=== PATIENT | female | born 1970 | race Caucasian/White ===

== ENCOUNTER 2016-11-17 17:29 | Emergency (ER) | payer MEDICARE ==
[~2016-11-17] VITALS: Ht 167.6 cm; Wt 88.5 kg
[~2016-11-17 17:29] MED LIST: AMOXICILLIN500 MG PO; ASPIRIN EC81 MG PO; AZITHROMYCIN250 MG PO; COZAAR50 MG PO; DIFLUCAN150 MG PO; IBUPROFEN600 MG PO; KEFLEX500 MG PO; LANTUS SOL100 UNIT/1 SUB-Q; LIPITOR80 MG PO; NORCO 5-325 TA1 EACH PO; NOVOLOG FL100 UNIT/1 SUB-Q; PERCOCET 5-3251 EACH PO; PLAVIX75 MG PO; PROAIR HFA8.5 GM INH; ROBAXIN-750750 MG PO; TOPROL XL25 MG PO; TRAMADOL HCL50 MG PO
[2016-11-17] MEDS ORDERED: NOVOLIN R100 UNIT/1 INJ (17:51)
[2016-11-17] MEDS ORDERED: LEVEMIR100 UNIT/1 SUB-Q ×2 (17:52→18:52)
[2016-11-17] MEDS ORDERED: NOVOLOG100 UNIT/2 SUB-Q (18:52)
[2016-11-17] MEDS ORDERED: ROBAXIN-750750 MG PO (18:56)
[2016-11-17] MEDS ORDERED: CALCIUM + VITA1 EACH PO (18:59)
[2016-11-17] MEDS ORDERED: DALIRESP500 MCG PO (19:00)
[2016-11-17] MEDS ORDERED: CEROVITE SENIO1 EACH PO (19:00)
[2016-11-17] MEDS ORDERED: METAMUCIL660 GM (19:01)
[2016-11-22] MEDS ORDERED: LIPITOR80 MG PO (02:02)
[2016-11-22] MEDS ORDERED: PLAVIX75 MG PO (02:03)
[2016-11-22] MEDS ORDERED: COZAAR25 MG PO (02:03)
[2016-11-22] MEDS ORDERED: TOPROL XL25 MG PO (02:03)
[2016-11-22] MEDS ORDERED: NITROSTAT0.4 MG SL (02:04)
[2016-11-22] MEDS ORDERED: PENICILLIN V P500 MG PO (02:20)
[2016-11-22] MEDS ORDERED: TRAMADOL HCL50 MG PO (02:20)
== END 2016-11-17 19:07 | disposition home or self-care (01) ==
LOC: ED 17:29
DX: E10.9 Type 1 diabetes mellitus without complications (principal); S16.1XXA Strain of muscle, fascia and tendon at neck level, initial encounter; I10 Essential (primary) hypertension; J45.909 Unspecified asthma, uncomplicated; F17.200 Nicotine dependence, unspecified, uncomplicated; Z95.5 Presence of coronary angioplasty implant and graft; Z90.49 Acquired absence of other specified parts of digestive tract; Z88.5 Allergy status to narcotic agent; Z88.2 Allergy status to sulfonamides; Z91.040 Latex allergy status; Z79.82 Long term (current) use of aspirin; Z79.4 Long term (current) use of insulin; Z79.899 Other long term (current) drug therapy; X50.0XXA Overexertion from strenuous movement or load, initial encounter
CPT/HCPCS: 99283

== ENCOUNTER → 2016-11-22 | Emergency (ER) | payer MEDICARE ==
[~2016-11-22] VITALS: Ht 167.6 cm; Wt 88.5 kg
[~2016-11-22] MED LIST changes: +CALCIUM + VITA1 EACH PO; +CARVEDILOL3.125 MG PO; +CEROVITE SENIO1 EACH PO; +COZAAR25 MG PO; +DALIRESP500 MCG PO; +LEVEMIR100 UNIT/1 SUB-Q; +LISINOPRIL2.5 MG PO; +METAMUCIL660 GM; +NITROSTAT0.4 MG SL; +NOVOLIN R100 UNIT/1 INJ; +NOVOLOG100 UNIT/2 SUB-Q; +PENICILLIN V P500 MG PO
== END ==
LOC: ED 01:36
DX: K02.9 Dental caries, unspecified (principal); I10 Essential (primary) hypertension; J45.909 Unspecified asthma, uncomplicated; F17.200 Nicotine dependence, unspecified, uncomplicated; Z95.5 Presence of coronary angioplasty implant and graft; Z98.51 Tubal ligation status; Z90.49 Acquired absence of other specified parts of digestive tract; Z88.5 Allergy status to narcotic agent; Z88.2 Allergy status to sulfonamides; Z91.040 Latex allergy status; Z79.4 Long term (current) use of insulin; Z79.899 Other long term (current) drug therapy; Z79.82 Long term (current) use of aspirin
CPT/HCPCS: 99283

== ENCOUNTER 2017-03-01 10:17 | Emergency (ER) | payer MEDICARE, MEDICAID ==
[~2017-03-01] VITALS: Ht 167.6 cm; Wt 88.5 kg
[~2017-03-01 10:17] MED LIST changes: -CARVEDILOL3.125 MG PO; -LISINOPRIL2.5 MG PO
[2017-03-01] MEDS ORDERED: LISINOPRIL2.5 MG PO (10:27)
[2017-03-01] MEDS ORDERED: CARVEDILOL3.125 MG PO (10:28)
[2017-03-01] MEDS ORDERED: NORCO 5-325 TA1 EACH PO (16:18)
--- NOTE | 2017-03-01 23:00 | EKG ---
[facility] [address] [facility] [place] [address] Signed Normal sinus rhythm Rightward axis Possible Inferior infarct , age undetermined Anterior infarct , age undetermined Abnormal ECG No previous ECGs available Confirmed by RADHA FOFANA MD ([id number]) on 03/01/2017 11:00:01 PM Electronically Signed By: RADHA FOFANA MD 03/01/170 PATIENT NAME: MARY MERINO Electrocardiogram DATE OF : 70 PHYSICIAN: RADHA FOFANA MD REPORT #: [id number] REPORT IS CONFIDENTIAL AND NOT TO BE RELEASED WITHOUT AUTHORIZATION
== END 2017-03-01 16:26 | disposition home or self-care (01) ==
LOC: ED 10:17
DX: R07.2 Precordial pain (principal); R91.8 Other nonspecific abnormal finding of lung field; E11.9 Type 2 diabetes mellitus without complications; I10 Essential (primary) hypertension; J45.909 Unspecified asthma, uncomplicated; I25.2 Old myocardial infarction; F17.200 Nicotine dependence, unspecified, uncomplicated; Z91.040 Latex allergy status; Z88.5 Allergy status to narcotic agent; Z88.2 Allergy status to sulfonamides; Z79.4 Long term (current) use of insulin; Z79.82 Long term (current) use of aspirin; Z79.899 Other long term (current) drug therapy
CPT/HCPCS: 36415; 71010; 71275; 80053; 83874; 84484; 85025; 85379; 93005; 93010; 96374; 96375; 96376; 99284; J2405; J3010; Q9967

== ENCOUNTER 2017-04-30 15:40 | Emergency (ER) | payer MEDICARE, MEDICAID ==
[~2017-04-30] VITALS: Ht 167.6 cm; Wt 88.5 kg
[~2017-04-30 15:40] MED LIST changes: +CARVEDILOL3.125 MG PO; +LISINOPRIL2.5 MG PO
--- OUTSIDE RECORDS SUMMARY | 2017-04-30 15:47 | XMS | Clinical Summary ---
Demographics + + + | Address | [address] | | | [place] [address] | + + + | Home Phone | | + + + | Preferred Language | Unknown | + + + | Marital Status | | + + + | Gnosticism Affiliation | PRE | + + + | Race | White | + + + | Ethnic Group | Not or | + + + Author + + + | Author | NON REVENUE LOCATIONS | + + + | Organization | NON REVENUE LOCATIONS | + + + | Address | Unknown | + + + | Phone | Unavailable | + + + Support + + + + + | Name | Relationship | Address | Phone | + + + + + | URI MERINO | ECON | [address] | | | | | [place] | | | | | [address] | | + + + + + | KELLY MERINO | ECON | Unknown | | + + + + + Care Team Providers + +------+ + | Care Grab Jack Man Name | Role | Phone | + +------+ + | Crissy Santoyo PA-C | PP | Unavailable | + +------+ + Source Comments OMAR is fully live on both [facility] and [facility] InPatient.[facility] Allergies + + + + + + | Active Allergy | Reactions | Severity | Noted | Comments | | | | | Date | | + + + + + + | Codeine | Nausea and Vomiting | | 09/18/19 | | | | | | 13 | | + + + + + + | Morphine | Nausea and Vomiting | | 09/18/19 | | | | | | 13 | | + + + + + + | Sulfa (Sulfonamide | Nausea | | 04/16/19 | | | Antibiotics) | | | 14 | | + + + + + + Current Medications + + + +---------+------+------+-------+ | Prescription | Sig. | Disp. | Refills | Star | End | Statu | | | | | | t | Date | s | | | | | | Date | | | + + + +---------+------+------+-------+ | ALBUTEROL INHL | Inhale as needed. | | | | | Activ | | | | | | | | e | + + + +---------+------+------+-------+ | gabapentin 300 mg | Take 1 capsule by | 90 | 3 | 10/2 | | Activ | | Oral | mouth three times | capsule | | 5/20 | | e | | capsuleIndications: | daily. Indications: | | | 13 | | | | Neuropathic Pain | Neuropathic Pain | | | | | | + + + +---------+------+------+-------+ | tiZANidine 2 mg | Take 1 tablet by | 40 | 0 | 11/1 | | Activ | | oral | mouth every twelve | tablet | | 3/20 | | e | | tabletIndications: | hours as needed | | | 13 | | | | Muscle Spasm | (muscle spasms). | | | | | | | | Max: 36 mg / day. | | | | | | + + + +---------+------+------+-------+ | gabapentin 100 mg | Take 1 capsule by | 60 | 0 | 02/1 | | Activ | | oral capsule | mouth three times | capsule | | 3/20 | | e | | | daily as needed. | | | 14 | | | + + + +---------+------+------+-------+ | lidocaine | Can be applied for | 2 patch | 2 | 02/1 | | Activ | | (LIDODERM) 5 %(700 | up to 18 hours a day | | | 3/20 | | e | | mg/patch) topical | on your back. | | | 14 | | | | adhesive | | | | | | | | patch,medicated | | | | | | | + + + +---------+------+------+-------+ | oxyCODONE, | Take 4 tablets by | 360 | 0 | 02/1 | | Activ | | immediate release, 5 | mouth every 8 hours | tablet | | 4/20 | | e | | mg oral | as needed for severe | | | 14 | | | | tabletIndications: | pain. | | | | | | | Neuropathic Pain | | | | | | | + + + +---------+------+------+-------+ | insulin aspart 100 | Inject under the | | | | | Activ | | unit/mL | skin (SUBC) three | | | | | e | | subcutaneous insulin | times daily before | | | | | | | pen | meals. Up to 40 | | | | | | | | units daily | | | | | | + + + +---------+------+------+-------+ | LEVEMIR 100 | | | | 08/2 | | Activ | | unit/mL subcutaneous | | | | 8/20 | | e | | solution | | | | 16 | | | + + + +---------+------+------+-------+ | atorvastatin 10 mg | | | | 09/0 | | Activ | | oral tablet | | | | 7/20 | | e | | | | | | 16 | | | + + + +---------+------+------+-------+ | ONETOUCH ULTRA | USE TO TEST BLOOD | | 10 | 08/0 | | Activ | | TEST strip | GLUCOSE 4 XD | | | 3/20 | | e | | | | | | 16 | | | + + + +---------+------+------+-------+ | DULoxetine 30 mg | | | | 09/0 | | Activ | | oral capsule,delayed | | | | 20 | | e | | release(DR/EC) | | | | 16 | | | + + + +---------+------+------+-------+ | gemfibrozil 600 mg | | | | 09/0 | | Activ | | oral tablet | | | | 720 | | e | | | | | | 16 | | | + + + +---------+------+------+-------+ | losartan 50 mg | | | | 08/3 | | Activ | | oral tablet | | | | 20 | | e | | | | | | 16 | | | + + + +---------+------+------+-------+ | metoprolol | | | | 09/0 | | Activ | | succinate 25 mg oral | | | | 7/20 | | e | | tablet extended | | | | 16 | | | | release 24 hr | | | | | | | + + + +---------+------+------+-------+ | EFFIENT 10 mg oral | | | | 09/0 | | Activ | | tablet | | | | 7/20 | | e | | | | | | 16 | | | + + + +---------+------+------+-------+ | LYRICA 75 mg oral | TK ONE C PO BID | | 5 | 08/0 | | Activ | | capsule | | | | 3/20 | | e | | | | | | 16 | | | + + + +---------+------+------+-------+ | Insulin | | | 5 | 08/0 | | Activ | | Syringe-Needle U-100 | | | | 3/20 | | e | | 1 mL 29 gauge x | | | | 16 | | | | 7/16" syringe | | | | | | | + + + +---------+------+------+-------+ Active Problems + + + | Problem | Noted Date | + + + | Disorder of SI (sacroiliac) joint | 04/16/2013 | + + + | Lumbar post-laminectomy syndrome | 02/27/2013 | + + + | Lumbar radiculopathy | 12/22/2012 | + + + Family History + + +------+ + | Medical History | Relation | Name | Comments | + + +------+ + | Allergies | Father | | | + + +------+ + | Arthritis | Father | | | + + +------+ + | Arthritis | Grandmoth | | | | | er | | | + + +------+ + | Asthma | Grandmoth | | | | | er | | | + + +------+ + | Depression | Grandmoth | | | | | er | | | + + +------+ + | Heart Disease | Grandmoth | | | | | er | | | + + +------+ + | Arthritis | Maternal | | | | | Grandmoth | | | | | er | | | + + +------+ + | Heart Disease | Maternal | | | | | Grandmoth | | | | | er | | | + + +------+ + | Hypertension | Maternal | | | | | Grandmoth | | | | | er | | | + + +------+ + | Arthritis | Mother | | | + + +------+ + | Asthma | Mother | | | + + +------+ + | Depression | Mother | | | + + +------+ + | Diabetes | Mother | | | + + +------+ + | Heart Disease | Mother | | | + + +------+ + | Hypertension | Mother | | | + + +------+ + | Thyroid | Mother | | | + + +------+ + | Allergies | Sister | | | + + +------+ + | Asthma | Sister | | | + + +------+ + | Blood Disease | Sister | | | + + +------+ + | Depression | Sister | | | + + +------+ + + +------+--------+ + | Relation | Name | Status | Comments | + +------+--------+ + | Father | | | | + +------+--------+ + | Grandmother | | | | + +------+--------+ + | Maternal Grandmother | | | | + +------+--------+ + | Mother | | | | + +------+--------+ + | Sister | | | | + +------+--------+ + Social History + + + +--------+------+ | Tobacco Use | Types | Packs/Day | Years | Date | | | | | Used | | + + + +--------+------+ | Current Every Day | Cigarettes | 0.5 | 20 | | | Smoker | | | | | + + + +--------+------+ + +---+---+---+ | Smokeless Tobacco: | | | | | Never Used | | | | + +---+---+---+ + + +---------+ + | Alcohol Use | Drinks/We | oz/Week | Comments | | | ek | | | + + +---------+ + | No | 0 | 0.0 | | | | Standard | | | | | drinks or | | | | | | | | | | equivalen | | | | | t | | | + + +---------+ + + + + | Sex Assigned at | Date Recorded | | | | + + + | Not on file | | + + + Last Filed Vital Signs + + + + | Vital Sign | Reading | Time Taken | + + + + | Blood Pressure | 118/78 | 11/10/2015 3:55 PM PDT | + + + + | Pulse | 78 | 11/10/2015 3:55 PM PDT | + + + + | Temperature | 36.7 C (98.1 F) | 11/10/2015 3:55 PM PDT | + + + + | Respiratory Rate | 20 | 04/30/2013 2:25 PM PST | + + + + | Oxygen Saturation | 98% | 04/30/2013 2:25 PM PST | + + + + | Inhaled Oxygen | - | - | | Concentration | | | + + + + | Weight | 91.6 kg (202 lb) | 11/10/2015 3:55 PM PDT | + + + + | Height | 167.6 cm (5' 6") | 11/10/2015 3:55 PM PDT | + + + + | Body Mass Index | 32.6 | 11/10/2015 3:55 PM PDT | + + + + Plan of Treatment + + + + + | Health Maintenance | Due Date | Last Done | Comments | + + + + + | INFLUENZA VACCINE | | | | | (FLU SHOT) | 7 | | | + + + + + Implants + +------+--------+ +--------+--------+--------+ | Implanted | Type | Area | Manufacture | Device | Expira | Model | | | | | r | | tion | / | | | | | | Identi | Date | Serial | | | | | | fier | | / Lot | + +------+--------+ +--------+--------+--------+ | BimodalImplanted: Qty: 1 on | | N/A: | BALWINDER | | 01/01/ | 2101-1 | | 12/23/2012 by Sivakumar Tanner | | Spine | | | 2013 | 905 / | | MD David | | | | | | /[id number] | | | | | | | | 014 | + +------+--------+ +--------+--------+--------+ | Vitoss BimodalImplanted: Qty: | | N/A: | BALWINDER | | 03/03/ | 2101-1 | | 1 on 12/23/2012 by Antonio, | | Spine | | | 2013 | 910 / | | Adama Rojo MD | | | | | | /[id number] | | | | | | | | 008 | + +------+--------+ +--------+--------+--------+ | Aria [id number] | | Bilate | BALWINDER | | | [id number] | | DegreeImplanted: Qty: 1 on | | ral: | | | | / | | 12/23/2012 by Adama Alvarez, | | Neck | | | | | | MD | | | | | | | + +------+--------+ +--------+--------+--------+ | Screw Renetta 3 Ti Polyaxial 7.5 | | N/A: | BALWINDER | | | [id number] | | X 35 Mm - [id number]: | | Spine | | | | 535 / | | Qty: 1 on 12/23/2012 by | | | | | | / | | Adama Alvarez MD | | | | | | | + +------+--------+ +--------+--------+--------+ | Screw Renetta 3 Ti Polyaxial 6.5 | | N/A: | BALWINDER | | | [id number] | | X 45 Mm - [id number]: | | Spine | | | | 545 / | | Qty: 1 on 12/23/2012 by | | | | | | / | | Adama Alvarez MD | | | | | | | + +------+--------+ +--------+--------+--------+ | Screw Renetta 3 Ti Polyaxial 6.5 | | N/A: | BALWINDER | | | [id number] | | X 40 Mm - [id number]: | | Spine | | | | 540 / | | Qty: 3 on 12/23/2012 by | | | | | | / | | Adama Alvarez MD | | | | | | | + +------+--------+ +--------+--------+--------+ | Screw Renetta 3 Ti Polyaxial 6.5 | | N/A: | BALWINDER | | | [id number] | | X 35 Mm - [id number]: | | Spine | | | | 535 / | | Qty: 1 on 12/23/2012 by | | | | | | / | | Adama Alvarez MD | | | | | | | + +------+--------+ +--------+--------+--------+ | Screw Renetta 3 Ti Polyaxial 4.5 | | N/A: | BALWINDER | | | [id number] | | X 40 Mm - [id number]: | | Spine | | | | 540 / | | Qty: 2 on 12/23/2012 by | | | | | | / | | Adama Alvarez MD | | | | | | | + +------+--------+ +--------+--------+--------+ | Julio Cesar Renetta 3 Rad 6 X 90mm - | | N/A: | BALWINDER | | | [id number] | | [id number]: Qty: 2 on | | Spine | | | | 90 / / | | 12/23/2012 by Adama Alvarez, | | | | | | | | | | | | | | | + +------+--------+ +--------+--------+--------+ | Cap Renetta 3 Ti Calixto - | | | BALWINDER | | | [id number] | | [id number]: Amauriy: 8 on | | | | | | 00 / / | | 12/23/2012 by Adama Alvarez, | | | | | | | | MD | | | | | | | + +------+--------+ +--------+--------+--------+ Results Not on filefrom Last 3 Months
--- OUTSIDE RECORDS SUMMARY | 2017-04-30 15:47 | XMS | Clinical Summary ---
Demographics + + + | Address | [address] | | | [place] [address] | + + + | Home Phone | | + + + | Preferred Language | Unknown | + + + | Marital Status | | + + + | Mandaeism Affiliation | PRE | + + + [...] | URI MERINO | ECON | [address] | | | | | [place] | | | | | [address] | | + + + + + | KELLY MERINO | ECON | Unknown | | + + + + + Care Team Providers + +------+ + | Care Rail Splitter Name | Role | Phone | + +------+ + | Crissy Santoyo PA-C | PP | Unavailable | + +------+ + Source Comments [facility] and [facility] In[facility] Allergies + + + + + + [...] 008 | + +------+--------+ +--------+--------+--------+ | Aria [id number] | | Bilate | BALWINDER | | | [id number] | | DegreeImplanted: Qty: 1 on | | ral: | | | | / | | 12/23/2012 by Adama Alvarez, | | Neck | | | | | | MD | | | | | | | + +------+--------+ +--------+--------+--------+ | Screw Renetta 3 Ti Polyaxial 7.5 | | N/A: | BALWINDER | | | [id number] | | X 35 Mm - [id number]: | | Spine | | | | 535 / | | Qty: 1 on 12/23/2012 by | | | | | | / | | Adama Alvarez MD | | | | | | | + +------+--------+ +--------+--------+--------+ | Screw Renetta 3 Ti Polyaxial 6.5 | | N/A: | BALWINDER | | | [id number] | | X 45 Mm - [id number]: | | Spine | | | | 545 / | | Qty: 1 on 12/23/2012 by | | | | | | / | | Adama Alvarez MD | | | | | | | + +------+--------+ +--------+--------+--------+ | Screw Renetta 3 Ti Polyaxial 6.5 | | N/A: | BALWINDER | | | [id number] | | X 40 Mm - [id number]: | | Spine | | | | 540 / | | Qty: 3 on 12/23/2012 by | | | | | | / | | Adama Alvarez MD | | | | | | | + +------+--------+ +--------+--------+--------+ | Screw Renetta 3 Ti Polyaxial 6.5 | | N/A: | BALWINDER | | | [id number] | | X 35 Mm - [id number]: | | Spine | | | | 535 / | | Qty: 1 on 12/23/2012 by | | | | | | / | | Adama Alvarez MD | | | | | | | + +------+--------+ +--------+--------+--------+ | Screw Renetta 3 Ti Polyaxial 4.5 | | N/A: | BALWINDER | | | [id number] | | X 40 Mm - [id number]: | | Spine | | | | 540 / | | Qty: 2 on 12/23/2012 by | | | | | | / | | Adama Alvarez MD | | | | | | | + +------+--------+ +--------+--------+--------+ | Julio Cesar Renetta 3 Rad 6 X 90mm - | | N/A: | BALWINDER | | | [id number] | | [id number]: Qty: 2 on | | Spine | | | | 90 / / | | 12/23/2012 by Adama Alvarez, | | | | | | | | | | | | | | | + +------+--------+ +--------+--------+--------+ | Cap Renetta 3 Ti Calixto - | | | BALWINDER | | | [id number] | | [id number]: Amauriy: 8 on | | | | | | 00 / / | | 12/23/2012 by Adama Alvarez, | | | | | | | | MD | | | | | | | + +------+--------+ +--------+--------+--------+ Results Not on filefrom Last 3 Months
[2017-04-30] MEDS ORDERED: COZAAR25 MG PO (16:10)
[2017-04-30] MEDS ORDERED: XANAX0.5 MG PO (16:23)
[2017-04-30] MEDS ORDERED: NORCO 10-325 T1 EACH PO (16:23)
== END 2017-04-30 16:28 | disposition home or self-care (01) ==
LOC: ED 15:40
DX: F41.9 Anxiety disorder, unspecified (principal); G47.00 Insomnia, unspecified; E11.9 Type 2 diabetes mellitus without complications; I10 Essential (primary) hypertension; F17.200 Nicotine dependence, unspecified, uncomplicated; Z88.8 Allergy status to other drugs, medicaments and biological substances; Z91.040 Latex allergy status; Z88.5 Allergy status to narcotic agent; Z88.2 Allergy status to sulfonamides; Z79.4 Long term (current) use of insulin; Z79.82 Long term (current) use of aspirin; Z79.899 Other long term (current) drug therapy
CPT/HCPCS: 99283

== ENCOUNTER 2017-09-04 11:23 | Emergency (ER) | payer MEDICARE, MEDICAID ==
[~2017-09-04] VITALS: Ht 167.6 cm; Wt 88.5 kg
[~2017-09-04 11:23] MED LIST changes: +NORCO 10-325 T1 EACH PO; +XANAX0.5 MG PO
[2017-09-04] MEDS ORDERED: CILOXAN5 ML OD (12:35)
== END 2017-09-04 12:44 | disposition home or self-care (01) ==
LOC: ED 11:23
DX: H10.9 Unspecified conjunctivitis (principal); E11.9 Type 2 diabetes mellitus without complications; I10 Essential (primary) hypertension; J45.909 Unspecified asthma, uncomplicated; I25.2 Old myocardial infarction; Z87.891 Personal history of nicotine dependence; Z91.040 Latex allergy status; Z88.8 Allergy status to other drugs, medicaments and biological substances; Z88.5 Allergy status to narcotic agent; Z88.2 Allergy status to sulfonamides; Z79.4 Long term (current) use of insulin
CPT/HCPCS: 99283

== ENCOUNTER 2017-10-14 04:59 | Emergency (ER) | payer MEDICARE, MEDICAID ==
[~2017-10-14] VITALS: Ht 167.6 cm; Wt 88.5 kg
--- OUTSIDE RECORDS SUMMARY | ~2017-10-14 | XMS | Clinical Summary ---
Demographics + + + | Address | [address] | | | [place] [address] | + + + | Home Phone | | + + + | Preferred Language | Unknown | + + + | Marital Status | | + + + | Jew Affiliation | Unknown | + + + | Race | Unknown | + + + | Ethnic Group | Unknown | + + + Author + + + | Author | [facility] | | | and [place] | + + + | Organization | [facility] | | | and [place] | + + + | Address | Unknown | + + + | Phone | Unavailable | + + + Support + + + + + | Name | Relationship | Address | Phone | + + + + + | Dustin Merino | ECON | [address] | | | | | Apt [place] | | | | | [address] | | + + + + + | Bebe Merino | ECON | Unknown | + | + + + + + Care Team Providers + +------+ + | Care Slime Plant Operator Name | Role | Phone | + +------+ + | Ki Senior NP | PP | | + +------+ + Allergies + + + + + + | Active Allergy | Reactions | Severity | Noted | Comments | | | | | Date | | + + + + + + | Codeine | | | 02/14/20 | | | | | | 17 | | + + + + + + | Latex | Sensitivity | Low | 02/14/20 | | | | | | 17 | | + + + + + + | Sulfa Antibiotics | | | 02/14/20 | | | | | | 17 | | + + + + + + Current Medications + + +--------+---------+------+------+-------+ | Prescription | Sig. | Disp. | Refills | Star | End | Statu | | | | | | t | Date | s | | | | | | Date | | | + + +--------+---------+------+------+-------+ | insulin aspart | Inject 28 Units | | | | | Activ | | (NOVOLOG) 100 | under the skin 3 | | | | | e | | units/mL injection | times daily (before | | | | | | | | meals). | | | | | | + + +--------+---------+------+------+-------+ | insulin detemir | Inject 32 Units | | | | | Activ | | (LEVEMIR) 100 | under the skin 2 | | | | | e | | units/mL injection | times daily. | | | | | | | (vial) | | | | | | | + + +--------+---------+------+------+-------+ | tiZANidine | Take 4 mg by mouth 3 | | | | | Activ | | (ZANAFLEX) 4 mg | times daily as | | | | | e | | tablet | needed for Muscle | | | | | | | | spasms. | | | | | | + + +--------+---------+------+------+-------+ | aspirin 81 mg EC | Take 81 mg by mouth | | | | | Activ | | tablet | Daily. | | | | | e | + + +--------+---------+------+------+-------+ | oxyCODONE 10 MG | Take 10 mg by mouth | | | | | Activ | | TABS | every 6 hours as | | | | | e | | | needed for Pain. | | | | | | + + +--------+---------+------+------+-------+ | carvedilol (COREG) | Take 1 tablet by | 60 | 1 | 12/1 | | Activ | | 3.125 mg tablet | mouth 2 times daily | tablet | | 5/20 | | e | | | (with breakfast & | | | 17 | | | | | dinner). | | | | | | + + +--------+---------+------+------+-------+ | clopidogrel | Take 1 tablet by | 30 | 0 | 12/1 | | Activ | | (PLAVIX) 75 mg | mouth Daily. | tablet | | 6/20 | | e | | tablet | | | | 17 | | | + + +--------+---------+------+------+-------+ | lisinopril | Take 1 tablet by | 30 | 1 | 12/1 | | Activ | | (PRINIVIL,ZESTRIL) | mouth Daily. | tablet | | 6/20 | | e | | 2.5 MG tablet | | | | 17 | | | + + +--------+---------+------+------+-------+ | nitroglycerin | Place 1 tablet under | 20 | 0 | 12/1 | | Activ | | (NITROSTAT) 0.4 mg | the tongue every 5 | tablet | | 5/20 | | e | | SL tablet | minutes as needed | | | 17 | | | | | for Chest pain. | | | | | | + + +--------+---------+------+------+-------+ | atorvaSTATin | Take 1 tablet by | | | 12/1 | | Activ | | (LIPITOR) 40 mg | mouth nightly. | | | 5/20 | | e | | tablet | | | | 17 | | | + + +--------+---------+------+------+-------+ Active Problems + + + | Problem | Noted Date | + + + | ST elevation myocardial infarction involving left anterior | 02/13/2017 | | descending (LAD) coronary artery (HCC) | | + + + | Chest pain at rest | 02/13/2017 | + + + | Elevated troponin | 02/13/2017 | + + + | Type 2 diabetes mellitus with other specified complication (HCC) | 02/13/2017 | + + + | Essential hypertension | 02/13/2017 | + + + Social History + +-------+ [...] + + + | Blood Pressure | 103/65 | 02/15/2017720 PST | + + + + | Pulse | 84 | 02/15/2017720 PST | + + + + | Temperature | 36.3 C (97.3 F) | 02/15/20171130 PST | + + + + | Respiratory Rate | 18 | 02/15/20171130 PST | + + + + | Oxygen Saturation | 94% | 02/15/2017720 PST | + + + + | Inhaled Oxygen | - | - | | Concentration | | | + + + + | Weight | 91.8 kg (202 lb 6.1 | 02/15/2017599 PST | | | oz) | | + + + + | Height | 167.6 cm (5' 6") | 02/14/2017 1403 PST | + + + + | Body Mass Index | 32.67 | 02/15/2017599 PST | + + + + Plan of Treatment + + + + + | Health Maintenance | Due Date | Last Done | Comments | + + + + + | Diabetic Eye Exam | | | | | (Bi-Annually) | 9 | | | + + + + + | Diabetic Foot Exam | | | | | | 9 | | | + + + + + | Vaccine: | | | | | Dtap/Tdap/Td (1 - | 0 | | | | Tdap) | | | | + + + + + | Cervical Cancer | | | | | Screening (Pap) | 1 | | | + + + + + | Hemoglobin A1c Q3 | | 02/14/2017 | | | Months | 8 | | | + + + + + | Vaccine: Influenza | | | | | (#1) | 8 | | | + + + + + | Vaccine: | Completed | 06/24/2013 | | | Pneumococcal 19-64 | | | | | (PPSV23 only) Medium | | | | | Risk | | | | + + + + + Results Not on filefrom Last 3 Months Insurance + +--------+ +--------+ +---------+ | Payer | Benefi | Subscriber | Type | Phone | Address | | | t Plan | ID | | | | | | / | | | | | | | Group | | | | | + +--------+ +--------+ +---------+ | MEDICARE | MEDICA | [id number] | Medica | [phone] | | | RE | | re | [phone] | | | | PART A | | | | | | | AND B | | | | | + +--------+ +--------+ +---------+ | [place] | MEDICA | [id number] | Medica | [phone] | | | ID | | id | [phone] | | | | [place] | | | | | + +--------+ +--------+ +---------+ + +--------+ +--------+ + + | Guarantor Name | Accoun | Relation to | Date | Phone | Billing Address | | | t Type | Patient | of | | | | | | | | | | + +--------+ +--------+ + + | MARY MERINO | Person | Self [birth year] Home: | [address] | | | al/Fam | | 1971 | [phone] [address] [place], | | | [place] | | | [address] | [place] [address] | + +--------+ +--------+ + +
--- OUTSIDE RECORDS SUMMARY | ~2017-10-14 | XMS | Encounter Summary ---
Demographics + + + | Address | [address] | | | [place] [address] | + + + | Home Phone | | + + + | Preferred Language | Unknown | + + + | Marital Status | | + + + | Jehovah'S Witness Affiliation | PRE | + + + | Race | White | + + + | Ethnic Group | Not or | + + + Author + + + | Author | [facility] | + + + | Organization | [facility] | + + + | Address | Unknown | + + + | Phone | Unavailable | + + + Support + + + + + | Name | Relationship | Address | Phone | + + + + + | URI MERINO | ECON | [address] | | | | | #[address] | | | | | [address] | | + + + + + | KELLY MERINO | ECON | Unknown | | + + + + + Care Team Providers + +------+ + | Care Occupational Therapy Professor Name | Role | Phone | + +------+ + | Yuriy Cardenas PA-C | PCP | | + +------+ + Reason for Visit + + + | Reason | Comments | + + + | DM - Diabetes | | | mellitus | | + + + Encounter Details +--------+ + + + + | Date | Type | Department | Care Team | Description | +--------+ + + + + | 10/08/ | Telephone | [facility] - [facility] | Yuriy Cardenas, | DM - Diabetes | | 2018 | | Medicine at | PA-C [address] | mellitus | | | | [place] [address] | | | | | [address] [place] | [place], [place] | | | | | [place], [place] | [address] | | | | | [address] | [phone] | | | | | [phone] | | | +--------+ + + + [...] on file | | + + + as of this encounter Plan of Treatment +--------+---------+ + + + | Date | Type | Specialty | Care Team | Description | +--------+---------+ + + + | 10/25/ | Office | Hematology & | Kirk Sawyer, | | | 2017 | Visit | Oncology | [address] | | | | | | [place] | | | | | | [address] | | | | | | [phone] | | | | | | | | +--------+---------+ + + + | 11/01/ | Office | Cardiology | Jefferson Guerra MD | | | 2017 | Visit | | [address] | | | | | | [address] | | | | | | [place] | | | | | | [address] | | | | | | [phone] | | | | | | | | +--------+---------+ + + + as of this encounter Visit Diagnoses Not on filein this encounter"
--- OUTSIDE RECORDS SUMMARY | ~2017-10-14 | XMS | Encounter Summary ---
Demographics + + + | Address | [address] | | | [place] [address] | + + + | Home Phone | | + + + | Preferred Language | Unknown | + + + | Marital Status | | + + + | Hoahaoism Affiliation | PRE | + + + | Race | White | + + + | Ethnic Group | Not or | + + + Author + + + | Author | [facility] | + + + | Organization | [facility] | + + + | Address | Unknown | + + + | Phone | Unavailable | + + + Support + + + + + | Name | Relationship | Address | Phone | + + + + + | URI MERINO | ECON | [address] | | | | | #[address] | | | | | [address] | | + + + + + | KELLY MERINO | ECON | Unknown | | + + + + + Care Team Providers + +------+ + | Care Playground Worker Name | Role | Phone | + +------+ + | Yuriy Cardenas PA-C | PCP | | + +------+ + Reason for Visit + + + | Reason | Comments | + + + | Car Gen Record | | | Review | | + + + Encounter Details +--------+ + + + + | Date | Type | Department | Care Team | Description | +--------+ + + + + | 09/26/ | Abstract | Cardiology General | Unknown . | Car Gen Record | | 2018 | | at [facility] [address] | | Review | | | | Robert Faiza Mailcode: | | | | | | [facility] | | | | | | [facility], | | | | | | 9th Floor [place], | | | | | | [place] [address] | | | | | | [phone] | | | +--------+ + + + [...] + + + as of this encounter Progress Notes Linda Bethea - 09/26/2017 3:45 PM PDTFormatting of this note may be different from the orig inal. General Cardiology New Patient Record Check List Procedure Where/Date Date requested Report received? Y/N, Where? Imaging received? CD/ IMPAX/Not Available Comments Referring Provider notes PCP N/A Referral Last EKG (REPORT ONLY) Note: Tracings needed if being seen for abnormal ECG [place] 07/2017 Epic N/A Last Echo images and report [facility] 06/2017 Attached Last Stress Test images and report n/a n/a Last Cardiac Catheterization images and report Kris Campos 06/2013 Cew Last Holter or Event monitor report only n/a n/a N/A Labs (BMP, Lipids, TSH, Hemoglobin A1C in last 6 months) [facility] 07/2017 attached N/A Last Device Check (schedule device check if due) n/a n/a N/A Last Cardiac MRI report and images if available n/a n/a Cardiac CTA report and images if available n/a n/a Patient Preferred Lab N/A N/A N/A Additional Comments: in this encounter Plan of Treatment +--------+---------+ + + + | Date | Type | Specialty | Care Team | Description | +--------+---------+ + + + | 10/25/ | Office | Hematology & | Kirk Sawyer, | | | 2017 | Visit | Oncology | MD [address] | | | | | | [place], [place] | | | | | | [address] | | | | | | [phone] | | | | | | | | +--------+---------+ + + + | 11/01/ | Office | Cardiology | Jefferson Guerra MD | | | 2017 | Visit | | [address] | | | | | | [address] | | | | | | [place], [place] | | | | | | [address] | | | | | | [phone] | | | | | | | | +--------+---------+ + + + as of this encounter Visit Diagnoses Not on filein this encounter"
--- OUTSIDE RECORDS SUMMARY | ~2017-10-14 | XMS | Clinical Summary ---
Demographics + + + | Address | [address] | | | [place] [address] | + + + | Home Phone | | + + + | Preferred Language | Unknown | + + + | Marital Status | | + + + | Yarsanism Affiliation | 1013 | + + + | Race | Unknown | + + + | Ethnic Group | Unknown | + + + Author + + + | Author | [facility] | + + + | Organization | [facility] | + + + | Address | Unknown | + + + | Phone | Unavailable | + + + Support + + + + + | Name | Relationship | Address | Phone | + + + + + | Dustin Merino | ECON | Unknown | | + + + + + | Mary Merino | ECON | [address] | | | | | [place] | | | | | [address] | | + + + + + | Arden Merino | ECON | Unknown | | + + + + + Care Team Providers + +------+ + | Care Boat Mechanic Name | Role | Phone | + +------+ + | Yuriy Cardenas PA-C | PP | | + +------+ + Allergies + + + + + + | Active Allergy | Reactions | Severity | Noted | Comments | | | | | Date | | + + + + + + | Codeine | Nausea and Vomiting | Low | 12/21/19 | | | | | | 15 | | + + + + + + | Latex | Hives, Shortness of | High | 04/25/19 | Blisters | | | Breath | | 15 | | + + + + + + | Lisinopril | Cough | Low | 03/13/19 | | | | | | 18 | | + + + + + + | Morphine | Nausea and Vomiting | Low | 10/31/19 | | | | | | 13 | | + + + + + + | Sulfa Antibiotics | Rash | Medium | 12/21/19 | | | | | | 15 | | + + + + + + Current Medications + + +---------+---------+------+------+-------+ | Prescription | Sig. | Disp. | Refills | Star | End | Statu | | | | | | t | Date | s | | | | | | Date | | | + + +---------+---------+------+------+-------+ | aspirin 81 MG | Take 81 mg by mouth | | | | | Activ | | tablet | daily. Last dose | | | | | e | | | Saturday due to | | | | | | | | lung biopsy today | | | | | | + + +---------+---------+------+------+-------+ | albuterol | Inhale 2 puffs into | | | | | Activ | | (PROVENTIL | the lungs every 4 | | | | | e | | HFA;VENTOLIN HFA) | (four) hours as | | | | | | | 108 (90 BASE) | needed for Wheezing. | | | | | | | MCG/ACT inhaler | | | | | | | + + +---------+---------+------+------+-------+ | pregabalin | Take 75 mg by mouth | | | | | Activ | | (LYRICA) 75 MG | 3 (three) times | | | | | e | | capsule | daily. | | | | | | + + +---------+---------+------+------+-------+ | nitroGLYCERIN | Place 1 tablet under | 90 | 0 | 05/2 | | Activ | | (NITROSTAT) 0.4 MG | the tongue every 5 | tablet | | 4/20 | | e | | SL tablet | (five) minutes as | | | 17 | | | | | needed for Chest | | | | | | | | pain. | | | | | | + + +---------+---------+------+------+-------+ | metoprolol | Take 1 tablet by | 30 | 11 | 01/1 | 01/ | Activ | | (TOPROL-XL) 25 MG 24 | mouth nightly. | tablet | | 0/20 | 0/20 | e | | hr tablet | | | | 18 | 19 | | + + +---------+---------+------+------+-------+ | clopidogrel | Take 1 tablet by | 30 | 11 | 01/1 | | Activ | | (PLAVIX) 75 MG | mouth daily. | tablet | | 0/20 | | e | | tablet | | | | 18 | | | + + +---------+---------+------+------+-------+ | gemfibrozil | Take 1 tablet by | 60 | 11 | 01/1 | 01/1 | Activ | | (LOPID) 600 MG | mouth 2 (two) times | tablet | | 0/20 | 0/20 | e | | tablet | daily before meals. | | | 18 | 19 | | + + +---------+---------+------+------+-------+ | potassium chloride | Take 1 capsule by | 30 | 11 | 01/1 | 01/1 | Activ | | (MICRO-K) 10 MEQ CR | mouth daily. | capsule | | 0/20 | 0/20 | e | | capsule | | | | 18 | 19 | | + + +---------+---------+------+------+-------+ | isosorbide | Take 1 tablet by | 30 | 11 | 04/0 | 04/0 | Activ | | mononitrate (IMDUR) | mouth daily. TO | tablet | | 2/20 | 2/20 | e | | 60 MG 24 hr | REPLACE IMDUR 30 MG | | | 18 | 19 | | | tabletIndications: | | | | | | | | Coronary artery | | | | | | | | disease involving | | | | | | | | sitka coronary | | | | | | | | artery of [place] | | | | | | | | heart with angina | | | | | | | | pectoris (HCC) | | | | | | | + + +---------+---------+------+------+-------+ | furosemide (LASIX) | Take 1 tablet by | 6 | 0 | 05/0 | | Activ | | 20 MG tablet | mouth 2 (two) times | tablet | | 4/20 | | e | | | daily for 3 days. | | | 18 | | | + + +---------+---------+------+------+-------+ | potassium chloride | Take 2 tablets by | 18 | 0 | 05/0 | | Activ | | (K-DUR) 10 MEQ | mouth 2 times per | tablet | | 1/20 | | e | | tablet | day for first 3 | | | 18 | | | | | days, then 1 tablet | | | | | | | | by mouth 2 times per | | | | | | | | day for the next 3 | | | | | | | | days then stop | | | | | | + + +---------+---------+------+------+-------+ | traMADol (ULTRAM) | Take 1 tablet by | 30 | 0 | 05/0 | | Activ | | 50 MG tablet | mouth every 4 (four) | tablet | | 1/20 | | e | | | hours as needed. | | | 18 | | | + + +---------+---------+------+------+-------+ | insulin detemir | Inject 40 Units into | 10 mL | 0 | 05/0 | | Activ | | (LEVEMIR) 100 | the skin nightly. | | | 1/20 | | e | | UNIT/ML injection | | | | 18 | | | + + +---------+---------+------+------+-------+ | insulin lispro, | Inject 0-14 Units | 10 mL | 0 | 05/0 | 05/0 | Activ | | human, (HUMALOG) 100 | into the skin 3 | | | 1/20 | 1/20 | e | | UNIT/ML injection | (three) times daily | | | 18 | 19 | | | | before meals. High | | | | | | | | Dose AC Insulin | | | | | | | | Sliding ScaleBlood | | | | | | | | Glucose High | | | | | | | | DoseLess than | | | | | | | | 70Initiate | | | | | | | | Hypoglycemia | | | | | | | | [id number] 0 | | | | | | | | Fwsew290-8042 | | | | | | | | Iyplx269-4753 | | | | | | | | Rjviu028-5453 | | | | | | | | Biodc489-2349 | | | | | | | | [id number] | | | | | | | | Jpztw747-92428 | | | | | | | | Units>400* 14 | | | | | | | | Units | | | | | | + + +---------+---------+------+------+-------+ | insulin lispro, | Inject 0-7 Units | 10 mL | 0 | 05/0 | 05/0 | Activ | | human, (HUMALOG) 100 | into the skin | | | 03/23 | 03/23 | e | | UNIT/ML injection | Nightly. High Dose | | | 18 | 19 | | | | HS Insulin Sliding | | | | | | | | ScaleBlood Glucose | | | | | | | | High DoseLess than | | | | | | | | 70Initiate | | | | | | | | Hypoglycemia | | | | | | | | Isiguanv67-738 | | | | | | | | 0 Qesza783-1093 | | | | | | | | Lxdvs406-3300 | | | | | | | | Nyjqr708-2602 | | | | | | | | Mhsny938-2906 | | | | | | | | Bqedi441-5114 | | | | | | | | Cpshu229-4077 | | | | | | | | Units>400* 7 | | | | | | | | Units | | | | | | + + +---------+---------+------+------+-------+ | insulin aspart | Inject 10 Units into | 15 mL | 0 | 05/0 | | Activ | | (NOVOLOG) 100 | the skin 3 (three) | | | 1/20 | | e | | UNIT/ML | times daily before | | | 18 | | | | injectionIndications | meals. With meals | | | | | | | : Type 1 Diabetes | | | | | | | | Mellitus | | | | | | | + + +---------+---------+------+------+-------+ | oxyCODONE | Take 1 tablet by | 30 | 0 | 05/0 | | Activ | | (ROXICODONE) 15 MG | mouth every 6 (six) | tablet | | 8/20 | | e | | immediate release | hours as needed for | | | 18 | | | | tablet | Pain (6 to 7). | | | | | | + + +---------+---------+------+------+-------+ | losartan (COZAAR) | Take 1 tablet by | 90 | 3 | 07/1 | | Activ | | 25 MG tablet | mouth daily. | tablet | | 0/20 | | e | | | | | | 18 | | | + + +---------+---------+------+------+-------+ | atorvastatin | Take 1 tablet by | 90 | 3 | 09/01 | 09/01 | Activ | | (LIPITOR) 40 MG | mouth nightly. | tablet | | 04/23 | 04/23 | e | | tabletIndications: | | | | 18 | 19 | | | Coronary artery | | | | | | | | disease involving | | | | | | | | sitka coronary | | | | | | | | artery of sitka | | | | | | | | heart with angina | | | | | | | | pectoris (HCC), | | | | | | | | Angina effort (HCC) | | | | | | | + + +---------+---------+------+------+-------+ Active Problems + + + | Problem | Noted Date | + + + | Volume overload | 06/30/2017 | + + + | QT prolongation | 06/25/2017 | + + + | Acute respiratory failure with hypoxia (HCC) | 06/25/2017 | + + + | Malignant neoplasm of lower lobe of left lung (HCC) | 05/02/2017 | + + + | Bone lesion | 05/02/2017 | + + + | Cavitary lesion of lung | 03/28/2017 | + + + | Personal history of tobacco use, presenting hazards to health | 03/28/2017 | + + + | Angina effort | 07/16/2016 | + + + + + | Last Assessment & Plan: 45 yr old female with h/o CAD s/p PCI | | to pLAD- HTN, DM, HLD with angina and multiple ER visits for | | chest painLost in follow up since PCI now presents with angina on | | effort- she reports medication compliance06/23/2013- [facility] | [facility]- s/p PCI to pLAD, non obstructive disease in | | LM, Circ and RCAStress MPI 04/2015- Moderate to severe fixed | | perfusion defects in LAD territory with associated regional wall | | motion abnormality concerning for infarct or hibernating | | myocardium.05/11/2015- [facility] to severe ISR to pLAD stent, Moderate | | disease of the proximal left anterior descending arteryproximal | | to the previous stent, with insignificant FFR value of | | 0.87.Continue Losartan, Pasugrel, ASAWill add Norvasc 2.5mg daily | | and Imdur 30mg dailyNGT sl prn as neededDM not well controlled- | | lipids not well controlled- currently not taking any statins- | | Will add Atorvastatin 40mg dailyStrongly advised to stop | | smoking.Will do echo to evaluate LV function, WMA, valvesWill do | | Lipids, BMP, CBCDiscussed importance of risk factor control like | | tight DM, HTN, HLD control in management of CAD-Give risk factors | | and hx of ISR to pLAD stent and now with exertional angina | | symptoms will proceed with coronary angiogram- after discussing | | risks, benefits and alternatives to procedure- she want to | | proceed with coronary angiogram verbally expressing understanding | | of the procedure.F/u after test | + + + + + | S/P drug eluting coronary stent placement | 05/12/2015 | + + + | Precordial pain | 05/03/2015 | + + + | Coronary artery disease involving sitka coronary artery of | 05/03/2015 | | sitka heart without angina pectoris | | + + + + + | Last Assessment & Plan: 44 yr old female with h/o CAD s/p PCI | | to pLAD- HTN, DM, HLD with angina and multiple ER visits for | | chest pain06/23/2013- [facility]- s/p PCI to | | pLAD, non obstructive disease in LM, Circ and RCAStress MPI | | 04/2015- Moderate to severe fixed perfusion defects in LAD | | territory with associated regional wall motion abnormality | | concerning for infarct or hibernating myocardium.Discussed with | | patient about stress test results- management options including | | coronary angiogram- she would like to proceed with coronary | | angiogram- risks,benefits, alternatives discussed- consents to | | procedure after verbally expressing understanding risks of the | | procedure.Continue Metoprolol, Losartan will add ImdurNGT sl prn | | as neededContinue ASA, Statin, GemfibrozilDM not well controlled- | | lipids not well controlledStrongly advised to stop | | smoking.Discussed importance of risk factor control like tight | | DM, HTN, HLD control in management of CAD-F/u after test. | + + + + + | Essential hypertension | 05/03/2015 | + + + | Type 2 diabetes mellitus without complication (HCC) | 05/03/2015 | + + + | Mild intermittent asthma without complication | 05/03/2015 | + + + | Angina pectoris (HCC) | 05/03/2015 | + + + Encounters +--------+ + + + + | Date | Type | Specialty | Care Team | Description | +--------+ + + + + | 09/10/ | Refill | | Estefania Abdalla, | Medication Refill | | 2017 | | | MA | | +--------+ + + + + | 09/09/ | Refill | | Estefania Abdalla, | Medication Refill | | 2017 | | | MA | | +--------+ + + + + | 07/26/ | Orders Only | | Na Reno MD | Malignant neoplasm | | 2017 | | | | of lower lobe of | | | | | | left lung (HCC) | | | | | | (Primary Dx) | +--------+ + + + + | 07/25/ | Office | | Na Reno MD | Malignant neoplasm | | 2017 | Visit | | | of lower lobe of | | | | | | left lung (HCC) | | | | | | (Primary Dx) | +--------+ + + + + | 07/25/ | Orders Only | | Myrna Poe CMA | | | 2017 | | | | | +--------+ + + + + from Last 3 Months Immunizations + + + + | Name | Dates Previously Given | Next Due | + + + + | Pneumococcal | 06/24/2013 | | | Polysaccharide | | | | 23-valent | | | + + + + Family History + + +------+ + | Medical History | Relation | Name | Comments | + + +------+ + | Uterine cancer | Maternal | | | | | Aunt | | | + + +------+ + | Congestive Heart | Maternal | | | | Failure | Grandmoth | | | | | er | | | + + +------+ + | Heart disease | Maternal | | | | | Grandmoth | | | | | er | | | + + +------+ + | Asthma | Mother | | | + + +------+ + | COPD | Mother | | | + + +------+ + | Congestive Heart | Mother | | | | Failure | | | | + + +------+ + | Diabetes type II | Mother | | | + + +------+ + | Heart disease | Mother | | | + + +------+ + | Hypertension | Mother | | | + + +------+ + + +------+ + + | Relation | Name | Status | Comments | + +------+ + + | Father | | Alive | healthy | + +------+ + + | Maternal Aunt | | | | + +------+ + + | Maternal Grandfather | | | | + +------+ + + | Maternal Grandmother | | | heart disease | + +------+ + + | Mother | | | COPD (smoker), CHF, DM2, A-Fib, sleep | | | | (Age | apnea., Asthma | | | | 65) | | + +------+ + + | Paternal Grandfather | | | | + +------+ + + | Paternal Grandmother | | | Alzheimers Disease | + +------+ + + Social History + +-------+ +--------+ + | Tobacco Use | Types | Packs/Day | Years | Date | | | | | Used | | + +-------+ +--------+ + | Former Smoker | | 1 | 20 | Quit: 03/25/2017 | + +-------+ +--------+ + + +---+---+---+ | Smokeless Tobacco: | | | | | Former User | | | | + +---+---+---+ + + | Tobacco Cessation: Counseling Given: Yes | | Comments: quit 1 month ago | + + + + +---------+ + | Alcohol Use [...] + + + | Blood Pressure | 130/90 | 07/25/2017 10:13 AM PDT | + + + + | Pulse | 117 | 07/25/2017 10:13 AM PDT | + + + + | Temperature | 35.8 C (96.5 F) | 07/25/2017 10:13 AM PDT | + + + + | Respiratory Rate | 16 | 07/25/2017 10:13 AM PDT | + + + + | Oxygen Saturation | 96% | 07/25/2017 10:13 AM PDT | + + + + | Inhaled Oxygen | - | - | | Concentration | | | + + + + | Weight | 89.4 kg (197 lb) | 07/25/2017 10:13 AM PDT | + + + + | Height | 165.1 cm (5' 5") | 07/25/2017 10:13 AM PDT | + + + + | Body Mass Index | 32.78 | 07/25/2017 10:13 AM PDT | + + + + Plan of Treatment +--------+---------+ + + + | Date | Type | Specialty | Care Team | Description | +--------+---------+ + + + | 10/29/ | Office | | Na Reno MD | | | 2017 | Visit | | [address] | | | | | | [place] | | | | | | [address] | | | | | | | | +--------+---------+ + + + + + + + + | Health Maintenance | Due Date | Last Done | Comments | + + + + + | Diabetic Eye Exam | | | | | | 1 | | | + + + + + | Diabetic Foot Exam | | | | | | 1 | | | + + + + + | Microalbumin | | | | | Screening | 1 | | | + + + + + | Vaccine: | | | | | Dtap/Tdap/Td (1 - | 0 | | | | Tdap) | | | | + + + + + | Cervical Cancer | | | | | Screening (Pap) | 1 | | | + + + + + | Vaccine: | | 06/24/2013 | | | Pneumococcal 19-64 | 5 | | | | Highest Risk (2 of 3 | | | | | - PCV13) | | | | + + + + + | Hemoglobin A1c | | 06/27/2017, 06/23/2017, | | | | 8 | 06/18/2017, Additional history | | | | | exists | | + + + + + | Vaccine: Influenza | | | | | (#1) | 8 | | | + + + + + Results Not on filefrom Last 3 Months Insurance + +--------+ +------+-------+ + | Payer | Benefi | Subscriber | Type | Phone | Address | | | t Plan | ID | | | | | | / | | | | | | | Group | | | | | + +--------+ +------+-------+ + | MEDICARE | MEDICA | [id number] | | | [address] | | | RE | | | | [place] [address] | | | IP-OP | | | | | + +--------+ +------+-------+ + + +--------+ +--------+ + + | Guarantor Name | Accoun | Relation to | Date | Phone | Billing Address | | | t Type | Patient | of | | | | | | | | | | + +--------+ +--------+ + + | MARY MERINO | Person | Self [birth year] Home: | [address] | | | al/Fam | | 1971 | [phone] | [address] [place] | | | [place] | | | [phone] | + +--------+ +--------+ + +
--- OUTSIDE RECORDS SUMMARY | ~2017-10-14 | XMS | Encounter Summary ---
Demographics + + + | Address | [address] | | | [place] [address] | + + + | Home Phone | | + + + | Preferred Language | Unknown | + + + | Marital Status | | + + + | Methodist Affiliation | 1013 | + + + | Race | Unknown | + + + | Ethnic Group | Unknown | + + + Author + + + | Author | [facility] | + + + | Organization | [facility] | + + + | Address | Unknown | + + + | Phone | Unavailable | + + + Support + + + + + | Name | Relationship | Address | Phone | + + + + + | Dustin Terrazas | ECON | Unknown | | + + + + + | Nancy Terrazas | ECON | [address] | | | | | [place] | | | | | [address] | | + + + + + | Arden Terrazas | ECON | Unknown | | + + + + + Care Team Providers + +------+ + | Care Engraving Press Operator Name | Role | Phone | + +------+ + | Yuriy Cardenas PA-C | PCP | | + +------+ + Encounter Details +--------+ + + + + | Date | Type | Department | Care Team | Description | +--------+ + + + + | 07/25/ | Orders Only | [facility] | Myrna Poe CMA | | | 2017 | | Pulmonology [address] | | | | | | [address] | | | | | | [place] | | | | | | [address] | | | | | | [phone] | | | +--------+ + + + + Social History + +-------+ +--------+ [...] | | + +---+---+---+ + + | Comments: quit 1 month ago | [...] + + | 10/29/ | Office | Hematology and | Na Reno MD | | | 2017 | Visit | Oncology | [address] | | | | | | [place] | | | | | | [address] | | | | | | | | +--------+---------+ + + + as of this encounter Visit Diagnoses Not on filein this encounter"
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
--- OUTSIDE RECORDS SUMMARY | ~2017-10-14 | XMS | Encounter Summary ---
Demographics + + + | Address | [address] | | | [place] [address] | + + + | Home Phone | | + + + | Preferred Language | Unknown | + + + | Marital Status | | + + + | Islam Affiliation | PRE | + + + | Race | White | + + + | Ethnic Group | Not or | + + + Author + + + | Author | [facility] | + + + | Organization | [facility] | + + + | Address | Unknown | + + + | Phone | Unavailable | + + + Support + + + + + | Name | Relationship | Address | Phone | + + + + + | URI MERINO | ECON | [address] | | | | | #[place] | | | | | [address] | | + + + + + | KELLY MERINO | ECON | Unknown | | + + + + + Care Team Providers + +------+ + | Care Carving Machine Operator Name | Role | Phone [...] Record | | 2018 | | at [facility] [address] | | Review | | | | Robert Faiza Mailcode: | | | | | | [facility] | | | | | | [facility] and Healing, | | | | | | 9th Floor [place], | | | | | | [place] [address] | | | | | | [phone] | | | +--------+ + + + [...] Epic N/A Last Echo images and report [facility] 06/2017 Attached Last Stress Test images and report n/a n/a Last Cardiac Catheterization images and report Kris Campos 06/2013 Cew Last Holter or Event monitor report only n/a n/a N/A Labs (BMP, Lipids, TSH, Hemoglobin A1C in last [address]) [facility] 07/2017 attached N/A Last Device Check (schedule [...] [address] | | | | | | [place], [place] | | | | | | [address] | | | | | | [phone] | | | | | | | | +--------+---------+ + + + | 11/01/ | Office | Cardiology | Jefferson Guerra MD | | | 2017 | Visit | | [address] | | | | | | [address] | | | | | | [place], [place] | | | | | | [address] | | | | | | [phone] | | | | | | | | +--------+---------+ + + + as of this encounter Visit Diagnoses Not on filein this encounter"
--- OUTSIDE RECORDS SUMMARY | ~2017-10-14 | XMS | Encounter Summary ---
Demographics + + + | Address | [address] | | | [place] [address] | + + + | Home Phone [...] | URI MERINO | ECON | [address] | | | | | #[place] | | | | | [address] | | + + + + + | KELLY MERINO | ECON | Unknown | | + + + + + Care Team Providers + +------+ + | Care Pleater Hand Name | Role | Phone | + +------+ + | Yuriy Cardenas PA-C | PCP | | + +------+ + Encounter Details +--------+ + + + + | Date | Type | Department | Care Team | Description | +--------+ + + + + | 09/06/ | MyChart | Cardiology General | | Referral to | | 2018 | Encounter | at [facility] [address] | | Cardiology: Please | | | | [address] Mailcode: | | call to schedule. | | | | [address] [place] [address] | | | | | | Health [facility], | | | | | | 9th Floor [place], | | | | | | [place] [address] | | | | | | [phone] | | | +--------+ + + + [...] | 2017 | Visit | Oncology | [address] | | | | | | [place], [place] | | | | | | [address] | | | | | | [phone] | | | | | | | | +--------+---------+ + + + | 11/01/ | Office | Cardiology | Jefferson Guerra MD | | | 2017 | Visit | | [address] | | | | | | [address] | | | | | | [place], [place] | | | | | | [address] | | | | | | [phone] | | | | | | | | +--------+---------+ + + + as of this encounter Visit Diagnoses Not on filein this encounter"
--- OUTSIDE RECORDS SUMMARY | ~2017-10-14 | XMS | Clinical Summary ---
Demographics + + + | Address | [address] | | | [place] [address] | + + + | Home Phone | | + + + | Preferred Language | Unknown | + + + | Marital Status | | + + + | Yazidism Affiliation | 1013 | + + + | Race | Unknown | + + + | Ethnic Group | Unknown | + + + Author + + + | Author | [facility] | + + + | Organization | [facility] | + + + [...] [address] | | | | | [address] | | | | | [address] | | + + + + + | Arden Merino | ECON | Unknown | | + + + + + Care Team Providers + +------+ + | Care Box Press Operator Name | Role | Phone [...] | | | | | | | pechanga coronary | | | | | | | | artery of pechanga | | | | | | | [...] | | | | | | | [id number] 0 | | | | | | | | Iqkms570-8208 | | | | | | | | Uuzht368-4119 | | | | | | | | [id number] | | | | | | | | [id number] | | | | | | | | [id number] | | | | | | | | [id number] | | | | | | | [...] | | | | | | | [id number] | | | | | | | | 0 [id number] | | | | | | | | [id number] | | | | | | | | Dgphg341-9245 | | | | | | | | Yvboj296-3903 | | | | | | | | Zpejn900-9946 | | | | | | | | [id number] | | | | | | | [...] | | | | | | | pechanga coronary | | | | | | | | artery of pechanga | | | | | | | [...] medication compliance06/23/2013- [facility] | | [facility]- s/p PCI to pLAD, non obstructive [...] + + | Coronary artery disease involving pechanga coronary artery of | 05/03/2015 | | pechanga heart without angina pectoris | | + + + + + | Last Assessment & Plan: 44 yr old female with h/o CAD s/p PCI | | to pLAD- HTN, DM, HLD with angina and multiple ER visits for | | chest pain06/23/2013- [facility]- s/p PCI to | | pLAD, non [...] [place] | | | | | | [address] | | | | | | | [...] +------+-------+ + | MEDICARE | MEDICA | [id number] | | | [address] | | | RE | | | | [place] [address] | | | IP-OP | | | [...] Self | [birth year] | Home: | [address] | | | al/Fam | | 1971 | [phone] | [address] [place] | | | [place] | | | [phone] | [phone] | + +--------+ +--------+ + +
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
--- OUTSIDE RECORDS SUMMARY | ~2017-10-14 | XMS | Encounter Summary ---
Demographics + + + | Address | [address] | | | [place] [address] | + + + | Home Phone [...] MER[place] | ECON | [address] | | | | | #[address] | | | | | [address] | | + + + + + | KELLY MERINO | ECON | Unknown | | + + + + + Care Team Providers + +------+ + | Care Technical Services Manager Name | Role | Phone | + +------+ + | Yuriy Cardenas PA-C | PCP | | + +------+ + Encounter Details +--------+ + + + + | Date | Type | Department | Care Team | Description | +--------+ + + + + | 09/06/ | MyChart | Cardiology General | | Referral to | | 2018 | Encounter | at [facility] [address] | | Cardiology: Please | | | | Jakob Kendall Mailcode: | | call to schedule. | | | | [address] [place] [address] | | | | | | [facility], | | | | | | [address]th Floor [place], | | | | | | [place] [address] | | | | | | [phone] | | | +--------+ + + + [...] | 2017 | Visit | Oncology | [address] | | | | | | [place], [place] | | | | | | [address] | | | | | | [phone] | | | | | | | | +--------+---------+ + + + | 11/01/ | Office | Cardiology | Jefferson Guerra MD | | | 2017 | Visit | | [address] | | | | | | [address] | | | | | | [place], [place] | | | | | | [address] | | | | | | [phone] | | | | | | | | +--------+---------+ + + + as of this encounter Visit Diagnoses Not on filein this encounter"
--- OUTSIDE RECORDS SUMMARY | ~2017-10-14 | XMS | Encounter Summary ---
Demographics + + + | Address | [address] | | | [place] [address] | + + + | Home Phone | | + + + | Preferred Language | Unknown | + + + | Marital Status | | + + + | Holiness Affiliation | 1013 | + + + | Race | Unknown | + + + | Ethnic Group | Unknown | + + + Author + + + | Author | [facility] [employer] [facility] | + + + | Organization | [facility] | + + [...] [address] | | | | | [place], [place] | | | | | [address] | | + + + + + | Arden Terrazas | ECON | Unknown | | + + + + + Care Team Providers + +------+ + | Care Wire Stitcher Name | Role | Phone | + +------+ + | Yuriy Cardenas PA-C | PCP | | + +------+ + Reason for Referral MRI/CAT Scan (Routine) + +--------+ + + + + | Status | Reason | Specialty | Diagnoses / | Referred By | Referred To | | | | | Procedures | Contact | Contact | + +--------+ + + + + | Authorized | | Radiology | Diagnoses | Siao, | [facility] [address] | | | | | Malignant | MD Na | [address] | | | | | neoplasm of | [address] | | | | | lower lobe | [address] | [place], [place] | | | | | of left lung | Ave | [address] Phone: | | | | | (HCC) | [place], | [phone] | | | | | Procedures | [place] [address] | | | | | | CT chest | Phone: | | | | | | abdomen | [phone] | | | | | | pelvis with | Fax: | | | | | | IV contrast | [phone] | | + +--------+ + + + + Encounter Details +--------+ + + + + | Date | Type | Department | Care Team | Description | +--------+ + + + + | 07/26/ | Orders Only | [facility] | Na Reno MD | Malignant neoplasm | | 2018 | | Hematology and | [address] | of lower lobe of | | | | Oncology [address] | [place] | left lung (HCC) | | | | [address] | [address] | (Primary Dx) | | | | [facility] [place] | | | | | | [address] | | | | | | [phone] | | | +--------+ + + + [...] | Na Reno MD | | | 2018 | Visit | Oncology | [address] | | | | | | [place] | | | | | | [address] | | | | | | | | +--------+---------+ + + + + +--------+ + + | Name | Priori | Associated Diagnoses | Order Schedule | | | ty | | | + +--------+ + + | CT chest abdomen pelvis with IV | Routin | Malignant neoplasm | Expected: | | contrast | e | of lower lobe of | 09/25/2017, Expires: | | | | left lung (HCC) | 07/26/2018 | + +--------+ + + | Creatinine, serum | Routin | Malignant neoplasm | Expected: | | | e | of lower lobe of | 07/26/2017, Expires: | | | | left lung (HCC) | 07/26/2018 | + +--------+ + + as of this encounter Visit Diagnoses + + | Diagnosis | + + | Malignant neoplasm of lower lobe of left lung (HCC) - Primary | + +"
--- OUTSIDE RECORDS SUMMARY | ~2017-10-14 | XMS | Encounter Summary ---
Demographics + + + | Address | [address] | | | [place] [address] | + + + | Home Phone | | + + + | Preferred Language | Unknown | + + + | Marital Status | | + + + | Pentecostalism Affiliation | 1013 | + + + | Race | Unknown | + + + | Ethnic Group | Unknown | + + + Author + + + | Author | [employer] | + + + | Organization | 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 Name | Role | Phone | + +------+ + | Yuriy Cardenas PA-C | PCP | | + +------+ + Reason for Visit + + + | Reason | Comments | + + + | Cancer Follow Up | | + + + Encounter Details +--------+---------+ + + + | Date | Type | Department | Care Team | Description | +--------+---------+ + + + | 07/25/ | Office | [facility] | Na Reno MD | Malignant neoplasm | | 2018 | Visit | Hematology and | [address] | of lower lobe of | | | | Oncology [address] | [address]Z | left lung (HCC) | | | | [address] | [phone] | (Primary Dx) | | | | [place] | | | | | | [address] | | | | | | [phone] | | | +--------+---------+ + + + [...] AM PDT | + + + + in this encounter Progress Notes Na Reno MD - 07/25/2017 9:15 AM PDTFormatting of this note may be different from the o riginal. ONCOLOGY FOLLOW-UP VISIT Patient ID: Nancy Terrazas is a 46 y.o. female. Referring Provider: Dr. Rojas PCP: Yuriy Cardenas Surgeon: Dr. 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 CT showed mass in left lower lobe. 04/2017 - Pathology CT guided biopsy of lung mass showed well differentiated adenocarcinoma, PDL-1 0%. EGFR/ ROS1/ALK/BRAF mutation negative. 04/2017 - Cancer Staged PET-CT showed cavitary lesion in left lower lobe, 2.7cm, SUV of 2.4. A sclerotic focus in L lateral T12 vertebral body, 1.1 cm, not FDG avid. Brain MRI with contrast was negative for metastasis. MRI T spine with contrast showed lesion in T12 was more consistent with benign process. 06/2017 - Surgery S/p lobectomy & mediastinum LN dissection. The final pathology showed invasive adenocarcinoma, 2.6cm, mucinous, low grade, +visceral p leural invasion, no LVI, clean margins, 0 out of 20 LNs involved. Stage Cancer Staging Stage IA3. HPI: She had lobectomy & mediastinum LN dissection about a month ago. She had brief ICU stay pos t surgery due to acute respiratory failure from pulmonary edema. She has recovered from it. She was discharged home in 07/02. She is doing well since discharge. Still has some GUERIN which requires oxygen when moving around. Denies any chest pain, cough, fever. Bowels and urinatio n is regular. Review of Systems Constitutional: Positive for fatigue. Negative for activity change, appetite change, diapho resis and unexpected weight change. Respiratory: Positive for shortness of breath. Negative for cough. Cardiovascular: Negative for chest pain and leg swelling. Gastrointestinal: Negative for abdominal pain, constipation, diarrhea, nausea and vomiting. Musculoskeletal: Positive for arthralgias, back pain and myalgias. Neurological: Positive for numbness. Psychiatric/Behavioral: Negative for dysphoric mood and sleep disturbance. The patient is n ot nervous/anxious. 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 ([facility]) 05/03/2015 Hyperlipidemia Hypertension Lung mass medial pleural base mass-LLL Old myocardial infarction Type 2 diabetes mellitus without complication ([facility]) 05/03/2015 Past Surgical History Procedure Laterality Date BREAST SURGERY SECTION CHOLECYSTECTOMY CORONARY STENT PLACEMENT LITHOTRIPSY LUNG BIOPSY 04/25/2017 CT NEEDLE BIOPSY LUNG 04/25/2017 Aurelio Espinal MD [facility] CT SINUS SURGERY SPINE SURGERY THORACOSCOPY - LOBECTOMY Left 06/21/2017 Procedure: THORACOSCOPY VIDEO ASSISTED LOBECTOMY; Surgeon: Rafael Wade MD; Locatio n: [facility] MAIN OR; Service: Cardiac; Laterality: Left; Thoracotomy, mediastinal lymphadenec chris. TUBAL LIGATION Social History Social History Marital status: Spouse name: N/A Number of children: N/A Years of education: N/A Social History Main Topics Smoking status: Former Smoker Packs/day: 1.00 Years: 20.00 Quit date: 03/25/2017 Smokeless tobacco: Former User Comment: quit 1 month ago Alcohol use No Drug use: No Sexual activity: Yes Partners: Male control/ protection: Surgical-Self Other Topics Concern None Social History Narrative None Family History Problem Relation Age of Onset Asthma Mother Diabetes type II Mother Heart disease Mother Hypertension Mother COPD Mother Congestive Heart Failure Mother Heart disease Maternal Grandmother Congestive Heart Failure Maternal Grandmother Uterine cancer Maternal Aunt Current Outpatient Prescriptions Medication Sig Dispense Refill albuterol (PROVENTIL HFA;VENTOLIN HFA) 108 (90 BASE) MCG/ACT inhaler Inhale 2 puffs int o the lungs every 4 (four) hours as needed for Wheezing. aspirin 81 MG tablet Take 81 mg by mouth daily. Last dose Saturday due to lung biopsy today atorvastatin (LIPITOR) 40 MG tablet Take 1 tablet by mouth nightly. 30 tablet 11 clopidogrel (PLAVIX) 75 MG tablet Take 1 tablet by mouth daily. 30 tablet 11 gemfibrozil (LOPID) 600 MG tablet Take 1 tablet by mouth 2 (two) times daily before jose ls. 60 tablet 11 insulin aspart (NOVOLOG) 100 UNIT/ML injection Inject 10 Units into the skin 3 (three) times daily before meals. With meals 15 mL 0 insulin detemir (LEVEMIR) 100 UNIT/ML injection Inject 40 Units into the skin nightly. 10 mL 0 insulin lispro, human, (HUMALOG) 100 UNIT/ML injection Inject 0-14 Units into the skin 3 (three) times daily before meals. High Dose AC Insulin Sliding Scale Blood Glucose High Dose Less than 70 Initiate Hypoglycemia Protocol 70-119 0 Units 120-149 2 Units 150-199 3 Units 200-249 4 Units 250-299 7 Units 300-349 10 Units 350-399 11 Units >400* 14 Units 10 mL 0 insulin lispro, human, (HUMALOG) 100 UNIT/ML injection Inject 0-7 Units into the skin N ightly. High Dose HS Insulin Sliding Scale Blood Glucose High Dose Less than 70 Initiate Hypoglycemia Protocol 70-119 0 Units 120-149 0 Units 150-199 0 Units 200-249 2 Units 250-299 3 Units 300-349 5 Units 350-399 5 Units >400* 7 Units 10 mL 0 isosorbide mononitrate (IMDUR) 60 MG 24 hr tablet Take 1 tablet by mouth daily. TO REPL SUKUMAR IMDUR 30 MG 30 tablet 11 losartan (COZAAR) 25 MG tablet Take 1 tablet by mouth daily. 30 tablet 11 metoprolol (TOPROL-XL) 25 MG 24 hr tablet Take 1 tablet by mouth nightly. 30 tablet 11 nitroGLYCERIN (NITROSTAT) 0.[address] 1 tablet under the tongue every 5 (fiv e) minutes as needed for Chest pain. 90 tablet 0 oxyCODONE (ROXICODONE) 15 MG immediate release tablet Take 1 tablet by mouth every 6 (s ix) hours as needed for Pain (6 to 7). 30 tablet 0 potassium chloride (K-DUR) 10 MEQ tablet Take 2 tablets by mouth 2 times per day for fi rst 3 days, then 1 tablet by mouth 2 times per day for the next 3 days then stop 18 tablet 0 potassium chloride (MICRO-K) 10 MEQ CR capsule Take 1 capsule by mouth daily. 30 capsul e 11 pregabalin (LYRICA) 75 MG capsule Take 75 mg by mouth 3 (three) times daily. traMADol (ULTRAM) 50 MG tablet Take 1 tablet by mouth every 4 (four) hours as needed. 3 0 tablet 0 furosemide (LASIX) 20 MG tablet Take 1 tablet by mouth 2 (two) times daily for 3 days. 6 tablet 0 No current facility-administered medications for this visit. Facility-Administered Medications Ordered in Other Visits Medication Dose Route Frequency Provider Last Rate Last Dose sodium chloride 0.9 % flush 10 mL 10 mL Intravenous PRN Pilo Ocampo MD Objective: BP 130/90 | Pulse 117 | Temp 96.5 F (35.8 C) (Tympanic) | Resp 16 | Ht 1.651 m (5' 5") | Wt 89.4 kg (197 lb) | SpO2 96% Comment: with o2 | BMI 32.78 kg/m Physical Exam Constitutional: She is oriented to person, place, and time. No distress. On oxygen. HENT: Mouth/Throat: Oropharynx is clear and moist. Eyes: EOM are normal. Pupils are equal, round, and reactive to light. Cardiovascular: Normal rate and regular rhythm. Pulmonary/Chest: Breath sounds normal. Incision at left chest healed completely. Abdomina/Gl: Soft. Bowel sounds are normal. She exhibits no distension. There is no tendern ess. Musculoskeletal: Normal range of motion. Lymphadenopathy: She has no cervical adenopathy. She has no axillary adenopathy. Neurological: She is alert and oriented to person, place, and time. Vitals reviewed. No visits with results within 1 Week(s) from this visit. Latest known visit with results is: Lab Requisition on 07/09/2017 Component Date Value Ref Range Status CHOLESTEROL 07/09/2017 187 <200 mg/dL Final Triglycerides 07/09/2017 393* <150 mg/dL Final HDL CHOL 07/09/2017 41 >40 mg/dL Final LDL CALC 07/09/2017 67 <100 mg/dL Final WBC 07/09/2017 10.47 3.80 - 11.00 10*3/uL Final RBC 07/09/2017 3.46* 3.70 - 5.10 10*6/uL Final HGB 07/09/2017 10.3* 11.3 - 15.5 g/dL Final HCT 07/09/2017 29.9* 34.0 - 46.0 % Final MCV 07/09/2017 86.4 80.0 - 100.0 fL Final MCH 07/09/2017 29.6 27.0 - 34.0 pg Final MCHC 07/09/2017 34.3 32.0 - 35.5 g/dL Final RDW SD 07/09/2017 42.0 37 - 53 fL Final PLT 07/09/2017 535* 150 - 400 10*3/uL Final MPV 07/09/2017 8.3 fL Final DIFF TYPE 07/09/2017 AUTOMATED Final NEUTROPHILS 07/09/2017 50.85 % Final LYMPHOCYTES 07/09/2017 26.69 % Final MONOCYTES 07/09/2017 11.31 % Final EOSINOPHILS 07/09/2017 10.08 % Final BASOPHILS 07/09/2017 1.07 % Final NEUTROPHILS ABS 07/09/2017 5.33 1.90 - 7.40 10*3/uL Final LYMPHOCYTES ABS 07/09/2017 2.80 1.00 - 3.90 10*3/uL Final MONOCYTES ABS 07/09/2017 1.18* 0.00 - 0.80 10*3/uL Final EOSINOPHILS ABS 07/09/2017 1.06* 0.00 - 0.50 10*3/uL Final BASOPHILS ABS 07/09/2017 0.11* 0.00 - 0.10 10*3/uL Final SODIUM 07/09/2017 138 135 - 145 mmol/L Final POTASSIUM 07/09/2017 4.5 3.5 - 4.9 mmol/L Final CHLORIDE 07/09/2017 102 99 - 109 mmol/L Final CO2 07/09/2017 24 23 - 32 mmol/L Final ANION GAP AGAP 07/09/2017 17 5 - 20 mmol/L Final GLUCOSE 07/09/2017 323* 65 - 99 mg/dL Final BUN 07/09/2017 25 8 - 25 mg/dL Final CREATININE 07/09/2017 1.1* 0.50 - 1.00 mg/dL Final BUN/CREAT 07/09/2017 23 Final CALCIUM 07/09/2017 9.5 8.5 - 10.5 mg/dL Final EGFR 07/09/2017 57* >60 mL/min/1.73_m2 Final GFR <60: CHRONIC KIDNEY DISEASE, IF FOUND OVER A 3 MONTH PERIOD. GFR <15: KIDNEY FAILURE. FOR AMERICANS, MULTIPLY THE CALCULATED GFR BY 1.210. Results Pathology histology - tissue (Order [id number]) Result Information Abnormality Status Priority Source Final result (06/21/2017 0907) Routine Lymph Node 06/25/2017 1:40 PM - Interface, Pathology Narrative SPECIMEN(S): A LYMPH NODE, STATION 9 Lt. SPECIMEN(S): B LYMPH NODE, STATION 10 Lt. SPECIMEN(S): C LYMPH NODE, STATION 5 Lt. SPECIMEN(S): D LYMPH NODE, STATION 7 Lt. SPECIMEN(S): E LYMPH NODE, STATION 6 Lt. SPECIMEN(S): F Lt. LUNG LOWER LOBE SPECIMEN SOURCE: A. LYMPH NODE, STATION 9 Lt. B. LYMPH NODE, STATION 10 Lt. C. LYMPH NODE, STATION 5 Lt. D. LYMPH NODE, STATION 7 Lt. E. LYMPH NODE, STATION 6 Lt. F. Lt. LUNG LOWER LOBE CLINICAL HISTORY: 06/21/2017 at 1326 H. Lung cancer. FINAL PATHOLOGIC DIAGNOSIS: A. Station 9 lymph nodes, excision: - Two lymph nodes negative for metastatic tumor (0/2). B. Station 10 lymph nodes, excision: - Seven lymph node fragments negative for metastatic tumor (0/7). C. Station 5 lymph nodes, excision: - Six lymph node fragments negative for metastatic tumor (0/6). D. Station 7 lymph node, excision: - One lymph node negative for metastatic tumor (0/1). E. Station 6 lymph nodes, excision: - Three lymph node fragments negative for metastatic tumor (0/3). F. Left lower lobe lung, lobectomy: - Invasive adenocarcinoma with the following features: - Tumor site: Left lower lobe. - Tumor size: 2.6 cm greatest dimension. - Tumor focality: Single tumor. - Histologic type: Mucinous adenocarcinoma. - Histologic grade: Low grade (well differentiated). - Visceral pleural invasion: Present, confirmed by VVG stain. - Lymphovascular invasion: Not identified. - Surgical margins: Uninvolved by invasive carcinoma (tumor measures 2.2 cm fr om closest stapled margin). - Treatment effect: No known presurgical therapy. - Regional lymph nodes (including specimens A, B, C, D, E and F): - Number of lymph nodes examined: 20. - Number of lymph nodes involved by tumor: 0. - Surgical pathology stage: pT2 pN0. As part of the [employer], this case was reviewed by another member of [facility]. ([facility]) AMB:rrc: C1NR GROSS DESCRIPTION: Six specimens are received in six containers, labeled with the patient's name: A. Received in formalin designated "left lymph node station 9", consists of 2 red-black sof t tissue fragments that measure 0.7 cm and 0.8 cm in greatest dimension. Specimen is entirel y submitted in cassette A1. B. Received in formalin designated "left lymph node station 10 ", consists of 7 red-black s oft tissue fragments that range in size from 0.5 cm up to 1.1 cm in greatest dimension. Spec imen is entirely submitted in cassette B1. C. Received in formalin designated "left lymph node station 5 ", consists of 6 red-black so ft tissue fragment syringes are from 0.7 cm up to 1.7 cm in greatest dimension. Specimen is entirely submitted in cassette C1. D. Received in formalin designated "left lymph node station 7 ", consists of one red-black soft tissue fragment that is 1.3 cm in greatest dimension. The specimen is bisected and enti rely submitted in cassette D1. E. Received in formalin designated "left lymph node station 6 ", consists of 3 red-hester sof t tissue fragments that range in size from 0.4 cm up to 1.6 cm in greatest dimension. Larges t tissue is inked and bisected. The specimen is entirely submitted in cassette E1. F. Received in formalin designated "left lung lower lobe ", consists of 13.5 x 10.6 x 7.5 c m lobe of lung. The pleural surface is violaceous and smooth with an area of puckering at th e superior aspect measuring 1.0 x 1.0 x 1.0 cm. The pleural surface in this area is inked black. The specimen is serially sectioned to reveal a 2.6 x 2.2 x 1.7 cm pink red partially cystic and ill-defi adelina masses that is associated with the previously described area of pleural puckering. The masses are 3.6 c m from the bronchial resection margin, 3.5 cm from the bronchial vessel resection margins, a nd 2.2 cm from the closest stapled resection margin. This mass abuts the black inked pleural surface. The uninvolved lung is a pink-red and spongy. One black possible lymph node is a present measuri ng 0.5 cm in greatest dimension. Engine Mechanic sections are submitted in 5 cassettes. Cassette summary: (F1) bronchial resection margin, shave; (F2) bronchial vessel resection m argin, shave; (F3) mass to pleural surface; (F4) mass to uninvolved lung; (F5) uninvolved radha ng and one possible lymph node, submitted whole. FM The gross description section of this report has been prepared using a voice recognition sy stem. The report was reviewed for accuracy, however, sound-alike word errors, addition and/o r deletions may occur. If there is any question about this report please contact the originating pathologis t. MICROSCOPIC EXAMINATION: A-F. Histologic sections of all submitted blocks are examined by light microscopy. These findings, together with the gross examination, support the pathologic diagnosis. PERFORMING LABORATORY: Professional interpretation and technical preparation was performed by [facility] [address] (Solid Waste Disposal Manager: Sharan Oconnor M.D.; IA#: [id number]). Diagnostician: Melissa Herrera MD Pathologist Electronically Signed 06/25/2017 Imaging: PET Initial [place] [facility] [[id number]] Status: Final result Study Result HISTORY: Left lung mass. COMPARISON: CTA chest 03/01/17. Chest x-ray 03/01/17. Chest x-rays 05/03/15, 03/30/15. TECHNIQUE: Serum blood sugar 86 mg/dL. The patient was sedated with 1 milligrams of oral Xanax. Fuse d PET/CT scans were obtained from the skull Base through the upper thighs at 64 minutes post injection of 11.[address] images are for localization only, and not for diagnostic purposes. FINDINGS: The cavitary nodule in the medial aspect of the superior segment of the left lower lobe seq uence 4 image 77 measures 2.7 cm transverse by 2.5 cm AP dimension demonstrates only faint u ptake, SUV 2.4. This is bounded by the major fissure anteriorly, and the medial pleura media lly. Cavitation measures up to 11 x 11 mm. Minimal strandy change in the medial right lung base sequence 4 image 114 without uptake, o f doubtful significance. Subtle atelectasis is also noted in the posterior right lung base. Lung volumes are low. Clips in the gallbladder fossa. Asymmetric density with lobulated calcifications beneath th e right nipple. Correlate with mammography. No abnormal uptake. There is a posterior left abdominal wall hernia sequence 4 image 171 measuring 5.5 cm in tr ansverse orientation containing herniated retroperitoneal fat. L3-S1 transpedicular screws with L3-L5 bilateral laminectomies. Bone windows also show no lytic changes. Sclerotic focus in the left lateral T12 vertebral body sequence 4 image 142 measures 11 x 8 mm, similar to prior CTA chest. This appears well- circumscribed, and is probably benign given the lack of uptake. IMPRESSION: 1. The cavitary lesion in the medial aspect of the superior segment of the left lower lobe measuring 2.7 cm demonstrates very faint uptake. Unfortunately, this is not specific. Adeno carcinoma or atypical infection could account for this. Alveolar cell malignancy seems unlik papito. If there is persistent clinical concern, CT guided biopsy could be performed. 2. 12 mm sclerotic focus in the left posterior T12 vertebral body again noted, without upt paul, nonspecific, probably benign. Either progress CT evaluation, or enhanced MRI at this ti me may help in further evaluation. brain with and without contrast [[id number]] Status: Final result Study Result HISTORY: 46 years old female with lung malignancy, requires staging examination TECHNIQUE: MR of the brain/intracranial contents pre-and post the uneventful administration of 17cc MultiHance. None prior study for evaluation FINDINGS: Diffusion weighted pulse sequences reveal no evidence of abnormal signal compatible with ac [place] or active ischemia. ADC map agrees. A few small foci of T2 shine through such as on imag e 32 series 2 in the left frontal white matter, not thought consequential. Gradient pulse s equences demonstrate a large focus of abnormal gradient dark signal in the anterior superior right frontal apex on image 3 series 4. This is extra-axial, seen on sagittal image 13 seri es 7 and is dark postcontrast. T1 bright. With peripheral FLAIR bright signal. Seems associa hiren with the dura or the periosteum of the inner table No intra-axial evidence of dark signal compatible with abnormal intracranial hemosiderin de position. Multiplanar flair and T2 weighted pulse sequences demonstrate a normal midline falx. The ve ntricles demonstrate appropriate volume and symmetry . No evidence of abnormal extra axial f luid collection. The cervical occipital relationships are normal. There is no evidence of c erebellar tonsillar ectopia. The sella, tectum, pineal and seventh/eighth nerve complexes ar e normal. CSF and perivascular spaces are normal. The orbits are unremarkable. Paranasal sinuses reveal diffuse and fairly exuberant mucosal thickening of both maxillary sinuses. Ethmoid air cell with mucosal thickening. Layering flu id in both maxillary sinuses. The mastoids are clear. No evidence of significant white matter disease The MULTIPLANAR POST CONTRAST PULSE SEQUENCES demonstrate normal enhancement of the major d ural sinuses without convincing evidence of abnormal parenchymal or dural enhancement. IMPRESSION: 1. No evidence of intra-axial metastasis 2. Acute on chronic maxillary sinus disease with acute air-fluid levels. Active sinusitis 3. Associated with the dura or the inner table of the superior right frontal calvarium near the vertex is a 14 x 8 x 13 mm focus of T2 dark signal, with some central T1 bright signal- but no evidence of enhancement. Do not favor progressive or metastatic lesion. Most likely either a calcified lipomatous le mayank, hemangioma or dural vascular malformation. Possibly with superimposed hemosiderin/prio r bleed Recommend CT scan with high-resolution fine cut imaging of the vertex only to supplement th is imaging thoracic spine with and without contrast [[id number]] Status: Final result Study Result HISTORY: 46 year-old female, lung malignancy with indeterminate non-FDG avid sclerotic lesi on at T12 TECHNIQUE: 1. MR evaluation of the thoracic spine Prior study for review : PET/CT from 09 April 2017 FINDINGS: The 10 mm oval sclerotic lesion in T12 to left of midline on image 142 series 4 the PET/CT is T2 dark on image 20 series 10, without evidence of abnormal enhancement and seen well onl y on axial images. As numbered from C2 this faint finding is in the T12 vertebral body. There are 7 cervical, 12 thoracic and 5 lumbar vertebral bodies. On the lumbar addiction treatment counselor notation made of significant postoperative changes of the lumbar spine and dorsal decompression with what may be a seroma or fluid collection behind the spinal can al on image 8 series 4 Paraspinal soft tissues, no lymphadenopathy, abnormal enhancement or mass. There is a known enhancing mass postbiopsy in the medial posterior left lung on image [address] s can results for details there but the lesion on this examination measures about 2.5 cm. This modality will not be appropriate for pulmonary mapping of disease CORD: Normal in signal texture and structure. Without evidence of abnormal enhancement of t he cord or dura. No mass BONE: No other potential or aggressive skeletal lesions. Disc: No evidence of infectious or inflammatory discitis with posterior bulge of the desicc ated disc at T12-L1 of a few millimeters and subtle bulges above this, but without evidence of high-grade disease or discitis. Some anterior osteophytosis of the lower thoracic spine i s multilevel and uniform IMPRESSION: 1. The oval 10 mm sclerotic lesion to the left of midline in T12 is T2 dark, unaccompanied by abnormal enhancement-highly doubtful for metastasis 2. Known pulmonary lesion in the medial posterior left lung-see dedicated pulmonary imaging for details 3. Postoperative changes of lumbar spine with significant degenerative changes and posterio r seroma or fluid collection from L3 through L5, not fully evaluated here Assessment: ECOG Performance Status: Ambulatory and capable of all selfcare but unable to carry out any work activities. Up and about more than 50% of waking hours (07/26/17 1631) 46 yo lady, prior heavy smoker, with 1. Adenocarcinoma of lung, left lower lobe, s/p lobectomy & mediastinum LN dissection in 2017, stage IA3, PDL-1=0%, negative for EGFR/ROS1/ALK/BRAF mutation. I have reviewed the [facility] pathology result with her and her daughter. She has very early stage lung cancer without any unfavorable features. There is no role of adjuvant treatment. She is recovering from the surgery well. Will start q3-4 months surveillance visit. Will ge t a post surgery CT prior to next visit. 2. Continue to follow up with lacing string cutter for her COPD. Plan: 1. Return in [address] CAP with contrast prior to next visit. Greater than 25minutes were spent examining the patient, review of medical records, addiction treatment counselor ing, coordination of care, and CPOE. More than 50% of that time was spent in direct contact with the patient. in this encounter Plan of Treatment +--------+---------+ [...] [place] | | | | | | [address] | | | | | | | | +--------+---------+ + + + + +--------+ + + | Name | Priori | Associated Diagnoses | Order Schedule | | | ty | | | + +--------+ + + | CBC W/Auto Diff (Reflex to | Routin | Malignant neoplasm | Expected: 10/26/2017 | | Manual) | e | of lower lobe of | (Approximate), | | | | left lung (HCC) | Expires: 01/26/2018 | + +--------+ + + | Comprehensive metabolic panel | Routin | Malignant neoplasm | Expected: 10/26/2017 | | | e | of lower lobe of | (Approximate), | | | | left lung (HCC) | Expires: 01/26/2018 | + +--------+ + + as of this encounter Visit Diagnoses + + | Diagnosis | + + | Malignant neoplasm of lower lobe of left lung (HCC) - Primary | + +
--- OUTSIDE RECORDS SUMMARY | ~2017-10-14 | XMS | Encounter Summary ---
Demographics + + + | Address | [address] | | | [place] [address] | + + + | Home Phone [...] | URI MERINO | ECON | [address] | | | | | #[place] | | | | | [address] | | + + + + + | KELLY MERINO | ECON | Unknown | | + + + + + Care Team Providers + +------+ + | Care Lens Shaper Grinder Name | Role | Phone | + +------+ + | Yuriy Cardenas PA-C | PCP | | + +------+ + Encounter Details +--------+--------+ + + + | Date | Type | Department | Care Team | Description | +--------+--------+ + + + | 10/07/ | Josiane | [facility] - Family | Yuriy Cardenas, | | | 2018 | | Medicine at | PA-C [address] | | | | | [place] [address] [address] | | | | | [address] [place] | [place], [place] | | | | | [place], [place] | [address] | | | | | [address] | [phone] | | | | | [phone] | | | +--------+--------+ + + + [...] Kendall | | | | | | [place], [place] | | | | | | [address] | | | | | | [phone] | | | | | | | | +--------+---------+ + + + | 11/01/ | Office | Cardiology | Jefferson Guerra MD | | | 2017 | Visit | | [address] | | | | | | [address] | | | | | | [place], [place] | | | | | | [address] | | | | | | [phone] | | | | | | | | +--------+---------+ + + + as of this encounter Visit Diagnoses Not on filein this encounter"
--- OUTSIDE RECORDS SUMMARY | ~2017-10-14 | XMS | Encounter Summary ---
Demographics + + + | Address | [address] | | | [place] [address] | + + + | Home Phone | | + + + | Preferred Language | Unknown | + + + | Marital Status | | + + + | Presybeterian Affiliation | PRE | + + + [...] | URI MERINO | ECON | [address] | | | | | #[place] | | | | | [address] | | + + + + + | KELLY MERINO | ECON | Unknown | | + + + + + Care Team Providers + +------+ + | Care Digital Data Analyst Name | Role | Phone | [...] 2018 | | Medicine at | PA-C [address] | mellitus | | | | [place] [address] [address] | | | | | [address] | [place], [place] | | | | | [place], [place] | [address] | | | | | [address] | [phone] | | | | | [phone] | | | +--------+ + + + [...] Kendall | | | | | | [place] | | | | | | [address] | | | | | | [phone] | | | | | | | | +--------+---------+ + + + | 11/01/ | Office | Cardiology | Jefferson Guerra MD | | | 2017 | Visit | | [address] | | | | | | [address] | | | | | | [place] | | | | | | [address] | | | | | | [phone] | | | | | | | | +--------+---------+ + + + as of this encounter Visit Diagnoses Not on filein this encounter"
--- OUTSIDE RECORDS SUMMARY | ~2017-10-14 | XMS | Encounter Summary ---
Demographics + + + | Address | [address] [facility] [address] | | | [place] [address] | + + + | Home Phone | | + + + | Preferred Language | Unknown | + + + | Marital Status | | + + + | Congregation Affiliation | 1013 | + + + | Race | Unknown | + + + | Ethnic Group | Unknown | + + + Author + + + | Author | [facility] [employer] | + + + | Organization | [facility] | + + [...] | [place] | | | | | [address] | | + + + + + | Arden Terrazas | ECON | Unknown | | + + + + + Care Team Providers + +------+ + | Care Side Seam Envelope Machine Operator Name | Role | Phone [...] Description | +--------+--------+ + + + | 09/10/ | Refill | VIANNEY Mcneal | Estefania Abdalla, | Medication Refill | | 2017 | | Cardiology Harvinder | ROBERTO | | | | | [address] [facility] | | | | | | [facility] [address] | | | | | | [place] [address] | | | | | | [phone] | | | +--------+--------+ + + + [...] | 2018 | Visit | Oncology | [address] | | | | | | [place] | | | | | | [address] | | | | | | | | +--------+---------+ + + + as of this encounter Visit Diagnoses + + | Diagnosis | + + | 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
--- OUTSIDE RECORDS SUMMARY | ~2017-10-14 | XMS | Encounter Summary ---
Demographics + + + | Address | [address] [facility] [address] | | | [place] [address] | + + + | Home Phone | | + + + | Preferred Language | Unknown | + + + | Marital Status | | + + + | Buddhism Affiliation | 1013 | + + + | Race | Unknown | + + + | Ethnic Group | Unknown | + + + Author + + + | Author | [facility] [employer] | + + + | Organization [...] | [place] | | | | | [address] | | + + + + + | Arden Terrazas | ECON | Unknown | | + + + + + Care Team Providers + +------+ + | Care Engraver Hand Hard Metals Name | Role | Phone | + [...] Description | +--------+--------+ + + + | 09/09/ | Refill | VIANNEY [place] | Estefania Abdalla, | Medication Refill | | 2017 | | Cardiology Ann | [place] | | | | | [address] | | | | | | [address] | | | | | | [place] [address] | | | | | | [phone] | | | +--------+--------+ + + + [...] | 2017 | Visit | Oncology | [address] | | | | | | [place] | | | | | | [address] | | | | | | | | +--------+---------+ + + + as of this encounter Visit Diagnoses Not on filein this encounter"
--- OUTSIDE RECORDS SUMMARY | ~2017-10-14 | XMS | Encounter Summary ---
Demographics + + + | Address | [address] | | | [place] [address] | + + + | Home Phone [...] MERINO | ECON | [address] | | | | | #[address] | | | | | [address] | | + + + + + | KELLY MERINO | ECON | Unknown | | + + + + + Care Team Providers + +------+ + | Care Wheel Braider Name | Role | Phone | + +------+ + | Yuriy Cardenas PA-C | PCP | | + +------+ + Encounter Details +--------+--------+ + + + | Date | Type | Department | Care Team | Description | +--------+--------+ + + + | 10/07/ | Josiane | [facility] - Family | Yuriy Cardenas, | | | 2018 | | Medicine at | PA-C [address] | | | | | [place] [address] [address] | | | | | [address] | [place], [place] | | | | | [place], [place] | [address] | | | | | [address] | [phone] | | | | | [phone] | | | +--------+--------+ + + + [...] Kendall | | | | | | [place], [place] | | | | | | [address] | | | | | | [phone] | | | | | | | | +--------+---------+ + + + | 11/01/ | Office | Cardiology | Jefferson Guerra MD | | | 2017 | Visit | | [address] | | | | | | [address] | | | | | | [place], [place] | | | | | | [address] | | | | | | [phone] | | | | | | | | +--------+---------+ + + + as of this encounter Visit Diagnoses Not on filein this encounter"
--- OUTSIDE RECORDS SUMMARY | ~2017-10-14 | XMS | Clinical Summary ---
Demographics + + + | Address | [address] | | | [place] [address] | + + + | Home Phone | | + + + | Preferred Language | Unknown | + + + | Marital Status | | + + + | Mandaen Affiliation | Unknown | + + + | Race | Unknown | + + + | Ethnic Group | Unknown | + + + Author + + + | Author | [facility] | | | and [place] | + + + | Organization | [facility] | | | and [place] | + + + | Address | Unknown | + + + | Phone | Unavailable | + + + Support + + + + + | Name | Relationship | Address | Phone | + + + + + | Dustin Merino | ECON | [address] | | | | | Apt [place] | | | | | [address] | | + + + + + | Bebe Merino | ECON | Unknown | + | + + + + + Care Team Providers + +------+ + | Care Applied Psychology Chair Name | Role | Phone | [...] +--------+ +---------+ | MEDICARE | MEDICA | [id number] | Medica | [phone] | | | RE | | re | [phone] | | | | PART A | | | | | | | AND B | | | | | + +--------+ +--------+ +---------+ | MEDICAID [place] | MEDICA | [id number] | Medica | [phone] | | [...] | [birth year] | Home: | [address] | | | al/Fam | | 1971 | [phone] [address] [place], | | | [place] | | | [address] | [place] [address] | + +--------+ +--------+ + +
--- OUTSIDE RECORDS SUMMARY | ~2017-10-14 | XMS | Encounter Summary ---
Demographics + + + | Address | [address] [facility] [address] | | | [place] [address] | + + + | Home Phone | | + + + | Preferred Language | Unknown | + + + | Marital Status | | + + + | Hinduism Affiliation | 1013 | + + + | Race | Unknown | + + + | Ethnic Group | Unknown | + + + Author + + + | Author | [facility] [employer] | + + + | Organization | [facility] | + + + [...] | [place] | | | | | [address] | | + + + + + | Arden Terrazas | ECON | Unknown | | + + + + + Care Team Providers + +------+ + | Care Tool And Die Supervisor Name | Role | Phone | [...] + | 09/10/ | Refill | VIANNEY [place] | Estefania Abdalla, | Medication Refill | | 2017 | | Cardiology Harvinder | ROBERT[place] | | | | | [address] [facility] [address] [address] | | | | | | [facility] [address] | | | | | | [place] [address] | | | | | | [phone] | | | +--------+--------+ + + + [...] | 2018 | Visit | Oncology | [address] | | | | | | [place] | | | | | | [address] | | | | | | | | +--------+---------+ + + + as of this encounter Visit Diagnoses + + | Diagnosis | + + | Coronary artery disease involving united [place] coronary artery of united [place] heart with angina | | pectoris (HCC) | + + | Angina effort (HCC) | + + | Other and unspecified angina pectoris | + +"
--- OUTSIDE RECORDS SUMMARY | ~2017-10-14 | XMS | Encounter Summary ---
Demographics + + + | Address | [address] [address] | | | [place] [address] | + + + | Home Phone | | + + + | Preferred Language | Unknown | + + + | Marital Status | | + + + | Episcopalian Affiliation | 1013 | + + + | Race | Unknown | + + + | Ethnic Group | Unknown | + + + Author + + + | Author | [facility] [employer] [facility] | + + + | Organization | [facility] | + + + | [...] | [place] | | | | | [address] | | + + + + + | Arden Terrazas | ECON | Unknown | | + + + + + Care Team Providers + +------+ + | Care Software Configuration Engineer Name | Role | Phone | [...] + + | 07/25/ | Office | [facility] | Na Reno MD | Malignant neoplasm | | 2018 | Visit | Hematology and | [address] | of lower lobe of | | | | Oncology [address] | [place] | left lung (HCC) | | | | [address] | [phone] | (Primary Dx) | | | | [place] | | | | | | [address] | | | | | | [phone] | | | +--------+---------+ + + + [...] Initial Diagnosis 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 [...] Chronic back pain Coronary artery disease involving [place] coronary artery of [place] heart with angina pe ctoris ([facility]) 05/03/2015 Hyperlipidemia Hypertension Lung mass medial pleural base mass-LLL Old myocardial infarction Type 2 diabetes mellitus without complication ([facility]) 05/03/2015 Past Surgical History Procedure Laterality Date BREAST SURGERY SECTION CHOLECYSTECTOMY CORONARY STENT PLACEMENT LITHOTRIPSY LUNG BIOPSY 04/25/2017 CT NEEDLE BIOPSY LUNG 04/25/2017 Aurelio Espinal MD [facility] CT SINUS SURGERY SPINE SURGERY THORACOSCOPY - LOBECTOMY Left 06/21/2017 Procedure: THORACOSCOPY VIDEO ASSISTED LOBECTOMY; Surgeon: Rafael Wade MD; Locatio n: [facility] MAIN OR; Service: Cardiac; Laterality: Left; Thoracotomy, [...] 1.210. Results Pathology histology - tissue (Order [id number]) Result Information Abnormality Status Priority Source Final [...] stage: pT2 pN0. As part of the Stocking Inspector Program, this case was reviewed by another member of [facility]. ([facility]) AMB:rrc: C1NR GROSS DESCRIPTION: Six [...] measuri ng 0.5 cm in greatest dimension. Biometrics Instructor sections are submitted in 5 cassettes. Cassette [...] interpretation and technical preparation was performed by [employer] [address] (Ammunition Assembly Laborer: Sharan Oconnor M.D.; IA#: [id number]). Diagnostician: Melissa Herrera MD Pathologist Electronically Signed 06/25/2017 Imaging: PET Initial Torso FDG [[id number]] Status: Final result Study Result HISTORY: Left [...] further evaluation. brain with and without contrast [[id number]] Status: Final result Study Result HISTORY: 46 years old female with lung malignancy, requires staging examination TECHNIQUE: MR of the brain/intracranial contents pre-and post the uneventful administration of 17cc MultiHance. None prior study for evaluation FINDINGS: Diffusion weighted pulse sequences reveal no evidence of abnormal signal compatible with ac [place] or active ischemia. ADC map agrees. A [...] imaging thoracic spine with and without contrast [[id number]] Status: Final result Study Result HISTORY: 46 [...] 5 lumbar vertebral bodies. On the lumbar hog ringer notation made of significant postoperative changes of [...] for EGFR/ROS1/ALK/BRAF mutation. I have reviewed the [facility] pathology result with her and her daughter. She has very early stage lung cancer without any unfavorable features. There is no role of adjuvant treatment. She is recovering from the surgery well. Will start q3-4 months surveillance visit. Will ge t a post surgery CT prior to next visit. 2. Continue to follow up with business solutions analyst for her COPD. Plan: 1. Return in 3 [address] with lab[address] 2. CT CAP with contrast prior to next visit. Greater than 25minutes were spent examining the patient, review of medical records, activities counselor ing, coordination of care, and CPOE. [...] [place] | | | | | | [address] | | | | | | | [...]
--- OUTSIDE RECORDS SUMMARY | ~2017-10-14 | XMS | Encounter Summary ---
Demographics + + + | Address | [address] [facility] [address] | | | [place] [address] | + + + | Home Phone | | + + + | Preferred Language | Unknown | + + + | Marital Status | | + + + | Caodaism Affiliation | 1013 | + + + | Race | Unknown | + + + | Ethnic Group | Unknown | + + + Author + + + | Author | [facility] [employer] | + + + | Organization | [facility] | + + + | [...] | [place] | | | | | [address] | | + + + + + | Arden Terrazas | ECON | Unknown | | + + + + + Care Team Providers + +------+ + | Care Asphalt Coater Name | Role | Phone | + [...] + | 09/09/ | Refill | VIANNEY [place] | Estefania Abdalla, | Medication Refill | | 2017 | | Cardiology Ann | [place] | | | | | [address] | | | | | | [address] | | | | | | [place] [address] | | | | | | [phone] | | | +--------+--------+ + + + [...] | 2017 | Visit | Oncology | [address] | | | | | | [place] | | | | | | [address] | | | | | | | | +--------+---------+ + + + as of this encounter Visit Diagnoses Not on filein this encounter"
--- OUTSIDE RECORDS SUMMARY | ~2017-10-14 | XMS | Clinical Summary ---
Demographics + + + | Address | [address] | | | [place] [address] | + + + | Home Phone [...] URI MERINO | ECON | [address] | | | | | #[place] | | | | | [address] | | + + + + + | KELLY MERINO | ECON | Unknown | | + + + + + Care Team Providers + +------+ + | Care Space Operations Name | Role | Phone | + +------+ + | Yuriy Cardenas PA-C | PP | | + +------+ + Source Comments [facility] and [facility] InPatient.[facility] Allergies [...] | + + + | Atherosclerosis of crow coronary artery of crow heart | 05/20/2017 | + + + [...] | 10/07/ | Refill | | Yuriy Cardeans, | | | 2017 | | | [...] | | 2017 | Visit | | [address] | | | | | | [place], [place] | | | | | | [address] | | | | | | [phone] | | | | | | | | +--------+---------+ + + + | 11/01/ | Office | | Jefferson Guerra MD | | | 2018 | Visit | | [address] | | | | | | [address] | | | | | | [facility] [place] | | | | | | [address] | | | | | | [phone] | | | | | | | [...] 008 | + +------+--------+ +--------+--------+--------+ | Aria [id number] | | Bilate | BALWINDER | | | [id number] | | DegreeImplanted: Qty: 1 on | | ral: | | | | 12 / / | | 12/23/2012 by Adama Alvarez, | | Neck | | | | | | | | | | | | | + +------+--------+ +--------+--------+--------+ | Screw Renetta 3 Ti Polyaxial 7.5 | | N/A: | [place] | | | [id number] | | X 35 Mm - [id number]: | | Spine | | | | 535 / | | Qty: 1 on 12/23/2012 by | | | | | | / | | Adama Alvarez MD | | | | | | | + +------+--------+ +--------+--------+--------+ | Screw Renetta 3 Ti Polyaxial 6.5 | | N/A: | [place] | | | [id number] | | X 45 Mm - [id number]: | | Spine | | | | 545 / | | Qty: 1 on 12/23/2012 by | | | | | | / | | Adama Alvarez MD | | | | | | | + +------+--------+ +--------+--------+--------+ | Screw Renetta 3 Ti Polyaxial 6.5 | | N/A: | [place]ER | | | [id number] | | X 40 Mm - [id number]: | | Spine | | | | 540 / | | Qty: 3 on 12/23/2012 by | | | | | | / | | Adama Alvarez MD | | | | | | | + +------+--------+ +--------+--------+--------+ | Screw Renetta 3 Ti Polyaxial 6.5 | | N/A: | [place] | | | [id number] | | X 35 Mm - [id number]: | | Spine | | | | 535 / | | Qty: 1 on 12/23/2012 by | | | | | | / | | Adama Alvarez MD | | | | | | | + +------+--------+ +--------+--------+--------+ | Screw Renetta 3 Ti Polyaxial 4.5 | | N/A: | [place]ER | | | [id number] | | X 40 Mm - [id number]: | | Spine | | | | 540 / | | Qty: 2 on 12/23/2012 by | | | | | | / | | Adama Alvarez, MD | | | | | | | + +------+--------+ +--------+--------+--------+ | Julio Cesar Renetta 3 Rad 6 X 90mm - | | N/A: | [place] | | | [id number] | | [id number]: Qty: 2 on | | Spine | | | | 90 / / | | 12/23/2012 by Adama Alvarez, | | | | | | | | MD | | | | | | | + +------+--------+ +--------+--------+--------+ | Cap Renetta 3 Ti Calixto - | | | [place] | | | [id number] | | [id number]: Qty: 8 on | | | | [...] | + + + | Blood | [facility], CORE [address] | | | [place] [address] | + + + + + | [...] | >60 | >60 mL/min | | [place] | | | + + + + | EGFR NON | >60 | >60 mL/min | | -[place] | | | + + + + [...] | + + + | Blood | [facility], CORE [address] | | | [place] [address] | + + + + + | [...] | | ------ CBC (HEMOGRAM) | | ONLY[[id number]] Abnormal Final | | result Please view [...] | + + + | Blood | [facility], CORE [address] | | | [place] [address] | + + + VITAMIN B-12 (10/04/2017 [...] | + + + | Blood | [facility], CORE [address] | | | [place] [address] | + + + HEMOGLOBIN A1C, BLOOD [...] | + + + | Blood | [facility] SPECIAL IMM + COAG [address] | | | [place] [address] | + + + + + | Narrative | + + | Alternate forms of testing such as fructosamine should be considered for | | monitoring termination clerk glycemic control in patients with: Increased red [...] | re | [address] | [place] [address] | | | B | | | [...] Self | [birth year] | Home: | [address] | | | al/Fam | | 1971 | [phone] [place] [address] | | | [place] | | | [address] | | + +--------+ +--------+ + +
--- OUTSIDE RECORDS SUMMARY | ~2017-10-14 | XMS | Encounter Summary ---
Demographics + + + | Address | [address] [facility] [address] | | | [place] [address] | + + + | Home Phone | | + + + | Preferred Language | Unknown | + + + | Marital Status | | + + + | Yarsani Affiliation | 1013 | + + + | Race | Unknown | + + + | Ethnic Group | Unknown | + + + Author + + + | Author | [facility] [employer] | + + + | Organization [...] | [place] | | | | | [address] | | + + + + + | Arden Terrazas | ECON | Unknown | | + + + + + Care Team Providers + +------+ + | Care Welding Machine Operator Arc Name | Role | Phone | + +------+ + | Yuriy Cardenas PA-C | PCP | | + +------+ + Encounter Details +--------+ + + + + | Date | Type | Department | Care Team | Description | +--------+ + + + + | 07/25/ | Orders Only | [facility] | Myrna Poe CMA | | | 2017 | | Pulmonology [address] | | | | | | [address] | | | | | | [place] | | | | | | [address] | | | | | | [phone] | | | +--------+ + + + [...] [place] | | | | | | [address] | | | | | | | | +--------+---------+ + + + as of this encounter Visit Diagnoses Not on filein this encounter"
--- OUTSIDE RECORDS SUMMARY | ~2017-10-14 | XMS | Encounter Summary ---
Demographics + + + | Address | [address] [facility] [address] | | | [place] [address] | + + + | Home Phone | | + + + | Preferred Language | Unknown | + + + | Marital Status | | + + + | Advent Affiliation | 1013 | + + + | Race | Unknown | + + + | Ethnic Group | Unknown | + + + Author + + + | Author | [facility] [employer] | + + + | Organization | [facility] | + + + [...] [place] | | | | | [address] | | + + + + + | Arden Terrazas | ECON | Unknown | | + + + + + Care Team Providers + +------+ + | Care Night Shift Supervisor Name | Role | Phone | [...] | Radiology | Diagnoses | [place], | [address] | | | | | Malignant | MD Na | [address] | | | | | neoplasm of | [address] | | | | | lower lobe | [place] | [place], [place] | | | | | of left lung | Ave | [address] Phone: | | | | | (HCC) | [place], | [phone] | | | | | Procedures | [place] [address] | | | | | | CT chest | Phone: | | | | | | abdomen | [phone] | | | | | | pelvis with | Fax: | | | | | | IV contrast | [phone] | | + +--------+ + + + + Encounter Details +--------+ + + + + | Date | Type | Department | Care Team | Description | +--------+ + + + + | 07/26/ | Orders Only | [facility] | Na Reno MD | Malignant neoplasm | | 2018 | | Hematology and | [address] | of lower lobe of | | | | Oncology [address] | [place] | left lung (HCC) | | | | [address] | [address] | (Primary Dx) | | | | [facility] [place] | | | | | | [address] | | | | | | [phone] | | | +--------+ + + + [...] [place] | | | | | | [address] | | | | | | | [...]
[~2017-10-14 04:59] MED LIST changes: +CILOXAN5 ML OD
[2017-10-14] MEDS ORDERED: LASIX40 MG PO (05:16)
[2017-10-14] MEDS ORDERED: KEFLEX500 MG PO (05:31)
== END 2017-10-14 05:56 | disposition home or self-care (01) ==
LOC: ED 04:59
PROC: 2W2QX4Z Dressing of Right Lower Leg using Bandage (ICD-10-PCS; principal; 2017-10-14)
DX: T24.231A Burn of second degree of right lower leg, initial encounter (principal); T31.0 Burns involving less than 10% of body surface; E11.9 Type 2 diabetes mellitus without complications; I10 Essential (primary) hypertension; Z87.891 Personal history of nicotine dependence; Z88.8 Allergy status to other drugs, medicaments and biological substances; Z91.040 Latex allergy status; Z88.2 Allergy status to sulfonamides; Z88.5 Allergy status to narcotic agent; Z79.4 Long term (current) use of insulin; Z79.82 Long term (current) use of aspirin; Z79.899 Other long term (current) drug therapy; X08.8XXA Exposure to other specified smoke, fire and flames, initial encounter
CPT/HCPCS: 16020; 99282

== ENCOUNTER 2018-03-20 18:17 | Emergency (ER) | payer MEDICARE, MEDICAID ==
[~2018-03-20] VITALS: Ht 167.6 cm; Wt 88.5 kg
[~2018-03-20 18:17] MED LIST changes: +LASIX40 MG PO; +OXYCODONE HCL5 MG PO
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
[2018-03-20] MEDS ORDERED: AUGMENTIN 875-1 EACH PO (19:21)
[2018-03-20] MEDS ORDERED: TESSALON PERLE100 MG PO ×2 (19:21→19:31)
[2018-03-20] MEDS ORDERED: CEFPODOXIME PR200 MG PO (19:31)
== END 2018-03-20 19:36 | disposition home or self-care (01) ==
LOC: ED 18:17
DX: J01.90 Acute sinusitis, unspecified (principal); E11.9 Type 2 diabetes mellitus without complications; I10 Essential (primary) hypertension; J45.909 Unspecified asthma, uncomplicated; Z95.5 Presence of coronary angioplasty implant and graft; Z87.891 Personal history of nicotine dependence; Z88.2 Allergy status to sulfonamides; Z88.5 Allergy status to narcotic agent; Z88.8 Allergy status to other drugs, medicaments and biological substances; Z91.040 Latex allergy status; Z79.4 Long term (current) use of insulin; Z79.82 Long term (current) use of aspirin; Z79.899 Other long term (current) drug therapy
CPT/HCPCS: 99283

== ENCOUNTER 2019-10-16 23:55 | Emergency (ER) | payer MEDICARE, MEDICAID ==
[~2019-10-16] VITALS: Ht 167.6 cm; Wt 88.5 kg
--- OUTSIDE RECORDS SUMMARY | ~2019-10-16 | XMS | Encounter Summary ---
Demographics + + + | Address | [address] | | | [place] [address] | + + + | Home Phone | | + + + | Preferred Language | Unknown | + + + | Marital Status | | + + + | Baptist Affiliation | PRE | + + + | Race | White | + + + | Ethnic Group | Not or | + + + Author + + + | Author | [facility] | + + + | Organization | [facility] | + + + | Address | Unknown | + + + | Phone | Unavailable | + + + Support + + + + + | Name | Relationship | Address | Phone | + + + + + | Dustin Terrazas | ECON | [address] | Unavailable | | | | #[place] | | | | | [address] | | + + + + + | Bebe Terrazas | ECON | Unknown | Unavailable | + + + + + | Arden Terrazas | ECON | Unknown | | + + + + + Care Team Providers + +------+ + | Care Psychologist Developmental Name | Role | Phone | + +------+ + | Yuriy Cardenas PA-C | PCP | | + +------+ + Encounter Details +--------+ + + + + | Date | Type | Department | Care Team | Description | +--------+ + + + + | 09/13/ | Telephone | [facility] | Eric Rashid MD | | | 2020 | | Clinics at S | [address] | | | | | [address] | [address] | | | | | [facility] for | [place] [address] | | | | | Health and Healing, | [phone] | | | | | [address] | | | | | | [place], [place] | | | | | | [address] | | | | | | [phone] | | | +--------+ + + + + Social History + + + +--------+ + | Tobacco Use | Types | Packs/Day | Years | Date | | | | | Used | | + + + +--------+ + | Former Smoker | Cigarettes | 0.5 | 20 | Quit: 05/01/2017 | + + + +--------+ + + +---+---+---+ | Smokeless Tobacco: | | | | | Never Used | | | | + +---+---+---+ + + +---------+ + | Alcohol Use | Drinks/Week | oz/Week | Comments | + + +---------+ + | No | 0 Standard drinks | 0.0 | | | | or equivalent | | | + + +---------+ + + + + | Sex Assigned at | Date Recorded | | | | + + + | Not on file | | + + + + + + + | Job Start Date | Occupation | Industry | + + + + | Not on file | Not on file | Not on file | + + + + + + + + | Travel History | Travel Start | Travel End | + + + + + + | No recent travel history available. | + + + + + + | COVID-19 Exposure | Response | Date Recorded | + + + + | In the last month, have you been in contact | Unable to assess | 09/08/2019 5:29 PM | | with someone who was confirmed or | | PDT | | suspected to have Coronavirus / COVID-19? | | | + + + + documented as of this encounter Plan of Treatment Not on filedocumented as of this encounter Visit Diagnoses Not on filedocumented in this encounter"
--- OUTSIDE RECORDS SUMMARY | ~2019-10-16 | XMS | Encounter Summary ---
Demographics + + + | Address | [address] | | | [place] [address] | + + + | Home Phone | | + + + | Preferred Language | Unknown | + + + | Marital Status | | + + + | Mormonism Affiliation | PRE | + + + | Race | White | + + + | Ethnic Group | Not or | + + + Author + + + | Author | [facility] | + + + | Organization | [facility] | + + + | Address [...] #[place] | | | | | [address] | | + + + + + | Bebe Terrazas | ECON | Unknown | Unavailable | + + + + + | Ardenjostin Hammondi | ECON | Unknown | | + + + + + Care Team Providers + +------+ + | Care Day Worker Name | Role | Phone | + +------+ + | Zora Haddad DO | PCP | | + +------+ + Encounter Details +--------+ + + + + | Date | Type | Department | Care Team | Description | +--------+ + + + + | 10/02/ | Hospital | Diagnostic Imaging | | | | 2012 | Encounter | Services at [facility] | | | | | | [address] | | | | | | [facility]ie Darwin [facility] | | | | | | [address] | | | | | | [place], [place] | | | | | | [address] | | | | | | [phone] | | | +--------+ + + + + Social History + +-------+ +--------+------+ | Tobacco Use | Types | Packs/Day | Years | Date | | | | | Used | | + +-------+ +--------+------+ | Former Smoker | | | | | + +-------+ +--------+------+ + + +---------+ + | Alcohol Use | Drinks/Week | oz/Week | Comments | + + +---------+ + | Not Asked | | | | + + +---------+ + [...] recent travel history available. | + + documented as of this encounter Plan of Treatment Not on filedocumented as of this encounter Procedures + +--------+ + + + | Procedure Name | Priori | Date/Time | Associated Diagnosis | Comments | | | ty | | | | + +--------+ + + + | X-RAY SCOLI SPINE | Routin | 10/02/2012 | Failed back | Results for this | | ENTR RADHA AP &LAT | e | 4:59 PM | surgical syndrome | procedure are in the | | | | PDT | | results section. | + +--------+ + + + documented in this encounter Results X-RAY SCOLI SPINE ENTR RADHA AP &LAT (10/02/2012 4:59 PM PDT) + + + + + + | Component | Value | Ref Range | Performed | Pathologist | | | | | At | Signature | + + + + + + | SPINE ENTR | STUDY: SPINE ENTR SRVY | | | | | SRVY STDY | STDY AP & LAT 10/02/12 | | | | | AP & LAT | 16:59:00 COMPARISON: CT | | | | | | lumbar spine 10/02/12. | | | | | | HISTORY: Presurgical | | | | | | planning. FINDINGS: | | | | | | There is approximately | | | | | | 20 degrees levoscoliosis | | | | | | of the lumbar spine. | | | | | | There isneutral | | | | | | coronal balance and 12.0 | | | | | | cm positive sagittal | | | | | | imbalance. | | | | | | Vertebralbody heights | | | | | | maintained. No | | | | | | spondylolisthesis is | | | | | | seen. Anterior and | | | | | | posteriorspinal fusion | | | | | | with posterior | | | | | | decompression seen at | | | | | | the lower lumbar | | | | | | spineextends from L4 to | | | | | | S1 with pedicle screws | | | | | | and radiolucent rods. | | | | | | Diskectomy | | | | | | andintervertebral grafts | | | | | | project in expected | | | | | | position at L4-L5 and | | | | | | L5-S1. Mildmultilevel | | | | | | degenerative disk | | | | | | disease is seen of the | | | | | | thoracic and upper | | | | | | lumbarspine. No | | | | | | hardware failure or | | | | | | loosening is observed. | | | | | | No soft | | | | | | tissueabnormality is | | | | | | detected. IMPRESSION: 20 | | | | | | degrees lumbar | | | | | | levoscoliosis. 12 cm | | | | | | positive sagittal | | | | | | imbalance. L4-S1 | | | | | | anterior and posterior | | | | | | spinal fusion in normal | | | | | | alignment. No hardware | | | | | | orgraft complications. | | | | | | Mild multilevel thoracic | | | | | | and lumbar degenerative | | | | | | disk disease. Attending | | | | | | Radiologists: JENNIFER | | | | | | REENA TERRYuthor: | | | | | | JENNIFER TERRY MD I | | | | | | have personally viewed | | | | | | this procedure/exam, | | | | | | reviewed this report, | | | | | | and madechanges to it | | | | | | where appropriate. 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
--- OUTSIDE RECORDS SUMMARY | ~2019-10-16 | XMS | Encounter Summary ---
Demographics + + + | Address | [address] | | | [place] [address] | + + + | Home Phone | | + + + | Preferred Language | Unknown | + + + | Marital Status | | + + + | Christianity Affiliation | PRE | + + + | Race | White | + + + | Ethnic Group | Not or | + + + Author + + + | Author | [facility] | + + + | Organization | [facility] | + + + | [...] #[place] | | | | | [address] | | + + + + + | Bebe Terrazas | ECON | Unknown | Unavailable | + + + + + | Arden Terrazas | ECON | Unknown | | + + + + + Care Team Providers + +------+ + | Care Template Reproduction Technician Name | Role | Phone | + +------+ + | Yuriy Cardneas PA-C | PCP | | + +------+ + Encounter Details +--------+ + + + + | Date | Type | Department | Care Team | Description | +--------+ + + + + | 06/09/ | Telephone | [facility] | Kirk Sawyer, | | | 2018 | | Clinics at S | MD [address] | | | | | [address] | [place], [place] | | | | | [facility] | [address] | | | | | Health and Healing, | [phone] | | | | | [address] | | | | | | [place], [place] | | | | | | [address] | | | | | | [phone] | | | +--------+ + + + [...]
--- OUTSIDE RECORDS SUMMARY | ~2019-10-16 | XMS | Encounter Summary ---
Demographics + + + | Address | [address] | | | [place] [address] | + + + | Home Phone | | + + + | Preferred Language | Unknown | + + + | Marital Status | | + + + | Buddhism Affiliation | PRE | + + + | Race | White | + + + | Ethnic Group | Not or | + + + Author + + + | Author | [facility] | + + + | Organization | [facility] | + + + | Address [...] #[address] | | | | | [address] | | + + + + + | Bebe Terrazas | ECON | Unknown | Unavailable | + + + + + | Arden Terrazas | ECON | Unknown | | + + + + + Care Team Providers + +------+ + | Care Social Science Manager Name | Role | Phone | + +------+ + | Yuriy Cardenas PA-C | PCP | | + +------+ + Encounter Details +--------+ + + + + | Date | Type | Department | Care Team | Description | +--------+ + + + + | 06/24/ | MyChart | [facility] Primary Care | Yuriy Cardenas, | Medication refill | | 2020 | Encounter | at [place] [address] | PA-C [address] | | | | | [address] | [address] | | | | | [place], [place] | [place], [place] | | | | | [address] | [address] | | | | | [phone] | [phone] | | | | | | | | +--------+ + + + [...]
--- OUTSIDE RECORDS SUMMARY | ~2019-10-16 | XMS | Encounter Summary ---
Demographics + + + | Address | [address] | | | [place] [address] | + + + | Home Phone | | + + + | Preferred Language | Unknown | + + + | Marital Status | | + + + | Nondenominational Affiliation | PRE | + + + | Race | White | + + + | Ethnic Group | Not or | + + + Author + + + | Author | [facility] | + + + | Organization | [facility] | + + + | Address [...] #[address] | | | | | [address] | | + + + + + | Bebe Terrazas | ECON | Unknown | Unavailable | + + + + + | Arden Terrazas | ECON | Unknown | | + + + + + Care Team Providers + +------+ + | Care Machine Operator Assistant Name | Role | Phone | + +------+ + | Yuriy Cardenas PA-C | PCP | | + +------+ + Encounter Details +--------+ + + + + | Date | Type | Department | Care Team | Description | +--------+ + + + + | 09/25/ | MyChart | [facility] Primary Care | Yuriy Cardenas, | RE: Still pretty | | 2020 | Encounter | at [place] [address] | PA-C [address] | sick.... | | | | [address] | [address] | | | | | [place], [place] | [place], [place] | | | | | [address] | [address] | | | | | [phone] | [phone] | | | | | | | [...]
--- OUTSIDE RECORDS SUMMARY | ~2019-10-16 | XMS | Encounter Summary ---
Demographics + + + | Address | [address] | | | [place] [address] | + + + | Home Phone | | + + + | Preferred Language | Unknown | + + + | Marital Status | | + + + | Baptist Affiliation | PRE | + + + | Race | White | + + + | Ethnic Group | Not or | + + + Author + + + | Author | [facility] | + + + | Organization | [facility] | + + + | Address [...] #[address] | | | | | [address] | | + + + + + | Bebe Terrazas | ECON | Unknown | Unavailable | + + + + + | Arden Terrazas | ECON | Unknown | | + + + + + Care Team Providers + +------+ + | Care Table Operator Name | Role | Phone | + +------+ + | Yuriy Cardenas PA-C | PCP | | + +------+ + Encounter Details +--------+ + + + + | Date | Type | Department | Care Team | Description | +--------+ + + + + | 09/13/ | Telephone | [facility] | Eric Rashid MD | | | 2020 | | Clinics at S | [address] | | | | | [address] | [address] | | | | | [facility] for | [place] [address] | | | | | Health and Healing, | [phone] | | | | | [address] | | | | | | [place], [place] | | | | | | [address] | | | | | | [phone] | | | +--------+ + + + [...]
--- OUTSIDE RECORDS SUMMARY | ~2019-10-16 | XMS | Encounter Summary ---
Demographics + + + | Address | [address] | | | [place] [address] | + + + | Home Phone | | + + + | Preferred Language | Unknown | + + + | Marital Status | | + + + | Latter-Day Affiliation | PRE | + + + | Race | White | + + + | Ethnic Group | Not or | + + + Author + + + | Author | [facility] | + + + | Organization | [facility] | + + + | Address [...] #[address] | | | | | [address] | | + + + + + | Bebe Terrazas | ECON | Unknown | Unavailable | + + + + + | Arden Terrazas | ECON | Unknown | | + + + + + Care Team Providers + +------+ + | Care Director Of Retail Analytics Name | Role | Phone | + +------+ + | Yuriy Cardenas PA-C | PCP | | + +------+ + Reason for Visit + + + | Reason | Comments | + + + | Medication | | | management | | + + + Encounter Details +--------+ + + + + | Date | Type | Department | Care Team | Description | +--------+ + + + + | 11/25/ | Telephone | [facility] Primary Care | Yuriy Cardenas, | Medication | | 2019 | | at [place] [address] | PA-C [address] | management | | | | [facility] | [facility] | | | | | [facility] [place], [place] | [place], [place] | | | | | [address] | [address] | | | | | [phone] | [phone] | | | | | | | [...] filedocumented as of this encounter Visit Diagnoses + + | Diagnosis | + + | Non-small cell cancer of left lung (HCC) | + + | Other chronic postprocedural pain | + + documented in this encounter"
--- OUTSIDE RECORDS SUMMARY | ~2019-10-16 | XMS | Encounter Summary ---
Demographics + + + | Address | [address] [facility] [address] | | | [place] [address] | + + + | Home Phone | | + + + | Preferred Language | Unknown | + + + | Marital Status | | + + + | Jehovah'S Witness Affiliation | 1013 | + + + | Race | Unknown | + + + | Ethnic Group | Unknown | + + + Author + + + | Author | [facility] | | | and [place] | + + + | Organization | [facility] | | | and [place] | + + + | Address | Unknown | + + + | Phone | Unavailable | + + + Support + + + + + | Name | Relationship | Address | Phone | + + + + + | Dustin Terrazas | ECON | [place] | | | | | [address] | | + + + + + | Bebe Terrazas | ECON | [address] | | | | [place], [place] | | | | | [address] | | + + + + + Care Team Providers + +------+ + | Care Plumber Apprentice Name | Role | Phone | + +------+ + | Ki Senior NP | PCP | | + +------+ + Encounter Details +--------+ + + + + | Date | Type | Department | Care Team | Description | +--------+ + + + + | 03/28/ | Orders Only | [facility] | Bob, | | | 2017 | | [address] | [place], | | | | | [place]TE | [address] | | | | | [address] | [place], | | | | | [phone] | [place] [address] | | | | | | [phone] | | | | | | | | +--------+ + + + + Social History + +-------+ +--------+------+ | Tobacco Use | Types | Packs/Day | Years | Date | | | | | Used | | + +-------+ +--------+------+ | Current Every Day | | | | | | Smoker | | | | | + +-------+ +--------+------+ + +---+---+---+ | Smokeless Tobacco: | | | | | Never Used | | | | + +---+---+---+ + + + | Sex Assigned at | Date Recorded | | | | + + + | Not on file | | + + + documented as of this encounter Functional Status + + + + | Functional Status | Response | Date of Assessment | + + + + | Are you deaf or do you have serious | No | 02/13/2017 | | difficulty hearing? | | | + + + + | Are you blind or do you have serious | No | 02/13/2017 | | difficulty seeing, even when wearing | | | | glasses? | | | + + + + | Do you have serious difficulty walking or | No | 02/13/2017 | | climbing stairs? (5 years old or older) | | | + + + + | Do you have difficulty dressing or bathing? | No | 02/13/2017 | | (5 years old or older) | | | + + + + | Because of a physical, mental, or emotional | No | 02/13/2017 | | condition, do you have difficulty doing | | | | errands alone such as visiting a doctor's | | | | office or shopping? [15 years old or | | | | older)] | | | + + + + + + + + | Cognitive Status | Response | Date of Assessment | + + + + | Because of a physical, mental, or emotional | No | 02/13/2017 | | condition, do you have serious difficulty | | | | concentrating, remembering, or making | | | | decisions? (5 years old or older) | | | + + + + documented as of this encounter Plan of Treatment Not on filedocumented as of this encounter Procedures + +--------+ + + + | Procedure Name | Priori | Date/Time | Associated Diagnosis | Comments | | | ty | | | | + +--------+ + + + | REFERENCE LAB TEST | Routin | 03/28/2017 | | Results for this | | | e | 8:54 AM | | procedure are in the | | | | PST | | results section. | + +--------+ + + + | CCP ANTIBODIES, IGG | Routin | 03/28/2017 | | Results for this | | IGA | e | 8:54 AM | | procedure are in the | | | | PST | | results section. | + +--------+ + + + | SIOBHAN PROFILE, REFLEX | Routin | 03/28/2017 | | Results for this | | | e | 8:54 AM | | procedure are in the | | | | PST | | results section. | + +--------+ + + + | RHEUMATOID FACTOR, | Routin | 03/28/2017 | | Results for this | | QUANT | e | 8:54 AM | | procedure are in the | | | | PST | | results section. | + +--------+ + + + documented in this encounter Results Reference Lab Test Panel (03/28/2017 8:54 AM PST) + + + + + + | Component | Value | Ref Range | Performed | Pathologist | | | | | At | Signature | + + + + + + | TEST | FUNGAL PANEL 2, ID AND | | EXTERNAL | | | INFORMATION | CF | | LAB | | + + + + + + | Test Code | [id number] | | EXTERNAL | | | | | | LAB | | + + + + + + | Result | SEE BELOWComment: | | EXTERNAL | | | | -ASPERGILLUS FLAVUS | | LAB | | | | ABNEGATIVE-ASPERGILLUS | | | | | | NIGER | | | | | | ABNEGATIVE-ASPERGILLUS | | | | | | FUMIGATUS | | | | | | ABNEGATIVEREFERENCE | | | | | | RANGE: | | | | | | NEGATIVE-INTERPRETIVE | | | | | | CRITERIA: | | | | | | Negative: Antibody | | | | | | not detected | | | | | | Positive: Antibody | | | | | | detectedA positive | | | | | | result is represented by | | | | | | 1 or moreprecipitin | | | | | | bands, and may indicate | | | | | | fungus ball,allergic | | | | | | bronchopulmonary | | | | | | aspergillosis (DANIEL) | | | | | | orinvasive | | | | | | aspergillosis. | | | | | | Generally, the | | | | | | appearanceof 3-4 bands | | | | | | indicates either fungus | | | | | | ball or DANIEL.-BLASTO AB | | | | | | IDNEGATIVEREFERENCE | | | | | | RANGE: | | | | | | NEGATIVE-INTERPRETIVE | | | | | | CRITERIA: | | | | | | NEGATIVE: | | | | | | Antibody Not Detected | | | | | | | | | | | | POSITIVE: Antibody | | | | | | DetectedA positive | | | | | | result is diagnostic of | | | | | | active orrecent | | | | | | blastomycosis and is | | | | | | found in | | | | | | [id number]% of | | | | | | proven cases of | | | | | | blastomycosis.-COCCIDIOI | | | | | | FABIANA | | | | | | ANTIBODYNEGATIVEREFERENC | | | | | | E RANGE: | | | | | | NEGATIVE-INTERPRETIVE | | | | | | CRITERIA: | | | | | | NEGATIVE: | | | | | | Antibody Not Detected | | | | | | | | | | | | POSITIVE: Antibody | | | | | | Detected The | | | | | | immunodiffusion (ID) | | | | | | procedure correlates | | | | | | bothin sensitivity and | | | | | | clinical utility with | | | | | | the CFtest. The ID test, | | | | | | which detects IgG | | | | | | directed tothe "F" | | | | | | antigen, becomes | | | | | | positive within 4 | | | | | | weeksafter infection and | | | | | | remains positive | | | | | | throughoutclinically | | | | | | active disease. It is | | | | | | most useful inconfirming | | | | | | the specificity of low | | | | | | CF titers, whereline(s) | | | | | | of identity are formed | | | | | | with referenceantisera. | | | | | | Positive ID reactions | | | | | | are diagnostic | | | | | | forcoccidioidomycosis | | | | | | and usually indicate | | | | | | active orrecent disease | | | | | | and remain detectable | | | | | | for up to 1year | | | | | | thereafter.-YEAST PHASE | | | | | | ANTIBODY<1:8-MYCELIAL | | | | | | PHASE | | | | | | ANTIBODY<1:8REFERENCE | | | | | | RANGE: <1:8 | | | | | | INTERPRETIVE | | | | | | CRITERIA: | | | | | | <1:8 | | | | | | Antibody Not Detected | | | | | | | | | | | | > or = 1:8 | | | | | | Antibody | | | | | | DetectedComplement-fixat | | | | | | ion (CF) titers greater | | | | | | than orequal to 1:8 are | | | | | | generally considered | | | | | | evidenceindicative of | | | | | | histoplasmosis. Higher | | | | | | titersincrease the | | | | | | probability of | | | | | | infection. | | | | | | However,positive titers | | | | | | are also seen with | | | | | | fungalinfections other | | | | | | than histoplasmosis, | | | | | | andconfirmation of | | | | | | antibody specificity | | | | | | withimmunodiffusion | | | | | | procedures is | | | | | | recommended.Changing | | | | | | titers are useful both | | | | | | in diagnosis andin | | | | | | assessment of treatment | | | | | | efficacy.This test was | | | | | | developed and its | | | | | | analytical | | | | | | performancecharacteristi | | | | | | cs have been determined | | | | | | by [facility] | | | | | | [facility]fect[facility] | | | | | | Disease. It has not been | | | | | | cleared or approved | | | | | | byFDA. This assay has | | | | | | been validated pursuant | | | | | | to the CLIAregulations | | | | | | and is used for clinical | | | | | | purposes. | | | | + + + + + + + + | Specimen | + + | | + + + +---------+ + + | Performing | Address | City/State/Zipcode | Phone Number | | Organization | | | | + +---------+ + + | EXTERNAL LAB | | | | + +---------+ + + CCP Antibodies, IgG IgA (03/28/2017 8:54 AM PST) + + + + + + | Component | Value | Ref Range | Performed | Pathologist | | | | | At | Signature | + + + + + + | Cyclic | <5 | CU | EXTERNAL | | | Citrullin | Comment: | | LAB | | | Peptide Ab | Reference range: <19.9 | | | | | | NEGATIVE 0 TO 19.9 | | | | | | POSITIVE >19.9 | | | | | | | | | | + + + + + + + + | Specimen | + + | Blood specimen | | (specimen) | + + + +---------+ + + | Performing | Address | City/State/Zipcode | Phone Number | | Organization | | | | + +---------+ + + | EXTERNAL LAB | | | | + +---------+ + + SIOBHAN Profile, Reflex (03/28/2017 8:54 AM PST) + + + + + + | Component | Value | Ref Range | Performed | Pathologist | | | | | At | Signature | + + + + + + | SIOBHAN | NEGATIVEComment: | | EXTERNAL | | | | Reference range: | | LAB | | | | NEGATIVEA MULTIPLEX | | | | | | SCREEN FOR 11 | | | | | | AUTOANTIBODIES (DSDNA, | | | | | | SM, RIBOSOMAL | | | | | | P,CHROMATIN, REACH TRUCK OPERATOR, SM | | | | | | REACH TRUCK OPERATOR, SCL-70, CENTROMERE | | | | | | B, SSA, SSB AND BELL-1) | | | | | | WASPERFORMED AND NO | | | | | | AUTOANTIBODIES WERE | | | | | | DETECTED. | | | | + + + + + + | ANCA Screen | <1:20Comment: REFERENCE | | EXTERNAL | | | | RANGE: <1:20 | | LAB | | + + + + + + | ANCA | <0.2Comment: Reference | U/mL | EXTERNAL | | | Proteinase | range: <1.0 Unit: | | LAB | | | 3 | AINEGATIVE | | | | | | < 1.0POSITIVE | | | | | | EQUAL TO | | | | | | OR >1.0PR3 ANTIBODY IS A | | | | | | MARKER FOR RISHI'S | | | | | | GRANULOMATOSIS AND IS | | | | | | RARELYDETECTED IN | | | | | | MICROSCOPIC | | | | | | POLYARTERITIS.THE | | | | | | QUANTITY OF PR3 ANTIBODY | | | | | | GENERALLY PARALLELS | | | | | | DISEASE ACTIVITY,WHERE | | | | | | AN INCREASE IN DISEASE | | | | | | IS ACCOMPANIED BY | | | | | | INCREASING VALUES OFPR3 | | | | | | ANTIBODY.ANTIBODY TO PR3 | | | | | | AN ELASTINOLYTIC NEURAL | | | | | | SERINE PROTEASE, | | | | | | ISRESPONSIBLE FOR THE | | | | | | CYTOPLASMIC PATTERN OF | | | | | | ANTI NEUTROPHIL | | | | | | CYTOPLASMICANTIBODIES. | | | | + + + + + + | Myeloperoxi | <0.2Comment: Reference | U/mL | EXTERNAL | | | dase | range: <1.0 Unit: | | LAB | | | Antibody | AINEGATIVE | | | | | | < 1.0POSITIVE | | | | | | EQUAL TO | | | | | | OR >1.0ANTIBODY TO MPO | | | | | | IS ASSOCIATED WITH ORGAN | | | | | | LIMITED VASCULITIS | | | | | | INCLUDINGNECROTIZING AND | | | | | | CRESCENTIC | | | | | | GLOMERULONEPHRITIS.THIS | | | | | | ASSAY IS USEFUL IN | | | | | | CONFIRMING MPO SPECIFIC | | | | | | ANTIBODIES IN SERATHAT | | | | | | ARE POSITIVE FOR ANTI | | | | | | NEUTROPHIL CYTOPLASMIC | | | | | | ANTIBODIES OF | | | | | | THEPERINUCLEAR | | | | | | TYPE.TYPICALLY THE LEVEL | | | | | | OF MPO ANTIBODY | | | | | | PARALLELS DISEASE | | | | | | ACTIVITIES,WHERE | | | | | | INCREASING DISEASE | | | | | | ACTIVITY IS ASSOCIATED | | | | | | WITH INCREASING | | | | | | MPOANTIBODY LEVELS. | | | | + + + + + + + + | Specimen | + + | Blood specimen | | (specimen) | + + + +---------+ + + | Performing | Address | City/State/Zipcode | Phone Number | | Organization | | | | + +---------+ + + | EXTERNAL LAB | | | | + +---------+ + + Rheumatoid Factor, Quant (03/28/2017 8:54 AM PST) + +-------+ + + + | Component | Value | Ref Range | Performed | Pathologist | | | | | At | Signature | + +-------+ + + + | RHEUMATOID | <10 | [iU]/mL | EXTERNAL | | | FACTOR | | | LAB | | + +-------+ + + + + + | Specimen | + + | Blood specimen | | (specimen) | + + + +---------+ + + | Performing | Address | City/State/Zipcode | Phone Number | | Organization | | | | + +---------+ + + | EXTERNAL LAB | | | | + +---------+ + + documented in this encounter Visit Diagnoses Not on filedocumented in this encounter
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
--- OUTSIDE RECORDS SUMMARY | ~2019-10-16 | XMS | Encounter Summary ---
Demographics + + + | Address | [address] | | | [place] [address] | + + + | Home Phone | | + + + | Preferred Language | Unknown | + + + | Marital Status | | + + + | Catholic Affiliation | PRE | + + + | Race | White | + + + | Ethnic Group | Not or | + + + Author + + + | Author | [facility] | + + + | Organization | [facility] | + + + | Address | Unknown | + + + | Phone | Unavailable | + + + Support + + + + + | Name | Relationship | Address | Phone | + + + + + | Dustin Terrazas | ECON | [address] | Unavailable | | | | [address] | | | | | [address] | | + + + + + | Bebe Terrazas | ECON | Unknown | Unavailable | + + + + + | Arden Terrazas | ECON | Unknown | | + + + + + Care Team Providers + +------+ + | Care Bundle Shaker Name | Role | Phone | + +------+ + | Yuriy Cardenas PA-C | PCP | | + +------+ + Encounter Details +--------+--------+ + + + | Date | Type | Department | Care Team | Description | +--------+--------+ + + + | 06/09/ | Refill | [facility] Primary [facility] | Yuriy Cardenas, | | | 2018 | | at [place] [address] | PA-C [id number] | | | | [address] | [address] | | | | | [facility] [place], [place] | [place], [place] | | | | | [address] | [address] | | | | | [phone] | [phone] | | | | | | | | +--------+--------+ + + + Social History + + [...] + | Diagnosis | + + | 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
--- OUTSIDE RECORDS SUMMARY | ~2019-10-16 | XMS | Encounter Summary ---
Demographics + + + | Address | [address] | | | [place] [address] | + + + | Home Phone | | + + + | Preferred Language | Unknown | + + + | Marital Status | | + + + | Episcopal Affiliation | PRE | + + + | Race | White | + + + | Ethnic Group | Not or | + + + Author + + + | Author | [facility] | + + + | Organization | [facility] | + + + | Address [...] [id number] [place] | | | | | [address] | | + + + + + | Bebe Terrazas | ECON | Unknown | Unavailable | + + + + + | Arden Terrazas | ECON | Unknown | | + + + + + Care Team Providers + +------+ + | Care Administrative Dietitian Name | Role | Phone | + +------+ + | Yuriy Cardenas PA-C | PCP | | + +------+ + Reason for Visit + + + | Reason | Comments | + + + | Medication Refill | | + + + | Medication | | | management | | + + + Encounter Details +--------+---------+ + + + | Date | Type | Department | Care Team | Description | +--------+---------+ + + + | 07/07/ | Office | [facility] | Yuriy Cardenas, | Type 2 diabetes | | 2019 | Visit | at [place] [address] | PA-C [address] | mellitus with | | | | [address] | [address] | diabetic | | | | [facility] [place], [place] | [place], [place] | polyneuropathy, with | | | | [phone] | [phone] | long-term current | | | | [phone] | [phone] | use of insulin (HCC) | | | | | | (Primary Dx); | | | | | | Non-small cell | | | | | | cancer of left lung | | | | | | (HCC); Other chronic | | | | | | postprocedural | | | | | | pain; Mass of | | | | | | subcutaneous tissue; | | | | | | Abnormal prominence | | | | | | of rib; Mild | | | | | | intermittent asthma | | | | | | with acute | | | | | | exacerbation; | | | | | | Leukocytosis, | | | | | | unspecified type | +--------+---------+ + + + Social History [...] + + + | Blood Pressure | 124/82 | 07/07/2018 11:43 AM | | | | | PDT | | + + + + + | Pulse | 88 | 07/07/2018 11:43 AM | | | | | PDT | | + + + + + | Temperature | 36.5 C (97.7 F) | 07/07/2018 11:43 AM | | | | | PDT | | + + + + + | Respiratory Rate | - | - | | + + + + + | Oxygen Saturation | - | - | | + + + + + | Inhaled Oxygen | - | - | | | Concentration | | | | + + + + + | Weight | 81.2 kg (179 lb) | 07/07/2018 11:43 AM | | | | | PDT | | + + + + + | Height | - | - | | + + + + + | Body Mass Index | 28.89 | 10/04/2017 3:31 PM | | | | | PDT | | + + + + + documented in this encounter Patient Instructions Patient Instructions Yuriy Cardenas PA-C - 07/07/2018 9:00 AM PDTIt is quite possible that the weight loss is due to the Jardiance, and that the spots under your skin are appearing a nd noticeable because of the weight loss. We of course need to worry about recurrence and s pread of your cancer. Since you have the chest CT today and will already be having the IV c ontrast, hopefully they can extend this to your abdomen and pelvis. It would make sense to get your labs drawn but if you need to have it done at the [facility] use of timing that is OK. I hope your A1c has dropped a lot, I expect it will have. If down dramatically we could pr obably stop your sliding scale and reduce your number of checks per day to 2, though we may want to slightly up your Levemir if we do that. I am fine with the pain control at this level right now. We will see what they think at [facility] oncologist's today. I hope the sorting machine operator is on board with all the changes we have made. Electronically sign ed by Yuriy Cardenas PA-C at 07/07/2018 1:03 PM PDT documented in this encounter Progress Notes Adam Mccrary MD,MPH - 07/07/2018 9:00 AM PDTIn accordance with [facility] s tatus, this chart was reviewed by me on 07.14.18. Ez Mccrary Yuriy Rangel PA-C - 07/07/2018 9:00 AM PDT SUBJECTIVE: Nancy is a 47 y.o. female who presents for follow up of diabetes and below issues. She has CT scheduled today for follow up of her lung CA. Has been going into "coughing jag s" where she feels like she cannot even catch her breath. She even considered going to [facility] but was reticent to do this in [place]. Also notes she is coughing up sputum that looks different, similar to when she was diagnose d. It is brownish, only a couple of episodes of blood. The sputum has a lot of bubbles in it. Worries that she could have recurrence of her cancer. Having a lot of sweats/chills. Noticing her L side Due to see oncologist today after the CT. Meets with sorting machine operator on August 05 as well. She reports the following: no polyuria or polydipsia, no hypoglycemia, no medication side effects noted Home BG range has been 115-140 fasted. Non-fasted readings range from low 100's to probabl y max 175. No episodes of symptomatic hypoglycemia. Has gone down a fair amount on her insulin, 15u of Levemir BID. Novolog dosing is SS, and not needing every meal. Range is from 3u-15u. Most of the time if she needs will be 3-5u. Normally eats 2 meals on most days, more snacking through the day until dinner. Feels that the Jardiance is really helpful for her with her heart issues. Can tell with th is when her CHF is flared more. Taking meds regularly. Denies any SE's with these. Finds that she is sometimes needing to adjust her diuretic a bit due to being on the Jardia nce. Does not check home BP's regularly. Pain control is most of the time OK, but her L sided pain post surgery has flared pretty ea sily with daily activities. Continues to have a fair amount of nerve pain that radiates to her breast. ROS: Denies CP/tightness, no GUERIN, no palpitations, no lightheadedness/dizziness, not having visual or motor changes. OBJECTIVE: BP 124/82 (BP Location: Left upper arm, Patient Position: Sitting) | Pulse 88 | Temp 36.5 C (97.7 F) (Oral) | Wt 81.2 kg (179 lb) | BMI 28.89 kg/m | BSA 1.94 m Gen: alert, in NAD, on O2 per NC Lungs: bilateral diffuse expiratory wheezes, greatest in bases. Post-neb, significant redu ction in wheezes and decreased WOB Heart: RRR with no murmur/rub/gallop Thorax: L anterior lower ribcage notably prominent as prior with mild TTP, L flank with kami deedee 5cm soft bulge, mildly TTP and unchanged from prior. L lateral hip with soft subcutaneo us mass, approx 3-4cm, mildly TTP, without irregularity Psych: slightly anxious but generally concordant mood and affect, no pressured speech, disp lays normal thought content, reasoning intact, shows good insight Recent Labs 10/04/17 1655 03/28/18 1607 A1C 12.6* 11.7* NA Date Value Ref Range Status 03/28/2018 136 136 - 145 mmol/L Final K Date Value Ref Range Status 03/28/2018 4.4 3.4 - 5.0 mmol/L Final ANIONGAP Date Value Ref Range Status 03/28/2018 8 4 - 11 mmol/L Final BUN Date Value Ref Range Status 03/28/2018 17 6 - 20 mg/dL Final No results found for: CHOL, HDL, LDL, LDLDIRECT, VLDL, NONHDL ASSESSMENT & PLAN: ICD-10-CM 1. Type 2 diabetes mellitus with diabetic polyneuropathy, with long-term current use of ins ulin (HCC) E11.42 HEMOGLOBIN A1C, BLOOD Z79.4 COMPLETE METABOLIC SET (NA,K,CL,CO2,BUN,CREAT,GLUC,CA,AST,ALT,BILI TOTAL,ALK PHOS,AL B,PROT TOTAL) 2. Non-small cell cancer of left lung (HCC) C34.92 morphine SR 10 mg oral capsule,extend.re lease pellets oxyCODONE (immediate release) 5 mg oral tablet CBC ONLY DISCONTINUED: morphine SR 10 mg oral capsule,extend.release pellets DISCONTINUED: oxyCODONE (immediate release) 5 mg oral tablet DISCONTINUED: morphine SR 10 mg oral capsule,extend.release pellets DISCONTINUED: oxyCODONE (immediate release) 5 mg oral tablet 3. Other chronic postprocedural pain G89.28 morphine SR 10 mg oral capsule,extend.release p wilma oxyCODONE (immediate release) 5 mg oral tablet DISCONTINUED: morphine SR 10 mg oral capsule,extend.release pellets DISCONTINUED: oxyCODONE (immediate release) 5 mg oral tablet DISCONTINUED: morphine SR 10 mg oral capsule,extend.release pellets DISCONTINUED: oxyCODONE (immediate release) 5 mg oral tablet 4. Mass of subcutaneous tissue R22.9 CANCELED: CT ABDOMEN AND PELVIS W IV CONTRAST 5. Abnormal prominence of rib M89.8X8 CANCELED: CT ABDOMEN AND PELVIS W IV CONTRAST 6. Mild intermittent asthma with acute exacerbation J45.21 ipratropium-albuterol (DUO-NEB) nebulizer solution 3 mL NEBULIZER TREATMENT-BACK OFFICE 7. Leukocytosis, unspecified type D72.829 CBC ONLY Pt understandably concerned given lung CA history. Advised it is quite possible that the w eight loss is due to the SGLT2-inhibitor, and that the spots under her skin are appearing an d noticeable because of the weight loss. We of course need to worry about recurrence and sp read of her cancer. Since she has lung CT today and will already be having the IV contrast, hopefully they can extend this to abdomen and pelvis. Order placed. Due to get her labs drawn but if needing to have done at [facility] because of timing that is OK. Am hopeful A1c has dropped significantly, based upon home readings I expect it will have. If down dramatically we could look at stopping her sliding scale and reduce number of BG kyleigh cks per day to 2, though we may want to slightly up her Levemir if we do that. Appears to be managing appropriately with the pain control at this level right now, has tap ered significantly from last year. We will see what evaluation at the oncologist's today suggests. Believe her sorting machine operator will be on board with the changes we have made given her history a nd risk. Advised regular scheduled use of her inhaler, appears likely asthma flared due to pollen al lergies but would not want to consider steroid prior to eval with her oncologist. Pt agrees with plan. documented in this en counter Plan of Treatment + + +--------+ + + | Name | Type | Priori | Associated Diagnoses | Order Schedule | | | | ty | | | + + +--------+ + + | NEBULIZER | Procedures | Routin | Mild intermittent | Ordered: 07/07/2018 | | TREATMENT-BACK | | e | asthma with acute | | | OFFICE | | | exacerbation | | + + +--------+ + + documented as of this encounter Results COMPLETE METABOLIC SET (NA,K,CL,CO2,BUN,CREAT,GLUC,CA,AST,ALT,BILI TOTAL,ALK PHOS,ALB,PROT TOTAL) (09/26/2018 4:21 PM PDT) + + + + + + | Component | Value | Ref Range | Performed | Pathologist | | | | | At | Signature | + + + + + + | GLUCOSE, | 327 (H) | 70 - 99 mg/dL | [facility] | | | PLASMA | | | LABORATORY | | | (LAB) | | | SERVICES, | | | | | | CORE | | + + + + + + | BUN, PLASMA | 17 | 6 - 20 mg/dL | [facility] | | | (LAB) | | | LABORATORY | | | | | | SERVICES, | | | | | | CORE | | + + + + + + | CREATININE | 0.47 (L) | 0.60 - 1.10 | [facility] | | | PLASMA | | mg/dL | LABORATORY | | | (LAB) | | | SERVICES, | | | | | | CORE | | + + + + + + | EGFR | >60 | >60 mL/min | [facility] | | | - | | | LABORATORY | | | [place] | | | SERVICES, | | | | | | CORE | | + + + + + + | EGFR NON | >60 | >60 mL/min | [facility] | | | -RADHA | | | LABORATORY | | | [facility] | | | SERVICES, | | | | | | CORE | | + + + + + + | SODIUM, | 136 | 136 - 145 | [facility] | | | PLASMA | | mmol/L | LABORATORY | | | (LAB) | | | SERVICES, | | | | | | CORE | | + + + + + + | POTASSIUM, | 4.4 | 3.4 - 5.0 | [facility] | [...] + + + + | CALCIUM, | 10.4 (H) | 8.6 - 10.2 | [facility] | | | PLASMA | | mg/dL | LABORATORY | | | (LAB) | | | SERVICES, | | | | | | CORE | | + + + + + + | CALCIUM(ALB | 10.8 (H) | 8.6 - 10.2 | [facility] | | | CORRECTED) | | mg/dL | LABORATORY | | | | | | SERVICES, | | | | | | CORE | | + + + + + + | BILIRUBIN | 0.3 | 0.3 - 1.2 mg/dL | [facility] | | | TOTAL | | | LABORATORY | | | | | | SERVICES, | | | | | | CORE | | + + + + + + | TOTAL | 7.8 | 6.4 - 8.2 g/dL | [facility] | | | PROTEIN, | | | LABORATORY | | | PLASMA | | | SERVICES, | | | (LAB) | | | CORE | | + + + + + + | ALBUMIN, | 3.5 | 3.5 - 4.7 g/dL | [facility] | | | PLASMA | | | LABORATORY | | | (LAB) | | | SERVICES, | | | | | | CORE | | + + + + + + | ALK PHOS | 156 (H) | 42 - 98 U/L | [facility] | | | | | | LABORATORY | | | | | | SERVICES, | | | | | | CORE | | + + + + + + | AST(SGOT) | 8 | <=41 U/L | [facility] | | | | | | LABORATORY | | | | | | SERVICES, | | | | | | CORE | | + + + + + + | ALT (SGPT) | 27 | <=60 U/L | [facility] | | | | | | LABORATORY | | | | | | SERVICES, | | | | | | CORE | | + + + + + + | ANION GAP | 8 | 4 - 11 mmol/L | [facility] | | | | | | LABORATORY | | | | | | SERVICES, | | | | | | CORE | | + + + + + + | ANION | 9 | 4 - 11 mmol/L | [facility] | | | GAP(ALB | | | LABORATORY | | | CORRECTED) | | | SERVICES, | | | | | | CORE | | + + + + + + | POTASSIUM | No Hemo | | [facility] | | | CMNT | | | LABORATORY | | | | | | SERVICES, | | | | | | CORE | | + + + + + + | BILI T CMNT | No Hemo | | [facility] | | | | | | LABORATORY | | | | | | SERVICES, | | | | | | CORE | | + + + + + + | AST CMNT | No Hemo | | [facility] | | | | | [...] using the MDRD equation recommended by the National | [facility] | | Kidney Disease Education Program. Estimated GFR Interpretive | LABORATORY | | Information: <60 mL/min/1.73 sq m Chronic Kidney | SERVICES, CORE | | Disease <15 mL/min/1.73 sq m Kidney Failure | | | Estimated GFR greater than 60 mL/min/1.73 sq m is of limited clinical | | | value. The MDRD equation is not valid in the following situations: - | | | Patients under 18 years of age - Severe malnutrition or obesity - | | | Vegetarian diet - Rapidly changing kidney function - Amputees, | | | paraplegics, or other muscle-wasting diseases | | + + + + + + + + | Performing | Address | City/State/Zipcode | Phone Number | | Organization | | | | + + + + + | [facility] | [address] | [place] [address] | | | SERVICES, CORE | [address] | | | + + + + + HEMOGLOBIN A1C, BLOOD (09/26/2018 4:21 PM PDT) + + + + + + | Component | Value | Ref Range | Performed | Pathologist | | | | | At | Signature | + + + + + + | HEMOGLOBIN | 12.1 (H)Comment: Hgb A1C | <5.7 % | [...] + + + + + + | ESTIMATED | 301Comment: The | mg/dL | [facility] | | | AVERAGE | estimated Average | | LABORATORY | | | GLUCOSE | Glucose (eAG) number is | | SERVICES, | | | | calculated from the | | SPECIAL IMM | | | | result of the A1c test. | | + COAG | | | | The eAG shows what the | | | | | | average blood glucose | | | | | | was over the previous 2 | | | | | | to 3 months. | | | | + + + + + + + + | Specimen | + + | Blood - Blood | | (substance) | + + + + + | Narrative | Performed At | + + + | Alternate forms of testing such as fructosamine should be | [facility] | | considered for monitoring terminal press operator glycemic control in patients with: | LABORATORY [...] | + + + + + | [facility] | [address] | [place] [address] | | | SERVICES, SPECIAL | [address] | | | | IMM + COAG | | | | + + + + + documented in this encounter Visit Diagnoses + + | Diagnosis | + + | Type 2 diabetes mellitus with diabetic polyneuropathy, with long-term current use of | | insulin (HCC) - Primary | + + | Non-small cell cancer of left lung (HCC) | + + | Other chronic postprocedural pain | + + | Mass of subcutaneous tissue | + + | Abnormal prominence of rib | + + | Mild intermittent asthma with acute exacerbation Unspecified asthma, with | | exacerbation | + + | Leukocytosis, unspecified type | + + documented in this encounter Administered Medications + +--------+ +------+------+------+ | Medication Order | MAR | Action | Dose | Rate | Site | | | Action | Date | | | | + +--------+ +------+------+------+ | ipratropium-albuterol (DUO-NEB) | Given | 07/08/19 | 3 mL | | | | nebulizer solution 3 mL 3 mL, | | 19 1:48 | | | | | inhalation, ONCE, 1 dose, Mon | | PM PDT | | | | | 07/07/18 at 1330 | | | | | | + +--------+ +------+------+------+ +---+---+ | | | +---+---+ documented in this encounter
--- OUTSIDE RECORDS SUMMARY | ~2019-10-16 | XMS | Encounter Summary ---
Demographics + + + | Address | [address] | | | [place] [address] | + + + | Home Phone | | + + + | Preferred Language | Unknown | + + + | Marital Status | | + + + | Mormon Affiliation | PRE | + + + | Race | White | + + + | Ethnic Group | Not or | + + + Author + + + | Author | [facility] | + + + | Organization | [facility] | + + + | [...] #[id number] [place] | | | | | [id number] | | + + + + + | Bebe Terrazas | ECON | Unknown | Unavailable | + + + + + | Arden Terrazas | ECON | Unknown | | + + + + + Care Team Providers + +------+ + | Care Lieutenant Governor Name | Role | Phone | + +------+ + | Zora Haddad DO | PCP | | + +------+ + Reason for Visit + + + | Reason | Comments | + + + | New patient | | | consultation | | + + + | LBP - Low back pain | | + + + | Overweight | | + + + | Post Surgical Pain | | + + + Consultation (Routine) +--------+--------+ + + + + | Status | Reason | Specialty | Diagnoses / | Referred By | Referred To | | | | | Procedures | Contact | Contact | +--------+--------+ + + + + | Closed | | Pain | Diagnoses | Kobe, | Tesfaye, | | | | Management | Lumbar | Annita Rojo, | LEANNE Kuo | | | | | radiculopath | [place] [address] | [address] | | | | | y | Jakob Vicente | JAKOB VICENTE | | | | | Procedures | [place], [place] | [place] | | | | | CONSULT TO | [id number] | [id number] | | | | | PAIN CENTER | Phone: | | | | | | | [phone] | | | | | | | Fax: | | | | | | | [phone] | | +--------+--------+ + + + + Encounter Details +--------+---------+ + + + | Date | Type | Department | Care Team | Description | +--------+---------+ + + + | 02/19/ | Office | [facility] Comprehensive | Barbara Carlin, | Lumbar | | 2012 | Visit | Pain Center at | ANP | post-laminectomy | | | | [facility] | | syndrome (Primary | | | | [address] | | Dx); Overweight | | | [facility] | | | | and Healing, | | | | | | Building | | | | | | Floor [place], [place] | | | | | | [address] | | | | | | [phone] | | | +--------+---------+ + + + Social History + + + +--------+ + | Tobacco Use | Types | Packs/Day | Years | Date | | | | | Used | | + + + +--------+ + | Former Smoker | Cigarettes | 0.5 | 20 | Quit: 08/19/2012 | + + + +--------+ + + +---+---+---+ | Smokeless Tobacco: | | | | | Never Used | | | | + +---+---+---+ + + +---------+ + | Alcohol Use | Drinks/Week | oz/Week | Comments | + + +---------+ + | No | | | | + + +---------+ [...] + + + | Blood Pressure | 150/88 | 02/19/2013 1:18 PM | | | | | PST | | + + + + + | Pulse | 118 | 02/19/2013 1:18 PM | | | | | PST | | + + + + + | Temperature | - | - | | + + + + + | Respiratory Rate | 15 | 02/19/2013 1:18 PM | | | | | PST | | + + + + + | Oxygen Saturation | 98% | 02/19/2013 1:18 PM | | | | | PST | | + + + + + | Inhaled Oxygen | - | - | | | Concentration | | | | + + + + + | Weight | 103 kg (227 lb) | 02/19/2013 1:18 PM | | | | | PST | | + + + + + | Height | 167.6 cm (5' 6") | 02/19/2013 1:18 PM | | | | | PST | | + + + + + | Body Mass Index | 36.64 | 02/19/2013 1:18 PM | | | | | PST | | + + + + + documented in this encounter Patient Instructions Patient Instructions Barbara Carlin ANP - 02/19/2013 2:15 PM PSTAssessment and sydni caballero: Madalyn is here today with her for pain consult evaluation. She is post-op L3-4 L EFT extreme lateral interbody fusion, bilateral L3-4 foraminotomies, L3-S1 revision posterio r instrumented fusion 12/23/2012. Dr. Tanner is continuing to provide her opioid therapy pr escriptions during Madalyn's post-surgical period. Her current pain medication therapy is: Oxycodone 20 mg every four hours Gabapentin 300 mg three times a day Tizanidine 2 mg at bedtime At this time in her surgery recovery course, she should be able to start an opioid therapy taper. I suggest she decrease her oxycodone by 10 mg a day for one week, and 10 mg a day for second week. I recommend increasing the gabapentin by 300 mg at bedtime. This medication caused her kd re fatigue during the daytime and it has been difficult for her to increase this dose very q uickly. I would like her to try this therapy for one month. If this is not helping her pain level come down, then it would be appropriate to do a trial of pregabalin. We suggest starting pregabalin (Lyrica) at 75 mg at night, then increase to twice a day. T he target dose is 150 - 600 mg/day. The dose can be adjusted upwards every 3 - 7 days. Brittnee De La Cruz Nini was provided written instructions, we had a detailed PARQ discussion regardi ng this medication and its side effects, and she was instructed to call with any problems. 1. Diagnostic evaluation: She has a lumbar CT spine on order to have before her next spine surgery follow up. 2. Consult: I will check with Lety BEASLEY in Dr. Tanner's office to see if Madalyn can st art physical therapy. I would like Madalyn to start a walking program of 15 minutes a day at a s low pace. If she is cleared to start PT now, they can begin a stretching and strengthening p rogram for her low back and legs. 3. Nutrition: I recommend you meet with a electrolysis engineer for dietary advice for weight loss. Getting your weight down even 20 lbs would help you back pain considerably. It would also h elp keep your diabetes under control and help your heart health. Acetyl-L carnitine 1,000 mg twice a day. This is an amino acid supplement that can help ner ve health and can improve peripheral nerve pain. 5. Return to the pain center in six weeks. Call or check in by [facility] if you have any ques tions. I suggested the book, Managing Pain Before It Manages You, by Pat Dent M.D., Ph.D. This is an excellent self-help book with numerous appropriate suggestions for chronic mary n patients. We suggested that Ms. Terrazas discuss our consultation findings with her PCP, Zora grande DO and other involved health care providers. Thank you for this referral, it is my privilege to be part of Madalyn's health care team. Pleebenezer e free to contact me at any time if you have questions or concerns. LEANNE DIAS [facility] [address] [place] [address] Mail Code: [address] [address] documented in this encounter Progress Notes Summer Vogel MA - 02/19/2013 1:21 PM PST Review of Systems HENT: Positive for headaches. Respiratory: Asthma Cardiovascular: Positive for claudication and leg swelling. Gastrointestinal: Positive for heartburn. Musculoskeletal: Positive for back pain and joint pain. Neurological: Positive for sensory change. Endo/Heme/Allergies: DM Psychiatric/Behavioral: Positive for depression. The patient is nervous/anxious and has ins omnia. All other systems reviewed and are negative. Physical Exam Ortho Exam Neurologic Exam Barbara Go ANP - 02/19/2013 12:00 PM PST [facility] Office Visit 02/19/2013 Nancy Terrazas; ; : 1970 Ms. Terrazas was referred for pain management consultation by [facility] [address] [place] [phone] Chief Complaint Patient presents with New patient consultation LBP - Low back pain Overweight Post Surgical Pain History of Present Illness: Nancy Terrazas is a 42 year old female with pain located in lower back, hips, legs and toe numbness. She has been diagnosed with lumbar radiculopath y. She is referred to [facility] for consultation regarding this ongoing mary n problem. Today she is here with her spouse. Madalyn first injured her back at the age of 14 when she fell off a horse and broke her tailbon e. Over time her low back pain gradually increased and she had a L4-5 and L5-S1 TLIF March 2010, another spine procedure July [address] Leach and December 23, 2012 the procedure lis hiren below by Dr. Sivakumar Tanner [facility]: Postoperative Diagnoses: 1. Adjacent level degenerative disk disease at L3-4. 2. L4 radiculopathy. 3. Spondylosis. 4. Herniated nucleus pulposus at L3-4. Procedures Performed: 1. Direct lateral interbody fusion using [place] of L3-4 on the left lateral approach. 2. A posterior L3-S1 posterior instrumented fusion and removal of old hardware at L4, L5, a nd S1 bilaterally. 3. Revision of left-sided S1 screw. 4. Decompression, including laminectomies and bilateral neural foraminotomies of L3-4 with bilateral foraminotomies L2-3 and L3-4 through revision scar tissue close. 5. Posterolateral arthrodesis. 6. Navigated pedicle screw placement of new screws at L3 bilaterally. Madalyn has been referred to the pain center by Dr. Tanner's PA for a pain treatment plan. She was evaluated at the [facility] pain clinic and was to return to see them during her post-surgic al period but decided to establish care with this pain center. She has constant pain that is sharp, achy, burning and shooting. It is from her mid-low back, across both hips, and arou nd her left groin region and thigh. She has new numbness and pain in her right medial knee a nd lower leg and numbness in her right foot digits. Her pain is made worse by bending backwa rd, bending forward, climbing stairs, exercise, lifting, sexual activity, sitting, standing, stressful situations, walking and work. Her pain is improved by heat, lying down, medicati ons and relaxation. Ms. Terrazas's treatment has included medications such as: In the past she has taken hydromorphone, hydrocodone, morphine, demerol, oxycodone, Darvon and tramadol. Her current therapy is oxycodone 20 mg every 4 hours Gabapentin 300 mg three times a day is current therapy She has tried several muscle relaxants and has stopped them due to sleepiness She takes tylenol PM and melatonin as needed for sleep aide She takes ibuprofen as needed her nonmedication treatment has included: Back surgery improved her leg pain, but has left her with new areas of pain in her groin an d right calf Epidural steroid injections in the past did not change her back pain PT always made her back pain worse Ice and heat applications help control the pain social worker palliative care made her back pain worse Orthotics did not change her back pain TENS unit: no change Relaxation does not change her pain level TRACK WORKER Brief Pain Inventory: (ten= worst possible pain or complete interference) Right Now: 6 (02/19/13 1320) Least in 24 hours: 2 (02/19/13 1320) Worst in 24 hours: 8 (02/19/13 1320) Average: 6 (02/19/13 1320) % Relief (med/treat): 90 (02/19/13 1320) General Activity: 8 (02/19/13 1320) Mood: 6 (02/19/13 1320) Walking Ability: 7 (02/19/13 1320) Normal Work: 10 (02/19/13 1320) Relations with Others: 3 (02/19/13 1320) Enjoyment of Life: 9 (02/19/13 1320) Sexual Activity: 10 (02/19/13 1320) Sleep: 10 (02/19/13 1320) Past Medical History Diagnosis Date Obesity Lumbar radiculopathy Low back pain HTN (hypertension) Hyperlipidemia, mixed Type 2 diabetes mellitus Depressive disorder Migraine Asthma Thoracic or lumbosacral neuritis or radiculitis, unspecified Spinal stenosis, lumbar region, without neurogenic claudication Tachycardia PONV (postoperative nausea and vomiting) per patient she has had bad problems with vomiting after surgery. Thoracic or lumbosacral neuritis or radiculitis, unspecified Spinal stenosis, lumbar region, without neurogenic claudication Unspecified asthma GERD (gastroesophageal reflux disease) Past Surgical History Procedure Laterality Date Lumbar fusion 03/2010&12/24/12 L3-S1 Endometrial ablation 2001 Breast reduction surgery Sinus surgery Cholecystectomy Lithotripsy Cervical conization Tubal ligation Family History Problem Relation Hypertension Mother Asthma Mother Arthritis Mother Depression Mother Asthma Sister Depression Sister Asthma Grandmother Arthritis Grandmother Depression Grandmother Heart Disease Grandmother Allergies Father Allergies Sister Arthritis Father Arthritis Maternal Grandmother Blood Disease Sister Diabetes Mother Heart Disease Mother Heart Disease Maternal Grandmother Hypertension Maternal Grandmother Thyroid Mother History Alcohol Use No History Drug Use No Comment: hx marijuana History Social History Narrative Madalyn is and they have a 16 year old son Arden and 20 year old daughter Rakel. 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 Long time smoker, quit in August 3. Does not drink alcohol. Allergies Allergen Reactions Codeine Vomiting Morphine Vomiting Sulfur Nausea Current Outpatient Prescriptions Medication Sig ALBUTEROL INHL Inhale as needed. FLUoxetine 20 mg Oral capsule Take 20 mg by mouth once daily at bedtime. gabapentin 300 mg Oral capsule Take 1 capsule by mouth three times daily. Indications: Neuropathic Pain losartan 25 mg Oral tablet Take 25 mg by mouth once daily at bedtime. Indications: HYPE RTENSION metFORMIN 500 mg Oral tablet Take 500 mg by mouth two times daily. oxyCODONE, immediate release, 20 mg oral tablet Take 1 tablet by mouth every four hours as needed for severe pain. Indications: Neuropathic Pain polyethylene glycol 17 gram/dose Oral Powder Take 17 g by mouth once daily as needed. senna-docusate 8.6-50 mg Oral tablet Take 2 tablets by mouth two times daily. Discontin ue for loose stools or diarrhea tiZANidine 2 mg oral tablet Take 1 tablet by mouth every twelve hours as needed (muscle spasms). Max: 36 mg / day. No current facility-administered medications for this visit. Radiology/Diagnostic Tests: 05-26-2012 MRI SPINE LUMBAR WWO CONTRAST dated 05/26/2012 6:32 PM. CLINICAL DATA: Low back and right greater than left leg pain. COMPARISON: 11/21/09 TECHNIQUE: Axial and sagittal T1 and T2 weighted sequences were performed as per the [facility] ine protocol. Series were obtained both pre-and post gadolinium intravenous contrast. FINDINGS: Alignment is normal. Vertebral body heights are maintained. Postsurgical changes with associated artifact from instrumentation are noted posteriorly spanning the L4, L5 and S1 levels. Also noted are postsurgical changes from anterior fusion at L4-5 and L5-S1. Ther e is no subluxation. There is disk desiccation with mild disk space narrowing at L3-4. The signal along the visualized distal cord is normal. The conus terminates about the L1 level. At T12-L1, ther e is a small focal left of midline disk herniation. The central canal and neural foramen are patent. The L1-2 and L2-3 levels are unremarkable. At L3-4, there is disk bulge with new large supe rimposed central through right foraminal lobulated disk herniation. This results in severe c anal stenosis. There is severe narrowing of the lateral recesses bilaterally. There is pronounced bilatera l facet arthropathy. There is mild left and [id number] right foraminal narrowing. At L4-5, there is been interval posterior decompression along with the anterior fusion. Th ere is no significant foraminal narrowing. At L5-S1, there has been interval posterior decompression along with the anterior fusion. The neural foramen are patent. IMPRESSION: Interval postsurgical changes from anterior fusion at L4-5 and L5-S1 and also posteriorly spanning the L4 through S1 levels. New large central through right foraminal disk herniation at L3-4 severely narrowing the c anal. Verified by Antonio Joaquin MD on 05/27/2012 8:19 AM As part of today's visit the [facility] new patient questionnaire was review ed. Please refer to this document for additional details of her current pain problem, PMH, PSH, FH, SH, and ROS. In the questionnaire, Ms. Terrazas indicated that her goals and expectations from today's visi t included the followin. What do you expect from our pain program? Help in coping with the pain and A reduction in pain 47. What types of treatment do you expect from your visits to the [facility] ? Don't know and Other (describe): Help with managing my pain medications BP 150/88 | Pulse 118 | RR 15 | Ht 1.676 m (5' 6") | Wt 102.967 kg (227 lb) | SpO2 98% | BM I 36.66 kg/(m^2) ROS This data was entered by the MA, I have reviewed it and have no additions. Physical Exam Vitals reviewed. Constitutional: She is oriented to person, place, and time and well-developed, well-nourish ed, and in no distress. No distress. Here with spouse. Well-groomed, answering questions appropriately. HENT: Head: Normocephalic and atraumatic. Right Ear: External ear normal. Left Ear: External ear normal. Nose: Nose normal. Mouth/Throat: No oropharyngeal exudate. Eyes: Conjunctivae and EOM are normal. Pupils are equal, round, and reactive to light. Righ t eye exhibits no discharge. Left eye exhibits no discharge. No scleral icterus. Neck: Normal range of motion. Neck supple. No tracheal deviation present. No thyromegaly pr esent. Supple, without masses or lymphadenopathy. Normal ROM. Cardiovascular: Normal rate, regular rhythm, normal heart sounds and intact distal pulses. No murmur heard. Pulmonary/Chest: Effort normal. She has wheezes. She has no rales. She exhibits no tenderne ss. Moist hacking cough. No shortness of breath. Abdominal: Soft. Bowel sounds are normal. She exhibits no distension. There is no tendernes s. Musculoskeletal: Normal range of motion. She exhibits tenderness. She exhibits no edema. GAIT & STATION: symmetrical, unrestricted, steady and squat and rise SPINE: physiologic curvature Cervical spine: Curvature: physiologic Cervical active range of motion in degrees: Flexion: 20; not painful Extension: 5; not painful Right rotation + extension: not painful Left rotation + extension: not painful Spurling's: Left: Negative Right: Negative Thoracic Spine Curvature: decreased kyphosis Lumbar curvature: physiologic Lumbar active range of motion in degrees: Flexion: 20; painful and stiff Extension: 5; painful Right rotation + extension: painful Left rotation + extension: painful Shoulders: Full range of motion without crepitance or swelling. Even strength of upper extr emities and neck muscles. Firm muscles of buttocks and calves bilaterally. Straight Leg Raise (estimated degrees): Left: tightness, pain radiating to buttocks and thigh and back pain at 45 degrees Right: tightness, pain radiating to buttocks and calf and back pain at 45 degrees Myofascial tenderness: Across lumbar region, over right hip, left groin and thigh muscles, and right calf. No muscle masses or spasms. Manual tender point survey: 04/21 manual tender points positive Lumbopelvic examination: Abiel's: Negative Lymphadenopathy: She has no cervical adenopathy. Neurological: She is alert and oriented to person, place, and time. She has normal strength , normal reflexes and intact cranial nerves. She displays normal reflexes. No cranial nerve deficit. She exhibits normal muscle tone. Coordination normal. Sensory examination: intact light touch bilaterally in upper extremities, intact light touc h bilaterally in lower extremities and intact pin bilaterally in upper extremities intact pi n bilaterally in lower extremities Left groin, distal thigh muscle, right inner thigh and calf muscle have some numbness. Skin is warm, even temperature. Allodynia: absent Hyperalgesia: absent Hyperpathia: absent Dysesthesia: absent Skin: Skin is warm and dry. No rash noted. She is not diaphoretic. No erythema. No pallor. Psychiatric: Mood, memory, affect and judgment normal. Provides cogent, detailed medical history. Denies depression or anxiety. Even mood. Ortho Exam Neurologic Exam Mental Status Oriented to person, place, and time. Cranial Nerves CN III, IV, Pupils are equal, round, and reactive to light. Extraocular motions are normal. Motor Exam Strength Strength 5/5 throughout. BP 150/88 | Pulse 118 | RR 15 | Ht 1.676 m (5' 6") | Wt 102.967 kg (227 lb) | SpO2 98% | BM I 36.66 kg/(m^2) Impressions/Discussion: For today's evaluation, I have included my personal review of Ms. Terrazas's history and physi alex examination. I also used the following components in my medical decision making: Labor atory studies reviewed. Radiology Reports reviewed. Patient Active Problem List Diagnosis Date Noted Lumbar post-laminectomy syndrome 02/27/2013 Lumbar radiculopathy 12/22/2012 Overweight Long-term opioid use Assessment and recommendations: Madalyn is here today with her for pain consult evaluat ion. She is post-op L3-4 left extreme lateral interbody fusion, bilateral L3-4 foraminotomie s, L3-S1 revision posterior instrumented fusion 12/23/2012. Dr. Tanner is continuing to pro vide her opioid therapy prescriptions during Madalyn's post-surgical period. We discussed the [facility] post-spine surgery recovery period of 8-12 weeks of bone and tissue healing, in additi on to one to two year healing time before we know what her baseline physical functioning may be. I have encouraged her to be active with a daily walking program, eating a balanced diet to keep her diabetes under good control and getting good rest. Medications: Her current pain medication therapy is: Oxycodone 20 mg every four hours Gabapentin 300 mg three times a day Tizanidine 2 mg at bedtime At this time in her surgery recovery course, she should be able to start an opioid therapy taper. I suggest she decrease her oxycodone by 10 mg a day for one week, and 10 mg a day for second week. After the second week if she continues to improve with her level of physical f unctioning and having decrease in her pain level, she should continue to taper down her opio id dose. I recommend increasing the gabapentin by 300 mg at bedtime. This medication caused her kd re fatigue during the daytime and it has been difficult for her to increase this dose very q uickly. I would like her to try this therapy for one month. If this is not helping her pain level come down, then it would be appropriate to do a switch to a trial of pregabalin. If she starts the pregabalin in place of gabapentin: I suggest starting pregabalin (Lyrica) at 75 mg at night, then increase to twice a day. The target dose is 150 - 600 mg/day. The dose can be adjusted upwards every 3 - 7 days. 1. Diagnostic evaluation: She has a lumbar CT spine on order to have before her next spine surgery follow up. 2. Consult: I will check with Lety BEASLEY in Dr. Tanner's office to see if Madalyn can st art physical therapy. I would like Madalyn to start a walking program of 15 minutes a day at a s low pace. If she is cleared to start PT now, they can begin a stretching and strengthening p rogram for her low back and legs. 3. Nutrition: I recommend you meet with a electrolysis engineer for dietary advice for weight loss and diabetes control. Getting your weight down even 20 lbs would help you back pain consider ably. It would also help keep your diabetes under control and help your heart health. I recommend starting acetyl-L carnitine 1,000 mg twice a day. This is an amino acid supplem ent that can help nerve health and can improve peripheral nerve pain. It is an eeab-uxr-vjph ter supplement. 4. Mental health counseling: Madalyn appears to have good coping skills at this time and is adj usting to the physical restrictions she has currently due to her back problems. If she needs additional help with adjusting to her back problems, she could be referred to the pain psyc hology providers at any time for mental health counseling. 5. Return to the pain center in six weeks. Call or check in by [facility] if you have any ques tions. I suggested the book, Managing Pain Before It Manages You, by Pat Dent M.D., Ph.D. This is an excellent self-help book with numerous appropriate suggestions for chronic mary n patients. We suggested that Ms. Terrazas discuss our consultation findings with her PCP, Zora grande DO and other involved health care providers. Thank you for this referral, it is my privilege to be part of Madalyn's health care team. Pleas e free to contact me at any time if you have questions or concerns. LEANNE DIAS [facility] Mail Code[place] [place] [address] documented in this en counter Plan of Treatment Not on filedocumented as of this encounter Visit Diagnoses + + | Diagnosis | + + | Lumbar post-laminectomy syndrome - Primary Postlaminectomy syndrome, lumbar region | + + | Overweight(278.02) Overweight | + + documented in this encounter
--- OUTSIDE RECORDS SUMMARY | ~2019-10-16 | XMS | Encounter Summary ---
Demographics + + + | Address | [address] | | | [place] [address] | + + + | Home Phone | | + + + | Preferred Language | Unknown | + + + | Marital Status | | + + + | Hinduism Affiliation | PRE | + + + [...] [id number] [place] | | | | | [address] | | + + + + + | Bebe Terrazas | ECON | Unknown | Unavailable | + + + + + | Arden Terrazas | ECON | Unknown | | + + + + + Care Team Providers + +------+ + | Care Non Food Receiving Clerk Name | Role | Phone | + +------+ + | Zora Haddad DO | PCP | | + +------+ + Reason for Referral Diagnostic Testing (Routine) +--------+--------+ + + + + | Status | Reason | Specialty | Diagnoses / | Referred By | Referred To | | | | | Procedures | Contact | Contact | +--------+--------+ + + + + | Closed | | Radiology | Diagnoses | Antonio, | Rad Ct Scan | | | | | Failed back | Adama Rojo MD | [facility] [address] | | | | | surgical | | [address] | | | | | syndrome | | [facility] | | | | | Procedures | | [facility], | | | | | CT SPINE | | [address] Floor | | | | | LUMBAR WO | | [place], [place] | | | | | CONTRAST | | [address] | | | | | | | Phone: | | | | | | | [phone] | | | | | | | Fax: | | | | | | | [phone] | +--------+--------+ + + + + Reason for Visit Diagnostic Testing (Routine) +--------+--------+ + + + + | Status | Reason | Specialty | Diagnoses / | Referred By | Referred To | | | | | Procedures | Contact | Contact | +--------+--------+ + + + + | Closed | | Radiology | Diagnoses | Antonio, | Rad Ct Scan | | | | | Failed back | Adama Rojo MD | [address] | | | | | surgical | | [address] | | | | | syndrome | | [facility] | | | | | Procedures | | [facility], | | | | | CT SPINE | | [address] | | | | | LUMBAR WO | | [place], [place] | | | | | CONTRAST | | [address] | | | | | | | Phone: | | | | | | | [phone] | | | | | | | Fax: | | | | | | | [phone] | +--------+--------+ + + + + Encounter Details +--------+ + + + + | Date | Type | Department | Care Team | Description | +--------+ + + + + | 10/02/ | Hospital | Diagnostic Imaging | | | | 2012 | Encounter | Services at [facility] | | | | | | [address] | | | | | | [facility] | | | | | | [facility], [address] Floor | | | | | | [place], [place] | | | | | | [address] | | | | | | [phone] | | | +--------+ + + + [...] | + +--------+ + + + | CT SPINE LUMBAR WO | Routin | 10/02/2012 | Failed back | Results for this | | CONTRAST | e | 4:33 PM | surgical syndrome | procedure are in the | | | | PDT | | results section. | + +--------+ + + + documented in this encounter Results CT SPINE LUMBAR WO CONTRAST (10/02/2012 4:33 PM PDT) + + + + + + | Component | Value | Ref Range | Performed | Pathologist | | | | | At | Signature | + + + + + + | CT LUMBAR | EXAM: CT Lumbar spine | | | | | SPINE WO | without contrast | | | | | CONTRAST | HISTORY: Presurgical | | | | | | planning COMPARISON: | | | | | | Outside lumbar spine MRI | | | | | | 05/26/12 TECHNIQUE: CT | | | | | | lumbar spine without | | | | | | contrast, with 2D | | | | | | multiplanar | | | | | | reformations. | | | | | | FINDINGS:L4-5 | | | | | | laminectomies and L4-S1 | | | | | | posterior fusion with | | | | | | bilateral paraspinal | | | | | | rodsand pedicle screws | | | | | | are noted. Diskectomy | | | | | | with intervertebral | | | | | | graft placementis noted | | | | | | at L4-5 and L5-S1, with | | | | | | mild graft subsidence at | | | | | | both levels. Theleft | | | | | | L5 pedicle screw extends | | | | | | beyond the cortex of L5 | | | | | | vertebral body. | | | | | | Alignment: There is a | | | | | | mild levocurvature | | | | | | center upon L3-4. No | | | | | | subluxation. | | | | | | Vertebrae: No | | | | | | fractures or destructive | | | | | | changes L1-2: Mild | | | | | | diffuse disk bulge with | | | | | | no significant neural | | | | | | foraminal or spinalcanal | | | | | | stenosis. L2-3: | | | | | | Unremarkable L3-4: | | | | | | Diffuse disk bulge with | | | | | | disk osteophyte complex | | | | | | and bilateral | | | | | | facethypertrophy results | | | | | | in bilateral neural | | | | | | foraminal narrowing | | | | | | which is | | | | | | moderatelysevere in the | | | | | | right and mild on the | | | | | | left. Moderate-high | | | | | | grade spinalcalcinosis | | | | | | is better per she is on | | | | | | outside MRI. L4-5: | | | | | | Posterior disk | | | | | | osteophytes and | | | | | | hypertrophied facet | | | | | | joints results inmild | | | | | | bilateral neural | | | | | | foraminal narrowing. | | | | | | Posterior osteophytes | | | | | | encroach uponthe lateral | | | | | | recesses bilaterally. | | | | | | L5-S1: Posterior disk | | | | | | osteophyte complex | | | | | | results in mild neural | | | | | | foraminalnarrowing on | | | | | | the right. Paraspinal | | | | | | soft tissues: Within | | | | | | the soft tissue | | | | | | overlying L2-L3, there | | | | | | is aloculated fluid | | | | | | collection measuring 4.1 | | | | | | x 1.9 x 1.5 | | | | | | cm.ADDITIONAL COMMENTS: | | | | | | There is hepatic | | | | | | steatosis. | | | | | | IMPRESSION:Findings of | | | | | | L4-S1 posterior fusion, | | | | | | diskectomies with graft | | | | | | placement at L4-5and | | | | | | L5-S1, and L4 and L5 | | | | | | laminectomies. | | | | | | Multilevel | | | | | | degenerative | | | | | | changesresulting in | | | | | | variable degrees of | | | | | | neural foraminal and | | | | | | spinal canal | | | | | | narrowing,as detailed | | | | | | above. Small fluid | | | | | | collection in the soft | | | | | | tissues overlying L2-L3. | | | | | | Attending Radiologists: | | | | | | PHYLLIS BARKER, | | | | | | MDAuthor: KAMINI | | | | | | MD XAVIER I have | | | | | | personally viewed this | | | | | | procedure/exam, reviewed | | | | | | this report, and | | | | | | madechanges to it where | | | | | | appropriate. | | | | | | Final/Electronically | | | | | | signed / PHYLLIS | | | | | | LUCERO 10/02/2012 17:41 | | | | | | PM Pending final | | | | | | approval / KAMINI | | | | | | XAVIER 10/02/2012 | | | | | | 17:33 PM Preliminary / | | | | | | KAMINI PARK | | | | | | 10/02/2012 16:36 PM | | | | + + + + + + + + | Specimen | + + | | + + + +---------+ + + | Performing | Address | City/State/Zipcode | Phone Number | | Organization | | | | + +---------+ + + | [facility] DEPARTMENT OF | | | | | RADIOLOGY | | | | + +---------+ + + documented in this encounter Visit Diagnoses + + | Diagnosis | + + | 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
--- OUTSIDE RECORDS SUMMARY | ~2019-10-16 | XMS | Encounter Summary ---
Demographics + + + | Address | [address] | | | [place] [address] | + + + | Home Phone | | + + + | Preferred Language | Unknown | + + + | Marital Status | | + + + | Islam Affiliation | PRE | + + + | Race | White | + + + | Ethnic Group | Not or | + + + Author + + + | Author | [facility] | + + + | Organization | [facility] | + + + | Address | Unknown | + + + | Phone | Unavailable | + + + Support + + + + + | Name | Relationship | Address | Phone | + + + + + | Dustin Terrazas | ECON | [address] | Unavailable | | | | #[place], [place] | | | | | [address] | | + + + + + | Bebe Terrazas | ECON | Unknown | Unavailable | + + + + + | Arden Hammondi | ECON | Unknown | | + + + + + Care Team Providers + +------+ + | Care Parking Line Painter Name | Role | Phone | + +------+ + | Crissy Santoyo PA-C | PCP | | + +------+ + Encounter Details +--------+ + + + + | Date | Type | Department | Care Team | Description | +--------+ + + + + | 07/31/ | Results | [facility] | Abdias Barger MD | | | 2012 | Only | [address] | [address] [facility] | | | | | [place], [place] | [address] [place], | | | | | [address] | [place] [address] | | | | | | [phone] | | | | | | | | +--------+ + + + + Social History + +-------+ +--------+------+ | Tobacco Use | Types | Packs/Day | Years | Date | | | | | Used | | + +-------+ +--------+------+ | Never Assessed | | | | | + +-------+ +--------+------+ + + + | Sex Assigned at [...] | + +--------+ + + + | INR | Routin | 08/11/2012 | | Results for this | | | e | 5:55 PM | | procedure are in the | | | | PDT | | results section. | + +--------+ + + + | CBC W/DIFF, NO | Routin | 08/07/2012 | | Results for this | | REFLEX | e | 11:52 AM | | procedure are in the | | | | PDT | | results section. | + +--------+ + + + | SEDIMENTATION RATE | Routin | 08/07/2012 | | Results for this | | | e | 11:52 AM | | procedure are in the | | | | PDT | | results section. | + +--------+ + + + | URINALYSIS CULTURE & | Routin | 07/31/2012 | | Results for this | | SENSITIVITY IF | e | 2:13 PM | | procedure are in the | | INDICATED | | PDT | | results section. | + +--------+ + + + | CBC W/DIFF, NO | Routin | 07/31/2012 | | Results for this | | REFLEX | e | 2:13 PM | | procedure are in the | | | | PDT | | results section. | + +--------+ + + + | SEDIMENTATION RATE | Routin | 07/31/2012 | | Results for this | | | e | 2:13 PM | | procedure are in the | | | | PDT | | results section. | + +--------+ + + + | X-RAY SPINE | Routin | 07/31/2012 | | Results for this | | LUMBOSACRAL 3 VIEWS | e | 2:11 PM | | procedure are in the | | | | PDT | | results section. | + +--------+ + + + | MRI SPINE LUMBAR WWO | Routin | 07/31/2012 | | Results for this | | CONTR | e | 1:48 PM | | procedure are in the | | | | PDT | | results section. | + +--------+ + + + documented in this encounter Results INR (08/11/2012 5:55 PM PDT) + + + + + + | Component | Value | Ref Range | Performed | Pathologist | | | | | At | Signature | + + + + + + | THERAPY | None | | [facility] | | | | | | [facility] | | + + + + + + | PROTHROMBIN | 12.5 | 11.7 - 14.1 | [facility] | | | TIME | | second(s) | [facility] | | + + + + + + | INR | 1.0Comment: Recommended | | [facility] | | | | ranges for Protime INR: | | [facility] | | | | 2.0-3.0 for most | | | | | | medical and surgical | | | | | | thromboembolic states | | | | + + + + + + + + | Specimen | + + | | + + + + + + + | Performing | Address | City/State/Zipcode | Phone Number | | Organization | | | | + + + + + | [facility] | [address] | [place], [place] | | | LAB | | [id number] | | + + + + + | [facility] | [address] | [place], [place] | | | LAB | | [id number] | | + + + + + SEDIMENTATION RATE (08/07/2012 11:52 AM PDT) + +--------+ + + + | Component | Value | Ref Range | Performed | Pathologist | | | | | At | Signature | + +--------+ + + + | SEDIMENTATI | 48 (H) | 0 - 20 mm/hr | [facility] | | | ON RATE | | | [facility] | | + +--------+ + + + + + | Specimen | + + | | + + + + + + + | Performing | Address | City/State/Zipcode | Phone Number | | Organization | | | | + + + + + | [facility] | [address] | [place] | | | LAB | | [address] | | + + + + + | [facility] | [address] | [place] | | | LAB | | [address] | | + + + + + SUSAN Hoffman/LEONARDA HARPER (08/07/2012 11:52 AM PDT) + + + + + + | Component | Value | Ref Range | Performed | Pathologist | | | | | At | Signature | + + + + + + | WHITE CELL | 12.2 (H) | 4.5 - 10.5 | [facility] | | | COUNT | | x10(3)/mcL | [facility] | | + + + + + + | RED CELL | 4.59 | 4.20 - 5.40 | [facility] | | | COUNT | | x10(6)/mcL | [facility] | | + + + + + + | HEMOGLOBIN | 14.0 | 12.0 - 16.0 | [facility] | | | | | gm/dL | [facility] | | + + + + + + | HEMATOCRIT | 40.7 | 37.0 - 47.0 % | [facility] | | | | | | [facility] | | + + + + + + | MCV | 88.6 | 80.0 - 100.0 fL | [facility] | | | | | | [facility] | | + + + + + + | MCH | 30.6 | 27.0 - 34.0 pg | [facility] | | | | | | [facility] | | + + + + + + | MCHC | 34.5 | 32.0 - 36.0 | [facility] | | | | | gm/dL | [facility] | | + + + + + + | RDW | 13.5 | 11.5 - 14.5 % | [facility] | | | | | | [facility] | | + + + + + + | PLATELET | 297 | 150 - 400 | [facility] | | | COUNT | | x10(3)/mcL | [facility] | | + + + + + + | MPV | 8.7 | 7.4 - 10.4 fL | [facility] | | | | | | [facility] | | + + + + + + | NEUTROPHIL | 57.9 | 40.2 - 78.0 % | [facility] | | | % | | | [facility] | | + + + + + + | LYMPHOCYTE | 25.6 | 15.5 - 49.1 % | [facility] | | | % | | | [facility] | | + + + + + + | MONOCYTE % | 8.0 | 1.7 - 8.9 % | [facility] | | | | | | [facility] | | + + + + + + | EOS % | 7.7 (H) | 0.0 - 5.2 % | [facility] | | | | | | [facility] | | + + + + + + | BASO % | 0.8 | 0.0 - 2.0 % | [facility] | | | | | | [facility] | | + + + + + + | NEUTROPHIL | 7.1 | 0.9 - 7.7 | [facility] | | | # | | x10(3)/mcL | [facility] | | + + + + + + | LYMPHOCYTE | 3.1 | 1.0 - 3.4 | [facility] | | | # | | x10(3)/mcL | [facility] | | + + + + + + | MONOCYTE # | 1.0 (H) | 0.1 - 0.6 | [facility] | | | | | x10(3)/mcL | [facility] | | + + + + + + | EOS # | 0.9 (H) | 0.0 - 0.4 | [facility] | | | | | x10(3)/mcL | [facility] | | + + + + + + | BASO # | 0.1 | 0.0 - 0.2 | [facility] | | | | | x10(3)/mcL | [facility] | | + + + + + + + + | Specimen | + + | | + + + + + + + | Performing | Address | City/State/Zipcode | Phone Number | | Organization | | | | + + + + + | [facility] | [address] | [place], [place] | | | LAB | | [id number] | | + + + + + | [facility] | [address] | [place], [place] | | | LAB | | [id number] | | + + + + + SEDIMENTATION RATE (07/31/2012 2:13 PM PDT) + +--------+ + + + | Component | Value | Ref Range | Performed | Pathologist | | | | | At | Signature | + +--------+ + + + | SEDIMENTATI | 28 (H) | 0 - 20 mm/hr | [facility] | | | ON RATE | | | [facility] | | + +--------+ + + + + + | Specimen | + + | | + + + + + + + | Performing | Address | City/State/Zipcode | Phone Number | | Organization | | | | + + + + + | [facility] | [address] | [place], [place] | | | LAB | | [address] | | + + + + + | [facility] | [address] | [place], [place] | | | LAB | | [address] | | + + + + + URINALYSIS CULTURE & SENSITIVITY IF INDICATED (07/31/2012 2:13 PM PDT) + + + + + + | Component | Value | Ref Range | Performed | Pathologist | | | | | At | Signature | + + + + + + | CC/CATH? | Non-Cath | | [facility] | | | | | | [facility] | | + + + + + + | COLOR(UR) | Yellow | | [facility] | | | | | | [facility] | | + + + + + + | APPEARANCE | Hazy | | [facility] | | | | | | [facility] | | + + + + + + | GLUCOSE(UR) | Neg | Neg | [facility] | | | | | | [facility] | | + + + + + + | BILIRUBIN | Neg | Neg | [facility] | | | | | | [facility] | | + + + + + + | KETONES | Neg | Neg | [facility] | | | | | | [facility] | | + + + + + + | SPECIFIC | 1.024 | 1.003 - 1.029 | [facility] | | | GRAVITY | | | [facility] | | + + + + + + | BLOOD | Neg | Neg | [facility] | | | | | | [facility] | | + + + + + + | PH(UR) | 5.5 | 5.0 - 9.0 | [facility] | | | | | | [facility] | | + + + + + + | PROTEIN(LAB | 30 (A) | Neg mg/dL | [facility] | | | ) | | | [facility] | | + + + + + + | UROBILINOGE | Normal | Normal | [facility] | | | N | | | [facility] | | + + + + + + | NITRITES | Neg | Neg | [facility] | | | | | | [facility] | | + + + + + + | LEUKOCYTE | Neg | Neg | [facility] | | | ESTERASE | | | [facility] | | + + + + + + | WHITE CELLS | 2 | 0 - 5 /HPF | [facility] | | | | | | [facility] | | + + + + + + | SQUAMOUS | 2 | /LPF | [facility] | | | EPITHELIAL | | | [facility] | | + + + + + + | MUCOUS | Few | /LPF | [facility] | | | | | | [facility] | | + + + + + + | CALCIUM | 1+ | /HPF | [facility] | | | OXALATE | | | [facility] | | | INDRA | | | | | + + + + + + | CULTURE | No | | [facility] | | | ADDED? | | | [facility] | | + + + + + + + + | Specimen | + + | | + + + + + + + | Performing | Address | City/State/Zipcode | Phone Number | | Organization | | | | + + + + + | [facility] | [address] | [place], [place] | | | LAB | | [address] | | + + + + + | [facility] | [address] | [place], [place] | | | LAB | | [address] | | + + + + + CBC W/LEONARDA HARPER (07/31/2012 2:13 PM PDT) + + + + + + | Component | Value | Ref Range | Performed | Pathologist | | | | | At | Signature | + + + + + + | WHITE CELL | 14.4 (H) | 4.5 - 10.5 | [facility] | | | COUNT | | x10(3)/mcL | [facility] | | + + + + + + | RED CELL | 5.04 | 4.20 - 5.40 | [facility] | | | COUNT | | x10(6)/mcL | [facility] | | + + + + + + | HEMOGLOBIN | 15.0 | 12.0 - 16.0 | [facility] | | | | | gm/dL | [facility] | | + + + + + + | HEMATOCRIT | 45.4 | 37.0 - 47.0 % | [facility] | | | | | | [facility] | | + + + + + + | MCV | 90.0 | 80.0 - 100.0 fL | [facility] | | | | | | [facility] | | + + + + + + | MCH | 29.8 | 27.0 - 34.0 pg | [facility] | | | | | | [facility] | | + + + + + + | MCHC | 33.1 | 32.0 - 36.0 | [facility] | | | | | gm/dL | [facility] | | + + + + + + | RDW | 13.5 | 11.5 - 14.5 % | [facility] | | | | | | [facility] | | + + + + + + | PLATELET | 294 | 150 - 400 | [facility] | | | COUNT | | x10(3)/mcL | [facility] | | + + + + + + | MPV | 9.5 | 7.4 - 10.4 fL | [facility] | | | | | | [facility] | | + + + + + + | NEUTROPHIL | 62.0 | 40.2 - 78.0 % | [facility] | | | % | | | [facility] | | + + + + + + | LYMPHOCYTE | 27.2 | 15.5 - 49.1 % | [facility] | | | % | | | [facility] | | + + + + + + | MONOCYTE % | 7.0 | 1.7 - 8.9 % | [facility] | | | | | | [facility] | | + + + + + + | EOS % | 3.3 | 0.0 - 5.2 % | [facility] | | | | | | [facility] | | + + + + + + | BASO % | 0.5 | 0.0 - 2.0 % | [facility] | | | | | | [facility] | | + + + + + + | NEUTROPHIL | 8.9 (H) | 0.9 - 7.7 | [facility] | | | # | | x10(3)/mcL | [facility] | | + + + + + + | LYMPHOCYTE | 3.9 (H) | 1.0 - 3.4 | [facility] | | | # | | x10(3)/mcL | [facility] | | + + + + + + | MONOCYTE # | 1.0 (H) | 0.1 - 0.6 | [facility] | | | | | x10(3)/mcL | [facility] | | + + + + + + | EOS # | 0.5 (H) | 0.0 - 0.4 | [facility] | | | | | x10(3)/mcL | [facility] | | + + + + + + | BASO # | 0.1 | 0.0 - 0.2 | [facility] | | | | | x10(3)/mcL | [facility] | | + + + + + + + + | Specimen | + + | | + + + + + + + | Performing | Address | City/State/Zipcode | Phone Number | | Organization | | | | + + + + + | [facility] | [address] | [place] | | | LAB | | [address] | | + + + + + | [facility] | [address] | [place], [place] | | | LAB | | [address] | | + + + + + X-RAY SPINE LUMBOSACRAL 3 VIEWS (07/31/2012 2:11 PM PDT) + + | Specimen | + + | | + + + + + | Narrative | Performed At | + + + | LUMBAR SPINE, 2 VIEWS CLINICAL INFORMATION: Postop | [facility] | | evaluation. FINDINGS: Status post posterior fusion change | [facility]IOLOG[facility] | | from L4-S1. Disk spacer is well maintained. Mild disk space narrowing | | | throughout the lumbar spine from L3-S1. No fracture or malalignment. | | | Laminectomy change noted. IMPRESSION: 1. Postop | | | spine. 2. Nonspecific degenerative change. | | + + + + + | Procedure Note | + + | Interface, Lab Results [facility] - 10/25/2016 5:01 PM PDT LUMBAR SPINE, 2 | | VIEWSCLINICAL INFORMATION: Postop evaluation. FINDINGS: Status post posterior fusion | | change from L4-S1. Disk spacer is well maintained. Mild disk space narrowing throughout | | the lumbar spine from L3-S1. No fracture or malalignment. Laminectomy change noted. | | IMPRESSION: 1. Postop spine.2. Nonspecific degenerative change. | | | | | | | |FINDINGS: Status post posterior fusion change from L4-S1. Disk spacer is well maintained. M ild disk space narrowing throughout the lumbar spine from L3-S1. No fracture or malalignment . Laminectomy change noted. | | | | | | | |IMPRESSION: | | | | | | | |1. Postop spine. | | | | | | | |2. Nonspecific degenerative change. | + + + + + + + | Performing | Address | City/State/Zipcode | Phone Number | | Organization | | | | + + + + + | [facility] | [address] | [place], [place] | [phone] | | | | [address] | | + + + + + MRI SPINE LUMBAR WWO CONTR (07/31/2012 1:48 PM PDT) + + | Specimen | + + | | + + + + + | Narrative | Performed At | + + + | MRI OF THE LUMBAR SPINE WITH & WITHOUT CONTRAST CLINICAL | [facility] | | INFORMATION: Back pain, radiculopathy on the right. Fusion 07/16/12. | RADIOLOGY | | COMPARISON: 05/26/12 at [facility]. TECHNIQUE: | | | 1.5 lili imaging with and without 20 mL MultiHance IV. | | | FINDINGS: L4 through S1 pedicles screw fusion hardware creates | | | artifact, similar to comparison. Evidence of new surgery includes a | | | small dorsal epidural fluid collection centered at the L3-4 level. | | | This does not contribute to any mass effect upon the canal. Some of | | | the lower facet joints may have been resected, but the degree of | | | spinal canal stenosis appears similar to the comparison. There is | | | pronounced disk bulge at this level, with a new linear high signal | | | intensity zone in the midline. I do not see any obvious evidence of | | | diskectomy. Severe spinal canal stenosis remains, with the CSF | | | completely effaced from around the nerve roots. There is elevation of | | | the posterior longitudinal ligament above and below the disk, with | | | enhancement deep to this; likely this is expanded epidural veins. Mild | | | to moderate unchanged foraminal narrowing at L3-4. The | | | other levels are unchanged from comparison. At T12-L1, a small left | | | paracentral protrusion of disk and bone creates mild spinal canal | | | narrowing. I see no other distinct potential cause for right leg | | | radiculopathy. IMPRESSION: 1. Prior surgery at | | | the L3-4 level. A small dorsal epidural fluid collection does not | | | appear to contribute to mass effect upon the sac. 2. | | | Persistent prominent disk bulge at L3-4 with severe spinal canal | | | stenosis. The L4 and below nerve roots may be impinged. | | + + + + + | Procedure Note | + + | Interface, Lab Results [facility] - 10/25/2016 5:01 PM PDT MRI OF THE LUMBAR SPINE WITH | | & WITHOUT CONTRASTCLINICAL INFORMATION: Back pain, radiculopathy on the right. Fusion | | 07/16/12. COMPARISON: 05/26/12 at [facility].TECHNIQUE: 1.5 lili imaging with and | | without 20 mL MultiHance IV.FINDINGS: L4 through S1 pedicles screw fusion hardware | | creates artifact, similar to comparison. Evidence of new surgery includes a small dorsal | | epidural fluid collection centered at the L3-4 level. This does not contribute to any | | mass effect upon the canal. Some of the lower facet joints may have been resected, but | | the degree of spinal canal stenosis appears similar to the comparison. There is | | pronounced disk bulge at this level, with a new linear high signal intensity zone in the | | midline. I do not see any obvious evidence of diskectomy. Severe spinal canal stenosis | | remains, with the CSF completely effaced from around the nerve roots. There is elevation | | of the posterior longitudinal ligament above and below the disk, with enhancement deep | | to this; likely this is expanded epidural veins. Mild to moderate unchanged foraminal | | narrowing at L3-4.The other levels are unchanged from comparison. At T12-L1, a small | | left paracentral protrusion of disk and bone creates mild spinal canal narrowing. I see | | no other distinct potential cause for right leg radiculopathy. IMPRESSION: 1. Prior | | surgery at the L3-4 level. A small dorsal epidural fluid collection does not appear to | | contribute to mass effect upon the sac.2. Persistent prominent disk bulge at L3-4 with | | severe spinal canal stenosis. The L4 and below nerve roots may be impinged. | |There is elevation of the posterior longitudinal ligament above and below the disk, with en hancement deep to this; likely this is expanded epidural veins. Mild to moderate unchanged f oraminal narrowing at L3-4. | | | | | | | |The other levels are unchanged from comparison. At T12-L1, a small left paracentral protrus ion of disk and bone creates mild spinal canal narrowing. I see no other distinct potential cause for right leg radiculopathy. | | | | | | | |IMPRESSION: | | | | | | | |1. Prior surgery at the L3-4 level. A small dorsal epidural fluid collection does not appea r to contribute to mass effect upon the sac. | | | | | | | |2. Persistent prominent disk bulge at L3-4 with severe spinal canal stenosis. The L4 and be low nerve roots may be impinged. | + + + + + + + | Performing | Address | City/State/Zipcode | Phone Number | | Organization | | | | + + + + + | [facility] | [address] | [place], [place] | [phone] | | | | [address] | | + + + + + documented in this encounter Visit Diagnoses Not on filedocumented in this encounter"
--- OUTSIDE RECORDS SUMMARY | ~2019-10-16 | XMS | Encounter Summary ---
Demographics + + + | Address | [address] | | | [place] [address] | + + + | Home Phone | | + + + | Preferred Language | Unknown | + + + | Marital Status | | + + + | Hoahaoism Affiliation | PRE | + + + | Race | White | + + + | Ethnic Group | Not or | + + + Author + + + | Author | [facility] | + + + | Organization | [facility] | + + + | Address | Unknown | + + + | Phone | Unavailable | + + + Support + + + + + | Name | Relationship | Address | Phone | + + + + + | Dustin Terrazas | ECON | [address] | Unavailable | | | | #[place] | | | | | [address] | | + + + + + | Bebe Terrazas | ECON | Unknown | Unavailable | + + + + + | Arden Terrazas | ECON | Unknown | | + + + + + Care Team Providers + +------+ + | Care Director Of Product Development Name | Role | Phone | + +------+ + | Yuriy Cardenas PA-C | PCP | | + +------+ + Encounter Details +--------+ + + + + | Date | Type | Department | Care Team | Description | +--------+ + + + + | 07/07/ | Procedure | Diagnostic Imaging | | | | 2019 | Pass | Services at [facility] | | | | | | [address] | | | | | | Sadie Granados [facility] | | | | | | [address] | | | | | | [place], [place] | | | | | | [address] | | | | | | [phone] | | | +--------+ + + + [...]
--- OUTSIDE RECORDS SUMMARY | ~2019-10-16 | XMS | Encounter Summary ---
Demographics + + + | Address | [address] | | | [place] [address] | + + + | Home Phone | | + + + | Preferred Language | Unknown | + + + | Marital Status | | + + + | Scientology Affiliation | PRE | + + + | Race | White | + + + | Ethnic Group | Not or | + + + Author + + + | Organization | Unknown | + + + | Address | Unknown | + + + | Phone | Unavailable | + + + Support + + + + + | Name | Relationship | Address | Phone | + + + + + | Dustin Terrazas | ECON | [address] | Unavailable | | | | #[place], [place] | | | | | [address] | | + + + + + | Bebe Terrazas | ECON | Unknown | Unavailable | + + + + + | Arden Hammondi | ECON | Unknown | | + + + + + Care Team Providers + +------+ + | Care Patient Insurance Clerk Name | Role | Phone | + +------+ + | Yuriy Cardenas PA-C | PCP | | + +------+ + Encounter Details +--------+--------+ + + + | Date | Type | Department | Care Team | Description | +--------+--------+ + + + | 03/30/ | Travel | | | | | 2020 | | | | | +--------+--------+ + [...]
--- OUTSIDE RECORDS SUMMARY | ~2019-10-16 | XMS | Encounter Summary ---
Demographics + + + | Address | [address] | | | [place] [address] | + + + | Home Phone | | + + + | Preferred Language | Unknown | + + + | Marital Status | | + + + | Catholic Affiliation | PRE | + + + | Race | White | + + + | Ethnic Group | Not or | + + + Author + + + | Author | [facility] | + + + | Organization | [facility] | + + + | [...] #[place] | | | | | [address] | | + + + + + | Bebe Terrazas | ECON | Unknown | Unavailable | + + + + + | Ardenjostin Hammondi | ECON | Unknown | | + + + + + Care Team Providers + +------+ + | Care Swimming Pool Cleaner Name | Role | Phone | + +------+ + | Zora Haddad DO | PCP | | + +------+ + Encounter Details +--------+ + + + + | Date | Type | Department | Care Team | Description | +--------+ + + + + | 10/02/ | Hospital | Diagnostic Imaging | | | | 2012 | Encounter | Services at [facility] | | | | | | [address] | | | | | | Sadie Darwin [facility] | | | | | | [address] | | | | | | [place], [place] | | | | | | [address] | | | | | | [phone] | | | +--------+ + + + [...]
--- OUTSIDE RECORDS SUMMARY | ~2019-10-16 | XMS | Encounter Summary ---
Demographics + + + | Address | [address] | | | [place] [address] | + + + | Home Phone | | + + + | Preferred Language | Unknown | + + + | Marital Status | | + + + | Evangelical Affiliation | PRE | + + + [...] #[place] | | | | | [address] | | + + + + + | Bebe Terrazas | ECON | Unknown | Unavailable | + + + + + | Arden Terrazas | ECON | Unknown | | + + + + + Care Team Providers + +------+ + | Care Look Out Tower Fire Watcher Name | Role | Phone | + +------+ + | Crissy Santoyo PA-C | PCP | | + +------+ + Encounter Details +--------+ + + + + | Date | Type | Department | Care Team | Description | +--------+ + + + + | 04/29/ | Document-Sc | Health Information | Unknown . | | | 2013 | anned | Services [phone] | | | | | | [address] | | | | | | Mailcode: [id number] | | | | | | [facility] | | | | | | [place], [place] | | | | | | [address] | | | | | | [phone] | | | +--------+ + + + [...]
--- OUTSIDE RECORDS SUMMARY | ~2019-10-16 | XMS | Encounter Summary ---
Demographics + + + | Address | [address] | | | [place] [address] | + + + | Home Phone | | + + + | Preferred Language | Unknown | + + + | Marital Status | | + + + | Advent Affiliation | PRE | + + + [...] [id number] [place] | | | | | [id number] | | + + + + + | Bebe Terrazas | ECON | Unknown | Unavailable | + + + + + | Arden Terrazas | ECON | Unknown | | + + + + + Care Team Providers + +------+ + | Care Nurse Liaison Name | Role | Phone | + +------+ + | Yuriy Cardenas PA-C | PCP | | + +------+ + Reason for Visit + + + | Reason | Comments | + + + | Refill Request | | + + + Encounter Details +--------+ + + + + | Date | Type | Department | Care Team | Description | +--------+ + + + + | 02/16/ | Telephone | [facility] | Yuriy Cardenas, | Refill Request | | 2017 | | at [place] [id number] | [facility] [id number] | | | | | [facility] | [facility] | | | | | [facility] [place], [place] | [place], [place] | | | | | [address] | [address] | | | | | [phone] | [phone] | | | | | | | [...] | Diagnosis | + + | Lumbar radiculopathy - Primary Thoracic or lumbosacral neuritis or radiculitis, | | unspecified | + + documented in this encounter"
--- OUTSIDE RECORDS SUMMARY | ~2019-10-16 | XMS | Encounter Summary ---
Demographics + + + | Address | [address] | | | [place] [address] | + + + | Home Phone | | + + + | Preferred Language | Unknown | + + + | Marital Status | | + + + | Yazidism Affiliation | PRE | + + + | Race | White | + + + | Ethnic Group | Not or | + + + Author + + + | Author | [facility] | + + + | Organization | [facility] | + + + | [...] #[place] | | | | | [address] | | + + + + + | Bebe Terrazas | ECON | Unknown | Unavailable | + + + + + | Arden Terrazas | ECON | Unknown | | + + + + + Care Team Providers + +------+ + | Care Combustion Analyst Name | Role | Phone | + +------+ + | Yuriy Cardenas PA-C | PCP | | + +------+ + Encounter Details +--------+ + + + + | Date | Type | Department | Care Team | Description | +--------+ + + + + | 09/29/ | Telephone | [facility] | Yuriy Cardenas, | | | 2018 | | at [place] [address] | PA-C [address] | | | | | [address] | [address] | | | | | [facility] [place], [place] | [place], [place] | | | | | [address] | [address] | | | | | [phone] | [phone] | | | | | | | [...]
--- OUTSIDE RECORDS SUMMARY | ~2019-10-16 | XMS | Encounter Summary ---
Demographics + + + | Address | [address] | | | [place] [address] | + + + | Home Phone | | + + + | Preferred Language | Unknown | + + + | Marital Status | | + + + | Oriental Orthodox Affiliation | PRE | + + + | Race | White | + + + | Ethnic Group | Not or | + + + Author + + + | Author | [facility] | + + + | Organization | [facility] | + + + | [...] #[place] | | | | | [address] | | + + + + + | Bebe Terrazas | ECON | Unknown | Unavailable | + + + + + | Arden Terrazas | ECON | Unknown | | + + + + + Care Team Providers + +------+ + | Care Weatherization Coordinator Name | Role | Phone | + +------+ + | Yuriy Cardenas PA-C | PCP | | + +------+ + Encounter Details +--------+ + + + + | Date | Type | Department | Care Team | Description | +--------+ + + + + | 07/08/ | Telephone | [facility] | Kirk Sawyer, | | | 2018 | | Clinics at S | MD [address] | | | | | [address] | [place], [place] | | | | | [facility] | [address] | | | | | [facility], | [phone] | | | | | [address] | | | | | | [place], [place] | | | | | | [address] | | | | | | [phone] | | | +--------+ + + + [...]
--- OUTSIDE RECORDS SUMMARY | ~2019-10-16 | XMS | Encounter Summary ---
Demographics + + + | Address | [address] | | | [place] [address] | + + + | Home Phone | | + + + | Preferred Language | Unknown | + + + | Marital Status | | + + + | Jewish Affiliation | PRE | + + + | Race | White | + + + | Ethnic Group | Not or | + + + Author + + + | Author | [facility] | + + + | Organization | [facility] | + + + | Address [...] #[place] | | | | | [address] | | + + + + + | Bebe Terrazas | ECON | Unknown | Unavailable | + + + + + | Arden Terrazas | ECON | Unknown | | + + + + + Care Team Providers + +------+ + | Care Supervisor Money Room Name | Role | Phone | + +------+ + | Zora Haddad MD | PCP | | + +------+ + Encounter Details +--------+ + + + + | Date | Type | Department | Care Team | Description | +--------+ + + + + | 09/01/ | Document-Sc | Neurosurgery [address] | Sivakumar Tanner, | | | 2012 | christine | [address] | MD [address] | | | | | Physician's | [place], [place] | | | | | Pavilion, 2nd floor | [address] | | | | | [place], [place] | [phone] | | | | | [address] | | | | | | [phone] | | | +--------+ + + + [...] | + +--------+ + + + | RADIOLOGY | | 09/01/2012 | | Results for this | | | | 12:00 AM | | procedure are in the | | | | PDT | | results section. | + +--------+ + + + documented in this encounter Results RADIOLOGY (09/01/2012 12:00 AM PDT) + + + | Narrative | Performed At | + + + | | | | | | + + + + + | Procedure Note | + + | Vanna Cardoso - 09/01/2012 11:27 AM PDT | + + documented in this encounter Visit Diagnoses Not on filedocumented in this encounter"
--- OUTSIDE RECORDS SUMMARY | ~2019-10-16 | XMS | Encounter Summary ---
Demographics + + + | Address | [address] | | | [place] [address] | + + + | Home Phone | | + + + | Preferred Language | Unknown | + + + | Marital Status | | + + + | Judaism Affiliation | PRE | + + + [...] #[place] | | | | | [address] | | + + + + + | Bebe Terrazas | ECON | Unknown | Unavailable | + + + + + | Arden Terrazas | ECON | Unknown | | + + + + + Care Team Providers + +------+ + | Care Programmer Engineering And Scientific Name | Role | Phone | + [...] | +--------+ + + + + | 03/17/ | Telephone | [facility] Primary Care | Yuriy Cardenas, | Refill Request | | 2020 | | at [place] [address] | PA-C [address] | | | | [address] | [facility] | | | | | [facility] [place], [place] | [place], [place] | | | | | [address] | [address] | | | | | [phone] | [phone] | | | | | | | [...]
--- OUTSIDE RECORDS SUMMARY | ~2019-10-16 | XMS | Encounter Summary ---
Demographics + + + | Address | [address] | | | [place] [address] | + + + | Home Phone | | + + + | Preferred Language | Unknown | + + + | Marital Status | | + + + | Mu-Ism Affiliation | PRE | + + + | Race | White | + + + | Ethnic Group | Not or | + + + Author + + + | Author | [facility] | + + + | Organization | [facility] | + + + | [...] #[place] | | | | | [address] | | + + + + + | Bebe Terrazas | ECON | Unknown | Unavailable | + + + + + | Arden Nini | ECON | Unknown | | + + + + + Care Team Providers + +------+ + | Care Hydrogen Treater Name | Role | Phone | + +------+ + | Zora Haddad DO | PCP | | + +------+ + Encounter Details +--------+ + + + + | Date | Type | Department | Care Team | Description | +--------+ + + + + | 09/24/ | Telephone | Neurosurgery at | Sivakumar Tanner, | | | 2012 | | [facility] [address] | MD [address] | | | | | Ave [facility] | [place], [place] | | | | | Health and Healing, | [address] | | | | | [facility] | [phone] | | | | | floor [place], [place] | | | | | | [address] | | | | | | [phone] | | | +--------+ + + + [...]
--- OUTSIDE RECORDS SUMMARY | ~2019-10-16 | XMS | Encounter Summary ---
Demographics + + + | Address | [address] | | | [place] [address] | + + + | Home Phone | | + + + | Preferred Language | Unknown | + + + | Marital Status | | + + + | Lutheran Affiliation | PRE | + + + | Race | White | + + + | Ethnic Group | Not or | + + + Author + + + | Author | [facility] | + + + | Organization | [facility] | + + + | Address [...] #[place] | | | | | [address] | | + + + + + | Bebe Terrazsa | ECON | Unknown | Unavailable | + + + + + | Arden Terrazas | ECON | Unknown | | + + + + + Care Team Providers + +------+ + | Care Processes Chemical Design Engineer Name | Role | Phone | + +------+ + | Zora Haddad DO | PCP | | + +------+ + Reason for Visit + + + | Reason | Comments | + + + | Refill Request | | + + + Encounter Details +--------+--------+ + + + | Date | Type | Department | Care Team | Description | +--------+--------+ + + + | 02/04/ | Refill | Neurosurgery at | Sivakumar Tanner, | Refill Request | | 2012 | | [facility] [address] | MD [address] | | | | | [facility] for | [place], [place] | | | | | Health and Healing, | [address] | | | | | [facility] | [phone] | | | | | [place], [place] | | | | | | [address] | | | | | | [phone] | | | +--------+--------+ + + + [...]
--- OUTSIDE RECORDS SUMMARY | ~2019-10-16 | XMS | Encounter Summary ---
Demographics + + + | Address | [address] | | | [place] [address] | + + + | Home Phone | | + + + | Preferred Language | Unknown | + + + | Marital Status | | + + + | Nondenominational Affiliation | PRE | + + + | Race | White | + + + | Ethnic Group | Not or | + + + Author + + + | Author | [facility] | + + + | Organization | [facility] | + + + | Address [...] #[place] | | | | | [address] | | + + + + + | Bebe Terrazas | ECON | Unknown | Unavailable | + + + + + | Arden Terrazas | ECON | Unknown | | + + + + + Care Team Providers + +------+ + | Care Comic Book Artist Name | Role | Phone | + +------+ + | Yuriy Cardenas PA-C | PCP | | + +------+ + Encounter Details +--------+ + + + + | Date | Type | Department | Care Team | Description | +--------+ + + + + | 12/24/ | MyChart | [facility] Primary Care | Yuriy Cardenas, | Medication | | 2019 | Encounter | at [place] [address] | PA-C [address] | | | | [address] | [address] | | | | | [place], [place] | [place], [place] | | | | | [address] | [address] | | | | | [phone] | [phone] | | | | | | | [...]
--- OUTSIDE RECORDS SUMMARY | ~2019-10-16 | XMS | Encounter Summary ---
Demographics + + + | Address | [address] | | | [place] [address] | + + + | Home Phone | | + + + | Preferred Language | Unknown | + + + | Marital Status | | + + + | Tenriism Affiliation | PRE | + + + | Race | White | + + + | Ethnic Group | Not or | + + + Author + + + | Author | [facility] | + + + | Organization | [facility] | + + + | Address | Unknown | + + + | Phone | Unavailable | + + + Support + + + + + | Name | Relationship | Address | Phone | + + + + + | Dustin Terrazas | ECON | [address] | Unavailable | | | | #[place] | | | | | [address] | | + + + + + | Bebe Terrazas | ECON | Unknown | Unavailable | + + + + + | Arden Terrazas | ECON | Unknown | | + + + + + Care Team Providers + +------+ + | Care Livestock Breeder Name | Role | Phone | + +------+ + | Yuriy Cardenas PA-C | PCP | | + +------+ + Encounter Details +--------+ + + + + | Date | Type | Department | Care Team | Description | +--------+ + + + + | 06/24/ | MyChart | [facility] Primary Care | Yuriy Cardenas, | Medication refill | | 2020 | Encounter | at [place] [address] | PA-C [address] | | | | [address] | [address] | | | | | [place], [place] | [place], [place] | | | | | [address] | [address] | | | | | [phone] | [phone] | | | | | | | [...]
--- OUTSIDE RECORDS SUMMARY | ~2019-10-16 | XMS | Encounter Summary ---
Demographics + + + | Address | [address] | | | [place] [address] | + + + | Home Phone | | + + + | Preferred Language | Unknown | + + + | Marital Status | | + + + | Zoroastrianism Affiliation | PRE | + + + [...] #[place] | | | | | [address] | | + + + + + | Bebe Terrazas | ECON | Unknown | Unavailable | + + + + + | Arden Terrazas | ECON | Unknown | | + + + + + Care Team Providers + +------+ + | Care Plant Operations Vice President Name | Role | Phone | + [...] Closed | | Radiology | Diagnoses | Kobe, | | | | | | Midline | Annita oRjo, | | | | | | thoracic | PA [address] | | | | | | back pain | [address] | | | | | | Neck pain | [place], [place] | | | | | | Thoracic | [address] | | | | | | radiculopath | Phone: | | | | | | y | [phone] | | | | | | Paresthesias | Fax: | | | | | | Procedures | [phone] | | | | | | MRI SPINE | | | | | | | CERVICAL/THO | | | | | | | RACIC WO | | | | | | | CONTRAST | | | +--------+--------+ + + + + Encounter Details +--------+---------+ + + + | Date | Type | Department | Care Team | Description | +--------+---------+ + + + | 04/07/ | Office | Neurosurgery at | [place], | Midline thoracic | | 2016 | Visit | [facility] [address] | RAMOS [place] | back pain (Primary | | | | [facility] for | [address] | Dx); Neck pain; | | | | Health and Healing, | [place], [place] | Thoracic | | | | [facility] | [address] | radiculopathy; | | | | floor [facility] [place] | [phone] | Paresthesias; S/P | | | | [address] | | lumbar fusion | | | | [phone] | | | +--------+---------+ + + + [...] + + + | Blood Pressure | 125/76 | 04/07/2015 3:43 PM | | | | | PST | | + + + + + | Pulse | 96 | 04/07/2015 3:43 PM | | | | | PST | | + + + + + | Temperature | 36.5 C (97.7 F) | 04/07/2015 3:43 PM | | | | | PST [...] + + + + | Weight | 89.1 kg (196 lb 8 | 04/07/2015 3:43 PM | | | | oz) | PST | | + + + + + | Height | - | - | | + + + + + | Body Mass Index | 31.72 | 04/30/2013 2:25 PM | | | | | PST | | + + + + + documented in this encounter Progress Notes Annita Bullock PA - 04/07/2015 4:28 PM PSTFormatting of this note might be differe nt from the original. S: Ms. Terrazas is here for a follow up visit. The patient was last seen in the [facility] Neuro[facility]urg masood clinic on 05/20/13. The patient is s/p L3-4 LEFT extreme lateral interbody fusion Bilater al L3-4 foraminotomies, L3-S1 revision posterior instrumented fusion 12/23/2012. She states her back and leg pain has greatly improved post-operatively. She has returned to clinic for evaluation of her Neck pain and Upper/Mid Back pain. The patient notes radiation of pain and numbness in her Right upper extremity. She also reports pain radiation from her mid thoraci c spine, mid-scapula to her Left ribcage. These symptoms have been going on for several jay hs. She has had x-rays but no further imaging. The patient denies weakness and gait problems . She is currently smoking about 1/2 ppd cigarettes BP 125/76 | Pulse 96 | Temp (Src) 36.5 C (97.7 F) (Oral) | Wt 89.132 kg (196 lb 8 oz) | BMI 31.73 kg/(m^2) O: Gen: 44 y/o Female NAD Neuro: A +O x 3, Motor 5/5 throughout with exception of RLE DF 4/5. DTR's 2+ throughout except Right Knee 1+ SILT Gait normal Value SPINE ENTR SRVY STDY AP & LAT EXAM: SPINE ENTR SRVY STDY AP & LAT 04/07/15 16:33:00 HISTORY: Status post fusion COMPARISON: Lumbosacral spine radiograph 05/20/13, spine survey 10/02/12 FINDINGS: L3-S1 posterior fusion hardware with associated intervertebral grafts are in unchanged alignment without hardware failure or loosening evident. There is no fracture or destructive osseous lesion. The vertebral body heights are maintained. There is trace negative coronal balance and 6 cm positive sagittal balance. There is minimal levocurvature of the lumbar spine. Alignment is otherwise normal. Multilevel cervical degenerative disc disease is partially outlined. No soft tissue abnormality is evident. IMPRESSION: L3-S1 posterior and anterior fusion in normal alignment without hardware complication. Partially outlined multilevel cervical degenerative disc disease. Attending Radiologists: KYLE KYLE MD Author: PHYLLIS JUAREZ MD A: 44 y/o Female with complaints of Cervical and Thoracic back pain with radicular type sym ptoms. P: Will have patient undergo MRI C and T spine. RTC to review findings and discuss treatmen t recommendations. RAMOS [facility] NEUROSURGERY AT [facility] [address] Mailcode: [address] [place] [address] documented in t his encounter Plan of Treatment + +---------+--------+ + + | Name | Type | Priori | Associated Diagnoses | Order Schedule | | | | ty | | | + +---------+--------+ + + | MRI SPINE | Imaging | Routin | Midline thoracic | Expected: | | CERVICAL/THORACIC WO | | e | back pain Neck pain | 04/07/2015, Expires: | | CONTRAST | | | Thoracic | 05/05/2016 | | | | | radiculopathy | | | | | | Paresthesias | | + +---------+--------+ + + documented as of this encounter Results X-RAY SCOLI SPINE ENTR RADHA AP &LAT (04/07/2015 4:33 PM PST) + + + + + + | Component | Value | Ref Range | Performed | Pathologist | | | | | At | Signature | + + + + + + | SPINE ENTR | EXAM: SPINE ENTR SRVY | | | | | SRVY STDY | STDY AP & LAT 04/07/15 | | | | | AP & LAT | 16:33:00 HISTORY: Status | | | | | | post fusion COMPARISON: | | | | | | Lumbosacral spine | | | | | | radiograph 05/20/13, | | | | | | spine survey 10/02/12 | | | | | | FINDINGS: L3-S1 | | | | | | posterior fusion | | | | | | hardware with associated | | | | | | intervertebral grafts | | | | | | are inunchanged | | | | | | alignment without | | | | | | hardware failure or | | | | | | loosening evident. There | | | | | | is nofracture or | | | | | | destructive osseous | | | | | | lesion. The vertebral | | | | | | body heights | | | | | | aremaintained. There is | | | | | | trace negative coronal | | | | | | balance and 6 cm | | | | | | positive | | | | | | sagittalbalance. There | | | | | | is minimal levocurvature | | | | | | of the lumbar spine. | | | | | | Alignment isotherwise | | | | | | normal. Multilevel | | | | | | cervical degenerative | | | | | | disc disease is | | | | | | partiallyoutlined. No | | | | | | soft tissue abnormality | | | | | | is evident. IMPRESSION: | | | | | | L3-S1 posterior and | | | | | | anterior fusion in | | | | | | normal alignment without | | | | | | hardwarecomplication. | | | | | | Partially outlined | | | | | | multilevel cervical | | | | | | degenerative disc | | | | | | disease. Attending | | | | | | Radiologists: KYLE | | | | | | REENA KYLEuthor: | | | | | | PHYLLIS JUAREZ MD I | | | | | | personally reviewed the | | | | | | images and, if | | | | | | necessary, edited the | | | | | | report. I agreewith the | | | | | | report as now presented. | | | | | | | | | | | | Final/Electronically | | | | | | roxanne / KYLE | | | | | | SAROJ 04/08/2015 9:34 | | | | | | AM | | | | + + + + + + + + | Specimen | + + | | + + + +---------+ + + | Performing | Address | City/State/Zipcode | Phone Number | | Organization | | | | + +---------+ + + | [facility] DEPARTMENT OF | | | | | RADIOLOGY | | | | + +---------+ + + documented in this encounter Visit Diagnoses + + | Diagnosis | + + | Midline thoracic back pain - Primary | + + | Neck pain Cervicalgia | + + | Thoracic radiculopathy Thoracic or lumbosacral neuritis or radiculitis, unspecified | + + | Paresthesias Disturbance of skin sensation | + + | S/P lumbar fusion Arthrodesis status | + + documented in this encounter"
--- OUTSIDE RECORDS SUMMARY | ~2019-10-16 | XMS | Encounter Summary ---
Demographics + + + | Address | [address] | | | [place] [address] | + + + | Home Phone | | + + + | Preferred Language | Unknown | + + + | Marital Status | | + + + | Jainism Affiliation | PRE | + + + [...] #[place] | | | | | [address] | | + + + + + | Bebe Terrazas | ECON | Unknown | Unavailable | + + + + + | Arden Terrazas | ECON | Unknown | | + + + + + Care Team Providers + +------+ + | Care Case Management Director Name | Role | Phone | + [...] | | | [facility] [address] | [place], [place] | | | | | [facility] | [address] | | | | | Health and Healing, | [phone] | | | | | [address] | | | | | | [place], [place] | | | | | | [address] | | | | | | [phone] | | | +--------+ + + + [...]
--- OUTSIDE RECORDS SUMMARY | ~2019-10-16 | XMS | Encounter Summary ---
Demographics + + + | Address | [address] | | | [place] [address] | + + + | Home Phone | | + + + | Preferred Language | Unknown | + + + | Marital Status | | + + + | Congregational Affiliation | PRE | + + + | Race | White | + + + | Ethnic Group | Not or | + + + Author + + + | Author | [facility] | + + + | Organization | [facility] | + + + | Address | Unknown | + + + | Phone | Unavailable | + + + Support + + + + + | Name | Relationship | Address | Phone | + + + + + | Dustin Terrazas | ECON | [address] | Unavailable | | | | #[place] | | | | | [address] | | + + + + + | Bebe Terrazas | ECON | Unknown | Unavailable | + + + + + | Arden Terrazas | ECON | Unknown | | + + + + + Care Team Providers + +------+ + | Care Highway Painter Name | Role | Phone | + +------+ + | Yuriy Cardenas PA-C | PCP | | + +------+ + Encounter Details +--------+ + + + + | Date | Type | Department | Care Team | Description | +--------+ + + + + | 09/06/ | MyChart | Cardiology General | | Referral to | | 2018 | Encounter | at [facility] [address] | | Cardiology: Please | | | | [facility] for | | call to schedule. | | | | Health and Healing, | | | | | | Building | | | | | | Floor [place], [place] | | | | | | [address] | | | | | | [phone] | | | +--------+ + + + [...]
--- OUTSIDE RECORDS SUMMARY | ~2019-10-16 | XMS | Encounter Summary ---
Demographics + + + | Address | [address] | | | [place] [address] | + + + | Home Phone | | + + + | Preferred Language | Unknown | + + + | Marital Status | | + + + | Latter-Day Affiliation | PRE | + + + | Race | White | + + + | Ethnic Group | Not or | + + + Author + + + | Author | [facility] | + + + | Organization | [facility] | + + + | Address [...] [address] [place] | | | | | [address] | | + + + + + | Bebe Terrazas | ECON | Unknown | Unavailable | + + + + + | Arden Terrazas | ECON | Unknown | | + + + + + Care Team Providers + +------+ + | Care It Corporate Recruiter Name | Role | Phone | + [...] Closed | | Radiology | Diagnoses | Bull[place], | Rad Ct Scan | | | | | Lumbar | Annita Rojo, | [facility] [address] | | | | | radiculopath | [place] [address] | [address] | | | | | y | [address] | [address] [facility] | | | | | Procedures | [place], [place] | [facility], | | | | | CT SPINE | [address] | 10th Floor | | | | | LUMBAR WO | Phone: | [place], [place] | | | | | CONTRAST | [phone] | [address] | | | | | | Fax: | Phone: | | | | | | [phone] | [phone] | | | | | | | Fax: | | | | | | | [phone] | +--------+--------+ + + + + Consultation (Routine) +--------+--------+ + [...] | | | | | y | [address] | [address] | | | | | Procedures | [place] | | | | | CONSULT TO | [address] | [address] | | | | | PAIN CENTER | Phone: | | | | | | | [phone] | | | | | | | Fax: | | | | | | | [phone] | | +--------+--------+ + + + + Reason for Visit + + + | Reason | Comments | + + + | Postoperative visit | | + + + Encounter Details +--------+---------+ + + + | Date | Type | Department | Care Team | Description | +--------+---------+ + + + | 02/11/ | Office | Neurosurgery [address] | [place], | Lumbar radiculopathy | | 2012 | Visit | [address] | [facility]OS Schwartz | (Primary Dx) | | | | Physician's | [address] | | | | | Pavilion, 2nd floor | [place], [place] | | | | | [place], [place] | [address] | | | | | [address] | [phone] | | | | | [phone] | | | +--------+---------+ + + + [...] + + + | Blood Pressure | 143/84 | 02/11/2013 12:22 PM | | | | | PST | | + + + + + | Pulse | 98 | 02/11/2013 12:22 PM | | | | | PST | | + + + + + | Temperature | 36.7 C (98 F) | 02/11/2013 12:22 PM | | | | | PST [...] + + + + | Weight | 99.8 kg (220 lb) | 02/11/2013 12:22 PM | | | | | PST | | + + + + + | Height | - | - | | + + + + + | Body Mass Index | 35.51 | 12/23/2012 8:35 AM | | | | | PDT | | + + + + + documented in this encounter Progress Notes Annita Bullock PA - 02/11/2013 12:49 PM PSTS: Ms. Terrazas has returned s/p L3-4 LEFT extreme lateral interbody fusion Bilateral L3-4 foraminotomies, L3-S1 revision posterior ins trumented fusion 12/23/2012. She has noted improvement in her Left leg pain but still is req uiring to take pain medications to adequately manage her symptoms. Her BLE swelling has reso lved. BP 143/84 | Pulse 98 | Temp 36.7 C (98 F) | Wt 99.791 kg (220 lb) | BMI 35.53 kg/(m^2) O: Gen: 42 y/o Female NAD Incisions: Flank, Lumbar- well healed, no erythema, edema, discharge Neuro: A + O x 3, Motor 5/5 throughout Gait normal A: 42 y/o Female s/p L3-4 LEFT extreme lateral interbody fusion Bilateral L3-4 foraminotomi es, L3-S1 revision posterior instrumented fusion 12/23/2012. P: Refilled Oxycodone Rx. Changed dosage sig Oxycodone 20 mg one tab q 4 hrs prn pain # 180 . Discussed clinic pain policy. Will manage post op pain until 12 weeks time then will ask p atient to discuss with PCP. Pt. With h/o chronic opioid use prior to surgery. Will refer to Pain Clinic to make recommendations to PCP. FU at [address] Lumbar Spine lisa ortiz Patient has a Bone Stimulator unit from prior back surgery. Told her she could use. Will refer to Physical Therapy. [facility] [address] [place] [address] Mailcode: [address] [place] [address] documented in t his encounter Plan of Treatment Not on filedocumented as of this encounter Results CT SPINE LUMBAR WO CONTRAST (04/15/2013 11:15 AM PST) + + + + + + | Component | Value | Ref Range | Performed | Pathologist | | | | | At | Signature | + + + + + + | CT LUMBAR | LUMBAR SPINE CT - | | | | | SPINE WO | WITHOUT IV CONTRAST | | | | | CONTRAST | INDICATION:Neuritis and | | | | | | radiculitis. Status post | | | | | | posterior fusion from | | | | | | L3-S1 with removalof old | | | | | | hardware at | | | | | | L4-S1.COMPARISON: | | | | | | 013TECHNIQUE:LUMBAR | | | | | | SPINE CT - WITHOUT IV | | | | | | CONTRAST LEVELS | | | | | | IMAGED:T12 through S1 | | | | | | are visualized. | | | | | | FINDINGSALIGNMENT:Lumbar | | | | | | lordosis is maintained. | | | | | | A mild levocurvature | | | | | | may be | | | | | | positional.VERTEBRAE:The | | | | | | vertebral body heights | | | | | | are normally maintained. | | | | | | No fracture.Pedicle | | | | | | screws are at L3-S1. A | | | | | | ghost track is seen | | | | | | medial to the left | | | | | | pediclescrew at the S1 | | | | | | level. Interbody fusion | | | | | | grafts are at | | | | | | L3-L4-L5-S1. | | | | | | Laminectomydefects are | | | | | | at L3-L5. SPINAL | | | | | | CANAL:Streak artifact | | | | | | obscures detail within | | | | | | the inferior aspect of | | | | | | the spinal canal.No | | | | | | stenosis suspected.SOFT | | | | | | TISSUES:No abnormal | | | | | | fluid collection is | | | | | | seen.SACROILIAC | | | | | | JOINTS:There are vacuum | | | | | | phenomena is noted along | | | | | | with left greater than | | | | | | right, milddegenerative | | | | | | change. | | | | | | IMPRESSION:Expected | | | | | | postoperative changes. | | | | | | Attending Radiologists: | | | | | | SALLY MEJIA MDAuthor: | | | | | | SALLY MEJIA MD I have | | | | | | personally viewed this | | | | | | procedure/exam, reviewed | | | | | | this report, and | | | | | | madechanges to it where | | | | | | appropriate. | | | | | | Final/Electronically | | | | | | signed / SALLY MEJIA | | | | | | 04/15/2013 13:31 PM | | | | + + + + + + + + | Specimen | + + | | + + + +---------+ + + | Performing | Address | City/State/Zipcode | Phone Number | | Organization | | | | + +---------+ + + | [facility] | | | | | RADIOLOGY | | | | + +---------+ + + documented in this encounter Visit Diagnoses + + | Diagnosis | + + | Lumbar radiculopathy - Primary Thoracic or lumbosacral neuritis or radiculitis, | | unspecified | + + documented in this encounter"
--- OUTSIDE RECORDS SUMMARY | ~2019-10-16 | XMS | Encounter Summary ---
Demographics + + + | Address | [address] | | | [place] [address] | + + + | Home Phone | | + + + | Preferred Language | Unknown | + + + | Marital Status | | + + + | Christian Affiliation | PRE | + + + [...] ST | Unavailable | | | | #[address], [place] | | | | | [address] | | + + + + + | Bebe Terrazas | ECON | Unknown | Unavailable | + + + + + | Arden Hammondi | ECON | Unknown | | + + + + + Care Team Providers + +------+ + | Care Instrument Sterilizer Name | Role | Phone | + +------+ + | Yuriy Cardenas PA-C | PCP | | + +------+ + Encounter Details +--------+--------+ + + + | Date | Type | Department | Care Team | Description | +--------+--------+ + + + | 08/05/ | Travel | | | | | 2019 | | | | | +--------+--------+ + [...]
--- OUTSIDE RECORDS SUMMARY | ~2019-10-16 | XMS | Encounter Summary ---
Demographics + + + | Address | [address] | | | [place] [address] | + + + | Home Phone | | + + + | Preferred Language | Unknown | + + + | Marital Status | | + + + | Holiness Affiliation | PRE | + + + [...] [address] [place] | | | | | [address] | | + + + + + | Bebe Terrazas | ECON | Unknown | Unavailable | + + + + + | Arden Terrazas | ECON | Unknown | | + + + + + Care Team Providers + +------+ + | Care Roller Billet Mill Name | Role | Phone | + +------+ + | Yuriy Cardenas PA-C | PCP | | + +------+ + Encounter Details +--------+ + + + + | Date | Type | Department | Care Team | Description | +--------+ + + + + | 03/20/ | Pharmacy | [facility] | | | | 2013 | Visit | [facility] | | | | | | [address] | | | | | | Mailcode: [place] | | | | | | [facility] and | | | | | | [facility] | | | | | | [place], [place] | | | | | | [address] | | | | | | [phone] | | | +--------+ + + + [...]
--- OUTSIDE RECORDS SUMMARY | ~2019-10-16 | XMS | Encounter Summary ---
Demographics + + + | Address | [address] | | | [place] [address] | + + + | Home Phone | | + + + | Preferred Language | Unknown | + + + | Marital Status | | + + + | Latter Day Affiliation | PRE | + + + [...] [address] [place] | | | | | [address] | | + + + + + | Bebe Terrazas | ECON | Unknown | Unavailable | + + + + + | Arden Terrazas | ECON | Unknown | | + + + + + Care Team Providers + +------+ + | Care Psychic Reader Name | Role | Phone | + +------+ + | Crissy Santoyo PA-C | PCP | | + +------+ + Encounter Details +--------+ + + + + | Date | Type | Department | Care Team | Description | +--------+ + + + + | 04/17/ | Telephone | [facility] | Saurabh Rosales I, | | | 2013 | | Pain Center at | MD [address] | | | | | [facility] | [facility] | | | | | [address] | [place], [place] | | | | | [facility] | [address] | | | | | and Vi, | [phone] | | | | | [facility] | | | | | | Floor [place], [place] | | | | | | [address] | | | | | | [phone] | | | +--------+ + + + [...]
--- OUTSIDE RECORDS SUMMARY | ~2019-10-16 | XMS | Encounter Summary ---
Demographics + + + | Address | [address] | | | [place] [address] | + + + | Home Phone | | + + + | Preferred Language | Unknown | + + + | Marital Status | | + + + | Rastafarian Affiliation | PRE | + + + [...] [address] [place] | | | | | [address] | | + + + + + | Bebe Terrazas | ECON | Unknown | Unavailable | + + + + + | Arden Terrazas | ECON | Unknown | | + + + + + Care Team Providers + +------+ + | Care Residential Sales Associate Name | Role | Phone | + +------+ + | Yuriy Cardenas PA-C | PCP | | + +------+ + Encounter Details +--------+ + + + + | Date | Type | Department | Care Team | Description | +--------+ + + + + | 05/25/ | Abstract | [facility] | Yuriy Cardenas, | | | 2019 | | at [place] [address] | PA-C [address] | | | | [address] | [address] | | | | | [facility] [place], [place] | [place], [place] | | | | | [address] | [address] | | | | | [phone] | [phone] | | | | | | | [...] + + documented as of this encounter Progress Notes Jorden Hameed MA - 05/26/2019 12:34 PM PDTHM Updated. JP documented in this encounter Plan of Treatment Not on filedocumented as of this encounter Procedures + +--------+ + + + | Procedure Name | Priori | Date/Time | Associated Diagnosis | Comments | | | ty | | | | + +--------+ + + + | MAMMOGRAM (ABSTRACT) | Routin | 12/04/2012 | | Results for this | | | e | | | procedure are in the | | | | | | results section. | + +--------+ + + + documented in this encounter Results MAMMOGRAM (ABSTRACT) (12/04/2012) + + | Specimen | + + | | + + + + + | Impressions | Performed At | + + + | Mammo Digital Screening Bilateral w R2 12/04/2012 [facility] | NON [facility] | | Result Narrative MAMMO DIGITAL SCREENING BILATERAL W R2 | | | dated 12/04/2012 1:33 PM. CLINICAL DATA: Screening. | | | TECHNIQUE: Routine screening projections. Mammograms were | | | performed using a full-field digital mammography system and the | | | images were processed by the R2 Computer Assisted Diagnosis (CAD) | | | system which highlights areas of possible abnormality. These | | | highlighted digital images were reviewed by the interpreting | | | physician as an integral part of mammogram interpretation. | | | COMPARISON STUDIES: None available. MAMMOGRAM FINDINGS: | | | There is scattered fibroglandular tissue. RIGHT BREAST: There is | | | an asymmetric density in the subareolar breast which warrants further | | | evaluation. Scattered benign-appearing calcifications, including | | | skin calcifications and calcified oil cysts are noted. LEFT | | | BREAST: No suspicious calcifications, masses or architectural | | | distortion are present. Scattered benign-appearing calcifications are | | | present. IMPRESSION: Recommend further evaluation of the | | | asymmetric density in the right subareolar breast. ACR BI-RADS | | | Category AEN: Incomplete - additional imaging evaluation needed. | | | KT:awl e. 12/04/12 Verified by [place] Leonard MD on 12/04/2012 4:20 PM | | | Other Result Information Meir, Rad Results In - 12/04/2012 4:21 PM | | | PDT MAMMO DIGITAL SCREENING BILATERAL W R2 dated 12/04/2012 1:33 | | | PM. CLINICAL DATA: Screening. TECHNIQUE: Routine screening | | | projections. Mammograms were performed using a full-field digital | | | mammography system and the images were processed by the R2 Computer | | | Assisted Diagnosis (CAD) system which highlights areas of possible | | | abnormality. These highlighted digital images were reviewed by the | | | interpreting physician as an integral part of mammogram | | | interpretation. COMPARISON STUDIES: None available. | | | MAMMOGRAM FINDINGS: There is scattered fibroglandular tissue. | | | RIGHT BREAST: There is an asymmetric density in the subareolar breast | | | which warrants further evaluation. Scattered benign-appearing | | | calcifications, including skin calcifications and calcified oil cysts | | | are noted. LEFT BREAST: No suspicious calcifications, masses or | | | architectural distortion are present. Scattered benign-appearing | | | calcifications are present. IMPRESSION: Recommend further | | | evaluation of the asymmetric density in the right subareolar breast. | | | ACR BI-RADS Category AEN: Incomplete - additional imaging | | | evaluation needed. CORY:cassi duggan 12/04/12 Verified by [place] Leonard | | | on 12/04/2012 4:20 PM | | + + + + +---------+ + + | Performing | Address | City/State/Zipcode | Phone Number | | Organization | | | | + +---------+ + + | NON [facility] | | | | + +---------+ + + documented in this encounter Visit Diagnoses Not on filedocumented in this encounter"
--- OUTSIDE RECORDS SUMMARY | ~2019-10-16 | XMS | Encounter Summary ---
Demographics + + + | Address | [address] | | | [place] [address] | + + + | Home Phone | | + + + | Preferred Language | Unknown | + + + | Marital Status | | + + + | Advent Affiliation | PRE | + + + | Race | White | + + + | Ethnic Group | Not or | + + + Author + + + | Author | [facility] | + + + | Organization | [facility] | + + + | Address | Unknown | + + + | Phone | Unavailable | + + + Support + + + + + | Name | Relationship | Address | Phone | + + + + + | Dustin Terrazas | ECON | [address] | Unavailable | | | | #[address] | | | | | [address] | | + + + + + | Bebe Terrazas | ECON | Unknown | Unavailable | + + + + + | Arden Terrazas | ECON | Unknown | | + + + + + Care Team Providers + +------+ + | Care Email Campaign Manager Name | Role | Phone | + +------+ + | Crissy Santoyo PA-C | PCP | | + +------+ + Encounter Details +--------+ + + + + | Date | Type | Department | Care Team | Description | +--------+ + + + + | 06/03/ | Polystyrene Bead Molder | [facility] | Kirk Sawyer, | Malignant neoplasm | | 2018 | | Clinics at S | MD [address] | of lung, unspecified | | | | [facility] [address] | [place], [place] | laterality, | | | | [facility] | [address] | unspecified part of | | | | [facility], | [phone] | lung (HCC) (Primary | | | | [address] | | Dx) | | | | [place], [place] | | | | | | [address] | | | | | | [phone] | | | +--------+ + + + [...] | + +--------+ + + + | PATHOLOGY CONSULT - | Routin | 06/06/2017 | Malignant neoplasm | Results for this | | REVIEW OUTSIDE | e | 8:46 AM | of lung, | procedure are in the | | SLIDES | | PDT | unspecified | results section. | | | | | laterality, | | | | | | unspecified part of | | | | | | lung (HCC) | | + +--------+ + + + documented in this encounter Results PATHOLOGY CONSULT - REVIEW OUTSIDE SLIDES (06/06/2017 8:46 AM PDT) + + + + + + | Component | Value | Ref Range | Performed | Pathologist | | | | | At | Signature | + + + + + + | Clinical | A 46 year old female | | [facility] | | | History | with a left upper lobe | | DEPARTMENT | | | | pleural based mass. | | OF | | | | | | PATHOLOGY | | + + + + + + | Final | A. Left lower lobe lung | | [facility] | Electronically | | Pathologic | mass, CT-guided needle | | DEPARTMENT | signed by Eliazar | | Diagnosis | core biopsies | | OF | R Deric, | | | ([id number], | | PATHOLOGY | ,PhD on | | | 04/25/2017): - Atypical | | | 06/10/2017 at | | | epithelium mucinous | | | 10:31 AM | | | features suspicious for | | | | | | adenocarcinomaComment: | | | | | | Sections demonstrate | | | | | | atypical mucinous | | | | | | epithelium with focal | | | | | | lepidic architecture | | | | | | suspicious for | | | | | | adenocarcinoma. The | | | | | | differential diagnosis | | | | | | includes mucinous | | | | | | adenocarcinoma in situ, | | | | | | invasive pulmonary | | | | | | adenocarcinoma or | | | | | | metastatic | | | | | | adenocarcinoma with | | | | | | mucinous features | | | | | | originating from a | | | | | | primary tumor outside of | | | | | | the lung. Provided PDL1 | | | | | | immunohistochemistry is | | | | | | interpreted as negative | | | | | | (0%). Per the outside | | | | | | report molecular testing | | | | | | performed at | | | | | | [facility] | | | | | | diagnostics demonstrated | | | | | | the following:EGFR | | | | | | mutation analysis: Not | | | | | | detectedBRAF mutation: | | | | | | Not detectedALK FISH | | | | | | analysis: NegativeROS1 | | | | | | FISH analysis: | | | | | | NegativeCase seen | | | | | | by:Damien Stone MD | | | | | | | | | | | | Surgical Pathology | | | | | | Katy Leos MD | | | | | | PhD / Pathologist My | | | | | | electronic signature | | | | | | indicates that I have | | | | | | personally reviewed all | | | | | | diagnostic slides, the | | | | | | gross and/or microscopic | | | | | | portion of this report | | | | | | and formulated the final | | | | | | diagnosis. | | | | + + + + + + | Materials | Specimen AReferring | | [facility] | | | Received | Institution: [facility] | | DEPARTMENT | | | | [facility], | | OF | | | | [place], [place] | | PATHOLOGY | | | | [id number] Accession | | | | | | Number: [id number] | | | | | | Collection Date: | | | | | | 04/25/2017Sublabeled H&E | | | | | | IHC's A 6 2 | | | | + + + + + + + + | Specimen | + + | Slide-Block | + + + + + + + | Performing | Address | City/State/Zipcode | Phone Number | | Organization | | | | + + + + + | [facility] | [address] | [place] [address] | | | PATHOLOGY | [address] | | | + + + + + documented in this encounter Visit Diagnoses + + | Diagnosis | + + | Malignant neoplasm of lung, unspecified laterality, unspecified part of lung (HCC) - | | Primary | + + documented in this encounter"
--- OUTSIDE RECORDS SUMMARY | ~2019-10-16 | XMS | Clinical Summary ---
Demographics + + + | Address | [address] | | | [place] [address] | + + + | Home Phone [...] [address], [place] | | | | | [address] | | + + + + + | Bebe Terrazas | ECON | Unknown | Unavailable | + + + + + | Arden Hammondi | ECON | Unknown | | + + + + + Care Team Providers + +------+ + | Care Petroleum Engineering Professor Name | Role | Phone | + +------+ + | Yuriy Cardenas PA-C | PCP | | + +------+ + Source Comments [facility] is fully live on both [facility] and [facility] Allergies + + + + + + | Active Allergy | Reactions | Severity | Noted | Comments | | | | | Date | | + + + + + + | Codeine | Nausea and Vomiting | High | 02/24/20 | | | | | | 10 | | + + + + + + | Latex | Rash, Hives, Dyspnea | High | 04/25/19 | Blisters | | | | | 15 | | + + + + + + | Lisinopril | Cough | Low | 03/13/19 | Hair loss | | | | | 18 | | + + + + + + | Sulfa (Sulfonamide | Nausea, Stomach | | 04/16/19 | Other reaction(s): | | Antibiotics) | Upset | | 14 | VOMITING | + + + + + + | Sulfasalazine | Rash | Medium | 10//20 | | | | | | 15 | | + + + + + + Medications + + + +---------+------+------+-------+ | Medication | Sig | Dispensed | Refills | Star | End | [...] | | + + + +---------+------+------+-------+ | Blood-Glucose | Use for checking BG | 1 each | 0 | 01/2 | | Activ | | Meter misc | 3x daily | | | 20 | | e | | | | | | 19 | | | + + + +---------+------+------+-------+ | Miscellaneous | DME: oxygen | 1 each | 0 | 01/2 | | Activ | | Medical Supply | saturation monitor, | | | 07/21 | | e | | miscIndications: | for monitoring | | | 19 | | | | Type 2 diabetes | regularly, on | | | | | | | mellitus without | oxygenSize (if | | | | | | | complication, with | applicable): n/a | | | | | | | long-term current | | | | | | | | use of insulin (HCC) | | | | | | | + + + +---------+------+------+-------+ | insulin aspart | Inject 0-15 Units | 42 mL | 3 | 03/0 | | Activ | | U-100 100 unit/mL | under the skin | | | 8/20 | | e | | subcutaneous insulin | (SUBC) three times | | | 19 | | | | penIndications: | daily before meals. | | | | | | | Type 2 diabetes | Up to 45 units total | | | | | | | mellitus with | daily per sliding | | | | | | | diabetic | scale. 90d Rx | | | | | | | polyneuropathy, with | | | | | | | | long-term current | | | | | | | | use of insulin (HCC) | | | | | | | + + + +---------+------+------+-------+ | nitroglycerin 0.4 | Place 1 tablet under | 25 | 3 | 04/0 | | Activ | | mg sublingual | tongue as needed | tablet | | 10/21 | | e | | tablet, | for chest pain. | | | 19 | | | | sublingualIndication | | | | | | | | s: Atherosclerosis | | | | | | | | of [place] coronary | | | | | | | | artery of [place] | | | | | | | | heart with stable | | | | | | | | angina pectoris | | | | | | | | (HCC) | | | | | | | + + + +---------+------+------+-------+ | Insulin | Use for injecting | 500 | 3 | 04/0 | | Activ | | Syringe-Needle U-100 | insulin 5 times | each | | 11/21 | | e | | 1 mL 31 gauge x | daily | | | 19 | | | | 5/16 | | | | | | | | syringeIndications: | | | | | | | | Type 2 diabetes | | | | | | | | mellitus with | | | | | | | | diabetic | | | | | | | | polyneuropathy, with | | | | | | | | long-term current | | | | | | | | use of insulin (HCC) | | | | | | | + + + +---------+------+------+-------+ | Blood Sugar | 1 each four times | 120 | 5 | 07/2 | | Activ | | Diagnostic (ONETOUCH | daily. Use as | each | | 08/21 | | e | | ULTRA TEST) | directed. | | | 19 | | | | stripIndications: | | | | | | | | Essential | | | | | | | | hypertension, benign | | | | | | | + + + +---------+------+------+-------+ | semaglutide | Inject 1 mg under | 2 each | 11 | 01/2 | | Activ | | (OZEMPIC) 1 mg/dose | the skin (SUBC) | | | 09/20 | | e | | (2 mg/1.5 mL) | every seven days. | | | 20 | | | | subcutaneous pen | | | | | | | | injectorIndications: | | | | | | | | Type 2 diabetes | | | | | | | | mellitus with | | | | | | | | diabetic | | | | | | | | polyneuropathy, with | | | | | | | | long-term current | | | | | | | | use of insulin (HCC) | | | | | | | + + + +---------+------+------+-------+ | triamcinolone | Apply to affected | 45 g | 2 | 01/2 | | Activ | | acetonide 0.1 % | area two times | | | 09/20 | | e | | topical | daily. Apply thin | | | 20 | | | | ointmentIndications: | film to affected | | | | | | | Dermatitis | areas. | | | | | | + + + +---------+------+------+-------+ | albuterol 90 | INHALE 2 PUFFS BY | 54 g | 3 | 04/2 | | Activ | | mcg/actuation | MOUTH EVERY 4 HOURS | | | 20 | | e | | inhalation HFA | NEEDED FOR | | | 20 | | | | aerosol inhaler | SHORTNESS OF BREATH | | | | | | | | OR WHEEZING | | | | | | + + + +---------+------+------+-------+ | aspirin chewable | Chew and swallow 1 | 100 | 3 | 04/2 | | Activ | | 81 mg oral | tablet once daily. | tablet | | 20 | | e | | tablet,chewable | | | | 20 | | | + + + +---------+------+------+-------+ | atorvastatin 40 mg | Take 1 tablet by | 90 | 3 | 04/2 | | Activ | | oral tablet | mouth once daily. | tablet | | 11/21 | | e | | | | | | 20 | | | + + + +---------+------+------+-------+ | empagliflozin | Take 1 tablet by | 90 | 3 | 04/2 | | Activ | | (JARDIANCE) 10 mg | mouth once daily. | tablet | | 11/21 | | e | | oral | | | | 20 | | | | tabletIndications: | | | | | | | | Type 2 diabetes | | | | | | | | mellitus with | | | | | | | | diabetic | | | | | | | | polyneuropathy, with | | | | | | | | long-term current | | | | | | | | use of insulin ([facility]) | | | | | | | + + + +---------+------+------+-------+ | citalopram 20 mg | Take 1 tablet by | 90 | 3 | 05/0 | | Activ | | oral | mouth once daily. | tablet | | 10/21 | | e | | tabletIndications: | | | | 20 | | | | Major depressive | | | | | | | | disorder, recurrent | | | | | | | | episode, moderate | | | | | | | | (HCC) | | | | | | | + + + +---------+------+------+-------+ | clopidogreL 75 mg | Take 1 tablet by | 90 | 3 | 05/0 | | Activ | | oral | mouth once daily. | tablet | | 8/20 | | e | | tabletIndications: | | | | 20 | | | | Atherosclerosis of | | | | | | | | [place] coronary | | | | | | | | artery of [place] | | | | | | | | heart with stable | | | | | | | | angina pectoris | | | | | | | | ([facility]) | | | | | | | + + + +---------+------+------+-------+ | furosemide 20 mg | Take 1 tablet by | 90 | 3 | 05/0 | | Activ | | oral tablet | mouth once daily. | tablet | | 8/20 | | e | | | | | | 20 | | | + + + +---------+------+------+-------+ | gemfibroziL 600 mg | Take 1 tablet by | 180 | 3 | 05/0 | | Activ | | oral | mouth two times | tablet | | 8/20 | | e | | tabletIndications: | daily. | | | 20 | | | | Mixed hyperlipidemia | | | | | | | + + + +---------+------+------+-------+ | LEVEMIR U-100 | Inject 30-34 Units | 70 mL | 3 | 05/0 | | Activ | | INSULIN 100 unit/mL | under the skin | | | 8/20 | | e | | subcutaneous | (SUBC) two times | | | 20 | | | | solutionIndications: | daily. 90d Rx | | | | | | | Type 2 diabetes | | | | | | | | mellitus with | | | | | | | | diabetic | | | | | | | | polyneuropathy, with | | | | | | | | long-term current | | | | | | | | use of insulin (HCC) | | | | | | | + + + +---------+------+------+-------+ | insulin aspart | Inject 8-15 Units | 60 mL | 3 | 05/0 | | Activ | | U-100 100 unit/mL | under the skin | | | 8/20 | | e | | subcutaneous | (SUBC) three times | | | 20 | | | | solutionIndications: | daily before meals. | | | | | | | Type 2 diabetes | | | | | | | | mellitus with | | | | | | | | diabetic | | | | | | | | polyneuropathy, with | | | | | | | | long-term current | | | | | | | | use of insulin (HCC) | | | | | | | + + + +---------+------+------+-------+ | losartan 50 mg | Take 1 tablet by | 90 | 3 | 05/0 | | Activ | | oral | mouth once daily. | tablet | | 8/20 | | e | | tabletIndications: | | | | 20 | | | | Type 2 diabetes | | | | | | | | mellitus with | | | | | | | | diabetic | | | | | | | | polyneuropathy, with | | | | | | | | long-term current | | | | | | | | use of insulin ([facility]) | | | | | | | + + + +---------+------+------+-------+ | metoprolol | Take 1 tablet by | 90 | 3 | 05/0 | | Activ | | succinate 25 mg oral | mouth once daily. | tablet | | 8/20 | | e | | tablet extended | | | | 20 | | | | release 24 | | | | | | | | hrIndications: | | | | | | | | Atherosclerosis of | | | | | | | | [place] coronary | | | | | | | | artery of [place] | | | | | | | | heart with stable | | | | | | | | angina pectoris | | | | | | | | ([facility]) | | | | | | | + + + +---------+------+------+-------+ | isosorbide | Take 2 tablets by | 180 | 3 | 05/0 | | Activ | | mononitrate CR 30 mg | mouth once daily. | tablet | | 8/20 | | e | | oral tablet | | | | 20 | | | | extended release 24 | | | | | | | | hrIndications: | | | | | | | | Atherosclerosis of | | | | | | | | [place] coronary | | | | | | | | artery of [place] | | | | | | | | heart with stable | | | | | | | | angina pectoris | | | | | | | | ([facility]) | | | | | | | + + + +---------+------+------+-------+ | oxyCODONE | Take 1 tablet by | 98 | 0 | 07/3 | | Activ | | (immediate release) | mouth every six | tablet | | 1/20 | | e | | 5 mg oral | hours as needed for | | | 20 | | | | tabletIndications: | severe pain. 28d Rx, | | | | | | | Non-small cell | [place] indicated date | | | | | | | cancer of left lung | | | | | | | | ([facility]), Other chronic | | | | | | | | postprocedural pain | | | | | | | + + + +---------+------+------+-------+ | morphine SR 10 mg | Take 1 capsule by | 28 | 0 | 07/3 | | Activ | | oral | mouth once daily. | capsule | | 1/20 | | e | | capsule,[email or web address] | 28d Rx, [place] indicated | | | 20 | | | | se | date | | | | | | | pelletsIndications: | | | | | | | | Non-small cell | | | | | | | | cancer of left lung | | | | | | | | (HCC), Other chronic | | | | | | | | postprocedural pain | | | | | | | + + + +---------+------+------+-------+ | oxyCODONE | Take 1 tablet by | 98 | 0 | 08/2 | | Activ | | (immediate release) | mouth every six | tablet | | 8/20 | | e | | 5 mg oral | hours as needed for | | | 20 | | | | tabletIndications: | severe pain. 28d Rx, | | | | | | | Non-small cell | [place] indicated date | | | | | | | cancer of left lung | | | | | | | | (HCC), Other chronic | | | | | | | | postprocedural pain | | | | | | | + + + +---------+------+------+-------+ | morphine SR 10 mg | Take 1 capsule by | 28 | 0 | 09/2 | | Activ | | oral | mouth once daily. | capsule | | 5/20 | | e | | capsule,[email or web address] | 28d Rx, [place] indicated | | | 20 | | | | se | date | | | | | | | pelletsIndications: | | | | | | | | Non-small cell | | | | | | | | cancer of left lung | | | | | | | | (HCC), Other chronic | | | | | | | | postprocedural pain | | | | | | | + + + +---------+------+------+-------+ | oxyCODONE | Take 1 tablet by | 98 | 0 | 09/2 | | Activ | | (immediate release) | mouth every six | tablet | | 5/20 | | e | | 5 mg oral | hours as needed for | | | 20 | | | | tabletIndications: | severe pain. 28d Rx, | | | | | | | Non-small cell | [place] indicated date | | | | | | | cancer of left lung | | | | | | | | (HCC), Other chronic | | | | | | | | postprocedural pain | | | | | | | + + + +---------+------+------+-------+ | pregabalin 200 mg | Take 1 capsule by | 90 | 2 | / | | Activ | | oral | mouth three times | capsule | | 5/20 | | e | | capsuleIndications: | daily. Max: 600 | | | 20 | | | | Non-small cell | mg/day | | | | | | | cancer of left lung | | | | | | | | (HCC), Other chronic | | | | | | | | postprocedural pain | | | | | | | + + + +---------+------+------+-------+ | morphine SR 10 mg | Take 1 capsule by | 28 | 0 | 10/03 | | Activ | | oral | mouth once daily. | capsule | | 10/21 | | e | | capsule,[email or web address] | 28d Rx, [place] indicated | | | 20 | | | | se | date | | | | | | | pelletsIndications: | | | | | | | | Non-small cell | | | | | | | | cancer of left lung | | | | | | | | (HCC), Other chronic | | | | | | | | postprocedural pain | | | | | | | + + + +---------+------+------+-------+ Active Problems + + + | Problem | Noted Date | + + + | Chronic combined systolic and diastolic heart failure | 12/23/2018 | + + + | Asthma | 08/05/2018 | + + + | Back pain | 08/05/2018 | + + + | Gastroesophageal reflux disease | 08/05/2018 | + + + | Hypertension | 08/05/2018 | + + + | Spinal stenosis | 08/05/2018 | + + + | Chronic low back pain | 10/04/2017 | + + + | Left sided chest pain | 07/12/2017 | + + + | Volume overload | 06/30/2017 | + + + | QT prolongation | 06/25/2017 | + + + | Non-small cell cancer of left lung | 06/18/2017 | + + + | Atherosclerosis of [place] coronary artery of [place] heart | 05/20/2017 | + + + | History of myocardial infarct at age less than 60 years | 05/20/2017 | + + + | Adenocarcinoma of left lung | 05/17/2017 | + + + | Bone lesion | 05/02/2017 | + + + | Malignant neoplasm of lower lobe of left lung | 05/02/2017 | + + + | Cavitary lesion of lung | 03/28/2017 | + + + | Personal history of tobacco use, presenting hazards to health | 03/28/2017 | + + + | Elevated troponin | 02/13/2017 | + + + | Chest pain at rest | 02/13/2017 | + + + | S/P drug eluting coronary stent placement | 05/12/2015 | + + + | Type 2 diabetes mellitus with diabetic polyneuropathy, with | 05/03/2015 | | long-term current use of insulin | | + + + | Coronary artery disease involving [place] coronary artery of | 05/03/2015 | | [place] heart without angina pectoris | | + + + + + | Overview: Last Assessment & Plan: 44 yr old female with h/o | | CAD s/p PCI to pLAD- HTN, DM, HLD with angina and multiple ER | | visits for chest pain06/23/2013- [facility]- | | s/p PCI to pLAD, non obstructive disease in LM, Circ and | | RCAStress MPI 04/2015- Moderate to severe fixed perfusion defects | | in LAD territory with associated regional wall motion abnormality [...] | + + + + + | Angina pectoris | 05/03/2015 | + + + | Precordial pain | 05/03/2015 | + + + | Disorder of SI (sacroiliac) joint | 04/16/2013 | + + + | Lumbar post-laminectomy syndrome | 02/27/2013 | + + + | Lumbar radiculopathy | 12/22/2012 | + + + | Myofascial pain | 12/12/2012 | + + + | Heart murmur | 10/24/2012 | + + + | Pain management | 09/01/2012 | + + + + + | Overview: Overview: +UDS 04/23/2012 ([facility]) for meth and | | unprescribed benzos, and 01/2010 (Dr. Johnson) for meth. UDS | | 08/2012 negative for opiates, prescribed high doses of oxycodone | | by Dr. Barger of Neurosurgery (see scanned records), but no | | confirmation done for oxycodone, felt by [facility] to be unlikely to | | be negative at those doses, but we can't be sure without | | confirmation. | + + + + + | Lumbar disc herniation with radiculopathy | 06/04/2012 | + + + | Abnormal glandular Papanicolaou smear of cervix | 05/23/2012 | + + + + + | Overview: Overview: History of abnormal PAP in 2009 with | | history of cervical cancer at age 17. Needs PAP smear [facility]. | + + +---------+ + | Obesity | 05/23/2012 | +---------+ + + + | Overview: BMI was documented as equal to or greater than 30, | | but less than 40. | + + + + + | Lumbar radiculopathy | 05/23/2012 | + + + | Chronic low back pain | 05/22/2012 | + + + + + | Overview: Overview: | | With intermittent times of acute worsening of back pain. | | +UDS 01/2010 for Meth, transferred to [facility] after that. | + + + + + | Essential hypertension | 05/22/2012 | + + + | Mixed hyperlipidemia | 08/25/2010 | + + + | Hyperlipidemia | 08/25/2010 | + + + | Type 2 diabetes mellitus | 08/25/2010 | + + + | Essential hypertension, benign | 03/02/2010 | + + + | Major depressive disorder, recurrent episode, moderate | 03/02/2010 | + + + + + | Overview: Overview: | | Well controlled on Prozac 20mg daily | + + + + + | Migraine headache | 03/02/2010 | + + + + + | Overview: Overview: | | Controlled well with Midrin | + + + + + | Mild intermittent asthma | 03/02/2010 | + + + + + | Overview: Overview: | | Well controlled with albuterol inhaler prn. | + + + + + | Spinal stenosis, unspecified region other than cervical | 03/02/2010 | + + + + + | Overview: Overview: | | L4-L5 per MRI done 11/21/2009 | + + + + + | Thoracic or lumbosacral neuritis or radiculitis, unspecified | 03/02/2010 | + + + + + | Overview: Overview: L5-S1 disc broad based protrusion with | | left sided herniation. Per MRI done 11/2009 | + + + + + | Major depressive disorder, recurrent episode, moderate | 03/02/2010 | + + + + + | Overview: Overview: | | Well controlled on Prozac 20mg daily | | Overview: | | Well controlled on Prozac 20mg daily | + + + + + | Migraine headache | 03/02/2010 | + + + + + | Overview: Overview: | | Controlled well with Midrin | + + + + + | Mild intermittent asthma | 03/02/2010 | + + + + + | Overview: Overview: | | Well controlled with albuterol inhaler prn. | + + Resolved Problems + + + + | Problem | Noted | Resolved | | | Date | Date | + + + + | Methamphetamine addiction | 08/06/19 | | | | 19 | 9 | + + + + | Moderate episode of recurrent major depressive disorder | 08/06/19 | | | | 19 | 9 | + + + + | Acute respiratory failure with hypoxia | 06/26/19 | | | | 18 | 9 | + + + + | ST elevation myocardial infarction involving left anterior | 02/14/20 | | | descending (LAD) coronary artery | 17 | 9 | + + + + | Angina effort | 07/17/19 | | | | 17 | 9 | + + + + + + | Overview: Last Assessment & Plan: 45 yr old female with h/o | | CAD s/p PCI to pLAD- HTN, DM, HLD with angina and multiple ER | | visits for chest painLost in follow up since PCI now presents | | with angina on effort- she reports medication | | compliance06/23/2013- [facility]- s/p PCI to | | pLAD, non obstructive disease in LM, Circ and RCAStress MPI | | 04/2015- Moderate to severe fixed perfusion defects in LAD | | territory with associated regional wall motion abnormality | | concerning for infarct or hibernating myocardium.05/11/2015- [facility] to | | severe ISR to pLAD stent, Moderate disease of the proximal left | | anterior descending arteryproximal to the previous stent, with | | insignificant FFR value of 0.87.Continue Losartan, Pasugrel, | | ASAWill add Norvasc 2.5mg daily and Imdur 30mg dailyNGT sl prn as | | neededDM not well controlled- lipids not well controlled- | | currently not taking any statins- Will add Atorvastatin 40mg | | dailyStrongly advised to stop smoking.Will do echo to evaluate LV | | function, WMA, valvesWill do Lipids, BMP, CBCDiscussed | | importance of risk factor control like tight DM, HTN, HLD control | | in management of CAD-Give risk factors and hx of ISR to pLAD | | stent and now with exertional angina symptoms will proceed with | | coronary angiogram- after discussing risks, benefits and | | alternatives to procedure- she want to proceed with coronary | | angiogram verbally expressing understanding of the procedure.F/u | | after test | + + Encounters +--------+ + + + + | Date | Type | Specialty | Care Team | Description | +--------+ + + + + | 10/15/ | [facility] | Family Practice | Yuriy Cardenas, | | | 2020 | Encounter | | PA-C | | +--------+ + + + + | 09/25/ | [facility] | Family Practice | Yuriy Cardenas, | RE: Still pretty | | 2020 | Encounter | | PA-C | sick.... | +--------+ + + + + | 09/17/ | Telephone | Family Practice | Yuriy Cardenas, | Lab Order | | 2019 | | | PA-C | | +--------+ + + + + | 09/15/ | Telephone-S | Family Practice | Yuriy Cardenas, | Diabetes mellitus; | | 2019 | cheduled | | PA-C | Cough; Chronic pain | +--------+ + + + + | 09/13/ | Telephone | Hematology & | Eric Rashid MD | | | 2020 | | Oncology | | | +--------+ + + + + | 09/07/ | Travel | | | | | 2020 | | | | | +--------+ + + + + | 09/07/ | MyChart | Radiology | | Appointment Reminder | | 2020 | Encounter | | | | +--------+ + + + + | 09/02/ | MyChart | Family Practice | Yuriy Cardenas, | RE: Medication | | 2019 | Encounter | | PA-C | Refill | +--------+ + + + + | 08/30/ | MyChart | Radiology | | CT Screening Form | | 2020 | Encounter | | | | +--------+ + + + + | 08/27/ | Telephone | Hematology & | Abelino Pan MD | Appointment Question | | 2020 | | Oncology | | | +--------+ + + + + | 08/04/ | Documentati | Neurological Surgery | Sivakumar Tanner, | | | 2019 | on | | MD | | +--------+ + + + + from Last 3 Months Immunizations + + + + | Name | Administration Dates | Next Due | + + + + | HepB-Adult | 11/29/2017 | | + + + + | Pneumococcal 23 | 06/24/2013 | | + + + + | Tdap | 11/29/2017 | | + + + + Family [...] +------+--------+ + Social History + + + +--------+ [...] recent travel history available. | + + Last Filed Vital Signs + + + + + | Vital Sign | Reading | Time Taken | Comments | + + + + + | Blood Pressure | 116/70 | 03/30/2019 4:19 PM | | | | | PST | | + + + + + | Pulse | 70 | 03/30/2019 4:19 PM | | | | | PST | | + + + + + | Temperature | 36.9 C (98.4 F) | 07/10/2018 3:15 PM | | | | | PDT | | + + + + + | Respiratory Rate | 16 | 03/30/2019 4:19 PM | | | | | PST | | + + + + + | Oxygen Saturation | 98% | 08/05/2018 2:44 PM | | | | | PDT | | + + + + + | Inhaled Oxygen | - | - | | | Concentration | | | | + + + + + | Weight | 80.7 kg (178 lb) | 03/30/2019 4:19 PM | | | | | PST | | + + + + + | Height | 167.6 cm (5' 6") | 08/05/2018 2:44 PM | | | | | PDT | | + + + + + | Body Mass Index | 28.73 | 08/05/2018 2:44 PM | | | | | PDT | | + + + + + Plan of Treatment + + + + + | Health Maintenance | Due Date | Last Done | Comments | + + + + + | HIV screening | | | | | | 1 | | | + + + + + | Hepatitis C | | | | | screening | 1 | | | + + + + + | Preconception/contra | | | | | ception counseling | 1 | | | | (one goss question) | | | | + + + + + | Relationship safety | | | | | screening | 1 | | | + + + + + | Diabetic eye exam | | | | | | 1 | | | + + + + + | Urine Drug Screening | | | | | | 6 | | | + + + + + | Cervical cancer | | 10/08/2008 | | | screening (pap | 4 | | | | smear) | | | | + + + + + | Monofilament foot | | 10/24/2012 | | | exam | 4 | | | + + + + + | Mammogram | | 12/04/2012 | | | | 4 | | | + + + + + | Hepatitis B | | 11/29/2017 | | | vaccination (2 of 3 | 8 | | | | - Risk 3-dose | | | | | series) | | | | + + + + + | Hemoglobin A1c | | 03/30/2019, 12/23/2018, | | | | 0 | 09/26/2018, Additional history | | | | | exists | | + + + + + | Influenza (Flu) | | | | | vaccination (#1) | 0 | | | + + + + + | Substance abuse | | 12/23/2018, 11/29/2017 | | | screening | 0 | | | + + + + + | DEPRESSION SCREEN | | 12/24/2018, 12/23/2018 | | | | 0 | | | + + + + + | Cholesterol | | 03/30/2019, 03/30/2019, | | | screening | 1 | 07/09/2017, Additional history | | | | | exists | | + + + + + | Creatinine | | 03/30/2019, 09/26/2018, | | | | 1 | 07/07/2018, Additional history | | | | | exists | | + + + + + | Medical attention | | 07/10/2019, 03/28/2018, | | | for nephropathy | 1 | 05/17/2017, Additional history | | | | | exists | | + + + + + | Prescription Drug | | 09/16/2019 | | | Monitoring Program | 1 | | | | (PDMP) | | | | + + + + + | Diphtheria,Tetanus,P | | 11/29/2017 | | | ertussis vaccination | 8 | | | | (2 - Td) | | | | + + + + + | Pneumococcal | Completed | 06/24/2013 | | | vaccination | | | | + + + + + Implants + +------+--------+ +--------+--------+--------+ | Implanted | Type | Area | Manufacture | Device | Shelf | Model | | | | | r | | Expira | / | | | | | | Identi | tion | Serial | | | | | | fier | Date | / Lot | + +------+--------+ +--------+--------+--------+ | BimodalImplanted: Qty: 1 on | | N/A: | BALWINDER | | 01/01/ | 2101-1 | | 12/23/2012 by Sivakumar Tanner | | Spine | | | 2013 | 905 / | | MD David at [facility] | | | | | | /[id number] | | LOC | | | | | | 014 | + +------+--------+ +--------+--------+--------+ | Eder BimodalImplanted: Qty: | | N/A: | BALWINDER | | 03/03/ | 2101-1 | | 1 on 12/23/2012 by Antonio, | | Spine | | | 2013 | 910 / | | Adama Rojo MD at [facility] | | | | | | /[id number] | | REV LOC | | | | | | 008 | + +------+--------+ +--------+--------+--------+ | Aria [id number] | | Bilate | BALWINDER | | | [id number] | | DegreeImplanted: Qty: 1 on | | ral: | | | | / | | 12/23/2012 by Adama Alvarez, | | Neck | | | | | | at [facility] LOC | | | | | | | + +------+--------+ +--------+--------+--------+ | Screw Renetta 3 Ti Polyaxial 7.5 | | N/A: | [place] | | | [id number] | | X 35 Mm - [id number]: | | Spine | | | | 535 / | | Qty: 1 on 12/23/2012 by | | | | | | / | | Adama Alvarez MD at [facility] | | | | | | | | INPATIENT REV LOC | | | | | | | + +------+--------+ +--------+--------+--------+ | Screw Renetta 3 Ti Polyaxial 6.5 | | N/A: | [place] | | | [id number] | | X 45 Mm - [id number]: | | Spine | | | | 545 / | | Qty: 1 on 12/23/2012 by | | | | | | / | | Adama Alvarez MD at [facility] | | | | | | | | INPATIENT REV LOC | | | | | | | + +------+--------+ +--------+--------+--------+ | Screw Renetta 3 Ti Polyaxial 6.5 | | N/A: | [place] | | | [id number] | | X 40 Mm - [id number]: | | Spine | | | | 540 / | | Qty: 3 on 12/23/2012 by | | | | | | / | | Adama Alvarez MD at [facility] | | | | | | | | INPATIENT REV LOC | | | | | | | + +------+--------+ +--------+--------+--------+ | Screw Renetta 3 Ti Polyaxial 6.5 | | N/A: | [place] | | | [id number] | | X 35 Mm - [id number]: | | Spine | | | | 535 / | | Qty: 1 on 12/23/2012 by | | | | | | / | | Adama Alvarez MD at [facility] | | | | | | | | INPATIENT REV LOC | | | | | | | + +------+--------+ +--------+--------+--------+ | Screw Renetta 3 Ti Polyaxial 4.5 | | N/A: | [place] | | | [id number] | | X 40 Mm - [id number]: | | Spine | | | | 540 / | | Qty: 2 on 12/23/2012 by | | | | | | / | | Adama Alvarez MD at [facility] | | | | | | | | INPATIENT REV LOC | | | | | | | + +------+--------+ +--------+--------+--------+ | Julio Cesar Renetta 3 Rad 6 X 90mm - | | N/A: | [place] | | | [id number] | | [id number]: Qty: 2 on | | Spine | | | | 90 / / | | 12/23/2012 by Adama Alvarez, | | | | | | | | MD at [facility] REV LOC | | | | | | | + +------+--------+ +--------+--------+--------+ | Cap Renetta 3 Ti [place] - | | | [place] | | | [id number] | | [id number]: Qty: 8 on | | | | | | 00 / / | | 12/23/2012 by Adama Alvarez, | | | | | | | | MD at [facility] REV LOC | | | | | | | + +------+--------+ +--------+--------+--------+ Results Not on filefrom Last 3 Months Insurance + +--------+ +--------+ + +--------+ | Payer | Benefi | Subscriber | Effect | Phone | Address | Type | | | t Plan | ID | marla | | | | | | / | | Dates | | | | | | Group | | | | | | + +--------+ +--------+ + +--------+ | MEDICARE | MEDICA | xxxxxxxxxxx | 10/03/19 | [phone] | [address] | Medica | | | RE A & | | 13-Pre | 1 | [phone] | re | | | B | | sent | | [place] | | | | | | | | [address] | | + +--------+ +--------+ + +--------+ + +--------+ +--------+ + + | Guarantor Name | Accoun | Relation to | Date | Phone | Billing Address | | | t Type | Patient | of | | | | | | | | | | + +--------+ +--------+ + + | Nancy Terrazas | Person | Self | [birth year] | [address] | | | al/Fam | | 1971 | [phone] | [place] [address] | | | latanya | | | 0 (Home) | | + +--------+ +--------+ + + Advance Directives + + + + + | Code Status | Date | Date | Comments | | | Activated | Inactivated | | + + + + + | Full Code | 07/12/2017 | 07/12/2017 | | | | 4:41 AM | 10:30 PM | | + + + + + + + + +---+ | | | | | + + + +---+ | Full Code | 12/23/2012 | 12/26/2012 | | | | 8:28 AM | 11:17 PM | | + + + +---+
--- OUTSIDE RECORDS SUMMARY | ~2019-10-16 | XMS | Encounter Summary ---
Demographics + + + | Address | [address] | | | [place] [address] | + + + | Home Phone | | + + + | Preferred Language | Unknown | + + + | Marital Status | | + + + | Protestant Affiliation | PRE | + + + | Race | White | + + + | Ethnic Group | Not or | + + + Author + + + | Author | [facility] | + + + | Organization | [facility] | + + + | Address [...] #[place] | | | | | [address] | | + + + + + | Bebe Terrazas | ECON | Unknown | Unavailable | + + + + + | Arden Terrazas | ECON | Unknown | | + + + + + Care Team Providers + +------+ + | Care Cashiers Supervisor Name | Role | Phone | + +------+ + | Zora Haddad DO | PCP | | + +------+ + Reason for Visit + + + | Reason | Comments | + + + | Did Not Attend | | | Outpatient | | | Appointment | | + + + Encounter Details +--------+ + + + + | Date | Type | Department | Care Team | Description | +--------+ + + + + | 03/27/ | Telephone | [facility] | Jordan Gray, | Did Not Attend | | 2013 | | Therapy Services at | DPT [address] | Outpatient | | | | [facility] | [place], [place] | Appointment | | | | [address] | [address] | | | | | [facility] | [phone] | | | | | and Healing, | | | | | | [facility] | | | | | | [place], [place] | | | | | | [address] | | | | | | [phone] | | | +--------+ + + + [...]
--- OUTSIDE RECORDS SUMMARY | ~2019-10-16 | XMS | Encounter Summary ---
Demographics + + + | Address | [address] | | | [place] [address] | + + + | Home Phone | | + + + | Preferred Language | Unknown | + + + | Marital Status | | + + + | Methodist Affiliation | PRE | + + + | Race | White | + + + | Ethnic Group | Not or | + + + Author + + + | Author | [facility] | + + + | Organization | [facility] | + + + | Address [...] #[address] | | | | | [address] | | + + + + + | Bebe Terrazas | ECON | Unknown | Unavailable | + + + + + | Arden Terrazas | ECON | Unknown | | + + + + + Care Team Providers + +------+ + | Care Manager Aviation Name | Role | Phone | + +------+ + | Yuriy Cardenas PA-C | PCP | | + +------+ + Reason for Visit + + + | Reason | Comments | + + + | Medication requested | Oxy, Morphine, Semaglutide (ozempic) | + + + Encounter Details +--------+ + + + + | Date | Type | Department | Care Team | Description | +--------+ + + + + | 03/10/ | Telephone | [facility] Primary Care | Yuriy Cardenas, | Medication requested | | 2019 | | at [place] [address] | [place] [address] | (Oxy, Morphine, | | | | [address] | [facility] | Semaglutide | | | | [facility] [place], [place] | [place], [place] | (ozempic)) | | | | [address] | [address] | | | | | [phone] | [phone] | | | | | | | [...] current use of | | insulin (HCC) | + + documented in this encounter"
--- OUTSIDE RECORDS SUMMARY | ~2019-10-16 | XMS | Encounter Summary ---
Demographics + + + | Address | [address] | | | [place] [address] | + + + | Home Phone | | + + + | Preferred Language | Unknown | + + + | Marital Status | | + + + | Synagogue Affiliation | PRE | + + + [...] #[place] | | | | | [address] | | + + + + + | Bebe Terrazas | ECON | Unknown | Unavailable | + + + + + | Arden Terrazas | ECON | Unknown | | + + + + + Care Team Providers + +------+ + | Care Field Sales Associate Name | Role | Phone | + +------+ + | Zora Haddad DO | PCP | | + +------+ + Reason for Visit AUTH/CERT +--------+--------+ + + + + | Status | Reason | Specialty | Diagnoses / | Referred By | Referred To | | | | | Procedures | Contact | Contact | +--------+--------+ + + + + | Closed | | | | | | +--------+--------+ + + + + Encounter Details +--------+ + + + + | Date | Type | Department | Care Team | Description | +--------+ + + + + | 12/22/ | Hospital | Cardiac | Sjh, Car Ecg Tech | | | 2012 | Encounter | Non-Invasive Testing | [address] | | | | | at [place] | [facility] | | | | | [address] | [place] [address] | | | | | [address] | | | | | | [place], [address] [place] [address] | | | | | | [place], [place] | | | | | | [address] | | | | | | [phone] | | | +--------+ + + + [...] + + documented as of this encounter Medications at Time of Discharge + + + +---------+ + + | Medication | Sig | Dispensed | Refills | Start | End Date | | | | | | Date | | + + + +---------+ + + | insulin glargine | Inject 20 Units | 10 mL | 0 | 12/27/19 | | | (LANTUS) 100 unit/mL | under the skin | | | 13 | 3 | | Subcutaneous | (SUBC) once daily | | | | | | SolutionIndications: | for 4 days. | | | | | | diabetes mellitus | | | | | | + + + +---------+ + + documented as of this encounter Plan of Treatment Not on filedocumented as of this encounter Procedures + +--------+ + + + | Procedure Name | Priori | Date/Time | Associated Diagnosis | Comments | | | ty | | | | + +--------+ + + + | 12 LEAD ECG | Routin | 12/22/2012 | Preop examination | Results for this | | | e | 4:41 PM | | procedure are in the | | | | PDT | | results section. | + +--------+ + + + documented in this encounter Results 12 LEAD ECG (12/22/2012 4:41 PM PDT) + + + + + + | Component | Value | Ref Range | Performed | Pathologist | | | | | At | Signature | + + + + + + | VENTRICULAR | 104 | BPM | [facility] | | | RATE | | | OF | | | | | | CARDIOLOGY | | + + + + + + | ATRIAL RATE | 104 | BPM | [facility] | | | | | | OF | | | | | | CARDIOLOGY | | + + + + + + | P-R | 142 | ms | [facility] | | | INTERVAL | | | OF | | | | | | CARDIOLOGY | | + + + + + + | QRS | 84 | ms | [facility] | | | DURATION | | | OF | | | | | | CARDIOLOGY | | + + + + + + | QT | 330 | ms | [facility] | | | | | | OF | | | | | | CARDIOLOGY | | + + + + + + | QTC | 433 | ms | [facility] | | | | | | OF | | | | | | CARDIOLOGY | | + + + + + + | P AXIS | 49 | degrees | [facility] | | | | | | OF | | | | | | CARDIOLOGY | | + + + + + + | R AXIS | 22 | degrees | [facility] | | | | | | OF | | | | | | CARDIOLOGY | | + + + + + + | T AXIS | 12 | degrees | [facility] | | | | | | OF | | | | | | CARDIOLOGY | | + + + + + + | EKG | Sinus | | [facility] | | | DIAGNOSIS | tachycardiaPossible Left | | OF | | | | atrial | | CARDIOLOGY | | | | enlargementBorderline | | | | | | ECGConfirmed by | | | | | | BAILEY ALFONSO | | | | | | ([id number]) on 12/24/2012 | | | | | | 9:46:22 PM | | | | + + + + + + + + | Specimen | + + | | + + + + + | Narrative | Performed At | + + + | Please click | [facility] OF | | on view image for the detailed interpretation from [employer] results. | CARDIOLOGY | + + + + + | Procedure Note | + + | Interface, Cardiology Results - 12/24/2012 9:50 PM PDT Please click on view image | | for the detailed interpretation from [employer] results. | + + + + + + + | Performing | Address | City/State/Zipcode | Phone Number | | Organization | | | | + + + + + | [facility] | [address] | [place], [place] | | | CARDIOLOGY | [address] | [address] | | + + + + + documented in this encounter Visit Diagnoses + + | Diagnosis | + + | Preop examination - Primary Preoperative examination, unspecified | + + documented in this encounter"
--- OUTSIDE RECORDS SUMMARY | ~2019-10-16 | XMS | Encounter Summary ---
Demographics + + + | Address | [address] | | | [place] [address] | + + + | Home Phone | | + + + | Preferred Language | Unknown | + + + | Marital Status | | + + + | Sabianist Affiliation | PRE | + + + | Race | White | + + + | Ethnic Group | Not or | + + + Author + + + | Author | [facility] | + + + | Organization | [facility] | + + + | Address | Unknown | + + + | Phone | Unavailable | + + + Support + + + + + | Name | Relationship | Address | Phone | + + + + + | Dustin Terrazas | ECON | [address] | Unavailable | | | | #[place] | | | | | [address] | | + + + + + | Bebe Terrazas | ECON | Unknown | Unavailable | + + + + + | Arden Terrazas | ECON | Unknown | | + + + + + Care Team Providers + +------+ + | Care Bolt Cutter Name | Role | Phone | + +------+ + | Yuriy Cardenas PA-C | PCP | | + +------+ + Reason for Visit + + + | Reason | Comments | + + + | Medication requested | | + + + Encounter Details +--------+ + + + + | Date | Type | Department | Care Team | Description | +--------+ + + + + | 05/23/ | Telephone | [facility] Primary Care | Yuriy Cardenas, | Medication requested | | 2018 | | at [place] [address] | PA-C [address] | | | | [address] | [facility] | | | | | [facility] [place], [place] | [place], [place] | | | | | [address] | [address] | | | | | [phone] | [phone] | | | | | | | [...]
--- OUTSIDE RECORDS SUMMARY | ~2019-10-16 | XMS | Encounter Summary ---
Demographics + + + | Address | [address] | | | [place] [address] | + + + | Home Phone | | + + + | Preferred Language | Unknown | + + + | Marital Status | | + + + | Faith Affiliation | 1013 | + + + | Race | Unknown | + + + | Ethnic Group | Unknown | + + + Author + + + | Author | [facility] | | | and [place] | + + + | Organization | [facility] | | | and [place] | + + + | Address | Unknown | + + + | Phone | Unavailable | + + + Support + + + + + | Name | Relationship | Address | Phone | + + + + + | Dustin Terrazas | ECON | [place] | | | | | [address] | | + + + + + | Bebe Terrazas | ECON | [address] | | | | [place] | | | | | [address] | | + + + + + Care Team Providers + +------+ + | Care Supervisor Doping Name | Role | Phone | + +------+ + | Ki Senior NP | PCP | | + +------+ + Encounter Details +--------+ + + + + | Date | Type | Department | Care Team | Description | +--------+ + + + + | 04/23/ | Hospital | [facility] | Conversion | | | 2018 | Encounter | [facility] [address] | Transaction, | | | | | [address] | Provider Unknown | | | | | [place], [place] | | | | | | [address] | (Fax) | | | | | [phone] | | | +--------+ + + + [...] + + + +---------+ + + | albuterol 90 | Inhale 1-2 puffs | | 0 | 01/22/20 | | | mcg/puff inhaler | into the lung Every | | | 13 | | | | 6 Hours As Needed | | | | | | | for Wheezing or | | | | | | | Shortness of Breath. | | | | | + + + +---------+ + + | aspirin 81 mg EC | Take 81 mg by mouth | | 0 | | | | tablet | Daily. | | | | | + + + +---------+ + + | atorvaSTATin | Take 1 tablet by | | 0 | 02/16/20 | | | (LIPITOR) 40 mg | mouth nightly. | | | 17 | | | tablet | | | | | | + + + +---------+ + + | atorvaSTATin | Take 1 tablet (80 mg | | 0 | 06/25/19 | | | (LIPITOR) 80 MG | total) by mouth | | | 14 | | | tablet | Daily | | | | | + + + +---------+ + + | carvedilol (COREG) | Take 1 tablet by | 60 | 1 | 02/16/20 | | | 3.125 mg tablet | mouth 2 times daily | tablet | | 17 | | | | (with breakfast & | | | | | | | dinner). | | | | | + + + +---------+ + + | clopidogrel | Take 1 tablet by | 30 | 0 | 02/17/20 | | | (PLAVIX) 75 mg | mouth Daily. | tablet | | 17 | | | tablet | | | | | | + + + +---------+ + + | DULoxetine | Take 30 mg QAM with | | 0 | 12/13/19 | | | (CYMBALTA) [address] | food for 2 weeks. | | | 13 | | | capsule | Then increase to 60 | | | | | | | mg QAM with food. | | | | | + + + +---------+ + + | E-Z Ject Lancets | 1 each by | | 0 | 10/25/19 | | | Thin MISC | Miscellaneous route | | | 13 | | | | As Needed for Serum | | | | | | | glucose. Dx: 250.0 | | | | | + + + +---------+ + + | glimepiride | Take 1 tablet (1 mg | | 0 | 05/28/19 | | | (AMARYL) 1 mg tablet | total) by mouth | | | 15 | | | | Every Morning | | | | | | | (Before Breakfast) | | | | | + + + +---------+ + + | Glucose Blood | 1 strip by | | 0 | 10/25/19 | | | (BLOOD GLUCOSE TEST | Misc.(Non-Drug; | | | 13 | | | STRIPS) STRP | Combo Route) route 2 | | | | | | | Times Daily. | | | | | + + + +---------+ + + | | Take 1-2 tablets by | | 0 | 03/23/19 | | | HYDROcodone-acetamin | mouth Every 6 Hours | | | 15 | | | ophen (NORCO) 5-325 | As Needed for Pain | | | | | | mg per tablet | | | | | | + + + +---------+ + + | ibuprofen | Take 1 tablet by | | 0 | 10/24/19 | | | (ADVIL,MOTRIN) 800 | mouth Every 8 Hours | | | 13 | | | MG tablet | As Needed for Pain. | | | | | + + + +---------+ + + | insulin aspart | Inject 28 Units | | 0 | | | | (NOVOLOG) 100 | under the skin 3 | | | | | | units/mL injection | times daily (before | | | | | | | meals). | | | | | + + + +---------+ + + | insulin detemir | Inject 32 Units | | 0 | | | | (LEVEMIR) 100 | under the skin 2 | | | | | | units/mL injection | times daily. | | | | | | (vial) | | | | | | + + + +---------+ + + | lisinopril | Take 1 tablet by | 30 | 1 | 02/17/20 | | | (PRINIVIL,ZESTRIL) | mouth Daily. | tablet | | 17 | | | 2.5 MG tablet | | | | | | + + + +---------+ + + | losartan (COZAAR) | Take 1 tablet by | | 0 | 06/21/19 | | | 25 mg tablet | mouth daily. | | | 13 | | + + + +---------+ + + | metFORMIN | Take 1/2 tab by | | 0 | 10/25/19 | | | (GLUCOPHAGE) 500 mg | mouth twice daily | | | 13 | | | tablet | with meals for 1 | | | | | | | week, then full tab | | | | | | | twice daily with | | | | | | | meals. | | | | | + + + +---------+ + + | metoprolol | Take 1 tablet by | | 0 | 06/25/19 | | | succinate | mouth nightly. | | | 14 | | | (TOPROL-XL) 25 mg 24 | | | | | | | hr tablet | | | | | | + + + +---------+ + + | nicotine | Take 1 lozenge (2 mg | | 0 | 06/25/19 | | | polacrilex (COMMIT) | total) by mouth | | | 14 | | | 2 MG lozenge | Every Hour As Needed | | | | | | | for Smoking | | | | | | | cessation (prn MILD | | | | | | | withdrawl symptoms: | | | | | | | irritability, | | | | | | | restlessness, | | | | | | | anxiety, sleep | | | | | | | disturbances, or | | | | | | | severe craving.) | | | | | + + + +---------+ + + | nitroglycerin | Place 1 tablet under | 20 | 0 | 02/16/20 | | | (NITROSTAT) 0.4 mg | the tongue every 5 | tablet | | 17 | | | SL tablet | minutes as needed | | | | | | | for Chest pain. | | | | | + + + +---------+ + + | oxyCODONE 10 MG | Take 10 mg by mouth | | 0 | | | | TABS | every 6 hours as | | | | | | | needed for Pain. | | | | | + + + +---------+ + + | potassium chloride | Take 1 capsule by | | 0 | 03/13/19 | | | (MICRO-K) 10 mEq CR | mouth daily. | | | 18 | | | capsule | | | | | | + + + +---------+ + + | tiZANidine | Take 1 tablet (4 mg | | 0 | 05/11/19 | | | (ZANAFLEX) 4 mg | total) by mouth | | | 13 | | | tablet | Every 6 Hours As | | | | | | | Needed | | | | | + + + +---------+ + + | tiZANidine | Take 4 mg by mouth 3 | | 0 | | | | (ZANAFLEX) 4 mg | times daily as | | | | | | tablet | needed for Muscle | | | | | | | spasms. | | | | | + + + +---------+ + + documented as of this encounter Plan of Treatment Not on filedocumented as of this encounter Visit Diagnoses Not on filedocumented in this encounter"
--- OUTSIDE RECORDS SUMMARY | ~2019-10-16 | XMS | Encounter Summary ---
Demographics + + + | Address | [address] | | | [place] [address] | + + + | Home Phone | | + + + | Preferred Language | Unknown | + + + | Marital Status | | + + + | Nondenominational Affiliation | PRE | + + + | Race | White | + + + | Ethnic Group | Not or | + + + Author + + + | Author | [facility] | + + + | Organization | [facility] | + + + | [...] #[place] | | | | | [address] | | + + + + + | Bebe Terrazas | ECON | Unknown | Unavailable | + + + + + | Arden Terrazas | ECON | Unknown | | + + + + + Care Team Providers + +------+ + | Care Log Clerk Name | Role | Phone | + +------+ + | Yuriy Cardenas PA-C | PCP | | + +------+ + Encounter Details +--------+ + + + + | Date | Type | Department | Care Team | Description | +--------+ + + + + | 09/29/ | Telephone | [facility] Primary Care | Yuriy Cardenas, | | | 2018 | | at [place] [address] | PA-C [address] | | | | [address] | [address] | | | | | [facility] [place], [place] | [place], [place] | | | | | [address] | [address] | | | | | [phone] | [phone] | | | | | | | [...]
--- OUTSIDE RECORDS SUMMARY | ~2019-10-16 | XMS | Encounter Summary ---
Demographics + + + | Address | [address] | | | [place] [address] | + + + | Home Phone [...] Author + + + | Author | [facility] | + + + | Organization | [facility] | + + + | [...] #[place] | | | | | [address] | | + + + + + | Bebe Terrazas | ECON | Unknown | Unavailable | + + + + + | Arden Terrazas | ECON | Unknown | | + + + + + Care Team Providers + +------+ + | Care Dimension Stone Quarry Supervisor Name | Role | Phone | + +------+ + | Crissy Santoyo PA-C | PCP | | + +------+ + Encounter Details +--------+ + + + + | Date | Type | Department | Care Team | Description | +--------+ + + + + | 05/20/ | Hospital | Diagnostic | | | | 2014 | Encounter | Radiology at [facility] | | | | | | [address] | | | | | | [address] | | | | | | [place], [address] | | | | | | [place], [place] | | | | | | [address] | | | | | | [phone] | | | +--------+ + + + [...] + | X-RAY SPINE | Routin | 05/20/2013 | Back pain Lumbar | Results for this | | THORACOLUMBAR | e | 11:45 AM | radiculopathy | procedure are in the | | STANDING | | PDT | Lumbar | results section. | | | | | post-laminectomy | | | | | | syndrome | | + +--------+ + + + documented in this encounter Results X-RAY SPINE THORACOLUMBAR STANDING (05/20/2013 11:45 AM PDT) + + + + + + | Component | Value | Ref Range | Performed | Pathologist | | | | | At | Signature | + + + + + + | SPINE | STUDY: SPINE | | | | | THORACOLUMB | THORACOLUMBAR STANDING | | | | | AR STANDING | 05/20/13 11:45:00 | | | | | | COMPARISON: 10/02/1309 and | | | | | | CT lumbar spine | | | | | | 04/15/13. HISTORY: | | | | | | Thoracic back pain | | | | | | status post L3-S1 | | | | | | fusion. FINDINGS: There | | | | | | is L3-S1 posterior | | | | | | spinal fusion with | | | | | | paraspinal rods and | | | | | | pedicle screwswith | | | | | | normal alignment. No | | | | | | hardware failure or | | | | | | loosening is observed. | | | | | | Discectomyand | | | | | | intervertebral grafts | | | | | | are present from L3-S1 | | | | | | and the grafts project | | | | | | inexpected position. | | | | | | L3-S1 laminectomy | | | | | | defects are observed. | | | | | | The visualized vertebral | | | | | | bodies are of normal | | | | | | height. Minimal | | | | | | dextrocurvatureseen of | | | | | | the lower thoracic and | | | | | | upper lumbar spine, | | | | | | otherwise the alignment | | | | | | isnormal. Mild disc | | | | | | space narrowing is noted | | | | | | of the lower thoracic | | | | | | spine withendplate | | | | | | spurring and there is | | | | | | also mild disc space | | | | | | narrowing and | | | | | | endplatespurring at | | | | | | L1-L2. The L2-L3 disc | | | | | | space is maintained. No | | | | | | fracture or | | | | | | focaldestruction is | | | | | | observed. No | | | | | | paravertebral soft | | | | | | tissue abnormality is | | | | | | detected.Surgical clips | | | | | | are seen within the | | | | | | right upper quadrant. | | | | | | IMPRESSION: L3-S1 | | | | | | anterior and posterior | | | | | | spinal fusion in normal | | | | | | alignment with | | | | | | intacthardware and | | | | | | grafts. Mild | | | | | | degenerative disc | | | | | | disease of the lower | | | | | | thoracic spine and at | | | | | | L1-L2. Attending | | | | | | [...] | | | | | | MARA 05/20/2013 | | | | | | 12:17 PM | | | | + + [...] + | Diagnosis | + + | Back pain Backache, unspecified | + + | Lumbar radiculopathy Thoracic or lumbosacral neuritis or radiculitis, unspecified | + + | Lumbar post-laminectomy syndrome Postlaminectomy syndrome, lumbar region | + + documented in this encounter"
--- OUTSIDE RECORDS SUMMARY | ~2019-10-16 | XMS | Encounter Summary ---
Demographics + + + | Address | [address] | | | [place] [address] | + + + | Home Phone | | + + + | Preferred Language | Unknown | + + + | Marital Status | | + + + | Quaker Affiliation | PRE | + + + | Race | White | + + + | Ethnic Group | Not or | + + + Author + + + | Author | [facility] | + + + | Organization | [facility] | + + + | Address | Unknown | + + + | Phone | Unavailable | + + + Support + + + + + | Name | Relationship | Address | Phone | + + + + + | Dustin Terrazas | ECON | [address] | Unavailable | | | | #[place] | | | | | [address] | | + + + + + | Bebe Terrazas | ECON | Unknown | Unavailable | + + + + + | Arden Terrazas | ECON | Unknown | | + + + + + Care Team Providers + +------+ + | Care Linen Supervisor Name | Role | Phone | [...] | +--------+ + + + + | 07/13/ | Telephone | [facility] Primary Care | Yuriy Cardenas, | Medication | | 2019 | | at [place] [address] | PA-C [id number] | management | | | | [address] | [facility] | | | | | [facility] [place], [place] | [place], [place] | | | | | [address] | [address] | | | | | [phone] | [phone] | | | | | | | [...]
--- OUTSIDE RECORDS SUMMARY | ~2019-10-16 | XMS | Encounter Summary ---
Demographics + + + | Address | [address] | | | [place] [address] | + + + | Home Phone | | + + + | Preferred Language | Unknown | + + + | Marital Status | | + + + | Sabianism Affiliation | PRE | + + + [...] #[place] | | | | | [address] | | + + + + + | Bebe Terrazas | ECON | Unknown | Unavailable | + + + + + | Arden Terrazas | ECON | Unknown | | + + + + + Care Team Providers + +------+ + | Care Menagerie Superintendent Name | Role | Phone | + [...] | +--------+ + + + + | 03/18/ | Telephone | [facility] Primary Care | Yuriy Cardenas, | Medication | | 2019 | | at [place] [address] | PA-C [id number] | management | | | | [facility] | [facility] | | | | | [facility] [place], [place] | [place], [place] | | | | | [address] | [address] | | | | | [phone] | [phone] | | | | | | | [...]
--- OUTSIDE RECORDS SUMMARY | ~2019-10-16 | XMS | Encounter Summary ---
Demographics + + + | Address | [address] | | | [place] [address] | + + + | Home Phone [...] + + + | Author | [facility] | + + + | Organization | [facility] | + + + | Address [...] #[place] | | | | | [address] | | + + + + + | Bebe Terrazas | ECON | Unknown | Unavailable | + + + + + | Arden Terrazas | ECON | Unknown | | + + + + + Care Team Providers + +------+ + | Care Chief Arson Division Name | Role | Phone | + +------+ + | Crissy Santoyo PA-C | PCP | | + +------+ + Reason for Referral Consultation (Urgent) +--------+--------+ + + + + | Status | Reason | Specialty | Diagnoses / | Referred By | Referred To | | | | | Procedures | Contact | Contact | +--------+--------+ + + + + | Closed | | Thoracic | Diagnoses | Tolba, | Vic, | | | | Surgery | Primary | Kirk Kay MD | Herberth Christina MD | | | | | lung | [address] | | | | | adenocarcino | [address] | [facility] | | | | | ma, | [place], [place] | Rd | | | | | unspecified | [address] | [place], [place] | | | | | laterality | Phone: | [phone] | | | | | ([facility]) | [phone] | Phone: | | | | | Procedures | Fax: | [phone] | | | | | CONSULT TO | [phone] | Fax: | | | | | SURGERY - | | [phone] | | | | | CARDIOTHORAC | | | | | | | IC | | | +--------+--------+ + + + + Encounter Details +--------+ + + + + | Date | Type | Department | Care Team | Description | +--------+ + + + + | 06/14/ | Surfboard Maker | [facility] | Kirk Sawyer, | Primary lung | | 2018 | | Clinics at S | MD [address] | adenocarcinoma, | | | | [place] [address] | [place], [place] | unspecified | | | | [facility] | [address] | laterality (HCC) | | | | [facility], | [phone] | (Primary Dx) | | | | [address] | | | | | | [place], [place] | | | | | | [address] | | | | | | [phone] | | | +--------+ + + + [...] + | Diagnosis | + + | Primary lung adenocarcinoma, unspecified laterality (HCC) - Primary | + + documented in this encounter"
--- OUTSIDE RECORDS SUMMARY | ~2019-10-16 | XMS | Encounter Summary ---
Demographics + + + | Address | [address] | | | [place] [address] | + + + | Home Phone | | + + + | Preferred Language | Unknown | + + + | Marital Status | | + + + | Religion Affiliation | 1013 | + + + | Race | Unknown | + + + | Ethnic Group | Unknown | + + + Author + + + | Author | [facility] | | | and [place] | + + + | Organization | [facility] | | | and [place] | + + + | Address | Unknown | + + + | Phone | Unavailable | + + + Support + + + + + | Name | Relationship | Address | Phone | + + + + + | Dustin Terrazas | ECON | [place] | | | | | [address] | | + + + + + | Bebe Terrazas | ECON | [address] | | | | [place], [place] | | | | | [address] | | + + + + + Care Team Providers + +------+ + | Care Retail Planner Name | Role | Phone | + +------+ + | Ki Senior NP | PCP | | + +------+ + Reason for Visit + +--------+ + | Reason | Onset | Comments | | | Date | | + +--------+ + | Hospital Follow-up | 02/20/ | | | | 2016 | | + +--------+ + Encounter Details +--------+ + + + + | Date | Type | Department | Care Team | Description | +--------+ + + + + | 02/20/ | Telephone | [facility] | Monica Reno, | Hospital Follow-up | | 2016 | | [facility] | PharmD [address] | | | | [address] | [facility] | | | | [place] [address] | [place] [address] | | | | | [phone] | [phone] | | +--------+ + + + + [...] + + documented as of this encounter Miscellaneous Notes Telephone Encounter - Monica Reno PharmD - 02/20/2017 2:20 PM [facility]Hospital Follow-Up P raisa Call Date discharged: 02/15/17 Primary Diagnosis: STEMI, CHF Spoke with patient's son. Education done/topics reviewed: 1. Health Status- Patient is doing very well. Cutting back on smoking, and family is belgica lambert sure that she is taking medications as directed. 2. Diagnosis education- reviewed pts knowledge of primary diagnosis and provided additional education. 3. Medication Reconciliation - Son states no problems with medications; patient obtained new meds and is taking as dire cted on AVS. - Patient is picking up refill of both insulins tomorrow. 4. Reminded pt of scheduled follow-up appointment. - Son states that patient received message to make appointment with Dr. Grimaldo, and should be calling cardiology office today. 5. Reviewed what do in emergency as well as a non-emergent situation. Verified pt has doct or's contact information. - Left pharmacist phone number with son, in case patient has any questions. Date of follow-up appointment with superintendent local: to be made Electronically signed by: Monica Reno PharmJulienne 02/20/2017 14:29 documented in thi s encounter Plan of Treatment Not on filedocumented as of this encounter Visit Diagnoses Not on filedocumented in this encounter"
--- OUTSIDE RECORDS SUMMARY | ~2019-10-16 | XMS | Encounter Summary ---
Demographics + + + | Address | [address] | | | [place] [address] | + + + | Home Phone | | + + + | Preferred Language | Unknown | + + + | Marital Status | | + + + | Anabaptism Affiliation | 1013 | + + + | Race | Unknown | + + + | Ethnic Group | Unknown | + + + Author + + + | Author | [facility] | | | and [place] | + + + | Organization | [facility] | | | and [place] | + + + | Address | Unknown | + + + | Phone | Unavailable | + + + Support + + + + + | Name | Relationship | Address | Phone | + + + + + | Dustin Terrazas | ECON | [place] | | | | | [address] | | + + + + + | Bebe Terrazas | ECON | [address] | | | | [place], [place] | | | | | [address] | | + + + + + Care Team Providers + +------+ + | Care Fixed Wing Aircraft Flight Engineer Name | Role | Phone | + +------+ + | Ki Senior NP | PCP | | + +------+ + Encounter Details +--------+ + + + + | Date | Type | Department | Care Team | Description | +--------+ + + + + | 03/14/ | Hospital | [facility] | Conversion | Pain | | 2018 | Encounter | CONVERSION [address] | Transaction, | | | | | [address] | Provider Unknown | | | | | [place], [place] | [phone] | | | | | [address] | | | | | | [phone] | | | +--------+ + + + [...] Inhale 1-2 puffs | | 0 | 01/21/ | | | mcg/puff inhaler | into [...] + +--------+ + + + | CT ANGIOGRAM CHEST W | Routin | 03/01/2017 | | Results for this | | CONTRAST | e | 1:16 PM | | procedure are in the | | | | PST | | results section. | + +--------+ + + + documented in this encounter Results CT Angiogram Chest W Contrast (03/01/2017 1:16 PM PST) + + | Specimen | + + | | + + + + + | Narrative | Performed At | + + + | This is a non-reportable procedure without a radiologist report and | | | is used for image storage only | | + + + + + | Procedure Note | + + | Ross Worley - 10/15/2018 11:00 AM PDT This is a non-reportable procedure | | without a radiologist report and isused for image storage only | + + documented in this encounter Visit Diagnoses + + | Diagnosis | + + | Pain Generalized pain | + + documented in this encounter"
--- OUTSIDE RECORDS SUMMARY | ~2019-10-16 | XMS | Encounter Summary ---
Demographics + + + | Address | [address] | | | [place] [address] | + + + | Home Phone | | + + + | Preferred Language | Unknown | + + + | Marital Status | | + + + | Restoration Affiliation | 1013 | + + + | Race | Unknown | + + + | Ethnic Group | Unknown | + + + Author + + + | Author | [facility] | | | and [place] | + + + | Organization | [facility] | | | and [place] | + + + | Address | Unknown | + + + | Phone | Unavailable | + + + Support + + + + + | Name | Relationship | Address | Phone | + + + + + | Dustin Terrazas | ECON | [place] | | | | | [address] | | + + + + + | Bebe Terrazas | ECON | [address] | | | | [place], [place] | | | | | [address] | | + + + + + Care Team Providers + +------+ + | Care Recreational Therapy Technician Name | Role | Phone | + +------+ + | Ki Senior NP | PCP | | + +------+ + Encounter Details +--------+ + + + + | Date | Type | Department | Care Team | Description | +--------+ + + + + | 04/04/ | Hospital | [facility] | Conversion | Malignant neoplasm | | 2018 | Encounter | [facility] | Transaction, | of lower lobe, left | | | | MEDICINE [address] | Provider Unknown | bronchus or lung | | | | [address] | [phone] | (CODE) (HCC); | | | | [place], [place] | | Cavitary lesion of | | | | [address] | | lung | | | | [phone] | | | +--------+ + + + [...] 1-2 tablets by | | 0 | 01/20/20 | | | HYDROcodone-acetamin | mouth Every [...] | + +--------+ + + + | PET CT SKULL BASE TO | Routin | 04/09/2017 | | Results for this | | MID THIGH | e | 4:05 PM | | procedure are in the | | | | PST | | results section. | + +--------+ + + + documented in this encounter Results PET CT Skull Base To Mid Thigh (04/09/2017 4:05 PM PST) + + | Specimen | + + | | + + + + + | Impressions | Performed At | + + + | 1. The cavitary lesion in the medial aspect of the superior | | | segment of the left lower lobe measuring 2.7 cm demonstrates very | | | faint uptake. Unfortunately, this is not specific. Adenocarcinoma or | | | atypical infection could account for this. Alveolar cell malignancy | | | seems unlikely. If there is persistent clinical concern, CT guided | | | biopsy could be performed. 2. 12 mm sclerotic focus in the left | | | posterior T12 vertebral body again noted, without uptake, nonspecific, | | | probably benign. Either progress CT evaluation, or enhanced MRI at | | | this time may help in further evaluation. | | + + + + + + | Narrative | Performed At | + + + | HISTORY: Left lung mass. COMPARISON: CTA chest 03/01/17. Chest | | | x-ray 03/01/17. Chest x-rays 05/03/15, 03/30/15. TECHNIQUE: | | | Serum blood sugar 86 mg/dL. The patient was sedated with 1 | | | milligrams of oral Xanax. Fused PET/CT scans were obtained from the | | | skull Base through the upper thighs at 64 minutes post injection of | | | 11.[address] images are for | | | localization only, and not for diagnostic purposes. FINDINGS: The | | | cavitary nodule in the medial aspect of the superior segment of the | | | left lower lobe sequence 4 image 77 measures 2.7 cm transverse by 2.5 | | | cm AP dimension demonstrates only faint uptake, SUV 2.4. This is | | | bounded by the major fissure anteriorly, and the medial pleura | | | medially. Cavitation measures up to 11 x 11 mm. Minimal strandy | | | change in the medial right lung base sequence 4 image 114 without | | | uptake, of doubtful significance. Subtle atelectasis is also noted in | | | the posterior right lung base. Lung volumes are low. Clips in the | | | gallbladder fossa. Asymmetric density with lobulated calcifications | | | beneath the right nipple. Correlate with mammography. No abnormal | | | uptake. There is a posterior left abdominal wall hernia sequence 4 | | | image 171 measuring 5.5 cm in transverse orientation containing | | | herniated retroperitoneal fat. L3-S1 transpedicular screws with | | | L3-L5 bilateral laminectomies. Bone windows also show no lytic | | | changes. Sclerotic focus in the left lateral T12 vertebral body | | | sequence 4 image 142 measures 11 x 8 mm, similar to prior CTA chest. | | | This appears well-circumscribed, and is probably benign given the lack | | | of uptake. | | + + + + + | Procedure Note | + + | Meir, Rad Conversion - 10/15/2018 11:00 AM PDT HISTORY:Left lung mass. COMPARISON:CTA | | chest 03/01/17. Chest x-ray 03/01/17. Chest x-rays 05/03/15, 03/30/15. TECHNIQUE:Serum | | blood sugar 86 mg/dL. The patient was sedated with 1 milligrams of oral Xanax. Fused | | PET/CT scans were obtained from the skull Base through the upper thighs at 64 minutes | | post injection of 11.[address] images are for | | localization only, and not for diagnostic purposes. FINDINGS:The cavitary nodule in the | | medial aspect of the superior segment of the left lower lobe sequence 4 image 77 | | measures 2.7 cm transverse by 2.5 cm AP dimension demonstrates only faint uptake, SUV | | 2.4. This is bounded by the major fissure anteriorly, and the medial pleura medially. | | Cavitation measures up to 11 x 11 mm. Minimal strandy change in the medial right lung | | base sequence 4 image 114 without uptake, of doubtful significance. Subtle atelectasis | | is also noted in the posterior right lung base. Lung volumes are low. Clips in the | | gallbladder fossa. Asymmetric density with lobulated calcifications beneath the right | | nipple. Correlate with mammography. No abnormal uptake. There is a posterior left | | abdominal wall hernia sequence 4 image 171 measuring 5.5 cm in transverse orientation | | containing herniated retroperitoneal fat. L3-S1 transpedicular screws with L3-L5 | | bilateral laminectomies. Bone windows also show no lytic changes. Sclerotic focus in the | | left lateral T12 vertebral body sequence 4 image 142 measures 11 x 8 mm, similar to | | prior CTA chest. This appears well-circumscribed, and is probably benign given the lack | | of uptake. IMPRESSION: 1. The cavitary lesion in the medial aspect of the superior | | segment of the left lower lobe measuring 2.7 cm demonstrates very faint uptake. | | Unfortunately, this is not specific. Adenocarcinoma or atypical infection could account | | for this. Alveolar cell malignancy seems unlikely. If there is persistent clinical | | concern, CT guided biopsy could be performed.2. 12 mm sclerotic focus in the left | | posterior T12 vertebral body again noted, without uptake, nonspecific, probably benign. | | Either progress CT evaluation, or enhanced MRI at this time may help in further | | evaluation. | |could account for this. Alveolar cell | |malignancy seems unlikely. If there is persistent clinical concern, CT guided biopsy could be performed. | |2. 12 mm sclerotic focus in the left posterior T12 vertebral body again noted, without upt paul, nonspecific, probably benign. Either progress CT evaluation, or enhanced MRI at this ti me may help in further evaluation. | | | | | + + documented in this encounter Visit Diagnoses + + | Diagnosis | + + | Malignant neoplasm of lower lobe, left bronchus or lung (CODE) | + + | Cavitary lesion of lung Other diseases of lung, not elsewhere classified | + + documented in this encounter"
--- OUTSIDE RECORDS SUMMARY | ~2019-10-16 | XMS | Encounter Summary ---
Demographics + + + | Address | [address] [facility] [address] | | | [place] [address] | + + + | Home Phone | | + + + | Preferred Language | Unknown | + + + | Marital Status | | + + + | Episcopalian Affiliation | 1013 | + + + | Race | Unknown | + + + | Ethnic Group | Unknown | + + + Author + + + | Author | [facility] | | | and Juan Joséana | + + + | Organization | [facility] | | | and [place] | + + + | Address | Unknown | + + + | Phone | Unavailable | + + + Support + + + + + | Name | Relationship | Address | Phone | + + + + + | Dustin Terrazas | ECON | [place] | | | | | [address] | | + + + + + | Bebe Terrazas | ECON | [address] | | | | | [facility] [place] | | | | | [address] | | + + + + + Care Team Providers + +------+ + | Care Supervisor Channel Process Name | Role | Phone | + +------+ + PCP | Unavailable | + +------+ + Encounter Details +--------+ + + + + | Date | Type | Department | Care Team | Description | +--------+ + + + + | 03/24/ | Emergency | [facility] | Mario Centeno, | Right low back pain, | | 2016 | | [facility] | MD Luis Xiong | with sciatica | | | | [facility] [place] | [place] [address] | presence unspecified | | | | [address] | [phone] | | | | | [place], [place] | | | | | | [address] | | | | | | [phone] | | | +--------+ + + + [...] + + + | Blood Pressure | 135/83 | 03/24/2015 2:01 AM | | | | | PST | | + + + + + | Pulse | 102 | 03/24/2015 2:01 AM | | | | | PST | | + + + + + | Temperature | 36.5 C (97.7 F) | 03/24/2015 2:01 AM | | | | | PST | | + + + + + | Respiratory Rate | 16 | 03/24/2015 2:01 AM | | | | | PST | | + + + + + | Oxygen Saturation | - | - | | + + + + + | Inhaled Oxygen | - | - | | | Concentration | | | | + + + + + | Weight | 88.6 kg (195 lb 5.3 | 03/24/2015 2:01 AM | | | | oz) | PST | | + + + + + | Height | 167.6 cm (5' 6") | 03/24/2015 2:01 AM | | | | | PST | | + + + + + | Body Mass Index | 31.53 | 03/24/2015 2:01 AM | | | | | PST | | + + + + + documented in this encounter Medications at Time of Discharge + + + +---------+ + + | Medication | Sig | Dispensed | Refills | Start | End Date | | | | | | Date | | + + + +---------+ + + | albuterol 90 | Inhale 1-2 puffs | | 0 | 11/20/20 | | | mcg/puff inhaler | into [...] + + +---------+ + + | E-Z Natasha Lancets | 1 each by | | [...] + + documented as of this encounter ED Notes Conversion Transaction, Provider Unknown - 03/24/2015 12:33 AM PSTFormatting of this note m ight be different from the original. ED Notes by Macrina Cross RN at 03/24/1532 Author: Macrina Cross RN Service: (none) Author Type: Registered Nurse Filed: 03/24/1532 Date of Service: 03/24/1532 Status: Signed [employer]apower Consultant: Macrina Cross RN (Registered Nurse) Report given to ADRIENNE Villalobos; care assumed. Macrina Cross RN 03/24/1532 onver mayank Transaction, Provider Unknown - 03/24/2015 12:10 AM PST ED Notes by Macrina Cross RN at 03/24/159 Author: Macrina Cross RN Service: (none) Author Type: Registered Nurse Filed: 03/24/159 Date of Service: 03/24/159 Status: Signed Datapower Consultant: Macrina Cross RN (Registered Nurse) Patient reports right lower back pain. Patient states that she has full ROM of RLE but jamel t her middle toes are numb. Pt states Apr.11 at [facility] with her neurosurgeon. Macrina Cross RN 03/24/159 iMario middleton MD - 03/24/2015 12:06 AM PST ED Provider Notes by Mario Centeno MD at 03/24/155 Author: Mario Centeno MD Service: Emergency Department Author Type: Physician Filed: 03/24/15 0226 Date of Service: 03/24/155 Status: Signed Datapower Consultant: Mario Centeno MD (Physician) [facility] Department of Emergency Medicine 12:09 AM 03/24/2015 HPI History of Present Illness Patient Identification Nancy Terrazas is a 44 y.o. female. Patient information was obtained from patient. History/Exam limitations: none. Patient presented to the Emergency Department by: Car Chief Complaint Chief Complaint Patient presents with Back Pain Patient reports right lower back pain. Patient states that she has full ROM of RLE but t hat her middle toes are numb. Pt states Apr.11 at [facility] with her neurosurgeon. The patient complains of back pain. Onset of symptoms was 2 days ago, with a constant cours e since that time. The symptoms are described to be of mild severity. The patient describes the quality and location of the symptoms as the following: lower back going into the right h ip. The patient also complains of numbness in middle toe on the right, and popping in mid ba ck. The patient denies urinary problems or any other sx at this time. Care prior to arrival consisted of 600 mg Motrin, with minimal relief. Pt has had three surgeries on her lumbar sp ine she has 6 rods and 8 screws in it. Her last surgery was a few years ago. She has been li fting and bending to move and thinks she over exacerbated her back pain. She has an appointm ent with her neurosurgeon at [facility] on April 11. PCP: PER PT NONE Past Medical History Diagnosis Date Hyperlipidemia Hypertension Old myocardial infarction Asthma Chronic back pain Past Surgical History Procedure Laterality Date Cholecystectomy Tubal ligation Breast surgery Spine surgery Lithotripsy Coronary stent placement Sinus surgery Prior to Admission medications Medication Sig Start Date End Date Taking? Authorizing Provider albuterol (PROVENTIL HFA;VENTOLIN HFA) 108 (90 BASE) MCG/ACT inhaler Inhale 2 puffs into th e lungs every 4 (four) hours as needed for Wheezing. Historical Provider aspirin 81 MG tablet Take 81 mg by mouth daily. Historical Provider atorvastatin (LIPITOR) 80 MG tablet Take 80 mg by mouth nightly. Historical Provider clopidogrel (PLAVIX) 75 MG tablet Take 75 mg by mouth daily. Indications: Treatment to Prev ent a Blood Clot in a Vascular Stent Historical Provider losartan (COZAAR) 25 MG tablet Take 25 mg by mouth daily. Indications: High Blood Pressure Historical Provider metoprolol (TOPROL-XL) 25 MG 24 hr tablet Take 25 mg by mouth daily. Historical Provider Allergies Allergen Reactions Sulfa Antibiotics Rash Codeine Nausea and Vomiting History Social History Marital Status: Spouse Name: N/A Number of Children: N/A Years of Education: N/A Occupational History Not on file. Social History Main Topics Smoking status: Current Every Day Smoker -- 1.00 packs/day Smokeless tobacco: Never Used Alcohol Use: Not on file Drug Use: Yes Special: Marijuana Comment: occasional Sexual Activity: Partners: Male Control/ Protection: Surgical-Self Other Topics Concern Not on file Social History Narrative No family history on file. ROS Review of Systems Constitutional: Negative for: fever, chills, or weight loss HEENT: Negative for: head trauma, ear pain, sore throat, acute visual disturbance Cardiovascular/Respiratory: Negative for: chest pain, syncope, shortness of breath, cough Gastrointestinal: Negative for: abdominal pain, nausea, vomiting, diarrhea, black or blo mackenzie stools Genitourinary: Negative for: dysuria or urinary problems Musculoskeletal: Positive for: lower back pain, popping in mid back, numbness in right mid dle toe Skin: Negative for: rash or lesions Neuro : Negative for: Headache, Focal muscle weakness, seizure or acute neurol ogical problems Physical Exam Physical Exam BP 163/93 mmHg | Pulse 107 | Temp(Src) 97.7 F (36.5 C) (Oral) | Resp 16 | Ht 1.676 m (5 ' 6") | Wt 88.6 kg (195 lb 5.2 oz) | BMI 31.54 kg/m2 | SpO2 98% Vitals interpreted: hypertensive, tachycardic otherwise normal Pulse Oximetry interpretation: Normal General: Alert, in no apparent distress Eyes: Normal inspection, pupils equal and round, non-icteric CVS: Rate and rhythm normal No murmurs, rubs or gallops Respiratory: Breath sounds normal bilaterally, no wheezing or crakles Abdomen: Soft, non-tender, non-distended No guarding or rebound Back: Vertical well healed surgical scar on lower lumbar area Lower lumbar to upper sacral area tenderness on right side, right paraspinal tenderness, no CVA tenderness, straight leg raise is negative Skin: Warm and dry No rash Neuro: No gross motosensory Deficit ED Course Medical Decision Making and Emergency Department Course ED Department Course 12:09 AM. Patient presents with low back pain, numbness in right middle toe and mid back po pping. On exam patient has vertical well healed surgical scar on lower lumbar area, lower radha mbar to upper sacral area tenderness on right side, right paraspinal tenderness, no CVA tend erness and straight leg raise is negative . My DDx include sprain, strain, contusion, fractu re vs other. Will order Xray and reevaluate. Patient denies any kidney disease, I will give Toradol. 1:08 AM Xray reviewed: no acute fracture or dislocation. The hardware of her lumbar spine a ppears intact post operatively. 1:16 AM Nurse reports patient is feeling better at this time. The patient was clinically stable a time of discharge. No acute life or limb threatening c ondition was found during this visit. Management plan such as labs/imaging/medications/ and outpatient follow up were discussed with patient/family. Pt was given strict ED precaut ions to return if symptoms worsen or fail to improve. Filed Vitals: 03/24/15 0012 03/24/15 0110 BP: 163/93 135/83 Pulse: 107 102 Temp: 97.7 F (36.5 C) TempSrc: Oral Resp: 16 16 Height: 1.676 m (5' 6") Weight: 88.6 kg (195 lb 5.2 oz) SpO2: 98% 96% Medications ketorolac (TORADOL) injection 30 mg (30 mg Intramuscular Given 03/24/15 0025) LORazepam (ATIVAN) injection 1 mg (1 mg Intramuscular Given 03/24/15 0024) oxyCODONE-acetaminophen (PERCOCET) 5-325 MG per tablet 1 tablet (1 tablet Oral Given 6 0158) Records Reviewed Nursing notes. Labs & Radiology Results Laboratory Evaluation Results None Radiology and EKG Evaluation Imaging Results XR Lumbar Spine 3 View (Final result) Result time: 03/24/15 02:20:37 Preliminary result by Rad Results In Meir (03/24/15 02:20:37) Impression: 1. No acute fracture or dislocation seen. 2. Postoperative changes from L3 to S1. [facility] Read by Eric Cochran MD on Mar 24 2015 2:20AM Final result by Rad Results In Meir (03/24/15 02:20:32) Impression: 1. No acute fracture or dislocation seen. 2. Postoperative changes from L3 to S1. [facility] Electronically signed by Eric Cochran MD on Mar 24 2015 2:20AM Referring Provider Line: [phone] ID: [id number] Narrative: EXAM: LUMBOSACRAL SPINE RADIOGRAPHY EXAM DATE: 03/24/2015 12:25 AM. CLINICAL HISTORY: Back pain. COMPARISONS: None. TECHNIQUE: 2 views. FINDINGS: Alignment: Minimal levoconvex lumbar curvature. Bones: Five kyu-jet-hjakgig lumbar vertebral bodies are present. No fractures or bone lesio ns. Laminectomy and posterior metallic fusion from L3 to S1. Disks: Degenerative disk disease in the lower thoracic spine. Minimal degenerative disk dis ease at L1-L2 and L2-L3. Postoperative changes with disk spacers from L3-S1. Facets: Posterior fusion. Sacroiliac Joints: Unremarkable. Soft Tissues: Moderate to large amount of stool in the colon. Prior cholecystectomy. Diagnosis & Disposition ED Diagnosis Final diagnosis Right low back pain, with sciatica presence unspecified Disposition: ED Disposition Orders Discharge Condition at discharge: Stable Follow-up Information Follow up With Details Comments Contact Info [facility] Emergency Department in [place] If symptoms worsen [address] [facility] [phone] your neurosurgeon appointment next month Discharge Medications: Discharge Medication List as of 03/24/2015 1:57 AM START taking these medications Details cyclobenzaprine (FLEXERIL) 10 MG tablet Take 1 tablet by mouth 2 (two) times daily as neede d for Muscle spasms., Starting 03/24/2015, Until 04/03/15, Print naproxen (NAPROSYN) 500 MG tablet Take 1 tablet by mouth 2 (two) times daily with meals. Fo r pain, Starting 03/24/2015, Until Sat03/23/16, Print Procedures Additional Documentation Procedures Attending Note: Documentation assistance provided by Yohana Monzon (Scribe). Information recorded by the scribe has been reviewed and validated by me. Kelli katz with its contents. MD Mario Tabares MD 03/24/15 0226 documented in this encounter Plan of Treatment Not on filedocumented as of this encounter Procedures + +--------+ + + + | Procedure Name | Priori | Date/Time | Associated Diagnosis | Comments | | | ty | | | | + +--------+ + + + | XR LUMBAR SPINE 2 OR | Routin | 03/24/2015 | | Results for this | | 3 VW | e | 12:37 AM | | procedure are in the | | | | PST | | results section. | + +--------+ + + + documented in this encounter Results XR Lumbar Spine 2 or 3 Vw (03/24/2015 12:37 AM PST) + + | Specimen | + + | | + + + + + | Impressions | Performed At | + + + | 1. No acute fracture or dislocation seen. 2. Postoperative | | | changes from L3 to S1. [facility] Electronically signed by Eric | | | MD Sammie on Mar 24 2015 2:20AM Referring Provider Line: | | | [phone] ID: [id number] | | + + + + + + | Narrative | Performed At | + + + | EXAM: LUMBOSACRAL SPINE RADIOGRAPHY EXAM DATE: 03/24/2015 12:25 | | | AM. CLINICAL HISTORY: Back pain. COMPARISONS: None. | | | TECHNIQUE: 2 views. FINDINGS: Alignment: Minimal levoconvex | | | lumbar curvature. Bones: Five wiy-ufb-eepfela lumbar vertebral | | | bodies are present. No fractures or bone lesions. Laminectomy and | | | posterior metallic fusion from L3 to S1. Disks: Degenerative disk | | | disease in the lower thoracic spine. Minimal degenerative disk disease | | | at L1-L2 and L2-L3. Postoperative changes with disk spacers from | | | L3-S1. Facets: Posterior fusion. Sacroiliac Joints: | | | Unremarkable. Soft Tissues: Moderate to large amount of stool in | | | the colon. Prior cholecystectomy. | | + + + + + | Procedure Note | + + | Ross Worley - 10/16/2018 3:35 PM PDT EXAM:LUMBOSACRAL SPINE RADIOGRAPHY EXAM | | DATE: 03/24/2015 12:25 AM. CLINICAL HISTORY: Back pain. COMPARISONS: None. TECHNIQUE: 2 | | views. FINDINGS:Alignment: Minimal levoconvex lumbar curvature. Bones: Five | | qmt-llq-fyqschh lumbar vertebral bodies are present. No fractures or bone lesions. | | Laminectomy and posterior metallic fusion from L3 to S1. Disks: Degenerative disk | | disease in the lower thoracic spine. Minimal degenerative disk disease at L1-L2 and | | L2-L3. Postoperative changes with disk spacers from L3-S1. Facets: Posterior fusion. | | Sacroiliac Joints: Unremarkable. Soft Tissues: Moderate to large amount of stool in the | | colon. Prior cholecystectomy. IMPRESSION: 1. No acute fracture or dislocation seen.2. | | Postoperative changes from L3 to S1. RADIA Electronically signed by Eric Cochran MD on | | Mar 24 2015 2:20AM Referring Provider Line: [phone] ID: [id number] | |FINDINGS: | |Alignment: Minimal levoconvex lumbar curvature. | | | |Bones: Five efu-znb-eienctr lumbar vertebral bodies are present. No fractures or bone lesio ns. Laminectomy and posterior metallic fusion from L3 to S1. | | | |Disks: Degenerative disk disease in the lower thoracic spine. Minimal degenerative disk dis ease at L1-L2 and L2-L3. Postoperative changes with disk spacers from L3-S1. | | | |Facets: Posterior fusion. | | | |Sacroiliac Joints: Unremarkable. | | | |Soft Tissues: Moderate to large amount of stool in the colon. Prior cholecystectomy. | | | |IMPRESSION: | | | |1. No acute fracture or dislocation seen. | |2. Postoperative changes from L3 to S1. | | | |[facility] | | | | Electronically signed by Eric Cochran MD on Mar 24 2015 2:20AM Referring Provider Line: [phone] ID: [id number] | + + documented in this encounter Visit Diagnoses + + | Diagnosis | + + | Right low back pain, with sciatica presence unspecified | + + documented in this encounter
--- OUTSIDE RECORDS SUMMARY | ~2019-10-16 | XMS | Encounter Summary ---
Demographics + + + | Address | [address] | | | [place] [address] | + + + | Home Phone | | + + + | Preferred Language | Unknown | + + + | Marital Status | | + + + | [employer] Affiliation | PRE | + + + [...] [id number] [place] | | | | | [id number] | | + + + + + | Bebe Terrazas | ECON | Unknown | Unavailable | + + + + + | Arden Terrazas | ECON | Unknown | | + + + + + Care Team Providers + +------+ + | Care Microscopist Name | Role | Phone | + +------+ + | Zora Haddad DO | PCP | | + +------+ + Reason for Visit + + + | Reason | Comments | + + + | Pre-operative | | | evaluation | | + + + AUTH/CERT +--------+--------+ + + + + | [...] Description | +--------+---------+ + + + | 12/22/ | Office | Preoperative | Xavi Cadena | Thoracic or | | 2012 | Visit | Medicine Clinic at | T, FRONT DESK RECEPTIONIST-C,MPH | lumbosacral neuritis | | | | [facility] Day | | or radiculitis, | | | | Stay [address] | | unspecified (Primary | | | | [address] | | Dx); Preop | | | | Mailcode: [id number] | | examination; Spinal | | | | [address] | | stenosis, lumbar | | | | [address], [place] | | region, without | | | | [address] | | neurogenic | | | | [phone] | | claudication; | | | | | | Diabetes mellitus | | | | | | screening; Other | | | | | | specified | | | | | | pre-operative | | | | | | examination | +--------+---------+ + + + Anesthesia Record + + + + + | Procedure Name | Responsible | Anesthesia Start | Anesthesia Stop Time | | | Anesthesiologist | Time | | + + + + + | EXTREME LATERAL | Trev Aguillon, | 12/23/12 1032 | 12/23/12 1815 | | INTERBODY FUSION | PhD NAYELY | | | | L3-4 L3-4 | | | | | LAMINECTOMY (N/A | | | | | Back) | | | | + + + + + +----+---+ + + | Da | T | Event | Comment | | te | i | | | | | m | | | | | e | | | +----+---+ + + | 10 | 0 | Eq Check | Anesthesia machine checked Equipment verified | | /2 | 6 | | | | 2/ | 3 | | | | 20 | 8 | | | | 13 | | | | +----+---+ + + | | 1 | Pt. Check | Prior to anesthesia start, pt. Identified, examined, chart | | | 0 | | reviewed, PARQ held, anesthetic plan made or approved by | | | 3 | | attending anesthesiologist. NPO status confirmed as appropriate | | | 2 | | for procedure Preoperative evaluation: unchanged | +----+---+ + + | | 1 | An Start | | | | 0 | | | | | 3 | | | | | 2 | | | +----+---+ + + | | 1 | An Start | | | | 0 | Data | | | | 3 | | | | | 2 | | | +----+---+ + + | | 1 | Vitals | Monitors applied Vital signs checked Patient ready for anesthesia | | | 0 | Checked | | | | 3 | | | | | 4 | | | +----+---+ + + | | 1 | Std. Airway | | | | 0 | Mgt. | | | | 4 | | | | | 0 | | | +----+---+ + + | | 1 | Ready | | | | 1 | | | | | 0 | | | | | 0 | | | +----+---+ + + | | 1 | Abx | | | | 1 | Administere | | | | 2 | d | | | | 6 | | | +----+---+ + + | | 1 | Quick Note | Switched position to R latAsif Decubitus | | | 1 | | | | | 4 | | | | | 4 | | | +----+---+ + + | | 1 | Local | | | | 2 | Anesthetic | | | | 0 | by Surgeon | | | | 3 | | | +----+---+ + + | | 1 | Incision | | | | 2 | | | | | 0 | | | | | 9 | | | +----+---+ + + | | 1 | Quick Note | Flipped prone. ECG and BP cuff temporarily off for positioning. | | | 4 | | | | | 4 | | | | | 4 | | | +----+---+ + + | | 1 | Quick Note | Second incision | | | 5 | | | | | 1 | | | | | 3 | | | +----+---+ + + | | 1 | Medication | Fentanyl 50 Hydromorphone 0.5 | | | 5 | Handoff | | | | 4 | | | | | 5 | | | +----+---+ + + | | 1 | Medication | Fentanyl 300 mcg Hydromorphone 2mg To kopacek ice seller | | | 7 | Handoff | | | | 1 | | | | | 1 | | | +----+---+ + + | | 1 | Surgery end | | | | 7 | | | | | 5 | | | | | 7 | | | +----+---+ + + | | 1 | An Extubate | Neuromuscular function Intact. Pharynx suctioned. Patient obeys | | | 8 | | commands. Adequate pulmonary mechanics. | | | 0 | | | | | 5 | | | +----+---+ + + | | 1 | an stop | | | | 8 | data | | | | 0 | | | | | 7 | | | +----+---+ + + | | 1 | Anesthesia | | | | 8 | End | | | | 1 | | | | | 5 | | | +----+---+ + + +------+ | Meds | +------+ + + + No medications | on file. | + + + + + | No agents on file. | + + + + | No blood administrations on file. | + + +--------+ + + + | Type | Details | Placement | Removal | +--------+ + + + | RETIRE | 12/23/12; 12/24/12; (before | 12/23/12 0000 by | 12/24/12 0000 by Sea | | D - | 1900); Medium; Hemovac; Lower; | Madeleine Alvarenga RN | O ADRIENNE Jones | | Drains | Back | | | | | | | | | (wound | | | | | s/surg | | | | | ical) | | | | +--------+ + + + | RETIRE | 12/23/12; back; 12/26/12; 151 | 12/23/12 0000 by | 12/26/12 1515 by Saul | | D - | | More Calzada, | Crystal Fernandez RN | | Incisi | | RN | | | on | | | | +--------+ + + + | RETIRE | 12/23/12; 0844; 12/26/12; 1515; | 12/23/12 0844 by | 12/26/12 151 by Saul | | D - | 18; Right; Wrist; Positive | Rosy Santana RN | Crystal Fernandez RN | | Periph | | | | | eral | | | | | Line | | | | +--------+ + + + | RETIRE | 12/25/12; (removed on NOC, per | 12/23/12 1114 by | 12/25/12 0000 by Saul | | D - | pt); No; 18; Left; Hand; Therapy | | Crystal Fernandez RN | | Periph | completed | | | | eral | | | | | Line | | | | +--------+ + + + | RETIRE | 12/23/12; 1145; 12/24/12; 0615; | 12/23/12 1145 by | 12/24/12 0615 by | | D - | No; Bonnie; 16FR | Sangeetha Bryson RN | Chasity Clemons RN | | Devon | | | | | y Cath | | | | | | | | | | Placem | | | | | ent | | | | | (Rosa M | | | | | & Cath | | | | | Care | | | | | Daily | | | | | and Q | | | | | BM) | | | | +--------+ + + + documented in this encounter Social History + + + +--------+ + [...] + + + | Blood Pressure | 142/90 | 12/22/2012 4:32 PM | | | | | PDT | | + + + + + | Pulse | 107 | 12/22/2012 4:32 PM | | | | | PDT | | + + + + + | Temperature | 36.8 C (98.2 F) | 12/22/2012 4:32 PM | | | | | PDT | | + + + + + | Respiratory Rate | 18 | 12/22/2012 4:32 PM | | | | | PDT | | + + + + + | Oxygen Saturation | 96% | 12/22/2012 4:32 PM | | | | | PDT | | + + + + + | Inhaled Oxygen | - | - | | | Concentration | | | | + + + + + | Weight | 103 kg (227 lb) | 12/22/2012 4:32 PM | | | | | PDT | | + + + + + | Height | 167.6 cm (5' 6") | 12/22/2012 4:32 PM | neck 40cm | | | | PDT | | + + + + + | Body Mass Index | 36.64 | 12/22/2012 4:32 PM | | | | | PDT | | + + + + + documented in this encounter Patient Instructions Patient Instructions Xavi Cadena, JUANCHO,MPH - 12/22/2012 5:19 PM PDT PREOPERATIVE INSTRUCTIONS Empty stomach before surgery On the day BEFORE your surgery, drink plenty of fluids and stay well hydrated NOTHING to eat or drink after midnight the night before surgery, or 8 hours prior to hill rgery. This includes water, coffee, candy, mints, gum. Medications Instructions ALBUTEROL INHL, Inhale as needed.Use as needed- as prescribed the morning of surgery. Do NOT take the following medications on the morning of surgery: Other medications not specifically mentioned are at your discretion as to taking or not taking on the morning of surgery. FLUoxetine - May take as prescribed tonight. gabapentin - May take as prescribed tonight. ibuprofen HOLD 7 days before and day of surgery Losartan- May take as prescribed tonight. metFORMIN Unless otherwise directed by your surgeon, do not take any Aspirin, vitamin E or non-zack roidal anti-inflammatory (NSAIDs i.e. Advil, Aleve, Ibuprofen) or herbal supplements 7-14 da ys prior to your surgery. These drugs may interfere with normal blood clotting and may cause excessive bleeding and bruising during or after the surgery. If you are taking Coumadin (warfarin), Plavix or any other blood thinners please let you r surgical team know as medication changes may be necessary. If you need a pain medication for general purposes, use Tylenol as directed. OK to take it even on the morning of surgery, if needed. If you are in doubt about any medications that you are taking, please contact our office . Skin preparation to help avoid surgical site infections SHY GUIDE TO GENERAL SKIN CLEANSING AT HOME BEFORE SURGERY Before you bathe or shower: Read the instructions given to you by your healthcare practitioner, and begin your genera l skin cleansing protocol as directed. Carefully read all directions on the product label. Hibiclens is not to be used on the head or face, keep out of the eyes, ears and mouth. Hibiclens is not to be used in the genital area. Hibiclens should not be used if you are allergic to chlorhexidine gluconate or any other ingredients in this preparation. *See Hibiclens label for full product information and precautions. When you bathe or shower the night before your surgery: If you plan to wash your hair, do so with your regular shampoo. Then rinse hair and body thoroughly to remove any shampoo residue. Wash your face with your regular soap or water only. Thoroughly rinse your body with warm water from neck down. Use Hibiclens as you would any other liquid soap. Please do not put the Hibiclens on a wa sh cloth, apply directly to the skin and wash gently. Apply the minimum amount of Hibiclens necessary to cover the skin. Leave the Hibiclens on your skin for 1 minute, then rinse off. Rinse thoroughly with warm water. Do not use your regular soap after applying and rinsing Hibiclens. When using Hibiclens for a second day in a row (morning of surgery, as soon as you wake up) : Shower/bathe again using Hibiclens in the same method as described above. Do not apply any lotions, deodorants, powders or perfumes to the body areas that have been cleaned with Hibiclens. Other Important Guidelines Do not shave the surgical area Do not smoke, drink alcohol or use recreational drugs for 24 hours before your surgery Watch for any change in your health condition. Let your surgeon know right away if you do not feel well. Do not wear makeup, perfume, lotions, deodorant, powder or hairspray. Do not wear any jewelry to the hospital. Wear loose, comfortable clothing. Leave all your valuables at home. Allow enough travel time so you re not late for your check in for surgery. Take a bath or shower and remember to shampoo your hair using your usual hair product bef ore your arrival at the hospital. Please remember to brush your teeth the night before and the morning of your procedure. Preventing post op complications while you are in the hospital Use an incentive spirometer or peep breathe to keep your lungs working properly an d to help prevent respiratory complications. It helps you take long, deep breaths. Use it at least once every hour while you are awake. Leg and feet exercises will maintain good circulation and help prevent blood clots in yo ur legs. Sometimes your doctor will order air compression stockings. Compressed air helps the circulation in your legs. Walking and moving will help stimulate normal circulation and deep breathing. After you r surgery, your nurse may ask you to sit, stand or walk. Surgery Check in Locations Admitting [facility], ninth floor the [facility] Surgery Check in Time: The Preoperative Medicine Clinic is not in the position to give you accurate information regarding surgical check in time. We refer you back to your surgical office regarding this important information. Going Home Your surgical team will decide when you are medically ready to go home. If you are released to go home on the same day as your procedure/surgery please note the following: You will not be able to drive. You will be required to have a competent person drive you or accompany you by taxi or pu blic transportation on the day of discharge. It is also required that you have a competent person assist you and look after you on th e first night after you have undergone regional blocks (72 hours for patients going home wit h regional block pump), deep sedation, and/or general anesthesia. If you stayed in the hospital after surgery, please arrange for your ride to come for yo u around 9AM on the day your doctor says you can go home. Check out time is 11AM. If you have questions or concerns after you go home, call your doctor s office. If it is after office hours, call the [facility] inserting press operator at [phone] and ask them to page him or h er. Preparing For Your Surgery Video -- 7 minutes of instructions! Access the [facility] website [email or web address] --> POPULAR RESOURCES --> Patient Guide --> Preparing for your Visit or Surgery --> "Preparing for Your Surgery" video link documented in this encounter Progress Notes Xavi Cadena FNP-C,MPH - 12/22/2012 6:27 PM PDTFormatting of this note might be d ifferent from the original. PREOPERATIVE CONSULT NOTE Consulting Provider: JUANCHO BAER,MPH Referring Physician: Sivakumar Tanner MD Primary Care Provider: Zora Haddad DO Reason for Consult: Preoperative evaluation and risk assessment Proposed Procedure/Date: EXTREME LATERAL INTERBODY FUSION L3-4 L3-4 LAMINECTOMY AND L3-S1 R BENITO POSTERIOR INSTRUMENTED FUSION, 12/23/2012 HISTORY OF PRESENT ILLNESS: Nancy Terrazas is a 42 y.o. female here for preoperative e valuation for above procedure. She had an accident at age 14 and fell off of her horse. Since that time she has had back p ain. She says that she broke her tailbone and herniated a couple of discs. She has had two b ack surgeries (07/2012, 03/2010). She has continued to have worsening back pain. The patie nt worsens with activity and movement and it is better with rest. She has no hx nor symptoms of CAD, CHF, CVA, CKD or DM (treated with insulin). Functional capacity is Intermediate. PMHx: asthma, tachycardia, increased HR with previous surgery, hypertension, diabetes melli tus type 2, PONV, former smoker. ROS: Current Medication List Name Sig ALBUTEROL INHL Inhale as needed. FLUOXETINE 20 MG CAPSULE Take 20 mg by mouth once daily at bedtime. GABAPENTIN 300 MG CAPSULE Take 300 mg by mouth once daily at bedtime. IBUPROFEN 800 MG TABLET Take 800 mg by mouth three times daily. Indications: Pain LOSARTAN 25 MG TABLET Take 25 mg by mouth once daily at bedtime. Indications: HYPERTENSION METFORMIN 500 MG TABLET Take 500 mg by mouth two times daily. Allergies Allergen Reactions Codeine Vomiting Morphine Vomiting Sulfur Nausea Past Medical History Diagnosis Date Obesity Lumbar radiculopathy Low back pain HTN (hypertension) Hyperlipidemia, mixed Type 2 diabetes mellitus Depressive disorder Migraine Asthma Thoracic or lumbosacral neuritis or radiculitis, unspecified Spinal stenosis, lumbar region, without neurogenic claudication Tachycardia PONV (postoperative nausea and vomiting) per patient she has had bad problems with vomiting after surgery. Past Surgical History Procedure Date Lumbar fusion 03/2010 Endometrial ablation 2001 Breast reduction surgery Sinus surgery Cholecystectomy Lithotripsy Tubaligation Family History Problem Relation Hypertension Mother Asthma Mother Arthritis Mother Depression Mother Asthma Sister Depression Sister Asthma Grandmother Arthritis Grandmother Depression Grandmother Heart Disease Grandmother History Substance Use Topics Smoking status: Former Smoker -- 0.50 packs/day for 20 years Types: Cigarettes Quit date: 08/19/2012 Smokeless tobacco: Never Used Alcohol Use: Not on file PHYSICAL EXAM: Last Vitals: BP 142/90 | Pulse 107 | Temp (Src) 36.8 C (98.2 F) (Oral) | RR 18 | Ht 1.6 76 m (5' 6") | Wt 102.967 kg (227 lb) | SpO2 96% | BMI 36.66 kg/(m^2) Body mass index is 36. 66 kg/(m^2). [facility] ROS Last edited 12/22/122040 by JUANCHO Palencia,MPH ROS Pertinent HPI: Pulmonary: Quit smoking end of August 2012 (~ 1/2 ppd x ~ 20 years). Asthma- very infrequent, triggers are allergens and infections. Last exacerbation is unknown. Within Defined Limits except as noted below Pt. Has asthma Classification:allergic asthma Frequency: very infrequent ER Visits: > 6 months Hospital Visits: none Cardiovascular: She is active walking an average of a total of about 1 mile per day most days per week. She can walk up and down two flights of stairs. Activity is limited by back pain. She denies palpitations, chest pain, chest pressure, chest discomfort, dizziness, shortness of breath, lower extremity swelling, presyncope or syncope at rest or with activity. Tachycardia- patient reports increased anxiety related to surgery tomorrow and she had a long walk on the way here. Hypertension- moderately controlled on medicine. Per patient she had an increased heart rate with her previous surgery in March 2010. She says that the EKG was repeated and fine. She saw a distribution agent reportedly and was found to be fine ([facility], [place], [place]). She says that she checked out fine. No other heart testing was done. Within Defined Limits except as noted below Functional Capacity: Moderate GI/Hepatic: Within Defined Limits except as noted below : Within Defined Limits except as noted below Endo: Diabetes mellitus type 2- per patient blood sugars are averaging 115. She recently started taking Metformin. She notes that after last back surgery (July 2012) she was on insulin for a couple of days. Within Defined Limits except as noted below Diabetes: type 2, 151-200 Neurological: Within Defined limits except as noted below Sign/Sx migraine headaches pain (Pain is a 7 or an 8 to the back (lower right side). ) In chronic pain: Yes Current Pain Level: Current pain level: 7 MS: She had an accident at age 14 and fell off of her horse. Since that time she has had back pain. She says that she broke her tailbone and herniated a couple of discs. She has had two back surgeries (07/2012, 03/2010). She has continued to have worsening back pain. The patient worsens with activity and movement and it is better with rest. 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 ) Heme/Onc: Patient reports chronically elevated (white) blood cell count. Within Defined Limits except as noted below Skin: Within Defined Limits except as noted below Physical Exam General: Patients general appearance: Healthy, Alert, No distress and Cooperative Head & Neck/Airway: Neck Circumference: 40 cm. Date of last Dental Exam: A year ago. Dentition Comments: +fillings Mallampati: II Mouth Opening: > = 3 cm C-Spine: limited extension Neck Anatomy: Thick, obese Jaw Protrusion: Normal, lower incisors can protrude past upper incisors Lung Exam: breath sounds normal Cardiac: Increased HR. Rhythm: regular Rate: abnormal Abdominal: General Findings: Deferred Musculoskeletal: Neuro/Psych: alert Findings: Alert, oriented to person, place, time and Normal affect Integument: Implants: Comments: Implants: 6 screws and 3 rods. PONV- per patient she has had bad problems with vomiting after surgery. LAB DATA REVIEWED/ORDERED Lab Results Component Value Date WBC 11.44 12/22/2012 HB 14.3 12/22/2012 HCT 41.6 12/22/2012 PLT 277 12/22/2012 MCV 86.7 12/22/2012 Lab Results Component Value Date NA 139 12/22/2012 K 4.1 12/22/2012 CL 107 12/22/2012 BICARB 22 12/22/2012 BUN 10 12/22/2012 CR 0.53 12/22/2012 GLU 209 12/22/2012 CA 9.0 12/22/2012 AST 21 12/22/2012 ALT 30 12/22/2012 AP 125 12/22/2012 TBILI 0.2 12/22/2012 TP 7.9 12/22/2012 ALB 3.3 12/22/2012 Lab Results Component Value Date INRPT 0.87* 12/22/2012 Lab Results Component Value Date APTT 23.0* 12/22/2012 EKG: Personally reviewed, machine reads sinus tachycardia (HR 104), possible left atrial en largement. MEDICAL DECISION MAKIN ACC/ AHA Perioperative Guidelines 1. Need for emergency noncardiac surgery? b. No -> Proceed to next step. 2. Active Cardiac Conditions? These conditions mandate further investigation and manageme nt. A. Acute MD within 7 days: no B. Unstable angina/Recent MD (7- 30 days): no C. Decompensated CHF: no D. Significant arrhythmia: Unknown, machine reads sinus tachycardia E. Severe valvular disease: NONE 3. Low risk surgery? b. No -> proceed with next step. 4. Good functional capacity? MET ASSESSMENT: 5. METS--walking briskly, washing the car. 5. Assess Clinical Risk Factors? A. Ischemic heart disease: no B. Compensated / prior heart failure: no C. Diabetes mellitus (treated with insulin): no D. Renal insufficiency (Cr > 2): no E. Cerebrovascular disease: no Rate of cardiac , non fatal MD, non fatal cardiac arrest (RCRI) 0 risk factors - 0.4% 1 risk factors - 1%, 2 risk factors - 7%, Risk Factor Recommendations: Up to 1-2 risk factors- proceed with planned surgery with HR c ontrol or consider noninvasive testing if it will international exchange coordinator Surgery Risk: Unavailable Patient-related risk: Estimated ASA class 2- 3 ASSESSMENT and RECOMMENDATIONS: Surgical/anesthesia risk assessment: Nancy Terrazas is a 42 y.o. female with diagnosis of thoracic or lumbosacral neuritis or radiculitis, unspecified and spinal stenosis, lumbar region, without neurogenic claudication, scheduled for EXTREME LATERAL INTERBODY FUSION L3- 4 L3-4 LAMINECTOMY AND L3-S1 REDO POSTERIOR INSTRUMENTED FUSION. According to ACC/AHA, this patient has 0 clinical risk factors and the recommendation is to proceed with planned surger y with HR control without additional cardiac testing when the patient has been deemed to be okay to proceed per the anesthesia team. Medication management recommendations: The patient was advised to continue all usual med ications except as noted in Patient Instructions (After Visit Summary given to pt) Perioperative antibiotic prophylaxis: Standard (Consider IV Vanco one hr before procedu re in pts with Cephalosporin/PCN allergy and/or with hx of MRSA) Asthma- very infrequent, triggers are allergens and infections. Last exacerbation is unk nown. Tachycardia- patient reports increased anxiety related to surgery tomorrow and she had a long walk on the way here. Per patient she had an increased heart rate with her previous surgery in March 2010. S he says that the EKG was repeated and fine. She saw a distribution agent reportedly and was found to be fine ([facility], [place], [place]). She says that she checked out fine. No other h eart testing was done. Hypertension- moderately controlled on medicine. Diabetes mellitus type 2- per patient blood sugars are averaging 115. She recently start ed taking Metformin. PONV- per patient she has had bad problems with vomiting after surgery Quit smoking end of August 2012 (~ 1/2 ppd x ~ 20 years). Patient noted she quit smoking in August- smelled somewhat of smoke in clinic. Patient reports chronically elevated (white) blood cell count. Noted it was 11.44K/cu mm on 12/22/12. I paged Per Pal ADLER and Hollie Small MD to notify of tachycardia. I spoke with Julienne Small and advised of tachycardia, patient's lack of symptoms and hx of tachycardia in [facility]2010 with back surgery. Dr. Small noted that they will evaluate the patient in the mo rning and to have her still come to surgery. I spoke with Dr. Tanner- advised of patient taking ibuprofen 3 times a day- last dose today . T&S was ordered, not collected in clinic I sent a text to Dr. Tanner to notify of issue. This patient's fitness for surgery is contingent from a final evaluation per anesthesia the day of surgery. Thank you for the opportunity to contribute to this patient's care. JUANCHO BAER,MPH [facility]IC [id number] [phone] Felecia Burgess MA - 12/22/2012 4:49 PM PDT Venipuncture performed in clinic, blood sample obtained from Right antecubital site Electro nically signed by Felecia Valencia MA at 12/22/2012 8:55 PM PDTdocumented in this encounter Plan of Treatment + +------+--------+ + + | Name | Type | Priori | Associated Diagnoses | Order Schedule | | | | ty | | | + +------+--------+ + + | TYPE AND SCREEN | Lab | Routin | Preop examination | Ordered: 12/22/2012 | | | | e | | | + +------+--------+ + + documented as of this encounter Procedures + +--------+ + + + | Procedure Name | Priori | Date/Time | Associated Diagnosis | Comments | | | ty | | | | + +--------+ + + + | AR COLLECTION VENOUS | Routin | 12/22/2012 | Other specified | | | BLOOD,VENIPUNCTURE | e | 4:49 PM | pre-operative | | | | | PDT | examination | | + +--------+ + + + | 12 LEAD ECG | Routin | 12/22/2012 | Preop examination | Results for this | | | e | 4:41 PM | | procedure are in the | | | | PDT | | results section. | + +--------+ + + + | CBC (HEMOGRAM) ONLY | Routin | 12/22/2012 | Preop examination | Results for this | | | e | 4:29 PM | | procedure are in the | | | | PDT | | results section. | + +--------+ + + + | INR | Routin | 12/22/2012 | Preop examination | Results for this | | | e | 4:29 PM | | procedure are in the | | | | PDT | | results section. | + +--------+ + + + | COMPLETE METABOLIC | Routin | 12/22/2012 | Preop examination | Results for this | | SET | e | 4:29 PM | | procedure are in the | | (NA,K,CL,CO2,BUN,CRE | | PDT | | results section. | | AT,GLUC,CA,AST,ALT,B | | | | | | TEOFILO TOTAL,ALK | | | | | | PHOS,ALB,PROT TOTAL) | | | | | + +--------+ + + + | CBC ONLY | Routin | 12/22/2012 | Preop examination | Results for this | | | e | 4:29 PM | | procedure are in the | | | | PDT | | results section. | + +--------+ + + + | APTT (ACT. PART. | Routin | 12/22/2012 | Preop examination | Results for this | | THROMBO TIME) | e | 4:29 PM | | procedure are in the | | | | PDT | | results section. | + +--------+ + + + | HEMOGLOBIN A1C, | Routin | 12/22/2012 | Diabetes mellitus | Results for this | | BLOOD | e | 4:29 PM | screening | procedure are in the | | [...] ALFONSO | | | | | | ([id number]) on 12/24/2012 | | | | | | 9:46:22 PM | | | | + + + + + + + + | Specimen | + + | | + + + + + | Narrative | Performed At | + + + | Please click | [facility] | | on view image for the detailed interpretation from [facility] results. | CARDIOLOGY | + + + + + | Procedure Note | + + | Interface, Cardiology Results - 12/24/2012 9:50 PM PDT Please click on view image | | for the detailed interpretation from [facility] results. | + + + + + + + | Performing | Address | City/State/Zipcode | Phone Number | | Organization | | | | + + + + + | [facility] | [address] | [place], [place] | | | CARDIOLOGY | [address] | [address] | | + + + + + CBC (HEMOGRAM) ONLY (12/22/2012 4:29 PM PDT) + + + + + + | Component | Value | Ref Range | Performed | Pathologist | | | | | At | Signature | + + + + + + | WHITE CELL | 11.44 (H) | 4.40 - 11.00 | [facility] | | | COUNT | | K/cu mm | LABORATORY | | | | | | SERVICES, | | | | | | CORE | | + + + + + + | RED CELL | 4.80 | 4.00 - 5.20 | [facility] | | | COUNT | | M/cu mm | LABORATORY | | | | | | SERVICES, | | | | | | CORE | | + + + + + + | HEMOGLOBIN | 14.3 | 12.0 - 16.0 | [facility] | | | | | g/dL | LABORATORY | | | | | | SERVICES, | | | | | | CORE | | + + + + + + | HEMATOCRIT | 41.6 | 36.0 - 46.0 % | [facility] | | | | | | LABORATORY | | | | | | SERVICES, | | | | | | CORE | | + + + + + + | MCV | 86.7 | 80.0 - 96.0 fL | [facility] | | | | | | LABORATORY | | | | | | SERVICES, | | | | | | CORE | | + + + + + + | MCHC | 34.4 | 33.0 - 35.5 | [facility] | | | | | g/dL | LABORATORY | | | | | | SERVICES, | | | | | | CORE | | + + + + + + | RDW SD | 41.1 | 35.1 - 46.3 fL | [facility] | | | | | | LABORATORY | | | | | | SERVICES, | | | | | | CORE | | + + + + + + | PLATELET | 277 | 150 - 400 K/cu | [facility] | | | COUNT | | mm | LABORATORY | | | | | | SERVICES, | | | | | | CORE | | + + + + + + | MPV | 10.2 | 9.7 - 12.3 fL | [facility] [...] + + | Blood - Blood | + + + + + | Narrative | Performed At | + + + | New methodology and reference ranges for some CBC/Differential | [facility] | | analytes in effect on 09/19/12. | LABORATORY | | | SERVICES, CORE | + + + + + + + + | Performing | Address | City/State/Zipcode | Phone Number | | Organization | | | | + + + + + | [facility] | [address] | [place] [address] | | | SERVICES, CORE | [address] | | | + + + + + HEMOGLOBIN A1C, BLOOD (12/22/2012 4:29 PM PDT) + + + + + + | Component | Value | Ref Range | Performed | Pathologist | | | | | At | Signature | + + + + + + | HEMOGLOBIN | 9.0 (H)Comment: Hgb A1c | <=5.6 % | [facility] | | | A1C | Interpretive Information | | [facility] - | | | | If you are | | [place] | | | | screening for diabetes: | | | | | | <5.7 | | | | | | Non-diabetic | | | | | | 5.7-6.4 | | | | | | Prediabetes | | | | | | >6.4 | | | | | | Diabetes, if confirmed | | | | | | For monitoring of | | | | | | diabetes control: | | | | | | <7.0 | | | | | | Usual goal of treatment; | | | | | | low risk for | | | | | | complications | | | | | | 7.0-8.0 Some | | | | | | increased risk for | | | | | | long-term complications | | | | | | >8.0 | | | | | | Higher risk of | | | | | | complications; strongly | | | | | | consider | | | | | | | | | | | | intensifying therapy. | | | | + + + + + + + + | Specimen | + + | Blood - Blood | + + + + + + + | Performing | Address | City/State/Zipcode | Phone Number | | Organization | | | | + + + + + | [facility] | [address] | [place] [address] | | | [place] | | | | + + + + + APTT (ACT. PART. THROMBO TIME) (12/22/2012 4:29 PM PDT) + + + + + + | Component | Value | Ref Range | Performed | Pathologist | | | | | At | Signature | + + + + + + | APTT | 23.0 (L) | 26.0 - 36.0 | [facility] | | | | | seconds | LABORATORY | | | | | | SERVICES, | | | | | | CORE | | + + + + + + + + | Specimen | + + | Blood - Blood | + + + + + | Narrative | Performed At | + + + | APTT Therapeutic Range: (75 - | [facility] | | 120) sec Heparin levels of 0.35 - 0.7 U/mL | LABORATORY | | | SERVICES, CORE | + + + + + + + + | Performing | Address | City/State/Zipcode | Phone Number | | Organization | | | | + + + + + | [facility] | [address] | [place] [address] | | | SERVICES, CORE | [address] | | | + + + + + INR (12/22/2012 4:29 PM PDT) + + + + + + | Component | Value | Ref Range | Performed | Pathologist | | | | | At | Signature | + + + + + + | INR | 0.87 (L) | 0.90 - 1.20 INR | [facility] | | | | | | LABORATORY | | | | | | SERVICES, | | | | | | CORE | | + + + + + + + + | Specimen | + + | Blood - Blood | + + + + + | Narrative | Performed At | + + + | INR Therapeutic ranges for full anticoagulation: INR for | [facility] | | Venous Thromboembolism (2.0 - 3.0) INR INR for | LABORATORY | | most patients with mech. valves (2.5 - 3.5) INR | [facility] | + + + + + + + + | Performing | Address | City/State/Zipcode | Phone Number | | Organization | | | | + + + + + | [facility] | [address] | [place] [address] | | | [place] | [address] | | | + + + + + COMPLETE METABOLIC SET (NA,K,CL,CO2,BUN,CREAT,GLUC,CA,AST,ALT,BILI TOTAL,ALK PHOS,ALB,PROT TOTAL) (12/22/2012 4:29 PM PDT) + + + + + + | Component | Value | Ref Range | Performed | Pathologist | | | | | At | Signature | + + + + + + | GLUCOSE, | 209 (H) | 60 - 99 mg/dL | [facility] | | | PLASMA | | | LABORATORY | | | (LAB) | | | SERVICES, | | | | | | CORE | | + + + + + + | BUN, PLASMA | 10 | 6 - 20 mg/dL | [facility] | | | (LAB) | | | LABORATORY | | | | | | SERVICES, | | | | | | CORE | | + + + + + + | CREATININE | 0.53 (L) | 0.60 - 1.10 | [facility] | | | PLASMA | | mg/dL | LABORATORY | | | (LAB) | | | SERVICES, | | | | | | CORE | | + + + + + + | EGFR | >60 | >60 mL/min | [facility] | | | - | | | LABORATORY | | | IRISH | | | SERVICES, | | | | | | CORE | | + + + + + + | EGFR NON | >60 | >60 mL/min | [facility] | | | -RADHA | | | LABORATORY | | | RICAN | | | SERVICES, | | | | | | CORE | | + + + + + + | SODIUM, | 139 | 136 - 145 | [facility] | | | PLASMA | | mmol/L | LABORATORY | | | (LAB) | | | SERVICES, | | | | | | CORE | | + + + + + + | POTASSIUM, | 4.1 | 3.4 - 5.0 | [facility] | | | PLASMA | | mmol/L | LABORATORY | | | (LAB) | | | SERVICES, | | | | | | CORE | | + + + + + + | CHLORIDE, | 107 | 97 - 108 mmol/L | [facility] | | | PLASMA | | | LABORATORY | | | (LAB) | | | SERVICES, | | | | | | CORE | | + + + + + + | TOTAL CO2, | 22 | 21 - 32 mmol/L | [facility] | | | PLASMA | | | LABORATORY | | | (LAB) | | | SERVICES, | | | | | | CORE | | + + + + + + | CALCIUM, | 9.0 | 8.6 - 10.2 | [facility] | | | PLASMA | | mg/dL | LABORATORY | | | (LAB) | | | SERVICES, | | | | | | CORE | | + + + + + + | BILIRUBIN | 0.2 (L) | 0.3 - 1.2 mg/dL | [facility] | | | TOTAL | | | LABORATORY | | | | | | SERVICES, | | | | | | CORE | | + + + + + + | TOTAL | 7.9 | 6.4 - 8.2 g/dL | [facility] | | | PROTEIN, | | | LABORATORY | | | PLASMA | | | SERVICES, | | | (LAB) | | | CORE | | + + + + + + | ALBUMIN, | 3.3 (L) | 3.5 - 4.7 g/dL | [facility] | | | PLASMA | | | LABORATORY | | | (LAB) | | | SERVICES, | | | | | | CORE | | + + + + + + | ALK PHOS | 125 (H) | 42 - 98 U/L | [facility] | | | | | | LABORATORY | | | | | | SERVICES, | | | | | | CORE | | + + + + + + | AST(SGOT) | 21 | 15 - 41 U/L | [facility] | | | | | | LABORATORY | | | | | | SERVICES, | | | | | | CORE | | + + + + + + | ALT (SGPT) | 30 | 12 - 60 U/L | [facility] | | | | | | LABORATORY | | | | | | SERVICES, | | | | | | CORE | | + + + + + + | ANION | 11 | 4 - 11 mmol/L | [facility] [...] + | ANION GAP | 10 | mmol/L | [facility] | | | | | | LABORATORY | | | | | | SERVICES, | | | | | | CORE | | + + + + + + + + | Specimen | + + | Blood - Blood | + + + + + | Narrative | Performed At | + + + | GFR is estimated using the MDRD equation recommended by the | [facility] | | National Kidney Disease Education Program. Estimated GFR | LABORATORY | | Interpretive Information: <60 mL/min/1.73 sq m | SERVICES, [facility] | | Chronic Kidney Disease <15 mL/min/1.73 [...] Rapidly changing kidney | | | function New reference range effective 2012 for Total proteins | | | performed in Core Lab only. | | + + + + + + + + | Performing | Address | City/State/Zipcode | Phone Number | | Organization | | | | + + + + + | [facility] | [address] | [place] [address] | | | SERVICES, [facility] | [address] | | | + + + + + documented in this encounter Visit Diagnoses + + | Diagnosis | + + | Thoracic or lumbosacral neuritis or radiculitis, unspecified - Primary | + + | Preop examination Preoperative examination, unspecified | + + | Spinal stenosis, lumbar region, without neurogenic claudication | + + | Diabetes mellitus screening Screening for diabetes mellitus | + + | Other specified pre-operative examination | + + documented in this encounter
--- OUTSIDE RECORDS SUMMARY | ~2019-10-16 | XMS | Encounter Summary ---
Demographics + + + | Address | [address] | | | [place] [address] | + + + | Home Phone | | + + + | Preferred Language | Unknown | + + + | Marital Status | | + + + | Alevism Affiliation | PRE | + + + | Race | White | + + + | Ethnic Group | Not or | + + + Author + + + | Author | [facility] | + + + | Organization | [facility] | + + + | Address | Unknown | + + + | Phone | Unavailable | + + + Support + + + + + | Name | Relationship | Address | Phone | + + + + + | Dustin Terrazas | ECON | [address] | Unavailable | | | | #[place] | | | | | [address] | | + + + + + | Bebe Terrazas | ECON | Unknown | Unavailable | + + + + + | Arden Terrazas | ECON | Unknown | | + + + + + Care Team Providers + +------+ + | Care Hoisting Engineer Pile Driving Name | Role | Phone | + [...] | | | [facility] [address] | [place], [place] | | | | | [facility] | [address] | | | | | [facility], | [phone] | | | | | [address] | | | | | | [place], [place] | | | | | | [address] | | | | | | [phone] | | | +--------+ + + + [...]
--- OUTSIDE RECORDS SUMMARY | ~2019-10-16 | XMS | Encounter Summary ---
Demographics + + + | Address | [address] | | | [place] [address] | + + + | Home Phone | | + + + | Preferred Language | Unknown | + + + | Marital Status | | + + + | Judaism Affiliation | 1013 | + + + | Race | Unknown | + + + | Ethnic Group | Unknown | + + + Author + + + | Author | [facility] | | | and [place] | + + + | Organization | [facility] | | | and [place] | + + + | Address | Unknown | + + + | Phone | Unavailable | + + + Support + + + + + | Name | Relationship | Address | Phone | + + + + + | Dustin Terrazas | ECON | [place] | | | | | [address] | | + + + + + | Bebe Terrazas | ECON | [address] | | | | [place], [place] | | | | | [address] | | + + + + + Care Team Providers + +------+ + | Care Commutator Operator Name | Role | Phone | + +------+ + | Ki Senior NP | PCP | | + +------+ + Encounter Details +--------+ + + + + | Date | Type | Department | Care Team | Description | +--------+ + + + + | 04/05/ | Hospital | [facility] GENER[facility] IP | Conversion | Pain | | 2018 | Encounter | CONVERSION [address] | Transaction, | | | | | [address] | Provider Unknown | | | | | [place], [place] | [phone] | | | | | [address] | (Fax) | | | | | [phone] | | | +--------+ + + + [...] | + +--------+ + + + | ECHO COMPLETE | Routin | 02/13/2017 | | Results for this | | | e | 4:46 AM | | procedure are in the | | | | PST | | results section. | + +--------+ + + + documented in this encounter Results ECHO Complete (02/13/2017 4:46 AM PST) + + | Specimen | [...]
--- OUTSIDE RECORDS SUMMARY | ~2019-10-16 | XMS | Encounter Summary ---
Demographics + + + | Address | [address] | | | [place] [address] | + + + | Home Phone [...] #[place] | | | | | [address] | | + + + + + | Bbee Terrazas | ECON | Unknown | Unavailable | + + + + + | Arden Terrazas | ECON | Unknown | | + + + + + Care Team Providers + +------+ + | Care Electrogalvanizing Machine Operator Name | Role | Phone | [...] | | | | Midline | Annita Rojo, | | | | | | thoracic | [place] [address] | | | | | | back pain | [address] | | | | | | Neck pain | [place], [place] | | | | | | Thoracic | [address] | | | | | | radiculopath | Phone: | | | | | | y | [phone] | | | | | | Paresthesias | Fax: | | | | | | Procedures | [phone] | | | | | | MRI [...] | | | Health [facility], | [place], [place] | Thoracic | | | | [facility] | [address] | radiculopathy; | | | | floor [facility] [place] | [phone] | Paresthesias; S/P | | | | [address] | | lumbar fusion | | | | [phone] | | | +--------+---------+ + + + [...] The patient was last seen in the [facility] Neuro[facility]urg masood clinic on 05/20/13. The patient [...] treatmen t recommendations. [facility] [address] Mailcode: [address] [place] [address] documented in t his encounter [...] | | + +---------+ + + | [facility] DEPARTMENT OF | | | | | [...]
--- OUTSIDE RECORDS SUMMARY | ~2019-10-16 | XMS | Encounter Summary ---
Demographics + + + | Address | [address] | | | [place] [address] | + + + | Home Phone [...] + + + | Author | [facility] | + + + | Organization | [facility] | + + + | [...] #[place] | | | | | [address] | | + + + + + | Bebe Terrazas | ECON | Unknown | Unavailable | + + + + + | Arden Terrazas | ECON | Unknown | | + + + + + Care Team Providers + +------+ + | Care Validation Manager Name | Role | Phone | + +------+ + | Crissy Santoyo PA-C | PCP | | + +------+ + Encounter Details +--------+ + + + + | Date | Type | Department | Care Team | Description | +--------+ + + + + | 04/29/ | Document-Sc | Health Information | Unknown . | | | 2013 | anned | Services [address] | | | | | | [address] | | | | | | Mailcode: [id number] | | | | | | [facility] | | | | | | [place], [place] | | | | | | [address] | | | | | | [phone] | | | +--------+ + + + [...]
--- OUTSIDE RECORDS SUMMARY | ~2019-10-16 | XMS | Encounter Summary ---
Demographics + + + | Address | [address] | | | [place] [address] | + + + | Home Phone | | + + + | Preferred Language | Unknown | + + + | Marital Status | | + + + | Pentecostal Affiliation | PRE | + + + | Race | White | + + + | Ethnic Group | Not or | + + + Author + + + | Author | [facility] | + + + | Organization | [facility] | + + + | [...] #[id number] [place] | | | | | [address] | | + + + + + | Bebe Terrazas | ECON | Unknown | Unavailable | + + + + + | Arden Terrazas | ECON | Unknown | | + + + + + Care Team Providers + +------+ + | Care Jewelry Department Supervisor Name | Role | Phone | [...] | | syndrome | | Sadie Granados [facility] | | | | | Procedures | | [facility], | | | | | CT SPINE | | 10th Floor | | | | | LUMBAR WO | | [place], [place] | | | | | CONTRAST | | [address] | | | | | | | Phone: | | | | | | | [phone] | | | | | | | Fax: | | | | | | | [phone] | +--------+--------+ + + + + Diagnostic Testing (Routine) +--------+--------+ + + + + | Status | Reason | Specialty | Diagnoses / | Referred By | Referred To | | | | | Procedures | Contact | Contact | +--------+--------+ + + + + | Closed | | Radiology | Diagnoses | Antonio, | [facility] | | | | | Failed back | Adama Rojo MD | [address] | | | | | surgical | | [address] | | | | | syndrome | | [address] | | | | | Procedures | | Research | | | | | MRI SPINE | | Center | | | | | LUMBAR WWO | | [place], [place] | | | | | CONTR | | [address] | | | | | | | Phone: | | | | | | | [phone] | | | | | | | Fax: | | | | | | | [phone] | +--------+--------+ + + + + Reason for Visit + + + | Reason | Comments | + + + | New patient | | | consultation | | + + + Consultation (Urgent) +--------+ + + + + + | Status | Reason | Specialty | Diagnoses / | Referred By | Referred To | | | | | Procedures | Contact | Contact | +--------+ + + + + + | Closed | Specialty | Neurological | Diagnoses | Haddad, | Jose De Jesuslan, | | | Services | Surgery | | Zora Mcgill MD | Patricio Hernandez MD | | | Required | | Displacement | [facility] | [address] | | | | | of lumbar | [address] | [address] | | | | | intervertebr | CLINIC | [place], [place] | | | | | al disc | [address] [address] | [address] | | | | | without | [address] | Phone: | | | | | myelopathy | [address] | [phone] | | | | | INS: | [facility] [place] | Fax: | | | | | [place] | [address] | [phone] | | | | | [facility] | Phone: | | | | | | | [phone] | | | | | | | Fax: | | | | | | | [phone] | | +--------+ + + + + + Encounter Details +--------+---------+ + + + | Date | Type | Department | Care Team | Description | +--------+---------+ + + + | 09/17/ | Office | Neurosurgery [address] | Patricio Tanner, | 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 | Visit | [address] | [address] | syndrome (Primary | | | | Physician's | [place], [place] | Dx) | | | | [place], 2nd floor | [address] | | | | | [place], [place] | [phone] | | | | | [address] | | | | | | [phone] | | | +--------+---------+ + + + Social History + +-------+ [...] + + + | Blood Pressure | 138/91 | 09/17/2012 9:06 AM | | | | | PDT | | + + + + + | Pulse | 92 | 09/17/2012 9:06 AM | | | | | PDT | | + + + + + | Temperature | 36.9 C (98.4 F) | 09/17/2012 9:06 AM | | | | | PDT [...] Weight | 103 kg (227 lb) | 09/17/2012 9:06 AM | | | | | PDT | | + + + + + | Height | - | - | | + + + + + | Body Mass Index | - | - | | + + + + + documented in this encounter Progress Notes Patricio Tanner MD - 09/18/2012 10:30 PM PDTI performed a history and physical examination of the patient and discussed her management with the resident. I reviewed the resident s note and agree with the documented findings and plan of care. MD PATRICIO Rayo MD NEUROSURGERY [address] [place] [address] Mailcode: [address] [place] [address] Adama Billy MD - 09/17/2012 9:47 AM PDT H&P History: 41 yo female [facility] and radicular symptoms. 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 She underwent a laminectomy and discectomy by Dr. Leach from [facility] in july 2012. She states that she did not improve after this surgery. She states that her pain continues to be down both legs more on the right jamel n the left with numbness and tingling down into her foot with a numb middle toe. She uses a walker to get around. She is currently 2 months out from surgery. She states that she has si nce her last surgery developed urinary incontinence. After her lasty surgery jailyn to the pain she underwent imaging which showed post operative changes and some continued posterior comp ression from the level above/. In addition, there was a concern for discitis and she underwe nt a CT guided biopsy which did not show any infection. She then went back to see Her surge on who stated that he did not believe that she would benefit from any further surgery. Current Outpatient Prescriptions Medication Sig ALBUTEROL INHL Inhale as needed. baclofen 10 mg Oral tablet Take 10 mg by mouth three times daily. FLUoxetine 20 mg Oral capsule Take 20 mg by mouth once daily at bedtime. gabapentin 300 mg Oral capsule Take 300 mg by mouth once daily at bedtime. ibuprofen 800 mg Oral tablet Take 800 mg by mouth three times daily. Indications: Pain losartan 25 mg Oral tablet Take 25 mg by mouth once daily. Indications: HYPERTENSION oxyCODONE, immediate release, 5 mg Oral tablet Take by mouth every six hours as needed . predniSONE 20 mg Oral tablet Take by mouth once daily. No current facility-administered medications for this visit. Allergies Allergen Reactions Codeine Vomiting Morphine Vomiting Sulfur Nausea Past Surgical History Procedure Laterality Date Lumbar fusion 03/2010 Endometrial ablation 2001 Breast reduction surgery Sinus surgery Cholecystectomy Lithotripsy Tubaligation Past Medical History Diagnosis Date Obesity Lumbar radiculopathy Low back pain HTN (hypertension) Hyperlipidemia, mixed Type 2 diabetes mellitus Depressive disorder Migraine Asthma Family History Problem Relation Hypertension Mother Asthma Mother Arthritis Mother Depression Mother Asthma Sister Depression Sister Asthma Grandmother Arthritis Grandmother Depression Grandmother Heart Disease Grandmother History Social History Marital Status: Spouse Name: N/A Number of Children: N/A Years of Education: N/A Occupational History Not on file. Social History Main Topics Smoking status: Former Smoker Smokeless tobacco: Not on file Alcohol Use: Not on file Drug Use: Not on file Sexually Active: Not on file Other Topics Concern Not on file Social History Narrative No narrative on file Review of Systems: General: No constitutional symptoms of fevers, fatigue, chills, night sweats, or weight lo ss. Musculoskeletal: No joint pain, swelling, stiffness, neck pain, back pain, arthritis, musc le aches and cramps, loss of strength. Gastrointestinal: No change in appetite, vomiting, nausea, constipation, diarrhea, abdomin al pain, bloody stools or dark tarry stools. Genitourinary: No urinary frequency, urgency, difficulty in urination, blood in urine, or i ncontinence. Neurological: No unusual headaches, inability to speak, poor balance, tremors, memory loss, disturbances in coordination or sensation of room spinning. All other review of systems are negative. Physical Exam: Vitals: BP 138/91 | Pulse 92 | Temp 36.9 C (98.4 F) | Wt 102.967 kg (227 lb) General: Hesitant gait, stooped position, uses a walker Neurological Exam: Alert, oriented X 3, fluent speech, and good historian CN: Pupils are equal and round, EOMI. Extremity Exam: Strength: RUE LUE Deltoid 5/5 5/5 Biceps 5/5 5/5 Triceps 5/5 5/5 Handgrip 5/5 5/5 Interosses 5/5 5/5 RLE LLE HF 5/5 5/5 KE 5/5 5/5 KF 5/5 5/5 DF 5/5 5/5 PF 5/5 5/5 EHL 5/5 5/5 Reflexes: Right Extremities Left Extremities Biceps 2/4 2/4 Triceps 2/4 2/4 Knee 1/4 2/4 Ankle 2/4 2/4 Sensory: Right Extremities Left Extremities No deficits to light touch RUE No deficits to light touch LLE Subjective decrease to light touch RLE No deficits to light touch LUE Plantar Response: Toes going downward bilaterally Straight leg raising test: Ankle Clonus: Negative RLE is positive LLE is negative Cerebellar exam: No dysmetria on finger to nose on right No dysmetria on finger to nose on left Imaging: MRI of the lumbar spine from 05/2012 prior to her latest surgery shows the large di sc herniation and lumbar canal stenosis. Impression: 41 yo female s/p 3 level fusion, adjacent segment disease and s/p decompression and discectomy at L3-4 With continued back pain and leg symptoms as well as new urinary sy mptoms. We do not currently have any recent imaging since her surgery. She may need an exten mayank of her fusion to include the level above as there is modic changes on the MRI. In addit ion, we will look for any scar tissue or evidence of infection. We will obtain a lumbar CT t o look at her bony anatomy and bone quality. She need standing long plate scoliosis radiogra phs to evaluate her sagittal balance. Recommendations: - MRI lumbar spine w/wo contrast - CT lumbar spine - standing long plate lateral radiographs. - RTC when these are complete documented in this enc ounter Plan of Treatment Not on filedocumented as of this encounter Results MRI SPINE LUMBAR WWO CONTR (10/02/2012 5:53 PM PDT) + + + + + + | Component | Value | Ref Range | Performed | Pathologist | | | | | At | Signature | + + + + + + | MR LUMBAR | EXAM: MRI lumbar spine | | | | | SPINE WWO | with and without | | | | | CONTR | contrast HISTORY: | | | | | | 41-year-old female with | | | | | | continued back pain | | | | | | status post | | | | | | posteriorfusion of L4 | | | | | | through S1. | | | | | | COMPARISON:Lumbar spine | | | | | | CT acquired earlier same | | | | | | day.Outside lumbar | | | | | | spine MRI, 05/26/2012. | | | | | | TECHNIQUE: MRI lumbar | | | | | | spine without and with | | | | | | 20 ml Omniscan | | | | | | intravenouscontrast. | | | | | | FINDINGS: Extruded disk | | | | | | noted at C3-4 and most | | | | | | recent prior outside MRI | | | | | | has beenresected. | | | | | | Overlying posterior | | | | | | soft tissue rim | | | | | | enhancing fluid | | | | | | collectionextending to | | | | | | the midline overlying | | | | | | the L3 and L4 spinous | | | | | | processes measures 5.1x | | | | | | 1.5 x 1.5 cm. L4-5 | | | | | | laminectomies and L4 | | | | | | through S1 posterior | | | | | | fusion with bilateral | | | | | | paraspinalrods and | | | | | | pedicle screws is | | | | | | redemonstrated. | | | | | | Diskectomy with | | | | | | intervertebralgraft | | | | | | placement is noted at | | | | | | L4-5 and L5-S1. The | | | | | | left L5 pedicle screw | | | | | | extendsbeyond the cortex | | | | | | of the L5 vertebral | | | | | | body. Lumbar lordosis | | | | | | is maintained. Increased | | | | | | end plate marrow T2 | | | | | | signal consistent with | | | | | | marrow edema is noted | | | | | | atthe fused levels and | | | | | | at L3-4 consistent with | | | | | | combination of | | | | | | chronicdegenerative and | | | | | | postoperative changes. | | | | | | Marrow signal is | | | | | | otherwiseunremarkable. | | | | | | The conus terminates at | | | | | | L1-2, within normal | | | | | | limits. L1-2: Mild | | | | | | diffuse disk bulge with | | | | | | no foraminal or | | | | | | vertebral canal | | | | | | stenosis.L2-3: | | | | | | UnremarkableL3-4: | | | | | | Diffuse disk bulge with | | | | | | osteophyte complex and | | | | | | bilateral | | | | | | facethypertrophy results | | | | | | in bilateral foraminal | | | | | | narrowing that is | | | | | | moderate to severeon the | | | | | | right and mild on the | | | | | | left. Moderate | | | | | | vertebral canal stenosis | | | | | | is noted.L4-5: | | | | | | Posterior disk | | | | | | osteophytes and facet | | | | | | hypertrophy results in | | | | | | mildbilateral foraminal | | | | | | narrowing with no | | | | | | vertebral canal | | | | | | stenosis.L5-S1: | | | | | | Posterior disk | | | | | | osteophyte complex | | | | | | results in mild | | | | | | foraminal narrowing | | | | | | onthe right. Visualized | | | | | | sacrum and pelvis: | | | | | | Unremarkable IMPRESSION: | | | | | | 1. Interval resection | | | | | | of extruded portion of | | | | | | disk at C3-4 with | | | | | | overlying rimenhancing | | | | | | subcutaneous soft tissue | | | | | | fluid collection | | | | | | consistent with | | | | | | resolvingpostoperative | | | | | | hematoma versus abscess. | | | | | | Fluid sample could be | | | | | | acquired fordefinitive | | | | | | diagnosis if clinically | | | | | | indicated. 2. Status | | | | | | post anterior and | | | | | | posterior fusion of L4 | | | | | | through S1. 2. | | | | | | Multi-level | | | | | | degenerative changes | | | | | | resulting in variable | | | | | | degrees of foraminaland | | | | | | spinal canal narrowing | | | | | | is seen on recent prior | | | | | | CT. Attending | | | | | | Radiologists: PHYLLIS | | | | | | REENA BARKERuthor: Felton | | | | | | Ab Doss I have | | | | | [...] | | | | | | LUCERO 10/03/2012 15:07 | | | | | | PM Pending final | | | | | | approval / Zsoka | | | | | | Selam 10/03/2012 10:34 | | | | | | AM Preliminary / | | | | | | Zsoka Selam 10/03/2012 | | | | | | 8:10 AM | | | | + + + + + + + + | Specimen | + + | | + + + +---------+ + + | Performing | Address | City/State/Zipcode | Phone Number | | Organization | | | | + +---------+ + + | [facility] DEPARTMENT OF | | | | | RADIOLOGY | | | | + +---------+ + + X-RAY SCOLI SPINE ENTR RADHA AP &LAT [...] + + | Performing | Address | City/State/Inscription House Health Centercode | Phone Number | | Organization | | | | + +---------+ + + | [facility] DEPARTMENT OF | | | | | RADIOLOGY | | | | + +---------+ + + CT SPINE LUMBAR WO CONTRAST (10/02/2012 4:33 [...] + + | 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
--- OUTSIDE RECORDS SUMMARY | ~2019-10-16 | XMS | Encounter Summary ---
Demographics + + + | Address | [address] | | | [place] [address] | + + + | Home Phone [...] #[id number] | | | | | [address] | | + + + + + | Bebe Terrazas | ECON | Unknown | Unavailable | + + + + + | Arden Terrazas | ECON | Unknown | | + + + + + Care Team Providers + +------+ + | Care Marine Gear Keeper Name | Role | Phone | + [...] Description | +--------+--------+ + + + | 04/17/ | Refill | Neurosurgery at | Lety Travis, | Refill Request | | 2013 | | [place] [facility] | ,PhD [address] | | | | | and Healing [address] | [address] | | | | | [facility] for | [place], [place] | | | | | Health and Healing, | [address] | | | | | [facility] [address] | [phone] | | | | | [place], [place] | | | | | | [address] | | | | | | [phone] | | | +--------+--------+ + + + [...]
--- OUTSIDE RECORDS SUMMARY | ~2019-10-16 | XMS | Encounter Summary ---
Demographics + + + | Address | [address] | | | [place] [address] | + + + | Home Phone | | + + + | Preferred Language | Unknown | + + + | Marital Status | | + + + | Mandaen Affiliation | PRE | + + + [...] [id number] [place] | | | | | [id number] | | + + + + + | Bebe Terrazas | ECON | Unknown | Unavailable | + + + + + | Arden Terrazas | ECON | Unknown | | + + + + + Care Team Providers + +------+ + | Care Joint Cleaning Machine Operator Name | Role | Phone [...] Closed | | Radiology | Diagnoses | [place], | | | | | | [place] | Yuriy Mcgill PA-C | | | | | | subcutaneous | [address] | | | | | | tissue | [address] | | | | | | Abnormal | [address] | | | | | | prominence | [place], | | | | | | of rib | [place] | | | | | | Procedures | [id number] | | | | | | CT CHEST, | Phone: | | | | | | ABDOMEN AND | [phone] | | | | | | PELVIS W IV | Fax: | | | | | | CONTRAST CT | [phone] | | | | | | ABDOMEN AND | | | | | | | PELVIS W IV | | | | | | | CONTRAST | | | +--------+--------+ + + + + Encounter Details +--------+ + + + + | Date | Type | Department | Care Team | Description | +--------+ + + + + | 05/06/ | Ancillary | [facility] | Yuriy Cardenas, | | | 2019 | Orders | at [place] [address] | PA-C [address] | | | | [address] | [address] | | | | | [facility] [place], [place] | [place], [place] | | | | | [address] | [address] | | | | | [phone] | [phone] | | | | | | | [...] filedocumented as of this encounter Results CT CHEST, ABDOMEN AND PELVIS W IV CONTRAST (07/07/2018 5:11 PM PDT) + + | Specimen | + + | | + + + + + | Narrative | Performed At | + + + | EXAM: CT of the chest, abdomen and pelvis WITH intravenous contrast. | [facility] | | HISTORY: Neoplasm: abdomen, metastatic, suspected hx lung CA, | RADIOLOGY VOICE | | enlarging L lateral subcutaneous masses of hip and flank, T12 | RECOGNITION 2 | | abnormality COMPARISON: CTA chest 07/12/17 and outside PET/CT | | | 04/09/17 TECHNIQUE: CT of the chest, abdomen and pelvis WITH | | | intravenous contrast. Coronal and sagittal reformats were generated | | | and reviewed. FINDINGS: CHEST: Lungs show a diffuse mosaic | | | attenuation pattern which is likely secondary to air trapping /small | | | airways disease. There is no suspicious pulmonary lesion. Left lower | | | lobectomy and left upper lobe wedge resection changes are | | | unremarkable. Trace left pleural effusion or scarring. No | | | right-sided effusion. The heart and great vessels are | | | unremarkable. No thoracic lymphadenopathy. Large rim | | | calcifications in the right breast appear stable and likely benign. | | | LIVER: Heterogeneous hepatic steatosis. No focal lesion. BILIARY: | | | Gallbladder surgically absent. PANCREAS: Severely atrophic in the | | | tail. The neck and head are mildly atrophic. No definite duct dilation | | | is seen and these findings are similar to April 2017 and therefore | | | presumably chronic and not malignant. SPLEEN: Unremarkable. | | | ADRENALS: Diffuse thickening of the left adrenal is stable and likely | | | small adenomas or hyperplasia. Right adrenal unremarkable.. | | | KIDNEYS/URETERS: Unremarkable. PELVIC ORGANS/BLADDER: Unremarkable. | | | GI TRACT: Unremarkable. PERITONEUM: No free air or fluid. | | | LYMPH NODES: No lymphadenopathy. VESSELS: Scattered atherosclerotic | | | calcification without aneurysm. BONES AND SOFT TISSUES: A left | | | flank hernia contains retroperitoneal fat and is slightly increased in | | | size compared to one year ago, with the defect measuring | | | approximately 6 x 5.5 cm. The lower pole of the left kidney is in the | | | base of the hernia but not herniated while supine. Subcutaneous | | | lipoma overlies the left hip measuring 4 x 2.5 x 4.2 cm. This is | | | stable compared to the prior study PET/CT. The soft tissues | | | otherwise show diffuse mild anasarca. The bones show prior | | | extensive lumbar decompression surgery with posterior instrumented | | | fusion. No suspicious bone lesion is seen. A small round sclerotic | | | lesion in the T12 vertebral body is stable compared to remote imaging | | | from 2013 and therefore likely benign IMPRESSION: 1. No | | | evidence of recurrent malignancy. 2. Palpable abnormalities are | | | most likely accounted for by an increasing left flank hernia | | | containing fat and a stable subcutaneous lipoma over the left hip. | | | I have personally reviewed the images and, if necessary, edited the | | | report. I agree with the report as now presented. Final | | | signature: Lior Castillo MD 07/08/2018 9:06 AM Preliminary: Lior Castillo MD Dictation initiated: Lior Castillo MD | | | 07/08/2018 8:56 AM | | + + + + + | Procedure Note | + + | Service Account, Radiant Res In Interface - 07/08/2018 9:07 AM PDT EXAM: CT of the | | chest, abdomen and pelvis WITH intravenous contrast. HISTORY: Neoplasm: abdomen, | | metastatic, suspectedhx lung CA, enlarging L lateral subcutaneous masses of hip and | | flank, T12 abnormality COMPARISON: CTA chest 07/12/17 and outside PET/CT 04/09/17 | | TECHNIQUE: CT of the chest, abdomen and pelvis WITH intravenous contrast. Coronal and | | sagittal reformats were generated and reviewed. FINDINGS: CHEST: Lungs show a diffuse | | mosaic attenuation pattern which is likely secondary to air trapping /small airways | | disease. There is no suspicious pulmonary lesion. Left lower lobectomy and left upper | | lobe wedge resection changes are unremarkable. Trace left pleural effusion or scarring. | | No right-sided effusion. The heart and great vessels are unremarkable. No thoracic | | lymphadenopathy. Large rim calcifications in the right breast appear stable and likely | | benign. LIVER: Heterogeneous hepatic steatosis. No focal lesion.BILIARY: Gallbladder | | surgically absent.PANCREAS: Severely atrophic in the tail. The neck and head are mildly | | atrophic. No definite duct dilation is seen and these findings are similar to April | | 2017 and therefore presumably chronic and not malignant. SPLEEN: Unremarkable.ADRENALS: | | Diffuse thickening of the left adrenal is stable and likely small adenomas or | | hyperplasia. Right adrenal unremarkable..KIDNEYS/URETERS: Unremarkable.PELVIC | | ORGANS/BLADDER: Unremarkable. GI TRACT: Unremarkable.PERITONEUM: No free air or fluid. | | LYMPH NODES: No lymphadenopathy.VESSELS: Scattered atherosclerotic calcification without | | aneurysm. BONES AND SOFT TISSUES: A left flank hernia contains retroperitoneal fat and | | is slightly increased in size compared to one year ago, with the defect measuring | | approximately 6 x 5.5 cm. The lower pole of the left kidney is in the base of the hernia | | but not herniated while supine. Subcutaneous lipoma overlies the left hip measuring 4 x | | 2.5 x 4.2 cm. This is stable compared to the prior study PET/CT. The soft tissues | | otherwise show diffuse mild anasarca. The bones show prior extensive lumbar | | decompression surgery with posterior instrumented fusion. No suspicious bone lesion is | | seen. A small round sclerotic lesion in the T12 vertebral body is stable compared to | | remote imaging from 2013 and therefore likely benign IMPRESSION: 1. No evidence of | | recurrent malignancy. 2. Palpable abnormalities are most likely accounted for by an | | increasing left flank hernia containing fat and a stable subcutaneous lipoma over the | | left hip. I have personally reviewed the images and, if necessary, edited the report. I | | agree with the report as now presented. Final signature: iLor Castillo MD 07/08/2018 | | 9:06 AM Preliminary: Lior Castillo MD Dictation initiated: Lior Castillo MD | | 07/08/2018 8:56 AM | |BONES AND SOFT TISSUES: A left flank hernia contains retroperitoneal fat and is slightly in creased in size compared to one year ago, with the defect measuring approximately 6 x 5.5 cm . The lower pole of the left | |kidney is in the base of the hernia but not herniated while supine. | | | |Subcutaneous lipoma overlies the left hip measuring 4 x 2.5 x 4.2 cm. This is stable compar ed to the prior study PET/CT. | | | |The soft tissues otherwise show diffuse mild anasarca. | | | |The bones show prior extensive lumbar decompression surgery with posterior instrumented fus ion. No suspicious bone lesion is seen. A small round sclerotic lesion in the T12 vertebral body is stable compared to remote | |imaging from 2013 and therefore likely benign | | | | | |IMPRESSION: | | | |1. No evidence of recurrent malignancy. | | | |2. Palpable abnormalities are most likely accounted for by an increasing left flank hernia containing fat and a stable subcutaneous lipoma over the left hip. | | | |I have personally reviewed the images and, if necessary, edited the report. I agree with e report as now presented. | | | |Final signature: Lior Castillo MD 07/08/2018 9:06 AM | |Preliminary: Lior Castillo MD | |Dictation initiated: Lior Castillo MD 07/08/2018 8:56 AM | + + + +---------+ + + | Performing | Address | City/State/Zipcode | Phone Number | | Organization | | | | + +---------+ + + | [facility] | | | | | VOICE RECOGNITION 2 | | | | + +---------+ + + documented in this encounter Visit Diagnoses + + | Diagnosis | + + | Mass of subcutaneous tissue | + + | Abnormal prominence of rib | + + documented in this encounter"
--- OUTSIDE RECORDS SUMMARY | ~2019-10-16 | XMS | Encounter Summary ---
Demographics + + + | Address | [address] | | | [place] [address] | + + + | Home Phone | | + + + | Preferred Language | Unknown | + + + | Marital Status | | + + + | Roman Catholic Affiliation | PRE | + + [...] | Dustin Merino | ECON | [address] | Unavailable | | | | #[id number] | | | | | [phone] | | + + + + + | Bebe Merino | ECON | Unknown | Unavailable | + + + + + | Arden Merino | ECON | Unknown | | + + + + + Care Team Providers + +------+ + | Care Pathology Supervisor Name | Role | Phone | [...] Description | +--------+---------+ + + + | 12/23/ | Surgery | 6A Intra Op [id number] | Sivakumar Tanner, | EXTREME LATERAL | | 2012 | | [address] | [address] | INTERBODY FUSION | | | | Rd [facility] | [place], [place] | L3-4 L3-4 | | | | Hospital Admitting | [id number] | LAMINECTOMY | | | | Desk Located on the | [phone] | | | | | 9th floor | | | | | | [facility] [place] | | | | | | [address] | | | +--------+---------+ + + + [...] + + + | Blood Pressure | 122/61 | 12/26/2012 12:02 PM | | | | | PDT | | + + + + + | Pulse | 93 | 12/26/2012 12:02 PM | | | | | PDT | | + + + + + | Temperature | 36.8 C (98.2 F) | 12/26/2012 12:00 PM | | | | | PDT | | + + + + + | Respiratory Rate | 18 | 12/26/2012 12:02 PM | | | | | PDT | | + + + + + | Oxygen Saturation | 94% | 12/26/2012 12:02 PM | | | | | PDT | | + + + + + | Inhaled Oxygen | - | - | | | Concentration | | | | + + + + + | Weight | 102.8 kg (226 lb | 12/23/2012 8:35 AM | | | | 10.1 oz) | PDT | | + + + + + | Height | 167.6 cm (5' 6") | 12/23/2012 8:35 AM | | | | | PDT | | + + + + + | Body Mass Index | 36.58 | 12/23/2012 8:35 AM | | | | | PDT | | + + + + + documented in this encounter Discharge Summaries Olga Bullock PA - 12/26/2012 3:21 PM PDTFormatting of this note might be differe nt from the original. NEUROSURGERY DISCHARGE SUMMARY: Patient: Mary Merino Admission Date: 12/23/2012 Discharge Date: 12/26/2012 Attending Physician: Sivakumar Tanner MD PCP: Zora Haddad DO Service: [facility] Neurosurgery Diagnoses Principal Final Diagnosis: 1. Adjacent level degenerative disk disease at L3-4. 2. L4 radiculopathy. 3. Spondylosis. 4. Herniated nucleus pulposus at L3-4. Additional Diagnoses: Hyperglycemia Past Medical History: Obesity Lumbar radiculopathy Low back pain HTN (hypertension) Hyperlipidemia, mixed Type 2 diabetes mellitus Depressive disorder Migraine Asthma Thoracic or lumbosacral neuritis or radiculiti* Spinal stenosis, lumbar region, without neurog* Tachycardia PONV (postoperative nausea and vomiting) Comment:per patient she has had bad problems with vomiting after surgery. Thoracic or lumbosacral neuritis or radiculiti* Spinal stenosis, lumbar region, without neurog* Unspecified asthma GERD (gastroesophageal reflux disease) Procedures Procedures Performed: 1. Direct lateral interbody fusion using [place] of L3-4 on the left lateral approa ch. 2. A posterior L3-S1 posterior instrumented fusion and removal of old hardware at L 4, L5, and S1 bilaterally. 3. Revision of left-sided S1 screw. 4. Decompression, including laminectomies and bilateral neural foraminotomies of L3 -4 with bilateral foraminotomies L2-3 and L3-4 through revision scar tissue close. 5. Posterolateral arthrodesis. 6. Navigated pedicle screw placement of new screws at L3 bilaterally. 7. Use of intraoperative neuromonitoring. 8. Placement of a Hemovac drain. Brief Hospital Course Mary Merino is a 42 y.o. female with a history of Lumbar Radiculopathy, Lumbar Spon dylosis, Adjacent level Degenerative Disc Disease, admitted to [facility], electively, on 12/24/19 for the procedure(s) described above. The inpatient stay related to this procedure(s) to ok an uncomplicated perioperative course and the patient was followed closely by the attendi ng providers, resident providers, and medical/nursing staff. The patient made appropriate gains toward activity and functional goals while an inpatient. She was placed on a Medrol dosepak due to post operative Left radicular leg pain. The Hospi talist Service was consulted for management of Diabetes, Hyperglycemia during admit. Her pre -operative HbA1C was 9.0. The patient worked with our rehabilitation team with recommendati on discharge home with family assistance. While on the hospital floor, the patient tolerated oral intake sufficient to maintain nutri tion and hydration. The surgical wound remained clean, dry, and intact without signs concern ing for infection. Her post operative pain was adequately managed with oral medications by . The Hospitalist Service recommended adding Glyburide 2.5 mg daily to her routine di abetes treatment and prescribed Lantus 20 units qhs x 4 days. A follow up appointment with t [place] patient's Primary Care clinic was arranged for 01/02/13 at 12:50 pm. She will follow up in the Neurosurgery clinic on 01/07/13. The patient was felt appropriate for discharge to home on 12/26/2012, and the patient and/or family members agree with this course of action. Diet Diabetic (Consistent Carbohydrate) Diabetic diet (Consistent Carbohydrate)- You should be careful to control your daily inta ke of carbohydrates and ensure that you are consuming the same amount of carbohydrates each day. Your health care provider will work with you to determine the appropriate amount of ca rbohydrates your body needs. Activity Lifting restrictions: No lifting more than 10 pounds. Avoid repetitive bending and all strenuous activity until further notice. No driving while taking oral narcotics/pain medications. Follow Up Follow up at [facility] Neurosurgery Clinic, [facility], 8th Floor, [address] [place] [address]; 01/07/13 at 10:30 am. Follow up with your Primary Care Clinic: 2012 at 12:50 pm with Mandie Laws Destination: Destination: Home Condition on Discharge Good PCP:Zora Haddad, DO When: Please follow-up with your primary care physician as soon a s possible to review new medications and recent interventions Call: Please call and ask for the Neurosurgery Resident on-call if you have any of the following: - Difficulty breathing or unusual shortness of breath - Excessive bleeding, drainage at the operative site - Fevers, chills, increased pain that is not relieved by pain medications - Persistent nausea or vomiting - Severe headaches, dizziness, or visual changes Current Discharge Medication List START taking these medications Details acetaminophen 325 mg Oral tablet Take 1-2 tablets by mouth every four hours as needed for f ever or moderate pain. glyBURIDE 2.5 mg Oral tablet Take 1 tablet by mouth once daily with breakfast. Qty: 30 tablet, Refills: 2 insulin glargine (LANTUS) 100 unit/mL Subcutaneous Solution Inject 20 Units under the skin (SUBC) once daily for 4 days. Indications: DIABETES MELLITUS Qty: 10 mL, Refills: 0 methylPREDNISolone 4 mg Oral tablet 12/27/12 take 3 tabs once daily, 12/28/12 take 2 tabs o nce daily, 12/29/12 take 1 tab once daily then stop. Qty: 6 tablet, Refills: 0 ondansetron 4 mg Oral tablet Take 1 tablet by mouth every eight hours as needed for nausea/ vomiting. Qty: 12 tablet, Refills: 1 oxyCODONE, immediate release, 10 mg Oral tablet Take 1-2.5 tablets by mouth every three opal rs as needed for severe pain. Qty: 200 tablet, Refills: 0 polyethylene glycol 17 gram/dose Oral Powder Take 17 g by mouth once daily as needed. senna-docusate 8.6-50 mg Oral tablet Take 2 tablets by mouth two times daily. Discontinue f or loose stools or diarrhea Indications: CONSTIPATION Qty: 120 tablet, Refills: 1 tiZANidine 2 mg Oral tablet Take 1 tablet by mouth every twelve hours as needed (muscle spa sms). Max: 36 mg / day. Indications: MUSCLE SPASM Qty: 40 tablet, Refills: 0 CONTINUE these medications which have CHANGED or have new prescriptions Details gabapentin 300 mg Oral capsule Take 1 capsule by mouth three times daily. Indications: Neur opathic Pain Qty: 90 capsule, Refills: 3 CONTINUE these medications which have NOT CHANGED Details ALBUTEROL INHL Inhale as needed. FLUoxetine 20 mg Oral capsule Take 20 mg by mouth once daily at bedtime. losartan 25 mg Oral tablet Take 25 mg by mouth once daily at bedtime. Indications: HYPERTEN SALVADOR metFORMIN 500 mg Oral tablet Take 500 mg by mouth two times daily. STOP taking these medications ibuprofen 800 mg Oral tablet Comments: Reason for Stopping: Special Instructions/Tests: follow up with your Primary Care provider for Diabetes Managmen t Condition On Discharge: Good Vital Signs at discharge as appropriate: BP: 122/61 mmHg (12/26/12 1202) Pulse: 93 (12/26/12 1202) Resp: 18 (12/26/12 1202) Weight: 102.8 kg (226 lb 10.1 oz) (12/23/12 0835) Discharge Patient To: Home Does patient have a planned readmission: No Discharge Summary Completed?: Yes. 12/26/2012 Discharging Provider: OLGA BULLOCK PA-C Date Completed: 12/26/2012 Time Completed: 3:21 PM Discharging Attending: Sivakumar Tanner MD [facility] [address] [address]/[place] [address] documented in t his encounter Medications at Time of Discharge + [...] documented as of this encounter Progress Notes Maricarmen Colindres, ADRIENNE - 12/26/2012 10:00 AM PDTDiabetes Education Note Diabetes education consult for patient going home with insulin and steroid taper. Assessment of Diabetes Self Management Pt with hx DM2 on oral agents prior to admission. Just started Metformin one month ago. N ow s/p lumbar fusion and foraminotomy. Prior to starting metformin, pt had been working to control BG with lifestyle modification. Pt has glucometer, One Touch, however is older, fro m 2009. Pt denies previous diabetes education. Education Provided Explained rationale for requiring insulin with steroid taper Effect of steroids on physiology of blood sugar management Reviewed insulin types, specific focus with Lantus (including action period) Reviewed how steroid taper would likely result in decreased insulin requirement, and thus a n insulin taper. Reviewed Metformin (how it works, when to take it, possible s/e) Recommended BG checks twice daily (fasting and 2-hours post meal) Target BG levels reviewed Reviewed how to draw and administer insulin using syringe Hypoglycemia (s/sx, tx steps) Encouraged pt to join ADA program at no cost Emphasis placed on optimizing BG control to preserve pancreatic function with insulin Emphasized importance of additional diabetes education (considering pt has not had in past) Materials provided Written materials in [place] Living with Type 2 Diabetes program information (ADA) One Touch glucometer (pt does not need test strips) Education outcome Pt receptive to education and verbalizes understanding of insulin requirement. Pt able to return demonstrate drawing and administering insulin with syringe (using demo supplies) Recommendations Provide pt with Rx for insulin syringes: 30 unit (3/10cc), 6mm, 31G Pt encouraged to keep records of BG and check in with re: Steroid taper and insulin adj ustment needed Plan Follow up with neuro surgery team Follow up with primary care and pt to request diabetes education Maricarmen Gaines, MPH, RD, LD, RN, CDE Inpatient Diabetes Education Pager #[phone] signed by Maricarmen Colindres RN at 12/26/2012 12:39 PM Olga Warner PA - 12/26/2012 9:47 AM PDTFormatting of this note might be different from moraima edwards original. NEUROSURGERY INPATIENT PROGRESS NOTE Hospital Day:3 Author; OLGA BULLOCK PA-C Attending Physician: Sivakumar Tanner MD Interval Hx: Pt. Endorsing incisional, back pain overnight. Tolerating po intake, voiding. +Flatus, no BM yet, denies nausea. Mobilizing. Physical Exam: Last Vitals: BP 106/66 | Pulse 93 | Temp 36.7 C (98.1 F) | RR 12 | Ht 1.676 m (5' 6") | Wt 102.8 kg (226 lb 10.1 oz) | SpO2 98% | BMI 36.6 kg/(m^2) O2 Delivery Device: None (room air) (12/26/12 0440) 24 Hour Vital Min/Max: Systolic (24hrs), Av mmHg, Min:106 mmHg, Max:130 mmHg Diastolic (24hrs), Av mmHg, Min:66 mmHg, Max:89 mmHg Pulse Min: 93 Max: 101 Temp Min: 36.4 C (97.5 F) Max: 36.7 C (98.1 F) Resp Min: 12 Max: 18 SpO2 Min: 95 % Max: 98 % Intake/Output Summary (Last 24 hours) at 12/26/12 0985 Last data filed at 12/25/12 2143 Gross per 24 hour Intake 720 ml Output 0 ml Net 720 ml Labs Results for MARY MERINO ( ) as of 12/26/2012 09:48 Ref. Range 12/26/2012 07:32 SODIUM, PLASMA (LAB) Latest Range: 136-145 mmol/L 137 POTASSIUM, PLASMA (LAB) Latest Range: 3.4-5.0 mmol/L 3.7 POTASSIUM CMNT No range found No Hemo CHLORIDE, PLASMA (LAB) Latest Range: 97-108 mmol/L 104 TOTAL CO2, PLASMA (LAB) Latest Range: 21-32 mmol/L 27 ANION GAP No range found 6 BUN, PLASMA (LAB) Latest Range: 6-20 mg/dL 13 CREATININE PLASMA (LAB) Latest Range: 0.60-1.10 mg/dL 0.49 (L) EGFR - TRINIDADIAN Latest Range: >60 mL/min >60 EGFR NON -TRINIDADIAN Latest Range: >60 mL/min >60 GLUCOSE, PLASMA (LAB) Latest Range: 60-99 mg/dL 205 (H) CALCIUM, PLASMA (LAB) Latest Range: 8.6-10.2 mg/dL 8.5 (L) WHITE CELL COUNT Latest Range: 4.40-11.00 K/cu mm 13.22 (H) RED CELL COUNT Latest Range: 4.00-5.20 M/cu mm 3.55 (L) HEMOGLOBIN Latest Range: 12.0-16.0 g/dL 10.5 (L) HEMATOCRIT Latest Range: 36.0-46.0 % 31.8 (L) MCV Latest Range: 80.0-96.0 fL 89.6 MCHC Latest Range: 33.0-35.5 g/dL 33.0 RDW SD Latest Range: 35.1-46.3 fL 43.9 PLATELET COUNT Latest Range: 150-400 K/cu mm 245 MPV Latest Range: 9.7-12.3 fL 10.4 NRBC% Latest Range: 0.0-0.3 % 0.0 NRBC# Latest Range: 0.00-0.02 K/cu mm 0.00 General: Well-developed, well-nourished female in NAD Incisions: Lumbar and Left flank-C/D/I, no erythema Abd: NTND Neuro: Alert and oriented x 3, PERRL, EOMI, face symmetric, tongue midline Motor: MOTOR SCORE LEFT RIGHT C5 (Shoulder Abduct) 5 5 C6 (Elbow Flex) 5 5 C7 (Elbow Ext) 5 5 C8 (Wrist Ext) 5 5 T1 (Pinky Abd) 5 5 L2 (Hip Flex) 5 5 L3 (Knee Ext) 5 5 L4 (Dorsiflexion) 5 5 L5 (EHL) 5 5 S1 (Plantar Flex) 5 5 Sensation: Light Touch: intact except left anterior thigh impaired Ext: no edema, deformity Psychiatric: Appropriate and cooperative Assessment/Plan: Mary Merino is a 42 y.o. female s/p L3-4 LEFT extreme lateral inte rbody fusion Bilateral L3-4 foraminotomies, L3-S1 revision posterior instrumented fusion -Pt feels ready to d/c home with family today. -Analgesia- increased dosage of Oxycodone, continue Medrol dosepak, Gabapentin, Tizanidine, Tylenol-monitor -DM- Hyperglycemia- appreciate Glycemic team recs, Awaiting recs for discharge. -CV: baseline mild tachycardia chronic, HD stable -Will d/c home after Glycemic team recs received. Patient has follow up scheduled in Neuros urgery Clinic on 01/17/13. Will arrange for FU with PCP within 1-2 weeks time. OLGA BULLOCK PA-C [facility] [address] [facility]/[place] [id number] MEDICATIONS Current Facility-Administered Medications Medication acetaminophen (TYLENOL) tablet 325-650 mg albuterol (PROVENTIL, VENTOLIN) 90 mcg/actuation inhaler 1-2 puff bisacodyl (DULCOLAX) suppository 10 mg dextrose 50 % injection 12.5 g diphenhydrAMINE (BENADRYL) injection 25 mg enoxaparin (LOVENOX) injection 40 mg FLUoxetine (PROZAC) capsule 20 mg gabapentin (NEURONTIN) capsule 300 mg glucagon (GLUCAGEN) injection 1 mg glucose chewable tablet 16 g HYDROmorphone (DILAUDID) injection 0.5-2 mg insulin glargine (LANTUS) injection 25 Units insulin lispro (HUMALOG) injection 12 Units insulin lispro (HUMALOG) injection losartan (COZAAR) tablet 25 mg methylPREDNISolone (MEDROL) tablet 12 mg Followed by methylPREDNISolone (MEDROL) tablet 8 mg Followed by methylPREDNISolone (MEDROL) tablet 4 mg naloxone (NARCAN) injection ondansetron (ZOFRAN) injection 4 mg ondansetron (ZOFRAN) tablet 4 mg oxyCODONE (immediate release) (ROXICODONE) tablet 5-25 mg polyethylene glycol (MIRALAX) powder 17 g senna-docusate (SENOKOT S) 8.6-50 mg 2 tablet sodium phosphates (FLEET) 19-7 gram/118 mL rectal enema 1 Bottle tiZANidine (ZANAFLEX) tablet 2 mg hPeg birch PA - 12/25/2012 6:46 AM PDTFormatting of this note might be different from the orig inal. NEUROSURGERY INPATIENT PROGRESS NOTE Hospital Day:2 Author; OLGA BULLOCK PA-C Attending Physician: Sivakumar Tanner MD Interval Hx: No events overnight. Pt. Endorsing back and left leg pain. Physical Exam: Last Vitals: BP 105/60 | Pulse 100 | Temp 36.5 C (97.7 F) | RR 12 | Ht 1.676 m (5' 6") | Wt 102.8 kg (226 lb 10.1 oz) | SpO2 100% | BMI 36.6 kg/(m^2) O2 Delivery Device: None (room air) (12/25/12 0329) 24 Hour Vital Min/Max: Systolic (24hrs), Av mmHg, Min:100 mmHg, Max:128 mmHg Diastolic (24hrs), Av mmHg, Min:54 mmHg, Max:78 mmHg Pulse Min: 91 Max: 100 Temp Min: 36.4 C (97.5 F) Max: 36.7 C (98 F) Resp Min: 12 Max: 16 SpO2 Min: 96 % Max: 100 % Intake/Output Summary (Last 24 hours) at 12/25/12 0646 Last data filed at 12/25/12 0300 Gross per 24 hour Intake 670 ml Output 1520 ml Net -850 ml Labs Results for MARY MERINO ( ) as of 12/25/2012 06:47 Ref. Range 12/25/2012 01:01 BLOOD GLUCOSE, POC Latest Range: 60-99 mg/dL 249 (H) General: 42 y/o Female NAD Incisions: Lumbar and Left lateral-dressings in place, C/D/I, no erythema CV: Tachycardic, nl S1S2 no MGR's Abd: NTND Neuro: Alert and oriented x 3, PERRL, EOMI, face symmetric, tongue midline Motor: MOTOR SCORE LEFT RIGHT C5 (Shoulder Abduct) 5 5 C6 (Elbow Flex) 5 5 C7 (Elbow Ext) 5 5 C8 (Wrist Ext) 5 5 T1 (Pinky Abd) 5 5 L2 (Hip Flex) 5 5 L3 (Knee Ext) 5 5 L4 (Dorsiflexion) 5 5 L5 (EHL) 5 5 S1 (Plantar Flex) 5 5 Sensation: Light Touch: intact except left anterior thigh impaired Ext: no edema, deformity Psychiatric: Appropriate and cooperative Assessment/Plan: Mary Merino is a 42 y.o. Female s/p L3-4 LEFT extreme lateral inte rbody fusion Bilateral L3-4 foraminotomies, L3-S1 revision posterior instrumented fusion Neurological: Left thigh pain, dysesthesia post op, otherwise intact. Started Medrol dosepa k, Analgesia-pain control appears adequate with current meds, monitor, will start weaning of f MAILING SECTION CLERK-will increase Gabapentin to 300 mg tid increase overtime Cardiovascular: HTN-HD stable, controlled with home med, continue. Baseline tachycardia- mo nitor Pulm: No active issues. HEENT: No active issues. GI: Diabetic oral diet; anti-emetics prn; GI ppx, aggressive bowel regimen / Renal: voiding without problems ID/HO: H/o baseline mild leukocytosis, CBC pending today, monitor Endocrine: DM- elevated BS readings, HgbA1C 9.0 pre op. Appreciate Glycemic team following, patient will need close follow with PCP at d/c Musculoskeletal / Skin: Routine decubitus ulcer prevention. Wound care: Drain removed. Rehab: Continue PT/OT DVT prophylaxis: mobilize out of bed; SCDs, start prophylactic lovenox tonight Disposition: Pending clinical course, pain management, anticipate d/c to home in 1-2 days. OLGA BULLOCK PA-C [facility] [address] [address]/[place] [phone] [id number] MEDICATIONS Current Facility-Administered Medications Medication acetaminophen (TYLENOL) tablet 325-650 mg albuterol (PROVENTIL, VENTOLIN) 90 mcg/actuation inhaler 1-2 puff bisacodyl (DULCOLAX) suppository 10 mg dextrose 50 % injection 12.5 g diphenhydrAMINE (BENADRYL) injection 25 mg enoxaparin (LOVENOX) injection 40 mg FLUoxetine (PROZAC) capsule 20 mg gabapentin (NEURONTIN) capsule 300 mg glucagon (GLUCAGEN) injection 1 mg glucose chewable tablet 16 g HYDROmorphone (DILAUDID) injection 0.5-2 mg HYDROmorphone 25 mg in preservative free NaCl 0.9% 50 mL MAILING SECTION CLERK infusion insulin glargine (LANTUS) injection 20 Units insulin lispro (HUMALOG) injection 7 Units insulin lispro (HUMALOG) injection losartan (COZAAR) tablet 25 mg methylPREDNISolone (MEDROL) tablet 20 mg Followed by methylPREDNISolone (MEDROL) tablet 16 mg Followed by methylPREDNISolone (MEDROL) tablet 12 mg Followed by methylPREDNISolone (MEDROL) tablet 8 mg Followed by methylPREDNISolone (MEDROL) tablet 4 mg naloxone (NARCAN) injection oxyCODONE (immediate release) (ROXICODONE) tablet 5-15 mg polyethylene glycol (MIRALAX) powder 17 g senna-docusate (SENOKOT S) 8.6-50 mg 2 tablet ThPeg birch PA - 12/24/2012 6:54 AM PDTFormatting of this note might be different from the orig inal. NEUROSURGERY INPATIENT PROGRESS NOTE Hospital Day:1 Author; OLGA BULLOCK PA-C Attending Physician: Sivakumar Tanner MD Interval Hx: No events overnight. Endorsing left groin, thigh numbness, pain. Physical Exam: Last Vitals: BP 110/58 | Pulse 96 | Temp 36.5 C (97.7 F) | RR 16 | Ht 1.676 m (5' 6") | Wt 102.8 kg (226 lb 10.1 oz) | SpO2 93% | BMI 36.6 kg/(m^2) O2 Delivery Device: None (room air) (12/24/12 0300) 24 Hour Vital Min/Max: Systolic (24hrs), Av mmHg, Min:96 mmHg, Max:134 mmHg Diastolic (24hrs), Av mmHg, Min:46 mmHg, Max:89 mmHg Pulse Min: 96 Max: 115 Temp Min: 36.3 C (97.4 F) Max: 37.1 C (98.8 F) Resp Min: 12 Max: 23 SpO2 Min: 93 % Max: 100 % Intake/Output Summary (Last 24 hours) at 12/24/12 0654 Last data filed at 12/24/12 0600 Gross per 24 hour Intake 6730 ml Output 2560 ml Net 4170 ml HMV 160 Results for MARY MERINO ( ) as of 12/24/2012 06:55 Ref. Range 12/23/2012 22:22 BLOOD GLUCOSE, POC Latest Range: 60-99 mg/dL 257 (H) Labs [facility] and CDC pending. General: 42 y/o Female NAD Incisions: Lumbar and Left lateral-dressings in place, C/D/I, no erythema, HMV x 1 CV: Tachycardic, nl S1S2 no MGR's Abd: NTND Neuro: Alert and oriented x 3, PERRL, EOMI, face symmetric, tongue midline Motor: MOTOR SCORE LEFT RIGHT C5 (Shoulder Abduct) 5 5 C6 (Elbow Flex) 5 5 C7 (Elbow Ext) 5 5 C8 (Wrist Ext) 5 5 T1 (Pinky Abd) 5 5 L2 (Hip Flex) 4 5 L3 (Knee Ext) 5 5 L4 (Dorsiflexion) 5 5 L5 (EHL) 5 5 S1 (Plantar Flex) 5 5 Sensation: Light Touch: intact except left anterior thigh impaired Ext: no deformity, edema Psychiatric: Appropriate and cooperative Assessment/Plan: Mary Merino is a 42 y.o. female POD # 1 s/p L3-4 LEFT extreme late ral interbody fusion Bilateral L3-4 foraminotomies, L3-S1 revision posterior instrumented fu salvador 12/23/2012 Neurological: Left thigh pain, dysesthesia post op, otherwise intact. Analgesia-pain contr ol appears adequate with current meds, monitor, Start weaning off MAILING SECTION CLERK-will increase Gabapent in to 300 mg tid increase overtime Cardiovascular: HTN-HD stable, controlled with home med, continue. Baseline tachycardia- mo nitor Pulm: No active issues. HEENT: No active issues. GI: Diabetic oral diet; anti-emetics prn; GI ppx, aggressive bowel regimen / Renal: Nicole removed this am ID/HO: H/o baseline mild leukocytosis, CBC pending today, monitor Endocrine: DM- elevated BS readings, HgbA1C 9.0 pre op. Increased SSI to aggressive, awaiti ng am labs, Glycemic team consult if continues elevated. Musculoskeletal / Skin: Routine decubitus ulcer prevention. Wound care: continue HMV for now, will discuss timing of d/c with staff. Rehab: PT/OT DVT prophylaxis: mobilize out of bed; SCDs, start prophylactic lovenox at 48 hrs post op, a nd when HMV out Disposition: Pending clinical course, pain management. OLGA BULLOCK PA-C [facility] [address] [address]/[place] [id number] MEDICATIONS Current Facility-Administered Medications Medication acetaminophen (TYLENOL) tablet 325-650 mg albuterol (PROVENTIL, VENTOLIN) 90 mcg/actuation inhaler 1-2 puff bisacodyl (DULCOLAX) suppository 10 mg ceFAZolin (ANCEF) IV 2 g dextrose 50 % injection 12.5 g diphenhydrAMINE (BENADRYL) injection 25 mg fentaNYL citrate (PF) (SUBLIMAZE) injection 10-40 mcg FLUoxetine (PROZAC) capsule 20 mg gabapentin (NEURONTIN) capsule 300 mg glucagon (GLUCAGEN) injection 1 mg glucose chewable tablet 16 g HYDROmorphone (DILAUDID) injection HYDROmorphone 25 mg in preservative free NaCl 0.9% 50 mL MAILING SECTION CLERK infusion insulin lispro (HUMALOG) injection lactated ringers IV losartan (COZAAR) tablet 25 mg naloxone (NARCAN) injection oxyCODONE (immediate release) (ROXICODONE) tablet 5-15 mg polyethylene glycol (MIRALAX) powder 17 g Or polyethylene glycol (MIRALAX) powder 17 g senna-docusate (SENOKOT S) 8.6-50 mg 1 tablet Park Mcgovern M D,PhD - 12/23/2012 6:49 PM PDTNeurosurgery Post-op Check Note S/p XLIF + revision L3-S1 PIF for lumbar spondylosis Ht 1.676 m (5' 6"), Wt 102.8 kg (226 lb 10.1 oz), BP 96/61, Pulse 105, Temperature 37.1 C (98.8 F), RR 16, SpO2 97%, BMI 36.6 kg/(m^2). AAOX3, follows commands, in considerable pain PERRLA, EOMI, TML, face sym. Move all extremities with good strength. No drift or droop. Sensation grossly intact Incision covered with clean dry dressing A/P: Mary Merino 42 y.o. POD#0 s/p the above procedure. Stable. 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 PARK SABILLON MD,PhD pgr [id number] documented in this e ncounter Plan of Treatment + + +--------+ + + | Name | Type | Priori | Associated Diagnoses | Date/Time | | | | ty | | | + + +--------+ + + | X-RAY PORTABLE SPINE | Imaging | Routin | | 12/23/2012 6:19 PM | | LUMBOSACRAL 2 VIEWS | Standing | e | | PDT | + + +--------+ + + | OR FLUOROSCOPY > 1 | Imaging | Routin | | 12/23/2012 6:30 PM | | HOUR | | e | | PDT | + + +--------+ + + + + +--------+ + + | Name | Type | Priori | Associated Diagnoses | Order Schedule | | | | ty | | | + + +--------+ + + | X-RAY PORTABLE SPINE | Imaging | Routin | | One Time for 1 | | LUMBOSACRAL 2 VIEWS | Standing | e | | Occurrences starting | | | | | | 12/23/2012 until | | | | | | 12/23/2012 | + + +--------+ + + | OR FLUOROSCOPY > 1 | Imaging | Routin | | One Time for 1 | | HOUR | | e | | Occurrences starting | | | | | | 12/23/2012 until | | | | | | 12/23/2012 | + + +--------+ + + documented as of this encounter Procedures + +--------+ + + + | Procedure Name | Priori | Date/Time | Associated Diagnosis | Comments | | | ty | | | | + +--------+ + + + | PROCEDURE NOTE | Routin | 04/07/2015 | | Results for this | | | e | 9:02 PM | | procedure are in the | | | | PST | | results section. | + +--------+ + + + | PROCEDURE NOTE | Routin | 04/07/2015 | | Results for this | | | e | 8:59 PM | | procedure are in the | | | | PST | | results section. | + +--------+ + + + | CAPILLARY BLOOD | Routin | 12/26/2012 | | Results for this | | GLUCOSE (NO CHG), | e | 2:54 PM | | procedure are in the | | POC | | PDT | | results section. | + +--------+ + + + | CAPILLARY BLOOD | Routin | 12/26/2012 | | Results for this | | GLUCOSE (NO CHG), | e | 9:49 AM | | procedure are in the | | POC | | PDT | | results section. | + +--------+ + + + | CBC (HEMOGRAM) ONLY | Urgent | 12/26/2012 | | Results for this | | | | 7:32 AM | | procedure are in the | | | | PDT | | results section. | + +--------+ + + + | BASIC METABOLIC SET | Urgent | 12/26/2012 | | Results for this | | (NA, K, CL, TCO2, | | 7:32 AM | | procedure are in the | | BUN, CR, GLU, CA) | | PDT | | results section. | + +--------+ + + + | CBC ONLY | Urgent | 12/26/2012 | | Results for this | | | | 7:32 AM | | procedure are in the | | | | PDT | | results section. | + +--------+ + + + | CAPILLARY BLOOD | Routin | 12/26/2012 | | Results for this | | GLUCOSE (NO CHG), | e | 1:19 AM | | procedure are in the | | POC | | PDT | | results section. | + +--------+ + + + | CAPILLARY BLOOD | Routin | 12/25/2012 | | Results for this | | GLUCOSE (NO CHG), | e | 9:43 PM | | procedure are in the | | POC | | PDT | | results section. | + +--------+ + + + | CAPILLARY BLOOD | Routin | 12/25/2012 | | Results for this | | GLUCOSE (NO CHG), | e | 3:10 PM | | procedure are in the | | POC | | PDT | | results section. | + +--------+ + + + | CAPILLARY BLOOD | Routin | 12/25/2012 | | Results for this | | GLUCOSE (NO CHG), | e | 10:31 AM | | procedure are in the | | POC | | PDT | | results section. | + +--------+ + + + | CBC (HEMOGRAM) ONLY | Urgent | 12/25/2012 | | Results for this | | | | 5:38 AM | | procedure are in the | | | | PDT | | results section. | + +--------+ + + + | BASIC METABOLIC SET | Urgent | 12/25/2012 | | Results for this | | (NA, K, CL, TCO2, | | 5:38 AM | | procedure are in the | | BUN, CR, GLU, CA) | | PDT | | results section. | + +--------+ + + + | CBC ONLY | Urgent | 12/25/2012 | | Results for this | | | | 5:38 AM | | procedure are in the | | | | PDT | | results section. | + +--------+ + + + | CAPILLARY BLOOD | Routin | 12/25/2012 | | Results for this | | GLUCOSE (NO CHG), | e | 1:01 AM | | procedure are in the | | POC | | PDT | | results section. | + +--------+ + + + | CAPILLARY BLOOD | Routin | 12/24/2012 | | Results for this | | GLUCOSE (NO CHG), | e | 9:21 PM | | procedure are in the | | POC | | PDT | | results section. | + +--------+ + + + | CAPILLARY BLOOD | Routin | 12/24/2012 | | Results for this | | GLUCOSE (NO CHG), | e | 5:51 PM | | procedure are in the | | POC | | PDT | | results section. | + +--------+ + + + | CT SPINE LUMBAR WO | Routin | 12/24/2012 | | Results for this | | CONTRAST | e | 5:22 PM | | procedure are in the | | | | PDT | | results section. | + +--------+ + + + | CAPILLARY BLOOD | Routin | 12/24/2012 | | Results for this | | GLUCOSE (NO CHG), | e | 10:59 AM | | procedure are in the | | POC | | PDT | | results section. | + +--------+ + + + | CAPILLARY BLOOD | Routin | 12/24/2012 | | Results for this | | GLUCOSE (NO CHG), | e | 9:20 AM | | procedure are in the | | POC | | PDT | | results section. | + +--------+ + + + | OPERATION RECORD | | 12/24/2012 | | Results for this | | | | 8:48 AM | | procedure are in the | | | | PDT | | results section. | + +--------+ + + + | CBC (HEMOGRAM) ONLY | Urgent | 12/24/2012 | | Results for this | | | | 6:31 AM | | procedure are in the | | | | PDT | | results section. | + +--------+ + + + | BASIC METABOLIC SET | Urgent | 12/24/2012 | | Results for this | | (NA, K, CL, TCO2, | | 6:31 AM | | procedure are in the | | BUN, CR, GLU, CA) | | PDT | | results section. | + +--------+ + + + | CBC ONLY | Urgent | 12/24/2012 | | Results for this | | | | 6:31 AM | | procedure are in the | | | | PDT | | results section. | + +--------+ + + + | CAPILLARY BLOOD | Routin | 12/23/2012 | | Results for this | | GLUCOSE (NO CHG), | e | 10:22 PM | | procedure are in the | | POC | | PDT | | results section. | + +--------+ + + + | CONFIRMATORY ABO/RH | Urgent | 12/23/2012 | | Results for this | | | | 2:39 PM | | procedure are in the | | | | PDT | | results section. | + +--------+ + + + | ANTERIOR-LATERAL | Electi | 12/23/2012 | Thoracic or | | | INTERBODY FUSION | ve | 10:30 AM | lumbosacral neuritis | | | | Surgic | PDT | or radiculitis, | | | | al | | unspecified Spinal | | | | | | stenosis, lumbar | | | | | | region, without | | | | | | neurogenic | | | | | | claudication | | + +--------+ + + + | POSTERIOR SPINAL | Electi | 12/23/2012 | Thoracic or | | | FUSION LUMBAR | ve | 10:30 AM | lumbosacral neuritis | | | | Surgic | PDT | or radiculitis, | | | | al | | unspecified Spinal | | | | | | stenosis, lumbar | | | | | | region, without | | | | | | neurogenic | | | | | | claudication | | + +--------+ + + + | ANTIBODY SCREEN | Urgent | 12/23/2012 | | Results for this | | | | 10:06 AM | | procedure are in the | | | | PDT | | results section. | + +--------+ + + + | TYPE AND SCREEN | Urgent | 12/23/2012 | | Results for this | | | | 10:06 AM | | procedure are in the | | | | PDT | | results section. | + +--------+ + + + | ABO & RH TYPE | Urgent | 12/23/2012 | | Results for this | | | | 10:06 AM | | procedure are in the | | | | PDT | | results section. | + +--------+ + + + | INTRAOPERATIVE NEURO | Routin | 12/23/2012 | | Results for this | | MONITORING | e | | | procedure are in the | | | | | | results section. | + +--------+ + + + documented in this encounter Results PROCEDURE NOTE (04/07/2015 9:02 PM PST)PROCEDURE NOTE (04/07/2015 8:59 PM PST) + + | Transcriptions | + + | Other, Faculty - 12/30/2012 10:10 AM PDT | + + CAPILLARY BLOOD GLUCOSE (NO CHG), POC (12/26/2012 2:54 PM PDT) + +---------+ + + + | Component | Value | Ref Range | Performed | Pathologist | | | | | At | Signature | + +---------+ + + + | BLOOD | 271 (H) | 60 - 99 mg/dL | [facility] | | | GLUCOSE, | | | [facility] | | | POC | | | [facility] | | | | | | OF CARE | | | | | | TESTS | | + +---------+ + + + + + | Specimen | + + | | + + + + + + + | Performing | Address | City/State/Zipcode | Phone Number | | Organization | | | | + + + + + | [facility] | [address] | [place], [place] | | | [facility] | [address] | [phone] | | | TESTS | | | | + + + + + CAPILLARY BLOOD GLUCOSE (NO CHG), POC (12/26/2012 9:49 AM PDT) + +---------+ + + + | Component | Value | Ref Range | Performed | Pathologist | | | | | At | Signature | + +---------+ + + + | BLOOD | 238 (H) | 60 - 99 mg/dL | [facility] | | | GLUCOSE, | | | [facility] | | | POC | | | [facility] | | | | | | OF CARE | | | | | | TESTS | | + +---------+ + + + + + | Specimen | + + | | + + + + + + + | Performing | Address | City/State/Zipcode | Phone Number | | Organization | | | | + + + + + | [facility] | [address] | [place], [place] | | | [facility] | [address] | [address] | | | TESTS | | | | + + + + + CBC (HEMOGRAM) ONLY (12/26/2012 7:32 AM PDT) + + + + + + | Component | Value | Ref Range | Performed | Pathologist | | | | | At | Signature | + + + + + + | WHITE CELL | 13.22 (H) | 4.40 - 11.00 | [facility] | | | COUNT | | K/cu mm | LABORATORY | | | | | | SERVICES, | | | | | | CORE | | + + + + + + | RED CELL | 3.55 (L) | 4.00 - 5.20 | [facility] | | | COUNT | | M/cu mm | LABORATORY | | | | | | SERVICES, | | | | | | CORE | | + + + + + + | HEMOGLOBIN | 10.5 (L) | 12.0 - 16.0 | [facility] | | | | | g/dL | LABORATORY | | | | | | SERVICES, | | | | | | CORE | | + + + + + + | HEMATOCRIT | 31.8 (L) | 36.0 - 46.0 % | [facility] | | | | | | LABORATORY | | | | | | SERVICES, | | | | | | CORE | | + + + + + + | MCV | 89.6 | 80.0 - 96.0 fL | [facility] | | | | | | LABORATORY | | | | | | SERVICES, | | | | | | CORE | | + + + + + + | MCHC | 33.0 | 33.0 - 35.5 | [facility] | | | | | g/dL | LABORATORY | | | | | | SERVICES, | | | | | | CORE | | + + + + + + | RDW SD | 43.9 | 35.1 - 46.3 fL | [facility] | | | | | | LABORATORY | | | | | | SERVICES, | | | | | | CORE | | + + + + + + | PLATELET | 245 | 150 - 400 K/cu | [facility] | | | COUNT | | mm | LABORATORY | | | | | | SERVICES, | | | | | | CORE | | + + + + + + | MPV | 10.4 | 9.7 - 12.3 fL | [facility] [...] | + + + + + | [facility] | [address] | [place] [address] | | | SERVICES, CORE | [address] | | | + + + + + BASIC METABOLIC SET (NA, K, CL, TCO2, BUN, CR, GLU, CA) (12/26/2012 7:32 AM PDT) + + + + + + | Component | Value | Ref Range | Performed | Pathologist | | | | | At | Signature | + + + + + + | GLUCOSE, | 205 (H) | 60 - 99 mg/dL | [facility] | | | PLASMA | | | LABORATORY | | | (LAB) | | | SERVICES, | | | | | | CORE | | + + + + + + | BUN, PLASMA | 13 | 6 - 20 mg/dL | [facility] | | | (LAB) | | | LABORATORY | | | | | | SERVICES, | | | | | | CORE | | + + + + + + | CREATININE | 0.49 (L) | 0.60 - 1.10 | [facility] | | | PLASMA | | mg/dL | LABORATORY | | | (LAB) | | | SERVICES, | | | | | | CORE | | + + + + + + | EGFR | >60 | >60 mL/min | [facility] | | | - | | | LABORATORY | | | [facility] | | | SERVICES, | | | | | | CORE | | + + + + + + | EGFR NON | >60 | >60 mL/min | [facility] | | | -RADHA | | | LABORATORY | | | R[facility] | | | SERVICES, | | | | | | CORE | | + + + + + + | SODIUM, | 137 | 136 - 145 | [facility] | | | PLASMA | | mmol/L | LABORATORY | | | (LAB) | | | SERVICES, | | | | | | CORE | | + + + + + + | POTASSIUM, | 3.7 | 3.4 - 5.0 | [facility] | [...] + + + | TOTAL CO2, | 27 | 21 - 32 mmol/L | [facility] | | | PLASMA | | | LABORATORY | | | (LAB) | | | SERVICES, | | | | | | CORE | | + + + + + + | CALCIUM, | 8.5 (L) | 8.6 - 10.2 | [facility] | | | PLASMA | | mg/dL | LABORATORY | | | (LAB) | | | SERVICES, | | | | | | CORE | | + + + + + + | ANION GAP | 6 | mmol/L | [facility] | | | [...] the MDRD equation recommended by the | [facility] | | National Kidney Disease Education Program. Estimated GFR | LABORATORY | | Interpretive Information: <60 mL/min/1.73 sq m | [facility] | | Chronic Kidney Disease <15 mL/min/1.73 [...] Rapidly changing kidney | | | function | | + + + + + + + + | Performing | Address | City/State/Zipcode | Phone Number | | Organization | | | | + + + + + | [facility] | [address] | [place] [address] | | | SERVICES, CORE | [address] | | | + + + + + CAPILLARY BLOOD GLUCOSE (NO CHG), POC (12/26/2012 1:19 AM PDT) + +---------+ + + + | Component | Value | Ref Range | Performed | Pathologist | | | | | At | Signature | + +---------+ + + + | BLOOD | 252 (H) | 60 - 99 mg/dL | [facility] | | | GLUCOSE, | | | [facility] | | | POC | | | [facility] | | | | | | OF CARE | | | | | | TESTS | | + +---------+ + + + + + | Specimen | + + | | + + + + + + + | Performing | Address | City/State/Zipcode | Phone Number | | Organization | | | | + + + + + | [facility] | [address] | [place], [place] | | | [facility] | [facility] | [phone] | | | TESTS | | | | + + + + + CAPILLARY BLOOD GLUCOSE (NO CHG), POC (12/25/2012 9:43 PM PDT) + +---------+ + + + | Component | Value | Ref Range | Performed | Pathologist | | | | | At | Signature | + +---------+ + + + | BLOOD | 151 (H) | 60 - 99 mg/dL | [facility] | | | GLUCOSE, | | | [facility] | | | POC | | | [facility] | | | | | | OF CARE | | | | | | TESTS | | + +---------+ + + + + + | Specimen | + + | | + + + + + + + | Performing | Address | City/State/Zipcode | Phone Number | | Organization | | | | + + + + + | [facility] | [address] | [place], [place] | | | [facility] | [address] | [phone] | | | TESTS | | | | + + + + + CAPILLARY BLOOD GLUCOSE (NO CHG), POC (12/25/2012 3:10 PM PDT) + +---------+ + + + | Component | Value | Ref Range | Performed | Pathologist | | | | | At | Signature | + +---------+ + + + | BLOOD | 270 (H) | 60 - 99 mg/dL | [facility] | | | GLUCOSE, | | | [facility] | | | POC | | | [facility] | | | | | | OF CARE | | | | | | TESTS | | + +---------+ + + + + + | Specimen | + + | | + + + + + + + | Performing | Address | City/State/Zipcode | Phone Number | | Organization | | | | + + + + + | [facility] | [address] | [place], [place] | | | [facility] | [address] | [address] | | | TESTS | | | | + + + + + CAPILLARY BLOOD GLUCOSE (NO CHG), POC (12/25/2012 10:31 AM PDT) + +---------+ + + + | Component | Value | Ref Range | Performed | Pathologist | | | | | At | Signature | + +---------+ + + + | BLOOD | 164 (H) | 60 - 99 mg/dL | [facility] | | | GLUCOSE, | | | [facility] | | | POC | | | [facility] | | | | | | OF CARE | | | | | | TESTS | | + +---------+ + + + + + | Specimen | + + | | + + + + + + + | Performing | Address | City/State/Zipcode | Phone Number | | Organization | | | | + + + + + | [facility] | [address] | [place], [place] | | | [facility] | [address] | [address] | | | TESTS | | | | + + + + + CBC (HEMOGRAM) ONLY (12/25/2012 5:38 AM PDT) + + + + + + | Component | Value | Ref Range | Performed | Pathologist | | | | | At | Signature | + + + + + + | WHITE CELL | 14.83 (H) | 4.40 - 11.00 | [facility] | | | COUNT | | K/cu mm | LABORATORY | | | | | | SERVICES, | | | | | | CORE | | + + + + + + | RED CELL | 3.40 (L) | 4.00 - 5.20 | [facility] | | | COUNT | | M/cu mm | LABORATORY | | | | | | SERVICES, | | | | | | CORE | | + + + + + + | HEMOGLOBIN | 10.3 (L) | 12.0 - 16.0 | [facility] | | | | | g/dL | LABORATORY | | | | | | SERVICES, | | | | | | CORE | | + + + + + + | HEMATOCRIT | 31.0 (L) | 36.0 - 46.0 % | [facility] | | | | | | LABORATORY | | | | | | SERVICES, | | | | | | CORE | | + + + + + + | MCV | 91.2 | 80.0 - 96.0 fL | [facility] | | | | | | LABORATORY | | | | | | SERVICES, | | | | | | CORE | | + + + + + + | MCHC | 33.2 | 33.0 - 35.5 | [facility] | | | | | g/dL | LABORATORY | | | | | | SERVICES, | | | | | | CORE | | + + + + + + | RDW SD | 45.1 | 35.1 - 46.3 fL | [facility] | | | | | | LABORATORY | | | | | | SERVICES, | | | | | | CORE | | + + + + + + | PLATELET | 219 | 150 - 400 K/cu | [facility] | | | COUNT | | mm | LABORATORY | | | | | | SERVICES, | | | | | | CORE | | + + + + + + | MPV | 10.6 | 9.7 - 12.3 fL | [facility] [...] on 09/19/12. | LABORATORY | | | [facility] | + + + + + + + + | Performing | Address | City/State/Zipcode | Phone Number | | Organization | | | | + + + + + | [facility] | [address] | [place] [address] | | | SERVICES, [facility] | [address] | | | + + + + + BASIC METABOLIC SET (NA, K, CL, TCO2, BUN, CR, GLU, CA) (12/25/2012 5:38 AM PDT) + + + + + + | Component | Value | Ref Range | Performed | Pathologist | | | | | At | Signature | + + + + + + | GLUCOSE, | 271 (H) | 60 - 99 mg/dL | [facility] | | | PLASMA | | | LABORATORY | | | (LAB) | | | SERVICES, | | | | | | CORE | | + + + + + + | BUN, PLASMA | 11 | 6 - 20 mg/dL | [facility] [...] | | | LABORATORY | | | [facility] | | | SERVICES, | | | [...] + + + + | POTASSIUM, | 3.5 | 3.4 - 5.0 | [facility] | | | PLASMA | | mmol/L | LABORATORY | | | (LAB) | | | SERVICES, | | | | | | CORE | | + + + + + + | CHLORIDE, | 103 | 97 - 108 mmol/L | [facility] | | | PLASMA | | | LABORATORY | | | (LAB) | | | SERVICES, | | | | | | CORE | | + + + + + + | TOTAL CO2, | 27 | 21 - 32 mmol/L | [facility] | | | PLASMA | | | LABORATORY | | | (LAB) | | | SERVICES, | | | | | | CORE | | + + + + + + | CALCIUM, | 8.5 (L) | 8.6 - 10.2 | [facility] | | | PLASMA | | mg/dL | LABORATORY | | | (LAB) | | | SERVICES, | | | | | | CORE | | + + + + + + | ANION GAP | 9 | mmol/L | [facility] | | | [...] Rapidly changing kidney | | | function | | + + + + + + + + | Performing | Address | City/State/Zipcode | Phone Number | | Organization | | | | + + + + + | [facility] | [address] | [place] [address] | | | SERVICES, CORE | [address] | | | + + + + + CAPILLARY BLOOD GLUCOSE (NO CHG), POC (12/25/2012 1:01 AM PDT) + +---------+ + + + | Component | Value | Ref Range | Performed | Pathologist | | | | | At | Signature | + +---------+ + + + | BLOOD | 249 (H) | 60 - 99 mg/dL | [facility] | | | GLUCOSE, | | | [facility] | | | POC | | | [facility] | | | | | | OF CARE | | | | | | TESTS | | + +---------+ + + + + + | Specimen | + + | | + + + + + + + | Performing | Address | City/State/Zipcode | Phone Number | | Organization | | | | + + + + + | [facility] | [address] | [place], [place] | | | [facility] | [facility] | [phone] | | | TESTS | | | | + + + + + CAPILLARY BLOOD GLUCOSE (NO CHG), POC (12/24/2012 9:21 PM PDT) + +---------+ + + + | Component | Value | Ref Range | Performed | Pathologist | | | | | At | Signature | + +---------+ + + + | BLOOD | 189 (H) | 60 - 99 mg/dL | [facility] | | | GLUCOSE, | | | [facility] | | | POC | | | [place] | | | | | | OF CARE | | | | | | TESTS | | + +---------+ + + + + + | Specimen | + + | | + + + + + + + | Performing | Address | City/State/Zipcode | Phone Number | | Organization | | | | + + + + + | [facility] | [address] | [place], [place] | | | [facility] [place] | [facility] | [phone] | | | TESTS | | | | + + + + + CAPILLARY BLOOD GLUCOSE (NO CHG), POC (12/24/2012 5:51 PM PDT) + +---------+ + + + | Component | Value | Ref Range | Performed | Pathologist | | | | | At | Signature | + +---------+ + + + | BLOOD | 242 (H) | 60 - 99 mg/dL | [facility] - | | | GLUCOSE, | | | [facility] | | | POC | | | [facility] | | | | | | OF CARE | | | | | | TESTS | | + +---------+ + + + + + | Specimen | + + | | + + + + + + + | Performing | Address | City/State/Zipcode | Phone Number | | Organization | | | | + + + + + | [facility] | [address] | [place], [place] | | | [facility] | [address] | [phone] | | | TESTS | | | | + + + + + CT SPINE LUMBAR WO CONTRAST (12/24/2012 5:22 PM PDT) + + + + + + | Component | Value | Ref Range | Performed | Pathologist | | | | | At | Signature | + + + + + + | CT LUMBAR | EXAM: CT Lumbar spine | | | | | SPINE WO | without contrast | | | | | CONTRAST | HISTORY: Evaluate fusion | | | | | | COMPARISON: 10/02/12 | | | | | | TECHNIQUE: CT lumbar | | | | | | spine without contrast, | | | | | | with 2D multiplanar | | | | | | reformations. FINDINGS: | | | | | | Alignment: Normal | | | | | | Vertebrae: | | | | | | Postsurgical changes are | | | | | | noted with anterior | | | | | | interbody fusiongrafts | | | | | | L3 through S1. The | | | | | | L3-4 graft is in | | | | | | adequate since the | | | | | | previous studywith | | | | | | widening of the | | | | | | intervertebral disk | | | | | | space. Posterior | | | | | | fusion hardware fromL3 | | | | | | through S1 is again | | | | | | noted. Laminectomy | | | | | | defects from L3 through | | | | | | the L5-A0lalztnusbc | | | | | | levels. Fusion graft | | | | | | material surrounding | | | | | | rods and at the L3 | | | | | | level. Pedicle screws at | | | | | | L3 unremarkable. | | | | | | Posterior soft tissue | | | | | | changes as | | | | | | expectedpostoperatively. | | | | | | Canal is not well | | | | | | violated secondary to | | | | | | beam | | | | | | hardeningartifact.Pedicl | | | | | | e screws at L4 | | | | | | unremarkable. There | | | | | | appears to be partial | | | | | | incorporationof | | | | | | interbody fusion graft | | | | | | at L4-5 area and | | | | | | posterior soft tissue | | | | | | changessuperficial to | | | | | | the laminectomy defect | | | | | | as expected | | | | | | postoperatively.Pedicle | | | | | | screws at L5 left ankle | | | | | | screw minimally | | | | | | laterally positioned.At | | | | | | the S1 level there | | | | | | appears to been removal | | | | | | of previous screws with | | | | | | insertionof new pedicle | | | | | | screws left screw now | | | | | | lies in good position. | | | | | | Partialincorporation | | | | | | of interbody fusion | | | | | | graft. Paraspinal | | | | | | soft tissues: Expected | | | | | | postoperative changes | | | | | | with edema within | | | | | | theposterior soft | | | | | | tissues and paraspinal | | | | | | soft tissues. Locules | | | | | | of air as welllikely | | | | | | some fluid and edema at | | | | | | the site of the | | | | | | laminectomy is noted. | | | | | | IMPRESSION: | | | | | | Postoperative changes | | | | | | with extension of | | | | | | posterior fusion rods | | | | | | and screws to theL3 | | | | | | level. Interbody | | | | | | fusion graft at L3-4 as | | | | | | described. Attending | | | | | | Radiologists: NICKY | | | | | | REENA PITTSuthor: | | | | | | NICKY PITTS MD I | | | | | | have personally viewed | | | | | | this procedure/exam, | | | | | | reviewed this report, | | | | | | and madechanges to it | | | | | | where appropriate. | | | | | | Final/Electronically | | | | | | signed / NICKY | | | | | | GISSELLE 12/24/2012 | | | | | | 19:38 PM | | | | + + [...] | | | + +---------+ + + CAPILLARY BLOOD GLUCOSE (NO CHG), POC (12/24/2012 10:59 AM PDT) + +---------+ + + + | Component | Value | Ref Range | Performed | Pathologist | | | | | At | Signature | + +---------+ + + + | BLOOD | 192 (H) | 60 - 99 mg/dL | [facility] - | | | GLUCOSE, | | | [facility] | | | POC | | | [facility] | | | | | | OF CARE | | | | | | TESTS | | + +---------+ + + + + + | Specimen | + + | | + + + + + + + | Performing | Address | City/State/Zipcode | Phone Number | | Organization | | | | + + + + + | [facility] | [address] | [place], [place] | | | [facility] [place] | [facility] | [phone] | | | TESTS | | | | + + + + + CAPILLARY BLOOD GLUCOSE (NO CHG) POC (12/24/2012 9:20 AM PDT) + +---------+ + + + | Component | Value | Ref Range | Performed | Pathologist | | | | | At | Signature | + +---------+ + + + | BLOOD | 222 (H) | 60 - 99 mg/dL | [facility] - | | | GLUCOSE, | | | [facility] | | | POC | | | [place] [place] | | | | | | OF CARE | | | | | | TESTS | | + +---------+ + + + + + | Specimen | + + | | + + + + + + + | Performing | Address | City/State/Zipcode | Phone Number | | Organization | | | | + + + + + | [facility] | [address] | [place], [place] | | | [facility] | [address] | [phone] | | | TESTS | | | | + + + + + OPERATION RECORD (12/24/2012 8:48 AM PDT) + + | Transcriptions | + + | Sivakumar Tanner MD - 12/23/2012 11:22 PM PDT Date of Service: 12/23/2012ttending | | Surgeon: Sivakumar Tanner MD Special Agent(s): MD Juwan Ruano MD | | Preoperative Diagnoses: 1. Adjacent level degenerative disk disease at L3-4.2. L4 | | radiculopathy.3. Spondylosis.4. Herniated nucleus pulposus at L3-4.Postoperative | | Diagnoses: 1. Adjacent level degenerative disk disease at L3-4.2. L4 radiculopathy.3. | | Spondylosis.4. Herniated nucleus pulposus at L3-4.Procedures Performed: 1. Direct | | lateral interbody fusion using [place] of L3-4 on the left lateral approach.2. A | | posterior L3-S1 posterior instrumented fusion and removal of old hardware at L4, L5, and | | S1 bilaterally. 3. Revision of left-sided S1 screw.4. Decompression, including | | laminectomies and bilateral neural foraminotomies of L3-4 with bilateral foraminotomies | | L2-3 and L3-4 through revision scar tissue close.5. Posterolateral arthrodesis.6. | | Navigated pedicle screw placement of new screws at L3 bilaterally.7. Use of | | intraoperative neuromonitoring. 8. Placement of a Hemovac drain.Indications: This is a | | 42-year-old female who presented to clinic with severe right and left lower extremity | | radicular symptoms of the thigh. 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 She | | had significant compression bilaterally at L4 with a collapsed disk space and | | significant motor changes of L3 and 4. Therefore, she was indicated for a lateral | | fusion using a DLIF and posterior instrumented fusion.Procedure In Detail: The patient | | was identified in the preoperative holding area. Consent was signed. A full PARQ was | | held. All questions were answered to her satisfaction. She was then brought back to | | the operating room, placed on table in a supine position, intubated via general | | endotracheal anesthesia by the Anesthesia Team. For the first portion of the case, she | | was placed in the right lateral decubitus position for the left side facing up. She was | | placed in true lateral position. The bed was broken in the center to allow opening of | | the iliocostal angle. Once we had done this, we used our x-rays to identify the correct | | levels. We marked on the skin. We prepped and draped in the usual sterile fashion, | | infiltrated with local anesthetic. We did a timeout to ensure correct patient, | | procedure, and location. All parties were in agreement. The incision overlying the | | L3-4 disk space was incised on the skin. We took the dissection down to the internal | | obliques. Dissecting along these, we encountered a significant amount of adipose | | tissue, which significantly slowed our approach by approximately an hour. Once we had | | finally found the transverse process of L3, we docked our wire on the vertebral body 3 | | at the interspace of 3 and 4. We took confirmatory x-rays to ensure that this was at | | the correct level, placed our dilating tubes. We dilated over the top of our wire. | | Using the neuromonitoring, we stimulated to find the location of the femoral nerve | | within the psoas muscle. At this point, we then placed our retractors system over the | | top of this. We dilated it. We removed the internal dilators. We cleaned off the | | muscle overlying the disk space. We saw and were able to protect the nerve within the | | psoas muscle. At this point, we then turned to our diskectomy. We performed our | | annulotomy using a 15 blade. We removed as much of the disk space material as we could | | using pituitary rongeur. We then used the flap paddle and passed it across the disk | | space, both superior endplate and through the inferior endplate. We then used the AP | | x-ray to confirm that we were across the contralateral anulus. Using a mallet, we then | | removed the rest of the disk material from the disk space. Using the tera, we were | | able to dilate up to a 12 mm spacer. We tapped a trial into the depth, which had good | | placement. We then placed a permanent spacer using the PEEK at L3-4 of approximately 12 | | mm in height. Taking final confirmatory x-rays, we then thought we had good placement | | and removed our retractors and we closed the tissues using 0-Vicryl for the muscle and | | fascia and 3-0 Vicryl for the subcutaneous tissue and a 4-0 running Rapide stitch for | | the skin. We then flipped the patient into the prone position onto the Perez table | | with all pressure points padded adequately. We again performed a timeout to ensure | | correct patient, procedure, and location. We then marked on the skin with indelible | | marker. Prepped and draped in usual sterile fashion. Infiltrated local anesthetic. We | | dissected down through her previous scar tissue,g down to her construct at L3, 4, and | | 5. We dissected out the facet of 2-3 to identify the transverse process of L3. We then | | exposed the old hardware at 4, 5, and S1. The pedicle screw on the left side of S1 was | | medial and within the foramen. Therefore, we elected to revise this screw. We removed | | all the old hardware, handed it off the field. We then placed a new pedicle screw | | entry point at S1, which was slightly more superiorly and a little more laterally and | | aimed more lateral, as well. We then used a pedicle finder, the Lenke probe, to place | | the trocar down into the sacrum to a depth of approximately 40 mm. We then used a | | ball-tip probe to ensure that we had not broken out at any place. Once we felt we had | | good placement, we then placed the screws. At S1, we placed 40 mm screws by 7.5 mm | | diameter. At L5, we placed 40 mm screws by 6.5, and at L4, we placed 45 mm screws by | | 6.5 mm bilaterally. We then used our 3 navigated pedicle screws using our Brocton | | navigation to perform a 3D spin at L3-4. Once we had our 3D shots, were able to use our | | navigation to place these pedicle screws under navigated guidance. We kept the pedicle | | finder down to a depth of 40 mm. She had extremely small pedicles. We placed 40 mm | | screws by 5.5 mm at this level. We performed a complete laminectomy of L3 and bilateral | | neural foraminotomies and wide facetectomies to remove the compression off the nerve | | root at L4. We found a significant amount of material, including previous ligament scar | | tissue and bone, compressing the L4 nerve root on the right side. This was removed and | | decompressed completely. She had wide, bilateral facetectomies. We then used | | allograft and morselized autograft in the lateral recesses for posterolateral | | arthrodesis. We then copiously irrigated. There were no durotomies. We placed a | | Hemovac drain. We prepared all of our exposed bony edges using a high-speed drill. We | | placed the bone again around all the screw heads. We then placed a Hemovac drain to | | evacuate any blood products. We contoured our rods to the correct curvature, placed | | them in the screw caps. We tightened them down with final ore trimmer. We compressed | | across L3-4 bilaterally. This appeared to have good final construct. We then copiously | | irrigated. We stopped all bleeding, removed our retractors. We closed the fascia | | using 0-Vicryl to close to subcutaneous tissue and 3-0 Vicryl, and closed the skin using | | a 4-0 running Caprosyn stitch. Needle counts and sponge counts correct at the end of | | the procedure x2 iterations.Darin Ruano MDNER/JULIAD: 12/23/2012 | | 17:48:55I was present for the critical portions of the procedure as described in the | | note for this encounter.DARIN Rayo MDOHSU [id number] [facility] | | [id number], [place] [id number]: 12/23/2012 23:22:14Job #: | | [id number] | + + CBC (HEMOGRAM) ONLY (12/24/2012 6:31 AM PDT) + + + + + + | Component | Value | Ref Range | Performed | Pathologist | | | | | At | Signature | + + + + + + | WHITE CELL | 14.67 (H) | 4.40 - 11.00 | [facility] | | | COUNT | | K/cu mm | LABORATORY | | | | | | SERVICES, | | | | | | CORE | | + + + + + + | RED CELL | 3.64 (L) | 4.00 - 5.20 | [facility] | | | COUNT | | M/cu mm | LABORATORY | | | | | | SERVICES, | | | | | | CORE | | + + + + + + | HEMOGLOBIN | 10.8 (L) | 12.0 - 16.0 | [facility] | | | | | g/dL | LABORATORY | | | | | | SERVICES, | | | | | | CORE | | + + + + + + | HEMATOCRIT | 32.6 (L) | 36.0 - 46.0 % | [facility] | | | | | | LABORATORY | | | | | | SERVICES, | | | | | | CORE | | + + + + + + | MCV | 89.6 | 80.0 - 96.0 fL | [facility] | | | | | | LABORATORY | | | | | | SERVICES, | | | | | | CORE | | + + + + + + | MCHC | 33.1 | 33.0 - 35.5 | [facility] | | | | | g/dL | LABORATORY | | | | | | SERVICES, | | | | | | CORE | | + + + + + + | RDW SD | 43.5 | 35.1 - 46.3 fL | [facility] | | | | | | LABORATORY | | | | | | SERVICES, | | | | | | CORE | | + + + + + + | PLATELET | 242 | 150 - 400 K/cu | [facility] [...] on 09/19/12. | LABORATORY | | | SERVICESTIMMY | + + + + + + + + | Performing | Address | City/State/Zipcode | Phone Number | | Organization | | | | + + + + + | [facility] | [address] | [place] [address] | | | QUANG, TIMMY | [address] | | | + + + + + BASIC METABOLIC SET (NA, K, CL, TCO2, BUN, CR, GLU, CA) (12/24/2012 6:31 AM PDT) + + + + + + | Component | Value | Ref Range | Performed | Pathologist | | | | | At | Signature | + + + + + + | GLUCOSE, | 257 (H) | 60 - 99 mg/dL | [facility] | | | PLASMA | | | LABORATORY | | | (LAB) | | | SERVICES, | | | | | | CORE | | + + + + + + | BUN, PLASMA | 13 | 6 - 20 mg/dL | [facility] | | | (LAB) | | | LABORATORY | | | | | | SERVICES, | | | | | | CORE | | + + + + + + | CREATININE | 0.55 (L) | 0.60 - 1.10 | [facility] | | | PLASMA | | mg/dL | LABORATORY | | | (LAB) | | | SERVICES, | | | | | | CORE | | + + + + + + | EGFR | >60 | >60 mL/min | [facility] | | | - | | | LABORATORY | | | TRINIDADIAN | | | SERVICES, | | | | | | CORE | | + + + + + + | EGFR NON | >60 | >60 mL/min | [facility] | | | -RADHA | | | LABORATORY | | | RICAN | | | SERVICES, | | | | | | CORE | | + + + + + + | SODIUM, | 137 | 136 - 145 | [facility] | | | PLASMA | | mmol/L | LABORATORY | | | (LAB) | | | SERVICES, | | | | | | CORE | | + + + + + + | POTASSIUM, | 3.4 | 3.4 - 5.0 | [facility] | | | PLASMA | | mmol/L | LABORATORY | | | (LAB) | | | SERVICES, | | | | | | CORE | | + + + + + + | CHLORIDE, | 102 | 97 - 108 mmol/L | [facility] [...] + + + + | CALCIUM, | 7.9 (L) | 8.6 - 10.2 | [facility] | | | PLASMA | | mg/dL | LABORATORY | | | (LAB) | | | SERVICES, | | | | | | CORE | | + + + + + + | ANION GAP | 11 | mmol/L | [facility] | | | [...] Rapidly changing kidney | | | function | | + + + + + + + + | Performing | Address | City/State/Zipcode | Phone Number | | Organization | | | | + + + + + | [facility] | [address] | [place] [address] | | | SERVICES, CORE | [address] | | | + + + + + CAPILLARY BLOOD GLUCOSE (NO CHG), POC (12/23/2012 10:22 PM PDT) + +---------+ + + + | Component | Value | Ref Range | Performed | Pathologist | | | | | At | Signature | + +---------+ + + + | BLOOD | 257 (H) | 60 - 99 mg/dL | [facility] | | | GLUCOSE, | | | [facility] | | | POC | | | [facility] | | | | | | OF CARE | | | | | | TESTS | | + +---------+ + + + + + | Specimen | + + | | + + + + + + + | Performing | Address | City/State/Zipcode | Phone Number | | Organization | | | | + + + + + | [facility] | [address] | [place], [place] | | | [facility] OF CARE | [address] | [address] | | | TESTS | | | | + + + + + CONFIRMATORY ABO/RH (12/23/2012 2:39 PM PDT) + + + + + + | Component | Value | Ref Range | Performed | Pathologist | | | | | At | Signature | + + + + + + | ABO Group | B | | [facility] | | | | | | LABORATORY | | | | | | SERVICES, | | | | | | TRANSFUSION | | | | | | MEDICINE | | + + + + + + | Rh Type | Positive | | [facility] | | | | | | LABORATORY | | | | | | SERVICES, | | | | | | TRANSFUSION | | | | | | MEDICINE | | + + + + + + + + | Specimen | + + | Blood - Blood | + + + + + + + | Performing | Address | City/State/Zipcode | Phone Number | | Organization | | | | + + + + + | [facility] | [address] | [place] [address] | | | SERVICES, | [address] | | | | TRANSFUSION MEDICINE | | | | + + + + + ANTIBODY SCREEN (12/23/2012 10:06 AM PDT) + + + + + + | Component | Value | Ref Range | Performed | Pathologist | | | | | At | Signature | + + + + + + | Antibody | Negative | | [facility] | | | Screen | | | LABORATORY | | | | | | SERVICES, | | | | | | TRANSFUSION | | | | | | MEDICINE | | + + + + + + + + | Specimen | + + | Blood - Blood | + + + + + + + | Performing | Address | City/State/Zipcode | Phone Number | | Organization | | | | + + + + + | [facility] | [address] | [place] [address] | | | SERVICES, | [address] | | | | TRANSFUSION MEDICINE | | | | + + + + + ABO & RH TYPE (12/23/2012 10:06 AM PDT) + + + + + + | Component | Value | Ref Range | Performed | Pathologist | | | | | At | Signature | + + + + + + | ABO Group | B | | [facility] | | | | | | LABORATORY | | | | | | SERVICES, | | | | | | TRANSFUSION | | | | | | MEDICINE | | + + + + + + | Rh Type | Positive | | [facility] | | | | | | LABORATORY | | | | | | SERVICES, | | | | | | TRANSFUSION | | | | | | MEDICINE | | + + + + + + + + | Specimen | + + | Blood - Blood | + + + + + + + | Performing | Address | City/State/Zipcode | Phone Number | | Organization | | | | + + + + + | [facility] | [address] | [place] [address] | | | SERVICES, | [address] | | | | TRANSFUSION MEDICINE | | | | + + + + + INTRAOPERATIVE NEURO MONITORING (12/23/2012) + + + | Narrative | Performed At | + + + | Patient Name: Mary Merino Date of : 1970 | | | Date of Test: 12/23/2012 Place | | | of Service: IP Intra Op [phone]) [id number] - [id number] INTRAOPERATIVE | | | NEURO MONITORING History: This is a 42 year-old female with a | | | history of lower back pain. Patient was admitted for L3/4 | | | laminectomy, extreme lateral interbody fusion and redo of the | | | posterior insrumentation procedures. Conditions of Recording: | | | Free-running and stimulated EMGs were recorded from bilateral leg. | | | Description of recording: The surgeon was notified if there was | | | any firing of selected muscles observed due to mechanical root | | | irritation in the surgical field. No unusual events were noted | | | during the procedure. Intraoperative interpretation was performed | | | using real-time display of intraoperative neurophysiologic recordings | | | for 1 hour 58 minutes (12:09-14:07). Dr. Brunner was continuously | | | available for communication with the recording technologist and the | | | operative team during this time. There was full attention on this | | | case by Dr. Brunner. Impression: No change in baseline waveforms | | | during surgery. Electronically signed on 01/15/2013 10:32 | | | AM by: Maryann Brunner MD [facility] Neurology | | | Department of Clinical Neurophysiology Suggested CPT: | | | G0453 - IOM Continuous undivided attention to single patient x 8 @ 15 | | | min(s) 40350 - EMG Two Extremity Suggested Diagnosis: 336.9 - | | | Unspecified Disease of Spinal Cord | | + + + documented in this encounter Visit Diagnoses + + | Diagnosis | + + | Thoracic or lumbosacral neuritis or radiculitis, unspecified | + + | Spinal stenosis, lumbar region, without neurogenic claudication | + + documented in this encounter Administered Medications + +--------+ +---------+------+------+ | Medication Order | MAR | Action | Dose | Rate | Site | | | Action | Date | | | | + +--------+ +---------+------+------+ | bacitracin (BACIIM) injection | Given | 12/24/19 | 50,000 | | Back | | INTRAPROCEDURE PRN, Starting Tue | | 13 1:00 | Units | | | | 12/23/12 at 1300, Until Tue | | PM PDT | | | | | 12/23/12 at 1814 | | | | | | + +--------+ +---------+------+------+ +---+---+ | | | +---+---+ + +-------+ +---------+---+------+ | bacitracin irrigation | Given | 12/24/19 | 50,000 | | Back | | INTRAPROCEDURE PRN, Starting Tue | | 13 1:00 | Units | | | | 12/23/12 at 1300, Until Tue | | PM PDT | | | | | 12/23/12 at 1814 | | | | | | + +-------+ +---------+---+------+ +---+---+ | | | +---+---+ + +-------+ +-------+---+------+ | bupivacaine-EPINEPHrine | Given | 12/24/19 | 10 mL | | Back | | (MARCAINE-EPINEPHRINE) 0.25 | | 13 1:01 | | | | | %-1:200,000 injection | | PM PDT | | | | | INTRAPROCEDURE PRN, Starting Tue | | | | | | | 12/23/12 at 1301, Until Tue | | | | | | | 12/23/12 at 1814 | | | | | | + +-------+ +-------+---+------+ +---+---+ | | | +---+---+ + +-------+ +--------+---+------+ | thrombin 5000 unit topical | Given | 12/24/19 | 5,000 | | Back | | solution INTRAPROCEDURE PRN, | | 13 1:01 | Units | | | | Starting 12/23/12 at 1301, | | PM PDT | | | | | Until 12/23/12 at 1814 | | | | | | + +-------+ +--------+---+------+ +---+---+ | | | +---+---+ + +-------+ +--------+---+------+ | thrombin 5000 unit topical | Given | 12/24/19 | 5,000 | | Back | | solution INTRAPROCEDURE PRN, | | 13 1:01 | Units | | | | Starting 12/23/12 at 1301, | | PM PDT | | | | | Until 12/23/12 at 1814 | | | | | | + +-------+ +--------+---+------+ +---+---+ | | | +---+---+ documented in this encounter
--- OUTSIDE RECORDS SUMMARY | ~2019-10-16 | XMS | Encounter Summary ---
Demographics + + + | Address | [address] | | | [place] [address] | + + + | Home Phone | | + + + | Preferred Language | Unknown | + + + | Marital Status | | + + + | Bahai Affiliation | PRE | + + + [...] #[id number] | | | | | [address] | | + + + + + | Bebe Terrazas | ECON | Unknown | Unavailable | + + + + + | Arden Terrazas | ECON | Unknown | | + + + + + Care Team Providers + +------+ + | Care Spring Maker Name | Role | Phone | + +------+ + | Yuriy Cardenas PA-C | PCP | | + +------+ + Encounter Details +--------+--------+ + + + | Date | Type | Department | Care Team | Description | +--------+--------+ + + + | 05/07/ | Refill | [facility] Primary Care | Yuriy Cardenas, | | | 2018 | | at [place] [address] | PA-C [address] | | | | | [address] | [address] | | | | | [facility] [place], [place] | [place], [place] | | | | | [address] | [address] | | | | | [phone] | [phone] | | | | | | | [...] insulin (HCC) - Primary | + + documented in this encounter"
--- OUTSIDE RECORDS SUMMARY | ~2019-10-16 | XMS | Encounter Summary ---
Demographics + + + | Address | [address] | | | [place] [address] | + + + | Home Phone | | + + + | Preferred Language | Unknown | + + + | Marital Status | | + + + | Orthodoxy Affiliation | PRE | + + + [...] #[id number] | | | | | [address] | | + + + + + | Bebe Terrazas | ECON | Unknown | Unavailable | + + + + + | Arden Terrazas | ECON | Unknown | | + + + + + Care Team Providers + +------+ + | Care Teletype Clerk Name | Role | Phone | + +------+ + | Yuriy Cardenas PA-C | PCP | | + +------+ + Encounter Details +--------+ + + + + | Date | Type | Department | Care Team | Description | +--------+ + + + + | 09/02/ | MyChart | [facility] | Yuriy Cardenas, | RE: Medication | | 2020 | Encounter | at [place] [address] | PA-C [id number] | Refill | | | | [address] | [address] | | | | | [place] [facility] [place], [place] | [place], [place] | | | | | [address] | [address] | | | | | [phone] | [phone] | | | | | | | [...]
--- OUTSIDE RECORDS SUMMARY | ~2019-10-16 | XMS | Encounter Summary ---
Demographics + + + | Address | [address] | | | [place] [address] | + + + | Home Phone | | + + + | Preferred Language | Unknown | + + + | Marital Status | | + + + | Orthodox Affiliation | PRE | + + [...] [place], [place] | | | | | [address] | | + + + + + | Bebe Terrazas | ECON | Unknown | Unavailable | + + + + + | Arden Hammondi | ECON | Unknown | | + + + + + Care Team Providers + +------+ + | Care Motor Racer Name | Role | Phone | + +------+ + | Crissy Santoyo PA-C | PCP | | + +------+ + Encounter Details +--------+ + + + + | Date | Type | Department | Care Team | Description | +--------+ + + + + | 07/25/ | Results | [facility] | John Dustin Hoffman, | | | 2012 | Only | [address] | [address] | | | | | [place], [place] | [facility] | | | | | [address] | [place], [place] | | | | | | [address] | | | | | | [phone] | | | | | | | [...] | + +--------+ + + + | VASC LAB VENOUS | Routin | 07/25/2012 | | Results for this | | DUPLEX LOWER | e | 8:06 PM | | procedure are in the | | EXTREMITY LT | | PDT | | results section. | + +--------+ + + + documented in this encounter Results [facility] LAB VENOUS DUPLEX LOWER EXTREMITY LT (07/25/2012 8:06 PM PDT) + + | Specimen | + + | | + + + + + | Narrative | Performed At | + + + | ULTRASOUND OF THE LEFT LEG CLINICAL INFORMATION: Swelling. | [facility] | | TECHNIQUE: Duplex Doppler scan was performed. | RADIOLOGY | | FINDINGS: There is normal compression, augmentation, and flow within | | | the deep venous system of the left lower extremity. There is no | | | evidence of deep venous thrombosis. IMPRESSION: Negative. | | + + + + + | Procedure Note | + + | Interface, Lab Results Edis - 10/25/2016 4:59 PM PDT ULTRASOUND OF THE LEFT | | LEGCLINICAL INFORMATION: Swelling.TECHNIQUE: Duplex Doppler scan was performed.FINDINGS: | | There is normal compression, augmentation, and flow within the deep venous system of | | the left lower extremity. There is no evidence of deep venous thrombosis.IMPRESSION: | | Negative. | | | | | | | |TECHNIQUE: Duplex Doppler scan was performed. | | | | | | | |FINDINGS: There is normal compression, augmentation, and flow within the deep venous system of the left lower extremity. There is no evidence of deep venous thrombosis. | | | | | | | |IMPRESSION: Negative. | + + + + + + + | Performing | Address | City/State/Zipcode | Phone Number | | Organization | | | | + + + + + | [facility] | [address] | [place], [place] | [phone] | | | | [address] | | + + + + + documented in this encounter Visit Diagnoses Not on filedocumented in this encounter"
--- OUTSIDE RECORDS SUMMARY | ~2019-10-16 | XMS | Encounter Summary ---
Demographics + + + | Address | [address] | | | [place] [address] | + + + | Home Phone | | + + + | Preferred Language | Unknown | + + + | Marital Status | | + + + | Adventism Affiliation | PRE | + + + | Race | White | + + + | Ethnic Group | Not or | + + + Author + + + | Author | [facility] | + + + | Organization | [facility] | + + + | Address [...] [address] [place] | | | | | [address] | | + + + + + | Bebe Terrazas | ECON | Unknown | Unavailable | + + + + + | Arden Terrazas | ECON | Unknown | | + + + + + Care Team Providers + +------+ + | Care Networking Technology Instructor Name | Role | Phone | + [...] | | | | | y | [address] [facility] | | | | | Procedures | [place], [place] | [facility], | | | | | CT SPINE | [address] | 10th Floor | | | | | LUMBAR WO | Phone: | [place], [place] | | | | | CONTRAST | [phone] | [address] | | | | | | Fax: | Phone: | | | | | | [phone] | [phone] | | | | | | | Fax: | | | | | | | [phone] | +--------+--------+ + + + + Reason [...] | | | | | y | [address] | [address] [facility] | | | | | Procedures | [place], [place] | Hospital, | | | | | CT SPINE | [address] | 10th Floor | | | | | LUMBAR WO | Phone: | [place], [place] | | | | | CONTRAST | [phone] | [address] | | | | | | Fax: | Phone: | | | | | | [phone] | [phone] | | | | | | | Fax: | | | | | | | [phone] | +--------+--------+ + + + + Encounter Details +--------+ + + + + | Date | Type | Department | Care Team | Description | +--------+ + + + + | 04/15/ | Hospital | Diagnostic Imaging | | | | 2013 | Encounter | Services at [facility] | | | | | | [address] | | | | | | [address] [facility] | | | | | | Hospital, 10th Floor | | | | | | [place], [place] | | | | | | [address] | | | | | | [phone] | | | +--------+ + + + [...] CT SPINE LUMBAR WO | Routin | 04/15/2013 | Lumbar | Results for this | | CONTRAST | e | 11:15 AM | radiculopathy | procedure are in [...] Diagnosis | + + | Lumbar radiculopathy Thoracic or lumbosacral neuritis or radiculitis, unspecified | + + documented in this encounter"
--- OUTSIDE RECORDS SUMMARY | ~2019-10-16 | XMS | Encounter Summary ---
Demographics + + + | Address | [address] | | | [place] [address] | + + + | Home Phone | | + + + | Preferred Language | Unknown | + + + | Marital Status | | + + + | Worship Affiliation | PRE | + + + | Race | White | + + + | Ethnic Group | Not or | + + + Author + + + | Author | [facility] | + + + | Organization | [facility] | + + + | Address [...] [address] [place] | | | | | [address] | | + + + + + | Bbee Terrazas | ECON | Unknown | Unavailable | + + + + + | Arden Terrazas | ECON | Unknown | | + + + + + Care Team Providers + +------+ + | Care Carton Making Machinist Name | Role | Phone | + +------+ + | Yuriy Cardenas PA-C | PCP | | + +------+ + Encounter Details +--------+ + + + + | Date | Type | Department | Care Team | Description | +--------+ + + + + | 06/17/ | MyChart | HOSPITAL ADMITTING | | Appointment Reminder | | 2019 | Encounter | [address] | | | | | | [address] | | | | | | [place], [place] | | | | | | [address] | | | +--------+ + + + [...]
--- OUTSIDE RECORDS SUMMARY | ~2019-10-16 | XMS | Encounter Summary ---
Demographics + + + | Address | [address] | | | [place] [address] | + + + | Home Phone [...] Author | [facility] | + + + | Organization | [facility] | + + + | Address | Unknown | + + + | Phone | Unavailable | + + + Support + + + + + | Name | Relationship | Address | Phone | + + + + + | Dustin Terrazas | ECON | [address] | Unavailable | | | | [address] [place] | | | | | [address] | | + + + + + | Bebe Terrazas | ECON | Unknown | Unavailable | + + + + + | Arden Terrazas | ECON | Unknown | | + + + + + Care Team Providers + +------+ + | Care Child Care Attendant School Name | Role | Phone | + +------+ + | Yuriy Cardenas PA-C | PCP | | + +------+ + Reason for Referral Consultation (Routine) +--------+--------+ + + + + | Status | Reason | Specialty | Diagnoses / | Referred By | Referred To | | | | | Procedures | Contact | Contact | +--------+--------+ + + + + | Closed | | Neurological | Diagnoses | Ronald, | C[place], | | | | Surgery | Lumbar | Yuriy Mcgill PA-C | Sivakumar Hernandez MD | | | | | radiculopath | [address] | [address] | | | | | y Lumbar | [address] | | | | | post-laminec | [address] | [place], [place] | | | | | chris | [place], | [address] | | | | | syndrome | [place] | Phone: | | | | | Procedures | [address] | [phone] | | | | | CONSULT TO | Phone: | Fax: | | | | | NEUROSURGERY | [phone] | [phone] | | | | | RI NEW | Fax: | | | | | | PATIENT | [phone] | | | | | | LEVEL V RI | | | | | | | EST PATIENT | | | | | | | LEVEL V | | | +--------+--------+ + + + + Reason for Visit + + + | Reason | Comments | + + + | Diabetes mellitus | | + + + | HTN - Hypertension | | + + + | Chronic pain | | + + + Encounter Details +--------+ + + + + | Date | Type | Department | Care Team | Description | +--------+ + + + + | 07/09/ | Telephone-S | [facility] | Yuriy Cardenas, | Diabetes mellitus; | | 2020 | cheduled | at [place] [address] | [place]-C [id number] | HTN - Hypertension; | | | | [address] | [address] | Chronic pain | | | | [place], [place] | [place], [place] | | | | | [address] | [address] | | | | | [phone] | [phone] | | | | | | | [...] documented as of this encounter Progress Notes Yuriy Cardenas PA-C - 07/10/2019 4:20 PM PDTFormatting of this note might be different fro m the original. TELEPHONE VISIT Patient agrees to a telephone encounter for today's visit. They understand they may be resp onsible for the balance after insurance processes the claim. SUBJECTIVE/BACKGROUND CC: Chief Complaint Patient presents with Diabetes mellitus HTN - Hypertension Chronic pain HPI: Because of being in [place] dealing with her sister's and cleaning out with her things there, she had run out of her pain medications and had been "toughing it out." Feels pretty exhausted with all the family stuff. Also is quite stressed with coronavirus restrictions. Having a lot of back pain again, would like to see Dr. Tanner because of pain around her fu mayank site. Seems like more of a dull sustained pain. R leg is painful down through her hip , almost down to her knee. Blood sugars she has gotten have been excellent since addition of GLP-1. Highest has been 182, but otherwise staying 111-130. Did get a low of 71, but felt at time and ate to correct it. Does still sense if she gets low. Normally injecting 8-12u at meals of short-acting insulin, but sometimes she will only need 2x per day. Regular at 30-38u max of basal insulin, most of the time 30-32u. Checking BP's only intermittently. Had been in range at last change. Breathing has been good, no increase in GUERIN, was on O2 at baseline, still does have it with her but has not needed to use. ROS: Denies CP/tightness, no palpitations, no lightheadedness/dizziness, not having visual, orion r or sensory changes. OBJECTIVE Voice: normal ousmane and clarity of speech Psych: positive mood and affect, no pressured speech, normal TC as expressed, shows good in sight. ASSESSMENT/PLAN ICD-10-CM 1. Type 2 diabetes mellitus with diabetic polyneuropathy, with long-term current use of ins andrew ([facility]) E11.42 LEVEMIR U-100 INSULIN 100 unit/mL subcutaneous solution Z79.4 insulin aspart U-100 100 unit/mL subcutaneous solution losartan 50 mg oral tablet 2. 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 Mixed hyperlipidemia E78.2 gemfibroziL 600 mg oral tablet 4. Non-small cell cancer of left lung (HCC) C34.92 pregabalin 200 mg oral capsule morphine SR 10 mg oral capsule,extend.release pellets oxyCODONE (immediate release) 5 mg oral tablet oxyCODONE (immediate release) 5 mg oral tablet morphine SR 10 mg oral capsule,extend.release pellets 5. Other chronic postprocedural pain G89.28 pregabalin 200 mg oral capsule morphine SR 10 mg oral capsule,extend.release pellets oxyCODONE (immediate release) 5 mg oral tablet oxyCODONE (immediate release) 5 mg oral tablet morphine SR 10 mg oral capsule,extend.release pellets 6. Lumbar radiculopathy M54.16 CONSULT TO NEUROSURGERY 7. Lumbar post-laminectomy syndrome M96.1 CONSULT TO NEUROSURGERY 8. Major depressive disorder, recurrent episode, moderate (HCC) F33.1 citalopram 20 mg oral tablet Patient with large number of issues today. Has had delay of care due to in family, [place] in [place] due to follow up from this, and ongoing social issues. She reports her diabetic control as being quite good since increase in GLP-1 agonist, thoug h last A1c was quite high. Her numbers indicate that hopefully next reading will be improve d. Because of insurance coverage and limiting trips we continued to refill her meds for 90d fi lls where possible. Discussed her pain treatment. Does still find the morphine helpful and feels she could paul n for less frequent dosing of breakthrough medication, I stressed that recent period of runn ing out due to travel was a form of "opportunity" in that it helped re-set some of her pain sensation. Continuing pregabalin. Pt has history of prior spine surgery, describing symptoms at site and possibly representin g neuropathic origin. Feel is appropriate to refer back to prior surgeon but advised they m ay request specific procedures such as MRI prior to seeing her. F/u 8 weeks. Yuriy Cardenas PA-C Time spent on the call: 33 min. The patients encounter was accomplished via a telephone call today due to COVID-19 precauti onary measures to limit the patient's unnecessary exposure. 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
--- OUTSIDE RECORDS SUMMARY | ~2019-10-16 | XMS | Encounter Summary ---
Demographics + + + | Address | [address] | | | [place] [address] | + + + | Home Phone | | + + + | Preferred Language | Unknown | + + + | Marital Status | | + + + | Anabaptist Affiliation | PRE | + + + [...] [id number] | | | | | [id number] | | + + + + + | Bebe Merino | ECON | Unknown | Unavailable | + + + + + | Arden Merino | ECON | Unknown | | + + + + + Care Team Providers + +------+ + | Care Med Specialist Name | Role | Phone | + [...] + | Closed | | Radiology | Procedures | Sabillon, | Rad Ct Scan | | | | | CT SPINE | [place], | [facility] [address] | | | | | LUMBAR WO | ,PhD [address] | | | | | CONTRAST | [address] | [address] [facility] | | | | | | [facility], | | | | | | Rd | [facility] | | | | | | [place], [place] | [place], [place] | | | | | | [address] | [address] | | | | | | Phone: | Phone: | | | | | | [phone] | [phone] | | | | | | Fax: | Fax: | | | | | | [phone] | [phone] | +--------+--------+ + + + + Reason for Visit AUTH/CERT +--------+--------+ + [...] | +--------+ + + + + | 12/23/ | Hospital | [facility] [address] | Sivakumar Tanner, | | | 2012 - | Encounter | [address] | [address] | | | | | [id number] [facility] | [place], [place] | | | 12/26/ | | [facility], | [address] | | | 2012 | | [place] [address] | [phone] | | | | | [phone] | | | +--------+ + + + [...] Tanner MD PCP: Zora Haddad DO Service: [facility] Neurosurgery Diagnoses Principal Final Diagnosis: 1. [...] Adjacent level Degenerative Disc Disease, admitted to [facility], electively, on 12/24/19 13 for the procedure(s) described above. The inpatient stay related to this procedure(s) to ok an uncomplicated perioperative course and the patient was followed closely by the attendi providers, resident providers, and medical/nursing staff. The [...] 4 days. A follow up appointment with christiane harp patient's Primary Care clinic was arranged for [...] narcotics/pain medications. Follow Up Follow up at [facility] Neurosurgery Clinic, [facility], 8th Floor, [address] [place] [address]; 01/07/13 at 10:30 am. Follow up with [...] 3:21 PM Discharging Attending: Sivakumar Tanner MD [facility] [address] [place] [address] documented in t his encounter Medications at [...] as of this encounter Progress Notes Maricarmen Colindres RN - 12/26/2012 10:00 AM PDTDiabetes Education Note [...] in past) Materials provided Written materials in [facility] with Type 2 Diabetes program information (ADA) One Touch glucometer (pt does not need test strips) Education outcome Pt receptive to education and verbalizes understanding of insulin requirement. Pt able to return demonstrate drawing and administering insulin with syringe (using Parametric supplies) Recommendations Provide pt with Rx for insulin syringes: 30 unit (3/10cc), 6mm, 31G Pt encouraged to keep records of BG and check in with re: Steroid taper and insulin adj ustment needed Plan Follow up with neuro surgery team Follow up with primary care and pt to request diabetes education Maricarmen Gaines, MPH, RD, LD, RN, CDE Inpatient Diabetes Education Pager #[phone] signed by Maricarmen Colindres RN at 12/26/2012 12:39 PM PDTThOlga birch PA - 12/26/2012 9:47 AM PDTFormatting of [...] Intake/Output Summary (Last 24 hours) at 12/26/12 0947 Last data filed at 12/25/12 2143 Gross [...] Range: 0.60-1.10 mg/dL 0.49 (L) EGFR - [place] Latest Range: >60 mL/min >60 EGFR NON -[place] Latest Range: >60 mL/min >60 GLUCOSE, PLASMA [...] within 1-2 weeks time. OLGA BULLOCK PA-C [facility] [address] [address] [id number] MEDICATIONS Current Facility-Administered Medications Medication acetaminophen (TYLENOL) [...] 1 Bottle tiZANidine (ZANAFLEX) tablet 2 mg Peg Warner PA - 12/25/2012 6:46 AM PDTFormatting of [...] meds, monitor, will start weaning of f RN ON SITE-will increase Gabapentin to 300 mg tid increase [...] home in 1-2 days. OLGA BULLOCK PA-C [facility] [address] [address] [address] MEDICATIONS Current Facility-Administered Medications Medication acetaminophen (TYLENOL) [...] in preservative free NaCl 0.9% 50 mL RN ON SITE infusion insulin glargine (LANTUS) injection 20 Units [...] senna-docusate (SENOKOT S) 8.6-50 mg 2 tablet ePg Warner PA - 12/24/2012 6:54 AM PDTFormatting of [...] Latest Range: 60-99 mg/dL 257 (H) Labs [facility] and CDC pending. General: 42 y/o Female [...] with current meds, monitor, Start weaning off RN ON SITE-will increase Gabapent in to 300 mg tid [...] out Disposition: Pending clinical course, pain management. RAMOS HUTCHINSON-C [facility] [address] [address] [place] [address] Pg [phone] MEDICATIONS Current Facility-Administered Medications Medication acetaminophen (TYLENOL) [...] in preservative free NaCl 0.9% 50 mL RN ON SITE infusion insulin lispro (HUMALOG) injection lactated ringers [...] procedure. Stable. 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 | [place], [place] | | | [facility] [place] [facility] [place] | [facility] | [address] | | | TESTS | | | [...] | [facility] | [address] | [place], [place] | | | [facility] [facility] CARE | [address] | [address] | | | TESTS | | | [...] + | [facility] | [address] | [place] [address] | | | SERVICES, CORE | PARK [...] | | | LABORATORY | | | [place] | | | SERVICES, | | | [...] | + + + + + | [facility] | [address] [facility] [facility] [address] [facility] | [place] [address] | | | [address] | [...] + + + + | [facility] | [address] | [place], [place] | | | [facility] [facility] | [address] | [address] | | | TESTS | | | [...] (H) | 60 - 99 mg/dL | [facility] - | | | GLUCOSE, | [...] | [facility] | [address] | [place] | | | [facility] [place] [facility] | [facility] | [address] | | | TESTS | | | [...] [facility] | [address] | [place] | | | [place] | [address] | [address] | | | TESTS | | | [...] + + + + | [facility] | [address] | [place], [place] | | | [facility] [facility] | [address] | [address] | | | TESTS | | | [...] | + + + + + | [facility] | [address] | [place] [address] | | | SERVICES, CORE | PARK [...] | | | LABORATORY | | | [place] | | | SERVICES, | | | [...] | + + + + + | [facility] | [address] | [place] [address] | | | SERVICES, CORE | EDITH [...] (H) | 60 - 99 mg/dL | [facility] - | | | GLUCOSE, | [...] | [facility] | [address] | [place], [place] | | | [facility] [place] [facility] [place] | [address] | [address] | | | TESTS | | | [...] [facility] | [address] | [place] | | | [facility] [place] [facility] CARE | [address] | [address] | | | TESTS | | | [...] | [facility] | [address] | [place], [place] | | | [facility] | [facility] | [address] | | | TESTS | | | [...] | | | | | | the L5-S6deujzgeays | | | | | | levels. [...] | [facility] | [address] | [place] | | | [facility] [place] [facility] | [address] | [address] | | | TESTS | | | | + + + + + CAPILLARY BLOOD GLUCOSE (NO CHG), POC (12/24/2012 9:20 AM PDT) + +---------+ [...] [facility] | [address] | [place] | | | [facility] [place] [facility] | [address] | [address] | | | TESTS | | | | + + + + + OPERATION RECORD (12/24/2012 8:48 AM PDT) + + | Transcriptions | + + | Sivakumar Tanner MD - 12/23/2012 11:22 PM PDT Date of Service: 12/23/2012ttending | | Surgeon: Sivakumar Tanner MD Compliance Engineer Products(s): MD Juwan Ruano MD | | Preoperative Diagnoses: 1. Adjacent level degenerative disk disease at L3-4.2. L4 | | radiculopathy.3. Spondylosis.4. Herniated nucleus pulposus at L3-4.Postoperative | | Diagnoses: 1. Adjacent level degenerative disk disease at L3-4.2. L4 radiculopathy.3. | | Spondylosis.4. Herniated nucleus pulposus at L3-4.Procedures Performed: 1. Direct | | lateral interbody fusion using [place] of L3-4 on the left lateral approach.2. [...] our 3 navigated pedicle screws using our [place] | | navigation to perform a 3D [...] caps. We tightened them down with final television tube inspector. We compressed | | across L3-4 bilaterally. [...] | note for this encounter.DARIN Rayo MDOHSU [id number] [facility] | | [id number], [place] [id number]: 12/23/2012 23:22:14Job #: | | [id number] | + + CBC (HEMOGRAM) ONLY (12/24/2012 [...] | + + + + + | [facility] | [address] | [place] [address] | | | SERVICES, CORE | EDITH [...] | | | LABORATORY | | | [place] | | | SERVICES, | | | [...] | + + + + + | [facility] | [address] | [place] [address] | | | SERVICES, CORE | PARK [...] | [facility] | [address] | [place], [place] | | | [facility] [place] [facility] [place] | [facility] | [address] | | | TESTS | | | [...] + | [facility] | [address] | [place] [address] | | | SERVICES, | [address] [...] | + + + + + | [facility] | [address] | [place] [address] | | | SERVICES, | [address] [...] + + | [facility] | [address] | [place] [address] | | | SERVICES, | EDITH [address]LLO | | | | TRANSFUSION MEDICINE | | | | + + + + + INTRAOPERATIVE NEURO MONITORING (12/23/2012) + + + | Narrative | Performed At | + + + | Patient Name: Mary Merino Date of : 1970 | | | Date of Test: 12/23/2012 Place | | | of Service: Intra Op [id number] INTRAOPERATIVE | | | NEURO MONITORING History: [...] | | AM by: Maryann Brunner MD [facility] | | | Department of Clinical Neurophysiology Suggested CPT: | | | G0453 - IOM Continuous undivided attention to single patient x 8 @ 15 | | | min(s) 79751 - EMG Two Extremity Suggested Diagnosis: 336.9 - | | | Unspecified Disease of Spinal Cord | | + + + documented in this encounter Visit Diagnoses + + | Diagnosis | + + | Lumbar radiculopathy - Primary Thoracic or lumbosacral neuritis or radiculitis, | | unspecified | + + documented in this encounter Administered Medications + +--------+ +--------+------+------+ | Medication Order | MAR | Action | Dose | Rate | Site | | | Action | Date | | | | + +--------+ +--------+------+------+ | acetaminophen (TYLENOL) tablet | Given | 12/27/19 | 650 mg | | | | 325-650 mg 325-650 mg, oral, | | 13 3:22 | | | | | EVERY 4 HOURS NEEDED, Starting | | PM PDT | | | | | 12/23/12 at 2300, Until Fri | | | | | | | 12/26/12 at 2317, mild pain | | | | | | + +--------+ +--------+------+------+ +-------+ +--------+---+---+ | Given | 12/27/19 | 650 mg | | | | | 13 8:33 | | | | | | AM PDT | | | | +-------+ +--------+---+---+ | Given | 12/27/19 | 650 mg | | | | | 13 1:28 | | | | | | AM PDT | | | | +-------+ +--------+---+---+ +---+---+ | | | +---+---+ + +-------+ +-------+---+---+ | bisacodyl (DULCOLAX) | Given | 12/27/19 | 10 mg | | | | suppository 10 mg 10 mg, rectal, | | 13 12:22 | | | | | TWICE DAILY NEEDED, Starting | | PM PDT | | | | | 12/23/12 at 2300, Until Fri | | | | | | | 12/26/12 at 2317, constipation, | | | | | | | No BM in past 3 days | | | | | | + +-------+ +-------+---+---+ +---+---+ | | | +---+---+ + +---------+ +-----+---+---+ | ceFAZolin (ANCEF) IV 2 g 2 g, | New Bag | 12/25/19 | 2 g | | | | intravenous, EVERY 8 HOURS, First | | 13 8:37 | | | | | dose on Sat12/24/12 at 0000, | | AM PDT | | | | | Until Discontinued | | | | | | + +---------+ +-----+---+---+ +---------+ +-----+---+---+ | New Bag | 12/25/19 | 2 g | | | | | 13 1:14 | | | | | | AM PDT | | | | +---------+ +-----+---+---+ +---+---+ | | | +---+---+ + +---------+ +-------+---+---+ | diphenhydrAMINE (BENADRYL) | New Bag | 12/27/19 | 25 mg | | | | injection 25 mg 25 mg, | | 13 1:28 | | | | | intravenous, EVERY 6 HOURS | | AM PDT | | | | | NEEDED, Starting Sat12/23/12 at | | | | | | | 1848, Until Sat12/26/12 at 2317, | | | | | | | itching, allergic reaction, | | | | | | | rash, insomnia, nausea/vomiting | | | | | | + +---------+ +-------+---+---+ +---+---+ | | | +---+---+ + +-------+ +-------+---+---+ | enoxaparin (LOVENOX) injection | Given | 12/26/19 | 40 mg | | | | 40 mg 40 mg, subcutaneous, EVERY | | 13 8:18 | | | | | EVENING, First dose on Marissa | | PM PDT | | | | | 12/25/12 at 2100, Until | | | | | | | Discontinued | | | | | | + +-------+ +-------+---+---+ +---+---+ | | | +---+---+ + +---------+ +--------+---+---+ | fentaNYL citrate (PF) | New Bag | 12/24/19 | 25 mcg | | | | (SUBLIMAZE) injection 50 mcg 50 | | 13 7:50 | | | | | mcg, intravenous, POSTPROCEDURE | | PM PDT | | | | | PRN, Starting Sat12/23/12 at | | | | | | | 1131, Until Sat12/23/12 at 2026, | | | | | | | moderate pain | | | | | | + +---------+ +--------+---+---+ +---------+ +--------+---+---+ | New Bag | 12/24/19 | 25 mcg | | | | | 13 7:15 | | | | | | PM PDT | | | | +---------+ +--------+---+---+ | New Bag | 12/24/19 | 50 mcg | | | | | 13 7:10 | | | | | | PM PDT | | | | +---------+ +--------+---+---+ + +---+ | | | + +---+ | fentaNYL citrate (PF) | | | (SUBLIMAZE) injection 1 dose, | | | Starting Sat12/23/12 at 1849, | | | Until Sat12/23/12 at 1910 | | + +---+ | | | + +---+ + +-------+ +-------+---+---+ | FLUoxetine (PROZAC) capsule 20 | Given | 12/26/19 | 20 mg | | | | mg 20 mg, oral, AT BEDTIME, | | 13 10:01 | | | | | First dose on Sat12/23/12 at | | PM PDT | | | | | 2200, Until Discontinued | | | | | | + +-------+ +-------+---+---+ +-------+ +-------+---+---+ | Given | 12/25/19 | 20 mg | | | | | 13 9:34 | | | | | | PM PDT | | | | +-------+ +-------+---+---+ | Given | 12/24/19 | 20 mg | | | | | 13 10:15 | | | | | | PM PDT | | | | +-------+ +-------+---+---+ +---+---+ | | | +---+---+ + +-------+ +--------+---+---+ | gabapentin (NEURONTIN) capsule | Given | 12/24/19 | 300 mg | | | | 300 mg 300 mg, oral, AT BEDTIME, | | 13 10:15 | | | | | First dose on Sat12/23/12 at | | PM PDT | | | | | 2200, Until Discontinued | | | | | | + +-------+ +--------+---+---+ +---+---+ | | | +---+---+ + +-------+ +--------+---+---+ | gabapentin (NEURONTIN) capsule | Given | 12/27/19 | 300 mg | | | | 300 mg 300 mg, oral, THREE TIMES | | 13 8:33 | | | | | DAILY, First dose (after last | | AM PDT | | | | | modification) on 12/24/12 at | | | | | | | 0900, Until Discontinued | | | | | | + +-------+ +--------+---+---+ +-------+ +--------+---+---+ | Given | 12/26/19 | 300 mg | | | | | 13 10:00 | | | | | | PM PDT | | | | +-------+ +--------+---+---+ | Given | 12/26/19 | 300 mg | | | | | 13 4:50 | | | | | | PM PDT | | | | +-------+ +--------+---+---+ +---+---+ | | | +---+---+ + +---------+ +------+---+---+ | HYDROmorphone (DILAUDID) | New Bag | 12/27/19 | 1 mg | | | | injection 0.5-2 mg 0.5-2 mg, | | 13 5:59 | | | | | intravenous, EVERY 2 HOURS | | AM PDT | | | | | NEEDED, Starting Marissa 12/25/12 at | | | | | | | 0642, Until Sat12/26/12 at 2317, | | | | | | | moderate pain, severe pain | | | | | | + +---------+ +------+---+---+ +---------+ +------+---+---+ | New Bag | 12/26/19 | 1 mg | | | | | 13 8:19 | | | | | | PM PDT | | | | +---------+ +------+---+---+ | New Bag | 12/26/19 | 1 mg | | | | | 13 3:13 | | | | | | PM PDT | | | | +---------+ +------+---+---+ +---+---+ | | | +---+---+ + +---------+ +---+---+---+ | HYDROmorphone 25 mg in | New Bag | 12/26/19 | | | | | preservative free NaCl 0.9% 50 mL | | 13 1:10 | | | | | RN ON SITE infusion intravenous, | | AM PDT | | | | | CONTINUOUS, Starting 12/23/12 | | | | | | | at 1930, Until Marissa 12/25/12 at | | | | | | | 1700 | | | | | | + +---------+ +---+---+---+ + + +--------+---+---+ | Rate/Dose Verify | 12/25/19 | | | | | | 13 9:35 | | | | | | PM PDT | | | | + + +--------+---+---+ | New Bag | 12/24/19 | 0.2 mg | | | | | 13 7:00 | | | | | | PM PDT | | | | + + +--------+---+---+ + +---+ | | | + +---+ | HYDROmorphone RN ON SITE infusion 1 | | | dose, Starting Sat12/23/12 at | | | 1851, Until Sat12/23/12 at 1900 | | + +---+ | | | + +---+ + +-------+ + +---+---+ | insulin glargine (LANTUS) | Given | 12/25/19 | 20 Units | | | | injection 20 Units 20 Units, | | 13 10:42 | | | | | subcutaneous, DAILY, First dose | | AM PDT | | | | | on Sat12/24/12 at 1000, Until | | | | | | | Discontinued | | | | | | + +-------+ + +---+---+ +---+---+ | | | +---+---+ + +-------+ + +---+---+ | insulin glargine (LANTUS) | Given | 12/27/19 | 25 Units | | | | injection 25 Units 25 Units, | | 13 8:32 | | | | | subcutaneous, DAILY, First dose | | AM PDT | | | | | (after last modification) on [facility] | | | | | | | 12/25/12 at 0900, Until | | | | | | | Discontinued | | | | | | + +-------+ + +---+---+ +-------+ + +---+---+ | Given | 12/26/19 | 25 Units | | | | | 13 9:10 | | | | | | AM PDT | | | | +-------+ + +---+---+ +---+---+ | | | +---+---+ + +-------+ + +---+---+ | insulin lispro (HUMALOG) | Given | 12/26/19 | 10 Units | | | | injection 10 Units 10 Units, | | 13 3:10 | | | | | subcutaneous, THREE TIMES DAILY | | PM PDT | | | | | WITH MEALS, First dose (after | | | | | | | last modification) on [facility] | | | | | | | 12/25/12 at 0745, Until | | | | | | | Discontinued | | | | | | + +-------+ + +---+---+ +-------+ + +---+---+ | Given | 12/26/19 | 10 Units | | | | | 13 10:59 | | | | | | AM PDT | | | | +-------+ + +---+---+ +---+---+ | | | +---+---+ + +-------+ + +---+---+ | insulin lispro (HUMALOG) | Given | 12/27/19 | 12 Units | | | | injection 12 Units 12 Units, | | 13 3:21 | | | | | subcutaneous, THREE TIMES DAILY | | PM PDT | | | | | WITH MEALS, First dose (after | | | | | | | last modification) on Sat | | | | | | | 12/26/12 at 0730, Until | | | | | | | Discontinued | | | | | | + +-------+ + +---+---+ +-------+ + +---+---+ | Given | 12/27/19 | 12 Units | | | | | 13 9:54 | | | | | | AM PDT | | | | +-------+ + +---+---+ +---+---+ | | | +---+---+ + +-------+ +---------+---+---+ | insulin lispro (HUMALOG) | Given | 12/25/19 | 7 Units | | | | injection 7 Units 7 Units, | | 13 9:33 | | | | | subcutaneous, THREE TIMES DAILY | | PM PDT | | | | | WITH MEALS, First dose (after | | | | | | | last modification) on Sat | | | | | | | 12/24/12 at 1100, Until | | | | | | | Discontinued | | | | | | + +-------+ +---------+---+---+ +-------+ +---------+---+---+ | Given | 12/25/19 | 7 Units | | | | | 13 6:18 | | | | | | PM PDT | | | | +-------+ +---------+---+---+ | Given | 12/25/19 | 7 Units | | | | | 13 11:51 | | | | | | AM PDT | | | | +-------+ +---------+---+---+ +---+---+ | | | +---+---+ + +-------+ +---------+---+---+ | insulin lispro (HUMALOG) | Given | 12/24/19 | 3 Units | | | | injection subcutaneous, WITH | | 13 10:45 | | | | | MEALS AND BEDTIME, First dose on | | PM PDT | | | | | 12/23/12 at 2200, Until | | | | | | | Discontinued | | | | | | + +-------+ +---------+---+---+ +---+---+ | | | +---+---+ + +-------+ +---------+---+---+ | insulin lispro (HUMALOG) | Given | 12/25/19 | 6 Units | | | | injection subcutaneous, WITH | | 13 9:45 | | | | | MEALS AND BEDTIME, First dose | | AM PDT | | | | | (after last modification) on Wed | | | | | | | 12/24/12 at 0800, Until | | | | | | | Discontinued | | | | | | + +-------+ +---------+---+---+ +---+---+ | | | +---+---+ + +-------+ +---------+---+---+ | insulin lispro (HUMALOG) | Given | 12/27/19 | 6 Units | | | | injection subcutaneous, WITH | | 13 3:22 | | | | | MEALS AND BEDTIME, First dose on | | PM PDT | | | | | 12/24/12 at 1200, Until | | | | | | | Discontinued | | | | | | + +-------+ +---------+---+---+ +-------+ +---------+---+---+ | Given | 12/27/19 | 4 Units | | | | | 13 9:54 | | | | | | AM PDT | | | | +-------+ +---------+---+---+ | Given | 12/27/19 | 3 Units | | | | | 13 1:25 | | | | | | AM PDT | | | | +-------+ +---------+---+---+ +---+---+ | | | +---+---+ + + + + + +---+ | lactated ringers IV 125 mL/hr, | Rate/Dos | 12/25/19 | 25 mL/hr | 25 mL/hr | | | intravenous, CONTINUOUS, | e Change | 13 11:49 | | | | | Starting 12/23/12 at 1900, | | AM PDT | | | | | Until 12/24/12 at 0700 | | | | | | + + + + + +---+ +---------+ +-------+-------+---+ | New Bag | 12/25/19 | 125 | 125 | | | | 13 2:51 | mL/hr | mL/hr | | | | AM PDT | | | | +---------+ +-------+-------+---+ | New Bag | 12/24/19 | 125 | 125 | | | | 13 7:00 | mL/hr | mL/hr | | | | PM PDT | | | | +---------+ +-------+-------+---+ +---+---+ | | | +---+---+ + +-------+ +-------+---+---+ | losartan (COZAAR) tablet 25 mg | Given | 12/26/19 | 25 mg | | | | 25 mg, oral, AT BEDTIME, First | | 13 10:00 | | | | | dose on Sat12/23/12 at 2200, | | PM PDT | | | | | Until Discontinued | | | | | | + +-------+ +-------+---+---+ +-------+ +-------+---+---+ | Given | 12/25/19 | 25 mg | | | | | 13 9:34 | | | | | | PM PDT | | | | +-------+ +-------+---+---+ | Given | 12/24/19 | 25 mg | | | | | 13 10:15 | | | | | | PM PDT | | | | +-------+ +-------+---+---+ +---+---+ | | | +---+---+ + +-------+ +-------+---+---+ | methylPREDNISolone (MEDROL) | Given | 12/27/19 | 16 mg | | | | tablet 16 mg 16 mg, oral, DAILY, | | 13 8:34 | | | | | 1 dose, First dose on Fri | | AM PDT | | | | | 12/26/12 at 0900 | | | | | | + +-------+ +-------+---+---+ +---+---+ | | | +---+---+ + +-------+ +-------+---+---+ | methylPREDNISolone (MEDROL) | Given | 12/26/19 | 20 mg | | | | tablet 20 mg 20 mg, oral, DAILY, | | 13 9:10 | | | | | 1 dose, First dose on Marissa | | AM PDT | | | | | 12/25/12 at 0900 | | | | | | + +-------+ +-------+---+---+ +---+---+ | | | +---+---+ + +-------+ +-------+---+---+ | methylPREDNISolone (MEDROL) | Given | 12/25/19 | 24 mg | | | | tablet 24 mg 24 mg, oral, DAILY, | | 13 9:45 | | | | | 1 dose, First dose on Sat | | AM PDT | | | | | 12/24/12 at 1030 | | | | | | + +-------+ +-------+---+---+ +---+---+ | | | +---+---+ + +---------+ + + +---+ | NaCl 0.9 % IV 10 mL/hr, | New Bag | 12/24/19 | 10 mL/hr | 10 mL/hr | | | intravenous, PROCEDURE | | 13 8:44 | | | | | CONTINUOUS, Starting Sat12/23/12 | | AM PDT | | | | | at 0830, Until Sat12/23/12 at | | | | | | | 2027 | | | | | | + +---------+ + + +---+ +---+---+ | | | +---+---+ + +-------+ +-------+---+---+ | oxyCODONE (immediate release) | Given | 12/26/19 | 15 mg | | | | (ROXICODONE) tablet 5-15 mg 5-15 | | 13 3:13 | | | | | mg, oral, EVERY 3 HOURS | | PM PDT | | | | | NEEDED, Starting e 12/23/12 at | | | | | | | 2300, Until Marissa 10/24/13 at 1701, | | | | | | | severe pain | | | | | | + +-------+ +-------+---+---+ +-------+ +-------+---+---+ | Given | 12/26/19 | 15 mg | | | | | 13 12:13 | | | | | | PM PDT | | | | +-------+ +-------+---+---+ | Given | 12/26/19 | 15 mg | | | | | 13 9:13 | | | | | | AM PDT | | | | +-------+ +-------+---+---+ +---+---+ | | | +---+---+ + +-------+ +-------+---+---+ | oxyCODONE (immediate release) | Given | 12/27/19 | 20 mg | | | | (ROXICODONE) tablet 5-20 mg 5-20 | | 13 5:45 | | | | | mg, oral, EVERY 3 HOURS | | AM PDT | | | | | NEEDED, Starting Marissa 12/25/12 at | | | | | | | 1700, Until Sat12/26/12 at 0649, | | | | | | | severe pain | | | | | | + +-------+ +-------+---+---+ +-------+ +-------+---+---+ | Given | 12/27/19 | 20 mg | | | | | 13 1:28 | | | | | | AM PDT | | | | +-------+ +-------+---+---+ | Given | 12/26/19 | 10 mg | | | | | 13 10:00 | | | | | | PM PDT | | | | +-------+ +-------+---+---+ +---+---+ | | | +---+---+ + +-------+ +-------+---+---+ | oxyCODONE (immediate release) | Given | 12/27/19 | 25 mg | | | | (ROXICODONE) tablet 5-25 mg 5- | | 13 3:22 | | | | | mg, oral, EVERY 3 HOURS | | PM PDT | | | | | NEEDED, Starting Sat12/26/12 at | | | | | | | 0648, Until Sat12/26/12 at 2317, | | | | | | | severe pain | | | | | | + +-------+ +-------+---+---+ +-------+ +-------+---+---+ | Given | 12/27/19 | 25 mg | | | | | 13 12:23 | | | | | | PM PDT | | | | +-------+ +-------+---+---+ | Given | 12/27/19 | 25 mg | | | | | 13 8:33 | | | | | | AM PDT | | | | +-------+ +-------+---+---+ +---+---+ | | | +---+---+ + +-------+ +------+---+---+ | polyethylene glycol (MIRALAX) | Given | 12/27/19 | 17 g | | | | powder 17 g 17 g, oral, DAILY, | | 13 8:33 | | | | | First dose (after last | | AM PDT | | | | | modification) on Sat12/24/12 at | | | | | | | 0900, Until Discontinued | | | | | | + +-------+ +------+---+---+ +-------+ +------+---+---+ | Given | 12/26/19 | 17 g | | | | | 13 9:10 | | | | | | AM PDT | | | | +-------+ +------+---+---+ | Given | 12/25/19 | 17 g | | | | | 13 8:37 | | | | | | AM PDT | | | | +-------+ +------+---+---+ +---+---+ | | | +---+---+ + + + +---------+---+---+ | scopolamine (TRANSDERM-SCOPE) | Applied | 12/24/19 | 1 patch | | | | 1.5 mg 1 patch 1 patch, | Patch | 13 10:24 | | | | | transdermal, EVERY 72 HOURS, | | AM PDT | | | | | First dose on Sat12/23/12 at | | | | | | | 1215, Until Discontinued | | | | | | + + + +---------+---+---+ +-------+ +---------+---+---+ | Given | 12/24/19 | 1 patch | | | | | 13 10:20 | | | | | | AM PDT | | | | +-------+ +---------+---+---+ +---+---+ | | | +---+---+ + +-------+ + +---+---+ | senna-docusate (SENOKOT S) | Given | 12/25/19 | 1 tablet | | | | 8.6-50 mg 1 tablet 1 tablet, | | 13 8:37 | | | | | oral, TWICE DAILY, First dose on | | AM PDT | | | | | 12/23/12 at 2315, Until | | | | | | | Discontinued | | | | | | + +-------+ + +---+---+ +-------+ + +---+---+ | Given | 12/25/19 | 1 tablet | | | | | 13 12:18 | | | | | | AM PDT | | | | +-------+ + +---+---+ +---+---+ | | | +---+---+ + +-------+ +---------+---+---+ | senna-docusate (SENOKOT S) | Given | 12/27/19 | 2 | | | | 8.6-50 mg 2 tablet 2 tablet, | | 13 8:33 | tablets | | | | oral, TWICE DAILY, First dose | | AM PDT | | | | | (after last modification) on Sat | | | | | | | 12/24/12 at 2100, Until | | | | | | | Discontinued | | | | | | + +-------+ +---------+---+---+ +-------+ +---------+---+---+ | Given | 12/26/19 | 2 | | | | | 13 8:18 | tablets | | | | | PM PDT | | | | +-------+ +---------+---+---+ | Given | 12/26/19 | 2 | | | | | 13 9:10 | tablets | | | | | AM PDT | | | | +-------+ +---------+---+---+ +---+---+ | | | +---+---+ documented in this encounter
--- OUTSIDE RECORDS SUMMARY | ~2019-10-16 | XMS | Encounter Summary ---
Demographics + + + | Address | [address] | | | [place] [address] | + + + | Home Phone | | + + + | Preferred Language | Unknown | + + + | Marital Status | | + + + | Episcopalian Affiliation | PRE | + + + [...] [address], [place] | | | | | [address] | | + + + + + | Bebe Terrazas | ECON | Unknown | Unavailable | + + + + + | Arden Hammondi | ECON | Unknown | | + + + + + Care Team Providers + +------+ + | Care Cord Splicer Name | Role | Phone | + +------+ + | Crissy Santoyo PA-C | PCP | | + +------+ + Encounter Details +--------+ + + + + | Date | Type | Department | Care Team | Description | +--------+ + + + + | 07/16/ | Results | [facility] at [facility] | Abdias Barger MD | | | 2012 | Only | [address] | [address] [facility] | | | | | [place], [place] | [address], | | | | | [address] | [place] [address] | | | | | | [phone] | | | | | | | [...] | + +--------+ + + + | CAP GLU,POC | Routin | 07/17/2012 | | Results for this | | | e | 7:20 AM | | procedure are in the | | | | PDT | | results section. | + +--------+ + + + | CAP GLU,POC | Routin | 07/16/2012 | | Results for this | | | e | 8:55 PM | | procedure are in the | | | | PDT | | results section. | + +--------+ + + + | CAP GLU,POC | Routin | 07/16/2012 | | Results for this | | | e | 5:51 PM | | procedure are in the | | | | PDT | | results section. | + +--------+ + + + | CAP GLU,POC | Routin | 07/16/2012 | | Results for this | | | e | 11:38 AM | | procedure are in the | | | | PDT | | results section. | + +--------+ + + + | X-RAY SPINE | Routin | 07/16/2012 | | Results for this | | LUMBOSACRAL 1 VIEW | e | 9:55 AM | | procedure are in the | | | | PDT | | results section. | + +--------+ + + + | SO GLUPOC | Routin | 07/16/2012 | | Results for this | | | e | 8:01 AM | | procedure are in the | | | | PDT | | results section. | + +--------+ + + + documented in this encounter Results SO MORAESPOC (07/17/2012 7:20 AM PDT) + +---------+ + + + | Component | Value | Ref Range | Performed | Pathologist | | | | | At | Signature | + +---------+ + + + | GLUCOSE, | 129 (H) | 70 - 100 mg/dL | [facility] | | | POC | | | [facility] | | + +---------+ + + + + + | Specimen | + + | | + + + + + + + | Performing | Address | City/State/Zipcode | Phone Number | | Organization | | | | + + + + + | [facility] | [address] | [place] | | | LAB | | [address] | | + + + + + | [facility] | [address] | [place], [place] | | | LAB | | [address] | | + + + + + CAP GLU,POC (07/16/2012 8:55 PM PDT) + +---------+ + + + | Component | Value | Ref Range | Performed | Pathologist | | | | | At | Signature | + +---------+ + + + | GLUCOSE, | 186 (H) | 70 - 100 mg/dL | [facility] | | | POC | | | [facility] | | + +---------+ + + + + + | Specimen | + + | | + + + + + + + | Performing | Address | City/State/Zipcode | Phone Number | | Organization | | | | + + + + + | [facility] | [address] | [place], [place] | | | LAB | | [address] | | + + + + + | [facility] | [address] | [place], [place] | | | LAB | | [address] | | + + + + + CAP CHIQUI MORAES (07/16/2012 5:51 PM PDT) + +---------+ + + + | Component | Value | Ref Range | Performed | Pathologist | | | | | At | Signature | + +---------+ + + + | GLUCOSE, | 177 (H) | 70 - 100 mg/dL | [facility] | | | POC | | | [facility] | | + +---------+ + + + + + | Specimen | + + | | + + + + + + + | Performing | Address | City/State/Zipcode | Phone Number | | Organization | | | | + + + + + | [facility] | [address] | [place], [place] | | | LAB | | [address] | | + + + + + | [facility] | [address] | [place], [place] | | | LAB | | [address] | | + + + + + CAP GLU,POC (07/16/2012 11:38 AM PDT) + +---------+ + + + | Component | Value | Ref Range | Performed | Pathologist | | | | | At | Signature | + +---------+ + + + | GLUCOSE, | 189 (H) | 70 - 100 mg/dL | [facility] | | | POC | | | [facility] | | + +---------+ + + + + + | Specimen | + + | | + + + + + + + | Performing | Address | City/State/Zipcode | Phone Number | | Organization | | | | + + + + + | [facility] | [address] | [place], [place] | | | LAB | | [address] | | + + + + + | [facility] | [address] | [place], [place] | | | LAB | | [address] | | + + + + + X-RAY SPINE LUMBOSACRAL 1 VIEW (07/16/2012 9:55 AM PDT) + + | Specimen | + + | | + + + + + | Narrative | Performed At | + + + | LUMBAR SPINE; 1 VIEW, LATERAL CLINICAL INFORMATION: | [facility] | | Lateral intraoperative view for localization of disc levels. | [facility] | | FINDINGS: An angled probe is present at the posterior L3-4 facet | | | joint level. Findings are otherwise similar to recent studies. | | + + + + + | Procedure Note | + + | Interface, Lab Results [facility] - 10/25/2016 4:51 PM PDT LUMBAR SPINE; 1 VIEW, | | LATERALCLINICAL INFORMATION: Lateral intraoperative view for localization of disc | | levels.FINDINGS: An angled probe is present at the posterior L3-4 facet joint level. | | Findings are otherwise similar to recent studies. | |CLINICAL INFORMATION: Lateral intraoperative view for localization of disc levels. | | | | | | | |FINDINGS: An angled probe is present at the posterior L3-4 facet joint level. Findings are otherwise similar to recent studies. | + + + + + + + | Performing | Address | City/State/Zipcode | Phone Number | | Organization | | | | + + + + + | [facility] | [address] | [place], [place] | [phone] | | | | [address] | | + + + + + CAP CHIQUI MORAES (07/16/2012 8:01 AM PDT) + +---------+ + + + | Component | Value | Ref Range | Performed | Pathologist | | | | | At | Signature | + +---------+ + + + | GLUCOSE, | 206 (H) | 70 - 100 mg/dL | [facility] | | | POC | | | [facility] | | + +---------+ + + + + + | Specimen | + + | | + + + + + + + | Performing | Address | City/State/Zipcode | Phone Number | | Organization | | | | + + + + + | [facility] | [address] | [place], [place] | | | LAB | | [address] | | + + + + + | [facility] | [address] | [place] | | | LAB | | [address] | | + + + + + documented in this encounter Visit Diagnoses Not on filedocumented in this encounter"
--- OUTSIDE RECORDS SUMMARY | ~2019-10-16 | XMS | Encounter Summary ---
Demographics + + + | Address | [address] | | | [place] [address] | + + + | Home Phone | | + + + | Preferred Language | Unknown | + + + | Marital Status | | + + + | Taoist Affiliation | PRE | + + + [...] [address], [place] | | | | | [address] | | + + + + + | Bebe Merino | ECON | Unknown | Unavailable | + + + + + | Arden Hammondi | ECON | Unknown | | + + + + + Care Team Providers + +------+ + | Care Multimedia Developer Name | Role | Phone | + +------+ + | Crissy Santoyo PA-C | PCP | | + +------+ + Encounter Details +--------+ + + + + | Date | Type | Department | Care Team | Description | +--------+ + + + + | 06/18/ | Office | [facility] at [facility] | Other, Faculty | Progress Note | | 2013 | Visit-Trans | [address] | [phone] | | | | cribed | [place], [place] | | | | | | [address] | | | +--------+ + + + [...] documented as of this encounter Progress Notes Other, Faculty - 11/12/2016 11:47 AM PDTPatient: MARY MERINO Age: 42 years Sex: Female : 1970 Associated Diagnoses: BACK PAIN NOS; Hypertension Author: Summer Rodriguez NP History of Present Illness Mary Merino is a 42 yo female who comes in today for what she expected to be a narcotic refill. However, on her routine UDS at last visit, it was discovered that there was no evide nce of oxycodone in her urine but there was methamphetamines. In addition, it appeared that her urine had been altered, most likely diluted with water. When I confronted herwith this finding she states that the reason there was no oxycodone in her urine was because she hadn't been taking any for over a month. However, according to [facility] PDMP, she was given 360 tablets of 5 mg from [facility] on 04/17/13, which was suppose to last a month, not to mention she told me at our firstvisit that she still had a couple days of pill s left. She states the reason Methamphetamines were in her urine is because she has been taking col d medicine and the reason her urine seemed diluted is because she drank a bunch of water marko or to the test. I have told her that I am more than happy to provide her with medical care for her DM, HTN, etc, but I and no provider within [facility] will be prescribing her Narcotics. Review of Systems ROS reviewed as documented in chart From last visit. Health Status Allergies: Allergic Reactions (Selected) Severity Not Documented Codeine- Vomiting and stomach cramps. Latex- Skin removal. Morphine- No reactions were documented. Sulfa drugs- Vomiting and stomach cramps. Current medications: (Selected) Prescriptions Prescribed ibuprofen 800 mg oral tablet: = 1 tab, Oral, BID, # 60 tab, Refills 5, Maintenance, Pharmac y: [facility] oxyCODONE 20 mg oral tablet: = 1 tab, Oral, TID, # 90 tab, Refills 0, Maintenance Documented Medications Documented Cozaar 25 mg oral tablet: = 1 tab, Oral, Bedtime, Maintenance PROzac 20 mg oral capsule: = 1 cap, Oral, Bedtime, Maintenance Zanaflex 2 mg oral tablet: Maintenance Zantac 150 oral tablet: = 1 tab, Oral, Daily, Maintenance, NEEDED albuterol 90 mcg/inh MDI: 2 puff(s), INH, QID, PRN Wheezing, 0 Refill(s) metFORMIN 500 mg oral tablet: = 1 tab, Oral, BID, Maintenance Problem List: Medical Moderate recurrent major depression / 85381302 / Confirmed Gastroesophageal reflux disease / 259548356 / Confirmed Back pain / 1052390098 / Confirmed Essential hypertension / 76964449 / Confirmed Asthma / 523979292 / Confirmed Type 2 diabetes mellitus / 848120454 / Confirmed Obesity / 4853161790 / Confirmed Histories Past Medical History: Include past medical history Resolved Lumbar and Lumbosacral Fusion of the Posterior Column, Posterior Technique (81.07): Resolv ed. Family History: Include family history Emphysema Mother Asthma Mother Family Sister Arrhythmia Family Anemia Sister High blood pressure Family Arthritis Mother Depression Mother DM - Diabetes mellitus Mother Glaucoma Sister Procedure/Surgery History: Include procedure/surgery history Breast reduction (249302265) in 2001 at 31 Years. Laparoscopic cholecystectomy (76582103). section (99178454). Nasal septoplasty (47436664). Social History Social history (ST). Social & Psychosocial Habits No Data Available Physical Examination VS/Measurements Vital Signs/Measurements Progress Note 06/18/2013 16:51 PDTTemperature Oral36.5 DegCPrimary PainLocationBack Primary Pain Intensit y5 Peripheral Pulse Mzvu164 bpmRespiratory Rate16 breaths/minuteSystolic Blood Qyoinczb378 m mHg HIDiastolic Blood Gzhddfpa791 mmHg HIMean Arterial Pressure, Yawo530 mmHgWeight Measur ed101 kgHeight/Length Ptretcvs099 cm , No Vitals Data Available Vital Signs are the last 20 in the past 24 hours. General: Alert and oriented, No acute distress. Integumentary: Warm, Dry, [place]. Neurologic: Alert, Oriented, Normal sensory. Psychiatric: Cooperative, Appropriate mood &affect, Normal judgment. Impression and Plan Diagnosis BACK PAIN NOS (ICD9 724.5). Hypertension (ICD9 401.9). Plan: - Follow up for routine medical care - Resources for Meth treatment and recover programs given -Understands that no narcotics will be prescribed to her - Blood pressure elevated today in clinic - I have given her a refill on Cozaar and albuterol. Patient Instructions: Methamphetamine Abuse, Complications, Summer Rodriguez Within 3 months. Counseled: Patient, Spouse, Regarding medications. Orders Include Orders (Selected). Prescriptions Prescribed Cozaar 25 mg oral tablet: = 1 tab, Oral, Bedtime, # 30 tab, Refills 5, Maintenance, [facility] albuterolCFC free 90 mcg/inh inhalation aerosol: 2 puff(s), INH, QID, PRN Wheezing, # 1 EA, Refills 2, Maintenance, [facility] documented in this encounter Plan of Treatment Not on filedocumented as of this encounter Visit Diagnoses Not on filedocumented in this encounter"
--- OUTSIDE RECORDS SUMMARY | ~2019-10-16 | XMS | Encounter Summary ---
Demographics + + + | Address | [address] | | | [place] [address] | + + + | Home Phone [...] [address], [place] | | | | | [address] | | + + + + + | Bebe Merino | ECON | Unknown | Unavailable | + + + + + | Arden Hammondi | ECON | Unknown | | + + + + + Care Team Providers + +------+ + | Care Crop Grain Or Livestock Farm Manager Name | Role | Phone | + +------+ + | Crissy Santoyo PA-C | PCP | | + +------+ + Encounter Details +--------+ + + + + | Date | Type | Department | Care Team | Description | +--------+ + + + + | 08/14/ | Results | [facility] | Abdias Barger MD | | | 2012 | Only | [address] | [address] [facility] [address] | | | | | [place], [place] | [address], | | | | | [address] | [place] [address] | | | | | | [phone] | | | | | | | [...] | CBC W/DIFF, NO | Routin | 08/22/2012 | | Results for this | | REFLEX | e | 1:15 PM | | procedure are in the | | | | PDT | | results section. | + +--------+ + + + | LAB OTHER | Routin | 08/22/2012 | | Results for this | | | e | 1:15 PM | | procedure are in the | | | | PDT | | results section. | + +--------+ + + + | SEDIMENTATION RATE | Routin | 08/22/2012 | | Results for this | | | e | 1:15 PM | | procedure are in the | | | | PDT | | results section. | + +--------+ + + + | CT BIOPSY | Routin | 08/14/2012 | | Results for this | | INTERVERTEBRAL DISC | e | 12:53 PM | | procedure are in the | | - [facility] | | PDT | | results section. | | PERFORMED | | | | | + +--------+ + + + | CBC W/DIFF, NO | Routin | 08/14/2012 | | Results for this | | REFLEX | e | 12:15 PM | | procedure are in the | | | | PDT | | results section. | + +--------+ + + + | SEDIMENTATION RATE | Routin | 08/14/2012 | | Results for this | | | e | 12:15 PM | | procedure are in the | | | | PDT | | results section. | + +--------+ + + + | CAP GLU,POC | Routin | 08/14/2012 | | Results for this | | | e | 9:48 AM | | procedure are in the | | | | PDT | | results section. | + +--------+ + + + | CULTURE, FUNGUS | Routin | 08/14/2012 | | Results for this | | | e | 8:58 AM | | procedure are in the | | | | PDT | | results section. | + +--------+ + + + | CULTURE, WOUND | Routin | 08/14/2012 | | Results for this | | ABSCESS OR ASPIRATE | e | 8:58 AM | | procedure are in the | | W/ ANAEROBE | | PDT | | results section. | + +--------+ + + + | CULTURE, AFB (ALL | Routin | 08/14/2012 | | Results for this | | SPEC TYPES EXCEPT | e | 8:58 AM | | procedure are in the | | BLOOD) | | PDT | | results section. | + +--------+ + + + documented in this encounter Results SEDIMENTATION RATE (08/22/2012 1:15 PM PDT) + +--------+ + + + | Component | Value | Ref Range | Performed | Pathologist | | | | | At | Signature | + +--------+ + + + | SEDIMENTATI | 38 (H) | 0 - 20 mm/hr | [...] [facility] | [address] | [place], [place] | | | LAB | | [id number] | | + + + + + | [facility] | [address] | [place] | | | LAB | | [id number] | | + + + + + CBC W/DIFF, NO REFLEX (08/22/2012 1:15 PM PDT) + + + + + + | Component | Value | Ref Range | Performed | Pathologist | | | | | At | Signature | + + + + + + | WHITE CELL | 12.7 (H) | 4.5 - 10.5 | [facility] | | | COUNT | | x10(3)/mcL | [facility] | | + + + + + + | RED CELL | 4.75 | 4.20 - 5.40 | [facility] | | | COUNT | | x10(6)/mcL | [facility] | | + + + + + + | HEMOGLOBIN | 14.1 | 12.0 - 16.0 | [facility] | | | | | gm/dL | [facility] | | + + + + + + | HEMATOCRIT | 42.5 | 37.0 - 47.0 % | [facility] | | | | | | [facility] | | + + + + + + | MCV | 89.6 | 80.0 - 100.0 fL | [facility] | | | | | | [facility] | | + + + + + + | MCH | 29.8 | 27.0 - 34.0 pg | [facility] | | | | | | [facility] | | + + + + + + | MCHC | 33.2 | 32.0 - 36.0 | [facility] | | | | | gm/dL | [facility] | | + + + + + + | RDW | 13.2 | 11.5 - 14.5 % | [facility] | | | | | | [facility] | | + + + + + + | PLATELET | 288 | 150 - 400 | [facility] | | | COUNT | | x10(3)/mcL | [facility] | | + + + + + + | MPV | 9.0 | 7.4 - 10.4 fL | [facility] | | | | | | [facility] | | + + + + + + | NEUTROPHIL | 62.4 | 40.2 - 78.0 % | [facility] | | | % | | | [facility] | | + + + + + + | LYMPHOCYTE | 25.8 | 15.5 - 49.1 % | [facility] | | | % | | | [facility] | | + + + + + + | MONOCYTE % | 7.1 | 1.7 - 8.9 % | [facility] | | | | | | [facility] | | + + + + + + | EOS % | 4.1 | 0.0 - 5.2 % | [facility] | | | | | | [facility] | | + + + + + + | BASO % | 0.6 | 0.0 - 2.0 % | [facility] | | | | | | [facility] | | + + + + + + | NEUTROPHIL | 7.9 (H) | 0.9 - 7.7 | [facility] | | | # | | x10(3)/mcL | [facility] | | + + + + + + | LYMPHOCYTE | 3.3 | 1.0 - 3.4 | [facility] | | | # | | x10(3)/mcL | [facility] | | + + + + + + | MONOCYTE # | 0.9 (H) | 0.1 - 0.6 | [facility] [...] [place] | | | LAB | | [id number] | | + + + + + | [facility] | [address] | [place], [place] | | | LAB | | [id number] | | + + + + + LAB OTHER (08/22/2012 1:15 PM PDT) + + + + + + | Component | Value | Ref Range | Performed | Pathologist | | | | | At | Signature | + + + + + + | MISC REF | [id number] dap 10-50 | | [facility] | | | TEST NAME | | | [facility] | | + + + + + + | MISC REF | See NoteComment: Test | | [facility] | | | TEST RESULT | name: DRUG ABUSE PANEL | | [facility] | | | | 10-50 To view report see | | | | | | Scanned Send-Out Lab | | | | | | Tests tab in PowerChart. | | | | | | Reference Lab Report | | | | | | will be distributed to | | | | | | providers via the normal | | | | | | lab chart production. | | | | + + + + + + + + | Specimen | + + | | + + + + + + + | Performing | Address | City/State/Zipcode | Phone Number | | Organization | | | | + + + + + | [facility] | [address] | [place], [place] | | | LAB | | [id number] | | + + + + + | [facility] | [address] | [place], [place] | | | LAB | | [id number] | | + + + + + CT BIOPSY INTERVERTEBRAL DISC - [facility] PERFORMED (08/14/2012 12:53 PM PDT) + + | Specimen | + + | | + + + + + | Narrative | Performed At | + + + | CT BIOPSY INTERVERTEBRAL DISC L3-4 CLINICAL INFORMATION: | [facility] | | Prior discectomy. Persistent elevated sedimentation rate. Evaluate for | RADIOLOGY | | infection. PROCEDURE: After prior informed consent, time | | | out, patient was positioned in left lateral decubitus view. Good | | | placement and localization with skin marking at the L3-4 level. The | | | skin was marked and after Betadine skin prep, draping and 1% buffered | | | Xylocaine local anesthetic carried deep to the vertebral body and disk | | | space, coaxially through a 16-gauge Bonopty cannula, cores using a | | | 16-gauge Osty-Core needle were acquired in addition to advancement of | | | the Bonopty needle into the disk space. A small amount of serous fluid | | | was aspirated. All the specimens were placed in a specimen cup that | | | was sterile for culture. Conscious sedation protocol one hour provided | | | by Ronald Roman RN. Medications: 5 mg Versed, 300 mcg | | | fentanyl IV. At procedures end, 5 mL of 0.5% bupivacaine was injected, | | | a Band-Aid applied. The procedure was tolerated without significant | | | difficulty or complication. Some pain secondary to interaction with | | | the right third nerve ganglion resulted in necessitating redirection | | | of the needle to an asymptomatic plane. FINDINGS: A small | | | amount of gas within the disk space, adjacent to paravertebral soft | | | tissues is noted postprocedure. No large hematomas identified. The | | | projection of the ultimate needle placement is away from the third | | | ganglion. No large hematomas identified. Postprocedure: | | | Approximately 2 hours, the patient had some discomfort at the biopsy | | | site within the paravertebral soft tissues, reported some minimal | | | paresthesias in the knee region. This may be secondary to the | | | infiltration of the local anesthetic, adjacent to that ganglion. She | | | has a follow-up appointment with Dr. Barger on the 22 of August. | | | IMPRESSION: Successful aspiration L34 disc and adjacent biopsy | | | of lower endplate L3 vertebral body. Microbiology pending. | | + + + + + | Procedure Note | + + | Interface, [facility] 5:[address] BIOPSY INTERVERTEBRAL | | DISC L3-4CLINICAL INFORMATION: Prior discectomy. Persistent elevated sedimentation rate. | | Evaluate for infection. PROCEDURE: After prior informed consent, time out, patient was | | positioned in left lateral decubitus view. Good placement and localization with skin | | marking at the L3-4 level. The skin was marked and after Betadine skin prep, draping and | | 1% buffered Xylocaine local anesthetic carried deep to the vertebral body and disk | | space, coaxially through a 16-gauge Bonopty cannula, cores using a 16-gauge Osty-Core | | needle were acquired in addition to advancement of the Bonopty needle into the disk | | space. A small amount of serous fluid was aspirated. All the specimens were placed in a | | specimen cup that was sterile for culture. Conscious sedation protocol one hour provided | | by Ronald Roman RN. Medications: 5 mg Versed, 300 mcg fentanyl IV. At procedures end, | | 5 mL of 0.5% bupivacaine was injected, a Band-Aid applied. The procedure was tolerated | | without significant difficulty or complication. Some pain secondary to interaction with | | the right third nerve ganglion resulted in necessitating redirection of the needle to an | | asymptomatic plane. FINDINGS: A small amount of gas within the disk space, adjacent to | | paravertebral soft tissues is noted postprocedure. No large hematomas identified. The | | projection of the ultimate needle placement is away from the third ganglion. No large | | hematomas identified. Postprocedure: Approximately 2 hours, the patient had some | | discomfort at the biopsy site within the paravertebral soft tissues, reported some | | minimal paresthesias in the knee region. This may be secondary to the infiltration of | | the local anesthetic, adjacent to that ganglion. She has a follow-up appointment with | | Dr. Barger on the 22 of August. IMPRESSION: Successful aspiration L34 disc and adjacent | | biopsy of lower endplate L3 vertebral body. Microbiology pending. | | | |Postprocedure: Approximately 2 hours, the patient had some discomfort at the biopsy site wi thin the paravertebral soft tissues, reported some minimal paresthesias in the knee region. This may be secondary to the | |infiltration of the local anesthetic, adjacent to that ganglion. She has a follow-up appoin tment with Dr. Barger on the 22 of August. | | | | | | | |IMPRESSION: Successful aspiration L34 disc and adjacent biopsy of lower endplate L3 verteb ral body. Microbiology pending. | + + + + + + + | Performing | Address | City/State/Zipcode | Phone Number | | Organization | | | | + + + + + | [facility] | [address] | [place] | [phone] | | | | [address] | | + + + + + SEDIMENTATION RATE (08/14/2012 12:15 PM PDT) + +--------+ + + + | Component | Value | Ref Range | Performed | Pathologist | | | | | At | Signature | + +--------+ + + + | SEDIMENTATI | 47 (H) | 0 - 20 mm/hr | [facility] | | | ON RATE | | | [facility] | | + +--------+ + + + + + | Specimen | + + | | + + + + + + + | Performing | Address | City/State/Zipcode | Phone Number | | Organization | | | | + + + + + | [facility] | [address] | [place], [place] | | | LAB | | [address] | | + + + + + | [facility] | [address] | [place], [place] | | | LAB | | [address] | | + + + + + CBC W/LEROY NO REFLEX (08/14/2012 12:15 PM PDT) + + + + + + | Component | Value | Ref Range | Performed | Pathologist | | | | | At | Signature | + + + + + + | WHITE CELL | 11.1 (H) | 4.5 - 10.5 | [facility] | | | COUNT | | x10(3)/mcL | [facility] | | + + + + + + | RED CELL | 4.32 | 4.20 - 5.40 | [facility] | | | COUNT | | x10(6)/mcL | [facility] | | + + + + + + | HEMOGLOBIN | 13.0 | 12.0 - 16.0 | [facility] | | | | | gm/dL | [facility] | | + + + + + + | HEMATOCRIT | 38.9 | 37.0 - 47.0 % | [facility] | | | | | | [facility] | | + + + + + + | MCV | 89.9 | 80.0 - 100.0 fL | [facility] | | | | | | [facility] | | + + + + + + | MCH | 30.0 | 27.0 - 34.0 pg | [facility] | | | | | | [facility] | | + + + + + + | MCHC | 33.4 | 32.0 - 36.0 | [facility] | | | | | gm/dL | [facility] | | + + + + + + | RDW | 13.3 | 11.5 - 14.5 % | [facility] | | | | | | [facility] | | + + + + + + | PLATELET | 240 | 150 - 400 | [facility] | | | COUNT | | x10(3)/mcL | [facility] | | + + + + + + | MPV | 9.4 | 7.4 - 10.4 fL | [facility] | | | | | | [facility] | | + + + + + + | NEUTROPHIL | 56.1 | 40.2 - 78.0 % | [facility] | | | % | | | [facility] | | + + + + + + | LYMPHOCYTE | 30.0 | 15.5 - 49.1 % | [facility] | | | % | | | [facility] | | + + + + + + | MONOCYTE % | 6.8 | 1.7 - 8.9 % | [facility] | | | | | | [facility] | | + + + + + + | EOS % | 6.6 (H) | 0.0 - 5.2 % | [facility] | | | | | | [facility] | | + + + + + + | BASO % | 0.5 | 0.0 - 2.0 % | [facility] | | | | | | [facility] | | + + + + + + | NEUTROPHIL | 6.2 | 0.9 - 7.7 | [facility] | | | # | | x10(3)/mcL | [facility] | | + + + + + + | LYMPHOCYTE | 3.3 | 1.0 - 3.4 | [facility] | | | # | | x10(3)/mcL | [facility] | | + + + + + + | MONOCYTE # | 0.8 (H) | 0.1 - 0.6 | [facility] | | | | | x10(3)/mcL | [facility] | | + + + + + + | EOS # | 0.7 (H) | 0.0 - 0.4 | [facility] [...] [facility] | [address] | [place], [place] | | | LAB | | [address] | | + + + + + | [facility] | [address] | [place], [place] | | | LAB | | [address] | | + + + + + CAP GLU,POC (08/14/2012 9:48 AM PDT) + +---------+ + + + [...] [facility] | [address] | [place], [place] | | | LAB | | [address] | | + + + + + | [facility] | [address] | [place], [place] | | | LAB | | [address] | | + + + + + CULTURE, WOUND ABSCESS OR ASPIRATE W/ ANAEROBE (08/14/2012 8:58 AM PDT) + + + + + + | Component | Value | Ref Range | Performed | Pathologist | | | | | At | Signature | + + + + + + | CULTURE | Patient:THELMA MERINOLY | | [facility] | | | RESULT | EUFEMIA | | [facility] | | | | | | | | | | | | | | | | | | | | | | | | | | | | Routine Cultures | | | | | | PROCEDURE: | | | | | | Wound Culture | | | | | | [P1] | | | | | | COLLECTED: | | | | | | 08/14/2012 | | | | | | 08:58 PDTSOURCE: | | | | | | | | | | | | Fine Needle Asp | | | | | | STARTED: | | | | | | | | | | | | 08/14/2012 14:08 | | | | | | PDTFREE TEXT SOURCE: | | | | | | Intervertebral | | | | | | disk ACCESSION: | | | | | | | | | | | | [id number] SITE: | | | | | | | | | | | | Back FINAL | | | | | | REPORTSFinal Report | | | | | | []Verified Date/Time: | | | | | | 08/19/2012 08:22 PDTNo | | | | | | growth STAINS / | | | | | | PREPARATIONSGram [address] | | | | | | []Verified Date/Time: | | | | | | 08/14/2012 14:40 PDT No | | | | | | organisms seen. No | | | | | | white blood cells | | | | | | Performing LocationsP1: | | | | | | This test was | | | | | | performed at: | | | | | | [facility] | | | | + + + + + + + + | Specimen | + + | | + + + + + + + | Performing | Address | City/State/Zipcode | Phone Number | | Organization | | | | + + + + + | [facility] | [address] | [place], [place] | | | LAB | | [address] | | + + + + + | [facility] | [address] | [place], [place] | | | LAB | | [address] | | + + + + + CULTURE, FUNGUS (08/14/2012 8:58 AM PDT) + + + + + + | Component | Value | Ref Range | Performed | Pathologist | | | | | At | Signature | + + + + + + | CULTURE | Patient:THELMA MERINOLY | | [facility] | | | RESULT | EUFEMIA | | [facility] | | | | | | | | | | | | | | | | | | | | | | | | | | | | Fungal Cultures | | | | | | PROCEDURE: | | | | | | Fungus | | | | | | Culture [P1] | | | | | | COLLECTED: | | | | | | 08/14/2012 | | | | | | 08:58 PDTSOURCE: | | | | | | | | | | | | Fine Needle Asp | | | | | | STARTED: | | | | | | | | | | | | 08/14/2012 14:09 | | | | | | PDTFREE TEXT SOURCE: | | | | | | | | | | | | | | | | | | ACCESSION: | | | | | | | | | | | | [id number] SITE: | | | | | | FINAL REPORTSFinal | | | | | | Report []Verified | | | | | | Date/Time: 09/10/2012 | | | | | | 11:06 PDTNo fungus | | | | | | isolated at 4 weeks. | | | | | | Performing LocationsP1: | | | | | | This test was | | | | | | performed at: | | | | | | [facility] | | | | + + + + + + + + | Specimen | + + | | + + + + + + + | Performing | Address | City/State/Zipcode | Phone Number | | Organization | | | | + + + + + | [facility] | [address] | [place] | | | LAB | | [address] | | + + + + + | [facility] | [address] | [place], [place] | | | LAB | | [address] | | + + + + + CULTURE, AFB (ALL SPEC TYPES EXCEPT BLOOD) (08/14/2012 8:58 AM PDT) + + + + + + | Component | Value | Ref Range | Performed | Pathologist | | | | | At | Signature | + + + + + + | CULTURE | Patient:THELMA MERINOLY | | [facility] | | | RESULT | EUFEMIA | | [facility] | | | | | | | | | | | | | | | | | | | | | | | | | | | | AFB Cultures | | | | | | PROCEDURE: | | | | | | zzAcid Fast | | | | | | Bacilli | | | | | | COLLECTED: | | | | | | 08/14/2012 | | | | | | 08:58 PDT | | | | | | | | | | | | Culture [P1]SOURCE: | | | | | | | | | | | | Fine Needle Asp | | | | | | STARTED: | | | | | | | | | | | | 08/14/2012 14:09 | | | | | | PDTFREE TEXT SOURCE: | | | | | | | | | | | | | | | | | | ACCESSION: | | | | | | | | | | | | [id number] SITE: | | | | | | FINAL REPORTSFinal | | | | | | Report []Verified | | | | | | Date/Time: 10/08/2012 | | | | | | 09:43 PDTNo acid fast | | | | | | bacilli isolated at 8 | | | | | | weeks STAINS / | | | | | | PREPARATIONSAFB [] | | | | | | Verified Date/Time: | | | | | | 08/15/2012 12:40 PDTNo | | | | | | acid fast bacilli seen | | | | | | by Fluorescent stain, | | | | | | culture to follow | | | | | | Performing LocationsP1: | | | | | | This test was | | | | | | performed at: | | | | | | [facility] | | | | + + + + + + + + | Specimen | + + | | + + + + + + + | Performing | Address | City/State/Zipcode | Phone Number | | Organization | | | | + + + + + | [facility] | [address] | [place], [place] | | | LAB | | [address] | | + + + + + | [facility] | [address] | [place], [place] | | | LAB | | [address] | | + + + + + documented in this encounter Visit Diagnoses Not on filedocumented in this encounter"
--- OUTSIDE RECORDS SUMMARY | ~2019-10-16 | XMS | Encounter Summary ---
Demographics + + + | Address | [address] [facility] [address] | | | [place] [address] | + + + | Home Phone | | + + + | Preferred Language | Unknown | + + + | Marital Status | | + + + | Rastafarian Affiliation | 1013 | + + + | Race | Unknown | + + + | Ethnic Group | Unknown | + + + Author + + + | Author | [facility] | | | and [place] Joséana | + + + | Organization | [facility] | | | and [place] | + + + | Address | Unknown | + + + | Phone | Unavailable | + + + Support + + + + + | Name | Relationship | Address | Phone | + + + + + | Dustin Terrazas | ECON | [place] | | | | | [address] | | + + + + + | Bebe Terrazas | ECON | [address] | | | | | [facility] [place] | | | | | [address] | | + + + + + Care Team Providers + +------+ + | Care Software Designer Name | Role | Phone | + +------+ + PCP | Unavailable | + +------+ + Encounter Details +--------+ + + + + | Date | Type | Department | Care Team | Description | +--------+ + + + + | 12/21/ | Emergency | [facility] | Michael Espinosa MD | Pain, dental | | 2014 | | [facility] | [address] | | | | | [facility] | [place] [address] | | | | | [address] | [phone] | | | | | [place], [place] | | | | | | [address] | | | | | | [phone] | | | +--------+ + + + [...] documented as of this encounter ED Notes Michael Espinosa MD - 12/21/2014 1:30 AM PDT ED Provider Notes by Michael Espinosa MD at 12/21/14129 Author: Michael Espinosa MD Service: (none) Author Type: Physician Filed: 12/21/14 0358 Date of Service: 12/21/14129 Status: Signed Loop Machine Operator: Michael Espinosa MD (Physician) [facility] Department of Emergency Medicine 1:31 AM History of Present Illness Patient Identification Nancy Terrazas is a 44 y.o. female. Patient information was obtained from patient. History/Exam limitations: none. Patient presented to the Emergency Department by: Car Chief Complaint Chief Complaint Patient presents with Dental Pain The patient complains of dental pain. Onset of symptoms was 3 days ago, with a constant cou rse since that time. Pain is located in the upper R jaw. She states it has a partial root c anal right now, and has plans to finish it. She is new to the area and has not established a dentist here yet. Pt has been seen at [facility] for the same. She received abx and pain medicat ion which she has since run out of. Pt states the pain is radiating into her lower jaw and s he is having difficulty swallowing food secondary to her pain. Pt states she has not been ta eddie ibuprofen as it upset her stomach. Pt was seen in the [facility] earlier today for the same. Since her d/c she has been able to schedule an appt with a Dentist in the morning. Pt is on plavix after an [place] in 2013. Past Medical History Diagnosis Date Hyperlipidemia Hypertension Old myocardial infarction Asthma Past Surgical History Procedure Laterality Date Cholecystectomy [...] Clot in a Vascular Stent Historical Provider HYDROcodone-acetaminophen (NORCO) 5-325 MG per tablet Take 1-2 tablets by mouth every 6 (si x) hours as needed for Pain. Do not exceed 8 in a 24 hour period. Do not take Tylenol, as t his medication has Tylenol in it. 12/20/14 12/30/14 PRICE Savage ibuprofen (MOTRIN) 400 MG tablet Take 1 tablet by mouth every 6 (six) hours as needed for P ain. 12/20/14 12/30/14 PRICE Savage losartan (COZAAR) 25 MG tablet Take 25 mg by mouth daily. Indications: High Blood Pressure Historical Provider metoprolol (TOPROL-XL) 25 MG 24 hr tablet Take 25 mg by mouth daily. Historical Provider penicillin v potassium (VEETID) 500 MG tablet Take 1 tablet by mouth 4 (four) times daily. 12/20/14 12/30/14 PRICE Savage Allergies Allergen Reactions Sulfa Antibiotics Rash Codeine [...] Concern Not on file Social History Narrative History reviewed. No pertinent family history. Review of Systems Constitutional: No fever ENT: Yes dental pain No blindness, no rhinitis, no sore throat Cardiovascular: No chest pain Respiratory: No shortness of breath, cough Gastrointestinal: No abdominal pain, N/V/D, black or bloody stools Genitourinary: No dysuria, hematuria Musculoskeletal: No acute physical injury. Skin: No laceration or rash Neuro and psych: No head injury, seizure, headache Endocrine/Heme/Lymph: No easy bruising or bleeding. Physical Exam BP 135/70 mmHg | Pulse 124 | Temp(Src) 98.5 F (36.9 C) (Oral) | Resp 18 | Ht 1.702 m (5 ' 7") | Wt 87 kg (191 lb 12.8 oz) | BMI 30.03 kg/m2 | SpO2 96% Vital Sign interpretation: Tachycardic, otherwise normal Pulse Oximetry interpretation: normal General: Alert, in no apparent distress Eyes: Non-icteric ENT: Carious R upper pre-malar, no identifiable abscess. No facial swelling. Floor of clifton th soft Neck: Supple Cardiovascular: Warm and well perfused Respiratory: No respiratory distress Abdomen: Soft, non-distended Extremities: CHILEL Back: Normal ROM Skin: Color normal Warm and dry No rash Neuro: Alert, no AMS No gross motor/sensory deficits Medical Decision Making and Emergency Department Course ED Department Course Pt presents to the ED with dental pain. She reportedly has an appt with a Dentist in the [facility], but her rx she was d/c with earlier has been canceled and her pain is not controlled. She has returned to the ED secondary to her ongoing pain. Will d/c with a short course of p ain medication and recommend f/u with her Dentist as scheduled. I have discussed my clinical impression and treatment plan with the pt. We have specificall y discussed the signs and symptoms that would constitute the need for an immediate return to the ED, the importance of continued outpatient f/u and the importance of compliance with th e d/c instructions. I have answered any questions that the pt has to the best of my ability. Based upon the pt s history, physical exam, ED course, and diagnostic studies, I feel jamel t there is no current emergent medical condition that warrants admission, transfer, or furth er ED treatment at this time. Patient Vitals for the past 24 hrs: BP Temp Temp src Pulse Resp SpO2 Height Weight 12/21/14 0157 124/82 mmHg - - 121 18 100 % - - 12/21/14 0110 135/70 mmHg 98.5 F (36.9 C) Oral 124 18 96 % 1.702 m (5' 7") 87 kg (191 l b 12.8 oz) Records Reviewed Old medical records. Nursing notes. ED Diagnosis Final diagnosis Pain, dental Disposition: ED Disposition Discharge Condition at discharge: Stable Follow-up Information Follow up With Details Comments Contact Info [facility] MD [place] [address] [facility] [address] [facility] Emergency Department in [place] If symptoms worsen [address] [facility] [address] [facility] Dental As needed [address] [facility] [address] Your Dentist as scheduled Discharge Medications: Discharge Medication List as of 12/21/2014 1:53 AM START taking these medications Details oxyCODONE-acetaminophen (PERCOCET) 5-325 MG per tablet Take 1-2 tablets by mouth every 4 (f our) hours as needed for Pain., Starting 12/21/2014, Until Sat12/31/14, Print Procedures Additional Documentation Procedures Attending Note: Documentation assistance provided by Mercedes Gutierrez (Scribe). Information recorded by the scribe has been reviewed and validated by me. I ag ree with its contents. MD Michael Hyman MD 12/21/14 0358 Fredi gonsalez in this encounter Plan of Treatment Not on filedocumented as of this encounter Visit Diagnoses + + | Diagnosis | + + | Pain, dental Unspecified disorder of the teeth and supporting structures | + + documented in this encounter
--- OUTSIDE RECORDS SUMMARY | ~2019-10-16 | XMS | Encounter Summary ---
Demographics + + + | Address | [address] | | | [place] [address] | + + + | Home Phone | | + + + | Preferred Language | Unknown | + + + | Marital Status | | + + + | Rastafari Affiliation | PRE | + + + [...] [id number], [place] | | | | | [address] | | + + + + + | Bebe Merino | ECON | Unknown | Unavailable | + + + + + | Arden Hammondi | ECON | Unknown | | + + + + + Care Team Providers + +------+ + | Care Shift Manager Name | Role | Phone | + +------+ + | Crissy Santoyo PA-C | PCP | | + +------+ + Encounter Details +--------+ + + + + | Date | Type | Department | Care Team | Description | +--------+ + + + + | 05/21/ | Office | [facility] | Other, Faculty | Progress Note | | 2013 | Visit-Trans | [address] | [phone] | | | | cribed | [place], [place] | | | | | | [address] | | | +--------+ + + + [...] encounter Progress Notes Other, Faculty - 11/12/2016 12:17 PM PDTPatient: MARY MERINO Age: 42 years Sex: Female : 1970 Associated Diagnoses: BACK PAIN NOS; DM II [Diabetes mellitus type II]; Hypertension; OBE SITY, UNSPECIFIED; REACTIVE AIRWAY DISEASE (RAD) Author: Summer Rodriguez NP Chief Complaint 05/21/2013 14:21 PDT New Patient History of Present Illness Mary is a 42 yo female who comes in today to establish care with a PCP. Her PMH is sign ificant for Chronic back pain, hypertension, diabetes, and asthma. Reports when she was14 she had a horse accident, broke her tailbone, injured her low back. States that over time it has worsened. Had an initial surgery March of 2010, by Dr. Barger. Recently had an L3-L4-L5 fusion by [facility] 12/23/2013, Dr. Amin. Has a follow up appt in 6 months with him. Since the revision, "some things" have improved. However, she continues to have neuopathic pain. Currently c/o left foot numbness. R leg pain, shooting. Takes gabapent in 300 mg HS, tolerates it "okay" makes her feel "out of it, drowsy". Takes Motrin 800 mg TI D and oxycodone [address] [place]. Denies sedati on, constipation, or negative side effects. HTN- Coozar 25 mg HS. BP in clinic is 150/96. Pt. states normally much lower. No side effec ts. Denies SOB, CP, dizziness. Denies orthopnea or swelling in legs. DM- Metformin 500 mg BID. Checksblood sugar 3x/week. Ranges 120-160. Has never had a hypogl ycemic episode, highest ever of 240. Asthma- Rare. Mild intermittent. Uses albuterol PRN GERD- Uses ranitidine PRN Depression- Currently on Prozac, 20 mg daily. Reports good mood. Normal BMs. Normal voiding. 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 Also hx. of skin R face and neck, b elow earlobe and on jawline. Hx of cervical ca at age 17, with conical procedure. Uterine ablation done in April of 2001. No longer has menses. Will sometimes have some s potting. -Was last screened for cholesterol 6 months ago. -PAP/Pelvic exam: 2009, normal -Mammogram: 2012 -Eye exam: yearly -Flu vaccine: refuses -Tetanus: up to date Review of Systems Constitutional: No fever, No chills, No sweats, No fatigue. Eye: Negative. Ear/Nose/Mouth/Throat: Negative. Respiratory: No shortness of breath, No cough, No sputum production, No wheezing. Cardiovascular: No chest pain, Nopalpitations, No peripheral edema, No syncope. Gastrointestinal: No nausea, No vomiting, No diarrhea, No constipation, No heartburn, No a bdominal pain, No melena. Genitourinary: No dysuria, No change in urine stream, No urinary frequency. Hematology/Lymphatics: Nobruising tendency, No bleeding. Endocrine: No excessive thirst, No polyuria, No cold intolerance, No heat intolerance, No excessive hunger. Musculoskeletal: Back pain: In the lower region. Integumentary: No rash, No breakdown, No skin lesion. Neurologic: Alert and oriented X4, Numbness, Tingling, No headache, No weakness. Psychiatric: No anxiety, No depression, No sleeping problems. Health Status Allergies: Allergic Reactions (Selected) Severity Not Documented Codeine- Vomiting and stomach cramps. Latex- Skin removal. Morphine- No reactions were documented. Sulfa drugs- Vomiting and stomach cramps. Current medications: (Selected) Documented Medications Documented Cozaar 25 mg oral tablet: = 1 tab, Oral, Bedtime, Maintenance PROzac 20 mg oral capsule: = 1 cap, Oral, Bedtime, Maintenance Zanaflex 2 mg oral tablet: Maintenance Zantac 150 oral tablet: = 1 tab, Oral, Daily, Maintenance, NEEDED albuterol 90 mcg/inh MDI: 2 puff(s), INH, QID, PRN Wheezing, 0 Refill(s) ibuprofen 800 mg oral tablet: = 1 tab, Oral, BID, Maintenance metFORMIN 500 mg oral tablet: = 1 tab, Oral, BID, Maintenance oxyCODONE 20 mg oral tablet: See Instructions, Refills 0, Maintenance, 1 tab Oral TID Problem List: Medical Obesity / [id number] / Confirmed Histories Past Medical History: Include past medical history Resolved Lumbar and Lumbosacral Fusion of the Posterior Column, Posterior Technique (81.07): [facility] ed. Family History: Include family history Emphysema Mother Asthma Mother Family Sister Arrhythmia Family Anemia Sister High blood pressure Family Arthritis Mother Depression Mother DM - Diabetes mellitus Mother Glaucoma Sister Procedure/Surgery History: Include procedure/surgery history Breast reduction (401032268) in 2001 at 31 Years. Laparoscopic cholecystectomy (72206234). section (15935125). Nasalseptoplasty (77018475). Social History Social history (ST). Social & Psychosocial Habits No Data Available Smoking Status : Exposure to Tobacco Smoke. 05/21/2013 14:21 PDT Exposure to Tobacco Smoke Never smoker Physical Examination VS/Measurements Vital Signs/Measurement Progress Note-PN 05/21/2013 14:21 PDTHeight/Length Avtpoyvu964 cmWeight Zbwebmpy651 kgTemperature Oral36.6 D egCPeripheral Pulse Rate89 bpmRespiratory Rate14 breaths/minuteSystolic Blood Xtsefqyv543 mm Hg HIDiastolic Blood Awmvitqw58 mmHg HIMean Arterial Pressure, Ixnt343 mmHgPrimary Pain Lo cationBack Primary Pain Intensity6 , , Vitals Temp BP MAP Pulse RR SpO2 FIO2 05/21 14:21 36.6 150/96 114 89 14 --- --- Vital Signs are the last 20 in the past 24 hours. Measurements from flowsheet : Measurements 05/21/2013 14:21 PDTHeight/Length Zeipcpql217 cmWeight Htaaltej404 kgBody Mass Index Measur ed35.86 m2 General: Alert and oriented, No acute distress. Eye: Pupils are equal, round and reactive to light, Extraocular movements are intact. HENT: Normocephalic, Oral mucosa is moist. Neck: Supple, Non-tender, No lymphadenopathy, No thyromegaly. Respiratory: Lungs are clear to auscultation, Respirations are non-labored, Breath sounds are equal. Cardiovascular: Normal rate, Regular rhythm, No murmur. Gastrointestinal: Soft, Non-tender, Non-distended. Musculoskeletal No deformity. Normal gait. Integumentary: Warm, Dry, [place]. Neurologic: Alert, Oriented, Cranial Nerves II-XIIare grossly intact. Psychiatric: Cooperative, Appropriate mood & affect, Normal judgment. Review / Management Results review: Lab results: 05/21/2013 17:13 PDT POC Hgb A1C 9.6 % HI. Impression and Plan Diagnosis BACK PAIN NOS (ICD9 724.5). DM II [Diabetes mellitus type II] (ICD9 250.00). Hypertension (ICD9 401.9). OBESITY, UNSPECIFIED (ICD9 278.00). REACTIVE AIRWAY DISEASE (RAD) (ICD9 493.90). Plan: 1. Back pain, on chronic opioid therapy - Get records from previous providers - UDS - Pain contract - PDMP confirms oxycodone dose and use - Will refill, Oxycodone 20 mg TID, Pt. understands risk associated with opioid use - Follow up in 1 month, discuss weaning off dose 2. Hypertension, DM - Continue Cozaar - Continue Metformin - CMP, CBC, microalbumin - Hgba1c POC in clinic today 9.6 (pt. left prior to lab result) - Follow up in 1 month, will need more strict glycemic control. 3. Asthma - Continue Albuterol PRN - RTC for worsening sx 4. HM - Diet, exercise, weight loss -PAP/Pelvic exam: due, needs to schedule -Mammogram: 2012 -Eye exam: yearly -Flu vaccine: refuses -Tetanus: up to date . Patient Instructions: Michael_ Custom Preventative Care for Adults - Female ([id number]), Ronna Rodriguez Within 3 months Schedule for PAP. Counseled: Patient, Spouse, Regarding diagnosis, Regarding treatment, Regarding medicatio ns, Diet, Verbalized understanding. 12:0 6 PM PDTdocumented in this encounter Plan of Treatment Not on filedocumented as of this encounter Visit Diagnoses Not on filedocumented in this encounter
--- OUTSIDE RECORDS SUMMARY | ~2019-10-16 | XMS | Encounter Summary ---
Demographics + + + | Address | [address] | | | [place] [address] | + + + | Home Phone | | + + + | Preferred Language | Unknown | + + + | Marital Status | | + + + | Restorationist Affiliation | PRE | + + + | Race | White | + + + | Ethnic Group | Not or | + + + Author + + + | Author | [facility] | + + + | Organization | [facility] | + + + | [...] #[address] | | | | | [address] | | + + + + + | Bebe Merino | ECON | Unknown | Unavailable | + + + + + | Arden Merino | ECON | Unknown | | + + + + + Care Team Providers + +------+ + | Care Truck Packer Name | Role | Phone | + [...] 2012 | | [address] | [address] | INTERBODY FUSION | | | | Rd [facility] | [place], [place] | L3-4 L3-4 | | | | Hospital Admitting | [address] | LAMINECTOMY | | | | Desk Located on the | [phone] | | | | | 9th floor | | | | | | [facility] [place] | | | | | | [address] | | | +--------+---------+ + + + [...] Tanner MD PCP: Zora Haddad DO Service: [facility] Neurosurgery Diagnoses Principal Final Diagnosis: 1. Adjacent [...] Adjacent level Degenerative Disc Disease, admitted to [facility], electively, on 12/24/19 for the procedure(s) described [...] narcotics/pain medications. Follow Up Follow up at [facility] Neuro[facility], [facility], 8th Floor, [address] [place] [address]; 01/07/13 at 10:30 am. Follow up with [...] 3:21 PM Discharging Attending: Sivakumar Tanner MD [facility] 10K [address] [address]/[place] [address] documented in t his encounter Medications at [...] in past) Materials provided Written materials in [place] Living with Type 2 Diabetes program information [...] LD, RN, CDE Inpatient Diabetes Education Pager #[phone] signed by Maricarmen Colindres RN at 12/26/2012 12:39 PM Olga Warner PA - 12/26/2012 9:47 AM PDTFormatting of this note might be different from moraima edwards original. NEUROSURGERY INPATIENT PROGRESS NOTE Hospital Day:3 Author; OLGA BULLCOK PA-C Attending Physician: Sivakumar Tanner MD Interval [...] Intake/Output Summary (Last 24 hours) at 12/26/12 0959 Last data filed at 12/25/12 2143 Gross [...] Range: 0.60-1.10 mg/dL 0.49 (L) EGFR - HUNGARIAN Latest Range: >60 mL/min >60 EGFR NON -HUNGARIAN Latest Range: >60 mL/min >60 GLUCOSE, PLASMA [...] within 1-2 weeks time. OLGA BULLOCK PA-C [facility] [address] [facility] [id number] MEDICATIONS Current Facility-Administered Medications Medication acetaminophen (TYLENOL) [...] meds, monitor, will start weaning of f CONTRACT SPECIALIST-will increase Gabapentin to 300 mg tid increase [...] home in 1-2 days. OLGA BULLOCK PA-C [facility] [address] [address]/[place] [phone] [id number] MEDICATIONS Current Facility-Administered Medications Medication acetaminophen (TYLENOL) [...] in preservative free NaCl 0.9% 50 mL CONTRACT SPECIALIST infusion insulin glargine (LANTUS) injection 20 Units [...] Latest Range: 60-99 mg/dL 257 (H) Labs [facility] and CDC pending. General: 42 y/o Female [...] with current meds, monitor, Start weaning off CONTRACT SPECIALIST-will increase Gabapent in to 300 mg tid [...] clinical course, pain management. OLGA BULLOCK PA-C [facility] [address]K [address] [address]/[place] [id number] MEDICATIONS Current Facility-Administered Medications Medication acetaminophen (TYLENOL) [...] in preservative free NaCl 0.9% 50 mL CONTRACT SPECIALIST infusion insulin lispro (HUMALOG) injection lactated ringers [...] procedure. Stable. - Neurochecks q4h - Continue [employer] meds - Pain control, anti-emetics, SCDs - Mobilize as tolerated - Keep dressings clean - ADAT - CONTRACT SPECIALIST for analgesia PARK SABILLON MD,PhD pgr [phone] documented in this e ncounter Plan of [...] WHITE | [address] | [place], [place] | | | RONAN MARSHALL OF CARE | [address] | [address] | | | TESTS | | | [...] MAR[place] | [address] | [place], [place] | | | RONAN MARSHALL OF CARE | [address] | [address] | | | TESTS | | | [...] [facility] | [address] | [place] [address] | | | SERVICES, CORE | PARK [...] (H) | 60 - 99 mg/dL | [facility] | | | PLASMA | | | [...] | | | LABORATORY | | | HUNGARIAN | | | SERVICES, | | | [...] the MDRD equation recommended by the | [facility] | | National Kidney Disease Education Program. [...] | + + + + + | [facility] | [address] | [place] [address] | | | SERVICES, CORE | PARK [...] [place] | [address] | [place], [place] | | | JOANNA POINT OF CARE | [facility] | [address] | | | TESTS | | | [...] + + + + + | [facility] | [address] | [place], [place] | | | JO[facility]NA POINT OF CARE | [address] | [address] | | | TESTS | | | [...] [place] | [address] | [place], [place] | | | JO[facility]NA POINT OF CARE | [address] | [address] | | | TESTS | | | [...] - [place] | [address] | [place], [place] | | | JO[facility]NA POINT OF CARE | [address] | [address] | | | TESTS | | | [...] | + + + + + | [facility] | [address] | [place] [address] | | | SERVICES, TIMMY | EDITH [...] | | | LABORATORY | | | HUNGARIAN | | | SERVICES, | | | [...] | + + + + + | [facility] [employer] | [address] | [place] [address] | | | SERVICES, CORE | EDITH [...] CINDY | [address] | [place], [place] | | | RONAN MARSHALL OF BRAEDEN | [facility] | [address] | | | TESTS | | | [...] [place] | [address] | [place], [place] | | | RONAN MARSHALL OF [place]RAED[place] | [facility] | [address] | | | TESTS | | | [...] (H) | 60 - 99 mg/dL | [facility] - | | | GLUCOSE, | | [...] WHITE | [address] | [place], [place] | | | JOANNA POINT OF CARE | [address] | [address] | | | TESTS | | | [...] | | | | | | the L5-S2desjcvykqi | | | | | | levels. [...] WHITE | [address] | [place], [place] | | | RONAN MARSHALL OF [place]RAED[place] | [facility] | [address] | | | TESTS | | | [...] + | [facility] | [address] | [place], [place] | | | [facility]NA [facility] | [address] | [address] | | | TESTS | | | | + + + + + OPERATION RECORD (12/24/2012 8:48 AM PDT) + + | Transcriptions | + + | Sivakumar Tanner MD - 12/23/2012 11:22 PM PDT Date of Service: 12/23/2012ttending | | Surgeon: Sivakumar Tanner MD Certified Orthotic Fitter(s): MD Juwan Ruano MD | | Preoperative Diagnoses: 1. Adjacent level degenerative disk disease at L3-4.2. L4 | | radiculopathy.3. Spondylosis.4. Herniated nucleus pulposus at L3-4.Postoperative | | Diagnoses: 1. Adjacent level degenerative disk disease at L3-4.2. L4 radiculopathy.3. | | Spondylosis.4. Herniated nucleus pulposus at L3-4.Procedures Performed: 1. Direct | | lateral interbody fusion using [place] of L3-4 on the left lateral approach.2. [...] our 3 navigated pedicle screws using our Gerton | | navigation to perform a 3D [...] caps. We tightened them down with final remote sensing scientist. We compressed | | across L3-4 bilaterally. [...] | note for this encounter.DARIN Rayo MDOHSU [id number] [facility] | | [id number], [place] [id number]: 12/23/2012 23:22:14Job #: | | [id number] | + + CBC (HEMOGRAM) ONLY (12/24/2012 [...] [facility] | [address] | [place] [address] | | | QUANG, TIMMY | EDITH [...] | | | LABORATORY | | | HUNGARIAN | | | SERVICES, | | | [...] | + + + + + | [facility] | [address] | [place] [address] | | | SERVICES, CORE | EDITH [...] [place] | [address] | [place], [place] | | | RONAN MARSHALL OF CARE | [address] | [address] | | | TESTS | | | [...] [facility] | [address] | [place] [address] | | | SERVICES, | [address] [...] | + + + + + | [facility] | [address] | [place] [address] | | | SERVICES, | [address] [...] | + + + + + | [facility] | [address] | [place] [address] | | | SERVICES, | [address] | | | | TRANSFUSION MEDICINE | | | | + + + + + INTRAOPERATIVE NEURO MONITORING (12/23/2012) + + + | Narrative | Performed At | + + + | Patient Name: Mary Merino Date of : 1970 | | | Date of Test: 12/23/2012 Place | | | of Service: IP Intra Op [id number] INTRAOPERATIVE | | | NEURO MONITORING History: [...] | | AM by: Maryann Brunner MD [employer] Surveyor of Neurology | | | Department of Clinical Neurophysiology Suggested CPT: | | | G0453 - IOM Continuous undivided attention to single patient x 8 @ 15 | | | min(s) 79488 - EMG Two Extremity Suggested Diagnosis: 336.9 [...]
--- OUTSIDE RECORDS SUMMARY | ~2019-10-16 | XMS | Encounter Summary ---
Demographics + + + | Address | [address] | | | [place] [address] | + + + | Home Phone [...] [place] | | | | | [address] | | + + + + + | Bebe Terrazas | ECON | Unknown | Unavailable | + + + + + | Arden Terrazas | ECON | Unknown | | + + + + + Care Team Providers + +------+ + | Care Facilities Flight Check Pilot Name | Role | Phone | + +------+ + | Yuriy Cardenas PA-C | PCP | | + +------+ + Encounter Details +--------+ + + + + | Date | Type | Department | Care Team | Description | +--------+ + + + + | 06/20/ | MyChart | [facility] Primary Care | Yuriy Cardenas, | RE: Medication | | 2019 | Encounter | [place] [address] | PA-C [address] | | | | [address] | [address] | | | | | [place], [place] | [place], [place] | | | | | [address] | [address] | | | | | [phone] | [phone] | | | | | | | [...]
--- OUTSIDE RECORDS SUMMARY | ~2019-10-16 | XMS | Encounter Summary ---
Demographics + + + | Address | [address] | | | [place] [address] | + + + | Home Phone [...] + + + | Author | [facility] | + + + | Organization | [facility] | + + + | [...] #[address] [place] | | | | | [address] | | + + + + + | Bebe Terrazas | ECON | Unknown | Unavailable | + + + + + | Arden Terrazas | ECON | Unknown | | + + + + + Care Team Providers + +------+ + | Care Blending Line Attendant Name | Role | Phone | + +------+ + | Yuriy Cardenas PA-C | PCP | | + +------+ + Encounter Details +--------+ + + + + | Date | Type | Department | Care Team | Description | +--------+ + + + + | 06/21/ | MyChart | [facility] Primary Care | Yuriy Cardenas, | Question | | 2019 | Encounter | [place] [address] | PA-C [address] | | | | [address] | [address] | | | | | [place], [place] | [place], [place] | | | | | [address] | [address] | | | | | [phone] | [phone] | | | | | | | [...]
--- OUTSIDE RECORDS SUMMARY | ~2019-10-16 | XMS | Encounter Summary ---
Demographics + + + | Address | [address] [facility] | | | [place] [address] | + + + | Home Phone | | + + + | Preferred Language | Unknown | + + + | Marital Status | | + + + | Mosque Affiliation | [id number] | + + + | Race | Unknown | + + + | Ethnic Group | Unknown | + + + Author + + + | Author | [facility] | | | and Juan Joséana | + + + | Organization | [facility] | | | and [place] | + + + | Address | Unknown | + + + | Phone | Unavailable | + + + Support + + + + + | Name | Relationship | Address | Phone | + + + + + | Dustin Terrazas | ECON | [place] | | | | | [address] | | + + + + + | Bebe Terrazas | ECON | [address] | | | | [facility] [place] | | | | | [address] | | + + + + + Care Team Providers + +------+ + | Care Program Writer Name | Role | Phone | + +------+ + PCP | Unavailable | + +------+ + Encounter Details +--------+ + + + + | Date | Type | Department | Care Team | Description | +--------+ + + + + | 05/10/ | Hospital | [facility] | Conversion | Angina of effort | | 2016 - | Encounter | MEDICAL CENTER | Transaction, | ([facility]) | | | | CLINICAL DECISION | Provider Unknown | | | 05/11/ | | [address] [facility] | [phone] | | | 2016 | | [place], [place] | | | | | | [address] | Madhu Liu | | | | | [phone] | MD Cindy Rankin | | | | | | DR [address] | | | | | | [place] [address] | | | | | | [phone] | | | | | | | [...] + + + | Blood Pressure | 122/72 | 05/12/2015 11:05 AM | | | | | PST | | + + + + + | Pulse | 82 | 05/12/2015 11:05 AM | | | | | PST | | + + + + + | Temperature | 36.6 C (97.9 F) | 05/12/2015 11:05 AM | | | | | PST | | + + + + + | Respiratory Rate | 18 | 05/12/2015 11:05 AM | | | | | PST | | + + + + + | Oxygen Saturation | - | - | | + + + + + | Inhaled Oxygen | - | - | | | Concentration | | | | + + + + + | Weight | 92.1 kg (203 lb) | 05/12/2015 11:05 AM | | | | | PST | | + + + + + | Height | 167.6 cm (5' 6") | 05/12/2015 11:05 AM | | | | | PST | | + + + + + | Body Mass Index | 32.77 | 05/12/2015 11:05 AM | | | | | PST | | + + + + + documented in this encounter Discharge Summaries Pilo Ocampo MD - 05/12/2015 10:23 AM PSTFormatting of this note might be diffe rent from the original. Discharge Summaries by Pilo Ocampo MD at 05/12/15 1023 Author: Pilo Ocampo MD Service: Cardiology Author Type: Physician Filed: 05/16/15 1417 Date of Service: 05/12/15 1023 Status: Signed Carbon Coater Machine Operator: Pilo Ocampo MD (Physician) Related Notes: Original Note by Pilo Ocampo MD (Physician) filed at 05/12/15 1247 [facility] Service: Cardiology Discharge Summary Date of Admission: 05/11/2015 Date of Discharge: 05/12/2015 Discharge Provider: Pilo Ocampo MD Treatment Team: Admitting Provider: Madhu Liu MD Discharge Diagnoses: Active Problems: Precordial pain Coronary artery disease involving turtle mountain coronary artery of turtle mountain heart with angina pect monse (HCC) Essential hypertension Type 2 diabetes mellitus without complication (HCC) Angina pectoris (HCC) S/P drug eluting coronary stent placement Resolved Problems: * No resolved hospital problems. * Final Diagnoses: 1. Accelerating angina pectoris despite medical therapy. 2. Coronary artery disease with prior stenting of the proximal left anterior descending art masood using Xience drug-eluting stent in 2013 done at [place], [place], status post PTCA and s tenting of the proximal to mid left anterior descending artery using a 4.0 x 18-mm Resolute Integrity drug-eluting stent for in-stent restenosis, as well as severe disease distal to th e previous stent done yesterday, May 11, 2015. 3. Hypertension. 4. Diabetes mellitus type 2. 5. History of asthma. Procedures: [facility]/coronary angiogram, PTCA/stent proximal to mid LAD using 4.0X18 mm resolute integrity D ES 05/11/2015 BRIEF HISTORY OF PRESENTATION AND HOSPITAL COURSE: Nancy Terrazas is a 44 y.o. female History of hypertension, hyperlipidemia with kd re hypertriglyceridemia, and a history of coronary artery disease with prior myocardial infa rction with prior stenting of the proximal left anterior descending artery using a 4.0 x 23- mm Xience drug-eluting stent done at [place], [place], in 2013. He was referred for outpatie nt coronary angiogram by her primary second officer, Dr. Liu. The patient had been exper iencing longstanding exertional chest pain despite being on medical therapy with beta blocke rs and long-acting nitrates. The patient had a nuclear stress test done which was abnormal s uggesting infarct or hibernating myocardium in the left anterior descending artery territory . The patient had elective angiogram done yesterday which showed no significant disease of t he right coronary artery or the circumflex artery. However, there was severe in-stent resten osis in the distal third of the previous stent extending beyond the stent into the turtle mountain ar ivet. The patient was treated with angioplasty and stenting of the proximal to mid left ante rior descending artery overlapping the previous stent using a 4.0 x 18-mm Resolute Integrity drug-eluting stent. She had moderate disease in the proximal left anterior descending arter y proximal to previous stent, and SFR assessment showed an R value of 0.87 indicating hemody namic significance and stenting was deferred. A new stent comes across the origin of the fir st diagonal branch, which remained patent post stenting. The patient tolerated the procedure well. She was observed overnight. Her condition remaine d stable. Her vital signs remained stable. Her right radial artery site remained stable with out hematoma. We have added Prasugrel to home medication regimen and we continued her other home medications including aspirin low-dose, atorvastatin, gemfibrozil, Cozaar, and metoprol ol succinate. We did stop Imdur. The patient was discharged home in stable condition. On the day of discharge, she denied an y chest pain, shortness of breath, orthopnea, paroxysmal nocturnal dyspnea, palpitations, li ghtheadedness, presyncope, or syncope. Her chest pain resolved immediately after the stent. She is to follow up with her primary second officer, Dr. Liu, in 1 to 2 weeks. Past Medical History Diagnosis Date Hyperlipidemia Hypertension Old myocardial infarction Asthma Chronic back pain Coronary artery disease involving turtle mountain coronary artery of turtle mountain heart with angina pe ctoris ([facility]) 05/03/2015 Type 2 diabetes mellitus without complication ([facility]) 05/03/2015 Past Surgical History Procedure Laterality Date Cholecystectomy Tubal ligation Breast surgery Spine surgery Lithotripsy Coronary stent placement Sinus surgery Allergies Allergen Reactions Latex Hives Sulfa Antibiotics Rash Codeine Nausea and Vomiting Prescriptions prior to admission Medication Sig Dispense Refill Last Dose aspirin 81 MG tablet Take 81 mg by mouth daily. 05/10/2015 at Unknown time atorvastatin (LIPITOR) 10 MG tablet Take 1 tablet by mouth nightly. 15 tablet 0 6 at Unknown time gemfibrozil (LOPID) 600 MG tablet Take 1 tablet by mouth 2 (two) times daily before jose ls. 30 tablet 0 05/10/2015 at Unknown time insulin aspart (NOVOLOG) 100 UNIT/ML injection Inject into the skin 3 (three) times da latanya before meals. Indications: Insulin-Dependent Diabetes 05/11/2015 at Unknown time insulin glargine (LANTUS) 100 UNIT/ML injection Inject 14 Units into the skin nightly. Indications: Insulin-Dependent Diabetes 05/10/2015 at Unknown time losartan (COZAAR) 25 MG tablet Take 25 mg by mouth daily. Indications: High Blood Press ure 05/10/2015 at Unknown time metoprolol (TOPROL-XL) 25 MG 24 hr tablet Take 1 tablet by mouth daily. 15 tablet 0 05/09 at Unknown time nitroGLYCERIN (NITROSTAT) 0.[address] 1 tablet under the tongue every 5 (fiv e) minutes as needed for Chest pain. 90 tablet 0 05/11/2015 at Unknown time pregabalin (LYRICA) 75 MG capsule Take 75 mg by mouth 2 (two) times daily. 05/10/2015 a t Unknown time albuterol (PROVENTIL HFA;VENTOLIN HFA) 108 (90 BASE) MCG/ACT inhaler Inhale 2 puffs int o the lungs every 4 (four) hours as needed for Wheezing. More than a month at Unknown time DISCHARGE EXAM Vital Signs: BP 122/72 mmHg | Pulse 82 | Temp(Src) 97.9 F (36.6 C) (Oral) | Resp 18 | Ht 1.676 m (5' 6") | Wt 92.08 kg (203 lb) | BMI 32.78 kg/m2 | SpO2 94% | ? No Temp: [97.7 F (36.5 C)-98.2 F (36.8 C)] 97.9 F (36.6 C) (05/11 754) BP: (95-122)/(55-75) 122/72 mmHg (05/11 754) Heart Rate: [80-89] 82 (05/11 754) Resp: [16-18] 18 (05/11 754) SpO2: [93 %-99 %] 94 % (05/11 754) Height: [167.6 cm (5' 6")] 167.6 cm (5' 6") (05/11 1543) Weight: [92.08 kg (203 lb)] 92.08 kg (203 lb) (05/11 1543) BMI (Calculated): [32.8] 32.8 (05/11 1543) Patient Vitals for the past 24 hrs: BP Temp Temp src Pulse Resp SpO2 Height Weight 05/12/15754 122/72 mmHg 97.9 F (36.6 C) Oral 82 18 94 % - - 05/12/15 0410 112/66 mmHg 98.2 F (36.8 C) Oral 88 16 94 % - - 05/12/15 0048 117/75 mmHg 97.9 F (36.6 C) Oral 80 16 95 % - - 05/11/15 1929 95/58 mmHg 97.7 F (36.5 C) Oral 80 16 93 % - - 03/09/16 1544 99/55 mmHg 97.8 F (36.6 C) Temporal 89 16 99 % 1.676 m (5' 6") 92.08 kg ( 203 lb) Intake/Output Summary (Last 24 hours) at 05/12/15 1247 Last data filed at 05/12/15 0700 Gross per 24 hour Intake 240 ml Output 0 ml Net 240 ml Physical Exam Constitutional: She is oriented to person, place, and time. She appears well-developed and well-nourished. No distress. HENT: Head: Normocephalic and atraumatic. Eyes: No scleral icterus. Neck: Neck supple. No JVD present. Carotid bruit is not present. Cardiovascular: Normal rate, regular rhythm, S1 normal and S2 normal. Exam reveals no gall op and no friction rub. No murmur heard. Pulses: Radial pulses are 2+ on the right side, and 2+ on the left side. Right radial access site stable without hematoma Pulmonary/Chest: Effort normal. No stridor. No respiratory distress. She has no wheezes. Sh e has no rales. She exhibits no tenderness. Abdominal: Soft. Bowel sounds are normal. There is no tenderness. Musculoskeletal: She exhibits no edema or tenderness. Neurological: She is alert and oriented to person, place, and time. No cranial nerve defici t. Skin: Skin is warm and dry. No rash noted. She is not diaphoretic. No erythema. No pallor. Psychiatric: She has a normal mood and affect. DATA CBC: Lab Results Component Value Date WBC 11.03* 05/12/2015 RBC 4.36 05/12/2015 HGB 12.9 05/12/2015 HCT 39.8 05/12/2015 MCV 91.3 05/12/2015 MCH 29.6 05/12/2015 MCHC 32.5 05/12/2015 RDW 45.1 05/12/2015 PLT 226 05/12/2015 MPV 8.9 05/12/2015 DIFFTYPE AUTOMATED 05/12/2015 BMP: Lab Results Component Value Date NA 132* 05/12/2015 K 3.7 05/12/2015 CL 104 05/12/2015 CO2 22* 05/12/2015 ANIONGAP 10 05/12/2015 GLUF 229* 05/12/2015 BUN 14 05/12/2015 CREATININE 0.48* 05/12/2015 BCR 29 05/12/2015 CA 8.6 05/12/2015 EGFR >60 05/12/2015 Disposition: Home Condition: Stable Code Status: Full Code No discharge procedures on file. Follow up: Ki Senior, STAFF CONSULTANT [address] [facility] [place] [address] Madhu Liu MD [address] [place] [address] In 2 weeks Medication List START taking these medications prasugrel 10 MG Tabs QTY: 30 tablet Refills: 11 Commonly known as: EFFIENT Take 1 tablet by mouth daily. CONTINUE taking these medications albuterol 108 (90 BASE) MCG/ACT inhaler Refills: 0 Commonly known as: PROVENTIL HFA;VENTOLIN HFA aspirin 81 MG tablet Refills: 0 atorvastatin 10 MG tablet QTY: 15 tablet Refills: 0 Commonly known as: LIPITOR Take 1 tablet by mouth nightly. COZAAR 25 MG tablet Refills: 0 Generic drug: losartan gemfibrozil 600 MG tablet QTY: 30 tablet Refills: 0 Commonly known as: LOPID Take 1 tablet by mouth 2 (two) times daily before meals. insulin aspart 100 UNIT/ML injection Refills: 0 Commonly known as: NOVOLOG insulin glargine 100 UNIT/ML injection Refills: 0 Commonly known as: LANTUS metoprolol 25 MG 24 hr tablet QTY: 15 tablet Refills: 0 Commonly known as: TOPROL-XL Take 1 tablet by mouth daily. nitroGLYCERIN 0.4 MG SL tablet QTY: 90 tablet Refills: 0 Commonly known as: NITROSTAT Place 1 tablet under the tongue every 5 (five) minutes as needed for Chest pain. pregabalin 75 MG capsule Refills: 0 Commonly known as: LYRICA STOP taking these medications isosorbide mononitrate 30 MG 24 hr tablet Commonly known as: IMDUR Where to Get Your Medications You need to order picker/assembler these prescriptions. We sent them to a specific pharmacy, so go there to get them. [facility] - [place], [place] - [address] - prasugrel 10 MG Tabs [address] [place] [address] Discharge took 40 minutes, to include final examination, discussion of admission, and prepa ration of prescriptions, instructions for on-going care, follow-up and documentation of disc harge summary. Pilo Ocampo MD 05/12/2015 documented i n this encounter Medications at Time of Discharge [...] documented as of this encounter Progress Notes Conversion Transaction, Provider Unknown - 05/12/2015 11:16 AM PSTFormatting of this note m ight be different from the original. Progress Notes by Melissa Bynum RN at 05/12/151115 Author: Melissa Bynum RN Service: (none) Author Type: Registered Nurse Filed: 05/12/151116 Date of Service: 05/12/151115 Status: Signed Carbon Coater Machine Operator: Melissa Bynum RN (Registered Nurse) Discharge Instructions Reviewed With pt/states Understands.Personal Belongings With p t. Pt Wheeled To Car And Discharge home With Daughter. Margy onver mayank Transaction, Provider Unknown - 05/12/2015 9:25 AM PST Progress Notes by Brittney Ahmadi RPH at 05/12/15924 Author: Brittney Ahmadi RPH Service: (none) Author Type: Pharmacist Filed: 05/12/15924 Date of Service: 05/12/15924 Status: Signed Carbon Coater Machine Operator: Brittney Ahmadi RPH (Pharmacist) crcl > 100 ml/min bsed on scr of 0.48 No renal dosage adjustments needed. onver mayank Transaction, Provider Unknown - 05/12/2015 8:05 AM PST Progress Notes by Melissa Bynum RN at 05/12/15804 Author: Melissa Bynum RN Service: (none) Author Type: Registered Nurse Filed: 05/12/15804 Date of Service: 05/12/15804 Status: Signed Carbon Coater Machine Operator: Melissa Bynum RN (Registered Nurse) TRband Instructions And metronic Booklet And Card To PtAsif Ji onver mayank Transaction, Provider Unknown - 05/11/2015 9:13 PM PST Progress Notes by Martha Gong RPH at 05/11/152112 Author: Martha Gong RPH Service: (none) Author Type: Pharmacist Filed: 05/11/152112 Date of Service: 05/11/152112 Status: Signed Carbon Coater Machine Operator: Martha Gong RPH (Pharmacist) Clinical Pharmacy Note: Renal Monitoring Nancy J Nini 44 y.o. female Ht Readings from Last 1 Encounters: 05/11/15 1.676 m (5' 6") Wt Readings from Last 1 Encounters: 05/11/15 92.08 kg (203 lb) Creatinine clearance cannot be calculated (Patient's most recent sCr result is older than t he maximum 3 days allowed.) Lab Results Component Value Date CREATININE 0.50 05/04/2015 Pharmacy dosing for renal function per Dr. Pilo Ocampo. Currently, there are no labs. Pharmacy will adjust medications, if necessary, when labs are reported. Martha Gong PharmD 05/11/2015 9:10 PM docume nted in this encounter H&P Notes Pilo Ocampo MD - 05/11/2015 3:52 PM PSTFormatting of this note might be diffe rent from the original. H&P by Pilo Ocampo MD at 05/11/15 6578 Author: Pilo Ocampo MD Service: Cardiology Author Type: Physician Filed: 05/11/15 4957 Date of Service: 05/11/15 9853 Status: Signed Carbon Coater Machine Operator: Pilo Ocampo MD (Physician) [facility] Service: Cardiology Admission History & Physical Date of Admission: 05/11/2015 Addendum Please see office visit note by Dr. Liu from 05/10/2015 below. No interval change. ASA class 2. Chief Complaint Patient presents with [facility] F/U add on per Dr. Rodriguez HISTORY OF PRESENT ILLNESS: 44 yr old female with h/o HTN, HLD, DM, CAD s/p PCI to pLAD 06/2013 come for cardiology eval uation after recent [facility] hospitalization for chest pain. She was also in [facility] for chest pain- underwent Stress MPi In [facility] showed WMA in LAD territory with possible inf arct. She reports chest pain every day on and off non radiating, left sided have to take 50 NGT tabs since last Er presentation associated with dyspnea on exertion, pain is 7/10 and wo ke her up from sleep. Current smoker, no ETOH. Allergies Allergen Reactions Latex Hives Sulfa Antibiotics Rash Codeine Nausea and Vomiting No family history on file. History Social History Marital Status: Spouse Name: N/A Number of Children: N/A Years of Education: N/A Social History Main Topics Smoking status: Current Every Day Smoker -- 1.00 packs/day Smokeless tobacco: Never Used Alcohol Use: No Drug Use: Yes Special: Marijuana Comment: occasional Sexual Activity: Partners: Male Control/ Protection: Surgical-Self Other Topics Concern None Social History Narrative Past Medical History Diagnosis Date Hyperlipidemia Hypertension Old myocardial infarction Asthma Chronic back pain Coronary artery disease involving [place] coronary artery of [place] heart with angina p ectoris (HCC) 05/03/2015 Type 2 diabetes mellitus without complication ([facility]) 05/03/2015 Past Surgical History Procedure Laterality Date Cholecystectomy Tubal ligation Breast surgery Spine surgery Lithotripsy Coronary stent placement Sinus surgery Current outpatient prescriptions: albuterol (PROVENTIL HFA;VENTOLIN HFA) 108 (90 BASE) MCG/ACT inhaler, Inhale 2 puffs i nto the lungs every 4 (four) hours as needed for Wheezing., Disp: , Rfl: aspirin 81 MG tablet, Take 81 mg by mouth daily., Disp: , Rfl: atorvastatin (LIPITOR) 10 MG tablet, Take 1 tablet by mouth nightly., Disp: 15 tablet, Rfl: 0 gemfibrozil (LOPID) 600 MG tablet, Take 1 tablet by mouth 2 (two) times daily before m eals., Disp: 30 tablet, Rfl: 0 insulin aspart (NOVOLOG) 100 UNIT/ML injection, Inject into the skin 3 (three) times daily before meals. Indications: Insulin-Dependent Diabetes, Disp: , Rfl: insulin glargine (LANTUS) 100 UNIT/ML injection, Inject 14 Units into the skin nightly . Indications: Insulin-Dependent Diabetes, Disp: , Rfl: losartan (COZAAR) 25 MG tablet, Take 25 mg by mouth daily. Indications: High Blood Pre ssure, Disp: , Rfl: metoprolol (TOPROL-XL) 25 MG 24 hr tablet, Take 1 tablet by mouth daily., Disp: 15 tab let, Rfl: 0 nitroGLYCERIN (NITROSTAT) 0.4 MG SL tablet, Place 1 tablet under the tongue every 5 (f marla) minutes as needed for Chest pain., Disp: 90 tablet, Rfl: 0 pregabalin (LYRICA) 75 MG capsule, Take 75 mg by mouth 2 (two) times daily., Disp: , R fl: isosorbide mononitrate (IMDUR) 30 MG 24 hr tablet, Take 1 tablet by mouth daily., Disp : 30 tablet, Rfl: 1 REVIEW OF SYSTEMS: Negative except for pertinent items noted in HPI. Review of Systems Constitutional: Negative for fatigue. HENT: Negative for nosebleeds. Eyes: Negative for visual disturbance. Respiratory: Negative for cough. Gastrointestinal: Negative for nausea, vomiting, abdominal pain and blood in stool. CVS- refer to note Genitourinary: Negative for hematuria. Musculoskeletal: Negative for myalgias, back pain and arthralgias. Skin: Negative for color change. Neurological: Negative for dizziness, syncope and numbness. Hematological: Does not bruise/bleed easily. Psychiatric/Behavioral: The patient is not nervous/anxious PHYSICAL EXAM: BP 112/80 mmHg | Pulse 88 | Resp 18 | Ht 1.676 m (5' 6") | Wt 92.443 kg (203 lb 12.8 oz) | BMI 32.91 kg/m2 | SpO2 97% Physical Exam Constitutional: Alert, Ox3, not in distress, pleasant Neck: No JVD present. No thyromegaly present., no carotid bruit Cardiovascular: Regular rhythm, S1 normal and S2 normal. No murmur heard. Pulmonary/Chest: Effort normal and breath sounds normal. No wheezes. No rales. Abdominal: Soft. No tenderness. Neuro: alert Skin: Warm and dry. Yandel; No edema, pulses +2 b/l DP, PT DATA: Blood tests: Lab Results Component Value Date WBC 10.33 05/04/2015 RBC 4.90 05/04/2015 HGB 14.8 05/04/2015 HCT 44.3 05/04/2015 PLT 241 05/04/2015 Lab Results Component Value Date NA 133* 05/04/2015 K 4.1 05/04/2015 CL 102 05/04/2015 CO2 22* 05/04/2015 ANIONGAP 13 05/04/2015 GLUF 202* 05/04/2015 BUN 13 05/04/2015 CREATININE 0.50 05/04/2015 BCR 26 05/04/2015 CA 9.0 05/04/2015 EGFR >60 05/04/2015 Lab Results Component Value Date CHOL 229* 05/04/2015 TRIGSCR 955* 05/04/2015 LDLCALC LDL NOT VALID WHEN TRIG >400 mg/dL 05/04/2015 GLUF 202* 05/04/2015 HGBA1C 11.5* 05/04/2015 Lab Results Component Value Date CKTOTAL 28* 05/03/2015 TSH 1.44 05/04/2015 No results found for: METF, NMETFX, TFNMFX, [id number], [id number], TOTEPI EKG: Sinus tachycardia Possible Left atrial enlargement Possible Inferior infarct , age undetermined Cannot rule out Anterior infarct , age undetermined Abnormal ECG Last stress test: Impression 1. Moderate to severe fixed perfusion defects in LAD territory with associated regional wal l motion abnormality concerning for infarct or hibernating myocardium. 2. Left ventricular ejection fraction is calculated at 58% at stress. Assessment/Plan ASSESSMENT & PLAN: Chronic Issues Addressed: Coronary artery disease involving turtle [place] coronary artery of [place] mountain heart with angina pector is (HCC) 44 yr old female with h/o CAD s/p PCI to pLAD- HTN, DM, HLD with angina and multiple ER vis its for chest pain 06/23/2013- [facility]- s/p PCI to pLAD, non obstructive disease in LM, Circ and RCA Stress MPI 04/2015- Moderate to severe fixed perfusion defects in LAD territory with associa hiren regional wall motion abnormality concerning for infarct or hibernating myocardium. Discussed with patient about stress test results- management options including coronary ang iogram- she would like to proceed with coronary angiogram- risks,benefits, alternatives disc ussed- consents to procedure after verbally expressing understanding risks of the procedure. Continue Metoprolol, Losartan will add Imdur NGT sl prn as needed Continue ASA, Statin, Gemfibrozil DM not well controlled- lipids not well controlled Strongly advised to stop smoking. Discussed importance of risk factor control like tight DM, HTN, HLD control in management o f CAD- F/u after test. Thank you for allowing me to participate in the care of this patient. Please, do not hesitate to contact me for any further questions. Madhu Liu MD Primary Care Physician: KI Ocampo MD 05/11/2015 documented i n this encounter Plan of Treatment Not on filedocumented as of this encounter Procedures + +--------+ + + + | Procedure Name | Priori | Date/Time | Associated Diagnosis | Comments | | | ty | | | | + +--------+ + + + | POC GLUCOSE | Routin | 05/12/2015 | | Results for this | | | e | 5:58 AM | | procedure are in the | | | | PST | | results section. | + +--------+ + + + | ECG 12 LEAD | Routin | 05/12/2015 | | Results for this | | | e | 3:54 AM | | procedure are in the | | | | PST | | results section. | + +--------+ + + + | EXTERNAL LAB: CBC | Routin | 05/12/2015 | | Results for this | | | e | 3:29 AM | | procedure are in the | | | | PST | | results section. | + +--------+ + + + | COMPREHENSIVE | Routin | 05/12/2015 | | Results for this | | METABOLIC PANEL | e | 3:29 AM | | procedure are in the | | | | PST | | results section. | + +--------+ + + + | POC GLUCOSE | Routin | 05/11/2015 | | Results for this | | | e | 7:49 PM | | procedure are in the | | | | PST | | results section. | + +--------+ + + + | ECG 12 LEAD | Routin | 05/11/2015 | | Results for this | | | e | 7:37 PM | | procedure are in the | | | | PST | | results section. | + +--------+ + + + | ACTIVATED CLOTTING | Routin | 05/11/2015 | | Results for this | | TIME | e | 6:45 PM | | procedure are in the | | | | PST | | results section. | + +--------+ + + + | ACTIVATED CLOTTING | Routin | 05/11/2015 | | Results for this | | TIME | e | 6:34 PM | | procedure are in the | | | | PST | | results section. | + +--------+ + + + | ACTIVATED CLOTTING | Routin | 05/11/2015 | | Results for this | | TIME | e | 5:44 PM | | procedure are in the | | | | PST | | results section. | + +--------+ + + + | ACTIVATED CLOTTING | Routin | 05/11/2015 | | Results for this | | TIME | e | 5:32 PM | | procedure are in the | | | | PST | | results section. | + +--------+ + + + documented in this encounter Results POC Glucose (05/12/2015 5:58 AM PST) + + + + + + | Component | Value | Ref Range | Performed | Pathologist | | | | | At | Signature | + + + + + + | Glucose, | 219 (H)Comment: Testing | 65 - 99 mg/dL | EXTERNAL | | | Fingerstick | performed at [facility];[address] | | LAB | | | | [address];[place] | | | | | | [address] | | | | + + + + + + + + | Specimen | + + | | + + + +---------+ + + | Performing | Address | City/State/Zipcode | Phone Number | | Organization | | | | + +---------+ + + | EXTERNAL LAB | | | | + +---------+ + + ECG 12 lead (05/12/2015 3:54 AM PST) + + + + + + | Component | Value | Ref Range | Performed | Pathologist | | | | | At | Signature | + + + + + + | DIAGNOSIS: | Normal sinus | | EXTERNAL | | | | rhythmNonspecific T wave | | LAB | | | | abnormalityAbnormal | | | | | | ECGWhen compared with | | | | | | ECG of 11-MAY-2015 | | | | | | 19:37,Nonspecific T wave | | | | | | abnormality now evident | | | | | | in Anterolateral | | | | | | leadsConfirmed by | | | | | | ABEL BULLARD ([id number]) on | | | | | | 05/12/2015 4:05:08 PM | | | | + + + + + + + + | Specimen | + + | | + + + + + | Narrative | Performed At | + + + | Historically [facility] Epic [facility] | EXTERNAL LAB | + + + + +---------+ + + | Performing | Address | City/State/Zipcode | Phone Number | | Organization | | | | + +---------+ + + | EXTERNAL LAB | | | | + +---------+ + + External Lab: CBC (05/12/2015 3:29 AM PST) + + + + + + | Component | Value | Ref Range | Performed | Pathologist | | | | | At | Signature | + + + + + + | WBC | 11.03 (H)Comment: | 3.80 - 11.00 | EXTERNAL | | | | Testing performed at | K/uL | LAB | | | | TCL, [address] [facility] | | | | | | [place] | | | | | | [address] | | | | + + + + + + | Non- | 4.36Comment: Testing | 3.70 - 5.10 | EXTERNAL | | | Red Blood | performed at [facility], [address] | M/uL | LAB | | | Cells | [address], | | | | | Counted | [place] [address] | | | | + + + + + + | Hemoglobin | 12.9Comment: Testing | 11.3 - 15.5 | EXTERNAL | | | | performed at [facility], [address] | g/dL | LAB | | | | [address], | | | | | | [place] [address] | | | | + + + + + + | Hematocrit, | 39.8Comment: Testing | 34.0 - 46.0 % | EXTERNAL | | | POC | performed at [facility], [address] | | LAB | | | | [address], | | | | | | [place] [address] | | | | + + + + + + | MCV | 91.3Comment: Testing | 80.0 - 100.0 fl | EXTERNAL | | | | performed at [facility], [address] | | LAB | | | | [address], | | | | | | [place] [address] | | | | + + + + + + | MCH | 29.6Comment: Testing | 27.0 - 34.0 pg | EXTERNAL | | | | performed at [facility], [address] | | LAB | | | | [address], | | | | | | [place] [address] | | | | + + + + + + | MCHC | 32.5Comment: Testing | 32.0 - 35.5 | EXTERNAL | | | | performed at [facility], [address] | g/dL | LAB | | | | [address], | | | | | | [place] [address] | | | | + + + + + + | RDW-CV | 45.1Comment: Testing | 37 - 53 fl | EXTERNAL | | | | performed at [facility], [address] | | LAB | | | | [address], | | | | | | [place] [address] | | | | + + + + + + | Platelet | 226Comment: Testing | 150 - 400 K/uL | EXTERNAL | | | Count | performed at [facility], [address] | | LAB | | | Plasma | [address], | | | | | | [place] [address] | | | | + + + + + + | MPV | 8.9Comment: Testing | fl | EXTERNAL | | | | performed at [facility], [address] | | LAB | | | | [address], | | | | | | [place] [address] | | | | + + + + + + | Differentia | AUTOMATEDComment: | | EXTERNAL | | | l Type | Testing performed at | | LAB | | | | [facility], [address] | | | | | | [place] | | | | | | [address] | | | | + + + + + + | % Segmented | 54.64Comment: Testing | % | EXTERNAL | | | | performed at [facility], [address] | | LAB | | | Neutrophils | [address], | | | | | | [place] [address] | | | | + + + + + + | % | 34.54Comment: Testing | % | EXTERNAL | | | Lymphocytes | performed at [facility], [address] | | LAB | | | | [address], | | | | | | [place] [address] | | | | + + + + + + | % Monocytes | 7.94Comment: Testing | % | EXTERNAL | | | | performed at [facility], [address] | | LAB | | | | [address], | | | | | | [place] [address] | | | | + + + + + + | % | 2.53Comment: Testing | % | EXTERNAL | | | Eosinophils | performed at [facility], [address] | | LAB | | | | [address], | | | | | | [place] [address] | | | | + + + + + + | % Basophils | 0.35Comment: Testing | % | EXTERNAL | | | | performed at [facility], [address] | | LAB | | | | [address], | | | | | | [place] [address] | | | | + + + + + + | Absolute | 6.03Comment: Testing | 1.90 - 7.40 | EXTERNAL | | | Segmented | performed at [facility], [address] | K/uL | LAB | | | Neutrophils | [address], | | | | | | [place] [address] | | | | + + + + + + | Absolute | 3.81Comment: Testing | 1.00 - 3.90 | EXTERNAL | | | Lymphocytes | performed at [facility], [address] | K/uL | LAB | | | | [address], | | | | | | [place] [address] | | | | + + + + + + | Absolute | 0.88 (H)Comment: Testing | 0.00 - 0.80 | EXTERNAL | | | Monocytes | performed at [facility], [address] | K/uL | LAB | | | | [address], | | | | | | [place] [address] | | | | + + + + + + | Absolute | 0.28Comment: Testing | 0.00 - 0.50 | EXTERNAL | | | Eosinophils | performed at [facility], [address] | K/uL | LAB | | | | [address], | | | | | | [place] [address] | | | | + + + + + + | Absolute | 0.04Comment: Testing | 0.00 - 0.10 | EXTERNAL | | | Basophils | performed at [facility], [address] | K/uL | LAB | | | | [address], | | | | | | [place] [address] | | | | + + + + + + + + | Specimen | + + | Blood specimen | | (specimen) | + + + +---------+ + + | Performing | Address | City/State/Zipcode | Phone Number | | Organization | | | | + +---------+ + + | EXTERNAL LAB | | | | + +---------+ + + Comprehensive Metabolic Panel (05/12/2015 3:29 AM PST) + + + + + + | Component | Value | Ref Range | Performed | Pathologist | | | | | At | Signature | + + + + + + | Na | 132 (L)Comment: Testing | 135 - 143 | EXTERNAL | | | | performed at [facility], [address] | mmol/L | LAB | | | | [address], | | | | | | [place] [address] | | | | + + + + + + | K | 3.7Comment: Testing | 3.5 - 4.9 | EXTERNAL | | | | performed at [facility], [address] | mmol/L | LAB | | | | [address], | | | | | | [place] [address] | | | | + + + + + + | Cl | 104Comment: Testing | 99 - 109 mmol/L | EXTERNAL | | | | performed at [facility], [address] | | LAB | | | | [address], | | | | | | [place] [address] | | | | + + + + + + | CO2 | 22 (L)Comment: Testing | 23 - 32 mmol/L | EXTERNAL | | | | performed at [facility], [address] | | LAB | | | | [address], | | | | | | [place] [address] | | | | + + + + + + | Anion Gap | 10Comment: Testing | 5 - 20 mmol/L | EXTERNAL | | | | performed at [facility], [address] | | LAB | | | | [address], | | | | | | [place] [address] | | | | + + + + + + | Glucose, | 229 (H)Comment: Testing | 65 - 99 mg/dL | EXTERNAL | | | Fasting | performed at [facility], [address] | | LAB | | | | [address], | | | | | | [place] [address] | | | | + + + + + + | BUN | 14Comment: Testing | 8 - 25 mg/dL | EXTERNAL | | | | performed at [facility], [address] | | LAB | | | | [address], | | | | | | [place] [address] | | | | + + + + + + | Creatinine | 0.48 (L)Comment: Testing | 0.50 - 1.00 | EXTERNAL | | | | performed at [facility], [address] | mg/dL | LAB | | | | [address], | | | | | | [place] [address] | | | | + + + + + + | BUN/Creatin | 29Comment: Testing | | EXTERNAL | | | ine Ratio | performed at [facility], [address] | | LAB | | | | [address], | | | | | | [place] [address] | | | | + + + + + + | Calcium | 8.6Comment: Testing | 8.5 - 10.5 | EXTERNAL | | | | performed at [facility], [address] | mg/dL | LAB | | | | [address], | | | | | | [place] [address] | | | | + + + + + + | Protein, | 5.8 (L)Comment: Testing | 6.3 - 8.2 g/dL | EXTERNAL | | | Total | performed at [facility], [address] | | LAB | | | | [address], | | | | | | [place] [address] | | | | + + + + + + | Albumin | 3.0 (L)Comment: Testing | 3.6 - 5.0 g/dL | EXTERNAL | | | | performed at [facility], [address] | | LAB | | | | [address], | | | | | | [place] [address] | | | | + + + + + + | Globulin | 2.8Comment: Testing | 1.3 - 4.9 g/dL | EXTERNAL | | | | performed at [facility], [address] | | LAB | | | | [address], | | | | | | [place] [address] | | | | + + + + + + | A/G Ratio | 1.1Comment: Testing | 1.0 - 2.4 | EXTERNAL | | | | performed at [facility], [address] | | LAB | | | | [address], | | | | | | [place] [address] | | | | + + + + + + | Bilirubin | 0.2Comment: Testing | 0.1 - 1.5 mg/dL | EXTERNAL | | | Total | performed at [facility], [address] | | LAB | | | | [address], | | | | | | [place] [address] | | | | + + + + + + | ALP, | 72Comment: Testing | 35 - 115 U/L | EXTERNAL | | | External | performed at [facility], [address] | | LAB | | | | [address], | | | | | | [place] [address] | | | | + + + + + + | AST | 20Comment: Testing | 10 - 45 U/L | EXTERNAL | | | | performed at [facility], [address] | | LAB | | | | [address] [place], | | | | | | [place] [address] | | | | + + + + + + | ALT | 24Comment: Testing | 10 - 65 U/L | EXTERNAL | | | | performed at [facility], [address] | | LAB | | | | [place], | | | | | | [place] [address] | | | | + + + + + + | Estimated | >60Comment: GFR <60: | mL/min/1.73m2 | EXTERNAL | | | GFR | CHRONIC KIDNEY DISEASE, | | LAB | | | | IF FOUND OVER A 3 MONTH | | | | | | PERIOD.GFR <15: KIDNEY | | | | | | FAILURE.FOR | | | | | | AMERICANS, MULTIPLY THE | | | | | | CALCULATED GFR BY | | | | | | 1.210.Testing performed | | | | | | at [facility], [address] | | | | | | [address], | | | | | | [place] [address] | | | | + + + + + + + + | Specimen | + + | Blood specimen | | (specimen) | + + + +---------+ + + | Performing | Address | City/State/Zipcode | Phone Number | | Organization | | | | + +---------+ + + | EXTERNAL LAB | | | | + +---------+ + + POC Glucose (05/11/2015 7:49 PM PST) + + + + + + | Component | Value | Ref Range | Performed | Pathologist | | | | | At | Signature | + + + + + + | Glucose, | 90Comment: Testing | 65 - 99 mg/dL | EXTERNAL | | | Fingerstick | performed at [facility];[address] | | LAB | | | [address];[place], [place] | | | | | | [address] | | | | + + + + + + + + | Specimen | + + | | + + + +---------+ + + | Performing | Address | City/State/Zipcode | Phone Number | | Organization | | | | + +---------+ + + | EXTERNAL LAB | | | | + +---------+ + + ECG 12 lead (05/11/2015 7:37 PM PST) + + + + + + | Component | Value | Ref Range | Performed | Pathologist | | | | | At | Signature | + + + + + + | DIAGNOSIS: | Normal sinus | | EXTERNAL | | | | rhythmCannot rule out | | LAB | | | | Inferior infarct , age | | | | | | undeterminedAbnormal | | | | | | ECGWhen compared with | | | | | | ECG of 04-MAY-2015 | | | | | | 13:15,Minimal criteria | | | | | | for Inferior infarct are | | | | | | now PresentConfirmed by | | | | | | ABEL BULLARD ([id number]) on | | | | | | 05/12/2015 4:04:31 PM | | | | + + + + + + + + | Specimen | + + | | + + + + + | Narrative | Performed At | + + + | Historically converted procedure from [facility] environment | EXTERNAL LAB | + + + + +---------+ + + | Performing | Address | City/State/Zipcode | Phone Number | | Organization | | | | + +---------+ + + | EXTERNAL LAB | | | | + +---------+ + + Activated clotting time (05/11/2015 6:45 PM PST) + + + + + + | Component | Value | Ref Range | Performed | Pathologist | | | | | At | Signature | + + + + + + | Activated | 282 (H)Comment: Testing | 74 - 137 | EXTERNAL | | | Clotting | performed at [facility];[address] | seconds | LAB | | | time, POC | [address];[place], [place] | | | | | | [address] | | | | + + + + + + + + | Specimen | + + | | + + + +---------+ + + | Performing | Address | City/State/Zipcode | Phone Number | | Organization | | | | + +---------+ + + | EXTERNAL LAB | | | | + +---------+ + + Activated clotting time (05/11/2015 6:34 PM PST) + + + + + + | Component | Value | Ref Range | Performed | Pathologist | | | | | At | Signature | + + + + + + | Activated | 177 (H)Comment: Testing | 74 - 137 | EXTERNAL | | | Clotting | performed at [facility];[address] | seconds | LAB | | | time, POC | [address];[place] | | | | | | [address] | | | | + + + + + + + + | Specimen | + + | | + + + +---------+ + + | Performing | Address | City/State/Zipcode | Phone Number | | Organization | | | | + +---------+ + + | EXTERNAL LAB | | | | + +---------+ + + Activated clotting time (05/11/2015 5:44 PM PST) + + + + + + | Component | Value | Ref Range | Performed | Pathologist | | | | | At | Signature | + + + + + + | Activated | 233 (H)Comment: Testing | 74 - 137 | EXTERNAL | | | Clotting | performed at [facility];[address] | seconds | LAB | | | time, POC | [address];[place], [place] | | | | | | [address] | | | | + + + + + + + + | Specimen | + + | | + + + +---------+ + + | Performing | Address | City/State/Zipcode | Phone Number | | Organization | | | | + +---------+ + + | EXTERNAL LAB | | | | + +---------+ + + Activated clotting time (05/11/2015 5:32 PM PST) + + + + + + | Component | Value | Ref Range | Performed | Pathologist | | | | | At | Signature | + + + + + + | Activated | 196 (H)Comment: Testing | 74 - 137 | EXTERNAL | | | Clotting | performed at [facility];[address] | seconds | LAB | | | time, POC | [address];[place] | | | | | | [address] | | | | + + + [...] + | Diagnosis | + + | Angina of effort (HCC) Other and unspecified angina pectoris | + + documented in this encounter
--- OUTSIDE RECORDS SUMMARY | ~2019-10-16 | XMS | Encounter Summary ---
Demographics + + + | Address | [address] | | | [place] [address] | + + + | Home Phone | | + + + | Preferred Language | Unknown | + + + | Marital Status | | + + + | Denominational Affiliation | PRE | + + + | Race | White | + + + | Ethnic Group | Not or | + + + Author + + + | Author | [facility] | + + + | Organization | [facility] | + + + | [...] #[place] | | | | | [address] | | + + + + + | Bebe [place]as | ECON | Unknown | Unavailable | + + + + + | Arden [place] | ECON | Unknown | | + + + + + Care Team Providers + +------+ + | Care Sinter Machine Operator Name | Role | Phone [...] | +--------+ + + + + | 01/22/ | Telephone | [facility] Primary Care | Yuriy Cardenas, | Medication | | 2017 | | at [place] [address] | PA-C [id number] | management | | | | [facility] | [facility] | | | | | [facility] [place], [place] | [place], [place] | | | | | [address] | [address] | | | | | [phone] | [phone] | | | | | | | [...]
--- OUTSIDE RECORDS SUMMARY | ~2019-10-16 | XMS | Encounter Summary ---
Demographics + + + | Address | [address] | | | [place] [address] | + + + | Home Phone | | + + + | Preferred Language | Unknown | + + + | Marital Status | | + + + | Jew Affiliation | PRE | + + + | Race | White | + + + | Ethnic Group | Not or | + + + Author + + + | Author | [facility] | + + + | Organization | [facility] | + + + | Address | Unknown | + + + | Phone | Unavailable | + + + Support + + + + + | Name | Relationship | Address | Phone | + + + + + | Dustin Terrazas | ECON | [address] | Unavailable | | | | #[place] | | | | | [address] | | + + + + + | Bebe Terrazas | ECON | Unknown | Unavailable | + + + + + | Arden Terrazas | ECON | Unknown | | + + + + + Care Team Providers + +------+ + | Care Factory Engineer Name | Role | Phone | + +------+ + | Yuriy Cardenas PA-C | PCP | | + +------+ + Encounter Details +--------+ + + + + | Date | Type | Department | Care Team | Description | +--------+ + + + + | 02/13/ | MyChart | [facility] Primary Care | Yuriy Cardenas, | RE: Medication | | 2018 | Encounter | at [place] [address] | PA-C [address] | Refill | | | | [address] | [address] | | | | | [place], [place] | [place], [place] | | | | | [address] | [address] | | | | | [phone] | | | | | | | [...]
--- OUTSIDE RECORDS SUMMARY | ~2019-10-16 | XMS | Encounter Summary ---
Demographics + + + | Address | [address] | | | [place] [address] | + + + | Home Phone | | + + + | Preferred Language | Unknown | + + + | Marital Status | | + + + | Baptism Affiliation | PRE | + + + [...] #[place] | | | | | [address] | | + + + + + | Bebe Terrazas | ECON | Unknown | Unavailable | + + + + + | Arden Terrazas | ECON | Unknown | | + + + + + Care Team Providers + +------+ + | Care Supervisor Functional Testing Name | Role | Phone | + +------+ + | Yuriy Cardenas PA-C | PCP | | + +------+ + Encounter Details +--------+ + + + + | Date | Type | Department | Care Team | Description | +--------+ + + + + | 06/24/ | MyChart | [facility] Primary Care | Yuriy Cardenas, | RE: Medication | | 2020 | Encounter | at [place] [address] | PA-C [address] | refill | | | | [address] | [address] | | | | | [place], [place] | [place], [place] | | | | | [address] | [address] | | | | | [phone] | | | | | | | [...]
--- OUTSIDE RECORDS SUMMARY | ~2019-10-16 | XMS | Encounter Summary ---
Demographics + + + | Address | [address] | | | [place] [address] | + + + | Home Phone [...] #[place] | | | | | [address] | | + + + + + | Bebe Terrazas | ECON | Unknown | Unavailable | + + + + + | Arden Terrazas | ECON | Unknown | | + + + + + Care Team Providers + +------+ + | Care Bike Designer Name | Role | Phone | + +------+ + | Zora Haddad DO | PCP | | + +------+ + Reason for Visit + + + | Reason | Comments | + + + | Medication Refill | | + + + Encounter Details +--------+ + + + + | Date | Type | Department | Care Team | Description | +--------+ + + + + | 01/26/ | Telephone | Neurosurgery [address] | Sivakumar Tanner, | Medication Refill | | 2012 | | [address] | [address] | | | | | Physician's | [place], [place] | | | | | [place], [facility] floor | [address] | | | | | [place], [place] | [phone] | | | | | [address] | | | | | | [phone] | | | +--------+ + + + [...] radiculitis, | | unspecified | + + | Back pain Backache, unspecified | + + documented in this encounter"
--- OUTSIDE RECORDS SUMMARY | ~2019-10-16 | XMS | Encounter Summary ---
Demographics + + + | Address | [address] | | | [place] [address] | + + + | Home Phone | | + + + | Preferred Language | Unknown | + + + | Marital Status | | + + + | Rastafari Affiliation | 1013 | + + + | Race | Unknown | + + + | Ethnic Group | Unknown | + + + Author + + + | Author | [facility] | | | and [place] | + + + | Organization | [facility] | | | and [place] | + + + | Address | Unknown | + + + | Phone | Unavailable | + + + Support + + + + + | Name | Relationship | Address | Phone | + + + + + | Dustin Terrazas | ECON | [place] | | | | | [address] | | + + + + + | Bebe Terrazas | ECON | [address] | | | | | [place] | | | | | [address] | | + + + + + Care Team Providers + +------+ + | Care Colored Liquid Plastic Applier Name | Role | Phone | + +------+ + | Ki Senior NP | PCP | | + +------+ + Encounter Details +--------+ + + + + | Date | Type | Department | Care Team | Description | +--------+ + + + + | 05/16/ | Hospital | [facility] | Conversion | | | 2018 | Encounter | [facility] | Transaction, | | | | | [address] | Provider Unknown | | | | | [place], [place] | | | | | | [address] | (Fax) | | | | | [phone] | | | +--------+ + + + [...] Inhale 1-2 puffs | | 0 | // | | | mcg/puff inhaler | into [...] + + +---------+ + + | E-Z Jeanneliese Lancets | 1 each by | | [...] +---------+ + + | metFORMIN | Take 1/ tab by | | 0 | 10/25/19 [...]
--- OUTSIDE RECORDS SUMMARY | ~2019-10-16 | XMS | Clinical Summary ---
Demographics + + + | Address | [address] | | | [place] [address] | + + + | Home Phone [...] [place], [place] | | | | | [address] | | + + + + + | Bebe Terrazas | ECON | Unknown | Unavailable | + + + + + | Arden Hammondi | ECON | Unknown | | + + + + + Care Team Providers + +------+ + | Care Cattle Dealer Name | Role | Phone | + +------+ + | Yuriy Cardenas PA-C | PCP | | + +------+ + Source Comments [facility]MAR is fully live on both [facility] and [facility] In[facility] Allergies + + + + + + [...] | | | | | | of [place] coronary | | | | | | | | artery of [place] | | | | | | | [...] | | | | use of insulin ([facility]) | | | | | | | [...] | | | | | | | [place] coronary | | | | | | | | artery of [place] | | | | | | | | heart with stable | | | | | | | | angina pectoris | | | | | | | | ([facility]) | | | | | | | [...] | | | | use of insulin ([facility]) | | | | | | | [...] | | | | | | | [place] coronary | | | | | | | | artery of [place] | | | | | | | | heart with stable | | | | | | | | angina pectoris | | | | | | | | ([facility]) | | | | | | | [...] | | | | | | | [place] coronary | | | | | | | | artery of [place] | | | | | | | | heart with stable | | | | | | | | angina pectoris | | | | | | | | ([facility]) | | | | | | | [...] | | | | | | | ([facility]), Other chronic | | | | | [...] | + + + | Atherosclerosis of [place] coronary artery of [place] heart | 05/20/2017 | + + + [...] + + | Coronary artery disease involving [place] coronary artery of | 05/03/2015 | | [place] heart without angina pectoris | | + + + + + | Overview: Last Assessment & Plan: 44 yr old female with h/o | | CAD s/p PCI to pLAD- HTN, DM, HLD with angina and multiple ER | | visits for chest pain06/23/2013- [facility]- | | s/p PCI to pLAD, [...] | +UDS 01/2010 for Meth, transferred to [facility] after that. | + + + + [...] effort- she reports medication | | compliance06/23/2013- [facility]- s/p PCI to | | pLAD, [...] 905 / | | MD David at [facility] RE[facility] | | | | | | /[id number] | | LOC | | | | | | 014 | + +------+--------+ +--------+--------+--------+ | Eder BimodalImplanted: Qty: | | N/A: | BALWINDER | | 03/03/ | [id number] | | 1 on 12/23/2012 by Antonio, | | Spine | | | 2013 | 910 / | | Adama Rojo MD at [facility]IENT | | | | | | /[id number] | | REV LOC | | | | | | 008 | + +------+--------+ +--------+--------+--------+ | Aria [id number] | | Bilate | BALWINDER | | | [id number] | | DegreeImplanted: Qty: 1 on | | ral: | | | | / | | 12/23/2012 by Adama Alvarez, | | Neck | | | | | | at [facility] REV LOC | | | | | | | + +------+--------+ +--------+--------+--------+ | Screw Renetta 3 Ti Polyaxial 7.5 | | N/A: | BALWINDER | | | [id number] | | X 35 Mm - [id number]: | | Spine | | | | 535 / | | Qty: 1 on 12/23/2012 by | | | | | | / | | Adama Alvarez MD at [facility] | | | | | | | | INPATIENT REV LOC | | | | | | | + +------+--------+ +--------+--------+--------+ | Screw Renetta 3 Ti Polyaxial 6.5 | | N/A: | BALWINDER | | | [id number] | | X 45 Mm - [id number]: | | Spine | | | | 545 / | | Qty: 1 on 12/23/2012 by | | | | | | / | | Adama Alvarez MD at [facility] | | | | | | | | INPATIENT REV LOC | | | | | | | + +------+--------+ +--------+--------+--------+ | Screw Renetta 3 Ti Polyaxial 6.5 | | N/A: | BALWINDER | | | [id number] | | X 40 Mm - [id number]: | | Spine | | | | 540 / | | Qty: 3 on 12/23/2012 by | | | | | | / | | Adama Alvarez MD at [facility] | | | | | | | | INPATIENT REV LOC | | | | | | | + +------+--------+ +--------+--------+--------+ | Screw Renetta 3 Ti Polyaxial 6.5 | | N/A: | BALWINDER | | | [id number] | | X 35 Mm - [id number]: | | Spine | | | | 535 / | | Qty: 1 on 12/23/2012 by | | | | | | / | | Adama Alvarez MD at [facility] | | | | | | | | INPATIENT REV LOC | | | | | | | + +------+--------+ +--------+--------+--------+ | Screw Renetta 3 Ti Polyaxial 4.5 | | N/A: | BALWINDER | | | [id number] | | X 40 Mm - [id number]: | | Spine | | | | 540 / | | Qty: 2 on 12/23/2012 by | | | | | | / | | Adama Alvarez MD at [facility] | | | | | | | | INPATIENT REV LOC | | | | | | | + +------+--------+ +--------+--------+--------+ | Julio Cesar Renetta 3 Rad 6 X 90mm - | | N/A: | BALWINDER | | | [id number] | | [id number]: Qty: 2 on | | Spine | | | | 90 / / | | 12/23/2012 by Adama Alvarez, | | | | | | | | MD at [facility] REV LOC | | | | | | | + +------+--------+ +--------+--------+--------+ | Cap Renetta 3 Ti Calixto - | | | BALWINDER | | | [id number] | | [id number]: Qty: 8 on | | | | | | 00 / / | | 12/23/2012 by Adama Alvarez, | | | | | | | | MD at [facility] REV LOC | | | | [...] | | | | | | | [address] | | + +--------+ +--------+ + +--------+ [...] | 1971 | [phone] | [place] [address] | | | latanya | | | [...]
--- OUTSIDE RECORDS SUMMARY | ~2019-10-16 | XMS | Encounter Summary ---
Demographics + + + | Address | [address] | | | [place] [address] | + + + | Home Phone [...] Author | [facility] | + + + | Organization | [facility] | + + + | Address | Unknown | + + + | Phone | Unavailable | + + + Support + + + + + | Name | Relationship | Address | Phone | + + + + + | Dustin Terrazas | ECON | [address] | Unavailable | | | | #[place] | | | | | [address] | | + + + + + | Bebe Terrazas | ECON | Unknown | Unavailable | + + + + + | Arden Terrazas | ECON | Unknown | | + + + + + Care Team Providers + +------+ + | Care Shipyard Supervisor Name | Role | Phone | + +------+ + | Yuriy Cardenas PA-C | PCP | | + +------+ + Encounter Details +--------+--------+ + + + | Date | Type | Department | Care Team | Description | +--------+--------+ + + + | 06/09/ | Refill | [facility] | Yuriy Cardenas, | | | 2018 | | at [place] [address] | PA-C [address] | | | | [address] | [address] | | | | | [facility] [place], [place] | [place], [place] | | | | | [address] | [address] | | | | | [phone] | [phone] | | | | | | | [...] Diagnosis | + + | Atherosclerosis of [place] coronary artery of [place] heart with stable angina pectoris | | (HCC) - Primary | + + | Mixed hyperlipidemia | + + documented in this encounter"
--- OUTSIDE RECORDS SUMMARY | ~2019-10-16 | XMS | Encounter Summary ---
Demographics + + + | Address | [address] | | | [place] [address] | + + + | Home Phone | | + + + | Preferred Language | Unknown | + + + | Marital Status | | + + + | Islam Affiliation | PRE | + + + | Race | White | + + + | Ethnic Group | Not or | + + + Author + + + | Author | [facility] | + + + | Organization | [facility] | + + + | Address [...] #[place] | | | | | [address] | | + + + + + | Bebe Terrazas | ECON | Unknown | Unavailable | + + + + + | Arden Terrazas | ECON | Unknown | | + + + + + Care Team Providers + +------+ + | Care Input Output Clerk Name | Role | Phone | + +------+ + | Yuriy Cardenas PA-C | PCP | | + +------+ + Encounter Details +--------+ + + + + | Date | Type | Department | Care Team | Description | +--------+ + + + + | 07/12/ | Procedure | Diagnostic Imaging | | | | 2018 | Pass | Services at [facility] | | | | | | [address] | | | | | | [facility] | | | | | | [address] | | | | | | [place], [place] | | | | | | [address] | | | | | | [phone] | | | +--------+ + + + [...]
--- OUTSIDE RECORDS SUMMARY | ~2019-10-16 | XMS | Encounter Summary ---
Demographics + + + | Address | [address] | | | [place] [address] | + + + | Home Phone | | + + + | Preferred Language | Unknown | + + + | Marital Status | | + + + | Hindu Affiliation | 1013 | + + + | Race | Unknown | + + + | Ethnic Group | Unknown | + + + Author + + + | Author | [facility] | | | and [place] | + + + | Organization | [facility] | | | and [place] | + + + | Address | Unknown | + + + | Phone | Unavailable | + + + Support + + + + + | Name | Relationship | Address | Phone | + + + + + | Dustin Terrazas | ECON | [place] | | | | | [address] | | + + + + + | Bebe Terrazas | ECON | [address] | | | | [place], [place] | | | | | [address] | | + + + + + Care Team Providers + +------+ + | Care Despatch Clerk Name | Role | Phone | + +------+ + | Ki Senior NP | PCP | | + +------+ + Encounter Details +--------+ + + + + | Date | Type | Department | Care Team | Description | +--------+ + + + + | 03/15/ | Hospital | [facility] | Conversion | Pain | | 2018 | Encounter | CONVERSION [address] | Transaction, | | | | | [address] | Provider Unknown | | | | | [place], [place] | [phone] | | | | | [address] | | | | | | [phone] | | | +--------+ + + + [...] + +--------+ + + + | XR CHEST 1 VIEW | Routin | 03/01/2017 | | Results for this | | | e | 2:08 AM | | procedure are in the | | | | PST | | results section. | + +--------+ + + + documented in this encounter Results XR Chest 1 Vw (03/01/2017 2:08 AM PST) + + | Specimen | + + | | + + + + + | Narrative | Performed At | + + + | This is a non-reportable procedure without a radiologist report and | | | is used for image storage only | | + + + + + | Procedure Note | + + | oRss Worley - 10/15/2018 11:00 AM PDT This is a non-reportable procedure | | without a radiologist report and isused for image storage only | + + documented in this encounter Visit Diagnoses + + | Diagnosis | + + | Pain Generalized pain | + + documented in this encounter"
--- OUTSIDE RECORDS SUMMARY | ~2019-10-16 | XMS | Encounter Summary ---
Demographics + + + | Address | [address] | | | [place] [address] | + + + | Home Phone | | + + + | Preferred Language | Unknown | + + + | Marital Status | | + + + | Yazidi Affiliation | PRE | + + + [...] [place] | | | | | [address] | | + + + + + | Bebe Merino | ECON | Unknown | Unavailable | + + + + + | Arden Merino | ECON | Unknown | | + + + + + Care Team Providers + +------+ + | Care Cash Applications Associate Name | Role | Phone | + +------+ + | Yuriy Cardenas PA-C | PCP | | + +------+ + Encounter Details +--------+ + + + + | Date | Type | Department | Care Team | Description | +--------+ + + + + | 06/19/ | Abstract | [facility] | Yuriy Cardenas, | | | 2018 | | at [place] [address] | [place] [address] | | | | [address] | [address] | | | | | [facility] [place], [place] | [place], [place] | | | | | [address] | [address] | | | | | [phone] | [phone] | | | | | | | [...] | + +--------+ + + + | PAP SMEAR/CERVICAL | Routin | 10/08/2008 | | Results for this | | CYTOLOGY (ABSTRACT) | e | | | procedure are in the | | | | | | results section. | + +--------+ + + + documented in this encounter Results PAP SMEAR/CERVICAL CYTOLOGY (ABSTRACT) (10/08/2008) + + | Specimen | + + | | + + + + + | Impressions | Performed At | + + + | Care Everywhere Result Report GYNECOLOGY LC REPORT 10/08/2008 | NON [facility] | | [facility] Result Narrative MAYR MERINO | | | J : 70 | | | Collection Date: 10/08/2008 Case | | | #: [id number] DIAGNOSIS Negative for intraepithelial | | | lesion or malignancy Date Verified: 13-OCT-2008 | | | 12:54 Interpreted by: Pierre Lidster CT(ASCP) | | | /ROHAN . . Specimen Liquid Base (Sure Path Pap) | | | Clinical Information LMP: Irregular Clinical History: HPV HI | | | reflex on ASCUS diagnosis only Adequacy Alpha | | | Satisfactory^Satisfactory Reason N/A Satisfactory^N/A | | | Satisfactory Endocervical Components Endo +^Endo + | | | Adequacy Satisfactory for evaluation with endocervical components. | | | Diagnosis Alpha Negative Pap^Negative Pap Professional | | | Services Provided by [facility] [place], [place] | | + + + + +---------+ + + | Performing | Address | City/State/Zipcode | Phone Number | | Organization | | | | + +---------+ + + | NON [facility] | | | | + +---------+ + + documented in this encounter Visit Diagnoses Not on filedocumented in this encounter"
--- OUTSIDE RECORDS SUMMARY | ~2019-10-16 | XMS | Encounter Summary ---
Demographics + + + | Address | [address] | | | [place] [address] | + + + | Home Phone [...] [place] | | | | | [address] | | + + + + + | Bebe Terrazas | ECON | Unknown | Unavailable | + + + + + | Arden Terrazas | ECON | Unknown | | + + + + + Care Team Providers + +------+ + | Care Gun Striper Name | Role | Phone | + [...] +--------+---------+ + + + | 12/23/ | Office | [facility] | Yuriy Cardenas, | Type 2 diabetes | | 2019 | Visit | at [place] [address] | PA-C [address] | mellitus with | | | | [address] | diabetic | | | | [place], [place] | [place], [place] | polyneuropathy, with | | | | [phone] | [phone] | long-term current | | | | [phone] | [phone] | use of insulin (HCC) | | | | | | (Primary Dx); | | | | | | Coronary artery | | | | | | disease involving | | | | | | [place] coronary | | | | | | artery of [place] | | | | | | heart without angina | | | | | | pectoris; Chronic | | | | | | combined systolic | | | | | | and diastolic heart | | | | | | failure (HCC); | | | | | | History of | | | | | | myocardial infarct | | | | | | at age less than 60 | | | | | | years; Non-small | | | | | | cell cancer of left | | | | | | lung (HCC); Other | | | | | | chronic | | | | | | postprocedural pain | +--------+---------+ + + + Social History [...] + | Blood Pressure | 118/78 | 12/23/2018 4:17 PM | | | | | PDT | | + + + + + | Pulse | 78 | 12/23/2018 4:17 PM | | | | | PDT | | + + + + + | Temperature | - | - | | + + + + + | Respiratory Rate | 16 | 12/23/2018 4:17 PM | | | | | PDT | | + + + + + | Oxygen Saturation | - | - | | + + + + + | Inhaled Oxygen | - | - | | | Concentration | | | | + + + + + | Weight | 79.4 kg (175 lb) | 12/23/2018 4:17 PM | | | | | PDT | | + + + + + | Height | - | - | | + + + + + | Body Mass Index | 28.25 | 08/05/2018 2:44 PM | | | | | PDT | | + + + + + documented in this encounter Patient Instructions Patient Instructions Yuriy Cardenas PA-C - 12/23/2018 4:00 PM PDTLet's try adding the Ozem pic. Go up as listed. Try focusing on titrating the Levemir by 1 unit per shot each day your fasting is over 160. That [address] if you start at 22u twice a day regularly and move up gradually then we can see i f in the range of 25-30 twice a day, you need the mealtimes more in the 10-15u range. I went down on the furosemide so that you can take it regularly without the side effects. Go up on the Lyrica to the 200's. Let's plan to meet just before March 17. Electronically signed by YAO Boyle 12/23/2018 5:09 PM PDT documented in this encounter Progress Notes Yuriy Cardenas PA-C - 12/23/2018 4:00 PM PDTFormatting of this note might be different fro m the original. SUBJECTIVE: Nancy is a 48 y.o. female who presents for follow up of diabetes and below issues. Her breathing has been stable. Occasionally feels a bit short of breath, she attributes more to CHF than lobectomy as this goes along with a distended stomach. Does not last very long for her, is not concerning to her. She reports the following: no unusual visual symptoms, no hypoglycemia, has noted excessive thirstiness and frequent urination Feels like her diabetes is very up and down, hard to control. Often her home BG readings are in the 300's, and she cannot readily get even into the 200's normally. Feels like is constantly chasing this with her long and short acting insulin doses. This h as been an ongoing issue since before she had cancer. She is on SS of her short acting, from 15-22u per dose. Her Levemir is usually in range of 20-24 BID. Taking other meds regularly. Denies any SE's with these. No SE's with the empagliflozin. Gets exertional chest pain about 4x per month. Still on the long acting nitrate. Will use the short acting NTG when higher pain, will not need more than 1 per dose. Does note she had cut down on her diuretics a bit due to cramping and signs of dehydration. Skips this about 2-3 times per move Notes some heartburn last 1-1.5 weeks. Pain is fairly consistently 6/10. A couple of days per month will be more like 8/10. Can feel where her missing lobe is, which is a new sensation for her. Feels frustrated with the pain, but does not really expect it to improve much from where it currently is. Notes a cyst on her R upper back, about 1cm. It was large and red at one point, was draini ng greenish material, draining from 3 different sites. They were washing regularly, catchin g drainage. Has decreased in size and no longer getting material draining. ROS: Denies CP/tightness, no GUERIN, no palpitations, no lightheadedness/dizziness, not having visual, motor or sensory changes. OBJECTIVE: BP 118/78 | Pulse 78 | Resp 16 | Wt 79.4 kg (175 lb) | BMI 28.25 kg/m | BSA 1.92 m Gen: alert, in NAD Lungs: CTA bilaterally, without wheezes/rales/rhonchi Heart: RRR with no murmur/rub/gallop Back: approx 1cm firm slightly raised lump R upper scapula, without drainage or erythema, s lightly TTP Psych: normal mood and affect, no pressured speech, displays normal thought content, reason ing intact, shows good insight Results for orders placed or performed in visit on 12/23/18 HEMOGLOBIN A1C,POC Result Value Ref Range HEMOGLOBIN A1C,POC 12.0 (A) 4.0 - 5.7 % Recent Labs 03/28/18 1607 09/26/18 1621 A1C 11.7* 12.1* NA Date Value Ref Range Status 09/26/2018 136 136 - 145 mmol/L Final K Date Value Ref Range Status 09/26/2018 4.4 3.4 - 5.0 mmol/L Final ANIONGAP Date Value Ref Range Status 09/26/2018 8 4 - 11 mmol/L Final BUN Date Value Ref Range Status 09/26/2018 17 6 - 20 mg/dL Final No results found for: CHOL, HDL, LDL, LDLDIRECT, VLDL, NONHDL ASSESSMENT & PLAN: ICD-10-CM 1. Type 2 diabetes mellitus with diabetic polyneuropathy, with long-term current use of ins ulin ([facility]) E11.42 semaglutide 0.25 mg or 0.5 mg(2 mg/1.5 mL) subcutaneous pen injector Z79.4 HEMOGLOBIN A1C,POC 2. Coronary artery disease involving [place] coronary artery of [place] heart without angina pectoris I25.10 3. Chronic combined systolic and diastolic heart failure ([facility]) I50.42 4. History of myocardial infarct at age less than 60 years I25.2 5. Non-small cell cancer of left lung ([facility]) C34.92 oxyCODONE (immediate release) 5 mg oral tablet morphine SR 10 mg oral capsule,extend.release pellets oxyCODONE (immediate release) 5 mg oral tablet DISCONTINUED: oxyCODONE (immediate release) 5 mg oral tablet DISCONTINUED: morphine SR 10 mg oral capsule,extend.release pellets DISCONTINUED: morphine SR 10 mg oral capsule,extend.release pellets DISCONTINUED: oxyCODONE (immediate release) 5 mg oral tablet DISCONTINUED: morphine SR 10 mg oral capsule,extend.release pellets 6. Other chronic postprocedural pain G89.28 oxyCODONE (immediate release) 5 mg oral tablet morphine SR 10 mg oral capsule,extend.release pellets oxyCODONE (immediate release) 5 mg oral tablet DISCONTINUED: oxyCODONE (immediate release) 5 mg oral tablet DISCONTINUED: morphine SR 10 mg oral capsule,extend.release pellets DISCONTINUED: morphine SR 10 mg oral capsule,extend.release pellets DISCONTINUED: oxyCODONE (immediate release) 5 mg oral tablet DISCONTINUED: morphine SR 10 mg oral capsule,extend.release pellets A1c still extremely high. Discussed both medication change/addition as well as moving to ore favorable basal/bolus insulin ratio. Will start by adding the Ozempic. Go up as listed in titration schedule. Try focusing on titrating the Levemir by 1 unit per shot each day her FBG is over 160. [address] if starts at 22u twice a day regularly and up gradually then we can see if in the rang e of 25-30 twice a day, needs mealtime short-acting more in the 10-15u range. Continuing to use her long-acting nitrates consistently but occasional breakthrough pain. Not needing over 1 NTG when worsened. I went down on the furosemide dosing so that she can take it regularly without the side eff ects and get more steady effect. Pain is still significant. Go up on the Lyrica to the 200's. Will maintain at current pain dosing (MED 35). Will plan to meet just before March 17. Asa Matos MA - 4:00 PM PDTPt here for cyst and medication Refill documented in this encounter Plan of Treatment Not on filedocumented as of this encounter Procedures + +--------+ + + + | Procedure Name | Priori | Date/Time | Associated Diagnosis | Comments | | | ty | | | | + +--------+ + + + | HEMOGLOBIN A1C, POC | Routin | 12/23/2018 | Type 2 diabetes | Results for this | | | e | 5:22 PM | mellitus with | procedure are in the | | | | PDT | diabetic | results section. | | | | | polyneuropathy, with | | | | | | long-term current | | | | | | use of insulin (HCC) | | + +--------+ + + + documented in this encounter Results HEMOGLOBIN A1C,POC (12/23/2018 5:22 PM PDT) + + + + + + | Component | Value | Ref Range | Performed | Pathologist | | | | | At | Signature | + + + + + + | HEMOGLOBIN | 12.0 (A) | 4.0 - 5.7 % | [facility] | | | A1C,POC | | | [place] | | | | | [facility] | | + + + + + + + + | Specimen | + + | Blood - Blood | | (substance) | + + + + + + + | Performing | Address | City/State/Zipcode | Phone Number | | Organization | | | | + + + + + | [facility] | [address] | [place], [place] | [phone] | | [place] [facility] | Road | [address] | | + + + + + documented in this encounter Visit Diagnoses + + | Diagnosis | + + | Type 2 diabetes mellitus with diabetic polyneuropathy, with long-term current use of | | insulin (HCC) - Primary | + + | Coronary artery disease involving [place] coronary artery of [place] heart without | | angina pectoris | + + | Chronic combined systolic and diastolic heart failure (HCC) Chronic combined systolic | | and diastolic heart failure | + + | History of myocardial infarct at age less than 60 years | + + | Non-small cell cancer of left lung (HCC) | + + | Other chronic postprocedural pain | + + documented in this encounter"
--- OUTSIDE RECORDS SUMMARY | ~2019-10-16 | XMS | Encounter Summary ---
Demographics + + + | Address | [address] | | | [place] [address] | + + + | Home Phone | | + + + | Preferred Language | Unknown | + + + | Marital Status | | + + + | Scientologist Affiliation | PRE | + + + [...] [place] | | | | | [address] | | + + + + + | Bebe Terrazas | ECON | Unknown | Unavailable | + + + + + | Arden Terrazas | ECON | Unknown | | + + + + + Care Team Providers + +------+ + | Care Inspector Weights And Measures Name | Role | Phone | + +------+ + | Yuriy Cardenas PA-C | PCP | | + +------+ + Reason for Visit + + + | Reason | Comments | + + + | Follow-up visit | | + + + Encounter Details +--------+---------+ + + + | Date | Type | Department | Care Team | Description | +--------+---------+ + + + | 09/26/ | Office | [facility] Primary Care | Yuriy Cardenas, | Type 2 diabetes | | 2018 | Visit | at [place] [address] | [place]-C [address] [address] | mellitus with | | | | [address] | [address] | diabetic | | | | [facility] [place], [place] | [place], [place] | polyneuropathy, with | | | | [address] | [phone] | long-term current | | | | [phone] | [phone] | use of insulin (HCC) | | | | | | (Primary Dx); | | | | | | Atherosclerosis of | | | | | | [place] coronary | | | | | | artery of [place] | | | | | | heart with stable | | | | | | angina pectoris | | | | | | (HCC); Essential | | | | | | hypertension, | | | | | | benign; Non-small | | | | | | cell cancer of left | | | | | | lung (HCC); Other | | | | | | chronic | | | | | | postprocedural pain; | | | | | | Leukocytosis, [...] + + + | Blood Pressure | 110/84 | 09/26/2018 3:16 PM | | | | | PDT | | + + + + + | Pulse | 70 | 09/26/2018 3:16 PM | | | | | PDT | | + + + + + | Temperature | - | - | | + + + + + | Respiratory Rate | 15 | 09/26/2018 3:16 PM | | | | | PDT | | + + + + + | Oxygen Saturation | - | - | | + + + + + | Inhaled Oxygen | - | - | | | Concentration | | | | + + + + + | Weight | 76.2 kg (168 lb) | 09/26/2018 3:16 PM | | | | | PDT | | + + + + + | Height | - | - | | + + + + + | Body Mass Index | 27.12 | 08/05/2018 2:44 PM | | | | | PDT | | + + + + + documented in this encounter Patient Instructions Patient Instructions Yuriy Cardenas PA-C - 09/26/2018 2:20 PM PDTI am glad the Jardiance i s working so well, it seems like the numbers are doing better. We should see how the A1c is to decide what to do about the dosing. If low we could change you to one of the insulins with a combo like Victoza. I sent the strips, if they need them at your DME company we can do that, and wait on new mo nitor until you are here. We will send the oxygen testing to them once they send us the correct form. Let's meet for the 2 month check in. Electronically signed by Yuriy Cardenas PA-C at 2018 4:17 PM PDT documented in this encounter Progress Notes Adam Mccrary MD,MPH - 09/26/2018 2:20 PM PDTIn accordance with [facility] t[facility], this chart was reviewed by me on 10.05.18. Ez Mccrary Gayle Partida MA - 09/26/2018 2:20 PM PDTTook patient on a walk test Pt O2 started at 97% sitting room with out oxygen Took pt on a walk for 5 minutes around clinic and pt O2 dropped to 91% Yuriy Rangel PA-C - 09/26/2018 2:20 PM P DT SUBJECTIVE: Nancy is a 47 y.o. female who presents for follow up of diabetes and below issues. Her home medical company told that they had not billed her insurance for her last year of o xygen therapy. Needs new walk test. She is needing new strips for her BG monitor. She reports the following: no unusual visual symptoms, no hypoglycemia, no medication side effects noted Home BG range has been really good since addition of new med (Jardiance), but has 2x had a low BG where she had really bad symptoms. Average fasted BG 140-170, mealtimes often around 210-220 Finds with being on the Jardiance she needs less insulin and rarely her AM SS. Injects 30 BID of Levemir, and SS of Novolog, normally 15-20 at meals, normally 2x per day. Taking meds regularly. Denies any SE's with these. Does not check home BP's regularly. Met with new acid operator. Has had to use NTG about 3x per month for chest pain, was told by acid operator this was a r easonable range given her issues. Saw oncologist at [facility] but he is having to leave department so she is changing providers. Treatment with depression has been working well. Feels mood is positive, looking forward t o future plans. ROS: Denies GUERIN, no palpitations, no lightheadedness/dizziness, not having visual, motor or sensory changes. OBJECTIVE: BP 110/84 | Pulse 70 | Resp 15 | Wt 76.2 kg (168 lb) | BMI 27.12 kg/m | BSA 1.88 m Gen: alert, in NAD Lungs: CTA bilaterally, without wheezes/rales/rhonchi Heart: RRR with no murmur/rub/gallop Psych: normal mood and affect, no pressured speech, displays normal thought content, reason ing intact, shows good insight Recent Labs 10/04/17 [...] current use of ins ulin (HCC) E11.42 COMPLETE METABOLIC SET (NA,K,CL,CO2,BUN,CREAT,GLUC,CA,AST,ALT,BILI TOTAL,A LK PHOS,ALB,PROT TOTAL) Z79.4 HEMOGLOBIN A1C, BLOOD 2. Atherosclerosis of [place] coronary artery of [place] heart with stable angina pectoris (H CC) I25.118 3. Essential hypertension, benign I10 Blood Sugar Diagnostic (ONETOUCH ULTRA TEST) strip 4. Non-small cell cancer of left lung (HCC) C34.92 morphine SR 10 mg oral capsule,extend.re lease pellets oxyCODONE (immediate release) 5 mg oral tablet CBC ONLY CBC (HEMOGRAM) ONLY DISCONTINUED: morphine SR 10 mg oral capsule,extend.release pellets DISCONTINUED: oxyCODONE (immediate release) 5 mg oral tablet 5. Other chronic postprocedural pain G89.28 morphine SR 10 mg oral capsule,extend.release p ellets oxyCODONE (immediate release) 5 mg oral tablet DISCONTINUED: morphine SR 10 mg oral capsule,extend.release pellets DISCONTINUED: oxyCODONE (immediate release) 5 mg oral tablet 6. Leukocytosis, unspecified type D72.829 CBC ONLY CBC (HEMOGRAM) ONLY I am glad the Jardiance is working so well for her, it seems like home numbers are doing be tter. Given her cardiac risks this is particularly good choice for her. We should see how the A1c is to decide what to do about the dosing. If it is not yet in ra nge we could change her to one of the insulins with GLP-1 agonist combination or once-weekly GLP-1. I sent glucose strips, if they need them at her [employer] company we can do that, and wait on new monitor until she has moved here. We will send the oxygen testing to them once they send us the correct form. However, based upon testing today (did not get below 91% with O2 off) it appears she may have improved to the point that she no longer needs this. We should meet for her 2 month check in, sooner if she is back to area soon. Asa Matos MA - 2:20 PM PDTPt here for medication refill Electronically signed by ROBERTO Momin 10/01/2018 10:34 AM PDTdocumented in this encounter Plan of Treatment Not on filedocumented as of this encounter Procedures + +--------+ + + + | Procedure Name | Priori | Date/Time | Associated Diagnosis | Comments | | | ty | | | | + +--------+ + + + | CBC (HEMOGRAM) ONLY | Routin | 09/26/2018 | Non-small cell | Results for this | | | e | 4:21 PM | cancer of left lung | procedure are in the | | | | PDT | (HCC) Leukocytosis, | results section. | | | | | unspecified type | | + +--------+ + + + | COMPLETE METABOLIC | Routin | 09/26/2018 | Type 2 diabetes | Results for this | | SET | e | 4:21 PM | mellitus with | procedure are in the | | (NA,K,CL,CO2,BUN,CRE | | PDT | diabetic | results section. | | AT,GLUC,CA,AST,ALT,B | | | polyneuropathy, with | | | TEOFILO TOTAL,ALK | | | long-term current | | | PHOS,ALB,PROT TOTAL) | | | use of insulin (HCC) | | + +--------+ + + + | CBC ONLY | Routin | 09/26/2018 | Non-small cell | Results for this | | | e | 4:21 PM | cancer of left lung | procedure are in the | | | | PDT | ([facility]) Leukocytosis, | results section. | | | | | unspecified type | | + +--------+ + + + | HEMOGLOBIN A1C, | Routin | 09/26/2018 | Type 2 diabetes | Results for this | | BLOOD | e | 4:21 PM | mellitus with | procedure are in the | | | | PDT | diabetic | results section. | | | | | polyneuropathy, with | | | | | | long-term current | | | | | | use of insulin (HCC) | | + +--------+ + + + documented in this encounter Results CBC (HEMOGRAM) ONLY (09/26/2018 4:21 PM PDT) + + + + + + | Component | Value | Ref Range | Performed | Pathologist | | | | | At | Signature | + + + + + + | WHITE CELL | 12.55 (H) | 3.50 - 10.80 | [facility] | | | COUNT | | K/cu mm | LABORATORY | | | | | | SERVICES, | | | | | | CORE | | + + + + + + | RED CELL | 5.29 (H) | 4.00 - 5.20 | [facility] | | | COUNT | | M/cu mm | LABORATORY | | | | | | SERVICES, | | | | | | CORE | | + + + + + + | HEMOGLOBIN | 15.7 | 12.0 - 16.0 | [facility] | | | | | g/dL | LABORATORY | | | | | | SERVICES, | | | | | | CORE | | + + + + + + | HEMATOCRIT | 47.7 (H) | 36.0 - 46.0 % | [facility] | | | | | | LABORATORY | | | | | | SERVICES, | | | | | | CORE | | + + + + + + | MCV | 90.2 | 80.0 - 100.0 fL | [facility] | | | | | | LABORATORY | | | | | | SERVICES, | | | | | | CORE | | + + + + + + | MCHC | 32.9 | 32.0 - 36.0 | [facility] | | | | | g/dL | LABORATORY | | | | | | SERVICES, | | | | | | CORE | | + + + + + + | RDW SD | 43.2 | 35.1 - 46.3 fL | [facility] | | | | | | LABORATORY | | | | | | SERVICES, | | | | | | CORE | | + + + + + + | PLATELET | 350 | 150 - 400 K/cu | [facility] | | | COUNT | | mm | LABORATORY | | | | | | SERVICES, | | | | | | CORE | | + + + + + + | MPV | 11.0 | 9.7 - 12.3 fL | [facility] [...] | + + + + + | [facility] | [address] | [place] [address] | | | SERVICES, CORE | PARK [...] | [facility] | | considered for monitoring rat exterminator glycemic control in patients with: | LABORATORY [...] [facility] | [address] | [place] [address] | | | SERVICES, SPECIAL | PARK [...] | | | LABORATORY | | | CITIZ[place] | | | SERVICES, | | | [...] MDRD equation recommended by the National | [facility] | | Kidney Disease Education Program. Estimated [...] [facility] | [address] | [place] [address] | | | SERVICES, CORE | [address] | | | + + + + + documented in this encounter Visit Diagnoses + + | Diagnosis | + + | Type 2 diabetes mellitus with diabetic polyneuropathy, with long-term current use of | | insulin (HCC) - Primary | + + | Atherosclerosis of [place] coronary artery of [place] heart with stable angina pectoris | | (HCC) | + + | Essential hypertension, benign | + + | Non-small cell cancer of left lung (HCC) | + + | Other chronic postprocedural pain | + + | Leukocytosis, unspecified type | + + documented in this encounter"
--- OUTSIDE RECORDS SUMMARY | ~2019-10-16 | XMS | Encounter Summary ---
Demographics + + + | Address | [address] | | | [place] [address] | + + + | Home Phone [...] [address] | Unavailable | | | | #[address], [place] | | | | | [address] | | + + + + + | Bebe Terrazas | ECON | Unknown | Unavailable | + + + + + | Arden Hammondi | ECON | Unknown | | + + + + + Care Team Providers + +------+ + | Care Fabric And Accessories Estimator Name | Role | Phone | + +------+ + | Yuriy Cardenas PA-C | PCP | | + +------+ + Encounter Details +--------+--------+ + + + | Date | Type | Department | Care Team | Description | +--------+--------+ + + + | 09/07/ | Travel [...]
--- OUTSIDE RECORDS SUMMARY | ~2019-10-16 | XMS | Encounter Summary ---
Demographics + + + | Address | [address] | | | [place] [address] | + + + | Home Phone [...] #[place] | | | | | [address] | | + + + + + | Bebe Terrazas | ECON | Unknown | Unavailable | + + + + + | Arden Terrazas | ECON | Unknown | | + + + + + Care Team Providers + +------+ + | Care Compliance Clerk Name | Role | Phone | + +------+ + | Crissy Santoyo PA-C | PCP | | + +------+ + Encounter Details +--------+ + + + + | Date | Type | Department | Care Team | Description | +--------+ + + + + | 04/07/ | Hospital | Radiology/Imaging | | | | 2016 | Encounter | Lab at [facility] [address] | | | | | | [facility] | | | | | | [facility] He[facility], | | | | | | [address] | | | | | | Floor [place], [place] | | | | | | [address] | | | | | | [phone] | | | +--------+ + + + [...] | X-RAY SCOLI SPINE | Routin | 04/07/2015 | Midline thoracic | Results for this | | ENTR SRVY AP &LAT | e | 4:33 PM | back pain | procedure are in the | | | | PST | | results section. | + +--------+ + + + documented in this encounter Results X-RAY SCOLI SPINE ENTR SRVY AP &LAT (04/07/2015 4:33 PM PST) + [...] | | | | | | SAROJ MDAuthor: | | | | | | PHYLLIS [...] | | | | | signed / KYLE | | | | | [...] + + | Midline thoracic back pain | + + documented in this encounter"
--- OUTSIDE RECORDS SUMMARY | ~2019-10-16 | XMS | Encounter Summary ---
Demographics + + + | Address | [address] | | | [place] [address] | + + + | Home Phone [...] + + + | Author | [facility] | + + + | Organization | [facility] | + + + [...] #[address] | | | | | [address] | | + + + + + | Bebe Terrazas | ECON | Unknown | Unavailable | + + + + + | Arden Terrazas | ECON | Unknown | | + + + + + Care Team Providers + +------+ + | Care Sustainable Development Policy Analyst Name | Role | Phone | + +------+ + | Crissy Santoyo PA-C | PCP | | + +------+ + Reason for Visit +--------+ + | Reason | Comments | +--------+ + | Other | | +--------+ + Encounter Details +--------+ + + + + | Date | Type | Department | Care Team | Description | +--------+ + + + + | 05/04/ | Telephone | [facility] | Barbara Carlin, | | | 2013 | | Pain Center at | ANP | | | | | [facility] | | | | | | [address] | | | | | | [facility] | | | | | | and Healing, | | | | | | Building | | | | | | Floor [place], [place] | | | | | | [address] | | | | | | [phone] | | | +--------+ + + + [...]
--- OUTSIDE RECORDS SUMMARY | ~2019-10-16 | XMS | Encounter Summary ---
Demographics + + + | Address | [address] | | | [place] [address] | + + + | Home Phone [...] + + + | Author | [facility] | + + + | Organization | [facility] | + + + | [...] #[place] | | | | | [address] | | + + + + + | Bebe Terrazas | ECON | Unknown | Unavailable | + + + + + | Arden Terrazas | ECON | Unknown | | + + + + + Care Team Providers + +------+ + | Care Manager Social Responsibility Name | Role | Phone | + +------+ + | Yuriy Cardenas PA-C | PCP | | + +------+ + Encounter Details +--------+ + + + + | Date | Type | Department | Care Team | Description | +--------+ + + + + | 12/24/ | MyChart | [facility] Primary Care | Yuriy Cardenas, | Medication | | 2019 | Encounter | at [place] [address] | PA-C [address] | | | | [address] | [address] | | | | | [place], [place] | [place], [place] | | | | | [address] | [address] | | | | | [phone] | [phone] | | | | | | | [...]
--- OUTSIDE RECORDS SUMMARY | ~2019-10-16 | XMS | Encounter Summary ---
Demographics + + + | Address | [address] | | | [place] [address] | + + + | Home Phone | | + + + | Preferred Language | Unknown | + + + | Marital Status | | + + + | Sikh Affiliation | PRE | + + + [...] ST | Unavailable | | | | #[place], [place] | | | | | [address] | | + + + + + | Bebe Terrazas | ECON | Unknown | Unavailable | + + + + + | Arden Hammondi | ECON | Unknown | | + + + + + Care Team Providers + +------+ + | Care Snack Foods Mixer Operator Name | Role | Phone | [...]
--- OUTSIDE RECORDS SUMMARY | ~2019-10-16 | XMS | Encounter Summary ---
Demographics + + + | Address | [address] | | | [place] [address] | + + + | Home Phone [...] [place] | | | | | [address] | | + + + + + | Bebe Terrazas | ECON | Unknown | Unavailable | + + + + + | Arden Terrazas | ECON | Unknown | | + + + + + Care Team Providers + +------+ + | Care Sales Operations Consultant Name | Role | Phone | + [...] + + | 05/04/ | Telephone | [facility] | Barbara Carlin, | | | 2013 | | Pain Center at | ANP | | | | | [facility] | | | | | | [address] | | | | | | [facility] | | | | | | and Healing, | | | | | | Building | | | | | | Floor [place], [place] | | | | | | [address] | | | | | | [phone] | | | +--------+ + + + [...]
--- OUTSIDE RECORDS SUMMARY | ~2019-10-16 | XMS | Encounter Summary ---
Demographics + + + | Address | [address] | | | [place] [address] | + + + | Home Phone [...] + + | Author | [facility] | + + + | Organization | [facility] | + + + | [...] #[place] | | | | | [address] | | + + + + + | Bebe Terrazas | ECON | Unknown | Unavailable | + + + + + | Arden Terrazas | ECON | Unknown | | + + + + + Care Team Providers + +------+ + | Care Web Development Intern Name | Role | Phone | + +------+ + | Zora Haddad DO | PCP | | + +------+ + Reason for Visit + + + | Reason | Comments | + + + | Medication Questions | | + + + Encounter Details +--------+ + + + + | Date | Type | Department | Care Team | Description | +--------+ + + + + | 02/09/ | Telephone | Neurosurgery at | Sivakumar Tanner, | Medication Questions | | 2012 | | [facility] [address] | MD [address] | | | | | Ave Center for | [place], [place] | | | | | Health and Healing, | [address] | | | | | [facility] | [phone] | | | | | [place], [place] | | | | | | [address] | | | | | | [phone] | | | +--------+ + + + [...]
--- OUTSIDE RECORDS SUMMARY | ~2019-10-16 | XMS | Encounter Summary ---
Demographics + + + | Address | [address] | | | [place] [address] | + + + | Home Phone [...] [place], [place] | | | | | [address] | | + + + + + | Bebe Terrazas | ECON | Unknown | Unavailable | + + + + + | Arden Hammondi | ECON | Unknown | | + + + + + Care Team Providers + +------+ + | Care Hospitalist Physician Name | Role | Phone | + [...] [address] | [address] [facility] | | | | | [place], [place] | [address] [place], | | | | | [address] | [place] [address] | | | | | | [phone] | | | | | | | [...] [facility] | [address] | [place], [place] | | | LAB | | [address] | | + + + + + | [facility] | [address] | [place], [place] | | | LAB | | [address] | | + + + + + [...] [place] | | | LAB | | [address] | | + + + + + | [facility] | [address] | [place] | | | LAB | | [address] | | + + + + + [...] [facility] | [address] | [place], [place] | | | LAB | | [address] | | + + + + + | [facility] | [address] | [place], [place] | | | LAB | | [address] | | + + + + + [...] [facility] | [address] | [place], [place] | | | LAB | | [address] | | + + + + + | [facility] | [address] | [place], [place] | | | LAB | | [address] | | + + + + + [...] [facility] | [address] | [place], [place] | | | LAB | | [address] | | + + + + + | [facility] | [address] | [place], [place] | | | LAB | | [address] | | + + + + + [...] [place] | | | LAB | | [address] | | + + + + + | [facility] | [address] | [place], [place] | | | LAB | | [address] | | + + + + + [...] RADIOLOGY | [address] | [place], [place] | [phone] | | | | [address] | | + + + + + [...] | RADIOLOGY | | COMPARISON: 05/26/12 at [facility]. TECHNIQUE: | | | 1.5 [...] | + + | Interface, Lab Results [facility] - 10/25/2016 5:01 PM PDT MRI OF THE LUMBAR SPINE WITH | | & WITHOUT CONTRASTCLINICAL INFORMATION: Back pain, radiculopathy on the right. Fusion | | 07/16/12. COMPARISON: 05/26/12 at [facility].TECHNIQUE: 1.5 lili imaging with and | [...] RADIOLOGY | [address] | [place], [place] | [phone] | | | | [address] | | + + + + + documented in this encounter Visit Diagnoses Not on filedocumented in this encounter"
--- OUTSIDE RECORDS SUMMARY | ~2019-10-16 | XMS | Encounter Summary ---
Demographics + + + | Address | [address] | | | [place] [address] | + + + | Home Phone | | + + + | Preferred Language | Unknown | + + + | Marital Status | | + + + | Druze Affiliation | PRE | + + + | Race | White | + + + | Ethnic Group | Not or | + + + Author + + + | Author | [facility] | + + + | Organization | [facility] | + + + | [...] #[place] | | | | | [address] | | + + + + + | Bebe Terrazas | ECON | Unknown | Unavailable | + + + + + | Arden Terrazas | ECON | Unknown | | + + + + + Care Team Providers + +------+ + | Care Carton Folder Name | Role | Phone | + [...] + + | 03/18/ | Telephone | [facility] | Yuriy Cardenas, | Medication | | 2019 | | at [place] [address] | PA-C [address] | management | | | | [facility] | [facility] | | | | | [facility] [place], [place] | [place], [place] | | | | | [address] | [address] | | | | | [phone] | [phone] | | | | | | | [...]
--- OUTSIDE RECORDS SUMMARY | ~2019-10-16 | XMS | Encounter Summary ---
Demographics + + + | Address | [address] | | | [place] [address] | + + + | Home Phone [...] [address] [place] | | | | | [address] | | + + + + + | Bebe Terrazas | ECON | Unknown | Unavailable | + + + + + | Adren Terrazas | ECON | Unknown | | + + + + + Care Team Providers + +------+ + | [facility] Name | Role | Phone | + +------+ + | Yuriy Cardenas PA-C | PCP | | + +------+ + Encounter Details +--------+ + + + + | Date | Type | Department | Care Team | Description | +--------+ + + + + | 05/17/ | Lab | [facility] Family | Adam Mccrary, | | | 2017 | Requisition | Medicine Lab at | ,[facility] [address] | | | | | [place] [address] [address] | | | | | [address] | [place], [place] | | | | | [place], [place] | [address] | | | | | [address] | [phone] | | | | | [phone] | | | +--------+ + + + [...] | + +--------+ + + + | ALBUMIN URINE, | Routin | 05/17/2017 | Type 2 diabetes | Results for this | | RANDOM | e | 5:33 PM | mellitus with | procedure are in the | | | | PDT | diabetic | results section. 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 | + +--------+ + + + | CULTURE, URINE [facility] | Routin | 05/17/2017 | Frequency of | Results for this | | | e | 5:33 PM | micturition | procedure are in the | | | | PDT | | results section. | + +--------+ + + + documented in this encounter Results CULTURE, URINE [facility] (05/17/2017 5:33 PM PDT) + + + + + + | Component | Value | Ref Range | Performed | Pathologist | | | | | At | Signature | + + + + + + | URINE | No growth (<1000 cfu/mL) | | [facility] | | | CULTURE | after 24 hours | | LABORATORY | | | [facility] | | | SERVICES, | | | | | | CORE | | + + + + + + + + | Specimen | + + | Urine - Urine | | specimen collection, | | clean catch | | (procedure) | + + + + + + + | Performing | Address | City/State/Zipcode | Phone Number | | Organization | | | | + + + + + | [facility] | [address] | [place] [address] | | | SERVICES, CORE | [address] | | | + + + + + ALBUMIN URINE, [facility]OM (05/17/2017 5:33 PM PDT) + +--------+ + + + | Component | Value | Ref Range | Performed | Pathologist | | | | | At | Signature | + +--------+ + + + | ALBUMIN | 12 | <24 mg/L | [facility] | | | URINE, | | | LABORATORY | | | [facility] | | | SERVICES, | | | | | | CORE | | + +--------+ + + + | CREATININE | 28.10 | mg/dL | [facility] | | | CONC UR | | | LABORATORY | | | | | | SERVICES, | | | | | | CORE | | + +--------+ + + + | ALBUMIN/CRE | 43 (H) | <=30 mg/gm | [facility] | | | ATININE | | | LABORATORY | | | RATIO, URI* | | | SERVICES, | | | | | | CORE | | + +--------+ + + + + + | Specimen | + + | Urine - Urine | | (substance) | + + + + + | Narrative | Performed At | + + + | Specimen Type (Code:Text) = URINE:URINE | [facility] | | | LABORATORY | | | SERVICES, CORE | + + + + + + + + | Performing | Address | City/State/Zipcode | Phone Number | | Organization | | | | + + + + + | [facility] | [address] | [place] [address] | | | SERVICES, CORE | [address] | | | + + + + + documented in this encounter Visit Diagnoses + + | Diagnosis | + + | jail current use of insulin (HCC) Encounter for long-term (current) use of | | insulin | + + | Type 2 diabetes mellitus with diabetic polyneuropathy (HCC) Type II or unspecified | | type diabetes mellitus with neurological manifestations, not stated as uncontrolled | + + | Frequency of micturition Urinary frequency | + + documented in this encounter"
--- OUTSIDE RECORDS SUMMARY | ~2019-10-16 | XMS | Encounter Summary ---
Demographics + + + | Address | [address] | | | [place] [address] | + + + | Home Phone | | + + + | Preferred Language | Unknown | + + + | Marital Status | | + + + | Voodoo Affiliation | PRE | + + + [...] [address] [place] | | | | | [address] | | + + + + + | Bebe Merino | ECON | Unknown | Unavailable | + + + + + | Arden Merino | ECON | Unknown | | + + + + + Care Team Providers + +------+ + | Care Syrup Mixer Name | Role | Phone | + [...] | | CONTRAST | [address] | [address] [facility] | | | | | | [facility], | | | | | | Rd | [facility] [address] | | | | | | [place], [place] | [place], [place] | | | | | | [address] | [address] | | | | | | Phone: | Phone: | | | | | | [phone] | [phone] | | | | | | Fax: | Fax: | | | | | | [phone] | [phone] | +--------+--------+ + + + + Reason [...] + + | 12/23/ | Hospital | [facility] [address] | Sivakumar Tanner, | | | 2012 - | Encounter | [address] | [address] | | | | | [id number] [facility] | [place], [place] | | | 12/26/ | | [facility], | [address] | | | 2012 | | [place] [address] | [phone] | | | | | [phone] | | | +--------+ + + + [...] Tanner MD PCP: Zora Haddad DO Service: [facility] Neurosurgery Diagnoses Principal Final Diagnosis: 1. Adjacent [...] Adjacent level Degenerative Disc Disease, admitted to [facility], electively, on 12/24/19 13 for the procedure(s) [...] narcotics/pain medications. Follow Up Follow up at [facility] Neurosurgery [facility], [facility], 8th Floor, [address] [place] [address]; 01/07/13 at 10:30 am. Follow up with [...] 3:21 PM Discharging Attending: Sivakumar Tanner MD [facility] [address] [place] [address] documented in t his encounter Medications at [...] in past) Materials provided Written materials in Citizen Of [place] Living with Type 2 Diabetes program information (ADA) One Touch glucometer (pt does not need test strips) Education outcome Pt receptive to education and verbalizes understanding of insulin requirement. Pt able to return demonstrate drawing and administering insulin with syringe (using [employer] supplies) Recommendations Provide pt with Rx for insulin syringes: 30 unit (3/10cc), 6mm, 31G Pt encouraged to keep records of BG and check in with re: Steroid taper and insulin adj ustment needed Plan Follow up with neuro surgery team Follow up with primary care and pt to request diabetes education Maricarmen Gaines, MPH, RD, LD, RN, CDE Inpatient Diabetes Education Pager #[phone] signed by Maricarmen Colindres RN at 12/26/2012 [...] Range: 0.60-1.10 mg/dL 0.49 (L) EGFR - [place] Latest Range: >60 mL/min >60 EGFR NON -[place] Latest Range: >60 mL/min >60 GLUCOSE, PLASMA [...] within 1-2 weeks time. OLGA BULLOCK PA-C [facility] [address] [address] [address] MEDICATIONS Current Facility-Administered Medications Medication acetaminophen (TYLENOL) [...] meds, monitor, will start weaning of f SENIOR CONTRACTS ADMINISTRATOR-will increase Gabapentin to 300 mg tid increase [...] home in 1-2 days. OLGA BULLOCK PA-C [facility] [address] [address] [address] MEDICATIONS Current Facility-Administered Medications Medication acetaminophen (TYLENOL) [...] in preservative free NaCl 0.9% 50 mL SENIOR CONTRACTS ADMINISTRATOR infusion insulin glargine (LANTUS) injection 20 Units [...] senna-docusate (SENOKOT S) 8.6-50 mg 2 tablet Peg Warner PA - 12/24/2012 6:54 AM PDTFormatting [...] Latest Range: 60-99 mg/dL 257 (H) Labs [facility] and CDC pending. General: 42 y/o [...] with current meds, monitor, Start weaning off SENIOR CONTRACTS ADMINISTRATOR-will increase Gabapent in to 300 mg tid [...] Pending clinical course, pain management. RAMOS HUTCHINSON-C [facility] [address] [address]/[facility] [place] [address] Pg [phone] MEDICATIONS Current Facility-Administered Medications Medication acetaminophen (TYLENOL) [...] in preservative free NaCl 0.9% 50 mL SENIOR CONTRACTS ADMINISTRATOR infusion insulin lispro (HUMALOG) injection lactated ringers [...] procedure. Stable. - Neurochecks q4h - Continue SHELL TRIM OPERATOR meds - Pain control, anti-emetics, SCDs - Mobilize as tolerated - Keep dressings clean - ADAT - SENIOR CONTRACTS ADMINISTRATOR for analgesia PARK SABILLON MD,PhD pgr [phone] documented in this e ncounter Plan of [...] MARQUAM | [address] | [place], [place] | | | RONAN MARSHALL OF [place] | [facility] | [address] | | | TESTS | | | [...] WHITE | [address] | [place], [place] | | | JO[facility]NA POINT OF CARE | [address] | [address] | | | TESTS | | | [...] [facility] | [address] | [place] [address] | | | SERVICES, CORE | PARK [...] | | | LABORATORY | | | [place] | | | SERVICES, | | | [...] | + + + + + | [facility] | [address] | [place] [address] | | | [address] | [...] CINDY | [address] | [place], [place] | | | JO[facility] POINT OF CARE | [address] | [address] | | | TESTS | | | [...] (H) | 60 - 99 mg/dL | [facility] - | | | GLUCOSE, | | [...] WHITE | [address] | [place], [place] | | | [facility] | [facility] | [address] | | | TESTS | | | [...] TONOAM | [address] | [place], [place] | | | RONAN MARSHALL OF [place] | [address] | [address] | | | TESTS | | | [...] - CINDY | [address] | [place], [place] | | | [facility] OF [facility] | [address] | [address] | | | TESTS | | | [...] | + + + + + | [facility] | [address] | [place] [address] | | | SERVICES, CORE | PARK [...] | | | LABORATORY | | | [place] | | | SERVICES, | | | [...] + + + + + | [facility] | [address] | [place] [address] | | | SERVICES, CORE | EDITH [...] (H) | 60 - 99 mg/dL | [facility] - | | | GLUCOSE, | | [...] WHITE | [address] | [place], [place] | | | RONAN MARSHALL OF [place] | [address] | [address] | | | TESTS | | | [...] MARQUAM | [address] | [place], [place] | | | RONAN MARSHALL OF CARE | [address] | [address] | | | TESTS | | | [...] WHITE | [address] | [place], [place] | | | [facility] | [facility] | [address] | | | TESTS | | | [...] | | | | | | the L5-H8biusdxkyoh | | | | | | levels. [...] WHITE | [address] | [place], [place] | | | RONAN MARSHALL OF CARE | [address] | [address] | | | TESTS | | | [...] MARBOAZAM | [address] | [place], [place] | | | RONAN MARSHALL OF CARE | [address] | [address] | | | TESTS | | | | + + + + + OPERATION RECORD (12/24/2012 8:48 AM PDT) + + | Transcriptions | + + | Sivakumar Tanner MD - 12/23/2012 11:22 PM PDT Date of Service: 12/23/2012ttending | | Surgeon: Sivakumar Tanner MD Energy Projects Lead(s): MD Juwan Ruano MD | | Preoperative Diagnoses: 1. Adjacent level degenerative disk disease at L3-4.2. L4 | | radiculopathy.3. Spondylosis.4. Herniated nucleus pulposus at L3-4.Postoperative | | Diagnoses: 1. Adjacent level degenerative disk disease at L3-4.2. L4 radiculopathy.3. | | Spondylosis.4. Herniated nucleus pulposus at L3-4.Procedures Performed: 1. Direct | | lateral interbody fusion using [place] of L3-4 on the left lateral approach.2. [...] caps. We tightened them down with final silverware washer. We compressed | | across L3-4 bilaterally. [...] | note for this encounter.DARIN Rayo MDOHSU [id number] | | [id number], [place] [id number]: 12/23/2012 23:22:14Job #: | | [id number] | + + CBC (HEMOGRAM) ONLY (12/24/2012 [...] | + + + + + | [facility] | [address] | [place] [address] | | | SERVICES, CORE | EDITH [...] | | | LABORATORY | | | [place] | | | SERVICES, | | | [...] + + + + + | [facility] | [address] | [place] [address] | | | SERVICES, CORE | PARK [...] WHITE | [address] | [place], [place] | | | RONAN MARSHALL OF [place] | [facility] | [address] | | | TESTS | | | [...] LABORATORY | [address] | [place] [address] | | | SERVICES, | [address] [...] | + + + + + | [facility] | [address] | [place] [address] | | | SERVICES, | [address] [...] + + | [facility] | [address] | [place] [address] | | | SERVICES, | EDITH CARRILLO | | | | TRANSFUSION MEDICINE | | | | + + + + + INTRAOPERATIVE NEURO MONITORING (12/23/2012) + + + | Narrative | Performed At | + + + | Patient Name: Mary Merino Date of : 1970 | | | Date of Test: 12/23/2012 Place | | | of Service: Intra Op ([phone] [id number] INTRAOPERATIVE | | | NEURO MONITORING History: [...] | | AM by: Maryann Brunner MD Messenger Floorperson of Neurology | | | Department of Clinical Neurophysiology Suggested CPT: | | | G0453 - IOM Continuous undivided attention to single patient x 8 @ 15 | | | min(s) 40723 - EMG Two Extremity Suggested Diagnosis: 336.9 [...] 13 1:10 | | | | | SENIOR CONTRACTS ADMINISTRATOR infusion intravenous, | | AM PDT | [...] | | | + +---+ | HYDROmorphone SENIOR CONTRACTS ADMINISTRATOR infusion 1 | | | dose, Starting [...] | | | (after last modification) on [facility] | | | | | | [...] | | | | last modification) on [facility] | | | | | | [...]
--- OUTSIDE RECORDS SUMMARY | ~2019-10-16 | XMS | Encounter Summary ---
Demographics + + + | Address | [address] | | | [place] [address] | + + + | Home Phone | | + + + | Preferred Language | Unknown | + + + | Marital Status | | + + + | Anglican Affiliation | PRE | + + + [...] [place] [place] | | | | | [address] | | + + + + + | Bebe Terrazas | ECON | Unknown | Unavailable | + + + + + | Arden Terrazas | ECON | Unknown | | + + + + + Care Team Providers + +------+ + | Care Hot Metal Mixer Operator Helper Name | Role | Phone | + [...] Description | +--------+--------+ + + + | 12/17/ | Refill | [facility] Primary Care | Yuriy Cardenas, | Refill Request | | 2018 | | at [place] [address] | PA-C [address] | | | | [facility] | [facility] | | | | | [facility] [place], [place] | [place], [place] | | | | | [address] | [address] | | | | | [phone] | [phone] | | | | | | | [...] + | Diagnosis | + + | Other chronic postprocedural pain | + + documented in this encounter"
--- OUTSIDE RECORDS SUMMARY | ~2019-10-16 | XMS | Encounter Summary ---
Demographics + + + | Address | [address] | | | [place] [address] | + + + | Home Phone | | + + + | Preferred Language | Unknown | + + + | Marital Status | | + + + | Spiritism Affiliation | [phone] | + + + | Race | Unknown | + + + | Ethnic Group | Unknown | + + + Author + + + | Author | [facility] | | | and [place] | + + + | Organization | [facility] | | | and [place] | + + + | Address | Unknown | + + + | Phone | Unavailable | + + + Support + + + + + | Name | Relationship | Address | Phone | + + + + + | Dustin Merino | ECON | [place] | | | | | [address] | | + + + + + | Bebe Merino | ECON | [address] | | | | | [place], [place] | | | | | [address] | | + + + + + Care Team Providers + +------+ + | Care Registration Officer Name | Role | Phone | + +------+ + | Ki Senior NP | PCP | | + +------+ + Encounter Details +--------+ + + + + | Date | Type | Department | Care Team | Description | +--------+ + + + + | 04/05/ | Orders Only | [facility] | Baylee Milan | | | 2018 | | [place] | [address] | | | | | ECHO [address] | [address] | | | | | [address] [place], [place] | [place] [address] | | | | | [address] | [phone] | | | | | [phone] | | | +--------+ + + + [...] +--------+ + + + | ECHO COMPLETE W | Routin | 06/06/2017 | | Results for this | | CONTRAST | e | 6:09 PM | | procedure are in the | | | | PDT | | results section. | + +--------+ + + + documented in this encounter Results ECHO Complete w Contrast (06/06/2017 6:09 PM PDT) + + | Specimen | + + | | + + + + + | Impressions | Performed At | + + + | 1. This was a technically difficult study with suboptimal views. 2. | | | Overall left ventricular systolic function is normal with, an EF | | | between 65 - 70 %. 3. No regional wall motion abnormalities. 4. The | | | right ventricle is normal in size and systolic function. | | + + + + + + | Narrative | Performed At | + + + | Patient Name: MARY MERINO Date of : 1970 | | | Performing Physician: Pilo Ocampo MD | | | | | | INDICATIONS CAD, stenting CONCLUSIONS | | | 1. This was a technically difficult study with suboptimal views. 2. | | | Overall left ventricular systolic function is normal with, an EF | | | between 65 - 70 %. 3. No regional wall motion abnormalities. 4. The | | | right ventricle is normal in size and systolic function. FINDINGS | | | -------- ECG rhythm: Sinus rhythm. Borderline r ECG rhythm: esting | | | tachycardia (HR>100bpm). Study: A 2-dimensional transthoracic | | | echocardiogram with m-mode, spectral and color flow Doppler was | | | perfomed. Study: Definity contrast agent was used to better delineate | | | the left ventricular wall segments. Study: This was a technically | | | difficult study with suboptimal views. Left Ventricle: Overall left | | | ventricular systolic function is normal with, an EF between 65 - 70 %. | | | Left Ventricle: The left ventricle cavity size is normal. Left | | | Ventricle: Left ventricular wall thickness is normal. Left Ventricle: | | | No obvious regional wall motion abnormalities. Left Ventricle: | | | Cannot assess diastolic function due to tachycardia. Left Ventricle: | | | Equivocal basal posterolateral hypokinesia. Right Ventricle: The | | | right ventricle is normal in size. Right Ventricle: The right | | | ventricular systolic function is normal. Left Atrium: The left atrium | | | is normal in size. Right Atrium: The right atrium is normal in size. | | | Aortic Valve: The aortic valve was not well visualized. Aortic | | | Valve: There is no evidence of aortic regurgitation. Aortic Valve: | | | There is no evidence of aortic stenosis. Mitral Valve: The mitral | | | valve was not well visualized. Mitral Valve: There is trace mitral | | | regurgitation. Tricuspid Valve: The tricuspid valve was not well | | | visualized. Tricuspid Valve: Trace tricuspid regurgitation present. | | | Tricuspid Valve: Pulmonary artery systolic pressure could not be | | | assessed due to the absence of adequate TR jet. Pulmonic Valve: The | | | pulmonic valve was not well visualized. Pericardium: There is no | | | pericardial effusion. IVC/Hepatic Veins: The IVC is normal size | | | (1.5-2.5cm) and collapses >50% with sniff, consistent with central | | | venous pressures of 5-10mmHg. Aorta: The aortic root, ascending aorta | | | and aortic arch are normal. Septum: No ASD observed. Septum: No VSD | | | observed. Contrast: Poor visualization. Definity was used to opacify | | | the left ventricular chamber and improve delineation of the | | | endocardial border. MEASUREMENTS Ao asc: 3.43 | | | cm Ao st junct: 2.88 cm IVC: 1.65 cm LA Major: 4.20 cm | | | EDV(Teich): 118.83 ml IVSd: 0.94 cm LVIDd: 5.01 cm LVPWd: | | | 0.88 cm LVOT Area: 4.15 cm2 LVOT Diam: 2.30 cm %FS: | | | 26.49 % EF(Teich): 51.61 % ESV(Teich): 57.50 ml LVIDs: | | | 3.68 cm SV(Teich): 61.33 ml RV Major: 6.98 cm RVIDd: 2.99 | | | cm Ao Root: 3.12 cm Ao Diam SVals: 3.25 cm LVEF MOD A2C: | | | 65.40 % SV MOD A2C: 44.82 ml LVEF MOD A4C: 63.91 % SV MOD | | | A4C: 53.66 ml EF Biplane: 65.79 % LVEDV MOD BP: 79.54 ml | | | LVESV MOD BP: 27.20 ml LVEDV MOD A2C: 68.54 ml LVLd A2C: | | | 7.77 cm LVEDV MOD A4C: 83.96 ml LVLd A4C: 7.03 cm LVESV MOD | | | A2C: 23.71 ml LVLs A2C: 6.62 cm LVESV MOD A4C: 30.29 ml | | | LVLs A4C: 6.41 cm LAESV(A-L): 45.48 ml LAESV Index (A-L): | | | 22.62 ml/m2 LAAs A2C: 14.95 cm2 LAESV A-L A2C: 41.13 ml LALs | | | A2C: 4.61 cm LAAs A4C: 16.53 cm2 LAESV A-L A4C: 48.78 ml | | | LALs A4C: 4.75 cm RAAs: 16.54 cm2 RAESV A-L: 45.86 ml | | | RAESV MOD: 44.68 ml RALs: 5.06 cm TAPSE: 2.52 cm AV maxPG: | | | 7.58 mmHg AV meanP.12 mmHg AV Vmax: 1.37 m/s AV | | | Vmean: 0.95 m/s AV VTI: 22.79 cm MATILDA Vmax: 3.45 cm2 MATILDA | | | (VTI): 3.82 cm2 LVOT maxP.23 mmHg LVOT meanP.74 | | | mmHg LVSI Dopp: 43.38 ml/m2 LVSV Dopp: 87.19 ml LVOT Vmax: | | | 1.14 m/s LVOT Vmean: 0.76 m/s LVOT VTI: 20.97 cm MV A Kenny: | | | 0.64 m/s MV Dec Wilcox: 4.60 m/s2 MV DecT: 151.97 ms MV E | | | Kenny: 0.70 m/s MV E/A Ratio: 1.09 MV PHT: 44.07 ms MVA By | | | PHT: 4.99 cm2 Septal e': 0.06 m/s Septal E/e': 10.59 | | | Lateral e': 0.06 m/s Lateral E/e': 10.09 S': 0.14 m/s | | | Principal Cyber Engineer: BRENT Authenticated by: Pilo Ocampo MD Report | | | Date/Time: 06-08-2017 21:35:18 | | + + + + + | Procedure Note | + + | Ross Worley - 10/23/2018 4:30 PM PDT Patient Name: Lopez MERINO of | | : 1970 Performing Physician: Pilo Ocampo | | INDICATIONS C | | AD, stenting CONCLUSIONS 1. This was a technically difficult study with | | suboptimal views.2. Overall left ventricular systolic function is normal with, an EF | | between 65 - 70 %.3. No regional wall motion abnormalities.4. The right ventricle is | | normal in size and systolic function. FINDINGS--------ECG rhythm: Sinus rhythm. | | Borderline rECG rhythm: esting tachycardia (HR>100bpm).Study: A 2-dimensional | | transthoracic echocardiogram with m-mode, spectral and color flow Doppler was | | perfomed.Study: Definity contrast agent was used to better delineate the left | | ventricular wall segments.Study: This was a technically difficult study with suboptimal | | views.Left Ventricle: Overall left ventricular systolic function is normal with, an EF | | between 65 - 70 %.Left Ventricle: The left ventricle cavity size is normal.Left | | Ventricle: Left ventricular wall thickness is normal.Left Ventricle: No obvious regional | | wall motion abnormalities.Left Ventricle: Cannot assess diastolic function due to | | tachycardia.Left Ventricle: Equivocal basal posterolateral hypokinesia.Right Ventricle: | | The right ventricle is normal in size.Right Ventricle: The right ventricular systolic | | function is normal.Left Atrium: The left atrium is normal in size.Right Atrium: The | | right atrium is normal in size.Aortic Valve: The aortic valve was not well | | visualized.Aortic Valve: There is no evidence of aortic regurgitation.Aortic Valve: | | There is no evidence of aortic stenosis.Mitral Valve: The mitral valve was not well | | visualized.Mitral Valve: There is trace mitral regurgitation.Tricuspid Valve: The | | tricuspid valve was not well visualized.Tricuspid Valve: Trace tricuspid regurgitation | | present.Tricuspid Valve: Pulmonary artery systolic pressure could not be assessed due to | | the absence of adequate TR jet.Pulmonic Valve: The pulmonic valve was not well | | visualized.Pericardium: There is no pericardial effusion.IVC/Hepatic Veins: The IVC is | | normal size (1.5-2.5cm) and collapses >50% with sniff, consistent with central venous | | pressures of 5-10mmHg.Aorta: The aortic root, ascending aorta and aortic arch are | | normal.Septum: No ASD observed.Septum: No VSD observed.Contrast: Poor visualization. | | Definity was used to opacify the left ventricular chamber and improve delineation of the | | endocardial border. MEASUREMENTS Ao asc: 3.[address] junct: 2.88 | | cmIVC: 1.65 cmLA Major: 4.20 cmEDV(Teich): 118.83 mlIVSd: 0.94 cmLVIDd: 5.01 | | cmLVPWd: 0.88 cmLVOT Area: 4.15 [id number] Diam: 2.30 cm%FS: 26.49 %EF(Teich): | | 51.61 %ESV(Teich): 57.50 mlLVIDs: 3.68 cmSV(Teich): 61.33 mlRV Major: 6.98 | | cmRVIDd: 2.99 cmAo Root: 3.12 cmAo Diam SVals: 3.25 cmLVEF MOD A2C: 65.40 %SV | | MOD A2C: 44.82 mlLVEF MOD A4C: 63.91 %SV MOD A4C: 53.66 mlEF Biplane: 65.79 | | %LVEDV MOD BP: 79.54 mlLVESV MOD BP: 27.20 mlLVEDV MOD A2C: 68.54 mlLVLd A2C: | | 7.77 cmLVEDV MOD A4C: 83.96 mlLVLd A4C: 7.03 cmLVESV MOD A2C: 23.71 mlLVLs A2C: | | 6.62 cmLVESV MOD A4C: 30.29 mlLVLs A4C: 6.41 cmLAESV(A-L): 45.48 mlLAESV Index | | (A-L): 22.62 ml/m2LAAs A2C: 14.95 [id number] A-L A2C: 41.13 mlLALs A2C: 4.61 | | cmLAAs A4C: 16.53 [id number] A-L A4C: 48.78 mlLALs A4C: 4.75 cmRAAs: 16.54 | | [id number] A-L: 45.86 mlRAESV MOD: 44.68 mlRALs: 5.06 cmTAPSE: 2.52 cmAV maxPG: | | 7.58 mmHgAV meanP.12 mmHgAV Vmax: 1.37 m/Eddie Vmean: 0.95 m/Eddie VTI: 22.79 | | cmAVA Vmax: 3.45 cm2AVA (VTI): 3.82 [id number] maxP.23 mmHgLVOT meanP.74 | | mmHgLVSI Dopp: 43.38 ml/m2LVSV Dopp: 87.19 mlLVOT Vmax: 1.14 m/sLVOT Vmean: 0.76 | | m/sLVOT VTI: 20.97 cmMV A Kenny: 0.64 m/sMV Dec Wilcox: 4.60 m/s2MV DecT: 151.97 | | msMV E Kenny: 0.70 m/sMV E/A Ratio: 1.09MV PHT: 44.07 msMVA By PHT: 4.99 [id number] | | e': 0.06 m/sSeptal E/e': 10.59Lateral e': 0.06 m/sLateral E/e': 10.09S': 0.14 | | m/s Principal Cyber Engineer: TONYuthenticated by: Pilo Ocampo [facility] Date/Time: 06-08-2017 | | 21:35:18 IMPRESSION: 1. This was a technically difficult study with suboptimal views.2. | | Overall left ventricular systolic function is normal with, an EF between 65 - 70 %.3. No | | regional wall motion abnormalities.4. The right ventricle is normal in size and | | systolic function. | | | |Ao asc: 3.43 cm | |Ao st junct: 2.88 cm | |IVC: 1.65 cm | |LA Major: 4.20 cm | |EDV(Teich): 118.83 ml | |IVSd: 0.94 cm | |LVIDd: 5.01 cm | |LVPWd: 0.88 cm | |LVOT Area: 4.15 cm2 | |LVOT Diam: 2.30 cm | |%FS: 26.49 % | |EF(Teich): 51.61 % | |ESV(Teich): 57.50 ml | |LVIDs: 3.68 cm | |SV(Teich): 61.33 ml | |RV Major: 6.98 cm | |RVIDd: 2.99 cm | |Ao Root: 3.12 cm | |Ao Diam SVals: 3.25 cm | |LVEF MOD A2C: 65.40 % | |SV MOD A2C: 44.82 ml | |LVEF MOD A4C: 63.91 % | |SV MOD A4C: 53.66 ml | |EF Biplane: 65.79 % | |LVEDV MOD BP: 79.54 ml | |LVESV MOD BP: 27.20 ml | |LVEDV MOD A2C: 68.54 ml | |LVLd A2C: 7.77 cm | |LVEDV MOD A4C: 83.96 ml | |LVLd A4C: 7.03 cm | |LVESV MOD A2C: 23.71 ml | |LVLs A2C: 6.62 cm | |LVESV MOD A4C: 30.29 ml | |LVLs A4C: 6.41 cm | |LAESV(A-L): 45.48 ml | |LAESV Index (A-L): 22.62 ml/m2 | |LAAs A2C: 14.95 cm2 | |LAESV A-L A2C: 41.13 ml | |LALs A2C: 4.61 cm | |LAAs A4C: 16.53 cm2 | |LAESV A-L A4C: 48.78 ml | |LALs A4C: 4.75 cm | |RAAs: 16.54 cm2 | |RAESV A-L: 45.86 ml | |RAESV MOD: 44.68 ml | |RALs: 5.06 cm | |TAPSE: 2.52 cm | |AV maxP.58 mmHg | |AV meanP.12 mmHg | |AV Vmax: 1.37 m/s | |AV Vmean: 0.95 m/s | |AV VTI: 22.79 cm | |MATILDA Vmax: 3.45 cm2 | |MATILDA (VTI): 3.82 cm2 | |LVOT maxP.23 mmHg | |LVOT meanP.74 mmHg | |LVSI Dopp: 43.38 ml/m2 | |LVSV Dopp: 87.19 ml | |LVOT Vmax: 1.14 m/s | |LVOT Vmean: 0.76 m/s | |LVOT VTI: 20.97 cm | |MV A Kenny: 0.64 m/s | |MV Dec Wilcox: 4.60 m/s2 | |MV DecT: 151.97 ms | |MV E Kenny: 0.70 m/s | |MV E/A Ratio: 1.09 | |MV PHT: 44.07 ms | |MVA By PHT: 4.99 cm2 | |Septal e': 0.06 m/s | |Septal E/e': 10.59 | |Lateral e': 0.06 m/s | |Lateral E/e': 10.09 | |S': 0.14 m/s | | | |Principal Cyber Engineer: | |Authenticated by: Pilo Ocampo MD | |Report Date/Time: 06-08-2017 21:35:18 | | | |IMPRESSION: | |1. This was a technically difficult study with suboptimal views. | |2. Overall left ventricular systolic function is normal with, an EF between 65 - 70 %. | |3. No regional wall motion abnormalities. | |4. The right ventricle is normal in size and systolic function. | + + documented in this encounter Visit Diagnoses Not on filedocumented in this encounter"
--- OUTSIDE RECORDS SUMMARY | ~2019-10-16 | XMS | Encounter Summary ---
Demographics + + + | Address | [address] | | | [place] [address] | + + + | Home Phone [...] [place], [place] | | | | | [address] | | + + + + + | Bebe Terrazas | ECON | Unknown | Unavailable | + + + + + | Arden Hammondi | ECON | Unknown | | + + + + + Care Team Providers + +------+ + | Care Campaign Fundraiser Name | Role | Phone | + +------+ + | Crissy Santoyo PA-C | PCP | | + +------+ + Encounter Details +--------+ + + + + | Date | Type | Department | Care Team | Description | +--------+ + + + + | 02/01/ | Results | [facility] | Jordan Calles, | | | 2011 | Only | [address] | MD [address] | | | | | [place], [place] | [place] [address] | | | | | [address] | [phone] | | | | | | | [...] + | X-RAY SPINE | Routin | 02/02/2012 | | Results for this | | LUMBOSACRAL 3 VIEWS | e | 10:21 AM | | procedure are in the | | | | PST | | results section. | + +--------+ + + + documented in this encounter Results X-RAY SPINE LUMBOSACRAL 3 VIEWS (02/02/2012 10:21 AM PST) + + | Specimen | + + | | + + + + + | Narrative | Performed At | + + + | LUMBAR SPINE; 2 VIEWS CLINICAL INFORMATION: Injury, with | [facility] | | pain. COMPARISON: 08/02/10. FINDINGS: There is mild | RADIOLOGY | | lumbar levoscoliosis. There has been L4 through S1 posterior fusion | | | with pedicle screw and camilo fixation as well as discectomies with bone | | | graft interposition. The hardware appears intact and bone graft | | | markers are unchanged. Spondylosis is moderate at L3-4 and mild | | | throughout the remainder of the lower thoracic and lumbar spine. There | | | have been L4 and L5 laminectomies. The symphysis pubis and sacroiliac | | | joints are preserved. IMPRESSION: 1. No acute | | | abnormalities. 2. Unchanged L4 through S1 fusion. | | | 3. Previous L4 and L5 laminectomies. 4. Mild lumbar | | | levoscoliosis. 5. Spondylosis that is moderate at L3-4 and | | | mild throughout the remainder of the lower thoracic and lumbar spine. | | + + + + + | Procedure Note | + + | Interface, Lab Results [place] - 10/24/2016 8:13 PM PDT LUMBAR SPINE; 2 | | VIEWSCLINICAL INFORMATION: Injury, with pain.COMPARISON: 08/02/10.FINDINGS: There is mild | | lumbar levoscoliosis. There has been L4 through S1 posterior fusion with pedicle screw | | and camilo fixation as well as discectomies with bone graft interposition. The hardware | | appears intact and bone graft markers are unchanged. Spondylosis is moderate at L3-4 and | | mild throughout the remainder of the lower thoracic and lumbar spine. There have been | | L4 and L5 laminectomies. The symphysis pubis and sacroiliac joints are | | preserved.IMPRESSION: 1. No acute abnormalities.2. Unchanged L4 through S1 fusion.3. | | Previous L4 and L5 laminectomies.4. Mild lumbar levoscoliosis.5. Spondylosis that is | | moderate at L3-4 and mild throughout the remainder of the lower thoracic and lumbar | | spine. | | | |FINDINGS: There is mild lumbar levoscoliosis. There has been L4 through S1 posterior fusion with pedicle screw and camilo fixation as well as discectomies with bone graft interposition. The hardware appears intact | |and bone graft markers are unchanged. Spondylosis is moderate at L3-4 and mild throughout t he remainder of the lower thoracic and lumbar spine. There have been L4 and L5 laminectomies . The symphysis pubis and sacroiliac joints are preserved. | | | | | | | |IMPRESSION: | | | |1. No acute abnormalities. | | | | | | | |2. Unchanged L4 through S1 fusion. | | | | | | | |3. Previous L4 and L5 laminectomies. | | | | | | | |4. Mild lumbar levoscoliosis. | | | | | | | |5. Spondylosis that is moderate at L3-4 and mild throughout the remainder of the lower thor acic and lumbar spine. | + + + + + + + | Performing | Address | City/State/Zipcode | Phone Number | | Organization | | | | + + + + + | [facility] | [address] | [place] | [phone] | | | | [address] | | + + + + + documented in this encounter Visit Diagnoses Not on filedocumented in this encounter"
--- OUTSIDE RECORDS SUMMARY | ~2019-10-16 | XMS | Encounter Summary ---
Demographics + + + | Address | [address] | | | [place] [address] | + + + | Home Phone | | + + + | Preferred Language | Unknown | + + + | Marital Status | | + + + | Advent Affiliation | PRE | + + + | Race | White | + + + | Ethnic Group | Not or | + + + Author + + + | Author | [facility] | + + + | Organization | [facility] | + + + | [...] [place] | | | | | [address] | | + + + + + | Bebe Terrazas | ECON | Unknown | Unavailable | + + + + + | Arden Terrazas | ECON | Unknown | | + + + + + Care Team Providers + +------+ + | Care Food Service Aide Name | Role | Phone | + +------+ + | Yuriy Cardenas PA-C | PCP | | + +------+ + Encounter Details +--------+ + + + + | Date | Type | Department | Care Team | Description | +--------+ + + + + | 07/17/ | Telephone | [facility] Primary [facility] | Yuriy Cardenas, | | | 2018 | | at [place] [address] | PA-C [address] | | | | [address] | [address] | | | | | [facility] [place], [place] | [place], [place] | | | | | [address] | [address] | | | | | [phone] | [phone] | | | | | | | [...]
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
--- OUTSIDE RECORDS SUMMARY | ~2019-10-16 | XMS | Encounter Summary ---
Demographics + + + | Address | [address] | | | [place] [address] | + + + | Home Phone [...] [place] | | | | | [address] | | + + + + + | Bebe Terrazas | ECON | Unknown | Unavailable | + + + + + | Arden Terrazas | ECON | Unknown | | + + + + + Care Team Providers + +------+ + | Care Carrier Driver Name | Role | Phone | + +------+ + | Yuriy Cardenas PA-C | PCP | | + +------+ + Reason for Visit Diagnostic Testing (Routine) + +--------+ + + + + | Status | Reason | Specialty | Diagnoses / | Referred By | Referred To | | | | | Procedures | Contact | Contact | + +--------+ + + + + | Canceled | | Radiology | Diagnoses | Ronald, | | | | | | Non-small | Yuriy Mcgill PA-C | | | | | | cell cancer | [address] | | | | | | of left lung | [facility] | | | | | | (HCC) | Rd | | | | | | Procedures | [place], | | | | | | CT CHEST [address] | [place] | | | | | | CONTRAST | [address] | | | | | | | Phone: | | | | | | | [phone] | | | | | | | Fax: | | | | | | | [phone] | | + +--------+ + + + + Encounter Details +--------+ + + + + | Date | Type | Department | Care Team | Description | +--------+ + + + + | 07/07/ | Hospital | Diagnostic Imaging | Yuriy Cardenas, | Canceled (Scheduling | | 2019 | Encounter | Services at [facility] | [place] [address] | error) | | | | [address] | [place] [address] | | | | | [address] [facility] | [place], [place] | | | | | [facility], 10th Floor | [address] | | | | | [place], [place] | [phone] | | | | | [address] | | | | | | [phone] | | | +--------+ + + + [...] + + + +---------+ + + | Blood-Glucose | Use for checking BG | 1 each | 0 | 01/25/20 | | | Meter misc | 3x daily | | | 19 | | + + + +---------+ + + | insulin aspart | Inject 0-15 Units | 42 mL | 3 | 05/10/19 | | | U-100 100 unit/mL | under the skin | | | 19 | | | subcutaneous insulin | (SUBC) three times | | | | | | penIndications: | daily before meals. | | | | | | Type 2 diabetes | Up to 45 units total | | | | | | mellitus with | daily per sliding | | | | | | diabetic | scale. 90d Rx | | | | | | polyneuropathy, with | | | | | | | long-term current | | | | | | | use of insulin (HCC) | | | | | | + + + +---------+ + + | Insulin | Use for injecting | 500 | 3 | 06/11/19 | | | Syringe-Needle U-100 | insulin 5 times | each | | 19 | | | 1 mL 31 gauge x | daily | | | | | | 07/17 | | | | | | | [...] (HCC) | | | | | | + + + +---------+ + + | Miscellaneous | DME: oxygen | 1 each | 0 | 03/28/19 | | | Medical Supply | saturation monitor, | | | 19 | | | miscIndications: | for monitoring | | | | | | Type 2 diabetes | regularly, on | | | | | | mellitus without | oxygenSize (if | | | | | | complication, with | applicable): n/a | | | | | | long-term current | | | | | | | use of insulin ([facility]) | | | | | | + + + +---------+ + + | nitroglycerin 0.4 | Place 1 tablet under | 25 | 3 | 06/10/19 | | | mg sublingual | tongue as needed | tablet | | 19 | | | tablet, | for chest pain. 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
--- OUTSIDE RECORDS SUMMARY | ~2019-10-16 | XMS | Encounter Summary ---
Demographics + + + | Address | [address] | | | [place] [address] | + + + | Home Phone [...] + + + | Author | [facility] | + + + | Organization | [facility] | + + + [...] #[address] | | | | | [address] | | + + + + + | Bebe Terrazas | ECON | Unknown | Unavailable | + + + + + | Arden Nini | ECON | Unknown | | + + + + + Care Team Providers + +------+ + | Care College Coach Name | Role | Phone | + +------+ + | Zora Haddad DO | PCP | | + +------+ + Reason for Visit + + + | Reason | Comments | + + + | Medication | | + + + Encounter Details +--------+ + + + + | Date | Type | Department | Care Team | Description | +--------+ + + + + | 02/11/ | Telephone | Neurosurgery [address] | [place], | Medication | | 2012 | | [address] | [place] | | | | | Physician's | [address] | | | | | [place], [address]nd floor | [place], [place] | | | | | [place], [place] | [address] | | | | | [address] | [phone] | | | | | [phone] | | | +--------+ + + + [...]
--- OUTSIDE RECORDS SUMMARY | ~2019-10-16 | XMS | Encounter Summary ---
Demographics + + + | Address | [address] | | | [place] [address] | + + + | Home Phone | | + + + | Preferred Language | Unknown | + + + | Marital Status | | + + + | Sikhism Affiliation | PRE | + + + | Race | White | + + + | Ethnic Group | Not or | + + + Author + + + | Author | [facility] | + + + | Organization | [facility] | + + + | Address [...] #[address] [place] | | | | | [address] | | + + + + + | Bebe Terrazas | ECON | Unknown | Unavailable | + + + + + | Arden Terrazas | ECON | Unknown | | + + + + + Care Team Providers + +------+ + | Care Top Flavor Attendant Name | Role | Phone | + +------+ + | Zora Haddad DO | PCP | | + +------+ + Reason for Referral PROC - Dept/Practice Procedure (Routine) +--------+--------+ + + + + | Status | Reason | Specialty | Diagnoses / | Referred By | Referred To | | | | | Procedures | Contact | Contact | +--------+--------+ + + + + | Closed | | Pain | Diagnoses | Bullock, | Jane, | | | | Management | Lumbar | Annita Edwards, | MD Yoselyn | | | | | post-laminec | PA [address] | [address] | | | | | chris | [address] | Perez Noel | | | | | syndrome | [place], [place] | Rd [place], | | | | | Lumbar | [address] | [place] | | | | | radiculopath | Phone: | [phone] | | | | | y Disorder | [phone] | Phone: | | | | | of SI | Fax: | [phone] | | | | | (sacroiliac) | [phone] | Fax: | | | | | joint | | [phone] | | | | | Procedures | | | | | | | REQUEST TO | | | | | | | SURGERY | | | | | | | STOCK LIFTER | | | | | | | [place] INJ, | | | | | | | SACROILIAC | | | | | | | JOINT | | | | | | | W/IMAGE | | | | | | | GUIDE | | | | | | | INCLUDE | | | | | | | ARTHROGRAPHY | | | | | | | [place] INJ | | | | | | | FOR | | | | | | | SACROILIAC | | | | | | | JT ANESTH | | | | | | | [place] MD CS/SM | | | | | | | PHYS,5 YRS+ | | | | | | | [place] MD CS/SM | | | | | | | PHY ADD-ON | | | | | | | Right SI | | | | | | | Joint | | | | | | | Injection | | | +--------+--------+ + + + + Reason for Visit + + + | Reason | Comments | + + + | Low back pain | | + + + | Hip pain | | + + + Consultation (Routine) +--------+--------+ + + + + | Status | Reason | Specialty | Diagnoses / | Referred By | Referred To | | | | | Procedures | Contact | Contact | +--------+--------+ + + + + | Closed | | Pain | Diagnoses | Kobe, | Tesfaye, | | | | Management | Lumbar | Annita Edwards, | Barbara Fuentes, LEANNE | | | | | radiculopath | PA [address] | [address] | | | | | y | [address] | [address] | | | | | Procedures | [place], [place] | [place] | | | | | CONSULT TO | [address] | [address] | | | | | PAIN CENTER | Phone: | | | | | | | [phone] | | | | | | | Fax: | | | | | | | [phone] | | +--------+--------+ + + + + Encounter Details +--------+---------+ + + + | Date | Type | Department | Care Team | Description | +--------+---------+ + + + | 04/16/ | Office | [facility] | Barbara Carlin, | Lumbar | | 2013 | Visit | Pain Center at | ANP | post-laminectomy | | | | [facility] | | syndrome (Primary | | | | [address] | | Dx); Lumbar | [facility] | | radiculopathy; | | | | and Healing, | | Disorder of SI | | | | | | (sacroiliac) joint | | | | Floor [place], [place] | | | | | | [address] | | | | | | [phone] | | | +--------+---------+ + + + [...] + + + | Blood Pressure | 144/92 | 04/16/2013 11:42 AM | | | | | PST | | + + + + + | Pulse | 116 | 04/16/2013 11:42 AM | | | | | PST | | + + + + + | Temperature | 37.1 C (98.7 F) | 04/16/2013 11:42 AM | | | | | PST | | + + + + + | Respiratory Rate | 18 | 04/16/2013 11:42 AM | | | | | PST | | + + + + + | Oxygen Saturation | 96% | 04/16/2013 11:42 AM | | | | | PST | | + + + + + | Inhaled Oxygen | - | - | | | Concentration | | | | + + + + + | Weight | 100.7 kg (222 lb) | 04/16/2013 11:42 AM | | | | | PST | | + + + + + | Height | 167.6 cm (5' 6") | 04/16/2013 11:42 AM | | | | | PST | | + + + + + | Body Mass Index | 35.83 | 04/16/2013 11:42 AM | | | | | PST | | + + + + + documented in this encounter Patient Instructions Patient Instructions Saurabh Rosales MD - 04/16/2013 12:46 PM PSTThank you for taking the time to see us in the [facility] today. Below is a short summary of what we discussed today for your reference: 1. Consider water Aerobics or pool therapy for help increasing exercise and activity level. We discussed arthritis foundation community exercise programs including aquatic therapy. T here are several in the area with sliding scales for payment. The Arthritis Foundation has a list of resources for [place] and [facility]: http://www.arthritis.org/media/chapters/wak/[place]/Cwaxcyyb_Mmvw_57-29-66.pdf http://www.arthritis.org/chapters/[facility] issaquah/pxnquqewn-hma-whdgll-with-arthritis.php 2. Please start physical therapy as ordered 3. Continue tapering Oxycodone. 4. Try increasing Gabapentin slowly. Prescription written for 100 mg capsules to facilita te this given extreme sensitivity to any increase in dose by 300 mg increments. 5. Try the Lidoderm patches on her left low back. 6. Right SI Joint Injection - ORDER PLACED 7. Follow up for procedure, then with Barbara Carlin. [facility] Pre-Procedure Instructions: The procedure you discussed with your doctor is called: Sacroiliac Joint Injection. Please make sure this is scheduled with the Design Technician. Please bring a stake driver with you. We may give you medications that make you drowsy or otherw ise unsafe to drive. If you do not have a stake driver, we will not be able to do your procedure. DO NOT EAT ANYTHING AFTER MIDNIGHT If your appointment is after 1 PM , you may have a very light, low fat breakfast, such as h javier a piece of dry toast or a small bowl of plain oatmeal. Keep liquids to a minimum for 6 hours before the procedure. Clear liquids are allowed: 1 o f the selections below only * Water (1/4 cup) OR * Clear juices ( apple, cranberry, no pulp orange juice) 1/4 cup only OR * 2 oz ( 1/4 cup) coffee with sugar (NO CREAM) OR * Jello ( 1/4 cup) Take ALL regularly scheduled medications with small sips of water. If you are currently taking any anti-coagulant medications (blood thinners), such as Aspiri n, Coumadin, Plavix, Heparin, Low Molecular Heparin (Lovenox), PLEASE inform the Procedure P jeanine TODAY. PLEASE CONTACT THE [facility] AT [phone] ([phone]) FOR QUESTIONS OR IF YOU NEED TO CANCEL YOUR APPOINTMENT. [facility] documented in this encounter Progress Notes Yoselyn Sahu MD - 04/27/2013 11:31 AM PSTI participated in the evaluation of this patient, and was present for the entire procedure. I edited the trainee's note. YOSELYN SAHU MD [facility] [address] [place] [address] & [facility], 4th Floor Mail Code: [id number], [place] [address] Saurabh Flores MD - 12:09 PM PST [facility] Return Visit with Dr. Sahu Date of Visit: 04/16/2013 Nancy Terrazas; ; : 1970 Chief Complaint Patient presents with Low back pain Hip pain History of Present Illness: Ms. Terrazas was last seen by Barbara Carlin on 02/19/2013. At that time, the assessment and paul n was (text in italics is copied and pasted from last visit note): Madalyn is here today with her for pain consult evaluation. She is post-op L3-4 left ex treme lateral interbody fusion, bilateral L3-4 foraminotomies, L3-S1 revision posterior inst rumented fusion 12/23/2012. Dr. Tanner is continuing to provide her opioid therapy prescript ions during Madalyn's post-surgical period. We discussed the typical post-spine surgery recovery period of 8-12 weeks of bone and tissue healing, in addition to one to two year healing kurt edwards before we know what her baseline physical [...] dose is 150 - 600 mg/day. The d ose can be adjusted upwards every 3 - [...] Nutrition: I recommend you meet with a construction or leak gang laborer for dietary advice for weight loss a nd diabetes control. Getting your weight down even 20 lbs would help you back pain considera jonny. It would also help keep your diabetes under control and help your heart health. I recommend starting acetyl-L carnitine 1,000 mg twice a day. This is an amino acid supplem ent that can help nerve health and can improve peripheral nerve pain. It is an gbvr-mrr-uklk ter supplement. 4. Mental health counseling: Madalyn [...] six weeks. Call or check in by Kenat if you have any ques tions. I suggested the book, Managing Pain Before It Manages You, by Pat Dent M.D., Ph.D. This is an excellent self-help book with numerous appropriate suggestions for chronic pain patients. She is here today for a follow up regarding the issues noted above. She has been treated a t the [facility] with the following problem list:: Patient Active Problem List Diagnosis Date Noted Lumbar post-laminectomy syndrome 02/27/2013 Lumbar radiculopathy 12/22/2012 Ms. Terrazas completed the Brief Pain Inventory and a pain drawing which I reviewed. [facility] Brief Pain Inventory: (ten= worst possible pain or complete interference) Right Now: 6 (04/16/131153) Least in 24 hours: 3 (04/16/131153) Worst in 24 hours: 8 (04/16/131153) Average: 5 (04/16/131153) % Relief (med/treat): 70 (04/16/131153) General Activity: 7 (04/16/131153) Mood: 4 (04/16/131153) Walking Ability: 6 (04/16/131153) Normal Work: 6 (04/16/131153) Relations with Others: 3 (04/16/13 115) Enjoyment of Life: 7 (04/16/131153) Sexual Activity: 7 (04/16/131153) Sleep: 7 (04/16/131153) Since her last visit, she has seen neurosurgery - they have no concerns and think things ar e healing well. CT reviewed - SACROILIAC JOINTS: There are vacuum phenomena is noted along with left greater than right, mild degenerative c hange. Cramping in legs is much better - now only occuring only 3x/week, previously was constant. This is on the medial aspect of upper legs and posterior calves. Low pain back is also somewhat better - it no longer radiates down but stops in the hip are a. Still some superficial pain from the incisions. Ms. Terrazas has been trying to increase her endurance with walking since her last visit - sta deejay that she walks ~1.5 blocks per days. Back pain is what stops her from walking more. Sitting in a recliner with her heating pad is helpful for her pain. She also occasionally uses a hot tub. Ms. Terrazas had car problems that prevented her from attending physical therapy, but she plan s to start this soon. Ms. Terrazas is still taking Gabapentin 300 mg at night only. Any attempts to increase have c ased sedation. She has stopped Duloxetine completely, as it made her feel like she was drun k. Ms. Terrazas has been tapering down on the Oxycodone - she is down from 6/day to 3/day. She reports no other change in past medical history, past surgical history, family history, or social history since last visit. Past Medical History Diagnosis Date Obesity Lumbar [...] Date Lumbar fusion 03/2010&12/24/12 L3-S1 Endometrial ablation 2002 Breast reduction surgery Sinus surgery Cholecystectomy Lithotripsy Cervical conization Tubal ligation Family History Problem Relation Hypertension Mother Asthma Mother Arthritis Mother Depression Mother Asthma Sister Depression Sister Asthma Grandmother Arthritis Grandmother Depression Grandmother Heart Disease Grandmother Allergies Father Allergies Sister Arthritis Father Arthritis Maternal Grandmother Blood Disease Sister Diabetes Mother Heart Disease Mother Heart Disease Maternal Grandmother Hypertension Maternal Grandmother Thyroid Mother History Substance Use Topics Smoking status: Former Smoker -- 0.50 packs/day for 20 years Types: Cigarettes Quit date: 08/19/2012 Smokeless tobacco: Never Used Alcohol Use: No Current Outpatient Prescriptions Medication Sig ALBUTEROL INHL [...] mouth two times daily. oxyCODONE, immediate release, 5 mg oral tablet Take 4 tablets by mouth every 8 hours as needed for severe pain. tiZANidine 2 mg oral tablet Take 1 tablet by mouth every twelve hours as needed (muscle spasms). Max: 36 mg / day. No current facility-administered medications for this visit. Allergies Allergen Reactions Codeine Vomiting Morphine Vomiting Sulfa (Sulfonamide Antibiotics) Nausea The Review of Systems obtained by the CRIME SCENE INVESTIGATOR was reviewed. Additional Review of Systems: Bones, Joints, and Muscles: joint pain, muscle pain, stiffness and swelling Gastrointestinal System: negative Genitourinary System: negative If yes, plan: Urinary Incontinence Present: no Nervous System: numbness, vertigo and headache Psychiatric History: sleep disturbance and anxiety PE: BP 144/92 | Pulse 116 | Temp (Src) 37.1 C (98.7 F) (Oral) | RR 18 | Ht 1.676 m (5' 6") | Wt 100.699 kg (222 lb) | SpO2 96% | BMI 35.85 kg/(m^2) Appears healthy. Alert; in no acute distress. Pleasant. Oriented , interactive. Ambulates without restrictions. Tenderness to palpation in her right PSIS area. Assessment: 722.83 Lumbar post-laminectomy syndrome 724.4 Lumbar radiculopathy Ms. Terrazas is a 42 year old female who is following up with Dr. Sahu at the [facility] today for lo w back and leg pain as described above. Everything is slowly improving - her back pain is b othering her most, but her leg pain is much better. She has tapered down on her Oxycodone a nd plans to continue this. She is taking Gabapentin only at night. We discussed Pregabalin , but she perceives benefit from the low dose Gabapentin and is not interested in changing a t this time. I offered her a smaller size tablet to aid in dose increases. We discussed ph ysical therapy and increased exercise as recommended at the last visit. I prescribed a lido ricky patch for her focal right low back pain. 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 Plan: 1. Consider water Aerobics or pool therapy for help increasing exercise and activity level. We discussed arthritis foundation community exercise programs including aquatic therapy. T here are several in the area with sliding scales for payment. The Arthritis Foundation has a list of resources for [place] and [facility]: http://www.arthritis.org/media/chapters/wak/[place]/Xnugerwi_Couy_17-45-83.pdf http://www.arthritis.org/chapters/[facility] issaquah/euxdioknq-egf-cthhfp-with-arthritis.php 2. Please start physical therapy as ordered 3. Continue tapering Oxycodone. 4. Try increasing Gabapentin slowly. Prescription written for 100 mg capsules to facilita te this given extreme sensitivity to any increase in dose by 300 mg increments. 5. Try the Lidoderm patches on her left low back. 6. Right SI Joint Injection - ORDER PLACED 7. Follow up for procedure, then with Barbara Carlin. Saurabh Rosales MD PGY-5, Pain Management Fellow [facility] Harley Saldivar MA - 04/16/2013 11:53 AM PSTCMA History: 1. Has your pain changed from your last visit? no change in back , Decrease in legs 2. Do your medications cause any side effects? YES 3. Have you had physical therapy appointments since your last visit? NO 4. Have you had psychology appointments since your last visit? NO 5. Have you had any diagnostic studies since your last appointment? YES 6. Do you require any medication refills today? YES ROS:. 1. BONES, JOINTS AND MUSCLES joint pain, muscle pain, stiffness and swelling 2. GASTROINTESTINAL SYSTEM negative 3. GENITOURINARY SYSTEM negative 4. NERVOUS SYSTEM numbness, vertigo and headache 5. PSYCHIATRIC HISTORY sleep disturbance and anxiety documented in this enco unter Plan of Treatment Not on filedocumented as of this encounter Visit Diagnoses + + | Diagnosis | + + | Lumbar post-laminectomy syndrome - Primary Postlaminectomy syndrome, lumbar region | + + | Lumbar radiculopathy Thoracic or lumbosacral neuritis or radiculitis, unspecified | + + | Disorder of SI (sacroiliac) joint Disorders of sacrum | + + documented in this encounter
--- OUTSIDE RECORDS SUMMARY | ~2019-10-16 | XMS | Encounter Summary ---
Demographics + + + | Address | [address] | | | [place] [address] | + + + | Home Phone [...] [address], [place] | | | | | [address] | | + + + + + | Bebe Terrazas | ECON | Unknown | Unavailable | + + + + + | Arden Hammondi | ECON | Unknown | | + + + + + Care Team Providers + +------+ + | Care Flooring Installer Name | Role | Phone | + +------+ + | Crissy Santoyo PA-C | PCP | | + +------+ + Encounter Details +--------+ + + + + | Date | Type | Department | Care Team | Description | +--------+ + + + + | 06/27/ | Results | [facility] | Abdias Barger MD | | | 2012 | Only | [address] | [address] [facility] | | | | | [place], [place] | [address] [place], | | | | | [address] | [place] [address] | | | | | | [phone] | | | | | | | [...] + +--------+ + + + | X-RAY CHEST 2 VIEW | Routin | 06/27/2012 | | Results for this | | | e | 1:07 PM | | procedure are in the | | | | PDT | | results section. | + +--------+ + + + | URINALYSIS CULTURE & | Routin | 06/27/2012 | | Results for this | | SENSITIVITY IF | e | 12:17 PM | | procedure are in the | | INDICATED | | PDT | | results section. | + +--------+ + + + | INR | Routin | 06/27/2012 | | Results for this | | | e | 12:17 PM | | procedure are in the | | | | PDT | | results section. | + +--------+ + + + | CBC, WITH | Routin | 06/27/2012 | | Results for this | | DIFFERENTIAL | e | 12:17 PM | | procedure are in the | | | | PDT | | results section. | + +--------+ + + + | BASIC METABOLIC SET | Routin | 06/27/2012 | | Results for this | | (NA, K, CL, TCO2, | e | 12:17 PM | | procedure are in the | | BUN, CR, GLU, CA) | | PDT | | results section. | + +--------+ + + + | APTT (ACT. PART. | Routin | 06/27/2012 | | Results for this | | THROMBO TIME) | e | 12:17 PM | | procedure are in the | | | | PDT | | results section. | + +--------+ + + + documented in this encounter Results X-RAY CHEST 2 VIEW (06/27/2012 1:07 PM PDT) + + | Specimen | + + | | + + + + + | Narrative | Performed At | + + + | CHEST 2 VIEWS COMPARISON: 03/14/10. CLINICAL | [facility] | | INFORMATION: Preoperative evaluation for lumbar spine surgery. | RADIOLOGY | | FINDINGS: The lungs are clear. The cardiomediastinal silhouette, | | | gaby and pulmonary vascularity are within normal limits. The | | | visualized osseous structures are intact. There is mild thoracic | | | spondylosis. IMPRESSION: Negative chest. | | + + + + + | Procedure Note | + + | Interface, Lab Results [facility] - 10/25/2016 4:37 PM PDT CHEST 2 VIEWSCOMPARISON: | | 03/14/10.CLINICAL INFORMATION: Preoperative evaluation for lumbar spine surgery.FINDINGS: | | The lungs are clear. The cardiomediastinal silhouette, gaby and pulmonary vascularity | | are within normal limits. The visualized osseous structures are intact. There is mild | | thoracic spondylosis.IMPRESSION: Negative chest. | | | | | | | |CLINICAL INFORMATION: Preoperative evaluation for lumbar spine surgery. | | | | | | | |FINDINGS: The lungs are clear. The cardiomediastinal silhouette, gaby and pulmonary vascula rity are within normal limits. The visualized osseous structures are intact. There is mild t horacic spondylosis. | | | | | | | |IMPRESSION: Negative chest. | + + + + + + + | Performing | Address | City/State/Zipcode | Phone Number | | Organization | | | | + + + + + | [facility] | [address] | [place] | [phone] | | | | [address] | | + + + + + BASIC METABOLIC SET (NA, K, CL, TCO2, BUN, CR, GLU, CA) (06/27/2012 12:17 PM PDT) + +---------+ + + + | Component | Value | Ref Range | Performed | Pathologist | | | | | At | Signature | + +---------+ + + + | GLUCOSE, | 180 (H) | 70 - 100 mg/dL | [facility] | | | SERUM | | | [facility] | | + +---------+ + + + | UREA | 12 | 7 - 22 mg/dL | [facility] | | | NITROGEN, | | | [facility] | | | SERUM | | | | | + +---------+ + + + | CREATININE | 0.5 | 0.5 - 1.2 mg/dL | [facility] | | | SERUM | | | [facility] | | + +---------+ + + + | BUN/CREATIN | 24 | 8 - 25 ratio | [facility] | | | INE RATIO | | | [facility] | | + +---------+ + + + | EGFR | >60 | >=60 | [facility] | | | - | | mL/min/1.73m2 | [facility] | | | PRYDEINIG | | | | | + +---------+ + + + | EGFR NON | >60 | >=60 | [facility] | | | -RADHA | | mL/min/1.73m2 | [facility] | | | RICAN | | | | | + +---------+ + + + | SODIUM | 136 | 135 - 145 mEq/L | [facility] | | | | | | [facility] | | + +---------+ + + + | POTASSIUM | 4.0 | 3.4 - 5.0 mEq/L | [facility] | | | | | | [facility] | | + +---------+ + + + | CHLORIDE | 103 | 98 - 110 mEq/L | [facility] | | | | | | [facility] | | + +---------+ + + + | CO2 | 26 | 23 - 33 mEq/L | [facility] | | | | | | [facility] | | + +---------+ + + + | CALCIUM, | 9.7 | 8.5 - 10.5 | [facility] | | | SERUM | | mg/dL | [facility] | | + +---------+ + + + + + | Specimen | + + | | + + + + + + + | Performing | Address | City/State/Zipcode | Phone Number | | Organization | | | | + + + + + | [facility] | [address] | [place], [place] | | | LAB | | [id number] | | + + + + + | [facility] | [address] | [place], [place] | | | LAB | | [id number] | | + + + + + URINALYSIS CULTURE & SENSITIVITY IF INDICATED (06/27/2012 12:17 PM PDT) + + + + + + | Component | Value | Ref Range | Performed | Pathologist | | | | | At | Signature | + + + + + + | CC/CATH? | Non-Cath | | [facility] | | | | | | [facility] | | + + + + + + | COLOR(UR) | Straw | | [facility] | | | | | | [facility] | | + + + + + + | APPEARANCE | Clear | | [facility] | | | | | | [facility] | | + + + + + + | GLUCOSE(UR) | 150 (A) | Neg mg/dL | [facility] | | | | | [...] + + + + | SPECIFIC | 1.007 | 1.003 - 1.029 | [facility] | | | GRAVITY | | | [facility] | | + + + + + + | BLOOD | Neg | Neg | [facility] | | | | | | [facility] | | + + + + + + | PH(UR) | 5.0 | 5.0 - 9.0 | [facility] | | | | | | [facility] | | + + + + + + | PROTEIN(LAB | Neg | Neg | [facility] | | | ) | [...] + + + | WHITE CELLS | 1 | 0 - 5 /HPF | [facility] | | | | | | [facility] | | + + + + + + | RED CELLS | <1 | 0 - 5 /HPF | [facility] | | | | | | [facility] | | + + + + + + | SQUAMOUS | 33 | /LPF | [facility] | | | [...] [place] | | | LAB | | [id number] | | + + + + + | [facility] | [address] | [place], [place] | | | LAB | | [id number] | | + + + + + CBC, WITH DIFFERENTIAL (06/27/2012 12:17 PM PDT) + + + + + + | Component | Value | Ref Range | Performed | Pathologist | | | | | At | Signature | + + + + + + | WHITE CELL | 9.3 | 4.5 - 10.5 | [facility] | | | COUNT | | x10(3)/mcL | [facility] | | + + + + + + | RED CELL | 4.75 | 4.20 - 5.40 | [facility] | | | COUNT | | x10(6)/mcL | [facility] | | + + + + + + | HEMOGLOBIN | 14.3 | 12.0 - 16.0 | [facility] | | | | | gm/dL | [facility] | | + + + + + + | HEMATOCRIT | 42.2 | 37.0 - 47.0 % | [facility] | | | | | | [facility] | | + + + + + + | MCV | 88.8 | 80.0 - 100.0 fL | [facility] | | | | | | [facility] | | + + + + + + | MCH | 30.1 | 27.0 - 34.0 pg | [facility] | | | | | | [facility] | | + + + + + + | MCHC | 33.8 | 32.0 - 36.0 | [facility] | | | | | gm/dL | [facility] | | + + + + + + | RDW | 13.2 | 11.5 - 14.5 % | [facility] | | | | | | [facility] | | + + + + + + | PLATELET | 279 | 150 - 400 | [facility] | | | COUNT | | x10(3)/mcL | [facility] | | + + + + + + | MPV | 9.5 | 7.4 - 10.4 fL | [facility] | | | | | | [facility] | | + + + + + + | NEUTROPHIL | 51.2 | 40.2 - 78.0 % | [facility] | | | % | | | [facility] | | + + + + + + | LYMPHOCYTE | 30.8 | 15.5 - 49.1 % | [facility] | | | % | | | [facility] | | + + + + + + | MONOCYTE % | 10.7 (H) | 1.7 - 8.9 % | [facility] | | | | | | [facility] | | + + + + + + | EOS % | 7.0 (H) | 0.0 - 5.2 % | [facility] | | | | | | [facility] | | + + + + + + | BASO % | 0.3 | 0.0 - 2.0 % | [facility] | | | | | | [facility] | | + + + + + + | NEUTROPHIL | 4.8 | 0.9 - 7.7 | [facility] | | | # | | x10(3)/mcL | [facility] | | + + + + + + | LYMPHOCYTE | 2.9 | 1.0 - 3.4 | [facility] | | | # | | x10(3)/mcL | [facility] | | + + + + + + | MONOCYTE # | 1.0 (H) | 0.1 - 0.6 | [facility] | | | | | x10(3)/mcL | [facility] | | + + + + + + | EOS # | 0.6 (H) | 0.0 - 0.4 | [facility] | | | | | x10(3)/mcL | [facility] | | + + + + + + | BASO # | 0.0 | 0.0 - 0.2 | [facility] | | | | | x10(3)/mcL | [facility] | | + + + + + + | DIFFERENTIA | No | | [facility] | | | L? | | | [facility] | | + + + + + + + + | Specimen | + + | | + + + + + + + | Performing | Address | City/State/Zipcode | Phone Number | | Organization | | | | + + + + + | [facility] | [address] | [place], [place] | | | LAB | | [id number] | | + + + + + | [facility] | [address] | [place], [place] | | | LAB | | [address] | | + + + + + APTT (ACT. PART. THROMBO TIME) (06/27/2012 12:17 PM PDT) + +-------+ + + + | Component | Value | Ref Range | Performed | Pathologist | | | | | At | Signature | + +-------+ + + + | APTT | 25.1 | 24.2 - 35.2 | [facility] | | | | | second(s) | [facility] | | + +-------+ + + + + + | Specimen | + + | | + + + + + + + | Performing | Address | City/State/Zipcode | Phone Number | | Organization | | | | + + + + + | [facility] | [address] | [place], [place] | | | LAB | | [address] | | + + + + + | [facility] | [address] | [place], [place] | | | LAB | | [address] | | + + + + + INR (06/27/2012 12:17 PM PDT) + + + + + + | Component | Value | Ref Range | Performed | Pathologist | | | | | At | Signature | + + + + + + | PROTHROMBIN | 12.1 | 11.7 - 14.1 | [facility] | | | TIME | | second(s) | [facility] | | + + + + + + | INR | 0.9Comment: Recommended | | [facility] | | | [...] [place] | | | LAB | | [address] | | + + + + + | [facility] | [address] | [place] | | | LAB | | [address] | | + + + + + documented in this encounter Visit Diagnoses Not on filedocumented in this encounter"
--- OUTSIDE RECORDS SUMMARY | ~2019-10-16 | XMS | Clinical Summary ---
Demographics + + + | Address | [address] | | | [place] [address] | + + + | Home Phone | | + + + | Preferred Language | Unknown | + + + | Marital Status | | + + + | Episcopal Affiliation | 1013 | + + + | Race | Unknown | + + + | Ethnic Group | Unknown | + + + Author + + + | Author | [facility] | | | and [place] | + + + | Organization | [facility] | | | and [place] | + + + | Address | Unknown | + + + | Phone | Unavailable | + + + Support + + + + + | Name | Relationship | Address | Phone | + + + + + | Dustin Terrazas | ECON | [place] | | | | | [address] | | + + + + + | Bebe Terrazas | ECON | [address] | | | | | [place], [place] | | | | | [address] | | + + + + + Care Team Providers + +------+ + | Care Tape Calender Name | Role | Phone | + +------+ + | Ki Senior NP | PCP | | + +------+ + Allergies + + + + + + | Active Allergy | Reactions | Severity | Noted | Comments | | | | | Date | | + + + + + + | Codeine | | | 02/14/20 | | | | | | 17 | | + + + + + + | Latex | Sensitivity, Hives, | High | 04/25/19 | Blisters | | | Shortness Of Breath | | 15 | Blisters | + + + + + + | Lisinopril | Cough | Low | 03/13/19 | | | | | | 18 | | + + + + + + | Morphine | Nausea And Vomiting | Low | 10/31/19 | | | | | | 13 | | + + + + + + | Sulfa Antibiotics | Nausea And Vomiting | Low | 01/21/20 | | | | | | 12 | | + + + + + + Medications + + + +---------+------+------+-------+ | Medication | Sig | Dispensed | Refills | Star | End | Statu | | | | | | t | Date | s | | | | | | Date | | | + + + +---------+------+------+-------+ | insulin aspart | Inject 28 Units | | 0 | | | Activ | | (NOVOLOG) 100 | under the skin 3 | | | | | e | | units/mL injection | times daily (before | | | | | | | | meals). | | | | | | + + + +---------+------+------+-------+ | insulin detemir | Inject 32 Units | | 0 | | | Activ | | (LEVEMIR) 100 | under the skin 2 | | | | | e | | units/mL injection | times daily. | | | | | | | (vial) | | | | | | | + + + +---------+------+------+-------+ | tiZANidine | Take 4 mg by mouth 3 | | 0 | | | Activ | | (ZANAFLEX) 4 mg | times daily as | | | | | e | | tablet | needed for Muscle | | | | | | | | spasms. | | | | | | + + + +---------+------+------+-------+ | aspirin 81 mg EC | Take 81 mg by mouth | | 0 | | | Activ | | tablet | Daily. | | | | | e | + + + +---------+------+------+-------+ | oxyCODONE 10 MG | Take 10 mg by mouth | | 0 | | | Activ | | TABS | every 6 hours as | | | | | e | | | needed for Pain. | | | | | | + + + +---------+------+------+-------+ | carvedilol (COREG) | Take 1 tablet by | 60 | 1 | 12/1 | | Activ | | 3.125 mg tablet | mouth 2 times daily | tablet | | 5/20 | | e | | | (with breakfast & | | | 17 | | | | | dinner). | | | | | | + + + +---------+------+------+-------+ | clopidogrel | Take 1 tablet by | 30 | 0 | 12/1 | | Activ | | (PLAVIX) 75 mg | mouth Daily. | tablet | | 6/20 | | e | | tablet | | | | 17 | | | + + + +---------+------+------+-------+ | lisinopril | Take 1 tablet by | 30 | 1 | 12/1 | | Activ | | (PRINIVIL,ZESTRIL) | mouth Daily. | tablet | | 6/20 | | e | | 2.5 MG tablet | | | | 17 | | | + + + +---------+------+------+-------+ | nitroglycerin | Place 1 tablet under [...] | | + + + +---------+------+------+-------+ | atorvaSTATin | Take 1 tablet by | | 0 | 12/1 | | Activ | | (LIPITOR) 40 mg | mouth nightly. | | | 5/20 | | e | | tablet | | | | 17 | | | + + + +---------+------+------+-------+ | albuterol 90 | Inhale 1-2 puffs | | 0 | 11/2 | | Activ | | mcg/puff inhaler | into the lung Every | | | 0/20 | | e | | | 6 Hours As Needed | | | 13 | | | | | for Wheezing or | | | | | | | | Shortness of Breath. | | | | | | + + + +---------+------+------+-------+ | albuterol 90 | Inhale 2 puffs into | | 0 | | | Activ | | mcg/puff inhaler | the lungs every 4 | | | | | e | | | (four) hours as | | | | | | | | needed for Wheezing. | | | | | | + + + +---------+------+------+-------+ | DULoxetine | Take 30 mg QAM with | | 0 | 10/1 | | Activ | | (CYMBALTA) [address] | food for 2 weeks. | | | 1/20 | | e | | capsule | Then increase to 60 | | | 13 | | | | | mg QAM with food. | | | | | | + + + +---------+------+------+-------+ | furosemide (LASIX) | TAKE ONE TABLET BY | | 0 | 04/0 | | Activ | | 40 mg tablet | MOUTH ONCE DAILY | | | 4/20 | | e | | | | | | 19 | | | + + + +---------+------+------+-------+ | gemfibrozil | TAKE ONE TABLET BY | | 0 | 04/0 | | Activ | | (LOPID) 600 mg | MOUTH TWICE DAILY | | | 4/20 | | e | | tablet | BEFORE MEAL(S) | | | 19 | | | + + + +---------+------+------+-------+ | glimepiride | Take 1 tablet (1 mg | | 0 | 03/2 | | Activ | | (AMARYL) 1 mg tablet | total) by mouth | | | 6/20 | | e | | | Every Morning | | | 15 | | | | | (Before Breakfast) | | | | | | + + + +---------+------+------+-------+ | | Take 1-2 tablets by | | 0 | 01/2 | | Activ | | HYDROcodone-acetamin | mouth Every 6 Hours | | | 0/20 | | e | | ophen (NORCO) 5-325 | As Needed for Pain | | | 15 | | | | mg per tablet | | | | | | | + + + +---------+------+------+-------+ | ibuprofen | Take 1 tablet by | | 0 | 08/2 | | Activ | | (ADVIL,MOTRIN) 800 | mouth Every 8 Hours | | | 2/20 | | e | | MG tablet | As Needed for Pain. | | | 13 | | | + + + +---------+------+------+-------+ | insulin lispro | Inject 0-7 Units | | 0 | 05/0 | | Activ | | (HUMALOG) 100 | into the skin | | | 1/20 | | e | | units/mL injection | Nightly. High Dose | | | 18 | | | | (vial) | HS Insulin Sliding | | | | | | | | ScaleBlood Glucose | | | | | | | | High DoseLess than | | | | | | | | 70Initiate | | | | | | | | Hypoglycemia | | | | | | | | [id number] | | | | | | | | 0 [id number] | | | | | | | | [id number] | | | | | | | | Rpfqw521-1536 | | | | | | | | Kaxws238-3870 | | | | | | | | Ucsfu491-3550 | | | | | | | | [id number] | | | | | | | | Units>400* 7 | | | | | | | | Units | | | | | | + + + +---------+------+------+-------+ | isosorbide | TAKE 1 TABLET BY | | 0 | 04/0 | | Activ | | mononitrate 60 mg ER | MOUTH ONCE DAILY, TO | | | 4/20 | | e | | tablet | REPLACE IMDUR 30 | | | 19 | | | | | MG | | | | | | + + + +---------+------+------+-------+ | E-Z Jeanneliese Lancets | 1 each by | | 0 | 08/2 | | Activ | | Thin MISC | Miscellaneous route | | | 20 | | e | | | As Needed for Serum | | | 13 | | | | | glucose. Dx: 250.0 | | | | | | + + + +---------+------+------+-------+ | losartan (COZAAR) | Take 1 tablet by | | 0 | 04/1 | | Activ | | 25 mg tablet | mouth daily. | | | 11/21 | | e | | | | | | 13 | | | + + + +---------+------+------+-------+ | metFORMIN | Take 1/2 tab by | | 0 | 08/2 | | Activ | | (GLUCOPHAGE) 500 mg | mouth twice daily | | | 05/21 | | e | | tablet | with meals for 1 | | | 13 | | | | | week, then full tab | | | | | | | | twice daily with | | | | | | | | meals. | | | | | | + + + +---------+------+------+-------+ | metoprolol | Take 1 tablet by | | 0 | 04/2 | | Activ | | succinate | mouth nightly. | | | 3/20 | | e | | (TOPROL-XL) 25 mg 24 | | | | 14 | | | | hr tablet | | | | | | | + + + +---------+------+------+-------+ | nicotine | Take 1 lozenge (2 mg | | 0 | 04/2 | | Activ | | polacrilex (COMMIT) | total) by mouth | | | 320 | | e | | 2 MG lozenge | Every Hour As Needed | | | 14 | | | | | for Smoking [...] severe craving.) | | | | | | + + + +---------+------+------+-------+ | potassium chloride | Take 1 capsule by | | 0 | 01/1 | | Activ | | (MICRO-K) 10 mEq CR | mouth daily. | | | 0/20 | | e | | capsule | | | | 18 | | | + + + +---------+------+------+-------+ | potassium chloride | Take 2 tablets by | | 0 | 05/0 | | Activ | | (KLOR-CON) 10 MEQ | mouth 2 times per | | | 1/20 | | e | | ER tablet | day for first 3 | [...] | + + + +---------+------+------+-------+ | pregabalin | Take 75 mg by mouth | | 0 | | | Activ | | (LYRICA) 75 mg | 3 (three) times | | | | | e | | capsule | daily. | | | | | | + + + +---------+------+------+-------+ | traMADol (ULTRAM) | Take 1 tablet by | | 0 | 05/0 | | Activ | | 50 mg tablet | mouth every 4 (four) | | | 1/20 | | e | | | hours as needed. | | | 18 | | | + + + +---------+------+------+-------+ | aspirin 81 MG | Take 81 mg by mouth | | 0 | | | Activ | | tablet | daily. Last dose | | | | | e | | | Saturday due to | | | | | | | | lung biopsy today | | | | | | + + + +---------+------+------+-------+ | atorvaSTATin | Take 1 tablet (80 mg | | 0 | 04/2 | | Activ | | (LIPITOR) 80 MG | total) by mouth | | | 3/20 | | e | | tablet | Daily | | | 14 | | | + + + +---------+------+------+-------+ | insulin aspart | Inject 10 Units into | | 0 | 05/0 | | Activ | | (NOVOLOG FLEXPEN) | the skin 3 (three) | | | 1/20 | | e | | 100 units/mL | times daily before | | | 18 | | | | injection pen | meals. With meals | | | | | | + + + +---------+------+------+-------+ | insulin detemir | Inject 40 Units into | | 0 | 05/0 | | Activ | | (LEVEMIR) 100 | the skin nightly. | | | 1/20 | | e | | units/mL injection | | | | 18 | | | | (vial) | | | | | | | + + + +---------+------+------+-------+ | oxyCODONE | Take 1 tablet by | | 0 | 05/0 | | Activ | | (ROXICODONE) 15 mg | mouth every 6 (six) | | | 8/20 | | e | | immediate release | hours as needed for | | | 18 | | | | tablet | Pain (6 to 7). | | | | | | + + + +---------+------+------+-------+ | tiZANidine | Take 1 tablet (4 mg | | 0 | 03/0 | | Activ | | (ZANAFLEX) 4 mg | total) by mouth | | | 9/20 | | e | | tablet | Every 6 Hours As | | | 13 | | | | | Needed | | | | | | + + + +---------+------+------+-------+ | Glucose Blood | 1 strip by | | 0 | 10/03 | | Activ | | (BLOOD GLUCOSE TEST | Misc.(Non-Drug; | | | 05/21 | | e | | STRIPS) STRP | Combo Route) route 2 | | | 13 | | | | | Times Daily. | | | | | | + + + +---------+------+------+-------+ Active Problems + + + | Problem | Noted Date | + + + | Volume overload | 06/30/2017 | + + + | Acute respiratory failure with hypoxia | 06/25/2017 | + + + | QT prolongation | 06/25/2017 | + + + | Bone lesion | 05/02/2017 | + + + | Malignant neoplasm of lower lobe of left lung | 05/02/2017 | + + + | Cavitary lesion of lung | 03/28/2017 | + + + | Personal history of tobacco use, presenting hazards to health | 03/28/2017 | + + + | ST elevation myocardial infarction involving left anterior | 02/13/2017 | | descending (LAD) coronary artery | | + + + | Chest pain at rest | 02/13/2017 | + + + | Elevated troponin | 02/13/2017 | + + + | Type 2 diabetes mellitus with other specified complication | 02/13/2017 | + + + | Essential hypertension | 02/13/2017 | + + + | Exercise-induced angina | 07/16/2016 | + + + + + | Overview: Last Assessment & Plan: 45 yr old female with h/o | | CAD s/p PCI to pLAD- HTN, DM, HLD with angina and multiple ER | | visits for chest painLost in follow up since PCI now presents | | with angina on effort- she reports medication | | compliance06/23/2013- [facility]- s/p PCI to | | pLAD, [...] | | after test | + + + + + | S/P drug eluting coronary stent placement | 05/12/2015 | + + + | Coronary artery disease involving [place] coronary artery of | 05/03/2015 | | [place] heart without angina pectoris | | + + + + + | Overview: Last Assessment & Plan: 44 yr old female with h/o | | CAD s/p PCI to pLAD- HTN, DM, HLD with angina and multiple ER | | visits for chest pain06/23/2013- [facility]- | | s/p PCI to pLAD, [...] | + + + + + | Myofascial pain | [...] Needs PAP smear VÍCTOR. | + + + + + | Lumbar radiculopathy | 05/23/2012 | + + + | Obesity | 05/23/2012 | + + + | Chronic low back pain | 05/22/2012 | + + + + + | Overview: Overview: | | With intermittent times of acute worsening of back pain. | | +UDS 01/2010 for Meth, transferred to [facility] after that. | + + + + + | Hyperlipidemia | 08/25/2010 | + + + | Major depressive disorder, recurrent episode, moderate | 03/02/2010 | + + + + + | Overview: Overview: | | Well controlled on Prozac 20mg daily | + + + + + | Migraine headache | 03/02/2010 | + + + + + | Overview: Overview: | | Controlled well with Midrin | + + + + + | Asthma, mild intermittent | 03/02/2010 | + + + + + | Overview: Overview: | | Well controlled with albuterol inhaler prn. | + + Immunizations + + + + | Name | Administration Dates | Next Due | + + + + | PNEUMOCOCCAL | 06/24/2013 | | | POLYSACCHARIDE | | | | 23-VALENT (PPSV23) | | | + + + + [...] | + + +------+ + | Heart failure | Maternal | | | | | Grandmoth | | | | | er | | | + + +------+ + | Asthma | Mother | | | + + +------+ + | COPD | Mother | | | + + +------+ + | Diabetes, NIDDM | Mother | | | + + +------+ + | Heart disease | Mother | | | + + +------+ + | Heart failure | Mother | | | + + [...] disease | + +------+ + + | Maternal Grandmother | | | | + +------+ + + | Mother | | | COPD (smoker), CHF, DM2, A-Fib, sleep | | | | (Age | apnea., Asthma | | | | 65) | | + +------+ + + | Mother | | | | + +------+ + + | Paternal Grandfather | | | | + +------+ + + | Paternal Grandmother | | | Alzheimers Disease | + +------+ + + Social History + +-------+ +--------+------+ | Tobacco Use | Types | Packs/Day | Years | Date | | | | | Used | | + +-------+ +--------+------+ | Former Smoker | | 1 | | | + +-------+ +--------+------+ + +---+---+---+ | Smokeless Tobacco: | | | | | Never Used | | | | + +---+---+---+ + + | Comments: quit 1 month ago | + + + + + | Sex Assigned at | Date Recorded | | | | + + + | Not on file | | + + + Last Filed Vital Signs + + + + + | Vital Sign | Reading | Time Taken | Comments | + + + + + | Blood Pressure | 130/90 | 07/25/2017 10:17 AM | | | | | PDT | | + + + + + | Pulse | 117 | 07/25/2017 10:17 AM | | | | | PDT | | + + + + + | Temperature | 35.8 C (96.5 F) | 07/25/2017 10:17 AM | | | | | PDT | | + + + + + | Respiratory Rate | 16 | 07/25/2017 10:17 AM | | | | | PDT | | + + + + + | Oxygen Saturation | 94% | 02/15/2017 7:21 AM | | | | | PST | | + + + + + | Inhaled Oxygen | - | - | | | Concentration | | | | + + + + + | Weight | 89.4 kg (197 lb) | 07/25/2017 10:17 AM | | | | | PDT | | + + + + + | Height | 165.1 cm (5' 5") | 07/25/2017 10:17 AM | | | | | PDT | | + + + + + | Body Mass Index | 32.78 | 07/25/2017 10:17 AM | | | | | PDT | | + + + + + Plan of Treatment + + + + + | Health Maintenance | Due Date | Last | Comments | | | | Done | | + + + + + | Hepatitis C | | | | | Screening | 1 | | | + + + + + | Medication | | | | | Management | 1 | | | + + [...] + + + | Vaccine: | | 06/25/19 | | | Pneumococcal 19-64 | 5 | 14 | | | (2 of 3 - PCV13) | | | | + + + + + | Breast Cancer | | | | | Screening | 6 | | | + + + + + | Adult Annual | | | | | Wellness Visit | 7 | | | + + + + + | Hemoglobin A1c | | 06/28/19 | | | Screening | 8 | 18, | | | | | 06/24/19 | | | | | 18, | | | | | 06/19/19 | | | | | 18, | | | | | Addition | | | | | al | | | | | history | | | | | exists | | + + + + + | Med Mgmt: HBA1C | | 06/28/19 | | | | 8 | 18, | | | | | 06/24/19 | | | | | 18, | | | | | 06/19/19 | | | | | 18, | | | | | Addition | | | | | al | | | | | history | | | | | exists | | + + + + + | Med Mgmt: BUN | | 07/10/19 | | | | 9 | 18, | | | | | 07/03/19 | | | | | 18, | | | | | 07/02/19 | | | | | 18, | | | | | Addition | | | | | al | | | | | history | | | | | exists | | + + + + + | Med Mgmt: Cr | | 07/10/19 | | | | 9 | 18, | | | | | 07/03/19 | | | | | 18, | | | | | 07/02/19 | | | | | 18, | | | | | Addition | | | | | al | | | | | history | | | | | exists | | + + + + + | Med Mgmt: K | | 07/10/19 | | | | 9 | 18, | | | | | 07/03/19 | | | | | 18, | | | | | 07/02/19 | | | | | 18, | | | | | Addition | | | | | al | | | | | history | | | | | exists | | + + + + + | Med Mgmt: Na | | 07/10/19 | | | | 9 | 18, | | | | | 07/03/19 | | | | | 18, | | | | | 07/02/19 | | | | | 18, | | | | | Addition | | | | | al | | | | | history | | | | | exists | | + + + + + | Med Mgmt: eGFR | | 07/10/19 | | | | 9 | 18, | | | | | 07/03/19 | | | | | 18, | | | | | 07/02/19 | | | | | 18, | | | | | Addition | | | | | al | | | | | history | | | | | exists | | + + + + + | Vaccine: Influenza | | | | | (#1) | 0 | | | + + + + + Results Not on filefrom Last 3 Months Insurance + +--------+ +--------+ +---------+--------+ | Payer | Benefi | Subscriber | Effect | Phone | Address | Type | | | t Plan | ID | marla | | | | | | / | | Dates | | | | | | Group | | | | | | + +--------+ +--------+ +---------+--------+ | MEDICARE | MEDICA | [id number] | 10/03/19 | [phone] | | Medica | | | RE | | 13-Pre | 5 | | re | | | PART A | | sent | | | | | | AND B | | | | | | + +--------+ +--------+ +---------+--------+ | [place] | MEDICA | [id number] | 02/12/ | [phone] | | Medica | | | ID | | 2017-P | 2 | | id | | | [place] | | resent | | | | + +--------+ +--------+ +---------+--------+ + +--------+ +--------+ + + | Guarantor Name | Accoun | Relation to | Date | Phone | Billing Address | | | t Type | Patient | of | | | | | | | | | | + +--------+ +--------+ + + | Nancy Terrazas | Person | Self | [birth year] | [address] | | | al/Fam | | 1971 | [phone] | [address] [place] | | | [place] | | | [address] (Home) | [address] | + +--------+ +--------+ + + Advance Directives + + + + + | Type | Date Recorded | Patient | Explanation | | | | Guide Winder | | + + + + + | Power of | | | | | Wire Drawer | | | | + + + + + | Advance | 02/14/2017 | | | | Directive | 6:22 PM | | | + + + + + + + + + + | Code Status | Date | Date | Comments | | | Activated | Inactivated | | + + + + + | Full Code | 02/14/2017 | 02/15/2017 | | | | 2:40 PM | 3:49 PM | | + + + + +
--- OUTSIDE RECORDS SUMMARY | ~2019-10-16 | XMS | Encounter Summary ---
Demographics + + + | Address | [address] | | | [place] [address] | + + + | Home Phone [...] #[id number] | | | | | [address] | | + + + + + | Bebe Terrazas | ECON | Unknown | Unavailable | + + + + + | Arden Terrazas | ECON | Unknown | | + + + + + Care Team Providers + +------+ + | Care Clinical Research Physician Name | Role | Phone | + +------+ + | Yuriy Cardenas PA-C | PCP | | + +------+ + Encounter Details +--------+--------+ + + + | Date | Type | Department | Care Team | Description | +--------+--------+ + + + | 10/07/ | Refill | [facility] | Yuriy Cardenas, | | | 2017 | | at [place] [address] | PA-C [address] | | | | [address] | [address] | | | | | [facility] [place], [place] | [place], [place] | | | | | [address] | [address] | | | | | [phone] | [phone] | | | | | | | [...]
--- OUTSIDE RECORDS SUMMARY | ~2019-10-16 | XMS | Encounter Summary ---
Demographics + + + | Address | [address] | | | [place] [address] | + + + | Home Phone | | + + + | Preferred Language | Unknown | + + + | Marital Status | | + + + | Mosque Affiliation | PRE | + + + [...] [id number] | | | | | [address] | | + + + + + | Bebe Terrazas | ECON | Unknown | Unavailable | + + + + + | Arden Terrazas | ECON | Unknown | | + + + + + Care Team Providers + +------+ + | Care Contracts Analyst Name | Role | Phone | + +------+ + | Crissy Santoyo PA-C | PCP | | + +------+ + Reason for Visit + + + | Reason | Comments | + + + | NSCLC - Non-small | | | cell lung cancer | | + + + Intake Referral (Urgent) +--------+--------+ + + + + | Status | Reason | Specialty | Diagnoses / | Referred By | Referred To | | | | | Procedures | Contact | Contact | +--------+--------+ + + + + | Closed | | Hematology & | Diagnoses | Ronald, | Hem Faculty | | | | Oncology | Malignant | Yuriy Mcgill PA-C | [facility] [address] | | | | | neoplasm of | [address] | | | | | unspecified | [place] | [facility] for | | | | | part of left | Rd | Health and | | | | | bronchus or | [place], | Healing, | | | | | lung | [place] | [address] | | | | | | [address] | [place], [place] | | | | | | Phone: | [phone] | | | | | | [phone] | Phone: | | | | | | Fax: | [phone] | | | | | | [phone] | Fax: | | | | | | | [phone] | +--------+--------+ + + + + Encounter Details +--------+---------+ + + + | Date | Type | Department | Care Team | Description | +--------+---------+ + + + | 06/14/ | Office | [facility] | Kirk Sawyer, | Non-small cell | | 2018 | Visit | Clinics at S | MD [address] | cancer of left lung | | | | [facility] [address] | [place], [place] | (HCC) (Primary Dx) | | | | [facility] for | [address] | | | | | Health and Healing, | [phone] | | | | | [address] | | | | | | [place], [place] | | | | | | [address] | | | | | | [phone] | | | +--------+---------+ + + + [...] + + + | Blood Pressure | 148/93 | 06/14/2017 2:57 PM | | | | | PDT | | + + + + + | Pulse | 111 | 06/14/2017 2:57 PM | | | | | PDT | | + + + + + | Temperature | 36.6 C (97.8 F) | 06/14/2017 2:57 PM | | | | | PDT | | + + + + + | Respiratory Rate | 18 | 06/14/2017 2:57 PM | | | | | PDT | | + + + + + | Oxygen Saturation | 96% | 06/14/2017 2:57 PM | | | | | PDT | | + + + + + | Inhaled Oxygen | - | - | | | Concentration | | | | + + + + + | Weight | 91.3 kg (201 lb 3.2 | 06/14/2017 2:57 PM | | | | oz) | PDT | | + + + + + | Height | 165.1 cm (5' 5") | 06/14/2017 2:57 PM | | | | | PDT | | + + + + + | Body Mass Index | 33.48 | 06/14/2017 2:57 PM | | | | | PDT | | + + + + + documented in this encounter Progress Notes Kirk Sawyer MD - 06/17/2017 1:10 AM PDTConsulting Physician:Kirk Sawyer MD Consultation Date:06/14/2017 Referring Physician: History Of Present Illness: Ms Terrazas is a 46-year-old patient with a recent diagnosis of a 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 The patient reports developin g chest pain near the end of 2016. She reported that to her primary care physician and even tually she had a CT scan of the chest by February 2017. This showed a cavitating left lower lobe mass measuring 2.7 cm without suspicious hilar or mediastinal adenopathy. Eventually she had a PET-CT scan on April 09, 2017, that showed faint FDG avidity within the left low er lobe without hilar or mediastinal adenopathy. There was a 12 mm sclerotic lesion in the left posterior vertebral body of T12 that was subsequently verified on a dedicated spine MRI and shown to be a benign lesion. Following the PET-CT scan, she had a CT-guided needle bio psy on April 25, 2017, from the left lower lobe lesion that came back as moderately diffe rentiated adenocarcinoma. She had a brain MRI on May 20, 2017, that did not detect any ev idence of metastatic disease. She also had an MRI of the thoracic spine to rule out metasta tic lesion after the finding on the PET-CT scan, and the lesion at T12 came back as non-cherry gnant. The patient is here in the clinic self-referring for consideration of definitive therapy fo r her early stage non-small cell lung cancer. She is accompanied by her daughter and claudia gonsalez. She is remarkably asymptomatic from her early stage disease. Most of her symptoms are r elated to her known coronary artery disease. There is no cough, no hemoptysis, no shortness of breath. She has a history of a 10-15 pound weight loss, but I believe this is related t o previous MN and intentional weight loss rather than tumor cachexia. Social History: The patient is currently on disability. 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 She has a lifelong history of fairly heavy smoking, started smoking in her late teens, ea rly 20s and quit a couple of months ago. Past Medical History: Significant for: 1.Coronary artery disease. 2.Ischemic cardiomyopathy. 3.Chronic back pain. 4.Hypertension. 5.Hypercholesterolemia. 6.Recent diagnosis of early stage lung cancer. 7.History of myocardial infarction. 8.Type 2 diabetes. Past Surgical History: Significant for: 1.History of . 2.Cholecystectomy. 3.Coronary artery stent placement. 4.Lithotripsy. 5.Lung biopsy. 6.Sinus surgery. 7.Spine surgery. 8.Tubal ligation. Family History: Significant for a history of COPD, CHF, coronary artery disease, type 2 di abetes, and asthma. Physical Examination: GENERAL: Reveals a pleasant patient in no apparent distress. VITAL SIGNS: Stable. ECOG performance status 1. HEENT: Negative scleral icterus. Cranial ner ves II through XII intact. Oral cavity shows no thrush or ulcers. Negative cervical adenop athy. CHEST: Clear to auscultation bilaterally. CARDIAC: Regular rate and rhythm. Soft holosystolic murmur. ABDOMEN: No hepatosplenomegaly. LOWER EXTREMITIES: No edema bilater ally. NEUROLOGIC: Grossly nonfocal. Imaging Studies: As outlined above include a series of CT scan of the chest, PET-CT scan, MRI of the brain and MRI of the thoracic spine, documenting an early stage adenocarcinoma of the left lower lobe with no hilar or mediastinal adenopathy and no evidence of distant meta static disease. Pathology revealed moderately differentiated adenocarcinoma of lung origin. Impression And Plan: A 46-year-old patient with a history of lifelong smoking, recently qu it, incidentally diagnosed with an early stage adenocarcinoma of the lung, here to discuss o ptions for surgical resection. I explained to her that given her early stage of disease, isadora edwards will certainly be a candidate for surgical resection provided her cardiac performance allo ws her to proceed with surgery. She recently had a cardiac echocardiogram showing an ejecti on fraction of 65% to 70%, although she recently had an MRI by the end of 2017. We will ref er the patient to Cardiothoracic Surgery for consideration of left lower lobectomy and media stinal lymph node dissection, and I will follow up with her after completion of the surgical resection. I spent 45 minutes with the patient and her family. I explained the rationale for surgical resection to them. More than 50% of my time was spent in [id number] counseling with the patient as well as coordination of care. MD ESCOBAR Liang/YADIEL /[id number] signed by Kirk Sawyer MD at 06/18/2017 2:05 PM PDTdocumented in this encounter Plan of Treatment Not on filedocumented as of this encounter Visit Diagnoses + + | Diagnosis | + + | Non-small cell cancer of left lung (HCC) - Primary | + + documented in this encounter
--- OUTSIDE RECORDS SUMMARY | ~2019-10-16 | XMS | Encounter Summary ---
Demographics + + + | Address | [address] | | | [place] [address] | + + + | Home Phone | | + + + | Preferred Language | Unknown | + + + | Marital Status | | + + + | Restorationism Affiliation | PRE | + + + | Race | White | + + + | Ethnic Group | Not or | + + + Author + + + | Author | [facility] | + + + | Organization | [facility] | + + + | [...] #[id number] | | | | | [address] | | + + + + + | Bebe Terrazas | ECON | Unknown | Unavailable | + + + + + | Arden Terrazas | ECON | Unknown | | + + + + + Care Team Providers + +------+ + | Care Integration Assistant Name | Role | Phone | + +------+ + | Zora Haddad DO | PCP | | + +------+ + Reason for Referral PROC - Inpatient Surgery (Routine) +--------+--------+ + + + + | Status | Reason | Specialty | Diagnoses / | Referred By | Referred To | | | | | Procedures | Contact | Contact | +--------+--------+ + + + + | Closed | | Neurological | Diagnoses | Raslan, | Raslan, | | | | Surgery | Lumbar | Sivakumar Hernandez MD | Sivakumar Hernandez MD | | | | | radiculopath | [address] | [address] | | | | | y Spinal | Ave | Ave | | | | | stenosis, | [place], [place] | [place] | | | | | lumbar | [address] | [address] | | | | | region, | Phone: | Phone: | | | | | without | [phone] | [phone] | | | | | neurogenic | Fax: | Fax: | | | | | claudication | [phone] | [phone] | | | | | Procedures | | | | | | | REQUEST TO | | | | | | | SURGERY | | | | | | | WELDING LEAD BURNER | | | | | | | VT LUMBAR | | | | | | | SPINE FUSN | | | | | | | INCLUDE | | | | | | | LAMINECTOMY | | | | | | | AND OR | | | | | | | DISCECTOMY | | | | | | | VT LUMBAR | | | | | | | SPINE FUSN, | | | | | | | EA ADDL | | | | | | | INTERSPACE | | | | | | | AND SEGMENT | | | | | | | VT | | | | | | | LAMINEC/FACE | | | | | | | TECT/FORAMIN | | | | | | | ,LUMBAR VT | | | | | | | LAMINEC/FACE | | | | | | | TECT/FORAMIN | | | | | | | ,EACH ADDNL | | | | | | | VT INSERT | | | | | | | VERT FIX | | | | | | | DEV,POST,3-6 | | | | | | | SGMTS VT | | | | | | | APPLY,SPINE | | | | | | | PROSTHETIC | | | | | | | DEVICE VT | | | | | | | SPIN BONE | | | | | | | ALLOGRFT | | | | | | | STRUCTURAL | | | | | | | VT SPIN BONE | | | | | | | AUTOGRFT | | | | | | | LOCAL VT | | | | | | | SPIN BONE | | | | | | | ALLOGRFT | | | | | | | MORSELIZED | | | | | | | VT MICROSURG | | | | | | | | | | | | | | TECHNIQUES,R | | | | | | | EQ OPER | | | | | | | MICROSCOPE | | | | | | | 724.02, | | | | | | | 724.4 | | | | | | | [address] | | | | | | | [address] | | | | | | | [address] | | | | | | | [phone] | | | | | | | [address] | | | | | | | [phone] | | | +--------+--------+ + + + + Reason for Visit + + + | Reason | Comments | + + + | Follow-up in | | | outpatient clinic | | + + + Consultation (Urgent) +--------+ + + + + + | Status | Reason | Specialty | Diagnoses / | Referred By | Referred To | | | | | Procedures | Contact | Contact | +--------+ + + + + + | Closed | Specialty | Neurological | Diagnoses | Boo, | Ciro, | | | Services | Surgery | | Zora Mcgill MD | Sivakumar Hernandez MD | | | Required | | Displacement | [facility] | [address] | | | | | of lumbar | [address] | Ave | | | | | intervertebr | CLINIC | [place], [place] | | | | | al disc | [address] | [address] | | | | | without | [address] | Phone: | | | | | myelopathy | [place] [address] | [phone] | | | | | INS: | [place], [place] | Fax: | | | | | [place] | [address] | [phone] | | | | | [place] [facility] | Phone: | | | | | | | [phone] | | | | | | | Fax: | | | | | | | [phone] | | +--------+ + + + + + Encounter Details +--------+---------+ + + + | Date | Type | Department | Care Team | Description | +--------+---------+ + + + | 11/19/ | Office | Neurosurgery 3270 | Sivakumar Tanner, | Lumbar radiculopathy | | 2012 | Visit | MARII Curran | [address] | (Primary Dx); Back | | | | Physician's | [place], [place] | pain; | | | | [place], 2nd floor | [address] | Pseudoarthrosis of | | | | [place], [place] | [phone] | lumbar spine | | | | [address] | | | | | | [phone] | | | +--------+---------+ + + + [...] + + + | Blood Pressure | 139/77 | 11/19/2012 8:40 AM | | | | | PDT | | + + + + + | Pulse | 92 | 11/19/2012 8:40 AM | | | | | PDT | | + + + + + | Temperature | 36.7 C (98 F) | 11/19/2012 8:40 AM | | | | | PDT [...] + + + + | Weight | 103.4 kg (228 lb) | 11/19/2012 8:40 AM | | | | | PDT | | + + + + + | Height | - | - | | + + + + + | Body Mass Index | - | - | | + + + + + documented in this encounter Progress Notes Sivakumar Tanner MD - 11/21/2012 1:14 PM PDTFormatting of this note might be different fro m the original. Nancy returns with a new CT scan and MRI. She continues to have back pain and leg pain a nd weakness of the right leg. Filed Vitals: 11/19/2012 8:40 AM Weight: 103.42 kg (228 lb) BP: 139/77 Pulse: 92 Temp: 36.7 C (98 F) PainSc: 08 - Very Severe Patient is A+Ox3, Names 5/5, PERRLA, EOMI, VFF, Face symmetric, Hearing intact to rub, V1-V 3 intact, tongue ML, Uvula central elevated, shruggs both shoulders. Her motor exam is 5/5 allover except right knee flexion/extension, dorsiflexion and planter flexion, normal bulk and tone, normal FFM. Sensations are ILT except for dermatomal sensory loss on the right side over L4-S1, normal cortical and deep sensations as well as Pin prick. Positive SLR on the right side Reflexes are 2/4 allover. Cerebellar exam is normal for FTN test and BRISA test. Gait is normal , spine with no deformity or tendernes CT: Severe spinal stenosis at L3-4 above the level of fusion. Severe degenerative changes with loss of disc height and evidence of starting anterolisthesis causing instability ( complete picture of proximal junctional disease) AP: Problems:- 1- Lumbar radiculopathy with weakness and sensory loss 2- Lumbar stenosis , severe at the proximal level ( proximal junctional disease) causing th e stenosis 3- pseudoarthrosis of L4-5 and L5-S1 Plan. Decompression of L3-4 and extension of fusion to L3-4 down to S-1 with addition of posterol ateral graft hoping to achieve fusion without the need of anterior surgery to redo L4-5 and L5-S1 . documented in this en counter Plan of Treatment Not on filedocumented as of this encounter Visit Diagnoses + + | Diagnosis | + + | Lumbar radiculopathy - Primary Thoracic or lumbosacral neuritis or radiculitis, | | unspecified | + + | Back pain Backache, unspecified | + + | Pseudoarthrosis of lumbar spine Nonunion of fracture | + + documented in this encounter"
--- OUTSIDE RECORDS SUMMARY | ~2019-10-16 | XMS | Encounter Summary ---
Demographics + + + | Address | [address] | | | [place] [address] | + + + | Home Phone [...] + + + | Author | [facility] | + + + | Organization | [facility] | + + + | Address [...] [address] | | | | | [address] | | + + + + + | Bebe Terrazas | ECON | Unknown | Unavailable | + + + + + | Arden Nini | ECON | Unknown | | + + + + + Care Team Providers + +------+ + | Care Design Technology Professor Name | Role | Phone | + +------+ + | Zora Haddad DO | PCP | | + +------+ + Encounter Details +--------+ + + + + | Date | Type | Department | Care Team | Description | +--------+ + + + + | 03/17/ | Telephone | Neurosurgery at | Michael Tannerterrence David, | | | 2013 | | [facility] [address] | MD [address] | | | | | Ave [facility] | [place], [place] | | | | | Health and Healing, | [address] | | | | | [facility] | [phone] | | | | | floor [place], [place] | | | | | | [address] | | | | | | [phone] | | | +--------+ + + + [...]
--- OUTSIDE RECORDS SUMMARY | ~2019-10-16 | XMS | Encounter Summary ---
Demographics + + + | Address | [address] | | | [place] [address] | + + + | Home Phone [...] [place] | | | | | [address] | | + + + + + | Bebe Terrazas | ECON | Unknown | Unavailable | + + + + + | Arden Terrazas | ECON | Unknown | | + + + + + Care Team Providers + +------+ + | Care Rfid Technician Name | Role | Phone | + +------+ + | Yuriy Cardenas PA-C | PCP | | + +------+ + Encounter Details +--------+ + + + + | Date | Type | Department | Care Team | Description | +--------+ + + + + | 09/07/ | MyChart | Diagnostic Imaging | | Appointment Reminder | | 2020 | Encounter | Services [address] | | | | | [address] | | | | | | [place], [place] | | | | | | [address] | | | +--------+ + + + [...]
--- OUTSIDE RECORDS SUMMARY | ~2019-10-16 | XMS | Encounter Summary ---
Demographics + + + | Address | [address] | | | [place] [address] | + + + | Home Phone [...] + + + | Author | [facility] | + + + | Organization | [facility] | + + + | [...] #[address] | | | | | [address] | | + + + + + | Bebe Terrazas | ECON | Unknown | Unavailable | + + + + + | Arden Terrazas | ECON | Unknown | | + + + + + Care Team Providers + +------+ + | Care Bilingual Operator Name | Role | Phone | + +------+ + | Crissy Santoyo PA-C | PCP | | + +------+ + Reason for Visit + + + | Reason | Comments | + + + | Return Patient | | + + + Encounter Details +--------+---------+ + + + | Date | Type | Department | Care Team | Description | +--------+---------+ + + + | 11/09/ | Office | Neurosurgery at | Sivakumar Tanner, | S/P lumbar fusion | | 2015 | Visit | [facility] [address] | MD [address] | (Primary Dx) | | | | Ave Center for | [place], [place] | | | | | Health and Healing, | [address] | | | | | [place] [address] [facility] | [phone] | | | | | floor [place], [place] | | | | | | [address] | | | | | | [phone] | | | +--------+---------+ + + + [...] Pressure | 118/78 | 11/10/2015 3:55 PM | | | | | PDT | | + + + + + | Pulse | 78 | 11/10/2015 3:55 PM | | | | | PDT | | + + + + + | Temperature | 36.7 C (98.1 F) | 11/10/2015 3:55 PM | | | | | PDT [...] kg (202 lb) | 11/10/2015 3:55 PM | | | | | PDT | | + + + + + | Height | 167.6 cm (5' 6") | 11/10/2015 3:55 PM | | | | | PDT | | + + + + + | Body Mass Index | 32.6 | 11/10/2015 3:55 PM | | | | | PDT | | + + + + + documented in this encounter Progress Notes Sivakumar Tanner MD - 11/10/2015 6:40 PM PDTFormatting of this note might be different fro m the original. Nancy returns today for follow up. She endorses neck pain and thoracic pain and residual back pain. She had an MRI C and T spine. Filed Vitals 11/10/2015 3:56 PM Height: 1.676 m (5' 6") Weight: 91.627 kg (202 lb) BP: 118/78 Pulse: 78 Temp: 36.7 C (98.1 F) TempSrc: Oral PainSc: 05 - Moderate to Severe PainLoc: Back (Upper) BMI: 32.62 kg/(m^2) Patient is A+Ox3, Names 5/5, PERRLA, EOMI, VFF, Face symmetric, Hearing intact to rub, V1-V 3 intact, tongue ML, Uvula central elevated, shruggs both shoulders. Her motor exam is 5/5 allover, normal bulk and tone, normal FFM. Sensations are ILT, normal cortical and deep sensations as well as Pin prick. Reflexes are 2/4 allover. Cerebellar exam is normal for FTN test and BRISA test. Gait is normal , spine with no deformity or tenderness MRI: Multilevel cervical degenerative disc disease with spinal stenosis, worse at C5-6, C6-7 AP: A 45 years old female with lumbar spondylolisthesis s/p L3-S1 fusion. MRI C spine shows cer vical stenosis in multiple level, but with no clinical signs or symptoms of myelopathy or ra diculopathy. I recommend non surgical intervention such as EDUARDO , facet injection, etc..... I will see the patient back in 6 month 16 6:42 PM PDTdocumented in this encounter Plan of Treatment Not on filedocumented as of this encounter Procedures + +--------+ + + + | Procedure Name | Priori | Date/Time | Associated Diagnosis | Comments | | | ty | | | | + +--------+ + + + | RADIOLOGY | | 07/01/2015 | | Results for this | | | | 12:00 AM | | procedure are in the | | | | PDT | | results section. | + +--------+ + + + documented in this encounter Results RADIOLOGY (07/01/2015 12:00 AM PDT) + + + | Narrative | Performed At | + + + | | | + + + documented in this encounter Visit Diagnoses + + | Diagnosis | + + | S/P lumbar fusion - Primary Arthrodesis status | + + documented in this encounter
--- OUTSIDE RECORDS SUMMARY | ~2019-10-16 | XMS | Encounter Summary ---
Demographics + + + | Address | [address] | | | [place] [address] | + + + | Home Phone [...] + + + | Author | [facility] | + + + | Organization | [facility] | + + + | [...] #[place] | | | | | [address] | | + + + + + | Bebe Terrazas | ECON | Unknown | Unavailable | + + + + + | Arden Terrazas | ECON | Unknown | | + + + + + Care Team Providers + +------+ + | Care Agriscience Instructor Name | Role | Phone | + +------+ + | Zora Haddad DO | PCP | | + +------+ + Encounter Details +--------+ + + + + | Date | Type | Department | Care Team | Description | +--------+ + + + + | 02/27/ | Trimmer Helper | Neurosurgery at | [place], | Lumbar radiculopathy | | 2012 | | [facility] | [facility] | (Primary Dx); | | | | and Healing [address] | [address] | Lumbar | | | | [address] Center for | [place], [place] | post-laminectomy | | | | Health and Healing, | [address] | syndrome | | | | [facility] | [phone] | | | | | Floor [place], [place] | | | | | | [address] | | | | | | [phone] | | | +--------+ + + + [...] | | unspecified | + + | Lumbar post-laminectomy syndrome Postlaminectomy syndrome, lumbar region | + + documented in this encounter"
--- OUTSIDE RECORDS SUMMARY | ~2019-10-16 | XMS | Encounter Summary ---
Demographics + + + | Address | [address] | | | [place] [address] | + + + | Home Phone [...] [place] | | | | | [address] | | + + + + + | Bebe Terrazas | ECON | Unknown | Unavailable | + + + + + | Arden Terrazas | ECON | Unknown | | + + + + + Care Team Providers + +------+ + | Care Allocations Clerk Name | Role | Phone | + +------+ + | Yuriy Cardenas PA-C | PCP | | + +------+ + Reason for Visit + + + | Reason | Comments | + + + | Lab Order | | + + + Encounter Details +--------+ + + + + | Date | Type | Department | Care Team | Description | +--------+ + + + + | 09/17/ | Telephone | [facility] | Yuriy Cardenas, | Lab Order | | 2019 | | at [place] [address] | PA-C [address] | | | | [address] | [facility] | | | | | [facility] [place], [place] | [place], [place] | | | | | [address] | [address] | | | | | [phone] | [phone] | | | | | | | [...]
--- OUTSIDE RECORDS SUMMARY | ~2019-10-16 | XMS | Encounter Summary ---
Demographics + + + | Address | [address] | | | [place] [address] | + + + | Home Phone [...] [place] | | | | | [address] | | + + + + + | Bebe Terrazas | ECON | Unknown | Unavailable | + + + + + | Arden Terrazas | ECON | Unknown | | + + + + + Care Team Providers + +------+ + | Care Slagger Name | Role | Phone | + +------+ + | Yuriy Cardenas PA-C | PCP | | + +------+ + Reason for Visit + + + | Reason | Comments | + + + | Scheduling | | + + + | Other | has several no show appts | + + + Encounter Details +--------+ + + + + | Date | Type | Department | Care Team | Description | +--------+ + + + + | 06/30/ | Telephone | [facility] | Kirk Sawyer, | Scheduling; Other | | 2019 | | Clinics at S | MD [address] | (has several no show | | | | [place] [address] | [place], [place] | appts) | | | | [address] [place] for | [address] | | | | | Health and Healing, | [phone] | | | | | [address] | | | | | | [place], [place] | | | | | | [address] | | | | | | [phone] | | | +--------+ + + + [...]
--- OUTSIDE RECORDS SUMMARY | ~2019-10-16 | XMS | Encounter Summary ---
Demographics + + + | Address | [address] | | | [place] [address] | + + + | Home Phone [...] #[address] | | | | | [address] | | + + + + + | Bebe Terrazas | ECON | Unknown | Unavailable | + + + + + | Arden Terrazas | ECON | Unknown | | + + + + + Care Team Providers + +------+ + | Care Flame Cutting Supervisor Name | Role | Phone | [...] Description | +--------+--------+ + + + | 01/20/ | Refill | [facility] Primary Care | Yuriy Cardenas, | Refill Request | | 2018 | | at [place] [address] | PA-C [id number] | | | | | [facility] | [facility] | | | | | [facility] [place], [place] | [place], [place] | | | | | [address] | [address] | | | | | [phone] | [phone] | | | | | | | [...]
--- OUTSIDE RECORDS SUMMARY | ~2019-10-16 | XMS | Encounter Summary ---
Demographics + + + | Address | [address] | | | [place] [address] | + + + | Home Phone | | + + + | Preferred Language | Unknown | + + + | Marital Status | | + + + | Muslim Affiliation | PRE | + + + | Race | White | + + + | Ethnic Group | Not or | + + + Author + + + | Author | [facility] | + + + | Organization | [facility] | + + + | Address [...] #[address] | | | | | [address] | | + + + + + | Bebe Terrazas | ECON | Unknown | Unavailable | + + + + + | Arden Terrazas | ECON | Unknown | | + + + + + Care Team Providers + +------+ + | Care Mill Tender Second Operator Name | Role | Phone | + +------+ + | Yuriy Cardenas PA-C | PCP | | + +------+ + Reason for Visit + + + | Reason | Comments | + + + | Home Oxygen Supply | | + + + Encounter Details +--------+ + + + + | Date | Type | Department | Care Team | Description | +--------+ + + + + | 01/08/ | Telephone | [facility] Primary Care | Yuriy Cardenas, | Home Oxygen Supply | | 2019 | | at [place] [address] | PA-C [id number] | | | | | [facility] | [facility] | | | | | [facility] [place], [place] | [place], [place] | | | | | [address] | [address] | | | | | [phone] | [phone] | | | | | | | [...]
--- OUTSIDE RECORDS SUMMARY | ~2019-10-16 | XMS | Encounter Summary ---
Demographics + + + | Address | [address] | | | [place] [address] | + + + | Home Phone | | + + + | Preferred Language | Unknown | + + + | Marital Status | | + + + | Anabaptism Affiliation | 1013 | + + + | Race | Unknown | + + + | Ethnic Group | Unknown | + + + Author + + + | Author | [facility] | | | and [place] | + + + | Organization | [facility] | | | and [place] | + + + | Address | Unknown | + + + | Phone | Unavailable | + + + Support + + + + + | Name | Relationship | Address | Phone | + + + + + | Dustin Terrazas | ECON | [place] | | | | | [address] | | + + + + + | Bebe Terrazas | ECON | [address] | | | | | [facility] [place] | | | | | [address] | | + + + + + Care Team Providers + +------+ + | Care Pocket Assembler Name | Role | Phone | + +------+ + PCP | Unavailable | + +------+ + Encounter Details +--------+ + + + + | Date | Type | Department | Care Team | Description | +--------+ + + + + | 05/02/ | Hospital | [facility] | Conversion | Chest pain, | | 2016 | Encounter | CONVERSION DEP [address] | Transaction, | unspecified chest | | | | [address] | Provider Unknown | pain type | | | | [place] | | | | | | [phone] | (Fax) | | | | | [phone] | | | +--------+ + + + [...] +--------+ + + + | XR CHEST 2 VIEWS | Routin | 03/30/2015 | | Results for this | | | e | 2:19 PM | | procedure are in the | | | | PST | | results section. | + +--------+ + + + documented in this encounter Results XR Chest 2 Vws (03/30/2015 2:19 PM PST) + + | Specimen | + + | | + + + + + | Narrative | Performed At | + + + | This is a non-reportable procedure without a radiologist report and | | | is used for image storage only | | + + + + + | Procedure Note | + + | MeirRoss oreilly - 10/16/2018 3:35 PM PDT This is a non-reportable procedure | | without a radiologist report and isused for image storage only | + + documented in this encounter Visit Diagnoses + + | Diagnosis | + + | Chest pain, unspecified chest pain type | + + documented in this encounter"
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
--- OUTSIDE RECORDS SUMMARY | ~2019-10-16 | XMS | Encounter Summary ---
Demographics + + + | Address | [address] | | | [place] [address] | + + + | Home Phone | | + + + | Preferred Language | Unknown | + + + | Marital Status | | + + + | Adventist Affiliation | PRE | + + + | Race | White | + + + | Ethnic Group | Not or | + + + Author + + + | Author | [facility] | + + + | Organization | [facility] | + + + | [...] #[place] | | | | | [address] | | + + + + + | Bebe Terrazas | ECON | Unknown | Unavailable | + + + + + | Arden Terrazas | ECON | Unknown | | + + + + + Care Team Providers + +------+ + | Care Merchant Miller Name | Role | Phone | + [...] | | | | | Procedures | [place], [place] | [facility], | | | | | CT SPINE | [address] | 10th Floor | | | | | LUMBAR WO | Phone: | [place], [place] | | | | | CONTRAST | [phone] | [address] | | | | | | Fax: | Phone: | | | | | | [phone] | [phone] | | | | | | | Fax: | | | | | | | [phone] | +--------+--------+ + + + + Consultation [...] | | | | | Procedures | [place], [place] | [place], [place] | | | | | CONSULT TO | [address] | [address] | | | | | [facility] | Phone: | | | | | | | [phone] | | | | | | | Fax: | | | | | | | [phone] | | +--------+--------+ + + + + [...] | | | Pavilion, 2nd floor | [place], [place] | | | | | [place], [place] | [address] | | | | | [address] | [phone] | | | | | [phone] | | | +--------+---------+ + + + [...] refer to Physical Therapy. [facility] [address] [place] [address] Mailcode: [id number] [place] [address] documented in t his encounter [...] | | + +---------+ + + | [facility] DEPARTMENT OF | | | | | RADIOLOGY | | | | + +---------+ + + documented in this encounter Visit Diagnoses + + | Diagnosis | + + | Lumbar radiculopathy - Primary Thoracic or lumbosacral neuritis or radiculitis, | | unspecified | + + documented in this encounter"
--- OUTSIDE RECORDS SUMMARY | ~2019-10-16 | XMS | Encounter Summary ---
Demographics + + + | Address | [address] | | | [place] [address] | + + + | Home Phone | | + + + | Preferred Language | Unknown | + + + | Marital Status | | + + + | Temple Affiliation | PRE | + + + | Race | White | + + + | Ethnic Group | Not or | + + + Author + + + | Author | [facility] | + + + | Organization | [facility] | + + + | Address [...] #[address] | | | | | [address] | | + + + + + | Bebe Terrazas | ECON | Unknown | Unavailable | + + + + + | Arden Terrazas | ECON | Unknown | | + + + + + Care Team Providers + +------+ + | Care Material Reclaimer Name | Role | Phone | + +------+ + | Zora Haddad DO | PCP | | + +------+ + Encounter Details +--------+ + + + + | Date | Type | Department | Care Team | Description | +--------+ + + + + | 02/27/ | Biological Lab Technician | Neurosurgery at | [place], | Lumbar radicul[facility] | | 2012 | [facility] | (Primary Dx); | | | | [facility] [address] | Lumbar | | | [address] [facility] | [place], [place] | post-laminectomy | | | | [facility], | [address] | syndrome | | | | [facility] | [phone] | | | | | Floor [place], [place] | | | | | | [address] | | | | | | [phone] | | | +--------+ + + + [...]
--- OUTSIDE RECORDS SUMMARY | ~2019-10-16 | XMS | Encounter Summary ---
Demographics + + + | Address | [address] | | | [place] [address] | + + + | Home Phone | | + + + | Preferred Language | Unknown | + + + | Marital Status | | + + + | Buddhist Affiliation | PRE | + + + [...] ST | Unavailable | | | | #[id number] | | | | | [address] | | + + + + + | Bebe Terrazas | ECON | Unknown | Unavailable | + + + + + | Arden Terrazas | ECON | Unknown | | + + + + + Care Team Providers + +------+ + | Care Documentation Billing Clerk Name | Role | Phone | [...] | Malignant | Yuriy Mcgill PA-C | [facility] [address] | | | | | neoplasm of | [address] | | | | | unspecified | [place] | Center for | | | | | part of left | Rd | Health and | | | | | bronchus or | [place], | Healing, | | | | | lung | [place] | [address] | | | | | | [address] | [place], [place] | | | | | | Phone: | [phone] | | | | | | [phone] | Phone: | | | | | | Fax: | [phone] | | | | | | [phone] | Fax: | | | | | | | [phone] | +--------+--------+ + + + + Encounter Details +--------+---------+ + + + | Date | Type | Department | Care Team | Description | +--------+---------+ + + + | 07/10/ | Office | [facility] | Kirk Sawyer, | Non-small cell | | 2019 | Visit | Clinics at S | MD [address] | cancer of left lung | | | | [facility] [address] | [place], [place] | (HCC) (Primary Dx) | | | | [facility] | [address] | | | | | Health and Healing, | [phone] | | | | | [address] | | | | | | [place], [place] | | | | | | [address] | | | | | | [phone] | | | +--------+---------+ + + + [...] + + + | Blood Pressure | 140/93 | 07/10/2018 3:15 PM | | | | | PDT | | + + + + + | Pulse | 104 | 07/10/2018 3:15 PM | | | | | PDT | | + + + + + | Temperature | 36.9 C (98.4 F) | 07/10/2018 3:15 PM | | | | | PDT | | + + + + + | Respiratory Rate | 16 | 07/10/2018 3:15 PM | | | | | PDT | | + + + + + | Oxygen Saturation | 98% | 07/10/2018 3:15 PM | | | | | PDT | | + + + + + | Inhaled Oxygen | - | - | | | Concentration | | | | + + + + + | Weight | 79.9 kg (176 lb 3.2 | 07/10/2018 3:15 PM | | | | oz) | PDT | | + + + + + | Height | - | - | | + + + + + | Body Mass Index | 28.44 | 10/04/2017 3:31 PM | | | | | PDT | | + + + + + documented in this encounter Progress Notes Kirk Sawyer MD - 07/10/2018 2:40 PM PDTFormatting of this note might be different fro m the original. Mrs. 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 She received no adjuvant chemo or RT due to early stage of the disease and has been in remission since then. She has no new symptoms to suggest recurrent disease and is following with her PCP in [place]. She had a new set of CT images of the chest and abdomen from Jul 07 2018 that confirmed her re mission status. From My Previous Note: History Of Present Illness: Ms Terrazas is a 47-year-old patient with a recent diagnosis of a [...] She is accompanied by her daughter and husban d. She is remarkably asymptomatic from her early stage disease. Most of her symptoms are r elated to her known coronary artery disease. There is no cough, no hemoptysis, no shortness of breath. She has a history of a 10-15 pound weight loss, but I believe this is related t o previous OR and intentional weight loss rather than tumor cachexia. Social History: The patient is currently on disability. 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 She has a lifelong history of fairly heavy smoking, started smoking in her late teens, ea rly 20s and quit a couple of months ago. Past Medical History: Significant for: 1. Coronary artery disease. 2. Ischemic cardiomyopathy. 3. Chronic back pain. 4. Hypertension. 5. Hypercholesterolemia. 6. Recent diagnosis of early stage lung cancer. 7. History of myocardial infarction. 8. Type 2 diabetes. Past Surgical History: Significant for: 1. History of . 2. Cholecystectomy. 3. Coronary artery stent placement. 4. Lithotripsy. 5. Lung biopsy. 6. Sinus surgery. 7. Spine surgery. 8. Tubal ligation. Family History: Significant for a history of COPD, CHF, coronary artery disease, type 2 di abetes, and asthma. Physical Examination: GENERAL: Reveals a pleasant patient in no apparent distress. VITAL SIGNS: BP Readings from Last 1 Encounters: 07/10/18 (!) 140/93 Pulse Readings from Last 1 Encounters: 07/10/18 104 Resp Readings from Last 1 Encounters: 07/10/18 16 Wt Readings from Last 1 Encounters: 07/10/18 79.9 kg (176 lb 3.2 oz) Temp Readings from Last 1 Encounters: 07/10/18 36.9 C (98.4 F) (Oral) Body mass index is 28.44 kg/m. ECOG performance status 1. HEENT: Negative scleral icterus. Oral cavity shows no thrush or ulcers. CHEST: Scattered rales bilaterally. CARDIAC: Regular rate and rhythm. Soft holosystolic murmur. Imaging Studies: CT CAP from 07/07/2018 1. No evidence of recurrent malignancy. 2. Palpable abnormalities are most likely accounted for by an increasing left flank hernia containing fat and a stable subcutaneous lipoma over the left hip. Impression And Plan: A 47-year-old patient here for routine follow-up 1 year after R0 resection for stage IA 3 a denocarcinoma of the left lower lobe. She has a long smoking history, recently quit, then sh grace was incidentally diagnosed with an early stage adenocarcinoma of the lung. Surgery took p kim on 06/22/2017 at [facility] in [place], [place] with final path showing pT1c pN0, M0 and she received no adjuvant chemotherapy. She has been under surveillance wit h her PCP and has no evidence of disease recurrence. Most recent chest and abdomen CT I spent 21 minutes with the patient and her . I explained the rationale for long-te rm survival. More than 50% of my time was spent in [id number] counseling with the patient as well as coordination of care. 1 0:54 AM PDTdocumented in this encounter Plan of Treatment Not on filedocumented as of this encounter Visit Diagnoses + + | Diagnosis | + + | Non-small cell cancer of left lung (HCC) - Primary | + + documented in this encounter"
--- OUTSIDE RECORDS SUMMARY | ~2019-10-16 | XMS | Encounter Summary ---
Demographics + + + | Address | [address] | | | [place] [address] | + + + | Home Phone [...] #[place] | | | | | [address] | | + + + + + | Bebe Terrazas | ECON | Unknown | Unavailable | + + + + + | Arden Terrazas | ECON | Unknown | | + + + + + Care Team Providers + +------+ + | Care Celery Cutter Name | Role | Phone | [...] Description | +--------+--------+ + + + | 08/28/ | Refill | [facility] Primary Care | Yuriy Cardenas, | Refill Request | | 2018 | | at [place] [address] | PA-C [address] | | | | [address] [facility] | [facility] | | | | | [facility] [place], [place] | [place], [place] | | | | | [address] | [address] | | | | | [phone] | [phone] | | | | | | | [...]
--- OUTSIDE RECORDS SUMMARY | ~2019-10-16 | XMS | Encounter Summary ---
Demographics + + + | Address | [address] | | | [place] [address] | + + + | Home Phone [...] #[address] | | | | | [address] | | + + + + + | Bebe Terrazas | ECON | Unknown | Unavailable | + + + + + | Arden Terrazas | ECON | Unknown | | + + + + + Care Team Providers + +------+ + | Care Silk Presser Name | Role | Phone | + +------+ + | Zora Haddad DO | PCP | | + +------+ + Reason for Visit + + + | Reason | Comments | + + + | Phone communication | | + + + Encounter Details +--------+ + + + + | Date | Type | Department | Care Team | Description | +--------+ + + + + | 11/04/ | Telephone | Neurosurgery [address] | Sivakumar Tanner, | Phone communication | | 2012 | | [address] | [address] | | | | | Physician's | [place], [place] | | | | | [place], [facility] floor | [address] | | | | | [place], [place] | [phone] | | | | | [address] | | | | | | [phone] | | | +--------+ + + + [...]
--- OUTSIDE RECORDS SUMMARY | ~2019-10-16 | XMS | Encounter Summary ---
Demographics + + + | Address | [address] | | | [place] [address] | + + + | Home Phone [...] #[address] | | | | | [address] | | + + + + + | Bebe Terrazas | ECON | Unknown | Unavailable | + + + + + | Arden Nini | ECON | Unknown | | + + + + + Care Team Providers + +------+ + | Care Customer Experience Analyst Name | Role | Phone | + +------+ + | Zora Haddad DO | PCP | | + +------+ + Encounter Details +--------+ + + + + | Date | Type | Department | Care Team | Description | +--------+ + + + + | 04/17/ | Telephone | [facility] | Praful Johnson, | | | 2013 | | Pain Center at | ,PhD [address] | | | | | [facility] | [address] | | | | | [address] | [place], [place] | | | | | [facility] | [address] | | | | | and Vi, | [phone] | | | | | | | | | | | Floor [place], [place] | | | | | | [address] | | | | | | [phone] | | | +--------+ + + + [...]
--- OUTSIDE RECORDS SUMMARY | ~2019-10-16 | XMS | Encounter Summary ---
Demographics + + + | Address | [address] | | | [place] [address] | + + + | Home Phone | | + + + | Preferred Language | Unknown | + + + | Marital Status | | + + + | Holiness Affiliation | PRE | + + + | Race | White | + + + | Ethnic Group | Not or | + + + Author + + + | Author | [facility] | + + + | Organization | [facility] | + + + | Address [...] #[address] | | | | | [address] | | + + + + + | Bebe Terrazas | ECON | Unknown | Unavailable | + + + + + | Arden Terrazas | ECON | Unknown | | + + + + + Care Team Providers + +------+ + | Care Ammunition Components Inspector Name | Role | Phone | + +------+ + | Yuriy Cardenas PA-C | PCP | | + +------+ + Encounter Details +--------+ + + + + | Date | Type | Department | Care Team | Description | +--------+ + + + + | 08/30/ | MyChart | Diagnostic Imaging | | CT Screening Form | | 2020 | Encounter | Services [address] | | | | | | [address] | | | | | | [place], [place] | | | | | | [address] | | | +--------+ + + + [...]
--- OUTSIDE RECORDS SUMMARY | ~2019-10-16 | XMS | Encounter Summary ---
Demographics + + + | Address | [address] | | | [place] [address] | + + + | Home Phone | | + + + | Preferred Language | Unknown | + + + | Marital Status | | + + + | Zoroastrian Affiliation | PRE | + + + [...] #[place] | | | | | [address] | | + + + + + | Bebe Merino | ECON | Unknown | Unavailable | + + + + + | Arden Merino | ECON | Unknown | | + + + + + Care Team Providers + +------+ + | Care Turpentine Distiller Name | Role | Phone | + +------+ + | Yuriy Cardenas PA-C | PCP | | + +------+ + Encounter Details +--------+ + + + + | Date | Type | Department | Care Team | Description | +--------+ + + + + | 06/19/ | Abstract | [facility] Primary Care | Yuriy Cardenas, | | | 2018 | | at [place] [address] | [address] | | | | [address] | [address] | | | | | [facility] [place], [place] | [place], [place] | | | | | [address] | [address] | | | | | [phone] | [phone] | | | | | | | [...] 10/08/2008 | NON [facility] | | [facility] Result Narrative MARY MERINO | | | J : 70 | | | Collection Date: 10/08/2008 Case | | | #: [id number] DIAGNOSIS Negative for intraepithelial | | | [...] Professional | | | Services Provided [facility] [place] | | + + + + +---------+ + + | Performing | Address | City/State/Zipcode | Phone Number | | Organization | | | | + +---------+ + + | NON [facility] | | | | + +---------+ + + documented in this encounter Visit Diagnoses Not on filedocumented in this encounter"
--- OUTSIDE RECORDS SUMMARY | ~2019-10-16 | XMS | Encounter Summary ---
Demographics + + + | Address | [address] | | | [place] [address] | + + + | Home Phone | | + + + | Preferred Language | Unknown | + + + | Marital Status | | + + + | Caodaism Affiliation | PRE | + + + | Race | White | + + + | Ethnic Group | Not or | + + + Author + + + | Author | [facility] | + + + | Organization | [facility] | + + + | Address [...] [id number] [place] | | | | | [id number] | | + + + + + | Bebe Terrazas | ECON | Unknown | Unavailable | + + + + + | Arden Terrazas | ECON | Unknown | | + + + + + Care Team Providers + +------+ + | Care Treasury Consultant Name | Role | Phone | + +------+ + | Yuriy Carednas PA-C | PCP | | + +------+ + Reason for Visit + + + | Reason | Comments | + + + | Medication Refill | | + + + | Patient referral | hernia | + + + Encounter Details +--------+---------+ + + + | Date | Type | Department | Care Team | Description | +--------+---------+ + + + | 03/30/ | Office | [facility] | Yuriy Cardenas, | Type 2 diabetes | | 2019 | Visit | at [place] [address] | PA-C [address] | mellitus with | | | | [address] | [address] | diabetic | | | | [place] [employer], [place] | [place] | polyneuropathy, with | | | | [phone] | [phone] | long-term current | | | | [phone] | [phone] | use of insulin (HCC) | | | | | | (Primary Dx); | | | | | | Atherosclerosis of | | | | | | penobscot coronary | | | | | | artery of [place] | | | | | | heart with stable | | | | | | angina pectoris | | | | | | ([facility]); Chronic | | | | | | combined systolic | | | | | | and diastolic heart | | | | | | failure ([facility]); Major | | | | | | depressive | | | | | | disorder, recurrent | | | | | | episode, moderate | | | | | | ([facility]); Non-small | | | | | | cell cancer of left | | | | | | lung (HCC); Other | | | | | | chronic | | | | | | postprocedural pain; | | | | | | B12 deficiency; | | | | | | Dermatitis | +--------+---------+ + + + Social History [...] Instructions Patient Instructions Yuriy Cardenas PA-C - 03/30/2019 4:00 PM PSTIt makes sense to go up o n the dose of your Ozempic, it seems like this has been a really good med for you. See if the ointment helps calm the itching and irritation around the eyes (keep it out of t he eyes), and if not improving in a week or so of using this at bedtime let me know and I wi ll refer you to dermatology to decide on biopsy. We can keep pain treatment the same. See about setting up with your oncologist for May, if they need me to place the CT order to have done before you see them call and let me know. documented in this encounter Progress Notes Yuriy Cardenas PA-C - 03/30/2019 4:00 PM PSTFormatting of this note might be different fro m the original. [facility] Established Visit Visit with: Yuriy Cardenas PA-C (PCP is Yuriy Cardenas PA-C) Visit date: 03/30/2019 Patient: Nancy Terrazas SUBJECTIVE: Nancy is a 48 y.o. female who presents for follow up of diabetes and multiple below issu es. Her blood sugars had been doing really well with being on the Ozempic, was almost not needi ng mealtime insulin with being on it. Then pharmacy had issues with filling it for 5 weeks which was really frustrating. She reports the following: no hypoglycemia, no medication side effects noted Home BG range has been in mid-200's fasted over the several weeks she was out of Ozempic, s tarting to get into lower to mid-100's in the last 2 weeks with being back on this. Usually injecting up to 20u of her long-acting Levemir insulin BID. Often only needing her mealtime insulin at lunchtime, not at breakfast or dinner. Taking meds regularly. Denies any SE's with these. Has had to take her NTG a couple of times in the last week. Was unsure if it really helped , uncertain if was really more due to anxiety. This was after getting chest/rib symptoms for several hours, though is hard for her to diff erentiate from classic angina as gets R scapula pain. Has dropped down to 30mg isosorbide at baseline due to a lot of migraines when at 60mg. Her foot pain has been really bothersome from her neuropathy. In general duloxetine has he lped but more flared. Noticing a rash across her eyelids and between eyes, "scales up and sloughs off." Itches a fair amount. Noticed this about 3 months ago. Worries about this because she saw her sister with this before she ended up passing away. This was reportedly a cutaneous T-cell lymphoma. Feels worried about possibility of this. Cyst on her back has fluctuated in size. Does not have any scheduled follow up with Oncology. She does still have concerns about L flank hernia. Does not check home BP's regularly. ROS: Denies GUERIN, no palpitations, no lightheadedness/dizziness, not having visual or motor changes. No n/v/d, not getting urinary or stool changes. OBJECTIVE: BP 116/70 | Pulse 70 | Resp 16 | Wt 80.7 kg (178 lb) | BMI 28.73 kg/m | BSA 1.94 m Gen: alert, in NAD Face: very mildly pink light rash across eyelids and cheeks, minimally roughened Lungs: CTA bilaterally, without wheezes/rales/rhonchi, diminished BS of L lung. Heart: RRR with no murmur/rub/gallop Chest: L flank tender bulge at site of known hernia Psych: slightly flattened essentially baseline mood and affect, no pressured speech, displa ys normal thought content, reasoning intact, shows fair to good insight Recent Labs 09/26/18 1621 12/23/18 1722 A1C 12.1* 12.0* NA Date Value Ref Range Status 09/26/2018 [...] with long-term current use of ins ulin ([facility]) E11.42 HEMOGLOBIN A1C,POC Z79.4 LIPID SET (TRIG, T CHOL, HDL, CALC LDL) COMPLETE METABOLIC SET (NA,K,CL,CO2,BUN,CREAT,GLUC,CA,AST,ALT,BILI TOTAL,ALK PHOS,ALB,PRO T TOTAL) empagliflozin (JARDIANCE) 10 mg oral tablet semaglutide (OZEMPIC) 1 mg/dose (2 mg/1.5 mL) subcutaneous pen injector CBC, WITH DIFFERENTIAL HEMOGLOBIN A1C, BLOOD CBC AND AUTO DIFF LDL CHOLEST,MEASURED, PLASMA 2. Atherosclerosis of [place] coronary artery of [place] heart with stable angina pectoris (H [facility]) I25.118 3. Chronic combined systolic and diastolic heart failure ([facility]) I50.42 4. Major depressive disorder, recurrent episode, moderate ([facility]) F33.1 5. Non-small cell cancer of left lung ([facility]) C34.92 morphine SR 10 mg oral capsule,extend.re lease pellets oxyCODONE (immediate release) 5 mg oral tablet morphine SR 10 mg oral capsule,extend.release pellets oxyCODONE (immediate release) 5 mg oral tablet CBC, WITH DIFFERENTIAL CBC AND AUTO DIFF CANCELED: CBC ONLY CANCELED: CBC (HEMOGRAM) ONLY 6. Other chronic postprocedural pain G89.28 morphine SR 10 mg oral capsule,extend.release p ellets oxyCODONE (immediate release) 5 mg oral tablet morphine SR 10 mg oral capsule,extend.release pellets oxyCODONE (immediate release) 5 mg oral tablet CBC, WITH DIFFERENTIAL CBC AND AUTO DIFF CANCELED: CBC ONLY CANCELED: CBC (HEMOGRAM) ONLY 7. B12 deficiency E53.8 VITAMIN B-12 CBC, WITH DIFFERENTIAL CBC AND AUTO DIFF 8. Dermatitis L30.9 triamcinolone acetonide 0.1 % topical ointment CBC, WITH DIFFERENTIAL CBC AND AUTO DIFF Due to issue with machinery, unable to check POC A1c today so was sent with other labs. It makes sense to go up on the dose of her Ozempic, it seems like this has been a really go od med for her. Am hopeful results show her BG has started to come down. Has needed her NTG a few times, unclear if more anxiety related. She is still on the lower dose of isosorbide which appears appropriate. No increase in edema to suggest worsening of CHF and weight has been stable, no breathing i ssues. Mood stable on current dose of duloxetine, no changes. Recommending scheduling with oncologist for lung CA follow up, if needing imaging orders pl aced by myself I can do that. Continuing with baseline low MED dosing for pain, had been on prior to CA and stable with t his. See if the ointment helps calm the itching and irritation around the eyes (keep it out of t he eyes), and if not improving in a week or so of using this at bedtime let me know and I wi ll refer her to dermatology to decide on biopsy. Overall given her presentation I reassured her I felt it was less likely this was cutaneous T-cell lymphoma, especially given her myri ad other health problems it would be unusual. Checking labs. F/u 8 weeks. documented in this en counter Plan of Treatment + + +--------+ + + | Name | Type | Priori | Associated Diagnoses | Order Schedule | | | | ty | | | + + +--------+ + + | HEMOGLOBIN A1C,POC | Lab - Point | Routin | Type 2 diabetes | Ordered: 03/30/2019 | | | of Care | e | mellitus with | | | | Interface | | diabetic | | | | | | polyneuropathy, with | | | | | | long-term current | | | | | | use of insulin (HCC) | | + + +--------+ + + documented as of this encounter Procedures + +--------+ + + + | Procedure Name | Priori | Date/Time | Associated Diagnosis | Comments | | | ty | | | | + +--------+ + + + | CBC AND AUTO DIFF | Routin | 03/30/2019 | Dermatitis | Results for this | | | e | 5:51 PM | Non-small cell | procedure are in the | | | | PST | cancer of left lung | results section. | | | | | (HCC) Other chronic | | | | | | postprocedural pain | | | | | | Type 2 diabetes | | | | | | mellitus with | | | | | | diabetic | | | | | | polyneuropathy, with | | | | | | long-term current | | | | | | use of insulin (HCC) | | | | | | B12 deficiency | | + +--------+ + + + | CBC, WITH | Routin | 03/30/2019 | Dermatitis | Results for this | | DIFFERENTIAL | e | 5:51 PM | Non-small cell | procedure are in the | | | | PST | cancer of left lung | results section. | | | | | (HCC) Other chronic | | | | | | postprocedural pain | | | | | | Type 2 diabetes | | | | | | mellitus with | | | | | | diabetic | | | | | | polyneuropathy, with | | | | | | long-term current | | | | | | use of insulin ([facility]) | | | | | | B12 deficiency | | + +--------+ + + + | HEMOGLOBIN A1C, | Routin | 03/30/2019 | Type 2 diabetes | Results for this | | BLOOD | e | 5:51 PM | mellitus with | procedure are in the | | | | PST | diabetic | results section. | | | | | polyneuropathy, with | | | | | | long-term current | | | | | | use of insulin (HCC) | | + +--------+ + + + | COMPLETE METABOLIC | Routin | 03/30/2019 | Type 2 diabetes | Results for this | | SET | e | 5:19 PM | mellitus with | procedure are in the | | (NA,K,CL,CO2,BUN,CRE | | PST | diabetic | results section. | | AT,GLUC,CA,AST,ALT,B | | | polyneuropathy, with | | | TEOFILO TOTAL,ALK | | | long-term current | | | PHOS,ALB,PROT TOTAL) | | | use of insulin (HCC) | | + +--------+ + + + | LIPID SET (TRIG, T | Routin | 03/30/2019 | Type 2 diabetes | Results for this | | CHOL, HDL, CALC LDL) | e | 5:19 PM | mellitus with | procedure are in the | | | | PST | diabetic | results section. | | | | | polyneuropathy, with | | | | | | long-term current | | | | | | use of insulin (HCC) | | + +--------+ + + + | VITAMIN B-12 | Routin | 03/30/2019 | B12 deficiency | Results for this | | | e | 5:19 PM | | procedure are in the | | | | PST | | results section. | + +--------+ + + + | HB-LAB LDL CHOLEST, | Routin | 03/30/2019 | Type 2 diabetes | Results for this | | MEASURED | e | 5:19 PM | mellitus with | procedure are in the | | | | PST | diabetic | results section. | | | | | polyneuropathy, with | | | | | | long-term current | | | | | | use of insulin (HCC) | | + +--------+ + + + documented in this encounter Results CBC AND AUTO DIFF (03/30/2019 5:51 PM PST) + + + + + + | Component | Value | Ref Range | Performed | Pathologist | | | | | At | Signature | + + + + + + | WHITE CELL | 14.57 (H) | 3.50 - 10.80 | [facility] | | | COUNT | | K/cu mm | LABORATORY | | | | | | SERVICES, | | | | | | CORE | | + + + + + + | RED CELL | 5.80 (H) | 4.00 - 5.20 | [facility] | | | COUNT | | M/cu mm | LABORATORY | | | | | | SERVICES, | | | | | | CORE | | + + + + + + | HEMOGLOBIN | 17.1 (H) | 12.0 - 16.0 | [facility] | | | | | g/dL | LABORATORY | | | | | | SERVICES, | | | | | | CORE | | + + + + + + | HEMATOCRIT | 52.7 (H) | 36.0 - 46.0 % | [facility] | | | | | | LABORATORY | | | | | | SERVICES, | | | | | | CORE | | + + + + + + | MCV | 90.9 | 80.0 - 100.0 fL | [facility] | | | | | | LABORATORY | | | | | | SERVICES, | | | | | | CORE | | + + + + + + | MCHC | 32.4 | 32.0 - 36.0 | [facility] | | | | | g/dL | LABORATORY | | | | | | SERVICES, | | | | | | CORE | | + + + + + + | RDW SD | 42.1 | 35.1 - 46.3 fL | [facility] | | | | | | LABORATORY | | | | | | SERVICES, | | | | | | CORE | | + + + + + + | PLATELET | Comment: Many platelet | | [facility] | | | COUNT | clumps present, result | | LABORATORY | | | | not available. | | SERVICES, | | | | | | CORE | | + + + + + + | MPV | Comment: Not Measured | | [facility] | | | | [...] + + + + | NEUTROPHIL | 64.0 | 50.0 - 70.0 % | [facility] | | | % | | | LABORATORY | | | | | | SERVICES, | | | | | | CORE | | + + + + + + | LYMPHOCYTE | 26.6 | 18.0 - 42.0 % | [facility] | | | % | | | LABORATORY | | | | | | SERVICES, | | | | | | CORE | | + + + + + + | MONOCYTE % | 7.1 | 3.5 - 9.0 % | [facility] | | | | | | LABORATORY | | | | | | SERVICES, | | | | | | CORE | | + + + + + + | EOS % | 1.6 | 1.0 - 3.0 % | [facility] | | | | | | LABORATORY | | | | | | SERVICES, | | | | | | CORE | | + + + + + + | BASO % | 0.3 | 0.0 - 2.0 % | [facility] | | | | | | LABORATORY | | | | | | SERVICES, | | | | | | CORE | | + + + + + + | IG% | 0.4 | 0.0 - 1.0 % | [facility] | | | | | | LABORATORY | | | | | | SERVICES, | | | | | | CORE | | + + + + + + | NEUTROPHIL | 9.31 (H) | 1.80 - 7.70 | [facility] | | | # | | K/cu mm | LABORATORY | | | | | | SERVICES, | | | | | | CORE | | + + + + + + | LYMPHOCYTE | 3.87 | 1.00 - 4.80 | [facility] | | | # | | K/cu mm | LABORATORY | | | | | | SERVICES, | | | | | | CORE | | + + + + + + | MONOCYTE # | 1.04 (H) | 0.10 - 0.90 | [facility] | | | | | K/cu mm | LABORATORY | | | | | | SERVICES, | | | | | | CORE | | + + + + + + | EOS # | 0.24 | 0.00 - 0.50 | [facility] | | | | | K/cu mm | LABORATORY | | | | | | SERVICES, | | | | | | CORE | | + + + + + + | BASO # | 0.05 | 0.00 - 0.10 | [facility] | | | | | K/cu mm | LABORATORY | | | | | | SERVICES, | | | | | | CORE | | + + + + + + | IG# | 0.06 | 0.00 - 0.10 | [facility] | | | | | K/cu mm | LABORATORY | | | | | | SERVICES, | | | | | | CORE | | + + + + + + + + | Specimen | + + | Blood - Blood | | (substance) | + + + + + | Narrative | Performed At | + + + | Increased immature granulocytes (IG) define a left shift. Immature | [facility] | | granulocytes (IG) are an automated count of metamyelocytes, myelocytes | LABORATORY | | and promyelocytes. Bands are not included in the IG count. Bands are | SERVICES, CORE | | included in the neutrophil count. | | + + + + + + + + | Performing | Address | City/State/Zipcode | Phone Number | | Organization | | | | + + + + + | [facility] | [address] | [place] [address] | | | SERVICES, CORE | [address] | | | + + + + + HEMOGLOBIN A1C, BLOOD (03/30/2019 5:51 PM PST) + + + + + + | Component | Value | Ref Range | Performed | Pathologist | | | | | At | Signature | + + + + + + | HEMOGLOBIN | 11.0 (H)Comment: Hgb A1C | <5.7 % | [...] + + + + | ESTIMATED | 269Comment: The | mg/dL | [facility] | | [...] | [facility] | | considered for monitoring mcc glycemic control in patients with: | LABORATORY [...] | + + + + + | [facility] | [address] | [place] [address] | | | SERVICES, SPECIAL | [address] | | | | IMM + COAG | | | | + + + + + LDL CHOLEST,MEASURED, PLASMA (03/30/2019 5:19 PM PST) + +---------+ + + + | Component | Value | Ref Range | Performed | Pathologist | | | | | At | Signature | + +---------+ + + + | LDL CHOLEST | 185 (H) | <100 mg/dL | [facility] | | | | | | LABORATORY | | | | | | SERVICES, | | | | | | CORE | | + +---------+ + + + + + | Specimen | + + | Blood - Blood | | (substance) | + + + + + | Narrative | Performed At | + + + | LDL Cholesterol Reference Range: Optimal: | [facility] | | <100 mg/dL Near Optimal: 100-129 mg/dL Borderline | LABORATORY | | High: 130-159 mg/dL High: 160-189 mg/dL | SERVICES, CORE | | Very High: >=190 mg/dL | | + + + + + + + + | Performing | Address | City/State/Zipcode | Phone Number | | Organization | | | | + + + + + | [facility] | [address] | [place] [address] | | | SERVICES, CORE | [address] | | | + + + + + VITAMIN B-12 (03/30/2019 5:19 PM PST) + +-------+ + + + | Component | Value | Ref Range | Performed | Pathologist | | | | | At | Signature | + +-------+ + + + | VITAMIN B12 | 656 | 193 - 986 pg/mL | [facility] [...] | + + + + + | [facility] | [address] | [place] [address] | | | SERVICES, CORE | [address] | | | + + + + + COMPLETE METABOLIC SET (NA,K,CL,CO2,BUN,CREAT,GLUC,CA,AST,ALT,BILI TOTAL,ALK PHOS,ALB,PROT TOTAL) (03/30/2019 5:19 PM PST) + +---------+ + + + | Component | Value | Ref Range | Performed | Pathologist | | | | | At | Signature | + +---------+ + + + | GLUCOSE, | 186 (H) | 70 - 99 mg/dL | [facility] | | | PLASMA | | | LABORATORY | | | (LAB) | | | SERVICES, | | | | | | CORE | | + +---------+ + + + | BUN, PLASMA | 14 | 6 - 20 mg/dL | [facility] | | | (LAB) | | | LABORATORY | | | | | | SERVICES, | | | | | | CORE | | + +---------+ + + + | CREATININE | 0.65 | 0.60 - 1.10 | [facility] | | | PLASMA | | mg/dL | LABORATORY | | | (LAB) | | | SERVICES, | | | | | | CORE | | + +---------+ + + + | EGFR | >60 | >60 mL/min | [facility] | | | - | | | LABORATORY | | | TURK[place] | | | SERVICES, | | | | | | CORE | | + +---------+ + + + | EGFR NON | >60 | >60 mL/min | [facility] | | | -RADHA | | | LABORATORY | | | RICAN | | | SERVICES, | | | | | | CORE | | + +---------+ + + + | SODIUM, | 135 (L) | 136 - 145 | [facility] | | | PLASMA | | mmol/L | LABORATORY | | | (LAB) | | | SERVICES, | | | | | | CORE | | + +---------+ + + + | POTASSIUM, | 4.5 | 3.4 - 5.0 | [facility] | | | PLASMA | | mmol/L | LABORATORY | | | (LAB) | | | SERVICES, | | | | | | CORE | | + +---------+ + + + | CHLORIDE, | 103 | 97 - 108 mmol/L | [facility] | | | PLASMA | | | LABORATORY | | | (LAB) | | | SERVICES, | | | | | | CORE | | + +---------+ + + + | TOTAL CO2, | 23 | 21 - 32 mmol/L | [facility] | | | PLASMA | | | LABORATORY | | | (LAB) | | | SERVICES, | | | | | | CORE | | + +---------+ + + + | CALCIUM, | 9.7 | 8.6 - 10.2 | [facility] | | | PLASMA | | mg/dL | LABORATORY | | | (LAB) | | | SERVICES, | | | | | | CORE | | + +---------+ + + + | CALCIUM(ALB | 10.2 | 8.6 - 10.2 | [facility] | | | CORRECTED) | | mg/dL | LABORATORY | | | | | | SERVICES, | | | | | | CORE | | + +---------+ + + + | BILIRUBIN | 0.2 (L) | 0.3 - 1.2 mg/dL | [facility] | | | TOTAL | | | LABORATORY | | | | | | SERVICES, | | | | | | CORE | | + +---------+ + + + | TOTAL | 8.4 (H) | 6.4 - 8.2 g/dL | [facility] | | | PROTEIN, | | | LABORATORY | | | PLASMA | | | SERVICES, | | | (LAB) | | | CORE | | + +---------+ + + + | ALBUMIN, | 3.4 (L) | 3.5 - 4.7 g/dL | [facility] | | | PLASMA | | | LABORATORY | | | (LAB) | | | SERVICES, | | | | | | CORE | | + +---------+ + + + | ALK PHOS | 140 (H) | 42 - 98 U/L | [facility] | | | | | | LABORATORY | | | | | | SERVICES, | | | | | | CORE | | + +---------+ + + + | AST(SGOT) | 25 | <=41 U/L | [facility] | | | | | | LABORATORY | | | | | | SERVICES, | | | | | | CORE | | + +---------+ + + + | ALT (SGPT) | 33 | <=60 U/L | [facility] | | | | | | LABORATORY | | | | | | SERVICES, | | | | | | CORE | | + +---------+ + + + | ANION GAP | 9 | 4 - 11 mmol/L | [facility] | | | | | | LABORATORY | | | | | | SERVICES, | | | | | | CORE | | + +---------+ + + + | ANION | 10 | 4 - 11 mmol/L | [facility] | | | GAP(ALB | | | LABORATORY | | | CORRECTED) | | | SERVICES, | | | | | | CORE | | + +---------+ + + + | BUN/CREATIN | 22 | 8 - 25 | [facility] | | | INE RATIO | | | LABORATORY | | | | | | SERVICES, | | | | | | CORE | | + +---------+ + + + | GLOBULIN | 5.0 (H) | 2.3 - 3.5 gm/dL | [facility] | | | LVL | | | LABORATORY | | | | | | SERVICES, | | | | | | CORE | | + +---------+ + + + | ALBUMIN/MORGAN | 0.7 (L) | 0.9 - 2.0 | [facility] | | | BULIN RATIO | | | LABORATORY | | | | | | SERVICES, | | | | | | CORE | | + +---------+ + + + + + | Specimen | + + | Blood - Blood | | (substance) | + + + + + | Narrative | Performed At | + + + | GFR is estimated using the MDRD equation recommended by the National | [facility] | | Kidney Disease Education Program. Estimated GFR Interpretive | LABORATORY | | Information: <60 mL/min/1.73 sq m Chronic Kidney | SERVICES, CORE | | Disease <15 mL/min/1.73 sq m Kidney Failure | | | Estimated GFR greater than 60 mL/min/1.73 sq m is of limited clinical | | | value. The MDRD equation is not valid in the following situations: | | | - Patients under 18 years of age - Severe malnutrition or obesity | | | - Vegetarian diet - Rapidly changing kidney function - Amputees, | | | paraplegics, or other muscle-wasting diseases | | + + + + + + + + | Performing | Address | City/State/Zipcode | Phone Number | | Organization | | | | + + + + + | [facility] | [address] | [place] [address] | | | SERVICES, [place] | [address] | | | + + + + + LIPID SET (TRIG, T CHOL, HDL, CALC LDL) (03/30/2019 5:19 PM PST) + +---------+ + + + | Component | Value | Ref Range | Performed | Pathologist | | | | | At | Signature | + +---------+ + + + | CHOLESTEROL | 316 (H) | <200 mg/dL | [facility] | | | (LAB) | | | LABORATORY | | | | | | SERVICES, | | | | | | CORE | | + +---------+ + + + | TRIGLYCERID | 787 (H) | <150 mg/dL | [facility] | | | ES | | | LABORATORY | | | | | | SERVICES, | | | | | | CORE | | + +---------+ + + + | HDL | 49 | >40 mg/dL | [facility] | | | CHOLESTEROL | | | LABORATORY | | | | | | SERVICES, | | | | | | CORE | | + +---------+ + + + | VLDL | 82 (H) | <31 mg/dL | [facility] | | | CHOLESTEROL | | | LABORATORY | | | , | | | SERVICES, | | | CALCULATED | | | CORE | | + +---------+ + + + | NON-HDL | 267 (H) | <130 mg/dL | [facility] | | | CHOLESTEROL | | | LABORATORY | | | | | | SERVICES, | | | | | | CORE | | + +---------+ + + + + + | Specimen | + + | Blood - Blood | | (substance) | + + + + + | Narrative | Performed At | + + + | Cholesterol Reference Range: Desirable: <200 mg/dL | [facility] | | Borderline High: 200 - 239 mg/dL | LABORATORY | | High: >=240 mg/dL non-HDL Cholesterol | SERVICES, CORE | | Reference Range: Optimal: <130 mg/dL | | | Near Optimal: 130-159 mg/dL Borderline High: | | | 160-189 mg/dL High: 190-209 mg/dL | | | Very High: >=210 mg/dL HDL Reference Range: | | | High Risk: <40 mg/dL Desirable: >=60 mg/dL | | | Triglyceride Reference Range: Normal: <150 mg/dL | | | Borderline High: 150-199 mg/dL High: 200-499 | | | mg/dL Very High: >=500 mg/dL | | + + + + + + + + | Performing | Address | City/State/Zipcode | Phone Number | | Organization | | | | + + + + + | [facility] | [address] | [place] [address] | | | SERVICES, [place] | [address] | | | + + + + + documented in this encounter Visit Diagnoses + + | Diagnosis | + + | Type 2 diabetes mellitus with diabetic polyneuropathy, with long-term current use of | | insulin (HCC) - Primary | + + | Atherosclerosis of [place] coronary artery of [place] heart with stable angina pectoris | | (HCC) | + + | Chronic combined systolic and diastolic heart failure (HCC) Chronic combined systolic | | and diastolic heart failure | + + | Major depressive disorder, recurrent episode, moderate (HCC) Major depressive | | disorder, recurrent episode, moderate | + + | Non-small cell cancer of left lung (HCC) | + + | Other chronic postprocedural pain | + + | B12 deficiency Other B-complex deficiencies | + + | Dermatitis Contact dermatitis and other eczema, due to unspecified cause | + + documented in this encounter
--- OUTSIDE RECORDS SUMMARY | ~2019-10-16 | XMS | Encounter Summary ---
Demographics + + + | Address | [address] | | | [place] [address] | + + + | Home Phone | | + + + | Preferred Language | Unknown | + + + | Marital Status | | + + + | Amish Affiliation | PRE | + + + [...] [id number] | | | | | [address] | | + + + + + | Bebe Terrazas | ECON | Unknown | Unavailable | + + + + + | Arden Terrazas | ECON | Unknown | | + + + + + Care Team Providers + +------+ + | Care Tourism Radio Presenter Name | Role | Phone | + +------+ + | Yuriy Cardenas PA-C | PCP | | + +------+ + Encounter Details +--------+ + + + + | Date | Type | Department | Care Team | Description | +--------+ + + + + | 07/12/ | Procedure | Diagnostic Imaging | | | | 2018 | Pass | Services at [facility] | | | | | | [address] | | | | | | [facility]ie [facility] | | | | | | [address] | | | | | | [place], [place] | | | | | | [address] | | | | | | [phone] | | | +--------+ + + + [...]
--- OUTSIDE RECORDS SUMMARY | ~2019-10-16 | XMS | Encounter Summary ---
Demographics + + + | Address | [address] | | | [place] [address] | + + + | Home Phone | | + + + | Preferred Language | Unknown | + + + | Marital Status | | + + + | Episcopal Affiliation | PRE | + + + | Race | White | + + + | Ethnic Group | Not or | + + + Author + + + | Author | [facility] | + + + | Organization | [facility] | + + + | [...] [id number] | | | | | [address] | | + + + + + | Bebe Terrazas | ECON | Unknown | Unavailable | + + + + + | Arden Terrazas | ECON | Unknown | | + + + + + Care Team Providers + +------+ + | Care Shipmaster Name | Role | Phone | + +------+ + | Zora Haddad DO | PCP | | + +------+ + Reason for Visit + + + | Reason | Comments | + + + | Follow-up in | | | outpatient clinic | | + + + Encounter Details +--------+---------+ + + + | Date | Type | Department | Care Team | Description | +--------+---------+ + + + | 04/15/ | Office | Neurosurgery [address] | [place], | Lumbar radiculopathy | | 2013 | Visit | [address] | [facility] | (Primary Dx) | | | | Physician's | [address] | | | | | [place], [address] floor | [place], [place] | | | | | [place], [place] | [address] | | | | | [address] | [phone] | | | | | [phone] | | | +--------+---------+ + + + [...] + + + | Blood Pressure | 145/89 | 04/15/2013 11:38 AM | | | | | PST | | + + + + + | Pulse | 101 | 04/15/2013 11:38 AM | | | | | PST | | + + + + + | Temperature | 36.7 C (98.1 F) | 04/15/2013 11:38 AM | | | | | PST [...] Weight | 100.7 kg (222 lb) | 04/15/2013 11:38 AM | | | | | PST | | + + + + + | Height | - | - | | + + + + + | Body Mass Index | 35.83 | 02/19/2013 1:18 PM | | | | | PST | | + + + + + documented in this encounter Progress Notes Annita Bullock PA - 04/15/2013 3:38 PM PSTS: Ms. Terrazas has returned s/p L3-4 LEFT extreme lateral interbody fusion Bilateral L3-4 foraminotomies, L3-S1 revision posterior ins trumented fusion 12/23/2012. She has had a follow up Lumbar CT today. The patient reports sh grace has been doing well since her last clinic visit and her back and leg pain has significantl y improved. She does note occasional pain and numbness in her proximal Left thigh and groin region. She denies weakness. BP 145/89 | Pulse 101 | Temp 36.7 C (98.1 F) | Wt 100.699 kg (222 lb) | BMI 35.85 kg/(m ^2) O: Gen: 42 y/o Female NAD Incisions: Flank, Lumbar- well healed, no erythema, edema, discharge Neuro: A + O x 3, Motor 5/[address] LUMBAR SPINE WO CONTRAST LUMBAR SPINE CT - WITHOUT IV CONTRAST INDICATION: Neuritis and radiculitis. Status post posterior fusion from L3-S1 with removal of old hardware at L4-S1. COMPARISON: 12/24/2012 TECHNIQUE: LUMBAR SPINE CT - WITHOUT IV CONTRAST LEVELS IMAGED: T12 through S1 are visualized. FINDINGS ALIGNMENT: Lumbar lordosis is maintained. A mild levocurvature may be positional. VERTEBRAE: The vertebral body heights are normally maintained. No fracture. Pedicle screws are at L3-S1. A ghost track is seen medial to the left pedicle screw at the S1 level. Interbody fusion grafts are at L3-L4-L5-S1. Laminectomy defects are at L3-L5. SPINAL CANAL: Streak artifact obscures detail within the inferior aspect of the spinal canal. No stenosis suspected. SOFT TISSUES: No abnormal fluid collection is seen. SACROILIAC JOINTS: There are vacuum phenomena is noted along with left greater than right, mild degenerative change. IMPRESSION: Expected postoperative changes. Attending Radiologists: SALLY MEJIA MD A: 42 y/o Female s/p L3-4 LEFT extreme lateral interbody fusion Bilateral L3-4 foraminotomi es, L3-S1 revision posterior instrumented fusion 12/23/2012. Doing well post operatively. Po st op CT expected post operative findings, good alignment, hardware intact. P: Will have patient follow up on PRN basis at this point. Pt. Instructed to contact clinic should she have any future questions/concerns. [facility] [address] [place] [address] Mailcode: [id number] [place] [address] documented in t his encounter Plan of Treatment Not on filedocumented as of this encounter Visit Diagnoses + + | Diagnosis | + + | Lumbar radiculopathy - Primary Thoracic or lumbosacral neuritis or radiculitis, | | unspecified | + + documented in this encounter"
--- OUTSIDE RECORDS SUMMARY | ~2019-10-16 | XMS | Encounter Summary ---
Demographics + + + | Address | [address] | | | [place] [address] | + + + | Home Phone [...] [id number], [place] | | | | | [address] | | + + + + + | Bebe Terrazas | ECON | Unknown | Unavailable | + + + + + | Arden Hammondi | ECON | Unknown | | + + + + + Care Team Providers + +------+ + | Care Suit Attendant Name | Role | Phone | + +------+ + | Crissy Santoyo PA-C | PCP | | + +------+ + Encounter Details +--------+ + + + + | Date | Type | Department | Care Team | Description | +--------+ + + + + | 06/20/ | Results | [facility] at [facility] | Abdias Barger MD | | | 2012 | Only | [address] | [address] [facility] [facility] | | | | | [place], [place] | [address] [place], | | | | | [address] | [place] [address] | | | | | | [phone] | | | | | | | [...] + | X-RAY SPINE | Routin | 06/20/2012 | | Results for this | | LUMBOSACRAL 3 VIEWS | e | 2:15 PM | | procedure are in the | | | | PDT | | results section. | + +--------+ + + + documented in this encounter Results X-RAY SPINE LUMBOSACRAL 3 VIEWS (06/20/2012 2:15 PM PDT) + + | Specimen | + + | | + + + + + | Narrative | Performed At | + + + | LUMBAR SPINE, 2 views CLINICAL INFORMATION: Back pain. | [facility] | | COMPARISON: 02/02/12. FINDINGS: There is | RADIOLOGY | | mild scoliosis. Postoperative changes status post L4 and L5 | | | laminectomy and L4 through S1 posterolateral fusion are noted similar | | | to prior exam without evidence of associated complications. SI joints | | | are preserved. Soft tissues are unremarkable. IMPRESSION: | | | Status post L4-5 laminectomy and L4 through S1 fusion without | | | interval change. | | + + + + + | Procedure Note | + + | Interface, Lab Results [facility] - 10/25/2016 4:32 PM PDT LUMBAR SPINE, 2 | | viewsCLINICAL INFORMATION: Back pain.COMPARISON: 02/02/12.FINDINGS: There is mild | | scoliosis. Postoperative changes status post L4 and L5 laminectomy and L4 through S1 | | posterolateral fusion are noted similar to prior exam without evidence of associated | | complications. SI joints are preserved. Soft tissues are unremarkable.IMPRESSION: Status | | post L4-5 laminectomy and L4 through S1 fusion without interval change. | | | | | |COMPARISON: 02/02/12. | | | | | | | |FINDINGS: | | | | | | | |There is mild scoliosis. Postoperative changes status post L4 and L5 laminectomy and L4 thr ough S1 posterolateral fusion are noted similar to prior exam without evidence of associated complications. SI joints are | |preserved. Soft tissues are unremarkable. | | | | | | | |IMPRESSION: | | | | | | | |Status post L4-5 laminectomy and L4 through S1 fusion without interval change. | + + + + + + + | Performing | Address | City/State/Zipcode | Phone Number | | Organization | | | | + + + + + | [facility] | [address] | [place], [place] | [phone] | | | | [address] | | + + + + + documented in this encounter Visit Diagnoses Not on filedocumented in this encounter"
--- OUTSIDE RECORDS SUMMARY | ~2019-10-16 | XMS | Encounter Summary ---
Demographics + + + | Address | [address] [facility] [address] | | | [place] [address] | + + + | Home Phone | | + + + | Preferred Language | Unknown | + + + | Marital Status | | + + + | Sikh Affiliation | [id number] | + + + | Race | Unknown | + + + | Ethnic Group | Unknown | + + + Author + + + | Author | [facility] | | | and Juan Joséana | + + + | Organization | [facility] | | | and [place] | + + + | Address | Unknown | + + + | Phone | Unavailable | + + + Support + + + + + | Name | Relationship | Address | Phone | + + + + + | Dustin Terrazas | ECON | [place] | | | | | [address] | | + + + + + | Bebe Terrazas | ECON | [address] | | | | [place], [place] | | | | | [address] | | + + + + + Care Team Providers + +------+ + | Care Electrical Parts Reconditioner Name | Role | Phone | + +------+ + | Ki Senior NP | PCP | | + +------+ + Reason for Visit + + + | Reason | Comments | + + + | Chest Pain | 45 min | + + + Auth/Cert +--------+--------+ + + + + | Status | Reason | Specialty | Diagnoses / | Referred By | Referred To | | | | | Procedures | Contact | Contact | +--------+--------+ + + + + | | | | Diagnoses | | | | | | | ST | | | | | | | elevation | | | | | | | myocardial | | | | | | | infarction | | | | | | | (STEMI), | | | | | | | unspecified | | | | | | | artery (HCC) | | | | | | | | | | | | | | Procedures | | | | | | | CV Cor Angio | | | +--------+--------+ + + + + Encounter Details +--------+ + + + + | Date | Type | Department | Care Team | Description | +--------+ + + + + | 02/13/ | Hospital | [facility] | Danielle Woodalled Beatriz, | ST elevation | | 2017 - | Encounter | MED CTR ICU [address] | MD [address] | myocardial | | | | [place], | [place], [place] | infarction (STEMI), | | 02/15/ | | [place] [address] | [id number] | unspecified artery | | 2017 | | [phone] | | (HCC) (Primary Dx); | | | | | Allan Amato MD | Elevated troponin; | | | | | [address] | ST elevation | | | | | [place], [place] | myocardial | | | | | [address] | infarction involving | | | | | | left anterior | | | | | [place], | descending (LAD) | | | | | MD Maico [address] | coronary artery | | | | | [address] [place] | ([facility]); Type 2 | | | | | [place] [address] | diabetes mellitus | | | | | [phone] | with other specified | | | | | | complication, with | | | | | | long-term current | | | | | | use of insulin | | | | | | ([facility]); Chest pain at | | | | | | rest; Essential | | | | | | hypertension; Acute | | | | | | on chronic systolic | | | | | | CHF (congestive | | | | | | heart failure) ([facility]) | +--------+ + + + + Social [...] + | Blood Pressure | 103/65 | 02/15/2017 7:21 AM | | | | | PST | | + + + + + | Pulse | 84 | 02/15/2017 7:21 AM | | | | | PST | | + + + + + | Temperature | 36.3 C (97.3 F) | 02/15/2017 11:31 AM | | | | | PST | | + + + + + | Respiratory Rate | 18 | 02/15/2017 11:31 AM | | | | | PST [...] | 91.8 kg (202 lb 6.1 | 02/15/2017 6:00 AM | | | | oz) | PST | | + + + + + | Height | 167.6 cm (5' 6") | 02/14/2017 2:03 PM | | | | | PST | | + + + + + | Body Mass Index | 32.67 | 02/14/2017 2:03 PM | | | | | PST | | + + + + + documented in this encounter Functional Status + + + [...] + + documented as of this encounter Discharge Summaries Maico Rodriguez MD - 02/15/2017 12:31 PM PST Physician Discharge Summary Patient Id: Nancy Terrazas [id number] 46 y.o. 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 Terrazas is a 46 y.o. white female with a past medical history significant for coronary ar ivet disease status post PCI 2, Type II diabetes mellitus and hypertension, who had prese nted to the ED with chest pain. An EKG was done immediately; findings were suggestive of an ST elevation UT. Her initial troponin was 3.60. She was referred to Cardiology service for a n emergent left heart cath. She was found to have a thrombus of the proximal LAD stent resul ting in 99% occlusion. Dr. Amato used a balloon to break up the thrombus. The patient was transferred to the unit and kept on a heparin infusion due to embolization of some fragments to the apical LAD. She continued to experience intermittent chest pain requiring narcotic a nalgesic therapy over the next couple of days, but eventually the chest pain resolved. She was referred for an echocardiogram, which revealed decreased left ventricular systolic funct ion. She was noted to have an elevated A1c suggestive of poor glycemic control over the previous 3 months. A fasting lipid panel was also requested and her triglyceride level was signific antly elevated as well. A chest x-ray done on admission was significant for mild pulmonary edema. When a repeat chest x-ray done the following day revealed persistent edema, she was s tarted on scheduled IV Bumex for acute on chronic systolic heart failure. She responded tai y well to this intervention and diuresed 2 L Prior to discharge, she was referred to the diabetic specialist for diabetic education and she was also counseled about tobacco cessation. She is stable for discharge home today. She will require double antiplatelet therapy for t he next 6 months. I started her on lisinopril and Coreg, and increased her atorvastatin to 40 mg daily. She will follow up with her primary care provider within 5-7 days of discharge and with her primary natural gas technician in 2 weeks at [facility]. Consults: Cardiology Significant Diagnostic Studies: labs: see reports, radiology: CXR: pulmonary edema and card iac graphics: ECG: Normal sinus rhythm Low voltage QRS Possible Anterolateral infarct , age undetermined :consider acute/subacute/evolving UT Abnormal ECG No previous ECGs available Confirmed by BREANNA VILLAGOMEZ MD ([id number]) on 02/13/2017 7:10:33 AM Echocardiogram: Summary: 1. Normal left ventricular size and wall thickness. There is a severe hypokinesis of the mid and distal anterior, anteroseptal region, including apex. Overall, left ventricular systolic function is mildly decreased. LVEF is 45-50%. 2. Grade 1 left ventricular diastolic dysfunction. 3. Normal valvular structure. 4. Normal right-sided pressure. 5. Normal IVC with normal respiratory collapse Treatments: IV hydration, analgesia: acetaminophen, Morphine and oxycodone, cardiac meds: l isinopril (Prinivil), carvedilol and bumex, anticoagulation: ASA, Plavix and heparin, insuli n: Lantus and Novolog and procedures: Left heart cath Discharge Exam: Gen Pelon - Middleaged WF seen at the bedside in the unit. She was not acutely ill-looki ng, she was alert, cooperative and in no distress. She was not pale, afebrile and anicteri c Head - Normocephalic, without obvious abnormality Eyes - PERRL, conjunctiva/corneas clear, EOMI ENT - mucous membranes moist, normal appearance of external ears and nose, no pharyngeal erythema, and no oral lesions were appreciated Neck - supple, Lungs - clear to auscultation, no wheezes or rales and unlabored breathing Heart - normal rate, regular rhythm, normal S1, S2, no murmurs, rubs, clicks or gallops Abdomen - soft, non-tender, without masses or organomegaly, nondistended and normal susana l sounds Extremities - no peripheral edema, no clubbing or cyanosis Skin - no rashes, no ecchymoses, no jaundice Neurologic - Alert and oriented x 3. No focal neurological deficits Psychiatric- Appropriate affect and mood Patient Instructions: Discharge Medications New Medications Details carvedilol 3.125 mg tablet Notes to patient: For heart and blood pressure Take 1 tablet by mouth 2 times daily (with breakfast & dinner). aka: COREG clopidogrel 75 mg tablet Take 1 tablet by mouth Daily. aka: PLAVIX Start: 02/16/2017 lisinopril 2.5 MG tablet Notes to patient: For heart and blood pressure Take 1 tablet by mouth Daily. aka: MINDI MARKSRIL Start: 02/16/2017 nitroglycerin 0.4 mg SL tablet Notes to patient: Can take up to 3 times, five minutes apart. Call 911 after second dose! Bottle expires 6 months after opened, or printed expiration date, whichever occurs first. If you take out tablets to put them in something else, they are only good for 2-[address] 1 tablet under the tongue every 5 minutes as needed for Chest pain. aka: NITROSTAT Changed Medications Details atorvaSTATin 40 mg tablet Take 1 tablet by mouth nightly. What changed: medication strength how much to take aka: LIPITOR Unchanged Medications Details aspirin 81 mg EC tablet Notes to patient: For heart health Take 81 mg by mouth Daily. insulin aspart 100 units/mL injection Inject 28 Units under the skin 3 times daily (before meals). aka: novoLOG insulin detemir 100 units/mL injection (vial) Inject 32 Units under the skin 2 times daily. aka: LEVEMIR oxyCODONE 10 MG Tabs Take 10 mg by mouth every 6 hours as needed for Pain. tiZANidine 4 mg tablet Take 4 mg by mouth 3 times daily as needed for Muscle spasms. aka: ZANAFLEX Discontinued Medications EFFIENT 10 mg Tabs Generic drug: prasugrel metoprolol succinate 25 mg 24 hr tablet aka: TOPROL-XL Activity: activity as tolerated Diet: diabetic diet and low fat, low cholesterol diet Wound Care: none needed Follow-up with PCP in 5 days. Signed: Maico Rodriguez MD 02/15/2017 12:31 documented in thi s encounter Discharge Instructions Instructions Monica Reno, PharmD - 02/15/2017 Discharge Instructions for Heart Attack You have had a heart attack (acute myocardial infarction). A heart attack occurs when a ves yaneli that sends blood to your heart suddenly becomes blocked. This causes your heart not to w ork as well as it should. Follow these guidelines for home care and lifestyle changes. Home care Take your medicines exactly as directed. Don t skip doses. Talk with your healthcare p jeanine if your medicines aren't working for you. Together you can come up with another francoise tment plan. Remember that recovery after a heart attack takes time. Plan to rest for at least 4 to 8 weeks while you recover. Then return to normal activity when your doctor says it s OK. Ask your doctor about joining a heart rehabilitation program. This can help strengthen y our heart and lungs and give you more energy and confidence. Tell your doctor if you are feeling depressed. Feelings of sadness are common after a he art attack. But it is important to speak to someone or seek counselingif you are feeling o verwhelmed by these feelings. Call 911 right away if youhavechest pain or pain that goes to your shoulder, neck, o r back.Don't drive yourself to the hospital. Ask your family members to learn CPR. This is an important skill that can save lives whe n it's needed. Learn to take your own blood pressure and pulse. Keep a record of your results. Ask your doctor when you should seek emergency medical attention. He or she will tell you which bloo d pressure reading is dangerous. Lifestyle changes Your heart attack might have been caused by cardiovascular disease. Your healthcare provide r will work with you to make changes to your lifestyle. This will help the heart disease fro m getting worse. These changes will most likely be a combination of diet and exercise. Diet Your healthcare provider will tell you what changes you need to make to your diet. You may need to see a registered dietitian for help with these diet changes. These changes may inclu de: Cutting back on how much fat and cholesterol you eat Cutting back on how much salt (sodium) you eat, especially if you have high blood pressu re Eating more fresh vegetables and fruits Eating lean proteins such as fish, poultry, beans, and peas, and eating less red meat an d processed meats Using low-fat dairy products Using vegetable and nut oils in limited amounts Limiting how many sweets and processed foods such as chips, cookies, and baked goods you eat Limiting how often you eat out. And when you do eat out, making better food choices. Not eating fried or greasy foods, or foods high in saturated fat Exercise Your healthcare provider may tell you to get more exercise if you haven't been physically a ctive. Depending on your case, your provider may recommend that you get moderate to vigorous physical activity for at least 40 minutes each day, and for at least 3 to 4 days each week. A few examples of moderate to vigorous activity include: Walking at a brisk pace, about 3 to 4 miles per hour Jogging or running Swimming or water aerobics Hiking Dancing Martial arts Tennis Riding a bicycle or stationary bike Other changes Your healthcare provider may also recommend that you: Lose weight. If youare overweight or obese, your provider will work with you to lose e xtra pounds. Making diet changes and getting more exercise can help. A good goal is to lose your 10% of your body weight in one year. Stop smoking. Sign up for a stop-smoking program to make it more likely for you to quit for good. You can join a stop-smoking support group. Or ask your doctor about nicotine repla cement products. Learn to manage stress. Stress management techniques to help you deal with stress in you r home and work life. This will help you feel better emotionally and ease the strain on your heart. Follow-up Make a follow-up appointment as directed by our staff. When to seek medical advice Call 911 right awayif you have: Chest pain that goes to your neck, jaw, back, or shoulder Shortness of breath Otherwise, call your doctor immediately if you have: Lightheadedness, dizziness, or fainting Feeling of irregular heartbeat or fast pulse. Date Last Reviewed: 12/03/201519993696-0259 [employer]. [address] [place] [address], [place] [address]. All righ ts reserved. This information is not intended as a substitute for professional medical care. Always follow your healthcare professional's instructions. Risk Factors for Heart Disease A risk factor is something that increases your chance of having heart disease. Heart diseas e (also called coronary artery disease) involves damage to the heart arteries. These blood v essels need to work well to provide the oxygen your heart needs to pump blood to the rest of your body. Things like smoking or high cholesterol levels can damage arteries. You can t control some risk factors, such as age and a family history of heart disease. But there are many things you can control to reduce your risk for heart disease. Unhealthy cholesterol levels Cholesterol is a fat-like substance in your blood. It can build up along the artery marquis. This is called plaque. Over time, plaque narrows the arteries and reduces blood flow to your heart or brain. If a blood clot forms or a piece of the plaque breaks off, it can completel y block the artery and cause a heart attack or stroke. Your risk ofheart disease goes up i f you have high levels of LDL ("bad") cholesterol or triglycerides (another fatty substance that can build up). You re also at risk if you have low HDL cholesterol ("good") cholester ol. HDL helps clear the bad cholesterol away. You're at risk if you have: HDL cholesterol 50 mg/dL or lower; LDL cholesterol 100 mg/dL; or triglycerides of 150 mg/dL or higher. Smoking This is the most important risk factor you can change. Smoking causes inflammation and manoj ges the smooth muscle that lines the arteries making them less flexible. It also raises your blood pressure, causing further damage to the artery lining. Smoking also increases your ri sk that your blood may clot, block an artery, and cause a heart attack or stroke. Smoking al so damages your lungs, which affects the delivery of oxygen to the body. If you smoke, you a re 2 to 4 times more likely to develop coronary artery disease. If you smoke, it's never too late to help your heart. Ask your doctor about nicotine replacement products and smoking ce ssation support. High blood pressure High blood pressure occurs when blood pushes too hard against artery marquis. This causes dam age to the artery marquis and the formation of scar tissue as it heals. This makes the arterie s stiff and weak. Plaque sticks to the scarred tissue narrowing and hardening the arteries. High blood pressure also causes your heart to work harder to get blood out to the body. High blood pressure raises your risk of heart attack, also known as acute myocardial infarction, or AMI, and especially stroke. The brain tissue is especially sensitive to high blood press ure damage. You're at risk if your blood pressure is 120/80 or higher. Negative emotions Chronic stress, pent-up anger, and other negative emotions have been linked to heart diseas e. This occurs because stress increases the levels of a hormone that increase the demand on your heart. Over time, these emotions could raise your heart disease risk. Metabolic syndrome This is caused by a combination of certain risk factors. It puts you at extra high risk of heart disease, stroke, and diabetes. You have metabolic syndrome if you have 3 or more of th e following: low HDL cholesterol; high triglycerides; high blood pressure; high blood sugar; extra weight around the waist. Diabetes Diabetes occurs when you have high levels of sugar (glucose) in your blood. This can damage arteries if not kept under control. Having diabetes also makes you more likely to have a si lent heart attack one without any symptoms. Excess weight Excess weight makes other risk factors, such as diabetes, more likely. Excess weight around the waist or stomach increases your heart disease risk the most. Lack of physical activity When you re not active, you re more likely to develop diabetes, high blood pressure, hi gh cholesterol levels, and excess weight. Most people with heart disease have more than one risk factor. Date Last Reviewed: 05/30/201519999723-5514 [email or web address]. [address] [place] [address], [place] [address]. All righ ts reserved. This information is not intended as a substitute for professional medical care. Always follow your healthcare professional's instructions. Medicines for Heart Disease You will likely take several types of medicine for your heart disease. Some of the medicine s reduce the chance of heart attack and stroke. Others control blood pressure and cholestero l. You may also take medicines for other heart problems, such as heart failure or irregular heart rhythm (arrhythmia). And other health conditions such as diabetes likely also need med icines. Keeping track of your medicines and knowing what each does can get confusing. Medicines for heart disease Many people with heart disease take the 4 medicines shown in this chart. Other common medic masood are listed later. Your doctor or cardiac rehab team can help you look at the types of m edicines that have been prescribed for you. Type of medicine What it does Statin (atorvastatin = Lipitor) Lowers the amount of LDL ("bad') cholesterol and other fats in the blood. This lowers the chance of clogged arteries. May make your levels of HDL ("good") cholesterol better. SUKUMAR inhibitor or angiotensin receptor ethan (ARB) (lisinopril) Lowers blood pressure and eases strain on the heart. This makes it easier for the heart to pump and improves blood flow. Aspirin Helps prevent blood clots. Clots could block an artery. May reduce your risk for a heart attack. Beta-ethan (carvedilol) Lowers blood pressure and slows heart rate. May strengthen the heart's pumping action over time. Other medicines you may take Type of medicine What it does Antiarrhythmic Helps slow down and regulate a fast or irregular heartbeat (arrhythmia) Anticoagulant (clopidogrel = Plavix) Helps reduce the risk that a blood clot will form and block the nathan ry. Antihypertensive Helps lower blood pressure. Calcium channel ethan Helps blood flow more easily through the arteries by widening (dila ting) them. Digoxin Slows heart rate and helps the heart pump more with each beat. Diuretic Helps your body get rid of extra water. This is important if you have high blood p ressure or heart failure. Nitrate (nitroglycerine) Helps prevent and treat angina. Vasodilator Helps blood flow more easily through the arteries. Date Last Reviewed: 06/09/[id number] [email or web address]. [address] [place] [address], [place] [address]. All righ ts reserved. This information is not intended as a substitute for professional medical care. Always follow your healthcare professional's instructions. Diabetes and Heart Disease Take your medicines as directed each day, even if you feel fine. If you have diabetes, you aretwo to four times more likely to have heart disease than maurisio eone without diabetes. This higher risk is due to diabetes, but it is also due to other risk factors for heart disease that happen in people with diabetes. But there s good news. You can helpcontrol your health risks by making some changes in your life. You can take steps to reduce your risk of heart disease by half similar to the risk in people who don't have diabetes. Your main risk factors Three major risk factors for heart disease are high blood sugar, high blood pressure, and h igh levels of lipids. By keeping risk factors under control, you can help keep your heart an d arteries healthy. This may reduce your chances of a heart attack. Blood sugar.High blood sugar can make artery marquis tough and rough. Plaque (waxy mater ial in the blood) can then build up along the artery marquis, making it harder for blood to fl ow through the arteries. Having high blood sugar increases the chances of having high blood pressure and high cholesterol. Blood pressure. When blood pressure is high all the time it causes your heart to work coughlin rder to pump blood. Artery marquis become damaged. This increases the risk for plaque build up . Lipids.The body needs some lipids in the blood to stay healthy. But lipid levels that are too high can damage the artery marquis. Lipids include cholesterol and triglycerides. Ther e are two kinds of cholesterol. LDL ( bad ) cholesterol can damage the arteries. But HDL ( good ) cholesterol helps clear LDL cholesterol from the blood vessels. This helps dina p the arteries healthy. When blood sugar is high, the level of triglycerides in the blood ma y also be high. High blood triglyceride levelscan cause plaque to form. Other risk factors Certain lifestyle factors can increase levels of your blood sugar, blood pressure, and lipi ds. Such increases raise your risk of heart disease: Smokingdamages the lining of your arteries. This allows plaque to build up in the nathan ry marquis. Smoking also constricts (narrows) the arteries. This can raise blood pressure and cause chest pain or angina. Smoking also increases your risk of getting type 2 diabetes. Not being activemakes it harder for your heart to do its work. Inactivity is linked to many other risk factors, such as high blood pressure and poor cholesterol levels. Inactivit y also increases your risk of getting type 2 diabetes. Being overweightmakes it harder for your body to use insulin. It also makes your heart work too hard. Being overweight is also the main contributor to the development of type 2 d iabetes, Changes you can make Following a few simple steps can help keep your risk factors under control. Work with your healthcare team to reach your goals. Quitting smokingcould save your life. Smoking damages the lining of the blood vessels and raises blood pressure. Smoking also affects how your body uses insulin. This makes it coughlin rder to keep blood sugar under control. If you smoke and need help quitting, talk to your althcare team. Testing your blood sugar is the only way to know whether it is under control. Be sure to test your blood sugar yourself. Also get your blood tested in the lab, as directed. Monitoring your blood pressure and lipid levels can help you achieve safe levels. Visit your healthcare team as scheduled. Taking medicines as directed can help control blood sugar, blood pressure, blood clottin g, and/or cholesterol levels. Eating rightcan reduce your risk factors and help you lose weight. Try to limit the am ount of processed or refined carbohydrates you eat at one time. Cut back on your total calor ie intake. Eat foods low in saturated fat and cholesterol. Eat fiber, including vegetables a nd whole grains, and cut down on salt. A dietitian or clinical unit educator can help form a meal plan that works for you even if you are on a low budget. Being activecan help reduce your weight, strengthen your heart, and lower your lipid l evels and blood pressure. Exercise and activity are good for your whole body. [facility] about increasing your activity safely over time. Keeping your appointmentswith your healthcare provider helps you stay healthy. Go in f or checkups and lab tests as scheduled. Date Last Reviewed: 07/21/201519990820-8314 [employer]. [address] [place] [address], [place] [address]. All righ ts reserved. This information is not intended as a substitute for professional medical care. Always follow your healthcare professional's instructions. Hypoglycemia (Low Blood Sugar) Fast-acting sugar includes a cup of nonfat milk. Too little sugar (glucose) in your blood is called hypoglycemia or low blood sugar. Low blo od sugar usually means anything lower than 70 mg/dL. Talk with your healthcare provider abou t your target range and what level is too low for you. Diabetes itself doesn t cause low b lood sugar. But some of the treatments for diabetes, such as pills or insulin, may raise you r risk for it. Low blood sugar may cause you to pass out or have a seizure. So always treat low blood sugar right away, but don't overeat. Special note: Always carry a source of fast-acting sugar and a snack in case of hypoglycemi a. What you may notice If you have low blood sugar, you may have one or more of these symptoms: Shakiness or dizziness Cold, clammy skin or sweating Feelings of hunger Headache Nervousness A hard, fast heartbeat Weakness Confusion or irritability Blurred vision Having nightmares or waking up confused or sweating Numbness or tingling in the lips or tongue What you should do Here are tips to follow if you have hypoglycemia: First check your blood sugar. If it is too low (out of your target range), eat or drink 15 to 20 grams of fast-acting sugar. This may be 3 to 4 glucose tablets, 4 ounces (half a cu p) of fruit juice or regular (nondiet) soda, 8 ounces (1 cup) of fat-free milk, or 1 tablesp oon of honey. Don t take more than this, or your blood sugar may go too high. Wait 15 minutes. Then recheck your blood sugar if you can. If your blood sugar is still too low, repeat the steps above and check your blood sugar again. If your blood sugar still has not returned to your target range, contact your [facility] are provider or seek emergency care. Once your blood sugar returns to target range, eat a snack or meal. Preventing low blood sugar Things you can do include the following: If your condition needs a strict treatment plan,eat your meals and snacks at the same times each day. Don t skip meals! If your treatment plan lets you change when you eat and what you eat, learn how to maritn e the time and dose of your rapid-acting insulin to match this. Ask your healthcare provider if it is safe for you to drink alcohol. Never drink on an e mpty stomach. Take your medicine at the prescribed times. Always carry a source of fast-acting sugar and a snack when you re away from home. Other things to do Additional tips include the following: Carry a medical ID card, a compact USB drive, or wear a medical alert bracelet or neckla ce. It should say that you have diabetes. It should also say what to do if you pass out or h ave a seizure. Make sure your family, friends, and coworkers know the signs of low blood sugar. Tell th em what to do if your blood sugar falls very low and you can t treat yourself. Keep a glucagon emergency kit handy. Be sure your family, friends, and coworkers know ho w and when to use it. Check it regularly and replace the glucagon before it expires. Talk with your health care team about other things you can do to prevent low blood sugar . If you haveunexplained hypoglycemia or hypoglycemia several times, call your healthcare moise solorzano. Date Last Reviewed: 07/03/201519991933-1188 [email or web address]. [address] [place] [address]. All righ ts reserved. This information is not intended as a substitute for professional medical care. Always follow your healthcare professional's instructions. AttachmentsThe following attachments cannot be sent through Care Everywhere.Clopidogrel Bis ulfate Oral tablet ([place])Smoking,Tips for Quitting (Cardiovascular) ([place])Your Heart Risk Action Plan ([place])documented in this encounter Medications at Time of [...] documented as of this encounter Progress Notes Monica Reno, PharmD - 02/15/2017 2:05 PM Judit Terrazas was admitted for STEMI and discharged home today (02/15/2017) Taught AVS education to patient and family. Education was focused on new medications and/or changed medications. I explained indication, how to take, possible side effects, when to co ntact physician, and monitor parameters. The patient was encouraged to make a follow-up appointment with natural gas technician. The patient verbalized understanding of the above and all questions were answered. [facility] will follow-up with patient in one to two business days. Patient was provided with a sultana nciled discharge medication list as part of their AVS instructions. Encouraged patient to sh are medication list with healthcare providers and keep list current. Monica Reno PharmD 02/15/2017 14:05 Yadira Jonas si, MD - 02/14/2017 2:25 PM PST . [facility] H[facility]PITALIST PROGRESS NOTE Patient: Nancy Terrazas : 1970: Age: 46 y.o. MedRec: [id number] PCP: Ki Senior NP Admission date: 02/13/2017 Hospital day # : 1 Physician author: Maico Rodriguez MD Today: 02/14/2017 SUBJECTIVE: Ms Nancy Terrazas is a 46 y.o. white female who is being seen in follow up of a STEMI s/p PCI and balloon intervention of an in-stent thrombus. She is now off the heparin infusio n and is feeling better today. She denies having chest pain or other symptoms. She does coughlin ve chronic LBP and she is requiring PRN oxycodone for it. Reportedly she is also been havin g diarrhea since last night. She had 4 bowel movements overnight and the nurse describes th em as loose rather than watery. A stool sample was sent for C. diff toxin A and B in they w ere both negative. Review of systems: Pertinent positives as noted under subjective. All other systems were reviewed and are neg ative Scheduled Meds: aspirin 81 mg Oral Daily clopidogrel 75 mg Oral Daily insulin glargine 0.3 Units/kg/day Subcutaneous Nightly insulin lispro 0-18 Units Subcutaneous 4x Daily WC and HS Continuous Infusions: nitroglycerin in dextrose Stopped (02/13/17 2205) PRN Meds: Hypoglycemia Management AND POCT Glucose AND dextrose, HYDROmorphone, morphine, nit roglycerin, ondansetron, oxyCODONE VITALS: Temp: 36.6 C (97.9 F), Pulse: 87, Resp: 16, BP: 138/84, SpO2 96 % on room air at flow r ate 2L/min Temp Min: 35.9 C (96.6 F) Max: 36.8 C (98.2 F) Weight: 95.3 kg (210 lb) I/O last 3 completed shifts: In: 4292 [P.O.:0; I.V.:2252] Out: 450 [Urine:450] I/O this shift: In: 105 [I.V.:105] Out: - PHYSICAL EXAM: Gen Pelon - Middleaged WF seen at the bedside in the unit. She was not acutely ill-lookin g, she was alert, cooperative and in no distress. She was not pale, afebrile and anicteric Head - Normocephalic, without obvious abnormality Eyes - PERRL, conjunctiva/corneas clear, EOMI ENT - mucous membranes moist, normal appearance of external ears and nose, no pharyngeal erythema, and no oral lesions were appreciated Neck - supple, Lungs - clear to auscultation, no wheezes or rales and unlabored breathing Heart - normal rate, regular rhythm, normal S1, S2, no murmurs, rubs, clicks or gallops Abdomen - soft, non-tender, without masses or organomegaly, nondistended and normal susana l sounds Extremities - no peripheral edema, no clubbing or cyanosis Skin - no rashes, no ecchymoses, no jaundice Neurologic - Alert and oriented x 3. No focal neurological deficits Psychiatric- Appropriate affect and mood DIAGNOSTIC STUDIES: Available data and images were reviewed personally. Significant results and findings are a ddressed here or in the Assessment and Plan. Recent Results (from the past 24 hour(s)) ECG 12 lead Result Value Ref Range VENTRICULAR RATE EKG 91 BPM ATRIAL RATE 91 BPM P-R INTERVAL 152 ms QRS DURATION 90 ms Q-T INTERVAL 318 ms Q-T INTERVAL (CORRECTED) 391 ms P WAVE AXIS 58 degrees QRS AXIS 39 degrees T AXIS 42 degrees INTERPRETATION TEXT Normal sinus rhythm Low voltage QRS Cannot rule out Anterior infarct (cited on or before 13-FEB-2017) Abnormal ECG When compared with ECG of 13-FEB-2017 08:28, (Unconfirmed) Previous subtle Inferior ST elevation has resolved Confirmed by BREANNA VILLAGOMEZ MD ([id number]) on 02/14/2017 6:39:08 AM ECHO Complete Result Value Ref Range LVEF-TTE TRANSTHORACIC ECHO 45 Troponin I Result Value Ref Range Troponin I 14.52 (HH) <0.06 ng/mL POC Glucose Result Value Ref Range Glucose, POC 276 (H) 70 - 109 mg/dL PTT Result Value Ref Range PTT 30 22 - 36 seconds PTT Result Value Ref Range PTT 28 22 - 36 seconds POC Glucose Result Value Ref Range Glucose, POC 264 (H) 70 - 109 mg/dL CBC with Differential Result Value Ref Range WBC 15.6 (H) 4.0 - 11.0 K/uL RBC 4.23 3.70 - 5.20 M/uL Hgb 12.6 11.5 - 16.0 g/dL Hct 37.6 34.0 - 47.0 % MCV 88.9 83.0 - 101.0 fL MCH 29.8 28.0 - 35.0 pg MCHC 33.6 32.0 - 36.0 g/dL RDW-CV 13.1 <15.0 % Platelet Count 232 140 - 440 K/uL MPV 9.1 fL % Neutrophils 65.3 45.0 - 82.0 % % Lymphocytes 25.1 20.0 - 45.0 % % Monocytes 6.0 4.0 - 12.0 % % Eosinophils 2.9 0.0 - 5.0 % % Basophils 0.7 0.0 - 1.0 % Absolute Neutrophils 10.20 (H) 1.80 - 8.50 K/uL Absolute Lymphocytes 3.90 (H) 0.60 - 3.20 K/uL Absolute Monocytes 0.90 0.00 - 1.00 K/uL Absolute Eosinophils 0.40 0.00 - 0.40 K/uL Absolute Basophils 0.10 0.00 - 0.10 K/uL Basic Metabolic Panel Result Value Ref Range NA 136 136 - 149 mmol/L K 3.8 3.5 - 5.1 mmol/L CL 107 98 - 109 mmol/L CO2 22 (L) 24 - 31 mmol/L ANION GAP 7 3 - 16 mmol/L GLUCOSE 285 (H) 70 - 109 mg/dL BUN 14 7 - 18 mg/dL Creatinine, Serum/Plasma 0.62 0.60 - 1.30 mg/dL eGFR if not >60 >=60 mL/min/1.73m2 CALCIUM 8.5 8.3 - 10.5 mg/dL BUN/CREA 22.6 Troponin I Result Value Ref Range Troponin I 12.56 (HH) <0.06 ng/mL CBC with Differential Result Value Ref Range WBC 14.8 (H) 4.0 - 11.0 K/uL RBC 4.35 3.70 - 5.20 M/uL Hgb 13.0 11.5 - 16.0 g/dL Hct 38.6 34.0 - 47.0 % MCV 88.6 83.0 - 101.0 fL MCH 29.9 28.0 - 35.0 pg MCHC 33.7 32.0 - 36.0 g/dL RDW-CV 13.2 <15.0 % Platelet Count 224 140 - 440 K/uL MPV 8.9 fL % Neutrophils 67.9 45.0 - 82.0 % % Lymphocytes 22.4 20.0 - 45.0 % % Monocytes 6.9 4.0 - 12.0 % % Eosinophils 2.3 0.0 - 5.0 % % Basophils 0.5 0.0 - 1.0 % Absolute Neutrophils 10.00 (H) 1.80 - 8.50 K/uL Absolute Lymphocytes 3.30 (H) 0.60 - 3.20 K/uL Absolute Monocytes 1.00 0.00 - 1.00 K/uL Absolute Eosinophils 0.30 0.00 - 0.40 K/uL Absolute Basophils 0.10 0.00 - 0.10 K/uL Comprehensive Metabolic Panel Result Value Ref Range NA 136 136 - 149 mmol/L K 4.1 3.5 - 5.1 mmol/L CL 107 98 - 109 mmol/L CO2 22 (L) 24 - 31 mmol/L ANION GAP 7 3 - 16 mmol/L GLUCOSE 250 (H) 70 - 109 mg/dL BUN 15 7 - 18 mg/dL Creatinine, Serum/Plasma 0.50 (L) 0.60 - 1.30 mg/dL eGFR if not >60 >=60 mL/min/1.73m2 CALCIUM 8.7 8.3 - 10.5 mg/dL ALBUMIN 2.8 (L) 3.2 - 5.0 g/dL BILIRUBIN TOTAL 0.3 0.1 - 1.5 mg/dL Total protein 6.0 6.0 - 7.8 g/dL AST 91 (H) 10 - 42 U/L ALT 43 6 - 45 U/L ALK PHOS 96 40 - 110 U/L GLOBULIN 3.2 2.1 - 3.8 g/dL Albumin/Globulin ratio 0.9 0.8 - 2.0 BUN/CREA 30.0 Magnesium Result Value Ref Range MG 1.7 (L) 1.8 - 2.5 mg/dL Phosphorus Result Value Ref Range PHOSPHORUS 4.0 2.5 - 4.6 mg/dL Hemoglobin A1C Result Value Ref Range Hemoglobin A1c 10.6 (H) 4.3 - 6.0 % Estimated Average Glucose 258 mg/dL B Type Natriuretic Peptide Result Value Ref Range BNP 174 (H) <100 pg/mL PTT Result Value Ref Range PTT 33 22 - 36 seconds POC Glucose Result Value Ref Range Glucose, POC 224 (H) 70 - 109 mg/dL Troponin I Result Value Ref Range Troponin I 10.82 (HH) <0.06 ng/mL Extra Lavender Top Tube Result Value Ref Range Extra Lavender Top Tube Done POC Glucose Result Value Ref Range Glucose, POC 175 (H) 70 - 109 mg/dL PTT Result Value Ref Range PTT 40 (H) 22 - 36 seconds Clostridium difficile A and B EIA Result Value Ref Range Clostridium Difficile GDH Antigen Negative Negative C. Diff Toxin A/B EIA Negative Negative POC Glucose Result Value Ref Range Glucose, POC 180 (H) 70 - 109 mg/dL @3daylab@ Lab Results Component Value Date CREA 0.50 (L) 02/14/2017 BUN 15 02/14/2017 NA 136 02/14/2017 K 4.1 02/14/2017 CL 107 02/14/2017 CO2 22 (L) 02/14/2017 Lab Results Component Value Date WBC 14.8 (H) 02/14/2017 HGB 13.0 02/14/2017 HCT 38.6 02/14/2017 MCV 88.6 02/14/2017 PLT 224 02/14/2017 Lab Results Component Value Date TROPONIN 10.82 (HH) 02/14/2017 Lab Results Component Value Date INR 0.82 (L) 02/13/2017 PROTIME 11.2 (L) 02/13/2017 Xr Chest Ap Portable Result Date: 02/14/2017 CLINICAL INFORMATION: Follow up on Pulmonary edema. COMPARISON: 02/13/2017. FINDINGS: James ble frontal chest radiograph Lungs: Stable interstitial thickening throughout the lungs but most prominent in the perihilar regions. No focal airspace consolidation. No pleural effus ion or pneumothorax. Heart/mediastinum: Cardiac silhouette is of normal size. No mediastinal widening. Bones: No acute osseous abnormality appreciated. IMPRESSION - Overall unchanged a ppearance of probable mild pulmonary edema. Dictated and Signed by: Abiel Meza MD Elec tronically signed: 02/14/2017 8:58 AM Xr Chest Ap Portable Result Date: 02/13/2017 CLINICAL INFORMATION: CHEST PAIN. COMPARISON: None available. FINDINGS: Portable frontal ch est radiograph Lungs: Mild reticular predominant opacities scattered throughout the lungs. No pleural effusion or pneumothorax. Heart/mediastinum: Cardiac silhouette is of normal size . No mediastinal widening. Bones: No acute osseous abnormality appreciated. IMPRESSION - Ret icular predominant opacities throughout the lungs, may represent pulmonary edema or atypical infectious process. Dictated and Signed by: Abiel Meza MD Electronically signed: 02/01 8:58 AM Echo 02/13/2017: Summary: 1. Normal left ventricular size and wall thickness. There is a severe hypokinesis of the mid and distal anterior, anteroseptal region, including apex. Overall, left ventricular systolic function is mildly decreased. LVEF is 45-50%. 2. Grade 1 left ventricular diastolic dysfunction. 3. Normal valvular structure. 4. Normal right-sided pressure. 5. Normal IVC with normal respiratory collapse. ASSESSMENT and PLAN: Active Hospital Problems Diagnosis *ST elevation myocardial infarction involving left anterior descending (LAD) coronary a rtery Chest pain at rest Elevated troponin Type 2 diabetes mellitus with other specified complication Essential hypertension Resolved Hospital Problems Diagnosis Date Noted Date Resolved No resolved problems to display. 1. Acute STEMI: S/p PCI and balloon intervention, POD#1. Off IV heparin and nitroglycerin n ow. Monitor vital signs with telemetry. Continue aspirin and plavix as recommended by cardi ology service. Fasting lipid panel in am tomorrow. Echo report reviewed 2. Type II diabetes mellitus,uncontrolled: Her A1c is over 10 with an estimated average blo od glucose level of 258. Her blood glucose levels are beginning to trend down now. continu e SSI per high dose protocol and follow glucometer readings. We will make adjustments to her regimen as indicated. Diabetic education has also been requested 3. Essential hypertension: Her blood pressure readings are pretty stable and well controlle d. Continue with her usual BP medications and follow the blood pressure readings closely 4. Leucocytosis: WBC is slowly trending down. I will get a UA with microscopy to rule out the possibility of an acute cystitis. 5. Acute on chronic systolic heart failure: Findings on her echocardiogram done yesterday r evealed a decreased EF of 45-50%. A chest x-ray done today reveals persistent pulmonary yaritza ma so I believe that she probably has decompensated systolic heart failure. I will start he r on scheduled Bumex and we'll monitor her input and output closely over the next 24 hours. I will also start her on a low dose of lisinopril due to the decreased EF. 6. VTE prophylaxis: She'll be started on Lovenox subcutaneous daily starting tomorrow. Con tinue with SCDs in the meantime 7. Discharge planning: she should be able to discharge home within the next couple of days if clinically stable and cleared by cardiology service, and no further workup or interventi on is anticipated Maico Rodriguez 02/14/2017 14:26 [facility] Allan Gipson MD - 02/14/2017 10:06 AM PST PATIENT NAME: Nancy Terrazas : 1970: AGE: 46 y.o. ADMISSION DATE: 02/13/2017 HOSPITAL DAY NUMBER: 1 PRIMARY CARE: Ki Senior NP CONSULTING PROVIDER: Sachin Amato MD CARDIOLOGY PROGRESS NOTE DATE OF SERVICE: 02/14/17 SUBJECTIVE: No more chest pain or any other cardiac c/o. CURRENT SCHEDULED MEDS: aspirin 81 mg Oral Daily clopidogrel 75 mg Oral Daily insulin glargine 0.3 Units/kg/day Subcutaneous Nightly insulin lispro 0-18 Units Subcutaneous 4x Daily WC and HS IV INFUSIONS: heparin infusion 1,200 Units/hr (02/14/17 5301) nitroglycerin in dextrose Stopped (02/13/172204) OBJECTIVE: PHYSICAL EXAM Latest VS: BP 114/80 | Pulse 84 | Temp 36.6 C (97.9 F) (Oral) | Resp 18 | Wt 95 kg (209 lb 7 oz) | LMP 02/13/2002 Comment: ablation 2001 | SpO2 94% | ? No Admit Weight: Weight: 95.3 kg (210 lb) Current weight: Weight: 95 kg (209 lb 7 oz) Vital sign ranges for last 24hrs: Input and output for last 24hrs: Temp: [35.9 C (96.6 F)-36.8 C (98.2 F)] 36.6 C (97.9 F) Pulse: [84-95] 84 Resp: [14-22] 18 BP: (94-133)/(62-94) 114/80 SpO2 Av.3 % Min: 92 % Max: 96 % Flow (L/min) Av Min: 2 Max: 2 02/12 1901 - 02/14 0700 In: 4292 [P.O.:2040; I.V.:2252] Out: 450 [Urine:450] Constitutional General appearance: no acute distress Cardiovascular Palp/Percussion: PMI in 5th ICS at MCL; no lifts, thrills, palp S3 or S4. Auscultation: normal S1 S2; no gallop or rub or click Murmur: none Carotid arteries: pulses 2+, symmetric, no bruits Abdominal aorta: no enlargement or bruits Pedal pulses: pulses 2+, symmetric Peripheral circulation: no cyanosis, clubbing, edema, or varicosities Gastrointestinal Abdomen: soft, non-tender Liver and spleen: no enlargement Mental Status/Neurological Orientation: oriented to time, place, and person Affect/Mood: no depression, anxiety, or agitation Respiratory Respiratory effort: no intercostal retractions or use of accessory muscles Auscultation: no rales, rhonchi, or wheezes LABS Recent Results (from the past 24 hour(s)) PTT Collection Time: 02/13/17 11:35 Result Value Ref Range PTT 38 (H) 22 - 36 seconds POC Glucose Collection Time: 02/13/17 11:49 Result Value Ref Range Glucose, POC 330 (H) 70 - 109 mg/dL ECG 12 lead Collection Time: 02/13/17 14:30 Result Value Ref Range VENTRICULAR RATE EKG 91 BPM ATRIAL RATE 91 BPM P-R INTERVAL 152 ms QRS DURATION 90 ms Q-T INTERVAL 318 ms Q-T INTERVAL (CORRECTED) 391 ms P WAVE AXIS 58 degrees QRS AXIS 39 degrees T AXIS 42 degrees INTERPRETATION TEXT Normal sinus rhythm Low voltage QRS Cannot rule out Anterior infarct (cited on or before 13-FEB-2017) Abnormal ECG When compared with ECG of 13-FEB-2017 08:28, (Unconfirmed) Previous subtle Inferior ST elevation has resolved Confirmed by DAHLIA ADLER, BREANNA ([id number]) on 02/14/2017 6:39:08 AM ECHO Complete Collection Time: 02/13/17 15:00 Result Value Ref Range LVEF-TTE TRANSTHORACIC ECHO 45 Troponin I Collection Time: 02/13/17 17:00 Result Value Ref Range Troponin I 14.52 (HH) <0.06 ng/mL POC Glucose Collection Time: 02/13/17 17:03 Result Value Ref Range Glucose, POC 276 (H) 70 - 109 mg/dL PTT Collection Time: 02/13/17 19:08 Result Value Ref Range PTT 30 22 - 36 seconds PTT Collection Time: 02/13/17 20:45 Result Value Ref Range PTT 28 22 - 36 seconds POC Glucose Collection Time: 02/13/17 20:45 Result Value Ref Range Glucose, POC 264 (H) 70 - 109 mg/dL CBC with Differential Collection Time: 02/14/17 0:02 Result Value Ref Range WBC 15.6 (H) 4.0 - 11.0 K/uL RBC 4.23 3.70 - 5.20 M/uL Hgb 12.6 11.5 - 16.0 g/dL Hct 37.6 34.0 - 47.0 % MCV 88.9 83.0 - 101.0 fL MCH 29.8 28.0 - 35.0 pg MCHC 33.6 32.0 - 36.0 g/dL RDW-CV 13.1 <15.0 % Platelet Count 232 140 - 440 K/uL MPV 9.1 fL % Neutrophils 65.3 45.0 - 82.0 % % Lymphocytes 25.1 20.0 - 45.0 % % Monocytes 6.0 4.0 - 12.0 % % Eosinophils 2.9 0.0 - 5.0 % % Basophils 0.7 0.0 - 1.0 % Absolute Neutrophils 10.20 (H) 1.80 - 8.50 K/uL Absolute Lymphocytes 3.90 (H) 0.60 - 3.20 K/uL Absolute Monocytes 0.90 0.00 - 1.00 K/uL Absolute Eosinophils 0.40 0.00 - 0.40 K/uL Absolute Basophils 0.10 0.00 - 0.10 K/uL Basic Metabolic Panel Collection Time: 02/14/17 0:02 Result Value Ref Range NA 136 136 - 149 mmol/L K 3.8 3.5 - 5.1 mmol/L CL 107 98 - 109 mmol/L CO2 22 (L) 24 - 31 mmol/L ANION GAP 7 3 - 16 mmol/L GLUCOSE 285 (H) 70 - 109 mg/dL BUN 14 7 - 18 mg/dL Creatinine, Serum/Plasma 0.62 0.60 - 1.30 mg/dL eGFR if not >60 >=60 mL/min/1.73m2 CALCIUM 8.5 8.3 - 10.5 mg/dL BUN/CREA 22.6 Troponin I Collection Time: 02/14/17 0:02 Result Value Ref Range Troponin I 12.56 (HH) <0.06 ng/mL CBC with Differential Collection Time: 02/14/17 3:04 Result Value Ref Range WBC 14.8 (H) 4.0 - 11.0 K/uL RBC 4.35 3.70 - 5.20 M/uL Hgb 13.0 11.5 - 16.0 g/dL Hct 38.6 34.0 - 47.0 % MCV 88.6 83.0 - 101.0 fL MCH 29.9 28.0 - 35.0 pg MCHC 33.7 32.0 - 36.0 g/dL RDW-CV 13.2 <15.0 % Platelet Count 224 140 - 440 K/uL MPV 8.9 fL % Neutrophils 67.9 45.0 - 82.0 % % Lymphocytes 22.4 20.0 - 45.0 % % Monocytes 6.9 4.0 - 12.0 % % Eosinophils 2.3 0.0 - 5.0 % % Basophils 0.5 0.0 - 1.0 % Absolute Neutrophils 10.00 (H) 1.80 - 8.50 K/uL Absolute Lymphocytes 3.30 (H) 0.60 - 3.20 K/uL Absolute Monocytes 1.00 0.00 - 1.00 K/uL Absolute Eosinophils 0.30 0.00 - 0.40 K/uL Absolute Basophils 0.10 0.00 - 0.10 K/uL Comprehensive Metabolic Panel Collection Time: 02/14/17 3:04 Result Value Ref Range NA 136 136 - 149 mmol/L K 4.1 3.5 - 5.1 mmol/L CL 107 98 - 109 mmol/L CO2 22 (L) 24 - 31 mmol/L ANION GAP 7 3 - 16 mmol/L GLUCOSE 250 (H) 70 - 109 mg/dL BUN 15 7 - 18 mg/dL Creatinine, Serum/Plasma 0.50 (L) 0.60 - 1.30 mg/dL eGFR if not >60 >=60 mL/min/1.73m2 CALCIUM 8.7 8.3 - 10.5 mg/dL ALBUMIN 2.8 (L) 3.2 - 5.0 g/dL BILIRUBIN TOTAL 0.3 0.1 - 1.5 mg/dL Total protein 6.0 6.0 - 7.8 g/dL AST 91 (H) 10 - 42 U/L ALT 43 6 - 45 U/L ALK PHOS 96 40 - 110 U/L GLOBULIN 3.2 2.1 - 3.8 g/dL Albumin/Globulin ratio 0.9 0.8 - 2.0 BUN/CREA 30.0 Magnesium Collection Time: 02/14/17 3:04 Result Value Ref Range MG 1.7 (L) 1.8 - 2.5 mg/dL Phosphorus Collection Time: 02/14/17 3:04 Result Value Ref Range PHOSPHORUS 4.0 2.5 - 4.6 mg/dL Hemoglobin A1C Collection Time: 02/14/17 3:04 Result Value Ref Range Hemoglobin A1c 10.6 (H) 4.3 - 6.0 % Estimated Average Glucose 258 mg/dL B Type Natriuretic Peptide Collection Time: 02/14/17 3:04 Result Value Ref Range BNP 174 (H) <100 pg/mL PTT Collection Time: 02/14/17 3:04 Result Value Ref Range PTT 33 22 - 36 seconds POC Glucose Collection Time: 02/14/17 6:34 Result Value Ref Range Glucose, POC 224 (H) 70 - 109 mg/dL Troponin I Collection Time: 02/14/17 8:07 Result Value Ref Range Troponin I 10.82 (HH) <0.06 ng/mL Extra Lavender Top Tube Collection Time: 02/14/17 8:10 Result Value Ref Range Extra Lavender Top Tube Done POC Glucose Collection Time: 02/14/17 8:22 Result Value Ref Range Glucose, POC 175 (H) 70 - 109 mg/dL ECG: Anterior Scar ASSESSMENT: CAD--post LAD PCI PLAN: 1. No more chest pain. 2. Echo shows near normal EF with anterior WM defect. 3. No CHF or arrhythmias. 4. May go home tomorrow with f/u with her natural gas technician at [facility] in 1-2 wks and on Plavix 7 5/d and ASA 81/d. Portions of this report were transcribed using voice recognition software. Every effort wa s made to ensure accuracy; however, inadvertent computerized procurement buyer errors may be pre sent. Electronically signed by: Sachin Amato MD 02/14/2017 10:06 Josette Cooney, PharmD - 02/13/2017 7:24 PM PST PHARMACY SERVICES: ADMISSION MEDICATION REVIEW Nancy Terrazas is a 46 y.o. female admitted on 02/13/17. Patient is a reliable historian. Location of Patient when reviewed: ED X Medical Floor Patient s prior to admit medication and over the counter (OTC) medications/herbal supplem ents list obtained from: X Verbal interview X Patient able to recall SOME Name, strength, and directions X Pharmacy list names: [facility] [place] [facility] FIELD LOGISTICS COORDINATOR (Prescription Monitoring Program) X [employer] insurance reported information X Care Everywhere X Outside Information Vaccines up to date? Yes No Unsure Influenza X Pneumococcal X Tdap X Shingles X Noted medications discrepancies or medication-related issues: Medication added: Medication: Prior to Admission Sig: Atorvastatin 10mg 1 tab by mouth nightly Prasurgrel 10mg 1 tab by mouth daily Insulin detemir 100 units/ml 32 units under the skin twice daily Metoprolol Succinate 25mg 1 tab by mouth daily Patient states she is taking metoprolol as prescribed, pharmacy has not filled this medication in over 6 months (beginning of 2016) Tizanidine 4mg 1 tab by mouth three times daily as needed for muscle spasm Aspirin 81mg 1 tab by mouth daily Removed therapy: Medication: Prior to Admission Sig: Reason for Removal: Insulin detemir 32 units twice Incorrect - changed to correct strength and sig Medication review performed and electronically signed by Jessy Goetz, Spray Applicator 02/13 19:16 Josette Silverman 02/13/2017 19:24 documented in this encounter H&P Notes Maico Rodriguez MD - 02/13/2017 12:46 PM PST [facility] SERVICES HISTORY AND PHYSICAL Pt. Name/Age/: Nancy Terrazas 46 y.o. 1970 Date of admission: 02/13/2017 Admitting Physician: Maico Rodriguez MD Primary Care Provider: Ki Senior NP CHIEF COMPLAINT: Chest pain x two days HISTORY OF PRESENT ILLNESS: This is a 46 y.o. white female with a past medical history significant for Type II diabetes mellitus and hypertension for about 8 years who presented to the ED this morning with the above complaints. The history was obtained from the patient herself and she is a fairly good historian. She says that her bouts 2 days ago on Saturday evening she started experiencing some chest pain while she was sleeping but was v masood mild. After she got up and consider doing her usual activities she started noticing jamel t she was having exertional chest pain. The pain was initially intermittent physiology. At tention to it because it was mild. She is able to go through the whole of yesterday without significant pain. However yesterday evening and presented again very mildly but then start ed to escalate and became persistent. Very early this morning he started experiencing press ure-like pain which radiated down her upper inner arm up to her elbow. He was accompanied b y some shortness of breath, some nausea and generalized malaise. She also felt cold and cla mmy. She says that the pain was about a 10 out of a 10 at that point in time. She took up to 3 tablets of nitroglycerin at home before she came to the emergency room. Then subsided somewhat after the second dose of nitroglycerin but then started escalating again so she dec ided to call the EMT to bring her to the emergency room. Her initial troponin was 3.60 and a EKG on findings were consistent with an acute ST elevat ion UT. She was immediately referred to Cardiology service for an emergent left heart cath. She was found to have 99% occlusion thrombus of the proximal LAD stent which was intervened upon. The patient was transferred to the unit and kept on the heparin infusion due to embol ization of some fragments to the apical LAD. At the time of my visit the patient denied hav ing any significant chest pain as she had just received something for pain. The patient adm itted that she still continues to smoke even though she has cut down on the number of cigare ttes she smokes per day. I educated her on the high risk for recurrent cardiac events if sh e were to continue to smoke. She verbalized understanding of this information and said she would do her best to quit with the help of her primary care provider. PAST MEDICAL and SURGICAL HISTORY: History reviewed. No pertinent past medical history. History reviewed. No pertinent surgical history. S/p PCI x 2 with stent placements in the LAD. She had her first UT in June 2013 and a sten t was placed in the LAD. The second PCI was in 06/2015 per the patient, but she may have jose nt 2016 as I see that she had a cath done in [facility] in July 2016. The LAD stent was blocked? And she said another stent was placed. FAMILY HISTORY: Family history is significant for type II diabetes mellitus SOCIAL HISTORY: reports that she has been smoking. She has never used smokeless tobacco. REVIEW OF SYSTEMS: Pertinent positives as noted in HPI. All other systems were reviewed and are negative HOME MEDICATIONS: Current Discharge Medication List CONTINUE these medications which have NOT CHANGED Details insulin aspart (NOVOLOG) 100 units/mL injection Inject 28 Units under the skin 3 times mohini y (before meals). Insulin Detemir (LEVEMIR SC) Inject 32 Units under the skin 2 times daily. Scheduled Meds: [START ON 02/14/2017] aspirin 81 mg Oral Daily [START ON 02/14/2017] clopidogrel 75 mg Oral Daily insulin glargine 0.3 Units/kg/day Subcutaneous Nightly sodium chloride 0.9% 6 mL/kg Intravenous Once Continuous Infusions: heparin infusion 700 Units/hr (02/13/17 0140) nitroglycerin in dextrose 5 mcg/min (02/13/17 8692) PRN Meds: Hypoglycemia Management AND POCT Glucose AND dextrose, heparin, HYDROmorphone, morp fior, nitroglycerin ALLERGIES: Allergies Allergen Reactions Codeine Sulfa Antibiotics Latex Sensitivity VITAL SIGNS: Temp: 36 C (96.8 F), Pulse: 95, Resp: 19, BP: 104/62, SpO2 92 % on room air at flow rat e 2L/min Temp Min: 34 C (93.2 F) Max: 36 C (96.8 F) Weight: 95.3 kg (210 lb) PHYSICAL EXAMINATION: Gen Pelon - Middleaged WF seen at the bedside in the unit. She was not acutely ill-lookin g, she was alert, cooperative and in no distress. She was not pale, afebrile and anicteric Head - Normocephalic, without obvious abnormality Eyes - PERRL, conjunctiva/corneas clear, EOMI ENT - mucous membranes moist, normal appearance of external ears and nose, no pharyngeal erythema, and no oral lesions were appreciated Neck - supple, Lungs - clear to auscultation, no wheezes or rales and unlabored breathing Heart - normal rate, regular rhythm, normal S1, S2, no murmurs, rubs, clicks or gallops Abdomen - soft, non-tender, without masses or organomegaly, nondistended and normal susana l sounds Extremities - no peripheral edema, no clubbing or cyanosis Skin - no rashes, no ecchymoses, no jaundice Neurologic - Alert and oriented x 3. No focal neurological deficits Psychiatric- Appropriate affect and mood DIAGNOSTIC STUDIES: Available data and images were reviewed personally. Significant results and findings are a ddressed here or in the Assessment and Plan. Recent Results (from the past 24 hour(s)) ECG 12 lead Result Value Ref Range VENTRICULAR RATE EKG 88 BPM ATRIAL RATE 88 BPM P-R INTERVAL 146 ms QRS DURATION 78 ms Q-T INTERVAL 342 ms Q-T INTERVAL (CORRECTED) 413 ms P WAVE AXIS 62 degrees QRS AXIS 20 degrees T AXIS 68 degrees INTERPRETATION TEXT Normal sinus rhythm Low voltage QRS Possible Anterolateral infarct , age undetermined :consider acute/subacute/evolving UT Abnormal ECG No previous ECGs available Confirmed by DAHLIA ADLER, BREANNA ([id number]) on 02/13/2017 7:10:33 AM CBC with Differential Result Value Ref Range WBC 15.1 (H) 4.0 - 11.0 K/uL RBC 4.95 3.70 - 5.20 M/uL Hgb 15.0 11.5 - 16.0 g/dL Hct 43.5 34.0 - 47.0 % MCV 87.9 83.0 - 101.0 fL MCH 30.2 28.0 - 35.0 pg MCHC 34.4 32.0 - 36.0 g/dL RDW-CV 13.3 <15.0 % Platelet Count 291 140 - 440 K/uL MPV 8.6 fL % Neutrophils 57.5 45.0 - 82.0 % % Lymphocytes 31.9 20.0 - 45.0 % % Monocytes 7.2 4.0 - 12.0 % % Eosinophils 2.3 0.0 - 5.0 % % Basophils 1.1 (H) 0.0 - 1.0 % Absolute Neutrophils 8.70 (H) 1.80 - 8.50 K/uL Absolute Lymphocytes 4.80 (H) 0.60 - 3.20 K/uL Absolute Monocytes 1.10 (H) 0.00 - 1.00 K/uL Absolute Eosinophils 0.30 0.00 - 0.40 K/uL Absolute Basophils 0.20 (H) 0.00 - 0.10 K/uL Comprehensive Metabolic Panel Result Value Ref Range NA 137 136 - 149 mmol/L K 4.3 3.5 - 5.1 mmol/L CL 103 98 - 109 mmol/L CO2 22 (L) 24 - 31 mmol/L ANION GAP 12 3 - 16 mmol/L GLUCOSE 329 (H) 70 - 109 mg/dL BUN 18 7 - 18 mg/dL Creatinine, Serum/Plasma 0.78 0.60 - 1.30 mg/dL eGFR if not >60 >=60 mL/min/1.73m2 CALCIUM 9.5 8.3 - 10.5 mg/dL ALBUMIN 3.1 (L) 3.2 - 5.0 g/dL BILIRUBIN TOTAL 0.2 0.1 - 1.5 mg/dL Total protein 6.6 6.0 - 7.8 g/dL AST 30 10 - 42 U/L ALT 25 6 - 45 U/L ALK PHOS 115 (H) 40 - 110 U/L GLOBULIN 3.5 2.1 - 3.8 g/dL Albumin/Globulin ratio 0.9 0.8 - 2.0 BUN/CREA 23.1 Troponin I Result Value Ref Range Troponin I 0.05 <0.06 ng/mL D-Dimer Result Value Ref Range D-DIMER, QUANTITATIVE 0.44 <=0.50 ug/ml Protime INR Result Value Ref Range Protime 11.2 (L) 11.3 - 13.9 seconds INR 0.82 (L) 0.90 - 1.10 PTT Result Value Ref Range PTT 23 22 - 36 seconds ECG 12 lead Result Value Ref Range VENTRICULAR RATE EKG 104 BPM ATRIAL RATE 104 BPM P-R INTERVAL 140 ms QRS DURATION 84 ms Q-T INTERVAL 346 ms Q-T INTERVAL (CORRECTED) 454 ms P WAVE AXIS 65 degrees QRS AXIS 22 degrees T AXIS 2 degrees INTERPRETATION TEXT Poor data quality, interpretation may be adversely affected Age and gender specific ECG analysis Sinus tachycardia with frequent premature ventricular complexes in a pattern of bigeminy Low voltage QRS Anterior infarct (cited on or before 13-FEB-2017) ACUTE UT / STEMI Abnormal ECG When compared with ECG of 13-FEB-2017 05:12, (Unconfirmed) Significant changes have occurred Confirmed by DAHLIA ADLER, BREANNA ([id number]) on 02/13/2017 7:11:33 AM Extra Blue Top Tube Result Value Ref Range Extra Blue Top Tube Done Extra Lavender Top Tube Result Value Ref Range Extra Lavender Top Tube Done Extra Gold Top Tube Result Value Ref Range EGDT Done Extra Green Top Tube Result Value Ref Range Extra Green Top Tube Done Extra Green Top Tube Result Value Ref Range Extra Green Top Tube Done Extra Blood Bank Tube Result Value Ref Range Hold BB Hold Specimen POC ACT Result Value Ref Range Activated Clotting Time, POC 258 (H) 125 - 175 second(s) ECG 12 lead Result Value Ref Range INTERPRETATION TEXT Not Confirmed Troponin I Result Value Ref Range Troponin I 3.60 (HH) <0.06 ng/mL Extra Lavender Top Tube Result Value Ref Range Extra Lavender Top Tube Done PTT Result Value Ref Range PTT 38 (H) 22 - 36 seconds POC Glucose Result Value Ref Range Glucose, POC 330 (H) 70 - 109 mg/dL Xr Chest Ap Portable Result Date: 02/13/2017 CLINICAL INFORMATION: CHEST PAIN. COMPARISON: None available. FINDINGS: Portable frontal ch est radiograph Lungs: Mild reticular predominant opacities scattered throughout the lungs. No pleural effusion or pneumothorax. Heart/mediastinum: Cardiac silhouette is of normal size . No mediastinal widening. Bones: No acute osseous abnormality appreciated. IMPRESSION - Ret icular predominant opacities throughout the lungs, may represent pulmonary edema or atypical infectious process. Dictated and Signed by: Abiel Meza MD Electronically signed: 02/01 8:58 AM EKG: Normal sinus rhythm Anterior infarct (cited on or before 13-FEB-2017) Abnormal ECG When compared with ECG of 13-FEB-2017 05:28, premature ventricular complexes are no longer present Serial changes of evolving Anterior infarct present. ASSESSMENT and PLAN: Active Hospital Problems Diagnosis *ST elevation myocardial infarction involving left anterior descending (LAD) coronary a rtery Chest pain at rest Elevated troponin Type 2 diabetes mellitus with other specified complication Essential hypertension Resolved Hospital Problems Diagnosis Date Noted Date Resolved No resolved problems to display. 1. Acute STEMI: S/p PCI and balloon intervention. Continue with IV heparin and nitroglycer in per cardiology service. Monitor vital signs with telemetry. I have asked the pharmacist to switch nitroglycerin infusion from a dextrose base to a saline base due to her elevated blood glucose levels. Continue other cardiac meds as recommended by cardiology service. Check a fasting lipid panel in am tomorrow and follow up on the echo report once available 2. Type II diabetes mellitus, not stated as uncontrolled: continue SSI per high dose protoc ol and follow glucometer readings. We will make adjustments to her regimen as indicated. Adriana ck an A1c in am tomorrow 3. Essential hypertension: we will restart her on her usual BP medications and follow the t rend 4. Leucocytosis: Her elevated WBC is likely due to stress rather than infection. Follow wbc trend over the next couple of days 5. Pulmonary edema: probably related to the acute UT and was possibly a anginal equivalent (flash pulmonary edema). I will repeat a CXR tomorrow and continue to follow her clinically . She may require gentle diuresis. I will order an Echo to evaluate her LVSF. Further recommendations regarding Ms. Terrazas would depend on her response to the current int erventions, on the results of further testing and/or imaging, and on recommendations from [facility] cardi[facility] service. DVT Prophylaxis heparin and SCD's while in bed Code Status Full Code. [facility] Documentation I expect this patient will be hospitalized for greater than 2-midnights and expect the post -hospital plan to be discharge to home or to an adult foster home. Total of 45 minutes were required to complete the admission process. Reviewed and summariz ed past medical records. Medical Decisionmaker: Patient Electronically signed by: Maico Rodriguez MD 02/13/2017 12:46 [facility] Portions of this chart may have been created with [employer] voice recognition software. Occasi onal wrong-word or sound-alike substitutions may have occurred due to the inherent hancock itations of voice recognition software. Please read the chart carefully and recognize, using context, where these substitutions have occurred likely to be due to stress, but we will check a UA just to be sure she does not have an inf documented in this encounter Procedure Notes Allan Amato MD - 02/13/2017 7:55 AM PSTAssociated Order(s): CV CARDIAC PROCEDURE CARDIAC CATHETERIZATION AND CORONARY INTERVENTION REPORT PATIENT NAME: Nancy Terrazas DATE OF : 1970 DATE OF PROCEDURE: 02/13/2017 PRIMARY CARE PROVIDER: Ki Senior NP AUTOMATIC MACHINE ATTENDANT: Allan Amato MD. PRE-PROCEDURE DIAGNOSIS: Possible Anterior STEMI POST-PROCEDURE DIAGNOSIS: Same PROCEDURES PERFORMED: Coronary angiography With moderate sedation Left Heart Catheterization With moderate sedation Coronary intervention With moderate sedation. DESCRIPTION OF PROCEDURE: Please refer to the computer log entry form for precise details. I reviewed the patient s pre-sedation assessment and vital signs, supervised and directed sedation from administrat ion to patient stabilization for recovery. Hemostasis was obtained using a compression gordo ce. Moderate sedation ended with hemostasis, specific times found in log but duration was r oughly 60 minutes. There were no immediate complications. Estimated blood loss was 20 cc. Coronary Angiography: Following informed consent moderate sedation was administered then the patient's R wrist a nd both groins were prepped and draped. The radial site was anesthetized with 1% lidocaine. A 6-Italian sheath was inserted into the radial artery. The above procedures were performe d using 5F TIG catheters. Coronary Intervention: The patient was anticoagulated. A 6F Ikari L (JL-3.5, Ikari 3.5, EBU-3.75 did not engage the LM) guiding catheter was inserted. A Choice PT guidewire was advanced into the distal LAD and across the area of stenosis. There was 99% stenosis with thrombus in the proximal LA D stent. A 3.0X10 Angiosculpt balloon was used to cut the entire length of stent, at 12 vi . This was followed by use of NC Quantum 3.5X15 with high pressure inflations of up to 22 at m. Subsequent angiography showed embolization in the apical LAD. Integrelin bolus X2 was giv en and I tried to break up (multiple inflations at 3 vi with a 2.0X15 balloon) and extract this thrombus--this was not successful. FINDINGS: Left ventricular end-diastolic pressure (LVEDP) was 20 mm Hg. There was no gradient acro ss the aortic valve. Left main coronary artery: Normal Left anterior descending coronary artery: 99% stenosis with thrombus in the proximal LAD s tent; no significant other disease. Circumflex coronary artery: Normal Right coronary artery: Normal Result of intervention: 0% residual stenosis of the proximal LAD 100% occlusion of the Apical LAD CONCLUSIONS: 1. 0% residual stenosis of the proximal LAD 2. 100% occlusion of the Apical LAD 3. Normal LM, LCx, R RECOMMENDATIONS: ASA and Plavix for 6 mos. Continue other cardiac meds. F/u with primary natural gas technician in 2 wks at [facility]. Allan Amato MD [facility] DATE/TIME: 02/13/2017 7:55 02/13/2017 7:55 documented in this enco unter Consult Notes Sydnie Currie RN - 02/15/2017 8:42 AM PSTAssociated Order(s): IP CONSULT TO DIABETES SPEC IALISTPatient tells me she checks her blood sugar 3 times daily. She injects Levemir am and pm and Novolog sliding scale at meals. We reviewed the basic pathophysiology of diabetes a nd why high blood sugar puts her at risk for complications and the importance of reducing he r A1C. She states she has never had diabetes education and is unfamiliar with how to control her blood sugar through diet. I reviewed carbs and appropriate portions. We also discussed benefits of physical activity for blood sugar control. I asked if she was interested in me eting for a follow up outpatient visit after discharge. She lives in [place] and says jamel t transportation is an issue. I gave her a handout on smoking and we discussed the additiona l risks of smoking associated with diabetes. I provided her with my contact information a nd asked that she call if she had questions. Allan Gipson MD - 6:11 AM PST CARDIOLOGY CONSULTATION PATIENT NAME/: Nancy Terrazas, (1970) DATE OF ADMISSION: 02/13/2017 ADMIT/REFERRING PHYSICIAN: Allan Amato MD DATE OF CONSULTATION: 02/13/2017 (Hospital Day: 1) CONSULTING FLOOR COVERING CONTRACTOR: Sachin Amato MD HISTORY OF PRESENT ILLNESS: 46 y.o. female presented to a local hospital with about an hour of SSCP with radiation to t he R arm and equivocal EKG changes [facility] and scr eaming at [facility]. She has had 2 cor stents before and last saw her natural gas technician in 07/2016 in [facility]. She denies exertional angina, syncope, chf and has quite a few risks for CAD incl uding smoking. Current EKG shows some anterior ST elevation which may be chronic c/w previou s anterior UT. Trop is 0.05 ASSESSMENT/PLAN: The pertinent data is below, my initial assessment and brief recommendations include: Impression 1. Chest Pain--possibly due to CAD; not sure she is having an acute event. Recommendations 1. Cor angio. ACTIVE PROBLEM LIST: Active Problems: * No active hospital problems. * PAST MEDICAL HISTORY: History reviewed. No pertinent past medical history. History reviewed. No pertinent surgical history. MEDICATIONS: IV: heparin infusion 1,000 Units/hr (02/13/17 3390) nitroglycerin in dextrose 5 mcg/min (02/13/17 0954) PRN: [MAR Hold] heparin, [MAR Hold] HYDROmorphone, [MAR Hold] morphine, [MAR Hold] ondansetron Allergies: Allergies Allergen Reactions Codeine Sulfa Antibiotics Family History: History reviewed. No pertinent family history. Social History: Social History Substance Use Topics Smoking status: Current Every Day Smoker Smokeless tobacco: Never Used Alcohol use Not on file REVIEW OF SYSTEMS: A 14 system, 2 point review was conducted, and in addition to what is noted above in the HP I, the highlights included: no history of bleeding or contraindication to FABIANA placement. PHysical Exam: Most Recent Vitals: BP: 116/88 Pulse: 107 Resp: 29 SpO2: 98 % Weight: admission Weight: 95.3 kg (210 lb) her current Weight: 95.3 kg (210 lb) General Appearance - screaming in pain in between being totally lucid HEENT -conjunctiva and corneas are normal Heart - regular rate and rhythm, S1 and S2 normal, no murmur, rub, or gallop. Lungs - clear to auscultation bilaterally Abdomen - soft Musc/Skel - moves all extremities Extremities - no cyanosis. no significant edema Skin - no lesions or rashes Neurologic - no focal deficits DIAGNOSTIC STUDIES: Labs: Lab Results Component Value Date WBC 15.1 (H) 02/13/2017 HGB 15.0 02/13/2017 HCT 43.5 02/13/2017 MCV 87.9 02/13/2017 PLT 291 02/13/2017 INR 0.82 (L) 02/13/2017 Lab Results Component Value Date CREA 0.78 02/13/2017 BUN 18 02/13/2017 NA 137 02/13/2017 K 4.3 02/13/2017 Lab Results Component Value Date CALCIUM 9.5 02/13/2017 PT/INR/PTT: 11.2/0.82/23 (02/13 0515) No results for input(s): CKMB, BNP in the last 168 hours. Invalid input(s): CKTOTAL, TROPONINI No results found for: CHOL, TRIG, HDL, LDL Imaging: Available data and images were reviewed personally. Significant results and findings are a ddressed here or in the Assessment and Plan. EKG: NSR; Anterior ST elevation with anterior wall scar No results found. : No primary care provider on file. - PRIMARY CARE PROVIDER Allan Amato MD - ADMIT/REFERRING PHYSICIAN documented in this enco unter ED Notes Grant Woodall MD - 02/13/2017 5:15 AM PSTFormatting of this note might be different fro m the original. eMERGENCY dEPARTMENT eNCOUnter CHIEF COMPLAINT Chief Complaint Patient presents with Chest Pain 45 min HPI Nancy Terrazas is a 46 y.o. female who presents Complaining of severe chest pain and s hortness of breath. Symptoms have been ongoing throughout the morning. Started 2-3 hours ago . Patient was transported here by [place] paramedics. She is from [place]. They transpor hiren her here because her initial ECG was concerning for possible anteroseptal ST elevation. Patient received 324 mg of aspirin, 2 doses of sublingual nitroglycerin and a total of 200 g of fentanyl and is continuing to writhe in pain while hyperventilating and moaning. She r eports a previous history of UT, diabetes, and smoking. PAST MEDICAL HISTORY History reviewed. No pertinent past medical history. SURGICAL HISTORY History reviewed. No pertinent surgical history. CURRENT MEDICATIONS There are no discharge medications for this patient. ALLERGIES Allergies Allergen Reactions Codeine Sulfa Antibiotics FAMILY HISTORY History reviewed. No pertinent family history. SOCIAL HISTORY Social History Social History Marital status: Spouse name: N/A Number of children: N/A Years of education: N/A Social History Main Topics Smoking status: Current Every Day Smoker Smokeless tobacco: Never Used Alcohol use None Drug use: Unknown Sexual activity: Not Asked Other Topics Concern None Social History Narrative None REVIEW OF SYSTEMS A 12 system review of systems is otherwise negative except as noted in the HPI above. PHYSICAL EXAM VITAL SIGNS: (first vital signs): Pulse: 94 Resp: 21 SpO2: 99 % BP: (!) 124/92 Constitutional: Well developed, Well nourished, Patient appears anxious and is hyperventil ating and rolling back and forth on the stretcher HENT: Normocephalic, Atraumatic, Bilateral external ears normal, Oral mucosa moist, paper cone grader ior pharynx no exudates, Nose normal. Neck-supple, nontender, no meningismus, No stridor. Eyes: PERRL, EOMI, Conjunctiva normal, No discharge. Respiratory: Breath sounds equal bilaterally, no adventitious sounds, No chest wall tender ness. Cardiovascular: Normal rate, normal S1, S2, no murmurs, rubs, or gallops GI: Abdomen soft, non-tender, non-distended, normal bowel sounds, no CVA tenderness : Musculoskeletal: Intact distal pulses, No edema, No tenderness, No cyanosis. Good range of motion in all major joints. No tenderness to palpation or major deformities noted. Back- No tenderness. Skin: Warm, Dry, No erythema, No rash or lesions. Lymphatic: Neurologic: Alert & oriented x 3, Cranial nerves II-XII intact, Normal sensation, motor, a nd strength in all four extremities, No focal deficits noted. Psychiatric: Anxious and hyperventilating Labs Reviewed CBC WITH DIFFERENTIAL - Abnormal; Notable for the following: Result Value WBC 15.1 (*) % Basophils 1.1 (*) Absolute Neutrophils 8.70 (*) Absolute Lymphocytes 4.80 (*) Absolute Monocytes 1.10 (*) Absolute Basophils 0.20 (*) All other components within normal limits COMPREHENSIVE METABOLIC PANEL - Abnormal; Notable for the following: CO2 22 (*) GLUCOSE 329 (*) ALBUMIN 3.1 (*) ALK PHOS 115 (*) All other components within normal limits PROTIME INR - Abnormal; Notable for the following: Protime 11.2 (*) INR 0.82 (*) All other components within normal limits TROPONIN I - Normal D-DIMER - Normal PTT - Normal EXTRA LAVENDER TOP TUBE EXTRA BLUE TOP TUBE EXTRA GOLD TOP TUBE EXTRA GREEN TOP TUBE EXTRA GREEN TOP TUBE EXTRA BLOOD BANK TUBE RADIOLOGY CT Results: No results found. Chest x-ray shows no acute findings EKG Interpretation Interpreted by nh Rhythm: normal sinus Rate: normal [place]: normal Ectopy: none Conduction: normal ST Segments: no acute change T Waves: no acute change Q Waves: V1 through V5 Clinical Impression: Normal sinus, Q waves in V1 through V5 EKG Interpretation Interpreted by nh Rhythm: Sinus tachycardia Rate:1104 [place]: normal Ectopy: PVCs Conduction: normal ST Segments: Anterior ST segment elevations T Waves: no acute change Q Waves: V1 through V5 Clinical Impression: Acute ST elevation UT ED COURSE & MEDICAL DECISION MAKING Pertinent Labs & Imaging studies reviewed. (See chart for details) Patient presented by EMS with severe chest pain and dyspnea although satting normally on ro om air. Pain persisted despite prehospital nitroglycerin 2, fentanyl 200 g IV in the pre hospital setting, IV morphine in the emergency department, and IV Dilaudid in the emergency department. Initial ECG did not show evidence of acute UT. Repeat ECG 15 minutes later did s how evidence of acute UT. At that time I activated the analytical lab analyst and interventional cardiolog ist came to take the patient to the Experimental Box Tester. She was started on nitroglycerin and heparin i nfusions. Last Set of Vital Signs: Pulse: 107 Resp: 29 SpO2: 98 % BP: 116/[address] elevation myocardial infarction (STEMI), unspecified artery (HCC) PLAN to analytical lab analyst for PCI There are no discharge medications for this patient. Grant Woodall MD 02/13/17 0630 ngersJimbo RN - 02/13/2017 5:10 AM PSTPt had sudden onset chest pain approx 45 min ago. Pt received fentan yl 150mcg Iv, ASA 324mg and Zofran 4mg Iv. Electronically signed by Jimbo Melgar RN at 5:11 AM PSTdocumented in this encounter Miscellaneous Notes Plan of Care - Sydnie Currie RN - 02/15/2017 8:50 AM PSTProblem: Diabetes, Type 2 (Adult) Prevent and manage potential problems includin. diabetic ketoacidosis (DKA)/hyperosmolar hyperglycemic state (HHS)2. impaired glycemic control3. hypoglycemia4. situational response Goal: Signs and Symptoms of Listed Potential Problems Will be Absent or Manageable (Diabete s, Type 2) Signs and symptoms of listed potential problems will be absent or manageable by discharge/t ransition of care (reference Diabetes, Type 2 (Adult) CPG). Outcome: Adequate for Discharge Date Met: 02/15/17 See inpatient consult completed today. eICU Note - Tim Garcia RN - 02/15/2017 12:00 AM PSTVenous device lab draw for troponin level.Electronical ly signed by Silvano Garcia RN at 02/15/2017 12:41 AM PSTPlan of Care - Missy Quintana RN - 02/14/2017 4:53 AM PSTProblem: Patient Care Overview (Adult) Goal: Care Team Goals & Evaluation PROBLEM-RELATED GOALS: 1. Nancy will report 0/10 chest pain by 02/15/17. 2. Nancy will maintain stable VS by 02/15/17. 3. Nancy will maintain SaO2 >92% on RA by 02/14/17. 4. Nancy will have normal NV checks and maintain good pulses in all her extremities by 1 04/17/16. STRATEGY TO ACHIEVE GOALS: -Titrate nitro gtt per order and give IVP morphine as needed. -q1h VS checks, monitor BP closely and titrate nitro gtt if needed to maintain stable Bp. -titrate O2 to maintain SaO2 >92% and transition to RA when stable. -q4h NV and pulse checks. RESTRAINT-RELATED GOALS: STRATEGIES TO ACHIEVE RESTRAINT GOALS: Outcome: Improving Goal Evaluation: Pt Aox4, tearful at times but cooperative. Pt c severe H/A at beginning of shift, norco gi regine c no relief. IVP morphine given for H/A relief per Dr Marcela polo positive effect. Pt sienna nued to have severe H/A, second dose of morphine given. Pt no longer having CP, nitro gtt ti trated off c no return of CP, H/A resolved after nitro gtt stopped. Second dose of norco giv en for chronic back pain c positive effect. VSS. HR NSR. Heparin gtt infusing per order, PTT drawn and gtt titrated per protocol. Upon initial assessment, heparin gtt found to be infil trated in RFA PIV. Heparin infusion switched to LH PIV. PTT verified and bolus/gtt titration based off that PTT. Next PTT due at 1015. Ambulates c steady gait. Will continue to monitor . eICU Note - Vaughn Garcia RN - 02/13/2017 3:34 PM PSTPt complains on Cp4/10 midsternal and describes as du ll ache but does not radiate, pt diaphoretic but sustaining bp sys high 90's, EKG ordered an d no changes noted, started a nitro gtt 3ug/min and is currently at 12ug/min with adequate B P, administered 2mg MSO4 IVP with prn zofran, pt currently reports pain at 2/10 and verbaliz ed increased comfort titration of gtt in progress, Dr. Dennis notified of patient status a nd will update Dr. Amato. 3:3 9 PM PSTPlan of Care - Linda Heard RN - 02/13/2017 1:13 PM PSTProblem: Discharge Planning Goal: Patient will be discharged in a safe manner Outcome: Improving This CM met with patient to discuss her d/c plan. She reports that she lives in [place] with her spouse and 2 college age young adults who help a lot at home. She was transported directly here from her home since she was having an UT and [facility]'s had no cardiology. Patient states that she has been on disability Medicare due to her back injuries and severa l back surgeries. Otherwise, she is totally independent and uses her cane only prn for her mobility. She confirmed her PCP is Ki Senior NP, and her pharmacy is [facility], both in [facility]. Her spouse will be her transport back home when discharged. Patient confirmed she does not use any home 02 or home CPAP and still drives. No needs identified. Dispo plan: Return home to [place] with spouse transporting when discharged with no needs. Electronically signed by: Linda Heard RN 02/13/2017 13:12 lan of [facility] - Won Mcneil Chaplain - 02/13/2017 11:49 AM PSTProblem: Patient Care Overview (Adult) Goal: Care Team Goals & Evaluation PROBLEM-RELATED GOALS: STRATEGY TO ACHIEVE GOALS: RESTRAINT-RELATED GOALS: STRATEGIES TO ACHIEVE RESTRAINT GOALS: Spiritual Care Nancy Terrazas is a 46 y.o. female who is admitted for ST elevation myocardial infarct ion (STEMI), unspecified artery (HCC) [I21.3]. Electric Appliance Installer visit was part of routine rounding. Spiritual Evaluation: Patient was resting in bed; she was awake and alert, and conversational. She was attended b e her and her son - both sat away from the bed, near the window, and were not engage d in the visit. She commented that she is too young for the physical ailment she is dealing with. She is the youngest of 3 daughters, and she is the one who has come down with all the family physical issues. She was in no discomfort during our visit, and expressed appreciatio n for the support. She initially seemed neutral about having a natural resources instructor visit, but quickly w armed to the situation, and was smiling and grateful for the time I spent with her. She tess eves in God, was baptized as a child, still maintains a personal spirituality, but is not af filiated with any particular oriental orthodox or crista group. Spiritual Interventions: I offered supportive listening, ministry of presence, and words of encouragement. Spiritual Outcomes: Nancy expressed appreciation for the visit, but declined an offer for spiritual care. Spiritual Goals/Follow-up: Follow up with regular visits, emotional and spiritual support. eISilvano Beatty RN - 02/13/2017 11:00 AM PSTBlood drawn by RN Silvano Arroyo RN - 017 8:00 AM PSTBlood lab draw by RNElectronically signed by Silvano Garcia RN at 02/13 5:07 PM PSTdocumented in this encounter Plan of Treatment Not on filedocumented as of this encounter Procedures + +--------+ + + + | Procedure Name | Priori | Date/Time | Associated Diagnosis | Comments | | | ty | | | | + +--------+ + + + | TROPONIN I | Routin | 02/15/2017 | | Results for this | | | e | 7:53 AM | | procedure are in the | | | | PST | | results section. | + +--------+ + + + | POC GLUCOSE | Routin | 02/15/2017 | | Results for this | | | e | 6:57 AM | | procedure are in the | | | | PST | | results section. | + +--------+ + + + | LIPID PANEL | Routin | 02/15/2017 | | Results for this | | | e | 4:10 AM | | procedure are in the | | | | PST | | results section. | + +--------+ + + + | EXTRA LAVENDER TOP | Routin | 02/15/2017 | | Results for this | | TUBE | e | 4:10 AM | | procedure are in the | | | | PST | | results section. | + +--------+ + + + | TROPONIN I | Routin | 02/14/2017 | | Results for this | | | e | 11:51 PM | | procedure are in the | | | | PST | | results section. | + +--------+ + + + | POC GLUCOSE | Routin | 02/14/2017 | | Results for this | | | e | 9:51 PM | | procedure are in the | | | | PST | | results section. | + +--------+ + + + | POC GLUCOSE | Routin | 02/14/2017 | | Results for this | | | e | 4:35 PM | | procedure are in the | | | | PST | | results section. | + +--------+ + + + | URINALYSIS, | Routin | 02/14/2017 | | Results for this | | MICROSCOPIC ONLY, | e | 4:22 PM | | procedure are in the | | WITH CULTURE IF | | PST | | results section. | | INDICATED | | | | | + +--------+ + + + | TROPONIN I | Routin | 02/14/2017 | | Results for this | | | e | 3:51 PM | | procedure are in the | | | | PST | | results section. | + +--------+ + + + | POC GLUCOSE | Routin | 02/14/2017 | | Results for this | | | e | 11:49 AM | | procedure are in the | | | | PST | | results section. | + +--------+ + + + | CLOSTRIDIUM | Routin | 02/14/2017 | | Results for this | | DIFFICILE A AND B | e | 11:38 AM | | procedure are in the | | EIA | | PST | | results section. | + +--------+ + + + | PTT | STAT | 02/14/2017 | | Results for this | | | | 10:19 AM | | procedure are in the | | | | PST | | results section. | + +--------+ + + + | POC GLUCOSE | Routin | 02/14/2017 | | Results for this | | | e | 8:22 AM | | procedure are in the | | | | PST | | results section. | + +--------+ + + + | EXTRA LAVENDER TOP | Routin | 02/14/2017 | | Results for this | | TUBE | e | 8:10 AM | | procedure are in the | | | | PST | | results section. | + +--------+ + + + | TROPONIN I | Routin | 02/14/2017 | | Results for this | | | e | 8:07 AM | | procedure are in the | | | | PST | | results section. | + +--------+ + + + | POC GLUCOSE | Routin | 02/14/2017 | | Results for this | | | e | 6:34 AM | | procedure are in the | | | | PST | | results section. | + +--------+ + + + | XR CHEST AP PORTABLE | Routin | 02/14/2017 | | Results for this | | | e | 5:48 AM | | procedure are in the | | | | PST | | results section. | + +--------+ + + + | PTT | Timed | 02/14/2017 | | Results for this | | | | 3:04 AM | | procedure are in the | | | | PST | | results section. | + +--------+ + + + | CBC WITH | Routin | 02/14/2017 | | Results for this | | DIFFERENTIAL | e | 3:04 AM | | procedure are in the | | | | PST | | results section. | + +--------+ + + + | PHOSPHORUS | Routin | 02/14/2017 | | Results for this | | | e | 3:04 AM | | procedure are in the | | | | PST | | results section. | + +--------+ + + + | B TYPE NATRIURETIC | Routin | 02/14/2017 | | Results for this | | PEPTIDE | e | 3:04 AM | | procedure are in the | | | | PST | | results section. | + +--------+ + + + | MAGNESIUM | Routin | 02/14/2017 | | Results for this | | | e | 3:04 AM | | procedure are in the | | | | PST | | results section. | + +--------+ + + + | HEMOGLOBIN A1C | Routin | 02/14/2017 | | Results for this | | | e | 3:04 AM | | procedure are in the | | | | PST | | results section. | + +--------+ + + + | COMPREHENSIVE | Routin | 02/14/2017 | | Results for this | | METABOLIC PANEL | e | 3:04 AM | | procedure are in the | | | | PST | | results section. | + +--------+ + + + | TROPONIN I | Routin | 02/14/2017 | | Results for this | | | e | 12:02 AM | | procedure are in the | | | | PST | | results section. | + +--------+ + + + | CBC WITH | Routin | 02/14/2017 | | Results for this | | DIFFERENTIAL | e | 12:02 AM | | procedure are in the | | | | PST | | results section. | + +--------+ + + + | BASIC METABOLIC | Routin | 02/14/2017 | | Results for this | | PANEL | e | 12:02 AM | | procedure are in the | | | | PST | | results section. | + +--------+ + + + | POC GLUCOSE | Routin | 02/13/2017 | | Results for this | | | e | 8:45 PM | | procedure are in the | | | | PST | | results section. | + +--------+ + + + | PTT | STAT | 02/13/2017 | | Results for this | | | | 8:45 PM | | procedure are in the | | | | PST | | results section. | + +--------+ + + + | PTT | Routin | 02/13/2017 | | Results for this | | | e | 7:08 PM | | procedure are in the | | | | PST | | results section. | + +--------+ + + + | POC GLUCOSE | Routin | 02/13/2017 | | Results for this | | | e | 5:03 PM | | procedure are in the | | | | PST | | results section. | + +--------+ + + + | TROPONIN I | Routin | 02/13/2017 | | Results for this | | | e | 5:00 PM | | procedure are in the | | | | PST | | results section. | + +--------+ + + + | ECHO COMPLETE | Routin | 02/13/2017 | | Results for this | | | e | 3:00 PM | | procedure are in the | | | | PST | | results section. | + +--------+ + + + | ECG 12 LEAD | Routin | 02/13/2017 | | Results for this | | | e | 2:30 PM | | procedure are in the | | | | PST | | results section. | + +--------+ + + + | POC GLUCOSE | Routin | 02/13/2017 | | Results for this | | | e | 11:49 AM | | procedure are in the | | | | PST | | results section. | + +--------+ + + + | PTT | Timed | 02/13/2017 | | Results for this | | | | 11:35 AM | | procedure are in the | | | | PST | | results section. | + +--------+ + + + | CULTURE, MRSA | Routin | 02/13/2017 | | Results for this | | | e | 8:54 AM | | procedure are in the | | | | PST | | results section. | + +--------+ + + + | EXTRA KIMBERLY TOP | Routin | 02/13/2017 | | Results for this | | TUBE | e | 8:41 AM | | procedure are in the | | | | PST | | results section. | + +--------+ + + + | TROPONIN I | Routin | 02/13/2017 | | Results for this | | | e | 8:40 AM | | procedure are in the | | | | PST | | results section. | + +--------+ + + + | ECG 12 LEAD | STAT | 02/13/2017 | | Results for this | | | | 8:28 AM | | procedure are in the | | | | PST | | results section. | + +--------+ + + + | CV COR ANGIO | Routin | 02/13/2017 | | Results for this | | | e | 7:53 AM | | procedure are in the | | | | PST | | results section. | + +--------+ + + + | POC ACTIVATED | Routin | 02/13/2017 | | Results for this | | CLOTTING TIME ISTAT | e | 7:08 AM | | procedure are in the | | | | PST | | results section. | + +--------+ + + + | POC ACTIVATED | Routin | 02/13/2017 | | Results for this | | CLOTTING TIME ISTAT | e | 6:33 AM | | procedure are in the | | | | PST | | results section. | + +--------+ + + + | EXTRA GREEN TOP TUBE | Routin | 02/13/2017 | | Results for this | | | e | 6:05 AM | | procedure are in the | | | | PST | | results section. | + +--------+ + + + | EXTRA BLOOD BANK | Routin | 02/13/2017 | | Results for this | | TUBE | e | 6:05 AM | | procedure are in the | | | | PST | | results section. | + +--------+ + + + | EXTRA LAVENDER TOP | Routin | 02/13/2017 | | Results for this | | TUBE | e | 6:02 AM | | procedure are in the | | | | PST | | results section. | + +--------+ + + + | EXTRA GREEN TOP TUBE | Routin | 02/13/2017 | | Results for this | | | e | 6:02 AM | | procedure are in the | | | | PST | | results section. | + +--------+ + + + | EXTRA GOLD TOP TUBE | Routin | 02/13/2017 | | Results for this | | | e | 6:02 AM | | procedure are in the | | | | PST | | results section. | + +--------+ + + + | EXTRA BLUE TOP TUBE | Routin | 02/13/2017 | | Results for this | | | e | 6:01 AM | | procedure are in the | | | | PST | | results section. | + +--------+ + + + | ECG 12 LEAD | STAT | 02/13/2017 | | Results for this | | | | 5:28 AM | | procedure are in the | | | | PST | | results section. | + +--------+ + + + | XR CHEST AP PORTABLE | STAT | 02/13/2017 | | Results for this | | | | 5:27 AM | | procedure are in the | | | | PST | | results section. | + +--------+ + + + | OXYGEN THERAPY | STAT | 02/13/2017 | | | | | | 5:15 AM | | | | | | PST | | | + +--------+ + + + | TROPONIN I | STAT | 02/13/2017 | | Results for this | | | | 5:15 AM | | procedure are in the | | | | PST | | results section. | + +--------+ + + + | PTT | STAT | 02/13/2017 | | Results for this | | | | 5:15 AM | | procedure are in the | | | | PST | | results section. | + +--------+ + + + | PROTIME INR | STAT | 02/13/2017 | | Results for this | | | | 5:15 AM | | procedure are in the | | | | PST | | results section. | + +--------+ + + + | D-DIMER | STAT | 02/13/2017 | | Results for this | | | | 5:15 AM | | procedure are in the | | | | PST | | results section. | + +--------+ + + + | CBC WITH | STAT | 02/13/2017 | | Results for this | | DIFFERENTIAL | | 5:15 AM | | procedure are in the | | | | PST | | results section. | + +--------+ + + + | COMPREHENSIVE | STAT | 02/13/2017 | | Results for this | | METABOLIC PANEL | | 5:15 AM | | procedure are in the | | | | PST | | results section. | + +--------+ + + + | ECG 12 LEAD | STAT | 02/13/2017 | | Results for this | | | | 5:12 AM | | procedure are in the | | | | PST | | results section. | + +--------+ + + + documented in this encounter Results Troponin I (02/15/2017 7:53 AM PST) + + + + + + | Component | Value | Ref Range | Performed | Pathologist | | | | | At | Signature | + + + + + + | Troponin I | 5.77 ()Comment: | <0.06 ng/mL | [facility] | | | | Reference | | [facility] | | | | Ranges:0.00-0.06 = | | MEDICAL | | | | NORMAL>0.06 = | | CENTER - | | | | SUSPICIOUS FOR | | LABORATORY | | | | MYOCARDIAL DAMAGE NOTE: | | | | | | Values greater than 0.50 | | | | | | ng/mL have been shown | | | | | | to be strongly | | | | | | associated with acute | | | | | | myocardial infarction. | | | | | | The [employer] | | | | | | Cardiology (ACC) | | | | | | recommends a decision | | | | | | limit of 0.06 ng/mL for | | | | | | this assay. Results | | | | | | greater than 0.06 can | | | | | | reflect a pre-infarct | | | | | | acute coronary syndrome, | | | | | | but can also reflect | | | | | | myocardial necrosis or | | | | | | injury that is not due | | | | | | to coronary artery | | | | | | disease. Some of these | | | | | | causes are sepsis, | | | | | | hypocolemia, atrial | | | | | | fibrillation, heart | | | | | | failure, pulmonary | | | | | | embolism, myocarditis, | | | | | | myocardial contusion, | | | | | | and renal failure. The | | | | | | diagnosis of myocardial | | | | | | infarction should be | | | | | | based on a combination | | | | | | of the patient's | | | | | | clinical presentation | | | | | | and the clinical | | | | | | laboratory test results | | | | | | (especially serial | | | | | | troponin levels). | | | | | | Critical Result called | | | | | | to and read back by | | | | | | Valeri Guerrero on | | | | | | 02/15/2017 at 8:56 by | | | | | | Mary Grace Herrmann. | | | | + + + + + + + + | Specimen | + + | Blood | + + + + + + + | Performing | Address | City/State/[facility] | Phone Number | | Organization | | | | + + + + + | [facility] | [address] | [place] | [phone] | | [facility] | | [address] | | | - LABORATORY | | | | + + + + + POC Glucose (02/15/2017 6:57 AM PST) + +---------+ + + + | Component | Value | Ref Range | Performed | Pathologist | | | | | At | Signature | + +---------+ + + + | Glucose, | 146 (H) | 70 - 109 mg/dL | [facility] | | | POC | | | [facility] | | | | | | MEDICAL | | | | | | CENTER - | | | | | | LABORATORY | | + +---------+ + + + + + | Specimen | + + | Blood | + + + + + + + | Performing | Address | City/State/Zipcode | Phone Number | | Organization | | | | + + + + + | [facility] | [address] | [place] | [phone] | | [facility] | | [address] | | | - LABORATORY | | | | + + + + + Extra Lavender Top Tube (02/15/2017 4:10 AM PST) + +-------+ + + + | Component | Value | Ref Range | Performed | Pathologist | | | | | At | Signature | + +-------+ + + + | Extra | Done | | [facility] | | | [facility] | | | [facility] | | | Top Tube | | | MEDICAL | | | | | | CENTER - | | | | | | LABORATORY | | + +-------+ + + + + + | Specimen | + + | Blood | + + + + + + + | Performing | Address | City/State/Zipcode | Phone Number | | Organization | | | | + + + + + | [facility] | [address] | [place] | [phone] | | [facility] | | [address] | | | - LABORATORY | | | | + + + + + Lipid Panel (02/15/2017 4:10 AM PST) + + + + + + | Component | Value | Ref Range | Performed | Pathologist | | | | | At | Signature | + + + + + + | Triglycerid | 638 (H)Comment: LDL | 35 - 160 mg/dL | [facility] | | | es | unable to calculate due | | [facility] | | | | to high triglyceride | | MEDICAL | | | | value | | CENTER - | | | | | | LABORATORY | | + + + + + + | Cholesterol | 212 (H) | 150 - 200 mg/dL | [facility] | | | | | | [facility] | | | | | | MEDICAL | | | | | | CENTER - | | | | | | LABORATORY | | + + + + + + | HDL | 38Comment: New HDL | 28 - 83 mg/dL | [facility] | | | | Reference Range as of | | [facility] | | | | November 11, 2014 | | MEDICAL | | | | Values may be 10-20% | | CENTER - | | | | lower with new, | | LABORATORY | | | | standardized method. | | | | + + + + + + | Chol/HDL | 5.6 | | [facility] | | | Ratio | | | [facility] | | | | | | MEDICAL | | | | | | CENTER - | | | | | | LABORATORY | | + + + + + + + + | Specimen | + + | Blood | + + + + + + + | Performing | Address | City/State/Zipcode | Phone Number | | Organization | | | | + + + + + | [facility] | [address] | [place], [place] | [phone] | | [facility] | | [address] | | | - LABORATORY | | | | + + + + + Troponin I (02/14/2017 11:51 PM PST) + + + + + + | Component | Value | Ref Range | Performed | Pathologist | | | | | At | Signature | + + + + + + | Troponin I | 4.86 ()Comment: | <0.06 ng/mL | [facility] | | | | Consistent with previous | | [facility] | | | | results. Reference | | MEDICAL | | | | Ranges:0.00-0.06 = | | CENTER - | | | | NORMAL>0.06 = | | LABORATORY | | | | SUSPICIOUS FOR | | | | | | MYOCARDIAL DAMAGE NOTE: | | | | | | Values greater than 0.50 | | | | | | ng/mL have been shown | | | | | | to be strongly | | | | | | associated with acute | | | | | | myocardial infarction. | | | | | | The [employer] | | | | | | Cardiology (ACC) | | | | | | recommends a decision | | | | | | limit of 0.06 ng/mL for | | | | | | this assay. Results | | | | | | greater than 0.06 can | | | | | | reflect a pre-infarct | | | | | | acute coronary syndrome, | | | | | | but can also reflect | | | | | | myocardial necrosis or | | | | | | injury that is not due | | | | | | to coronary artery | | | | | | disease. Some of these | | | | | | causes are sepsis, | | | | | | hypocolemia, atrial | | | | | | fibrillation, heart | | | | | | failure, pulmonary | | | | | | embolism, myocarditis, | | | | | | myocardial contusion, | | | | | | and renal failure. The | | | | | | diagnosis of myocardial | | | | | | infarction should be | | | | | | based on a combination | | | | | | of the patient's | | | | | | clinical presentation | | | | | | and the clinical | | | | | | laboratory test results | | | | | | (especially serial | | | | | | troponin levels). | | | | + + + + + + + + | Specimen | + + | Blood | + + + + + + + | Performing | Address | City/State/[facility] | Phone Number | | Organization | | | | + + + + + | [facility] | [address] | [place] | [phone] | | [facility] | | [address] | | | - LABORATORY | | | | + + + + + POC Glucose (02/14/2017 9:51 PM PST) + +---------+ + + + | Component | Value | Ref Range | Performed | Pathologist | | | | | At | Signature | + +---------+ + + + | Glucose, | 241 (H) | 70 - 109 mg/dL | [facility] | | | POC | | | [facility] | | | | | [facility] | | | | | | C[facility] - | | | | | | LABORATORY | | + +---------+ + + + + + | Specimen | + + | Blood | + + + + + + + | Performing | Address | City/State/Zipcode | Phone Number | | Organization | | | | + + + + + | [facility] | [address] | [place] | [phone] | | [facility] | | [address] | | | - LABORATORY | | | | + + + + + POC Glucose (02/14/2017 4:35 PM PST) + +---------+ + + + | Component | Value | Ref Range | Performed | Pathologist | | | | | At | Signature | + +---------+ + + + | Glucose, | 169 (H) | 70 - 109 mg/dL | [facility] | | | POC | | | [facility] | | | | | [facility] | | | | | | CENTER - | | | | | | LABORATORY | | + +---------+ + + + + + | Specimen | + + | Blood | + + + + + + + | Performing | Address | City/State/Zipcode | Phone Number | | Organization | | | | + + + + + | [facility] | [address] | [place] | [phone] | | [facility] | | [address] | | | - LABORATORY | | | | + + + + + Urinalysis, Microscopic Only, with Culture if Indicated (02/14/2017 4:22 PM PST) + + + + + + | Component | Value | Ref Range | Performed | Pathologist | | | | | At | Signature | + + + + + + | White Blood | 2-5 (A) | 0 - 2 /HPF | [facility] | | | Cells, | | | [facility] | | | Urine | | | MEDICAL | | | | | | CENTER - | | | | | | LABORATORY | | + + + + + + | Red Blood | 0-2 | 0 - 2 /HPF | [facility] | | | Cells, | | | [facility] | | | Urine | | | MEDICAL | | | | | | CENTER - | | | | | | LABORATORY | | + + + + + + | Squamous | 50-100 (A) | 0 - 2 /LPF | [facility] | | | Epithelial | | | [facility] | | | Cells, | | | MEDICAL | | | Urine | | | CENTER - | | | | | | LABORATORY | | + + + + + + | Bacteria, | 3+ (A) | Negative /HPF | [facility] | | | Urine | | | [facility] | | | | | | MEDICAL | | | | | | CENTER - | | | | | | LABORATORY | | + + + + + + | Mucus, | Present (A) | Negative /LPF | [facility] | | | Urine | | | [facility] | | | | | | MEDICAL | | | | | | CENTER - | | | | | | LABORATORY | | + + + + + + | Urine | Urine Culture Not | | [facility] | | | Comment | Indicated | | [facility] | | | | | | MEDICAL | | | | | | CENTER - | | | | | | LABORATORY | | + + + + + + + + | Specimen | + + | Urine - Urine | | specimen obtained by | | clean catch | | procedure (specimen) | + + + + + + + | Performing | Address | City/State/Zipcode | Phone Number | | Organization | | | | + + + + + | [facility] | [address] | [place] | [phone] | | [facility] | | [address] | | | - LABORATORY | | | | + + + + + Troponin I (02/14/2017 3:51 PM PST) + + + + + + | Component | Value | Ref Range | Performed | Pathologist | | | | | At | Signature | + + + + + + | Troponin I | 6.78 ()Comment: | <0.06 ng/mL | [facility] | | | | Reference | | [facility] | | | | Ranges:0.00-0.06 = | | MEDICAL | | | | NORMAL>0.06 = | | CENTER - | | | | SUSPICIOUS FOR | | LABORATORY | | | | MYOCARDIAL DAMAGE NOTE: | | | | | | Values greater than 0.50 | | | | | | ng/mL have been shown | | | | | | to be strongly | | | | | | associated with acute | | | | | | myocardial infarction. | | | | | | Consistent with previous | | | | | | results. The [place] | | | | | | College of Cardiology | | | | | | (ACC) recommends a | | | | | | decision limit of 0.06 | | | | | | ng/mL for this assay. | | | | | | Results greater than | | | | | | 0.06 can reflect a | | | | | | pre-infarct acute | | | | | | coronary syndrome, but | | | | | | can also reflect | | | | | | myocardial necrosis or | | | | | | injury that is not due | | | | | | to coronary artery | | | | | | disease. Some of these | | | | | | causes are sepsis, | | | | | | hypocolemia, atrial | | | | | | fibrillation, heart | | | | | | failure, pulmonary | | | | | | embolism, myocarditis, | | | | | | myocardial contusion, | | | | | | and renal failure. The | | | | | | diagnosis of myocardial | | | | | | infarction should be | | | | | | based on a combination | | | | | | of the patient's | | | | | | clinical presentation | | | | | | and the clinical | | | | | | laboratory test results | | | | | | (especially serial | | | | | | troponin levels). | | | | + + + + + + + + | Specimen | + + | Blood | + + + + + + + | Performing | Address | City/State/Zipcode | Phone Number | | Organization | | | | + + + + + | [facility] | [address] | [place] | [phone] | | [facility] | | [address] | | | - LABORATORY | | | | + + + + + POC Glucose (02/14/2017 11:49 AM PST) + +---------+ + + + | Component | Value | Ref Range | Performed | Pathologist | | | | | At | Signature | + +---------+ + + + | Glucose, | 180 (H) | 70 - 109 mg/dL | [facility] | | | POC | | | [facility] | | | | | | MEDICAL | | | | | | CENTER - | | | | | | LABORATORY | | + +---------+ + + + + + | Specimen | + + | Blood | + + + + + + + | Performing | Address | City/State/Zipcode | Phone Number | | Organization | | | | + + + + + | [facility] | [address] | [place] | [phone] | | [facility] | | [address] | | | - LABORATORY | | | | + + + + + Clostridium difficile A and B EIA (02/14/2017 11:38 AM PST) + + + + + + | Component | Value | Ref Range | Performed | Pathologist | | | | | At | Signature | + + + + + + | Clostridium | NegativeComment: | Negative | [facility] | | | Difficile | Negative for toxigenic | | [facility] | | | GDH Antigen | Clostridium difficile | | MEDICAL | | | | | | CENTER - | | | | | | LABORATORY | | + + + + + + | C. Diff | Negative | Negative | [facility] | | | Toxin A/B | | | [facility] | | | EIA | | | MEDICAL | | | | | | CENTER - | | | | | | LABORATORY | | + + + + + + + + | Specimen | + + | Stool - Stool | | specimen (specimen) | + + + + + + + | Performing | Address | City/State/Zipcode | Phone Number | | Organization | | | | + + + + + | [facility] | [address] | [place] | [phone] | | [facility] | | [address] | | | - LABORATORY | | | | + + + + + PTT (02/14/2017 10:19 AM PST) + +--------+ + + + | Component | Value | Ref Range | Performed | Pathologist | | | | | At | Signature | + +--------+ + + + | aPTT | 40 (H) | 22 - 36 seconds | [facility] | | | | | | [facility] | | | | | | MEDICAL | | | | | | CENTER - | | | | | | LABORATORY | | + +--------+ + + + + + | Specimen | + + | Blood | + + + + + + + | Performing | Address | City/State/Zipcode | Phone Number | | Organization | | | | + + + + + | [facility] | [address] | [place] | [phone] | | [facility] | | [address] | | | - LABORATORY | | | | + + + + + POC Glucose (02/14/2017 8:22 AM PST) + +---------+ + + + | Component | Value | Ref Range | Performed | Pathologist | | | | | At | Signature | + +---------+ + + + | Glucose, | 175 (H) | 70 - 109 mg/dL | [facility] | | | POC | | | [facility] | | | | | | MEDICAL | | | | | | CENTER - | | | | | | LABORATORY | | + +---------+ + + + + + | Specimen | + + | Blood | + + + + + + + | Performing | Address | City/State/Zipcode | Phone Number | | Organization | | | | + + + + + | [facility] | [address] | [place] | [phone] | | [facility] | | [address] | | | - LABORATORY | | | | + + + + + Extra Lavender Top Tube (02/14/2017 8:10 AM PST) + +-------+ + + + | Component | Value | Ref Range | Performed | Pathologist | | | | | At | Signature | + +-------+ + + + | Extra | Done | | [facility] | | | Obeyender | | | [facility] | | | Top Tube | | | MEDICAL | | | | | | CENTER - | | | | | | LABORATORY | | + +-------+ + + + + + | Specimen | + + | Blood | + + + + + + + | Performing | Address | City/State/Zipcode | Phone Number | | Organization | | | | + + + + + | [facility] | [address] | [place] | [phone] | | [facility] | | [address] | | | - LABORATORY | | | | + + + + + Troponin I (02/14/2017 8:07 AM PST) + + + + + + | Component | Value | Ref Range | Performed | Pathologist | | | | | At | Signature | + + + + + + | Troponin I | 10.82 ()Comment: | <0.06 ng/mL | [facility] | | | | Reference | | [facility] | | | | Ranges:0.00-0.06 = | | MEDICAL | | | | NORMAL>0.06 = | | CENTER - | | | | SUSPICIOUS FOR | | LABORATORY | | | | MYOCARDIAL DAMAGE NOTE: | | | | | | Values greater than 0.50 | | | | | | ng/mL have been shown | | | | | | to be strongly | | | | | | associated with acute | | | | | | myocardial infarction. | | | | | | The [place] [employer] of | | | | | | Cardiology (ACC) | | | | | | recommends a decision | | | | | | limit of 0.06 ng/mL for | | | | | | this assay. Results | | | | | | greater than 0.06 can | | | | | | reflect a pre-infarct | | | | | | acute coronary syndrome, | | | | | | but can also reflect | | | | | | myocardial necrosis or | | | | | | injury that is not due | | | | | | to coronary artery | | | | | | disease. Some of these | | | | | | causes are sepsis, | | | | | | hypocolemia, atrial | | | | | | fibrillation, heart | | | | | | failure, pulmonary | | | | | | embolism, myocarditis, | | | | | | myocardial contusion, | | | | | | and renal failure. The | | | | | | diagnosis of myocardial | | | | | | infarction should be | | | | | | based on a combination | | | | | | of the patient's | | | | | | clinical presentation | | | | | | and the clinical | | | | | | laboratory test results | | | | | | (especially serial | | | | | | troponin levels). | | | | | | Consistent with previous | | | | | | results. | | | | + + + + + + + + | Specimen | + + | Blood | + + + + + + + | Performing | Address | City/State/Zipcode | Phone Number | | Organization | | | | + + + + + | [facility] | [address] | [place] | [phone] | | [facility] | | [address] | | | - LABORATORY | | | | + + + + + POC Glucose (02/14/2017 6:34 AM PST) + +---------+ + + + | Component | Value | Ref Range | Performed | Pathologist | | | | | At | Signature | + +---------+ + + + | Glucose, | 224 (H) | 70 - 109 mg/dL | [facility] | | | POC | | | [facility] | | | | | | MEDICAL | | | | | | CENTER - | | | | | | LABORATORY | | + +---------+ + + + + + | Specimen | + + | Blood | + + + + + + + | Performing | Address | City/State/Zipcode | Phone Number | | Organization | | | | + + + + + | [facility] | [address] | [place] | [phone] | | [facility] | | [address] | | | - LABORATORY | | | | + + + + + XR Chest AP Portable (02/14/2017 5:48 AM PST) + + | Specimen | + + | | + + + + + | Narrative | Performed At | + + + | CLINICAL INFORMATION: Follow up on Pulmonary edema. | [facility] | | COMPARISON: 02/13/2017. FINDINGS: Portable frontal chest | | | radiograph Lungs: Stable interstitial thickening throughout the | | | lungs but most prominent in the perihilar regions. No focal | | | airspace consolidation. No pleural effusion or pneumothorax. | | | Heart/mediastinum: Cardiac silhouette is of normal size. No | | | mediastinal widening. Bones: No acute osseous abnormality | | | appreciated. IMPRESSION - Overall unchanged appearance of probable | | | mild pulmonary edema. Dictated and Signed by: Abiel Meza MD | | | Electronically signed: 02/14/2017 8:58 AM | | + + + + + | Procedure Note | + + | Meir, Rad Results In - 02/14/2017 9:01 AM PST | | CLINICAL INFORMATION: Follow up on Pulmonary edema. | | | | COMPARISON: 02/13/2017. | | | | FINDINGS: | | Portable frontal chest radiograph | | | | Lungs: Stable interstitial thickening throughout the lungs but most prominent in | | the perihilar regions. No focal airspace consolidation. No pleural effusion or | | pneumothorax. | | | | Heart/mediastinum: Cardiac silhouette is of normal size. No mediastinal | | widening. | | | | Bones: No acute osseous abnormality appreciated. | | | | IMPRESSION - Overall unchanged appearance of probable mild pulmonary edema. | | | | Dictated and Signed by: Abiel Meza MD | | Electronically signed: 02/14/2017 8:58 AM | + + + +---------+ + + | Performing | Address | City/State/Zipcode | Phone Number | | Organization | | | | + +---------+ + + | [facility] | | | | + +---------+ + + PTT (02/14/2017 3:04 AM PST) + +-------+ + + + | Component | Value | Ref Range | Performed | Pathologist | | | | | At | Signature | + +-------+ + + + | aPTT | 33 | 22 - 36 seconds | [facility] | | | | | | [facility] | | | | | | MEDICAL | | | | | | CENTER - | | | | | | LABORATORY | | + +-------+ + + + + + | Specimen | + + | Blood | + + + + + + + | Performing | Address | City/State/Zipcode | Phone Number | | Organization | | | | + + + + + | [facility] | [address] | [place] | [phone] | | [facility] | | [address] | | | - LABORATORY | | | | + + + + + B Type Natriuretic Peptide (02/14/2017 3:04 AM PST) + +---------+ + + + | Component | Value | Ref Range | Performed | Pathologist | | | | | At | Signature | + +---------+ + + + | BNP | 174 (H) | <100 pg/mL | [facility] | | | | | | [facility] | | | | | | MEDICAL | | | | | | CENTER - | | | | | | LABORATORY | | + +---------+ + + + + + | Specimen | + + | Blood | + + + + + + + | Performing | Address | City/State/Zipcode | Phone Number | | Organization | | | | + + + + + | [facility] | [address] | [place] | [phone] | | [facility] | | [address] | | | - LABORATORY | | | | + + + + + Hemoglobin A1C (02/14/2017 3:04 AM PST) + + + + + + | Component | Value | Ref Range | Performed | Pathologist | | | | | At | Signature | + + + + + + | Hemoglobin | 10.6 (H) | 4.3 - 6.0 % | [facility] | | | A1c | | | [facility] | | | | | | MEDICAL | | | | | | CENTER - | | | | | | LABORATORY | | + + + + + + | Estimated | 258 | mg/dL | [facility] | | | Average | | | [facility] | | | Glucose | | | MEDICAL | | | | | | CENTER - | | | | | | LABORATORY | | + + + + + + + + | Specimen | + + | Blood | + + + + + + + | Performing | Address | City/State/Zipcode | Phone Number | | Organization | | | | + + + + + | [facility] | [address] | [place] | [phone] | | [facility] | | [address] | | | - LABORATORY | | | | + + + + + Phosphorus (02/14/2017 3:04 AM PST) + +-------+ + + + | Component | Value | Ref Range | Performed | Pathologist | | | | | At | Signature | + +-------+ + + + | Phosphorus | 4.0 | 2.5 - 4.6 mg/dL | [facility] | | | | | | [facility] | | | | | | MEDICAL | | | | | | CENTER - | | | | | | LABORATORY | | + +-------+ + + + + + | Specimen | + + | Blood | + + + + + + + | Performing | Address | City/State/Zipcode | Phone Number | | Organization | | | | + + + + + | [facility] | [address] | [place] | [phone] | | [facility] | | [address] | | | - LABORATORY | | | | + + + + + Magnesium (02/14/2017 3:04 AM PST) + +---------+ + + + | Component | Value | Ref Range | Performed | Pathologist | | | | | At | Signature | + +---------+ + + + | Magnesium | 1.7 (L) | 1.8 - 2.5 mg/dL | [facility] | | | | | | [facility] | | | | | | MEDICAL | | | | | | CENTER - | | | | | | LABORATORY | | + +---------+ + + + + + | Specimen | + + | Blood | + + + + + + + | Performing | Address | City/State/Zipcode | Phone Number | | Organization | | | | + + + + + | [facility] | [address] | [place] | [phone] | | [facility] | | [address] | | | - LABORATORY | | | | + + + + + Comprehensive Metabolic Panel (02/14/2017 3:04 AM PST) + + + + + + | Component | Value | Ref Range | Performed | Pathologist | | | | | At | Signature | + + + + + + | Na | 136 | 136 - 149 | [facility] | | | | | mmol/L | [facility] | | | | | | MEDICAL | | | | | | CENTER - | | | | | | LABORATORY | | + + + + + + | K | 4.1 | 3.5 - 5.1 | [facility] | | | | | mmol/L | [facility] | | | | | | MEDICAL | | | | | | CENTER - | | | | | | LABORATORY | | + + + + + + | Cl | 107 | 98 - 109 mmol/L | [facility] | | | | | | [facility] | | | | | | MEDICAL | | | | | | CENTER - | | | | | | LABORATORY | | + + + + + + | CO2 | 22 (L) | 24 - 31 mmol/L | [facility] | | | | | | [facility] | | | | | | MEDICAL | | | | | | CENTER - | | | | | | LABORATORY | | + + + + + + | Anion Gap | 7 | 3 - 16 mmol/L | [facility] | | | | | | [facility] | | | | | | MEDICAL | | | | | | CENTER - | | | | | | LABORATORY | | + + + + + + | Glucose | 250 (H) | 70 - 109 mg/dL | [facility] | | | | | | [facility] | | | | | | MEDICAL | | | | | | CENTER - | | | | | | LABORATORY | | + + + + + + | BUN | 15 | 7 - 18 mg/dL | [facility] | | | | | | [facility] | | | | | | MEDICAL | | | | | | CENTER - | | | | | | LABORATORY | | + + + + + + | Creatinine | 0.50 (L) | 0.60 - 1.30 | [facility] | | | | | mg/dL | [facility] | | | | | | MEDICAL | | | | | | CENTER - | | | | | | LABORATORY | | + + + + + + | eGFR, | >60Comment: GLOMERULAR | >=60 | [facility] | | | non- | FILTRATION | mL/min/1.73m2 | [facility] | | | [place] | RATE,ESTIMATED | | MEDICAL | | | | mL/min/1.19j5Avnq than | | CENTER - | | | | 60 Chronic kidney | | LABORATORY | | | | disease,if found over a | | | | | | 3-month period.Less than | | | | | | 15 Kidney failureFor | | | | | | | | | | | | Americans,multiply the | | | | | | calculated GFR by 1.21. | | | | | | | | | | + + + + + + | Calcium | 8.7 | 8.3 - 10.5 | [facility] | | | | | mg/dL | [facility] | | | | | | MEDICAL | | | | | | CENTER - | | | | | | LABORATORY | | + + + + + + | Albumin | 2.8 (L) | 3.2 - 5.0 g/dL | [facility] | | | | | | [facility] | | | | | | MEDICAL | | | | | | CENTER - | | | | | | LABORATORY | | + + + + + + | Bilirubin | 0.3 | 0.1 - 1.5 mg/dL | [facility] | | | Total | | | [facility] | | | | | | MEDICAL | | | | | | CENTER - | | | | | | LABORATORY | | + + + + + + | Total | 6.0 | 6.0 - 7.8 g/dL | [facility] | | | Protein | | | [facility] | | | | | | MEDICAL | | | | | | CENTER - | | | | | | LABORATORY | | + + + + + + | AST | 91 (H) | 10 - 42 U/L | [facility] | | | | | | [facility] | | | | | | MEDICAL | | | | | | CENTER - | | | | | | LABORATORY | | + + + + + + | ALT | 43 | 6 - 45 U/L | [facility] | | | | | | [facility] | | | | | | MEDICAL | | | | | | CENTER - | | | | | | LABORATORY | | + + + + + + | Alkaline | 96 | 40 - 110 U/L | [facility] | | | Phosphatase | | | [facility] | | | | | | MEDICAL | | | | | | CENTER - | | | | | | LABORATORY | | + + + + + + | Globulin | 3.2 | 2.1 - 3.8 g/dL | [facility] | | | | | | [facility] | | | | | | MEDICAL | | | | | | CENTER - | | | | | | LABORATORY | | + + + + + + | Albumin/Keyla | 0.9 | 0.8 - 2.0 | [facility] | | | bulin Ratio | | | [facility] | | | | | | MEDICAL | | | | | | CENTER - | | | | | | LABORATORY | | + + + + + + | BUN/Creatin | 30.0 | | [facility] | | | ine Ratio | | | [facility] | | | | | | MEDICAL | | | | | | CENTER - | | | | | | LABORATORY | | + + + + + + + + | Specimen | + + | Blood | + + + + + + + | Performing | Address | City/State/Zipcode | Phone Number | | Organization | | | | + + + + + | [facility] | [address] | [place] | [phone] | | [facility] | | [address] | | | - LABORATORY | | | | + + + + + CBC with Differential (02/14/2017 3:04 AM PST) + + + + + + | Component | Value | Ref Range | Performed | Pathologist | | | | | At | Signature | + + + + + + | White Blood | 14.8 (H) | 4.0 - 11.0 K/uL | [facility] | | | Cells | | | [facility] | | | | | | MEDICAL | | | | | | CENTER - | | | | | | LABORATORY | | + + + + + + | Red Blood | 4.35 | 3.70 - 5.20 | [facility] | | | Cells | | M/uL | [facility] | | | | | | MEDICAL | | | | | | CENTER - | | | | | | LABORATORY | | + + + + + + | Hemoglobin | 13.0 | 11.5 - 16.0 | [facility] | | | | | g/dL | [facility] | | | | | | MEDICAL | | | | | | CENTER - | | | | | | LABORATORY | | + + + + + + | Hematocrit | 38.6 | 34.0 - 47.0 % | [facility] | | | | | | [facility] | | | | | | MEDICAL | | | | | | CENTER - | | | | | | LABORATORY | | + + + + + + | MCV | 88.6 | 83.0 - 101.0 fL | [facility] | | | | | | [facility] | | | | | | MEDICAL | | | | | | CENTER - | | | | | | LABORATORY | | + + + + + + | MCH | 29.9 | 28.0 - 35.0 pg | [facility] | | | | | | [facility] | | | | | | MEDICAL | | | | | | CENTER - | | | | | | LABORATORY | | + + + + + + | MCHC | 33.7 | 32.0 - 36.0 | [facility] | | | | | g/dL | [facility] | | | | | | MEDICAL | | | | | | CENTER - | | | | | | LABORATORY | | + + + + + + | RDW-CV | 13.2 | <15.0 % | [facility] | | | | | | [facility] | | | | | | MEDICAL | | | | | | CENTER - | | | | | | LABORATORY | | + + + + + + | Platelet | 224 | 140 - 440 K/uL | [facility] | | | Count | | | [facility] | | | | | | MEDICAL | | | | | | CENTER - | | | | | | LABORATORY | | + + + + + + | MPV | 8.9 | fL | [facility] | | | | | | [facility] | | | | | | MEDICAL | | | | | | CENTER - | | | | | | LABORATORY | | + + + + + + | % | 67.9 | 45.0 - 82.0 % | [facility] | | | Neutrophils | | | [facility] | | | | | | MEDICAL | | | | | | CENTER - | | | | | | LABORATORY | | + + + + + + | % | 22.4 | 20.0 - 45.0 % | [facility] | | | Lymphocytes | | | [facility] | | | | | | MEDICAL | | | | | | CENTER - | | | | | | LABORATORY | | + + + + + + | % Monocytes | 6.9 | 4.0 - 12.0 % | [facility] | | | | | | [facility] | | | | | | [facility] | | | | | | [facility] - | | | | | | LABORATORY | | + + + + + + | % | 2.3 | 0.0 - 5.0 % | [facility] | | | Eosinophils | | | [facility] | | | | | | [facility] | | | | | | CENTER - | | | | | | LABORATORY | | + + + + + + | % Basophils | 0.5 | 0.0 - 1.0 % | [facility] | | | | | | [facility] | | | | | | [facility] | | | | | | [facility] - | | | | | | LABORATORY | | + + + + + + | Absolute | 10.00 (H) | 1.80 - 8.50 | [facility] | | | Neutrophils | | K/uL | [facility] | | | | | | [facility] | | | | | | [facility] - | | | | | | LABORATORY | | + + + + + + | Absolute | 3.30 (H) | 0.60 - 3.20 | [facility] | | | Lymphocytes | | K/uL | [facility] | | | | | | [facility] | | | | | | [facility]ENTER - | | | | | | LABORATORY | | + + + + + + | Absolute | 1.00 | 0.00 - 1.00 | [facility] | | | Monocytes | | K/uL | [facility] | | | | | | [facility] | | | | | | [facility]ENTER - | | | | | | LABORATORY | | + + + + + + | Absolute | 0.30 | 0.00 - 0.40 | [facility] | | | Eosinophils | | K/uL | [facility] | | | | | | [facility] | | | | | | CENTER - | | | | | | LABORATORY | | + + + + + + | Absolute | 0.10 | 0.00 - 0.10 | [facility] | | | Basophils | | K/uL | [facility] | | | | | | [facility] | | | | | | [facility]ENTER - | | | | | | LABORATORY | | + + + + + + + + | Specimen | + + | Blood | + + + + + + + | Performing | Address | City/State/Zipcode | Phone Number | | Organization | | | | + + + + + | [facility] | [address] | [place] | [phone] | | [facility] | | [id number] | | | - LABORATORY | | | | + + + + + Troponin I (02/14/2017 12:02 AM PST) + + + + + + | Component | Value | Ref Range | Performed | Pathologist | | | | | At | Signature | + + + + + + | Troponin I | 12.56 ()Comment: | <0.06 ng/mL | [facility] | | | | Reference | | [facility] | | | | Ranges:0.00-0.06 = | | MEDICAL | | | | NORMAL>0.06 = | | CENTER - | | | | SUSPICIOUS FOR | | LABORATORY | | | | MYOCARDIAL DAMAGE NOTE: | | | | | | Values greater than 0.50 | | | | | | ng/mL have been shown | | | | | | to be strongly | | | | | | associated with acute | | | | | | myocardial infarction. | | | | | | Consistent with previous | | | | | | results. The [place] | | | | | | [employer] | | | | | | (ACC) recommends a | | | | | | decision limit of 0.06 | | | | | | ng/mL for this assay. | | | | | | Results greater than | | | | | | 0.06 can reflect a | | | | | | pre-infarct acute | | | | | | coronary syndrome, but | | | | | | can also reflect | | | | | | myocardial necrosis or | | | | | | injury that is not due | | | | | | to coronary artery | | | | | | disease. Some of these | | | | | | causes are sepsis, | | | | | | hypocolemia, atrial | | | | | | fibrillation, heart | | | | | | failure, pulmonary | | | | | | embolism, myocarditis, | | | | | | myocardial contusion, | | | | | | and renal failure. The | | | | | | diagnosis of myocardial | | | | | | infarction should be | | | | | | based on a combination | | | | | | of the patient's | | | | | | clinical presentation | | | | | | and the clinical | | | | | | laboratory test results | | | | | | (especially serial | | | | | | troponin levels). | | | | + + + + + + + + | Specimen | + + | Blood | + + + + + + + | Performing | Address | City/State/Zipcode | Phone Number | | Organization | | | | + + + + + | [facility] | [address] | [place] | [phone] | | [facility] | | [address] | | | - LABORATORY | | | | + + + + + Basic Metabolic Panel (02/14/2017 12:02 AM PST) + + + + + + | Component | Value | Ref Range | Performed | Pathologist | | | | | At | Signature | + + + + + + | Na | 136 | 136 - 149 | [facility] | | | | | mmol/L | [facility] | | [facility] | [facility] | | | [facility] - | | | | | | LABORATORY | | + + + + + + | K | 3.8 | 3.5 - 5.1 | [facility] | | | | | mmol/L | [facility] | | | [facility] | [facility] | | | | | | [facility] - | | | | | | LABORATORY | | + + + + + + | Cl | 107 | 98 - 109 mmol/L | [facility] | | | | | | [facility] | | | [facility] | [facility] | | | | | | [facility] - | | | | | | LABORATORY | | + + + + + + | CO2 | 22 (L) | 24 - 31 mmol/L | [facility] | | | | | | [facility] | [facility] | [facility] | | | | | | [facility] - | | | | | | LABORATORY | | + + + + + + | Anion Gap | 7 | 3 - 16 mmol/L | [facility] | | | | | | [facility] | [facility] | [facility] | | | | | | [facility] - | | | | | | LABORATORY | | + + + + + + | Glucose | 285 (H) | 70 - 109 mg/dL | [facility] | | | | | | [facility] | [facility] | | | | | | [facility] - | | | | | | LABORATORY | | + + + + + + | BUN | 14 | 7 - 18 mg/dL | [facility] | | | | | | [facility] | [facility] | [facility] | | | | | | [facility] - | | | | | | LABORATORY | | + + + + + + | Creatinine | 0.62 | 0.60 - 1.30 | [facility] | | | | | mg/dL | [facility] | | | | | | [facility] | | | | | | [facility] - | | | | | | LABORATORY | | + + + + + + | eGFR, | >60Comment: GLOMERULAR | >=60 | [facility] | | | non- | FILTRATION | mL/min/1.73m2 | [facility] | | | [place] | RATE,ESTIMATED | | MEDICAL | | | | mL/min/1.02b6Ukkv than | | CENTER - | | | | 60 Chronic kidney | | LABORATORY | | | | disease,if found over a | | | | | | 3-month period.Less than | | | | | | 15 Kidney failureFor | | | | | | | | | | | | Americans,multiply the | | | | | | calculated GFR by 1.21. | | | | | | | | | | + + + + + + | Calcium | 8.5 | 8.3 - 10.5 | [facility] | | | | | mg/dL | [facility] | | | | | | [facility] | | | | | | CENTER - | | | | | | LABORATORY | | + + + + + + | BUN/Creatin | 22.6 | | [facility] | | | ine Ratio | | | [facility] | | [facility] | [facility] | | | | | | CENTER - | | | | | | LABORATORY | | + + + + + + + + | Specimen | + + | Blood | + + + + + + + | Performing | Address | City/State/Zipcode | Phone Number | | Organization | | | | + + + + + | [facility] | [address] | [place] | [phone] | | [facility] | | [address] | | | - LABORATORY | | | | + + + + + CBC with Differential (02/14/2017 12:02 AM PST) + + + + + + | Component | Value | Ref Range | Performed | Pathologist | | | | | At | Signature | + + + + + + | White Blood | 15.6 (H) | 4.0 - 11.0 K/uL | [facility] | | | Cells | | | [facility] | | | | | [facility] | | | | | | [facility] - | | | | | | LABORATORY | | + + + + + + | Red Blood | 4.23 | 3.70 - 5.20 | [facility] | | | Cells | | M/uL | [facility] | | | | | | [facility] | | | | | | CENTER - | | | | | | LABORATORY | | + + + + + + | Hemoglobin | 12.6 | 11.5 - 16.0 | [facility] | | | | | g/dL | [facility] | | | | | | [facility] | | | | | | [facility] - | | | | | | LABORATORY | | + + + + + + | Hematocrit | 37.6 | 34.0 - 47.0 % | [facility] | | | | | | [facility] | [facility] | [facility] | | | | | | [facility] - | | | | | | LABORATORY | | + + + + + + | MCV | 88.9 | 83.0 - 101.0 fL | [facility] | | | | | | [facility] | | [facility] | [facility] | | | | | | [facility] - | | | | | | LABORATORY | | + + + + + + | MCH | 29.8 | 28.0 - 35.0 pg | [facility] | | | | | | [facility] | | [facility] | | [facility] | | | | | | [facility] - | | | | | | LABORATORY | | + + + + + + | MCHC | 33.6 | 32.0 - 36.0 | [facility] | | | | | g/dL | [facility] | | | | | | [facility] | | | | | | CENTER - | | | | | | LABORATORY | | + + + + + + | RDW-CV | 13.1 | <15.0 % | [facility] | | | | | | [facility] | | | | [facility] | [facility] | | | | | | [facility]ENTER - | | | | | | LABORATORY | | + + + + + + | Platelet | 232 | 140 - 440 K/uL | [facility] | | | Count | | | [facility] | | | | | | [facility] | | | | | | CENTER - | | | | | | LABORATORY | | + + + + + + | MPV | 9.1 | fL | [facility] | | | | | | [facility] | | | [facility] | | [facility] | | | | | | [facility] - | | | | | | LABORATORY | | + + + + + + | % | 65.3 | 45.0 - 82.0 % | [facility] | | | Neutrophils | | | [facility] | | | | | | [facility] | | | | | | CENTER - | | | | | | LABORATORY | | + + + + + + | % | 25.1 | 20.0 - 45.0 % | [facility] | | | Lymphocytes | | | [facility] | | | | | | [facility] | | | | | | CENTER - | | | | | | LABORATORY | | + + + + + + | % Monocytes | 6.0 | 4.0 - 12.0 % | [facility] | | | | | | [facility] | | | | | | [facility] | | | | | | CENTER - | | | | | | LABORATORY | | + + + + + + | % | 2.9 | 0.0 - 5.0 % | [facility] | | | Eosinophils | | | [facility] | | | | | | [facility] | | | | | | CENTER - | | | | | | LABORATORY | | + + + + + + | % Basophils | 0.7 | 0.0 - 1.0 % | [facility] | | | | | | [facility] | | | | | | [facility] | | | | | | [facility] - | | | | | | LABORATORY | | + + + + + + | Absolute | 10.20 (H) | 1.80 - 8.50 | [facility] | | | Neutrophils | | K/uL | [facility] | | | | | | [facility] | | | | | | CENTER - | | | | | | LABORATORY | | + + + + + + | Absolute | 3.90 (H) | 0.60 - 3.20 | [facility] | | | Lymphocytes | | K/uL | [facility] | | | | | | [facility] | | | | | | CENTER - | | | | | | LABORATORY | | + + + + + + | Absolute | 0.90 | 0.00 - 1.00 | [facility] | | | Monocytes | | K/uL | [facility] | | | | | | [facility] | | | | | | CENTER - | | | | | | LABORATORY | | + + + + + + | Absolute | 0.40 | 0.00 - 0.40 | [facility] | | | Eosinophils | | K/uL | [facility] | | | | | | [facility] | | | | | | CENTER - | | | | | | LABORATORY | | + + + + + + | Absolute | 0.10 | 0.00 - 0.10 | [facility] | | | Basophils | | K/uL | [facility] | | | | | | [facility] | | | | | | CENTER - | | | | | | LABORATORY | | + + + + + + + + | Specimen | + + | Blood | + + + + + + + | Performing | Address | City/State/Zipcode | Phone Number | | Organization | | | | + + + + + | [facility] | [address] | [place] | [phone] | | [facility] | | [address] | | | - LABORATORY | | | | + + + + + POC Glucose (02/13/2017 8:45 PM PST) + +---------+ + + + | Component | Value | Ref Range | Performed | Pathologist | | | | | At | Signature | + +---------+ + + + | Glucose, | 264 (H) | 70 - 109 mg/dL | [facility] | | | POC | | | [facility] | | | | | | [facility]ICAL | | | | | | CENTER - | | | | | | LABORATORY | | + +---------+ + + + + + | Specimen | + + | Blood | + + + + + + + | Performing | Address | City/State/Zipcode | Phone Number | | Organization | | | | + + + + + | [facility] | [address] | [place] | [phone] | | [facility] | | [address] | | | - LABORATORY | | | | + + + + + PTT (02/13/2017 8:45 PM PST) + +-------+ + + + | Component | Value | Ref Range | Performed | Pathologist | | | | | At | Signature | + +-------+ + + + | aPTT | 28 | 22 - 36 seconds | [facility] | | | | | | [facility] | | [facility] | [facility] | | | | | | CENTER - | | | | | | LABORATORY | | + +-------+ + + + + + | Specimen | + + | Blood | + + + + + + + | Performing | Address | City/State/Zipcode | Phone Number | | Organization | | | | + + + + + | [facility] | [address] | [place] | [phone] | | [facility] | | [address] | | | - LABORATORY | | | | + + + + + PTT (02/13/2017 7:08 PM PST) + +-------+ + + + | Component | Value | Ref Range | Performed | Pathologist | | | | | At | Signature | + +-------+ + + + | aPTT | 30 | 22 - 36 seconds | [facility] | | | | | | [facility] | | | | | | [facility] | | | | | | CENTER - | | | | | | LABORATORY | | + +-------+ + + + + + | Specimen | + + | Blood | + + + + + + + | Performing | Address | City/State/Zipcode | Phone Number | | Organization | | | | + + + + + | [facility] | [address] | [place] | [phone] | | [facility] | | [address] | | | - LABORATORY | | | | + + + + + POC Glucose (02/13/2017 5:03 PM PST) + +---------+ + + + | Component | Value | Ref Range | Performed | Pathologist | | | | | At | Signature | + +---------+ + + + | Glucose, | 276 (H) | 70 - 109 mg/dL | [facility] | | | POC | | | [facility] | | | | [facility] | | | | | | CENTER - | | | | | | LABORATORY | | + +---------+ + + + + + | Specimen | + + | Blood | + + + + + + + | Performing | Address | City/State/Zipcode | Phone Number | | Organization | | | | + + + + + | [facility] | [address] | [place] | [phone] | | [facility] | | [address] | | | - LABORATORY | | | | + + + + + Troponin I (02/13/2017 5:00 PM PST) + + + + + + | Component | Value | Ref Range | Performed | Pathologist | | | | | At | Signature | + + + + + + | Troponin I | 14.52 ()Comment: | <0.06 ng/mL | [facility] | | | | Critical Result called | | [facility] | | | | to and read back by | | MEDICAL | | | | Leandro Garcia/ADRIENNE on | | CENTER - | | | | 02/13/2017 at 17:54 by | | LABORATORY | | | | Bernabe Adams. | | | | | | Reference | | | | | | Ranges:0.00-0.06 = | | | | | | NORMAL>0.06 = | | | | | | SUSPICIOUS FOR | | | | | | MYOCARDIAL DAMAGE NOTE: | | | | | | Values greater than 0.50 | | | | | | ng/mL have been shown | | | | | | to be strongly | | | | | | associated with acute | | | | | | myocardial infarction. | | | | | | The [place] [employer] | | | | | | Cardiology (ACC) | | | | | | recommends a decision | | | | | | limit of 0.06 ng/mL for | | | | | | this assay. Results | | | | | | greater than 0.06 can | | | | | | reflect a pre-infarct | | | | | | acute coronary syndrome, | | | | | | but can also reflect | | | | | | myocardial necrosis or | | | | | | injury that is not due | | | | | | to coronary artery | | | | | | disease. Some of these | | | | | | causes are sepsis, | | | | | | hypocolemia, atrial | | | | | | fibrillation, heart | | | | | | failure, pulmonary | | | | | | embolism, myocarditis, | | | | | | myocardial contusion, | | | | | | and renal failure. The | | | | | | diagnosis of myocardial | | | | | | infarction should be | | | | | | based on a combination | | | | | | of the patient's | | | | | | clinical presentation | | | | | | and the clinical | | | | | | laboratory test results | | | | | | (especially serial | | | | | | troponin levels). | | | | + + + + + + + + | Specimen | + + | Blood | + + + + + + + | Performing | Address | City/State/Zipcode | Phone Number | | Organization | | | | + + + + + | [facility] | [address] | [place] | [phone] | | [facility] | | [address] | | | - LABORATORY | | | | + + + + + ECHO Complete (02/13/2017 3:00 PM PST) + +-------+ + + + | Component | Value | Ref Range | Performed | Pathologist | | | | | At | Signature | + +-------+ + + + | LVEF-TTE | 45 | | [facility] | | | TRANSTHORAC | | | | | | IC ECHO | | | | | + +-------+ + + + + + | Specimen | + + | | + + + +-- + | Narrative | P erformed At | + +-- + | Transthoracic | [facility] | | Echocardiography Report (TTE) Demographics Patient Name WILBER | | | NANCY Room Number 456 | | | EUFEMIA Patient Number [id number] Date of Study | | | 02/13/2017 Visit Number [id number] | | | Referring Physician ALLAN AMATO MD Number Date of | | | 1970 Public Health Director [place] | | | [place], | | | [place] Age 46 year(s) | | | Interpreting ALLAN AMATO MD | | | Employment Instructional Associate [employer] | | | [employer] | | | Gender Female | | | Nurse Stress | | | Regional Manager Procedure Type of Study TTE procedure: ECHO Complete. | | | Procedure dateDate: 02/13/2017Start: 02:08 PM Technical Quality: | | | Adequate visualizationStudy Location: ICU Patient Status: | | | RoutineHeight: 66 inchesWeight: 210.1 poundsBSA: 2.04 m^2BMI: 33.91 | | | kg/m^2Rhythm: Normal Sinus Rhythm ConclusionsSummary1. Normal left | | | ventricular size and wall thickness. There is a severehypokinesis of | | | the mid and distal anterior, anteroseptal region, includingapex. | | | Overall, left ventricular systolic function is mildly decreased. | | | LVEFis 45-50%.2. Grade 1 left ventricular diastolic dysfunction.3. | | | Normal valvular structure.4. Normal right-sided pressure.5. Normal IVC | | | with normal respiratory collapse. | | | Signature | | | | | | AM | | | -------- FindingsMitral ValveStructurally normal mitral valve without | | | significant stenosis orregurgitation.Aortic ValveAortic valve is | | | trileaflet without significant stenosis or regurgitation.Tricuspid | | | ValveStructurally normal tricuspid valve without significant stenosis | | | orregurgitation.Pulmonic ValveStructurally normal pulmonic valve | | | without significant stenosis orregurgitation.Left AtriumNormal size | | | left atrium.Left VentricleNormal left ventricular cavity | | | size.Segmental wall motion abnormality with severe hypokinesis of the | | | mid anddistal anterior, anteroseptal region.Ejection fraction is | | | visually estimated at 45-50%.Impaired relaxation compatible with | | | diastolic dysfunction (reversed E/Aratio).Right AtriumNormal right | | | atrial size.Right VentricleNormal right ventricular size.Right | | | ventricle global systolic function is normal.TAPSE = 1.8 | | | cm.Pericardial EffusionNo evidence of pericardial effusion.Pleural | | | EffusionNo evidence of pleural effusion.MiscellaneousNormal aortic | | | root.The IVC appears normal.IVC respiratory change in dimension > 50%. | | | Valves Mitral Valve Peak E-Wave: 0.58 m/s Peak A-Wave: 0.68 m/s | | | Tissue Doppler Septal e' Velocity: 0.09 m/s Aortic Valve Structures | | | Left Atrium LA A/P Dimension: 3.4 cm | | | LA Area: 15.17 cm^2 LA Vol/BSA Index: 16 mL/m^2 | | | LA Volume: 31.68 ml | | | EF Vbnfthioo13% Left Ventricle | | | Diastolic Dimension: 4.04 cm Systolic Dimension: 2.95 cm | | | Septum Diastolic: 1.06 cm PW Diastolic: 1.06 cm EF Calculated: 45% | | | Miscellaneous Aorta Aortic Root: 3.51 cm Ascending Aorta: 3.51 cm | | | 02/14/2017 06:32 AM | | | | | | | | |Findings | | |Mitral Valve | | |Structurally normal mitral valve without significant stenosis or | | |regurgitation. | | |Aortic Valve | | |Aortic valve is trileaflet without significant stenosis or regurgitation. | | |Tricuspid Valve | | |Structurally normal tricuspid valve without significant stenosis or | | |regurgitation. | | |Pulmonic Valve | | |Structurally normal pulmonic valve without significant stenosis or | | |regurgitation. | | |Left Atrium | | |Normal size left atrium. | | |Left Ventricle | | |Normal left ventricular cavity size. | | |Segmental wall motion abnormality with severe hypokinesis of the mid and | | |distal anterior, anteroseptal region. | | |Ejection fraction is visually estimated at 45-50%. | | |Impaired relaxation compatible with diastolic dysfunction (reversed E/A | | |ratio). | | |Right Atrium | | |Normal right atrial size. | | |Right Ventricle | | |Normal right ventricular size. | | |Right ventricle global systolic function is normal. | | |TAPSE = 1.8 cm. | | |Pericardial Effusion | | |No evidence of pericardial effusion. | | |Pleural Effusion | | |No evidence of pleural effusion. | | |Miscellaneous | | |Normal aortic root. | | |The IVC appears normal. | | |IVC respiratory change in dimension > 50%. | | | | | |Valves | | | | | | Mitral Valve | | | | | | Peak E-Wave: 0.58 m/s | | | Peak A-Wave: 0.68 m/s | | | | | | Tissue Doppler | | | | | | Septal e' Velocity: 0.09 m/s | | | | | | Aortic Valve | | | | | |Structures | | | | | | Left Atrium | | | | | | LA A/P Dimension: 3.4 cm LA Area: 15.17 cm^2 | | | LA Vol/BSA Index: 16 mL/m^2 LA Volume: 31.68 ml | | | EF Qixxsfqit98% | | | | | | Left Ventricle | | | | | | Diastolic Dimension: 4.04 cm Systolic Dimension: 2.95 cm | | | Septum Diastolic: 1.06 cm | | | PW Diastolic: 1.06 cm | | | EF Calculated: 45% | | | | | | Miscellaneous | | | | | | Aorta | | | | | | Aortic Root: 3.51 cm | | | Ascending Aorta: 3.51 cm | | | | | + +-- + + + | Procedure Note | + + | Ross Worley Results In - 02/14/2017 6:32 AM [facility] Transthoracic Echocardiography Report | | (TTE) Demographics Patient Name WILBER HERNANDEZ Room Number 456 | | EUFEMIA Patient Number [id number] Date of Study 02/13/2017 Visit Number | | [id number] Referring Physician ALLAN AMATO MD | | Number Date of 1970 Public Health Director [place]AN[place], | | [place] Age 46 year(s) | | Interpreting ALLAN AMATO MD Employment Instructional Associate | | MONIKA COATES MD Gender | | Female Nurse Stress | | TechnicianProcedureType of Study TTE procedure: ECHO Complete.Procedure dateDate: | | 02/13/2017Start: 02:08 PMTechnical Quality: Adequate visualizationStudy Location: | | ICUPatient Status: RoutineHeight: 66 inchesWeight: 210.1 poundsBSA: 2.04 m^2BMI: 33.91 | | kg/m^2Rhythm: Normal Sinus RhythmConclusionsSummary1. Normal left ventricular size and | | wall thickness. There is a severehypokinesis of the mid and distal anterior, | | anteroseptal region, includingapex. Overall, left ventricular systolic function is | | mildly decreased. LVEFis 45-50%.2. Grade 1 left ventricular diastolic dysfunction.3. | | Normal valvular structure.4. Normal right-sided pressure.5. Normal IVC with normal | | respiratory | | collapse.Signature | | ------ Electronically signed by MONIKA COATES MD(Interpreting physician) on | | 02/14/2017 06:32 | | AM FindingsMi | | tral ValveStructurally normal mitral valve without significant stenosis | | orregurgitation.Aortic ValveAortic valve is trileaflet without significant stenosis or | | regurgitation.Tricuspid ValveStructurally normal tricuspid valve without significant | | stenosis orregurgitation.Pulmonic ValveStructurally normal pulmonic valve without | | significant stenosis orregurgitation.Left AtriumNormal size left atrium.Left | | VentricleNormal left ventricular cavity size.Segmental wall motion abnormality with | | severe hypokinesis of the mid anddistal anterior, anteroseptal region.Ejection fraction | | is visually estimated at 45-50%.Impaired relaxation compatible with diastolic | | dysfunction (reversed E/Aratio).Right AtriumNormal right atrial size.Right | | VentricleNormal right ventricular size.Right ventricle global systolic function is | | normal.TAPSE = 1.8 cm.Pericardial EffusionNo evidence of pericardial effusion.Pleural | | EffusionNo evidence of pleural effusion.MiscellaneousNormal aortic root.The IVC appears | | normal.IVC respiratory change in dimension > 50%.Valves Mitral Valve Peak E-Wave: 0.58 | | m/s Peak A-Wave: 0.68 m/s Tissue Doppler Septal e' Velocity: 0.09 m/s Aortic | | ValveStructures Left Atrium LA A/P Dimension: 3.4 cm LA Area: | | 15.17 cm^2 LA Vol/BSA Index: 16 mL/m^2 LA Volume: 31.68 ml | | EF Quhexrzif92% Left Ventricle Diastolic Dimension: | | 4.04 cm Systolic Dimension: 2.95 cm Septum Diastolic: 1.06 cm PW Diastolic: | | 1.06 cm EF Calculated: 45% Miscellaneous Aorta Aortic Root: 3.51 cm Ascending Aorta: | | 3.51 cm | |1. Normal left ventricular size and wall thickness. There is a severe | |hypokinesis of the mid and distal anterior, anteroseptal region, including | |apex. Overall, left ventricular systolic function is mildly decreased. LVEF | |is 45-50%. | |2. Grade 1 left ventricular diastolic dysfunction. | |3. Normal valvular structure. | |4. Normal right-sided pressure. | |5. Normal IVC with normal respiratory collapse. | | | |Signature | | | | Electronically signed by MONIKA COATES MD(Interpreting physician) on | | 02/14/2017 06:32 AM | | | | | |Findings | |Mitral Valve | |Structurally normal mitral valve without significant stenosis or | |regurgitation. | |Aortic Valve | |Aortic valve is trileaflet without significant stenosis or regurgitation. | |Tricuspid Valve | |Structurally normal tricuspid valve without significant stenosis or | |regurgitation. | |Pulmonic Valve | |Structurally normal pulmonic valve without significant stenosis or | |regurgitation. | |Left Atrium | |Normal size left atrium. | |Left Ventricle | |Normal left ventricular cavity size. | |Segmental wall motion abnormality with severe hypokinesis of the mid and | |distal anterior, anteroseptal region. | |Ejection fraction is visually estimated at 45-50%. | |Impaired relaxation compatible with diastolic dysfunction (reversed E/A | |ratio). | |Right Atrium | |Normal right atrial size. | |Right Ventricle | |Normal right ventricular size. | |Right ventricle global systolic function is normal. | |TAPSE = 1.8 cm. | |Pericardial Effusion | |No evidence of pericardial effusion. | |Pleural Effusion | |No evidence of pleural effusion. | |Miscellaneous | |Normal aortic root. | |The IVC appears normal. | |IVC respiratory change in dimension > 50%. | | | |Valves | | | | Mitral Valve | | | | Peak E-Wave: 0.58 m/s | | Peak A-Wave: 0.68 m/s | | | | Tissue Doppler | | | | Septal e' Velocity: 0.09 m/s | | | | Aortic Valve | | | |Structures | | | | Left Atrium | | | | LA A/P Dimension: 3.4 cm LA Area: 15.17 cm^2 | | LA Vol/BSA Index: 16 mL/m^2 LA Volume: 31.68 ml | | EF Dxneyobpj39% | | | | Left Ventricle | | | | Diastolic Dimension: 4.04 cm Systolic Dimension: 2.95 cm | | Septum Diastolic: 1.06 cm | | PW Diastolic: 1.06 cm | | EF Calculated: 45% | | | | Miscellaneous | | | | Aorta | | | | Aortic Root: 3.51 cm | | Ascending Aorta: 3.51 cm | + + + +---------+ + + | Performing | Address | City/State/Zipcode | Phone Number | | Organization | | | | + +---------+ + + | [facility] | | | | + +---------+ + + ECG 12 lead (02/13/2017 2:30 PM PST) + + + + + + | Component | Value | Ref Range | Performed | Pathologist | | | | | At | Signature | + + + + + + | VENTRICULAR | 91 | BPM | [facility] | | | RATE EKG | | | | | + + + + + + | ATRIAL RATE | 91 | BPM | [facility] | | + + + + + + | P-R | 152 | ms | [facility] | | | INTERVAL | | | | | + + + + + + | QRS | 90 | ms | [facility] | | | DURATION | | | | | + + + + + + | Q-T | 318 | ms | [facility] | | | INTERVAL | | | | | + + + + + + | Q-T | 391 | ms | [facility] | | | INTERVAL | | | | | | (CORRECTED) | | | | | + + + + + + | P WAVE AXIS | 58 | degrees | [facility] | | + + + + + + | QRS AXIS | 39 | degrees | [facility] | | + + + + + + | T AXIS | 42 | degrees | [facility] | | + + + + + + | INTERPRETAT | Normal sinus rhythmLow | | [facility] | | | ION TEXT | voltage QRSCannot rule | | | | | | out Anterior infarct | | | | | | (cited on or before | | | | | | 13-FEB-2017)Abnormal | | | | | | ECGWhen compared with | | | | | | ECG of 13-FEB-2017 | | | | | | 08:28, | | | | | | (Unconfirmed)Previous | | | | | | subtle Inferior ST | | | | | | elevation has resolved | | | | | | Confirmed by DAHLIA ADLER, | | | | | | BREANNA ([id number]) on | | | | | | 02/14/2017 6:39:08 AM | | | | + + + + + + + + | Specimen | + + | | + + + + + | Narrative | Performed At | + + + | | | + + + + +---------+ + + | Performing | Address | City/State/Zipcode | Phone Number | | Organization | | | | + +---------+ + + | [facility] | | | | + +---------+ + + POC Glucose (02/13/2017 11:49 AM PST) + +---------+ + + + | Component | Value | Ref Range | Performed | Pathologist | | | | | At | Signature | + +---------+ + + + | Glucose, | 330 (H) | 70 - 109 mg/dL | [facility] | | | [facility] | | | [facility] | | | | | | [facility] | | | | | | CENTER - | | | | | | LABORATORY | | + +---------+ + + + + + | Specimen | + + | Blood | + + + + + + + | Performing | Address | City/State/Zipcode | Phone Number | | Organization | | | | + + + + + | [facility] | [address] | [place] | [phone] | | [facility] | | [address] | | | - LABORATORY | | | | + + + + + PTT (02/13/2017 11:35 AM PST) + +--------+ + + + | Component | Value | Ref Range | Performed | Pathologist | | | | | At | Signature | + +--------+ + + + | aPTT | 38 (H) | 22 - 36 seconds | [facility] | | | | | | [facility] | | | | | | [facility] | | | | | | CENTER - | | | | | | LABORATORY | | + +--------+ + + + + + | Specimen | + + | Blood | + + + + + + + | Performing | Address | City/State/Zipcode | Phone Number | | Organization | | | | + + + + + | [facility] | [address] | [place], [place] | [phone] | | [facility] | | [address] | | | - LABORATORY | | | | + + + + + Culture, MRSA (02/13/2017 8:54 AM PST) + + + + + + | Component | Value | Ref Range | Performed | Pathologist | | | | | At | Signature | + + + + + + | Culture | Negative for MRSA by | | [facility] | | | | chromogenic agar method | | [facility] | | | | | | MEDICAL | | | | | | CENTER - | | | | | | LABORATORY | | + + + + + + | Culture | 3+ Coagulase positive | | [facility] | | | | Staphylococcus | | [facility] | | | | | | MEDICAL | | | | | | CENTER - | | | | | | LABORATORY | | + + + + + + + + | Specimen | + + | Respiratory - Both | | anterior nares (body | | structure) | + + + + + + + | Performing | Address | City/State/Zipcode | Phone Number | | Organization | | | | + + + + + | [facility] | [address] | [place] | [phone] | | [facility] | | [address] | | | - LABORATORY | | | | + + + + + Extra Lavender Top Tube (02/13/2017 8:41 AM PST) + +-------+ + + + | Component | Value | Ref Range | Performed | Pathologist | | | | | At | Signature | + +-------+ + + + | Extra | Done | | [facility] | | | Lavender | | | [facility] | | | Top Tube | | | MEDICAL | | | | | | CENTER - | | | | | | LABORATORY | | + +-------+ + + + + + | Specimen | + + | Blood | + + + + + + + | Performing | Address | City/State/Zipcode | Phone Number | | Organization | | | | + + + + + | [facility] | [address] | [place], [place] | [phone] | | [facility] | | [address] | | | - LABORATORY | | | | + + + + + Troponin I (02/13/2017 8:40 AM PST) + + + + + + | Component | Value | Ref Range | Performed | Pathologist | | | | | At | Signature | + + + + + + | Troponin I | 3.60 ()Comment: | <0.06 ng/mL | [facility] | | | | Reference | | [facility] | | | | Ranges:0.00-0.06 = | | MEDICAL | | | | NORMAL>0.06 = | | CENTER - | | | | SUSPICIOUS FOR | | LABORATORY | | | | MYOCARDIAL DAMAGE NOTE: | | | | | | Values greater than 0.50 | | | | | | ng/mL have been shown | | | | | | to be strongly | | | | | | associated with acute | | | | | | myocardial infarction. | | | | | | Critical Result called | | | | | | to and read back by | | | | | | Silvano Garcia on | | | | | | 02/13/2017 at 10:35 by | | | | | | Angel Banuelos. The | | | | | | [employer] | | | | | | Cardiology (ACC) | | | | | | recommends a decision | | | | | | limit of 0.06 ng/mL for | | | | | | this assay. Results | | | | | | greater than 0.06 can | | | | | | reflect a pre-infarct | | | | | | acute coronary syndrome, | | | | | | but can also reflect | | | | | | myocardial necrosis or | | | | | | injury that is not due | | | | | | to coronary artery | | | | | | disease. Some of these | | | | | | causes are sepsis, | | | | | | hypocolemia, atrial | | | | | | fibrillation, heart | | | | | | failure, pulmonary | | | | | | embolism, myocarditis, | | | | | | myocardial contusion, | | | | | | and renal failure. The | | | | | | diagnosis of myocardial | | | | | | infarction should be | | | | | | based on a combination | | | | | | of the patient's | | | | | | clinical presentation | | | | | | and the clinical | | | | | | laboratory test results | | | | | | (especially serial | | | | | | troponin levels). | | | | + + + + + + + + | Specimen | + + | Blood | + + + + + + + | Performing | Address | City/State/Zipcode | Phone Number | | Organization | | | | + + + + + | [facility] | [address] | [place] | [phone] | | [facility] | | [address] | | | - LABORATORY | | | | + + + + + ECG 12 lead (02/13/2017 8:28 AM PST) + + + + + + | Component | Value | Ref Range | Performed | Pathologist | | | | | At | Signature | + + + + + + | VENTRICULAR | 91 | BPM | [facility] | | | RATE EKG | | | | | + + + + + + | ATRIAL RATE | 91 | BPM | [facility] | | + + + + + + | P-R | 136 | ms | [facility] | | | INTERVAL | | | | | + + + + + + | QRS | 90 | ms | [facility] | | | DURATION | | | | | + + + + + + | Q-T | 348 | ms | [facility] | | | INTERVAL | | | | | + + + + + + | Q-T | 428 | ms | [facility] | | | INTERVAL | | | | | | (CORRECTED) | | | | | + + + + + + | P WAVE AXIS | -23 | degrees | [facility] | | + + + + + + | QRS AXIS | 31 | degrees | [facility] | | + + + + + + | T AXIS | 67 | degrees | [facility] | | + + + + + + | INTERPRETAT | Normal sinus | | [facility] | | | ION TEXT | rhythmCannot rule out | | | | | | Anterior infarct (cited | | | | | | on or before | | | | | | 13-FEB-2017)subtle | | | | | | inferior ST | | | | | | elevation:consider | | | | | | ischemia/infarctionAbnor | | | | | | mal ECGWhen compared | | | | | | with ECG of 13-FEB-2017 | | | | | | 05:28,premature | | | | | | ventricular complexes | | | | | | are no longer | | | | | | presentSerial changes of | | | | | | evolving Anterior | | | | | | infarct | | | | | | presentComparison of | | | | | | inferior leads with | | | | | | prior EKG is difficult | | | | | | secondary to poor | | | | | | baseline of prior. | | | | | | Confirmed by DAHLIA | | | | | | BREANNA ADLER ([id number]) on | | | | | | 02/14/2017 6:37:58 AM | | | | + + + + + + + + | Specimen | + + | | + + + + + | Narrative | Performed At | + + + | | | + + + + +---------+ + + | Performing | Address | City/State/Zipcode | Phone Number | | Organization | | | | + +---------+ + + | [facility] | | | | + +---------+ + + CV CARDIAC PROCEDURE (02/13/2017 7:53 AM PST) + + | Specimen | + + | | + + + + + | Narrative | Performed At | + + + | Allan Amato, | [facility] | | 02/13/2017 8:12 CARDIAC CATHETERIZATION AND CORONARY | | | INTERVENTION REPORT PATIENT NAME: Nancy HammondiDATE OF : | | | 1970MEDICAL RECORD NUMBER: [id number] OF PROCEDURE: | | | 02/13/2017 | | | PRIMARY CARE | | | PROVIDER: LESLEE Cline SHAFT TENDER: Allan Amato MD. | | | PRE-PROCEDURE DIAGNOSIS: Possible Anterior STEMI POST-PROCEDURE | | | DIAGNOSIS: Same PROCEDURES PERFORMED: Coronary | | | angiography With moderate sedation Left Heart Catheterization With | | | moderate sedation Coronary intervention With moderate sedation. | | | DESCRIPTION OF PROCEDURE: Please refer to the computer log entry form | | | for precise details. I reviewed the patient | | | | | | s pre-sedation assessment and vital signs, supervised and directed | | | sedation from administration to patient stabilization for recovery. | | | Hemostasis was obtained using a compression device. Moderate | | | sedation ended with hemostasis, specific times found in log but | | | duration was roughly 60 minutes. There were no immediate | | | complications. Estimated blood loss was 20 cc. Coronary Angiography: | | | Following informed consent moderate sedation was administered then | | | the patient's R wrist and both groins were prepped and draped. The | | | radial site was anesthetized with 1% lidocaine. A 6-Italian sheath | | | was inserted into the radial artery. The above procedures were | | | performed using 5F TIG catheters. Coronary Intervention: The | | | patient was anticoagulated. A 6F Ikari L (JL-3.5, Ikari 3.5, | | | EBU-3.75 did not engage the LM) guiding catheter was inserted. A | | | Choice PT guidewire was advanced into the distal LAD and across the | | | area of stenosis. There was 99% stenosis with thrombus in the proximal | | | LAD stent. A 3.0X10 Angiosculpt balloon was used to cut the entire | | | length of stent, at 12 vi. This was followed by use of NC Quantum | | | 3.5X15 with high pressure inflations of up to 22 vi. Subsequent | | | angiography showed embolization in the apical LAD. Integrelin bolus X2 | | | was given and I tried to break up (multiple inflations at 3 vi with | | | a 2.0X15 balloon) and extract this thrombus--this was not successful. | | | FINDINGS:Left ventricular end-diastolic pressure (LVEDP) was 20 mm | | | Hg. There was no gradient across the aortic valve. Left main | | | coronary artery: Normal Left anterior descending coronary artery: | | | 99% stenosis with thrombus in the proximal LAD stent; no significant | | | other disease. Circumflex coronary artery: Normal Right coronary | | | artery: Normal Result of intervention: 0% residual stenosis of | | | the proximal LAD 100% occlusion of the Apical LAD CONCLUSIONS:1. | | | 0% residual stenosis of the proximal LAD 2. 100% occlusion of the | | | Apical LAD 3. Normal LM, LCx, R RECOMMENDATIONS: ASA and Plavix for | | | 6 mos.Continue other cardiac meds.F/u with primary natural gas technician in 2 | | | wks at [facility]. [facility] | | | CenterDATE/TIME: 02/13/2017 7:5512 7:55 | | |was used to cut the entire length of stent, at 12 vi. This was | | |followed by use of NC Quantum 3.5X15 with high pressure | | |inflations of up to 22 vi. Subsequent angiography showed | | |embolization in the apical LAD. Integrelin bolus X2 was given and | | |I tried to break up (multiple inflations at 3 vi with a 2.0X15 | | |balloon) and extract this thrombus--this was not successful. | | | | | | | | | | | |FINDINGS: | | |Left ventricular end-diastolic pressure (LVEDP) was 20 mm Hg. | | |There was no gradient across the aortic valve. | | | | | |Left main coronary artery: Normal | | | | | |Left anterior descending coronary artery: 99% stenosis with | | |thrombus in the proximal LAD stent; no significant other disease. | | | | | |Circumflex coronary artery: Normal | | | | | |Right coronary artery: Normal | | | | | | | | |Result of intervention: | | | 0% residual stenosis of the proximal LAD | | | | | | 100% occlusion of the Apical LAD | | | | | | | | | | | |CONCLUSIONS: | | |1. 0% residual stenosis of the proximal LAD | | | | | |2. 100% occlusion of the Apical LAD | | | | | |3. Normal LM, LCx, R | | | | | |RECOMMENDATIONS: | | |ASA and Plavix for 6 mos. | | |Continue other cardiac meds. | | |F/u with primary natural gas technician in 2 wks at [facility]. | | | | | |Allan Amato MD | | |[facility] | | |DATE/TIME: 02/13/2017 7:55 | | |02/13/2017 7:55 | | | | | | | | | | | + + + + +---------+ + + | Performing | Address | City/State/Zipcode | Phone Number | | Organization | | | | + +---------+ + + | [facility] | | | | + +---------+ + + POC ACT (02/13/2017 7:08 AM PST) + +---------+ + + + | Component | Value | Ref Range | Performed | Pathologist | | | | | At | Signature | + +---------+ + + + | Activated | 330 (H) | 125 - 175 | [facility] | | | Clotting | | second(s) | [facility] | | | Time, POC | | | MEDICAL | | | | | | CENTER - | | | | | | LABORATORY | | + +---------+ + + + + + | Specimen | + + | | + + + + + + + | Performing | Address | City/State/Zipcode | Phone Number | | Organization | | | | + + + + + | [facility] | [address] | [place] | [phone] | | [facility] | | [address] | | | - LABORATORY | | | | + + + + + POC ACT (02/13/2017 6:33 AM PST) + +---------+ + + + | Component | Value | Ref Range | Performed | Pathologist | | | | | At | Signature | + +---------+ + + + | Activated | 258 (H) | 125 - 175 | [facility] | | | Clotting | | second(s) | [facility] | | | Time, POC | | | MEDICAL | | | | | | CENTER - | | | | | | LABORATORY | | + +---------+ + + + + + | Specimen | + + | | + + + + + + + | Performing | Address | City/State/Zipcode | Phone Number | | Organization | | | | + + + + + | [facility] | [address] | [place] | [phone] | | [facility] | | [address] | | | - LABORATORY | | | | + + + + + Extra Blood Bank Tube (02/13/2017 6:05 AM PST) + + + + + + | Component | Value | Ref Range | Performed | Pathologist | | | | | At | Signature | + + + + + + | Hold BB | Hold Specimen | | [facility] | | | | | | [facility] | | | | | | MEDICAL | | | | | | CENTER - | | | | | | BLOOD BANK | | + + + + + + + + | Specimen | + + | Blood | + + + + + + + | Performing | Address | City/State/Zipcode | Phone Number | | Organization | | | | + + + + + | [facility] | [address] | [place] | | | [facility] | | [address] | | | - BLOOD BANK | | | | + + + + + Extra Green Top Tube (02/13/2017 6:05 AM PST) + +-------+ + + + | Component | Value | Ref Range | Performed | Pathologist | | | | | At | Signature | + +-------+ + + + | Extra Green | Done | | [facility] | | | Top Tube | | | [facility] | | | | | | MEDICAL | | | | | | CENTER - | | | | | | LABORATORY | | + +-------+ + + + + + | Specimen | + + | Blood | + + + + + + + | Performing | Address | City/State/Zipcode | Phone Number | | Organization | | | | + + + + + | [facility] | [address] | [place] | [phone] | | [facility] | | [address] | | | - LABORATORY | | | | + + + + + Extra Green Top Tube (02/13/2017 6:02 AM PST) + +-------+ + + + | Component | Value | Ref Range | Performed | Pathologist | | | | | At | Signature | + +-------+ + + + | Extra Green | Done | | [facility] | | | Top Tube | | | [facility] | | | | | | MEDICAL | | | | | | CENTER - | | | | | | LABORATORY | | + +-------+ + + + + + | Specimen | + + | Blood | + + + + + + + | Performing | Address | City/State/Zipcode | Phone Number | | Organization | | | | + + + + + | [facility] | [address] | [place] | [phone] | | [facility] | | [address] | | | - LABORATORY | | | | + + + + + Extra Gold Top Tube (02/13/2017 6:02 AM PST) + +-------+ + + + | Component | Value | Ref Range | Performed | Pathologist | | | | | At | Signature | + +-------+ + + + | Extra Gold | Done | | [facility] | | | Top Tube | | | [facility] | | | | | | MEDICAL | | | | | | CENTER - | | | | | | LABORATORY | | + +-------+ + + + + + | Specimen | + + | Blood | + + + + + + + | Performing | Address | City/State/Zipcode | Phone Number | | Organization | | | | + + + + + | [facility] | [address] | [place] | [phone] | | [facility] | | [address] | | | - LABORATORY | | | | + + + + + Extra Lavender Top Tube (02/13/2017 6:02 AM PST) + +-------+ + + + | Component | Value | Ref Range | Performed | Pathologist | | | | | At | Signature | + +-------+ + + + | Extra | Done | | [facility] | | | Lavender | | | [facility] | | | Top Tube | | | MEDICAL | | | | | | CENTER - | | | | | | LABORATORY | | + +-------+ + + + + + | Specimen | + + | Blood | + + + + + + + | Performing | Address | City/State/Zipcode | Phone Number | | Organization | | | | + + + + + | [facility] | [address] | [place] | [phone] | | [facility] | | [address] | | | - LABORATORY | | | | + + + + + Extra Blue Top Tube (02/13/2017 6:01 AM PST) + +-------+ + + + | Component | Value | Ref Range | Performed | Pathologist | | | | | At | Signature | + +-------+ + + + | Extra Blue | Done | | [facility] | | | Top Tube | | | [facility] | | | | | | MEDICAL | | | | | | CENTER - | | | | | | LABORATORY | | + +-------+ + + + + + | Specimen | + + | Blood | + + + + + + + | Performing | Address | City/State/Zipcode | Phone Number | | Organization | | | | + + + + + | [facility] | [address] | [place] | [phone] | | [facility] | | [address] | | | - LABORATORY | | | | + + + + + ECG 12 lead (02/13/2017 5:28 AM PST) + + + + + + | Component | Value | Ref Range | Performed | Pathologist | | | | | At | Signature | + + + + + + | VENTRICULAR | 104 | BPM | [facility] | | | RATE EKG | | | | | + + + + + + | ATRIAL RATE | 104 | BPM | [facility] | | + + + + + + | P-R | 140 | ms | [facility] | | | INTERVAL | | | | | + + + + + + | QRS | 84 | ms | [facility] | | | DURATION | | | | | + + + + + + | Q-T | 346 | ms | [facility] | | | INTERVAL | | | | | + + + + + + | Q-T | 454 | ms | [facility] | | | INTERVAL | | | | | | (CORRECTED) | | | | | + + + + + + | P WAVE AXIS | 65 | degrees | [facility] | | + + + + + + | QRS AXIS | 22 | degrees | [facility] | | + + + + + + | T AXIS | 2 | degrees | [facility] | | + + + + + + | INTERPRETAT | Poor data quality, | | [facility] | | | ION TEXT | interpretation may be | | | | | | adversely affected | | | | | | Age and gender specific | | | | | | ECG analysis Sinus | | | | | | tachycardia with | | | | | | frequent premature | | | | | | ventricular complexes in | | | | | | a pattern of | | | | | | bigeminyLow voltage | | | | | | QRSAnterior infarct | | | | | | (cited on or before | | | | | | 13-FEB-2017) ACUTE | | | | | | UT / STEMI Abnormal | | | | | | ECGWhen compared with | | | | | | ECG of 13-FEB-2017 | | | | | | 05:12, | | | | | | (Unconfirmed)Significant | | | | | | changes have | | | | | | occurredConfirmed by | | | | | | BREANNA VILLAGOMEZ MD ([id number]) | | | | | | on 02/13/2017 7:11:33 AM | | | | | | | | | | + + + + + + + + | Specimen | + + | | + + + + + | Narrative | Performed At | + + + | | | + + + + +---------+ + + | Performing | Address | City/State/Zipcode | Phone Number | | Organization | | | | + +---------+ + + | [facility] | | | | + +---------+ + + XR Chest AP Portable (02/13/2017 5:27 AM PST) + + | Specimen | + + | | + + + + + | Narrative | Performed At | + + + | CLINICAL INFORMATION: CHEST PAIN. COMPARISON: None available. | [facility] | | FINDINGS: Portable frontal chest radiograph Lungs: Mild | | | reticular predominant opacities scattered throughout the lungs. No | | | pleural effusion or pneumothorax. Heart/mediastinum: Cardiac | | | silhouette is of normal size. No mediastinal widening. Bones: No | | | acute osseous abnormality appreciated. IMPRESSION - Reticular | | | predominant opacities throughout the lungs, may represent pulmonary | | | edema or atypical infectious process. Dictated and Signed by: | | | Abiel Meza MD Electronically signed: 02/13/2017 8:58 AM | | + + + + + | Procedure Note | + + | Meir, Rad Results In - 02/13/2017 9:01 AM PST | | CLINICAL INFORMATION: CHEST PAIN. | | | | COMPARISON: None available. | | | | FINDINGS: | | Portable frontal chest radiograph | | | | Lungs: Mild reticular predominant opacities scattered throughout the lungs. No | | pleural effusion or pneumothorax. | | | | Heart/mediastinum: Cardiac silhouette is of normal size. No mediastinal | | widening. | | | | Bones: No acute osseous abnormality appreciated. | | | | IMPRESSION - Reticular predominant opacities throughout the lungs, may represent | | pulmonary edema or atypical infectious process. | | | | Dictated and Signed by: Abiel Meza MD | | Electronically signed: 02/13/2017 8:58 AM | + + + +---------+ + + | Performing | Address | City/State/Zipcode | Phone Number | | Organization | | | | + +---------+ + + | [facility] | | | | + +---------+ + + PTT (02/13/2017 5:15 AM PST) + +-------+ + + + | Component | Value | Ref Range | Performed | Pathologist | | | | | At | Signature | + +-------+ + + + | aPTT | 23 | 22 - 36 seconds | [facility] | | | [facility] | | | | | | [facility] | | | | | | CENTER - | | | | | | LABORATORY | | + +-------+ + + + + + | Specimen | + + | Blood | + + + + + + + | Performing | Address | City/State/Zipcode | Phone Number | | Organization | | | | + + + + + | [facility] | [address] | [place] | [phone] | | [facility] | | [address] | | | - LABORATORY | | | | + + + + + Protime INR (02/13/2017 5:15 AM PST) + + + + + + | Component | Value | Ref Range | Performed | Pathologist | | | | | At | Signature | + + + + + + | Prothrombin | 11.2 (L) | 11.3 - 13.9 | [facility] | | | Time | | seconds | [facility] | | | | | | MEDICAL | | | | | | CENTER - | | | | | | LABORATORY | | + + + + + + | INR | 0.82 (L)Comment: Usual | 0.90 - 1.10 | [facility] | | | | Oral Anticoagulation | | [facility] | | | | Range: 2.0 - | | MEDICAL | | | | 3.0High Level Oral | | CENTER - | | | | Anticoagulation Range: | | LABORATORY | | | | 2.5 - 3.5 | | | | + + + + + + + + | Specimen | + + | Blood | + + + + + + + | Performing | Address | City/State/Zipcode | Phone Number | | Organization | | | | + + + + + | [facility] | [address] | [place] | [phone] | | [facility] | | [address] | | | - LABORATORY | | | | + + + + + D-Dimer (02/13/2017 5:15 AM PST) + + + + + + | Component | Value | Ref Range | Performed | Pathologist | | | | | At | Signature | + + + + + + | D-Dimer | 0.44Comment: This | <=0.50 ug/ml | [facility] | | | Quantitativ | quantitative D-Dimer | | [facility] | | | e | assay has been evaluated | | MEDICAL | | | | for screening for | | CENTER - | | | | venous thrombotic | | LABORATORY | | | | disease, and may be | | | | | | useful in ruling out, | | | | | | but not ruling in | | | | | | disease. Values less | | | | | | than 0.50 ug/mL FEU | | | | | | (Fibrinogen Equivalent | | | | | | Units) have a negative | | | | | | predictive value of | | | | | | approximately 95% for | | | | | | ruling out large | | | | | | pulmonary emboli or | | | | | | proximal deep vein | | | | | | thrombosis. Distal DVT | | | | | | are not excluded. An | | | | | | elevated D-dimer can be | | | | | | present in patients with | | | | | | liver disease, | | | | | | , eclampsia, | | | | | | heart disease and some | | | | | | cancers among other | | | | | | conditions. The presence | | | | | | of rheumatoid factor at | | | | | | a level >50 IU/mL may | | | | | | falsely elevate the | | | | | | determined D-dimer | | | | | | levels. | | | | + + + + + + + + | Specimen | + + | Blood | + + + + + + + | Performing | Address | City/State/Zipcode | Phone Number | | Organization | | | | + + + + + | [facility] | [address] | [place] | [phone] | | [facility] | | [address] | | | - LABORATORY | | | | + + + + + Troponin I (02/13/2017 5:15 AM PST) + + + + + + | Component | Value | Ref Range | Performed | Pathologist | | | | | At | Signature | + + + + + + | Troponin I | 0.05Comment: Reference | <0.06 ng/mL | [facility] | | | | Ranges:0.00-0.06 = | | [facility] | | | | NORMAL>0.06 = | | MEDICAL | | | | SUSPICIOUS FOR | | CENTER - | | | | MYOCARDIAL DAMAGE NOTE: | | LABORATORY | | | | Values greater than 0.50 | | | | | | ng/mL have been shown | | | | | | to be strongly | | | | | | associated with acute | | | | | | myocardial infarction. | | | | | | [employer] | | | | | | Cardiology (ACC) | | | | | | recommends a decision | | | | | | limit of 0.06 ng/mL for | | | | | | this assay. Results | | | | | | greater than 0.06 can | | | | | | reflect a pre-infarct | | | | | | acute coronary syndrome, | | | | | | but can also reflect | | | | | | myocardial necrosis or | | | | | | injury that is not due | | | | | | to coronary artery | | | | | | disease. Some of these | | | | | | causes are sepsis, | | | | | | hypocolemia, atrial | | | | | | fibrillation, heart | | | | | | failure, pulmonary | | | | | | embolism, myocarditis, | | | | | | myocardial contusion, | | | | | | and renal failure. The | | | | | | diagnosis of myocardial | | | | | | infarction should be | | | | | | based on a combination | | | | | | of the patient's | | | | | | clinical presentation | | | | | | and the clinical | | | | | | laboratory test results | | | | | | (especially serial | | | | | | troponin levels). | | | | + + + + + + + + | Specimen | + + | Blood | + + + + + + + | Performing | Address | City/State/Zipcode | Phone Number | | Organization | | | | + + + + + | [facility] | [address] | [place] | [phone] | | [facility] | | [address] | | | - LABORATORY | | | | + + + + + Comprehensive Metabolic Panel (02/13/2017 5:15 AM PST) + + + + + + | Component | Value | Ref Range | Performed | Pathologist | | | | | At | Signature | + + + + + + | Na | 137 | 136 - 149 | [facility] | | | | | mmol/L | [facility] | | | | | | [facility] | | | | | | [facility] - | | | | | | LABORATORY | | + + + + + + | K | 4.3 | 3.5 - 5.1 | [facility] | | | | | mmol/L | [facility] | | | | | | [facility] | | [facility] | | | [facility] - | | | | | | LABORATORY | | + + + + + + | Cl | 103 | 98 - 109 mmol/L | [facility] | | | | | | [facility] | | | | | | [facility] | | | | | | [facility] - | | | | | | LABORATORY | | + + + + + + | CO2 | 22 (L) | 24 - 31 mmol/L | [facility] | | | | | | [facility] | [facility] | [facility] | | | | | | [facility] - | | | | | | LABORATORY | | + + + + + + | Anion Gap | 12 | 3 - 16 mmol/L | [facility] | | | | | | [facility] | [facility] | | | | | | [facility] - | | | | | | LABORATORY | | + + + + + + | Glucose | 329 (H) | 70 - 109 mg/dL | [facility] | | | | | | [facility] | | | [facility] | [facility] | | | | | | [facility] - | | | | | | LABORATORY | | + + + + + + | BUN | 18 | 7 - 18 mg/dL | [facility] | | | | | | [facility] | | | | | | [facility] | | | | | | [facility] - | | | | | | LABORATORY | | + + + + + + | Creatinine | 0.78 | 0.60 - 1.30 | [facility] | | | | | mg/dL | [facility] | | | | | | [facility] | | | | | | [facility] - | | | | | | LABORATORY | | + + + + + + | eGFR, | >60Comment: GLOMERULAR | >=60 | [facility] | | | non- | FILTRATION | mL/min/1.73m2 | [facility] | | | [place] | RATE,ESTIMATED | | MEDICAL | | | | mL/min/1.05n4Furp than | | CENTER - | | | | 60 Chronic kidney | | LABORATORY | | | | disease,if found over a | | | | | | 3-month period.Less than | | | | | | 15 Kidney failureFor | | | | | | | | | | | | Americans,multiply the | | | | | | calculated GFR by 1.21. | | | | | | | | | | + + + + + + | Calcium | 9.5 | 8.3 - 10.5 | [facility] | | | | | mg/dL | [facility] | | | | | | [facility] | | | | | | CENTER - | | | | | | LABORATORY | | + + + + + + | Albumin | 3.1 (L) | 3.2 - 5.0 g/dL | [facility] | | | | | | [facility] | | | | | | [facility] | | | | | | [facility] - | | | | | | LABORATORY | | + + + + + + | Bilirubin | 0.2Comment: This is an | 0.1 - 1.5 mg/dL | [facility] | | | Total | appended report. These | | [facility] | | | | results have been | | MEDICAL | | | | appended to a previously | | CENTER - | | | | preliminary verified | | LABORATORY | | | | report. | | | | + + + + + + | Total | 6.6 | 6.0 - 7.8 g/dL | [facility] | | | Protein | | | [facility] | | | | | | [facility] | | | | | | CENTER - | | | | | | LABORATORY | | + + + + + + | AST | 30Comment: This is an | 10 - 42 U/L | [facility] | | | | appended report. These | | [facility] | | | | results have been | | MEDICAL | | | | appended to a previously | | CENTER - | | | | preliminary verified | | LABORATORY | | | | report. | | | | + + + + + + | ALT | 25Comment: This is an | 6 - 45 U/L | [facility] | | | | appended report. These | | [facility] | | | | results have been | | MEDICAL | | | | appended to a previously | | CENTER - | | | | preliminary verified | | LABORATORY | | | | report. | | | | + + + + + + | Alkaline | 115 (H)Comment: This is | 40 - 110 U/L | [facility] | | | Phosphatase | an appended report. | | [facility] | | | | These results have been | | MEDICAL | | | | appended to a previously | | CENTER - | | | | preliminary verified | | LABORATORY | | | | report. | | | | + + + + + + | Globulin | 3.5 | 2.1 - 3.8 g/dL | [facility] | | | | | | [facility] | | | | | | [facility] | | | | | | [facility] - | | | | | | LABORATORY | | + + + + + + | Albumin/Keyla | 0.9 | 0.8 - 2.0 | [facility] | | | bulin Ratio | | | [facility] | | | | | | [facility] | | | | | | CENTER - | | | | | | LABORATORY | | + + + + + + | BUN/Creatin | 23.1 | | [facility] | | | ine Ratio | | | [facility] | | | | | | [facility] | | | | | | CENTER - | | | | | | LABORATORY | | + + + + + + + + | Specimen | + + | Blood | + + + + + + + | Performing | Address | City/State/Zipcode | Phone Number | | Organization | | | | + + + + + | [facility] | [address] | [place] | [phone] | | [facility] | | [address] | | | - LABORATORY | | | | + + + + + CBC with Differential (02/13/2017 5:15 AM PST) + + + + + + | Component | Value | Ref Range | Performed | Pathologist | | | | | At | Signature | + + + + + + | White Blood | 15.1 (H) | 4.0 - 11.0 K/uL | [facility] | | | Cells | | | [facility] | | | | | | [facility] | | | | | | CENTER - | | | | | | LABORATORY | | + + + + + + | Red Blood | 4.95 | 3.70 - 5.20 | [facility] | | | Cells | | M/uL | [facility] | | | | | | [facility] | | | | | | [facility] - | | | | | | LABORATORY | | + + + + + + | Hemoglobin | 15.0 | 11.5 - 16.0 | [facility] | | | | | g/dL | [facility] | | | | | | [facility]ICAL | | | | | | CENTER - | | | | | | LABORATORY | | + + + + + + | Hematocrit | 43.5 | 34.0 - 47.0 % | [facility] | | | | | | [facility] | | | | | | [facility] | | | | | | [facility] - | | | | | | LABORATORY | | + + + + + + | MCV | 87.9 | 83.0 - 101.0 fL | [facility] | | | | | | [facility] | | | | | | [facility] | | | | | | C[facility] - | | | | | | LABORATORY | | + + + + + + | MCH | 30.2 | 28.0 - 35.0 pg | [facility] | | | | | | [facility] | | | | | | [facility] | | | | | | C[facility] - | | | | | | LABORATORY | | + + + + + + | MCHC | 34.4 | 32.0 - 36.0 | [facility] | | | | | g/dL | [facility] | | | | | | [facility] | | | | | | CENTER - | | | | | | LABORATORY | | + + + + + + | RDW-CV | 13.3 | <15.0 % | [facility] | | | | | | [facility] | | | | | | [facility] | | | | | | CENTER - | | | | | | LABORATORY | | + + + + + + | Platelet | 291 | 140 - 440 K/uL | [facility] | | | Count | | | [facility] | | | | | | [facility] | | | | | | CENTER - | | | | | | LABORATORY | | + + + + + + | MPV | 8.6 | fL | [facility] | | | | | | [facility] | | | | | | [facility] | | | | | | CENTER - | | | | | | LABORATORY | | + + + + + + | % | 57.5 | 45.0 - 82.0 % | [facility] | | | Neutrophils | | | [facility] | | | | | | [facility]ICAL | | | | | | CENTER - | | | | | | LABORATORY | | + + + + + + | % | 31.9 | 20.0 - 45.0 % | [facility] | | | Lymphocytes | | | [facility] | | | | | | [facility] | | | | | | CENTER - | | | | | | LABORATORY | | + + + + + + | % Monocytes | 7.2 | 4.0 - 12.0 % | [facility] | | | | | | [facility] | | | | | | [facility] - | | | | | | [facility]ATORY | | + + + + + + | % | 2.3 | 0.0 - 5.0 % | [facility] | | | Eosinophils | | | [facility] | | | | | | [facility] | | | | | | CENTER - | | | | | | LABORATORY | | + + + + + + | % Basophils | 1.1 (H) | 0.0 - 1.0 % | [facility] | | | | | | [facility] | | | | | | [facility] | | | | | | CENTER - | | | | | | LABORATORY | | + + + + + + | Absolute | 8.70 (H) | 1.80 - 8.50 | [facility] | | | Neutrophils | | K/uL | [facility] | | | | | | [facility]ICAL | | | | | | CENTER - | | | | | | LABORATORY | | + + + + + + | Absolute | 4.80 (H) | 0.60 - 3.20 | [facility] | | | Lymphocytes | | K/uL | [facility] | | | | | | [facility] | | | | | | CENTER - | | | | | | LABORATORY | | + + + + + + | Absolute | 1.10 (H) | 0.00 - 1.00 | [facility] | | | Monocytes | | K/uL | [facility] | | | | | | [facility] | | | | | | CENTER - | | | | | | LABORATORY | | + + + + + + | Absolute | 0.30 | 0.00 - 0.40 | [facility] | | | Eosinophils | | K/uL | [facility] | | | | | | [facility]ICAL | | | | | | CENTER - | | | | | | LABORATORY | | + + + + + + | Absolute | 0.20 (H) | 0.00 - 0.10 | [facility] | | | Basophils | | K/uL | [facility] | | | | | | [facility]ICAL | | | | | | CENTER - | | | | | | LABORATORY | | + + + + + + + + | Specimen | + + | Blood | + + + + + + + | Performing | Address | City/State/Zipcode | Phone Number | | Organization | | | | + + + + + | [facility] | [address] | [place] | [phone] | | [facility] | | [address] | | | - LABORATORY | | | | + + + + + ECG 12 lead (02/13/2017 5:12 AM PST) + + + + + + | Component | Value | Ref Range | Performed | Pathologist | | | | | At | Signature | + + + + + + | VENTRICULAR | 88 | BPM | [facility] | | | RATE EKG | | | | | + + + + + + | ATRIAL RATE | 88 | BPM | [facility] | | + + + + + + | P-R | 146 | ms | [facility] | | | INTERVAL | | | | | + + + + + + | QRS | 78 | ms | [facility] | | | DURATION | | | | | + + + + + + | Q-T | 342 | ms | [facility] | | | INTERVAL | | | | | + + + + + + | Q-T | 413 | ms | [facility] | | | INTERVAL | | | | | | (CORRECTED) | | | | | + + + + + + | P WAVE AXIS | 62 | degrees | [facility] | | + + + + + + | QRS AXIS | 20 | degrees | [facility] | | + + + + + + | T AXIS | 68 | degrees | [facility] | | + + + + + + | INTERPRETAT | Normal sinus rhythmLow | | [facility] | | | ION TEXT | voltage QRSPossible | | | | | | Anterolateral infarct , | | | | | | age undetermined | | | | | | :consider | | | | | | acute/subacute/evolving | | | | | | MIAbnormal ECGNo | | | | | | previous ECGs | | | | | | availableConfirmed by | | | | | | BREANNA VILLAGOMEZ MD ([id number]) | | | | | | on 02/13/2017 7:10:33 AM | | | | | | | | | | + + + + + + + + | Specimen | + + | | + + + + + | Narrative | Performed At | + + + | | | + + + + +---------+ + + | Performing | Address | City/State/Zipcode | Phone Number | | Organization | | | | + +---------+ + + | [facility] | | | | + +---------+ + + documented in this encounter Visit Diagnoses + + | Diagnosis | + + | ST elevation myocardial infarction (STEMI), unspecified artery (HCC) | + + | Elevated troponin Other abnormal blood chemistry | + + | Type 2 diabetes mellitus with other specified complication, with long-term current use | | of insulin (HCC) | + + | Chest pain at rest Chest pain, unspecified | + + | Essential hypertension Unspecified essential hypertension | + + | Acute on chronic systolic CHF (congestive heart failure) (HCC) | + + documented in this encounter Administered Medications + +--------+ +-------+------+------+ | Medication Order | MAR | Action | Dose | Rate | Site | | | Action | Date | | | | + +--------+ +-------+------+------+ | aspirin chewable tablet 81 mg | Given | 02/16/20 | 81 mg | | | | 81 mg, Oral, DAILY, First dose on | | 17 8:57 | | | | | [facility] 02/14/17 at 0900, Do not | | AM PST | | | | | give if already taken today., | | | | | | | Post-op/Phase II | | | | | | + +--------+ +-------+------+------+ +-------+ +-------+---+---+ | Given | 02/15/20 | 81 mg | | | | | 17 8:24 | | | | | | AM PST | | | | +-------+ +-------+---+---+ +---+---+ | | | +---+---+ + +-------+ +-------+---+---+ | atorvaSTATin (LIPITOR) tablet | Given | 02/15/20 | 20 mg | | | | 20 mg 20 mg, Oral, NIGHTLY, | | 17 9:55 | | | | | First dose on Sat02/14/17 at | | PM PST | | | | | 2100 | | | | | | + +-------+ +-------+---+---+ +---+---+ | | | +---+---+ + +-------+ +------+---+---+ | bumetanide (BUMEX) injection 1 | Given | 02/16/20 | 1 mg | | | | mg 1 mg, Intravenous, 2 TIMES | | 17 8:57 | | | | | DAILY, First dose on Sat02/14/17 | | AM PST | | | | | at 1530 | | | | | | + +-------+ +------+---+---+ +-------+ +------+---+---+ | Given | 02/15/20 | 1 mg | | | | | 17 4:16 | | | | | | PM PST | | | | +-------+ +------+---+---+ +---+---+ | | | +---+---+ + +-------+ + +---+---+ | carvedilol (COREG) tablet 3.125 | Given | 02/16/20 | 3.125 mg | | | | mg 3.125 mg, Oral, 2 TIMES | | 17 8:48 | | | | | DAILY WITH BREAKFAST & DINNER, | | AM PST | | | | | First dose on [facility] 02/14/17 at | | | | | | | 1700, Hold if SBP < 110; DBP < | | | | | | | 55, and/or HR < 55, | | | | | | + +-------+ + +---+---+ +-------+ + +---+---+ | Given | 02/15/20 | 3.125 mg | | | | | 17 4:16 | | | | | | PM PST | | | | +-------+ + +---+---+ +---+---+ | | | +---+---+ + +-------+ +-------+---+---+ | clopidogrel (PLAVIX) tablet 75 | Given | 02/16/20 | 75 mg | | | | mg 75 mg, Oral, DAILY, First | | 17 8:48 | | | | | dose on Sat02/14/17 at 0900, Do | | AM PST | | | | | not give if already taken today., | | | | | | | Post-op/Phase II | | | | | | + +-------+ +-------+---+---+ +-------+ +-------+---+---+ | Given | 02/15/20 | 75 mg | | | | | 17 8:25 | | | | | | AM PST | | | | +-------+ +-------+---+---+ + +---+ | | | + +---+ | dextrose 50% injection 12.5 g | | | 12.5 g, Intravenous, PRN, Low | | | Blood Sugar, Starting Wed | | | 02/13/17 at 1240 | | + +---+ | | | + +---+ + +-------+ +--------+---+---+ | heparin 1,000 units/mL | Given | 02/15/20 | 4,000 | | | | injection 2,000-5,000 Units | | 17 4:14 | Units | | | | 2,000-5,000 Units, Intravenous, | | AM PST | | | | | PRN, Protocol/Titration, Starting | | | | | | | 02/13/17 at 1249, Use actual | | | | | | | body weight to calculate dose. | | | | | | | Round infusion dose to nearest 50 | | | | | | | units/hr. Round bolus dose to | | | | | | | nearest 100 units. CARDIAC DOSE | | | | | | | HEPARIN PROTOCOL STARTING | | | | | | | heparin infusion dose 1,000 | | | | | | | units/hr (12 units/kg/hr, initial | | | | | | | rate max 1,000 units/hr). Draw | | | | | | | APTT from an IV site other than | | | | | | | heparin IV site 6 hours after | | | | | | | starting a heparin infusion. | | | | | | | PTT Nomogram for ADJUSTING | | | | | | | heparin: APTT < 46 seconds: | | | | | | | Bolus 4,000 units & increase | | | | | | | rate by 200 units/hr Repeat | | | | | | | APTT 6 hr after change. APTT | | | | | | | 46-60 seconds: Bolus 2,000 | | | | | | | units & increase rate by 100 | | | | | | | units/hr Repeat APTT 6 hr after | | | | | | | change. APTT 61-98 seconds: | | | | | | | No bolus or rate change. Repeat | | | | | | | in AM. APTT 99-126 seconds: | | | | | | | Decrease rate by 100 units/hr | | | | | | | Repeat APTT 6 hr after change. | | | | | | | APTT 127-149 seconds: Stop | | | | | | | infusion 60 minutes then recheck | | | | | | | APTT. When APTT is 126 or less, | | | | | | | restart heparin at decreased | | | | | | | rate by 200 units/hr. Repeat | | | | | | | APTT 6 hr after change. APTT | | | | | | | 150-200 seconds: Stop infusion | | | | | | | 90 minutes then recheck APTT. | | | | | | | Repeat APTT every 90 minutes | | | | | | | until in goal range. When APTT | | | | | | | is in goal range, restart | | | | | | | heparin at decreased rate by 200 | | | | | | | units/hr. If two consecutive | | | | | | | APTT values are > 150 seconds, | | | | | | | contact prescriber. APTT >200 | | | | | | | seconds: Contact prescriber, | | | | | | + +-------+ +--------+---+---+ +-------+ +--------+---+---+ | Given | 02/14/20 | 4,000 | | | | | 17 9:25 | Units | | | | | PM PST | | | | +-------+ +--------+---+---+ | Given | 02/14/20 | 4,000 | | | | | 17 12:57 | Units | | | | | PM PST | | | | +-------+ +--------+---+---+ +---+---+ | | | +---+---+ + +-------+ +--------+---+---+ | heparin 1,000 units/mL | Given | 02/14/20 | 4,000 | | | | injection 2,000-8,000 Units | | 17 5:41 | Units | | | | 2,000-8,000 Units, Intravenous, | | AM PST | | | | | ONCE, 02/13/17 at 0540, For 1 | | | | | | | dose, Heparin Protocol - Cardiac | | | | | | | Dose Initial Bolus Give heparin | | | | | | | 4,000 units x1 (60 units/kg IV x | | | | | | | 1, round to nearest 100 units, | | | | | | | max 4000 units), | | | | | | + +-------+ +--------+---+---+ +---+---+ | | | +---+---+ + + + + + +---+ | heparin in half-normal saline | Rate/Dos | 02/15/20 | 1,200 | 24 mL/hr | | | 50 units/mL infusion 0-3,000 | e Change | 17 4:15 | Units/hr | | | | Units/hr (0-60 mL/hr), at 0-60 | | AM PST | | | | | mL/hr, Intravenous, TITRATED, | | | | | | | Starting 02/13/17 at 0540, | | | | | | | Use actual body weight to | | | | | | | calculate dose. Round infusion | | | | | | | dose to nearest 50 units/hr. | | | | | | | Round bolus dose to nearest 100 | | | | | | | units. CARDIAC DOSE HEPARIN | | | | | | | PROTOCOL STARTING heparin | | | | | | | infusion dose 1,000 units/hr (12 | | | | | | | units/kg/hr, initial rate max | | | | | | | 1,000 units/hr). Draw APTT from | | | | | | | an IV site other than heparin IV | | | | | | | site 6 hours after starting a | | | | | | | heparin infusion. PTT Nomogram | | | | | | | for ADJUSTING heparin: APTT < 46 | | | | | | | seconds: Bolus 4,000 units & | | | | | | | increase rate by 200 units/hr | | | | | | | Repeat APTT 6 hr after change. | | | | | | | APTT 46-60 seconds: Bolus 2,000 | | | | | | | units & increase rate by 100 | | | | | | | units/hr Repeat APTT 6 hr after | | | | | | | change. APTT 61-98 seconds: | | | | | | | No bolus or rate change. Repeat | | | | | | | in AM. APTT 99-126 seconds: | | | | | | | Decrease rate by 100 units/hr | | | | | | | Repeat APTT 6 hr after change. | | | | | | | APTT 127-149 seconds: Stop | | | | | | | infusion 60 minutes then recheck | | | | | | | APTT. When APTT is 126 or less, | | | | | | | restart heparin at decreased | | | | | | | rate by 200 units/hr. Repeat | | | | | | | APTT 6 hr after change. APTT | | | | | | | 150-200 seconds: Stop infusion | | | | | | | 90 minutes then recheck APTT. | | | | | | | Repeat APTT every 90 minutes | | | | | | | until in goal range. When APTT | | | | | | | is in goal range, restart | | | | | | | heparin at decreased rate by 200 | | | | | | | units/hr. If two consecutive | | | | | | | APTT values are > 150 seconds, | | | | | | | contact prescriber. APTT >200 | | | | | | | seconds: Contact prescriber , | | | | | | + + + + + +---+ + + + + +---+ | Rate/Dose Change | 02/14/20 | 1,000 | 20 mL/hr | | | | 17 9:26 | Units/hr | | | | | PM PST | | | | + + + + +---+ | Rate/Dose Verify | 02/14/20 | 900 | 18 mL/hr | | | | 17 5:59 | Units/hr | | | | | PM PST | | | | + + + + +---+ +---+---+ | | | +---+---+ + +-------+ + +---+---+ | HYDROcodone-acetaminophen | Given | 02/15/20 | 1 tablet | | | | (NORCO) 5-325 mg per tablet 1 | | 17 11:59 | | | | | tablet 1 tablet, Oral, EVERY 4 | | AM PST | | | | | HOURS PRN, Pain, Moderate Pain, | | | | | | | Starting 02/13/17 at 1402 | | | | | | + +-------+ + +---+---+ +-------+ + +---+---+ | Given | 02/15/20 | 1 tablet | | | | | 17 3:15 | | | | | | AM PST | | | | +-------+ + +---+---+ | Given | 02/14/20 | 1 tablet | | | | | 17 7:43 | | | | | | PM PST | | | | +-------+ + +---+---+ +---+---+ | | | +---+---+ + +-------+ +------+---+---+ | HYDROmorphone (DILAUDID) 1 | Given | 02/14/20 | 1 mg | | | | mg/mL injection 1 mg 1 mg, | | 17 5:41 | | | | | Intravenous, EVERY 15 MIN PRN, | | AM PST | | | | | Severe Pain, Starting Sat | | | | | | | 02/13/17 at 0535, For 3 doses | | | | | | + +-------+ +------+---+---+ +---+---+ | | | +---+---+ + +-------+ + +---+ + | insulin glargine (LANTUS | Given | 02/15/20 | 29 Units | | Arm-Righ | | SOLOSTAR) 100 units/mL injection | | 17 9:53 | | | t Upper | | (pen) 29 Units 29 Units (rounded | | PM PST | | | | | from 28.59 Units = 0.3 | | | | | | | Units/kg/day | | | | | | | 95.3 kg), Subcutaneous, NIGHTLY, | | | | | | | First dose on Sat02/13/17 at | | | | | | | 2100, For subcutaneous use only. | | | | | | | Basal (long acting) insulin., | | | | | | + +-------+ + +---+ + +-------+ + +---+ + | Given | 02/14/20 | 29 Units | | Arm-Left | | | 17 8:50 | | | Upper | | | PM PST | | | | +-------+ + +---+ + +---+---+ | | | +---+---+ + +-------+ +---------+---+ + | insulin lispro (humaLOG | Given | 02/15/20 | 6 Units | | Arm-Left | | KWIKPEN) 100 units/mL injection | | 17 9:54 | | | Upper | | (pen) 0-18 Units 0-18 Units, | | PM PST | | | | | Subcutaneous, 4 TIMES DAILY WITH | | | | | | | MEALS & NIGHTLY, First dose on | | | | | | | 02/13/17 at 1330, CORRECTION | | | | | | | SCALE: Blood Glucose (BG) < | | | | | | | 150: None BG | | | | | | | 150-200: DAY: 3 units. NIGHT: | | | | | | | 0 units BG 201-250: DAY: 6 | | | | | | | units. NIGHT: 3 units BG | | | | | | | 251-300: DAY: 9 units. NIGHT: | | | | | | | 6 units BG 301-350: DAY: 12 | | | | | | | units. NIGHT: 9 units BG | | | | | | | 351-400: DAY: 15 units. NIGHT: | | | | | | | 12 units BG > 400 : DAY: 18 | | | | | | | units. NIGHT: 15 units | | | | | | | AND CALL PROVIDER | | | | | | | Use DAY DOSE for doses | | | | | | | scheduled: AC, NPO, Daytime | | | | | | | 9719-0790 Use NIGHT DOSE for | | | | | | | doses scheduled: HS, 3AM, | | | | | | | Nighttime [id number], | | | | | | + +-------+ +---------+---+ + +-------+ +---------+---+ + | Given | 02/15/20 | 3 Units | | Arm-Left | | | 17 4:36 | | | Upper | | | PM PST | | | | +-------+ +---------+---+ + | Given | 02/15/20 | 3 Units | | Arm-Righ | | | 17 11:51 | | | t Upper | | | AM PST | | | | +-------+ +---------+---+ + +---+---+ | | | +---+---+ + +-------+ +--------+---+---+ | lisinopril (PRINIVIL, ZESTRIL) | Given | 02/16/20 | 2.5 mg | | | | tablet 2.5 mg 2.5 mg, Oral, | | 17 8:48 | | | | | DAILY, First dose on [facility] 02/14/17 | | AM PST | | | | | at 1530 | | | | | | + +-------+ +--------+---+---+ +-------+ +--------+---+---+ | Given | 02/15/20 | 2.5 mg | | | | | 17 4:16 | | | | | | PM PST | | | | +-------+ +--------+---+---+ +---+---+ | | | +---+---+ + +-------+ +------+---+---+ | morphine injection 2-4 mg 2-4 | Given | 02/14/20 | 2 mg | | | | mg, Intravenous, EVERY 1 HOUR | | 17 9:33 | | | | | PRN, Pain, Starting 02/13/17 | | PM PST | | | | | at 1451 | | | | | | + +-------+ +------+---+---+ +-------+ +------+---+---+ | Given | 02/14/20 | 2 mg | | | | | 17 8:24 | | | | | | PM PST | | | | +-------+ +------+---+---+ | Given | 02/14/20 | 2 mg | | | | | 17 4:01 | | | | | | PM PST | | | | +-------+ +------+---+---+ +---+---+ | | | +---+---+ + +-------+ +------+---+---+ | morphine injection 4 mg 4 mg, | Given | 02/14/20 | 4 mg | | | | Intravenous, EVERY 1 HOUR PRN, | | 17 8:37 | | | | | Pain, Starting 02/13/17 at | | AM PST | | | | | 0515 | | | | | | + +-------+ +------+---+---+ +-------+ +------+---+ + | Given | 02/14/20 | 4 mg | | Left Arm | | | 17 5:21 | | | | | | AM PST | | | | +-------+ +------+---+ + + +---+ | | | + +---+ | nitroglycerin (NITROSTAT) SL | | | tablet 0.4 mg 0.4 mg, | | | Sublingual, EVERY 5 MIN PRN, | | | Chest pain, Starting 02/13/17 | | | at 0807, May give up to 3 doses. | | | Notify physician after 2nd dose | | | given. Hold for SBP<100, | | | Post-op/Phase II | | + +---+ | | | + +---+ + + + +---------+---------+---+ | nitroglycerin in dextrose 100 | Rate/Dos | 02/14/20 | 5 | 3 mL/hr | | | mcg/mL infusion 5-250 mcg/min | e Change | 17 9:51 | mcg/min | | | | (3-150 mL/hr), at 3-150 mL/hr, | | PM PST | | | | | Intravenous, TITRATED, Starting | | | | | | | 02/13/17 at 0540, Initial | | | | | | | dose: 5 mcg/min, Goal: Reduction | | | | | | | of chest pain | | | | | | + + + +---------+---------+---+ + + +---------+---------+---+ | Rate/Dose Change | 02/14/20 | 10 | 6 mL/hr | | | | 17 9:35 | mcg/min | | | | | PM PST | | | | + + +---------+---------+---+ | Rate/Dose Change | 02/14/20 | 15 | 9 mL/hr | | | | 17 9:29 | mcg/min | | | | | PM PST | | | | + + +---------+---------+---+ +---+---+ | | | +---+---+ + +-------+ +------+---+---+ | ondansetron (ZOFRAN) 2 mg/mL | Given | 02/14/20 | 4 mg | | | | injection Starting Sat02/13/17 | | 17 1:10 | | | | | at 1305, For 1 dose, DEREJE, | | PM PST | | | | | SILVANO: dayanara freeman, | | | | | | + +-------+ +------+---+---+ +---+---+ | | | +---+---+ + +-------+ +------+---+---+ | ondansetron (ZOFRAN) injection | Given | 02/14/20 | 4 mg | | | | 4 mg 4 mg, Intravenous, EVERY 1 | | 17 8:37 | | | | | HOUR PRN, Nausea, Vomiting, | | AM PST | | | | | Starting Sat02/13/17 at 0527, | | | | | | | For 2 doses | | | | | | + +-------+ +------+---+---+ +-------+ +------+---+---+ | Given | 02/14/20 | 4 mg | | | | | 17 5:33 | | | | | | AM PST | | | | +-------+ +------+---+---+ +---+---+ | | | +---+---+ + +-------+ +------+---+---+ | ondansetron (ZOFRAN) injection | Given | 02/14/20 | 4 mg | | | | 4 mg 4 mg, Intravenous, EVERY 6 | | 17 2:52 | | | | | HOURS PRN, Nausea, Vomiting, | | PM PST | | | | | Starting 02/13/17 at 1344 | | | | | | + +-------+ +------+---+---+ +---+---+ | | | +---+---+ + +-------+ +-------+---+---+ | oxyCODONE (ROXICODONE) tablet | Given | 02/16/20 | 10 mg | | | | 10 mg 10 mg, Oral, EVERY 6 HOURS | | 17 1:09 | | | | | PRN, Pain, Starting Marissa 02/14/17 | | PM PST | | | | | at 1326 | | | | | | + +-------+ +-------+---+---+ +-------+ +-------+---+---+ | Given | 02/16/20 | 10 mg | | | | | 17 7:29 | | | | | | AM PST | | | | +-------+ +-------+---+---+ | Given | 02/16/20 | 10 mg | | | | | 17 1:25 | | | | | | AM PST | | | | +-------+ +-------+---+---+ +---+---+ | | | +---+---+ + +---------+ +---------+-------+---+ | sodium chloride 0.9% (NS) bolus | New Bag | 02/14/20 | 572 mLs | 95.3 | | | 572 mL 572 mL (rounded from | | 17 8:38 | | mL/hr | | | 571.8 mL = 6 mL/kg | | AM PST | | | | | 95.3 kg), Intravenous, | | | | | | | Administer over 6 Hours, ONCE, | | | | | | | 02/13/17 at 0830, For 1 dose, | | | | | | | 1 ml/kg/hr x 6 hours, | | | | | | | Post-op/Phase II | | | | | | + +---------+ +---------+-------+---+ +---+---+ | | | +---+---+ documented in this encounter
--- OUTSIDE RECORDS SUMMARY | ~2019-10-16 | XMS | Encounter Summary ---
Demographics + + + | Address | [address] | | | [place] [address] | + + + | Home Phone [...] #[place] | | | | | [address] | | + + + + + | Bebe Terrazas | ECON | Unknown | Unavailable | + + + + + | Arden Terrazas | ECON | Unknown | | + + + + + Care Team Providers + +------+ + | Care Psychiatric Np Name | Role | Phone | + [...] + + | 05/23/ | Telephone | [facility] Primary Care | Yuriy Cardenas, | Medication requested | | 2018 | | at [place] [address] | PA-C [address] | | | | [address] | [facility] | | | | | [facility] [place], [place] | [place], [place] | | | | | [address] | [address] | | | | | [phone] | [phone] | | | | | | | [...]
--- OUTSIDE RECORDS SUMMARY | ~2019-10-16 | XMS | Encounter Summary ---
Demographics + + + | Address | [address] | | | [place] [address] | + + + | Home Phone [...] + + | Author | [facility] | + + + | Organization | [facility] | + + + | [...] #[place] | | | | | [address] | | + + + + + | Bebe Terrazas | ECON | Unknown | Unavailable | + + + + + | Arden Terrazas | ECON | Unknown | | + + + + + Care Team Providers + +------+ + | Care Boiler Operators Supervisor Name | Role | Phone | [...] + + | 07/07/ | Office | [facility] Primary Care | Yuriy Cardenas, | Type 2 diabetes | | 2019 | Visit | at [place] [address] | PA-C [address] | mellitus with | | | | [address] | [address] | diabetic | | | | [facility] [place], [place] | [place], [place] | polyneuropathy, with | | | | [address] | [address] | long-term current | | | | [phone] | [phone] | use of insulin (HCC) | | [...] need to have it done at the [facility] use of timing that is OK. I [...] We will see what they think at [facility] oncologist's today. I hope the service bar cashier is on board with all the changes we have made. Electronically sign ed by Yuriy Cardenas PA-C at 07/07/2018 1:03 PM PDT documented in this encounter Progress Notes Adam Mccrary MD,MPH - 07/07/2018 9:00 AM PDTIn accordance with [facility] tatus, this chart was reviewed by [...] her breath. [facility] was reticent to do this in [facility]. Also notes she is coughing up sputum [...] oncologist today after the CT. Meets with service bar cashier on August 05 as well. She reports [...] at the oncologist's today suggests. Believe her service bar cashier will be on board with the changes [...] | | | LABORATORY | | | [place]USSIAN | | | SERVICES, | | | [...] MDRD equation recommended by the National | [facility] | | Kidney Disease Education Program. [...] | + + + + + | [facility] | [address] | [place] [address] | | | SERVICES, CORE | EDITH [...] | [facility] | | considered for monitoring ferry terminal agent glycemic control in patients with: | LABORATORY [...] | + + + + + | [facility] | [address] | [place] [address] | | | SERVICES, SPECIAL | PARK [...]
--- OUTSIDE RECORDS SUMMARY | ~2019-10-16 | XMS | Encounter Summary ---
Demographics + + + | Address | [address] | | | [place] [address] | + + + | Home Phone [...] #[place] | | | | | [address] | | + + + + + | Bebe Terrazas | ECON | Unknown | Unavailable | + + + + + | Arden Terrazas | ECON | Unknown | | + + + + + Care Team Providers + +------+ + | Care Hoisting Pile Driving Engineer Name | Role | Phone | + +------+ + | Yuriy Cardenas PA-C | PCP | | + +------+ + Encounter Details +--------+ + + + + | Date | Type | Department | Care Team | Description | +--------+ + + + + | 06/17/ | MyChart | [facility] Primary Care | Yuriy Cardenas, | RE: Apointment | | 2019 | Encounter | at [place] [address] | PA-C [address] | | | | [address] | [address] | | | | | [place], [place] | [place], [place] | | | | | [address] | [address] | | | | | [phone] | | | | | | | [...]
--- OUTSIDE RECORDS SUMMARY | ~2019-10-16 | XMS | Encounter Summary ---
Demographics + + + | Address | [address] | | | [place] [address] | + + + | Home Phone | | + + + | Preferred Language | Unknown | + + + | Marital Status | | + + + | Pentecostalism Affiliation | PRE | + + + | Race | White | + + + | Ethnic Group | Not or | + + + Author + + + | Author | [facility] | + + + | Organization | [facility] | + + + | [...] #[place] | | | | | [address] | | + + + + + | Bebe Terrazas | ECON | Unknown | Unavailable | + + + + + | Arden Terrazas | ECON | Unknown | | + + + + + Care Team Providers + +------+ + | Care Glass Bulb Machine Adjuster Name | Role | Phone | + [...] + + | 09/17/ | Telephone | [facility] Primary Care | Yuriy Cardenas, | Lab Order | | 2019 | | at [place] [address] | PA-C [address] | | | | | [address] | [facility] | | | | | [facility] [place], [place] | [place], [place] | | | | | [address] | [address] | | | | | [phone] | [phone] | | | | | | | [...]
--- OUTSIDE RECORDS SUMMARY | ~2019-10-16 | XMS | Encounter Summary ---
Demographics + + + | Address | [address] | | | [place] [address] | + + + | Home Phone [...] #[place], [place] | | | | | [address] | | + + + + + | Bebe Terrazas | ECON | Unknown | Unavailable | + + + + + | Arden Hammondi | ECON | Unknown | | + + + + + Care Team Providers + +------+ + | Care Roof Truss Detailer Name | Role | Phone | + [...] [address] | [address] [facility] [facility] | | | | | [place], [place] | [address] [place], | | | | | [address] | [place] [address] | | | | | | [phone] | | | | | | | [...] [place] | | | LAB | | [address] | | + + + + + | [facility] | [address] | [place], [place] | | | LAB | | [address] | | + + + + + [...] [facility] | [address] | [place], [place] | | | LAB | | [address] | | + + + + + | [facility] | [address] | [place], [place] | | | LAB | | [address] | | + + + + + [...] [place] | | | LAB | | [address] | | + + + + + | [facility] | [address] | [place], [place] | | | LAB | | [address] | | + + + + + [...] [facility] | [address] | [place], [place] | | | LAB | | [address] | | + + + + + | [facility] | [address] | [place], [place] | | | LAB | | [address] | | + + + + + [...] | + + | Interface, Lab Results [facility] - 10/25/2016 4:51 PM PDT LUMBAR [...] RADIOLOGY | [address] | [place], [place] | [phone] | | | | [address] | | + + + + + [...] [place] | | | LAB | | [address] | | + + + + + | [facility] | [address] | [place] | | | LAB | | [address] | | + + + + + documented in this encounter Visit Diagnoses Not on filedocumented in this encounter"
--- OUTSIDE RECORDS SUMMARY | ~2019-10-16 | XMS | Encounter Summary ---
Demographics + + + | Address | [address] | | | [place] [address] | + + + | Home Phone | | + + + | Preferred Language | Unknown | + + + | Marital Status | | + + + | Confucianism Affiliation | PRE | + + + [...] #[place] | | | | | [address] | | + + + + + | Bebe Terrazas | ECON | Unknown | Unavailable | + + + + + | Arden Terrazas | ECON | Unknown | | + + + + + Care Team Providers + +------+ + | Care Last Turner Name | Role | Phone | + +------+ + | Yuriy Cardenas PA-C | PCP | | + +------+ + Reason for Visit + + + | Reason | Comments | + + + | Diabetes mellitus | | + + + | Cough | | + + + | Chronic pain | | + + + Encounter Details +--------+ + + + + | Date | Type | Department | Care Team | Description | +--------+ + + + + | 09/15/ | Telephone-S | [facility] Primary Care | Yuriy Cardenas, | Diabetes mellitus; | | 2019 | cheduled | at [place] [address] | [place]-C [address] | Cough; Chronic pain | | | | [address] | [address] | | | | | [place], [place] | [place], [place] | | | | | [address] | [address] | | | | | [phone] | [phone] | | | | | | | [...] encounter Progress Notes Yuriy Cardenas PA-C - 09/16/2019 2:40 PM PDTFormatting of this note might be different fro m the original. TELEPHONE VISIT Patient agrees to a telephone encounter for today's visit. They understand they may be resp onsible for the balance after insurance processes the claim. Patient is calling from home today. [place]. SUBJECTIVE/BACKGROUND CC: No chief complaint on file. HPI: Has been feeling really bad the last week: Constant BALDWIN, diarrhea every 15-20 min for the last week. Today is first day when she has n ot been getting woken up from diarrhea. Getting a bit of a cough. Went through a whole bottle of Kaopectate, now taking Imodium A-D. Adding in some acidophi kim in that time. Believes she has had a fever off/on, has had chills, does not have a thermometer. Was worried about doing the testing because numbers of patients high in [facility]. She is on oxygen most of the time. Does not have a saturation monitor. Has been regular with her pain meds, was filled 1.5 weeks ago. Feels the Ozempic has made a big difference in her blood sugars. Getting a lot more BG in the 130's to 160's, has had a couple readings up to 270's but this has been with illness so she somewhat expected this. Her neuropathy in feet has stayed about the same. R hand pointer and middle finger are con stantly numb but attributing this more to issues in her neck. Somewhat painful with movemen t but mostly just numb. ROS: No CP/tightness or irregular heartbeat, not getting lightheaded. OBJECTIVE Voice: normal ousmane and clarity of speech Psych: generally positive mood and affect, no pressured speech, normal TC as expressed, carmelita ws good insight. Recent Labs 09/26/18 1621 12/23/18 1722 03/30/19 1751 A1C 12.1* 12.0* 11.0* ASSESSMENT/PLAN ICD-10-CM 1. Type 2 diabetes mellitus with diabetic polyneuropathy, with long-term current use of ins ulin (HCC) E11.42 HEMOGLOBIN A1C, BLOOD Z79.4 COMPLETE METABOLIC SET (NA,K,CL,CO2,BUN,CREAT,GLUC,CA,AST,ALT,BILI TOTAL,ALK PHOS,AL B,PROT TOTAL) LIPID SET (TRIG, T CHOL, HDL, CALC LDL) ALBUMIN URINE, RANDOM 2. Non-small cell cancer of left lung (HCC) C34.92 oxyCODONE (immediate release) 5 mg oral tablet morphine SR 10 mg oral capsule,extend.release pellets oxyCODONE (immediate release) 5 mg oral tablet morphine SR 10 mg oral capsule,extend.release pellets oxyCODONE (immediate release) 5 mg oral tablet pregabalin 200 mg oral capsule morphine SR 10 mg oral capsule,extend.release pellets CBC ONLY 3. Other chronic postprocedural pain G89.28 oxyCODONE (immediate release) 5 mg oral tablet morphine SR 10 mg oral capsule,extend.release pellets oxyCODONE (immediate release) 5 mg oral tablet morphine SR 10 mg oral capsule,extend.release pellets oxyCODONE (immediate release) 5 mg oral tablet pregabalin 200 mg oral capsule morphine SR 10 mg oral capsule,extend.release pellets CBC ONLY 4. Diarrhea, unspecified type R19.7 5. Cough R05 6. Subjective fever R50.9 Her diabetic control is reportedly better, but due to being stuck in [place] right now we are not able to do labs in clinic. I will order labs and have sent to [facility] so she can get drawn. Discussed her symptoms and concern for COVID-19. Advised per options, to contact there and find out the workflow for getting testing. With her underlying COPD and hx of lung CA, want her to monitor closely for worsening. Tr y to buy O2 sat monitor at one of the pharmacies to monitor. Continue with baseline pain treatment, she has been able to manage on stable dosing without aberrancy. Yuriy Cardenas PA-C Time spent on the call: 22 min. The patients encounter was accomplished via a telephone call today due to COVID-19 precauti onary measures to limit the patient's unnecessary exposure. documented in this en counter Plan of Treatment + +------+--------+ + + | Name | Type | Priori | Associated Diagnoses | Order Schedule | | | | ty | | | + +------+--------+ + + | HEMOGLOBIN A1C, | Lab | Routin | Type 2 diabetes | Expected: 09/16/2019 | | BLOOD | | e | mellitus with | (Approximate), | | | | | diabetic | Expires: 10/16/2020 | | | | | polyneuropathy, with | | | | | | long-term current | | | | | | use of insulin (HCC) | | + +------+--------+ + + | COMPLETE METABOLIC | Lab | Routin | Type 2 diabetes | Expected: 09/16/2019 | | SET | | e | mellitus with | (Approximate), | | (NA,K,CL,CO2,BUN,CRE | | | diabetic | Expires: 10/16/2020 | | AT,GLUC,CA,AST,ALT,B | | | polyneuropathy, with | | | TEOFILO TOTAL,ALK | | | long-term current | | | PHOS,ALB,PROT TOTAL) | | | use of insulin (HCC) | | + +------+--------+ + + | LIPID SET (TRIG, T | Lab | Routin | Type 2 diabetes | Expected: 09/16/2019 | | CHOL, HDL, CALC LDL) | | e | mellitus with | (Approximate), | | | | | diabetic | Expires: 10/16/2020 | | | | | polyneuropathy, with | | | | | | long-term current | | | | | | use of insulin (HCC) | | + +------+--------+ + + | ALBUMIN URINE, | Lab | Routin | Type 2 diabetes | Expected: 09/16/2019 | | RANDOM | | e | mellitus with | (Approximate), | | | | | diabetic | Expires: 10/16/2020 | | | | | polyneuropathy, with | | | | | | long-term current | | | | | | use of insulin (HCC) | | + +------+--------+ + + | CBC ONLY | Lab | Routin | Non-small cell | Expected: 09/16/2019 | | | | e | cancer of left lung | (Approximate), | | | | | (HCC) Other chronic | Expires: 10/16/2020 | | | | | postprocedural pain | | + +------+--------+ + + documented as of this encounter Visit Diagnoses + + | Diagnosis | + + | Type 2 diabetes mellitus with diabetic polyneuropathy, with long-term current use of | | insulin (HCC) - Primary | + + | Non-small cell cancer of left lung (HCC) | + + | Other chronic postprocedural pain | + + | Diarrhea, unspecified type | + + | Cough | + + | Subjective fever | + + documented in this encounter"
--- OUTSIDE RECORDS SUMMARY | ~2019-10-16 | XMS | Encounter Summary ---
Demographics + + + | Address | [address] | | | [place] [address] | + + + | Home Phone [...] #[place] | | | | | [address] | | + + + + + | Bebe Terrazas | ECON | Unknown | Unavailable | + + + + + | Arden Terrazas | ECON | Unknown | | + + + + + Care Team Providers + +------+ + | Care Channel Machine Operator Name | Role | Phone [...] + + | 03/17/ | Telephone | [facility] Primary Care | Yuriy Cardenas, | Refill Request | | 2020 | | at [place] [address] | PA-C [address] | | | | [address] | [facility] | | | | | [facility] [place], [place] | [place], [place] | | | | | [address] | [address] | | | | | [phone] | [phone] | | | | | | | [...]
--- OUTSIDE RECORDS SUMMARY | ~2019-10-16 | XMS | Encounter Summary ---
Demographics + + + | Address | [address] | | | [place] [address] | + + + | Home Phone [...] #[place] | | | | | [address] | | + + + + + | Bebe Terrazas | ECON | Unknown | Unavailable | + + + + + | Arden Terrazas | ECON | Unknown | | + + + + + Care Team Providers + +------+ + | Care Account Administrator Name | Role | Phone | + [...] | | | | | lumbar | [address] | [address] | | | | | region, | Phone: | Phone: | | | | | without | [phone] | [phone] | | | | | neurogenic | Fax: | Fax: | | | | | claudication | [phone] | [phone] | | | | | Procedures | | | | | | | REQUEST TO | | | | | | | SURGERY | | | | | | | HOME DELIVERY DRIVER | | | | | | | [place] LUMBAR | | | | | | | SPINE FUSN | | | | | | | INCLUDE | | | | | | | LAMINECTOMY | | | | | | | AND OR | | | | | | | DISCECTOMY | | | | | | | [place] LUMBAR | | | | | | | SPINE FUSN, | | | | | | | EA ADDL | | | | | | | INTERSPACE | | | | | | | AND SEGMENT | | | | | | | [place] | | | | | | | LAMINEC/FACE | | | | | | | TECT/FORAMIN | | | | | | | ,LUMBAR [place] | | | | | | | LAMINEC/FACE | | | | | | | TECT/FORAMIN | | | | | | | ,EACH ADDNL | | | | | | | [place] INSERT | | | | | | | VERT FIX | | | | | | | DEV,POST,3-6 | | | | | | | SGMTS [place] | | | | | | | APPLY,SPINE | | | | | | | PROSTHETIC | | | | | | | DEVICE [place] | | | | | | | SPIN BONE | | | | | | | ALLOGRFT | | | | | | | STRUCTURAL | | | | | | | [place] SPIN BONE | | | | | | | AUTOGRFT | | | | | | | LOCAL [place] | | | | | | | SPIN BONE | | | | | | | ALLOGRFT | | | | | | | MORSELIZED | | | | | | | [place] MICROSURG | | | | | | | | | | | | | | TECHNIQUES,R | | | | | | | EQ OPER | | | | | | | MICROSCOPE | | | | | | | 724.02, | | | | | | | 724.4 | | | | | | | [address] | | | | | | | [address] | | | | | | | [address] | | | | | | | [address] | | | | | | | [address] | | | | | | | [address] | | | +--------+--------+ + + + [...] | | Required | | Displacement | [facility] | [address] | | | | | of lumbar | [address] | [address] | | | | | intervertebr | CLINIC | [place], [place] | | | | | al disc | [address] | [address] | | | | | without | [address] | Phone: | | | | | myelopathy | [place] [address] | [phone] | | | | | INS: | [place], [place] | Fax: | | | | | [place] | [address] | [phone] | | | | | [place] [employer] | Phone: | | | | | | | [phone] | | | | | | | Fax: | | | | | | | [phone] | | +--------+ + + + + [...] Back | | | | Physician's | [place], [place] | pain; | | | | [place], [address] floor | [address] | Pseudoarthrosis of | | | | [place], [place] | [phone] | lumbar spine | | | | [address] | | | | | | [phone] | | | +--------+---------+ + + + [...]
--- OUTSIDE RECORDS SUMMARY | ~2019-10-16 | XMS | Encounter Summary ---
Demographics + + + | Address | [address] | | | [place] [address] | + + + | Home Phone | | + + + | Preferred Language | Unknown | + + + | Marital Status | | + + + | Spiritism Affiliation | PRE | + + + | Race | White | + + + | Ethnic Group | Not or | + + + Author + + + | Author | [facility] | + + + | Organization | [facility] | + + + | Address [...] #[place] | | | | | [address] | | + + + + + | Bebe Terrazas | ECON | Unknown | Unavailable | + + + + + | Arden Terrazas | ECON | Unknown | | + + + + + Care Team Providers + +------+ + | Care Event Manager Name | Role | Phone | + +------+ + | Yuriy Cardenas PA-C | PCP | | + +------+ + Encounter Details +--------+ + + + + | Date | Type | Department | Care Team | Description | +--------+ + + + + | 09/25/ | MyChart | [facility] Primary Care | Yuriy Cardenas, | RE: Still pretty | | 2020 | Encounter | at [place] [address] | PA-C [address] | sick.... | | | | [address] | [address] | | | | | [place], [place] | [place], [place] | | | | | [address] | [address] | | | | | [phone] | [phone] | | | | | | | [...]
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
--- OUTSIDE RECORDS SUMMARY | ~2019-10-16 | XMS | Encounter Summary ---
Demographics + + + | Address | [address] | | | [place] [address] | + + + | Home Phone [...] [place] | | | | | [address] | | + + + + + | Bebe Terrazas | ECON | Unknown | Unavailable | + + + + + | Arden Terrazas | ECON | Unknown | | + + + + + Care Team Providers + +------+ + | Care Street Department Dispatcher Name | Role | Phone | + [...] + + | 11/25/ | Telephone | [facility] Primary [facility] | Yuriy Cardenas, | Medication | | 2019 | | at [place] [address] | PA-C [address] | management | | | | [facility] | [facility] | | | | | [facility] [place], [place] | [place], [place] | | | | | [address] | [address] | | | | | [phone] | | | | | | | [...]
--- OUTSIDE RECORDS SUMMARY | ~2019-10-16 | XMS | Encounter Summary ---
Demographics + + + | Address | [address] | | | [place] [address] | + + + | Home Phone [...] [place] | | | | | [address] | | + + + + + | Bebe Terrazas | ECON | Unknown | Unavailable | + + + + + | Arden Terrazas | ECON | Unknown | | + + + + + Care Team Providers + +------+ + | Care Carbonation Equipment Tender Name | Role | Phone | + [...] + + | 03/10/ | Telephone | [facility] Primary Care | Yuriy Cardenas, | Medication requested | | 2019 | | at [place] [address] | [place] [address] | (Oxy, Morphine, | | | | [address] | [facility] | Semaglutide | | | | [facility] [place], [place] | [place], [place] | (ozempic)) | | | | [address] | [address] | | | | | [phone] | | | | | | | [...]
--- OUTSIDE RECORDS SUMMARY | ~2019-10-16 | XMS | Encounter Summary ---
Demographics + + + | Address | [address] | | | [place] [address] | + + + | Home Phone [...] [place] | | | | | [address] | | + + + + + | Bebe Terrazas | ECON | Unknown | Unavailable | + + + + + | Arden Terrazas | ECON | Unknown | | + + + + + Care Team Providers + +------+ + | Care Record Filing Clerk Name | Role | Phone | [...] | +--------+ + + + + | 11/29/ | Telephone | [facility] Primary Care | Yuriy Cardenas, | Medication | | 2017 | | at [place] [address] | PA-C [address] | management | | | | [facility] | [facility] | | | | | [facility] [place], [place] | [place], [place] | | | | | [address] | [address] | | | | | [phone] | [phone] | | | | | | | [...]
--- OUTSIDE RECORDS SUMMARY | ~2019-10-16 | XMS | Encounter Summary ---
Demographics + + + | Address | [address] | | | [place] [address] | + + + | Home Phone [...] [place] | | | | | [address] | | + + + + + | Bebe Terrazas | ECON | Unknown | Unavailable | + + + + + | Arden Terrazas | ECON | Unknown | | + + + + + Care Team Providers + +------+ + | Care Mysql Dba Name | Role | Phone | + +------+ + | Yuriy Cardenas PA-C | PCP | | + +------+ + Encounter Details +--------+--------+ + + + | Date | Type | Department | Care Team | Description | +--------+--------+ + + + | 10/07/ | Refill | [facility] | Yuriy Cardenas, | | | 2017 | | at [place] [address] | PA-C [address] | | | | | [address] | [address] | | | | | [facility] [place], [place] | [place], [place] | | | | | [address] | [address] | | | | | [phone] | | | | | | | [...]
--- OUTSIDE RECORDS SUMMARY | ~2019-10-16 | XMS | Encounter Summary ---
Demographics + + + | Address | [address] | | | [place] [address] | + + + | Home Phone | | + + + | Preferred Language | Unknown | + + + | Marital Status | | + + + | Jain Affiliation | PRE | + + + [...] [place] | | | | | [address] | | + + + + + | Bebe Terrazas | ECON | Unknown | Unavailable | + + + + + | Arden Terrazas | ECON | Unknown | | + + + + + Care Team Providers + +------+ + | Care Search Engine Optimization Analyst Name | Role | Phone | + +------+ + | Zora Haddad DO | PCP | | + +------+ + Reason for Visit + + + | Reason | Comments | + + + | Erroneous Encounter | | | - Disregard | | + + + Encounter Details +--------+ + + + + | Date | Type | Department | Care Team | Description | +--------+ + + + + | 02/06/ | Telephone | Neurosurgery [address] | Sivakumar Tanner, | Erroneous Encounter | | 2012 | | [address] | MD [address] | - Disregard | | | | Physician's | [place], [place] | | | | | [address], [facility] floor | [address] | | | | | [place], [place] | [phone] | | | | | [address] | | | | | | [phone] | | | +--------+ + + + [...]
--- OUTSIDE RECORDS SUMMARY | ~2019-10-16 | XMS | Encounter Summary ---
Demographics + + + | Address | [address] | | | [place] [address] | + + + | Home Phone [...] [place] | | | | | [address] | | + + + + + | Bebe Terrazas | ECON | Unknown | Unavailable | + + + + + | Arden Terrazas | ECON | Unknown | | + + + + + Care Team Providers + +------+ + | Care Wire Wrapper Machine Operator Name | Role | Phone [...] + + | 03/28/ | Office | [facility] | Yuriy Cardenas, | Type 2 diabetes | | 2018 | Visit | at [place] [address] | PA-C [address] | mellitus without | | | | [address] | [address] | complication, with | | | | [place], [place] | [place], [place] | long-term current | | | | [address] | [address] | use of insulin (HCC) | | | | [phone] | [phone] | (Primary Dx); | | | | [...] to live in this area, coming from [facility] on still. Feels that the 24hr [...] prescriptions to [facility] to see if they are able to [...] [facility] | [address] | [place] [address] | | | SERVICES, CORE | [address] [...] | [facility] | | considered for monitoring adjunct faculty for medical terminology glycemic control in patients with: | LABORATORY [...] [facility] | [address] | [place] [address] | | | SERVICES, SPECIAL | [address] [...] | | | LABORATORY | | | [facility] | | | SERVICES, | | | [...] | + + + + + | [facility] | [address] | [place] [address] | | | SERVICES, CORE | [address] [...] + | [facility] | [address] | [place] [address] | | | [place] | | | [...] [facility] | [address] | [place] [address] | | | SERVICES, CORE | [address] [...] [facility] | [address] | [place] [address] | | | SERVICES, CORE | [address] [...]
--- OUTSIDE RECORDS SUMMARY | ~2019-10-16 | XMS | Encounter Summary ---
Demographics + + + | Address | [address] [facility] [address] | | | [place] [address] | + + + | Home Phone | | + + + | Preferred Language | Unknown | + + + | Marital Status | | + + + | Synagogue Affiliation | [id number] | + + + | Race | Unknown | + + + | Ethnic Group | Unknown | + + + Author + + + | Author | [facility] | | | and Juan Joséana | + + + | Organization | [facility] | | | and [place] | + + + | Address | Unknown | + + + | Phone | Unavailable | + + + Support + + + + + | Name | Relationship | Address | Phone | + + + + + | Dustin Merino | ECON | [place] | | | | | [address] | | + + + + + | Bebe Merino | ECON | [address] | | | | | [facility] [place] | | | | | [address] | | + + + + + Care Team Providers + +------+ + | Care Cnc Machine Programmer Name | Role | Phone | + +------+ + PCP | Unavailable | + +------+ + Encounter Details +--------+ + + + + | Date | Type | Department | Care Team | Description | +--------+ + + + + | 05/02/ | Hospital | [facility] | Nick Judd | Hyperlipidemia; | | 2016 - | Encounter | [facility] | Jose Carlos Fuentes MD [address] | Hypertriglyceridemia | | | | CLINICAL DECISION | [address] | ; Precordial pain; | | 05/03/ | | [address] | [place] [address] | Coronary artery | | 2016 | | [place], [place] | [phone] | disease involving | | | | [address] | | [place] coronary | | | | [phone] | | artery of [place] | | | | | | heart with angina | | | | | | pectoris (HCC) | +--------+ + + + + Social [...] + + + | Blood Pressure | 115/57 | 05/04/2015 2:37 PM | | | | | PST | | + + + + + | Pulse | 111 | 05/04/2015 2:37 PM | | | | | PST | | + + + + + | Temperature | 36.7 C (98 F) | 05/04/2015 2:37 PM | | | | | PST | | + + + + + | Respiratory Rate | 20 | 05/04/2015 2:37 PM | | | | | PST | | + + + + + | Oxygen Saturation | - | - | | + + + + + | Inhaled Oxygen | - | - | | | Concentration | | | | + + + + + | Weight | 84.4 kg (186 lb) | 05/04/2015 2:37 PM | | | | | PST | | + + + + + | Height | 167.6 cm (5' 6") | 05/04/2015 2:37 PM | | | | | PST | | + + + + + | Body Mass Index | 30.02 | 05/04/2015 2:37 PM | | | | | PST | | + + + + + documented in this encounter Discharge Summaries Conversion Transaction, Provider Unknown - 05/04/2015 3:28 PM PSTFormatting of this note m ight be different from the original. Discharge Summaries by Mandie Pollard at 05/04/15 1528 Author: Mandie Pollard Service: (none) Author Type: Transcription Coordinator Filed: 05/04/15 1530 Date of Service: 05/04/15 152 Status: Signed Auto Damage Adjuster: Mandie Pollard (Transcription Coordinator) Discharge instructions were explained to patient and prescriptions were given to patient to take to the pharmacy. Patient did not have any questions and was in stable condition. Alexandria delarosa was present and driving patient home. 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 * Procedures Performed: Chief Complaint: No chief complaint on file. Hospital Course: Mary Merino is a 44 y.o. female who was admitted on 05/03/2015 with chest pain in the se tting of known coronary artery disease past stents being placed in 2013 and uncontrolled jorge betes. Patient was admitted cardiac enzymes proved to be negative she underwent nuclear stre ss testing and was unable to exercise well therefore was inverted to a chemical stress test. . On the stress test she had an area of infarction no reversible ischemia was seen. Given e mention of infarction versus hibernating myocardium in the radiology report I discussed nh on-call cardiology Dr. hanson. He confirmed infarct being seen and reviewed the record i n care everywhere showing that the patient had emergent cardiac stenting being accomplished with prior infarction which fit with the imaging results seen at this point. 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 Cardiology also recommended starting her on a fi brate for her triglycerides along with a statin and trying to control her serum blood gluco se better which her primary care is currently working on. She states she is on a low-dose as pirin now which we will continue and additionally I will add a low-dose beta ethan. I disc ussed with her the potential for blunting of hypoglycemia symptoms on the beta ethan and s he will be aware. She will follow-up with her primary care provider and try to get an appoin tment for next week to review how she is doing on the medication regimen with respect to tonio erance and see if any adjustments need to be made. The patient's blood pressure is not curre ntly seen to be elevated so I will not add a long-acting nitrate for prevention of chest mary n but this goes be considered in the future by cardiology. With respect to her blood sugars her primary care provider is adjusting her slidin scal and follow-up with her primary care jose luis solorzano. Discharge Exam and Data: Vital Signs: BP 115/57 mmHg | Pulse 111 | Temp(Src) 98 F (36.7 C) (Oral) | Resp 20 | Ht 1.676 m (5' 6") | Wt 84.369 kg (186 lb) | BMI 30.04 kg/m2 | SpO2 96% I&O Last 3 Shifts: Physical Examination: Constitutional: Alert and oriented to person, place, and time. Appears well-developed and w ell-nourished. HEENT: Neck supple, no JVD, non icteric sclera. Cardiovascular: Normal rate, regular rhythm, normal heart sounds with S1 and S2, and intact distal pulses. Exam reveals no gallop and no friction rub. No murmur heard. Pulmonary/Chest: Effort normal and breath sounds normal. No stridor. No respiratory distres s. no wheezes. no rales. exhibits no tenderness. Abdominal: Soft. Bowel sounds are normal. exhibits no distension and no mass. There is no t enderness. There is no rebound and no guarding. Extremeties/Musculoskeletal: Normal range of motion.exhibits no tenderness. exhibits no ed cony. Neurological: Alert and oriented to person, place, and time. Has normal reflexes. No cran ial nerve deficit. Exhibits normal muscle tone. Coordination normal. Skin: Skin is warm and dry. No rash noted. No erythema. No pallor. Psychiatric: Has a normal mood and affect. Behavior is normal. Judgment normal. Recent Labs Recent Labs Lab 05/04/15 0607 WBC 10.33 HGB 14.8 HCT 44.3 PLT 241 Recent Labs Lab 05/04/15 0607 NA 133* K 4.1 CL 102 CO2 22* BUN 13 CREATININE 0.50 No results for input(s): INR in the last 168 hours. Results No results found for the last 72 hours. Recent Radiology Results Nm Myocardial Perfusion Spect (stress And Rest) 05/04/2015 1. Moderate to severe fixed perfusion defects in LAD territory with associated regional wall motion abnormality concerning for infarct or hibernating myocardium. 2. Left ventricular ejection fraction is calculated at 58% at stress. These findings are communicat ed via telephone to Dr. Mattson by Dr. Alaniz on 05/04/2015 at 1:52 PM. Electronically sign ed by Julia Alaniz on 05/04/2015 1:55 PM Outstanding Issues: Following up with cardiology and her primary care provider further adjustment of her insuli n the outpatient setting follow-up on her tolerance of the current medications as well as la bs including of her function tests and CPK in a setting of being on a statin and fiber 8. Discharge Information: Follow up: Ki Senior, SHIRA [address] [facility] [address] Schedule an appointment as soon as possible for a visit in 1 week or sooner if needed [facility] [address] [facility] [address] [facility] [address] resume carwe with all providers you were seeing before admission Medication List START taking these medications atorvastatin 10 MG tablet QTY: 15 tablet Refills: 0 Commonly known as: LIPITOR Take 1 tablet by mouth nightly. gemfibrozil 600 MG tablet QTY: 30 tablet Refills: 0 Commonly known as: LOPID Take 1 tablet by mouth 2 (two) times daily before meals. metoprolol 25 MG 24 hr tablet QTY: 15 tablet Refills: 0 Commonly known as: TOPROL-XL Take 1 tablet by mouth daily. nitroGLYCERIN 0.4 MG SL tablet QTY: 90 tablet Refills: 0 Commonly known as: NITROSTAT Place 1 tablet under the tongue every 5 (five) minutes as needed for Chest pain. CONTINUE taking these medications albuterol 108 (90 BASE) MCG/ACT inhaler Refills: 0 Commonly known as: PROVENTIL HFA;VENTOLIN HFA aspirin 81 MG tablet Refills: 0 COZAAR 25 MG tablet Refills: 0 Generic drug: losartan insulin aspart 100 UNIT/ML injection Refills: 0 Commonly known as: NOVOLOG insulin glargine 100 UNIT/ML injection Refills: 0 Commonly known as: ALHAJI Where to Get Your Medications These are the prescriptions that you need to pick and shovel man. You may get the following medications from any pharmacy - atorvastatin 10 MG tablet - gemfibrozil 600 MG tablet - metoprolol 25 MG 24 hr tablet - nitroGLYCERIN 0.4 MG SL tablet Disposition: Home Condition: Stable Code Status: Full Code Discharge took 40 minutes, to include final examination, discussion of admission, and prepa ration of prescriptions, instructions for on-going care, follow-up and documentation of disc harge summary. GABINO SMILEY MD 2:52 PM documented in this encounter Medications at Time [...] Progress Notes Conversion Transaction, Provider Unknown - 05/04/2015 3:45 PM PSTFormatting of this note m ight be different from the original. Nurse Progress Note by Elena Otero RN at 05/04/151544 Author: Elena Otero RN Service: (none) Author Type: Registered Nurse Filed: 05/04/151544 Date of Service: 05/04/151544 Status: Signed Auto Damage Adjuster: Elena Otero RN (Registered Nurse) Patient discharged off unit by ambulating to private vehicle with daughter. Discussed all discharge and prescription information with patient. Patient verbalized an understanding of all discharge and prescription information. All personal belongings with patient at time o f discharge. TELE notified. onver mayank Transaction, Provider Unknown - 05/04/2015 2:53 PM PST Nurse Progress Note by Christine Powell RN at 05/04/15 870 Author: Christine Powell RN Service: (none) Author Type: Registered Nurse Filed: 05/04/15 359 Date of Service: 05/04/151452 Status: Signed Auto Damage Adjuster: Christine Powell RN (Registered Nurse) Pt discharged. IV removed. Instructions given and pt states understanding. No c/o at this time. Discharged with family. onver mayank Transaction, Provider Unknown - 05/04/2015 2:42 PM PST Case Management by MEG Muro at 05/04/15 682 Author: MEG Muro Service: (none) Author Type: Motorbike Courier Filed: 05/04/15 144 Date of Service: 05/04/151441 Status: Signed Auto Damage Adjuster: MEG Muro (Motorbike Courier) CM met with patient to discuss discharge planning. She reports she will be return home today and her daughter, who is present, will be her tra nsportation. onver mayank Transaction, Provider Unknown - 05/04/2015 1:36 PM PST Progress Notes by Myranda Bethea RPH at 05/04/15 452 Author: Myranda Bethea RPH Service: (none) Author Type: Pharmacist Filed: 05/04/151335 Date of Service: 05/04/151335 Status: Signed Auto Damage Adjuster: Myranda Bethea RPH (Pharmacist) Renal Dosing Monitoring: Mary Merino 44 y.o. female Pharmacy dosing for renal function per Dr. Judd Estimated Creatinine Clearance: 157.1 mL/min (by C-G formula based on Cr of 0.5). Plan per protocol: Medications do not require adjustment for renal function at present Pharmacy will continue monitoring patient for appropriate dosing per renal function. 05/04/2015 1:36 PM Pharmacist: Myranda Bethea >> CAROLYN POLLARD 05/03/2015 17:19 Clinical Pharmacy Note - Renal Dose Adjustment aMry Merino 44 y.o. female Ht Readings from Last 1 Encounters: 05/03/15 1.676 m (5' 6") Wt Readings from Last 1 Encounters: 05/03/15 84.369 kg (186 lb) No results found for: CREATININE Creatinine clearance cannot be calculated (No order found.) Pharmacy to renally adjust medications per Dr. Judd Plan: No current Scr. Will follow up once labs are available. Pharmacy will continue to follow and adjust as appropriate. Pharmacist: Carolyn Pollard 05/03/2015 5:19 PM arolyn Wolfe RPH - 05/03/2015 5:19 PM PSTFormatting of this note might be different from t [place] original. Progress Notes by Carolyn Pollard RPH at 05/03/151718 Author: Carolyn Pollard RPH Service: (none) Author Type: Pharmacist Filed: 05/03/151718 Date of Service: 05/03/151718 Status: Signed Auto Damage Adjuster: Carolyn Pollard RPH (Pharmacist) Clinical Pharmacy Note - Renal Dose Adjustment Mary Hammondi 44 y.o. female Ht Readings from Last 1 Encounters: 05/03/15 1.676 m (5' 6") Wt Readings from Last 1 Encounters: 05/03/15 84.369 kg (186 lb) No results found for: CREATININE Creatinine clearance cannot be calculated (No order found.) Pharmacy to renally adjust medications per Dr. Judd Plan: No current Scr. Will follow up once labs are available. Pharmacy will continue to follow and adjust as appropriate. Pharmacist: Carolyn Pollard 05/03/2015 5:19 PM documente d in this encounter H&P Notes Nick Judd MD - 05/03/2015 2:12 PM PST H&P by Nick Judd MD at 05/03/151411 Author: Nick Judd MD Service: Hospitalist Author Type: Physician Filed: 05/03/152157 Date of Service: 05/03/151411 Status: Signed Auto Damage Adjuster: Nick Judd MD (Physician) [facility] Service: Hospitalist Admission History & Physical Date of Admission: 05/03/2015 Requesting Physician: Dr. Tolbert Emergency Department, [facility], [facility]. Reason for Admission: Chest Pain / Angina, CAD, HTN History Obtained From: patient, chart review CHIEF COMPLAINT: I have been having chest pains off and on HISTORY OF PRESENT ILLNESS: The patient is 44 y.o. female with significant past medical history of CAD, S/P Stent place ment in 2013, HTN, HLD and DM Type 2 who was admitted as a transfer from [facility] in [facility] for evaluation of chest pains. According to the patient, she was doing fair until a week ago when she developed chest pain symptoms. It was not intense and not as freq uent and she discussed these symptoms with her PCP. He recommended sublingual NTG as PRN whi ch she took few times. Today, she had chest pain which woke her up from sleep, described as pressure and tightness like sensation, retrosternal in location, moderate to severe in inten sity, 7-8/10 on a pain scale, radiating to the right arm, axillary and upper back area. Ther e was no associated shortness of breath, nausea, vomiting, lightheadedness or dizziness. The re were no aggravating factors like exertion and she had to take up to three sublingual NTG' s which eventually helped in chest pain symptoms. She then went to the ER for evaluation. At [facility] ER, she was hemodynamically stable and chest pain free while init ial labs including CBC, CMP and first set of cardiac enzymes including Troponin were stable. EKG revealed no new ST segment changes. She was given a dose of ASA, one dose of S/C Loveno x and then transferred to [facility] for higher level of care, NM Stress test and cardiology evalu ation if needed. REVIEW OF SYSTEMS: Review of Systems Constitutional: Positive for activity change and fatigue. Negative for fever, chills, diaph oresis, appetite change and unexpected weight change. HENT: Negative. Eyes: Positive for redness. Respiratory: Positive for chest tightness. Negative for cough, choking, shortness of breath , wheezing and stridor. Cardiovascular: Positive for chest pain. Negative for palpitations and leg swelling. Gastrointestinal: Negative. Endocrine: Negative. Genitourinary: Negative. Musculoskeletal: Positive for myalgias and back pain. Negative for joint swelling, arthralg ias, neck pain and neck stiffness. Skin: Negative. Allergic/Immunologic: Negative. Neurological: Negative. Hematological: Negative. Psychiatric/Behavioral: Negative. Negative for behavioral problems, dysphoric mood, decrea sed concentration and agitation. The patient is not nervous/anxious. Past Medical History Diagnosis Date Hyperlipidemia Hypertension Old myocardial infarction Asthma Chronic back pain Coronary artery disease involving [place] coronary artery of [place] heart with angina pe ctoris ([facility]) 05/03/2015 Type 2 diabetes mellitus without complication ([facility]) 05/03/2015 Past Surgical History Procedure Laterality Date Cholecystectomy Tubal ligation Breast surgery Spine surgery Lithotripsy Coronary stent placement Sinus surgery Allergies Allergen Reactions Latex Hives Sulfa Antibiotics Rash Codeine Nausea and Vomiting Prescriptions prior to admission Medication Sig Dispense Refill Last Dose albuterol (PROVENTIL HFA;VENTOLIN HFA) 108 (90 BASE) MCG/ACT inhaler Inhale 2 puffs int o the lungs every 4 (four) hours as needed for Wheezing. Past Month aspirin 81 MG tablet Take 81 mg by mouth daily. 05/03/2015 insulin aspart (NOVOLOG) 100 UNIT/ML injection Inject into the skin 3 (three) times da latanya before meals. Indications: Insulin-Dependent Diabetes insulin glargine (LANTUS) 100 UNIT/ML injection Inject 14 Units into the skin nightly. Indications: Insulin-Dependent Diabetes losartan (COZAAR) 25 MG tablet Take 25 mg by mouth daily. Indications: High Blood Press ure 05/02/2015 Family History: Significant for WPW Syndrome in her grandmother and one of her aunt had CA D. There is history of DM in her mother. There is also history of Ovarian Cancer in her moth er side of the family. SOCIAL HISTORY: Patient lives in [facility]. She is and lives with her . Has good support system. 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 She admits to smoking half pack et of cigarettes and also smokes Marijuana on a regular basis. There is no history of recrea tional drug use at present or in the past including alcohol. PHYSICAL EXAM Vital Signs: BP 121/78 mmHg | Pulse 99 | Temp(Src) 98.1 F (36.7 C) (Oral) | Resp 16 | Ht 1.676 m (5' 6") | Wt 84.369 kg (186 lb) | BMI 30.04 kg/m2 | SpO2 95% Physical Exam Constitutional: She is oriented to person, place, and time. She appears well-developed and well-nourished. No distress. HENT: Head: Normocephalic. Right Ear: External ear normal. Left Ear: External ear normal. Nose: Nose normal. Mouth/Throat: Oropharynx is clear and moist. No oropharyngeal exudate. Eyes: Conjunctivae and EOM are normal. Pupils are equal, round, and reactive to light. Righ t eye exhibits no discharge. Left eye exhibits no discharge. No scleral icterus. Neck: Normal range of motion. Neck supple. No thyromegaly present. Cardiovascular: Normal rate and regular rhythm. Exam reveals no friction rub. No murmur heard. Pulmonary/Chest: Effort normal and breath sounds normal. No respiratory distress. She has n o wheezes. She has no rales. Abdominal: Soft. Bowel sounds are normal. There is no tenderness. There is no guarding. Musculoskeletal: Normal range of motion. She exhibits no edema or tenderness. Neurological: She is alert and oriented to person, place, and time. No cranial nerve defici t. She exhibits normal muscle tone. Coordination normal. Skin: Skin is warm and dry. No rash noted. She is not diaphoretic. No erythema. No pallor. Psychiatric: She has a normal mood and affect. Her behavior is normal. Judgment and thought content normal. Vitals reviewed. DATA Recent Results (from the past 24 hour(s)) POCT glucose Collection Time: 05/03/15 4:55 PM Result Value Ref Range GLUCOSE,POC SCREEN 154 (H) 65 - 99 mg/dL Troponin I Collection Time: 05/03/15 5:04 PM Result Value Ref Range TROPONIN I <0.020 0.00 - 0.10 ng/mL CPK Collection Time: 05/03/15 5:04 PM Result Value Ref Range CPK 22 (L) 30 - 240 U/L CK MB Collection Time: 05/03/15 5:04 PM Result Value Ref Range MMB 0.7 0.5 - 3.6 ng/mL CK-MB Index 3.2 Troponin I Collection Time: 05/03/15 8:25 PM Result Value Ref Range TROPONIN I <0.02 0.00 - 0.10 ng/mL CPK Collection Time: 05/03/15 8:25 PM Result Value Ref Range CPK 28 (L) 30 - 240 U/L CK MB Collection Time: 05/03/15 8:25 PM Result Value Ref Range MMB 0.9 0.5 - 3.6 ng/mL CK-MB Index 3.2 POCT glucose Collection Time: 05/03/15 9:42 PM Result Value Ref Range GLUCOSE,POC SCREEN 268 (H) 65 - 99 mg/dL Creatinine 0.5 PROBLEM LIST Principal Problem: Angina pectoris ([facility]) Active Problems: Precordial pain Coronary artery disease involving [place] coronary artery of [place] heart with angina pect monse ([facility]) Essential hypertension Type 2 diabetes mellitus without complication ([facility]) ASSESSMENT & PLAN Angina Pectoris / Chest Pain: Patient has history of CAD with IA and Stent Placement in . Her current symptoms and clinical findings are likely due to Angina. Will admit her for observation and repeat serial cardiac enzymes and Troponin's followed by a NM Stress test in AM. Hospitlalist service will consult cardiology service if there are findings of reversib le ischemia. Will continue ASA, Metoprolol and Lipitor at 80 mg daily. Coronary Artery Disease: S/P IA in the past and stents placed in 2013 as mentioned above. Will proceed with NM stress test in AM and continue ASA, Plavix, Metoprolol, Statins and mon itor closely. Will consult Cardiology services as needed. DM Type 2: Will monitor blood sugars AC and HS and give Humalog Insulin per SSI. Will also resume home Lantus and check HBA1C with am labs. Hypertension: BP seems to be stable at this time. Will continue Losartan and Metoprolol as scheduled and monitor hemodynamics. Hyperlipidemia: Will check fasting lipid profile in AM and continue Lipitor 80 mg daily. DVT prophylaxis with SCD's and Lovenox. Patient will be admitted for observation and close monitoring. Disposition: Admit to CDU Code Status: Full Code Primary Care Physician: PER PT NONE Spent more than 70 minutes admitting this patient including face to face time at bedside, t aking history and physical examination, explained all laboratory findings, discussed plan of care and further management including need for admission. Also spent extensive time reviewi ng previous record, formulating a plan, coordinating care with staff members and documentati on. NICK JUDD MD 05/03/2015 documented in th is encounter Procedure Notes Susanna Chi ARNP - 05/04/2015 1:01 PM PSTFormatting of this note might be different fr om the original. Procedures by PRICE Coronado at 05/04/15 1301 Author: PRICE Coronado Service: Radiology Author Type: Advanced Registered Nurse Jose Luis salazar Filed: 05/04/15 1303 Date of Service: 05/04/15 1301 Status: Signed Auto Damage Adjuster: PRICE Coronado (Advanced Registered Nurse Dimitrios) Pre-procedure Diagnoses: 1. Chest pain, unspecified chest pain type [R07.9] Post-procedure Diagnoses: 1. Chest pain, unspecified chest pain type [R07.9] Procedures: 1. NM MYOCARDIAL PERFUSION SPECT - STRESS AND REST [[id number] (Custom)] [facility] Service: Diagnostic Imaging/Nuclear Medicine Cardiac Stress Test Note Type of Stress Test performed (protocol): Pharmacologic stress test Mario protocol time (if applicable): N/A Rhythm changes: None Ectopy: PVCs, bigeminy Symptoms experienced during exam: None ST/T wave changes: None Medications administered: Lexiscan 0.4 mg Benitez Treadmill Score: N/A Comments: Attempted Mario protocol initially, fatigued, unable to achieve target heart rat e. C/o chest tightness 4/10 with exercise, resolved in recovery documented in this encounter Consult Notes Conversion Transaction, Provider Unknown - 05/04/2015 11:22 AM PSTFormatting of this note m ight be different from the original. Consults by Tyrone Washington RN, CDE at 05/04/15 1122 Author: Tyrone Washington RN, CDE Service: (none) Author Type: Senior Sharepoint Developer Filed: 05/04/15 1154 Date of Service: 05/04/151121 Status: Signed Auto Damage Adjuster: Tyrone Washington RN, CDE (Senior Sharepoint Developer) Consult Orders: 1. Inpatient consult to acid maker [[id number]] ordered by Gabino Smiley MD at 0813 Diabetes Education Met with Patient today. Patient reports that she recently established care with with PCP in [place] for Diabetes care. Recently started on insulin ~5 weeks ago, and uses Lantus and Novolog insulin pens. Had a f/u with PCP ~1 week ago at which time the Lantus dose was increased. Has f/u with PCP currently scheduled in ~3 weeks for f/u to new insulin regimen. Per Patient, current insulin regimen; Lantus 14 units HS, Novolog per sliding scale 2 units for every 50 points BG over target of 100 (BG 150-199= 2 units, 200-249=4 units, etc.) Has not experienced any low blood sugars. Has adequate amount of Diabetes supplies at home, and is testing BG before meals and at bed time. Has been noticing overall BG results were improving at home, with recent AM fasting results less than 180 prior to admission. Discussed current hospital insulin regimen and Medium Dose correctional scale. Patient awar e that dose amounts may change pending BG response. Discussed Diabetes patho, Type 1 vs. Type 2, insulin onset/peak/duration, insulin expiratio n and storage, and site rotation. Discussed potential of meal time insulin coverage in addition to sliding scale if BG trends remain elevated, and encouraged to discuss this idea with PCP at next visit. Discussed hypoglycemia s/s tx and prevention, "Rule of 15". Encouraged to call provider Discussed A1c of 11.5%, and mcfp complications/prevention. Discussed balanced meal planning; 45-60g carb per meal, as well as Heart Healthy meal plann ing avoiding Trans fats and limiting Saturated fats and sodium. Discussed role of Diabetes Educators, and Patient reports had been discussing with PCP a pl an to attend Diabetes Education. Written material "Disabetes Management" provided today. Patient with no further Diabetes questions at this time. Intends to follow with PCP for continued Diabetes care after hospital discharge. Tyrone Washington RN, CDE 05/04/2015 docume nted in this encounter Miscellaneous Notes Plan of Care - Conversion Transaction, Provider Unknown - 05/03/2015 8:27 PM PST Plan of Care by Asa Salas RN at 05/03/152026 Author: Asa Salas RN Service: (none) Author Type: Registered Nurse Filed: 05/03/152026 Date of Service: 05/03/152026 Status: Signed Auto Damage Adjuster: Asa Salas RN (Registered Nurse) Daily care needs are met Progressing Patient's discharge needs are met Progressing Patient's pain/discomfort is manageable Progressing Demonstrates ability to cope with hospitalization/illness Progressing Collaborate with patient/family/caregiver to identify patient specific goals for this hospi talization Progressing Patient will be injury free during hospitalization Progressing docume nted in this encounter Plan of Treatment Not on filedocumented as of this encounter Procedures + +--------+ + + + | Procedure Name | Priori | Date/Time | Associated Diagnosis | Comments | | | ty | | | | + +--------+ + + + | POC GLUCOSE | Routin | 05/04/2015 | | Results for this | | | e | 2:13 PM | | procedure are in the | | | | PST | | results section. | + +--------+ + + + | NM MYOCARDIAL | Routin | 05/04/2015 | | Results for this | | PERFUSION MULT SPECT | e | 1:42 PM | | procedure are in the | | | | PST | | results section. | + +--------+ + + + | EXTERNAL LAB: CBC | Routin | 05/04/2015 | | Results for this | | | e | 6:07 AM | | procedure are in the | | | | PST | | results section. | + +--------+ + + + | LIPID PANEL | Routin | 05/04/2015 | | Results for this | | | e | 6:07 AM | | procedure are in the | | | | PST | | results section. | + +--------+ + + + | TSH | Routin | 05/04/2015 | | Results for this | | | e | 6:07 AM | | procedure are in the | | | | PST | | results section. | + +--------+ + + + | PHOSPHORUS | Routin | 05/04/2015 | | Results for this | | | e | 6:07 AM | | procedure are in the | | | | PST | | results section. | + +--------+ + + + | MAGNESIUM | Routin | 05/04/2015 | | Results for this | | | e | 6:07 AM | | procedure are in the | | | | PST | | results section. | + +--------+ + + + | HEMOGLOBIN A1C | Routin | 05/04/2015 | | Results for this | | | e | 6:07 AM | | procedure are in the | | | | PST | | results section. | + +--------+ + + + | COMPREHENSIVE | Routin | 05/04/2015 | | Results for this | | METABOLIC PANEL | e | 6:07 AM | | procedure are in the | | | | PST | | results section. | + +--------+ + + + | POC GLUCOSE | Routin | 05/04/2015 | | Results for this | | | e | 5:50 AM | | procedure are in the | | | | PST | | results section. | + +--------+ + + + | ECG 12 LEAD | Routin | 05/03/2015 | | Results for this | | | e | 10:34 PM | | procedure are in the | | | | PST | | results section. | + +--------+ + + + | POC GLUCOSE | Routin | 05/03/2015 | | Results for this | | | e | 9:42 PM | | procedure are in the | | | | PST | | results section. | + +--------+ + + + | TROPONIN I | Routin | 05/03/2015 | | Results for this | | | e | 8:25 PM | | procedure are in the | | | | PST | | results section. | + +--------+ + + + | CK-MB | Routin | 05/03/2015 | | Results for this | | | e | 8:25 PM | | procedure are in the | | | | PST | | results section. | + +--------+ + + + | CK TOTAL | Routin | 05/03/2015 | | Results for this | | | e | 8:25 PM | | procedure are in the | | | | PST | | results section. | + +--------+ + + + | TROPONIN I | Routin | 05/03/2015 | | Results for this | | | e | 5:04 PM | | procedure are in the | | | | PST | | results section. | + +--------+ + + + | CK-MB | Routin | 05/03/2015 | | Results for this | | | e | 5:04 PM | | procedure are in the | | | | PST | | results section. | + +--------+ + + + | CK TOTAL | Routin | 05/03/2015 | | Results for this | | | e | 5:04 PM | | procedure are in the | | | | PST | | results section. | + +--------+ + + + | POC GLUCOSE | Routin | 05/03/2015 | | Results for this | | | e | 4:55 PM | | procedure are in the | | | | PST | | results section. | + +--------+ + + + documented in this encounter Results POC Glucose (05/04/2015 2:13 PM PST) + + + + + + | Component | Value | Ref Range | Performed | Pathologist | | | | | At | Signature | + + + + + + | Glucose, | 167 (H)Comment: Testing | 65 - 99 mg/dL | EXTERNAL | | | Fingerstick | performed at [facility] | [place] | | | [address];[place], [place] | | | | | | [address] | | | | + + + + + + + + | Specimen | + + | | + + + +---------+ + + | Performing | Address | City/State/Zipcode | Phone Number | | Organization | | | | + +---------+ + + | EXTERNAL LAB | | | | + +---------+ + + NM Myocardial Perfusion Mult SPECT (05/04/2015 1:42 PM PST) + + | Specimen | + + | | + + + + + | Impressions | Performed At | + + + | 1. Moderate to severe fixed perfusion defects in LAD territory | | | with associated regional wall motion abnormality concerning for | | | infarct or hibernating myocardium. 2. Left ventricular ejection | | | fraction is calculated at 58% at stress. These findings are | | | communicated via telephone to Dr. Mattson by Dr. Alaniz on 05/04/2015 | | | at 1:52 PM. | | | 1:55 PM | | + + + + + + | Narrative | Performed At | + + + | [facility] 1970 NM MYOCARDIAL PERFUSION SPECT - STRESS | | | AND REST 05/04/2015 1:42 PM INDICATION: Chest pain COMPARISON: | | | Multiple, most recent chest radiographs dated 05/03/2015 TECHNIQUE: | | | A same day, rest and stress protocol was performed. For the resting | | | portion of the study the patient was injected intravenously with 10.5 | | | mCi of technetium 99m labeled Cardiolite. Gated SPECT imaging was | | | performed in the supine position. The patient was then | | | pharmacologically stressed with 0.4 mg of regadenoson intravenously | | | according to protocol. Resting heart rate jermain from 81 beats/min to | | | 130 beats/min which was 73% of the maximum age-predicted heart rate. | | | At the point of maximum stress, the patient received 41 mCi of | | | technetium 99m labeled Cardiolite intravenously. Gated SPECT images | | | were acquired in the prone and supine positions. FINDINGS: | | | Moderate to severe fixed perfusion defects in apical, mid and basal | | | anterior septal and anterior wall segments. Small moderate perfusion | | | defect in apical inferior wall segment. There is associated | | | hypokinesis. The following functional data was obtained at | | | stress: End-diastolic volume: 100 mL End-systolic volume: 41 mL | | | Ejection fraction: 58% | | + + + + + | Procedure Note | + + | Ross Worley Conversion - 10/16/2018 3:35 PM PDT [facility]1970NM MYOCARDIAL | | PERFUSION SPECT - STRESS AND REST05/04/2015 1:42 PM INDICATION: Chest pain COMPARISON: | | Multiple, most recent chest radiographs dated 05/03/2015 TECHNIQUE:A same day, rest and | | stress protocol was performed. For the resting portion of the study the patient was | | injected intravenously with 10.5 mCi of technetium 99m labeled Cardiolite. Gated SPECT | | imaging was performed in the supine position. The patient was then pharmacologically | | stressed with 0.4 mg of regadenoson intravenously according to protocol. Resting heart | | rate jermain from 81 beats/min to 130 beats/min which was 73% of the maximum age-predicted | | heart rate. At the point of maximum stress, the patient received 41 mCi of technetium | | 99m labeled Cardiolite intravenously. Gated SPECT images were acquired in the prone and | | supine positions. FINDINGS:Moderate to severe fixed perfusion defects in apical, mid | | and basal anterior septal and anterior wall segments. Small moderate perfusion defect in | | apical inferior wall segment. There is associated hypokinesis. The following | | functional data was obtained at stress:End-diastolic volume: 100 mLEnd-systolic volume: | | 41 mLEjection fraction: 58% IMPRESSION: 1. Moderate to severe fixed perfusion defects | | in LAD territory with associated regional wall motion abnormality concerning for infarct | | or hibernating myocardium.2. Left ventricular ejection fraction is calculated at 58% | | at stress. These findings are communicated via telephone to Dr. Mattson by Dr. Alaniz | | on 05/04/2015 at 1:52 PM. | |The following functional data was obtained at stress: | |End-diastolic volume: 100 mL | |End-systolic volume: 41 mL | |Ejection fraction: 58% | | | |IMPRESSION: | |1. Moderate to severe fixed perfusion defects in LAD territory with associated regional wa ll motion abnormality concerning for infarct or hibernating myocardium. | |2. Left ventricular ejection fraction is calculated at 58% at stress. | | | |These findings are communicated via telephone to Dr. Mattson by Dr. Alaniz on 05/04/2015 at 1:52 PM. | | | | | + + External Lab: CBC (05/04/2015 6:07 AM PST) + + + + + + | Component | Value | Ref Range | Performed | Pathologist | | | | | At | Signature | + + + + + + | WBC | 10.33Comment: Testing | 3.80 - 11.00 | EXTERNAL | | | | performed at [facility], [address] | K/uL | LAB | | | | [address], | | | | | | [place] [address] | | | | + + + + + + | Non- | 4.90Comment: Testing | 3.70 - 5.10 | EXTERNAL | | | Red Blood | performed at [facility], [address] | M/uL | LAB | | | Cells | [address], | | | | | Counted | [place] [address] | | | | + + + + + + | Hemoglobin | 14.8Comment: Testing | 11.3 - 15.5 | EXTERNAL | | | | performed at [facility], [address] | g/dL | LAB | | | | [address], | | | | | | [place] [address] | | | | + + + + + + | Hematocrit, | 44.3Comment: Testing | 34.0 - 46.0 % | EXTERNAL | | | POC | performed at [facility], [address] | | LAB | | | | [address], | | | | | | [place] [address] | | | | + + + + + + | MCV | 90.4Comment: Testing | 80.0 - 100.0 fl | EXTERNAL | | | | performed at [facility], [address] | | LAB | | | | [address], | | | | | | [place] [address] | | | | + + + + + + | MCH | 30.1Comment: Testing | 27.0 - 34.0 pg | EXTERNAL | | | | performed at [facility], [address] | | LAB | | | | [address], | | | | | | [place] [address] | | | | + + + + + + | MCHC | 33.4Comment: Testing | 32.0 - 35.5 | EXTERNAL | | | | performed at [facility], [address] | g/dL | LAB | | | | [address], | | | | | | [place] [address] | | | | + + + + + + | RDW-CV | 45.1Comment: Testing | 37 - 53 fl | EXTERNAL | | | | performed at [facility], [address] | | LAB | | | | [address], | | | | | | [place] [address] | | | | + + + + + + | Platelet | 241Comment: Testing | 150 - 400 K/uL | EXTERNAL | | | Count | performed at [facility], [address] | | LAB | | | Plasma | [address], | | | | | | [place] [address] | | | | + + + + + + | MPV | 9.1Comment: Testing | fl | EXTERNAL | | | | performed at [facility], [address] | | LAB | | | | [address], | | | | | | [place] [address] | | | | + + + + + + | Differentia | AUTOMATEDComment: | | EXTERNAL | | | l Type | Testing performed at | | LAB | | | | [facility], [address] | | | | | | [place] | | | | | | [address] | | | | + + + + + + | % Segmented | 50.94Comment: Testing | % | EXTERNAL | | | | performed at [facility], [address] | | LAB | | | Neutrophils | [place], | | | | | | [place] [address] | | | | + + + + + + | % | 37.56Comment: Testing | % | EXTERNAL | | | Lymphocytes | performed at [facility], [address] | | LAB | | | | [place], | | | | | | [place] [address] | | | | + + + + + + | % Monocytes | 8.47Comment: Testing | % | EXTERNAL | | | | performed at [facility], [address] | | LAB | | | | [address], | | | | | | [place] [address] | | | | + + + + + + | % | 2.51Comment: Testing | % | EXTERNAL | | | Eosinophils | performed at [facility], [address] | | LAB | | | | [address], | | | | | | [place] [address] | | | | + + + + + + | % Basophils | 0.52Comment: Testing | % | EXTERNAL | | | | performed at [facility], [address] | | LAB | | | | [address], | | | | | | [place] [address] | | | | + + + + + + | Absolute | 5.26Comment: Testing | 1.90 - 7.40 | EXTERNAL | | | Segmented | performed at [facility], [address] | K/uL | LAB | | | Neutrophils | [address], | | | | | | [place] [address] | | | | + + + + + + | Absolute | 3.88Comment: Testing | 1.00 - 3.90 | EXTERNAL | | | Lymphocytes | performed at [facility], [address] | K/uL | LAB | | | | [place], | | | | | | [place] [address] | | | | + + + + + + | Absolute | 0.88 (H)Comment: Testing | 0.00 - 0.80 | EXTERNAL | | | Monocytes | performed at [facility], [address] | [address] | LAB | | | | [address], | | | | | | [place] [address] | | | | + + + + + + | Absolute | 0.26Comment: Testing | 0.00 - 0.50 | EXTERNAL | | | Eosinophils | performed at [facility], [address] | K/uL | LAB | | | | [address], | | | | | | [place] [address] | | | | + + + + + + | Absolute | 0.05Comment: Testing | 0.00 - 0.10 | EXTERNAL | | | Basophils | performed at [facility], [address] | K/uL | LAB | | | | [address], | | | | | | [place] [address] | | | | + + + + + + + + | Specimen | + + | Blood specimen | | (specimen) | + + + +---------+ + + | Performing | Address | City/State/Zipcode | Phone Number | | Organization | | | | + +---------+ + + | EXTERNAL LAB | | | | + +---------+ + + TSH (05/04/2015 6:07 AM PST) + + + + + + | Component | Value | Ref Range | Performed | Pathologist | | | | | At | Signature | + + + + + + | TSH | 1.44Comment: Testing | 0.45 - 5.10 | EXTERNAL | | | | performed at [facility], [address] | uIU/mL | LAB | | | | [place], | | | | | | [place] [address] | | | | + + + + + + + + | Specimen | + + | Blood specimen | | (specimen) | + + + +---------+ + + | Performing | Address | City/State/Zipcode | Phone Number | | Organization | | | | + +---------+ + + | EXTERNAL LAB | | | | + +---------+ + + Phosphorus (05/04/2015 6:07 AM PST) + + + + + + | Component | Value | Ref Range | Performed | Pathologist | | | | | At | Signature | + + + + + + | PHOSPHORUS | 3.7Comment: Testing | 2.3 - 4.8 mg/dL | EXTERNAL | | | | performed at [facility], [address] | | LAB | | | | [place], | | | | | | [place] [address] | | | | + + + + + + + + | Specimen | + + | Blood specimen | | (specimen) | + + + +---------+ + + | Performing | Address | City/State/Zipcode | Phone Number | | Organization | | | | + +---------+ + + | EXTERNAL LAB | | | | + +---------+ + + Magnesium (05/04/2015 6:07 AM PST) + + + + + + | Component | Value | Ref Range | Performed | Pathologist | | | | | At | Signature | + + + + + + | Magnesium | 1.7Comment: Testing | 1.7 - 2.4 mg/dL | EXTERNAL | | | | performed at [facility], [address] | | LAB | | | | [place], | | | | | | [place] [address] | | | | + + + + + + + + | Specimen | + + | Blood specimen | | (specimen) | + + + +---------+ + + | Performing | Address | City/State/Zipcode | Phone Number | | Organization | | | | + +---------+ + + | EXTERNAL LAB | | | | + +---------+ + + Hemoglobin A1C (05/04/2015 6:07 AM PST) + + + + + + | Component | Value | Ref Range | Performed | Pathologist | | | | | At | Signature | + + + + + + | Hemoglobin | 11.5 (H)Comment: The | 4.0 - 6.0 % | EXTERNAL | | | A1c | [employer] | | LAB | | | | Association considers a | | | | | | hemoglobin A1c result of | | | | | | <7.0% to be the goal of | | | | | | diabetic therapy. | | | | | | When results are | | | | | | consistently >8.0%, the | | | | | | ADA suggests | | | | | | reevaluation of the | | | | | | treatment regimen. The | | | | | | testing method used is | | | | | | certified traceable to | | | | | | the Diabetes Control and | | | | | | Complications Trial | | | | | | reference method.Testing | | | | | | performed at [facility], [address] | | | [address] [facility], | | | | | | [place] [address] | | | | + + + + + + | Glycohemogl | 283Comment: The ADA | mg/dL | EXTERNAL | | | obin | considers an eAG result | | LAB | | | (GHb),Total | of LT 154 mg/dL to be | | | | | | the goal of diabetic | | | | | | therapy. Estimated | | | | | | Average Glucose | | | | | | calculated from | | | | | | hemoglobin A1c by use of | | | | | | the ADA recommended | | | | | | formula.Testing | | | | | | performed at [facility], [address] | | | | | | [address], | | | | | | [place] [address] | | | | + + + + + + + + | Specimen | + + | Blood specimen | | (specimen) | + + + +---------+ + + | Performing | Address | City/State/Zipcode | Phone Number | | Organization | | | | + +---------+ + + | EXTERNAL LAB | | | | + +---------+ + + Lipid Panel (05/04/2015 6:07 AM PST) + + + + + + | Component | Value | Ref Range | Performed | Pathologist | | | | | At | Signature | + + + + + + | Cholesterol | 229 (H)Comment: Testing | mg/dL | EXTERNAL | | | | performed at [facility], [address] | | LAB | | | | [address], | | | | | | [place] [address] | | | | + + + + + + | Triglycerid | 955 (H)Comment: Testing | mg/dL | EXTERNAL | | | es | performed at [facility], [address] | | LAB | | | | [address], | | | | | | [place] [address] | | | | + + + + + + | HDL | 30 (L)Comment: Testing | mg/dL | EXTERNAL | | | | performed at [facility], [address] | | LAB | | | | [address], | | | | | | [place] [address] | | | | + + + + + + | LDL, | LDL NOT VALID WHEN TRIG | mg/dL | EXTERNAL | | | Calculated | >400 mg/dLComment: | | LAB | | | | Testing performed at | | | | | | [facility], [address] | | | | | | [place] | | | | | | [address] | | | | + + + [...] + +---------+ + + Comprehensive Metabolic Panel (05/04/2015 6:07 AM PST) + + + + + + | Component | Value | Ref Range | Performed | Pathologist | | | | | At | Signature | + + + + + + | Na | 133 (L)Comment: Testing | 135 - 143 | EXTERNAL | | | | performed at [facility], [address] | mmol/L | LAB | | | | [address], | | | | | | [place] [address] | | | | + + + + + + | K | 4.1Comment: Testing | 3.5 - 4.9 | EXTERNAL | | | | performed at [facility], [address] | mmol/L | LAB | | | | [place] [place], | | | | | | [place] [address] | | | | + + + + + + | Cl | 102Comment: Testing | 99 - 109 mmol/L | EXTERNAL | | | | performed at [facility], [address] | | LAB | | | | [address], | | | | | | [place] [address] | | | | + + + + + + | CO2 | 22 (L)Comment: Testing | 23 - 32 mmol/L | EXTERNAL | | | | performed at [facility], [address] | | LAB | | | | [address], | | | | | | [place] [address] | | | | + + + + + + | Anion Gap | 13Comment: Testing | 5 - 20 mmol/L | EXTERNAL | | | | performed at [facility], [address] | | LAB | | | | [address], | | | | | | [place] [address] | | | | + + + + + + | Glucose, | 202 (H)Comment: Testing | 65 - 99 mg/dL | EXTERNAL | | | Fasting | performed at [facility], [address] | | LAB | | | | [address], | | | | | | [place] [address] | | | | + + + + + + | BUN | 13Comment: Testing | 8 - 25 mg/dL | EXTERNAL | | | | performed at [facility], [address] | | LAB | | | | [address], | | | | | | [place] [address] | | | | + + + + + + | Creatinine | 0.50Comment: Testing | 0.50 - 1.00 | EXTERNAL | | | | performed at [facility], [address] | mg/dL | LAB | | | | [address], | | | | | | [place] [address] | | | | + + + + + + | BUN/Creatin | 26Comment: Testing | | EXTERNAL | | | ine Ratio | performed at [facility], [address] | | LAB | | | | [address], | | | | | | [place] [address] | | | | + + + + + + | Calcium | 9.0Comment: Testing | 8.5 - 10.5 | EXTERNAL | | | | performed at [facility], [address] | mg/dL | LAB | | | | [address], | | | | | | [place] [address] | | | | + + + + + + | Protein, | 6.7Comment: Testing | 6.3 - 8.2 g/dL | EXTERNAL | | | Total | performed at [facility], [address] | | LAB | | | | [address], | | | | | | [place] [address] | | | | + + + + + + | Albumin | 3.3 (L)Comment: Testing | 3.6 - 5.0 g/dL | EXTERNAL | | | | performed at [facility], [address] | | LAB | | | | [address], | | | | | | [place] [address] | | | | + + + + + + | Globulin | 3.4Comment: Testing | 1.3 - 4.9 g/dL | EXTERNAL | | | | performed at [facility], [address] | | LAB | | | | [address], | | | | | | [place] [address] | | | | + + + + + + | A/G Ratio | 1.0Comment: Testing | 1.0 - 2.4 | EXTERNAL | | | | performed at [facility], [address] | | LAB | | | | [address], | | | | | | [place] [address] | | | | + + + + + + | Bilirubin | 0.2Comment: Testing | 0.1 - 1.5 mg/dL | EXTERNAL | | | Total | performed at [facility], [address] | | LAB | | | [address], | | | | | | [place] [address] | | | | + + + + + + | ALP, | 86Comment: Testing | 35 - 115 U/L | EXTERNAL | | | External | performed at [facility], [address] | | LAB | | | | [address], | | | | | | [place] [address] | | | | + + + + + + | AST | 17Comment: Testing | 10 - 45 U/L | EXTERNAL | | | | performed at [facility], [address] | | LAB | | | | [address], | | | | | | [place] [address] | | | | + + + + + + | ALT | 18Comment: Testing | 10 - 65 U/L | EXTERNAL | | | | performed at [facility], [address] | | LAB | | | | [address], | | | | | | [place] [address] | | | | + + + [...] | | | | | | at [facility], [address] | | | | | | [address], | | | | | | [place] [address] | | | | + + + + + + + + | Specimen | + + | Blood specimen | | (specimen) | + + + +---------+ + + | Performing | Address | City/State/Zipcode | Phone Number | | Organization | | | | + +---------+ + + | EXTERNAL LAB | | | | + +---------+ + + POC Glucose (05/04/2015 5:50 AM PST) + + + + + + | Component | Value | Ref Range | Performed | Pathologist | | | | | At | Signature | + + + + + + | Glucose, | 173 (H)Comment: Testing | 65 - 99 mg/dL | EXTERNAL | | | Fingerstick | performed at [facility] | | LAB | | | | [address];[place], [place] | | | | | | [address] | | | | + + + + + + + + | Specimen | + + | | + + + +---------+ + + | Performing | Address | City/State/Zipcode | Phone Number | | Organization | | | | + +---------+ + + | EXTERNAL LAB | | | | + +---------+ + + ECG 12 lead (05/03/2015 10:34 PM PST) + + + + + + | Component | Value | Ref Range | Performed | Pathologist | | | | | At | Signature | + + + + + + | DIAGNOSIS: | Sinus | | EXTERNAL | | | | tachycardiaPossible Left | | LAB | | | | atrial | | | | | | enlargementPossible | | | | | | Inferior infarct , age | | | | | | undeterminedCannot rule | | | | | | out Anterior infarct , | | | | | | age undeterminedAbnormal | | | | | | ECGNo previous ECGs | | | | | | availableConfirmed by | | | | | | ABEL BULLARD ([id number]) on | | | | | | 05/04/2015 9:34:01 AM | | | | + + + + + + + + | Specimen | + + | | + + + + + | Narrative | Performed At | + + + | Historically converted procedure from [facility] Epic environment | EXTERNAL LAB | + + + + +---------+ + + | Performing | Address | City/State/Zipcode | Phone Number | | Organization | | | | + +---------+ + + | EXTERNAL LAB | | | | + +---------+ + + POC Glucose (05/03/2015 9:42 PM PST) + + + + + + | Component | Value | Ref Range | Performed | Pathologist | | | | | At | Signature | + + + + + + | Glucose, | 268 (H)Comment: Testing | 65 - 99 mg/dL | EXTERNAL | | | Fingerstick | performed at [facility] | | LAB | | | | [address];[place] | | | | | | [address] | | | | + + + + + + + + | Specimen | + + | | + + + +---------+ + + | Performing | Address | City/State/Zipcode | Phone Number | | Organization | | | | + +---------+ + + | EXTERNAL LAB | | | | + +---------+ + + CK-MB (05/03/2015 8:25 PM PST) + + + + + -+ | Component | Value | Ref Range | Performed | Pathologist | | | | | At | Signature | + + + + + -+ | CK-MB | 0.9Comment: Testing | 0.5 - 3.6 ng/mL | EXTERNAL | | | | performed at [facility] | | LAB | | | | [address];[place] | | | | | | [address] | | | | + + + + + -+ | CK-MB Index | 3.2Comment: CK INDEX | | EXTERNAL | | | | INTERPRETATION: | | LAB | | | | MMB ng/mL | | | | | | | | | | | |CK INDEX INTERPRETATION: | | | | | | MMB ng/mL | | | | | | | | | | + + + + + -+ + + | Specimen | + + | | + + + +---------+ + + | Performing | Address | City/State/Zipcode | Phone Number | | Organization | | | | + +---------+ + + | EXTERNAL LAB | | | | + +---------+ + + Troponin I (05/03/2015 8:25 PM PST) + + + + + + | Component | Value | Ref Range | Performed | Pathologist | | | | | At | Signature | + + + + + + | Troponin I, | <0.02Comment: 0.00 to | 0.00 - 0.10 | EXTERNAL | | | Qual | 0.10 CONSISTENT WITH | ng/mL | LAB | | | | NORMAL POPULATION0.11 to | | | | | | 0.60 CONSISTENT WITH | | | | | | INCREASED RISK FOR | | | | | | ADVERSE OUTCOMES> 0.60 | | | | | | CONSISTENT | | | | | | WITH WHO CRITERIA FOR | | | | | | ACUTE IA Testing | | | | | | performed at [facility] | | | | | | [facility];[place], [place] | | | | | | [address] | | | | + + + + + + + + | Specimen | + + | Blood specimen | | (specimen) | + + + +---------+ + + | Performing | Address | City/State/Zipcode | Phone Number | | Organization | | | | + +---------+ + + | EXTERNAL LAB | | | | + +---------+ + + CK Total (05/03/2015 8:25 PM PST) + + + + + + | Component | Value | Ref Range | Performed | Pathologist | | | | | At | Signature | + + + + + + | CK, Total | 28 (L)Comment: Testing | 30 - 240 U/L | EXTERNAL | | | | performed at [facility];[address] | | LAB | | | | [address];[place], [place] | | | | | | [address] | | | | + + + + + + + + | Specimen | + + | Blood specimen | | (specimen) | + + + +---------+ + + | Performing | Address | City/State/Zipcode | Phone Number | | Organization | | | | + +---------+ + + | EXTERNAL LAB | | | | + +---------+ + + CK-MB (05/03/2015 5:04 PM PST) + + + + + -+ | Component | Value | Ref Range | Performed | Pathologist | | | | | At | Signature | + + + + + -+ | CK-MB | 0.7Comment: Testing | 0.5 - 3.6 ng/mL | EXTERNAL | | | | performed at [facility];[address] | | LAB | | | | [address];[place], [place] | | | | | | [address] | | | | + + + + + -+ | CK-MB Index | 3.2Comment: CK INDEX | | EXTERNAL | | | | INTERPRETATION: | | LAB | | | | MMB ng/mL | | | | | | | | | | | |CK INDEX INTERPRETATION: | | | | | | MMB ng/mL | | | | | | | | | | + + + + + -+ + + | Specimen | + + | | + + + +---------+ + + | Performing | Address | City/State/Zipcode | Phone Number | | Organization | | | | + +---------+ + + | EXTERNAL LAB | | | | + +---------+ + + Troponin I (05/03/2015 5:04 PM PST) + + + + + + | Component | Value | Ref Range | Performed | Pathologist | | | | | At | Signature | + + + + + + | Troponin I, | <0.020Comment: 0.00 to | 0.00 - 0.10 | EXTERNAL | | | Qual | 0.10 CONSISTENT WITH | ng/mL | LAB | | | | NORMAL POPULATION0.11 | | | | | | to 0.60 CONSISTENT | | | | | | WITH INCREASED RISK FOR | | | | | | ADVERSE OUTCOMES> 0.60 | | | | | | CONSISTENT | | | | | | WITH WHO CRITERIA FOR | | | | | | ACUTE IA Testing | | | | | | performed at [facility];[address] | | | | | | [address];[place] | | | | | | [address] | | | | + + + + + + + + | Specimen | + + | Blood specimen | | (specimen) | + + + +---------+ + + | Performing | Address | City/State/Zipcode | Phone Number | | Organization | | | | + +---------+ + + | EXTERNAL LAB | | | | + +---------+ + + CK Total (05/03/2015 5:04 PM PST) + + + + + + | Component | Value | Ref Range | Performed | Pathologist | | | | | At | Signature | + + + + + + | CK, Total | 22 (L)Comment: Testing | 30 - 240 U/L | EXTERNAL | | | | performed at [facility];[address] | | LAB | | | | [address];[place], [place] | | | | | | [address] | | | | + + + + + + + + | Specimen | + + | Blood specimen | | (specimen) | + + + +---------+ + + | Performing | Address | City/State/Zipcode | Phone Number | | Organization | | | | + +---------+ + + | EXTERNAL LAB | | | | + +---------+ + + POC Glucose (05/03/2015 4:55 PM PST) + + + + + + | Component | Value | Ref Range | Performed | Pathologist | | | | | At | Signature | + + + + + + | Glucose, | 154 (H)Comment: Testing | 65 - 99 mg/dL | EXTERNAL | | | Fingerstick | performed at [facility];[address] | | LAB | | | | [address];[place] | | | | | | [address] | | | | + + + [...] + | Diagnosis | + + | Hyperlipidemia Other and unspecified hyperlipidemia | + + | Hypertriglyceridemia Pure hyperglyceridemia | + + | Precordial pain | + + | 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
--- OUTSIDE RECORDS SUMMARY | ~2019-10-16 | XMS | Encounter Summary ---
Demographics + + + | Address | [address] | | | [place] [address] | + + + | Home Phone [...] #[place] | | | | | [address] | | + + + + + | Bebe Terrazas | ECON | Unknown | Unavailable | + + + + + | Arden Terrazas | ECON | Unknown | | + + + + + Care Team Providers + +------+ + | Care Cable Mock Up Assembler Name | Role | Phone | + +------+ + | Yuriy Cardenas PA-C | PCP | | + +------+ + Encounter Details +--------+ + + + + | Date | Type | Department | Care Team | Description | +--------+ + + + + | 12/26/ | Pharmacy | Outpatient Retail | | | | 2012 | Visit | [facility] | | | | | | [address] | | | | | | [address] [place], [place] | | | | | | [address] | | | | | | [phone] | | | +--------+ + + + [...]
--- OUTSIDE RECORDS SUMMARY | ~2019-10-16 | XMS | Encounter Summary ---
Demographics + + + | Address | [address] | | | [place] [address] | + + + | Home Phone | | + + + | Preferred Language | Unknown | + + + | Marital Status | | + + + | Adventist Affiliation | PRE | + + + | Race | White | + + + | Ethnic Group | Not or | + + + Author + + + | Author | [facility] | + + + | Organization | [facility] | + + + | Address [...] #[address] | | | | | [address] | | + + + + + | Bebe Terrazas | ECON | Unknown | Unavailable | + + + + + | Arden Terrazas | ECON | Unknown | | + + + + + Care Team Providers + +------+ + | Care Reconditioner Name | Role | Phone | + +------+ + | Yuriy Cardenas PA-C | PCP | | + +------+ + Encounter Details +--------+ + + + + | Date | Type | Department | Care Team | Description | +--------+ + + + + | 06/21/ | MyChart | [facility] Primary Care | Yuriy Cardenas, | Question | | 2019 | Encounter | at [place] [address] | PA-C [address] | | | | [address] | [address] | | | | | [place], [place] | [place], [place] | | | | | [address] | [address] | | | | | [phone] | [phone] | | | | | | | [...]
--- OUTSIDE RECORDS SUMMARY | ~2019-10-16 | XMS | Encounter Summary ---
Demographics + + + | Address | [address] | | | [place] [address] | + + + | Home Phone [...] #[place] | | | | | [address] | | + + + + + | Bebe Terrazas | ECON | Unknown | Unavailable | + + + + + | Arden Terrazas | ECON | Unknown | | + + + + + Care Team Providers + +------+ + | Care Flight Operations Manager Name | Role | Phone | [...] Closed | | Radiology | Diagnoses | Bull[place]c, | Zzrad Vasc | | | | | Leg | Annita Rojo, | Lab [address] | | | | | swelling | [address] | [address] | | | | | Procedures | [address] | Loop | | | | | VASC LAB | [place], [place] | Mailcode: | | | | | VENOUS | [address] | [address] | | | | | DUPLEX LOWER | Phone: | Physician's | | | | | EXTREMITY | [phone] | Pavilion | | | | | BILAT COMP | Fax: | [place], [place] | | | | | | [phone] | [address] | | | | | | | Phone: | | | | | | | [phone] | | | | | | | Fax: | | | | | | | [phone] | +--------+--------+ + + + + Reason for Visit Diagnostic Testing (Routine) +--------+--------+ + + + + | Status | Reason | Specialty | Diagnoses / | Referred By | Referred To | | | | | Procedures | Contact | Contact | +--------+--------+ + + + + | Closed | | Radiology | Diagnoses | Bullock, | Viridianazrad Vasc | | | | | Leg | Annita Rojo, | Lab [address] | | | | | swelling | [address] | [address] | | | | | Procedures | [address] | Loop | | | | | VASC LAB | [facility] [place] | Mailcode: | | | | | VENOUS | [address] | [address] | | | | | DUPLEX LOWER | Phone: | Physician's | | | | | EXTREMITY | [phone] | Pavilion | | | | | BILAT COMP | Fax: | [place], [place] | | | | | | [phone] | [address] | | | | | | | Phone: | | | | | | | [phone] | | | | | | | Fax: | | | | | | | [phone] | +--------+--------+ + + + + Encounter Details +--------+ + + + + | Date | Type | Department | Care Team | Description | +--------+ + + + + | 01/07/ | Hospital | Diagnostic | | | | 2012 | Encounter | Radiology at [facility] | | | | | | [address] | | | | | | Loop Mailcode: | | | | | | [address] Physician's | | | | | | [address] [place], | | | | | | [place] [address] | | | | | | [phone] | | | +--------+ + + + [...] | VASC LAB VENOUS | Routin | 01/07/2013 | Leg swelling | Results for this | | DUPLEX LOWER | e | 2:06 PM | | procedure are in the | | EXTREMITY BILAT COMP | | PST | | results section. | + +--------+ + + + documented in this encounter Results VASC LAB VENOUS DUPLEX LOWER EXTREMITY BILAT COMP (01/07/2013 2:06 PM PST) + + + + + + | Component | Value | Ref Range | Performed | Pathologist | | | | | At | Signature | + + + + + + | VASC LAB | LOWER EXTREMITY VENOUS | | | | | VENOUS | STUDY: 01/07/2013 | | | | | DUPLEX | Dictated 01/07/2013 | | | | | LOWER | INDICATION: Edema. The | | | | | EXTREMITY | duplex scanner was used | | | | | BILATERAL | to examine the deep and | | | | | COMPLETE | superficial veins of | | | | | | boththe right and left | | | | | | lower extremities. All | | | | | | vessels were patent | | | | | | with normalflows and | | | | | | response to augmentation | | | | | | and compression | | | | | | maneuvers and no | | | | | | thrombuswas visualized. | | | | | | IMPRESSION: Normal | | | | | | venous examination with | | | | | | no evidence for venous | | | | | | thrombosis. END | | | | | | IMPRESSION Attending | | | | | | Radiologists: ,Author: | | | | | | LISA CHATTERJEE MD I | | | | | | have personally viewed | | | | | | this procedure/exam, | | | | | | reviewed this report, | | | | | | and madechanges to it | | | | | | where appropriate. | | | | | | Final/Electronically | | | | | | signed / LISA | | | | | | SHENA Preliminary / | | | | | | Maryann Martini | | | | | | | | | | | | | | | | + + + + + + + + | Specimen | + + | | + + + +---------+ + + | Performing | Address | City/State/Zipcode | Phone Number | | Organization | | | | + +---------+ + + | [facility] DEPARTMENT OF | | | | | RADIOLOGY | | | | + +---------+ + + documented in this encounter Visit Diagnoses + + | Diagnosis | + + | Leg swelling Swelling of limb | + + documented in this encounter"
--- OUTSIDE RECORDS SUMMARY | ~2019-10-16 | XMS | Encounter Summary ---
Demographics + + + | Address | [address] | | | [place] [address] | + + + | Home Phone | | + + + | Preferred Language | Unknown | + + + | Marital Status | | + + + | Church Affiliation | PRE | + + + [...] #[place] | | | | | [address] | | + + + + + | Bebe Terrazas | ECON | Unknown | Unavailable | + + + + + | Arden Terrazas | ECON | Unknown | | + + + + + Care Team Providers + +------+ + | Care Electrolytic Etcher Name | Role | Phone | + [...] | Radiology | Diagnoses | Bullock, | Zzrad Vasc | | | | | Leg | Annita Rojo, | Lab [address] | | | | | swelling | [address] | [address] | | | | | Procedures | [address] | Loop | | | | | VASC LAB | [place], [place] | Mailcode: | | | | | VENOUS | [address] | [address] | | | | | DUPLEX LOWER | Phone: | Physician's | | | | | EXTREMITY | [phone] | Pavilion | | | | | BILAT COMP | Fax: | [place], [place] | | | | | | [phone] | [address] | | | | | | | Phone: | | | | | | | [phone] | | | | | | | Fax: | | | | | | | [phone] | +--------+--------+ + + + + Reason [...] | | | | VASC LAB | [facility] [place] | Mailcode: | | | | | VENOUS | [address] | [address] | | | | | DUPLEX LOWER | Phone: | Physician's | | | | | EXTREMITY | [phone] | Pavilion | | | | | BILAT COMP | Fax: | [place], [place] | | | | | | [phone] | [address] | | | | | | | Phone: | | | | | | | [phone] | | | | | | | Fax: | | | | | | | [phone] | +--------+--------+ + + + + Encounter [...] | | | | | | [address] [place], | | | | | | [place] [address] | | | | | | [phone] | | | +--------+ + + + [...] | | + +---------+ + + | [facility] DEPARTMENT OF | | | | | RADIOLOGY | | | | + +---------+ + + documented in this encounter Visit Diagnoses + + | Diagnosis | + + | Leg swelling Swelling of limb | + + documented in this encounter"
--- OUTSIDE RECORDS SUMMARY | ~2019-10-16 | XMS | Encounter Summary ---
Demographics + + + | Address | [address] | | | [place] [address] | + + + | Home Phone [...] [address] | Unavailable | | | | #[place], [place] | | | | | [address] | | + + + + + | Bebe Terrazas | ECON | Unknown | Unavailable | + + + + + | Arden Hammondi | ECON | Unknown | | + + + + + Care Team Providers + +------+ + | Care Patient Information Coordinator Name | Role | Phone | + +------+ + | Yuriy Cardenas PA-C | PCP | | + +------+ + Encounter Details +--------+--------+ + + + | Date | Type | Department | Care Team | Description | +--------+--------+ + + + | 12/23/ | Travel | | | | | [...]
--- OUTSIDE RECORDS SUMMARY | ~2019-10-16 | XMS | Encounter Summary ---
Demographics + + + | Address | [address] | | | [place] [address] | + + + | Home Phone [...] #[place] | | | | | [address] | | + + + + + | Bebe Terrazas | ECON | Unknown | Unavailable | + + + + + | Arden Terrazas | ECON | Unknown | | + + + + + Care Team Providers + +------+ + | Care Production Control Coordinator Name | Role | Phone | + +------+ + | Yuriy Cardenas PA-C | PCP | | + +------+ + Reason for Visit + + + | Reason | Comments | + + + | Prior Authorization | Morphine SR 10 mg capsule | | Request - Medication | | + + + Encounter Details +--------+ + + + + | Date | Type | Department | Care Team | Description | +--------+ + + + + | 05/11/ | Telephone | [facility] Primary Care | Yuriy Cardenas, | Prior Authorization | | 2019 | | at [place] [address] | [place] [address] | Request - Medication | | | | [address] | [facility] | (Morphine SR 10 mg | | | | [address], [place] | [place], [place] | capsule) | | | | [address] | [address] | | | | | [phone] | [phone] | | | | | | | [...]
--- OUTSIDE RECORDS SUMMARY | ~2019-10-16 | XMS | Encounter Summary ---
Demographics + + + | Address | [address] | | | [place] [address] | + + + | Home Phone [...] #[place] | | | | | [address] | | + + + + + | Bebe Terrazas | ECON | Unknown | Unavailable | + + + + + | Arden Terrazas | ECON | Unknown | | + + + + + Care Team Providers + +------+ + | Care Digital Media Coordinator Name | Role | Phone | + +------+ + | Yuriy Cardenas PA-C | PCP | | + +------+ + Encounter Details +--------+ + + + + | Date | Type | Department | Care Team | Description | +--------+ + + + + | 05/17/ | Lab | [facility] Family | Adam Mccrary, | | | 2017 | Requisition | Medicine Lab at | ,[facility] [address] | | | | | [place] [address] [address] | | | | | [address] | [place], [place] | | | | | [place], [place] | [address] | | | | | [address] | [phone] | | | | | [phone] | | | +--------+ + + + [...] (HCC) | | | | | | 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
--- OUTSIDE RECORDS SUMMARY | ~2019-10-16 | XMS | Encounter Summary ---
Demographics + + + | Address | [address] | | | [place] [address] | + + + | Home Phone [...] #[place] | | | | | [address] | | + + + + + | Bebe Terrazas | ECON | Unknown | Unavailable | + + + + + | Arden Terrazas | ECON | Unknown | | + + + + + Care Team Providers + +------+ + | Care Acute Care Assistant Name | Role | Phone | + +------+ + | Yuriy Cardenas PA-C | PCP | | + +------+ + Encounter Details +--------+--------+ + + + | Date | Type | Department | Care Team | Description | +--------+--------+ + + + | 05/07/ | Refill | [facility] Primary [facility] | Yuriy Cardenas, | | | 2018 | | at [place] [address] | PA-C [address] | | | | [address] | [address] | | | | | [facility] [place], [place] | [place], [place] | | | | | [address] | [address] | | | | | [phone] | [phone] | | | | | | | [...]
--- OUTSIDE RECORDS SUMMARY | ~2019-10-16 | XMS | Encounter Summary ---
Demographics + + + | Address | [address] | | | [place] [address] | + + + | Home Phone | | + + + | Preferred Language | Unknown | + + + | Marital Status | | + + + | Denominational Affiliation | 1013 | + + + | Race | Unknown | + + + | Ethnic Group | Unknown | + + + Author + + + | Author | [facility] | | | and [place] | + + + | Organization | [facility] | | | and [place] | + + + | Address | Unknown | + + + | Phone | Unavailable | + + + Support + + + + + | Name | Relationship | Address | Phone | + + + + + | Dustin Terrazas | ECON | [place] | | | | | [address] | | + + + + + | Bebe Terrazas | ECON | [address] | | | | [place], [place] | | | | | [address] | | + + + + + Care Team Providers + +------+ + | Care Emergency Veterinary Technician Name | Role | Phone | [...] + + | 12/17/ | Refill | [facility] | Pilo Ocampo | Medication Refill | | 2019 | | CARDIOLOGY [facility] | MD Yannick [address] | | | | | [address] | [address] [place], [place] | | | | | [place], [place] | [address] | | | | | [address] | | | | | | [phone] | | | +--------+--------+ + + + Social History + +-------+ [...]
--- OUTSIDE RECORDS SUMMARY | ~2019-10-16 | XMS | Encounter Summary ---
Demographics + + + | Address | [address] | | | [place] [address] | + + + | Home Phone [...] #[place] | | | | | [address] | | + + + + + | Bebe Terrazas | ECON | Unknown | Unavailable | + + + + + | Arden Terrazas | ECON | Unknown | | + + + + + Care Team Providers + +------+ + | Care Operational Meteorologist Name | Role | Phone | + [...] | | | | | subcutaneous | [address] | | | | | | tissue | [address] | | | | | | Abnormal | Rd | | | | | | prominence | [place], | | | | | | of rib | [place] | | | | | | Procedures | [address] | | | | | | CT CHEST, | Phone: | | | | | | ABDOMEN AND | [phone] | | | | | | PELVIS W IV | Fax: | | | | | | CONTRAST CT | [phone] | | | | | | ABDOMEN AND | | | | | | | PELVIS W IV | | | | | | | CONTRAST | | | +--------+--------+ + + + + Encounter Details +--------+ + + + + | Date | Type | Department | Care Team | Description | +--------+ + + + + | 05/06/ | Ancillary | [facility] Primary Care | Yuriy Cardenas, | | | 2019 | Orders | at [place] [address] | PA-C [address] | | | | [address] | [address] | | | | | [facility] [place], [place] | [place], [place] | | | | | [address] | [address] | | | | | [phone] | [phone] | | | | | | | [...] the report as now presented. Final signature: Lior Castillo MD 07/08/2018 | | 9:06 AM [...]
--- OUTSIDE RECORDS SUMMARY | ~2019-10-16 | XMS | Encounter Summary ---
Demographics + + + | Address | [address] | | | [place] [address] | + + + | Home Phone | | + + + | Preferred Language | Unknown | + + + | Marital Status | | + + + | Yazdanism Affiliation | 1013 | + + + | Race | Unknown | + + + | Ethnic Group | Unknown | + + + Author + + + | Author | [facility] | | | and [place] | + + + | Organization | [facility] | | | and [place] | + + + | Address | Unknown | + + + | Phone | Unavailable | + + + Support + + + + + | Name | Relationship | Address | Phone | + + + + + | Dustin Terrazas | ECON | [place] | | | | | [address] | | + + + + + | Bebe Terrazas | ECON | [address] | | | | | [facility] [place] [place] | | | | | [address] | | + + + + + Care Team Providers + +------+ + | Care Ornamental Metal Fabricator Apprentice Name | Role | Phone | + +------+ + PCP | Unavailable | + +------+ + Encounter Details +--------+ + + + + | Date | Type | Department | Care Team | Description | +--------+ + + + + | 05/02/ | Hospital | [facility] | Conversion | Chest pain, | | 2016 | Encounter | CONVERSION [address] | Transaction, | unspecified chest | | | | [address] | Provider Unknown | pain type | | | | [place] | | | | | | [address] | (Fax) | | | | | [phone] | | | +--------+ + + + [...] XR CHEST 1 VIEW | Routin | 05/03/2015 | | Results for this | | | e | 2:20 PM | | procedure are in the | | | | PST | | results section. | + +--------+ + + + documented in this encounter Results XR Chest 1 Vw (05/03/2015 2:20 PM PST) + + | Specimen | [...] Ross Worley - 10/16/2018 3:35 PM PDT This is a non-reportable procedure | | without a radiologist report and isused for image storage only | + + documented in this encounter Visit Diagnoses + + | Diagnosis | + + | Chest pain, unspecified chest pain type | + + documented in this encounter"
--- OUTSIDE RECORDS SUMMARY | ~2019-10-16 | XMS | Encounter Summary ---
Demographics + + + | Address | [address] | | | [place] [address] | + + + | Home Phone | | + + + | Preferred Language | Unknown | + + + | Marital Status | | + + + | Uatsdin Affiliation | PRE | + + + [...] [id number] | | | | | [address] | | + + + + + | Bebe Terrazas | ECON | Unknown | Unavailable | + + + + + | Arden Terrazas | ECON | Unknown | | + + + + + Care Team Providers + +------+ + | Care Voltage Regulator Assembler Name | Role | Phone | [...] + + | 05/11/ | Telephone | [facility] | Yuriy Cardenas, | Prior Authorization | | 2019 | | at [place] [address] | [place] [address] | Request - Medication | | | | [address] | [facility] | (Morphine SR 10 mg | | | | [place], [place] | [place], [place] | capsule) | | | | [address] | [address] | | | | | [phone] | | | | | | | [...]
--- OUTSIDE RECORDS SUMMARY | ~2019-10-16 | XMS | Encounter Summary ---
Demographics + + + | Address | [address] | | | [place] [address] | + + + | Home Phone [...] [place] | | | | | [address] | | + + + + + | Bebe Terrazas | ECON | Unknown | Unavailable | + + + + + | Arden Terrazas | ECON | Unknown | | + + + + + Care Team Providers + +------+ + | Care Grant Specialist Name | Role | Phone | + +------+ + | Yuriy Cardenas PA-C | PCP | | + +------+ + Encounter Details +--------+ + + + + | Date | Type | Department | Care Team | Description | +--------+ + + + + | 06/04/ | MyChart | [facility] Primary [facility] | Yuriy Cardenas, | RE: Medication | | 2019 | Encounter | at [place] [address] | PA-C [address] | refills | | | | [address] | [address] | | | | | [place], [place] | [place], [place] | | | | | [address] | [address] | | | | | [phone] | | | | | | | [...]
--- OUTSIDE RECORDS SUMMARY | ~2019-10-16 | XMS | Encounter Summary ---
Demographics + + + | Address | [address] | | | [place] [address] | + + + | Home Phone | | + + + | Preferred Language | Unknown | + + + | Marital Status | | + + + | Religion Affiliation | PRE | + + + [...] [place] | | | | | [address] | | + + + + + | Bebezully Terrazas | ECON | Unknown | Unavailable | + + + + + | Ardenjostin Hammondi | ECON | Unknown | | + + + + + Care Team Providers + +------+ + | Care Tug Boat Captain Name | Role | Phone | + +------+ + | Zora Haddad DO | PCP | | + +------+ + Reason for Visit + + + | Reason | Comments | + + + | Hip pain | right | + + + | Procedure | | + + + PROC - Dept/Practice Procedure (Routine) +--------+--------+ + + + + | Status | Reason | Specialty | Diagnoses / | Referred By | Referred To | | | | | Procedures | Contact | Contact | +--------+--------+ + + + + | Closed | | Pain | Diagnoses | Kobe, | Jane, | | | | Management | Lumbar | Annita Rojo, | MD Yoselyn | | | | | post-laminec | [address] | [address] | | | | | chris | Jakob Kendall | Perez Noel | | | | | syndrome | [place], [place] | [address] [place], | | | | | Lumbar | [address] | [place] | | | | | radiculopath | Phone: | [phone] | | | | | y Disorder | [phone] | Phone: | | | | | of SI | Fax: | [phone] | | | | | (sacroiliac) | [phone] | Fax: | | | | | joint | | [phone] | | | | | Procedures | | | | | | | REQUEST TO | | | | | | | SURGERY | | | | | | | SUPERINTENDENT WAREHOUSE | | | | | | | LA INJ, | | | | | | | SACROILIAC | | | | | | | JOINT | | | | | | | W/IMAGE | | | | | | | GUIDE | | | | | | | INCLUDE | | | | | | | ARTHROGRAPHY | | | | | | | LA INJ | | | | | | | FOR | | | | | | | SACROILIAC | | | | | | | JT ANESTH | | | | | | | LA MD CS/SM | | | | | | | PHYS,5 YRS+ | | | | | | | LA MD CS/SM | | | | | [...] | +--------+ + + + + | 04/30/ | Procedure | [facility] | Yoselyn Sahu MD | Hip pain (right); | | 2013 | | [address] | [address] | Procedure | | | | [facility] | [address]ie [place], | | | | | and Healing, | [place] [address] | | | | | [facility] | [phone] | | | | | Floor [place], [place] | | | | | | [address] | | | | | | [phone] | | | +--------+ + + + [...] + + + | Blood Pressure | 142/88 | 04/30/2013 2:25 PM | | | | | PST | | + + + + + | Pulse | 110 | 04/30/2013 2:25 PM | | | | | PST | | + + + + + | Temperature | 36.8 C (98.3 F) | 04/30/2013 2:25 PM | | | | | PST | | + + + + + | Respiratory Rate | 20 | 04/30/2013 2:25 PM | | | | | PST | | + + + + + | Oxygen Saturation | 98% | 04/30/2013 2:25 PM | | | | | PST | | + + + + + | Inhaled Oxygen | - | - | | | Concentration | | | | + + + + + | Weight | 100.7 kg (222 lb) | 04/30/2013 2:25 PM | | | | | PST | | + + + + + | Height | 167.6 cm (5' 6") | 04/30/2013 2:25 PM | | | | | PST | | + + + + + | Body Mass Index | 35.83 | 04/30/2013 2:25 PM | | | | | PST | | + + + + + documented in this encounter Patient Instructions Patient Instructions Sj Batres MD - 04/30/2013 2:54 PM PSTFormatting of this note costa ht be different from the original. [facility] Patient Instructions - Post Interventional Procedure Date: 04/30/2013 Name: Nancy Terrazas Date of : 1970 Procedure Performed: right Sacroiliac joint injections Procedure Provider: YOSELYN SAHU MD If you have any problems you believe are associated with your procedure tonight, Please call the Hospital Forensic Manager, and ask for the Pain Management Consu ltant. If you have problems or questions between 9:00 am and 4:00 pm, Please call the [facility] Nurse Triage Line, . If you go to an Emergency Room, please bring this form with you. DISCHARGE INSTRUCTIONS The IV site may feel sore until tomorrow. If the site becomes hot, red swollen, or increas ingly painful, or if the skin breaks open, call the phone number listed above, and/or go to your family doctor or to an Emergency room. The IV site may feel sore until tomorrow. If the site becomes hot, red swollen, or increas ingly painful, or if the skin breaks open, call the phone number listed above, and/or go to your family doctor or to an Emergency room. The procedure site may be tender for a few days. Use ice packs and/or warm compresses to t he area as needed. You may bathe or shower. If the procedure site becomes red or swollen, or if the pain increases, please call the phone number listed above, and/or go to an Emergen cy Room. Activity Instructions: Please fill out your pain diary every 12 hours until you run out of paper. The area of your procedure may be numb or weak for several hours. You should not drive for 6 hours after the procedure. You may resume normal activities 12 hours after the procedure . Diet Instructions: Resume your regular diet. Medication Instructions: Resume all your regular medications. Follow-up in [facility] in 3-4 weeks. Instructions printed and reviewed with the patient. Copy of instructions given to the young ent. SJ BATRES MD Pain Medicine Fellow [facility] documented in this encounter Progress Notes Yoselyn Sahu MD - 05/02/2013 7:27 AM PSTI participated in the evaluation of this patient, and was present for the entire procedure. I edited the trainee's note. YOSELYN SAHU MD [facility] [place] [id number] [facility], 4th Floor Mail Code: [address] [address] Sj Pierre MD - 04/30 3:18 PM PSTPROVIDER OPERATIVE NOTE Date: April 30, 2013 Location: [facility] Procedure Room Nancy Terrazas [id number] :1970, presents to clinic for: PROCEDURE: Sacroiliac Joint injection LEVEL/LATERALITY: right PRE-OPERATIVE DIAGNOSIS: No diagnosis found. POST-OPERATIVE DIAGNOSIS: No diagnosis found. ATTENDING PHYSICIAN: YOSELYN SAHU MD REHABILITATION PROGRAM MANAGER: Fellow Sj Batres MD ANESTHESIA: sedation delivered by Zoey Norwood RN. Sedation is supervised by Yoselyn soni MD FINDINGS: Appropriate spread of contrast at the right sacroiliac joints without epidural o r vascular uptake. IV Fluids: None Estimated Blood Loss: Minimal Drains, Specimens, Complications: None INDICATIONS: Nancy Terrazas has a history of No diagnosis found. I reviewed the Registered Nurse's pre-sedation report and agree to the plan. The patient wa s deemed an appropriate candidate to undergo the planned procedure. ASA Physical Status 2. PROCEDURE IN DETAIL: Prior to the procedure, I had a PARQ discussion with Nancy Terrazas, and she gave writ ten consent for procedure and sedation. Ms. Terrazas was escorted to the [facility] Procedure Room, w here she was positioned Prone on the examination table. TEAM PAUSE: The physician-led pause was conducted, and is documented in the Nursing note. Monitors were placed, including ECG, NIBP and SpO2. The skin was prepared with Chloroprep and sterile drapes were applied. The C-arm was positioned in the AP and oblique plane with a slight cranio-caudal tilt (imag e intensifier toward the feet) at the level of the bottom 1/3 of the right SI joint. A 22 g 3 inch spinal needle was advanced under intermittent fluoroscopy until it entered the joint on the right. Omnipaque 240 was injected to verify non-intravascular distribution and confir m proper insertion of needle position. 3ml of a solution containing 2ml 0.5% Ropivacaine and 1 ml of Kenalog 40mg/ml was injected in each site. The needles were removed, and the patie nt was transported to the [facility] PACU. Images were saved and sent to [employer]. Ms. Terrazas was escorted to the PACU where she made an uneventful recovery. She will keep a pain diary to guide the next step in her treatment. Ms. Terrazas did note initial pain relief . YOSELYN SAHU MD was present for the entire procedure. SJ BATRES MD Pain Medicine Fellow [facility] Karma Patton RN - 04/30/2013 2:31 PM PST [employer] PRE-SEDATION: Date: April 30, 2013 Nancy Terrazas [id number] 1970 ALLERGIES: Codeine; Morphine; and Sulfa (sulfonamide antibiotics) Previous reaction to Sedation/Analgesia: no MEDICATIONS: Current Outpatient Prescriptions Medication ALBUTEROL INHL FLUoxetine 20 mg Oral capsule gabapentin 100 mg oral capsule gabapentin 300 mg Oral capsule lidocaine (LIDODERM) 5 %(700 mg/patch) topical adhesive patch,medicated losartan 25 mg Oral tablet metFORMIN 500 mg Oral tablet oxyCODONE, immediate release, 5 mg oral tablet tiZANidine 2 mg oral tablet No current facility-administered medications for this visit. Meets NPO Guidelines: yes For female patients of reproductive age: When was last menstrual period? Non-applicable If > 30 days, could the patient be ? no Would she like to have a test? No Nurse PRE-SEDATION: Date: April 30, 2013 Nancy Terrazas [id number] 1970 See [employer] Pre-Sedation Note. IV ACCESS: IV in Place IV Start Time 1430 22g RDH BASELINE VS: See Sedation Flow Sheet. Nancy Terrazas [id number] 1970, presents to clinic for: Procedure: Sacroiliac Joint injection PREVIOUS REACTION TO SEDATION/ANALGESIA: No SEDATION/ ANALGESIA PLAN: Moderate Sedation Meets NPO Guidelines: Yes ( NPO x> 6 hours from solids and/or > 3 hours from clear liquids) . Sedation Consent obtained: Yes Procedure Consent in chart: Yes ID Band in place: Yes H&P obtained: Yes Emergency equipment available per policy. 1445 Procedure started. 1446 Midazolam 2 mg IV 1447 Omnipaque 240 mg/ml 1ml Ropivacaine 0.5% 2ml Kenalog 40 mg/ml 1ml 1455 Procedure completed. Patient returned [facility] [place] [facility]. Patient is stable. IV d/c. documented in this en counter Plan of Treatment Not on filedocumented as of this encounter Procedures + +--------+ + + + | Procedure Name | Priori | Date/Time | Associated Diagnosis | Comments | | | ty | | | | + +--------+ + + + | LA ROPIVACAINE HCL | Routin | 04/30/2013 | Disorder of SI | | | INJ 0.5% | e | 3:21 PM | (sacroiliac) joint | | | | | PST | | | + +--------+ + + + | LA 10ML LOCM 200-299 | Routin | 04/30/2013 | Disorder of SI | | | MG/ML ICON | e | 3:21 PM | (sacroiliac) joint | | | | | PST | | | + +--------+ + + + | LA 10ML LOCM 200-299 | Routin | 04/30/2013 | Disorder of SI | | | MG/ML ICON | e | 3:21 PM | (sacroiliac) joint | | | | | PST | | | + +--------+ + + + | LA FLUOROSCOPIC | Routin | 04/30/2013 | Disorder of SI | | | GUIDANCE FOR NEEDLE | e | 3:20 PM | (sacroiliac) joint | | | PLACEMENT | | PST | | | + +--------+ + + + | LA INJ, SACROILIAC | Routin | 04/30/2013 | Disorder of SI | | | JOINT W/IMAGE GUIDE | e | 3:20 PM | (sacroiliac) joint | | | INCLUDE ARTHROGRAPHY | | PST | | | + +--------+ + + + documented in this encounter Visit Diagnoses + + | Diagnosis | + + | Disorder of SI (sacroiliac) joint - Primary Disorders of sacrum | + + documented in this encounter
--- OUTSIDE RECORDS SUMMARY | ~2019-10-16 | XMS | Encounter Summary ---
Demographics + + + | Address | [address] | | | [place] [address] | + + + | Home Phone [...] [place] | | | | | [address] | | + + + + + | Bebe Terrazas | ECON | Unknown | Unavailable | + + + + + | Arden Terrazas | ECON | Unknown | | + + + + + Care Team Providers + +------+ + | Care Residential Collections Name | Role | Phone | + +------+ + | Yuriy Cardenas PA-C | PCP | | + +------+ + Encounter Details +--------+ + + + + | Date | Type | Department | Care Team | Description | +--------+ + + + + | 10/15/ | MyChart | [facility] Primary [facility] | Yuriy Cardenas, | | | 2020 | Encounter | at [place] [address] | PA-C [address] | | | | | [address] | [address] | | | | | [place], [place] | [place], [place] | | | | | [address] | [address] | | | | | [phone] | [phone] | | | | | | | [...]
--- OUTSIDE RECORDS SUMMARY | ~2019-10-16 | XMS | Encounter Summary ---
Demographics + + + | Address | [address] | | | [place] [address] | + + + | Home Phone [...] [id number] [place] | | | | | [address] | | + + + + + | Bebe Terrazas | ECON | Unknown | Unavailable | + + + + + | Arden Nini | ECON | Unknown | | + + + + + Care Team Providers + +------+ + | Care Box Spring Maker Name | Role | Phone | + +------+ + | Yuriy Cardenas PA-C | PCP | | + +------+ + Reason for Visit + + + | Reason | Comments | + + + | New Patient Visit | | + + + Intake Referral (Routine) +--------+--------+ + + + + | Status | Reason | Specialty | Diagnoses / | Referred By | Referred To | | | | | Procedures | Contact | Contact | +--------+--------+ + + + + | Closed | | Cardiology | Diagnoses | Ronald, | Alejandra, | | | | | | Yuriy Mcgill PA-C | MD Charlotte | | | | | Atherosclero | [address] | [address] | | | | | tic heart | [place] | [facility] | | | | | disease of | Rd | Rd [place], | | | | | [place] | [place], | [place] | | | | | coronary | [place] | [address] | | | | | artery | [address] | Phone: | | | | | without | Phone: | [phone] | | | | | angina | [phone] | Fax: | | | | | pectoris | Fax: | [phone] | | | | | Old | [phone] | | | | | | myocardial | | | | | | | infarction | | | | | | | Procedures | | | | | | | CONSULT TO | | | | | | | CARDIOLOGY | | | | | | | DE NEW | | | | | | | PATIENT | | | | | | | LEVEL V DE | | | | | | | EST PATIENT | | | | | | | LEVEL V | | | +--------+--------+ + + + + Encounter Details +--------+---------+ + + + | Date | Type | Department | Care Team | Description | +--------+---------+ + + + | 08/05/ | Office | Cardiology - | Charlotte Roberts MD | Atherosclerosis of | | 2019 | Visit | General [address] | [address] | [place] coronary | | | | [address] | [address] | artery of [place] | | | | Mailcode: [id number] | [place], [place] | heart without angina | | | | [facility] | [address] | pectoris (Primary | | | | [address] [place], | [phone] | Dx) | | | | [place] [address] | | | | | | [phone] | | | +--------+---------+ + + + [...] + + + | Blood Pressure | 129/78 | 08/05/2018 2:44 PM | | | | | PDT | | + + + + + | Pulse | 97 | 08/05/2018 2:44 PM | | | | | PDT | | + + + + + | Temperature | - | - | | + + + + + | Respiratory Rate | 16 | 08/05/2018 2:44 PM | | | | | PDT | | + + + + + | Oxygen Saturation | 98% | 08/05/2018 2:44 PM | | | | | PDT | | + + + + + | Inhaled Oxygen | - | - | | | Concentration | | | | + + + + + | Weight | 78.9 kg (174 lb) | 08/05/2018 2:44 PM | | | | | PDT | | + + + + + | Height | 167.6 cm (5' 6") | 08/05/2018 2:44 PM | | | | | PDT | | + + + + + | Body Mass Index | 28.08 | 08/05/2018 2:44 PM | | | | | PDT | | + + + + + documented in this encounter Patient Instructions Patient Instructions Charlotte Roberts MD - 08/05/2018 2:00 PM PDT1. Continue current medica tions. 2. Recommend initiation of gradual exercise regimen. documented in this encounter Progress Notes Charlotte Roberts MD - 08/05/2018 2:00 PM PDT CARDIOLOGY CONSULT NOTE Attending General Accounting Clerk: Richard Ospina MD Referring Physician: ashley Primary Care Physician: Yuriy Cardenas PA-C DATE OF CONSULTATION: 08/01/2018 REASON FOR CONSULTATION: Establish care. HISTORY OF PRESENT ILLNESS Nancy Terrazas is a 47 year old female with past medical history of coronary artery di sease s/p PCI to proximal LAD in 2013 cb ISR status post PCI 2015, with unstable angina in prompting repeat coronary angiography demonstrating moderate disease of the LAD recc'd m edical management, anterior STEMI 02/2017 due to acute thrombotic occlusion of the proximal LAD, for which sequential ballooning was used to break up thrombus burden which embolized do wnstream (no stent placed), chronic ischemic cardiomyopathy (LVEF 40-45% at time of most rec ent ID, more recent LVEF 60-65%), 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 She received no adjuvant chemo or RT due to triston y stage of the disease and has been in remission since then. Also with history of hypertensi on, hyperlipidemia, and type 2 diabetes, prior nicotine use. Presents for initial outpatient CV evaluation. Patient presents with above history. Reports no intervening cardiovascular issues. Not part icularly active at baseline- although does walk regularly. Reports approx 4 x monthly she ex periences chest pain sx, occurs at rest but worsens with exertion, resolves with SL nitrogly cerine. Has not had sx not resolve after ~30 minutes. Reports weight has been downtrending o tai the past several months, no PND/orthopnea/LE swelling. Does not routinely track BP at [facility]- but at clinic visits systolic BP 120s mostly. Continues to not smoke. Cardiovascular history: #1 Coronary artery disease -s/p PCI to proximal LAD in 2013 (4.0 x 23 mm Xience Expedition) -ISR of LAD stent status post PCI 2015 4 x 18 mm Resolute Integrity drug-eluting stent wa s deployed in the proximal LAD extendinginto the mid-LAD overlapping proximally with the p revious stent andcovering the area of in-stent restenosis. -unstable angina in 2016 prompting repeat coronary angiography demonstrating moderate disea se of the LAD recc'd medical management -anterior STEMI 02/2017 due to acute thrombotic occlusion of the proximal LAD, for which se quential ballooning was used to break up thrombus burden which embolized downstream (no sten t placed) #2 Ischemic cardiomyopathy -LVEF 40-45% at time of ID, most recent 60-65%, normal RV function, no sig valve disease #3 Hypertension #4 Hyperlipidemia #5 T2DM #6 Prior nicotine dependence ROS notably negative for chest pain, palpations, PND, orthopnea, lower extremity edema or c laudication, syncope or presyncope, recent fever, chills, nausea, vomiting, cough, abdominal pain, dysuria or other complaints. ROS 10-point ROS negative except as per above PAST MEDICAL HISTORY Past Medical History: Diagnosis Date Asthma Depressive disorder GERD (gastroesophageal reflux disease) HTN (hypertension) Hyperlipidemia, mixed Low back pain Lumbar radiculopathy Migraine Obesity PONV (postoperative nausea and vomiting) per patient she has had bad problems with vomiting after surgery. Spinal stenosis, lumbar region, without neurogenic claudication Spinal stenosis, lumbar region, without neurogenic claudication Tachycardia Thoracic or lumbosacral neuritis or radiculitis, unspecified Thoracic or lumbosacral neuritis or radiculitis, unspecified Type 2 diabetes mellitus (HCC) Unspecified asthma(493.90) PAST SURGICAL HISTORY Past Surgical History Procedure Laterality Date Lumbar fusion 03/2010&12/24/12 L3-S1 Endometrial ablation 2001 Breast reduction surgery Sinus surgery Cholecystectomy Lithotripsy Cervical conization Tubal ligation OUTPATIENT MEDICATIONS (Not in a hospital admission) Current Outpatient Medications on File Prior to Visit Medication Sig Dispense Refill albuterol 90 mcg/actuation inhalation HFA aerosol inhaler Inhale 1-2 puffs by mouth ashely ry four hours as needed. aspirin chewable 81 mg oral tablet,chewable Chew and swallow 81 mg once daily. atorvastatin 40 mg oral tablet Take 40 mg by mouth once daily. Blood-Glucose Meter [facility] Use for checking BG 3x daily 1 each 0 citalopram 20 mg oral tablet Take 20 mg by mouth once daily at bedtime. clopidogrel 75 mg oral tablet Take 75 mg by mouth once daily. empagliflozin (JARDIANCE) 10 mg oral tablet Take 1 tablet by mouth once daily. 30 table t 5 furosemide 40 mg oral tablet Take 40 mg by mouth once daily. gemfibrozil 600 mg oral tablet Take 1 tablet by mouth two times daily. 60 tablet 11 insulin aspart U-100 100 unit/mL subcutaneous insulin pen Inject 0-15 Units under the s kin (SUBC) three times daily before meals. Up to 45 units total daily per sliding scale. 90d Rx 42 mL 3 Insulin Syringe-Needle U-100 1 mL 31 gauge x 5/16 syringe Use for injecting insulin 5 t imes daily 500 each 3 isosorbide mononitrate CR 30 mg oral tablet extended release 24 hr Take 2 tablets by mo uth once daily. 60 tablet 11 LEVEMIR U-100 INSULIN 100 unit/mL subcutaneous solution Inject 30-34 Units under the sk in (SUBC) two times daily. 90d Rx 70 mL 3 losartan 50 mg oral tablet Take 25 mg by mouth once daily. metoprolol succinate 25 mg oral tablet extended release 24 hr Take 25 mg by mouth once daily. Miscellaneous Medical Supply [facility] DME: oxygen saturation monitor, for monitoring regula rly, on oxygen Size (if applicable): n/a 1 each 0 [START ON 09/01/2018] morphine SR 10 mg oral capsule,extend.release pellets Take 1 capsul e by mouth once daily. 28d Rx 28 capsule 0 nitroglycerin 0.4 mg sublingual tablet, sublingual Place 1 tablet under tongue as neede d for chest pain. 25 tablet 3 ONETOUCH ULTRA TEST strip USE TO TEST BLOOD GLUCOSE 4 XD 10 [START ON 09/01/2018] oxyCODONE (immediate release) 5 mg oral tablet Take 1 tablet by clifton th every six hours as needed for severe pain. 28d Rx 98 tablet 0 pregabalin (LYRICA) 150 mg oral capsule Take 1 capsule by mouth three times daily. Max: 600 mg/day 90 capsule 2 triamcinolone acetonide 0.1 % topical ointment Apply to affected area two times daily. Apply thin film to affected areas. 30 g 2 No current facility-administered medications on file prior to visit. INPATIENT MEDICATIONS Current Outpatient Medications: albuterol 90 mcg/actuation inhalation HFA aerosol inhaler, Inhale 1-2 puffs by mouth every four hours as needed., Disp: , Rfl: aspirin chewable 81 mg oral tablet,chewable, Chew and swallow 81 mg once daily., Disp: , Rf l: atorvastatin 40 mg oral tablet, Take 40 mg by mouth once daily., Disp: , Rfl: Blood-Glucose Meter [facility], Use for checking BG 3x daily, Disp: 1 each, Rfl: 0 citalopram 20 mg oral tablet, Take 20 mg by mouth once daily at bedtime., Disp: , Rfl: clopidogrel 75 mg oral tablet, Take 75 mg by mouth once daily., Disp: , Rfl: empagliflozin (JARDIANCE) 10 mg oral tablet, Take 1 tablet by mouth once daily., Disp: 30 t ablet, Rfl: 5 furosemide 40 mg oral tablet, Take 40 mg by mouth once daily., Disp: , Rfl: gemfibrozil 600 mg oral tablet, Take 1 tablet by mouth two times daily., Disp: 60 tablet, R fl: 11 insulin aspart U-100 100 unit/mL subcutaneous insulin pen, Inject 0-15 Units under the skin (SUBC) three times daily before meals. Up to 45 units total daily per sliding scale. 90d Rx , Disp: 42 mL, Rfl: 3 Insulin Syringe-Needle U-100 1 mL 31 gauge x 5/16 syringe, Use for injecting insulin 5 time s daily, Disp: 500 each, Rfl: 3 isosorbide mononitrate CR 30 mg oral tablet extended release 24 hr, Take 2 tablets by mouth once daily., Disp: 60 tablet, Rfl: 11 LEVEMIR U-100 INSULIN 100 unit/mL subcutaneous solution, Inject 30-34 Units under the skin (SUBC) two times daily. 90d Rx, Disp: 70 mL, Rfl: 3 losartan 50 mg oral tablet, Take 25 mg by mouth once daily. , Disp: , Rfl: metoprolol succinate 25 mg oral tablet extended release 24 hr, Take 25 mg by mouth once mayo ly. , Disp: , Rfl: Miscellaneous Medical Supply [facility], DME: oxygen saturation monitor, for monitoring regularly , on oxygen Size (if applicable): n/a, Disp: 1 each, Rfl: 0 [START ON 09/01/2018] morphine SR 10 mg oral capsule,extend.release pellets, Take 1 capsule b y mouth once daily. 28d Rx, Disp: 28 capsule, Rfl: 0 nitroglycerin 0.4 mg sublingual tablet, sublingual, Place 1 tablet under tongue as needed f or chest pain., Disp: 25 tablet, Rfl: 3 Saset HealthcareTOUCH ULTRA TEST strip, USE TO TEST BLOOD GLUCOSE 4 XD, Disp: , Rfl: 10 [START ON 09/01/2018] oxyCODONE (immediate release) 5 mg oral tablet, Take 1 tablet by mouth every six hours as needed for severe pain. 28d Rx, Disp: 98 tablet, Rfl: 0 pregabalin (LYRICA) 150 mg oral capsule, Take 1 capsule by mouth three times daily. Max: 60 0 mg/day, Disp: 90 capsule, Rfl: 2 triamcinolone acetonide 0.1 % topical ointment, Apply to affected area two times daily. Pelon ly thin film to affected areas., Disp: 30 g, Rfl: 2 ALLERGIES Allergies Allergen Reactions Codeine Nausea and Vomiting Latex Rash, Hives and Dyspnea Blisters Sulfasalazine Rash Sulfa (Sulfonamide Antibiotics) Nausea and Stomach Upset Other reaction(s): VOMITING Lisinopril Cough Hair loss FAMILY HISTORY Family History Problem Relation Hypertension Mother Asthma Mother Arthritis Mother Depression Mother Asthma Sister Depression Sister Asthma Grandmother Arthritis Grandmother Depression Grandmother Heart Disease Grandmother Allergies Father Allergies Sister Arthritis Father Arthritis Maternal Grandmother Blood Disease Sister Diabetes Mother Heart Disease Mother Heart Disease Maternal Grandmother Hypertension Maternal Grandmother Thyroid Mother SOCIAL HISTORY Social History Socioeconomic History Marital status: Spouse name: Not on file Number of children: 2 Years of education: Not on file Highest education level: Not on file Occupational History Occupation: disability -- last worked 11/2009 Employer: NONE Social Needs Financial resource strain: Not on file Food insecurity: Worry: Not on file Inability: Not on file Transportation needs: Medical: Not on file Non-medical: Not on file Tobacco Use Smoking status: Former Smoker Packs/day: 0.50 Years: 20.00 Pack years: 10.00 Types: Cigarettes Last attempt to quit: 05/01/2017 Years since quittin.2 Smokeless tobacco: Never Used Substance and Sexual Activity Alcohol use: No Alcohol/week: 0.0 oz Drug use: No Comment: hx marijuana Sexual activity: Not on file Lifestyle Physical activity: Days per week: Not on file Minutes per session: Not on file Stress: Not on file Relationships Social connections: Talks on phone: Not on file Gets together: Not on file Attends islam service: Not on file Active member of club or organization: Not on file Attends meetings of clubs or organizations: Not on file Relationship status: Not on file Intimate partner violence: Fear of current or ex partner: Not on file Emotionally abused: Not on file Physically abused: Not on file Forced sexual activity: Not on file Other Topics Concern Not on file Social History Narrative Madalyn is and they have a 16 year old son Arden and 20 year old daughter Rakel. 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 Long time smoker, quit in August. Does not drink alcohol. PHYSICAL EXAMINATION Last Vitals: There were no vitals taken for this visit. Wt Readings from Last 1 Encounters: 07/10/18 79.9 kg (176 lb 3.2 oz) Gen: well appearing, looks stated age, mildly anxious HEENT: anicteric sclera, oropharynx clear without any erythema or exudate, nC in place Lungs: CTAB, no wheezes/rhonchi/rales appreciated Cardiovascular: normal rate, regular rhythm, normal S1 and S2, no murmurs, rubs, or gallops appreciated. JVP ~ at the clavicle at 45 degrees Abdomen: flat, normoactive bowel sounds, soft, non-tender Extremities: warm without edema Peripheral Pulses: 2+ symmetric radial and dorsalis pedis pulses Neuro: alert and oriented, pleasant and cooperative, grossly non-focal Laboratory Data: CBC with diff last 72 hours (or 3 results): No results for input(s): WBC, HB, HCT, PLT, NEUTROPERC, LYMPHPERC, MONOPERC, BASOPERC, EOSP ERC in the last 72 hours. Invalid input(s): BANDPCT Chemistries: Last 72 Hours (or 3 results): No results for input(s): NA, K, CL, BICARB, BUN, CR, CA, MG, PO4 in the last 72 hours. No results for input(s): AST, ALT, TBILI, AP, ALB, TP in the last 72 hours. Lab Results Component Value Date APTT 24.6 (L) 07/12/2017 Troponins, last 72 hours: No results for input(s): TROPONIN in the last 72 hours. Lab Results Component Value Date TROPONIN 0.08 07/12/2017 No results found for: NTPROBNP No results found for: CHOL, LDL, HDL, TRI Imaging Data: EKG Transthoracic Echocardiogram 06/2017 (Formerly [facility]) ECG rhythm: Sinus rhythm. Study: A limited 2-dimensional transthoracic echocardiogram with limited spectral and color flow Doppler was performed.Patient supine. Study: This was a technically adequate study. Left Ventricle: Overall left ventricular systolic function is normal with, an EF between 65 - 70 %. Left Ventricle: The left ventricle cavity size is normal. Left Ventricle: No regional wall motion abnormalities. Right Ventricle: The right ventricle is mildly enlarged measuring between 3.4 - 3.7 cm. Right Ventricle: The right ventricular systolic function is normal. Aortic Valve: The aortic valve is trileaflet. Mitral Valve: The mitral valve is normal. Tricuspid Valve: The tricuspid valve appears structurally normal. Pericardium: There is no pericardial effusion. Pericardium: No pleural effusion seen. Coronary Angiogram CARDIAC CATHETERIZATION AND CORONARY INTERVENTION REPORT PATIENT NAME: Nancy Terrazas DATE OF : 1970 DATE OF PROCEDURE: 02/13/2017 PRIMARY CARE PROVIDER: Ki Senior NP MANAGER CLINICAL APPLICATIONS: Ewelina Grimaldo MD. PRE-PROCEDURE DIAGNOSIS: Possible Anterior STEMI POST-PROCEDURE DIAGNOSIS: Same PROCEDURES PERFORMED: Coronary angiography With moderate sedation Left Heart Catheterization With moderate sedation Coronary intervention With moderate sedation. DESCRIPTION OF PROCEDURE: Please refer to the computer log entry form for precise details. I reviewed the patient s pre-sedation assessment and vital signs, supervised and directed sedation from administrati on to patient stabilization for recovery. Hemostasis was obtained using a compression device . Moderate sedation ended with hemostasis, specific times found in log but duration was roug hly 60 minutes. There were no immediate complications. Estimated blood loss was 20 cc. Coronary Angiography: Following informed consent moderate sedation was administered then the patient's R wrist an d both groins were prepped and draped. The radial site was anesthetized with 1% lidocaine. A 6-Kazakh sheath was inserted into the radial artery. The above procedures were performed us ing 5F TIG catheters. Coronary Intervention: The patient was anticoagulated. A 6F Ikari L (JL-3.5, Ikari 3.5, EBU-3.75 did not engage th e LM) guiding catheter was inserted. A Choice PT guidewire was advanced into the distal LAD and across the area of stenosis. There was 99% stenosis with thrombus in the proximal LAD st ent. A 3.0X10 Angiosculpt balloon was used to cut the entire length of stent, at 12 vi. Thi s was followed by use of NC Quantum 3.5X15 with high pressure inflations of up to 22 vi. Keller bsequent angiography showed embolization in the apical LAD. Integrelin bolus X2 was given an d I tried to break up (multiple inflations at 3 vi with a 2.0X15 balloon) and extract this thrombus--this was not successful. FINDINGS: Left ventricular end-diastolic pressure (LVEDP) was 20 mm Hg. There was no gradient across the aortic valve. Left main coronary artery: Normal Left anterior descending coronary artery: 99% stenosis with thrombus in the proximal LAD st ent; no significant other disease. Circumflex coronary artery: Normal Right coronary artery: Normal Result of intervention: 0% residual stenosis of the proximal LAD 100% occlusion of the Apical LAD CONCLUSIONS: 1. 0% residual stenosis of the proximal LAD 2. 100% occlusion of the Apical LAD 3. Normal LM, LCx, R RECOMMENDATIONS: ASA and Plavix for 6 mos. Continue other cardiac meds. F/u with primary track worker in 2 wks at [facility]. Ewelina Grimaldo MD [facility] DATE/TIME: 02/13/2017 7:55 Impression: Nancy Terrazas is a 47 year old female with past medical history of coronary artery di sease s/p PCI to proximal LAD in 2013 cb ISR status post PCI 2016, with unstable angina in 2 017 prompting repeat coronary angiography demonstrating moderate disease of the LAD recc'd m edical management, anterior STEMI 02/2017 due to acute thrombotic occlusion of the proximal LAD, for which sequential ballooning was used to break up thrombus burden which embolized do wnstream (no stent placed), chronic ischemic cardiomyopathy (LVEF 40-45% at time of most rec ent ID, more recent LVEF 60-65%), 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 She received no adjuvant chemo or RT due to triston y stage of the disease and has been in remission since then. Also with history of hypertensi on, hyperlipidemia, and type 2 diabetes, prior nicotine use. Presents for initial outpatient CV evaluation. #Coronary artery disease s/p PCI to proximal LAD in 2013 cb ISR status post PCI 2015, with unstable angina in 2016 p rompting repeat coronary angiography demonstrating moderate disease of the LAD recc'd medica l management, anterior STEMI 02/2017 due to acute thrombotic occlusion of the proximal LAD, for which sequential ballooning was used to break up thrombus burden which embolized downstr eam (no stent placed). Describes stable CCS II angina on BB and long acting nitrate therapy. Would recommend ongoing aggressive management of cardiac risk factors as outlined below. Di scussed w/ patient should symptoms escalate in terms of frequency or intensity, could consid er repeat ischemic evaluation. -continue 75 mg plavix daily (ASA stopped post VATs) -continue metoprolol succinate 25 mg daily -continue imdur 60 mg daily -continue atorvastatin 40 mg daily -PRN SL nitroglycerine reviewed appropriate use -will ask for cath reports and images to be pushed -recommend introduction of gradual exercise regimen #Ischemic cardiomyopathy NYHA Class II. Functional status also limited by pulmonary disease. Most recent TTE 2018 sh owed normal LV and RV function, no sig valve disease. Filling pressures not elevated on exam . -continue BB as above -continue losartan 25 mg daily -continue lasix 40 mg daily #Hypertension Presently well controlled. -continue ARB as above #Hyperlipidemia -continue atorvastatin 80 mg daily #Prior nicotine use -continue cessation #Followup Will plan to see the patient back in clinic in one year or sooner as needed. This patient was interviewed and examined by my supervising attending, Dr. Ospina, who a grees with the above impression and recommendations unless otherwise documented. Charlotte Roberts MD Cardiovascular Medicine Fellow [facility] [place] [facility] and [facility], [place] ATTENDING NOTE: I saw and evaluated Ms. Terrazas with Dr. Roberts. Management discussed in detail. I agree wit h the findings, assessment and plan of care as per Dr. Roberts's note. Mario Ospina DO Traffic Analysis Technician Clinical edi programmer analyst/ Division of Cardiovascular Medicine documented in th is encounter Plan of Treatment Not on filedocumented as of this encounter Procedures + +--------+ + + + | Procedure Name | Priori | Date/Time | Associated Diagnosis | Comments | | | ty | | | | + +--------+ + + + | 12 LEAD ECG | Routin | 08/05/2018 | Atherosclerosis of | Results for this | | | e | 2:51 PM | [place] coronary | procedure are in the | | | | PDT | artery of [place] | results section. | | | | | heart without angina | | | | | | pectoris | | + +--------+ + + + documented in this encounter Results 12 LEAD ECG (08/05/2018 2:51 PM PDT) + + + + + + | Component | Value | Ref Range | Performed | Pathologist | | | | | At | Signature | + + + + + + | VENTRICULAR | 92 | bpm | [facility] | | | RATE | | | OF | | | | | | CARDIOLOGY | | + + + + + + | ATRIAL RATE | 91 | ms | [facility] | | | | | | OF | | | | | | CARDIOLOGY | | + + + + + + | P-R | 141 | ms | [facility] | | | INTERVAL | | | OF | | | | | | CARDIOLOGY | | + + + + + + | P AXIS | -25 | deg | [facility] | | | | | | OF | | | | | | CARDIOLOGY | | + + + + + + | QRS | 90 | ms | [facility] | | | DURATION | | | OF | | | | | | CARDIOLOGY | | + + + + + + | QT | 338 | ms | [facility] | | | | | | OF | | | | | | CARDIOLOGY | | + + + + + + | QTC-BAGEMATT | 417 | ms | [facility] | | | | | | OF | | | | | | CARDIOLOGY | | + + + + + + | R AXIS | -66 | deg | [facility] DEPT | | | | | | OF | | | | | | CARDIOLOGY | | + + + + + + | T AXIS | -4 | deg | [facility] | | | | | | OF | | | | | | CARDIOLOGY | | + + + + + + | ECG | Sinus rhythm | | [facility] | | | IMPRESSION | | | OF | | | | | | CARDIOLOGY | | + + + + + + | ECG | Anterior infarct, old- | | [facility] | | | IMPRESSION | ABNORMAL ECG - | | OF | | | | | | CARDIOLOGY | | + + + + + + | ECG | Electronically signed | | [facility] | | | IMPRESSION | by: EDITH SNEED | | OF | | | | 08-06-2018 18:04:25 | | CARDIOLOGY | | + + [...] + + + + + | OMAR ROSENT OF | [address] | [place], [place] | | | CARDIOLOGY | [address] | [address] | | + + + + + documented in this encounter Visit Diagnoses + + | Diagnosis | + + | 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
--- OUTSIDE RECORDS SUMMARY | ~2019-10-16 | XMS | Encounter Summary ---
Demographics + + + | Address | [address] | | | [place] [address] | + + + | Home Phone [...] #[place] | | | | | [address] | | + + + + + | Bebe Terrazas | ECON | Unknown | Unavailable | + + + + + | Arden Terrazas | ECON | Unknown | | + + + + + Care Team Providers + +------+ + | Care Wagon Winder Name | Role | Phone | + +------+ + | Crissy Santoyo PA-C | PCP | | + +------+ + Encounter Details +--------+ + + + + | Date | Type | Department | Care Team | Description | +--------+ + + + + | 04/12/ | Telephone | Neurosurgery at | Sivakumar Tanner, | | | 2015 | | [facility] [address] | MD [address] | | | | | [address] [facility] | [place], [place] | | | | | Health and Healing, | [address] | | | | | [facility] | [phone] | | | | | floor [place], [place] | | | | | | [address] | | | | | | [phone] | | | +--------+ + + + [...]
--- OUTSIDE RECORDS SUMMARY | ~2019-10-16 | XMS | Encounter Summary ---
Demographics + + + | Address | [address] | | | [place] [address] | + + + | Home Phone [...] #[place] | | | | | [address] | | + + + + + | Bebe Terrazas | ECON | Unknown | Unavailable | + + + + + | Arden Terrazas | ECON | Unknown | | + + + + + Care Team Providers + +------+ + | Care Apartment Locator Name | Role | Phone | + [...] back | Adama Rojo MD | [address] | | | | | surgical | | Perez Noel | | | | | syndrome | | [address] | | | | | Procedures | | Research | | | | | MRI SPINE | | Center | | | | | LUMBAR WWO | | [place], [place] | | | | | CONTR | | [address] | | | | | | | Phone: | | | | | | | [phone] | | | | | | | Fax: | | | | | | | [phone] | +--------+--------+ + + + + Encounter Details +--------+ + + + + | Date | Type | Department | Care Team | Description | +--------+ + + + + | 10/02/ | Hospital | Diagnostic Imaging | | | | 2012 | Encounter | Services at [facility] | | | | | | [address] | | | | | | [address] | | | | | | Research Center | | | | | | [place], [place] | | | | | | [address] | | | | | | [phone] | | | +--------+ + + + [...] MRI SPINE LUMBAR WWO | Routin | 10/02/2012 | Failed back | Results for this | | CONTR | e | 5:53 PM | surgical syndrome | procedure are in the | | | | PDT | | results section. | + +--------+ + + + | CREATININE, POC | Routin | 10/02/2012 | | Results for this | | | e | 4:48 PM | | procedure are in the | | | | PDT | | results section. | + +--------+ + + + documented in this encounter Results MRI SPINE LUMBAR WWO [...] | | | | | approval / Felton | | | | | | Selam 10/03/2012 10:34 | | | | | | AM Preliminary / | | | | | | Haydenoka Selam 10/03/2012 | | | | | [...] | | | + +---------+ + + ROUTINE CHEMISTRY TESTS (RADIOLOGY), POC (10/02/2012 4:48 PM PDT) + +---------+ + + + | Component | Value | Ref Range | Performed | Pathologist | | | | | At | Signature | + +---------+ + + + | CREATININE, | 0.5 (L) | 0.6 - 1.1 mg/dL | [facility] - | | | POC | | | [facility] | | | | | | RONAN [facility]ALL | | [...] [facility] | 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
--- OUTSIDE RECORDS SUMMARY | ~2019-10-16 | XMS | Encounter Summary ---
Demographics + + + | Address | [address] | | | [place] [address] | + + + | Home Phone [...] #[place] | | | | | [address] | | + + + + + | Bebe Terrazas | ECON | Unknown | Unavailable | + + + + + | Arden Terrazas | ECON | Unknown | | + + + + + Care Team Providers + +------+ + | Care User Interface Designer Name | Role | Phone | + +------+ + | Yuriy Cardenas PA-C | PCP | | + +------+ + Encounter Details +--------+ + + + + | Date | Type | Department | Care Team | Description | +--------+ + + + + | 05/25/ | Abstract | [facility] Primary Care | Yuriy Cardenas, | | | 2019 | | at [place] [address] | PA-C [address] | | | | [address] | [address] | | | | | [facility] [place], [place] | [place], [place] | | | | | [address] | [address] | | | | | [phone] | | | | | | | [...] Mammo Digital Screening Bilateral w R2 12/04/2012 [facility] | NON [facility] | | Result [...]
--- OUTSIDE RECORDS SUMMARY | ~2019-10-16 | XMS | Encounter Summary ---
Demographics + + + | Address | [address] | | | [place] [address] | + + + | Home Phone | | + + + | Preferred Language | Unknown | + + + | Marital Status | | + + + | Restoration Affiliation | PRE | + + + [...] + + + + + | Dustin Terrazsa | ECON | [address] | Unavailable | | | | #[place], [place] | | | | | [address] | | + + + + + | Bebe Terrazas | ECON | Unknown | Unavailable | + + + + + | Arden Hammondi | ECON | Unknown | | + + + + + Care Team Providers + +------+ + | Care Testboard Operator Name | Role | Phone | + +------+ + | Yuriy Cardenas PA-C | PCP | | + +------+ + Encounter Details +--------+--------+ + + + | Date | Type | Department | Care Team | Description | +--------+--------+ + + + | 09/26/ | Travel | | | | | [...]
--- OUTSIDE RECORDS SUMMARY | ~2019-10-16 | XMS | Encounter Summary ---
Demographics + + + | Address | [address] | | | [place] [address] | + + + | Home Phone [...] #[place] | | | | | [address] | | + + + + + | Bebezully Terrazas | ECON | Unknown | Unavailable | + + + + + | Ardenjostin Hammondi | ECON | Unknown | | + + + + + Care Team Providers + +------+ + | Care Research Development Director Name | Role | Phone | [...] | | | | | syndrome | [place], [place] | [address] [place], | | | | | Lumbar | [address] | [place] | | | | | radiculopath | Phone: | [address] | | | | | y Disorder | [phone] | Phone: | | | | | of SI | Fax: | [phone] | | | | | (sacroiliac) | [phone] | Fax: | | | | | joint | | [phone] | | | | | Procedures | | | | | | | REQUEST TO | | | | | | | SURGERY | | | | | | | STAMP MOUNTER | | | | | | | WA INJ, | | | | | | | SACROILIAC | | | | | | | JOINT | | | | | | | W/IMAGE | | | | | | | GUIDE | | | | | | | INCLUDE | | | | | | | ARTHROGRAPHY | | | | | | | WA INJ | | | | | | | FOR | | | | | | | SACROILIAC | | | | | | | JT ANESTH | | | | | | | WA MD CS/SM | | | | | | | PHYS,5 YRS+ | | | | | | | WA MD CS/SM | | | | | [...] 04/30/ | Procedure | Pain Center at [facility] | Yoselyn Sahu MD | Hip pain (right); | | 2013 | | [address] | [address] | Procedure | | | | [facility] | [address] [place], | | | | | and Healing, | [place] [address] | | | | | [facility] | [phone] | | | | | Floor [place], [place] | | | | | | [address] | | | | | | [phone] | | | +--------+ + + + [...] costa ht be different from the original. [facility] Patient Instructions - Post Interventional Procedure Date: 04/30/2013 Name: Nancy Terrazas Date of : 1970 Procedure Performed: right Sacroiliac joint injections Procedure Provider: YOSELYN SAHU MD If you have any problems you believe are associated with your procedure tonight, Please call the [facility], and ask for the Pain Management Consu ltant. If you have problems or questions between 9:00 am and 4:00 pm, Please call the [facility] Nurse Triage Line, . If you go [...] Resume all your regular medications. Follow-up in [facility] in 3-4 weeks. Instructions printed and reviewed with the patient. Copy of instructions given to the young ent. SJ BATRES MD Pain Medicine Fellow [facility] documented in this encounter Progress Notes Yoselyn Sahu MD - 05/02/2013 7:27 AM PSTI participated in the evaluation of this patient, and was present for the entire procedure. I edited the trainee's note. YOSELYN SAHU MD [facility] PAIN [place] [id number] [facility], 4th Floor Mail Code: [address] [address] Sj Pierre MD - 04/30 3:18 PM PSTPROVIDER OPERATIVE NOTE Date: April 30, 2013 Location: [facility] Procedure Room Nancy Terrazas [id number] :1970, presents to clinic for: PROCEDURE: Sacroiliac Joint injection LEVEL/LATERALITY: right PRE-OPERATIVE DIAGNOSIS: No diagnosis found. POST-OPERATIVE DIAGNOSIS: No diagnosis found. ATTENDING PHYSICIAN: YOSELYN SAHU MD STRIP POLISHER: Fellow Sj Batres MD ANESTHESIA: sedation delivered [...] sedation. Ms. Terrazas was escorted to the [facility] Procedure Room, w here she was positioned [...] the patie nt was transported to the [facility] PACU. Images were saved and sent to [employer]. Ms. Terrazas was escorted to the PACU where she made an uneventful recovery. She will keep a pain diary to guide the next step in her treatment. Ms. Terrazas did note initial pain relief . YOSELYN SAHU MD was present for the entire procedure. SJ BATRES MD Pain Medicine Fellow [facility] Karma Pattno RN - 04/30/2013 2:31 PM PST CROSSING TENDER PRE-SEDATION: Date: April 30, 2013 Nancy Terrazas [id number] 1970 ALLERGIES: Codeine; Morphine; and Sulfa (sulfonamide [...] PRE-SEDATION: Date: April 30, 2013 Nancy Terrazas [id number] 1970 See CROSSING TENDER Pre-Sedation Note. IV ACCESS: IV in Place IV Start Time 1430 22g RDH BASELINE VS: See Sedation Flow Sheet. Nancy Terrazas [id number] 1970, presents to clinic for: Procedure: Sacroiliac [...] 1ml 1455 Procedure completed. Patient returned to [facility] per [facility]. Patient is stable. IV d/c. documented in this en counter Plan of Treatment Not on filedocumented as of this encounter Procedures + +--------+ + + + | Procedure Name | Priori | Date/Time | Associated Diagnosis | Comments | | | ty | | | | + +--------+ + + + | WA ROPIVACAINE HCL | Routin | 04/30/2013 | Disorder of SI | | | INJ 0.5% | e | 3:21 PM | (sacroiliac) joint | | | | | PST | | | + +--------+ + + + | WA 10ML LOCM 200-299 | Routin | 04/30/2013 | Disorder of SI | | | MG/ML ICON | e | 3:21 PM | (sacroiliac) joint | | | | | PST | | | + +--------+ + + + | WA 10ML LOCM 200-299 | Routin | 04/30/2013 | Disorder of SI | | | MG/ML ICON | e | 3:21 PM | (sacroiliac) joint | | | | | PST | | | + +--------+ + + + | WA FLUOROSCOPIC | Routin | 04/30/2013 | Disorder of SI | | | GUIDANCE FOR NEEDLE | e | 3:20 PM | (sacroiliac) joint | | | PLACEMENT | | PST | | | + +--------+ + + + | WA INJ, SACROILIAC | Routin | 04/30/2013 | [...]
--- OUTSIDE RECORDS SUMMARY | ~2019-10-16 | XMS | Encounter Summary ---
Demographics + + + | Address | [address] | | | [place] [address] | + + + | Home Phone [...] #[place] | | | | | [address] | | + + + + + | Bebe Terrazas | ECON | Unknown | Unavailable | + + + + + | Arden Terrazas | ECON | Unknown | | + + + + + Care Team Providers + +------+ + | Care Training Project Manager Name | Role | Phone | + +------+ + | Yuriy Cardenas PA-C | PCP | | + +------+ + Encounter Details +--------+ + + + + | Date | Type | Department | Care Team | Description | +--------+ + + + + | 06/19/ | MyChart | [facility] Primary Care | Yuiry Cardenas, | RE: Question | | 2019 | Encounter | at [place] [address] | PA-C [address] | | | | [address] | [address] | | | | | [place], [place] | [place], [place] | | | | | [address] | [address] | | | | | [phone] | [phone] | | | | | | | [...]
--- OUTSIDE RECORDS SUMMARY | ~2019-10-16 | XMS | Encounter Summary ---
Demographics + + + | Address | [address] | | | [place] [address] | + + + | Home Phone | | + + + | Preferred Language | Unknown | + + + | Marital Status | | + + + | Adventist Affiliation | PRE | + + + | Race | White | + + + | Ethnic Group | Not or | + + + Author + + + | Author | [facility] | + + + | Organization | [facility] | + + + | [...] #[place] | | | | | [address] | | + + + + + | Bebe Terrazas | ECON | Unknown | Unavailable | + + + + + | Arden Terrazas | ECON | Unknown | | + + + + + Care Team Providers + +------+ + | Care School Nurse Name | Role | Phone | + +------+ + | Crissy Santoyo PA-C | PCP | | + +------+ + Reason for Visit + + + | Reason | Comments | + + + | Prior Authorization | lido patch | | Request | | + + + Encounter Details +--------+ + + + + | Date | Type | Department | Care Team | Description | +--------+ + + + + | 04/29/ | Documentati | [facility] Comprehensive | Saurabh Rosales I, | Prior Authorization | | 2013 | on | Pain Center at | MD [address] | Request (lido patch | | | | [facility] | [address] | ) | | | | [address] | [place], [place] | | | | | [facility] | [address] | | | | | and Healing, | [phone] | | | | | | | | | | | [place], [place] | | | | | | [address] | | | | | | [phone] | | | +--------+ + + + [...]
--- OUTSIDE RECORDS SUMMARY | ~2019-10-16 | XMS | Encounter Summary ---
Demographics + + + | Address | [address] | | | [place] [address] | + + + | Home Phone [...] #[place] | | | | | [address] | | + + + + + | Bebe Terrazas | ECON | Unknown | Unavailable | + + + + + | Arden Terrazas | ECON | Unknown | | + + + + + Care Team Providers + +------+ + | Care Division Manager Name | Role | Phone | [...] | | | | | | [facility] | | | | | | Health and Healing, | | | | | | [address] | | | | | | Floor [place], [place] | | | | | | [address] | | | | | | [phone] | | | +--------+ + + + [...]
--- OUTSIDE RECORDS SUMMARY | ~2019-10-16 | XMS | Encounter Summary ---
Demographics + + + | Address | [address] | | | [place] [address] | + + + | Home Phone [...] #[place] | | | | | [address] | | + + + + + | Bebe Terrazas | ECON | Unknown | Unavailable | + + + + + | Arden Terrazas | ECON | Unknown | | + + + + + Care Team Providers + +------+ + | Care Director Dietetics Department Name | Role | Phone | + [...] [address] | | | | | | [address] | | | | | | [place], [place] | | | | | | [address] | | | +--------+ + + + [...]
--- OUTSIDE RECORDS SUMMARY | ~2019-10-16 | XMS | Encounter Summary ---
Demographics + + + | Address | [address] | | | [place] [address] | + + + | Home Phone [...] #[place] | | | | | [address] | | + + + + + | Bebe Terrazas | ECON | Unknown | Unavailable | + + + + + | Arden Terrazas | ECON | Unknown | | + + + + + Care Team Providers + +------+ + | Care Retanner Name | Role | Phone | + [...] | | | | | syndrome | [place], [place] | [address] [place], | | | | | Lumbar | [address] | [place] | | | | | radiculopath | Phone: | [address] | | | | | y Disorder | [phone] | Phone: | | | | | of SI | Fax: | [phone] | | | | | (sacroiliac) | [phone] | Fax: | | | | | joint | | [phone] | | | | | Procedures | | | | | | | REQUEST TO | | | | | | | SURGERY | | | | | | | BUDGET CLERK | | | | | | | [...] | | | | | Procedures | [place], [place] | [place], [place] | | | | | CONSULT TO | [address] | [address] | | | | | PAIN CENTER | Phone: | | | | | | | [phone] | | | | | | | Fax: | | | | | | | [phone] | | +--------+--------+ + + + + Encounter Details +--------+---------+ + + + | Date | Type | Department | Care Team | Description | +--------+---------+ + + + | 04/16/ | Office | [facility] Comprehensive | Barbara Carlin, | Lumbar | | 2013 | Visit | Pain Center at | ANP | [facility]-laminectomy | | | | [facility] | | syndrome (Primary | | | | [address] | | Dx); Lumbar | | | | [facility] | | radiculopathy; | | | | and Healing, | | Disorder of SI | | | | | | (sacroiliac) joint | | | | Floor [place], [place] | | | | | | [address] | | | | | | [phone] | | | +--------+---------+ + + + [...] Foundation has a list of resources for [facility]: http://www.arthritis.org/media/chapters/wak/[place]/Tdjfgqrx_Yamw_27-41-39.pdf http://www.arthritis.org/chapters/[facility]/lkiwfwdsd-gwa-hybeaz-with-arthritis.php 2. Please start physical therapy as ordered [...] up for procedure, then with Barbara Carlin. [facility] Pre-Procedure Instructions: The procedure you discussed with your doctor is called: Sacroiliac Joint Injection. Please make sure this is scheduled with the [facility]. Please bring a hazmat cdl driver with you. We may give you medications that make you drowsy or otherw ise unsafe to drive. If you do not have a hazmat cdl driver, we will not be able to [...] Procedure P jeanine TODAY. PLEASE CONTACT THE [facility] AT [phone] ([phone]) FOR QUESTIONS OR IF YOU NEED TO CANCEL YOUR APPOINTMENT. [facility] documented in this encounter Progress Notes Yoselyn Sahu MD - 04/27/2013 11:31 AM PSTI participated in the evaluation of this patient, and was present for the entire procedure. I edited the trainee's note. YOSELYN SAHU MD [facility] [address] [place] [address] & [facility], 4th Floor Mail Code: [place] [address] Saurabh Flores MD - 12:09 PM PST [facility] Return Visit with Dr. Sahu [...] Nutrition: I recommend you meet with a sales trader for dietary advice for weight loss a [...] improve peripheral nerve pain. It is an vvyp-ejx-dqmy ter supplement. 4. Mental health counseling: Madalyn [...] She has been treated a t the [facility] with the following problem list:: Patient Active Problem List Diagnosis Date Noted Lumbar post-laminectomy syndrome 02/27/2013 Lumbar radiculopathy 12/22/2012 Ms. Terrazas completed the Brief Pain Inventory and a pain drawing which I reviewed. [facility] Brief Pain Inventory: (ten= worst [...] The Review of Systems obtained by the PUMP ERECTOR was reviewed. Additional Review of Systems: Bones, [...] following up with Dr. Sahu at the [facility] today for lo w back [...] Foundation has a list of resources for [place]: http://www.arthritis.org/media/chapters/wak/[place]/Rwubpooy_Zogd_35-91-46.pdf http://www.arthritis.org/chapters/[facility]/zyaqwywlh-vsf-ottbbh-with-arthritis.php 2. Please start physical therapy as ordered [...] Saurabh Rosales MD PGY-5, Pain Management Fellow [facility] Harley Saldivar MA - 04/16/2013 [...]
--- OUTSIDE RECORDS SUMMARY | ~2019-10-16 | XMS | Encounter Summary ---
Demographics + + + | Address | [address] | | | [place] [address] | + + + | Home Phone | | + + + | Preferred Language | Unknown | + + + | Marital Status | | + + + | Congregational Affiliation | PRE | + + + | Race | White | + + + | Ethnic Group | Not or | + + + Author + + + | Author | [facility] | + + + | Organization | [facility] | + + + | [...] #[place] | | | | | [address] | | + + + + + | Bebe Terrazas | ECON | Unknown | Unavailable | + + + + + | Arden Terrazas | ECON | Unknown | | + + + + + Care Team Providers + +------+ + | Care Premix Concrete Batcher Name | Role | Phone | + +------+ + | Yuriy Cardenas PA-C | PCP | | + +------+ + Reason for Visit + + + | Reason | Comments | + + + | Lab Results | | + + + Encounter Details +--------+ + + + + | Date | Type | Department | Care Team | Description | +--------+ + + + + | 04/03/ | Telephone | [facility] Primary Care | Yuriy Cardenas, | Lab Results | | 2019 | | at [place] [address] | PA-C [address] | | | [address] | [facility] | | | | | [facility] [place], [place] | [place], [place] | | | | | [address] | [address] | | | | | [phone] | [phone] | | | | | | | [...]
--- OUTSIDE RECORDS SUMMARY | ~2019-10-16 | XMS | Encounter Summary ---
Demographics + + + | Address | [address] | | | [place] [address] | + + + | Home Phone [...] [place] | | | | | [address] | | + + + + + | Bebe Terrazas | ECON | Unknown | Unavailable | + + + + + | Arden Terrazas | ECON | Unknown | | + + + + + Care Team Providers + +------+ + | Care Slag Skimmer Name | Role | Phone | + +------+ + | Yuriy Cardenas PA-C | PCP | | + +------+ + Encounter Details +--------+ + + + + | Date | Type | Department | Care Team | Description | +--------+ + + + + | 03/20/ | Pharmacy | [facility] | | | | 2013 | Visit | [facility] | | | | | | [address] | | | | | | Mailcode: [place] | | | | | | [facility] and | | | | | | [facility] | | | | | | [place], [place] | | | | | | [address] | | | | | | [phone] | | | +--------+ + + + [...]
--- OUTSIDE RECORDS SUMMARY | ~2019-10-16 | XMS | Encounter Summary ---
Demographics + + + | Address | [address] | | | [place] [address] | + + + | Home Phone [...] [place] | | | | | [address] | | + + + + + | Bebe Terrazas | ECON | Unknown | Unavailable | + + + + + | Arden Terrazas | ECON | Unknown | | + + + + + Care Team Providers + +------+ + | Care Utility Tractor Operator Name | Role | Phone | [...] | | | | neoplasm of | [address] | | | | | unspecified | [place] | Center for | | | | | part of left | Rd | Health and | | | | | bronchus or | [place], | Healing, | | | | | lung | [place] | [address] | | | | | | [address] | [place], [place] | | | | | | Phone: | [address] | | | | | | [phone] | Phone: | | | | | | Fax: | [phone] | | | | | | [phone] | Fax: | | | | | | | [phone] | +--------+--------+ + + + + Encounter [...] of left lung | | | | [facility] [address] | [place], [place] | (HCC) (Primary Dx) | | | | [facility] for | [address] | | | | | Health and Healing, | [phone] | | | | | [address] | | | | | | [place], [place] | | | | | | [address] | | | | | | [phone] | | | +--------+---------+ + + + [...] believe this is related t o previous PA and intentional weight loss rather than tumor [...] 50% of my time was spent in nmwg-dw-yqjs counseling with the patient as well as coordination of care. MD ESCOBAR Liang/YADIEL /[id number] signed by Kirk Sawyer MD at 06/18/2017 2:05 PM PDTdocumented in this encounter Plan of Treatment Not on filedocumented as of this encounter Visit Diagnoses + + | Diagnosis | + + | Non-small cell cancer of left lung (HCC) - Primary | + + documented in this encounter
--- OUTSIDE RECORDS SUMMARY | ~2019-10-16 | XMS | Encounter Summary ---
Demographics + + + | Address | [address] | | | [place] [address] | + + + | Home Phone [...] #[place] | | | | | [address] | | + + + + + | Bebe Terrazas | ECON | Unknown | Unavailable | + + + + + | Arden Terrazas | ECON | Unknown | | + + + + + Care Team Providers + +------+ + | Care Forensic Economist Name | Role | Phone | + [...] + + | 11/29/ | Telephone | [facility] Primary Care | Yuriy Cardenas, | Medication | | 2017 | | at [place] [address] | PA-C [id number] [address] | management | | | | [facility] | [facility] | | | | | [facility] [place], [place] | [place], [place] | | | | | [address] | [address] | | | | | [phone] | [phone] | | | | | | | [...]
--- OUTSIDE RECORDS SUMMARY | ~2019-10-16 | XMS | Encounter Summary ---
Demographics + + + | Address | [address] | | | [place] [address] | + + + | Home Phone | | + + + | Preferred Language | Unknown | + + + | Marital Status | | + + + | Mormon Affiliation | 1013 | + + + | Race | Unknown | + + + | Ethnic Group | Unknown | + + + Author + + + | Author | [facility] | | | and [place] José[place] | + + + | Organization | [facility] | | | and [place] | + + + | Address | Unknown | + + + | Phone | Unavailable | + + + Support + + + + + | Name | Relationship | Address | Phone | + + + + + | Dustin Terrazas | ECON | [place] | | | | | [address] | | + + + + + | Bebe Terrazas | ECON | [address] | | | | | [place], [place] | | | | | [address] | | + + + + + Care Team Providers + +------+ + | Care Financial Examiner Name | Role | Phone | + +------+ + | Ki Senior NP | PCP | | + +------+ + Encounter Details +--------+ + + + + | Date | Type | Department | Care Team | Description | +--------+ + + + + | 04/09/ | Hospital | [facility] | Conversion | | | 2018 | Encounter | [facility] | Transaction, | | | | | MEDICINE [address] | Provider Unknown | | | | | [address] | [phone] | | | | | [place], [place] | | | | | | [address] | Jocelyn Rojas | | | | | [phone] | MD Madeleine [address] | | | | | | [address] | | | | | | [place] [address] | | | | | | [phone] | | | | | | | [...] + + + | Blood Pressure | - | - | | + + + + + | Pulse | - | - | | + [...] + + + + | Weight | 90.7 kg (200 lb) | 04/09/2017 2:29 PM | | | | | PST | | + + + + + | Height | 167.6 cm (5' 6") | 04/09/2017 2:29 PM | | | | | PST | | + + + + + | Body Mass Index | 32.28 | 04/09/2017 2:29 PM | | | | | PST [...] + | POC GLUCOSE | Routin | 04/09/2017 | | Results for this | | | e | 2:25 PM | | procedure are in the | | | | PST | | results section. | + +--------+ + + + documented in this encounter Results POC Glucose (04/09/2017 2:25 PM PST) + + + + + + | Component | Value | Ref Range | Performed | Pathologist | | | | | At | Signature | + + + + + + | Glucose, | 86Comment: Testing | 65 - 99 mg/dL | EXTERNAL | | | Fingerstick | performed at [facility] | | LAB | | | | [place] | | | | | | [address] | | | | + + + [...]
--- OUTSIDE RECORDS SUMMARY | ~2019-10-16 | XMS | Encounter Summary ---
Demographics + + + | Address | [address] | | | [place] [address] | + + + | Home Phone | | + + + | Preferred Language | Unknown | + + + | Marital Status | | + + + | Restorationism Affiliation | PRE | + + + | Race | White | + + + | Ethnic Group | Not or | + + + Author + + + | Author | [facility] | + + + | Organization | [facility] | + + + | [...] #[place] | | | | | [address] | | + + + + + | Bebe Terrazas | ECON | Unknown | Unavailable | + + + + + | Arden Nini | ECON | Unknown | | + + + + + Care Team Providers + +------+ + | Care Shop Technician Name | Role | Phone | [...] | | | | | Atherosclero | [address] | | | | | tic heart | [place] | [facility] | | | | | disease of | Rd | Rd [place], | | | | | [place] | [place], | [place] | | | | | coronary | [place] | [address] | | | | | artery | [address] | Phone: | | | | | without | Phone: | [phone] | | | | | angina | [phone] | Fax: | | | | | pectoris | Fax: | [phone] | | | | | Old | [phone] | | | | | | myocardial | | | | | | | infarction | | | | | | | Procedures | | | | | | | CONSULT TO | | | | | | | CARDIOLOGY | | | | | | | [place] | | | | | | | PATIENT | | | | | | | [place] | | | | | | | [...] [address] | [place] coronary | | | | [address] | [address] Noel | artery of [place] | | | | Mailcode: [id number] | [place], [place] | heart without angina | | | | [facility] | [address] | pectoris (Primary | | | | [address] [place], | [phone] | Dx) | | | | [place] [address] | | | | | | [phone] | | | +--------+---------+ + + + [...] 2:00 PM PDT CARDIOLOGY CONSULT NOTE Attending Political Scientist: Richard Ospina MD Referring Physician: ashley Primary [...] 40-45% at time of most rec ent MS, more recent LVEF 60-65%), 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 She received no adjuvant chemo or [...] swelling. Does not routinely track BP at [facility]- but at clinic visits systolic BP 120s [...] Ischemic cardiomyopathy -LVEF 40-45% at time of MS, most recent 60-65%, normal RV function, no [...] mg by mouth once daily. Blood-Glucose Meter [facility] Use for checking BG 3x daily 1 [...] by mouth once daily. [employer] [facility] DME: oxygen saturation monitor, for monitoring regula [...] once daily., Disp: , Rfl: Blood-Glucose Meter [facility], Use for checking BG 3x daily, Disp: [...] , Disp: , Rfl: [employer] [facility], DME: oxygen saturation monitor, for monitoring regularly [...] chest pain., Disp: 25 tablet, Rfl: 3 DezineforceTOUCH ULTRA TEST strip, USE TO TEST BLOOD [...] file Gets together: Not on file Attends yarsanism service: Not on file Active member of [...] [facility] Data: EKG Transthoracic Echocardiogram 06/2017 ([facility]) ECG rhythm: Sinus rhythm. Study: A limited [...] 02/13/2017 PRIMARY CARE PROVIDER: Ki Senior NP CLAIMS VICE PRESIDENT: Ewelina Grimaldo MD. PRE-PROCEDURE DIAGNOSIS: Possible Anterior [...] site was anesthetized with 1% lidocaine. A 6-Bruneian sheath was inserted into the radial artery. [...] Continue other cardiac meds. F/u with primary firebrick layer helper in 2 wks at [facility]. 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 She received no adjuvant chemo or [...] documented. Charlotte Roberts MD Cardiovascular Medicine Fellow [facility] Cardiovascular [facility], [place] ATTENDING NOTE: I saw and evaluated Ms. Terrazas with Dr. Roberts. Management discussed in detail. I agree wit h the findings, assessment and plan of care as per Dr. Roberts's note. Mario Ospina DO Dishwasher Preparer Clinical catch basin cleaner/ Division of Cardiovascular Medicine documented in th [...] | | e | 2:51 PM | [place] coronary | procedure are in the | | | | PDT | artery of [place] | results section. | | | | [...] + + | [facility] | [address] | [place], [place] | | | CARDIOLOGY | [address] | [address] | | + + + + + documented in this encounter Visit Diagnoses + + | Diagnosis | + + | Atherosclerosis of [place] coronary artery of [place] heart without angina pectoris - | | Primary | + + documented in this encounter
--- OUTSIDE RECORDS SUMMARY | ~2019-10-16 | XMS | Encounter Summary ---
Demographics + + + | Address | [address] | | | [place] [address] | + + + | Home Phone [...] #[place] | | | | | [address] | | + + + + + | Bebe Terrazas | ECON | Unknown | Unavailable | + + + + + | Arden Terrazas | ECON | Unknown | | + + + + + Care Team Providers + +------+ + | Care Road Mixer Operator Name | Role | Phone [...] + + | 01/20/ | Refill | [facility] Primary Care | Yuriy Cardenas, | Refill Request | | 2018 | | at [place] [address] | PA-C [address] [address] | | | | | [facility] | [facility] | | | | | [facility] [place], [place] | [place], [place] | | | | | [address] | [address] | | | | | [phone] | [phone] | | | | | | | [...]
--- OUTSIDE RECORDS SUMMARY | ~2019-10-16 | XMS | Encounter Summary ---
Demographics + + + | Address | [address] | | | [place] [address] | + + + | Home Phone [...] #[place] | | | | | [address] | | + + + + + | Bebe Terrazas | ECON | Unknown | Unavailable | + + + + + | Arden Terrazas | ECON | Unknown | | + + + + + Care Team Providers + +------+ + | Care Manager Of Network Name | Role | Phone | + +------+ + | Crissy Santoyo PA-C | PCP | | + +------+ + Encounter Details +--------+ + + + + | Date | Type | Department | Care Team | Description | +--------+ + + + + | 04/17/ | Telephone | [facility] | Saurabh Rosales I, | | | 2013 | | Pain Center at | MD [address] | | | | | [facility] | [facility] | | | | | [address] | [place], [place] | | | | | [facility] | [address] | | | | | and Vi, | [phone] | | | | | [facility] | | | | | | Floor [place], [place] | | | | | | [address] | | | | | | [phone] | | | +--------+ + + + [...]
--- OUTSIDE RECORDS SUMMARY | ~2019-10-16 | XMS | Encounter Summary ---
Demographics + + + | Address | [address] | | | [place] [address] | + + + | Home Phone | | + + + | Preferred Language | Unknown | + + + | Marital Status | | + + + | Evangelical Affiliation | PRE | + + + | Race | White | + + + | Ethnic Group | Not or | + + + Author + + + | Author | [facility] | + + + | Organization | [facility] | + + + | [...] #[place] | | | | | [address] | | + + + + + | Bebe Terrazas | ECON | Unknown | Unavailable | + + + + + | Arden Terrazas | ECON | Unknown | | + + + + + Care Team Providers + +------+ + | Care Director Of Student Financial Services Name | Role | Phone | + [...] | | syndrome | | [facility]ie [facility] | | | | | Procedures | | [facility], | | | | | CT SPINE | | 10th Floor | | | | | LUMBAR WO | | [place], [place] | | | | | CONTRAST | | [address] | | | | | | | Phone: | | | | | | | [phone] | | | | | | | Fax: | | | | | | | [phone] | +--------+--------+ + + + + Reason [...] | | | LUMBAR WO | | [place], [place] | | | | | CONTRAST | | [address] | | | | | | | Phone: | | | | | | | [phone] | | | | | | | Fax: | | | | | | | [phone] | +--------+--------+ + + + + Encounter Details +--------+ + + + + | Date | Type | Department | Care Team | Description | +--------+ + + + + | 10/02/ | Hospital | Diagnostic Imaging | | | | 2012 | Encounter | Services at [facility] | | | | | | [address] | | | | | | Sadie Granados [facility] | | | | | | [facility], 10th Floor | | | | | | [place], [place] | | | | | | [address] | | | | | | [phone] | | | +--------+ + + + [...] | | + +---------+ + + | [facility] DEPARTMENT OF | | | | | RADIOLOGY | | | | + +---------+ + + documented in this encounter Visit Diagnoses + + | Diagnosis | + + | 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
--- OUTSIDE RECORDS SUMMARY | ~2019-10-16 | XMS | Encounter Summary ---
Demographics + + + | Address | [address] | | | [place] [address] | + + + | Home Phone | | + + + | Preferred Language | Unknown | + + + | Marital Status | | + + + | Moravian Affiliation | PRE | + + + [...] #[place] | | | | | [address] | | + + + + + | Bebe Terrazas | ECON | Unknown | Unavailable | + + + + + | Arden Terrazas | ECON | Unknown | | + + + + + Care Team Providers + +------+ + | Care Area Supervisor Name | Role | Phone | [...] + + | 09/15/ | Telephone-S | [facility] Primary Care | Yuriy Cardenas, | Diabetes mellitus; | | 2019 | cheduled | at [place] [address] | [place]-C [address] | Cough; Chronic pain | | | | [address] | [address] | | | | | [place], [place] | [place], [place] | | | | | [address] | [address] | | | | | [phone] | [phone] | | | | | | | [...] testing because numbers of patients high in [facility]. She is on oxygen most of the [...] better, but due to being stuck in [place] right now we are not able to do labs in clinic. I will order labs and have sent to [facility] so she can get drawn. [...]
--- OUTSIDE RECORDS SUMMARY | ~2019-10-16 | XMS | Encounter Summary ---
Demographics + + + | Address | [address] | | | [place] [address] | + + + | Home Phone | | + + + | Preferred Language | Unknown | + + + | Marital Status | | + + + | Mandaen Affiliation | 1013 | + + + | Race | Unknown | + + + | Ethnic Group | Unknown | + + + Author + + + | Author | [facility] | | | and Juan Joséana | + + + | Organization | [facility] | [...] [place] | | | | | [address] | | + + + + + | Bebe Merino | ECON | [address] | | | | | [place], [place] | | | | | [address] | | + + + + + Care Team Providers + +------+ + | Care Seed Corn Manager Production Name | Role | Phone | + +------+ + | Ki Senior NP | PCP | | + +------+ + Encounter Details +--------+ + + + + | Date | Type | Department | Care Team | Description | +--------+ + + + + | // | Hospital | [facility] | Conversion | S/P thoracotomy; | | 2018 | Encounter | [facility]RAY | Transaction, | Malignant neoplasm | | | | [address] | Provider Unknown | of lower lobe of | | | | [place], [place] | [phone] | left lung (HCC) | | | | [address] | | | | | | [phone] | [place] | | | | | | [address] | | | | | | [place], [place] | | | | | | [address] | | | | | | | [...] + + | insulin aspart | Inject 10 Units into | | 0 | 07/03/19 | | | (NOVOLOG FLEXPEN) | the skin 3 (three) | | | 18 | | | 100 units/mL | times daily before | | | | | | injection pen | meals. With meals | | | | | + + [...] + + | insulin detemir | Inject 40 Units into | | 0 | 07/03/19 | | | (LEVEMIR) 100 | the skin nightly. | | | 18 | | | units/mL injection | | | | | | | [...] + + +---------+ + + | insulin lispro | Inject 0-7 Units | | 0 | 07/03/19 | | | (HUMALOG) 100 | into the skin | | | 18 | | | units/mL injection | Nightly. High Dose | | | | | | (vial) | HS Insulin Sliding | | | | | | | ScaleBlood Glucose | | | | | | | High DoseLess than | | | | | | | 70Initiate | | | | | | | Hypoglycemia | | | | | | | [id number] | | | | | | | 0 [id number] | | | | | | | [id number] | | | | | | | [id number] | | | | | | | [id number] | | | | | | | Fpzif772-2777 | | | | | | | [id number] | | | | | | | Units>400* 7 | | | | | | | Units | | | | | + + [...] tablet under | 20 | 0 | //20 | | | (NITROSTAT) 0.4 mg | the tongue every 5 | tablet | | 17 | | | SL tablet | minutes as needed | | | | | | | for Chest pain. | | | | | + + + +---------+ + + | oxyCODONE | Take 1 tablet by | | 0 | 07/10/19 | | | (ROXICODONE) 15 mg | mouth every 6 (six) | | | 18 | | | immediate release | hours as needed for | | | | | | tablet | Pain (6 to 7). | | | | | + + + +---------+ + + | oxyCODONE 10 MG | Take 10 mg by mouth | | 0 | | | | TABS | every 6 hours as | | | | | | | needed for Pain. | | | | | + + + +---------+ + + | potassium chloride | Take 2 tablets by | | 0 | 07/03/19 | | | (KLOR-CON) 10 MEQ | mouth 2 times per | | | 18 | | | ER tablet | day for first 3 | | | | | | | days, then 1 tablet | | | | | | | by mouth 2 times per | | | | | | | day for the next 3 | | | | | | | days then stop | | | | | + + [...] + + + +---------+ + + | traMADol (ULTRAM) | Take 1 tablet by | | 0 | 07/03/19 | | | 50 mg tablet | mouth every 4 (four) | | | 18 | | | | hours as needed. | | | | | + + [...] XR CHEST 2 VIEWS | Routin | 07/09/2017 | | Results for this | | | e | 1:05 PM | | procedure are in the | | | | PDT | | results section. | + +--------+ + + + documented in this encounter Results XR Chest 2 Vws (07/09/2017 1:05 PM PDT) + + | Specimen | + + | | + + + + + | Impressions | Performed At | + + + | 1. Status post left lower lobectomy. 2. Volume loss of the left | | | hemithorax. Small to moderate left pleural effusion and partial | | | atelectasis of left upper lobe, improved as compared to radiographs | | | dated 07/02/2017. 3. Compensatory overinflation of the right lung. | | | 4. Pulmonary venous congestion. | | + + + + + + | Narrative | Performed At | + + + | [facility] XR CHEST 2 VIEW FRONTAL AND LATERAL 07/09/2017 1:05 | | | PM HISTORY: 46 years. Female. Status post thoracotomy and | | | lobectomy. TECHNIQUE: XR CHEST 2 VIEW FRONTAL AND LATERAL. 2 | | | view(s) obtained. COMPARISON: 07/02/2017. FINDINGS: Normal | | | cardiac size. There is volume loss of the left hemithorax with | | | mediastinal shift to the left side. Left basilar opacity with | | | obscuration of left diaphragm and left costophrenic sulcus. Hazy | | | opacity throughout the left lung. Mild pulmonary venous congestion | | | in right lung. No right pleural effusion or pneumothorax. Mild | | | thoracic spondylosis. Postsurgical changes in lumbar spine, | | | incompletely evaluated. Cholecystectomy clips. | | + + + + + | Procedure Note | + + | Meir, Rad Conversion - 10/15/2018 11:00 AM ROGE NOBLE CHEST 2 VIEW FRONTAL | | AND LATERAL07/09/2017 1:05 PM HISTORY:46 years. Female. Status post thoracotomy and | | lobectomy. TECHNIQUE:XR CHEST 2 VIEW FRONTAL AND LATERAL. 2 view(s) obtained. | | COMPARISON:07/02/2017. FINDINGS:Normal cardiac size. There is volume loss of the left | | hemithorax with mediastinal shift to the left side. Left basilar opacity with | | obscuration of left diaphragm and left costophrenic sulcus. Hazy opacity throughout the | | left lung. Mild pulmonary venous congestion in right lung. No right pleural effusion or | | pneumothorax. Mild thoracic spondylosis. Postsurgical changes in lumbar spine, | | incompletely evaluated. Cholecystectomy clips. IMPRESSION: 1. Status post left lower | | lobectomy.2. Volume loss of the left hemithorax. Small to moderate left pleural | | effusion and partial atelectasis of left upper lobe, improved as compared to radiographs | | dated 07/02/2017.3. Compensatory overinflation of the right lung.4. Pulmonary venous | | congestion. | |FINDINGS: | |Normal cardiac size. There is volume loss of the left hemithorax with mediastinal shift to the left side. Left basilar opacity with obscuration of left diaphragm and left costophrenic sulcus. Hazy opacity throughout | |the left lung. Mild pulmonary venous | |congestion in right lung. No right pleural effusion or pneumothorax. | | | |Mild thoracic spondylosis. Postsurgical changes in lumbar spine, incompletely evaluated. Ch olecystectomy clips. | | | |IMPRESSION: | |1. Status post left lower lobectomy. | |2. Volume loss of the left hemithorax. Small to moderate left pleural effusion and partial atelectasis of left upper lobe, improved as compared to radiographs dated 07/02/2017. | |3. Compensatory overinflation of the right lung. | |4. Pulmonary venous congestion. | | | | | + + documented in this encounter Visit Diagnoses + + | Diagnosis | + + | S/P thoracotomy Other postprocedural status | + + | Malignant neoplasm of lower lobe of left lung (HCC) | + + documented in this encounter"
--- OUTSIDE RECORDS SUMMARY | ~2019-10-16 | XMS | Encounter Summary ---
Demographics + + + | Address | [address] [facility] [address] | | | [place] [address] | + + + | Home Phone | | + + + | Preferred Language | Unknown | + + + | Marital Status | | + + + | Quaker Affiliation | 1013 | + + + | Race | Unknown | + + + | Ethnic Group | Unknown | + + + Author + + + | Author | [facility] | | | and Juan Joséana | + + + | Organization | [facility] | | | and [place] | + + + | Address | Unknown | + + + | Phone | Unavailable | + + + Support + + + + + | Name | Relationship | Address | Phone | + + + + + | Dustin Merino | ECON | [place] | | | | | [address] | | + + + + + | Bebe Merino | ECON | [address] | | | | [place], [place] | | | | | [address] | | + + + + + Care Team Providers + +------+ + | Care Baker Chef Name | Role | Phone | + +------+ + | Ki Senior NP | PCP | | + +------+ + Encounter Details +--------+ + + + + | Date | Type | Department | Care Team | Description | +--------+ + + + + | 04/25/ | Hospital | [facility] | Conversion | Cavitary lesion of | | 2018 | Encounter | [facility]ICAL [facility]ENTER | Transaction, | lung | | | | CLINICAL DECISION | Provider Unknown | | | | | [address] [facility] | [phone] | | | | | [place], [place] | | | | | | [address] | Jocelyn Rojas | | | | | [phone] | MD [address] | | | | | | [address] | | | | | | [place] [address] | | | | | | [phone] | | | | | | | [...] tablet under | 20 | 0 | 02/15/20 | | | (NITROSTAT) 0.4 mg | [...] documented as of this encounter Progress Notes Ender Transaction, Provider Unknown - 04/25/2017 3:12 PM PSTFormatting of this note m ight be different from the original. Nurse Progress Note by Nina Szymanski RN at 04/25/171511 Author: Nina Szymanski RN Service: (none) Author Type: Registered Nurse Filed: 04/25/171511 Date of Service: 04/25/171511 Status: Signed Instructor Business Education: Nina Szymanski RN (Registered Nurse) Pt discharge instructions reviewed including follow-up appointments, medications, prescript ions, activity, diet, smoking cessation, and signs and symptoms to watch for and when to alex l the doctor. Verbalized understanding. IV discontinued cannula intact. Pt rides wheelcha ir to private vehicle to discharge home with adult escort and all belongings. docume nted in this encounter Procedure Notes Simon Espinal MD - 04/25/2017 9:45 AM PSTFormatting of this note might be different f rom the original. Procedures by Simon Espinal MD at 04/25/17944 Author: Simon Espinal MD Service: Radiology Author Type: Physician Filed: 04/25/17946 Date of Service: 04/25/17944 Status: Signed Instructor Business Education: Simon Espinal MD (Physician) [facility] Service: Radiology Sedation Note See separate procedure note as indicated. Sedation type: Moderate Indications for procedural sedation: Pain and anxiety Last meal: Last evening at 1800 hr. Moderate Sedation Presedation Assessment completed immediately prior to procedure. ASA Classification: ASA 2: Patient with a mild systemic disease Mallampati Classification: I: Full visibility of tonsils, uvula and soft palate Preparation: Plan explained to: patient Consent signed: yes Oximetry: yes Capnometry: yes IV access: yes Suction: yes personnel monitor: no Heart sounds: regular in rhythm and rate Lung sounds: good air movement, no wheeze Sedation agent(s) used: Versed, Fentanyl I personally supervised: sedation and procedure(s). Total sedation time: See nurse's notes for total time. SIMON ESPINAL MD 04/25/2017 documented in this encounter Plan of Treatment Not on filedocumented as of this encounter Procedures + +--------+ + + + | Procedure Name | Priori | Date/Time | Associated Diagnosis | Comments | | | ty | | | | + +--------+ + + + | XR CHEST INSPIRATION | Routin | 04/25/2017 | | Results for this | | AND EXPIRATION | e | 11:50 AM | | procedure are in the | | | | PST | | results section. | + +--------+ + + + | CT GUIDED BIOPSY | Routin | 04/25/2017 | | Results for this | | LUNG OR MEDIASTINUM | e | 10:35 AM | | procedure are in the | | | | PST | | results section. | + +--------+ + + + | CULTURE, AFB, AND | Routin | 04/25/2017 | | Results for this | | SMEAR | e | 10:30 AM | | procedure are in the | | | | PST | | results section. | + +--------+ + + + | CULTURE, TISSUE, | Routin | 04/25/2017 | | Results for this | | SMEAR, WITH | e | 10:30 AM | | procedure are in the | | ANAEROBES | | PST | | results section. | + +--------+ + + + | PTT | Routin | 04/25/2017 | | Results for this | | | e | 8:39 AM | | procedure are in the | | | | PST | | results section. | + +--------+ + + + | PROTIME INR | Routin | 04/25/2017 | | Results for this | | | e | 8:39 AM | | procedure are in the | | | | PST | | results section. | + +--------+ + + + | PLATELET COUNT | Routin | 04/25/2017 | | Results for this | | | e | 8:39 AM | | procedure are in the | | | | PST | | results section. | + +--------+ + + + | TISSUE REQUEST FOR | Routin | 04/25/2017 | | Results for this | | PATHOLOGY (NON-ORD) | e | 12:00 AM | | procedure are in the | | | | PST | | results section. | + +--------+ + + + documented in this encounter Results XR Chest Inspiration and Expiration (04/25/2017 11:50 AM PST) + + | Specimen | + + | | + + + + + | Impressions | Performed At | + + + | 1. Status post biopsy of left lower lobe pulmonary nodule. Trace | | | left pneumothorax. 2. Mild diffuse bronchial wall thickening, can | | | indicate COPD or bronchitis. | | + + + + + + | Narrative | Performed At | + + + | [facility] XR CHEST INSPIRATION/EXPIRATION 04/25/2017 11:50 | | | AM HISTORY: 46 years. Female. Postbiopsy. TECHNIQUE: XR | | | CHEST INSPIRATION/EXPIRATION. 2 view(s) obtained. COMPARISON: | | | CT from earlier the same day. FINDINGS: Status post biopsy of | | | left lower lobe pulmonary nodule, better evaluated on PET/CT dated | | | 04/09/2017. Trace left pneumothorax. Mild diffuse bronchial wall | | | thickening. No pleural effusion. Mild aortic atherosclerosis. No acute | | | osseous abnormality. | | + + + + + | Procedure Note | + + | Meir, Rad Conversion - 10/15/2018 11:00 AM PDT MARY NOBLE CHEST | | INSPIRATION/EXPIRATION04/25/2017 11:50 AM HISTORY:46 years. Female. Postbiopsy. | | TECHNIQUE:XR CHEST INSPIRATION/EXPIRATION. 2 view(s) obtained. COMPARISON:CT from | | earlier the same day. FINDINGS:Status post biopsy of left lower lobe pulmonary nodule, | | better evaluated on PET/CT dated 04/09/2017. Trace left pneumothorax. Mild diffuse | | bronchial wall thickening. No pleural effusion. Mild aortic atherosclerosis. No acute | | osseous abnormality. IMPRESSION: 1. Status post biopsy of left lower lobe pulmonary | | nodule. Trace left pneumothorax.2. Mild diffuse bronchial wall thickening, can indicate | | COPD or bronchitis. | | | |COMPARISON: | |CT from earlier the same day. | | | |FINDINGS: | |Status post biopsy of left lower lobe pulmonary nodule, better evaluated on PET/CT dated 04/09/2017. Trace left pneumothorax. Mild diffuse bronchial wall thickening. No pleural effusion . Mild aortic atherosclerosis. No acute osseous abnormality. | | | |IMPRESSION: | |1. Status post biopsy of left lower lobe pulmonary nodule. Trace left pneumothorax. | |2. Mild diffuse bronchial wall thickening, can indicate COPD or bronchitis. | | | | | + + CT Guided Biopsy Lung Or Mediastinum (04/25/2017 10:35 AM PST) + + | Specimen | + + | | + + + + + | Narrative | Performed At | + + + | MARY MERINO 1970 [address] NEEDLE BIOPSY LUNG | | | 04/25/2017 10:35 AM HISTORY: 46 years. Female. Noted to have | | | a cavitary lesion superior segment left lower lobe on recent PET scan | | | COMPARISON: Prior CT scan 03/01/2017. DESCRIPTION OF | | | PROCEDURE: Written informed consent was obtained. A timeout was | | | performed. Where and as appropriate, marking of side and/or site | | | upon the patient was directly performed by the physician performing | | | the procedure, antecedent to both imaging and intervention Patient | | | positioning: Prone. Axial upper shaper images were obtained through region | | | of interest with a skin marker grid. A skin site was selected and | | | marked. The skin was then prepped and draped in the usual sterile | | | fashion and anesthetized with 1% lidocaine buffered with sodium | | | bicarbonate. Subsequently, an 19-gauge "short throw" Bard core | | | biopsy guide needle was advanced using CT guidance until satisfactory | | | needle tip position was achieved. 4 core biopsy sample(s) obtained, | | | placed on a saline soaked Telfa pad and given to the on-call | | | pathologist for review. He reports that sample contains numerous sites | | | and inflammatory cells interest for additional tissue and culture and | | | sensitivity. Total of 3 samples were taken and placed in saline for | | | culture. Before the guide needle was removed, a Gelfoam slurry was | | | injected along the needle tract. A limited set of axial images were | | | then obtained through the area biopsied. The patient tolerated the | | | procedure well. COMPLICATIONS: There were no immediate | | | complications. MEDICATIONS: I.V. conscious sedation was | | | supervised by Dr. Espinal using Versed and Fentanyl for 45 minutes. | | | Using automated blood pressure, EKG and pulse oximetry, the patient | | | was independently monitored by a radiology nurse certified to give | | | conscious sedation. There were no sedation complications. ?Dose | | | reduction techniques were used including automated exposure control | | | (AEC), iterative reconstruction technique, and/or mA and/or kV dose | | | adjustments based on patient size? IMPRESSION AND PLAN: 1. | | | Successful CT core needle biopsy of left lower lobe. 2. A chest | | | x-ray will be obtained in two hours. 3. The patient will be | | | observed for 2 hours and then will be discharged home if | | | hemodynamically stable. | | + + + + + | Procedure Note | + + | Meir, Rad Conversion - 10/15/2018 11:00 AM PDT MARY CHARLESI1970 46 years | | FemaleCT NEEDLE BIOPSY LUNG04/25/2017 10:35 AM HISTORY: 46 years. Female. Noted to | | have a cavitary lesion superior segment left lower lobe on recent PET scan COMPARISON: | | Prior CT scan 03/01/2017. DESCRIPTION OF PROCEDURE:Written informed consent was | | obtained. A timeout was performed. Where and as appropriate, marking of side and/or | | site upon the patient was directly performed by the physician performing the procedure, | | antecedent to both imaging and intervention Patient positioning: Prone.Axial upper shaper | | images were obtained through region of interest with a skin marker grid. A skin site | | was selected and marked. The skin was then prepped and draped in the usual sterile | | fashion and anesthetized with 1% lidocaine buffered with sodium bicarbonate. | | Subsequently, an 19-gauge "short throw" Bard core biopsy guide needle was advanced using | | CT guidance until satisfactory needle tip position was achieved. 4 core biopsy | | sample(s) obtained, placed on a saline soaked Telfa pad and given to the on-call | | pathologist for review. He reports that sample contains numerous sites and inflammatory | | cells interest for additional tissue and culture and sensitivity. Total of 3 samples | | were taken and placed in saline for culture. Before the guide needle was removed, a | | Gelfoam slurry was injected along the needle tract. A limited set of axial images were | | then obtained through the area biopsied. The patient tolerated the procedure well. | | COMPLICATIONS:There were no immediate complications. MEDICATIONS:I.V. conscious sedation | | was supervised by Dr. Espinal using Versed and Fentanyl for 45 minutes. Using | | automated blood pressure, EKG and pulse oximetry, the patient was independently | | monitored by a radiology nurse certified to give conscious sedation. There were no | | sedation complications. ?Dose reduction techniques were used including automated | | exposure control (AEC), iterative reconstruction technique, and/or mA and/or kV dose | | adjustments based on patient size? IMPRESSION AND PLAN:1. Successful CT core needle | | biopsy of left lower lobe.2. A chest x-ray will be obtained in two hours.3. The | | patient will be observed for 2 hours and then will be discharged home if hemodynamically | | stable. | | | |IMPRESSION AND PLAN: | |1. Successful CT core needle biopsy of left lower lobe. | |2. A chest x-ray will be obtained in two hours. | |3. The patient will be observed for 2 hours and then will be discharged home if hemodynami azire stable. | | | | | + + Culture, AFB, and Smear (04/25/2017 10:30 AM PST) + + | Specimen | + + | | + + + + + | Narrative | Performed At | + + + | Specimen Description LUNG AFB STAIN | EXTERNAL LAB | | NO ACID FAST BACILLI SEEN | | | CULTURE NO ACID FAST BACILLI | | | ISOLATED | | + + + + +---------+ + + | Performing | Address | City/State/Zipcode | Phone Number | | Organization | | | | + +---------+ + + | EXTERNAL LAB | | | | + +---------+ + + Culture, Tissue, Smear, with Anaerobes (04/25/2017 10:30 AM PST) + + | Specimen | + + | | + + + + + | Narrative | Performed At | + + + | Specimen Description LUNG GRAM STAIN | EXTERNAL LAB | | NO CELLS OR ORGANISMS SEEN | | | CULTURE NO GROWTH 4 DAYS | | + + + + +---------+ + + | Performing | Address | City/State/Zipcode | Phone Number | | Organization | | | | + +---------+ + + | EXTERNAL LAB | | | | + +---------+ + + PTT (04/25/2017 8:39 AM PST) + + + + + + | Component | Value | Ref Range | Performed | Pathologist | | | | | At | Signature | + + + + + + | aPTT, | 25Comment: Testing | 23 - 32 seconds | EXTERNAL | | | Patient | performed at [facility] | | LAB | | | | [address];[place] | | | | | | [address] | | | | + + + + + + + + | Specimen | + + | Blood specimen | | (specimen) | + + + +---------+ + + | Performing | Address | City/State/Zipcode | Phone Number | | Organization | | | | + +---------+ + + | EXTERNAL LAB | | | | + +---------+ + + Protime INR (04/25/2017 8:39 AM PST) + + + + + + | Component | Value | Ref Range | Performed | Pathologist | | | | | At | Signature | + + + + + + | INR | 1.0Comment: REFERENCE | | EXTERNAL | | | | RANGE:0.9 - 1.2 | | LAB | | | | NON-ANTICOAGULATED2.0 | | | | | | - 3.0 ALL OTHER | | | | | | THERAPEUTIC | | | | | | INDICATIONS2.5 - 3.5 | | | | | | MECHANICAL HEART VALVES, | | | | | | RECURRENT OR SYSTEMIC | | | | | | EMBOLISMTesting | | | | | | performed at [facility] | | | | | | [facility];[place], [place] | | | | | | [address] | | | | + + + + + + + + | Specimen | + + | Blood specimen | | (specimen) | + + + +---------+ + + | Performing | Address | City/State/Zipcode | Phone Number | | Organization | | | | + +---------+ + + | EXTERNAL LAB | | | | + +---------+ + + Platelet Count (04/25/2017 8:39 AM PST) + + + + + + | Component | Value | Ref Range | Performed | Pathologist | | | | | At | Signature | + + + + + + | Platelet | 285Comment: Testing | 150 - 400 K/uL | EXTERNAL | | | Count | performed at [facility];[address] | | LAB | | | Plasma | [address];[place], [place] | | | | | | [address] | | | | + + + + + + + + | Specimen | + + | Blood specimen | | (specimen) | + + + +---------+ + + | Performing | Address | City/State/Zipcode | Phone Number | | Organization | | | | + +---------+ + + | EXTERNAL LAB | | | | + +---------+ + + Tissue Request For Pathology (04/25/2017 12:00 AM PST) + + | Specimen | + + | Soft tissue sample | | (specimen) | + + + + + | Narrative | Performed At | + + + | THIS IS AN ADDENDUM REPORT SPECIMEN(S): A Lt. LOWER LOBE | EXTERNAL LAB | | LUNG MASS SPECIMEN SOURCE: A. Lt. LOWER LOBE LUNG MASS CLINICAL | | | HISTORY: 04/25/2017 at 1030 H. No clinical history given. FINAL | | | PATHOLOGIC DIAGNOSIS: Left lower lobe lung mass, CT- guided needle | | | core biopsies: -Positive for malignant cells | | | | | | well-differentiated adenocarcinoma. See comment. COMMENT: The | | | provided clinical history of a left upper lobe pleural-based mass that | | | is suspicious for malignancy is noted. The biopsies are very small, | | | but foci of well-differentiated adenocarcinoma with mucinous features | | | are present throughout. Because of the limited volume of tumor tissue | | | available, immunostains will not be performed. Instead, blocks A1 and | | | A2 will be sent for PD-L1 testing, as well as EGFR with reflux to | | | ALK and ROS1 and BRAF. Those results will be reported by addendum. | | | As part of the [employer] Program, this case was reviewed by | | | another member of [employer] ([employer]). AMB:rds:C1NR GROSS | | | DESCRIPTION: One specimen is received in one container, labeled with | | | the patient's name: A. Received fresh for intraoperative consult | | | designated "left lower lobe lung mass, per requisition", consists of 5 | | | pink-white needle core tissue fragments range in length from 0.1 cm | | | up to 0.4 cm and have an average diameter of 0.1 cm. The specimen is | | | entirely submitted in cassettes A1-A4. FM The gross description | | | section of this report has been prepared using a voice recognition | | | system. The report was reviewed for accuracy, however, sound-alike | | | word errors, addition and/or deletions may occur. If there is any | | | question about this report please contact the originating pathologist. | | | Intraprocedural Cytologic Examination (I.C.E.) The | | | pathologist performed an Intraprocedural Cytologic Exam [I.C.E.] | | | ([id number], [id number]) The patient's name, date, specimen site were | | | confirmed at time of collection. Core # Slides | | | [facility] or [facility] Pathologist | | | Notes 1 1 1 | | | Cytologic Exam | | | Pathologist Name: Dr. Oconnor I.C.E. Evaluation Episodes: 1 | | | Number of Lesions: 1 MICROSCOPIC EXAMINATION: Histologic sections | | | of all submitted blocks are examined by light microscopy. These | | | findings, together with the gross examination, support the pathologic | | | diagnosis. PERFORMING LABORATORY: Professional interpretation and | | | technical preparation was performed by [facility], [facility] | | | [address] [address] | | | (Pulp Making Plant Operator: Sharan Oconnor M.D.; [facility]#: [id number]). | | | REASON FOR ADDENDUM: To add PD-L1 results. MALIGNANT NEOPLASM OF | | | LOWER LOBE, LEFT BRONCHUS OR LUNG PD-L1 22C3 FDA (KEYTRUDA): | | | NO EXPRESSION Tumor Proportion Score: 0% Intensity: | | | 0 ADDENDUM COMMENT: This case was interpreted at | | | [facility] in [place], [place] by Clyde Caban M.D., Ph.D. Their report | | | (#[id number]) is filed electronically within the [facility] computer | | | system. Please see their report for complete details. AMB:banner REASON | | | FOR ADDENDUM: Add results of additional testing. MALIGNANT | | | NEOPLASM OF LOWER LOBE, LEFT BRONCHUS OR LUNG TEST: EGFR MUTATION | | | ANALYSIS Results: Test Result EGFR Mutation Not Detected | | | EGFR Exon 18 Not Detected EGFR Exon 19 Not | | | Detected EGFR Exon 20 Not Detected EGFR Exon 21 | | | Not Detected Notes: EGFR Mutation | | | | | | No mutations were detected in EGFR exons 18-21. There is no evidence | | | of EGFR T790M mutation using our high sensitivity assay. Add results | | | from [facility] (BRAF) MALIGNANT NEOPLASM OF LOWER LOBE, LEFT | | | BRONCHUS OR LUNG TEST: - BRAF Mutation RESULT: - Not | | | Detected ADDENDUM COMMENT: This case was interpreted at [facility] | | | in [place], [place] by Drea Melgoza MD. Their report (#[id number]) is | | | filed electronically within the [employer] system and can be | | | accessed via the Media tab in [employer]. Please see their report for | | | complete details. AMB:[facility] This case was interpreted at [facility] in | | | [place], [place] by Drea Melgoza MD. Their report (#[id number]) is | | | filed electronically within the [employer] system and can be | | | accessed via the [employer] tab in [employer]. Please see their report for | | | complete details. AMB:emb REASON FOR ADDENDUM: To add ALK Lung FISH | | | Analysis results. MALIGNANT NEOPLASM OF LOWER LOBE, LEFT BRONCHUS | | | OR LUNG TEST: ALK Lung RESULTS: Negative To add | | | ROS1 FISH Analysis results. MALIGNANT NEOPLASM OF LOWER LOBE, LEFT | | | BRONCHUS OR LUNG TEST: ROS1 RESULTS: Negative | | | ADDENDUM COMMENT: This case was interpreted at [facility] in [place], | | | [place] by Alfred Higgins M.D., Ph.D. Their report (#[id number]) is | | | filed electronically within the [employer] system. Please see | | | their report for complete details. AMB:rr This case was interpreted | | | at [facility] in [place], [place] by Alfred Higgins M.D., Ph.D. Their | | | report (#[id number]) is filed electronically within the [employer] | | computer system. Please see their report for complete details. | | | AMB:banner REASON FOR ADDENDUM: Add outside consultation. ADDENDUM | | | COMMENT: This case was reviewed at [facility] by Eliazar Leos MD, PhD. | | | Their report ([id number]) is filed electronically within the [employer] | | computer system and can be accessed via the Media tab in [employer]. Please | | | see their report for complete details. The outside consultation | | | supports the above diagnosis. AMB:angie Diagnostician: Melissa Herrera | | | Pathologist Electronically Signed 07/11/2017 | | + + + + +---------+ + + | Performing | Address | City/[facility] | Phone Number | | Organization | | | | + +---------+ + + | EXTERNAL LAB | | | | + +---------+ + + documented in this encounter Visit Diagnoses + + | Diagnosis | + + | Cavitary lesion of lung Other diseases of lung, not elsewhere classified | + + documented in this encounter
--- OUTSIDE RECORDS SUMMARY | ~2019-10-16 | XMS | Encounter Summary ---
Demographics + + + | Address | [address] [facility] [address] | | | [place] [address] | + + + | Home Phone | | + + + | Preferred Language | Unknown | + + + | Marital Status | | + + + | Hinduism Affiliation | 1013 | + + + | Race | Unknown | + + + | Ethnic Group | Unknown | + + + Author + + + | Author | [facility] | | | and [place] José[place] | + + + | Organization | [facility] | | | and [place] | + + + | Address | Unknown | + + + | Phone | Unavailable | + + + Support + + + + + | Name | Relationship | Address | Phone | + + + + + | Dustin Terrazas | ECON | [place] | | | | | [address] | | + + + + + | Bebe Terrazas | ECON | [address] | | | | [place], [place] | | | | | [address] | | + + + + + Care Team Providers + +------+ + | Care Wildlife Officer Name | Role | Phone | + +------+ + | Ki Senior NP | PCP | | + +------+ + Encounter Details +--------+ + + + + | Date | Type | Department | Care Team | Description | +--------+ + + + + | 05/20/ | Hospital | [facility] | Conversion | Malignant neoplasm | | 2018 | Encounter | [facility] | Transaction, | of lower lobe of | | | | [address] | Provider Unknown | left lung (HCC); | | | | [place], [place] | | Bone lesion | | | | [address] | (Fax) | | | | | [phone] | | | +--------+ + + + [...] +---------+ + + | metFORMIN | Take / tab by | | 0 | 10/25/19 [...] + +--------+ + + + | MRI THORACIC SPINE W | Routin | 05/20/2017 | | Results for this | | WO CONTRAST | e | 7:03 PM | | procedure are in the | | | | PDT | | results section. | + +--------+ + + + documented in this encounter Results MRI Thoracic Spine w wo Contrast (05/20/2017 7:03 PM PDT) + + | Specimen | + + | | + + + + + | Impressions | Performed At | + + + | 1. The oval 10 mm sclerotic lesion to the left of midline in T12 | | | is T2 dark, unaccompanied by abnormal enhancement-highly doubtful for | | | metastasis 2. Known pulmonary lesion in the medial posterior left | | | lung-see dedicated pulmonary imaging for details 3. Postoperative | | | changes of lumbar spine with significant degenerative changes and | | | posterior seroma or fluid collection from L3 through L5, not fully | | | evaluated here | | + + + + + + | Narrative | Performed At | + + + | HISTORY: 46 year-old female, lung malignancy with indeterminate | | | non-FDG avid sclerotic lesion at T12 TECHNIQUE: 1. MR | | | evaluation of the thoracic spine Prior study for review : | | | PET/CT from 09 April 2017 FINDINGS: The 10 mm oval sclerotic | | | lesion in T12 to left of midline on image 142 series 4 the PET/CT is | | | T2 dark on image 20 series 10, without evidence of abnormal | | | enhancement and seen well only on axial images. As numbered from | | | C2 this faint finding is in the T12 vertebral body. There are 7 | | | cervical, 12 thoracic and 5 lumbar vertebral bodies. On the lumbar | | | press operator notation made of significant postoperative changes of the | | | lumbar spine and dorsal decompression with what may be a seroma or | | | fluid collection behind the spinal canal on image 8 series 4 | | | Paraspinal soft tissues, no lymphadenopathy, abnormal enhancement or | | | mass. There is a known enhancing mass postbiopsy in the medial | | | posterior left lung on image [address] scan results for | | | details there but the lesion on this examination measures about 2.5 | | | cm. This modality will not be appropriate for pulmonary mapping of | | | disease CORD: Normal in signal texture and structure. Without | | | evidence of abnormal enhancement of the cord or dura. No mass | | | BONE: No other potential or aggressive skeletal lesions. Disc: No | | | evidence of infectious or inflammatory discitis with posterior bulge | | | of the desiccated disc at T12-L1 of a few millimeters and subtle | | | bulges above this, but without evidence of high-grade disease or | | | discitis. Some anterior osteophytosis of the lower thoracic spine is | | | multilevel and uniform | | + + + + + | Procedure Note | + + | Meir, Rad Conversion - 10/15/2018 11:00 AM PDT HISTORY: 46 year-old female, lung | | malignancy with indeterminate non-FDG avid sclerotic lesion at T12 TECHNIQUE: 1. MR | | evaluation of the thoracic spine Prior study for review : PET/CT from 09 April 2017 | | FINDINGS: The 10 mm oval sclerotic lesion in T12 to left of midline on image 142 series | | 4 the PET/CT is T2 dark on image 20 series 10, without evidence of abnormal enhancement | | and seen well only on axial images. As numbered from C2 this faint finding is in the T12 | | vertebral body. There are 7 cervical, 12 thoracic and 5 lumbar vertebral bodies. On the | | lumbar press operator notation made of significant postoperative changes of the lumbar spine and | | dorsal decompression with what may be a seroma or fluid collection behind the spinal | | canal on image 8 series 4 Paraspinal soft tissues, no lymphadenopathy, abnormal | | enhancement or mass. There is a known enhancing mass postbiopsy in the medial posterior | | left lung on image [address] scan results for details there but the lesion on | | this examination measures about 2.5 cm. This modality will not be appropriate for | | pulmonary mapping of disease CORD: Normal in signal texture and structure. Without | | evidence of abnormal enhancement of the cord or dura. No mass BONE: No other potential | | or aggressive skeletal lesions. Disc: No evidence of infectious or inflammatory discitis | | with posterior bulge of the desiccated disc at T12-L1 of a few millimeters and subtle | | bulges above this, but without evidence of high-grade disease or discitis. Some anterior | | osteophytosis of the lower thoracic spine is multilevel and uniform IMPRESSION: 1. The | | oval 10 mm sclerotic lesion to the left of midline in T12 is T2 dark, unaccompanied by | | abnormal enhancement-highly doubtful for metastasis 2. Known pulmonary lesion in the | | medial posterior left lung-see dedicated pulmonary imaging for details 3. Postoperative | | changes of lumbar spine with significant degenerative changes and posterior seroma or | | fluid collection from L3 through L5, not fully evaluated here | | | |Disc: No evidence of infectious or inflammatory discitis with posterior bulge of the desicc ated disc at T12-L1 of a few millimeters and subtle bulges above this, but without evidence of high-grade disease or discitis. | |Some anterior osteophytosis of the | |lower thoracic spine is multilevel and uniform | | | |IMPRESSION: | | | |1. The oval 10 mm sclerotic lesion to the left of midline in T12 is T2 dark, unaccompanied by abnormal enhancement-highly doubtful for metastasis | | | |2. Known pulmonary lesion in the medial posterior left lung-see dedicated pulmonary imaging for details | | | |3. Postoperative changes of lumbar spine with significant degenerative changes and posterio r seroma or fluid collection from L3 through L5, not fully evaluated here | | | | | | | | | + + documented in this encounter Visit Diagnoses + + | Diagnosis | + + | Malignant neoplasm of lower lobe of left lung (HCC) | + + | Bone lesion Disorder of bone and cartilage, unspecified | + + documented in this encounter"
--- OUTSIDE RECORDS SUMMARY | ~2019-10-16 | XMS | Encounter Summary ---
Demographics + + + | Address | [address] | | | [place] [address] | + + + | Home Phone [...] #[place] | | | | | [address] | | + + + + + | Bebe Terrazas | ECON | Unknown | Unavailable | + + + + + | Arden Terrazas | ECON | Unknown | | + + + + + Care Team Providers + +------+ + | Care E Business Specialist Name | Role | Phone | [...] Refill Request | | 2013 | | [facility] | ,PhD [address] | | | | | and Healing [address] | [address] | | | | | [facility] for | [place], [place] | | | | | Health and Healing, | [address] | | | | | [facility] | [phone] | | | | | [place], [place] | | | | | | [address] | | | | | | [phone] | | | +--------+--------+ + + + [...]
--- OUTSIDE RECORDS SUMMARY | ~2019-10-16 | XMS | Encounter Summary ---
Demographics + + + | Address | [address] | | | [place] [address] | + + + | Home Phone [...] #[place] | | | | | [address] | | + + + + + | Bebe Terrazas | ECON | Unknown | Unavailable | + + + + + | Arden Terrazas | ECON | Unknown | | + + + + + Care Team Providers + +------+ + | Care Grand Jury Deputy Sheriff Name | Role | Phone | + [...] + + | 06/30/ | Telephone | [facility] | Kirk Sawyer, | Scheduling; Other | | 2019 | | [facility] | MD [address] | (has several no show | | | | [facility] [address] | [place], [place] | appts) | | | | [address] [place] | [address] | | | | | Health and Healing, | [phone] | | | | | [address] | | | | | | [place], [place] | | | | | | [address] | | | | | | [phone] | | | +--------+ + + + [...]
--- OUTSIDE RECORDS SUMMARY | ~2019-10-16 | XMS | Encounter Summary ---
Demographics + + + | Address | [address] | | | [place] [address] | + + + | Home Phone [...] #[place] | | | | | [address] | | + + + + + | Bebe Terrazas | ECON | Unknown | Unavailable | + + + + + | Arden Terrazas | ECON | Unknown | | + + + + + Care Team Providers + +------+ + | Care Portfolio Administrator Name | Role | Phone | [...] Record | | 2018 | | at [facility] [address] | | Review | | | | [facility] for | | | | | | Health and Healing, | | | | | | [facility] | | | | | | Floor [place], [place] | | | | | | [address] | | | | | | [phone] | | | +--------+ + + + [...] documented as of this encounter Progress Notes Linda Bethea - 09/26/2017 3:45 PM PDTFormatting of this note might be different from the or iginal. General Cardiology New Patient Record Check List Procedure Where/Date Date requested Report received? Y/N, Where? Imaging received? CD/ IMPAX/Not Available Comments Referring Provider notes PCP N/A Referral Last EKG (REPORT ONLY) Note: Tracings needed if being seen for abnormal ECG [facility] 07/2017 Epic N/A Last Echo images and report [facility] 06/2017 Attached Last Stress Test images and report n/a n/a Last Cardiac Catheterization images and report Kris Campos 06/2013 [facility] Last Holter or Event monitor report only n/a n/a N/A Labs (BMP, Lipids, TSH, Hemoglobin A1C in last 6 months) [facility] 07/2017 attached N/A Last Device Check (schedule device check if due) n/a n/a N/A Last Cardiac MRI report and images if available n/a n/a Cardiac CTA report and images if available n/a n/a Patient Preferred Lab N/A N/A N/A Additional Comments: documented in this encounter Plan of Treatment Not on filedocumented as of this encounter Visit Diagnoses Not on filedocumented in this encounter"
--- OUTSIDE RECORDS SUMMARY | ~2019-10-16 | XMS | Encounter Summary ---
Demographics + + + | Address | [address] | | | [place] [address] | + + + | Home Phone [...] #[place] | | | | | [address] | | + + + + + | Bebe Terrazas | ECON | Unknown | Unavailable | + + + + + | Arden Terrazas | ECON | Unknown | | + + + + + Care Team Providers + +------+ + | Care Motorcycle Racer Name | Role | Phone | + +------+ + | Yuriy Cardenas PA-C | PCP | | + +------+ + Encounter Details +--------+ + + + + | Date | Type | Department | Care Team | Description | +--------+ + + + + | 09/02/ | MyChart | [facility] Primary Care | Yuriy Cardenas, | RE: Medication | | 2020 | Encounter | at [place] [address] | PA-C [address] | Refill | | | | [address] | [address] | | | | | [place], [place] | [place], [place] | | | | | [address] | [address] | | | | | [phone] | [phone] | | | | | | | [...]
--- OUTSIDE RECORDS SUMMARY | ~2019-10-16 | XMS | Encounter Summary ---
Demographics + + + | Address | [address] | | | [place] [address] | + + + | Home Phone [...] #[place] | | | | | [address] | | + + + + + | Bebe Terrazas | ECON | Unknown | Unavailable | + + + + + | Arden Terrazas | ECON | Unknown | | + + + + + Care Team Providers + +------+ + | Care Learning And Development Associate Name | Role | Phone | + +------+ + | Yuriy Cardenas PA-C | PCP | | + +------+ + Encounter Details +--------+ + + + + | Date | Type | Department | Care Team | Description | +--------+ + + + + | 07/07/ | Procedure | Diagnostic Imaging | | | | 2019 | Pass | Services at [facility] | | | | | | [address] | | | | | | [facility] | | | | | | [address] | | | | | | [place], [place] | | | | | | [address] | | | | | | [phone] | | | +--------+ + + + [...]
--- OUTSIDE RECORDS SUMMARY | ~2019-10-16 | XMS | Encounter Summary ---
Demographics + + + | Address | [address] [facility] [address] | | | [place] [address] | + + + | Home Phone | | + + + | Preferred Language | Unknown | + + + | Marital Status | | + + + | Cheondoism Affiliation | 1013 | + + + | Race | Unknown | + + + | Ethnic Group | Unknown | + + + Author + + + | Author | [facility] | | | and [place] Joséana | + + + | Organization | [facility] [...] [place] | | | | | [address] | | + + + + + | Bebe Terrazas | ECON | [address] | | | | | [facility] [place] | | | | | [address] | | + + + + + Care Team Providers + +------+ + | Care Trench Digger Helper Name | Role | Phone | + +------+ + PCP | Unavailable | + +------+ + Encounter Details +--------+ + + + + | Date | Type | Department | Care Team | Description | +--------+ + + + + | 12/20/ | Emergency | [facility] | Michael Espinosa MD | Pain, dental; | | 2014 | | [facility] | [address] | Dental abscess | | | | EMERGENCY [facility] | [place] [address] | | | | | [address] | [phone] | | | | | [place], [place] | | | | | | [address] | | | | | | [phone] | | | +--------+ + + + [...] documented as of this encounter ED Notes Jorden Sauer ARNP - 12/20/2014 10:06 PM PDT ED Provider Notes by PRICE Savage at 12/20/142205 Author: PRICE Savage Service: (none) Author Type: Nurse Practitioner Filed: 12/20/14 8471 Date of Service: 12/20/142205 Status: Attested Addendum Boat Oar Maker: PRICE Savage (Nurse Practitioner) Related Notes: Original Note by PRICE Savage (Nurse Practitioner) filed at 12/20/14 2 218 Cosigner: Michael Espinosa MD at 12/21/14 7670 Attestation signed by Michael Espinosa MD at 12/21/14 0929 I have reviewed this patient's encounter with the mid-level provider and agree with the cli nical impression and management. I was present for the pertinent parts of this patient's ev aluation. Procedures [facility] Department of Emergency Medicine HPI History of Present Illness Patient Identification Nancy Terrazas is a 44 y.o. female. Patient information was obtained from patient. History/Exam limitations: none. Patient presented to the Emergency Department by: Car Chief Complaint Chief Complaint Patient presents with Dental Pain started Saturday; progressively worsening; 11/11 shooting pain to R upper molar The patient complains of right upper dental pain and swelling. Onset of symptoms was 3 days ago, with a worsening course since that time. The symptoms are described to be of moderate severity. The patient describes the quality and location of the symptoms as the following: Right upper dental pain and swelling for the past 3 days. Patient reports she is new to the area and has not established dental care. Patient reports she does have dental insurance. Past Medical History Diagnosis Date Hyperlipidemia Hypertension Old myocardial infarction Asthma Past Surgical History Procedure Laterality Date Cholecystectomy Tubal ligation Breast surgery Spine surgery Lithotripsy Coronary stent placement Sinus surgery Prior to Admission medications Not on File Allergies Allergen Reactions Sulfa Antibiotics Rash Codeine Nausea and Vomiting History Social History Marital Status: N/A Spouse Name: N/A Number of Children: N/A [...] Social History Narrative No narrative on file No family history on file. ROS Review of Systems Constitutional: Negative for: fever, chills, fatigue, sweats or weight loss Eyes: Negative for: decreased vision or irritated eyes Nose: Negative for: nosebleed Throat: Positive for right upper dental pain and swelling. Cardiovascular/Respiratory: Negative for: chest pain, shortness of breath, cough Gastrointestinal: Negative for: abdominal pain, vomiting, diarrhea, black or bloody stools Genitourinary: Negative for: dysuria, hematuria, urinary problems Musculoskeletal: Negative for: myalgias and arthralgias Skin: Negative for: laceration or lesion Neuro and psych: Negative for: fainting, head injury, seizure, trouble walking Endocrine/Heme/Lymph: Negative for: swollen lymph nodes, easy bruising Physical Exam Physical Exam BP 142/93 mmHg | Pulse 120 | Temp(Src) 98.4 F (36.9 C) (Oral) | Resp 16 | Ht 1.676 m (5 ' 6") | Wt 87 kg (191 lb 12.8 oz) | BMI 30.97 kg/m2 | SpO2 97% Pulse Oximetry interpretation: Normal otherwise normal vital signs General: Alert, in no apparent distress Eyes: Normal inspection, pupils equal and round, non-icteric ENT: Ears normal Nose normal Mouth: Right upper gumline with missing tooth and gum swelling. Tender to palpation. No d rainage noted. Neck: Normal inspection Supple No lymphadenopathy No meningismus Cardiovascular: Rate and rhythm normal No murmurs Respiratory: Breath sounds normal bilaterally Abdomen: Soft, non-tender, non-distended No guarding or rebound Genitourinary: Deferred Rectal exam: Deferred Back: Normal inspection Skin: Color normal Warm and dry No rash Neuro: No motor deficit No sensory deficit Normal gait ED Course Medical Decision Making and Emergency Department Course ED Department Course 44-year-old female with a three-day history of right upper dental pain and swelling. Clint grande states pain is worsened over the last 24 hours. Patient denies fever or any other symptoms . Will treat patient with antibiotic and pain medication and have her follow-up with dentist as discussed. Patient may return to emergency department for new or worsening symptoms. Deja galvan agrees to plan of care. I have discussed my clinical impression and treatment plan with the patient. We have speci fically discussed the signs and symptoms that would constitute the need for an immediate ret urn to the Emergency Department, the importance of continued outpatient follow up and furthe r testing (if deemed necessary by the patient's regular doctor) and the importance of compli ance with the discharge instructions. I have answered any questions that the patient has to the best of my ability. Based upon the patient s history, physical exam, emergency depar tment course, and any laboratory and diagnostic studies which may have been performed, I fee l that there is no current emergent medical condition that warrants admission, transfer, or further emergency department treatment at this time. Records Reviewed Old medical records. Labs & Radiology Results Laboratory Evaluation Results None Radiology and EKG Evaluation Imaging Results None Diagnosis & Disposition ED Diagnoses Final diagnoses Pain, dental Dental abscess Disposition: ED Disposition Discharge Condition at discharge: Stable Follow-up Information Follow up With Details Comments Contact Info [facility] Dental Call in 1 day For dental follow-up [address] [address] [facility] MD Hyacinth As needed for follow-up [address] [facility] [address] [facility] Emergency Department in [place] As needed, If symptoms worsen [address] [facility] [address] Discharge Medications: New Prescriptions HYDROCODONE-ACETAMINOPHEN (NORCO) 5-325 MG PER TABLET Take 1-2 tablets by mouth every 6 (six) hours as needed for Pain. Do not exceed 8 in a 24 hour period. Do not take Tylenol, as this medication has Tylenol in it. IBUPROFEN (MOTRIN) 400 MG TABLET Take 1 tablet by mouth every 6 (six) hours as needed f or Pain. PENICILLIN V POTASSIUM (VEETID) 500 MG TABLET Take 1 tablet by mouth 4 (four) times mayo ly. 2315 Notified by [facility] pharmacist that patient had prescription filled 2 days ago from [facility] emergency department for hydrocodone's and penicillin. Pharmacy advised to not fill new prescriptions. PRICE Savage 12/20/14 2218 PRICE Savage 12/20/14 2325 Michael Espinosa MD 12/21/14 3045 documente d in this encounter Plan of Treatment Not on filedocumented as of this encounter Visit Diagnoses + + | Diagnosis | + + | Pain, dental Unspecified disorder of the teeth and supporting structures | + + | Dental abscess Periapical abscess without sinus | + + documented in this encounter
--- OUTSIDE RECORDS SUMMARY | ~2019-10-16 | XMS | Encounter Summary ---
Demographics + + + | Address | [address] | | | [place] [address] | + + + | Home Phone | | + + + | Preferred Language | Unknown | + + + | Marital Status | | + + + | Adventist Affiliation | PRE | + + + | Race | White | + + + | Ethnic Group | Not or | + + + Author + + + | Author | [facility] | + + + | Organization | [facility] | + + + | Address [...] #[address] | | | | | [address] | | + + + + + | Bebe Terrazas | ECON | Unknown | Unavailable | + + + + + | Arden Terrazas | ECON | Unknown | | + + + + + Care Team Providers + +------+ + | Care Feather Washer Name | Role | Phone | + [...] | | | | | subcutaneous | [address] | | | | | | tissue | [address] | | | | | | Abnormal | Rd | | | | | | prominence | [place], | | | | | | of rib | [place] | | | | | | Procedures | [address] | | | | | | CT CHEST, | Phone: | | | | | | ABDOMEN AND | [phone] | | | | | | PELVIS W IV | Fax: | | | | | | CONTRAST CT | [phone] | | | | | | ABDOMEN [...] 07/07/ | Hospital | Diagnostic Imaging | RonaldYuriy ortega, | | | 2019 | Encounter | Services at [facility] | [place] [address] | | | | | [address] | [address] | | | | | [address] [facility] | [place], [place] | | | | | [facility], 10th Floor | [address] | | | | | [place], [place] | [phone] | | | | | [address] | | | | | | [phone] | | | +--------+ + + + [...] | | | use of insulin ([facility]) | | | | | | [...] | | | | | | of [place] coronary | | | | | | | artery of [place] | | | | | | | heart with stable | | | | | | | angina pectoris | | | | | | | ([facility]) | | | | | | [...] + +--------+ + + + | CT CHEST, ABDOMEN | Routin | 07/07/2018 | Mass of | Results for this | | AND PELVIS W IV | e | 5:11 PM | subcutaneous tissue | procedure are in the | | CONTRAST | | PDT | Abnormal prominence | results section. | | | | | of rib | | + +--------+ + + + | CREATININE, POC | Routin | 07/07/2018 | Mass of | Results for this | | | e | 5:00 PM | subcutaneous tissue | procedure are in the | | | | PDT | | results section. | + +--------+ + + + documented in this encounter Results CT CHEST, ABDOMEN AND [...] Castillo MD 07/08/2018 9:06 AM Preliminary: Lior | | | R MD Jonathan Dictation initiated: Lior Castillo MD | | [...] necessary, edited the report. I agree with th e report as now presented. | | [...] | | | + +---------+ + + CREATININE, POC (07/07/2018 5:00 PM PDT) + +-------+ + + + | Component | Value | Ref Range | Performed | Pathologist | | | | | At | Signature | + +-------+ + + + | CREATININE, | 0.6 | 0.6 - 1.1 mg/dL | [facility] - | | | POC | | | [facility] | | | | | | [facility] | | | | | | OF CARE | | | | | | TESTS | | + +-------+ + + + + + | Specimen | + + | Blood - Blood | | (substance) | + + + + + + + | Performing | Address | City/State/Zipcode | Phone Number | | Organization | | | | + + + + + | [facility] | [address] | [place], [place] | | | [facility] | [address] | [address] | | | TESTS | | | | + + + + + documented in this encounter Visit Diagnoses + + | Diagnosis | + + | Mass of subcutaneous tissue | + + | Abnormal prominence of rib | + + documented in this encounter Administered Medications + +---------+ +--------+------+------+ | Medication Order | MAR | Action | Dose | Rate | Site | | | Action | Date | | | | + +---------+ +--------+------+------+ | iohexol (OMNIPAQUE) 350 mg | IV Push | 07/08/19 | 100 mL | | | | iodine/mL injection 100 mL 100 | | 19 5:05 | | | | | mL, intravenous, ONCE, 1 dose, | | PM PDT | | | | | 07/07/18 at 1745 | | | | | | + +---------+ +--------+------+------+ +---+---+ | | | +---+---+ documented in this encounter"
--- OUTSIDE RECORDS SUMMARY | ~2019-10-16 | XMS | Encounter Summary ---
Demographics + + + | Address | [address] | | | [place] [address] | + + + | Home Phone [...] #[address] | | | | | [address] | | + + + + + | Bebe Terrazsa | ECON | Unknown | Unavailable | + + + + + | Arden Terrazas | ECON | Unknown | | + + + + + Care Team Providers + +------+ + | Care Financial Services Sales Representative Name | Role | Phone | + +------+ + | Yuriy Cardenas PA-C | PCP | | + +------+ + Encounter Details +--------+ + + + + | Date | Type | Department | Care Team | Description | +--------+ + + + + | 06/19/ | MyChart | [facility] Primary Care | Yuriy Cardenas, | RE: Question | | 2019 | Encounter | at [place] [address] | PA-C [address] | | | | [address] | [address] | | | | | [place], [place] | [place], [place] | | | | | [address] | [address] | | | | | [phone] | | | | | | | [...]
--- OUTSIDE RECORDS SUMMARY | ~2019-10-16 | XMS | Encounter Summary ---
Demographics + + + | Address | [address] | | | [place] [address] | + + + | Home Phone [...] #[address] | | | | | [address] | | + + + + + | Bebe Terrazas | ECON | Unknown | Unavailable | + + + + + | Arden Terrazas | ECON | Unknown | | + + + + + Care Team Providers + +------+ + | Care Meat Molder Name | Role | Phone | + [...] + + | 08/28/ | Refill | [facility] Primary Care | Yuriy Cardenas, | Refill Request | | 2018 | | at [place] [address] | PA[address] | | | | [address] [facility] | [facility] | | | | | [facility] [place], [place] | [place], [place] | | | | | [address] | [address] | | | | | [phone] | | | | | | | [...]
--- OUTSIDE RECORDS SUMMARY | ~2019-10-16 | XMS | Encounter Summary ---
Demographics + + + | Address | [address] | | | [place] [address] | + + + | Home Phone [...] + + + | Author | [facility] | + + + | Organization | [facility] | + + + | [...] #[address] | | | | | [address] | | + + + + + | Bebe Terrazas | ECON | Unknown | Unavailable | + + + + + | Arden Terrazas | ECON | Unknown | | + + + + + Care Team Providers + +------+ + | Care Trauma Program Manager Name | Role | Phone | [...] Description | +--------+---------+ + + + | 05/20/ | Office | Neurosurgery [address] | Patricio Tanner, | Back pain (Primary | | 2013 | Visit | [address] | [address] | Dx); Lumbar | | | | Physician's | [place], [place] | radiculopathy; | | | | [place], 2nd floor | [address] | Lumbar | | | | [place], [place] | [phone] | post-laminectomy | | | | [address] | | syndrome | | | | [phone] | | | +--------+---------+ + + + [...] + + + | Blood Pressure | 134/94 | 05/20/2013 10:29 AM | | | | | PDT | | + + + + + | Pulse | 103 | 05/20/2013 10:29 AM | | | | | PDT | | + + + + + | Temperature | 36.6 C (97.9 F) | 05/20/2013 10:29 AM | | | | | PDT [...] + + + + | Weight | 101.6 kg (224 lb) | 05/20/2013 10:29 AM | | | | | PDT | | + + + + + | Height | - | - | | + + + + + | Body Mass Index | 36.15 | 04/30/2013 2:25 PM | | | | | PST | | + + + + + documented in this encounter Progress Notes Patricio Tanner MD - 05/20/2013 4:19 PM MARJORIE performed a history and physical examination of the patient and discussed her management with the resident. I reviewed the resident s note and agree with the documented findings and plan of care. MD PATRICIO Rayo MD NEUROSURGERY [address] [facility] Mailcode: [id number] [place] [id number] nnita Bullock PA - 05/20/2013 1:18 PM PDT S: Ms. Terrazas is here for a follow up visit s/p L3-4 LEFT extreme lateral interbody fusion Bilateral L3-4 foraminotomies, L3-S1 revision posterior instrumented fusion 12/23/2012. The patient has noted some improvement in her pre operative pain. She recently began to develop mid thoracic pain about 6 weeks ago. The patient states she had a similar type pain several years ago and underwent a breast reduction to address this. She reports she had been relativ papito pain free in this area until now. The patient is also noticing some ongoing Right buttoc k, lateral hip pain. She has been seen in the pain clinic and had a recent SI injection. BP 134/94 | Pulse 103 | Temp 36.6 C (97.9 F) | Wt 101.606 kg (224 lb) | BMI 36.17 kg/(m ^2) O: Gen: 42 y/o Female NAD Incisions: healed Neuro: A + O x 3, Motor 5/5 throughout Gait normal Mildly tender to palpation Right lateral trochanter 05/20/2013 Component Results Component SPINE THORACOLUMBAR STANDING STUDY: SPINE THORACOLUMBAR STANDING 05/20/13 11:45:00 COMPARISON: 10/02/[address] lumbar spine 04/15/13. HISTORY: Thoracic back pain status post L3-S1 fusion. FINDINGS: There is L3-S1 posterior spinal fusion with paraspinal rods and pedicle screws with normal alignment. No hardware failure or loosening is observed. Discectomy and intervertebral grafts are present from L3-S1 and the grafts project in expected position. L3-S1 laminectomy defects are observed. The visualized vertebral bodies are of normal height. Minimal dextrocurvature seen of the lower thoracic and upper lumbar spine, otherwise the alignment is normal. Mild disc space narrowing is noted of the lower thoracic spine with endplate spurring and there is also mild disc space narrowing and endplate spurring at L1-L2. The L2-L3 disc space is maintained. No fracture or focal destruction is observed. No paravertebral soft tissue abnormality is detected. Surgical clips are seen within the right upper quadrant. IMPRESSION: L3-S1 anterior and posterior spinal fusion in normal alignment with intact hardware and grafts. 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 Attending Radiologists: JENNIFER TERRY MD Author: JENNIFER TERRY MD A: 42 y/o Female s/p s/p L3-4 LEFT extreme lateral interbody fusion Bilateral L3-4 foramino tomies, L3-S1 revision posterior instrumented fusion 12/23/2012. P: Discussed patient and post op imaging with Dr. Tanner who recommend patient monitor thor acic back pain, FU in 6 month time. No imaging indicated at that time. RAMOS HUTCHINSON-Massiel NEUROSURGERY [address] [place] [address] Mailcode: [id number] [place] [address] documented in t his encounter Plan of Treatment Not on filedocumented as of this encounter Procedures + +--------+ + + + | Procedure Name | Priori | Date/Time | Associated Diagnosis | Comments | | | ty | | | | + +--------+ + + + | LAB OTHER | Routin | 05/21/2013 | | Results for this | | | e | 6:31 PM | | procedure are in the | | | | PDT | | results section. | + +--------+ + + + documented in this encounter Results LAB OTHER (05/21/2013 6:31 PM PDT) + + + + + + | Component | Value | Ref Range | Performed | Pathologist | | | | | At | Signature | + + + + + + | MISC REF | [id number] | | [facility] | | | TEST NAME | | | [facility] | | + + + + + + | MISC REF | See NoteComment: Test | | [facility] | | | TEST RESULT | name: Pain Management | | [facility] | | | | Profile 1 with | | | | | | Confirmation, Urine To | | | | | | view report see Scanned | | | | | | Send-Out Lab Tests tab | | | | | | in PowerChart. Reference | | | | | | Lab Report will be | | | | | | distributed to providers | | | | | | via the normal lab | | | | | | chart production. | | | | + + + + + + + + | Specimen | + + | | + + + + + + + | Performing | Address | City/State/Zipcode | Phone Number | | Organization | | | | + + + + + | [facility] | [address] | [place], [place] | | | LAB | | [address] | | + + + + + | [facility] | [address] | [place], [place] | | | LAB | | [address] | | + + + + + X-RAY SPINE THORACOLUMBAR STANDING (05/20/2013 11:45 AM [...] | | | | | roxanne / JENNIFER | | | | | | AMRA 05/20/2013 | | | | | | [...] Diagnosis | + + | Back pain - Primary Backache, unspecified | + + | Lumbar radiculopathy Thoracic or lumbosacral neuritis or radiculitis, unspecified | + + | Lumbar post-laminectomy syndrome Postlaminectomy syndrome, lumbar region | + + documented in this encounter"
--- OUTSIDE RECORDS SUMMARY | ~2019-10-16 | XMS | Encounter Summary ---
Demographics + + + | Address | [address] | | | [place] [address] | + + + | Home Phone [...] #[address] | | | | | [address] | | + + + + + | Bebe Terrazas | ECON | Unknown | Unavailable | + + + + + | Arden Terrazas | ECON | Unknown | | + + + + + Care Team Providers + +------+ + | Care Door Puller Name | Role | Phone | + [...] | Outpatient | | | | [facility] | [place], [place] | Appointment | | | | [address] | [address] | | | | | [facility] | [phone] | | | | | and Healing, | | | | | | [facility] | | | | | | [place], [place] | | | | | | [address] | | | | | | [phone] | | | +--------+ + + + [...]
--- OUTSIDE RECORDS SUMMARY | ~2019-10-16 | XMS | Encounter Summary ---
Demographics + + + | Address | [address] | | | [place] [address] | + + + | Home Phone | | + + + | Preferred Language | Unknown | + + + | Marital Status | | + + + | Cheondoism Affiliation | PRE | + + + [...] #[address] | | | | | [address] | | + + + + + | Bebe Terrazas | ECON | Unknown | Unavailable | + + + + + | Arden Terrazas | ECON | Unknown | | + + + + + Care Team Providers + +------+ + | Care Senior Business Architect Name | Role | Phone | + [...] | | | | | | [place], [place] | | | | | | [address] | | | | | | [phone] | | | +--------+ + + + [...]
--- OUTSIDE RECORDS SUMMARY | ~2019-10-16 | XMS | Encounter Summary ---
Demographics + + + | Address | [address] | | | [place] [address] | + + + | Home Phone | | + + + | Preferred Language | Unknown | + + + | Marital Status | | + + + | Confucianism Affiliation | 1013 | + + + | Race | Unknown | + + + | Ethnic Group | Unknown | + + + Author + + + | Author | [facility] | | | and [place] | + + + | Organization | [facility] | | | and [place] | + + + | Address | Unknown | + + + | Phone | Unavailable | + + + Support + + + + + | Name | Relationship | Address | Phone | + + + + + | Dustin Terrazas | ECON | [place] | | | | | [address] | | + + + + + | Bebe Terrazas | ECON | [address] | | | | [place], [place] | | | | | [address] | | + + + + + Care Team Providers + +------+ + | Care Joiner Name | Role | Phone | + +------+ + | Ki Senior NP | PCP | | + +------+ + Encounter Details +--------+ + + + + | Date | Type | Department | Care Team | Description | +--------+ + + + + | 05/20/ | Hospital | [facility] | Conversion | Malignant neoplasm | | 2018 | Encounter | [facility] | Transaction, | of lower lobe of | | | | [address] | Provider Unknown | left lung (HCC) | | | | [place], [place] | | | | | | [address] | (Fax) | | | | | [phone] | | | +--------+ + + + [...] Weight | 91.6 kg (202 lb) | 05/20/2017 6:14 PM | | | | | PDT | | + + + + + | Height | 165.1 cm (5' 5") | 05/20/2017 6:14 PM | | | | | PDT | | + + + + + | Body Mass Index | 33.61 | 05/20/2017 6:14 PM | | | | | PDT [...] + +--------+ + + + | MRI BRAIN W WO | Routin | 05/20/2017 | | Results for this | | CONTRAST | e | 7:02 PM | | procedure are in the | | | | PDT | | results section. | + +--------+ + + + documented in this encounter Results MRI Brain w wo Contrast (05/20/2017 7:02 PM PDT) + + | Specimen | + + | | + + + + + | Impressions | Performed At | + + + | 1. No evidence of intra-axial metastasis 2. Acute on chronic | | | maxillary sinus disease with acute air-fluid levels. Active sinusitis | | | 3. Associated with the dura or the inner table of the superior | | | right frontal calvarium near the vertex is a 14 x 8 x 13 mm focus of | | | T2 dark signal, with some central T1 bright signal-but no evidence of | | | enhancement. Do not favor progressive or metastatic lesion. Most | | | likely either a calcified lipomatous lesion, hemangioma or dural | | | vascular malformation. Possibly with superimposed hemosiderin/prior | | | bleed Recommend CT scan with high-resolution fine cut imaging of | | | the vertex only to supplement this imaging | | + + + + + + | Narrative | Performed At | + + + | HISTORY: 46 years old female with lung malignancy, requires | | | staging examination TECHNIQUE: MR of the brain/intracranial | | | contents pre-and post the uneventful administration of 17cc | | | MultiHance. None prior study for evaluation FINDINGS: | | | Diffusion weighted pulse sequences reveal no evidence of abnormal | | | signal compatible with acute or active ischemia. ADC map agrees. A few | | | small foci of T2 shine through such as on image 32 series 2 in the | | | left frontal white matter, not thought consequential. Gradient | | | pulse sequences demonstrate a large focus of abnormal gradient dark | | | signal in the anterior superior right frontal apex on image 3 series | | | 4. This is extra-axial, seen on sagittal image 13 series 7 and is dark | | | postcontrast. T1 bright. With peripheral FLAIR bright signal. Seems | | | associated with the dura or the periosteum of the inner table No | | | intra-axial evidence of dark signal compatible with abnormal | | | intracranial hemosiderin deposition. Multiplanar flair and T2 | | | weighted pulse sequences demonstrate a normal midline falx. The | | | ventricles demonstrate appropriate volume and symmetry . No evidence | | | of abnormal extra axial fluid collection. The cervical occipital | | | relationships are normal. There is no evidence of cerebellar | | | tonsillar ectopia. The sella, tectum, pineal and seventh/eighth nerve | | | complexes are normal. CSF and perivascular spaces are normal. The | | | orbits are unremarkable. Paranasal sinuses reveal diffuse and fairly | | | exuberant mucosal thickening of both maxillary sinuses. Ethmoid air | | | cell with mucosal thickening. Layering fluid in both maxillary | | | sinuses. The mastoids are clear. No evidence of significant white | | | matter disease The MULTIPLANAR POST CONTRAST PULSE SEQUENCES | | | demonstrate normal enhancement of the major dural sinuses without | | | convincing evidence of abnormal parenchymal or dural enhancement. | | + + + + --------+ | Procedure Note | + --------+ | Meir, Rad Conversion - 10/15/2018 11:00 AM PDT HISTORY: 46 years old female with | | lung malignancy, requires staging examination TECHNIQUE: MR of the brain/intracranial | | contents pre-and post the uneventful administration of 17cc MultiHance. None prior study | | for evaluation FINDINGS: Diffusion weighted pulse sequences reveal no evidence of | | abnormal signal compatible with acute or active ischemia. ADC map agrees. A few small | | foci of T2 shine through such as on image 32 series 2 in the left frontal white matter, | | not thought consequential. Gradient pulse sequences demonstrate a large focus of | | abnormal gradient dark signal in the anterior superior right frontal apex on image 3 | | series 4. This is extra-axial, seen on sagittal image 13 series 7 and is dark | | postcontrast. T1 bright. With peripheral FLAIR bright signal. Seems associated with the | | dura or the periosteum of the inner table No intra-axial evidence of dark signal | | compatible with abnormal intracranial hemosiderin deposition. Multiplanar flair and T2 | | weighted pulse sequences demonstrate a normal midline falx. The ventricles demonstrate | | appropriate volume and symmetry . No evidence of abnormal extra axial fluid collection. | | The cervical occipital relationships are normal. There is no evidence of cerebellar | | tonsillar ectopia. The sella, tectum, pineal and seventh/eighth nerve complexes are | | normal. CSF and perivascular spaces are normal. The orbits are unremarkable. Paranasal | | sinuses reveal diffuse and fairly exuberant mucosal thickening of both maxillary | | sinuses. Ethmoid air cell with mucosal thickening. Layering fluid in both maxillary | | sinuses. The mastoids are clear. No evidence of significant white matter disease The | | MULTIPLANAR POST CONTRAST PULSE SEQUENCES demonstrate normal enhancement of the major | | dural sinuses without convincing evidence of abnormal parenchymal or dural enhancement. | | IMPRESSION: 1. No evidence of intra-axial metastasis 2. Acute on chronic maxillary | | sinus disease with acute air-fluid levels. Active sinusitis 3. Associated with the dura | | or the inner table of the superior right frontal calvarium near the vertex is a 14 x 8 x | | 13 mm focus of T2 dark signal, with some central T1 bright signal-but no evidence of | | enhancement. Do not favor progressive or metastatic lesion. Most likely either a | | calcified lipomatous lesion, hemangioma or dural vascular malformation. Possibly with | | superimposed hemosiderin/prior bleed Recommend CT scan with high-resolution fine cut | | imaging of the vertex only to supplement this imaging | | | |Do not favor progressive or metastatic lesion. Most likely either a calcified lipomatous le mayank, hemangioma or dural vascular malformation. Possibly with superimposed hemosiderin/prio r bleed | | | |Recommend CT scan with high-resolution fine cut imaging of the vertex only to supplement th is imaging | | | | | + --------+ documented in this encounter Visit Diagnoses + + | Diagnosis | + + | Malignant neoplasm of lower lobe of left lung (HCC) | + + documented in this encounter
--- OUTSIDE RECORDS SUMMARY | ~2019-10-16 | XMS | Encounter Summary ---
Demographics + + + | Address | [address] | | | [place] [address] | + + + | Home Phone [...] #[place] | | | | | [address] | | + + + + + | Bebe Terrazas | ECON | Unknown | Unavailable | + + + + + | Arden Terrazas | ECON | Unknown | | + + + + + Care Team Providers + +------+ + | Care Software Computer Specialist Name | Role | Phone | [...] Disregard | | | | Physician's | [place], [place] | | | | | [place], [facility] floor | [address] | | | | | [place], [place] | [phone] | | | | | [address] | | | | | | [phone] | | | +--------+ + + + [...]
--- OUTSIDE RECORDS SUMMARY | ~2019-10-16 | XMS | Encounter Summary ---
Demographics + + + | Address | [address] | | | [place] [address] | + + + | Home Phone [...] #[place] | | | | | [address] | | + + + + + | Bebe Terrazas | ECON | Unknown | Unavailable | + + + + + | Arden Terrazas | ECON | Unknown | | + + + + + Care Team Providers + +------+ + | Care Child Psychometrist Name | Role | Phone | + +------+ + | Yuriy Cardenas PA-C | PCP | | + +------+ + Encounter Details +--------+ + + + + | Date | Type | Department | Care Team | Description | +--------+ + + + + | 06/20/ | MyChart | [facility] Primary Care | Yuriy Cardenas, | RE: Medication | | 2019 | Encounter | at [place] [address] | PA-C [address] | | | | [address] | [address] | | | | | [place], [place] | [place], [place] | | | | | [address] | [address] | | | | | [phone] | | | | | | | [...]
--- OUTSIDE RECORDS SUMMARY | ~2019-10-16 | XMS | Encounter Summary ---
Demographics + + + | Address | [address] | | | [place] [address] | + + + | Home Phone [...] [place] | | | | | [address] | | + + + + + | Bebe Terrazas | ECON | Unknown | Unavailable | + + + + + | Arden Terrazas | ECON | Unknown | | + + + + + Care Team Providers + +------+ + | Care Garnett Mechanic Name | Role | Phone | [...] | | | | | Physician's | [place], [place] | | | | | Pavilion, 2nd floor | [address] | | | | | [place], [place] | [phone] | | | | | [address] | | | | | | [phone] | | | +--------+ + + + [...]
--- OUTSIDE RECORDS SUMMARY | ~2019-10-16 | XMS | Encounter Summary ---
Demographics + + + | Address | [address] | | | [place] [address] | + + + | Home Phone [...] #[place] | | | | | [address] | | + + + + + | Bebe Terrazas | ECON | Unknown | Unavailable | + + + + + | Arden Terrazas | ECON | Unknown | | + + + + + Care Team Providers + +------+ + | Care Wire Basket Maker Name | Role | Phone | [...] + + | 01/22/ | Telephone | [facility] Primary Care | Yuriy Cardenas, | Medication | | 2017 | | at [place] [address] | PA-C [id number] | management | | | | [facility] | [facility] | | | | | [facility] [place], [place] | [place], [place] | | | | | [address] | [address] | | | | | [phone] | [phone] | | | | | | | [...]
--- OUTSIDE RECORDS SUMMARY | ~2019-10-16 | XMS | Encounter Summary ---
Demographics + + + | Address | [address] | | | [place] [address] | + + + | Home Phone [...] #[place] | | | | | [address] | | + + + + + | Bebe Terrazas | ECON | Unknown | Unavailable | + + + + + | Arden Terrazas | ECON | Unknown | | + + + + + Care Team Providers + +------+ + | Care Propagator Name | Role | Phone | + +------+ + | Yuriy Cardenas PA-C | PCP | | + +------+ + Encounter Details +--------+ + + + + | Date | Type | Department | Care Team | Description | +--------+ + + + + | 06/24/ | MyChart | [facility] Primary Care | Yuriy Cardenas, | RE: Medication | | 2020 | Encounter | at [place] [address] | PA-C [id number] | refill | | | | [address] | [address] | | | | | [place], [place] | [place], [place] | | | | | [address] | [address] | | | | | [phone] | [phone] | | | | | | | [...]
--- OUTSIDE RECORDS SUMMARY | ~2019-10-16 | XMS | Encounter Summary ---
Demographics + + + | Address | [address] | | | [place] [address] | + + + | Home Phone [...] + + + | Author | [facility] | + + + | Organization | [facility] | + + + | [...] #[place] | | | | | [address] | | + + + + + | Bebe Terrazas | ECON | Unknown | Unavailable | + + + + + | Arden Terrazas | ECON | Unknown | | + + + + + Care Team Providers + +------+ + | Care Evaporator Helper Name | Role | Phone | [...] + + | 07/13/ | Telephone | [facility] Primary Care | Yuriy Cardenas, | Medication | | 2019 | | at [place] [address] | PA-C [id number] | management | | | | [facility] | [facility] | | | | | [facility] [place], [place] | [place], [place] | | | | | [address] | [address] | | | | | [phone] | [phone] | | | | | | | [...]
--- OUTSIDE RECORDS SUMMARY | ~2019-10-16 | XMS | Encounter Summary ---
Demographics + + + | Address | [address] | | | [place] [address] | + + + | Home Phone [...] #[place] | | | | | [address] | | + + + + + | Bebe Terrazas | ECON | Unknown | Unavailable | + + + + + | Arden Terrazas | ECON | Unknown | | + + + + + Care Team Providers + +------+ + | Care Jinrikisha Driver Name | Role | Phone | [...] | | syndrome | | Sadie Granados [facility] | | | | | Procedures | | [facility], | | | | | CT SPINE | | 10th Floor | | | | | LUMBAR WO | | [place], [place] | | | | | CONTRAST | | [address] | | | | | | | Phone: | | | | | | | [phone] | | | | | | | Fax: | | | | | | | [phone] | +--------+--------+ + + + + Diagnostic [...] | | | LUMBAR WWO | | [place], [place] | | | | | CONTR | | [address] | | | | | | | Phone: | | | | | | | [phone] | | | | | | | Fax: | | | | | | | [phone] | +--------+--------+ + + + + Reason [...] | | | intervertebr | CLINIC | [place], [place] | | | | | al disc | [address] | [address] | | | | | without | [address] | Phone: | | | | | myelopathy | [address] | [phone] | | | | | INS: | [facility] [place] | Fax: | | | | | [place] | [address] | [phone] | | | | | [facility] | Phone: | | | | | | | [phone] | | | | | | | Fax: | | | | | | | [phone] | | +--------+ + + + + [...] (Primary | | | | Physician's | [place], [place] | Dx) | | | | [place], 2nd floor | [address] | | | | | [place], [place] | [phone] | | | | | [address] | | | | | | [phone] | | | +--------+---------+ + + + [...] of care. MD PATRICIO Rayo MD NEUROSURGERY [address] [place] [address] Mailcode: [address] [place] [address] Adama Billy MD - 09/17/2012 9:47 AM PDT H&P History: 41 yo female who presents for a second clin[facility] for back pain and radicular symptoms. 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 She underwent a laminectomy and discectomy by Dr. Leach from [facility] in july 2012. She states that she [...] | | + +---------+ + + | [facility] DEPARTMENT OF | | | [...] + + | Performing | Address | City/[facility] | Phone Number | | Organization | | | | + +---------+ + + | [facility] DEPARTMENT OF | | | [...]
--- OUTSIDE RECORDS SUMMARY | ~2019-10-16 | XMS | Encounter Summary ---
Demographics + + + | Address | [address] | | | [place] [address] | + + + | Home Phone [...] #[place] | | | | | [address] | | + + + + + | Bebe Terrazas | ECON | Unknown | Unavailable | + + + + + | Arden Terrazas | ECON | Unknown | | + + + + + Care Team Providers + +------+ + | Care Escrow Clerk Name | Role | Phone | [...] | | | | cell cancer | [address] | | | | | | of left lung | [facility] | | | | | | (HCC) | Rd | | | | | | Procedures | [place], | | | | | | [address] | [place] | | | | | | CONTRAST | [address] | | | | | | | Phone: | | | | | | | [phone] | | | | | | | Fax: | | | | | | | [phone] | | + +--------+ + + + + Encounter Details +--------+ + + + + | Date | Type | Department | Care Team | Description | +--------+ + + + + | 07/07/ | Hospital | Diagnostic Imaging | Yuriy Cardenas, | Canceled (Scheduling | | 2019 | Encounter | Services at [facility] | [address] | error) | | | | [address] | [address] | | | | | [address] [facility] | [place], [place] | | | | | [facility], 10th Floor | [address] | | | | | [place], [place] | [phone] | | | | | [address] | | | | | | [phone] | | | +--------+ + + + [...] | | | | use of insulin ([facility]) | | | | | | + [...] | | | | | | of [place] coronary | | | | | | | artery of [place] | | | | | | | 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
--- OUTSIDE RECORDS SUMMARY | ~2019-10-16 | XMS | Encounter Summary ---
Demographics + + + | Address | [address] | | | [place] [address] | + + + | Home Phone | | + + + | Preferred Language | Unknown | + + + | Marital Status | | + + + | Episcopal Affiliation | PRE | + + + | Race | White | + + + | Ethnic Group | Not or | + + + Author + + + | Author | [facility] | + + + | Organization | [facility] | + + + | Address | Unknown | + + + | Phone | Unavailable | + + + Support + + + + + | Name | Relationship | Address | Phone | + + + + + | Dustin Terrazas | ECON | [address] | Unavailable | | | | #[id number] | | | | | [address] | | + + + + + | Bebe Terrazas | ECON | Unknown | Unavailable | + + + + + | Arden Terrazas | ECON | Unknown | | + + + + + Care Team Providers + +------+ + | Care Duco Polisher Name | Role | Phone | + [...] + | | | | | | | +--------+--------+ + + + + Encounter Details +--------+ + + + + | Date | Type | Department | Care Team | Description | +--------+ + + + + | 07/12/ | Emergency | [facility] Emergency | Kang Caba, | | | 2018 | | Department [address] | [address] | | | | | [address] | [address] | | | | | [facility] | [place], [place] | | | | | [place], [place] | [address] | | | | | [address] | [phone] | | | | | [phone] | | | | | | | Raúl Hill, | | | | | | YAO [address] | | | | | | [address] | | | | | | [place], [place] | | | | | | [address] | | | | | | [phone] | | | | | | | | | | | | Antonio Rodriguez, | | | | | | YAO [address] | | | | | | [address] [facility] | | | | | | [place], [place] | | | | | | [address] | | | | | | [phone] | | | | | | | [...] + + + | Blood Pressure | 118/81 | 07/12/2017 4:10 PM | | | | | PDT | | + + + + + | Pulse | 87 | 07/12/2017 4:10 PM | | | | | PDT | | + + + + + | Temperature | 36.6 C (97.9 F) | 07/12/2017 4:10 PM | | | | | PDT | | + + + + + | Respiratory Rate | 18 | 07/12/2017 4:10 PM | | | | | PDT | | + + + + + | Oxygen Saturation | 98% | 07/12/2017 4:10 PM | | | | | PDT | | + + + + + | Inhaled Oxygen | - | - | | | Concentration | | | | + + + + + | Weight | 90.7 kg (200 lb) | 07/12/2017 12:27 AM | | | | | PDT | | + + + + + | Height | - | - | | + + + + + | Body Mass Index | 33.28 | 06/14/2017 2:57 PM | | | | | PDT | | + + + + + documented in this encounter Discharge Summaries Antonio Rodriguez PA-C - 07/12/2017 5:13 AM PDT ED OBSERVATION UNIT DISCHARGE SUMMARY Date of Admission: 07/11/2017 Date of Discharge: 07/12/2017 Primary Care Provider: RAMOS Harrison ED Obs Provider: RAÚL HILL PA-C & Antonio Rodriguez PA-C Chief Complaint: No chief complaint on file. Final Diagnoses: R07.9 Left sided chest pain C34.92 Non-small cell cancer of left lung (HCC) Brief HPI: Mary Terrazas is a 46 y.o. female with a PMH of NSCLC s/p L lower lobectomy (post op day 21), CAD s/p PCI x 2 (last in 2015), DM2, HTN, HLD who presented to the ED for evaluatio n of CP. Mary Terrazas stated that she developed sudden, sharp left sided CP that radiated to her L back beginning last night. She was sitting down when if first began and it progressive ly became worse throughout the night. She reported pain is worse with movement and deep patsy ths. She also reported associated SOB with CP to the point where she was unable to walk a fe w feet before having to sit down. She denied fever, chills, cough, abd pain, numbness, weakn ess. ED Acute Course: ED Triage Vitals BP Temp Pulse Pulse - Plethysmograph Resp SpO2 07/12/17 0027 07/12/17 0027 07/12/17 0027 07/12/17 0052 07/12/17 0027 07/12/17 0027 146/92 36.6 C (!) 99 98 pulses/min 18 100 % Upon presentation to the Acute ED, pt vital signs were tachycardic at 99. Her exam was un remarkable. A work up was initiated which included CBC with mild leukocytosis, CMP with hyp erglycemia to 390 and alk phos of 188, INR wnl, mag wnl, initial trop of 0.02 followed by a detectable trop of 0.09. EKG did not show any acute changes. CXR showed moderate pleural eff usion that appeared unchanged from previous cxr. CTA PE was negative. Observation Unit Course: Upon presentation to the Acute ED, pt vital signs were tachycardic at 99. Her exam was un remarkable. A work up was initiated which included CBC with mild leukocytosis, CMP with hyp erglycemia to 390 and alk phos of 188, INR wnl, mag wnl, initial trop of 0.02 followed by a detectable trop of 0.09. EKG did not show any acute changes. CXR showed moderate pleural eff usion that appeared unchanged from previous cxr. CTA PE was negative. While in ED Obs, she was hemodynamically stable. She explains her pain is better controlle d. She feels fine and is ready to go home. Cardiology was informally consulted and recomme nd 3 trended troponin levels and if improving or static to discharge home with outpatient fo llow up. She understands the need for follow and and returning is symptoms change or worsen . She understands and agrees to the plan of care. Consults: Cardiology (informal) Pertinent Exam Findings at Discharge: General appearance: Adult female resting in bed appearing well nourished in NAD. HEENT: Normocephalic, atraumatic. Sclera anicteric, without injection. Mucous membranes m oist. Neck supple. CV: RRR, without m/r/g. ttp over chest wall but appears to be primarily over incision site s from lobectomy. No erythema, swelling, or other signs of infection. Incision sites clean, dry. Resp: No respiratory distress. Breath sounds equal bilaterally without w/r/r GI: Abdomen ND/NT, no rebound, no guarding, NABS x 4. No HSM. Extrem: Warm and well perfused, no deformities. Peripheral Vascular: No dependent edema. 2+ Posterior Tibial pulses bilaterally. Neuro: A&O x 3, CN II-XII intact grossly. Psych: Appropriate affect and insight. Skin: Appropriate color, warm, dry. 1. Chest pain - Repeat trop/ekg decreased and remains stable - Telemetry without events - Fu on final CT and CXR unremarkable - OTC Tylenol and Rx for oxycodone prn pain provided - informal consult with cards recommend d/c and fu with PCP/cards 2. DM2, HTN, HLD - Restart home meds Disposition: home Discharge Condition: stable Medications: New Prescriptions OXYCODONE (IMMEDIATE RELEASE) 5 MG ORAL TABLET Take 1-2 tablets by mouth every six hour s as needed for severe pain. Quantity: 30 tablet Instructions: 1. Activity: as tolerated 2. Diet: diabetic / heart healthy 3. Return to ED if symptoms worsen Follow-up: 1. PCP / cardiology within 3-5 days BP 122/86 | Pulse 85 | Temp 36.6 C | RR 18 | Wt 90.7 kg (200 lb) | SpO2 100% | BMI 33.28 kg/(m^2) Raúl Hill PA-C Emergency Department & Antonio Rodriguez PA-C Emergency Department Results for orders placed or performed during the hospital encounter of 07/12/17 COMPLETE METABOLIC SET (NA,K,CL,CO2,BUN,CREAT,GLUC,CA,AST,ALT,BILI TOTAL,ALK PHOS,ALB,PROT TOTAL) Result Value Ref Range GLUCOSE, PLASMA (LAB) 390 (H) 70 - 99 mg/dL BUN, PLASMA (LAB) 19 6 - 20 mg/dL CREATININE PLASMA (LAB) 0.62 0.60 - 1.10 mg/dL EGFR - BULGARIAN >60 >60 mL/min EGFR NON -BULGARIAN >60 >60 mL/min SODIUM, PLASMA (LAB) 135 (L) 136 - 145 mmol/L POTASSIUM, PLASMA (LAB) 4.6 3.4 - 5.0 mmol/L CHLORIDE, PLASMA (LAB) 102 97 - 108 mmol/L TOTAL CO2, PLASMA (LAB) 25 21 - 32 mmol/L CALCIUM, PLASMA (LAB) 9.3 8.6 - 10.2 mg/dL CALCIUM(ALB CORRECTED) 10.3 (H) 8.6 - 10.2 mg/dL BILIRUBIN TOTAL 0.3 0.3 - 1.2 mg/dL TOTAL PROTEIN, PLASMA (LAB) 8.6 (H) 6.4 - 8.2 g/dL ALBUMIN, PLASMA (LAB) 2.8 (L) 3.5 - 4.7 g/dL ALK PHOS 188 (H) 42 - 98 U/L AST(SGOT) 29 <=41 U/L ALT (SGPT) 20 <=60 U/L ANION GAP 8 4 - 11 mmol/L ANION GAP(ALB CORRECTED) 11 4 - 11 mmol/L POTASSIUM CMNT Sl Hemo AST CMNT Sl Hemo INR Result Value Ref Range INR 0.91 0.90 - 1.20 INR APTT (ACT. PART. THROMBO TIME) Result Value Ref Range APTT 24.6 (L) 26.0 - 36.0 seconds MAGNESIUM, PLASMA Result Value Ref Range MAGNESIUM,PLASMA 2.1 1.6 - 2.6 mg/dL TROPONIN I, PLASMA Result Value Ref Range TROPONIN I 0.09 <0.80 ng/mL TROPONIN I, PLASMA Result Value Ref Range TROPONIN I 0.08 <0.80 ng/mL TROPONIN I, PLASMA Result Value Ref Range TROPONIN I 0.08 <0.80 ng/mL 12 LEAD ECG Result Value Ref Range VENTRICULAR RATE 97 bpm ATRIAL RATE 97 ms P-R INTERVAL 134 ms P AXIS 4 deg QRS DURATION 93 ms QT 326 ms QTCB 414 ms R AXIS -59 deg T AXIS 37 deg ECG IMPRESSION Sinus rhythm ECG IMPRESSION Inferior infarct, old ECG IMPRESSION Consider anterior infarct- ABNORMAL ECG - ECG IMPRESSION Electronically signed by: PRELIMINARY - Unconfirmed 12 LEAD ECG Result Value Ref Range VENTRICULAR RATE 83 bpm ATRIAL RATE 83 ms P-R INTERVAL 159 ms P AXIS 36 deg QRS DURATION 90 ms QT 362 ms QTCB 425 ms R AXIS -64 deg T AXIS 17 deg ECG IMPRESSION Sinus rhythm ECG IMPRESSION Consider anterior infarct- BORDERLINE ECG - ECG IMPRESSION Electronically signed by: PRELIMINARY - Unconfirmed 12 LEAD ECG Result Value Ref Range VENTRICULAR RATE 75 bpm ATRIAL RATE 75 ms P-R INTERVAL 142 ms P AXIS -28 deg QRS DURATION 94 ms QT 377 ms QTCB 421 ms R AXIS -56 deg T AXIS 17 deg ECG IMPRESSION Sinus rhythm ECG IMPRESSION Consider anterior infarct- BORDERLINE ECG - ECG IMPRESSION Electronically signed by: PRELIMINARY - Unconfirmed CAPILLARY BLOOD GLUCOSE (NO CHG), POC Result Value Ref Range BLOOD GLUCOSE, POC 224 (H) 70 - 99 mg/dL CAPILLARY BLOOD GLUCOSE (NO CHG), POC Result Value Ref Range BLOOD GLUCOSE, POC 188 (H) 70 - 99 mg/dL TROPONIN, POC Result Value Ref Range TROPONIN, POC <0.02 0.0 - 0.49 ng/mL CBC AND AUTO DIFF Result Value Ref Range WHITE CELL COUNT 12.15 (H) 3.50 - 10.80 K/cu mm RED CELL COUNT 3.87 (L) 4.00 - 5.20 M/cu mm HEMOGLOBIN 11.4 (L) 12.0 - 16.0 g/dL HEMATOCRIT 34.1 (L) 36.0 - 46.0 % MCV 88.1 80.0 - 100.0 fL MCHC 33.4 32.0 - 36.0 g/dL RDW SD 42.5 35.1 - 46.3 fL PLATELET COUNT 524 (H) 150 - 400 K/cu mm MPV 9.8 9.7 - 12.3 fL NRBC% 0.0 0.0 - 0.3 % NRBC# 0.00 0.00 - 0.02 K/cu mm NEUTROPHIL % 58.1 50.0 - 70.0 % LYMPHOCYTE % 25.3 18.0 - 42.0 % MONOCYTE % 6.6 3.5 - 9.0 % EOS % 8.6 (H) 1.0 - 3.0 % BASO % 1.0 0.0 - 2.0 % IG% 0.4 0.0 - 1.0 % NEUTROPHIL # 7.06 1.80 - 7.70 K/cu mm LYMPHOCYTE # 3.08 1.00 - 4.80 K/cu mm MONOCYTE # 0.80 0.10 - 0.90 K/cu mm EOS # 1.04 (H) 0.00 - 0.50 K/cu mm BASO # 0.12 (H) 0.00 - 0.10 K/cu mm IG# 0.05 0.00 - 0.10 K/cu mm documented in thi s encounter Discharge Instructions Instructions Antonio Rodriguez PA-C - 07/12/2017Thank you for choosing [facility]. You were jorge gnosed with undifferentiated chest pain. It is likely related to your recent surgery. You had elevated cardiac enzymes, but remained in a negative range. Cardiology was consult ed and recommended that you be discharged home with appropriate follow up. Please follow up with your primary care physician and your oncologist regarding your recent hospitalization. Return to the emergency department if you have any new chest pain, shortness of breath, pro fuse sweating, nausea, vomiting, fever, or any other new or concerning symptoms. Failure to return could result in potential . Be well. AttachmentsThe following attachments cannot be sent through Care Everywhere.Chest Pain (Eng diony)documented in this encounter Medications at Time of [...] + | CAPILLARY BLOOD | Routin | 07/12/2017 | Left sided chest | Results for this | | GLUCOSE (NO CHG), | e | 12:51 PM | pain | procedure are in the | | POC | | PDT | | results section. | + +--------+ + + + | TROPONIN I, PLASMA | Urgent | 07/12/2017 | | Results for this | | | | 12:46 PM | | procedure are in the | | | | PDT | | results section. | + +--------+ + + + | CAPILLARY BLOOD | Routin | 07/12/2017 | Left sided chest | Results for this | | GLUCOSE (NO CHG), | e | 9:28 AM | pain | procedure are in the | | POC | | PDT | | results section. | + +--------+ + + + | TROPONIN I, PLASMA | Routin | 07/12/2017 | | Results for this | | | e | 8:31 AM | | procedure are in the | | | | PDT | | results section. | + +--------+ + + + | 12 LEAD ECG | Routin | 07/12/2017 | | Results for this | | | e | 8:02 AM | | procedure are in the | | | | PDT | | results section. | + +--------+ + + + | 12 LEAD ECG | Routin | 07/12/2017 | | Results for this | | | e | 3:25 AM | | procedure are in the | | | | PDT | | results section. | + +--------+ + + + | CTA CHEST PULMONARY | Urgent | 07/12/2017 | | Results for this | | EMBOLISM W CONTRAST | | 3:15 AM | | procedure are in the | | | | PDT | | results section. | + +--------+ + + + | TROPONIN I, PLASMA | Urgent | 07/12/2017 | | Results for this | | | | 2:48 AM | | procedure are in the | | | | PDT | | results section. | + +--------+ + + + | X-RAY CHEST 2 VIEW | Urgent | 07/12/2017 | | Results for this | | | | 1:34 AM | | procedure are in the | | | | PDT | | results section. | + +--------+ + + + | TROPONIN, POC | Urgent | 07/12/2017 | | Results for this | | | | 12:42 AM | | procedure are in the | | | | PDT | | results section. | + +--------+ + + + | RAINBOW HOLD TUBE - | Urgent | 07/12/2017 | | | | RED TOP | | 12:40 AM | | | | | | PDT | | | + +--------+ + + + | 12 LEAD ECG | Routin | 07/12/2017 | | Results for this | | | e | 12:25 AM | | procedure are in the | | | | PDT | | results section. | + +--------+ + + + | CBC AND AUTO DIFF | Urgent | 07/12/2017 | | Results for this | | | | 12:22 AM | | procedure are in the | | | | PDT | | results section. | + +--------+ + + + | INR | Urgent | 07/12/2017 | | Results for this | | | | 12:22 AM | | procedure are in the | | | | PDT | | results section. | + +--------+ + + + | CBC, WITH | Urgent | 07/12/2017 | | Results for this | | DIFFERENTIAL | | 12:22 AM | | procedure are in the | | | | PDT | | results section. | + +--------+ + + + | COMPLETE METABOLIC | Urgent | 07/12/2017 | | Results for this | | SET | | 12:22 AM | | procedure are in the | | (NA,K,CL,CO2,BUN,CRE | | PDT | | results section. | | AT,GLUC,CA,AST,ALT,B | | | | | | TEOFILO TOTAL,ALK | | | | | | PHOS,ALB,PROT TOTAL) | | | | | + +--------+ + + + | APTT (ACT. PART. | Urgent | 07/12/2017 | | Results for this | | THROMBO TIME) | | 12:22 AM | | procedure are in the | | | | PDT | | results section. | + +--------+ + + + | MAGNESIUM, PLASMA | Urgent | 07/12/2017 | | Results for this | | | | 12:22 AM | | procedure are in the | | | | PDT | | results section. | + +--------+ + + + | ED INFORMATION | Routin | 07/12/2017 | | Results for this | | EXCHANGE | e | 12:20 AM | | procedure are in the | | | | PDT | | results section. | + +--------+ + + + documented in this encounter Results CAPILLARY BLOOD GLUCOSE (NO CHG), POC (07/12/2017 12:51 PM PDT) + +---------+ + + + | Component | Value | Ref Range | Performed | Pathologist | | | | | At | Signature | + +---------+ + + + | BLOOD | 188 (H) | 70 - 99 mg/dL | [facility] - | [...] [facility] | [address] | [place], [place] | | | [facility] | [facility] | [address] | | | TESTS | | | | + + + + + TROPONIN I, PLASMA (07/12/2017 12:46 PM PDT) + +-------+ + + + | Component | Value | Ref Range | Performed | Pathologist | | | | | At | Signature | + +-------+ + + + | TROPONIN I | 0.08 | <0.80 ng/mL | [facility] | | | | | [...] | + + + + + | [facility] | [address] | [place] [address] | | | SERVICES, CORE | [address] | | | + + + + + CAPILLARY BLOOD GLUCOSE (NO CHG), POC (07/12/2017 9:28 AM PDT) + +---------+ + + + | Component | Value | Ref Range | Performed | Pathologist | | | | | At | Signature | + +---------+ + + + | BLOOD | 224 (H) | 70 - 99 mg/dL | [facility] - | | | GLUCOSE, | [...] [facility] | [address] | [place], [place] | | | [facility] | [address] | [address] | | | TESTS | | | | + + + + + TROPONIN I, PLASMA (07/12/2017 8:31 AM PDT) + +-------+ + + + | Component | Value | Ref Range | Performed | Pathologist | | | | | At | Signature | + +-------+ + + + | TROPONIN I | 0.08 | <0.80 ng/mL | [facility] | | | | | | LABORATORY | | | | | | SERVICES, | | | | | | CORE | | + +-------+ + + + + + | Specimen | + + | Blood - Blood | | (substance) | + + + + + | Narrative | Performed At | + + + | (6 hours after baseline result) | [facility] | | | LABORATORY | | | SERVICES, CORE | + + + + + + + + | Performing | Address | City/State/Zipcode | Phone Number | | Organization | | | | + + + + + | [facility] | [address] | [place] [address] | | | SERVICES, CORE | [address] | | | + + + + + 12 LEAD ECG (07/12/2017 8:02 AM PDT) + + + + + + | Component | Value | Ref Range | Performed | Pathologist | | | | | At | Signature | + + + + + + | VENTRICULAR | 75 | bpm | [facility] | | | RATE | | | OF | | | | | | CARDIOLOGY | | + + + + + + | ATRIAL RATE | 75 | ms | [facility] | | | | | | OF | | | | | | CARDIOLOGY | | + + + + + + | P-R | 142 | ms | [facility] | | | INTERVAL | | | OF | | | | | | CARDIOLOGY | | + + + + + + | P AXIS | -28 | deg | [facility] | | | | | | OF | | | | | | CARDIOLOGY | | + + + + + + | QRS | 94 | ms | [facility] | | | DURATION | | | OF | | | | | | CARDIOLOGY | | + + + + + + | QT | 377 | ms | [facility] | | | | | | OF | | | | | | CARDIOLOGY | | + + + + + + | QTC-BAZETT | 421 | ms | [facility] | | | | | | OF | | | | | | CARDIOLOGY | | + + + + + + | R AXIS | -56 | deg | [facility] | | | | | | OF | | | | | | CARDIOLOGY | | + + + + + + | T AXIS | 17 | deg | [facility] | | | | | | OF | | | | | | CARDIOLOGY | | + + + + + + | ECG | Sinus rhythm | | [facility] | | | IMPRESSION | | | OF | | | | | | CARDIOLOGY | | + + + + + + | ECG | Consider anterior | | [facility] | | | IMPRESSION | infarct- BORDERLINE ECG | | OF | | | | - | | CARDIOLOGY | | + + + + + + | ECG | Electronically signed | | [facility] | | | IMPRESSION | by: DEWEY MARKS | | OF | | | | 07-12-2017 23:34:43 | | CARDIOLOGY | | + + [...] + + + + + | [facility] | [address] | [place], [place] | | | CARDIOLOGY | [address] | [address] | | + + + + + 12 LEAD ECG (07/12/2017 3:25 AM PDT) + + + + + + | Component | Value | Ref Range | Performed | Pathologist | | | | | At | Signature | + + + + + + | VENTRICULAR | 83 | bpm | [facility] | | | RATE | | | OF | | | | | | CARDIOLOGY | | + + + + + + | ATRIAL RATE | 83 | ms | [facility] | | | | | | OF | | | | | | CARDIOLOGY | | + + + + + + | P-R | 159 | ms | [facility] | | | INTERVAL | | | OF | | | | | | CARDIOLOGY | | + + + + + + | P AXIS | 36 | deg | [facility] | | | | | | OF | | | | | | CARDIOLOGY | | + + + + + + | QRS | 90 | ms | [facility] | | | DURATION | | | OF | | | | | | CARDIOLOGY | | + + + + + + | QT | 362 | ms | [facility] | | | | | | OF | | | | | | CARDIOLOGY | | + + + + + + | QTC-CHRISTIAN | 425 | ms | [facility] | | | | | | OF | | | | | | CARDIOLOGY | | + + + + + + | R AXIS | -64 | deg | [facility] | | | | | | OF | | | | | | CARDIOLOGY | | + + + + + + | T AXIS | 17 | deg | [facility] | | | | | | OF | | | | | | CARDIOLOGY | | + + + + + + | ECG | Sinus rhythm | | [facility] | | | IMPRESSION | | | OF | | | | | | CARDIOLOGY | | + + + + + + | ECG | Consider anterior | | [facility] | | | IMPRESSION | infarct- BORDERLINE ECG | | OF | | | | - | | CARDIOLOGY | | + + + + + + | ECG | Electronically signed | | [facility] | | | IMPRESSION | by: DEWEY MARKS | | OF | | | | 07-12-2017 23:34:57 | | CARDIOLOGY | | + + [...] + + + + + | [facility] | [address] | [place], [place] | | | CARDIOLOGY | [address] | [address] | | + + + + + CTA CHEST PULMONARY EMBOLISM W CONTRAST (07/12/2017 3:15 AM PDT) + + | Specimen | + + | | + + + + + | Narrative | Performed At | + + + | EXAM: CTA CHEST PULMONARY EMBOLISM HISTORY: Non-small cell lung | [facility] | | cancer post left lower lobectomy. Chest pain acutely. COMPARISON: | RADIOLOGY VOICE | | 07/09/17 radiograph, thoracic spine MRI 05/20/[address] 04/09/17, CT | RECOGNITION | | 03/01/17. TECHNIQUE: Following uneventful administration of 80 ml | | | Omnipaque 350 intravenous contrast helical scanning was obtained of | | | the chest and reviewed in soft tissue and lung algorithm. Oblique MIP | | | images were also generated. FINDINGS: Opacification is | | | adequate for assessment of pulmonary artery emboli. No filling | | | defect in the pulmonary arteries to the proximal subsegmental level. | | | No CT evidence of right heart strain. Surgical changes are present | | | from prior left lower lobectomy. There is a moderate left pleural | | | effusion, as on prior outside radiograph. A loculated, mildly | | | hyperdense component tracked along the left anterior mediastinal | | | order/staple line. The lungs are mildly edematous. No right lung | | | consolidation is present. Few mildly prominent mediastinal and right | | | hilar nodes are present, unchanged from prior CT. Small sub-5 mm | | | peripheral right lung nodules are present, likely postinflammatory. | | | A healing left fifth rib fracture is present (image 93), presumably | | | related to recent surgery. There is a small sclerotic focus in the | | | left side of T12 vertebral body (coronal image 193, more completely | | | evaluated on prior MRI. Coarse right chest wall/breast calcifications | | | are noted. IMPRESSION: No pulmonary embolism. Surgical | | | changes from interval left lower lobectomy. Moderate left pleural | | | effusion. Mildly hyperdense/loculated fluid component along the staple | | | line likely represents a small amount postoperative blood products. | | | Healing left fifth rib fracture, likely related to recent surgery. | | | Noncritical findings were relayed to the emergency department at | | | 3:53 AM by transporter radiology Dr. Kamara I have personally | | | reviewed the images and, if necessary, edited the report. I agree | | | with the report as now presented. | | + + + + + | Procedure Note | + + | Service Account, [employer] [facility] Interface - 07/12/2017 8:03 AM PDT EXAM: CTA CHEST | | PULMONARY EMBOLISM HISTORY: Non-small cell lung cancer post left lower lobectomy. Chest | | pain acutely.COMPARISON: 07/09/17 radiograph, thoracic spine MRI 05/20/[address] 04/09/17, CT | | 03/01/17.TECHNIQUE: Following uneventful administration of 80 ml Omnipaque 350 | | intravenous contrast helical scanning was obtained of the chest and reviewed in soft | | tissue and lung algorithm. Oblique MIP images were also generated.FINDINGS:Opacification | | is adequate for assessment of pulmonary artery emboli.No filling defect in the | | pulmonary arteries to the proximal subsegmental level. No CT evidence of right heart | | strain.Surgical changes are present from prior left lower lobectomy. There is a moderate | | left pleural effusion, as on prior outside radiograph. A loculated, mildly hyperdense | | component tracked along the left anterior mediastinal order/staple line. The lungs are | | mildly edematous. No right lung consolidation is present. Few mildly prominent | | mediastinal and right hilar nodes are present, unchanged from prior CT. Small sub-5 mm | | peripheral right lung nodules are present, likely postinflammatory.A healing left fifth | | rib fracture is present (image 93), presumably related to recent surgery.There is a | | small sclerotic focus in the left side of T12 vertebral body (coronal image 193, more | | completely evaluated on prior MRI. Coarse right chest wall/breast calcifications are | | noted.IMPRESSION:No pulmonary embolism.Surgical changes from interval left lower | | lobectomy. Moderate left pleural effusion. Mildly hyperdense/loculated fluid component | | along the staple line likely represents a small amount postoperative blood | | products.Healing left fifth rib fracture, likely related to recent surgery.Noncritical | | findings were relayed to the emergency department at 3:53 AM by transporter radiology . | | Speedy have personally reviewed the images and, if necessary, edited the report. I | | agree with the report as now presented. | |No pulmonary embolism. | | | |Surgical changes from interval left lower lobectomy. Moderate left pleural effusion. Mildly hyperdense/loculated fluid component along the staple line likely represents a small amount postoperative blood products. | | | |Healing left fifth rib fracture, likely related to recent surgery. | | | |Noncritical findings were relayed to the emergency department at 3:53 AM by radiology resid ent Dr. Kamara | | | | | |I have personally reviewed the images and, if necessary, edited the report. I agree with t he report as now presented. | + + + +---------+ + + | Performing | Address | City/State/Zipcode | Phone Number | | Organization | | | | + +---------+ + + | [facility] | | | | | VOICE RECOGNITION | | | | + +---------+ + + TROPONIN I, PLASMA (07/12/2017 2:48 AM PDT) + +-------+ + + + | Component | Value | Ref Range | Performed | Pathologist | | | | | At | Signature | + +-------+ + + + | TROPONIN I | 0.09 | <0.80 ng/mL | [facility] | | | | | [...] | + + + + + | [facility] | [address] | [place] [address] | | | SERVICES, TIMMY | [address] | | | + + + + + X-RAY CHEST 2 VIEW (07/12/2017 1:34 AM PDT) + + | Specimen | + + | | + + + + + | Narrative | Performed At | + + + | EXAM: CHEST 2 VIEWS HISTORY: Acute chest pain. 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 COMPARISON: | RECOGNITION | | Outside radiograph 07/09/2017 FINDINGS: The cardiac silhouette | | | is partially obscured by left pleural fluid but the visualized | | | portions are unremarkable. Mediastinal contours are normal. Changes of | | | left lower lobectomy with left-sided volume loss and mild leftward | | | mediastinal shift. Mild to moderate volume left pleural fluid is | | | similar to outside radiograph. No pneumothorax or right pleural fluid. | | | No evidence for pulmonary edema No focal consolidation. | | | IMPRESSION: Expected postsurgical changes of left lower | | | lobectomy. Moderate left pleural effusion. No focal consolidation. | | | I have personally reviewed the images and, if necessary, | | | edited the report. I agree with the report as now presented. | | + + + + + | Procedure Note | + + | Service Account, [employer] In Interface - 07/12/2017 9:07 AM PDT EXAM: CHEST 2 | | VIEWS HISTORY: Acute chest pain. History of invasive adenocarcinoma of the superior | | segment of the left lower lobe status post left lower lobectomy in June | | 2018.COMPARISON: Outside radiograph 07/09/2017FINDINGS: The cardiac silhouette is | | partially obscured by left pleural fluid but the visualized portions are unremarkable. | | Mediastinal contours are normal. Changes of left lower lobectomy with left-sided volume | | loss and mild leftward mediastinal shift. Mild to moderate volume left pleural fluid is | | similar to outside radiograph. No pneumothorax or right pleural fluid. No evidence for | | pulmonary edema No focal consolidation.IMPRESSION: Expected postsurgical changes of left | | lower lobectomy. Moderate left pleural effusion.No focal consolidation.I have | | personally reviewed the images and, if necessary, edited the report. I agree with the | | report as now presented. | | | |Expected postsurgical changes of left lower lobectomy. Moderate left pleural effusion. | | | |No focal consolidation. | | | | | |I have personally reviewed the images and, if necessary, edited the report. I agree with t katiuska report as now presented. | + + + +---------+ + + | Performing | Address | City/State/Zipcode | Phone Number | | Organization | | | | + +---------+ + + | [facility] | | | | | VOICE RECOGNITION | | | | + +---------+ + + TROPONIN, POC (07/12/2017 12:42 AM PDT) + +-------+ + + + | Component | Value | Ref Range | Performed | Pathologist | | | | | At | Signature | + +-------+ + + + | TROPONIN, | <0.02 | 0.0 - 0.49 | [facility] - | | | POC | | ng/mL | [facility] | | | | | | RONAN [...] [facility] | [address] | [place], [place] | | | RONAN [facility] [place] | [address] | [address] | | | TESTS | | | | + + + + + RAINBOW HOLD TUBE - RED TOP (07/12/2017 12:40 AM PDT) + + | Specimen | + + | Blood - Blood | | (substance) | + + + + + + + | Performing | Address | City/State/Zipcode | Phone Number | | Organization | | | | + + + + + | [facility] | [address] | [place] [address] | | | SERVICES, CORE | [address] | | | + + + + + 12 LEAD ECG (07/12/2017 12:25 AM PDT) + + + + + + | Component | Value | Ref Range | Performed | Pathologist | | | | | At | Signature | + + + + + + | VENTRICULAR | 97 | bpm | [facility] | | | RATE | | | OF | | | | | | CARDIOLOGY | | + + + + + + | ATRIAL RATE | 97 | ms | [facility] | | | | | | OF | | | | | | CARDIOLOGY | | + + + + + + | P-R | 134 | ms | [facility] | | | INTERVAL | | | OF | | | | | | CARDIOLOGY | | + + + + + + | P AXIS | 4 | deg | [facility] | | | | | | OF | | | | | | CARDIOLOGY | | + + + + + + | QRS | 93 | ms | [facility] | | | DURATION | | | OF | | | | | | CARDIOLOGY | | + + + + + + | QT | 326 | ms | [facility] | | | | | | OF | | | | | | CARDIOLOGY | | + + + + + + | QTC-CHRISTIAN | 414 | ms | [facility] | | | | | | OF | | | | | | CARDIOLOGY | | + + + + + + | R AXIS | -59 | deg | [facility] | | | | | | OF | | | | | | CARDIOLOGY | | + + + + + + | T AXIS | 37 | deg | [facility] | | | | | | OF | | | | | | CARDIOLOGY | | + + + + + + | ECG | Sinus rhythm | | [facility] | | | IMPRESSION | | | OF | | | | | | CARDIOLOGY | | + + + + + + | ECG | Consider anterior | | [facility] | | | IMPRESSION | infarct- BORDERLINE ECG | | OF | | | | - | | CARDIOLOGY | | + + + + + + | ECG | Electronically signed | | [facility] | | | IMPRESSION | by: DEWEY MARKS | | OF | | | | 07-13-2017 11:53:58 | | CARDIOLOGY | | + + [...] DEPT OF | [address] | [place], [place] | | | CARDIOLOGY | [address] | [address] | | + + + + + CBC AND AUTO DIFF (07/12/2017 12:22 AM PDT) + + + + + + | Component | Value | Ref Range | Performed | Pathologist | | | | | At | Signature | + + + + + + | WHITE CELL | 12.15 (H) | 3.50 - 10.80 | [facility] | | | COUNT | | K/cu mm | LABORATORY | | | | | | SERVICES, | | | | | | CORE | | + + + + + + | RED CELL | 3.87 (L) | 4.00 - 5.20 | [facility] | | | COUNT | | M/cu mm | LABORATORY | | | | | | SERVICES, | | | | | | CORE | | + + + + + + | HEMOGLOBIN | 11.4 (L) | 12.0 - 16.0 | [facility] | | | | | g/dL | LABORATORY | | | | | | SERVICES, | | | | | | CORE | | + + + + + + | HEMATOCRIT | 34.1 (L) | 36.0 - 46.0 % | [facility] | | | | | | LABORATORY | | | | | | SERVICES, | | | | | | CORE | | + + + + + + | MCV | 88.1 | 80.0 - 100.0 fL | [facility] | | | | | | LABORATORY | | | | | | SERVICES, | | | | | | CORE | | + + + + + + | MCHC | 33.4 | 32.0 - 36.0 | [facility] | | | | | g/dL | LABORATORY | | | | | | SERVICES, | | | | | | CORE | | + + + + + + | RDW SD | 42.5 | 35.1 - 46.3 fL | [facility] | | | | | | LABORATORY | | | | | | SERVICES, | | | | | | CORE | | + + + + + + | PLATELET | 524 (H) | 150 - 400 K/cu | [facility] | | | COUNT | | mm | LABORATORY | | | | | | SERVICES, | | | | | | CORE | | + + + + + + | MPV | 9.8 | 9.7 - 12.3 fL | [facility] [...] + + + + | NEUTROPHIL | 58.1 | 50.0 - 70.0 % | [facility] | | | % | | | LABORATORY | | | | | | SERVICES, | | | | | | CORE | | + + + + + + | LYMPHOCYTE | 25.3 | 18.0 - 42.0 % | [facility] | | | % | | | LABORATORY | | | | | | SERVICES, | | | | | | CORE | | + + + + + + | MONOCYTE % | 6.6 | 3.5 - 9.0 % | [facility] | | | | | | LABORATORY | | | | | | SERVICES, | | | | | | CORE | | + + + + + + | EOS % | 8.6 (H) | 1.0 - 3.0 % | [facility] | | | | | | LABORATORY | | | | | | SERVICES, | | | | | | CORE | | + + + + + + | BASO % | 1.0 | 0.0 - 2.0 % | [facility] | | | | | | LABORATORY | | | | | | SERVICES, | | | | | | CORE | | + + + + + + | IG% | 0.4Comment: Increased | 0.0 - 1.0 % | [facility] | | | | immature granulocytes | | LABORATORY | | | | (IG) define a left | | SERVICES, | | | | shift. Immature | | CORE | | | | granulocytes (IG) are an | | | | | | automated count of | | | | | | metamyelocytes, | | | | | | myelocytes and | | | | | | promyelocytes. Bands | | | | | | are not included in the | | | | | | IG count. Bands are | | | | | | included in the | | | | | | neutrophil count. | | | | + + + + + + | NEUTROPHIL | 7.06 | 1.80 - 7.70 | [facility] | | | # | | K/cu mm | LABORATORY | | | | | | SERVICES, | | | | | | CORE | | + + + + + + | LYMPHOCYTE | 3.08 | 1.00 - 4.80 | [facility] | | | # | | K/cu mm | LABORATORY | | | | | | SERVICES, | | | | | | CORE | | + + + + + + | MONOCYTE # | 0.80 | 0.10 - 0.90 | [facility] | | | | | K/cu mm | LABORATORY | | | | | | SERVICES, | | | | | | CORE | | + + + + + + | EOS # | 1.04 (H) | 0.00 - 0.50 | [facility] | | | | | K/cu mm | LABORATORY | | | | | | SERVICES, | | | | | | CORE | | + + + + + + | BASO # | 0.12 (H) | 0.00 - 0.10 | [facility] | | | | | K/cu mm | LABORATORY | | | | | | SERVICES, | | | | | | CORE | | + + + + + + | IG# | 0.05 | 0.00 - 0.10 | [...] and IG# effective | [facility] | | 07/12/2107 Increased immature granulocytes (IG) define a left shift. | LABORATORY | | Immature granulocytes (IG) are an automated count of metamyelocytes, | SERVICES, CORE | | myelocytes and promyelocytes. Bands are not included in the IG count. | | | Bands are included in the neutrophil count. | | + + + + + + + + | Performing | Address | City/State/Zipcode | Phone Number | | Organization | | | | + + + + + | [facility] | [address] | [place] [address] | | | QUANG, TIMMY | [address] | | | + + + + + MAGNESIUM, PLASMA (07/12/2017 12:22 AM PDT) + +-------+ + + + | Component | Value | Ref Range | Performed | Pathologist | | | | | At | Signature | + +-------+ + + + | MAGNESIUM,P | 2.1 | 1.6 - 2.6 mg/dL | [facility] | | | LASMA | | | LABORATORY | | | | | | QUANG, | | | | | | CORE | | + +-------+ + + + + + | Specimen | + + | Blood - Blood | | (substance) | + + + + + | Narrative | Performed At | + + + | Reference range change effective 10/16/16. | [facility] | | | LABORATORY | | | SERVICES, CORE | + + + + + + + + | Performing | Address | City/State/Zipcode | Phone Number | | Organization | | | | + + + + + | [facility] | [address] | [place] [address] | | | SERVICES, CORE | [address] | | | + + + + + APTT (ACT. PART. THROMBO TIME) (07/12/2017 12:22 AM PDT) + + + + + + | Component | Value | Ref Range | Performed | Pathologist | | | | | At | Signature | + + + + + + | APTT | 24.6 (L) | 26.0 - 36.0 | [facility] | | | | | seconds | LABORATORY | | | | | | QUANG, | | | | | | CORE | | + + + + + + + + | Specimen | + + | Blood - Blood | | (substance) | + + + + + | Narrative | Performed At | + + + | If on Coumadin APTT values for monitoring heparin therapy may be | [facility] | | affected by specimens processed >1 hour after collection. APTT | LABORATORY | | Therapeutic Range: (75 - 120) sec | SERVICES, CORE | | Heparin levels of 0.35 - 0.7 U/mL | | + + + + + + + + | Performing | Address | City/State/Zipcode | Phone Number | | Organization | | | | + + + + + | [facility] | [address] | [place] [address] | | | SERVICES, CORE | [address] | | | + + + + + INR (07/12/2017 12:22 AM PDT) + +-------+ + + + | Component | Value | Ref Range | Performed | Pathologist | | | | | At | Signature | + +-------+ + + + | INR | 0.91 | 0.90 - 1.20 INR | [facility] | | | | | | LABORATORY | | | | | | SERVICES, | | | | | | CORE | | + +-------+ + + + + + | Specimen | + + | Blood - Blood | | (substance) | + + + + + | Narrative | Performed At | + + + | If on Coumadin INR Therapeutic ranges for full anticoagulation: | [facility] | | INR for Venous Thromboembolism (2.0 - 3.0) INR | LABORATORY | | INR for most patients with mech. valves (2.5 - 3.5) INR | SERVICES, CORE | + + + + + + + + | Performing | Address | City/State/Zipcode | Phone Number | | Organization | | | | + + + + + | [facility] | [address] | [place] [address] | | | SERVICES, CORE | [address] | | | + + + + + COMPLETE METABOLIC SET (NA,K,CL,CO2,BUN,CREAT,GLUC,CA,AST,ALT,BILI TOTAL,ALK PHOS,ALB,PROT TOTAL) (07/12/2017 12:22 AM PDT) + + + + + + | Component | Value | Ref Range | Performed | Pathologist | | | | | At | Signature | + + + + + + | GLUCOSE, | 390 (H) | 70 - 99 mg/dL | [facility] | | | PLASMA | | | LABORATORY | | | (LAB) | | | SERVICES, | | | | | | CORE | | + + + + + + | BUN, PLASMA | 19 | 6 - 20 mg/dL | [facility] | | | (LAB) | | | LABORATORY | | | | | | SERVICES, | | | | | | CORE | | + + + + + + | CREATININE | 0.62 | 0.60 - 1.10 | [facility] | | | PLASMA | | mg/dL | LABORATORY | | | (LAB) | | | SERVICES, | | | | | | CORE | | + + + + + + | EGFR | >60 | >60 mL/min | [facility] | | | - | | | LABORATORY | | | BULGARIAN | | | SERVICES, | | | | | | CORE | | + + + + + + | EGFR NON | >60 | >60 mL/min | [facility] | | | -RADHA | | | LABORATORY | | | RICAN | | | SERVICES, | | | | | | CORE | | + + + + + + | SODIUM, | 135 (L) | 136 - 145 | [facility] | | | PLASMA | | mmol/L | LABORATORY | | | (LAB) | | | SERVICES, | | | | | | CORE | | + + + + + + | POTASSIUM, | 4.6 | 3.4 - 5.0 | [facility] | [...] + + + | TOTAL CO2, | 25 | 21 - 32 mmol/L | [facility] [...] + + + + | CALCIUM(ALB | 10.3 (H) | 8.6 - 10.2 | [facility] [...] + + + + | TOTAL | 8.6 (H) | 6.4 - 8.2 g/dL | [facility] | | | PROTEIN, | | | LABORATORY | | | PLASMA | | | SERVICES, | | | (LAB) | | | CORE | | + + + + + + | ALBUMIN, | 2.8 (L) | 3.5 - 4.7 g/dL | [facility] | | | PLASMA | | | LABORATORY | | | (LAB) | | | SERVICES, | | | | | | CORE | | + + + + + + | ALK PHOS | 188 (H) | 42 - 98 U/L | [facility] | | | | | | LABORATORY | | | | | | SERVICES, | | | | | | CORE | | + + + + + + | AST(SGOT) | 29 | <=41 U/L | [facility] | | | | | | LABORATORY | | | | | | SERVICES, | | | | | | CORE | | + + + + + + | ALT (SGPT) | 20 | <=60 U/L | [facility] | | [...] + + + + | POTASSIUM | Sl Hemo | | [facility] | | | CMNT | | | LABORATORY | | | | | | SERVICES, | | | | | | CORE | | + + + + + + | AST CMNT | Sl Hemo | | [facility] | | | | | | LABORATORY | | | | | | SERVICES, | | | | | | CORE | | + + + + + + + + | Specimen | + + | Blood - Blood | | (substance) | + + + + + | Narrative | Performed At | + + + | Sample hemolyzed. Results for K, Total Bili, Direct Bili, AST, | [facility] | | LDH, or HDL may be inaccurate. Refer to comment under test result. | LABORATORY | | GFR is estimated using the MDRD equation recommended by the National | SERVICES, CORE | | Kidney Disease Education Program. Estimated GFR Interpretive | | | Information: <60 mL/min/1.73 sq m Chronic Kidney | | | Disease <15 mL/min/1.73 sq m Kidney Failure | | | Estimated GFR greater that 60 mL/min/1.73 sq m is of limited clinical | | | value. The MDRD equation is not valid in the following situations: | | | - Patients under 18 years of age - Severe malnutrition or obesity | | | - Vegetarian diet - Rapidly changing kidney function - Amputees, | | | paraplegics, or other muscle-wasting diseses | | + + + + + + + + | Performing | Address | City/State/Zipcode | Phone Number | | Organization | | | | + + + + + | [facility] | [address] | [place] [address] | | | QUANG, TIMMY | [address] | | | + + + + + ED INFORMATION EXCHANGE (07/12/2017 12:20 AM PDT) + + | Specimen | + + | | + + + + + | Narrative | Performed At | + + + | [id number] This patient has registered at the | COLLECTIVE | | [facility] Emergency Department For more | MEDICAL | | information visit: | TECHNOLOGIES | | [email or web address] | | | [email or web address] Security Events No recent Security Events currently on file | | | ED Care Guidelines There are currently no ED Care Guidelines in | | | KIMANI for this patient. Please check your facility's medical records | | | system. Care History Medical/Surgical 05/01/17 12:00 AM [facility] Pelayo | | | [facility] Recommendation: This patient has had 5 or | | | more Emergency Department visits in the last 12 months.Patient | | | requires education on the scope and purpose of the ED as an acute | | | care provider not a Primary Care Provider and should not be utilized | | | for chronic conditions. If patient returns to ED please contact | | | Community Health WorkerDora at [phone]. These are | | | guidelines and the provider should exercise clinical judgment when | | | providing care. Recent Emergency Department Visit Summary | | | Admit Date Facility City State Type Major Type Diagnoses or Chief | | | Complaint July 12, 2017 [facility] [place] | | | [place] Emergency Emergency 10,800. CP May 23, 2017 [facility] | | | [facility] ED [facility]. [place] Emergency Emergency back pain | | | Dorsalgia, unspecified Apr 30, 2017 [facility] [place]. [place] | | | Emergency Emergency Allergy status to sulfonamides status | | | Nicotine dependence, unspecified, uncomplicated Other long | | | term (current) drug therapy Anxiety disorder, unspecified | | | Allergy status to other drugs, medicaments and biological substances | | | status Allergy status to narcotic agent status Type 2 | | | diabetes mellitus without complications senior care (current) use | | | of insulin Essential (primary) hypertension Latex allergy | | | status Apr 10, 2017 [facility] ED [facility]. [place] Emergency | | | Emergency dental pain Dental caries, unspecified | | | Mar 01, 2017 [facility] [place] Emergency Emergency | | | Precordial pain Other nonspecific abnormal finding of lung | | | field Nicotine dependence, unspecified, uncomplicated Long | | | term (current) use of insulin Old myocardial infarction | | | Allergy status to narcotic agent status senior care (current) use | | | of aspirin Essential (primary) hypertension Unspecified | | | asthma, uncomplicated Other [place] ([facility] drug therapy | | | Nov 22, 2016 [facility] [place] Emergency Emergency | | | Acquired absence of other specified parts of digestive tract | | | senior care (current) use of insulin Other [place] [facility] (current) | | | drug therapy Presence of coronary angioplasty implant and graft | | | hearing therapy director (current) use of aspirin Essential (primary) | | | hypertension Latex allergy status Unspecified asthma, | | | uncomplicated Dental caries, unspecified Allergy status to | | | narcotic agent status Nov 17, 2016 [facility]. [place] | | | Emergency Emergency Nicotine dependence, unspecified, | | | uncomplicated Acquired absence of other specified parts of | | | digestive tract OVEREXERTION FROM STRENUOUS MOVEMENT OR LOAD, | | | INIT senior care (current) use of insulin Allergy status to | | | narcotic agent status Type 2 diabetes mellitus without | | | complications Other plexiglas former (current) drug therapy Type | | | 1 diabetes mellitus without complications Strain of muscle, | | | fascia and tendon at neck level, initial encounter Allergy | | | status to sulfonamides status Aug 15, 2016 [facility] ED | | | [place] Emergency Emergency dental pain Other | | | specified disorders of teeth and supporting structures | | | Recent Inpatient Visit Summary Admit Date Facility [facility] State Type | | | Major Type Diagnoses or Chief Complaint Jun 18, 2017 [facility] | | | [facility] In[facility] anti coagulation | | | [place] Malignant neoplasm of lower lobe, left bronchus or lung | | | Other specified postprocedural states Other disorders of | | | lung Acute respiratory failure with hypoxia Jun 04, 2017 | [facility] Left lower | | | lobe carcinoma Feb 13, 2017 [facility] | | | Intensive Care Inpatient ST elevation (STEMI) myocardial | | | infarction of unspecified site Abnormal levels of other serum | | | enzymes Essential (primary) hypertension Type 2 diabetes | | | mellitus with other specified complication hearing therapy director (current) | | | use of insulin Chest pain, unspecified Acute on chronic | | | systolic (congestive) heart failure ST elevation (STEMI) | | | myocardial infarction involving left anterior descending coronary | | | artery E.D. Visit Count (12 mo.) Facility Visits [place] | | | [facility] [place] 1 [facility] ED 3 [facility] | | | [facility] 4 Total 8 Note: Visits indicate total known | | | visits. PDMP Report Unable to query PDMP. The above | | | information is provided for the sole purpose of patient treatment. | | | Use of this information beyond the terms of Data Sharing Memorandum of | | | Understanding and License Agreement is prohibited. In certain cases | | | not all visits may be represented. Consult the aforementioned | | | facilities for additional information. 2018 [employer] | | | 5o9. - [place], [place] - | | | [email or web address] | | + + + + + | Procedure Note | + + | Service Account, Rtf Results Inbound - 07/12/2017 12:22 AM PDT Formatting of this | | note might be different from the original.KIMANI?NOTIFICATION?07/12/2017 00:20?WILBER, | | MARY Lobato? patient has registered at the [facility] | | [place] Emergency Department For more information visit: | | [email or web address] Security | | EventsNo recent Security Events currently on fileED Care GuidelinesThere are currently | | no ED Care Guidelines in KIMANI for this patient. Please check your facility's medical | | records system.Care HistoryMedical/Surgical05/01/17 12:00 AM [facility] | | [facility] Recommendation:This patient has had 5 or more Emergency Department visits | | in the last 12 months.? Patient requires education on the scope and purpose of the ED as | | an acute care provider not a Primary Care Provider and should not be utilized for | | chronic conditions.?If patient returns to ED please contact Community Health Worker | | Dora at [phone].These are guidelines and the provider should exercise clinical | | judgment when providing care.Recent Emergency Department Visit SummaryAdmit Date | | Facility City State Type Major Type Diagnoses or Chief Complaint July 12, 2017 [place] | | [facility] [place] Emergency Emergency 10,800. CP May 23, 2017 | | [facility] ED [place] Emergency Emergency back pain Dorsalgia, | | unspecified Apr 30, 2017 [facility] [place] Emergency Emergency Allergy | | status to sulfonamides status Nicotine dependence, unspecified, uncomplicated | | Other [place] [facility] (current) drug therapy Anxiety disorder, unspecified Allergy | | status to other drugs, medicaments and biological substances status Allergy status to | | narcotic agent status Type 2 diabetes mellitus without complications hearing therapy director | | (current) use of insulin Essential (primary) hypertension Latex allergy status | | Apr 10, 2017 [facility] ED [facility] Emergency Emergency dental pain | | Dental caries, unspecified Mar 01, 2017 [facility] [place] Emergency | | Emergency Precordial pain Other nonspecific abnormal finding of lung field | | Nicotine dependence, unspecified, uncomplicated senior care (current) use of insulin | | Old myocardial infarction Allergy status to narcotic agent status senior care | | (current) use of aspirin Essential (primary) hypertension Unspecified asthma, | | uncomplicated Other plexiglas former (current) drug therapy Nov 22, 2016 [facility] [place] | | [place] Emergency Emergency Acquired absence of other specified parts of | | digestive tract hearing therapy director (current) use of insulin Other plexiglas former (current) drug | | therapy Presence of coronary angioplasty implant and graft senior care (current) use | | of aspirin Essential (primary) hypertension Latex allergy status Unspecified | | asthma, uncomplicated Dental caries, unspecified Allergy status to narcotic agent | | status Nov 17, 2016 [facility] [place] Emergency Emergency Nicotine | | dependence, unspecified, uncomplicated Acquired absence of other specified parts of | | digestive tract OVEREXERTION FROM STRENUOUS MOVEMENT OR LOAD, INIT hearing therapy director | | (current) use of insulin Allergy status to narcotic agent status Type 2 diabetes | | mellitus without complications Other [place] (current) drug therapy Type 1 | | diabetes mellitus without complications Strain of muscle, fascia and tendon at neck | | level, initial encounter Allergy status to sulfonamides status Aug 15, 2016 [facility] | | [facility] Emergency Emergency dental pain Other specified | | disorders of teeth and supporting structures Recent Inpatient Visit SummaryAdmit Date | | Facility [facility] State Type Major Type Diagnoses or Chief Complaint Jun 18, 2017 [facility] | | Anthony Guerrreo [place] Cardiology Inpatient anti coagulation [place] Malignant | | neoplasm of lower lobe, left bronchus or lung Other specified postprocedural states | | Other disorders of lung Acute respiratory failure with hypoxia Jun 04, 2017 [facility] | | Anthony Guerrero [place] Surgery Inpatient Left lower lobe carcinoma Feb 13, 2017 | | [facility] Bahman Lakhani. [place] Intensive Care Inpatient ST elevation (STEMI) | | myocardial infarction of unspecified site Abnormal levels of other serum enzymes | | Essential (primary) hypertension Type 2 diabetes mellitus with other specified | | complication hearing therapy director (current) use of insulin Chest pain, unspecified Acute | | on chronic systolic (congestive) heart failure ST elevation (STEMI) myocardial | | infarction involving left anterior descending coronary artery E.D. Visit Count (12 | | mo.)Facility Visits [facility] 1 [facility] ED 3 [facility] | | [facility] 4 Total 8 Note: Visits indicate total known visits. PDMP | | ReportUnable to query PDMP.The above information is provided for the sole purpose of | | patient treatment. Use of this information beyond the terms of Data Sharing Memorandum | | of Understanding and License Agreement is prohibited. In certain cases not all visits | | may be represented. Consult the aforementioned facilities for additional information. ? | | 2018 [employer]. [place], [place] - | | [email or web address] | | Essential (primary) hypertension | | Latex allergy status | | Unspecified asthma, uncomplicated | | Dental caries, unspecified | | Allergy status to narcotic agent status | | | |Nov 17, 2016 [facility]. [place] Emergency Emergency | | Nicotine dependence, unspecified, uncomplicated | | Acquired absence of other specified parts of digestive tract | | OVEREXERTION FROM STRENUOUS MOVEMENT OR LOAD, INIT | | hearing therapy director (current) use of insulin | | Allergy status to narcotic agent status | | Type 2 diabetes mellitus without complications | | Other plexiglas former (current) drug therapy | | Type 1 diabetes mellitus without complications | | Strain of muscle, fascia and tendon at neck level, initial encounter | | Allergy status to sulfonamides status | | | |Aug 15, 2016 [facility] ED [place]. [place] Emergency Emergency | | dental pain | | Other specified disorders of teeth and supporting structures | | | | | | | |Recent Inpatient Visit Summary | |Admit Date Facility City State Type Major Type Diagnoses or Chief Complaint | |Jun 18, 2017 [facility] Bahman Morales. [place] Cardiology Inpatient | | anti coagulation | | [place] | | Malignant neoplasm of lower lobe, left bronchus or lung | | Other specified postprocedural states | | Other disorders of lung | | Acute respiratory failure with hypoxia | | | |Jun 04, 2017 [facility] Anthony Morales. [place] Surgery Inpatient | | Left lower lobe carcinoma | | [facility] |[facility] [place] [facility] | ST elevation (STEMI) myocardial infarction of unspecified site | | Abnormal levels of other serum enzymes | | Essential (primary) hypertension | | Type 2 diabetes mellitus with other specified complication | | hearing therapy director (current) use of insulin | | Chest pain, unspecified | | Acute on chronic systolic (congestive) heart failure | | ST elevation (STEMI) myocardial infarction involving left anterior descending coronary a rtery | | | | | | | |E.D. Visit Count (12 mo.) | |Facility Visits | |[facility] 1 | |[facility] ED 3 | |[facility] 4 | |Total 8 | |Note: Visits indicate total known visits. | | | |PDMP Report | |Unable to query PDMP. | | | |The above information is provided for the sole purpose of patient treatment. Use of this in formation beyond the terms of Data Sharing Memorandum of Understanding and License Agreement is prohibited. In | |certain cases not all visits may be represented. Consult the aforementioned facilities for additional information. | |? 2018 [employer] - [place], [place] - [email or web address] | + + + + + + + | Performing | Address | City/State/Zipcode | Phone Number | | Organization | | | | + + + + + | [employer] | [address] | [place], [place] | [phone] | | [employer] | [address] | [address] | | + + + + + documented in this encounter Visit Diagnoses + + | Diagnosis | + + | Left sided chest pain - Primary | + + | Non-small cell cancer of left lung (HCC) | + + documented in this encounter Administered Medications + +--------+ +--------+------+------+ | Medication Order | MAR | Action | Dose | Rate | Site | | | Action | Date | | | | + +--------+ +--------+------+------+ | acetaminophen (TYLENOL) tablet | Given | 07/13/19 | 650 mg | | | | 650 mg 650 mg, oral, EVERY 4 | | 18 4:18 | | | | | HOURS NEEDED, Starting Fri | | PM PDT | | | | | 07/12/17 at 0440, Until Fri | | | | | | | 07/12/17 at 2230, mild pain, | | | | | | | headache | | | | | | + +--------+ +--------+------+------+ +-------+ +--------+---+---+ | Given | 07/13/19 | 650 mg | | | | | 18 11:20 | | | | | | AM PDT | | | | +-------+ +--------+---+---+ +---+---+ | | | +---+---+ + +-------+ +-------+---+---+ | aspirin chewable tablet 81 mg | Given | 07/13/19 | 81 mg | | | | 81 mg, oral, DAILY, First dose on | | 18 9:30 | | | | | Sat07/12/17 at 1045, Until | | AM PDT | | | | | Discontinued | | | | | | + +-------+ +-------+---+---+ +---+---+ | | | +---+---+ + +-------+ +-------+---+---+ | atorvastatin (LIPITOR) tablet | Given | 07/13/19 | 40 mg | | | | 40 mg 40 mg, oral, DAILY, First | | 18 9:31 | | | | | dose on Sat07/12/17 at 1045, | | AM PDT | | | | | Until Discontinued | | | | | | + +-------+ +-------+---+---+ +---+---+ | | | +---+---+ + +-------+ +-------+---+---+ | clopidogrel (PLAVIX) tablet 75 | Given | 07/13/19 | 75 mg | | | | mg 75 mg, oral, DAILY, First | | 18 9:29 | | | | | dose on Sat07/12/17 at 1045, | | AM PDT | | | | | Until Discontinued | | | | | | + +-------+ +-------+---+---+ + +---+ | | | + +---+ | dextrose 50 % in water IV 25 mL | | | 25 mL, intravenous, NEEDED, | | | Starting Sat07/12/17 at 0537, | | | Until Sat07/12/17 at 2230, CBG | | | less than 70 mg/dL if patient | | | unable to take PO, per Adult | | | Hypoglycemia Protocol | | + +---+ | | | + +---+ + +-------+ +-------+---+---+ | furosemide (LASIX) tablet 40 mg | Given | 07/13/19 | 40 mg | | | | 40 mg, oral, DAILY, First dose | | 18 9:29 | | | | | on Sat07/12/17 at 1045, Until | | AM PDT | | | | | Discontinued | | | | | | + +-------+ +-------+---+---+ + +---+ | | | + +---+ | glucagon (GLUCAGEN) injection 1 | | | mg 1 mg, intramuscular, | | | NEEDED, Starting Sat07/12/17 at | | | 0537, Until Sat07/12/17 at 2230, | | | CBG less than 70 mg/dL per Adult | | | Hypoglycemia Protocol | | + +---+ | | | + +---+ | glucose chewable tablet 16 g | | | 16 g, oral, NEEDED, Starting | | | Sat07/12/17 at 0537, Until Fri | | | 07/12/17 at 2230, CBG less than 70 | | | mg/dL per Adult Hypoglycemia | | | Protocol | | + +---+ | | | + +---+ + +-------+ + +---+---+ | HYDROcodone-acetaminophen | Given | 07/13/19 | 1 tablet | | | | (NORCO) 5-325 mg tablet 1-2 | | 18 8:37 | | | | | tablet 1-2 tablet, oral, EVERY 4 | | AM PDT | | | | | HOURS NEEDED, Starting Fri | | | | | | | 07/12/17 at 0423, Until Fri | | | | | | | 07/12/17 at 1222, moderate pain | | | | | | + +-------+ + +---+---+ +-------+ + +---+---+ | Given | 07/13/19 | 1 tablet | | | | | 18 7:35 | | | | | | AM PDT | | | | +-------+ + +---+---+ +---+---+ | | | +---+---+ + +-------+ +------+---+---+ | HYDROmorphone (DILAUDID) | Given | 07/13/19 | 1 mg | | | | injection 0.5-1 mg 0.5-1 mg, | | 18 4:06 | | | | | intravenous, EVERY 1 HOUR | | AM PDT | | | | | NEEDED, 3 doses, Starting Fri | | | | | | | 07/12/17 at 0111, Until Fri | | | | | | | 07/12/17 at 0406, severe pain | | | | | | + +-------+ +------+---+---+ +-------+ +--------+---+---+ | Given | 07/13/19 | 0.5 mg | | | | | 18 1:50 | | | | | | AM PDT | | | | +-------+ +--------+---+---+ | Given | 07/13/19 | 0.5 mg | | | | | 18 1:15 | | | | | | AM PDT | | | | +-------+ +--------+---+---+ +---+---+ | | | +---+---+ + +-------+ +--------+---+---+ | HYDROmorphone (DILAUDID) | Given | 07/13/19 | 0.5 mg | | | | injection 0.5-1 mg 0.5-1 mg, | | 18 9:18 | | | | | intravenous, EVERY 4 HOURS | | AM PDT | | | | | NEEDED, Starting Sat07/12/17 at | | | | | | | 0831, Until Sat07/12/17 at 2230, | | | | | | | severe pain | | | | | | + +-------+ +--------+---+---+ +---+---+ | | | +---+---+ + +-------+ + +---+--------+ | insulin glargine (LANTUS) | Given | 07/13/19 | 32 Units | | Right | | injection 32 Units 32 Units, | | 18 9:38 | | | Arm | | subcutaneous, TWICE DAILY, First | | AM PDT | | | | | dose on Sat07/12/17 at 0900, | | | | | | | Until Discontinued | | | | | | + +-------+ + +---+--------+ +---+---+ | | | +---+---+ + +-------+ +---------+---+ + | insulin lispro (HUMALOG) | Given | 07/13/19 | 2 Units | | Left Arm | | injection subcutaneous, FOUR | | 18 1:03 | | | | | TIMES DAILY, First dose on Sat | | PM PDT | | | | | 07/12/17 at 0800, Until | | | | | | | Discontinued | | | | | | + +-------+ +---------+---+ + +-------+ +---------+---+ + | Given | 07/13/19 | 4 Units | | Left Arm | | | 18 9:39 | | | | | | AM PDT | | | | +-------+ +---------+---+ + +---+---+ | | | +---+---+ + +---------+ +-------+---+---+ | iohexol (OMNIPAQUE) 350 mg | IV Push | 07/13/19 | 80 mL | | | | iodine/mL injection 80 mL 80 mL, | | 18 3:14 | | | | | intravenous, ONCE, 1 dose, Fri | | AM PDT | | | | | 07/12/17 at 0345 | | | | | | + +---------+ +-------+---+---+ + +---+ | | | + +---+ | LORazepam (ATIVAN) tablet 0.5 | | | mg 0.5 mg, oral, AT BEDTIME | | | NEEDED, Starting 07/12/17 at | | | 0857, Until Sat07/12/17 at 2230, | | | anxiety | | + +---+ | | | + +---+ + +-------+ +-------+---+---+ | losartan (COZAAR) tablet 25 mg | Given | 07/13/19 | 25 mg | | | | 25 mg, oral, DAILY, First dose | | 18 9:30 | | | | | on Sat07/12/17 at 1045, Until | | AM PDT | | | | | Discontinued | | | | | | + +-------+ +-------+---+---+ +---+---+ | | | +---+---+ + +-------+ +-------+---+---+ | metoprolol succinate | Given | 07/13/19 | 25 mg | | | | (TOPROL-XL) tablet 25 mg 25 mg, | | 18 11:17 | | | | | oral, DAILY, First dose on Sat | | AM PDT | | | | | 07/12/17 at 1045, Until | | | | | | | Discontinued | | | | | | + +-------+ +-------+---+---+ + +---+ | | | + +---+ | nitroglycerin (NITROSTAT) | | | tablet 0.4 mg 0.4 mg, | | | sublingual, EVERY 5 MINUTES | | | NEEDED, Starting Sat07/12/17 at | | | 0440, Until Sat07/12/17 at 2230, | | | chest pain | | + +---+ | | | + +---+ | ondansetron ODT (ZOFRAN ODT) | | | tablet 4 mg 4 mg, oral, EVERY 8 | | | HOURS NEEDED, Starting Fri | | | 07/12/17 at 0441, Until Fri | | | 07/12/17 at 2230, nausea/vomiting, | | | first line | | + +---+ | | | + +---+ + +-------+ +------+---+---+ | oxyCODONE (immediate release) | Given | 07/13/19 | 5 mg | | | | (ROXICODONE) tablet 5-10 mg 5-10 | | 18 4:17 | | | | | mg, oral, EVERY 6 HOURS | | PM PDT | | | | | NEEDED, Starting 07/12/17 at | | | | | | | 1222, Until 07/12/17 at 2230, | | | | | | | moderate pain | | | | | | + +-------+ +------+---+---+ +-------+ +------+---+---+ | Given | 07/13/19 | 5 mg | | | | | 18 12:57 | | | | | | PM PDT | | | | +-------+ +------+---+---+ +---+---+ | | | +---+---+ + +-------+ +-------+---+---+ | pregabalin (LYRICA) capsule 75 | Given | 07/13/19 | 75 mg | | | | mg 75 mg, oral, THREE TIMES | | 18 4:19 | | | | | DAILY, First dose on Sat07/12/17 | | PM PDT | | | | | at 1045, Until Discontinued | | | | | | + +-------+ +-------+---+---+ +-------+ +-------+---+---+ | Given | 07/13/19 | 75 mg | | | | | 18 9:30 | | | | | | AM PDT | | | | +-------+ +-------+---+---+ +---+---+ | | | +---+---+ + +---------+ + +---+---+ | sodium chloride 0.9% IV | New Bag | 07/13/19 | 1,000 mL | | | | infusion 1,000 mL, intravenous, | | 18 1:20 | | | | | ONCE, 1 dose, [facility] 07/12/17 at 0215 | | AM PDT | | | | + +---------+ + +---+---+ +---+---+ | | | +---+---+ documented in this encounter"
--- OUTSIDE RECORDS SUMMARY | ~2019-10-16 | XMS | Encounter Summary ---
Demographics + + + | Address | [address] | | | [place] [address] | + + + | Home Phone | | + + + | Preferred Language | Unknown | + + + | Marital Status | | + + + | Adventism Affiliation | 1013 | + + + | Race | Unknown | + + + | Ethnic Group | Unknown | + + + Author + + + | Author | [facility] | | | and Juan Joséana | + + + | Organization | [facility] | | | and [place] | + + + | Address | Unknown | + + + | Phone | Unavailable | + + + Support + + + + + | Name | Relationship | Address | Phone | + + + + + | Dustin Terrazas | ECON | [place] | | | | | [address] | | + + + + + | Bebe Terrazas | ECON | [address] | | | | [place], [place] | | | | | [address] | | + + + + + Care Team Providers + +------+ + | Care Telephone Operator Chief Name | Role | Phone | + +------+ + | Ki Senior NP | PCP | | + +------+ + Encounter Details +--------+ + + + + | Date | Type | Department | Care Team | Description | +--------+ + + + + | 10/08/ | Orders Only | [facility] | Provider, | | | 2019 | | SYSTEM GENERIC OP | [address] | | | | | CONVERSION [address] | [address] | | | | | [address] [place], [place] | [place] [address] | | | | | [address] | | | | | | [phone] | | | +--------+ + + + [...]
--- OUTSIDE RECORDS SUMMARY | ~2019-10-16 | XMS | Encounter Summary ---
Demographics + + + | Address | [address] | | | [place] [address] | + + + | Home Phone [...] #[place] | | | | | [address] | | + + + + + | Bebe Terrazas | ECON | Unknown | Unavailable | + + + + + | Arden Terrazas | ECON | Unknown | | + + + + + Care Team Providers + +------+ + | Care Insulation Cupola Charger Name | Role | Phone | + +------+ + | Yuriy Cardenas PA-C | PCP | | + +------+ + Reason for Referral Diagnostic Testing (Urgent) + +--------+ + + + + | Status | Reason | Specialty | Diagnoses / | Referred By | Referred To | | | | | Procedures | Contact | Contact | + +--------+ + + + + | New Request | | Radiology | Diagnoses | [place], | [place] | | | | | Non-small | Eric Mcgill MD | Health & | | | | | cell cancer | [address] | [employer] | | | | | of left lung | [address] | [address] | | | | | (HCC) | [address] | [facility] | | | | | Procedures | [facility] | [facility] | | | | | [address] CHEST [address] | [place] [address] | [place], [place] | | | | | CONTRAST | Phone: | [address] | | | | | | [phone] | Phone: | | | | | | Fax: | [phone] | | | | | | [phone] | | + +--------+ + + + + Reason for Visit + + + | Reason | Comments | + + + | Appointment Question | | + + + Encounter Details +--------+ + + + + | Date | Type | Department | Care Team | Description | +--------+ + + + + | 08/27/ | Telephone | [facility] | Abelino Pan MD | Appointment Question | | 2020 | | Clinics at S | [address] | | | | | [address] | [place], [place] | | | | | [facility] | [address] | | | | | Health and Healing, | [phone] | | | | | [address] | | | | | | [place], [place] | | | | | | [address] | | | | | | [phone] | | | +--------+ + + + [...] as of this encounter Plan of Treatment + +---------+--------+ + + | Name | Type | Priori | Associated Diagnoses | Order Schedule | | | | ty | | | + +---------+--------+ + + | CT CHEST W CONTRAST | Imaging | Urgent | Non-small cell | Expected: 09/11/2019 | | | | | cancer of left lung | (Approximate), | | | | | (HCC) | Expires: 09/26/2020 | + +---------+--------+ + + documented as of this encounter Visit Diagnoses + + | Diagnosis | + + | Non-small cell cancer of left lung (HCC) - Primary | + + documented in this encounter"
--- OUTSIDE RECORDS SUMMARY | ~2019-10-16 | XMS | Encounter Summary ---
Demographics + + + | Address | [address] | | | [place] [address] | + + + | Home Phone [...] #[place] | | | | | [address] | | + + + + + | Bebe Terrazas | ECON | Unknown | Unavailable | + + + + + | Arden Terrazas | ECON | Unknown | | + + + + + Care Team Providers + +------+ + | Care Manager Flight Operations Name | Role | Phone | + +------+ + | Yuriy Cardenas PA-C | PCP | | + +------+ + Reason for Visit + + + | Reason | Comments | + + + | Medication | insulin syringe | | management | | + + + Encounter Details +--------+ + + + + | Date | Type | Department | Care Team | Description | +--------+ + + + + | 06/09/ | Telephone | [facility] | Yuriy Cardenas, | Medication | | 2019 | | at [place] [address] | [place] [address] [address] [facility] | management (insulin | | | | [address] | [address] | syringe) | | | | [place], [place] | [place], [place] | | | | | [address] | [address] | | | | | [phone] | [phone] | | | | | | | [...]
--- OUTSIDE RECORDS SUMMARY | ~2019-10-16 | XMS | Encounter Summary ---
Demographics + + + | Address | [address] | | | [place] [address] | + + + | Home Phone [...] #[place] | | | | | [address] | | + + + + + | Bebe Terrazas | ECON | Unknown | Unavailable | + + + + + | Arden Terrazas | ECON | Unknown | | + + + + + Care Team Providers + +------+ + | Care Pull Socket Assembler Name | Role | Phone | [...] | | | [address], [address] floor | [place], [place] | | | | | [place], [place] | [address] | | | | | [address] | [phone] | | | | | [phone] | | | +--------+---------+ + + + [...] have any future questions/concerns. [facility] [address] [place] [address] Mailcode: [address] [place] [address] documented in t his encounter Plan of Treatment Not on filedocumented as of this encounter Visit Diagnoses + + | Diagnosis | + + | Lumbar radiculopathy - Primary Thoracic or lumbosacral neuritis or radiculitis, | | unspecified | + + documented in this encounter"
--- OUTSIDE RECORDS SUMMARY | ~2019-10-16 | XMS | Encounter Summary ---
Demographics + + + | Address | [address] | | | [place] [address] | + + + | Home Phone [...] #[place] | | | | | [address] | | + + + + + | Bebe Terrazas | ECON | Unknown | Unavailable | + + + + + | Arden Terrazas | ECON | Unknown | | + + + + + Care Team Providers + +------+ + | Care Director Service Name | Role | Phone | + [...] | | | | | subcutaneous | [address] | | | | | | tissue | [address] | | | | | | Abnormal | Rd | | | | | | prominence | [place], | | | | | | of rib | [place] | | | | | | Procedures | [address] | | | | | | CT CHEST, | Phone: | | | | | | ABDOMEN AND | [phone] | | | | | | PELVIS W IV | Fax: | | | | | | CONTRAST CT | [phone] | | | | | | ABDOMEN [...] | 2019 | Encounter | Services at [facility] | [place] [address] | | | | | [address] | [address] | | | | | [facility] | [place], [place] | | | | | [facility], 10th Floor | [address] | | | | | [place], [place] | [phone] | | | | | [address] | | | | | | [phone] | | | +--------+ + + + [...] | | use of insulin ([facility]) | | | | | | [...] | | | | | | of platinum coronary | | | | | | | 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 | [place], [place] | | | [facility] | [address] | [address] | | | TESTS | | | [...]
--- OUTSIDE RECORDS SUMMARY | ~2019-10-16 | XMS | Encounter Summary ---
Demographics + + + | Address | [address] | | | [place] [address] | + + + | Home Phone [...] [address] | Unavailable | | | | #[place], [place] | | | | | [address] | | + + + + + | Bebe Terrazas | ECON | Unknown | Unavailable | + + + + + | Arden Hammondi | ECON | Unknown | | + + + + + Care Team Providers + +------+ + | Care Hl7 Developer Name | Role | Phone | [...]
--- OUTSIDE RECORDS SUMMARY | ~2019-10-16 | XMS | Encounter Summary ---
Demographics + + + | Address | [address] | | | [place] [address] | + + + | Home Phone [...] #[place], [place] | | | | | [address] | | + + + + + | Bebe Terrazas | ECON | Unknown | Unavailable | + + + + + | Arden Hammondi | ECON | Unknown | | + + + + + Care Team Providers + +------+ + | Care Counseling Aide Name | Role | Phone | [...] [address] | [address] [facility] | | | | | [place], [place] | [address] [place], | | | | | [address] | [place] [address] | | | | | | [phone] | | | | | | | [...] RADIOLOGY | [address] | [place], [place] | [phone] | | | | [address] | | + + + + + documented in this encounter Visit Diagnoses Not on filedocumented in this encounter"
--- OUTSIDE RECORDS SUMMARY | ~2019-10-16 | XMS | Encounter Summary ---
Demographics + + + | Address | [address] | | | [place] [address] | + + + | Home Phone | | + + + | Preferred Language | Unknown | + + + | Marital Status | | + + + | Jew Affiliation | 1013 | + + + | Race | Unknown | + + + | Ethnic Group | Unknown | + + + Author + + + | Author | [facility] | | | and [place] Joséana | + + + | Organization | [facility] | | | and [place] | + + + | Address | Unknown | + + + | Phone | Unavailable | + + + Support + + + + + | Name | Relationship | Address | Phone | + + + + + | Dustin Terrazas | ECON | [place] | | | | | [address] | | + + + + + | Bebe Terrazas | ECON | [address] | | | | [place], [place] | | | | | [address] | | + + + + + Care Team Providers + +------+ + | Care Workers Compensation Manager Name | Role | Phone | + +------+ + | iK Senior NP | PCP | | + +------+ + Reason for Visit + + + | Reason | Comments | + + + | Diabetes Education | | + + + Encounter Details +--------+ + + + + | Date | Type | Department | Care Team | Description | +--------+ + + + + | 02/15/ | Education | [facility] | Sydnie Currie RN | | | 2016 | | MED [facility] DIABETES | [phone] | | | | | EDUCATION [address] | | | | | | [place], | | | | | | [place] [address] | | | | | | [phone] | | | +--------+ + + + [...] documented as of this encounter Progress Notes Sydnie Currie RN - 02/15/2017 8:52 AM PSTSee inpatient consult completed today.Electronic ally signed by Sydnie Currie RN at 02/15/2017 8:54 AM PSTdocumented in this encounter Plan of Treatment Not on filedocumented as of this encounter Visit Diagnoses Not on filedocumented in this encounter"
--- OUTSIDE RECORDS SUMMARY | ~2019-10-16 | XMS | Encounter Summary ---
Demographics + + + | Address | [address] | | | [place] [address] | + + + | Home Phone [...] #[place] | | | | | [address] | | + + + + + | Bebe Terrazas | ECON | Unknown | Unavailable | + + + + + | Arden Terrazas | ECON | Unknown | | + + + + + Care Team Providers + +------+ + | Care Department Of Mathematics Chair Name | Role | Phone | + +------+ + | Yuriy Cardenas PA-C | PCP | | + +------+ + Encounter Details +--------+ + + + + | Date | Type | Department | Care Team | Description | +--------+ + + + + | 10/15/ | MyChart | [facility] Primary Care | Yuriy Cardenas, | | | 2020 | Encounter | at [place] [address] | PA-C [address] | | | | [address] | [address] | | | | | [place], [place] | [place], [place] | | | | | [address] | [address] | | | | | [phone] | [phone] | | | | | | | [...]
--- OUTSIDE RECORDS SUMMARY | ~2019-10-16 | XMS | Encounter Summary ---
Demographics + + + | Address | [address] | | | [place] [address] | + + + | Home Phone [...] #[place] | | | | | [address] | | + + + + + | Bebe Terrazas | ECON | Unknown | Unavailable | + + + + + | Arden Terrazas | ECON | Unknown | | + + + + + Care Team Providers + +------+ + | Care Auto Body Repair Teacher Name | Role | Phone | + [...] + + | 12/17/ | Refill | [facility] Primary Care | Yuriy Cardenas, | Refill Request | | 2018 | | at [place] [address] | PA-C [address] | | | | [facility] | [facility] | | | | | [facility] [place], [place] | [place], [place] | | | | | [address] | [address] | | | | | [phone] | [phone] | | | | | | | [...]
--- OUTSIDE RECORDS SUMMARY | ~2019-10-16 | XMS | Encounter Summary ---
Demographics + + + | Address | [address] | | | [place] [address] | + + + | Home Phone [...] #[place] | | | | | [address] | | + + + + + | Bebe Terrazas | ECON | Unknown | Unavailable | + + + + + | Arden Terrazas | ECON | Unknown | | + + + + + Care Team Providers + +------+ + | Care Range Mounter Name | Role | Phone | + [...] | Radiology | Diagnoses | [place], | [place] | | | | | Non-small | Eric Mcgill MD | Health & | | | | | cell cancer | [address] | [employer] | | | | | of left lung | [address] | [address] | | | | | (HCC) | [address] | [facility] | | | | | Procedures | [facility] | [facility] | | | | | [address] CHEST [address] | [place] [address] | [place] | | | | | CONTRAST | Phone: | [phone] | | | | | | [phone] | Phone: | | | | | | Fax: | [phone] | | | | | | [phone] | | + +--------+ + + + [...] | | | [facility] [address] | [place], [place] | | | | | [facility] | [address] | | | | | Health and Healing, | [phone] | | | | | [address] | | | | | | [place], [place] | | | | | | [address] | | | | | | [phone] | | | +--------+ + + + [...]
--- OUTSIDE RECORDS SUMMARY | ~2019-10-16 | XMS | Encounter Summary ---
Demographics + + + | Address | [address] | | | [place] [address] | + + + | Home Phone | | + + + | Preferred Language | Unknown | + + + | Marital Status | | + + + | Yarsanism Affiliation | 1013 | + + + | Race | Unknown | + + + | Ethnic Group | Unknown | + + + Author + + + | Author | [facility] | | | and Juan Joséana | + + + | Organization | [facility] | | | and [place] | + + + | Address | Unknown | + + + | Phone | Unavailable | + + + Support + + + + + | Name | Relationship | Address | Phone | + + + + + | Dustin Terrazas | ECON | [place] | | | | | [address] | | + + + + + | Bebe Terrazas | ECON | [address] | | | | [place], [place] | | | | | [address] | | + + + + + Care Team Providers + +------+ + | Care Psych Np Name | Role | Phone | [...] Provider Unknown | | | | | [place], [place] | [phone] | | | | | [address] | (Fax) | | | | | [phone] | | | +--------+ + + + [...] + +--------+ + + + | CV CARDIAC PROCEDURE | Routin | 02/13/2017 | | Results for this | | | e | 11:47 PM | | procedure are in the | | | | PST | | results section. | + +--------+ + + + documented in this encounter Results CV CARDIAC PROCEDURE (02/13/2017 11:47 PM PST) + + | Specimen | + + | | + + + + + | Narrative | Performed At | + + + | This is a non-reportable procedure without a radiologist report and | | | is used for image storage only | | + + + + + | Procedure Note | + + | Ross Worley - 2018 3:52 PM PDT This is a non-reportable procedure | | without a radiologist report and isused for image storage only | + + documented in this encounter Visit Diagnoses + + | Diagnosis | + + | Pain Generalized pain | + + documented in this encounter"
--- OUTSIDE RECORDS SUMMARY | ~2019-10-16 | XMS | Encounter Summary ---
Demographics + + + | Address | [address] | | | [place] [address] | + + + | Home Phone [...] #[place] | | | | | [address] | | + + + + + [...] Request | | Radiology | Diagnoses | [place], | [place] | | | | | Lumbar | Sivakumar Hernandez MD | Health & | | | | | radiculopath | [address] | [email or web address] | | | | | y Lumbar | Ave | [address] | | | | | disc | [place], [place] | [facility] | | | | | herniation | [address] | ROAD | | | | | with | Phone: | [place], [place] | | | | | radiculopath | [phone] | [address] | | | | | y | Fax: | Phone: | | | | | Procedures | [phone] | [phone] | | | | | MRI SPINE | | | | | | | LUMBAR WWO | | | | | | | CONTRAST | | | + +--------+ + + + + Encounter Details +--------+ + + + + | Date | Type | Department | Care Team | Description | +--------+ + + + + | 08/04/ | Documentati | Neurosurgery at | CiroSivakumar, | | | 2020 | on | [facility] [address] | MD [address] | | | | | Ave Center for | [place], [place] | | | | | Health and Healing, | [address] | | | | | [facility] | [phone] | | | | | floor [place], [place] | | | | | | [address] | | | | | | [phone] | | | +--------+ + + + [...] + +---------+--------+ + + | MRI SPINE LUMBAR WWO | Imaging | Routin | Lumbar | Expected: | | CONTRAST | | e | radiculopathy | 08/05/2019, Expires: | | | | | Lumbar disc | 09/03/2020 | | | | | herniation with | | | | | | radiculopathy | | + +---------+--------+ + + documented as of this encounter Visit Diagnoses + + | Diagnosis | + + | Lumbar radiculopathy - Primary Thoracic or lumbosacral neuritis or radiculitis, | | unspecified | + + | Lumbar disc herniation with radiculopathy Displacement of lumbar intervertebral disc | | without myelopathy | + + documented in this encounter"
--- OUTSIDE RECORDS SUMMARY | ~2019-10-16 | XMS | Encounter Summary ---
Demographics + + + | Address | [address] | | | [place] [address] | + + + | Home Phone [...] #[place] | | | | | [address] | | + + + + + | Bebe Terrazas | ECON | Unknown | Unavailable | + + + + + | Arden Terrazas | ECON | Unknown | | + + + + + Care Team Providers + +------+ + | Care Television Writer Name | Role | Phone | [...] + + | 03/30/ | Office | [facility] Primary Care | Yuriy Cardenas, | Type 2 diabetes | | 2019 | Visit | at [place] [address] | PA-C [address] | mellitus with | | | | [address] | [address] | diabetic | | | | [place], [place] | [place], [place] | polyneuropathy, with | | | | [address] | [address] | long-term current | | | | [phone] | [phone] | use of insulin (HCC) | | | | | | (Primary Dx); | | | | | | Atherosclerosis of | | | | | | lower brule coronary | | | | | | artery of lower brule | | | | | | heart with stable | | | | | | angina pectoris | | | | | | ([facility]); Chronic | | | | | | combined systolic | | | | | | and diastolic heart | | | | | | failure ([facility]); Major | | | | | | depressive | | | | | | disorder, recurrent | | | | | | episode, moderate | | | | | | ([facility]); Non-small | | | | | | [...] might be different fro m the original. [facility] Established Visit Visit [...] with long-term current use of ins ulin ([facility]) E11.42 HEMOGLOBIN A1C,POC Z79.4 LIPID SET (TRIG, T CHOL, HDL, CALC LDL) COMPLETE METABOLIC SET (NA,K,CL,CO2,BUN,CREAT,GLUC,CA,AST,ALT,BILI TOTAL,ALK PHOS,ALB,PRO T TOTAL) empagliflozin (JARDIANCE) 10 mg oral tablet semaglutide (OZEMPIC) 1 mg/dose (2 mg/1.5 mL) subcutaneous pen injector CBC, WITH DIFFERENTIAL HEMOGLOBIN A1C, BLOOD CBC AND AUTO DIFF LDL CHOLEST,MEASURED, PLASMA 2. 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 Chronic combined systolic and diastolic heart failure ([facility]) I50.42 4. Major depressive disorder, recurrent episode, moderate ([facility]) F33.1 5. Non-small cell cancer of left lung ([facility]) C34.92 morphine SR 10 mg oral capsule,extend.re [...] | | | | use of insulin ([facility]) | | | | | | B12 [...] | + + + + + | [facility] | [address] | [place] [address] | | | SERVICES, CORE | PARK [...] | [facility] | | considered for monitoring care home glycemic control in patients with: | LABORATORY [...] | + + + + + | [facility] | [address] | [place] [address] | | | SERVICES, SPECIAL | PARK [...] [facility] | [address] | [place] [address] | | | SERVICES, CORE | PARK [...] | + + + + + | [facility] | [address] | [place] [address] | | | SERVICES, CORE | EDITH [...] | | | LABORATORY | | | [facility] | | | SERVICES, | | | [...] | + + + + + | [facility] | [address] | [place] [address] | | | SERVICES, TIMMY | EDITH [...] | + + + + + | [facility] | [address] | [place] [address] | | | SERVICES, TIMMY | [address] | | | + + + + + documented in this encounter Visit Diagnoses + + | Diagnosis | + + | Type 2 diabetes mellitus with diabetic polyneuropathy, with long-term current use of | | insulin (HCC) - Primary | + + | 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
--- OUTSIDE RECORDS SUMMARY | ~2019-10-16 | XMS | Encounter Summary ---
Demographics + + + | Address | [address] | | | [place] [address] | + + + | Home Phone [...] #[place] | | | | | [address] | | + + + + + | Bebe Terrazas | ECON | Unknown | Unavailable | + + + + + | Arden Terrazas | ECON | Unknown | | + + + + + Care Team Providers + +------+ + | Care Personal Care Service Provider Name | Role | Phone | + [...] Lumbar | | | | Physician's | [place], [place] | radiculopathy; | | | | [place], 2nd floor | [address] | Lumbar | | | | [place], [place] | [phone] | post-laminectomy | | | | [address] | | syndrome | | | | [phone] | | | +--------+---------+ + + + [...] care. MD PATRICIO Rayo MD NEUROSURGERY [address] [facility] Mailcode: Pv[address] [place] [id number] nnita Bullock PA - 05/20/2013 1:18 PM [...] indicated at that time. RAMOS HUTCHINSON-Massiel NEUROSURGERY [address] [place] [address] Mailcode: [address] [place] [address] documented in t his encounter [...] + + + | MISC REF | [id number] | | [facility] | | | TEST NAME | | | [facility] | | + + + + [...] JAY/RACHANA | [address] | [place], [place] | | | LAB | | [address] | | + + + + + | [facility] | [address] | [place], [place] | | | LAB | | [address] | | + + + + + [...] | | + +---------+ + + | [facility] DEPARTMENT OF | | | [...]
--- OUTSIDE RECORDS SUMMARY | ~2019-10-16 | XMS | Encounter Summary ---
Demographics + + + | Address | [address] | | | [place] [address] | + + + | Home Phone [...] #[place] | | | | | [address] | | + + + + + | Bebe Terrazas | ECON | Unknown | Unavailable | + + + + + | Arden Terrazas | ECON | Unknown | | + + + + + Care Team Providers + +------+ + | Care Cloth Bleaching Range Operator Chief Name | Role | Phone [...] | | | Ave Center for | [place], [place] | | | | | Health and Healing, | [address] | | | | | [place] [address] [facility] | [phone] | | | | | floor [place], [place] | | | | | | [address] | | | | | | [phone] | | | +--------+---------+ + + + [...]
--- OUTSIDE RECORDS SUMMARY | ~2019-10-16 | XMS | Encounter Summary ---
Demographics + + + | Address | [address] | | | [place] [address] | + + + | Home Phone [...] #[place] | | | | | [address] | | + + + + + | Bebe Terrazas | ECON | Unknown | Unavailable | + + + + + | Arden Terrazas | ECON | Unknown | | + + + + + Care Team Providers + +------+ + | Care Stage Builder Name | Role | Phone | + [...] | | | | VASC LAB | [place], [place] | Mailcode: | | | | | VENOUS | [address] | [address] | | | | | DUPLEX LOWER | Phone: | Physician's | | | | | EXTREMITY | [phone] | Pavilion | | | | | BILAT COMP | Fax: | [place], [place] | | | | | | [phone] | [address] | | | | | | | Phone: | | | | | | | [phone] | | | | | | | Fax: | | | | | | | [phone] | +--------+--------+ + + + + Reason for Visit + + + | Reason | Comments | + + + | Postoperative visit | | + + + Encounter Details +--------+---------+ + + + | Date | Type | Department | Care Team | Description | +--------+---------+ + + + | 01/07/ | Office | Neurosurgery [address] | Bullock, | Leg swelling | | 2012 | Visit | [address] | RAMOS Schwartz | (Primary Dx) | | | | Physician's | [address] | | | | | Pavilion, 2nd floor | [place], [place] | | | | | [place], [place] | [address] | | | | | [address] | [phone] | | | | | [phone] | | | +--------+---------+ + + + [...] + + + | Blood Pressure | 113/64 | 01/07/2013 11:43 AM | | | | | PST | | + + + + + | Pulse | 75 | 01/07/2013 11:43 AM | | | | | PST | | + + + + + | Temperature | 36.4 C (97.6 F) | 01/07/2013 11:43 AM | | | | | PST [...] + + + + | Weight | 104.8 kg (231 lb) | 01/07/2013 11:43 AM | | | | | PST | | + + + + + | Height | - | - | | + + + + + | Body Mass Index | 37.28 | 12/23/2012 8:35 AM | | | | | PDT | | + + + + + documented in this encounter Progress Notes Annita Bullock PA - 01/07/2013 12:34 PM PSTS: Ms. Terrazas is here for a follow up s/p L3-4 LEFT extreme lateral interbody fusion Bilateral L3-4 foraminotomies, L3-S1 revision po sterior instrumented fusion 12/23/2012. The patient has noticed R> L LE swelling since hill rgery and Right calf pain. She denies CP, SOB. She completed a course of oral steroids, Medr ol dosepak, and her Gabapentin was increased from 300 mg qhs to 300 mg tid at discharge. The patient has continued to require taking pain medications due to continued post operative ba ck and leg pain. BP 113/64 | Pulse 75 | Temp 36.4 C (97.6 F) | Wt 104.781 kg (231 lb) | BMI 37.3 kg/(m^2 ) O: Gen: 42 y/o Female NAD Incisions: C/d/i- no erythema, discharge Neuro: A + O x 3, Motor 5/5 throughout Extremities: R> L LE 3 + pitting edema knees to feet. Mild erythema Right calf circumferent ially A: 42 y/o Female s/p L3-4 LEFT extreme lateral interbody fusion Bilateral L3-4 foraminotomi es, L3-S1 revision posterior instrumented fusion 12/23/2012. BLE swelling post op P: Arranged for B LE Venous Duplex today to eval for DVT. Results pending. Refilled Oxycodo ne. Will have patient monitor erythema RLE and contact clinic if persisting, worsening- like ly secondary to venous status. Recommend weaning down on Gabapentin to original, pre-op dosa ge, 300 mg qhs due to leg swelling. Will contact patient with Venous duplex results. Viriul e next routine post op visit for 6 weeks post op. -Addendum: Venous Duplex BLE- negative for DVT. Patient informed. RAMOS HUTCHINSON-Massiel NEUROSURGERY [address] [place] [address] Mailcode: [address] [place] [address] documented in t his encounter Plan of Treatment Not on filedocumented as of this encounter Results [facility] VENOUS DUPLEX LOWER EXTREMITY BILAT COMP [...] Diagnosis | + + | Leg swelling - Primary Swelling of limb | + + documented in this encounter"
--- OUTSIDE RECORDS SUMMARY | ~2019-10-16 | XMS | Encounter Summary ---
Demographics + + + | Address | [address] | | | [place] [address] | + + + | Home Phone [...] [place] | | | | | [address] | | + + + + + | Bebe Terrazas | ECON | Unknown | Unavailable | + + + + + | Arden Terrazas | ECON | Unknown | | + + + + + Care Team Providers + +------+ + | Care Cisco Network Architect Name | Role | Phone | [...] + + | 10/08/ | Telephone | [facility] Primary Care | Yuriy Cardenas, | DM - Diabetes | | 2017 | | at [place] [address] | PA-C [address] | mellitus | | | | [address] | [address] | | | | | [facility] [place], [place] | [place], [place] | | | | | [address] | [address] | | | | | [phone] | [phone] | | | | | | | [...]
--- OUTSIDE RECORDS SUMMARY | ~2019-10-16 | XMS | Encounter Summary ---
Demographics + + + | Address | [address] | | | [place] [address] | + + + | Home Phone [...] [place] | | | | | [address] | | + + + + + | Bebe Terrazas | ECON | Unknown | Unavailable | + + + + + | Arden Nini | ECON | Unknown | | + + + + + Care Team Providers + +------+ + | Care Waste Specialist Name | Role | Phone | + +------+ + | Zora Haddad DO | PCP | | + +------+ + Encounter Details +--------+ + + + + | Date | Type | Department | Care Team | Description | +--------+ + + + + | 04/17/ | Telephone | [facility] | Praful Johnson, | | | 2013 | | Pain Center at | ,PhD [address] | | | | | [facility] | [address] | | | | | [address] | [place], [place] | | | | | [facility] | [address] | | | | | and Vi, | [phone] | | | | | | | | | | | Floor [place], [place] | | | | | | [address] | | | | | | [phone] | | | +--------+ + + + [...]
--- OUTSIDE RECORDS SUMMARY | ~2019-10-16 | XMS | Encounter Summary ---
Demographics + + + | Address | [address] | | | [place] [address] | + + + | Home Phone [...] [place] | | | | | [address] | | + + + + + | Bebe Terrazas | ECON | Unknown | Unavailable | + + + + + | Arden Terrazas | ECON | Unknown | | + + + + + Care Team Providers + +------+ + | Care Cruise Director Name | Role | Phone | [...] Floor | | | | | | [place], [place] | | | | | | [address] | | | | | | [phone] | | | +--------+ + + + [...]
--- OUTSIDE RECORDS SUMMARY | ~2019-10-16 | XMS | Encounter Summary ---
Demographics + + + | Address | [address] [address] | | | [place] [address] | + + + | Home Phone | | + + + | Preferred Language | Unknown | + + + | Marital Status | | + + + | Moravian Affiliation | 1013 | + + + | Race | Unknown | + + + | Ethnic Group | Unknown | + + + Author + + + | Author | [facility] | | | and Juan Joséana | + + + | Organization | [facility] | | | and [place] | + + + | Address | Unknown | + + + | Phone | Unavailable | + + + Support + + + + + | Name | Relationship | Address | Phone | + + + + + | Dustin Terrazas | ECON | [place] | | | | | [address] | | + + + + + | Bebe Terrazas | ECON | [address] | | | | [place], [place] | | | | | [address] | | + + + + + Care Team Providers + +------+ + | Care Music Professionals Name | Role | Phone | + +------+ + | Dong Senior NP | PCP | | + +------+ + Encounter Details +--------+ + + + + | Date | Type | Department | Care Team | Description | +--------+ + + + + | 04/10/ | Emergency | [facility] | Mario Centeno, | Dental cavities | | 2018 | | [facility] | [address] | | | | | EMERGENCY [facility] | [place] [address] | | | | | [address] | [phone] | | | | | [place], [place] | | | | | | [address] | | | | | | [phone] | | | +--------+ + + + [...] + + + | Blood Pressure | 167/94 | 04/10/2017 2:32 AM | | | | | PST | | + + + + + | Pulse | 89 | 04/10/2017 2:32 AM | | | | | PST | | + + + + + | Temperature | 36.5 C (97.7 F) | 04/10/2017 2:32 AM | | | | | PST | | + + + + + | Respiratory Rate | 28 | 04/10/2017 2:32 AM | | | | | PST | | + + + + + | Oxygen Saturation | - | - | | + + + + + | Inhaled Oxygen | - | - | | | Concentration | | | | + + + + + | Weight | 90.7 kg (200 lb) | 04/10/2017 2:32 AM | | | | | PST | | + + + + + | Height | 167.6 cm (5' 6") | 04/10/2017 2:32 AM | | | | | PST | | + + + + + | Body Mass Index | 32.28 | 04/10/2017 2:32 AM | | | | | PST [...] 1 tablet by | | 0 | 15/20 | | | (LIPITOR) 40 mg | [...] documented as of this encounter ED Notes Mario Centeno MD - 04/10/2017 2:20 AM PSTFormatting of this note might be different fr om the original. ED Provider Notes by Mario Centeno MD at 04/10/17219 Author: Mario Centeno MD Service: Emergency Department Author Type: Physician Filed: 04/10/171 Date of Service: 04/10/17219 Status: Signed Technical Associate: Mario Centeno MD (Physician) Located Within [facility] Department of Emergency Medicine 2:26 AM 04/10/2017 History of Present Illness Patient Identification Nancy Terrazas is a 46 y.o. female. Patient information was obtained from patient. History/Exam limitations: none. Patient presented to the Emergency Department by: Car Chief Complaint Chief Complaint Patient presents with Dental Pain top right molar is broken and painful, patient has an appt on Saturday with dentist The patient presents to the emergency department with chief complaints of dental pain. Onse t of symptoms was yesterday evening, with an unresolved course since that time. The symptoms are described to be of mild to moderate severity. The patient describes the quality and loc ation of the symptoms as the following: upper right molar fracture. 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 Ej palma states that she has an appointment with her dentist scheduled for this next Saturday. 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 Authorizing Provider albuterol (PROVENTIL HFA;VENTOLIN HFA) 108 (90 BASE) MCG/ACT inhaler Inhale 2 puffs into th e lungs every 4 (four) hours as needed for Wheezing. Yes Historical Provider aspirin 81 MG tablet Take 81 mg by mouth daily. Yes Historical Provider atorvastatin (LIPITOR) 40 MG tablet Take 1 tablet by mouth nightly. 03/13/17 03/13/18 Yes PRICE Mendenhall clopidogrel (PLAVIX) 75 MG tablet Take 1 tablet by mouth daily. 03/13/17 Yes PRICE Serrato furosemide (LASIX) 40 MG tablet Take 1 tablet by mouth daily. 03/13/17 03/13/18 Yes PRICE Silvestre gemfibrozil (LOPID) 600 MG tablet Take 1 tablet by mouth 2 (two) times daily before meals. 03/13/17 03/13/18 Yes PRICE Silvestre insulin aspart (NOVOLOG) 100 UNIT/ML injection Inject into the skin 3 (three) times daily before meals. Indications: Insulin-Dependent Diabetes Yes Historical Provider insulin detemir (LEVEMIR) 100 UNIT/ML injection Inject 60 Units into the skin nightly. Ye s Historical Provider isosorbide mononitrate (IMDUR) 30 MG 24 hr tablet Take 1 tablet by mouth daily. 03/13/1703/04 Yes PRICE Silvestre losartan (COZAAR) 25 MG tablet Take 1 tablet by mouth daily. 03/13/17 Yes PRICE Wilkes metoprolol (TOPROL-XL) 25 MG 24 hr tablet Take 1 tablet by mouth nightly. 03/13/17 03/13/18 Y es PRIEC Silvestre potassium chloride (MICRO-K) 10 MEQ CR capsule Take 1 capsule by mouth daily. 03/13/17 Yes RaniPRICE Babcock pregabalin (LYRICA) 75 MG capsule Take 75 mg by mouth as needed. Yes Historical Provider varenicline (CHANTIX STARTING MONTH ) 0.5 MG X 11 & 1 MG X 42 tablet Take 0.5 mg by mout h 2 (two) times daily. Take one 0.5mg tablet by mouth once daily for 3 days, then increase t o one 0.5mg tablet twice daily for 3 days, then increase to one 1mg tablet twice daily. Ye s Historical Provider nitroGLYCERIN (NITROSTAT) 0.[address] 1 tablet under the tongue every 5 (five) m inutes as needed for Chest pain. 07/25/16 07/25/17 Pilo Ocampo MD Allergies Allergen Reactions Latex Hives Sulfa Antibiotics Rash Codeine Nausea and Vomiting Lisinopril Cough Social History Social History Marital status: Spouse name: N/A Number of children: N/A Years of education: N/A Occupational History Not on file. Social History Main Topics Smoking status: Current Every Day Smoker Packs/day: 1.00 Years: 20.00 Smokeless tobacco: Never Used Comment: 5-8 ciggs daily Alcohol use No Drug use: Yes Types: Marijuana Comment: occasional Sexual activity: Yes Partners: Male control/ protection: Surgical-Self Other Topics Concern Not on file Social History Narrative No narrative on file Family History Problem Relation Age of Onset Asthma Mother Diabetes type II Mother Heart disease Mother Hypertension Mother Heart disease Maternal Grandmother ROS Review of Systems Constitutional: Negative for: fever, chills or weight loss. HEENT: Positive for: dental pain Negative for: head trauma, ear pain, sore throat or acute visual disturbance. Cardiovascular/Respiratory: Negative for: chest pain, syncope, shortness of breath or cough . Gastrointestinal: Negative for: abdominal pain, nausea, vomiting, diarrhea, or black or bl oody stools. Genitourinary: Negative for: dysuria or urinary problems. Musculoskeletal: Negative for: back pain Skin: Negative for: rash or lesions. Neuro: Negative for: headache, focal muscle weakness, seizure or acute neur ological problems. Physical Exam BP (!) 167/94 (BP Location: Left upper arm) | Pulse 89 | Temp 97.7 F (36.5 C) (Oral) | Resp 28 | Ht 1.676 m (5' 6") | Wt 90.7 kg (200 lb) | SpO2 99% | BMI 32.28 kg/m Vitals Interpretation: Elevated blood pressure, tachypneic, otherwise WNL Pulse Oximetry interpretation: Normal General: Alert, in no apparent distress Eyes: Normal inspection, pupils equal and round, non-icteric HENT: Right upper second and third molar, cavity present, no obvious abscess or fluctuanc e No obvious facial swelling Skin: Warm and dry No rash Musculoskeletal: Moves all extremities Neuro: No gross motosensory deficit Medical Decision Making and Emergency Department Course ED Department Course 2:26 AM. Patient presents with dental pain of her second and third molars. Will treat Motri n and Percocet and discharge the patient. Encouraged the patient to follow up with her denti st as scheduled on Saturday and will start the patient on a course of Veetid. I have instructed the patient to follow up with her PCP for a recheck. We have discussed th e emergent signs and symptoms that would necessitate an immediate return visit to the ED. Ej palma verbalized their understanding of the discharge instructions. All questions and concer ns address. No decompensation or new symptoms observed or reported during visit. Vitals: 04/10/17 0220 BP: (!) 167/94 BP Location: Left upper arm Pulse: 89 Resp: 28 Temp: 97.7 F (36.5 C) TempSrc: Oral SpO2: 99% Weight: 90.7 kg (200 lb) Height: 1.676 m (5' 6") Medications ibuprofen (MOTRIN) tablet 800 mg (800 mg Oral Given 04/10/17 0232) oxyCODONE-acetaminophen (PERCOCET) 5-325 MG per tablet 2 tablet (2 tablets Oral Given 8 0232) Records Reviewed Old medical records. Nursing notes. Previous ED visits for similar and unrelated complaints. Labs & Radiology Results Laboratory Evaluation Results None Radiology and EKG Evaluation Imaging Results None Diagnosis & Disposition ED Diagnosis Final diagnosis Dental cavities Disposition: ED Disposition ED Disposition Condition Comment Orders Discharge Stable Follow-up Information Follow up With Specialties Details Why Contact Info SHIRA Cabrera NURSE PRACTITIONER - FAMILY Call in 3 days [address] [place] [address] [facility] Emergency Department in [place] [facility] If symptoms worsen [address] [facility] [address] Discharge Medications: Discharge Medication List as of 04/10/2017 2:31 AM Procedures Additional Documentation Procedures Attending Provider Note: I, Mario Centeno MD personally performed the services described in this documentation, as scribed by Laurent Miller in my presence, and it is both accurat e and complete. Chart Reviewed and Completed: 04/10/2017 2:36 AM Scribe: Brynn Ngo, scribing for and in the presence of Mario Centeno MD. Signed by: Brynn Mccarty 04/10/2017 2:36 AM Mario Centeno MD 04/10/17 0301 documented in this encounter Plan of Treatment Not on filedocumented as of this encounter Visit Diagnoses + + | Diagnosis | + + | Dental cavities Unspecified dental caries | + + documented in this encounter
--- OUTSIDE RECORDS SUMMARY | ~2019-10-16 | XMS | Encounter Summary ---
Demographics + + + | Address | [address] | | | [place] [address] | + + + | Home Phone [...] #[place] | | | | | [address] | | + + + + + | Bebe Terrazas | ECON | Unknown | Unavailable | + + + + + | Arden Nini | ECON | Unknown | | + + + + + Care Team Providers + +------+ + | Care Lead Sql Developer Name | Role | Phone | [...] [address] | MD [address] | | | | | Ave [facility] | [place], [place] | | | | | [facility], | [address] | | | | | [facility] | [phone] | | | | | floor [place], [place] | | | | | | [address] | | | | | | [phone] | | | +--------+ + + + [...]
--- OUTSIDE RECORDS SUMMARY | ~2019-10-16 | XMS | Encounter Summary ---
Demographics + + + | Address | [address] | | | [place] [address] | + + + | Home Phone [...] #[place] | | | | | [address] | | + + + + + | Bebe Terrazas | ECON | Unknown | Unavailable | + + + + + | Arden Terrazas | ECON | Unknown | | + + + + + Care Team Providers + +------+ + | Care Processor Helper Name | Role | Phone | [...] + + | 11/29/ | Office | [facility] | Yuriy Cardenas, | Non-small cell | | 2018 | Visit | at [place] [address] | PA-C [address] | cancer of left lung | | | | [address] | [address] | ([facility]) (Primary Dx); | | | | [address] [place], [place] | [place], [place] | Type 2 diabetes | | | | [address] | [phone] | mellitus without | | | | [phone] | [phone] | complication, with | | | | | | long-term current | | | | | | use of insulin | | | | | | ([facility]); Other chronic | | | | | [...] ne less. We should meet right around [place].Electronically signed by Yuriy Cardenas PA-C at 2017 4:09 PM PDT documented in this encounter Progress Notes Jorden Hameed MA - 11/29/2017 2:15 PM PDTImmunizations given per protocol by Jorden wakefieldkirti [facility]. See Immunization / Injection screen for details of the injection. Current S given to patient, parent, or legal guardian who was informed of the risks / benefits and g iven an opportunity to ask questions. If he / she was not proficient in [place], was an asl interpreter used during the consent proc ess? NOT APPLICABLE Were these [place] Immunizations? No. [place] onald, Yuriy Mcgill PA-C [...] oxycodone less. We should meet right around [place]. Aurora Gonzalez - 11/29 2:15 PM PDT [...] as the onset was du ring [facility] and does have a latex allergy. Prescribed [...] QUADRIVALENT, 0.5 ML VIAL, IM - Cancel: DIRECTOR OF PHARMACY CYTOLOGY (PAP) - Cancel: HIV-1,2 AB/HIV-1 P24 [...]
--- OUTSIDE RECORDS SUMMARY | ~2019-10-16 | XMS | Encounter Summary ---
Demographics + + + | Address | [address] | | | [place] [address] | + + + | Home Phone [...] + + + | Author | [facility] | + + + | Organization | [facility] | + + + | [...] #[place] | | | | | [address] | | + + + + + | Bebe Terrazas | ECON | Unknown | Unavailable | + + + + + | Arden Terrazas | ECON | Unknown | | + + + + + Care Team Providers + +------+ + | Care General Technician Name | Role | Phone | + +------+ + | Yuriy Cardenas PA-C | PCP | | + +------+ + Encounter Details +--------+ + + + + | Date | Type | Department | Care Team | Description | +--------+ + + + + | 06/17/ | MyChart | [facility] | Yuriy Cardenas, | RE: [employer] | | 2019 | Encounter | at [place] [address] | PA-C [address] | | | | [address] | [address] | | | | | [place], [place] | [place], [place] | | | | | [address] | [address] | | | | | [phone] | [phone] | | | | | | | [...]
--- OUTSIDE RECORDS SUMMARY | ~2019-10-16 | XMS | Encounter Summary ---
Demographics + + + | Address | [address] | | | [place] [address] | + + + | Home Phone | | + + + | Preferred Language | Unknown | + + + | Marital Status | | + + + | Adventist Affiliation | 1013 | + + + | Race | Unknown | + + + | Ethnic Group | Unknown | + + + Author + + + | Author | [facility] | | | and Juan Joséana | + + + | Organization | [facility] | | | and [place] | + + + | Address | Unknown | + + + | Phone | Unavailable | + + + Support + + + + + | Name | Relationship | Address | Phone | + + + + + | Dustin Terrazas | ECON | [place] | | | | | [address] | | + + + + + | Kelly Terrazas | ECON | [address] | | | | [place], [place] | | | | | [address] | | + + + + + Care Team Providers + +------+ + | Care Clinical Data Abstractor Name | Role | Phone | + +------+ + | Ki Senior NP | PCP | | + +------+ + Encounter Details +--------+ + + + + | Date | Type | Department | Care Team | Description | +--------+ + + + + | 06/18/ | Hospital | [facility] | Jose Carlos Reilly, | S/P thoracotomy; | | 2018 - | Encounter | [facility] | MD [address] | Malignant neoplasm | | | | CARE [address]LO[address] | [place] [address] | of lower lobe of | | 07/02/ | | [address] | [phone] | left lung (HCC); | | 2017 | | [place], [place] | | Cavitary lesion of | | | | [address] | | lung; Acute | | | | [phone] | | respiratory failure | | | | | | with hypoxia (HCC) | +--------+ + + + + [...] + + + | Blood Pressure | 96/53 | 07/02/2017 2:15 PM | | | | | PDT | | + + + + + | Pulse | 79 | 07/02/2017 2:15 PM | | | | | PDT | | + + + + + | Temperature | 35.9 C (96.6 F) | 07/02/2017 2:15 PM | | | | | PDT | | + + + + + | Respiratory Rate | 18 | 07/02/2017 2:15 PM | | | | | PDT | | + + + + + | Oxygen Saturation | - | - | | + + + + + | Inhaled Oxygen | - | - | | | Concentration | | | | + + + + + | Weight | 97.2 kg (214 lb 4.6 | 07/02/2017 2:15 PM | | | | oz) | PDT | | + + + + + | Height | 165.1 cm (5' 5") | 07/02/2017 2:15 PM | | | | | PDT | | + + + + + | Body Mass Index | 35.66 | 07/02/2017 2:15 PM | | | | | PDT [...] documented as of this encounter Discharge Summaries Rios Camilo PA - 07/02/2017 12:36 PM PDTFormatting of this note might be differ ent from the original. Discharge Summaries by Rios Camilo PA-C at 07/02/17 4886 Author: Rios Camilo PA-C Service: Cardiac, Thoracic, and Vascular Surgery Author Ty pe: Physician Carton Catcher - Certified Filed: 07/02/17 1425 Date of Service: 07/02/17 1236 Status: Attested Indian Trader: Rios Camilo PA-C (Physician Carton Catcher - Certified) Cosigner: Rafael downing MD at 07/03/17825 Attestation signed by Rafael Wade MD at 07/03/17 08 I have reviewed the note below, personally reviewed the available laboratory and imaging st udies and examined the patient. I agree with the assessment and plan mentioned below. Electronically signed by: Rafael Wade, 07/03/2017 8:26 AM Service: Cardiothoracic Surgery Discharge Summary Pt: Nancy Terrazas AGE/SEX: 46 y.o. female ROOM: 4449/4449-1 : 1970 PCP: Yuriy Cardenas Date/Time:07/02/2017 2:25 PM Date of Admission: 06/18/2017 Date of Discharge: 07/02/2017 Hospital Day: LOS: 14 days Surgery/Procedure: 06/22/17 - VATS assisted left lower lobectomy - Mediastinal lymphadenectomy (LN stations 5,6,7,9, and 10) Post-Op Day: 11 Days Post-Op Discharge Provider: Rios Camilo PA-C Treatment Team: Surgeon: Rafael Wade MD Consulting Physician: Ben Bolton MD Consulting Physician: Vale Santiago MD Admitting Provider: Jose Carlos Reilly MD Discharge Diagnoses: Principal Problem: Malignant neoplasm of lower lobe of left lung (HCC) Active Problems: Coronary artery disease involving lower elwha coronary artery of lower [place]a heart without angina p ectoris Essential hypertension Type 2 diabetes mellitus without complication (HCC) S/P drug eluting coronary stent placement QT prolongation Acute respiratory failure with hypoxia (HCC) Volume overload Resolved Problems: * No resolved hospital problems. * BRIEF HISTORY OF PRESENTATION: Nancy Terrazas is a 46 y.o. female with significant past medical history ofCAD wit h multiple stents, HTN, DM, long history of tobacco use but states she quit about 8-9 weeks agowho presentsas a direct admit for eventual left lower lobe surgery from the cardiotho racic surgery team. The patient had a biopsy done of the lung lesion on 04/25/17 and the path ology showed well differentiated adeno CA. HOSPITAL COURSE: The patient was taken to the operating room and underwent a VATS LLL lobectomy on 06/22/17 . Operation was uneventful (please refer to operative note for details of the same). The pat ient tolerated the procedure well and was transferred to the cardiac unit, hemodynamically stable. She received electrolyte replacement per protocol and continued to make good recover y, ambulating, tolerating cardiac diet, and passing bowel movements. Chest tubes and pacing wires were removed without complication, and the patient remained stable without supplementa l oxygen. She had been planned to be discharged on 06/25, however overnight she became very s hort of breath req biPAP and eventually intubation after transfer to ICU. Suspected to have aspirated. She was eventually extubated on 06/28 and had no further episodes of SOB. She did require 1-2L NC and a home O2 eval was performed which showed that she required 2L NC of keller pplemental O2. The patient was fit for discharge to Home on 07/02/17 with supplemental O2. Problems addressed during hospital stay: 1)Aspiration pneumonia: ID consulted, pt discharged on PO Levaquin and doxycycline x7days. f/u with ID, Dr Santiago 2)VO: Diuresed well during stay. On discharge sent on PO Lasix 40BID x 3 days followed by 20BID x 3 days with K+ supplementation. CBC/BMP ordered for 07/06/17. 3)Pain control: Pt req extra pain medication. Per Dr Wade discharged on Oxycodone 15mg Q6hrs PRN, AND Tramadol 50mg Q4hrs PRN. Past Medical History Diagnosis Date Asthma Chronic back pain Coronary artery disease involving lower elwha coronary artery of lower [place] heart with angina pe ctoris (HCC) 05/03/2015 Hyperlipidemia Hypertension Lung mass medial pleural base mass-LLL Old myocardial infarction Type 2 diabetes mellitus without complication (HCC) 05/03/2015 Past Surgical History Procedure Laterality Date BREAST SURGERY SECTION CHOLECYSTECTOMY CORONARY STENT PLACEMENT LITHOTRIPSY LUNG BIOPSY 04/25/2017 CT NEEDLE BIOPSY LUNG 04/25/2017 Aurelio Espinal MD [facility] CT SINUS SURGERY SPINE SURGERY THORACOSCOPY - LOBECTOMY Left 06/21/2017 Procedure: THORACOSCOPY VIDEO ASSISTED LOBECTOMY; Surgeon: Rafael Wade MD; Locatio n: [facility] MAIN OR; Service: Cardiac; Laterality: Left; Thoracotomy, mediastinal lymphadenec chris. TUBAL LIGATION Allergies Allergen Reactions Latex Hives Sulfa Antibiotics Rash Codeine Nausea and Vomiting Lisinopril Cough Prescriptions Prior to Admission Medication Sig Dispense Refill Last Dose aspirin 81 MG tablet Take 81 mg by mouth daily. Last dose Saturday due to lung biopsy today Taking at 1000 atorvastatin (LIPITOR) 40 MG tablet Take 1 tablet by mouth nightly. 30 tablet 11 Taking at Unknown time clopidogrel (PLAVIX) 75 MG tablet Take 1 tablet by mouth daily. 30 tablet 11 06/15/2017 at Unknown time albuterol (PROVENTIL HFA;VENTOLIN HFA) 108 (90 BASE) MCG/ACT inhaler Inhale 2 puffs int o the lungs every 4 (four) hours as needed for Wheezing. Taking gemfibrozil (LOPID) 600 MG tablet Take 1 tablet by mouth 2 (two) times daily before joes ls. 60 tablet 11 Taking isosorbide mononitrate (IMDUR) 60 MG 24 hr tablet Take 1 tablet by mouth daily. TO REPL SUKUMAR IMDUR 30 MG 30 tablet 11 losartan (COZAAR) 25 MG tablet Take 1 tablet by mouth daily. 30 tablet 11 Taking metoprolol (TOPROL-XL) 25 MG 24 hr tablet Take 1 tablet by mouth nightly. 30 tablet 11 Taking nitroGLYCERIN (NITROSTAT) 0.[address] 1 tablet under the tongue every 5 (fiv e) minutes as needed for Chest pain. 90 tablet 0 Taking potassium chloride (MICRO-K) 10 MEQ CR capsule Take 1 capsule by mouth daily. 30 capsul e 11 Taking pregabalin (LYRICA) 75 MG capsule Take 75 mg by mouth 3 (three) times daily. Taking DISCHARGE EXAM Vital Signs: BP 96/53 (BP Location: Left upper arm) | Pulse 79 | Temp 96.6 F (35.9 C) (Axillary) | Resp 18 | Ht 1.651 m (5' 5") | Wt 97.2 kg (214 lb 4.6 oz) | SpO2 96% | ? No | BMI 35.66 kg/m Temp: [96.6 F (35.9 C)-98.9 F (37.2 C)] 96.6 F (35.9 C) (07/03 1127) BP: (96-133)/(53-76) 96/53 (07/03 1127) Heart Rate: [79-99] 79 (07/03 1127) Resp: [18-20] 18 (07/03 1127) SpO2: [90 %-96 %] 96 % (07/03 1127) Weight: [97.2 kg (214 lb 4.6 oz)] 97.2 kg (214 lb 4.6 oz) (07/02 304) Current weight: Patient Vitals for the past 96 hrs: Weight 07/02/17 0305 97.2 kg (214 lb 4.6 oz) 07/01/17 0348 95.7 kg (210 lb 15.7 oz) Admission weight: Weight: 89.3 kg (196 lb 13.9 oz) PE: GENERAL: Pt up in chair, alert, awake NEURO: Grossly intact SKIN: Thoracoscopy incision dressing is C/D/I. Chest tube REMOVED incision C/D/I. No erythe ma, discharge, or warmth noted around the incision site. HEART: RRR/ST w/normal S1/S2. No murmur, rub, heave, or gallop noted. LUNGS: Lungs are CTAB w/o wheezing, crackles, or rhonchi. Dim bases ABDOMEN: Soft, nontender. BS present. DATA CBC: Lab Results Component Value Date WBC 15.31 (H) 07/02/2017 RBC 3.01 (L) 07/02/2017 HGB 9.0 (L) 07/02/2017 HCT 26.5 (L) 07/02/2017 MCV 87.9 07/02/2017 MCH 29.7 07/02/2017 MCHC 33.8 07/02/2017 RDW 42.9 07/02/2017 PLT 418 (H) 07/02/2017 MPV 8.1 07/02/2017 DIFFTYPE AUTOMATED 07/02/2017 BMP: Lab Results Component Value Date NA 141 07/02/2017 K 4.4 07/02/2017 CL 101 07/02/2017 CO2 32 07/02/2017 ANIONGAP 12 07/02/2017 GLUF 210 (H) 07/02/2017 BUN 21 07/02/2017 CREATININE 1.1 (H) 07/02/2017 BCR 19 07/02/2017 CA 8.8 07/02/2017 EGFR 57 (L) 07/02/2017 PLAN 1. Patient is discharged to Home. 2. Patient was instructed to follow up in clinic with Cardiothoracic Surgery, Dr Wade on 07/11/17. i. Patient was instructed to get a Chest X-ray at the hospital prior to this office appt 3. Patient was instructed to follow up in clinic with Primary Care Physician, in 3-4 wks. 4. Education: Thoracic surgery: The patient is being discharged with instructions on surgical incision care. The patient was encouraged to contact us in case of high fever, discharge from incisi onal wounds, or SOB. The patient was also advised not to drive for 4 weeks. Disposition: Home Condition: Stable Code Status: Full Code Discharge Instructions X-ray chest 2 view frontal & lateral Standing Status: Future Standing Exp. Date: 01/01/18 Order Specific Question Answer Comments Reason for Exam: sp lobectomy CBC w/auto diff (reflex to manual) Standing Status: Future Standing Exp. Date: 07/02/18 Basic metabolic panel Standing Status: Future Standing Exp. Date: 07/02/18 Follow up: Rafael Wade MD [address] [facility] [address] Go on 07/11/2017 Post-op, As needed, If symptoms worsen, For suture removal, For wound re-check Yuriy Cardenas PA-C [address] [place] [address] Schedule an appointment as soon as possible for a visit in 1 week Post-op, diabetes management. Vale Santiago MD [address] [facility] [address] As needed Na Reno MD [address] [facility] [address] Medication List START taking these medications doxycycline 100 MG tablet QTY: 14 tablet Refills: 0 Commonly known as: VIBRA-TABS Take 1 tablet by mouth every 12 (twelve) hours for 7 days. DSS 100 MG Caps QTY: 30 each Refills: 0 Take 100 mg by mouth 2 (two) times daily for 10 days. * insulin lispro (human) 100 UNIT/ML injection QTY: 10 mL Refills: 0 Commonly known as: HUMALOG Inject 0-14 Units into the skin 3 (three) times daily before meals. High Dose AC Insulin Sl iding Scale Blood Glucose High Dose Less than 70 Initiate Hypoglycemia Protocol 70-119 0 Units 120-149 2 Units 150-199 3 Units 200-249 4 Units 250-299 7 Units 300-349 10 Units 350-3 99 11 Units >400* 14 Units * insulin lispro (human) 100 UNIT/ML injection QTY: 10 mL Refills: 0 Commonly known as: HUMALOG Inject 0-7 Units into the skin Nightly. High Dose HS Insulin Sliding Scale Blood Glucose Hi gh Dose Less than 70 Initiate Hypoglycemia Protocol 70-119 0 Units 120-149 0 Units 150- 199 0 Units 200-249 2 Units 250-299 3 Units 300-349 5 Units 350-399 5 Units >400* 7 Unit s levofloxacin 500 MG tablet QTY: 7 tablet Refills: 0 Commonly known as: LEVAQUIN Take 1 tablet by mouth Once a Day-Quinalones for 7 days. Start taking on: 07/03/2017 oxyCODONE 15 MG immediate release tablet QTY: 30 tablet Refills: 0 Commonly known as: ROXICODONE Take 1 tablet by mouth every 6 (six) hours as needed for Pain (6 to 7). potassium chloride 10 MEQ tablet QTY: 18 tablet Refills: 0 Commonly known as: K-DUR Take 2 tablets by mouth 2 times per day for first 3 days, then 1 tablet by mouth 2 times pe r day for the next 3 days then stop traMADol 50 MG tablet QTY: 30 tablet Refills: 0 Commonly known as: ULTRAM Take 1 tablet by mouth every 4 (four) hours as needed. * This list has 2 medication(s) that are the same as other medications prescribed for you. Read the directions carefully, and ask your doctor or other care provider to review them wit h you. CHANGE how you take these medications * furosemide 40 MG tablet QTY: 6 tablet Refills: 0 Commonly known as: LASIX Take 1 tablet by mouth 2 (two) times daily for 3 days. What changed: when to take this * furosemide 20 MG tablet QTY: 6 tablet Refills: 0 Commonly known as: LASIX Take 1 tablet by mouth 2 (two) times daily for 3 days. Start taking on: 07/05/2017 What changed: You were already taking a medication with the same name, and this prescripti on was added. Make sure you understand how and when to take each. insulin aspart 100 UNIT/ML injection QTY: 15 mL Refills: 0 Commonly known as: NOVOLOG Inject 10 Units into the skin 3 (three) times daily before meals. With meals What changed: how much to take insulin detemir 100 UNIT/ML injection QTY: 10 mL Refills: 0 Commonly known as: LEVEMIR Inject 40 Units into the skin nightly. What changed: how much to take when to take this * This list has 2 medication(s) that are the same as other medications prescribed for you. Read the directions carefully, and ask your doctor or other care provider to review them wit h you. CONTINUE taking these medications albuterol 108 (90 Base) MCG/ACT inhaler Refills: 0 Commonly known as: PROVENTIL HFA;VENTOLIN HFA aspirin 81 MG tablet Refills: 0 atorvastatin 40 MG tablet QTY: 30 tablet Refills: 11 For diagnoses: Coronary artery disease involving lower [place] coronary artery of lower [place] heart [facility] angina pectoris, Angina effort Commonly known as: LIPITOR Take 1 tablet by mouth nightly. clopidogrel 75 MG tablet QTY: 30 tablet Refills: 11 Commonly known as: PLAVIX Take 1 tablet by mouth daily. gemfibrozil 600 MG tablet QTY: 60 tablet Refills: 11 Commonly known as: LOPID Take 1 tablet by mouth 2 (two) times daily before meals. isosorbide mononitrate 60 MG 24 hr tablet QTY: 30 tablet Refills: 11 For diagnoses: Coronary artery disease involving lower [place] coronary artery of [place] heart [facility] angina pectoris Commonly known as: IMDUR Take 1 tablet by mouth daily. TO REPLACE IMDUR 30 MG losartan 25 MG tablet QTY: 30 tablet Refills: 11 Commonly known as: COZAAR Take 1 tablet by mouth daily. metoprolol 25 MG 24 hr tablet QTY: 30 tablet Refills: 11 Commonly known as: TOPROL-XL Take 1 tablet by mouth nightly. nitroGLYCERIN 0.4 MG SL tablet QTY: 90 tablet Refills: 0 Commonly known as: NITROSTAT Place 1 tablet under the tongue every 5 (five) minutes as needed for Chest pain. potassium chloride 10 MEQ CR capsule QTY: 30 capsule Refills: 11 Commonly known as: MICRO-K Take 1 capsule by mouth daily. pregabalin 75 MG capsule Refills: 0 Commonly known as: LYRICA You might also be taking other medications not listed above. If you have questions about an y of your other medications, talk to the person who prescribed them or your Primary Care Pro vider. Where to Get Your Medications These medications were sent to [facility] [place], [place] - [place] [address], [facility] [address] doxycycline 100 MG tablet DSS 100 MG Caps furosemide 20 MG tablet furosemide 40 MG tablet levofloxacin 500 MG tablet potassium chloride 10 MEQ tablet You can get these medications from any pharmacy Bring a paper prescription for each of these medications oxyCODONE 15 MG immediate release tablet traMADol 50 MG tablet Information about where to get these medications is not yet available Ask your nurse or doctor about these medications insulin aspart 100 UNIT/ML injection insulin detemir 100 UNIT/ML injection insulin lispro (human) 100 UNIT/ML injection insulin lispro (human) 100 UNIT/ML injection Discharge took less than 30 minutes, to include final examination, discussion of admission, and preparation of prescriptions, instructions for on-going care, follow-up and documentati on of discharge summary. Rios Camilo PA-C 07/02/2017 documented in this encounter Medications at Time [...] 40 Units into | | 0 | /03/23 | | | (LEVEMIR) 100 | the [...] Inject 0-7 Units | | 0 | /03/23 | | | (HUMALOG) 100 | into [...] | | | | | | | [id number] | | | | | | | 0 [id number] | | | | | | | [id number] | | | | | | | [id number] | | | | | | | [id number] | | | | | | | [id number] | | | | | | | [id number] | | | | | | | [...] Progress Notes Conversion Transaction, Provider Unknown - 07/02/2017 3:05 PM PDTFormatting of this note m ight be different from the original. Nurse Progress Note by Martha Arriaga RN at 07/02/17 1505 Author: Martha Arriaga RN Service: (none) Author Type: Registered Nurse Filed: 07/02/17 1506 Date of Service: 07/02/17 150 Status: Signed Indian Trader: Martha Arriaga RN (Registered Nurse) Discussed discharge instructions with pt and daughter. Rx pharmacy delivered medications to bedside. Narcotic scripts given to patient. Oxygen delivered at bedside. All questions answ ered, pt stated understanding. Pt refused wheelchair escort, going home with daughter. Martha Arriaga RN 07/02/17 onver mayank Transaction, Provider Unknown - 07/02/2017 2:05 PM PDT Progress Notes by Anya Madera RRT at 07/02/17 2247 Author: Anya Madera RRT Service: (none) Author Type: Registered Respiratory Therapist Filed: 07/02/17 1406 Date of Service: 07/02/17 1405 Status: Signed Indian Trader: Anya Madera RRT (Registered Respiratory Therapist) [facility] Department of Respiratory Assisted Oxygen Evaluation (Evaluation is valid for 48 hours once completed) Date: 07/02/2017 RT: Anya Madera Time: 2:06 PM Home O2 Eval at rest-Part 1 Is the patient's SpO2 88% or lower at rest & breathing room air? : No SpO2 at rest & breathing room air: 93 percent If yes, lpm O2 to keep SpO2 88% or higher at rest: 2 lpm SpO2 on O2 at rest : 92 percent Home O2 Eval during exercise-Part 2 Is the patient's SpO2 88% or lower during exercise & breathing room air? : Yes SpO2 during exercise & breathing room air : 84 percent If yes, lpm O2 to keep SpO2 88% or higher during excercise: 2 lpm SpO2 on O2 during exercise: 92 percent Home O2 Eval Comment Eval Comment: Patient ambulated without assistance, patient stated she felt short of breath with ambulation. Patient needed to 2 liters O2 with ambulation. Contacted [facility] for oxygen needs. HOME OXYGEN PROVIDER PREFERENCE PHONE FAX *NOTE* Provider must include liter flow, route of oxygen administration, frequency of use w ith duration of need in months on the prescription AND document patient s diagnosis. OXYGEN PRN IS NOT A VALID ORDER Physician Signature: Date: Time: onver mayank Transaction, Provider Unknown - 07/02/2017 11:57 AM PDT Case Management by Antonia Petit RN at 07/02/17 1157 Author: Antonia Petit RN Service: (none) Author Type: Registered Nurse Filed: 07/02/17 1158 Date of Service: 07/02/17 1157 Status: Signed Indian Trader: Antonia Petit RN (Registered Nurse) Met with pt re d/c planning, she will return home with family. FWW recommended, faxed to [facility] per pt's request. Pending home O2 eval Pt will d/c on Plavix and Po abx [facility] [place] onver mayank [place], Provider Unknown - 07/02/2017 11:01 AM PDT Therapy Progress Note by FABY Mcbride/Beatriz at 07/02/17 1101 Author: VICKY Mcbride Service: (none) Author Type: Occupational Therapist Filed: 07/02/17 1101 Date of Service: 07/02/17 1101 Status: Signed Indian Trader: VICKY Mcbride (Occupational Therapist) 07/02/17 1100 OT Last Visit OT Received On 07/02/17 Requires OT Follow Up Unavailable Other Comments Comments OT attempted to follow up with pt, per RN, pt went for walk up to the 7th floor te rrace. Will attempt to follow up with pt again prior to her d/c later today. Vale Mccloud MD - 07/02/2017 10:11 AM PDT Progress Notes by Vale Santiago MD at 07/02/17 1011 Author: Vale Santiago MD Service: Infectious Disease Author Type: Physician Filed: 07/02/17 1308 Date of Service: 07/02/17 1011 Status: Signed Indian Trader: Vale Santiago MD (Physician) [facility] Service: Infectious Disease Progress Note Hospital Day: LOS: 14 days Post-Op Day: 11 Days Post-Op SUBJECTIVE Patient Summary: Re: HAP, leukocytosis From ID consult note on 07/01: From Dr. 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 She was admitted and underwent VATS assisted Left lower lobectomy on 06/21/17. She was recovering well on the cardiac unit but she became more hypoxic overnight and went from being on 1LPM NC to 10 L then to BIPAP this am. CXR with diffuse b/l patchy opacities. She also started having CP that persisted for about 4 hours. CP was relieved by SL nitro x1 and morphine. ICU Timeline: 06/25- transferred to ICU for acute hypoxemic respiratory failure on BIPAP. ABG showed si gnificant respiratory alkalosis. Continued to deteriorate and had to be intubated overnight. 06-26: repeat echo for st changes on tele strips, pt without chest pain though.pt had kyleigh st pain during previous episodes of CAD. 06-28: extubated The patient's antibiotics for possible HCAP was managed by manager architectural team. Patient's acu te hypoxemic respiratory failure had been addressed by the antibiotics for HCAP, currently o n Zosyn/Levaquin/IV vancomycin and diuresis. Speech has been following up for dysphagia Rx. Cardiology is following up with the patient and managing diuretics, restarted patient on P lavix. Patient had been transferred out of the ICU and Kendrick Camilo PA-C has requested for formal ID evaluation re antibiotic Rx. Patient has remained afebrile since 06/27. WBC had trended down from peak of 19k to 13k yes terday but up today to 16.9k. Today is day 7 of Zosyn, day 6 of Levaquin and day 5 of IV vancomycin. She states she feels better overall. She has left sided chest pain at the site of surgery. She reports having improvement of shortness of breath but still gets short of breath with e xertion/ambulation. Cough is improving with no significant phlegm production. She has no chi lls or sweats. She denies abdominal pain, nausea, vomiting, diarrhea. There has been no dysu chetan. She has some arthralgias but not worse from baseline. There are no new skin rashes or u lcers. She has lower extremity edema and is continuing to be diuresed. Events Overnight: Doing well on oral levofloxacin/doxycycline. Afebrile and hemodynamically stable. Requiring 2 L of oxygen per nasal cannula for activity; otherwise, she denies shortness of breath. Cough is improving. Incisional pain is well controlled. No abdominal pain, nausea, vomiting, diarrhea No dysuria. No vaginal candidiasis No tendon pain No pruritus or new skin rash Scheduled Medications aspirin 81 mg Oral Daily atorvastatin 80 mg Oral Nightly clopidogrel 75 mg Oral Daily docusate sodium 100 mg Oral BID Or docusate 100 mg Per OG Tube BID doxycycline 100 mg Oral 2 times per day famotidine 20 mg Oral BID Or famotidine 20 mg Intravenous BID furosemide 40 mg Intravenous BID-Diuretics heparin (porcine) 5000 unit/0.5mL 5,000 Units Subcutaneous 3 times per day insulin detemir 30 Units Subcutaneous Nightly insulin lispro (human) 2-8 Units Subcutaneous Nightly insulin lispro (human) 4-16 Units Subcutaneous TID AC insulin lispro (human) 9 Units Subcutaneous TID AC levofloxacin 500 mg Oral QDQ Lidocaine 2 patch Transdermal Daily metoprolol 25 mg Oral Daily potassium chloride 20 mEq Oral BID WC pregabalin 75 mg Oral TID sennosides 5 mL Oral Nightly Continuous Infusions PRN Medications acetaminophen OR acetaminophen OR acetaminophen, albuterol, aluminum-magnesium hydr oxide-simethicone, clonazePAM, dextrose, dextrose, diazepam, LORazepam, magnesium hydroxide, magnesium sulfate OR magnesium sulfate OR magnesium sulfate, nitroGLYCERIN, nystati n, ondansetron OR ondansetron, oxyCODONE OR oxyCODONE OR [DISCONTINUED] oxyCODON E, petrolatum, potassium chloride in NS OR potassium chloride OR potassium chloride, traMADol OBJECTIVE Vital Signs: BP 111/67 (BP Location: Left upper arm) | Pulse 99 | Temp 98.8 F (37.1 C) (Oral) | R azael 20 | Ht 1.651 m (5' 5") | Wt 97.2 kg (214 lb 4.6 oz) | SpO2 95% | ? No | BMI 35.66 kg/m Temp: [98 F (36.7 C)-98.9 F (37.2 C)] 98.8 F (37.1 C) (07/02 722) BP: (103-133)/(59-76) 111/67 (07/02 722) Heart Rate: [80-99] 99 (07/02 722) Resp: [18-20] 20 (07/02 722) SpO2: [90 %-96 %] 95 % (07/02 722) Weight: [97.2 kg (214 lb 4.6 oz)] 97.2 kg (214 lb 4.6 oz) (07/02 304) Physical Exam Vital signs have been reviewed Gen.: Pleasant female, speaking in complete sentences. Ambulating without difficulty HEENT: Normocephalic. Anicteric sclera. Moist oral mucosa with no oral thrush or ulcers. Keller pple neck with no cervical lymphadenopathy No chest wall cellulitis; site of chest tube and incisional site well coaptated with no sig ns of infection Lungs: Decreased breath sounds at the left lung base but no wheezes, rhonchi or rales noted Cardiovascular: Normal rate. Regular rhythm. No murmur or rub Abdomen: No distention. Soft. No tenderness or palpable masses Skin: No rash Musculoskeletal: No inflamed looking joints Trace lower extremity edema Neurologic: Oriented 3. Motor strength intact Psychiatric: Appropriate mood and affect DATA CBC: Lab Results Component Value Date WBC 15.31 (H) 07/02/2017 RBC 3.01 (L) 07/02/2017 HGB 9.0 (L) 07/02/2017 HCT 26.5 (L) 07/02/2017 MCV 87.9 07/02/2017 MCH 29.7 07/02/2017 MCHC 33.8 07/02/2017 RDW 42.9 07/02/2017 PLT 418 (H) 07/02/2017 MPV 8.1 07/02/2017 DIFFTYPE AUTOMATED 07/02/2017 WBC: Lab Results Component Value Date WBC 15.31 (H) 07/02/2017 NEUTABSMAN 27.74 (H) 06/21/2017 NEUTROABS 9.64 (H) 07/02/2017 NEUTROMAN 84 06/21/2017 LYMPHOABS 1.65 06/21/2017 LYMPHOMAN 5 06/21/2017 LYMPHSABS 3.07 07/02/2017 LYMPHOPCT 20.05 07/02/2017 MONOABSMAN 1.65 (H) 06/21/2017 MONOMAN 5 06/21/2017 MONOPCT 8.47 07/02/2017 EOSABS 1.21 (H) 07/02/2017 EOSPCT 7.90 07/02/2017 BASOSABS 0.09 07/02/2017 BASOPCT 0.58 07/02/2017 BANDSPCT 6 06/21/2017 COMDIFF PLATELETS CLUMPED, APPEAR ADEQUATE 06/21/2017 CMP: Lab Results Component Value Date NA 141 07/02/2017 K 4.4 07/02/2017 CL 101 07/02/2017 CO2 32 07/02/2017 ANIONGAP 12 07/02/2017 GLUF 210 (H) 07/02/2017 BUN 21 07/02/2017 CREATININE 1.1 (H) 07/02/2017 BCR 19 07/02/2017 CA 8.8 07/02/2017 PROT 6.9 06/25/2017 ALB 1.5 (L) 06/25/2017 GLOB 4.4 06/21/2017 BILITOT 0.5 06/25/2017 ALP 150 (H) 06/25/2017 AST 81 (H) 06/25/2017 ALT 18 06/25/2017 EGFR 57 (L) 07/02/2017 Component Latest Ref Rng & Units 06/26/2017 07/01/2017 6:20 PM 9:18 AM PROCALCITONIN <0.5 ng/mL 0.64 (H) 0.12 Component Latest Ref Rng & Units 06/29/2017 06/30/2017 07/01/2017 8:27 AM 9:39 AM 9:18 AM VANCOMYCIN,TROUGH 10 - 20 ug/mL 8.3 (L) 13.7 21.4 (HH) Microbiology Data: 06/20 MRSA nasal PCR negative 06/25 Respiratory Filmarray negative 06/25 tracheal aspirate 1+ normal upper respiratory wesley 06/26 tracheal aspirate with no growth 06/26 blood cultures with no growth 06/22 urine culture with no growth S pneumoniae urine Ag negative Radiology Data: CXR Impression 1. Stable appearance of the chest. Serial CXRs reviewed 06/21 CXR - Small L PTX, pulmonary edema, L atelectasis, no consolidation 06/22 CXR - post-op findings, stable 06/23 CXR - stable 06/24 CXR - bilateral diffuse pulmonary edema; 1.4 cm L apical PTX 06/25 CXR - worsening bilateral pulmonary opacities, small L effusion 06/26 CXR - unchanged bilateral pulmonary opacities; pulmonary edema, ?infection 06/29 CXR - decreasing pulmonary congestion, stable left pleural effusion 07/01 CXR - density at ANDREW ?aortic arch; subtle interstitial infiltrates; no new consolidati on TTE Impression 1. This was a technically difficult study with suboptimal views. 2. Left ventricular systolic function is hyperdynamic with an estimated EF of >70% 06/27 TTE Impression 1. The left ventricle is normal in size and systolic function EF 65-70%. 2. There is no pericardial effusion. PROBLEM LIST Principal Problem: Malignant neoplasm of lower lobe of left lung (HCC) Active Problems: Coronary artery disease involving lower [place] coronary artery of [place] heart without angina p ectoris Essential hypertension Type 2 diabetes mellitus without complication (HCC) S/P drug eluting coronary stent placement QT prolongation Acute respiratory failure with hypoxia (HCC) Volume overload ASSESSMENT & PLAN Acute hypoxic respiratory failure -Improved; most likely combination of HCAP and pulmonary edema -s/p VATS, LL lobectomy for LLL adenocarcinoma -will defer diuretics to CTS HCAP -overall feeling better -findings on CXRs reassuring; no new infiltrates -afebrile, WBC slight trend today -Procalcitonin improved -had been on Zosyn, levofloxacin IV and vancomycin IV -blood cultures with no growth; sputum cultures with no signficant growth -Doing well on oral levofloxacin, doxycycline; OK for discharge today from ID standpoint Please prescribe 7 more days of doxycycline, po levofloxacin -Patient advised about potential antibiotic side effects including diarrhea, thrush, palpi tations, tendon pain; she was advised to contact the ID clinic if any ensue She will be following up with CTS; ID ff up as needed Leukocytosis -Slight trend down. No new focus of infection; specifically, no diarrhea to suggest C dif f Case discussed with Kendrick Camilo PA-C Code Status: Full Code VALE SANTIAGO MD 07/02/2017 Vince Carranza PA - 07/02/2017 9:15 AM PDTFormatting of this note might be different from the nan susan. Progress Notes by Rios Camilo PA-C at 07/02/17914 Author: Rios Camilo PA-C Service: Cardiac, Thoracic, and Vascular Surgery Author Ty pe: Physician Carton Catcher - Certified Filed: 07/02/17917 Date of Service: 07/02/17914 Status: Attested Indian Trader: Rios Camilo PA-C (Physician Carton Catcher - Certified) Cosigner: Rafael downing MD at 07/02/17918 Attestation signed by Rafael Wade MD at 07/02/17918 I have reviewed the note below, personally reviewed the available laboratory and imaging st udies and examined the patient. I agree with the assessment and plan mentioned below. Electronically signed by: Rafael Wade, 07/02/2017 9:19 AM Cardiothoracic Surgery Progress Note Pt: Nancy Terrazas AGE/SEX: 46 y.o. female : 1970 ROOM: [id number]/[id number] ADMIT DATE: 06/18/2017 Hospital Day: LOS: 14 days Surgery/Procedure: 06/22/17 - VATS assisted left lower lobectomy - Mediastinal lymphadenectomy (LN stations 5,6,7,9, and 10) Post-Op Day: 11 Days Post-Op SUBJECTIVE: The patient is a 46 y.o. female with significant past medical history of CAD wi th multiple stents, HTN, DM, long history of tobacco use but states she quit about 8-9 weeks ago who presents as a direct admit for eventual left lower lobe surgery from the cardiothor [facility] surgery team. The patient had a biopsy done of the lung lesion on 04/25/17 and the patho logy showed well differentiated adeno CA. Patient was referred to cardiothoracic surgery and was evaluated. She underwent testing inc luding PFT and a cardiology follow up prior to her admission in preparation for surgery. Overnight ASSESSMENT: HD stable RA-2L NC Diuresing well, UOP 5.6L/24hrs PROBLEM LIST Principal Problem: Malignant neoplasm of lower lobe of left lung (HCC) Active Problems: Coronary artery disease involving lower [place] coronary artery of [place] heart without angina p ectoris Essential hypertension Type 2 diabetes mellitus without complication (HCC) S/P drug eluting coronary stent placement QT prolongation Acute respiratory failure with hypoxia (HCC) Volume overload OBJECTIVE: Vital Signs: BP 111/67 (BP Location: Left upper arm) | Pulse 99 | Temp 98.8 F (37.1 C) (Oral) | R azael 20 | Ht 1.651 m (5' 5") | Wt 97.2 kg (214 lb 4.6 oz) | SpO2 95% | ? No | BMI 35.66 kg/m Temp: [98 F (36.7 C)-98.9 F (37.2 C)] 98.8 F (37.1 C) (07/02 722) BP: (103-133)/(59-76) 111/67 (07/02 722) Heart Rate: [80-99] 99 (07/02 722) Resp: [18-20] 20 (07/02 722) SpO2: [90 %-96 %] 95 % (07/02 722) Weight: [97.2 kg (214 lb 4.6 oz)] 97.2 kg (214 lb 4.6 oz) (07/02 304) PE: GENERAL: Pt up in chair, alert, awake NEURO: Grossly intact SKIN: Thoracoscopy incision dressing is C/D/I. Chest tube REMOVED incision C/D/I. No erythe ma, discharge, or warmth noted around the incision site. HEART: RRR/ST w/normal S1/S2. No murmur, rub, heave, or gallop noted. LUNGS: Lungs are CTAB w/o wheezing, crackles, or rhonchi. Dim bases ABDOMEN: Soft, nontender. BS present. DATA: Scheduled Medications aspirin 81 mg Oral Daily atorvastatin 80 mg Oral Nightly clopidogrel 75 mg Oral Daily docusate sodium 100 mg Oral BID Or docusate 100 mg Per OG Tube BID doxycycline 100 mg Oral 2 times per day famotidine 20 mg Oral BID Or famotidine 20 mg Intravenous BID furosemide 40 mg Intravenous BID-Diuretics heparin (porcine) 5000 unit/0.5mL 5,000 Units Subcutaneous 3 times per day insulin detemir 30 Units Subcutaneous Nightly insulin lispro (human) 2-8 Units Subcutaneous Nightly insulin lispro (human) 4-16 Units Subcutaneous TID AC insulin lispro (human) 9 Units Subcutaneous TID AC levofloxacin 500 mg Oral QDQ Lidocaine 2 patch Transdermal Daily metoprolol 25 mg Oral Daily potassium chloride 20 mEq Oral BID WC pregabalin 75 mg Oral TID sennosides 5 mL Oral Nightly Continuous Infusions PRN Medications acetaminophen OR acetaminophen OR acetaminophen, albuterol, aluminum-magnesium hydr oxide-simethicone, clonazePAM, dextrose, dextrose, diazepam, LORazepam, magnesium hydroxide, magnesium sulfate OR magnesium sulfate OR magnesium sulfate, nitroGLYCERIN, nystati n, ondansetron OR ondansetron, oxyCODONE OR oxyCODONE OR [DISCONTINUED] oxyCODON E, petrolatum, potassium chloride in NS OR potassium chloride OR potassium chloride, traMADol HOME MEDS: Prior to Admission medications Medication Sig Start Date End Date Taking? Authorizing Provider aspirin 81 MG tablet Take 81 mg by mouth daily. Last dose Saturday due to lung biopsy toda y Yes Historical Provider atorvastatin (LIPITOR) 40 MG tablet Take 1 tablet by mouth nightly. 03/13/17 03/13/18 Yes Christina mayer PRICE Babcock clopidogrel (PLAVIX) 75 MG tablet Take 1 tablet by mouth daily. 03/13/17 Yes PRICE Serrato furosemide (LASIX) 40 MG tablet Take 1 tablet by mouth daily. 03/13/17 03/13/18 Yes PRICE Silvestre albuterol (PROVENTIL HFA;VENTOLIN HFA) 108 (90 BASE) MCG/ACT inhaler Inhale 2 puffs into th e lungs every 4 (four) hours as needed for Wheezing. Historical Provider gemfibrozil (LOPID) 600 MG tablet Take 1 tablet by mouth 2 (two) times daily before meals. 03/13/17 03/13/18 PRICE Silvestre insulin aspart (NOVOLOG) 100 UNIT/ML injection Inject 45 Units into the skin 3 (three) time s daily before meals. With meals Historical Provider insulin detemir (LEVEMIR) 100 UNIT/ML injection Inject 60 Units into the skin 2 (two) times daily. Historical Provider isosorbide mononitrate (IMDUR) 60 MG 24 hr tablet Take 1 tablet by mouth daily. TO REPLACE IMDUR 30 MG 06/03/17 06/03/18 PRICE Silvestre losartan (COZAAR) 25 MG tablet Take 1 tablet by mouth daily. 03/13/17 PRICE Silvestre metoprolol (TOPROL-XL) 25 MG 24 hr tablet Take 1 tablet by mouth nightly. 03/13/17 03/13/18 PRICE Silvestre nitroGLYCERIN (NITROSTAT) 0.[address] 1 tablet under the tongue every 5 (five) m inutes as needed for Chest pain. 07/25/16 07/25/17 Pilo Ocampo MD potassium chloride (MICRO-K) 10 MEQ CR capsule Take 1 capsule by mouth daily. 03/13/17 PRICE Silvestre pregabalin (LYRICA) 75 MG capsule Take 75 mg by mouth 3 (three) times daily. Historical Provider LABS: Recent Labs Lab 07/02/17 0527 07/01/17 0406 06/30/17 0418 WBC 15.31* 16.90* 13.28* HGB 9.0* 9.4* 8.6* HCT 26.5* 27.9* 25.3* PLT 418* 407* 378 NEUTOPHILPCT 63.00 63.95 64.56 MONOPCT 8.47 7.76 8.57 Recent Labs Lab 07/02/17 0527 07/01/17 0918 07/01/17 0406 06/30/17 0418 NA 141 -- 140 -- 143 K 4.4 4.1 3.6 < > 3.8 CL 101 -- 103 -- 107 CO2 32 -- 32 -- 27 BUN 21 -- 15 -- 10 CREATININE 1.1* -- 0.9 -- 0.6 < > = values in this interval not displayed. Phosphorus: Lab Results Component Value Date PHOS 4.1 06/30/2017 Invalid input(s): LABALBU Recent Labs Lab 07/02/17 0527 07/01/17 0406 06/30/17 1958 MG 1.8 1.7 1.7 No results for input(s): AMYLASE in the last 168 hours. Recent Labs Lab 06/27/17 1209 06/26/17 0018 06/25/17 1650 BEART 3 0 1 No results for input(s): APTT, INR, PTT in the last 168 hours. No results for input(s): TSH, T3FREE, FREET4 in the last 168 hours. Recent Labs Lab 06/26/17 1500 06/26/17 0852 06/26/17 0304 CKTOTAL 62 78 99 TROPONINI 0.367* 0.415* 0.438* CKMBINDEX UNABLE TO CALCULATE 2.3 1.8 Current Labs: PT/INR: Lab Results Component Value Date INR 0.9 06/21/2017 HgBA1c: Lab Results Component Value Date HGBA1C 9.2 (H) 06/27/2017 LABGLYC 217 06/27/2017 PLAN: Likely aspiration pneumonia: appreciate Training And Development Director, ID and Pulmonary assistance. -Afebrile overnight and WBCs stable. BC no growth. Transitioned to oral Doxycycline/Levaqui n yesterday -Wean O2, encourage IS, ambulate Discharge to home today: Continue diuresis (40BID x3 days, 20 BID x 3 days)/K+ supplementation Home O2 eval The patient has been seen and the plan discussed with the attending provider, Dr. Sheri Camilo PA-C 07/02/2017 9:15 AM onversion Transact ion, Provider Unknown - 07/01/2017 11:30 PM PDTFormatting of this note might be different fr om the original. Nurse Progress Note by Alycia Hernandez RN at 07/01/172329 Author: Alycia Hernandez RN Service: (none) Author Type: Registered Nurse Filed: 07/02/17 0000 Date of Service: 07/01/172329 Status: Signed Indian Trader: Alycia Hernandez RN (Registered Nurse) Patient transferred with daughter and belongings to [facility] approx 2300. VSS. Report received f luis e Perez RN. Patient tearful initially r/t anxiety secondary to the transfer. Patient reas sured and iscurrently resting comfortably. Alycia Hernandez RN onver mayank Transaction, Provider Unknown - 07/01/2017 9:15 PM PDT Nurse Progress Note by Bahman Moulton RN at 07/01/172114 Author: Bahman Moulton RN Service: Training And Development Director Author Type: Registered Nurse Filed: 07/01/172234 Date of Service: 07/01/172114 Status: Signed Indian Trader: Bahman Moulton RN (Registered Nurse) Pt/family contacted Dr. Wade about worrying about pain control after pt is transferred t o [facility] (please see chart, this was reported to be a problem previously). MD asked RN to read off pts prn pain medications. Pt has 15 mg oxycodone ordered every 4 hours tats was given at 1848. Dr. wade was also informed of 3 anxiety medications on prn mar as well. Orders for prn ultram and and addition dose of iv lasix and po potassium where taken as well. See mar for administration. BAHMAN MOULTON liazar Christensen PT - 07/01/2017 5:00 PM PDTFormatting of this note might be different from the o laurainal. Therapy Progress Note by Eliazar Christensen PT at 07/01/17 1700 Author: Eliazar Christensen PT Service: (none) Author Type: Physical Therapist Filed: 07/01/17 1700 Date of Service: 07/01/17 170 Status: Signed Indian Trader: Eliazar Christensen PT (Physical Therapist) 07/01/17 1653 PT Last Visit PT Received On 07/01/17 Requires PT Follow Up No Other Comments Comments Per chart review, RN, and observation of pt amb with FWW, she is mobilizing safely and independent with use of FWW. Pt. has good support at home, recommend D/C home with assi st when medically cleared, will D/C from skilled PT services at this time. Plan Treatment/Interventions Discharge skilled PT services onversion Transacti on, Provider Unknown - 07/01/2017 11:35 AM PDTFormatting of this note might be different fro m the original. Case Management by MEG Benitez at 07/01/17 1135 Author: MEG Benitez Service: (none) Author Type: Head Packager Filed: 07/01/17 1139 Date of Service: 07/01/17 1135 Status: Signed Indian Trader: MEG Benitez (Head Packager) 07/01/17 1100 Discharge Planning Evaluation Admitting Diagnosis s/p Thoracotomy Anticipated Disposition Facility Type Home infusion;Home Home Infusion [facility] T[facility]/Enteral Feedings [place] COIN MACHINE ASSEMBLER followed up with Pt and Pt dghtr (Kelly Terrazas [phone]) for support, resources and discharge planning. COIN MACHINE ASSEMBLER followed up regarding request for food Vouchers for Pt dghtr. Infectious Disease consult today, hopefully Pt will transition to oral Abx, discussed [facility] e Resource Option sheet with Pt and has preference for [facility] to follow as needed. COIN MACHINE ASSEMBLER p/c with Christian with [facility] ([phone] cell) will follow Pt, faxed clinicals. Pt is interested in a FWW with seat and a hospital bed with preference with [facility] as necessary. Will need prescription for these if appropriate per Cardio Thoracic Providers. COIN MACHINE ASSEMBLER will continue to follow as needed. DCP: Home with Pt dghtr BAHMAN ROSADO [phone] cell Pilo Serrato MD - 07/01/2017 10:46 AM PDTFormatting of this note might be different fr om the original. Progress Notes by Pilo Ocampo MD at 07/01/17 1046 Author: Pilo Ocampo MD Service: Cardiology Author Type: Physician Filed: 07/01/17 1054 Date of Service: 07/01/17 104 Status: Signed Indian Trader: Pilo Ocampo MD (Physician) [facility] Service: Cardiology Progress Note Hospital Day: LOS: 13 days Post-Op Day: 9 Days Post-Op SUBJECTIVE Patient Summary: Events Overnight: Shortness of breath improved. Mild SOB with ambulation. No orthopne a. Continue to have sharp chest pain, persistent. increased by cough and deep breath, consis tent with pleuritic type chest pain. Overall feels better. Tele: sinus rhythm Scheduled Medications aspirin 81 mg Oral Daily atorvastatin 80 mg Oral Nightly clopidogrel 75 mg Oral Daily docusate sodium 100 mg Oral BID Or docusate 100 mg Per OG Tube BID famotidine 20 mg Oral BID Or famotidine 20 mg Intravenous BID furosemide 40 mg Intravenous BID-Diuretics heparin (porcine) 5000 unit/0.5mL 5,000 Units Subcutaneous 3 times per day insulin detemir 23 Units Subcutaneous Nightly insulin lispro (human) 2-8 Units Subcutaneous Nightly insulin lispro (human) 4-16 Units Subcutaneous TID AC insulin lispro (human) 6 Units Subcutaneous TID AC levofloxacin 500 mg Intravenous Q24H Lidocaine 2 patch Transdermal Daily metoprolol 25 mg Oral Daily piperacillin-tazobactam 3.375 g 3.375 g Intravenous Q8H potassium chloride 20 mEq Oral BID WC pregabalin 75 mg Oral TID sennosides 5 mL Oral Nightly vancomycin 17 mg/kg Intravenous Q12H Continuous Infusions PRN Medications acetaminophen OR acetaminophen OR acetaminophen, albuterol, aluminum-magnesium hydr oxide-simethicone, clonazePAM, dextrose, dextrose, diazepam, LORazepam, magnesium hydroxide, magnesium sulfate OR magnesium sulfate OR magnesium sulfate, nitroGLYCERIN, nystati n, ondansetron OR ondansetron, oxyCODONE OR oxyCODONE OR [DISCONTINUED] oxyCODON E, petrolatum, potassium chloride in NS OR potassium chloride OR potassium chloride OBJECTIVE Vital Signs: BP 105/57 (BP Location: Left upper arm) | Pulse 89 | Temp 98 F (36.7 C) (Oral) | Res p 20 | Ht 1.651 m (5' 5") | Wt 95.7 kg (210 lb 15.7 oz) | SpO2 98% | ? No | BMI 35.11 kg/m Temp: [98 F (36.7 C)-99 F (37.2 C)] 98 F (36.7 C) (07/02 735) BP: (94-147)/(57-75) 105/57 (07/02 735) Heart Rate: [83-110] 89 (07/02 735) Resp: [18-24] 20 (07/02 735) SpO2: [89 %-98 %] 98 % (07/02 735) Weight: [95.7 kg (210 lb 15.7 oz)] 95.7 kg (210 lb 15.7 oz) (07/02 347) Patient Vitals for the past 24 hrs: BP Temp Temp src Pulse Resp SpO2 Weight 07/01/17735 105/57 98 F (36.7 C) Oral 89 20 98 % - 07/01/17 0500 - - - 85 - - - 07/01/17 0400 - - - 91 - - - 07/01/17 034 12861 - - 96 - 95 % 95.7 kg (210 lb 15.7 oz) 07/01/17 034 12861 98.4 F (36.9 C) Oral 97 24 (!) 89 % - 07/01/17 0300 - - - 84 - - - 07/01/17 0200 - - - 84 - - - 07/01/17 0100 - - - 83 - - - 07/01/17 0008 147/75 98.9 F (37.2 C) Oral 86 20 93 % - 07/01/17 0000 - - - 108 - - - 06/30/17 2300 - - - 91 - - - 06/30/17 220 - - - 105 - - - 06/30/17 2100 - - - 104 - - - 06/30/171999 - - - 100 - 92 % - 06/30/17 1959 100/65 98.4 F (36.9 C) Oral 95 20 98 % - 06/30/17 1520 94/65 98.6 F (37 C) Oral 84 18 93 % - 06/30/17 1145 116/67 99 F (37.2 C) Oral 110 18 92 % - Intake/Output Summary (Last 24 hours) at 07/01/17 1046 Last data filed at 07/01/17 0830 Gross per 24 hour Intake 2775.87 ml Output 5650 ml Net -2874.13 ml General appearance: alert, appears stated age, cooperative and no distress Head: Normocephalic, without obvious abnormality, atraumatic Eyes: negative findings: conjunctivae and sclerae normal and No jandice. Nose: no discharge Neck: no carotid bruit, no JVD, supple, symmetrical, trachea midline and thyroid not enlarg ed, symmetric, no tenderness/mass/nodules Lungs: clear to auscultation bilaterally and diminished breath sounds LLL Heart: regular rate and rhythm, S1, S2 normal, no murmur, click, rub or gallop Abdomen: soft, non-tender; bowel sounds normal; no masses, no organomegaly Musculoskeletal: There is no redness, warmth, or swelling of the joints. Full range of mo tion noted. Motor strength is 5 out of 5 all extremities bilaterally. Tone is normal. Extremities: edema +2 Chevy LE Skin: Skin color, texture, turgor normal. No rashes or lesions Neurologic: Grossly normal DATA CBC: Lab Results Component Value Date WBC 16.90 (H) 07/01/2017 RBC 3.18 (L) 07/01/2017 HGB 9.4 (L) 07/01/2017 HCT 27.9 (L) 07/01/2017 MCV 87.8 07/01/2017 MCH 29.5 07/01/2017 MCHC 33.6 07/01/2017 RDW 42.4 07/01/2017 PLT 407 (H) 07/01/2017 MPV 8.3 07/01/2017 DIFFTYPE AUTOMATED 07/01/2017 CMP: Lab Results Component Value Date NA 140 07/01/2017 K 4.1 07/01/2017 CL 103 07/01/2017 CO2 32 07/01/2017 ANIONGAP 9 07/01/2017 GLUF 178 (H) 07/01/2017 BUN 15 07/01/2017 CREATININE 0.9 07/01/2017 BCR 17 07/01/2017 CA 8.2 (L) 07/01/2017 PROT 6.9 06/25/2017 ALB 1.5 (L) 06/25/2017 GLOB 4.4 06/21/2017 BILITOT 0.5 06/25/2017 ALP 150 (H) 06/25/2017 AST 81 (H) 06/25/2017 ALT 18 06/25/2017 EGFR >60 07/01/2017 Magnesium: Lab Results Component Value Date MG 1.7 07/01/2017 Last 3 Troponin: Lab Results Component Value Date TROPONINI 0.367 (H) 06/26/2017 TROPONINI 0.415 (H) 06/26/2017 TROPONINI 0.438 (H) 06/26/2017 CPK: Lab Results Component Value Date CKTOTAL 62 06/26/2017 CKMB: Lab Results Component Value Date CKMB <1.0 06/26/2017 ECG 06/30/2017 personally reviewed, showed NSR, poor R wave progression. No ischemic changes . Echo 06/27/2017 Impression 1. The left ventricle is normal in size and systolic function EF 65-70%. 2. There is no pericardial effusion. CXR 06/30/2017 FINDINGS: Unchanged left hemithorax volume loss. Unchanged small to moderate left pleural effusion. U nchanged mild diffuse mixed interstitial alveolar lung opacities without pneumothorax. Cardi ac silhouette partially obscured without gross cardiomegaly. Remainder is stable. IMPRESSION: 1. Overall, no significant interval change compared with the exam done the day prior. LEM LIST Principal Problem: Malignant neoplasm of lower lobe of left lung (HCC) Active Problems: Coronary artery disease involving lower [place]a coronary artery of lower [place] heart without angina p ectoris Essential hypertension Type 2 diabetes mellitus without complication (HCC) S/P drug eluting coronary stent placement QT prolongation Acute respiratory failure with hypoxia ([facility]) Volume overload ASSESSMENT & PLAN 1. Minimally elevated troponins, less than the threshold for acute myocardial infarction, l ikely related to severe hypoxemia 2. Acute hypoxemic respiratory failure. Resolved. 3. Coronary artery disease status post prior stents proximal left anterior descending arter y, LAD stent thrombosis/ ST elevation myocardial infarction with the balloon angioplasty at [place] in February 13, 2017. Currently stable without angina. 4. Left lower lobe lung adenocarcinoma status post VATS assisted left lower lobectomy 5. Bilateral lung opacities, currently on antibiotics for possible healthcare associated pn eumonia. 6. Volume overload/pulmonary edema 7. Hypertension currently controlled Patient continued to have pleuritic chest pain, likely related to lung surgery. No angina. SOB improving Diuresing well with IV lasix. Renal function stable. Continue IV lasix Monitor renal function, electrolytes and volume status Supplement potassium as needed. Continue medical management for coronary artery disease with aspirin, Plavix, high-dose brigitte rvastatin, metoprolol Patient is covered with vancomycin, Levaquin and Zosyn for healthcare associated pneumonia. Thank you for allowing me to participate in the care of this patient. Disposition: Code Status: Full Code Pilo Ocampo MD 07/01/2017 oggs, RAMOS Bergeron 07/01/2017 9:10 AM PDT Progress Notes by Rios Camilo PA-C at 07/01/17909 Author: Rios Camilo PA-C Service: Cardiac, Thoracic, and Vascular Surgery Author Ty pe: Physician Carton Catcher - Certified Filed: 07/01/17913 Date of Service: 07/01/17909 Status: Attested Indian Trader: Rios Camilo PA-C (Physician Carton Catcher - Certified) Cosigner: Rafael downing MD at 07/01/17 4383 Attestation signed by Rafael Wade MD at 07/01/17 7077 I have reviewed the note below, personally reviewed the available laboratory and imaging st udies and examined the patient. I agree with the assessment and plan mentioned below. Electronically signed by: Rafael Wade, 07/01/2017 2:13 PM Cardiothoracic Surgery Progress Note Pt: Nancy Terrazas AGE/SEX: 46 y.o. female : 1970 ROOM: [address] [place] [address] ADMIT DATE: 06/18/2017 Hospital Day: LOS: 13 days Surgery/Procedure: 06/22/17 - VATS assisted left lower lobectomy - Mediastinal lymphadenectomy (LN stations 5,6,7,9, and 10) Post-Op Day: 10 Days Post-Op SUBJECTIVE: The patient is a 46 y.o. female with significant past medical history of CAD wi th multiple stents, HTN, DM, long history of tobacco use but states she quit about 8-9 weeks ago who presents as a direct admit for eventual left lower lobe surgery from the cardiothor [facility] surgery team. The patient had a biopsy done of the lung lesion on 04/25/17 and the patho logy showed well differentiated adeno CA. Patient was referred to cardiothoracic surgery and was evaluated. She underwent testing inc luding PFT and a cardiology follow up prior to her admission in preparation for surgery. Overnight ASSESSMENT: HD stable RA-2L NC PROBLEM LIST Principal Problem: Malignant neoplasm of lower lobe of left lung (HCC) Active Problems: Coronary artery disease involving lower [place] coronary artery of lower [place] heart without angina p ectoris Essential hypertension Type 2 diabetes mellitus without complication (HCC) S/P drug eluting coronary stent placement QT prolongation Acute respiratory failure with hypoxia (HCC) Volume overload OBJECTIVE: Vital Signs: BP 105/57 (BP Location: Left upper arm) | Pulse 89 | Temp 98 F (36.7 C) (Oral) | Res p 20 | Ht 1.651 m (5' 5") | Wt 95.7 kg (210 lb 15.7 oz) | SpO2 98% | ? No | BMI 35.11 kg/m Temp: [98 F (36.7 C)-99 F (37.2 C)] 98 F (36.7 C) (07/02 735) BP: (94-147)/(57-75) 105/57 (07/02 735) Heart Rate: [83-110] 89 (07/02 735) Resp: [18-24] 20 (07/02 735) SpO2: [89 %-98 %] 98 % (07/02 735) Weight: [95.7 kg (210 lb 15.7 oz)] 95.7 kg (210 lb 15.7 oz) (07/02 347) PE: GENERAL: Pt up in chair, alert, awake NEURO: Grossly intact SKIN: Thoracoscopy incision dressing is C/D/I. Chest tube REMOVED incision C/D/I. No erythe ma, discharge, or warmth noted around the incision site. HEART: RRR/ST w/normal S1/S2. No murmur, rub, heave, or gallop noted. LUNGS: Lungs are CTAB w/o wheezing, crackles, or rhonchi. Dim bases ABDOMEN: Soft, nontender. BS present. DATA: Scheduled Medications aspirin 81 mg Oral Daily atorvastatin 80 mg Oral Nightly clopidogrel 75 mg Oral Daily docusate sodium 100 mg Oral BID Or docusate 100 mg Per OG Tube BID famotidine 20 mg Oral BID Or famotidine 20 mg Intravenous BID furosemide 40 mg Intravenous BID-Diuretics heparin (porcine) 5000 unit/0.5mL 5,000 Units Subcutaneous 3 times per day insulin detemir 23 Units Subcutaneous Nightly insulin lispro (human) 2-8 Units Subcutaneous Nightly insulin lispro (human) 4-16 Units Subcutaneous TID AC insulin lispro (human) 6 Units Subcutaneous TID AC levofloxacin 500 mg Intravenous Q24H Lidocaine 2 patch Transdermal Daily metoprolol 25 mg Oral Daily piperacillin-tazobactam 3.375 g 3.375 g Intravenous Q8H potassium chloride 20 mEq Oral BID WC pregabalin 75 mg Oral TID sennosides 5 mL Oral Nightly vancomycin 17 mg/kg Intravenous Q12H Continuous Infusions PRN Medications acetaminophen OR acetaminophen OR acetaminophen, albuterol, aluminum-magnesium hydr oxide-simethicone, clonazePAM, dextrose, dextrose, diazepam, LORazepam, magnesium hydroxide, magnesium sulfate OR magnesium sulfate OR magnesium sulfate, nitroGLYCERIN, nystati n, ondansetron OR ondansetron, oxyCODONE OR oxyCODONE OR [DISCONTINUED] oxyCODON E, petrolatum, potassium chloride in NS OR potassium chloride OR potassium chloride HOME MEDS: Prior to Admission medications Medication Sig Start Date End Date Taking? Authorizing Provider aspirin 81 MG tablet Take 81 mg by mouth daily. Last dose Saturday due to lung biopsy toda y Yes Historical Provider atorvastatin (LIPITOR) 40 MG tablet Take 1 tablet by mouth nightly. 03/13/17 03/13/18 Yes Mar y PRICE Babcock clopidogrel (PLAVIX) 75 MG tablet Take 1 tablet by mouth daily. 03/13/17 Yes RaniPRICE Feliciano furosemide (LASIX) 40 MG tablet Take 1 tablet by mouth daily. 03/13/17 03/13/18 Yes PRICE Silvestre albuterol (PROVENTIL HFA;VENTOLIN HFA) 108 (90 BASE) MCG/ACT inhaler Inhale 2 puffs into th e lungs every 4 (four) hours as needed for Wheezing. Historical Provider gemfibrozil (LOPID) 600 MG tablet Take 1 tablet by mouth 2 (two) times daily before meals. 03/13/17 03/13/18 PRICE Silvestre insulin aspart (NOVOLOG) 100 UNIT/ML injection Inject 45 Units into the skin 3 (three) time s daily before meals. With meals Historical Provider insulin detemir (LEVEMIR) 100 UNIT/ML injection Inject 60 Units into the skin 2 (two) times daily. Historical Provider isosorbide mononitrate (IMDUR) 60 MG 24 hr tablet Take 1 tablet by mouth daily. TO REPLACE IMDUR 30 MG 06/03/17 06/03/18 PRICE Silvestre losartan (COZAAR) 25 MG tablet Take 1 tablet by mouth daily. 03/13/17 PRICE Silvestre metoprolol (TOPROL-XL) 25 MG 24 hr tablet Take 1 tablet by mouth nightly. 03/13/17 03/13/18 PRICE Silvestre nitroGLYCERIN (NITROSTAT) 0.[address] 1 tablet under the tongue every 5 (five) m inutes as needed for Chest pain. 07/25/16 07/25/17 Pilo Ocampo MD potassium chloride (MICRO-K) 10 MEQ CR capsule Take 1 capsule by mouth daily. 03/13/17 PRICE Silvestre pregabalin (LYRICA) 75 MG capsule Take 75 mg by mouth 3 (three) times daily. Historical Provider LABS: Recent Labs Lab 07/01/1740506/30/1741706/29/17410 WBC 16.90* 13.28* 12.85* HGB 9.4* 8.6* 8.7* HCT 27.9* 25.3* 25.8* PLT 407* 378 342 NEUTOPHILPCT 63.95 64.56 61.81 MONOPCT 7.76 8.57 9.37 Recent Labs Lab 07/01/1740506/30/[id number]/30/[id number]/29/1741006/25/17 0533 NA 140 -- 143 144 < > -- K 3.6 4.0 3.8 3.8 < > -- CL 103 -- 107 107 < > -- CO2 32 -- 27 27 < > -- BUN 15 -- 10 9 < > -- CREATININE 0.9 -- 0.6 0.6 < > -- PROT -- -- -- -- -- 6.9 BILITOT -- -- -- -- -- 0.5 ALT -- -- -- -- -- 18 AST -- -- -- -- -- 81* < > = values in this interval not displayed. Phosphorus: Lab Results Component Value Date PHOS 4.1 06/30/2017 Invalid input(s): LABALBU Recent Labs Lab 07/01/1740506/30/17195706/30/17417 MG 1.7 1.7 1.8 No results for input(s): AMYLASE in the last 168 hours. Recent Labs Lab 06/27/17 1209 06/26/17 0018 06/25/17 1650 BEART 3 0 1 No results for input(s): APTT, INR, PTT in the last 168 hours. No results for input(s): TSH, T3FREE, FREET4 in the last 168 hours. Recent Labs Lab 06/26/17 1500 06/26/17 0852 06/26/17 0304 CKTOTAL 62 78 99 TROPONINI 0.367* 0.415* 0.438* CKMBINDEX UNABLE TO CALCULATE 2.3 1.8 Current Labs: PT/INR: Lab Results Component Value Date INR 0.9 06/21/2017 HgBA1c: Lab Results Component Value Date HGBA1C 9.2 (H) 06/27/2017 LABGLYC 217 06/27/2017 PLAN: Likely aspiration pneumonia: appreciate Training And Development Director, ID and Pulmonary assistance. -Afebrile overnight and WBCs stable. BC no growth. On Vanco, Zosyn, Levaquin. Await ID sultana mmendations for Abx. -Wean O2, encourage IS, ambulate -Daily CXRs Cardiac Unit status, awaiting bed The patient has been seen and the plan discussed with the attending provider, Dr. Mikaela Camilo PA-C 07/01/2017 9:10 AM onversion Transact ion, Provider Unknown - 06/30/2017 2:40 PM PDTFormatting of this note might be different fr om the original. Therapy Progress Note by Gemini Hayden PT at 06/30/17 6950 Author: Gemini Hayden PT Service: (none) Author Type: Physical Therapist Filed: 06/30/17 4195 Date of Service: 06/30/17 1440 Status: Addendum Indian Trader: Gemini Hayden PT (Physical Therapist) Related Notes: Original Note by Gemini Hayden PT (Physical Therapist) filed at 06/30/17 6213 PHYSICAL THERAPY TREATMENT NOTE PT Received On: (P) 06/30/17 Requires PT Follow Up: Awaiting tx order, On hold Summary Comments: Pt with improved status, now extubated. Remains limited by pn but improving karen gray, ADRIENNE reporting independent. Awaiting new orders d/t transfer to ICU on 06/25. Pilo Serrato MD - 06/30/2017 12:45 PM PDTFormatting of this note might be different fr om the original. Progress Notes by Pilo Ocampo MD at 06/30/17 1245 Author: Pilo Ocampo MD Service: Cardiology Author Type: Physician Filed: 06/30/17 0216 Date of Service: 06/30/171244 Status: Signed Indian Trader: Pilo Ocampo MD (Physician) [facility] Service: Cardiology Progress Note Hospital Day: LOS: 12 days Post-Op Day: 9 Days Post-Op SUBJECTIVE Patient Summary: Events Overnight: Shortness of breath with ambulation to the bathroom. Continue to coughlin ve sharp chest pain, persistent. increased by cough and deep breath, consistent with pleurit ic type chest pain. Mild lightheadedness with ambulation. Denies orthopnea Tele: sinus rhythm Scheduled Medications aspirin 81 mg Oral Daily atorvastatin 80 mg Oral Nightly clopidogrel 75 mg Oral Daily docusate sodium 100 mg Oral BID Or docusate 100 mg Per OG Tube BID famotidine 20 mg Oral BID Or famotidine 20 mg Intravenous BID [START ON 07/01/2017] furosemide 40 mg Oral Daily heparin (porcine) 5000 unit/0.5mL 5,000 Units Subcutaneous 3 times per day insulin detemir 23 Units Subcutaneous Nightly insulin lispro (human) 2-8 Units Subcutaneous Nightly insulin lispro (human) 4-16 Units Subcutaneous TID AC insulin lispro (human) 6 Units Subcutaneous TID AC levofloxacin 500 mg Intravenous Q24H Lidocaine 2 patch Transdermal Daily metoprolol 25 mg Oral Daily piperacillin-tazobactam 3.375 g 3.375 g Intravenous Q8H potassium chloride 20 mEq Oral Daily pregabalin 75 mg Oral TID sennosides 5 mL Oral Nightly vancomycin 17 mg/kg Intravenous Q12H Continuous Infusions PRN Medications acetaminophen OR acetaminophen OR acetaminophen, albuterol, aluminum-magnesium hydr oxide-simethicone, clonazePAM, dextrose, dextrose, diazepam, LORazepam, magnesium hydroxide, magnesium sulfate OR magnesium sulfate OR magnesium sulfate, nitroGLYCERIN, nystati n, ondansetron OR ondansetron, oxyCODONE OR oxyCODONE OR [DISCONTINUED] oxyCODON E, petrolatum, potassium chloride in NS OR potassium chloride OR potassium chloride OBJECTIVE Vital Signs: BP 116/67 (BP Location: Left upper arm) | Pulse 110 | Temp 99 F (37.2 C) (Oral) | Re sp 18 | Ht 1.651 m (5' 5") | Wt 96.2 kg (212 lb 1.3 oz) | SpO2 92% | ? No | BMI 35.29 kg/m Temp: [98 F (36.7 C)-99 F (37.2 C)] 99 F (37.2 C) (06/30 1145) BP: (99-140)/(57-68) 116/67 (06/30 1145) Heart Rate: [89-110] 110 (06/30 1145) Resp: [18-20] 18 (06/30 114) SpO2: [92 %-96 %] 92 % (06/30 114) Patient Vitals for the past 24 hrs: BP Temp Temp src Pulse Resp SpO2 06/30/17 1145 116/67 99 F (37.2 C) Oral 110 18 92 % 06/30/17 1027 108/57 - - 89 - - 06/30/17 0836 112/62 98.8 F (37.1 C) Oral 97 20 96 % 06/30/17 0406 140/68 99 F (37.2 C) Oral 92 20 94 % 06/29/17 2326 121/67 98.6 F (37 C) Oral 104 20 95 % 06/29/17 1924 99/64 98 F (36.7 C) Oral 105 20 96 % 06/29/17 1635 103/58 98.6 F (37 C) Oral - 20 96 % Intake/Output Summary (Last 24 hours) at 06/30/17 1254 Last data filed at 06/30/17 0600 Gross per 24 hour Intake 1109 ml Output 1200 ml Net -91 ml General appearance: alert, appears stated age, cooperative and no distress Head: Normocephalic, without obvious abnormality, atraumatic Eyes: negative findings: conjunctivae and sclerae normal and No jandice. Nose: no discharge Neck: no carotid bruit, no JVD, supple, symmetrical, trachea midline and thyroid not enlarg ed, symmetric, no tenderness/mass/nodules Lungs: clear to auscultation bilaterally and diminished breath sounds ANDREW Heart: regular rate and rhythm, S1, S2 normal, no murmur, click, rub or gallop Abdomen: soft, non-tender; bowel sounds normal; no masses, no organomegaly Musculoskeletal: There is no redness, warmth, or swelling of the joints. Full range of mo tion noted. Motor strength is 5 out of 5 all extremities bilaterally. Tone is normal. Extremities: edema +2 Chevy LE Skin: Skin color, texture, turgor normal. No rashes or lesions Neurologic: Grossly normal DATA CBC: Lab Results Component Value Date WBC 13.28 (H) 06/30/2017 RBC 2.89 (L) 06/30/2017 HGB 8.6 (L) 06/30/2017 HCT 25.3 (L) 06/30/2017 MCV 87.5 06/30/2017 MCH 29.6 06/30/2017 MCHC 33.9 06/30/2017 RDW 42.4 06/30/2017 PLT 378 06/30/2017 MPV 8.2 06/30/2017 DIFFTYPE AUTOMATED 06/30/2017 CMP: Lab Results Component Value Date NA 143 06/30/2017 K 3.8 06/30/2017 CL 107 06/30/2017 CO2 27 06/30/2017 ANIONGAP 13 06/30/2017 GLUF 267 (H) 06/30/2017 BUN 10 06/30/2017 CREATININE 0.6 06/30/2017 BCR 17 06/30/2017 CA 8.1 (L) 06/30/2017 PROT 6.9 06/25/2017 ALB 1.5 (L) 06/25/2017 GLOB 4.4 06/21/2017 BILITOT 0.5 06/25/2017 ALP 150 (H) 06/25/2017 AST 81 (H) 06/25/2017 ALT 18 06/25/2017 EGFR >60 06/30/2017 Magnesium: Lab Results Component Value Date MG 1.8 06/30/2017 Last 3 Troponin: Lab Results Component Value Date TROPONINI 0.367 (H) 06/26/2017 TROPONINI 0.415 (H) 06/26/2017 TROPONINI 0.438 (H) 06/26/2017 CPK: Lab Results Component Value Date CKTOTAL 62 06/26/2017 CKMB: Lab Results Component Value Date CKMB <1.0 06/26/2017 ECG 06/30/2017 personally reviewed, showed NSR, poor R wave progression. No ischemic changes . Echo 06/27/2017 Impression 1. The left ventricle is normal in size and systolic function EF 65-70%. 2. There is no pericardial effusion. CXR 06/30/2017 FINDINGS: Unchanged left hemithorax volume loss. Unchanged small to moderate left pleural effusion. U nchanged mild diffuse mixed interstitial alveolar lung opacities without pneumothorax. Cardi ac silhouette partially obscured without gross cardiomegaly. Remainder is stable. IMPRESSION: 1. Overall, no significant interval change compared with the exam done the day prior. LEM LIST Principal Problem: Malignant neoplasm of lower lobe of left lung (HCC) Active Problems: Coronary artery disease involving lower [place] coronary artery of [place] heart without angina p ectoris Essential hypertension Type 2 diabetes mellitus without complication (HCC) S/P drug eluting coronary stent placement QT prolongation Acute respiratory failure with hypoxia ([facility]) Volume overload ASSESSMENT & PLAN 1. Minimally elevated troponins, less than the threshold for acute myocardial infarction, l ikely related to severe hypoxemia 2. Acute hypoxemic respiratory failure. Resolved. 3. Coronary artery disease status post prior stents proximal left anterior descending arter y, LAD stent thrombosis/ ST elevation myocardial infarction with the balloon angioplasty at [place] in February 13, 2017. Currently stable without angina. 4. Left lower lobe lung adenocarcinoma status post VATS assisted left lower lobectomy 5. Bilateral lung opacities, currently on antibiotics for possible healthcare associated pn eumonia. 6. Volume overload/pulmonary edema 7. Hypertension currently controlled Patient continued to have pleuritic chest pain, likely related to lung surgery. No angina. No evidence of acute coronary syndrome. No ischemic ECG changes on ECG today or earlier ECGs. Normal left ventricular systolic func tion by echocardiogram. Had recieved Integrilin while off Plavix before surgery, and was restarted on Plavix immedi ately after surgery. Continue medical management for coronary artery disease with aspirin, Plavix, high-dose brigitte rvastatin, metoprolol Patient is significantly volume over loaded, weight increased by 7 kilograms since admissio n. Positive fluid balance of 4.2 L since admission. Persistent lung opacities, likely a combination of pneumonia and some pulmonary edema. Sign ificant lower extremity edema over the last 2 days. She received 1 dose of IV Lasix 40 mg early in the morning. We will change po Lasix to Lasix 40 mg IV bid Monitor volume status. Monitor renal function and electrolytes Patient is kyphotic by vancomycin, Levaquin and Zosyn for healthcare associated pneumonia. Has been improving and currently hypoxemia resolved. Saturating well on room air. Thank you for allowing me to participate in the care of this patient. Disposition: Code Status: Full Code Pilo Ocampo MD 06/30/2017 onversion T angel, Provider Unknown - 06/30/2017 10:15 AM PDTFormatting of this note might be diffe rent from the original. Pharmacy Note by Deb Majano RPH at 06/30/17 1015 Author: Deb Majano RPH Service: Pharmacy Author Type: Pharmacist Filed: 06/30/17 1015 Date of Service: 06/30/17 101 Status: Signed Indian Trader: Deb Majano RPH (Pharmacist) Clinical Pharmacy Note: Vancomycin Day 4 Scr = 0.6 WBC = 13.28 Estim CrCl = 134.5 ml/min Vanco Tr at 0939 this AM = 13.7 (15-20 mcg/ml) Dose was increased yesterday to Vanco 1750mg IV q 12h. Continue same regimen-will check another level after several More doses. Level is still below desired range. Pharmacist; DEB MAJANO 06/30/2017 10:14 AM Mary Chow PA-C - 06/30/2017 7:37 AM PDT Progress Notes by Mary George PA-C at 06/30/17 0768 Author: Mary George PA-C Service: Cardiac, Thoracic, and Vascular Surgery Author Type : Physician Carton Catcher - Certified Filed: 06/30/17929 Date of Service: 06/30/17736 Status: Attested Indian Trader: Mary George PA-C (Physician Carton Catcher - Certified) Cosigner: Nae Al MD at 07/01/17 0711 Attestation signed by Nae Al MD at 07/01/17 0736 I have examined Nancy Terrazas, reviewed the notes, assessments, and/or procedures perfor med by Mary George PA-C, I concur with her documentation of Nancy Terrazas. Cardiothoracic Surgery Progress Note Pt: Nancy Terrazas AGE/SEX: 46 y.o. female : 1970 ROOM: [address] [place] [address] ADMIT DATE: 06/18/2017 Hospital Day: LOS: 12 days Surgery/Procedure: 06/22/17 - VATS assisted left lower lobectomy - Mediastinal lymphadenectomy (LN stations 5,6,7,9, and 10) Post-Op Day: 9 Days Post-Op SUBJECTIVE: The patient is a 46 y.o. female with significant past medical history of CAD wi th multiple stents, HTN, DM, long history of tobacco use but states she quit about 8-9 weeks ago who presents as a direct admit for eventual left lower lobe surgery from the cardiothor [facility] surgery team. The patient had a biopsy done of the lung lesion on 04/25/17 and the patho logy showed well differentiated adeno CA. Patient was referred to cardiothoracic surgery and was evaluated. She underwent testing inc luding PFT and a cardiology follow up prior to her admission in preparation for surgery. Overnight ASSESSMENT: HD stable 2.5 L NC PROBLEM LIST Principal Problem: Malignant neoplasm of lower lobe of left lung (HCC) Active Problems: Coronary artery disease involving lower [place] coronary artery of lower [place] heart with angina pect monse (HCC) Essential hypertension Type 2 diabetes mellitus without complication (HCC) S/P drug eluting coronary stent placement QT prolongation Acute respiratory failure with hypoxia (HCC) OBJECTIVE: Vital Signs: BP 140/68 (BP Location: Left upper arm) | Pulse 92 | Temp 99 F (37.2 C) (Oral) | Res p 20 | Ht 1.651 m (5' 5") | Wt 96.2 kg (212 lb 1.3 oz) | SpO2 94% | ? No | BMI 35.29 kg/m Temp: [98 F (36.7 C)-99 F (37.2 C)] 99 F (37.2 C) (06/30 0406) BP: (99-140)/(58-68) 140/68 (06/30 405) Heart Rate: [92-105] 92 (06/30 405) Resp: [18-20] 20 (06/30 405) SpO2: [94 %-96 %] 94 % (06/30 405) PE: GENERAL: Pt up in chair, alert, awake NEURO: Grossly intact SKIN: Thoracoscopy incision dressing is C/D/I. Chest tube REMOVED incision C/D/I. No erythe ma, discharge, or warmth noted around the incision site. HEART: RRR/ST w/normal S1/S2. No murmur, rub, heave, or gallop noted. LUNGS: Lungs are CTAB w/o wheezing, crackles, or rhonchi. Dim bases ABDOMEN: Soft, nontender. BS present. DATA: Scheduled Medications aspirin 81 mg Oral Daily atorvastatin 80 mg Oral Nightly clopidogrel 75 mg Oral Daily docusate sodium 100 mg Oral BID Or docusate 100 mg Per OG Tube BID famotidine 20 mg Oral BID Or famotidine 20 mg Intravenous BID furosemide 20 mg Oral Daily heparin (porcine) 5000 unit/0.5mL 5,000 Units Subcutaneous 3 times per day insulin detemir 23 Units Subcutaneous Nightly insulin lispro (human) 2-8 Units Subcutaneous Nightly insulin lispro (human) 4-16 Units Subcutaneous TID AC insulin lispro (human) 6 Units Subcutaneous TID AC levofloxacin 500 mg Intravenous Q24H Lidocaine 2 patch Transdermal Daily piperacillin-tazobactam 3.375 g 3.375 g Intravenous Q8H pregabalin 75 mg Oral TID sennosides 5 mL Oral Nightly vancomycin 17 mg/kg Intravenous Q12H Continuous Infusions PRN Medications acetaminophen OR acetaminophen OR acetaminophen, albuterol, aluminum-magnesium hydr oxide-simethicone, clonazePAM, dextrose, dextrose, diazepam, LORazepam, magnesium hydroxide, magnesium sulfate OR magnesium sulfate OR magnesium sulfate, nitroGLYCERIN, nystati n, ondansetron OR ondansetron, oxyCODONE OR oxyCODONE OR [DISCONTINUED] oxyCODON E, petrolatum, potassium chloride in NS OR potassium chloride OR potassium chloride HOME MEDS: Prior to Admission medications Medication Sig Start Date End Date Taking? Authorizing Provider aspirin 81 MG tablet Take 81 mg by mouth daily. Last dose Saturday due to lung biopsy toda y Yes Historical Provider atorvastatin (LIPITOR) 40 MG tablet Take 1 tablet by mouth nightly. 03/13/17 03/13/18 Yes Mar y PRICE Babcock clopidogrel (PLAVIX) 75 MG tablet Take 1 tablet by mouth daily. 03/13/17 Yes PRICE Serrato furosemide (LASIX) 40 MG tablet Take 1 tablet by mouth daily. 03/13/17 03/13/18 Yes PRICE Silvestre albuterol (PROVENTIL HFA;VENTOLIN HFA) 108 (90 BASE) MCG/ACT inhaler Inhale 2 puffs into th e lungs every 4 (four) hours as needed for Wheezing. Historical Provider gemfibrozil (LOPID) 600 MG tablet Take 1 tablet by mouth 2 (two) times daily before meals. 03/13/17 03/13/18 PRICE Silvestre insulin aspart (NOVOLOG) 100 UNIT/ML injection Inject 45 Units into the skin 3 (three) time s daily before meals. With meals Historical Provider insulin detemir (LEVEMIR) 100 UNIT/ML injection Inject 60 Units into the skin 2 (two) times daily. Historical Provider isosorbide mononitrate (IMDUR) 60 MG 24 hr tablet Take 1 tablet by mouth daily. TO REPLACE IMDUR 30 MG 06/03/17 06/03/18 PRICE Silvestre losartan (COZAAR) 25 MG tablet Take 1 tablet by mouth daily. 03/13/17 PRICE Silvestre metoprolol (TOPROL-XL) 25 MG 24 hr tablet Take 1 tablet by mouth nightly. 03/13/17 03/13/18 PRICE Silvestre nitroGLYCERIN (NITROSTAT) 0.[address] 1 tablet under the tongue every 5 (five) m inutes as needed for Chest pain. 07/25/16 07/25/17 Pilo Ocampo MD potassium chloride (MICRO-K) 10 MEQ CR capsule Take 1 capsule by mouth daily. 03/13/17 PRICE Silvestre pregabalin (LYRICA) 75 MG capsule Take 75 mg by mouth 3 (three) times daily. Historical Provider LABS: Recent Labs Lab 06/30/1741706/29/1741006/28/17355 WBC 13.28* 12.85* 14.42* HGB 8.6* 8.7* 8.8* HCT 25.3* 25.8* 26.3* PLT 378 342 354 NEUTOPHILPCT 64.56 61.81 72.09 MONOPCT 8.57 9.37 8.23 Recent Labs Lab 06/30/1741706/29/1741006/28/17 2304 06/28/17 0356 06/25/17 0533 NA 143 144 -- -- 143 < > -- K 3.8 3.8 4.0 < > 3.5 < > -- CL 107 107 -- -- 108 < > -- CO2 27 27 -- -- 27 < > -- BUN 10 9 -- -- 15 < > -- CREATININE 0.6 0.6 -- -- 0.5 < > -- PROT -- -- -- -- -- -- 6.9 BILITOT -- -- -- -- -- -- 0.5 ALT -- -- -- -- -- -- 18 AST -- -- -- -- -- -- 81* < > = values in this interval not displayed. Phosphorus: Lab Results Component Value Date PHOS 2.3 06/27/2017 Invalid input(s): LABALBU Recent Labs Lab 06/30/1741706/29/17 1658 06/29/17410 MG 1.8 1.9 1.6* No results for input(s): AMYLASE in the last 168 hours. Recent Labs Lab 06/27/17 1209 06/26/17 0018 06/25/17 1650 BEART 3 0 1 No results for input(s): APTT, INR, PTT in the last 168 hours. No results for input(s): TSH, T3FREE, FREET4 in the last 168 hours. Recent Labs Lab 06/26/17 1500 06/26/17 0852 06/26/17 0304 CKTOTAL 62 78 99 TROPONINI 0.367* 0.415* 0.438* CKMBINDEX UNABLE TO CALCULATE 2.3 1.8 Current Labs: PT/INR: Lab Results Component Value Date INR 0.9 06/21/2017 HgBA1c: Lab Results Component Value Date HGBA1C 9.2 (H) 06/27/2017 LABGLYC 217 06/27/2017 PLAN: Likely aspiration pneumonia: appreciate Training And Development Director, ID and Pulmonary assistance. -Afebrile overnight and WBCs stable. BC no growth x2 days. On Vanco, Zosyn, Levaquin. Await ID recommendations for Abx. --CXR stable w/ unchanged left field opacities --On 2.5 L NC, wean oxygen as tolerated for sats >90%. Encourage IS and ambulation. --Had episode of chest pain early this morning. Anxiety component. Relieved with sublingual nitro and IV lasix. No ECG changes. Monitor. --Blood glucose elevated, will reconsult clinical trial educator for recommendations. Transfer to Cardiac Unit D/c Saturday if off oxygen and after abx regimen established. The patient has been seen and the plan discussed with the attending provider, Dr. Mikaela George PA-C 06/30/2017 7:37 AM onversion Transact ion, Provider Unknown - 06/29/2017 9:22 AM PDTFormatting of this note might be different fr om the original. Pharmacy Note by Deb Majano RPH at 06/29/17921 Author: Deb Majano RPH Service: Pharmacy Author Type: Pharmacist Filed: 06/29/17921 Date of Service: 06/29/17921 Status: Signed Indian Trader: Deb Majano RPH (Pharmacist) Clinical Pharmacy Note: Vancomycin Day 2 Scr = 0.6 WBC = 12.85 Estim CrCl = 134.5 ml/min Current dose Vanco 1500mg (16 mg/kg) IV q 12h. Vanco Tr prior to 5th dose is 8.3 (15-20 mcg/ml). Increase dose to Vanco 1750mg (18.7 mg/kg) IV q 12h With 1st dose at 0930 this AM. Will recheck level prior to 3rd dose. Goal Tr 15-20 mcg/ml. INDICATION: Fever of Unknown Origin Secondary to Suspected Infection Pharmacist; DEB MAJANO 06/29/2017 9:21 AM Mary Chow PA-C - 06/29/2017 8:33 AM PDT Progress Notes by Mary George PA-C at 06/29/17 0833 Author: Mary George PA-C Service: Cardiac, Thoracic, and Vascular Surgery Author Type : Physician Carton Catcher - Certified Filed: 06/29/17 1121 Date of Service: 06/29/17832 Status: Attested Addendum Indian Trader: Mary George PA-C (Physician Carton Catcher - Certified) Related Notes: Original Note by Mary George PA-C (Physician Carton Catcher - Certified) eugene ed at 06/29/17 1119 Cosigner: Nae Al MD at 07/01/17 0709 Attestation signed by Nae Al MD at 07/01/17 0709 I have examined Nancy Terrazas, reviewed the notes, assessments, and/or procedures perfor med by Mary George PA-C, I concur with her documentation of Nancy Terrazas. Cardiothoracic Surgery Progress Note Pt: Nancy Terrazas AGE/SEX: 46 y.o. female : 1970 ROOM: 91/91- ADMIT DATE: 06/18/2017 Hospital Day: LOS: 11 days Surgery/Procedure: 06/22/17 - VATS assisted left lower lobectomy - Mediastinal lymphadenectomy (LN stations 5,6,7,9, and 10) Post-Op Day: 8 Days Post-Op SUBJECTIVE: The patient is a 46 y.o. female with significant past medical history of CAD wi th multiple stents, HTN, DM, long history of tobacco use but states she quit about 8-9 weeks ago who presents as a direct admit [facility]. The patient had a biopsy done of the lung lesion on 04/25/17 and the patho logy showed well differentiated adeno CA. Patient was referred to cardiothoracic surgery and was evaluated. She underwent testing [facility] PFT and a cardiology follow up prior to her admission in preparation for surgery. Overnight ASSESSMENT: HD stable 3 L NC, no SOB PROBLEM LIST Principal Problem: Malignant neoplasm of lower lobe of left lung (HCC) Active Problems: Coronary artery disease involving lower [place] coronary artery of lower [place] heart with angina pect monse (HCC) Essential hypertension Type 2 diabetes mellitus without complication (HCC) S/P drug eluting coronary stent placement QT prolongation Acute respiratory failure with hypoxia (HCC) OBJECTIVE: Vital Signs: BP 115/59 (BP Location: Right upper arm) | Pulse 106 | Temp 99 F (37.2 C) (Oral) | R azael 18 | Ht 1.651 m (5' 5") | Wt 96.2 kg (212 lb 1.3 oz) | SpO2 95% | ? No | BMI 35.29 kg/m Temp: [97 F (36.1 C)-99 F (37.2 C)] 99 F (37.2 C) (06/29 728) BP: (87-119)/(55-75) 115/59 (06/29 728) Heart Rate: [87-106] 106 (06/29 728) Resp: [18-22] 18 (06/29 728) SpO2: [92 %-100 %] 95 % (06/29 728) PE: GENERAL: Pt resting in bed, alert, awake NEURO: Grossly intact SKIN: Thoracoscopy incision dressing is C/D/I. Chest tube REMOVED incision C/D/I. No erythe ma, edema/inflammation, discharge, or warmth noted around the incision site. HEART: RRR/ST w/normal S1/S2. No murmur, rub, heave, or gallop noted. LUNGS: Lungs are CTA w/o wheezing, crackles, or rhonchi. Dim bases. L>R ABDOMEN: Soft, rounded, nontender. BS active. DATA: Scheduled Medications aspirin 81 mg Oral Daily atorvastatin 80 mg Oral Nightly clopidogrel 75 mg Oral Daily docusate sodium 100 mg Oral BID Or docusate 100 mg Per OG Tube BID famotidine 20 mg Oral BID Or famotidine 20 mg Intravenous BID furosemide 20 mg Oral Daily heparin (porcine) 5000 unit/0.5mL 5,000 Units Subcutaneous 3 times per day insulin detemir 23 Units Subcutaneous Nightly insulin lispro (human) 2-8 Units Subcutaneous Nightly insulin lispro (human) 4-16 Units Subcutaneous TID AC insulin lispro (human) 6 Units Subcutaneous TID AC levofloxacin 500 mg Intravenous Q24H Lidocaine 2 patch Transdermal Daily piperacillin-tazobactam 3.375 g 3.375 g Intravenous Q8H pregabalin 75 mg Oral TID sennosides 5 mL Oral Nightly vancomycin 17 mg/kg Intravenous Q12H Continuous Infusions PRN Medications acetaminophen OR acetaminophen OR acetaminophen, albuterol, aluminum-magnesium hydr oxide-simethicone, clonazePAM, dextrose, dextrose, diazepam, LORazepam, magnesium hydroxide, magnesium sulfate OR magnesium sulfate OR magnesium sulfate, morphine OR morphi ne OR morphine, nitroGLYCERIN, nystatin, ondansetron OR ondansetron, oxyCODONE OR* * oxyCODONE OR [DISCONTINUED] oxyCODONE, petrolatum, potassium chloride in NS OR pot assium chloride OR potassium chloride HOME MEDS: Prior to Admission medications Medication Sig Start Date End Date Taking? Authorizing Provider aspirin 81 MG tablet Take 81 mg by mouth daily. Last dose Saturday due to lung biopsy toda y Yes Historical Provider atorvastatin (LIPITOR) 40 MG tablet Take 1 tablet by mouth nightly. 03/13/17 03/13/18 Yes Christina mayer PRICE Babcock clopidogrel (PLAVIX) 75 MG tablet Take 1 tablet by mouth daily. 03/13/17 Yes PRICE Serrato furosemide (LASIX) 40 MG tablet Take 1 tablet by mouth daily. 03/13/17 03/13/18 Yes PRICE Silvestre albuterol (PROVENTIL HFA;VENTOLIN HFA) 108 (90 BASE) MCG/ACT inhaler Inhale 2 puffs into th e lungs every 4 (four) hours as needed for Wheezing. Historical Provider gemfibrozil (LOPID) 600 MG tablet Take 1 tablet by mouth 2 (two) times daily before meals. 03/13/17 03/13/18 PRICE Silvestre insulin aspart (NOVOLOG) 100 UNIT/ML injection Inject 45 Units into the skin 3 (three) time s daily before meals. With meals Historical Provider insulin detemir (LEVEMIR) 100 UNIT/ML injection Inject 60 Units into the skin 2 (two) times daily. Historical Provider isosorbide mononitrate (IMDUR) 60 MG 24 hr tablet Take 1 tablet by mouth daily. TO REPLACE IMDUR 30 MG 06/03/17 06/03/18 PRICE Silvestre losartan (COZAAR) 25 MG tablet Take 1 tablet by mouth daily. 03/13/17 PRICE Silvestre metoprolol (TOPROL-XL) 25 MG 24 hr tablet Take 1 tablet by mouth nightly. 03/13/17 03/13/18 PRICE Silvestre nitroGLYCERIN (NITROSTAT) 0.[address] 1 tablet under the tongue every 5 (five) m inutes as needed for Chest pain. 07/25/16 07/25/17 Pilo Ocampo MD potassium chloride (MICRO-K) 10 MEQ CR capsule Take 1 capsule by mouth daily. 03/13/17 PRICE Silvestre pregabalin (LYRICA) 75 MG capsule Take 75 mg by mouth 3 (three) times daily. Historical Provider LABS: Recent Labs Lab 06/29/1741006/28/1735506/27/17 0345 WBC 12.85* 14.42* 19.42* HGB 8.7* 8.8* 8.9* HCT 25.8* 26.3* 26.0* PLT 342 354 404* NEUTOPHILPCT 61.81 72.09 69.49 MONOPCT 9.37 8.23 8.64 Recent Labs Lab 06/29/17 0411 06/28/17 2304 06/28/17 1634 06/28/17 0356 06/27/17 0345 06/25/17 0533 NA 144 -- -- -- 143 -- 142 < > -- K 3.8 4.0 3.7 < > 3.5 < > 3.3* < > -- CL 107 -- -- -- 108 -- 106 < > -- CO2 27 -- -- -- 27 -- 29 < > -- BUN 9 -- -- -- 15 -- 16 < > -- CREATININE 0.6 -- -- -- 0.5 -- 0.5 < > -- PROT -- -- -- -- -- -- -- -- 6.9 BILITOT -- -- -- -- -- -- -- -- 0.5 ALT -- -- -- -- -- -- -- -- 18 AST -- -- -- -- -- -- -- -- 81* < > = values in this interval not displayed. Phosphorus: Lab Results Component Value Date PHOS 2.3 06/27/2017 Invalid input(s): LABALBU Recent Labs Lab 06/29/17 0411 06/28/17 0356 06/28/17 0050 MG 1.6* 1.7 1.7 No results for input(s): AMYLASE in the last 168 hours. Recent Labs Lab 06/27/17 1209 06/26/17 0018 06/25/17 1650 BEART 3 0 1 No results for input(s): APTT, INR, PTT in the last 168 hours. No results for input(s): TSH, T3FREE, FREET4 in the last 168 hours. Recent Labs Lab 06/26/17 1500 06/26/17 0852 06/26/17 0304 CKTOTAL 62 78 99 TROPONINI 0.367* 0.415* 0.438* CKMBINDEX UNABLE TO CALCULATE 2.3 1.8 Current Labs: PT/INR: Lab Results Component Value Date INR 0.9 06/21/2017 HgBA1c: Lab Results Component Value Date HGBA1C 9.2 (H) 06/27/2017 LABGLYC 217 06/27/2017 PLAN: Likely aspiration pneumonia: appreciate Training And Development Director, ID and Pulmonary assistance. -Afebrile overnight and WBCs trending down this AM. BC no growth x2 days. On Vanco, Zosyn, Levaquin. Await ID recommendations for Abx. --On 3 L NC, wean oxygen as tolerated for sats >90%. Encourage IS and ambulation. --replace Mg Transfer to Cardiac Unit D/c Saturday or Saturday after abx regimen established. The patient has been seen and the plan discussed with the attending provider, Dr. Mikaela George PA-C 06/29/2017 8:33 AM onversion Transacti on, Provider Unknown - 06/28/2017 5:45 PM PDTFormatting of this note might be different fro m the original. Progress Notes by Ale Doan at 06/28/17 4121 Author: Ale Doan Service: Specialist Author Type: Filed: 06/28/17 0543 Date of Service: 06/28/171744 Status: Signed Indian Trader: Ale Doan () CP visit for this 46 yr old fe with dx of lung CA. Nancy's daughter Kelly at bedside. Cathie conde recounts the ups and downs of her stay her at [facility]. States there were times she be lieved she would . With exploring those feelings with her she identifies that her daught er and other family gave her strength to go on. Currently she "can see a light at the end of the tunnel" which represents life. Nancy is looking ahead with hopes to go home in a cou ple of days. Time spent exploring the feelings Nancy has had with having to be intubated, fear of dying and what her hope is like now. Time spent in active compassionate listening, supportive presence and validation of feelings. Appreciate of CP visit onver mayank Transaction, Provider Unknown - 06/28/2017 2:06 PM PDT Progress Notes by Erasto Alexander RD at 06/28/17 1404 Author: Erasto Alexander RD Service: (none) Author Type: Registered Dietitian Filed: 06/28/17 0261 Date of Service: 06/28/17 1406 Status: Signed Indian Trader: Erasto Alexander RD (Registered Dietitian) 06/28/17 1154 Subjective Timepoint Follow up Pt c/o H risk follow up. Pt on nasal cannula, reports that her appetite is decreased but an ticipates it will improve. Pt is POD # 7 left lower lobectomy. Reported by Patient Fluid / Beverage Intake Oral Fluids Amount Drinking fluids ad tg. Liquid Meal Replacement or Supplement Pt not interested in oral nutrition supplements at th is time as she anticipates her oral inake improving but is aware she can have them as desire d if needed. Food Intake Amount of Food Pt ate 100% of her breakfast this morning, had a breakfast burrito and yogur t. Type of Food / Meals Cardiac, diabetic maintenance. Nutrition-Focused Physical Findings Digestive System (Mouth to Rectum) CAN MAKER cleared pt for regular textures/thins this morning. Anthropometrics Weight change Wt is up 6.9 kg since admit. According to I/O's pt is approx + 3.3 L of fluid , on lasix. Biochemical data, medical tests, and procedures reviewed Biochemical data, medical tests, and procedures reviewed BG variable 100s. Recommendations Recommended energy needs Continue cardiac, diabetic diet as ordered. Encourage high protein , nutrient dense meals. Oral supplements can be made available if needed. Will continue to f ollow per protocol . Nutritional Risk Nutritional risk Low / moderate Follow up date 07/04/[address] ios Camilo PA - 06/28/2017 10:24 AM PDTFormatting of this note might be different fro m the original. Progress Notes by Rios Camilo PA-C at 06/28/17 1024 Author: Rios Camilo PA-C Service: Cardiac, Thoracic, and Vascular Surgery Author Ty pe: Physician Carton Catcher - Certified Filed: 06/28/17 1028 Date of Service: 06/28/17 1024 Status: Attested Indian Trader: Rios Camilo PA-C (Physician Carton Catcher - Certified) Cosigner: Rafael downing MD at 06/28/17 1139 Attestation signed by Rafael Wade MD at 06/28/17 1139 I have reviewed the note below, personally reviewed the available laboratory and imaging st udies and examined the patient. I agree with the assessment and plan mentioned below. Electronically signed by: Rafael Wade, 06/28/2017 11:39 AM Cardiothoracic Surgery Progress Note Pt: Nancy Terrazas AGE/SEX: 46 y.o. female : 1970 [id number] 1 ADMIT DATE: 06/18/2017 Hospital Day: LOS: 10 days Surgery/Procedure: 06/22/17 - VATS assisted left lower lobectomy - Mediastinal lymphadenectomy (LN stations 5,6,7,9, and 10) Post-Op Day: 7 Days Post-Op SUBJECTIVE: The patient is a 46 y.o. female with significant past medical history of CAD wi th multiple stents, HTN, DM, long history of tobacco use but states she quit about 8-9 weeks ago who presents as a direct admit for eventual left lower lobe surgery from the [facility] team. The patient had a biopsy done of the lung lesion on 04/25/17 and the patho logy showed well differentiated adeno CA. Patient was referred to cardiothoracic surgery and was evaluated. She underwent testing inc luding PFT and a cardiology follow up prior to her admission in preparation for surgery. Overnight ASSESSMENT: HD stable, not requiring pressors after extubation 2L NC, no SOB PROBLEM LIST Principal Problem: Malignant neoplasm of lower lobe of left lung (HCC) Active Problems: Coronary artery disease involving lower [place] coronary artery of [place] heart with angina pect monse (HCC) Essential hypertension Type 2 diabetes mellitus without complication (HCC) S/P drug eluting coronary stent placement QT prolongation Acute respiratory failure with hypoxia (HCC) OBJECTIVE: Vital Signs: BP 107/57 | Pulse 92 | Temp 97.1 F (36.2 C) (Oral) | Resp 22 | Ht 1.651 m (5' 5") | Wt 96.2 kg (212 lb 1.3 oz) | SpO2 93% | ? No | BMI 35.29 kg/m Temp: [97.1 F (36.2 C)-98.2 F (36.8 C)] 97.1 F (36.2 C) (06/28 0800) BP: (80-136)/(51-76) 107/57 (06/28 1000) Heart Rate: [62-97] 92 (06/28 1000) Resp: [20-24] 22 (06/28 0800) SpO2: [89 %-98 %] 93 % (06/28 1000) Weight: [96.2 kg (212 lb 1.3 oz)] 96.2 kg (212 lb 1.3 oz) (06/28 0459) FiO2 : [30 %] 30 % (06/27 1600) PE: GENERAL: Pt resting in bed, intubated, sedated NEURO: sedated, moves all extremities SKIN: Thoracoscopy incision dressing is C/D/I. Chest tube REMOVED incision C/D/I. No erythe ma, edema/inflammation, discharge, or warmth noted around the incision site. HEART: RRR/ST w/normal S1/S2. No murmur, rub, heave, or gallop noted. LUNGS: Lungs are CTA w/o wheezing, crackles, or rhonchi. Dim bases. L>R ABDOMEN: Soft, rounded, nontender. BS active. No masses or organomegaly noted. DATA: Scheduled Medications aspirin 81 mg Oral Daily atorvastatin 80 mg Oral Nightly clopidogrel 75 mg Oral Daily docusate sodium 100 mg Oral BID Or docusate 100 mg Per OG Tube BID famotidine 20 mg Oral BID Or famotidine 20 mg Intravenous BID furosemide 20 mg Oral Daily heparin (porcine) 5000 unit/0.5mL 5,000 Units Subcutaneous 3 times per day insulin detemir 23 Units Subcutaneous Nightly insulin lispro (human) 2-8 Units Subcutaneous Nightly insulin lispro (human) 4-16 Units Subcutaneous TID AC insulin lispro (human) 6 Units Subcutaneous TID AC levofloxacin 500 mg Intravenous Q24H Lidocaine 2 patch Transdermal Daily piperacillin-tazobactam 3.375 g 3.375 g Intravenous Q8H pregabalin 75 mg Oral TID sennosides 5 mL Oral Nightly vancomycin 17 mg/kg Intravenous Q12H Continuous Infusions PRN Medications acetaminophen OR acetaminophen OR acetaminophen, albuterol, aluminum-magnesium hydr oxide-simethicone, clonazePAM, dextrose, dextrose, diazepam, LORazepam, magnesium hydroxide, magnesium sulfate OR magnesium sulfate OR magnesium sulfate, morphine OR morphi ne OR morphine, nitroGLYCERIN, nystatin, ondansetron OR ondansetron, oxyCODONE OR* * oxyCODONE OR [DISCONTINUED] oxyCODONE, petrolatum, potassium chloride OR potassium chloride OR potassium chloride HOME MEDS: Prior to Admission medications Medication Sig Start Date End Date Taking? Authorizing Provider aspirin 81 MG tablet Take 81 mg by mouth daily. Last dose Saturday due to lung biopsy toda y Yes Historical Provider atorvastatin (LIPITOR) 40 MG tablet Take 1 tablet by mouth nightly. 03/13/17 03/13/18 Yes Mar y PRICE Babcock clopidogrel (PLAVIX) 75 MG tablet Take 1 tablet by mouth daily. 03/13/17 Yes PRICE Serrato furosemide (LASIX) 40 MG tablet Take 1 tablet by mouth daily. 03/13/17 03/13/18 Yes PRICE Silvestre albuterol (PROVENTIL HFA;VENTOLIN HFA) 108 (90 BASE) MCG/ACT inhaler Inhale 2 puffs into th e lungs every 4 (four) hours as needed for Wheezing. Historical Provider gemfibrozil (LOPID) 600 MG tablet Take 1 tablet by mouth 2 (two) times daily before meals. 03/13/17 03/13/18 PIRCE Silvestre insulin aspart (NOVOLOG) 100 UNIT/ML injection Inject 45 Units into the skin 3 (three) time s daily before meals. With meals Historical Provider insulin detemir (LEVEMIR) 100 UNIT/ML injection Inject 60 Units into the skin 2 (two) times daily. Historical Provider isosorbide mononitrate (IMDUR) 60 MG 24 hr tablet Take 1 tablet by mouth daily. TO REPLACE IMDUR 30 MG 06/03/17 06/03/18 PRICE Silvestre losartan (COZAAR) 25 MG tablet Take 1 tablet by mouth daily. 03/13/17 PRICE Silvestre metoprolol (TOPROL-XL) 25 MG 24 hr tablet Take 1 tablet by mouth nightly. 03/13/17 03/13/18 PRICE Silvestre nitroGLYCERIN (NITROSTAT) 0.[address] 1 tablet under the tongue every 5 (five) m inutes as needed for Chest pain. 07/25/16 07/25/17 Pilo Ocampo MD potassium chloride (MICRO-K) 10 MEQ CR capsule Take 1 capsule by mouth daily. 03/13/17 PRICE Silvestre pregabalin (LYRICA) 75 MG capsule Take 75 mg by mouth 3 (three) times daily. Historical Provider LABS: Recent Labs Lab 06/28/17 03506/27/17 0345 06/26/17 1820 WBC 14.42* 19.42* 15.60* HGB 8.8* 8.9* 8.7* HCT 26.3* 26.0* 27.0* PLT 354 404* 300 NEUTOPHILPCT 72.09 69.49 76.34 MONOPCT 8.23 8.64 7.88 Recent Labs Lab 06/28/17 0356 06/28/17 0050 06/27/17 1622 06/27/17 0345 06/26/17 0305 06/25/17 0533 NA 143 -- -- 142 142 -- -- K 3.5 3.3* 3.2* 3.3* 4.0 < > -- CL 108 -- -- 106 108 -- -- CO2 27 -- -- 29 27 -- -- BUN 15 -- -- 16 12 -- -- CREATININE 0.5 -- -- 0.5 0.6 -- -- PROT -- -- -- -- -- -- 6.9 BILITOT -- -- -- -- -- -- 0.5 ALT -- -- -- -- -- -- 18 AST -- -- -- -- -- -- 81* < > = values in this interval not displayed. Phosphorus: Lab Results Component Value Date PHOS 2.3 06/27/2017 Invalid input(s): LABALBU Recent Labs Lab 06/28/17 0356 06/28/17 0050 06/27/17 0345 MG 1.7 1.7 2.1 No results for input(s): AMYLASE in the last 168 hours. Recent Labs Lab 06/27/17 1209 06/26/17 0018 06/25/17 1650 BEART 3 0 1 No results for input(s): APTT, INR, PTT in the last 168 hours. No results for input(s): TSH, T3FREE, FREET4 in the last 168 hours. Recent Labs Lab 06/26/17 1500 06/26/17 0852 06/26/17 0304 CKTOTAL 62 78 99 TROPONINI 0.367* 0.415* 0.438* CKMBINDEX UNABLE TO CALCULATE 2.3 1.8 Current Labs: PT/INR: Lab Results Component Value Date INR 0.9 06/21/2017 HgBA1c: Lab Results Component Value Date HGBA1C 9.2 (H) 06/27/2017 LABGLYC 217 06/27/2017 PLAN: Likely aspiration pneumonia: appreciate Training And Development Director, ID and Pulmonary assistance. -Afebrile overnight and WBCs trending down this AM. BC no growth 2 days. Await ID recommend ations for Abx Transfer to Cardiac Unit The patient has been seen and the plan discussed with the attending provider, RAMOS Blanchard-C 06/28/2017 10:24 AM Fuad Mart MD - 06/28/2017 8:42 AM PDT Progress Notes by Fuad Patel MD at 06/28/17841 Author: Fuad Patel MD Service: Training And Development Director Author Type: Physician Filed: 06/28/17 0945 Date of Service: 06/28/17841 Status: Signed Indian Trader: Fuad Patel MD (Physician) [facility] Service: Training And Development Director Progress Note Nancy Terrazas 46 y.o. 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 She was admitted and underwent VATS assisted Left lower lobectomy on 06/21/17. She was recovering well on the cardiac unit but she became more hypoxic overnight and went from being on 1LPM NC to 10 L then to BIPAP this am. CXR with diffuse b/l patchy opacities. She also started having CP that persisted for about 4 hours. CP was relieved by SL nitro x1 and morphine. ICU Timeline: 06/25- transferred to ICU for acute hypoxemic respiratory failure on BIPAP. ABG showed si gnificant respiratory alkalosis. Continued to deteriorate and had to be intubated overnight. 06-26: repeat echo for st changes on tele strips, pt without chest pain though.pt had kyleigh st pain during previous episodes of CAD. 06-27: extubated Events Overnight: on minimal oxygen, used cpap at night, surgical site pain issues SCHEDULED MEDICATIONS aspirin 81 mg Oral Daily atorvastatin 80 mg Oral Nightly clopidogrel 75 mg Oral Daily docusate sodium 100 mg Oral BID Or docusate 100 mg Per OG Tube BID famotidine 20 mg Oral BID Or famotidine 20 mg Intravenous BID heparin (porcine) 5000 unit/0.5mL 5,000 Units Subcutaneous 3 times per day insulin detemir 23 Units Subcutaneous Nightly insulin lispro (human) 2-8 Units Subcutaneous Nightly insulin lispro (human) 4-16 Units Subcutaneous TID AC insulin lispro (human) 6 Units Subcutaneous TID AC levofloxacin 500 mg Intravenous Q24H Lidocaine 2 patch Transdermal Daily piperacillin-tazobactam 3.375 g 3.375 g Intravenous Q8H sennosides 5 mL Oral Nightly vancomycin 17 mg/kg Intravenous Q12H CONTINUOUS INFUSIONS dexmedetomidine in NS 0.2 mcg/kg/hr (06/27/17 0636) norepinephrine Stopped (06/27/17 1617) OBJECTIVE VITAL SIGNS Temp: [97.6 F (36.4 C)-98.7 F (37.1 C)] 97.6 F (36.4 C) Heart Rate: [60-97] 86 Resp: [20-24] 20 BP: (80-136)/(51-76) 99/67 FiO2 : [30 %] 30 % Intake/Output Summary (Last 24 hours) at 06/28/17 0842 Last data filed at 06/28/17 0618 Gross per 24 hour Intake 1887 ml Output 1344 ml Net 543 ml EXAM GEN: in bed comfortable, on 2 liters canula talking in full sentences. NAD NEURO: PERRLA, EOMI, no facial asymmetry, moves all extremities well, HEENT: sclerae clear, nonicteric, oral mmm, pink NECK: supple, trachea midline CV: RRR, distant, no murmur, rub or gallop, peripheral pulses palpable, cap refill brisk LUNGS: cta bilat, no w. ABD:obese, soft, nondistended, nontender to palpation EXTR: no edema, clubbing or cyanosis SKIN: warm, dry, no rash or mottling LINES/TUBES: PIVs DATA Recent Labs Lab 06/28/17 0356 06/27/17 0345 06/26/17 1820 06/21/17 1714 WBC 14.42* 19.42* 15.60* < > 33.02* RBC 2.99* 2.95* 3.04* < > 5.18* HGB 8.8* 8.9* 8.7* < > 14.8 HCT 26.3* 26.0* 27.0* < > 46.2* MCV 88.1 88.1 88.6 < > 89.2 MCH 29.5 30.3 28.6 < > 28.6 MCHC 33.5 34.4 32.3 < > 32.1 RDW 42.4 42.9 44.2 < > 42.4 PLT 354 404* 300 < > 318 MPV 8.5 8.6 8.8 < > 9.5 BANDSABS -- -- -- -- 1.98* NEUTROABS 10.40* 13.50* 11.91* < > -- LYMPHSABS 2.03 3.38 2.02 < > -- MONOSABS 1.19* 1.68* 1.23* < > -- BASOSABS 0.05 0.12* 0.05 < > -- EOSABS 0.76* 0.74* 0.39 < > -- MORPH -- -- -- -- NORMAL < > = values in this interval not displayed. Recent Labs Lab 06/28/17 0356 06/28/17 0050 06/27/17 1622 06/27/17 0345 06/26/17 0305 06/25/17 0533 NA 143 -- -- 142 142 -- -- K 3.5 3.3* 3.2* 3.3* 4.0 < > -- CL 108 -- -- 106 108 -- -- CO2 27 -- -- 29 27 -- -- ANIONGAP 12 -- -- 10 11 -- -- GLUF 138* -- -- 131* 222* -- -- BUN 15 -- -- 16 12 -- -- CREATININE 0.5 -- -- 0.5 0.6 -- -- BCR 30 -- -- 32 20 -- -- CA 8.4* -- -- 8.6 8.2* -- -- ALB -- -- -- -- -- -- 1.5* PROT -- -- -- -- -- -- 6.9 BILITOT -- -- -- -- -- -- 0.5 ALT -- -- -- -- -- -- 18 AST -- -- -- -- -- -- 81* EGFR >60 -- -- >60 >60 -- -- PHOS -- -- -- 2.3 -- -- -- MG 1.7 1.7 -- 2.1 2.1 -- -- < > = values in this interval not displayed. No results for input(s): INR in the last 168 hours. IMAGING X-ray Chest 1 View Result Date: 06/26/2017 1. Smaller left apical pneumothorax, as above. This was relayed to the requesting health c are provider on the date and time of dictation. 2. Unchanged left support lines and tubes, as above. 3. Unchanged evidence of left upper lobectomy. 4. Unchanged nonspecific bilatera l airspace disease, somewhat diffuse. Electronically signed by Griffin Begum MD on 018 12:14 PM X-ray Chest 1 View Result Date: 06/26/2017 1. Tubes and lines in expected position. 2. Bilateral unchanged diffuse airspace disease, c onsistent with pulmonary edema versus infection. 3. Possible small left apical pneumothorax. Follow-up on subsequent exams. Echo Cardiac Adult Limited Result Date: 06/25/2017 1. This was a technically difficult study with suboptimal views. 2. Left ventricular systol ic function is hyperdynamic with an estimated EF of >70%. PROBLEM LIST Principal Problem: Malignant neoplasm of lower lobe of left lung (HCC) Active Problems: Coronary artery disease involving lower [place] coronary artery of [place] heart with angina pect monse (HCC) Essential hypertension Type 2 diabetes mellitus without complication (HCC) S/P drug eluting coronary stent placement QT prolongation Acute respiratory failure with hypoxia (HCC) Resolved Problems: * No resolved hospital problems. * ASSESSMENT & PLAN NEURO: No issues CV: CAD with stents: cont ASA, Plavix, Lipitor. ? St elevation on ecg but no chest pain, pt had chest pains in the past Dr. Ocampo consu lted. No active issues. Repeat ECHO(06/25) was technically difficult study. EF >70%. Repeat echo 06-27 without per icardial effusion. Severely prolonged QTc: 695. Resolved. PULM: Acute hypoxemic respiratory failure: likely from Hosp acquired infection/pneumonia with fever and leukocytosis combined with some pulmonary edema that could be negative pressure in origin. Will diurese, cover with abx, extubated 06-28 Pulmonology consulted, Dr. Bolton following. GI/NUTRITION: Swallow eval RENAL/LYTES: Normal renal function, cont to follow. Good uo with lasix, restart home lasix at half dose now. ID: As above. Empiric Zosyn and Levaquin to cover for possible HAP. vanco added.Sputum cx pe nding. Blood cxs sent b/c of fever. Procal low. Resp Filmarray neg. Cont abx for now until f inal cultures result. HEME: Anemia: H/H has drifted down from admission. No e/o bleeding. Some may have been with ch est tubes still in place. Possibly worsened d/t infection. Cont to follow. ENDO: No issues. MUSC/SKIN: OOB as tolerates. PT/OT Pain control with oxycodone prn, morphine also ordered PROPHYLAXIS: Stress ulcer prophylaxis: Pepcid DVT prophylaxis: SCDs, sq heparin Disposition: ICU plan above. D/w dr wade. Code Status: Full Code *Please bill 35 minutes of critical care time spent evaluating the patient, reviewing the d gt and formulating a plan exclusive of all other procedures. FUAD PATEL MD 06/28/2017 Fuad Perry MD - 06/27/2017 9:43 AM PDTFormatting of this note might be different from the origi nal. Progress Notes by Fuad Patel MD at 06/27/17942 Author: Fuad Patel MD Service: Training And Development Director Author Type: Physician Filed: 06/27/1751 Date of Service: 06/27/17942 Status: Signed Indian Trader: Fuad Patel MD (Physician) [facility] Service: Training And Development Director Progress Note Nancy Terrazas 46 y.o. 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 She was admitted and underwent VATS assisted Left lower lobectomy on 06/21/17. She was recovering well on the cardiac unit but she became more hypoxic overnight and went from being on 1LPM NC to 10 L then to BIPAP this am. CXR with diffuse b/l patchy opacities. She also started having CP that persisted for about 4 hours. CP was relieved by SL nitro x1 and morphine. ICU Timeline: 06/25- transferred to ICU for acute hypoxemic respiratory failure on BIPAP. ABG showed si gnificant respiratory alkalosis. Continued to deteriorate and had to be intubated overnight. 06-26: repeat echo for st changes on tele strips, pt without chest pain though.pt had kyleigh st pain during previous episodes of CAD. Events Overnight: Remains intubated. More alert, dex started for delirium SCHEDULED MEDICATIONS aspirin 81 mg Oral Daily atorvastatin 80 mg Oral Nightly clopidogrel 75 mg Oral Daily docusate sodium 100 mg Oral BID Or docusate 100 mg Per OG Tube BID famotidine 20 mg Oral BID Or famotidine 20 mg Intravenous BID heparin (porcine) 5000 unit/0.5mL 5,000 Units Subcutaneous 3 times per day levofloxacin 500 mg Intravenous Q24H Lidocaine 2 patch Transdermal Daily midazolam 1 mg Intravenous Once piperacillin-tazobactam 3.375 g 3.375 g Intravenous Q8H sennosides 5 mL Oral Nightly vancomycin 17 mg/kg Intravenous Q12H CONTINUOUS INFUSIONS dexmedetomidine in NS 0.2 mcg/kg/hr (06/27/17635) dextrose 30 mL/hr at 06/27/17 0416 fentaNYL in NS 5 mcg/mL Stopped (06/27/17635) insulin regular 1 unit/mL 2.8 Units/hr (06/27/17 0551) norepinephrine 6 mcg/min (06/27/17 0732) sodium chloride (IV) OBJECTIVE VITAL SIGNS Temp: [98.4 F (36.9 C)-101.8 F (38.8 C)] 98.7 F (37.1 C) Heart Rate: [60-97] 61 Resp: [18-30] 18 BP: (71-136)/(38-76) 103/64 FiO2 : [30 %-40 %] 30 % Intake/Output Summary (Last 24 hours) at 06/27/17 0943 Last data filed at 06/27/17 0600 Gross per 24 hour Intake 2729.5 ml Output 1455 ml Net 1274.5 ml EXAM GEN: intubated, alert on sedation writing notes, NAD NEURO: PERRLA, EOMI, no facial asymmetry, moves all extremities well, HEENT: sclerae clear, nonicteric, oral mmm, pink, oral ETT, OGT NECK: supple, trachea midline CV: RRR, distant, no murmur, rub or gallop, peripheral pulses palpable, cap refill brisk LUNGS: coarse rhonchi throughout improving with the cough, no wheezing, rales ABD: soft, nondistended, nontender to palpation EXTR: no edema, clubbing or cyanosis SKIN: warm, dry, no rash or mottling LINES/TUBES: PIVs DATA Recent Labs Lab 06/27/17 0345 06/26/17 1820 06/26/17 0305 06/21/17 1714 WBC 19.42* 15.60* 15.71* < > 33.02* RBC 2.95* 3.04* 3.14* < > 5.18* HGB 8.9* 8.7* 9.2* < > 14.8 HCT 26.0* 27.0* 27.7* < > 46.2* MCV 88.1 88.6 88.3 < > 89.2 MCH 30.3 28.6 29.5 < > 28.6 MCHC 34.4 32.3 33.4 < > 32.1 RDW 42.9 44.2 43.3 < > 42.4 PLT 404* 300 290 < > 318 MPV 8.6 8.8 9.1 < > 9.5 BANDSABS -- -- -- -- 1.98* NEUTROABS 13.50* 11.91* 12.02* < > -- LYMPHSABS 3.38 2.02 2.11 < > -- MONOSABS 1.68* 1.23* 1.31* < > -- BASOSABS 0.12* 0.05 0.04 < > -- EOSABS 0.74* 0.39 0.23 < > -- MORPH -- -- -- -- NORMAL < > = values in this interval not displayed. Recent Labs Lab 06/27/17 0345 06/26/17 0305 06/26/17 0304 06/25/17 0533 06/25/17 0505 06/21/17 0523 NA 142 142 -- -- -- 136 < > 139 K 3.3* 4.0 4.1 < > -- 5.2* < > 3.9 CL 106 108 -- -- -- 105 < > 105 CO2 29 27 -- -- -- 24 < > 23 ANIONGAP 10 11 -- -- -- 12 < > 15 GLUF 131* 222* -- -- -- 207* < > 346* BUN 16 12 -- -- -- 12 < > 20 CREATININE 0.5 0.6 -- -- -- 0.6 < > 0.7 BCR 32 20 -- -- -- 20 < > 29 CA 8.6 8.2* -- -- -- 8.4* < > 8.9 ALB -- -- -- -- 1.5* -- -- 2.8* GLOB -- -- -- -- -- -- -- 4.4 AG -- -- -- -- -- -- -- 0.6* PROT -- -- -- -- 6.9 -- -- 7.2 BILITOT -- -- -- -- 0.5 -- -- 0.2 ALT -- -- -- -- 18 -- -- 10 AST -- -- -- -- 81* -- -- 13 EGFR >60 >60 -- -- -- >60 < > >60 PHOS 2.3 -- -- -- -- -- -- -- MG 2.1 2.1 -- -- -- 2.1 < > 1.7 < > = values in this interval not displayed. Recent Labs Lab 06/21/17 0523 INR 0.9 IMAGING X-ray Chest 1 View Result Date: 06/26/2017 1. Smaller left apical pneumothorax, as above. This was relayed to the requesting health c are provider on the date and time of dictation. 2. Unchanged left support lines and tubes, as above. 3. Unchanged evidence of left upper lobectomy. 4. Unchanged nonspecific bilatera l airspace disease, somewhat diffuse. Electronically signed by Griffin Begum MD on 018 12:14 PM X-ray Chest 1 View Result Date: 06/26/2017 1. Tubes and lines in expected position. 2. Bilateral unchanged diffuse airspace disease, c onsistent with pulmonary edema versus infection. 3. Possible small left apical pneumothorax. Follow-up on subsequent exams. Echo Cardiac Adult Limited Result Date: 06/25/2017 1. This was a technically difficult study with suboptimal views. 2. Left ventricular systol ic function is hyperdynamic with an estimated EF of >70%. PROBLEM LIST Principal Problem: Malignant neoplasm of lower lobe of left lung (HCC) Active Problems: Coronary artery disease involving lower [place] coronary artery of [place] heart with angina pect monse ([facility]) Essential hypertension Type 2 diabetes mellitus without complication ([facility]) S/P drug eluting coronary stent placement QT prolongation Acute respiratory failure with hypoxia ([facility]) Resolved Problems: * No resolved hospital problems. * ASSESSMENT & PLAN NEURO: No issues CV: CAD with stents: cont ASA, Plavix, Lipitor. ? St elevation on ecg but no chest pain, pt had chest pains in the past Dr. Damaris bolaños lted. Repeat ECHO(06/25) was technically difficult study. EF >70%. Another echo ordered by dr eddie cruz 06-27 Hypotension: d/t sedation. Cont to monitor and assess fluid status. Severely prolonged QTc: 695. Resolved. PULM: Acute hypoxemic respiratory failure: likely from Hosp acquired infection/pneumonia with fever and leukocytosis combined with some pulmonary edema that could be negative pressure in origin. Will diurese, cover with abx, extubate to bipap. Pulmonology consulted, Dr. Bolton following. GI/NUTRITION: NPO. Have not started TFs d/t high OG tube output. No e/o bowel distention or other abdo tricia abnormality on exam.will start tube feeding if not extubated . RENAL/LYTES: Normal renal function, cont to follow. Decreasing UO. Give 20 mg iv Lasix.the IVC is distended at 4 cm without collapsibility. ID: As above. Empiric Zosyn and Levaquin to cover for possible HAP. vanco added.Sputum cx pe nding. Blood cxs sent b/c of fever. Procal low. Resp Filmarray neg. HEME: Anemia: H/H has drifted down from admission. No e/o bleeding. Some may have been with ch est tubes still in place. Possibly worsened d/t infection. Cont to follow. ENDO: No issues. MUSC/SKIN: OOB as tolerates. PT/OT PROPHYLAXIS: Stress ulcer prophylaxis: Pepcid DVT prophylaxis: SCDs, sq heparin Disposition: ICU plan above. D/w dr wade. Code Status: Full Code *Please bill 45 minutes of critical care time spent evaluating the patient, reviewing the d gt and formulating a plan exclusive of all other procedures. FUAD PATEL MD 06/27/2017 eslee, RAMOS Vickers 06/27/2017 8:43 AM PDTFormatting of this note might be different from the nan ginal. Progress Notes by Rios Camilo PA-C at 06/27/17 0843 Author: Rios Camilo PA-C Service: Cardiac, Thoracic, and Vascular Surgery Author Ty pe: Physician Carton Catcher - Certified Filed: 06/27/1746 Date of Service: 06/27/17842 Status: Attested Indian Trader: Rios Camilo PA-C (Physician Carton Catcher - Certified) Cosigner: Rafael downing MD at 06/28/17 1140 Attestation signed by Rafael Wade MD at 06/28/17 1140 I have reviewed the note below, personally reviewed the available laboratory and imaging st udies and examined the patient. I agree with the assessment and plan mentioned below. Electronically signed by: Rafael Wade, 06/28/2017 11:40 AM Cardiothoracic Surgery Progress Note Pt: Nancy Cheryle Nini AGE/SEX: 46 y.o. female : 1970 ROOM: [address] [place] [address] ADMIT DATE: 06/18/2017 Hospital Day: LOS: 9 days Surgery/Procedure: 06/22/17 - VATS assisted left lower lobectomy - Mediastinal lymphadenectomy (LN stations 5,6,7,9, and 10) Post-Op Day: 6 Days Post-Op SUBJECTIVE: The patient is a 46 y.o. female with significant past medical history of CAD wi th multiple stents, HTN, DM, long history of tobacco use but states she quit about 8-9 weeks ago who presents as a direct admit [facility]. The patient had a biopsy done of the lung lesion on 04/25/17 and the patho logy showed well differentiated adeno CA. Patient was referred to cardiothoracic surgery and was evaluated. She underwent testing inc luding PFT and a cardiology follow up prior to her admission in preparation for surgery. Overnight ASSESSMENT: Hypotensive req NE @ 8 Remains intubated on spontaneous mode, ABG pending PROBLEM LIST Principal Problem: Malignant neoplasm of lower lobe of left lung (HCC) Active Problems: Coronary artery disease involving lower [place] coronary artery of [place] heart with angina pect monse (HCC) Essential hypertension Type 2 diabetes mellitus without complication (HCC) S/P drug eluting coronary stent placement QT prolongation Acute respiratory failure with hypoxia (HCC) OBJECTIVE: Vital Signs: BP 114/72 | Pulse 63 | Temp 99.3 F (37.4 C) (Oral) Comment: after tylenol | Resp 18 | Ht 1.651 m (5' 5") | Wt 93.5 kg (206 lb 2.1 oz) | SpO2 99% | ? No | BMI 3 4.30 kg/m Temp: [98.4 F (36.9 C)-101.8 F (38.8 C)] 99.3 F (37.4 C) (06/27 614) BP: (71-127)/(38-73) 114/72 (06/27 629) Heart Rate: [63-98] 63 (06/28 731) Resp: [18-30] 18 (06/28 731) SpO2: [93 %-100 %] 99 % (06/28 731) Weight: [93.5 kg (206 lb 2.1 oz)] 93.5 kg (206 lb 2.1 oz) (06/27 429) FiO2 : [30 %-40 %] 30 % (06/28 731) PE: GENERAL: Pt resting in bed, intubated, sedated NEURO: sedated, moves all extremities SKIN: Thoracoscopy incision dressing is C/D/I. Chest tube REMOVED incision C/D/I. No erythe ma, edema/inflammation, discharge, or warmth noted around the incision site. HEART: RRR/ST w/normal S1/S2. No murmur, rub, heave, or gallop noted. LUNGS: Lungs are CTA w/o wheezing, crackles, or rhonchi. Dim bases. L>R ABDOMEN: Soft, rounded, nontender. BS active. No masses or organomegaly noted. DATA: Scheduled Medications aspirin 81 mg Oral Daily atorvastatin 80 mg Oral Nightly clopidogrel 75 mg Oral Daily docusate sodium 100 mg Oral BID Or docusate 100 mg Per OG Tube BID enalaprilat 1.25 mg Intravenous Q6H famotidine 20 mg Oral BID Or famotidine 20 mg Intravenous BID heparin (porcine) 5000 unit/0.5mL 5,000 Units Subcutaneous 3 times per day levofloxacin 500 mg Intravenous Q24H Lidocaine 2 patch Transdermal Daily metoprolol 2.5 mg Intravenous Q6H midazolam 1 mg Intravenous Once piperacillin-tazobactam 3.375 g 3.375 g Intravenous Q8H sennosides 5 mL Oral Nightly vancomycin 17 mg/kg Intravenous Q12H Continuous Infusions dexmedetomidine in NS 0.2 mcg/kg/hr (06/27/17635) dextrose 30 mL/hr at 06/27/17 0416 fentaNYL in NS 5 mcg/mL Stopped (06/27/17635) insulin regular 1 unit/mL 2.8 Units/hr (06/27/17 0551) norepinephrine 6 mcg/min (06/27/17 0732) sodium chloride (IV) PRN Medications acetaminophen OR acetaminophen OR acetaminophen, albuterol, aluminum-magnesium hydr oxide-simethicone, clonazePAM, dextrose, dextrose, diazepam, glucagon, glucagon, insulin reg ular 1 unit/mL, LORazepam, magnesium hydroxide, magnesium sulfate OR magnesium sulfate * *OR magnesium sulfate, morphine OR morphine OR morphine, nitroGLYCERIN, nystatin, ondansetron OR ondansetron, oxyCODONE OR oxyCODONE OR [DISCONTINUED] oxyCODONE, petrolatum, potassium chloride in NS OR potassium chloride OR potassium chloride HOME MEDS: Prior to Admission medications Medication Sig Start Date End Date Taking? Authorizing Provider aspirin 81 MG tablet Take 81 mg by mouth daily. Last dose Saturday due to lung biopsy toda y Yes Historical Provider atorvastatin (LIPITOR) 40 MG tablet Take 1 tablet by mouth nightly. 03/13/17 03/13/18 Yes PRICE Mendenhall clopidogrel (PLAVIX) 75 MG tablet Take 1 tablet by mouth daily. 03/13/17 Yes PRICE Serrato furosemide (LASIX) 40 MG tablet Take 1 tablet by mouth daily. 03/13/17 03/13/18 Yes PRICE Silvestre albuterol (PROVENTIL HFA;VENTOLIN HFA) 108 (90 BASE) MCG/ACT inhaler Inhale 2 puffs into th e lungs every 4 (four) hours as needed for Wheezing. Historical Provider gemfibrozil (LOPID) 600 MG tablet Take 1 tablet by mouth 2 (two) times daily before meals. 03/13/17 03/13/18 PRICE Silvestre insulin aspart (NOVOLOG) 100 UNIT/ML injection Inject 45 Units into the skin 3 (three) time s daily before meals. With meals Historical Provider insulin detemir (LEVEMIR) 100 UNIT/ML injection Inject 60 Units into the skin 2 (two) times daily. Historical Provider isosorbide mononitrate (IMDUR) 60 MG 24 hr tablet Take 1 tablet by mouth daily. TO REPLACE IMDUR 30 MG 06/03/17 06/03/18 PRICE Silvestre losartan (COZAAR) 25 MG tablet Take 1 tablet by mouth daily. 03/13/17 PRICE Silvestre metoprolol (TOPROL-XL) 25 MG 24 hr tablet Take 1 tablet by mouth nightly. 03/13/17 03/13/18 PRICE Silvestre nitroGLYCERIN (NITROSTAT) 0.[address] 1 tablet under the tongue every 5 (five) m inutes as needed for Chest pain. 07/25/16 07/25/17 Pilo Ocampo MD potassium chloride (MICRO-K) 10 MEQ CR capsule Take 1 capsule by mouth daily. 03/13/17 PRICE Silvestre pregabalin (LYRICA) 75 MG capsule Take 75 mg by mouth 3 (three) times daily. Historical Provider LABS: Recent Labs Lab 06/27/17 0345 06/26/17 1820 06/26/17 0305 WBC 19.42* 15.60* 15.71* HGB 8.9* 8.7* 9.2* HCT 26.0* 27.0* 27.7* PLT 404* 300 290 NEUTOPHILPCT 69.49 76.34 76.51 MONOPCT 8.64 7.88 8.35 Recent Labs Lab 06/27/17 0345 06/26/17 0305 06/26/17 0304 06/25/17 0533 06/25/17 0505 06/21/17 0523 NA 142 142 -- -- -- 136 < > 139 K 3.3* 4.0 4.1 < > -- 5.2* < > 3.9 CL 106 108 -- -- -- 105 < > 105 CO2 29 27 -- -- -- 24 < > 23 BUN 16 12 -- -- -- 12 < > 20 CREATININE 0.5 0.6 -- -- -- 0.6 < > 0.7 PROT -- -- -- -- 6.9 -- -- 7.2 BILITOT -- -- -- -- 0.5 -- -- 0.2 ALT -- -- -- -- 18 -- -- 10 AST -- -- -- -- 81* -- -- 13 < > = values in this interval not displayed. Phosphorus: Lab Results Component Value Date PHOS 2.3 06/27/2017 Invalid input(s): LABALBU Recent Labs Lab 06/27/17 0345 06/26/17 0305 06/25/17 0505 MG 2.1 2.1 2.1 No results for input(s): AMYLASE in the last 168 hours. Recent Labs Lab 06/26/17 0018 06/25/17 1650 06/25/17 0921 BEART 0 1 2 Recent Labs Lab 06/21/17 0523 INR 0.9 No results for input(s): TSH, T3FREE, FREET4 in the last 168 hours. Recent Labs Lab 06/26/17 1500 06/26/17 0852 06/26/17 0304 CKTOTAL 62 78 99 TROPONINI 0.367* 0.415* 0.438* CKMBINDEX UNABLE TO CALCULATE 2.3 1.8 Current Labs: PT/INR: Lab Results Component Value Date INR 0.9 06/21/2017 HgBA1c: Lab Results Component Value Date HGBA1C 9.2 (H) 06/27/2017 LABGLYC 217 06/27/2017 PLAN: Pulmonary edema vs aspiration pneumonia: appreciate Training And Development Director and Pulmonary assistance. -WBCs trending up, fever overnight, added Vanco and consult to ID -Continue ICU care, extubation per manager architectural, bronch this AM ?EKG changes overnight: echo this AM to r/o cardiac complications Uncontrolled DM: increase SSI; cont' to monitor, needs f/u w/ PCP as outpt. - pt takes 60 u levemir bid and 45 u before meals at home, The patient has been seen and the plan discussed with the attending provider, Dr. Sheri Camilo, PA-C 06/27/2017 8:43 AM onversion Ivette esquivel, Provider Unknown - 06/27/2017 8:16 AM PDTFormatting of this note might be different fr om the original. Progress Notes by Zainab Pop RPH at 06/27/17 0816 Author: Zainab Pop RPH Service: Pharmacy Author Type: Pharmacist Filed: 06/27/17816 Date of Service: 06/27/17815 Status: Signed Indian Trader: Zainab Pop RPH (Pharmacist) Initiation of Vancomycin Pharmacy Dosing Nancy Terrazas 46 y.o. female 1.651 m (5' 5") 93.5 kg (206 lb 2.1 oz) Body mass index is 34.3 kg/m. CREATININE Date Value Ref Range Status 06/27/2017 0.5 0.50 - 1.00 mg/dL Final Estimated CrCl : Serum creatinine: 0.5 mg/dL 06/27/17 034 Estimated creatinine clearance: 158.9 mL/min WBC: 19.42K/uL Indications: Fever of Unknown Origin Secondary to Suspected Infection Dose per Protocol: Loading Dose: Vancomycin 1500 mg (16mg/kg TBW) IV Q12H First Dose to be Given: 06/27/2017 at 0900 Vancomycin Trough Due: 06/29/2017 at 0800 Goal Trough for Vancomycin: 15-20 mcg/mL Pharmacist: Zainab Pop 06/27/2017 8:14 AM onver mayank [place], Provider Unknown - 06/26/2017 4:47 PM PDT Therapy Progress Note by David Gomez PT at 06/26/171646 Author: David Gomez PT Service: (none) Author Type: Physical Therapist Filed: 06/26/171646 Date of Service: 06/26/171646 Status: Signed Indian Trader: David Gomez PT (Physical Therapist) 06/26/17 1621 PT Last Visit PT Received On 04/25/18 Requires PT Follow Up On hold Other Comments Comments pt. transferred from 4RP to ICU will need new orders when appropriate. onver mayank Transaction, Provider Unknown - 06/26/2017 2:32 PM PDT Progress Notes by Erasto Alexander RD at 06/26/17 1432 Author: Erasto Alexander RD Service: (none) Author Type: Registered Dietitian Filed: 06/26/17 143 Date of Service: 06/26/171431 Status: Signed Indian Trader: Erasto Alexander RD (Registered Dietitian) 06/26/17 1413 Subjective Timepoint Follow up (Verbal consult - pend TF orders. ) Pt c/o Pt is intubated, sedated on precedex and fentanyl, has had 800 ml output out of OG t ube over the past 12 hrs. Per discussion in rounds, if OG tube output improves then EN feeds will be initiated. Reported by MD Fluid / Beverage Intake Oral Fluids Amount NPO Food Intake Type of Food / Meals NPO Enteral Nutrition Intake Access OG tube. Parenteral Nutrition Intake Rate/Solution D5 at 30 ml/hr provides approx 122 kcal/day Anthropometrics Weight change Wt is up 4.3 kg. According to I/O's is approx + 1 L of fluid. Biochemical data, medical tests, and procedures reviewed Biochemical data, medical tests, and procedures reviewed BG 222 H, endotool insulin protoco l ordered. Estimated Energy Needs Total Energy Estimated Needs 923 - 1175 kcal/day Method for Estimating Needs 11 - 14 kcal/kg/admit wt 83.9 kg Estimated Protein Needs Total Protein Estimated Needs 85 - 114 g protein/day Method for Estimating Needs 1.5 - 2 g pro/kg/adjusted wt 64.9 kg Recommendations Recommended energy needs If indicated recommend TF of Peptamen Intense VHP advance as darling ated to goal rate of 55 ml/hr (x20hr) to provide 1100 kcal, 101 g protein, 1100 ml TV, and 9 24 ml free water which supplies 13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 GLUF -- 207* 196* 135* < > 346* 293* BUN -- 12 21 28* < > 20 16 CREATININE -- 0.6 0.5 0.7 < > 0.7 0.7 BCR -- 20 42 40 < > 29 23 CA -- 8.4* 8.1* 8.4* < > 8.9 8.8 ALB 1.5* -- -- -- -- 2.8* 2.7* GLOB -- -- -- -- -- 4.4 4.3 AG -- -- -- -- -- 0.6* 0.6* PROT 6.9 -- -- -- -- 7.2 7.0 BILITOT 0.5 -- -- -- -- 0.2 0.2 ALT 18 -- -- -- -- 10 16 AST 81* -- -- -- -- 13 14 EGFR -- >60 >60 >60 < > >60 >60 PHOS -- -- -- -- -- -- 2.6 MG -- 2.1 2.3 2.4 < > 1.7 1.9 < > = values in this interval not displayed. Recent Labs Lab 06/21/17 0523 06/20/17 0434 INR 0.9 0.9 IMAGING X-ray Chest 1 View Result Date: 06/25/2017 1. Mild cardiomegaly with worsening bilateral pulmonary opacities and possible small left e ffusion. 2. Suspect 1 cm residual left apical pneumothorax. RADIA Electronically signed by Eric Cochran MD on Jun 25 2017 5:54AM Referring Provider Line: [phone] ID: [id number] PROBLEM LIST Principal Problem: Malignant neoplasm of lower lobe of left lung (HCC) Active Problems: Coronary artery disease involving lower [place] coronary artery of [place] heart with angina pect monse (HCC) Essential hypertension Type 2 diabetes mellitus without complication ([facility]) S/P drug eluting coronary stent placement QT prolongation Resolved Problems: * No resolved hospital problems. * ASSESSMENT & PLAN NEURO: No issues CV: CAD with stents: cont ASA, Plavix, Lipitor. Chest pain: with h/o MIs. Initial troponin 0.06. Will check CPK and trend Benjamin. EKG with Q waves in inferior leads/age indetermnant infarct. Cont prn SL nitro, prn morphine. Cardiol Dr. Alexa sepulveda (pt's regular regulator tester) called by Dr. Wade and will see pt today. Repeat ECHO this am (06/25) was technically difficult study. EF >70%. Severely prolonged QTc: 695. AVOID ANY QT PROLONGING MEDICATIONS PULM: Acute hypoxemic respiratory failure: cause is not clear at this point. Doubt cardiogenic at this time. ECHO is not signficantly changed from prior and is diffuse and patchy on CXR. Possible ARDS vs atypical PNA or HAP. Procal low. Does have leukocytosis. Afebrile. Started empiric Zosyn. Neg resp Filmarray. Awaiting Strep pneumo antigen. CTS consulted pulmonology, Dr. Bolton to see. Continue to monitor closely. Patient may end up needing intubation. Would do bronchoscop y at that point for BAL. GI/NUTRITION: NPO RENAL/LYTES: Normal renal function Mild hyperkalemia: will cont to monitor. Will recheck this evening. No chacon indicated at this time. Does not appear to be volume overloaded. ID: As above. Empiric Zosyn to cover for possible HAP. Favor short course unless other e/o i nfection. Not coughing to get a sputum specimen. HEME: Anemia: H/H has drifted down from admission. No e/o bleeding. Some may have been with ch est tubes still in place. H/H is stable last 2 days. Also possibly worsened d/t infection if she has one. Cont to follow. ENDO: No issues. MUSC/SKIN: OOB as tolerates PROPHYLAXIS: Stress ulcer prophylaxis: Pepcid DVT prophylaxis: SCDs, sq heparin Disposition: ICU plan above Code Status: Full Code *Please bill 80 minutes of critical care time spent evaluating the patient, reviewing the d gt and formulating a plan exclusive of all other procedures. Melissa Hyatt DO 06/25/2017 onversion Louise saction, Provider Unknown - 06/25/2017 8:35 AM PDTFormatting of this note might be differen t from the original. Pharmacy Note by Ruth Cage RPH at 06/25/17834 Author: Ruth Cage RPH Service: Pharmacy Author Type: Pharmacist Filed: 06/25/17834 Date of Service: 06/25/17834 Status: Signed Indian Trader: Ruth Cage RPH (Pharmacist) Zosyn Extended Infusion Initial Consult Nancy Terrazas 46 y.o. female Estimated Creatinine Clearance: 134.8 mL/min (by C-G formula based on SCr of 0.6 mg/dL). NEUTROPHILS ABS Date Value Ref Range Status 06/25/2017 13.63 (H) 1.90 - 7.40 K/uL Final CREATININE Date Value Ref Range Status 06/25/2017 0.6 0.50 - 1.00 mg/dL Final Comment: SPECIMEN MODERATELY HEMOLYZED Zosyn extended Infusion loading and maintenance dose guidelines: Plan per pharmacy protocol: Loading Dose Re-load if maintenance dose is not given within > = 4 hours 4.5 g IV Over 30 minutes CrCl >20 ml/min 3.375 g IV Q 8 hours Over 4 hours CrCl 10-20 ml/min *Do Not re-load if CrCl ?20 ml/min regardless of time in between dosing 3.375 g IV Q 12 opal rs Over 4 hours CrCl <10, HD, PD Zosyn 4.5 g IVPB loading dose over 30 minutes followed by Zosyn 3.375 g IVPB extended infus ion over 4 hours Q 8 hours Pharmacy will continue monitoring patient for appropriate dosing per renal function. 06/25/2017 8:34 AM Pharmacist: Ruth Cage Luke weaver, Cyndi Gifford PA-C - 06/25/2017 8:30 AM PDT Progress Notes by Cyndi Lara PA-C at 06/25/17829 Author: Cyndi Lara PA-C Service: Cardiac, Thoracic, and Vascular Surgery [facility] Type: Physician Carton Catcher - Certified Filed: 06/25/1780 Date of Service: 06/25/17829 Status: Attested Indian Trader: Cyndi Lara PA-C (Physician Carton Catcher - Certified) Cosigner: Rafael Wade MD at 06/25/17 3219 Attestation signed by Rafael Wade MD at 06/25/17 5740 I have reviewed the note below, personally reviewed the available laboratory and imaging st udies and examined the patient. I agree with the assessment and plan mentioned below. The patient had worsening respiratory status, now requiring Bipap. There was small pleural effusion (received Lasix), and small apical pneumo. No need for chest tube placement. Will t ransfer her to ICU. Will obtain stat echo. Will consult pulmonary service. Electronically signed by: Rafael Wade, 06/25/2017 1:36 PM Cardiothoracic Surgery Progress Note Pt: Nancy Hammondi AGE/SEX: 46 y.o. female : 1970 ROOM: [address] [place] [address] ADMIT DATE: 06/18/2017 Hospital Day: LOS: 7 days Surgery/Procedure: 06/22/17 - VATS assisted left lower lobectomy - Mediastinal lymphadenectomy (LN stations 5,6,7,9, and 10) Post-Op Day: 4 Days Post-Op SUBJECTIVE: The patient is a 46 y.o. female with significant past medical history of CAD wi th multiple stents, HTN, DM, long history of tobacco use but states she quit about 8-9 weeks ago who presents as a direct admit for eventual left lower lobe surgery from the cardiothor [facility] surgery team. The patient had a biopsy done of the lung lesion on 04/25/17 and the patho logy showed well differentiated adeno CA. Patient was referred to cardiothoracic surgery and was evaluated. [facility] a cardiology follow up prior to her admission in preparation for surgery. Overnight ASSESSMENT: HD Stable, NSR, c/o of chest pain. Worsening SOB since early this am, was on 2-3L NC yesterday/all night until a bout 4am, O2 needs went to 10L oxymask, placed on BiPap. CXR more congestioned this am. uncontrolled DM, hyperglycemia this am PROBLEM LIST Principal Problem: Malignant neoplasm of lower lobe of left lung (HCC) Active Problems: Coronary artery disease involving lower [place] coronary artery of [place] heart with angina pect monse (HCC) Essential hypertension Type 2 diabetes mellitus without complication (HCC) S/P drug eluting coronary stent placement QT prolongation OBJECTIVE: Vital Signs: BP 108/53 (BP Location: Left upper arm) | Pulse 98 | Temp 98.5 F (36.9 C) (Oral) | R azael 21 | Ht 1.651 m (5' 5") | Wt 96.7 kg (213 lb 3 oz) | SpO2 99% | ? No | BMI 35.48 kg/m Temp: [97.6 F (36.4 C)-98.6 F (37 C)] 98.5 F (36.9 C) (06/25 736) BP: (88-108)/(51-57) 108/53 (06/25 736) Heart Rate: [89-100] 98 (06/25 736) Resp: [16-22] 21 (06/25 736) SpO2: [90 %-99 %] 99 % (06/25 736) Weight: [96.7 kg (213 lb 3 oz)] 96.7 kg (213 lb 3 oz) (06/25 358) FiO2 : [40 %-50 %] 50 % (06/25 702) PE: GENERAL: Pt sitting up in bed, biPAP present, difficulty breathing, anxiety level very high , daughter cursing at staff/ hysterically crying, A&O x3, NAD NEURO: PERRLA, EOMI; no facial asymmetry, speech normal and non pressured. Normal ROM. SKIN: Thoracoscopy incision dressing is C/D/I. Chest tube REMOVED incision C/D/I. No erythe ma, edema/inflammation, discharge, or warmth noted around the incision site. HEART: RRR/ST w/normal S1/S2. No murmur, rub, heave, or gallop noted. LUNGS: Lungs are CTA w/o wheezing, crackles, or rhonchi. Dim bases. L>R ABDOMEN: Soft, rounded, nontender. BS active. No masses or organomegaly noted. DATA: Scheduled Medications acetaminophen 650 mg Oral 4 times per day aspirin 81 mg Oral Daily atorvastatin 40 mg Oral Nightly clopidogrel 75 mg Oral Daily docusate sodium 100 mg Oral BID famotidine 20 mg Oral BID Or famotidine 20 mg Intravenous BID furosemide 40 mg Intravenous Daily insulin detemir 60 Units Subcutaneous BID insulin lispro (human) 2-8 Units Subcutaneous Nightly insulin lispro (human) 4-16 Units Subcutaneous TID AC insulin lispro (human) 40 Units Subcutaneous TID AC isosorbide mononitrate 60 mg Oral Daily Lidocaine 2 patch Transdermal Daily losartan 25 mg Oral Daily magnesium hydroxide 30 mL Oral Daily metoprolol 25 mg Oral Nightly morphine pregabalin 75 mg Oral TID sennosides 5 mL Oral Nightly Continuous Infusions PRN Medications acetaminophen OR acetaminophen OR acetaminophen, albuterol, aluminum-magnesium hydr oxide-simethicone, clonazePAM, dextrose, dextrose, HYDROmorphone, LORazepam, magnesium sulfa te OR magnesium sulfate OR magnesium sulfate, nitroGLYCERIN, oxyCODONE OR oxyCOD ONE OR [DISCONTINUED] oxyCODONE, potassium chloride OR potassium chloride OR pot assium chloride HOME MEDS: Prior to Admission medications Medication Sig Start Date End Date Taking? Authorizing Provider aspirin 81 MG tablet Take 81 mg by mouth daily. Last dose Saturday due to lung biopsy toda y Yes Historical Provider atorvastatin (LIPITOR) 40 MG tablet Take 1 tablet by mouth nightly. 03/13/17 03/13/18 Yes Mar y PRICE Babcock clopidogrel (PLAVIX) 75 MG tablet Take 1 tablet by mouth daily. 03/13/17 Yes PRICE Serrato furosemide (LASIX) 40 MG tablet Take 1 tablet by mouth daily. 03/13/17 03/13/18 Yes PRICE Silvestre albuterol (PROVENTIL HFA;VENTOLIN HFA) 108 (90 BASE) MCG/ACT inhaler Inhale 2 puffs into th e lungs every 4 (four) hours as needed for Wheezing. Historical Provider gemfibrozil (LOPID) 600 MG tablet Take 1 tablet by mouth 2 (two) times daily before meals. 03/13/17 03/13/18 PRICE Silvestre insulin aspart (NOVOLOG) 100 UNIT/ML injection Inject 45 Units into the skin 3 (three) time s daily before meals. With meals Historical Provider insulin detemir (LEVEMIR) 100 UNIT/ML injection Inject 60 Units into the skin 2 (two) times daily. Historical Provider isosorbide mononitrate (IMDUR) 60 MG 24 hr tablet Take 1 tablet by mouth daily. TO REPLACE IMDUR 30 MG 06/03/17 06/03/18 PRICE Silvestre losartan (COZAAR) 25 MG tablet Take 1 tablet by mouth daily. 03/13/17 PRICE Silvestre metoprolol (TOPROL-XL) 25 MG 24 hr tablet Take 1 tablet by mouth nightly. 03/13/17 03/13/18 PRICE Silvestre nitroGLYCERIN (NITROSTAT) 0.[address] 1 tablet under the tongue every 5 (five) m inutes as needed for Chest pain. 07/25/16 07/25/17 Pilo Ocampo MD potassium chloride (MICRO-K) 10 MEQ CR capsule Take 1 capsule by mouth daily. 03/13/17 PRICE Silvestre pregabalin (LYRICA) 75 MG capsule Take 75 mg by mouth 3 (three) times daily. Historical Provider LABS: Recent Labs Lab 06/25/1750406/24/1750606/23/17 0529 WBC 16.44* 12.13* 12.60* HGB 10.6* 10.4* 12.3 HCT 31.2* 29.9* 36.2 PLT 298 253 285 NEUTOPHILPCT 82.89 78.83 81.67 MONOPCT 4.67 6.72 7.74 Recent Labs Lab 06/25/17 05006/24/17 05006/23/17 0529 06/21/17 0523 06/20/17 0434 NA 136 136 136 < > 139 137 K 5.2* 3.7 4.2 < > 3.9 4.0 CL 105 107 106 < > 105 104 CO2 24 25 22* < > 23 23 BUN 12 21 28* < > 20 16 CREATININE 0.6 0.5 0.7 < > 0.7 0.7 PROT -- -- -- -- 7.2 7.0 BILITOT -- -- -- -- 0.2 0.2 ALT -- -- -- -- 10 16 AST -- -- -- -- 13 14 < > = values in this interval not displayed. Phosphorus: Lab Results Component Value Date PHOS 2.6 06/20/2017 Invalid input(s): LABALBU Recent Labs Lab 06/25/17 05006/24/17 05006/23/17 0529 MG 2.1 2.3 2.4 No results for input(s): AMYLASE in the last 168 hours. No results for input(s): PHART, PO2ART, IEZ0DPE, F7ZEOXCJ, BEART in the last 168 hours. Recent Labs Lab 06/21/17 0523 06/20/17 0434 INR 0.9 0.9 No results for input(s): TSH, T3FREE, FREET4 in the last 168 hours. Recent Labs Lab 06/25/17 0700 TROPONINI 0.059 Current Labs: PT/INR: Lab Results Component Value Date INR 0.9 06/21/2017 HgBA1c: Lab Results Component Value Date HGBA1C 10.9 (H) 06/23/2017 LABGLYC 266 06/23/2017 IMAGIN06/25/17: CXR 1 View: FINDINGS: Lungs/Pleura: Worsening bilateral pulmonary opacities. Possible small left pleural effusion. There may be a 1 cm left apical pneumothorax. Mediastinum: Mild cardiomega ly. Other: Soft tissue emphysema again seen in the left chest wall. IMPRESSION: 1. Mild cardiomegaly with worsening bilateral pulmonary opacities and possible small lef t effusion. 2. Suspect 1 cm residual left apical pneumothorax. RADIA Electronically signed by Eric Cochran MD on Jun 25 2017 5:54AM PLAN: - Transferring up to ICU - Stat ECHO - pain: cont' current prn regiment, added ativan prn. - Uncontrolled DM: increase SSI; cont' to monitor, needs f/u w/ PCP as outpt. - pt takes 60 u levemir bid and 45 u before meals at home, DM educator to see today. Greatly appreciate the excellent care of the [facility] team for this patient. The patient has been seen and the plan discussed with the attending provider, Dr. Sheri Lara PA-C 06/25/2017 8:30 AM Starr Hook MD - 06/25/2017 8:29 AM PDTFormatting of this note might be different from the nan susan. Progress Notes by Starr Smith MD at 06/25/17828 Author: Starr Smith MD Service: Hospitalist Author Type: Physician Filed: 06/25/17 0846 Date of Service: 06/25/17828 Status: Addendum Indian Trader: Starr Smith MD (Physician) Related Notes: Original Note by Starr Smtih MD (Physician) filed at 06/25/17 0844 [facility] Service: Hospitalist Progress Note Pt: Nancy Terrazas AGE/SEX: 46 y.o. female ROOM: [address] [place] [address] : 1970 PCP: Yuriy Cardenas ADMIT DATE: 06/18/2017 TODAY'S DATE: 06/25/2017 Hospital Day/Hospital Course: LOS: 7 days SUBJECTIVE: Patient seen and examine. Patient respiratory status worsened over night, placed on BIPAP, Complaint of chest wound pain, 11/11. She said her chest pain is pressure like and worse than before. Scheduled Medications: acetaminophen 650 mg Oral 4 times per day aspirin 81 mg Oral Daily atorvastatin 40 mg Oral Nightly clopidogrel 75 mg Oral Daily docusate sodium 100 mg Oral BID famotidine 20 mg Oral BID Or famotidine 20 mg Intravenous BID furosemide 40 mg Intravenous Daily insulin detemir 60 Units Subcutaneous BID insulin lispro (human) 2-8 Units Subcutaneous Nightly insulin lispro (human) 4-16 Units Subcutaneous TID AC insulin lispro (human) 40 Units Subcutaneous TID AC isosorbide mononitrate 60 mg Oral Daily Lidocaine 2 patch Transdermal Daily losartan 25 mg Oral Daily magnesium hydroxide 30 mL Oral Daily metoprolol 25 mg Oral Nightly morphine pregabalin 75 mg Oral TID sennosides 5 mL Oral Nightly Continuous Infusions PRN Medications acetaminophen OR acetaminophen OR acetaminophen, albuterol, aluminum-magnesium hydr oxide-simethicone, clonazePAM, dextrose, dextrose, HYDROmorphone, LORazepam, magnesium sulfa te OR magnesium sulfate OR magnesium sulfate, nitroGLYCERIN, oxyCODONE OR oxyCOD ONE OR [DISCONTINUED] oxyCODONE, potassium chloride OR potassium chloride OR pot assium chloride Allergy: Allergies Allergen Reactions Latex Hives Sulfa Antibiotics Rash Codeine Nausea and Vomiting Lisinopril Cough OBJECTIVE: Vitals: Temp: [97.6 F (36.4 C)-98.6 F (37 C)] 98.5 F (36.9 C) Heart Rate: [89-100] 98 Resp: [16-22] 21 BP: (88-108)/(51-57) 108/53 FiO2 : [40 %-50 %] 50 % I&O Detailed Table: Intake/Output Summary (Last 24 hours) at 06/25/17 0829 Last data filed at 06/25/17 0600 Gross per 24 hour Intake 1232 ml Output 2100 ml Net -868 ml Patient Vitals for the past 96 hrs: Weight 06/25/17 0359 96.7 kg (213 lb 3 oz) 06/24/17 0242 94.9 kg (209 lb 3.5 oz) 06/23/17 0555 95.6 kg (210 lb 12.2 oz) 06/22/17 0538 94 kg (207 lb 3.7 oz) Physical Examination: Constitutional: Alert and oriented to person, place, and time. HEENT: Neck supple, no JVD, non icteric sclera. Cardiovascular: Normal rate, regular rhythm, normal heart sounds with S1 and S2, and intact distal pulses. Exam reveals no gallop and no friction rub. No murmur heard. Pulmonary/Chest: . No respiratory distress. no wheezes. no rales. Basilar crackles,Chest t ube in place. Abdominal: Soft. Bowel sounds are normal. exhibits no distension and no mass. There is no t enderness. There is no rebound and no guarding. Extremeties/Musculoskeletal: Normal range of motion.exhibits no tenderness. exhibits no ed cony. Normal equal peripheral pulses. Neurological: Alert and oriented to person, place, and time. No cranial nerve deficit. E xhibits normal muscle tone. No gross motor deficits. Skin: Skin is warm. No pallor. Patient has normal capillary refill, no mottling. Psychiatric: Has a normal mood and affect. Behavior is normal. Judgment normal. LABS: Recent Labs Lab 06/25/17 0505 06/24/17 0507 06/23/17 0529 WBC 16.44* 12.13* 12.60* HGB 10.6* 10.4* 12.3 HCT 31.2* 29.9* 36.2 PLT 298 253 285 NEUTOPHILPCT 82.89 78.83 81.67 MONOPCT 4.67 6.72 7.74 Recent Labs Lab 06/25/17 0505 06/24/17 0507 06/23/17 0529 06/21/17 0523 06/20/17 0434 NA 136 136 136 < > 139 137 K 5.2* 3.7 4.2 < > 3.9 4.0 CL 105 107 106 < > 105 104 CO2 24 25 22* < > 23 23 BUN 12 21 28* < > 20 16 CREATININE 0.6 0.5 0.7 < > 0.7 0.7 PROT -- -- -- -- 7.2 7.0 BILITOT -- -- -- -- 0.2 0.2 ALT -- -- -- -- 10 16 AST -- -- -- -- 13 14 < > = values in this interval not displayed. Phosphorus: Lab Results Component Value Date PHOS 2.6 06/20/2017 Invalid input(s): LABALBU Recent Labs Lab 06/25/17 0505 06/24/17 0507 06/23/17 0529 MG 2.1 2.3 2.4 No results for input(s): AMYLASE in the last 168 hours. No results for input(s): PHART, PO2ART, AXD8AWJ, S0NGGDGM, BEART in the last 168 hours. Recent Labs Lab 06/21/17 0523 06/20/17 0434 INR 0.9 0.9 No results for input(s): TSH, T3FREE, FREET4 in the last 168 hours. Recent Labs Lab 06/25/17 0700 TROPONINI 0.059 i PROBLEM LIST Principal Problem: Malignant neoplasm of lower lobe of left lung ([facility]) Active Problems: Coronary artery disease involving lower [place] coronary artery of [place] heart with angina pect monse ([facility]) Essential hypertension Type 2 diabetes mellitus without complication ([facility]) S/P drug eluting coronary stent placement QT prolongation ASSESSMENT & PLAN 1. Acute hypoxemic respiratory failure, possible due to pulmonary edema versus pneumonia, p atient's leucocytosis is worse this morning, will follow procalcitonin, initial ECHO showed normal EF, was repeated this morning, Empiric zosyn per ICU, MRSA nasal swab ordered, will b e transferred for further care. Received IV lasix will continue daily. Follow repeat ECHO. EKG showed prolonged QT, poor quality EKG, will repeat possible error. Troponin is negative . Cardiology will be consulted by ICU. Discussed with Dr. Fajardo. 2. Malignant neoplasm of lower lobe of left lung, no metastasis. s/p left lower lobectomy f or adenocarcinoma, mediastinal lymphadenectomy with no evidence of metastasis, performed by Dr. Noriega on 06/21/2017. Small pneumothorax, stable. continue pain management, now on PRN Dilaudid. 2. Coronary artery disease, h/o coronary stent placement, continue ASA, Plavix, Metoprolol, imdur, statin and Losartan. Plavix was held with Integrilin prior to surgery, restarted Plavix 06/22. 3. HTN, continue losartan, metoprolol, furosemide 4. Type 2 diabetes mellitus with hyperglycemia, restarted Levemir 60 units BID and Lispro w ith meals and sliding scale, monitor blood sugar. 5. Chronic back pain, continue pain management. 6. Constipation, Senna/colace 7. DVT prophylaxis, Heparin will be started. Urine culture no growth and symptoms improved, will repeat UA, no need for antibiotics. Starr Smith MD 06/25/2017 8:29 AM onversion Transac tion, Provider Unknown - 06/25/2017 8:28 AM PDTFormatting of this note might be different f rom the original. Nurse Progress Note by Belkis Merino RN at 06/25/17827 Author: Belkis Merino RN Service: (none) Author Type: Registered Nurse Filed: 06/25/17839 Date of Service: 06/25/17827 Status: Signed Indian Trader: Belkis Merino RN (Registered Nurse) Patient and daughter very upset this morning, daughter feels like no one is listening to th em. At bedside shift exchange, patient's said that her pain was more near incision and that she was feeling better with BiPAP. Dr. Fajardo's down to see patient and patient said that sh e is having the same type of pain that she had with her prior Heart Attacks. 2 mg of Morphin e given along with 1 SL Nitro. Chest xray shows significant changes since image on 06/23. Pa tient to transfer upstairs. Report called to HEALTH AND FITNESS PROFESSOR. Patient to transfer to [facility]. Belkis Merino RN 06/25/17 @ 0840 onver mayank Transaction, Provider Unknown - 06/25/2017 4:27 AM PDT Nurse Progress Note by Natasha Amor RN at 06/25/17 0427 Author: Natasha Amor RN Service: (none) Author Type: Registered Nurse Filed: 06/25/17518 Date of Service: 06/25/17426 Status: Addendum Indian Trader: Natasha Amor RN (Registered Nurse) Related Notes: Original Note by Natasha Amor RN (Registered Nurse) filed at 06/25/17 14 2200:Pt and daughter feel as though patient "should not be in this much pain", either pt or daughter placed call to [facility] stating they wanted to speak with a hospitalist regarding pain medication. This RN spoke with patient and daughter regarding pain goals. Informed pt we wou ld not be able to completely take away her pain, that we are trying to find an oral pain med ication regimen that keeps her at a tolerable level. Pt was very anxious & crying, stating p ain was at 10/10 & burning. 0.5mg dilaudid given x1 to help with break through pain. 0430: Pt walked to bathroom, noted to be more short of breath, c/o a lot of pain and diffic ulty breathing. O2 demand increased to 10L in order to get O2 sats >90%. HR 100-110's, STAT chest xray ordered, RT called to place pt on Bipap and NOC hosp paged. Pt appeared more rela xed once placed on Bipap. Still has frequent bouts of anxiety and crying. O2 sats 92-95% on Bipap 40%. Awaiting CXR, hospitalist to be called with results. Natasha Amor RN 06/25/2017 onver mayank Transaction, Provider Unknown - 06/24/2017 4:18 PM PDT Progress Notes by Eliazar Dumont CRT at 06/24/17 1618 Author: Eliazar Dumont CRT Service: (none) Author Type: Certified Respiratory Therapist Filed: 06/24/17 1619 Date of Service: 06/24/17 1618 Status: Signed Indian Trader: Eliazar Dumont CRT (Certified Respiratory Therapist) [facility] Department of Respiratory Assisted Oxygen Evaluation (Evaluation is valid for 48 hours once completed) Date: 06/24/2017 RT: Eliazar Dumont Time: 4:18 PM Home O2 Eval at rest-Part 1 Is the patient's SpO2 88% or lower at rest & breathing room air? : Yes SpO2 at rest & breathing room air: 85 percent If yes, lpm O2 to keep SpO2 88% or higher at rest: 2 lpm SpO2 on O2 at rest : 92 percent Home O2 Eval during exercise-Part 2 Is the patient's SpO2 88% or lower during exercise & breathing room air? : Yes SpO2 during exercise & breathing room air : 87 percent If yes, lpm O2 to keep SpO2 88% or higher during excercise: 2 lpm SpO2 on O2 during exercise: 92 percent Home O2 Eval Comment Eval Comment: Patient needs home O2, patient Spo2 drop below 88%. Patient needs 2lpm of O2 at rest and while walking. HOME OXYGEN PROVIDER PREFERENCE PHONE FAX [facility] ([facility] [phone] *NOTE* Provider must include liter flow, route of oxygen administration, frequency of use w ith duration of need in months on the prescription AND document patient s diagnosis. OXYGEN PRN IS NOT A VALID ORDER Physician Signature: Date: Time: Starr Burgos MD - 06/24/2017 3:45 PM PDT Progress Notes by Starr Smith MD at 06/24/17 2814 Author: Starr Smith MD Service: Hospitalist Author Type: Physician Filed: 06/24/17 5023 Date of Service: 06/24/17 1545 Status: Addendum Indian Trader: Starr Smith MD (Physician) Related Notes: Original Note by Starr Smith MD (Physician) filed at 06/24/17 1754 [facility] Service: Hospitalist Progress Note Pt: Nancy Terrazas AGE/SEX: 46 y.o. female ROOM: [facility]4457-1 : 1970 PCP: Yuriy Cardenas ADMIT DATE: 06/18/2017 TODAY'S DATE: 06/24/2017 Hospital Day/Hospital Course: LOS: 6 days SUBJECTIVE: Patient seen and examine. Complaint of chest wound pain, 09/10, she has no urinary symptoms today, she is generally weak, family at bed side. She has some shortness of breath. Scheduled Medications: acetaminophen 650 mg Oral 4 times per day aspirin 81 mg Oral Daily atorvastatin 40 mg Oral Nightly ceFAZolin 1 g Intravenous Q8H clopidogrel 75 mg Oral Daily docusate sodium 100 mg Oral BID famotidine 20 mg Oral BID Or famotidine 20 mg Intravenous BID ibuprofen 400 mg Oral 4 times per day insulin detemir 60 Units Subcutaneous BID insulin lispro (human) 2-8 Units Subcutaneous Nightly insulin lispro (human) 30 Units Subcutaneous TID AC insulin lispro (human) 4-16 Units Subcutaneous TID AC isosorbide mononitrate 60 mg Oral Daily Lidocaine 2 patch Transdermal Daily losartan 25 mg Oral Daily magnesium hydroxide 30 mL Oral Daily metoprolol 25 mg Oral Nightly pregabalin 75 mg Oral TID senna-docusate 1 tablet Oral Nightly Continuous Infusions PRN Medications acetaminophen OR acetaminophen OR acetaminophen, albuterol, aluminum-magnesium hydr oxide-simethicone, clonazePAM, dextrose, dextrose, LORazepam, magnesium sulfate OR magne sium sulfate OR magnesium sulfate, oxyCODONE OR oxyCODONE OR [DISCONTINUED] oxyC ODONE, potassium chloride OR potassium chloride OR potassium chloride Allergy: Allergies Allergen Reactions Latex Hives Sulfa Antibiotics Rash Codeine Nausea and Vomiting Lisinopril Cough OBJECTIVE: Vitals: Temp: [97.7 F (36.5 C)-98.8 F (37.1 C)] 97.7 F (36.5 C) Heart Rate: [89-102] 92 Resp: [14-18] 18 BP: (88-107)/(51-61) 96/51 I&O Detailed Table: Intake/Output Summary (Last 24 hours) at 06/24/17 1546 Last data filed at 06/24/17 1206 Gross per 24 hour Intake 757 ml Output 2000 ml Net -1243 ml Patient Vitals for the past 96 hrs: Weight 06/24/17 0242 94.9 kg (209 lb 3.5 oz) 06/23/17 0555 95.6 kg (210 lb 12.2 oz) 06/22/17 0538 94 kg (207 lb 3.7 oz) Physical Examination: Constitutional: Alert and oriented to person, place, and time. HEENT: Neck supple, no JVD, non icteric sclera. Cardiovascular: Normal rate, regular rhythm, normal heart sounds with S1 and S2, and intact distal pulses. Exam reveals no gallop and no friction rub. No murmur heard. Pulmonary/Chest: . No respiratory distress. no wheezes. no rales. Chest tube in place. Abdominal: Soft. Bowel sounds are normal. exhibits no distension and no mass. There is no t enderness. There is no rebound and no guarding. Extremeties/Musculoskeletal: Normal range of motion.exhibits no tenderness. exhibits no ed cony. Normal equal peripheral pulses. Neurological: Alert and oriented to person, place, and time. No cranial nerve deficit. E xhibits normal muscle tone. No gross motor deficits. Skin: Skin is warm. No pallor. Patient has normal capillary refill, no mottling. Psychiatric: Has a normal mood and affect. Behavior is normal. Judgment normal. LABS: Recent Labs Lab 06/24/17 0507 06/23/17 0529 06/22/17 0424 WBC 12.13* 12.60* 19.39* HGB 10.4* 12.3 13.8 HCT 29.9* 36.2 40.9 PLT 253 285 301 NEUTOPHILPCT 78.83 81.67 77.90 MONOPCT 6.72 7.74 8.81 Recent Labs Lab 06/24/17 0507 06/23/17 0529 06/22/17 0424 06/21/17 0523 06/20/17 0434 06/18/17 0544 NA 136 136 134* < > 139 137 -- 135 K 3.7 4.2 5.0* < > 3.9 4.0 < > 3.5 CL 107 106 103 < > 105 104 -- 97* CO2 25 22* 20* < > 23 23 -- 26 BUN 21 28* 30* < > 20 16 -- 14 CREATININE 0.5 0.7 0.9 < > 0.7 0.7 -- 0.8 PROT -- -- -- -- 7.2 7.0 -- 7.9 BILITOT -- -- -- -- 0.2 0.2 -- 0.3 ALT -- -- -- -- 10 16 -- 14 AST -- -- -- -- 13 14 -- 13 GLUCOSE -- -- -- -- -- -- -- 442* < > = values in this interval not displayed. Phosphorus: Lab Results Component Value Date PHOS 2.6 06/20/2017 Invalid input(s): LABALBU Recent Labs Lab 06/24/17 0507 06/23/17 0529 06/22/17 0424 MG 2.3 2.4 1.9 No results for input(s): AMYLASE in the last 168 hours. No results for input(s): PHART, PO2ART, FJO1DIO, Q8MWDAHI, BEART in the last 168 hours. Recent Labs Lab 06/21/17 0523 06/20/17 0434 06/18/17 0544 INR 0.9 0.9 0.9 Recent Labs Lab 06/18/17 0544 TSH 0.483 No results for input(s): CKTOTAL, TROPONINI, TROPONINT, CKMBINDEX in the last 168 hours.i PROBLEM LIST Principal Problem: Malignant neoplasm of lower lobe of left lung (HCC) Active Problems: Coronary artery disease involving lower [place] coronary artery of [place] heart with angina pect monse (HCC) Essential hypertension Type 2 diabetes mellitus without complication (HCC) S/P drug eluting coronary stent placement ASSESSMENT & PLAN 1. Malignant neoplasm of lower lobe of left lung, no metastasis. s/p left lower lobectomy f or adenocarcinoma, mediastinal lymphadenectomy with no evidence of metastasis, performed by Dr. Noriega on 06/21/2017. continue pain management, I was told be nurse that patient is sedated when she takes Dila udid, will cut down on Dilaudid dose and hold for sedation, and continue oral Oxycodone. She is on 2 L oxygen, CXR showed congestion, will monitor and evaluate the need for oxygen. 2. Coronary artery disease, h/o coronary stent placement, continue ASA, Plavix, Metoprolol, imdur, statin and Losartan. Plavix was held with Integrilin prior to surgery, restarted Plavix 06/22. 3. HTN, continue losartan, metoprolol, furosemide 4. Type 2 diabetes mellitus with hyperglycemia, restarted Levemir 60 units BID and Lispro w ith meals and sliding scale, monitor blood sugar. 5. Chronic back pain, continue pain management. 6. Constipation, Senna/colace 7. DVT prophylaxis, SCD following surgery. Then Heparin. Urine culture no growth and symptoms improved, will repeat UA, no need for antibiotics. Starr Smith MD 06/24/2017 3:46 PM onversion Transac tion, Provider Unknown - 06/24/2017 2:37 PM PDTFormatting of this note might be different f rom the original. Nurse Progress Note by Drea Mixon RN at 06/24/17 1437 Author: Drea Mixon RN Service: (none) Author Type: Registered Nurse Filed: 06/24/17 1047 Date of Service: 06/24/171436 Status: Addendum Indian Trader: Drea Mixon RN (Registered Nurse) Related Notes: Original Note by Drea Mixon RN (Registered Nurse) filed at 06/24/17 0947 Pt and pt daughter frequently requesting pain medication, pt medicated for pain using prn p ain scale 0-10, see mar. This RN was notified of patient requesting pain medication. Patient BP was 88/52, pt in bed resting comfortable with eyes closed. pt and pt daughter informed was informed about low blood pressure and correlation/adverse effects of narcotics. This RN concerned about over medicating pt given current circumstances. Daughter states "if takes yo u forever to get into the room. Why does it take two of you to come in here? You guys are no t even busy out there. The Dr said my mom could have pain meds every 2 hours". therapeutic l istening provided. Attempted second time to educate pt and family on narcotics and hypotensi on. Education unsuccessful. Lead notified. Hospitalist notified. IV dilaudid and oxycodone 1 5mg discontinued. Pt and daughter informed of MD contact. Lead RN at bedside without primary RN per request of pt and daughter. [facility] Drea Mixon RN Home O2 eval complete, pt requiring home O2. No other issues throughout shift. onver mayank Transaction, Provider Unknown - 06/24/2017 2:14 PM PDT Case Management by Janet Gallegos RN at 06/24/17 1414 Author: Janet Gallegos RN Service: (none) Author Type: Registered Nurse Filed: 06/24/17 1416 Date of Service: 06/24/17 1414 Status: Signed Indian Trader: Janet Gallegos RN (Registered Nurse) Met with pt and daughter, pt will discharge home when medically ready. Pt requested hospital bed, CM informed pt she will need to qualify for Medicare to pay for the bed, will need MD's notes indicating the need for the bed. CM to follow. Sawyer Everett, PT - 06/24/2017 1:34 PM PDTFormatting of this note might be different from t he original. Therapy Progress Note by Sawyer Sotelo PT at 06/24/17 2594 Author: Sawyer Sotelo PT Service: (none) Author Type: Physical Therapist Filed: 06/24/17 9213 Date of Service: 06/24/17 1334 Status: Signed Indian Trader: Sawyer Sotelo PT (Physical Therapist) 06/24/17 1331 PT Last Visit PT Received On 06/24/17 Requires PT Follow Up On hold Other Comments Comments Upon PT arrival pt sitting at EOB. Pt reported that she would like to walk but her pain level is too high vi. Pt rated pain at a 8.5/10, pt also reports that she has already been up and walking today. Pt on hold until pain managed. Lucien Jain PA-C - 06/24/2017 7:00 AM PDTFormatting of this note might be different from the o riginal. Progress Notes by Cyndi Lara PA-C at 06/24/17 07 Author: Cyndi Lara PA-C Service: Cardiac, Thoracic, and Vascular Surgery Au thor Type: Physician Carton Catcher - Certified Filed: 06/24/17739 Date of Service: 06/24/17699 Status: Attested Indian Trader: Cyndi Lara PA-C (Physician Carton Catcher - Certified) Cosigner: Rafael Wade MD at 06/24/17 1346 Attestation signed by Rafael Wade MD at 06/24/17 1346 I have reviewed the note below, personally reviewed the available laboratory and imaging st udies and examined the patient. I agree with the assessment and plan mentioned below. Electronically signed by: Rafael Wade, 06/24/2017 1:46 PM Cardiothoracic Surgery Progress Note Pt: Nancy Terrazas AGE/SEX: 46 y.o. female : 1970 ROOM: [address] [place], [place] [id number]- ADMIT DATE: 06/18/2017 Hospital Day: LOS: 6 days Surgery/Procedure: 06/22/17 - VATS assisted left lower lobectomy - Mediastinal lymphadenectomy (LN stations 5,6,7,9, and 10) Post-Op Day: 3 Days Post-Op SUBJECTIVE: The patient is a 46 y.o. female with significant past medical history of CAD wi th multiple stents, HTN, DM, long history of tobacco use but states she quit about 8-9 weeks ago who presents as a direct admit for eventual left lower lobe surgery from the cardiothor [facility] surgery team. The patient had a biopsy done of the lung lesion on 04/25/17 and the patho logy showed well differentiated adeno CA. Patient was referred to cardiothoracic surgery and was evaluated. She underwent testing inc luding PFT and a cardiology follow up prior to her admission in preparation for surgery. Overnight ASSESSMENT: HD Stable, NSR On 1-2L NC, with mild SOB w/ ambulation/sleep. CT removed w/o complications CXR below uncontrolled DM, hyperglycemia this am PROBLEM LIST Principal Problem: Malignant neoplasm of lower lobe of left lung (HCC) Active Problems: Coronary artery disease involving lower [place] coronary artery of lower [place] heart with angina pect monse (HCC) Essential hypertension Type 2 diabetes mellitus without complication (HCC) S/P drug eluting coronary stent placement OBJECTIVE: Vital Signs: BP 104/57 (BP Location: Left upper arm) | Pulse 96 | Temp 98.8 F (37.1 C) (Oral) | R azael 16 | Ht 1.651 m (5' 5") | Wt 94.9 kg (209 lb 3.5 oz) | SpO2 92% | ? No | BMI 34.82 kg/m Temp: [97.9 F (36.6 C)-98.8 F (37.1 C)] 98.8 F (37.1 C) (06/25 447) BP: (89-107)/(51-61) 104/57 (06/25 447) Heart Rate: [87-102] 96 (06/25 447) Resp: [14-16] 16 (06/25 447) SpO2: [92 %-96 %] 92 % (06/25 447) Weight: [94.9 kg (209 lb 3.5 oz)] 94.9 kg (209 lb 3.5 oz) (06/24 241) PE: GENERAL: Pt sitting up in chair, NC present, A&O x3, NAD NEURO: PERRLA, EOMI; no facial asymmetry, speech normal and non pressured. Normal ROM. SKIN: Thoracoscopy incision dressing is C/D/I. Chest tube REMOVED incision C/D/I. No erythe ma, edema/inflammation, discharge, or warmth noted around the incision site. HEART: RRR w/normal S1/S2. No murmur, rub, heave, or gallop noted. LUNGS: Lungs are CTA w/o wheezing, crackles, or rhonchi. Dim bases. ABDOMEN: Soft, rounded, nontender. BS active. No masses or organomegaly noted. DATA: Scheduled Medications acetaminophen 650 mg Oral 4 times per day aspirin 81 mg Oral Daily atorvastatin 40 mg Oral Nightly ceFAZolin 1 g Intravenous Q8H clopidogrel 75 mg Oral Daily docusate sodium 100 mg Oral BID famotidine 20 mg Oral BID Or famotidine 20 mg Intravenous BID ibuprofen 400 mg Oral 4 times per day insulin detemir 60 Units Subcutaneous BID insulin lispro (human) 2-8 Units Subcutaneous Nightly insulin lispro (human) 30 Units Subcutaneous TID AC insulin lispro (human) 4-16 Units Subcutaneous TID AC isosorbide mononitrate 60 mg Oral Daily Lidocaine 2 patch Transdermal Daily losartan 25 mg Oral Daily magnesium hydroxide 30 mL Oral Daily metoprolol 25 mg Oral Nightly pregabalin 75 mg Oral TID senna-docusate 1 tablet Oral Nightly Continuous Infusions PRN Medications acetaminophen OR acetaminophen OR acetaminophen, albuterol, aluminum-magnesium hydr oxide-simethicone, clonazePAM, dextrose, dextrose, HYDROmorphone, LORazepam, magnesium sulfa te OR magnesium sulfate OR magnesium sulfate, oxyCODONE OR oxyCODONE OR oxyC ODONE, potassium chloride OR potassium chloride OR potassium chloride HOME MEDS: Prior to Admission medications Medication Sig Start Date End Date Taking? Authorizing Provider aspirin 81 MG tablet Take 81 mg by mouth daily. Last dose Saturday due to lung biopsy toda y Yes Historical Provider atorvastatin (LIPITOR) 40 MG tablet Take 1 tablet by mouth nightly. 03/13/17 03/13/18 Yes Christina mayer PRICE Babcock clopidogrel (PLAVIX) 75 MG tablet Take 1 tablet by mouth daily. 03/13/17 Yes PRICE Serrato furosemide (LASIX) 40 MG tablet Take 1 tablet by mouth daily. 03/13/17 03/13/18 Yes PRICE Silvestre albuterol (PROVENTIL HFA;VENTOLIN HFA) 108 (90 BASE) MCG/ACT inhaler Inhale 2 puffs into th e lungs every 4 (four) hours as needed for Wheezing. Historical Provider gemfibrozil (LOPID) 600 MG tablet Take 1 tablet by mouth 2 (two) times daily before meals. 03/13/17 03/13/18 PRICE Silvestre insulin aspart (NOVOLOG) 100 UNIT/ML injection Inject 45 Units into the skin 3 (three) time s daily before meals. With meals Historical Provider insulin detemir (LEVEMIR) 100 UNIT/ML injection Inject 60 Units into the skin 2 (two) times daily. Historical Provider isosorbide mononitrate (IMDUR) 60 MG 24 hr tablet Take 1 tablet by mouth daily. TO REPLACE IMDUR 30 MG 06/03/17 06/03/18 PRICE Silvestre losartan (COZAAR) 25 MG tablet Take 1 tablet by mouth daily. 03/13/17 PRICE Silvestre metoprolol (TOPROL-XL) 25 MG 24 hr tablet Take 1 tablet by mouth nightly. 03/13/17 03/13/18 PRICE Silvestre nitroGLYCERIN (NITROSTAT) 0.[address] 1 tablet under the tongue every 5 (five) m inutes as needed for Chest pain. 07/25/16 07/25/17 Pilo Ocampo MD potassium chloride (MICRO-K) 10 MEQ CR capsule Take 1 capsule by mouth daily. 03/13/17 PRICE Silvestre pregabalin (LYRICA) 75 MG capsule Take 75 mg by mouth 3 (three) times daily. Historical Provider LABS: Recent Labs Lab 06/24/17 0507 06/23/17 0529 06/22/17 0424 WBC 12.13* 12.60* 19.39* HGB 10.4* 12.3 13.8 HCT 29.9* 36.2 40.9 PLT 253 285 301 NEUTOPHILPCT 78.83 81.67 77.90 MONOPCT 6.72 7.74 8.81 Recent Labs Lab 06/24/17 0507 06/23/17 0529 06/22/17 0424 06/21/17 0523 06/20/17 0434 06/18/17 0544 NA 136 136 134* < > 139 137 -- 135 K 3.7 4.2 5.0* < > 3.9 4.0 < > 3.5 CL 107 106 103 < > 105 104 -- 97* CO2 25 22* 20* < > 23 23 -- 26 BUN 21 28* 30* < > 20 16 -- 14 CREATININE 0.5 0.7 0.9 < > 0.7 0.7 -- 0.8 PROT -- -- -- -- 7.2 7.0 -- 7.9 BILITOT -- -- -- -- 0.2 0.2 -- 0.3 ALT -- -- -- -- 10 16 -- 14 AST -- -- -- -- 13 14 -- 13 GLUCOSE -- -- -- -- -- -- -- 442* < > = values in this interval not displayed. Phosphorus: Lab Results Component Value Date PHOS 2.6 06/20/2017 Invalid input(s): LABALBU Recent Labs Lab 06/24/17 0507 06/23/17 0529 06/22/17 0424 MG 2.3 2.4 1.9 No results for input(s): AMYLASE in the last 168 hours. No results for input(s): PHART, PO2ART, EGQ2GOW, E7GQBYOG, BEART in the last 168 hours. Recent Labs Lab 06/21/17 0523 06/20/17 0434 06/18/17 0544 INR 0.9 0.9 0.9 Recent Labs Lab 06/18/17 0544 TSH 0.483 No results for input(s): CKTOTAL, TROPONINI, TROPONINT, CKMBINDEX in the last 168 hours. Current Labs: PT/INR: Lab Results Component Value Date INR 0.9 06/21/2017 HgBA1c: Lab Results Component Value Date HGBA1C 10.9 (H) 06/23/2017 LABGLYC 266 06/23/2017 IMAGIN06/24/17: CXR 1 View: PLAN: - Resp: Home O2 eval today, wean O2 as tolerated/ acapella today. - pain: cont' current prn regiment, added ativan prn. - Uncontrolled DM: increase SSI; cont' to monitor, needs f/u w/ PCP as outpt. - pt takes 60 u levemir bid and 45 u before meals at home, DM educator to see today. -Capable of D/C home this afternoon depending on if needs Home O2/ and if they can get the supplies here. Greatly appreciate the excellent care of the [facility] team for this patient. The patient has been seen and the plan discussed with the attending provider, Dr. Sheri Lara PA-C 06/24/2017 7:38 AM onversion Transaction, Provider Unknown - 06/23/2017 6:09 PM PDTFormatting of this note might be dif ferent from the original. Nurse Progress Note by Belkis Merino RN at 06/23/171808 Author: Belkis Merino RN Service: (none) Author Type: Registered Nurse Filed: 06/23/171812 Date of Service: 06/23/171808 Status: Signed Indian Trader: Belkis Merino RN (Registered Nurse) Chest tube out this shift and Endotool discontinued. Blood sugars in the mid to high 200's. Continues to require Dilaudid and Oxycodone, plus Tylenol for pain control. XLg BM this mallory ft. Ambulating around room and out in to corral with family. BIPAP at bedside, as is daughter .Voiding QS. VSS with pressures in the 90's-100's systolic. Currently sleeping. Called to emma woodruff scheduled 40 units of humalog that was ordered at meals. ST on the monitor. Will sienna nue to monitor. Belkis Mreino RN 06/23/17 @ 1812 Starr Burgos MD - 06/23/2017 3:31 PM PDT Progress Notes by Starr Smith MD at 06/23/17 1531 Author: Starr Smith MD Service: Hospitalist Author Type: Physician Filed: 06/23/17 4146 Date of Service: 06/23/17 1531 Status: Addendum Indian Trader: Starr Smith MD (Physician) Related Notes: Original Note by Starr Smith MD (Physician) filed at 06/23/17 1538 [facility] Service: Hospitalist Progress Note Pt: Nancy Terrazas AGE/SEX: 46 y.o. female ROOM: [address] [place] [address] : 1970 PCP: Yuriy Cardenas ADMIT DATE: 06/18/2017 TODAY'S DATE: 06/23/2017 Hospital Day/Hospital Course: LOS: 5 days SUBJECTIVE: Patient seen and examine. Complaint of chest wound pain following surgery, 07/11 today but s he had episode of sharp chest pain on left side close to chest tube yesterday that improved with Dilaudid. She said she had urinary incontinency that never happened to her before. Scheduled Medications: acetaminophen 650 mg Oral 4 times per day aspirin 81 mg Oral Daily atorvastatin 40 mg Oral Nightly ceFAZolin 1 g Intravenous Q8H clopidogrel 75 mg Oral Daily docusate sodium 100 mg Oral BID famotidine 20 mg Oral BID Or famotidine 20 mg Intravenous BID ibuprofen 400 mg Oral 4 times per day insulin detemir 21 Units Subcutaneous BID insulin lispro (human) 12 Units Subcutaneous TID AC insulin lispro (human) 2-8 Units Subcutaneous Nightly insulin lispro (human) 4-16 Units Subcutaneous TID AC isosorbide mononitrate 60 mg Oral Daily Lidocaine 2 patch Transdermal Daily losartan 25 mg Oral Daily magnesium hydroxide 30 mL Oral Daily metoprolol 25 mg Oral Nightly pregabalin 75 mg Oral TID senna-docusate 1 tablet Oral Nightly Continuous Infusions PRN Medications acetaminophen OR acetaminophen OR acetaminophen, albuterol, aluminum-magnesium hydr oxide-simethicone, clonazePAM, dextrose, dextrose, HYDROmorphone, LORazepam, magnesium sulfa te OR magnesium sulfate OR magnesium sulfate, ondansetron, oxyCODONE OR oxyCODON E OR oxyCODONE, potassium chloride OR potassium chloride OR potassium chloride Allergy: Allergies Allergen Reactions Latex Hives Sulfa Antibiotics Rash Codeine Nausea and Vomiting Lisinopril Cough OBJECTIVE: Vitals: Temp: [98.1 F (36.7 C)-98.5 F (36.9 C)] 98.5 F (36.9 C) Heart Rate: [85-99] 99 Resp: [14-18] 14 BP: (92-100)/(52-61) 92/52 I&O Detailed Table: Intake/Output Summary (Last 24 hours) at 06/23/17 1531 Last data filed at 06/23/17 1300 Gross per 24 hour Intake 2234.06 ml Output 1000 ml Net 1234.06 ml Patient Vitals for the past 96 hrs: Weight 06/23/17 0555 95.6 kg (210 lb 12.2 oz) 06/22/17 0538 94 kg (207 lb 3.7 oz) Physical Examination: Constitutional: Alert and oriented to person, place, and time. HEENT: Neck supple, no JVD, non icteric sclera. Cardiovascular: Normal rate, regular rhythm, normal heart sounds with S1 and S2, and intact distal pulses. Exam reveals no gallop and no friction rub. No murmur heard. Pulmonary/Chest: . No respiratory distress. no wheezes. no rales. Chest tube in place. Abdominal: Soft. Bowel sounds are normal. exhibits no distension and no mass. There is no t enderness. There is no rebound and no guarding. Extremeties/Musculoskeletal: Normal range of motion.exhibits no tenderness. exhibits no ed cony. Normal equal peripheral pulses. Neurological: Alert and oriented to person, place, and time. No cranial nerve deficit. E xhibits normal muscle tone. No gross motor deficits. Skin: Skin is warm. No pallor. Patient has normal capillary refill, no mottling. Psychiatric: Has a normal mood and affect. Behavior is normal. Judgment normal. LABS: Recent Labs Lab 06/23/17 0529 06/22/1742306/21/17171306/21/17 0523 WBC 12.60* 19.39* 33.02* 8.41 HGB 12.3 13.8 14.8 13.5 HCT 36.2 40.9 46.2* 39.9 PLT 285 301 318 247 NEUTOPHILPCT 81.67 77.90 -- 47.07 MONOPCT 7.74 8.81 -- 8.18 Recent Labs Lab 06/23/17 0529 06/22/17 0424 06/21/17171306/21/17 0523 06/20/17 0434 06/18/17 0544 NA 136 134* 136 139 137 -- 135 K 4.2 5.0* 5.8* 3.9 4.0 < > 3.5 CL 106 103 106 105 104 -- 97* CO2 22* 20* 20* 23 23 -- 26 BUN 28* 30* 31* 20 16 -- 14 CREATININE 0.7 0.9 1.2* 0.7 0.7 -- 0.8 PROT -- -- -- 7.2 7.0 -- 7.9 BILITOT -- -- -- 0.2 0.2 -- 0.3 ALT -- -- -- 10 16 -- 14 AST -- -- -- 13 14 -- 13 GLUCOSE -- -- -- -- -- -- 442* < > = values in this interval not displayed. Phosphorus: Lab Results Component Value Date PHOS 2.6 06/20/2017 Invalid input(s): LABALBU Recent Labs Lab 06/23/17 0529 06/22/17 0424 06/21/17 1714 MG 2.4 1.9 1.9 No results for input(s): AMYLASE in the last 168 hours. No results for input(s): PHART, PO2ART, YXB5BLR, R7AVDMFS, BEART in the last 168 hours. Recent Labs Lab 06/21/17 0523 06/20/17 0434 06/18/17 0544 INR 0.9 0.9 0.9 Recent Labs Lab 06/18/17 0544 TSH 0.483 No results for input(s): CKTOTAL, TROPONINI, TROPONINT, CKMBINDEX in the last 168 hours.i PROBLEM LIST Principal Problem: Malignant neoplasm of lower lobe of left lung (HCC) Active Problems: Coronary artery disease involving lower [place] coronary artery of [place] heart with angina pect monse (HCC) Essential hypertension Type 2 diabetes mellitus without complication (HCC) S/P drug eluting coronary stent placement ASSESSMENT & PLAN 1. Malignant neoplasm of lower lobe of left lung, no metastasis. s/p left lower lobectomy f or adenocarcinoma, mediastinal lymphadenectomy with no evidence of metastasis, performed by Dr. Noriega on 06/21/2017. continue pain management, IV Dilaudid every 2 hours and oral Oxycodone was added. 2. Coronary artery disease, h/o coronary stent placement, continue ASA, Plavix, Metoprolol, imdur, statin and Losartan. Plavix was held with Integrilin prior to surgery, restarted Plavix 06/22. 3. HTN, continue losartan, metoprolol, furosemide 4. Type 2 diabetes mellitus with hyperglycemia, restarted Levemir 52 units BID and Lispro w ith meals and sliding scale, monitor blood sugar. 5. Chronic back pain, continue pain management. 6. Constipation, Senna/colace 7. DVT prophylaxis, SCD following surgery. Then Heparin. Urinary incontinence, possible due to narcotic use while in the hospital, will follow UA/Cu lture. Starr Smith MD 06/23/2017 3:31 PM Cyndi Jain PA-C - 06/23/2017 6:56 AM PDTFormatting of this note might be different from the nan ginal. Progress Notes by Cyndi Laar PA-C at 06/23/17 0625 Author: Cyndi Lara PA-C Service: Cardiac, Thoracic, and Vascular Surgery [place] Type: Physician Carton Catcher - Certified Filed: 06/23/17 0834 Date of Service: 06/23/17 0656 Status: Attested Indian Trader: Cyndi Lara PA-C (Physician Carton Catcher - Certified) Cosigner: Pardeep montalvo MD at 06/23/17 2153 Attestation signed by Pardeep Zamora MD at 06/23/17 1553 Patient was seen, examined, labs, x-rays, treatment plan reviewed. Cardiothoracic Surgery Progress Note Pt: Nancy Terrazas AGE/SEX: 46 y.o. female : 1970 ROOM: 4457/4457-1 ADMIT DATE: 06/18/2017 Hospital Day: LOS: 5 days Surgery/Procedure: 06/22/17 - VATS assisted left lower lobectomy - Mediastinal lymphadenectomy (LN stations 5,6,7,9, and 10) Post-Op Day: 2 Days Post-Op SUBJECTIVE: The patient is a 46 y.o. female with significant past medical history of CAD wi th multiple stents, HTN, DM, long history of tobacco use but states she quit about 8-9 weeks ago who presents as a direct admit for eventual left lower lobe surgery from the [facility] surgery team. The patient had a biopsy done of the lung lesion on 2/22/18 and the patho logy showed well differentiated adeno CA. Patient was referred to cardiothoracic surgery and was evaluated. She underwent testing [facility] PFT and a cardiology follow up prior to her admission in preparation for surgery. Overnight ASSESSMENT: HD Stable, NSR CT 230mL overnight and 500mL/24h CXR below uncontrolled DM, stable on EndoTool; ready t o transition. C/o a lot of pain overnight/ this am/ meds i ncreased yesterday/ and then changed overnight. + anxiety component. PROBLEM LIST Principal Problem: Malignant neoplasm of lower lobe of left lung (HCC) Active Problems: Coronary artery disease involving lower [place] coronary artery of lower [place] heart with angina pect monse (HCC) Essential hypertension Type 2 diabetes mellitus without complication (HCC) S/P drug eluting coronary stent placement OBJECTIVE: Vital Signs: BP 99/60 (BP Location: Left upper arm) | Pulse 94 | Temp 98.4 F (36.9 C) (Oral) | Re sp 18 | Ht 1.651 m (5' 5") | Wt 95.6 kg (210 lb 12.2 oz) | SpO2 93% | ? No | BMI 35.07 kg/m Temp: [97.6 F (36.4 C)-98.4 F (36.9 C)] 98.4 F (36.9 C) (06/23 402) BP: (99-128)/(57-74) 99/60 (06/23 402) Heart Rate: [85-100] 94 (06/23 402) Resp: [16-18] 18 (06/23 402) SpO2: [93 %-97 %] 93 % (06/23 402) Weight: [95.6 kg (210 lb 12.2 oz)] 95.6 kg (210 lb 12.2 oz) (06/23 554) PE: GENERAL: Pt lying in bed, A&O x3, NAD NEURO: PERRLA, EOMI; no facial asymmetry, speech normal and non pressured. Normal ROM. SKIN: Thoracoscopy incision dressing is C/D/I. Chest tube present incision C/D/I. No erythe ma, edema/inflammation, discharge, or warmth noted around the incision site. HEART: RRR w/normal S1/S2. No murmur, rub, heave, or gallop noted. LUNGS: Lungs are CTA w/o wheezing, crackles, or rhonchi. Dim bases. ABDOMEN: Soft, nondistended, nontender. BS active. No masses or organomegaly noted. DATA: Scheduled Medications acetaminophen 650 mg Oral 4 times per day aspirin 81 mg Oral Daily atorvastatin 40 mg Oral Nightly ceFAZolin 1 g Intravenous Q8H clopidogrel 75 mg Oral Daily docusate sodium 100 mg Oral BID famotidine 20 mg Oral BID Or famotidine 20 mg Intravenous BID ibuprofen 400 mg Oral 4 times per day isosorbide mononitrate 60 mg Oral Daily Lidocaine 2 patch Transdermal Daily losartan 25 mg Oral Daily magnesium hydroxide 30 mL Oral Daily metoprolol 25 mg Oral Nightly pregabalin 75 mg Oral TID senna-docusate 1 tablet Oral Nightly Continuous Infusions dextrose 5 % and 0.45 % NaCl 62 mL/hr at 06/23/17 0227 insulin regular 1 unit/mL 8.5 Units/hr (06/23/17 0603) sodium chloride (IV) 30 mL/hr at 06/22/17 0908 PRN Medications acetaminophen OR acetaminophen OR acetaminophen, albuterol, aluminum-magnesium hydr oxide-simethicone, clonazePAM, dextrose, dextrose, HYDROmorphone, insulin regular 1 unit/mL, LORazepam, magnesium sulfate OR magnesium sulfate OR magnesium sulfate, ondansetron , oxyCODONE OR oxyCODONE OR oxyCODONE, potassium chloride OR potassium chloride OR potassium chloride HOME MEDS: Prior to Admission medications Medication Sig Start Date End Date Taking? Authorizing Provider aspirin 81 MG tablet Take 81 mg by mouth daily. Last dose Saturday due to lung biopsy toda y Yes Historical Provider atorvastatin (LIPITOR) 40 MG tablet Take 1 tablet by mouth nightly. 03/13/17 03/13/18 Yes Mar PRICE King clopidogrel (PLAVIX) 75 MG tablet Take 1 tablet by mouth daily. 03/13/17 Yes PRICE Serrato furosemide (LASIX) 40 MG tablet Take 1 tablet by mouth daily. 03/13/17 03/13/18 Yes PRICE Silvestre albuterol (PROVENTIL HFA;VENTOLIN HFA) 108 (90 BASE) MCG/ACT inhaler Inhale 2 puffs into th e lungs every 4 (four) hours as needed for Wheezing. Historical Provider gemfibrozil (LOPID) 600 MG tablet Take 1 tablet by mouth 2 (two) times daily before meals. 03/13/17 03/13/18 PRICE Silvestre insulin aspart (NOVOLOG) 100 UNIT/ML injection Inject 45 Units into the skin 3 (three) time s daily before meals. With meals Historical Provider insulin detemir (LEVEMIR) 100 UNIT/ML injection Inject 60 Units into the skin 2 (two) times daily. Historical Provider isosorbide mononitrate (IMDUR) 60 MG 24 hr tablet Take 1 tablet by mouth daily. TO REPLACE IMDUR 30 MG 06/03/17 06/03/18 PRICE Silvestre losartan (COZAAR) 25 MG tablet Take 1 tablet by mouth daily. 03/13/17 PRICE Silvestre metoprolol (TOPROL-XL) 25 MG 24 hr tablet Take 1 tablet by mouth nightly. 03/13/17 03/13/18 PRICE Silvestre nitroGLYCERIN (NITROSTAT) 0.[address] 1 tablet under the tongue every 5 (five) m inutes as needed for Chest pain. 07/25/16 07/25/17 Pilo Ocampo MD potassium chloride (MICRO-K) 10 MEQ CR capsule Take 1 capsule by mouth daily. 03/13/17 PRICE Silvestre pregabalin (LYRICA) 75 MG capsule Take 75 mg by mouth 3 (three) times daily. Historical Provider LABS: Recent Labs Lab 06/23/17 0529 06/22/17 0424 06/21/17 1714 06/21/17 0523 WBC 12.60* 19.39* 33.02* 8.41 HGB 12.3 13.8 14.8 13.5 HCT 36.2 40.9 46.2* 39.9 PLT 285 301 318 247 NEUTOPHILPCT 81.67 77.90 -- 47.07 MONOPCT 7.74 8.81 -- 8.18 Recent Labs Lab 06/23/17 0529 06/22/17 0424 06/21/17 1714 06/21/17 0523 06/20/17 0434 06/18/17 0544 NA 136 134* 136 139 137 -- 135 K 4.2 5.0* 5.8* 3.9 4.0 < > 3.5 CL 106 103 106 105 104 -- 97* CO2 22* 20* 20* 23 23 -- 26 BUN 28* 30* 31* 20 16 -- 14 CREATININE 0.7 0.9 1.2* 0.7 0.7 -- 0.8 PROT -- -- -- 7.2 7.0 -- 7.9 BILITOT -- -- -- 0.2 0.2 -- 0.3 ALT -- -- -- 10 16 -- 14 AST -- -- -- 13 14 -- 13 GLUCOSE -- -- -- -- -- -- 442* < > = values in this interval not displayed. Phosphorus: Lab Results Component Value Date PHOS 2.6 06/20/2017 Invalid input(s): LABALBU Recent Labs Lab 06/23/17 0529 06/22/17 0424 06/21/17 1714 MG 2.4 1.9 1.9 No results for input(s): AMYLASE in the last 168 hours. No results for input(s): PHART, PO2ART, JXL7NRM, D3OEOMCW, BEART in the last 168 hours. Recent Labs Lab 06/21/17 0523 06/20/17 0434 06/18/17 0544 INR 0.9 0.9 0.9 Recent Labs Lab 06/18/17 0544 TSH 0.483 No results for input(s): CKTOTAL, TROPONINI, TROPONINT, CKMBINDEX in the last 168 hours. Current Labs: PT/INR: Lab Results Component Value Date INR 0.9 06/21/2017 HgBA1c: Lab Results Component Value Date HGBA1C 10.9 (H) 06/23/2017 LABGLYC 266 06/23/2017 IMAGIN06/23/17: CXR 1 View: FINDINGS:The patient is again noted to be status post left lobectomy with left ches t drain in stable position. Stable opacification of the left hemithorax. Slight interval dec rease in opacification of the right hemithorax, likely representing decreasing pulmonary vas cular congestion/decreasing pulmonary edema. No pleural effusion. No pneumothorax. Stable ap pearance of the cardiomediastinal silhouette. Stable appearance of the osseous structures. IMPRESSION: 1. The patient is again noted to be status post left lobectomy with left chest drain in stable position. Stable opacification of the left hemithorax. 2. Slight interval decrease in opacification of the right hemithorax, likely representin g decreasing pulmonary vascular congestion/decreasing pulmonary edema. 3. No pleural effusion. No pneumothorax PLAN: - consider CT removal this afternoon, if removed will get a 2 view CXR tomorrow. - pain: cont' current prn regiment, added ativan prn. - Uncontrolled DM: transition to SSI; cont' to monitor, needs f/u w/ PCP as outpt. Greatly appreciate the excellent care of the 4RP team for this patient. The patient has been seen and the plan discussed with the attending provider, Dr. Noah Lara PA-C 06/23/2017 6:56 AM onversion Transaction, Provider Unknown - 06/22/2017 9:34 PM PDTFormatting of this note might be dif ferent from the original. Nurse Progress Note by Kelly Mckeon RN at 06/22/172133 Author: Kelly Mckeon RN Service: (none) Author Type: Registered Nurse Filed: 06/22/172134 Date of Service: 06/22/172133 Status: Signed Indian Trader: Kelly Mckeon RN (Registered Nurse) Pt is nausea and emesis x2 after Fentanyl dose. Pt stated "I vomited after the dose I had t his morning too." Notified hospitalist Dr. Graham. PRN IV pain medications orders changed; see orders. WCM. KELLY MCKEON RN onver [place] Transaction, Provider Unknown - 06/22/2017 6:54 PM PDT Nurse Progress Note by SN Walker at 06/22/171853 Author: SN Walker Service: (none) Author Type: Framer Filed: 06/22/171856 Date of Service: 06/22/171853 Status: Signed Indian Trader: SN Walker (Framer) Patient's pain is now under control. Patient reports a pain of 3/10 with oxycodone. Patient had 270 output for the chest drainage. Starr Burgos MD - 06/22/2017 8:47 AM PDT Progress Notes by Starr Smith MD at 06/22/17846 Author: Starr Smith MD Service: Hospitalist Author Type: Physician Filed: 06/22/17 396 Date of Service: 06/22/17846 Status: Signed Indian Trader: Starr Smith MD (Physician) [facility] Service: Hospitalist Progress Note Pt: Nancy Terrazas AGE/SEX: 46 y.o. female ROOM: [facility]7/4457-1 : 1970 PCP: Yuriy Cardenas ADMIT DATE: 06/18/2017 TODAY'S DATE: 06/22/2017 Hospital Day/Hospital Course: LOS: 4 days SUBJECTIVE: Patient seen and examine. Complaint of chest wound pain following surgery, 10/11 requesting to have Oxycodone for pain, she was informed that she can have Dilaudid every 2 hours. Scheduled Medications: acetaminophen 650 mg Oral 4 times per day aspirin 81 mg Oral Daily atorvastatin 40 mg Oral Nightly ceFAZolin 1 g Intravenous Q8H clopidogrel 75 mg Oral Daily docusate sodium 100 mg Oral BID famotidine 20 mg Oral BID Or famotidine 20 mg Intravenous BID ibuprofen 400 mg Oral 4 times per day isosorbide mononitrate 60 mg Oral Daily Lidocaine 2 patch Transdermal Daily losartan 25 mg Oral Daily magnesium hydroxide 30 mL Oral Daily metoprolol 25 mg Oral Nightly pregabalin 75 mg Oral TID senna-docusate 1 tablet Oral Nightly Continuous Infusions dextrose 5 % and 0.45 % NaCl 62 mL/hr at 06/22/17 1139 insulin regular 1 unit/mL 7 Units/hr (06/22/17 1618) sodium chloride (IV) 30 mL/hr at 06/22/17 0908 PRN Medications acetaminophen OR acetaminophen OR acetaminophen, albuterol, aluminum-magnesium hydr oxide-simethicone, clonazePAM, dextrose, dextrose, fentaNYL OR fentaNYL, insulin regular 1 unit/mL, magnesium sulfate OR magnesium sulfate OR magnesium sulfate, ondansetron , oxyCODONE OR oxyCODONE OR oxyCODONE, potassium chloride OR potassium chloride OR potassium chloride Allergy: Allergies Allergen Reactions Latex Hives Sulfa Antibiotics Rash Codeine Nausea and Vomiting Lisinopril Cough OBJECTIVE: Vitals: Temp: [97 F (36.1 C)-98.9 F (37.2 C)] 98 F (36.7 C) Heart Rate: [90-102] 94 Resp: [16-18] 17 BP: (87-159)/(52-74) 112/69 Arterial Line BP: (102-117)/(64-69) 102/64 FiO2 : [25 %] 25 % I&O Detailed Table: Intake/Output Summary (Last 24 hours) at 06/22/17 1654 Last data filed at 06/22/17 1456 Gross per 24 hour Intake 1756.02 ml Output 2000 ml Net -243.98 ml Patient Vitals for the past 96 hrs: Weight 06/22/17 0538 94 kg (207 lb 3.7 oz) Physical Examination: Constitutional: Alert and oriented to person, place, and time. HEENT: Neck supple, no JVD, non icteric sclera. Cardiovascular: Normal rate, regular rhythm, normal heart sounds with S1 and S2, and intact distal pulses. Exam reveals no gallop and no friction rub. No murmur heard. Pulmonary/Chest: . No respiratory distress. no wheezes. no rales. Abdominal: Soft. Bowel sounds are normal. exhibits no distension and no mass. There is no t enderness. There is no rebound and no guarding. Extremeties/Musculoskeletal: Normal range of motion.exhibits no tenderness. exhibits no ed cony. Normal equal peripheral pulses. Neurological: Alert and oriented to person, place, and time. No cranial nerve deficit. E xhibits normal muscle tone. No gross motor deficits. Skin: Skin is warm. No pallor. Patient has normal capillary refill, no mottling. Psychiatric: Has a normal mood and affect. Behavior is normal. Judgment normal. LABS: Recent Labs Lab 06/22/1742306/21/17171306/21/1752206/20/174 WBC 19.39* 33.02* 8.41 9.50 HGB 13.8 14.8 13.5 13.6 HCT 40.9 46.2* 39.9 40.6 PLT 301 318 247 269 NEUTOPHILPCT 77.90 -- 47.07 48.26 MONOPCT 8.81 -- 8.18 8.87 Recent Labs Lab 06/22/1742306/21/17171306/21/1752206/20/1743306/18/17 0544 NA 134* 136 139 137 -- 135 K 5.0* 5.8* 3.9 4.0 < > 3.5 CL 103 106 105 104 -- 97* CO2 20* 20* 23 23 -- 26 BUN 30* 31* 20 16 -- 14 CREATININE 0.9 1.2* 0.7 0.7 -- 0.8 PROT -- -- 7.2 7.0 -- 7.9 BILITOT -- -- 0.2 0.2 -- 0.3 ALT -- -- 10 16 -- 14 AST -- -- 13 14 -- 13 GLUCOSE -- -- -- -- -- 442* < > = values in this interval not displayed. Phosphorus: Lab Results Component Value Date PHOS 2.6 06/20/2017 Invalid input(s): LABALBU Recent Labs Lab 06/22/1742306/21/17171306/21/17 0523 MG 1.9 1.9 1.7 No results for input(s): AMYLASE in the last 168 hours. No results for input(s): PHART, PO2ART, SKK5REM, Y8CDWTNP, BEART in the last 168 hours. Recent Labs Lab 06/21/1752206/20/1743318 0544 INR 0.9 0.9 0.9 Recent Labs Lab 06/18/17 0544 TSH 0.483 No results for input(s): CKTOTAL, TROPONINI, TROPONINT, CKMBINDEX in the last 168 hours.i PROBLEM LIST Principal Problem: Malignant neoplasm of lower lobe of left lung (HCC) Active Problems: Coronary artery disease involving lower [place] coronary artery of [place] heart with angina pect monse (HCC) Essential hypertension Type 2 diabetes mellitus without complication (HCC) S/P drug eluting coronary stent placement ASSESSMENT & PLAN 1. Malignant neoplasm of lower lobe of left lung, no metastasis. s/p left lower lobectomy f or adenocarcinoma, mediastinal lymphadenectomy with no evidence of metastasis, performed by Dr. Noriega on 06/21/2017. continue pain management, IV Dilaudid and oral Oxycodone was added. 2. Coronary artery disease, h/o coronary stent placement, continue ASA, Plavix, Metoprolol, imdur, statin and Losartan. Plavix was held with Integrilin prior to surgery, restarted Plavix 06/22. 3. HTN, continue losartan, metoprolol, furosemide 4. Type 2 diabetes mellitus with hyperglycemia, currently on insulin infusion, will evaluat e to restart Sq Levemir and Lispro. 5. Chronic back pain, continue pain management. 6. Constipation, Senna/colace 7. DVT prophylaxis, SCD following surgery. Then Heparin. Starr Smith MD 06/22/2017 4:54 PM Cyndi Jain PA-C - 06/22/2017 7:36 AM PDTFormatting of this note might be different from the nan ginal. Progress Notes by Cyndi Lara PA-C at 06/22/17 0736 Author: Cyndi Lara PA-C Service: Cardiac, Thoracic, and Vascular Surgery [place] Type: Physician Carton Catcher - Certified Filed: 06/22/17 0900 Date of Service: 06/22/17735 Status: Attested Indian Trader: Cyndi Lara PA-C (Physician Carton Catcher - Certified) Cosigner: Pardeep montalvo MD at 06/22/17 09 Attestation signed by Pardeep Zamora MD at 06/22/17 09 Patient was seen, examined, labs, x-rays, treatment plan reviewed. Cardiothoracic Surgery Progress Note Pt: Nancy Terrazas AGE/SEX: 46 y.o. female : 1970 ROOM: [address] [place] [address] ADMIT DATE: 06/18/2017 Hospital Day: LOS: 4 days Surgery/Procedure: 06/22/17 - VATS assisted left lower lobectomy - Mediastinal lymphadenectomy (LN stations 5,6,7,9, and 10) Post-Op Day: 1 Day Post-Op SUBJECTIVE: The patient is a 46 y.o. female with significant past medical history of CAD wi th multiple stents, HTN, DM, long history of tobacco use but states she quit about 8-9 weeks ago who presents as a direct admit [facility]. The patient had a biopsy done of the lung lesion on 04/25/17 and the patho logy showed well differentiated adeno CA. Patient was referred to cardiothoracic surgery and was evaluated. She underwent testing inc luding PFT and a cardiology follow up prior to her admission in preparation for surgery. Overnight ASSESSMENT: HD Stable, NSR CT 450mL overnight and 500 since surg CXR below, large gas bubble noted. Hyperglycemia; uncontrolled DM Leukocytosis improving. C/o of pain this am. PROBLEM LIST Principal Problem: Malignant neoplasm of lower lobe of left lung (HCC) Active Problems: Coronary artery disease involving lower [place] coronary artery of [place] heart with angina pect monse (HCC) Essential hypertension Type 2 diabetes mellitus without complication (HCC) S/P drug eluting coronary stent placement OBJECTIVE: Vital Signs: BP 119/74 | Pulse 101 | Temp 98.4 F (36.9 C) (Temporal) | Resp 18 | Ht 1.651 m (5' 5") | Wt 94 kg (207 lb 3.7 oz) | SpO2 93% | ? No | BMI 34.49 kg/m Temp: [97 F (36.1 C)-98.9 F (37.2 C)] 98.4 F (36.9 C) (06/22 317) BP: (87-194)/(49-108) 119/74 (06/22 537) Heart Rate: [90-102] 101 (06/22 537) Resp: [8-30] 18 (06/22 317) SpO2: [93 %-100 %] 93 % (06/22 0500) Weight: [94 kg (207 lb 3.7 oz)] 94 kg (207 lb 3.7 oz) (06/22 537) FiO2 : [25 %-98 %] 25 % (06/21 1703) PE: GENERAL: Pt lying in bed, A&O x3, NAD NEURO: PERRLA, EOMI; no facial asymmetry, speech normal and non pressured. Normal ROM. SKIN: Thoracoscopy incision dressing is C/D/I. Chest tube present incision C/D/I. No erythe ma, edema/inflammation, discharge, or warmth noted around the incision site. HEART: RRR w/normal S1/S2. No murmur, rub, heave, or gallop noted. LUNGS: Lungs are CTA w/o wheezing, crackles, or rhonchi. Dim bases. ABDOMEN: Soft, nondistended, nontender. BS active. No masses or organomegaly noted. DATA: Scheduled Medications aspirin 81 mg Oral Daily atorvastatin 40 mg Oral Nightly ceFAZolin 1 g Intravenous Q8H clopidogrel 75 mg Oral Daily docusate sodium 100 mg Oral BID famotidine 20 mg Oral BID Or famotidine 20 mg Intravenous BID insulin detemir 55 Units Subcutaneous BID insulin lispro (human) 0-14 Units Subcutaneous TID AC insulin lispro (human) 0-7 Units Subcutaneous Nightly insulin lispro (human) 48 Units Subcutaneous TID AC isosorbide mononitrate 60 mg Oral Daily losartan 25 mg Oral Daily magnesium hydroxide 30 mL Oral Daily metoprolol 25 mg Oral Nightly pregabalin 75 mg Oral TID senna-docusate 1 tablet Oral Nightly Continuous Infusions dextrose PRN Medications acetaminophen OR acetaminophen OR acetaminophen, albuterol, aluminum-magnesium hydr oxide-simethicone, clonazePAM, dextrose, dextrose, dextrose, glucagon, glucagon, HYDROcodone -acetaminophen OR HYDROcodone-acetaminophen, HYDROmorphone OR HYDROmorphone, magnesi um sulfate OR magnesium sulfate OR magnesium sulfate, meperidine, ondansetron, potas sium chloride OR potassium chloride OR potassium chloride HOME MEDS: Prior to Admission medications Medication Sig Start Date End Date Taking? Authorizing Provider aspirin 81 MG tablet Take 81 mg by mouth daily. Last dose Saturday due to lung biopsy toda y Yes Historical Provider atorvastatin (LIPITOR) 40 MG tablet Take 1 tablet by mouth nightly. 03/13/17 03/13/18 Yes Mar y PRICE Babcock clopidogrel (PLAVIX) 75 MG tablet Take 1 tablet by mouth daily. 03/13/17 Yes RaniPRICE Feliciano furosemide (LASIX) 40 MG tablet Take 1 tablet by mouth daily. 03/13/17 03/13/18 Yes PRICE Silvestre albuterol (PROVENTIL HFA;VENTOLIN HFA) 108 (90 BASE) MCG/ACT inhaler Inhale 2 puffs into th e lungs every 4 (four) hours as needed for Wheezing. Historical Provider gemfibrozil (LOPID) 600 MG tablet Take 1 tablet by mouth 2 (two) times daily before meals. 03/13/17 03/13/18 PRICE Silvestre insulin aspart (NOVOLOG) 100 UNIT/ML injection Inject 45 Units into the skin 3 (three) time s daily before meals. With meals Historical Provider insulin detemir (LEVEMIR) 100 UNIT/ML injection Inject 60 Units into the skin 2 (two) times daily. Historical Provider isosorbide mononitrate (IMDUR) 60 MG 24 hr tablet Take 1 tablet by mouth daily. TO REPLACE IMDUR 30 MG 06/03/17 06/03/18 PRICE Silvestre losartan (COZAAR) 25 MG tablet Take 1 tablet by mouth daily. 03/13/17 PRICE Silvestre metoprolol (TOPROL-XL) 25 MG 24 hr tablet Take 1 tablet by mouth nightly. 03/13/17 03/13/18 PRICE Silvestre nitroGLYCERIN (NITROSTAT) 0.[address] 1 tablet under the tongue every 5 (five) m inutes as needed for Chest pain. 07/25/16 07/25/17 Pilo Ocampo MD potassium chloride (MICRO-K) 10 MEQ CR capsule Take 1 capsule by mouth daily. 03/13/17 PRICE Silvestre pregabalin (LYRICA) 75 MG capsule Take 75 mg by mouth 3 (three) times daily. Historical Provider LABS: Recent Labs Lab 06/22/1742306/21/17171306/21/1752206/20/174 WBC 19.39* 33.02* 8.41 9.50 HGB 13.8 14.8 13.5 13.6 HCT 40.9 46.2* 39.9 40.6 PLT 301 318 247 269 NEUTOPHILPCT 77.90 -- 47.07 48.26 MONOPCT 8.81 -- 8.18 8.87 Recent Labs Lab 06/22/1742306/21/17171306/21/1752206/20/1743306/18/17 0544 NA 134* 136 139 137 -- 135 K 5.0* 5.8* 3.9 4.0 < > 3.5 CL 103 106 105 104 -- 97* CO2 20* 20* 23 23 -- 26 BUN 30* 31* 20 16 -- 14 CREATININE 0.9 1.2* 0.7 0.7 -- 0.8 PROT -- -- 7.2 7.0 -- 7.9 BILITOT -- -- 0.2 0.2 -- 0.3 ALT -- -- 10 16 -- 14 AST -- -- 13 14 -- 13 GLUCOSE -- -- -- -- -- 442* < > = values in this interval not displayed. Phosphorus: Lab Results Component Value Date PHOS 2.6 06/20/2017 Invalid input(s): LABALBU Recent Labs Lab 06/22/1742306/21/17171306/21/17 0523 MG 1.9 1.9 1.7 No results for input(s): AMYLASE in the last 168 hours. No results for input(s): PHART, PO2ART, XNH8JVW, H3QLNDXO, BEART in the last 168 hours. Recent Labs Lab 06/21/1752206/20/1743306/18/17 0544 INR 0.9 0.9 0.9 Recent Labs Lab 06/18/17 0544 TSH 0.483 No results for input(s): CKTOTAL, TROPONINI, TROPONINT, CKMBINDEX in the last 168 hours. Current Labs: PT/INR: Lab Results Component Value Date INR 0.9 06/21/2017 HgBA1c: Lab Results Component Value Date HGBA1C 11.1 (H) 06/18/2017 LABGLYC 272 06/18/2017 IMAGIN06/22/17: CXR 1 View: Findings: Left pleural drain angle towards the left lung apex is unchanged in positio n. No significant effusion or pneumothorax. The patchy airspace density projected over the left hemithorax appears unchanged persistent mild pulmonary vascular prominence in the right hemithorax no segmental infiltrate. IMPRESSION: 1. Postoperative changes of left lobectomy with life support devices unchanged in positio n. 2. Persistent airspace densities left hemithorax, unchanged. : - CT to waterseal, daily cxr - pain: cont' current prn regiment - leukocytosis, cont' to monitor - Hyperglycemia: put on EndoTool this am. Greatly appreciate the excellent care of the 4RP team for this patient. The patient has been seen and the plan discussed with the attending provider, Dr. Noah Lara PA-C 06/22/2017 7:36 AM onversion Transaction, Provider Unknown - 06/22/2017 4:59 AM PDTFormatting of this note might be dif ferent from the original. Nurse Progress Note by Kelly Mckeon RN at 06/22/17458 Author: Kelly Mckeon RN Service: (none) Author Type: Registered Nurse Filed: 06/22/17458 Date of Service: 06/22/17458 Status: Signed Indian Trader: Kelly Mckeon RN (Registered Nurse) 2129 - Took over care of patient at 2044 last night; report from ADRIENNE Kaur. Pt very agitate d, anxious, and tearful; stated she's in 12/10 pain. Daughter came to bedside around 2100. T his RN helped patient to reposition, gave IV PRN medication, and provided reassurance. Pt st ated her pain was 4/10 after IV pain medication and that was a tolerable level for her. Pt's anxiety level decreased to a minimal amount. Able to release sitter from patient's room. Da ughter staying for the night. Dr. Wade checked on patient at bedside; notified MD about dark terry urine. 0100 - Pt went on short walk in room; pt stated she felt as if she could breath better; pt needed only SBA for ambulation. Pt has been appropriate throughout the rest of this shift and appropriately calls when pain is increasing. YASHIRA MCKEON RN onver mayank Transaction, Provider Unknown - 06/21/2017 6:03 PM PDT Nurse Progress Note by Traci Ohara RN at 06/21/171802 Author: Traci Ohara RN Service: (none) Author Type: Registered Nurse Filed: 06/21/171804 Date of Service: 06/21/171802 Status: Signed Indian Trader: Traci Ohara RN (Registered Nurse) Received pt from market research intern. On arrival to rust pt yelling "I cant breathe" and pulling at bipa p mask and chest tubes. RT present, o2 saturation 90s on bipap. oncology research rn states pt has been p reviously sleeping. Sitter sitting at desk outside of room, this rn did ask sitter to move i nside room. Sitter at doorway. Pt is alox2, with confusion. Pt able to be calmed a little bi t with Verbal reassurance. elaina ac onver mayank Transaction, Provider Unknown - 06/21/2017 5:16 PM PDT Progress Notes by Zainab Pop RPH at 06/21/171715 Author: Zainab Pop RPH Service: Pharmacy Author Type: Pharmacist Filed: 06/21/171715 Date of Service: 06/21/171715 Status: Signed Indian Trader: Zainab Pop RPH (Pharmacist) Clinical Pharmacy Note: Renal Monitoring Nancy Terrazas 46 y.o. female Ht Readings from Last 1 Encounters: 06/18/17 1.651 m (5' 5") Wt Readings from Last 1 Encounters: 06/18/17 89.3 kg (196 lb 13.9 oz) Serum creatinine: 0.7 mg/dL 06/21/17 0523 Estimated creatinine clearance: 110.8 mL/min Pharmacy dosing for renal function per Cyndi Lara PA-C. Currently, there are no medications needing to be adjusted. Pharmacy will continue to monit or for changes in medication orders and in renal function and adjust accordingly. Zainab Pop PharmJulienne 06/21/2017 5:16 PM onver mayank Transaction, Provider Unknown - 06/21/2017 3:28 PM PDT Nurse Progress Note by Mary Grace Smith RN at 06/21/171527 Author: Mary Grace Smith RN Service: Anesthesiology Author Type: Registered Nurse Filed: 06/21/17 153 Date of Service: 06/21/171527 Status: Signed Indian Trader: Mary Grace Smith RN (Registered Nurse) Dr Lobato at bedside ordered A total of 2 mg versed to be given also Dr Lobato gave 20 m g Ketamine respiratory here to set up cpap machine onver mayank Transaction, Provider Unknown - 06/21/2017 6:41 AM PDT Nurse Progress Note by Jocelyn Felix RN at 06/21/17640 Author: Jocelyn Felix RN Service: (none) Author Type: Registered Nurse Filed: 06/21/17640 Date of Service: 06/21/17640 Status: Signed Indian Trader: Jocelyn Felix RN (Registered Nurse) Pt states "I don't want a test". There is no way I am . onver mayank Transaction, Provider Unknown - 06/21/2017 6:40 AM PDT Nurse Progress Note by Natasha Bethea RN at 06/21/1740 Author: Natasha Bethea RN Service: (none) Author Type: Registered Nurse Filed: 06/21/1741 Date of Service: 06/21/17639 Status: Signed Indian Trader: Natasha Bethea RN (Registered Nurse) Report given to pre op nurse. Pt transferred via bed to pre op onver mayank Transaction, Provider Unknown - 06/20/2017 6:52 PM PDT Nurse Progress Note by Pavithra Sewell RN at 06/20/171851 Author: Pavithra Sewell RN Service: (none) Author Type: Registered Nurse Filed: 06/20/171852 Date of Service: 06/20/171851 Status: Signed Indian Trader: Pavithra Sewell RN (Registered Nurse) Integrelin gtt off at [address] Wade. MRSA PCR done, results in chart. PAVITHRA SEWELL RN Rufus Ro MD - 06/20/2017 4:15 PM PDT Progress Notes by Rufus Alvarez MD at 06/20/171614 Author: Rufus Alvarez MD Service: (none) Author Type: Physician Filed: 06/20/17 161 Date of Service: 06/20/17 161 Status: Signed Indian Trader: Rufus Alvarez MD (Physician) [facility] Service: Hospitalist Progress Note Pt: Nancy Terrazas AGE/SEX: 46 y.o. female ROOM: [facility]4457- : 1970 PCP: Yuriy Cardenas ADMIT DATE: 06/18/2017 TODAY'S DATE: 06/20/2017 Hospital Day/Hospital Course: LOS: 2 days 46 y/o F with Pmhx of CAD with multiple stents, HTN DM type 2 , long history of tobacco abu se who quit 9 months ago, lung cancer diagnosed Feb 2017 presented as direct admit for LLL Adeno CA surgery by CT surgery team. She had recent stent placement and has been placed on integrillin. Surgery planned for 06/21 SUBJECTIVE: Patient seen and examined. She denies CP or SOB. Awaiting surgery ASSESSMENT & PLAN First problem in the list is the principal problem: Principal Problem: Malignant neoplasm of lower lobe of left lung (HCC) per report, no metastasis. Surgery is planned for 06/21 Active Problems: Coronary artery disease involving lower elwha coronary artery of lower elwha heart with angina pect monse (HCC) s/p recent stent placement HTN plavix has been held, and pt is on integrillin gtt - continue ASA, statin, losartan, metoprolol, furosemide Type 2 diabetes mellitus with hyperglycemia Continue with ISS , will adjust to high dose, and continue detemir BID as well as incre ase pre meal insulin Dm educator consult for a1c of 11.1 Chronic back pain continue home norco regimen Constipation Senna/colace Scheduled Medications: aspirin 81 mg Oral Daily atorvastatin 40 mg Oral Nightly furosemide 40 mg Oral Daily gemfibrozil 600 mg Oral BID AC insulin detemir 55 Units Subcutaneous BID insulin lispro (human) 0-14 Units Subcutaneous TID AC insulin lispro (human) 0-7 Units Subcutaneous Nightly insulin lispro (human) 45 Units Subcutaneous TID AC isosorbide mononitrate 60 mg Oral Daily losartan 25 mg Oral Daily metoprolol 25 mg Oral Nightly pregabalin 75 mg Oral TID Continuous Infusions dextrose eptifibatide 0.75 mg/mL 2 mcg/kg/min (06/20/17 1516) PRN Medications albuterol, clonazePAM, dextrose, dextrose, dextrose, glucagon, glucagon, HYDROcodone-acetam inophen, magnesium sulfate OR magnesium sulfate OR magnesium sulfate, nitroGLYCERIN, ondansetron OR ondansetron, polyethylene glycol, potassium OR potassium OR pota ssium OR potassium chloride OR potassium chloride OR potassium chloride, potassi um chloride OR potassium chloride OR potassium chloride, zolpidem Allergy: Allergies Allergen Reactions Latex Hives Sulfa Antibiotics Rash Codeine Nausea and Vomiting Lisinopril Cough OBJECTIVE: Vitals: Patient Vitals for the past 24 hrs: BP Temp Temp src Pulse Resp SpO2 06/20/17 1121 95/54 97.9 F (36.6 C) Oral 112 17 96 % 06/20/17 0813 104/62 98.1 F (36.7 C) Oral 76 16 93 % 06/20/17 0316 95/61 98.2 F (36.8 C) Oral 78 16 94 % 06/19/17 2300 (!) 88/49 98.3 F (36.8 C) Oral 79 16 95 % 06/19/17 2128 117/68 - - 65 - - 06/19/17 1921 98/60 98 F (36.7 C) Oral 80 16 96 % I&O Detailed Table: Intake/Output Summary (Last 24 hours) at 06/20/17 1615 Last data filed at 06/20/17 0638 Gross per 24 hour Intake 993.49 ml Output 1900 ml Net -906.51 ml Patient Vitals for the past 96 hrs: Weight 06/18/17 0413 89.3 kg (196 lb 13.9 oz) Hemodynamics Last 24hrs: Physical Examination: Constitutional: Alert and mentating well. No acute respiratory distress. Obese HEENT: moist mucous membranes, pink conjunctivae and anicteric sclerae. No JVD. Neck s upple Cardiovascular: Normal rate and rhythm. . No appreciable murmurs. Pulmonary: Non labored breathing. Breath sounds are clear bilaterally. No wheezing or rale s. Abdominal: Soft and non-tender. Bowel sounds are present. No rebound or guarding. No CVA tenderness Extremities: No edema or cyanosis. Neurological: AAO x3. No CN deficit. Grossly non focal. Skin: No diaphoresis Psychiatric: Normal mood and affect. Normal judgment and behavior. LABS: Recent Labs Lab 06/20/17 0434 06/18/17 0544 WBC 9.50 12.41* HGB 13.6 14.5 HCT 40.6 42.1 PLT 269 253 NEUTOPHILPCT 48.26 63.54 MONOPCT 8.87 8.11 Recent Labs Lab 06/20/17 0434 06/20/17 0052 06/19/17195106/18/17 0544 NA 137 -- -- 135 K 4.0 3.9 3.5 3.5 CL 104 -- -- 97* CO2 23 -- -- 26 BUN 16 -- -- 14 CREATININE 0.7 -- -- 0.8 PROT 7.0 -- -- 7.9 BILITOT 0.2 -- -- 0.3 ALT 16 -- -- 14 AST 14 -- -- 13 GLUCOSE -- -- -- 442* Phosphorus: Lab Results Component Value Date PHOS 2.6 06/20/2017 Invalid input(s): LABALBU Recent Labs Lab 06/20/1743306/19/17195106/18/17 0544 MG 1.9 1.9 1.6* No results for input(s): AMYLASE in the last 168 hours. No results for input(s): PHART, PO2ART, WOI2PDK, Y3OKFBKQ, BEART in the last 168 hours. Recent Labs Lab 06/20/17 04306/18/17 0544 INR 0.9 0.9 Recent Labs Lab 06/18/17 0544 TSH 0.483 No results for input(s): CKTOTAL, TROPONINI, TROPONINT, CKMBINDEX in the last 168 hours. PROBLEM LIST Principal Problem: Malignant neoplasm of lower lobe of left lung (HCC) Active Problems: Coronary artery disease involving lower el[place]a coronary artery of lower [place] heart with angina pect monse (HCC) Essential hypertension Type 2 diabetes mellitus without complication (HCC) S/P drug eluting coronary stent placement More than 25 mins were spent on the review of H/P, imaging and labs, formulation of assessm ent and plan, discussion with the patient/family, staff and providers. RUFUS ALVAREZ MD 06/20/2017 4:15 PM onversion Transac tion, Provider Unknown - 06/20/2017 9:00 AM PDTFormatting of this note might be different f rom the original. Nurse Progress Note by Pavithra Sewell RN at 06/20/17 0900 Author: Pavithra Sewell RN Service: (none) Author Type: Registered Nurse Filed: 06/20/17 1545 Date of Service: 06/20/17 09 Status: Signed Indian Trader: Pavithra Sewell RN (Registered Nurse) Dr. Wade at the bedside for consent- all questions addressed. Consent signed and in fron t of chart. PAVITHRA SEWELL RN onver mayank Transaction, Provider Unknown - 06/19/2017 11:13 AM PDT Case Management by Hollie Rodriguez RN at 06/19/171112 Author: Hollie Rodriguez RN Service: (none) Author Type: Registered Nurse Filed: 06/19/171112 Date of Service: 06/19/171112 Status: Signed Indian Trader: Hollie Rodriguez RN (Registered Nurse) CM attended AM rounds: pt pre-op lobectomy scheduled for 06/21. CM continuing to follow. No d/c needs noted as of now. Hollie Rodriguez Rufus Ro MD - 06/19/2017 8:53 AM PDT Progress Notes by Rufus Alvarez MD at 06/19/17852 Author: Rufus Alvarez MD Service: (none) Author Type: Physician Filed: 06/19/17 1533 Date of Service: 06/19/17 0853 Status: Addendum Indian Trader: Rufus Alvarez MD (Physician) Related Notes: Original Note by Rufus Alvarez MD (Physician) filed at 06/19/17 0912 [facility] Service: Hospitalist Progress Note Pt: Nancy Terrazas AGE/SEX: 46 y.o. female ROOM: 4457/4457-1 : 1970 PCP: Yuriy Cardenas ADMIT DATE: 06/18/2017 TODAY'S DATE: 06/19/2017 Hospital Day/Hospital Course: LOS: 1 day 46 y/o F with Pmhx of CAD with multiple stents, HTN DM type 2 , long history of tobacco abu se who quit 9 months ago, lung cancer diagnosed Feb 2017 presented as direct admit for LLL [place]eno CA surgery by CT surgery team. She had recent stent placement and has been placed on integrillin. Surgery planned for 06/21 SUBJECTIVE: Patient seen and examined. She denies CP or SOB. She reports back pain is under control wit h her home regimen of norco ASSESSMENT & PLAN First problem in the list is the principal problem: Principal Problem: Malignant neoplasm of lower lobe of left lung (HCC) per report, no metastasis. Surgery is planned for 06/21 Active Problems: Coronary artery disease involving lower elwha coronary artery of lower el[place]a heart with angina pect monse (HCC) s/p recent stent placement HTN plavix has been held, and pt is on integrillin gtt - continue ASA, statin, losartan, metoprolol, furosemide Type 2 diabetes mellitus with hyperglycemia Continue with ISS , will adjust to high dose, and continue detemir BID as well as pre m eal insulin Dm educator consult for a1c of 11.1 Chronic back pain continue home norco regimen Hypomagnesemia Replete Scheduled Medications: aspirin 81 mg Oral Daily atorvastatin 40 mg Oral Nightly furosemide 40 mg Oral Daily gemfibrozil 600 mg Oral BID AC insulin detemir 52 Units Subcutaneous BID insulin lispro (human) 0-10 Units Subcutaneous TID AC insulin lispro (human) 0-5 Units Subcutaneous Nightly insulin lispro (human) 20 Units Subcutaneous TID AC isosorbide mononitrate 60 mg Oral Daily losartan 25 mg Oral Daily metoprolol 25 mg Oral Nightly pregabalin 75 mg Oral TID Continuous Infusions dextrose eptifibatide 0.75 mg/mL 2 mcg/kg/min (06/19/17 0528) PRN Medications albuterol, dextrose, dextrose, dextrose, glucagon, glucagon, HYDROcodone-acetaminophen, mag nesium sulfate OR magnesium sulfate OR magnesium sulfate, magnesium sulfate OR m agnesium sulfate OR magnesium sulfate, nitroGLYCERIN, ondansetron OR ondansetron, po lyethylene glycol, potassium OR potassium OR potassium OR potassium chloride O R potassium chloride OR potassium chloride, potassium chloride OR potassium chlori de OR potassium chloride, zolpidem Allergy: Allergies Allergen Reactions Latex Hives Sulfa Antibiotics Rash Codeine Nausea and Vomiting Lisinopril Cough OBJECTIVE: Vitals: Patient Vitals for the past 24 hrs: BP Temp Temp src Pulse Resp SpO2 06/19/17 0740 103/57 98.2 F (36.8 C) Oral 72 16 93 % 06/19/17 0252 97/63 97.8 F (36.6 C) Oral 77 16 99 % 06/18/17 2340 94/53 98 F (36.7 C) Oral 74 16 94 % 06/18/17 1917 101/60 98.3 F (36.8 C) Oral 81 16 97 % 06/18/17 1542 97/59 97.5 F (36.4 C) Axillary 93 16 94 % 06/18/17 1151 107/60 97.5 F (36.4 C) Oral 88 16 95 % 06/18/17 0933 111/66 - - 86 - - I&O Detailed Table: Intake/Output Summary (Last 24 hours) at 06/19/17 0853 Last data filed at 06/19/17 0744 Gross per 24 hour Intake 2540 ml Output 1600 ml Net 940 ml Patient Vitals for the past 96 hrs: Weight 06/18/17 0413 89.3 kg (196 lb 13.9 oz) Hemodynamics Last 24hrs: Physical Examination: Constitutional: Alert and mentating well. No acute respiratory distress. Obese HEENT: moist mucous membranes, pink conjunctivae and anicteric sclerae. No JVD. Neck s upple Cardiovascular: Normal rate and rhythm. . No appreciable murmurs. Pulmonary: Non labored breathing. Breath sounds are clear bilaterally. No wheezing or rale s. Abdominal: Soft and non-tender. Bowel sounds are present. No rebound or guarding. No CVA tenderness Extremities: No edema or cyanosis. Neurological: AAO x3. No CN deficit. Grossly non focal. Skin: No diaphoresis Psychiatric: Normal mood and affect. Normal judgment and behavior. LABS: Recent Labs Lab 06/18/17 0544 WBC 12.41* HGB 14.5 HCT 42.1 PLT 253 NEUTOPHILPCT 63.54 MONOPCT 8.11 Recent Labs Lab 06/18/17 0544 NA 135 K 3.5 CL 97* CO2 26 BUN 14 CREATININE 0.8 PROT 7.9 BILITOT 0.3 ALT 14 AST 13 GLUCOSE 442* Phosphorus: Lab Results Component Value Date PHOS 4.4 06/18/2017 Invalid input(s): LABALBU Recent Labs Lab 06/18/17 0544 MG 1.6* No results for input(s): AMYLASE in the last 168 hours. No results for input(s): PHART, PO2ART, JKN0BCR, G2XEZJXC, BEART in the last 168 hours. Recent Labs Lab 06/18/17 0544 INR 0.9 Recent Labs Lab 06/18/17 0544 TSH 0.483 No results for input(s): CKTOTAL, TROPONINI, TROPONINT, CKMBINDEX in the last 168 hours. PROBLEM LIST Principal Problem: Malignant neoplasm of lower lobe of left lung (HCC) Active Problems: Coronary artery disease involving lower [place] coronary artery of lower [place] heart with angina pect monse (HCC) Essential hypertension Type 2 diabetes mellitus without complication (HCC) S/P drug eluting coronary stent placement More than 35 mins were spent on the review of H/P, imaging and labs, formulation of assessm ent and plan, discussion with the patient/family, staff and providers. RUFUS ALVAREZ MD 06/19/2017 8:53 AM onversion Transac tion, Provider Unknown - 06/18/2017 9:59 AM PDTFormatting of this note might be different f rom the original. Case Management by Hollie Rodriguez RN at 06/18/17 0910 Author: Hollie Rodriguez RN Service: (none) Author Type: Registered Nurse Filed: 06/18/17 1002 Date of Service: 06/18/1735 Status: Addendum Indian Trader: Hollie Rodriguez RN (Registered Nurse) Related Notes: Original Note by Hollie Rodriguez RN (Registered Nurse) filed at 06/18/17 1002 06/18/17 4144 Discharge Planning Evaluation Admitting Diagnosis Malignant neoplasm of left lung lower lobe Readmission No Living Arrangements Spouse/significant other;Children Support Systems Spouse/significant other;Children Type of Residence Private residence House type Apartment (second floor) Elevator available No Independent with ADL's Yes Independent with Mobility Yes Home Care Services No Caregiver after Discharge No Mental Status Oriented Prior functional status Independent Power of Electronic Tester No Anticipated Discharge Plan Post Acute Care Needs None at this time Plan communicated to patient/family Yes Resources Financial concerns No Transportation issues No Patient/Family concerns No Prescription Plan Yes Name of Pharmacy [facility] [place] Pharmacy phone number [phone] (Phone) Previous home health equipment No Anticipated Disposition Medicare Important Message (BUNNY) Not applicable Met with patient and discussed discharge planning, Pt is a 46 y.o., female admitted with ma lignant neoplasm of lower lung lobe. Pt stated she is at [facility] to have surgery with Dr. Nabil paulino; per chart notes pt will have a lobectomy on 06/21. Pt states she lives with her a nd two children in a second level apartment. She uses no DME, no home oxygen, no dialysis, a nd was on Plavix prior to admit. Pt sees a [facility] regulator tester as well as a geometrician. P t was independent prior to admit and states her daughter drove her to [facility] & will transpor t her home upon d/c. Patient's PCP is: Yuriy Cardenas ([place]-pt saw on Saturday) Patient's insurance: Medicare/Medicaid Coverage concerns: no Medication coverage/concerns: no concerns Rx Bedside Delivery: tbd Community resources utilized / needed: tbd Assistance in transportation: family to transport Identification of any specific education / training: none at this time Barriers to Discharge / Alternative housing needed: none at this time Anticipated DCP: tbd pending clinical course; likely home with family Hollie Rodriguez [phone] Rios Carranza PA - 06/18/2017 9:37 AM PDTFormatting of this note might be different fro m the original. Progress Notes by Rios Camilo PA-C at 06/18/17936 Author: Rios Camilo PA-C Service: Cardiac, Thoracic, and Vascular Surgery Author Ty pe: Physician Carton Catcher - Certified Filed: 06/18/17940 Date of Service: 06/18/17936 Status: Attested Indian Trader: Rios Camilo PA-C (Physician Carton Catcher - Certified) Cosigner: Rafael downing MD at 06/18/17 0005 Attestation signed by Rafael Wade MD at 06/18/17 1231 I have reviewed the note below, personally reviewed the available laboratory and imaging st udies and examined the patient. I agree with the assessment and plan mentioned below. Electronically signed by: Rafael Wade, 06/18/2017 2:09 PM [facility] Service: Cardiothoracic Surgery Progress Note Hospital Day: LOS: 0 days SUBJECTIVE Patient Summary: Recent stent placement, on Integrilin pending surgery on 06/21 Events Overnight: HD stable, no complaints Scheduled Medications aspirin 81 mg Oral Daily atorvastatin 40 mg Oral Nightly furosemide 40 mg Oral Daily gemfibrozil 600 mg Oral BID AC insulin detemir 52 Units Subcutaneous BID insulin lispro (human) 0-10 Units Subcutaneous TID AC insulin lispro (human) 0-5 Units Subcutaneous Nightly insulin lispro (human) 20 Units Subcutaneous TID AC isosorbide mononitrate 60 mg Oral Daily losartan 25 mg Oral Daily metoprolol 25 mg Oral Nightly pregabalin 75 mg Oral TID Continuous Infusions dextrose eptifibatide 0.75 mg/mL 2 mcg/kg/min (06/18/17 0450) PRN Medications acetaminophen OR acetaminophen, albuterol, dextrose, dextrose, dextrose, glucagon, gluc agon, magnesium sulfate OR magnesium sulfate OR magnesium sulfate, magnesium sulfate OR magnesium sulfate OR magnesium sulfate, nitroGLYCERIN, ondansetron OR ondans etron, polyethylene glycol, potassium OR potassium OR potassium OR potassium chl oride OR potassium chloride OR potassium chloride, potassium chloride OR potassi um chloride OR potassium chloride, zolpidem OBJECTIVE Vital Signs: BP 111/66 | Pulse 86 | Temp 98.2 F (36.8 C) (Oral) | Resp 18 | Ht 1.651 m (5' 5") | Wt 89.3 kg (196 lb 13.9 oz) | SpO2 91% | ? No | BMI 32.76 kg/m Temp: [98.2 F (36.8 C)] 98.2 F (36.8 C) (06/19 815) BP: (106-113)/(60-69) 111/66 (06/18 932) Heart Rate: [86-96] 86 (06/18 932) Resp: [18] 18 (06/19 815) SpO2: [91 %-97 %] 91 % (06/19 815) Height: [165.1 cm (5' 5")] 165.1 cm (5' 5") (06/18 412) Weight: [89.3 kg (196 lb 13.9 oz)] 89.3 kg (196 lb 13.9 oz) (06/18 412) BMI (Calculated): [32.8] 32.8 (06/18 412) On exam: General: WF, NAD Heart: RRR Lungs: CTA b/l Abd: soft, non-tender Neuro: A&O x3, no focal deficits DATA CBC: Lab Results Component Value Date WBC 12.41 (H) 06/18/2017 RBC 4.79 06/18/2017 HGB 14.5 06/18/2017 HCT 42.1 06/18/2017 MCV 87.9 06/18/2017 MCH 30.3 06/18/2017 MCHC 34.4 06/18/2017 RDW 41.6 06/18/2017 PLT 253 06/18/2017 MPV 10.1 06/18/2017 DIFFTYPE AUTOMATED 06/18/2017 BMP: Lab Results Component Value Date NA 135 06/18/2017 K 3.5 06/18/2017 CL 97 (L) 06/18/2017 CO2 26 06/18/2017 ANIONGAP 16 06/18/2017 GLUF 440 (H) 06/18/2017 BUN 14 06/18/2017 CREATININE 0.8 06/18/2017 BCR 18 06/18/2017 CA 9.3 06/18/2017 EGFR >60 06/18/2017 PROBLEM LIST Principal Problem: Malignant neoplasm of lower lobe of left lung (HCC) Active Problems: Coronary artery disease involving lower [place] coronary artery of lower [place] heart with angina pect monse (HCC) Essential hypertension Type 2 diabetes mellitus without complication (HCC) S/P drug eluting coronary stent placement ASSESSMENT & PLAN -Integrilin gtt until 6pm on 06/20 -L VATS lobectomy 06/21 -Appreciate hospitalist service (primary until surgery) Disposition: Cardiac unit on Integrilin gtt awaiting surgery Code Status: Full Code Rios Camilo PA-C 06/18/2017 onversion Transact ion, Provider Unknown - 06/18/2017 3:56 AM PDTFormatting of this note might be different fr om the original. Progress Notes by Karsten Izquierdo RPH at 06/18/17355 Author: Karsten Izquierdo RPH Service: Pharmacy Author Type: Pharmacist Filed: 06/18/17355 Date of Service: 06/18/17355 Status: Signed Indian Trader: Karsten Izquierdo RPH (Pharmacist) Clinical Pharmacy Note: Renal Monitoring Nacny Cerdaemi 46 y.o. female Ht Readings from Last 1 Encounters: 06/03/17 1.651 m (5' 5") Wt Readings from Last 1 Encounters: 06/03/17 94.3 kg (208 lb) CREATININE Date Value Ref Range Status 05/28/2017 0.56 (A) 0.60 - 1.35 mg/dL Final Creatinine clearance cannot be calculated (Unknown ideal weight.) Pharmacy dosing for renal function per Dr. Reilly. Currently, there are no medications needing to be adjusted. Pharmacy will continue to monit or for changes in medication orders and in renal function and adjust accordingly. Karsten Izquierdo RPh 06/18/2017 3:55 AM docume nted in this encounter H&P Notes Jose Carlos Reilly MD - 06/18/2017 4:05 AM PDTFormatting of this note might be different fro m the original. H&P by Jose Carlos Reilly MD at 06/18/17404 Author: Jose Carlos Reilly MD Service: Hospitalist Author Type: Physician Filed: 06/18/17618 Date of Service: 06/18/17404 Status: Signed Indian Trader: Jose Carlos Reilly MD (Physician) [facility] Service: Hospitalist Admission History & Physical Pt: Nancy Terrazas AGE/SEX: 46 y.o. female ROOM: 4457/4457-1 PCP: Yuriy Cardenas : 1970 TODAY'S DATE: 06/18/2017 Date of Admission: 06/18/2017 Chief Complaint: No chief complaint on file. Left lobe Adeno carcinoma History of Present Illness: The patient is a 46 y.o. female with significant past medical history of CAD with multiple stents, HTN, DM, long history of tobacco use but states she quit about 8-9 weeks ago who pre sents as a direct admit for eventual left lower lobe surgery from the cardiothoracic surgery team. The patient had a biopsy done of the lung lesion on 04/25/17 and the pathology showed well differentiated adeno CA. Patient was referred to cardiothoracic surgery and was evaluated. She underwent testing inc luding PFT and a cardiology follow up prior to her admission in preparation for surgery. At this time she is fairly asymptomatic. She denies any nausea/vomiting. No chest pain or s ob. PMHx: Past Medical History Diagnosis Date Asthma Chronic back pain Coronary artery disease involving lower [place] coronary artery of lower [place] heart with angina pe ctoris ([facility]) 05/03/2015 Hyperlipidemia Hypertension Lung mass medial pleural base mass-LLL Old myocardial infarction Type 2 diabetes mellitus without complication ([facility]) 05/03/2015 PSHx: Past Surgical History Procedure Laterality Date BREAST SURGERY SECTION CHOLECYSTECTOMY CORONARY STENT PLACEMENT LITHOTRIPSY LUNG BIOPSY 04/25/2017 CT NEEDLE BIOPSY LUNG 04/25/2017 Aurelio Espinal MD [facility] CT SINUS SURGERY SPINE SURGERY TUBAL LIGATION Prior To admission Meds: Prior to Admission medications Medication Sig Start Date End Date Taking? Authorizing Provider albuterol (PROVENTIL HFA;VENTOLIN HFA) 108 (90 BASE) MCG/ACT inhaler Inhale 2 puffs into th e lungs every 4 (four) hours as needed for Wheezing. Historical Provider aspirin 81 MG tablet Take 81 mg by mouth daily. Last dose Saturday due to lung biopsy toda y Historical Provider atorvastatin (LIPITOR) 40 MG tablet Take 1 tablet by mouth nightly. 03/13/17 03/13/18 PRICE Forrest clopidogrel (PLAVIX) 75 MG tablet Take 1 tablet by mouth daily. 03/13/17 PRICE Wilkes furosemide (LASIX) 40 MG tablet Take 1 tablet by mouth daily. 03/13/17 03/13/18 PRICE Carlisle gemfibrozil (LOPID) 600 MG tablet Take 1 tablet by mouth 2 (two) times daily before meals. 03/13/17 03/13/18 PRICE Silvestre insulin aspart (NOVOLOG) 100 UNIT/ML injection Inject 45 Units into the skin 3 (three) time s daily before meals. With meals Historical Provider insulin detemir (LEVEMIR) 100 UNIT/ML injection Inject 60 Units into the skin 2 (two) times daily. Historical Provider isosorbide mononitrate (IMDUR) 60 MG 24 hr tablet Take 1 tablet by mouth daily. TO REPLACE IMDUR 30 MG 06/03/17 06/03/18 PRICE Silvestre losartan (COZAAR) 25 MG tablet Take 1 tablet by mouth daily. 03/13/17 PRICE Silvestre metoprolol (TOPROL-XL) 25 MG 24 hr tablet Take 1 tablet by mouth nightly. 03/13/17 03/13/18 PRICE Silvestre nitroGLYCERIN (NITROSTAT) 0.[address] 1 tablet under the tongue every 5 (five) m inutes as needed for Chest pain. 07/25/16 07/25/17 Pilo Ocampo MD potassium chloride (MICRO-K) 10 MEQ CR capsule Take 1 capsule by mouth daily. 03/13/17 PRICE Silvestre pregabalin (LYRICA) 75 MG capsule Take 75 mg by mouth 3 (three) times daily. Historical Provider Medications scheduled: aspirin 81 mg Oral Daily atorvastatin 40 mg Oral Nightly furosemide 40 mg Oral Daily gemfibrozil 600 mg Oral BID AC insulin detemir 52 Units Subcutaneous BID insulin lispro (human) 0-10 Units Subcutaneous TID AC insulin lispro (human) 0-5 Units Subcutaneous Nightly insulin lispro (human) 20 Units Subcutaneous TID AC isosorbide mononitrate 60 mg Oral Daily losartan 25 mg Oral Daily metoprolol 25 mg Oral Nightly pregabalin 75 mg Oral TID Allergies: Allergies Allergen Reactions Latex Hives Sulfa Antibiotics Rash Codeine Nausea and Vomiting Lisinopril Cough Family Hx: Family History Problem Relation Age of Onset Asthma Mother Diabetes type II Mother Heart disease Mother Hypertension Mother COPD Mother Congestive Heart Failure Mother Heart disease Maternal Grandmother Congestive Heart Failure Maternal Grandmother Uterine cancer Maternal Aunt Social Hx: Social History Social History Marital status: Spouse [...] Narrative No narrative on file Review of Symptoms: Constitutional: No Fever,No chills, No diaphoresis, No appetite change, No fatigue, No shavon ght loss. HENT: No Hearing loss,No ear pain,No nosebleeds,No congestion,No neck pain or stiffness, No dental problem,No tinnitus, No ear discharge Eyes: No Photophobia,No pain, No discharge, No redness, No visual disturbances. Respiratory: No cough,No chest tightness, + mild shortness of breath, No wheezing. Cardiovascular: No Chest pain,No palpitations, No leg swelling. Gastrointestinal: No Nausea, No vomiting, No abdominal pain, No diarrhea, No constipation, No blood in stool, No abdominal distention Genitourinary: No Dysuria, No frequency, No hematuria, No flank pain, No difficulty urinati ng. Musculoskeletal: No Back pain, No joint swelling, No arthralgias, No gait problems. Skin: No pallor, No rash Neurological: No Dizziness, No tremors, No seizures, No syncope, No weakness, No headaches. Hematological: No lymphadenopathy. Does not bruise/bleed easily. Psychiatric/Behavioral: No Suicidal ideas, No hallucinations,No behavioral problems, No con fusion.. Objective: Vital Signs: There were no vitals taken for this visit. No intake/output data recorded. Physical Exam: Constitutional: Oriented to person, place, and time. appears well-developed and well-nouris hed. Daughter is at bedside. HEENT: Head: Normocephalic and atraumatic. Nose: Nose normal. Mouth/Throat: Oropharynx is clear and moist. Eyes: Conjunctivae and EOM are normal. Neck: Normal range of motion. Neck supple. No JVD present. Cardiovascular: Normal rate, regular rhythm, normal heart sounds. Exam reveals no apprecia hiren gallop or friction rub. No murmur heard. Pulmonary/Chest: Effort normal and breath sounds normal. No stridor. No respiratory distres s. no wheezes. no rales. exhibits no chest wall tenderness. Abdominal: Soft. Bowel sounds are normal. exhibits no distension and no mass. There is no t enderness. There is no rebound and no guarding. Extremities/Musculoskeletal: Normal range of motion.exhibits no tenderness. exhibits no ed cony. Neurological: No gross cranial nerve deficit. Exhibits normal muscle tone as would be ex pected for the patient. Coordination normal for patient. Skin: Skin is warm and dry. No rash noted. No erythema. No pallor. Psychiatric: Has a normal mood and affect for situation. Behavior is normal. Data: No results for input(s): WBC, HGB, HCT, PLT, NEUTOPHILPCT, MONOPCT in the last 168 hours. Invalid input(s): EOSPCT No results for input(s): NA, K, CL, CO2, BUN, CREATININE, CALCIUM, PROT, BILITOT, ALKPHOS, ALT, AST, GLUCOSE in the last 168 hours. Invalid input(s): LABALBU Phosphorus: Lab Results Component Value Date PHOS 3.7 05/04/2015 Invalid input(s): LABALBU No results for input(s): MG in the last 168 hours. No results for input(s): AMYLASE in the last 168 hours. No results for input(s): PHART, PO2ART, CTX1SBB, Z5MSMEBI, BEART in the last 168 hours. No results for input(s): APTT, INR, PTT in the last 168 hours. No results for input(s): TSH, T3FREE, FREET4 in the last 168 hours. No results for input(s): CKTOTAL, TROPONINI, TROPONINT, CKMBINDEX in the last 168 hours. Results No results found for the last 72 hours. IMAGING: No results found. Problem List: Principal Problem: Malignant neoplasm of lower lobe of left lung (HCC) Active Problems: Coronary artery disease involving lower [place] coronary artery of [place] heart with angina pect monse (HCC) Essential hypertension Type 2 diabetes mellitus without complication (HCC) S/P drug eluting coronary stent placement Assessment and Plan: Left lower lobe AdenoCA well differentiated - per workup no demonstrated area of metastasis - cardiothoracic surgery is consulted - Plan will be to hold the plavix and continue with integrillin gtt for now. Surgery is paul nned for 06/21/17 CAD with multiple stents - continue with Metoprolol, atorvastatin, aspirin. Stop plavix and start on integrillin Diabetes mellitus - patient states she take 52 units of levemir BID, we will continue this. She states she ta kes 45 units of novolog tid with meals. Will change this to 20 units TID with meals and add sliding scale. - check hga1c HTN - continue current home medications and titrate as needed Tobacco use - patient states she quit smoking about 8 weeks ago. Continue cessation Gi/DVT prophylaxis Patient's old records and labs were reviewed as available in detail and summarized when nee ded. Active comorbid conditions include: - hypertension - CAD - asthma - diabetes Code Status: Full Code Primary Care Physician: Yuriy Reilly MD 06/18/2017 4:05 AM Dictation software, [email or web address], may have been used which may contain error for similar sounding words even after review. Personal communication requested for any clarification. Portions of this chart may have been copied from previous notes for continuity of care. documented in this e ncounter Procedure Notes Byron Castro MD - 06/26/2017 10:04 PM PDTFormatting of this note might be dif ferent from the original. Procedures by Byron Castro MD at 06/26/172203 Author: Byron Castro MD Service: Training And Development Director Author Type: Physician Filed: 06/26/172246 Date of Service: 06/26/172203 Status: Signed Indian Trader: Byron Castro MD (Physician) Procedure Orders: 1. Central line [[id number]] ordered by Byron Castro MD at 06/26/172203 Post-procedure Diagnoses: 1. Acute respiratory failure with hypoxia (HCC) [J96.01] [facility] Service: Training And Development Director BEDSIDE PROCEDURE NOTE Central Line Date/Time: 06/26/2017 10:04 PM Performed by: BYRON CASTRO Authorized by: BYRON CASTRO Consent: Written consent obtained. Risks and benefits: risks, benefits and alternatives were discussed Consent given by: patient Patient understanding: patient states understanding of the procedure being performed Patient identity confirmed: arm band Time out: Immediately prior to procedure a "time out" was called to verify the correct young ent, procedure, equipment, technical support internship and site/side marked as required. Indications: vascular access Anesthesia: local infiltration Anesthesia: Local Anesthetic: lidocaine 1% without epinephrine Preparation: skin prepped with 2% chlorhexidine Skin prep agent dried: skin prep agent completely dried prior to procedure Sterile barriers: all five maximum sterile barriers used - cap, mask, sterile gown, sterile gloves, and large sterile sheet Hand hygiene: hand hygiene performed prior to central venous catheter insertion Location details: left internal jugular Patient position: flat Catheter type: triple lumen Catheter size: 7 Fr Pre-procedure: landmarks identified Ultrasound guidance: yes Sterile ultrasound techniques: sterile gel and sterile probe covers were used Number of attempts: 1 Successful placement: yes Post-procedure: line sutured Assessment: blood return through all ports and placement verified by x-ray Patient tolerance: Patient tolerated the procedure well with no immediate complications Byron Castro MD 06/26/2017 Cheryle Fitzpatrick ARNP - 06/25/2017 8:00 PM PDTFormatting of this note might be different from the or iginal. Procedures by PRICE Murphy at 06/25/171999 Author: PRICE Murphy Service: Training And Development Director Author Type: Advanced Registered Su se Practitioner Filed: 06/25/172032 Date of Service: 06/25/171999 Status: Signed Indian Trader: PRICE Murphy (Merlin Registered Nurse Dimitrios) Procedure Orders: 1. Intubation [[id number]] ordered by PRICE Murphy at 06/25/172031 Post-procedure Diagnoses: 1. Acute respiratory failure with hypoxia (HCC) [J96.01] [facility] Service: Training And Development Director BEDSIDE PROCEDURE NOTE Intubation Date/Time: 06/25/2017 8:32 PM Performed by: SAPNA NELSON Authorized by: SAPNA NELSON Consent: Verbal consent obtained. Risks and benefits: risks, benefits and alternatives were discussed Consent given by: patient Patient understanding: patient states understanding of the procedure being performed Patient consent: the patient's understanding of the procedure matches consent given Procedure consent: procedure consent matches procedure scheduled Relevant documents: relevant documents present and verified Test results: test results available and properly labeled Site marked: the operative site was marked Imaging studies: imaging studies available Required items: required blood products, implants, devices, and special equipment available Patient identity confirmed: verbally with patient, arm band and hospital-assigned identific ation number Time out: Immediately prior to procedure a "time out" was called to verify the correct young ent, procedure, equipment, technical support internship and site/side marked as required. Indications: respiratory failure and hypoxemia Intubation method: video-assisted Patient status: paralyzed (RSI) Preoxygenation: BiPaP. Pretreatment medications: none Sedatives: etomidate Paralytic: rocuronium Laryngoscope size: Glidescope 3. Tube size: 8.0 mm Tube type: cuffed Number of attempts: 1 Cricoid pressure: no Cords visualized: yes Post-procedure assessment: chest rise and CO2 detector Breath sounds: equal and absent over the epigastrium Cuff inflated: yes ETT to teeth: 23 cm Tube secured with: ETT ferguson Chest x-ray interpreted by me, other physician and radiologist. Chest x-ray findings: endotracheal tube in appropriate position Patient tolerance: Patient tolerated the procedure well with no immediate complications PRICE Murphy 06/25/2017 documented in thi s encounter Consult Notes Conversion Transaction, Provider Unknown - 07/02/2017 1:38 PM PDTFormatting of this note m ight be different from the original. Consult* by Melissa Harris RD, CDE at 07/02/17 7070 Author: Melissa Harris RD, CDE Service: (none) Author Type: Factory Representative Filed: 07/02/17 4574 Date of Service: 07/02/17 4310 Status: Signed Indian Trader: Melissa Harris RD, CDE (Factory Representative) Follow up with pt and daughter. Will discharge home today. Reviewed insulin amounts for h ome. Reviewed how to use a correctional scale. Discussed recording blood sugars before jose ls and insulin amounts and following up with pcp for further diabetes management. Pt states she has Levemir, Novolog, glucometer with strips and lancets at home. Melissa Harris RD, MPH, CDE, Factory Representative 07/02/2017 1:40 PM onver mayank Transaction, Provider Unknown - 07/01/2017 4:18 PM PDT Consults by Melissa Harris RD, CDE at 07/01/17 1618 Author: Melissa Harris RD, CDE Service: (none) Author Type: Factory Representative Filed: 07/01/17 1622 Date of Service: 07/01/17 1618 Status: Signed Indian Trader: Melissa Harris RD, CDE (Factory Representative) Consult Orders: 1. Inpatient consult to nursing educator [[id number]] ordered by Mary George PA-C at 0958 Follow up with pt and daughter. Pt reports she is feeling much better, however was complai igselle about swelling in her legs. She is concerned about the amount of insulin she is curren tly getting here as it is much less than her home dose. Yesterday received 19 units of correctional scale insulin. Recommend: Increase Levemir to 30 units, increase routine Humalog with meals to 9 units co ntinue with endotool correctional scale. Melissa Harris RD, MPH, CDE, Factory Representative 07/01/2017 4:22 PM Vale Mccloud MD - 07/01/2017 11:01 AM PDT Consult* by Vale Santiago MD at 07/01/17 1101 Author: Vale Santiago MD Service: Infectious Disease Author Type: Physician Filed: 07/01/17 1613 Date of Service: 07/01/17 1101 Status: Signed Indian Trader: Vale Santiago MD (Physician) [facility] Service: Infectious Disease Initial Consult Note Date of Admission: 06/18/2017 Reason for Consultation: HAP, leukocytosis Requesting Physician: Kendrick Camilo PA-C, Cardiothoracic Surgery History Obtained From: patient, chart review, daughter CHIEF COMPLAINT: Left lobe adenocarcinoma HISTORY OF PRESENT ILLNESS From Dr. 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 She was admitted and underwent VATS assisted Left lower lobectomy on 06/21/17. She was recovering well on the cardiac unit but she became more hypoxic overnight and went from being on 1LPM NC to 10 L then to BIPAP this am. CXR with diffuse b/l patchy opacities. She also started having CP that persisted for about 4 hours. CP was relieved by SL nitro x1 and morphine. ICU Timeline: 06/25- transferred to ICU for acute hypoxemic respiratory failure on BIPAP. ABG showed si gnificant respiratory alkalosis. Continued to deteriorate and had to be intubated overnight. 06-26: repeat echo for st changes on tele strips, pt without chest pain though.pt had kyleigh st pain during previous episodes of CAD. 06-28: extubated The patient's antibiotics for possible HCAP was managed by manager architectural team. Patient's acu te hypoxemic respiratory failure had been addressed by the antibiotics for HCAP, currently o n Zosyn/Levaquin/IV vancomycin and diuresis. Speech has been following up for dysphagia Rx. Cardiology is following up with the patient and managing diuretics, restarted patient on P lavix. Patient had been transferred out of the ICU and Kendrick Camilo PA-C has requested for formal ID evaluation re antibiotic Rx. Patient has remained afebrile since 06/27. WBC had trended down from peak of 19k to 13k yes terday but up today to 16.9k. Today is day 7 of Zosyn, day 6 of Levaquin and day 5 of IV vancomycin. She states she feels better overall. She has left sided chest pain at the site of surgery. She reports having improvement of shortness of breath but still gets short of breath with e xertion/ambulation. Cough is improving with no significant phlegm production. She has no chi lls or sweats. She denies abdominal pain, nausea, vomiting, diarrhea. There has been no dysu chetan. She has some arthralgias but not worse from baseline. There are no new skin rashes or u lcers. She has lower extremity edema and is continuing to be diuresed. REVIEW OF SYSTEMS Review of Systems 12 point ROS negative unless specified above Past Medical History Diagnosis Date Asthma Chronic back pain Coronary artery disease involving lower [place] coronary artery of [place] heart with angina pe ctoris ([facility]) 05/03/2015 Hyperlipidemia Hypertension Lung mass medial pleural base mass-LLL Old myocardial infarction Type 2 diabetes mellitus without complication ([facility]) 05/03/2015 Past Surgical History Procedure Laterality Date BREAST SURGERY SECTION CHOLECYSTECTOMY CORONARY STENT PLACEMENT LITHOTRIPSY LUNG BIOPSY 04/25/2017 CT NEEDLE BIOPSY LUNG 04/25/2017 Aurelio Espinal MD [facility] CT SINUS SURGERY SPINE SURGERY THORACOSCOPY - LOBECTOMY Left 06/21/2017 Procedure: THORACOSCOPY VIDEO ASSISTED LOBECTOMY; Surgeon: Rafael Wade MD; Locatio n: [facility] MAIN OR; Service: Cardiac; Laterality: Left; Thoracotomy, mediastinal lymphadenec chris. TUBAL LIGATION Allergies Allergen Reactions Latex Hives Sulfa Antibiotics Rash Codeine Nausea and Vomiting Lisinopril Cough Prescriptions Prior to Admission Medication Sig Dispense Refill Last Dose aspirin 81 MG tablet Take 81 mg by mouth daily. Last dose Saturday due to lung biopsy today Taking at 1000 atorvastatin (LIPITOR) 40 MG tablet Take 1 tablet by mouth nightly. 30 tablet 11 Taking at Unknown time clopidogrel (PLAVIX) 75 MG tablet Take 1 tablet by mouth daily. 30 tablet 11 06/15/2017 at Unknown time furosemide (LASIX) 40 MG tablet Take 1 tablet by mouth daily. 30 tablet 11 Taking at Un known time albuterol (PROVENTIL HFA;VENTOLIN HFA) 108 (90 BASE) MCG/ACT inhaler Inhale 2 puffs int o the lungs every 4 (four) hours as needed for Wheezing. Taking gemfibrozil (LOPID) 600 MG tablet Take 1 tablet by mouth 2 (two) times daily before jose ls. 60 tablet 11 Taking insulin aspart (NOVOLOG) 100 UNIT/ML injection Inject 45 Units into the skin 3 (three) times daily before meals. With meals Taking insulin detemir (LEVEMIR) 100 UNIT/ML injection Inject 60 Units into the skin 2 (two) t imes daily. Taking isosorbide mononitrate (IMDUR) 60 MG 24 hr tablet Take 1 tablet by mouth daily. TO REPL SUKUMAR IMDUR 30 MG 30 tablet 11 losartan (COZAAR) 25 MG tablet Take 1 tablet by mouth daily. 30 tablet 11 Taking metoprolol (TOPROL-XL) 25 MG 24 hr tablet Take 1 tablet by mouth nightly. 30 tablet 11 Taking nitroGLYCERIN (NITROSTAT) 0.[address] 1 tablet under the tongue every 5 (fiv e) minutes as needed for Chest pain. 90 tablet 0 Taking potassium chloride (MICRO-K) 10 MEQ CR capsule Take 1 capsule by mouth daily. 30 capsul e 11 Taking pregabalin (LYRICA) 75 MG capsule Take 75 mg by mouth 3 (three) times daily. Taking Scheduled Medications aspirin 81 mg Oral Daily atorvastatin 80 mg Oral Nightly clopidogrel 75 mg Oral Daily docusate sodium 100 mg Oral BID Or docusate 100 mg Per OG Tube BID famotidine 20 mg Oral BID Or famotidine 20 mg Intravenous BID furosemide 40 mg Intravenous BID-Diuretics heparin (porcine) 5000 unit/0.5mL 5,000 Units Subcutaneous 3 times per day insulin detemir 23 Units Subcutaneous Nightly insulin lispro (human) 2-8 Units Subcutaneous Nightly insulin lispro (human) 4-16 Units Subcutaneous TID AC insulin lispro (human) 6 Units Subcutaneous TID AC levofloxacin 500 mg Intravenous Q24H Lidocaine 2 patch Transdermal Daily metoprolol 25 mg Oral Daily piperacillin-tazobactam 3.375 g 3.375 g Intravenous Q8H potassium chloride 20 mEq Oral BID WC pregabalin 75 mg Oral TID sennosides 5 mL Oral Nightly vancomycin 17 mg/kg Intravenous Q12H Continuous Infusions PRN Medications acetaminophen OR acetaminophen OR acetaminophen, albuterol, aluminum-magnesium hydr oxide-simethicone, clonazePAM, dextrose, dextrose, diazepam, LORazepam, magnesium hydroxide, magnesium sulfate OR magnesium sulfate OR magnesium sulfate, nitroGLYCERIN, nystati n, ondansetron OR ondansetron, oxyCODONE OR oxyCODONE OR [DISCONTINUED] oxyCODON E, petrolatum, potassium chloride in NS OR potassium chloride OR potassium chloride Family History Problem Relation Age of Onset Asthma Mother Diabetes type II Mother Heart disease Mother Hypertension Mother COPD Mother Congestive Heart Failure Mother Heart disease Maternal Grandmother Congestive Heart Failure Maternal Grandmother Uterine cancer Maternal Aunt Social History Social History Marital status: Spouse [...] Social History Narrative No narrative on file PHYSICAL EXAM Vital Signs: BP 105/57 (BP Location: Left upper arm) | Pulse 89 | Temp 98 F (36.7 C) (Oral) | Res p 20 | Ht 1.651 m (5' 5") | Wt 95.7 kg (210 lb 15.7 oz) | SpO2 98% | ? No | BMI 35.11 kg/m Temp: [98 F (36.7 C)-99 F (37.2 C)] 98 F (36.7 C) (07/02 735) BP: (94-147)/(57-75) 105/57 (07/02 735) Heart Rate: [83-110] 89 (07/02 735) Resp: [18-24] 20 (07/02 735) SpO2: [89 %-98 %] 98 % (07/02 735) Weight: [95.7 kg (210 lb 15.7 oz)] 95.7 kg (210 lb 15.7 oz) (07/02 347) Physical Exam Vital signs have been reviewed Gen.: Pleasant female, not in acute distress. Speaks in complete sentences. Seen with daugh ter at bedside HEENT: Normocephalic. Anicteric sclera. Conjunctival pallor noted. No nasal mucosal lesions . No sinus tenderness. No tragal tenderness. Moist oral mucosa with no oral thrush or ulcers . Neck is supple with no cervical lymphadenopathy Chest wall: Incisional sites well coaptated and appeared to be healing well. No signs of ce llulitis/wound infection Lungs: Decreased breath sounds at the left lung base but no rales, wheezes or rhonchi noted Cardiovascular: Normal rate. Regular rhythm. No murmur or rubs Abdomen: No distention. Soft. No tenderness or palpable masses Skin: No rash Musculoskeletal: No inflamed looking joints Grade 2 bilateral lower extremity edema Neurologic: Oriented 3. Motor strength intact upper and lower extremities Psychiatric: Appropriate mood and affect DATA CBC: Lab Results Component Value Date WBC 16.90 (H) 07/01/2017 RBC 3.18 (L) 07/01/2017 HGB 9.4 (L) 07/01/2017 HCT 27.9 (L) 07/01/2017 MCV 87.8 07/01/2017 MCH 29.5 07/01/2017 MCHC 33.6 07/01/2017 RDW 42.4 07/01/2017 PLT 407 (H) 07/01/2017 MPV 8.3 07/01/2017 DIFFTYPE AUTOMATED 07/01/2017 WBC: Lab Results Component Value Date WBC 16.90 (H) 07/01/2017 NEUTABSMAN 27.74 (H) 06/21/2017 NEUTROABS 10.80 (H) 07/01/2017 NEUTROMAN 84 06/21/2017 LYMPHOABS 1.65 06/21/2017 LYMPHOMAN 5 06/21/2017 LYMPHSABS 3.30 07/01/2017 LYMPHOPCT 19.52 07/01/2017 MONOABSMAN 1.65 (H) 06/21/2017 MONOMAN 5 06/21/2017 MONOPCT 7.76 07/01/2017 EOSABS 1.36 (H) 07/01/2017 EOSPCT 8.07 07/01/2017 BASOSABS 0.12 (H) 07/01/2017 BASOPCT 0.70 07/01/2017 BANDSPCT 6 06/21/2017 COMDIFF PLATELETS CLUMPED, APPEAR ADEQUATE 06/21/2017 CMP: Lab Results Component Value Date NA 140 07/01/2017 K 4.1 07/01/2017 CL 103 07/01/2017 CO2 32 07/01/2017 ANIONGAP 9 07/01/2017 GLUF 178 (H) 07/01/2017 BUN 15 07/01/2017 CREATININE 0.9 07/01/2017 BCR 17 07/01/2017 CA 8.2 (L) 07/01/2017 PROT 6.9 06/25/2017 ALB 1.5 (L) 06/25/2017 GLOB 4.4 06/21/2017 BILITOT 0.5 06/25/2017 ALP 150 (H) 06/25/2017 AST 81 (H) 06/25/2017 ALT 18 06/25/2017 EGFR >60 07/01/2017 PT/INR: Lab Results Component Value Date INR 0.9 06/21/2017 PTT: Lab Results Component Value Date APTT 25 04/25/2017 [APTT} Last 3 Troponin: Lab Results Component Value Date TROPONINI 0.367 (H) 06/26/2017 TROPONINI 0.415 (H) 06/26/2017 TROPONINI 0.438 (H) 06/26/2017 CPK: Lab Results Component Value Date CKTOTAL 62 06/26/2017 U/A: Lab Results Component Value Date CLARITYU CLEAR 06/25/2017 LEUKOCYTESUR NEGATIVE 06/25/2017 NITRITE NEGATIVE 06/25/2017 UROBILINOGEN NORMAL 06/25/2017 UPRO NEGATIVE 06/25/2017 PHUR 5.0 06/25/2017 BLOODU NEGATIVE 06/25/2017 KETONES NEGATIVE 06/25/2017 BILIRUBINUR NEGATIVE 06/25/2017 GLUCOSEU NEGATIVE 06/25/2017 EPIS 16-25 06/25/2017 HgBA1c: Lab Results Component Value Date HGBA1C 9.2 (H) 06/27/2017 LABGLYC 217 06/27/2017 Component Latest Ref Rng & Units 06/29/2017 06/30/2017 07/01/2017 8:27 AM 9:39 AM 9:18 AM VANCOMYCIN,TROUGH 10 - 20 ug/mL 8.3 (L) 13.7 21.4 (HH) Component Latest Ref Rng & Units 06/25/2017 06/26/2017 7:00 AM 6:20 PM PROCALCITONIN <0.5 ng/mL 0.19 0.64 (H) Microbiology Data: 06/20 MRSA nasal PCR negative 06/25 Respiratory Filmarray negative 06/25 tracheal aspirate 1+ normal upper respiratory wesley 06/26 tracheal aspirate with no growth 06/26 blood cultures with no growth 06/22 urine culture with no growth S pneumoniae urine Ag negative Radiology Data: Serial CXRs reviewed 06/21 CXR - Small L PTX, pulmonary edema, L atelectasis, no consolidation 06/22 CXR - post-op findings, stable 06/23 CXR - stable 06/24 CXR - bilateral diffuse pulmonary edema; 1.4 cm L apical PTX 06/25 CXR - worsening bilateral pulmonary opacities, small L effusion 06/26 CXR - unchanged bilateral pulmonary opacities; pulmonary edema, ?infection 06/29 CXR - decreasing pulmonary congestion, stable left pleural effusion 07/01 CXR - density at ANDREW ?aortic arch; subtle interstitial infiltrates; no new consolidati on TTE Impression 1. This was a technically difficult study with suboptimal views. 2. Left ventricular systolic function is hyperdynamic with an estimated EF of >70% 06/27 TTE Impression 1. The left ventricle is normal in size and systolic function EF 65-70%. 2. There is no pericardial effusion. PROBLEM LIST Principal Problem: Malignant neoplasm of lower lobe of left lung (HCC) Active Problems: Coronary artery disease involving lower [place] coronary artery of [place] heart without angina p ectoris Essential hypertension Type 2 diabetes mellitus without complication (HCC) S/P drug eluting coronary stent placement QT prolongation Acute respiratory failure with hypoxia (HCC) Volume overload ASSESSMENT & PLAN Acute hypoxic respiratory failure -Improved; most likely combination of HCAP and pulmonary edema -s/p VATS, LL lobectomy for LLL adenocarcinoma -continuing with diuresis HCAP -overall feeling better -findings on CXR reassuring; no new infiltrates -afebrile, WBC increased - see below -Repeat procalcitonin -had been on Zosyn, levofloxacin IV and vancomycin IV -blood cultures with no growth; sputum cultures with no signficant growth -transition at this time to oral levofloxacin, doxycycline; if she remains stable on these 2 antibiotics, plan to continue x 7 more days of antibiotics -Monitor QT/monitor for antibiotic side effects including diarrhea, thrush Leukocytosis -no new focus of infection; specifically, no diarrhea to suggest C diff Case discussed with Dr. Wade, Kendrick Camilo PA-C, patient's nurse and Social Work *Addendum: Component Latest Ref Rng & Units 06/26/2017 07/01/2017 6:20 PM 9:18 AM PROCALCITONIN <0.5 ng/mL 0.64 (H) 0.12 Code Status: Full Code Primary Care Physician: Yuriy Cardenas Thank you for allowing me to participate in the care of this patient. VALE SANTIAGO MD 07/01/2017 Misael Serrato MD - 06/26/2017 6:22 PM PDTFormatting of this note might be different from the or iginal. Consults by Pilo Ocampo MD at 06/26/171821 Author: Pilo Ocampo MD Service: Cardiology Author Type: Physician Filed: 06/26/17 2349 Date of Service: 06/26/171821 Status: Signed Indian Trader: Pilo Ocampo MD (Physician) [facility] Service: Cardiology Cardiology Consult Date of Admission: 06/18/2017 Date of Consultation: 06/26/2017 Requesting Physician: Melissa Hyatt DO Reason for Consultation: Chest pain History Obtained From: patient, chart review HISTORY OF PRESENT ILLNESS: 46-year-old female with known history of coronary artery disease in his prior percutaneous intervention, and recent stent thrombosis heart the proximal left anterior descending artery , history of hypertension, emphysema, diabetes mellitus, and recently diagnosed adenocarcino ma of the left lung was admitted for left lower lobectomy. Patient transferred to the ICU ye sterday with hypoxemic respiratory failure and required intubation. Chest x-ray had shown di ffuse patchy opacities. She is being treated with antibiotics. Earlier today she had complai adelina of chest pains, her troponins were found to be minimally elevated. Currently the patient is very anxious, has chest pain had resolved and denies shortness of breath. Denies orthopn ea, paroxysmal nocturnal dyspnea, palpitation, presyncope, or syncope. REVIEW OF SYSTEMS Negative except for pertinent items noted in HPI PAST MEDICAL & SURGICAL HISTORY Past Medical History Diagnosis Date Asthma Chronic back pain Coronary artery disease involving lower [place] coronary artery of lower [place] heart with angina pe ctoris (HCC) 05/03/2015 Hyperlipidemia Hypertension Lung mass medial pleural base mass-LLL Old myocardial infarction Type 2 diabetes mellitus without complication (HCC) 05/03/2015 Past Surgical History Procedure Laterality Date BREAST SURGERY SECTION CHOLECYSTECTOMY CORONARY STENT PLACEMENT LITHOTRIPSY LUNG BIOPSY 04/25/2017 CT NEEDLE BIOPSY LUNG 04/25/2017 Aurelio Espinal MD [facility] CT SINUS SURGERY SPINE SURGERY THORACOSCOPY - LOBECTOMY Left 06/21/2017 Procedure: THORACOSCOPY VIDEO ASSISTED LOBECTOMY; Surgeon: Rafael Wade MD; Locatio n: [facility] MAIN OR; Service: Cardiac; Laterality: Left; Thoracotomy, mediastinal lymphadenec chris. TUBAL LIGATION MEDICATIONS Home Medications Prescriptions Prior to Admission Medication Sig Dispense Refill Last Dose aspirin 81 MG tablet Take 81 mg by mouth daily. Last dose Saturday due to lung biopsy today Taking at 1000 atorvastatin (LIPITOR) 40 MG tablet Take 1 tablet by mouth nightly. 30 tablet 11 Taking at Unknown time clopidogrel (PLAVIX) 75 MG tablet Take 1 tablet by mouth daily. 30 tablet 11 06/15/2017 at Unknown time furosemide (LASIX) 40 MG tablet Take 1 tablet by mouth daily. 30 tablet 11 Taking at Un known time albuterol (PROVENTIL HFA;VENTOLIN HFA) 108 (90 BASE) MCG/ACT inhaler Inhale 2 puffs int o the lungs every 4 (four) hours as needed for Wheezing. Taking gemfibrozil (LOPID) 600 MG tablet Take 1 tablet by mouth 2 (two) times daily before jose ls. 60 tablet 11 Taking insulin aspart (NOVOLOG) 100 UNIT/ML injection Inject 45 Units into the skin 3 (three) times daily before meals. With meals Taking insulin detemir (LEVEMIR) 100 UNIT/ML injection Inject 60 Units into the skin 2 (two) t imes daily. Taking isosorbide mononitrate (IMDUR) 60 MG 24 hr tablet Take 1 tablet by mouth daily. TO REPL SUKUMAR IMDUR 30 MG 30 tablet 11 losartan (COZAAR) 25 MG tablet Take 1 tablet by mouth daily. 30 tablet 11 Taking metoprolol (TOPROL-XL) 25 MG 24 hr tablet Take 1 tablet by mouth nightly. 30 tablet 11 Taking nitroGLYCERIN (NITROSTAT) 0.[address] 1 tablet under the tongue every 5 (fiv e) minutes as needed for Chest pain. 90 tablet 0 Taking potassium chloride (MICRO-K) 10 MEQ CR capsule Take 1 capsule by mouth daily. 30 capsul e 11 Taking pregabalin (LYRICA) 75 MG capsule Take 75 mg by mouth 3 (three) times daily. Taking Allergies Allergies Allergen Reactions Latex Hives Sulfa Antibiotics Rash Codeine Nausea and Vomiting Lisinopril Cough FAMILY HISTORY Family History Problem Relation Age of Onset Asthma Mother Diabetes type II Mother Heart disease Mother Hypertension Mother COPD Mother Congestive Heart Failure Mother Heart disease Maternal Grandmother Congestive Heart Failure Maternal Grandmother Uterine cancer Maternal Aunt SOCIAL HISTORY Social History Social History Marital [...] Social History Narrative No narrative on file PHYSICAL EXAM Vital Signs: BP 97/55 | Pulse 90 | Temp 100.4 F (38 C) (Axillary) | Resp 29 | Ht 1.651 m (5' 5") | Wt 93.6 kg (206 lb 5.6 oz) | SpO2 94% | ? No | BMI 34.34 kg/m General appearance: Intubated. Communicated by writing. Anxious. alert and cooperative, not in distress. HEENT: No xanthelasmas. Extraocular movements were intact. No jaundice. NECK: no JVD. Trachea is at midline. Thyroid is not palpable. CARDIAC: Regular rate and rhythm. There is normal S1 and S2. No added sounds, murmurs, ga llop, or rub. CHEST: On vent. Normal bilateral symmetrical chest excursion. Good bilateral air entry with no crackles or wheezing. No evidence of dullness. ABDOMEN: Soft and lax. No tenderness. No palpable organs. Active bowel sounds. EXTREMITIES: No lower extremities edema. No cyanosis. VASCULAR: Right carotid artery is +2 with no bruit. Left carotid artery is +2 with no bruit. Right radial artery is +2. Left radial artery is +2. Right dorsalis pedis is +2. Left dorsalis pedis is +2. NEURO: Intubated. Alert and oriented times three with no focal deficit. Cranial nerves are grossly normal. SKIN: No bruises or rash. No pallor. Psychiatric: Appropriate mood and affect. DATA Recent Labs Lab 06/26/17 0305 NA 142 K 4.0 CO2 27 BUN 12 CREATININE 0.6 MG 2.1 Recent Labs Lab 06/26/17 1500 06/26/17 0852 06/26/17 0304 CKTOTAL 62 78 99 CKMB <1.0 1.8 1.8 CKMBINDEX UNABLE TO CALCULATE 2.3 1.8 TROPONINI 0.367* 0.415* 0.438* Recent Labs Lab 06/26/17 0305 WBC 15.71* HGB 9.2* HCT 27.7* MCV 88.3 PLT 290 X-ray Chest 2 View Frontal & Lateral Result Date: 06/24/2017 Left apical pneumothorax measuring 1.4 cm. Bilateral diffuse pulmonary edema. Electronicall y signed by Augie Rodrigez MD on 06/24/2017 7:10 AM X-ray Chest 1 View Result Date: 06/26/2017 1. Smaller left apical pneumothorax, as above. This was relayed to the requesting health c are provider on the date and time of dictation. 2. Unchanged left support lines and tubes, as above. 3. Unchanged evidence of left upper lobectomy. 4. Unchanged nonspecific bilatera l airspace disease, somewhat diffuse. Electronically signed by Griffin Begum MD on 018 12:14 PM X-ray Chest 1 View Result Date: 06/26/2017 1. Tubes and lines in expected position. 2. Bilateral unchanged diffuse airspace disease, c onsistent with pulmonary edema versus infection. 3. Possible small left apical pneumothorax. Follow-up on subsequent exams. Xr Chest 1 View Result Date: 06/25/2017 1. Life-support devices as reported above 2. Cardiomegaly, bilateral interstitial and air space opacities and small effusion could represent pulmonary edema pattern versus bilateral infiltrate. Correlate clinically X-ray Chest 1 View Result Date: 06/25/2017 1. Mild cardiomegaly with worsening bilateral pulmonary opacities and possible small left e ffusion. 2. Suspect 1 cm residual left apical pneumothorax. RADIA Electronically signed by Eric Cochran MD on Jun 25 2017 5:54AM Referring Provider Line: [phone] ID: [id number] X-ray Chest 1 View Result Date: 06/23/2017 1. The patient is again noted to be status post left lobectomy with left chest drain in sta ble position. Stable opacification of the left hemithorax. 2. Slight interval decrease in op acification of the right hemithorax, likely representing decreasing pulmonary vascular conge stion/decreasing pulmonary edema. 3. No pleural effusion. No pneumothorax RADIA Electronic ally signed by Joshua Waite MD on Jun 23 2017 3:38AM Referring Provider Line: [phone] 425SITE ID: [id number] X-ray Chest 1 View Result Date: 06/22/2017 1. Postoperative changes of left lobectomy with life support devices unchanged in position . 2. Persistent airspace densities left hemithorax, unchanged. X-ray Chest 1 View Result Date: 06/21/2017 Left chest tube in expected position. Residual small left pneumothorax. Pulmonary edema. Po ssible left associated atelectasis. 2:3 7 PM Echo Cardiac Adult Limited Result Date: 06/25/2017 1. This was a technically difficult study with suboptimal views. 2. Left ventricular systol ic function is hyperdynamic with an estimated EF of >70%. EKG: April 28, 2017, personally reviewed, showed normal sinus rhythm. Probable old infer ior infarct. Poor R-wave progression. No ischemic changes. Problem List: Patient Active Problem List Diagnosis Precordial pain Coronary artery disease involving lower [place] coronary artery of lower [place] heart with angina pe ctoris (HCC) Essential hypertension Type 2 diabetes mellitus without complication (HCC) Mild intermittent asthma without complication Angina pectoris ([facility]) S/P drug eluting coronary stent placement Angina effort Cavitary lesion of lung Personal history of tobacco use, presenting hazards to health Malignant neoplasm of lower lobe of left lung (HCC) Bone lesion QT prolongation Acute respiratory failure with hypoxia ([facility]) ASSESSMENT & PLAN 1. Minimally elevated troponins, less than the threshold for acute myocardial infarction, l ikely related to severe hypoxemia 2. Acute hypoxemic respiratory failure. 3. Coronary artery disease status post prior stents proximal left anterior descending arter y, recent LAD stent thrombosis was stented with ST elevation myocardial infarction in [facility] er 2017. 4. Lung cancer status post lobectomy 5. Bilateral lung opacities, currently on antibiotics for possible pneumonia. The patient is currently hemodynamically stable and chest pain free. No evidence of acute coronary syndrome. No ischemic ECG changes. Echocardiogram reviewed showed normal left ventricular systolic function. Continue medical management for coronary artery disease with aspirin, Plavix, atorvastatin, metoprolol. Thank you for allowing me to participate in the care of this patient. Code Status: Full Code Primary Care Physician: Yuriy Ocampo MD 06/26/2017 awat, Francis weaver MD - 06/25/2017 9:02 PM PDT Consult* by Ben Bolton MD at 06/25/172101 Author: Ben Bolton MD Service: Training And Development Director Author Type: Physician Filed: 06/26/17 0553 Date of Service: 06/25/172101 Status: Addendum Indian Trader: Ben Bolton MD (Physician) Related Notes: Original Note by Ben Bolton MD (Physician) filed at 06/25/172121 [facility] Service: PULMONOLOGY Initial Consult Note Date of Admission: 06/18/2017 Reason for Consultation: Respiratory failure Requesting Physician: Dr wade , Cardiothoracic Surgery History Obtained From: chart review CHIEF COMPLAINT: Shortness of breath HISTORY OF PRESENT ILLNESS From icu note The patient is a 46 y/o female with significant PMH of CAD with multiple stents and 3 prior myocardial infarctions, HTN, asthma, centrolobular emphysema, chronic back pain, DM, smokin g (quit about 2 months ago) and recently diagnosed well differentiated adenocarcinoma of the left lung in April. She was admitted and underwent VATS assisted Left lower lobectomy on 06/21/17. She was recovering well on the cardiac unit but she became more hypoxic overnight and went from being on 1LPM NC to 10 L then to BIPAP this am. CXR with diffuse b/l patchy opacities. She also started having CP that persisted for about 4 hours. CP was relieved by SL nitro x1 and morphine. The patient was admitted to the ICU. She was managed with BiPAP all day. She continued to deteriorate and was unable to tolerate BiPAP and would desaturate. She was intubated. On review of the chart the patient complained of chest pain at the surgical site. She was being constantly given pain medications but she developed nausea, vomiting and hypotension b efore the patient was admitted to the ICU. REVIEW OF SYSTEMS Detailed review of systems not possible due to patient being intubated Past Medical History Diagnosis Date Asthma Chronic back pain Coronary artery disease involving lower [place] coronary artery of lower [place] heart with angina pe ctoris (HCC) 05/03/2015 Hyperlipidemia Hypertension Lung mass medial pleural base mass-LLL Old myocardial infarction Type 2 diabetes mellitus without complication ([facility]) 05/03/2015 Past Surgical History Procedure Laterality Date BREAST SURGERY SECTION CHOLECYSTECTOMY CORONARY STENT PLACEMENT LITHOTRIPSY LUNG BIOPSY 04/25/2017 CT NEEDLE BIOPSY LUNG 04/25/2017 Aurelio Espinal MD [facility] CT SINUS SURGERY SPINE SURGERY THORACOSCOPY - LOBECTOMY Left 06/21/2017 Procedure: THORACOSCOPY VIDEO ASSISTED LOBECTOMY; Surgeon: Rafael Wade MD; Locatio n: [facility] MAIN OR; Service: Cardiac; Laterality: Left; Thoracotomy, mediastinal lymphadenec chris. TUBAL LIGATION Allergies Allergen Reactions Latex Hives Sulfa Antibiotics Rash Codeine Nausea and Vomiting Lisinopril Cough Prescriptions Prior to Admission Medication Sig Dispense Refill Last Dose aspirin 81 MG tablet Take 81 mg by mouth daily. Last dose Saturday due to lung biopsy today Taking at 1000 atorvastatin (LIPITOR) 40 MG tablet Take 1 tablet by mouth nightly. 30 tablet 11 Taking at Unknown time clopidogrel (PLAVIX) 75 MG tablet Take 1 tablet by mouth daily. 30 tablet 11 06/15/2017 at Unknown time furosemide (LASIX) 40 MG tablet Take 1 tablet by mouth daily. 30 tablet 11 Taking at Un known time albuterol (PROVENTIL HFA;VENTOLIN HFA) 108 (90 BASE) MCG/ACT inhaler Inhale 2 puffs int o the lungs every 4 (four) hours as needed for Wheezing. Taking gemfibrozil (LOPID) 600 MG tablet Take 1 tablet by mouth 2 (two) times daily before jose ls. 60 tablet 11 Taking insulin aspart (NOVOLOG) 100 UNIT/ML injection Inject 45 Units into the skin 3 (three) times daily before meals. With meals Taking insulin detemir (LEVEMIR) 100 UNIT/ML injection Inject 60 Units into the skin 2 (two) t imes daily. Taking isosorbide mononitrate (IMDUR) 60 MG 24 hr tablet Take 1 tablet by mouth daily. TO REPL SUKUMAR IMDUR 30 MG 30 tablet 11 losartan (COZAAR) 25 MG tablet Take 1 tablet by mouth daily. 30 tablet 11 Taking metoprolol (TOPROL-XL) 25 MG 24 hr tablet Take 1 tablet by mouth nightly. 30 tablet 11 Taking nitroGLYCERIN (NITROSTAT) 0.[address] 1 tablet under the tongue every 5 (fiv e) minutes as needed for Chest pain. 90 tablet 0 Taking potassium chloride (MICRO-K) 10 MEQ CR capsule Take 1 capsule by mouth daily. 30 capsul e 11 Taking pregabalin (LYRICA) 75 MG capsule Take 75 mg by mouth 3 (three) times daily. Taking Scheduled Medications aspirin 81 mg Oral Daily atorvastatin 40 mg Oral Nightly clopidogrel 75 mg Oral Daily docusate sodium 100 mg Oral BID Or docusate 100 mg Per OG Tube BID famotidine 20 mg Oral BID Or famotidine 20 mg Intravenous BID heparin (porcine) 5000 unit/0.5mL 5,000 Units Subcutaneous 3 times per day insulin lispro (human) 0-14 Units Subcutaneous Q6H Lidocaine 2 patch Transdermal Daily losartan 25 mg Oral Daily metoprolol 5 mg Intravenous Q6H nitroGLYCERIN 0.5 inch Topical Q6H phenylephrine piperacillin-tazobactam 3.375 g 3.375 g Intravenous Q8H pregabalin 75 mg Oral TID sennosides 5 mL Oral Nightly Continuous Infusions dextrose fentaNYL in NS 5 mcg/mL lactated ringers 50 mL/hr at 06/25/17 1045 propofol PRN Medications acetaminophen OR acetaminophen OR acetaminophen, albuterol, aluminum-magnesium hydr oxide-simethicone, clonazePAM, dextrose, dextrose, dextrose, diazepam, glucagon, glucagon, L ORazepam, magnesium hydroxide, magnesium sulfate OR magnesium sulfate OR magnesium s ulfate, morphine OR morphine OR morphine, nitroGLYCERIN, nystatin, ondansetron OR* * ondansetron, oxyCODONE OR oxyCODONE OR [DISCONTINUED] oxyCODONE, petrolatum, potas sium chloride in NS OR potassium chloride OR potassium chloride Family History Problem Relation Age of Onset Asthma Mother Diabetes type II Mother Heart disease Mother Hypertension Mother COPD Mother Congestive Heart Failure Mother Heart disease Maternal Grandmother Congestive Heart Failure Maternal Grandmother Uterine cancer Maternal Aunt Social History Social History Marital status: Spouse [...] Social History Narrative No narrative on file PHYSICAL EXAM Vital Signs: BP 111/56 | Pulse 100 | Temp 97.1 F (36.2 C) (Axillary) | Resp (!) 31 | Ht 1.651 m (5' 5") | Wt 96.5 kg (212 lb 11.9 oz) | SpO2 97% | ? No | BMI 35.40 kg/m I/O last 3 completed shifts: In: 1808 [P.O.:1037; I.V.:621; IV Piggyback:150] Out: 3300 [Urine:3300] No intake/output data recorded. Physical Exam Vital signs reviewed. GENERAL: Intubated sedated HEENT: pink conjunctiva, anicteric sclerae, moist oral mucosae and without any lesions, nor mal appearing nasal mucosae; no JVD; _; no thyromegaly; no cervicolymphadenopathies CVS: PMI non displaced, NRRR, S1 and S2, no murmurs/gallops/rubs CHEST: Examination of the chest was unremarkable. There were no bony deformities, no asymme try, and no other abnormalities. LUNGS: left-sided crackles ABDOMEN: Flat abdomen, NABS, non-tender on palpation, Traube's space intact, liver span nor mal, no masses palpated EXTREMITIES: good distal pulses, no cyanosis, no edema, no clubbing, no nail abnormalities NEURO: intubated sedated and paralysed DATA CBC: Recent Labs Lab 06/25/17 05006/24/17 05006/23/17 0529 WBC 16.44* 12.13* 12.60* RBC 3.54* 3.43* 4.09 HGB 10.6* 10.4* 12.3 HCT 31.2* 29.9* 36.2 MCV 88.3 87.2 88.7 MCH 30.0 30.2 30.0 MCHC 34.0 34.7 33.8 RDW 41.1 42.0 42.9 PLT 298 253 285 MPV 9.3 9.3 9.5 DIFFTYPE AUTOMATED AUTOMATED AUTOMATED Platelets: Recent Labs Lab 06/25/17 05006/24/17 05006/23/17 0529 PLT 298 253 285 CMP: Recent Labs Lab 06/25/17 1809 06/25/17 0533 06/25/17 05006/24/17 0507 06/23/17 0529 06/21/17 0523 06/20/17 0434 NA -- -- 136 136 136 < > 139 137 K 3.5 -- 5.2* 3.7 4.2 < > 3.9 4.0 CL -- -- 105 107 106 < > 105 104 CO2 -- -- 24 25 22* < > 23 23 BUN -- -- 12 21 28* < > 20 16 CREATININE -- -- 0.6 0.5 0.7 < > 0.7 0.7 PROT -- 6.9 -- -- -- -- 7.2 7.0 BILITOT -- 0.5 -- -- -- -- 0.2 0.2 ALT -- 18 -- -- -- -- 10 16 AST -- 81* -- -- -- -- 13 14 < > = values in this interval not displayed. Calcium: No results for input(s): CALCIUM in the last 168 hours. Magnesium: Recent Labs Lab 06/25/17 05006/24/17 05006/23/17 0529 MG 2.1 2.3 2.4 Pulmonary Functions Testing Results: No results found for: FEV1, FVC, OTG2RMF, TLC, DLCO X-ray Chest 2 View Frontal & Lateral Result Date: 06/24/2017 NANCY TERRAZAS 1970 46 years Female XR CHEST 2 VIEW FRONTAL AND LATERAL 06/24/2017 6: 59 AM INDICATION: Chest tubes removed. COMPARISON: June 23, 2017 TECHNIQUE: Two view chest, PA and lateral views FINDINGS: Left apical pneumothorax measuring 1.4 cm. Bilateral diffuse pulmonary edema. Likely left basilar atelectasis. No acute osseous abnormality. Subcutaneou s emphysema of the left chest wall. Left apical pneumothorax measuring 1.4 cm. Bilateral diffuse pulmonary edema. Electronicall y signed by Augie Rodrigez MD on 06/24/2017 7:10 AM X-ray Chest 1 View Result Date: 06/25/2017 EXAM: CHEST RADIOGRAPHY EXAM DATE: 06/25/2017 05:32 AM. CLINICAL HISTORY: Shortness of patsy th. COMPARISON: 06/24/2017. TECHNIQUE: 1 view. FINDINGS: Lungs/Pleura: Worsening bilateral pulmonary opacities. Possible small left pleural effusion. There may be a 1 cm left apical pneumothorax. Mediastinum: Mild cardiomegaly. Other: Soft tissue emphysema again seen in t he left chest wall. 1. Mild cardiomegaly with worsening bilateral pulmonary opacities and possible small left e ffusion. 2. Suspect 1 cm residual left apical pneumothorax. RADIA Electronically signed by Eric Cochran MD on Jun 25 2017 5:54AM Referring Provider Line: [phone] ID: [id number] X-ray Chest 1 View Result Date: 06/23/2017 EXAM: CHEST RADIOGRAPHY EXAM DATE: 06/23/2017 02:17 AM. CLINICAL HISTORY: Thoracic postoper ative study COMPARISON: Radiograph chest 06/22/2017 TECHNIQUE: 1 view. FINDINGS: The patie nt is again noted to be status post left lobectomy with left chest drain in stable position. Stable opacification of the left hemithorax. Slight interval decrease in opacification of t he right hemithorax, likely representing decreasing pulmonary vascular congestion/decreasing pulmonary edema. No pleural effusion. No pneumothorax. Stable appearance of the cardiomedia stinal silhouette. Stable appearance of the osseous structures. 1. The patient is again noted to be status post left lobectomy with left chest drain in sta ble position. Stable opacification of the left hemithorax. 2. Slight interval decrease in op acification of the right hemithorax, likely representing decreasing pulmonary vascular conge stion/decreasing pulmonary edema. 3. No pleural effusion. No pneumothorax RADIA Electronic ally signed by Joshua Waite MD on Jun 23 2017 3:38AM Referring Provider Line: [phone] ID: [id number] X-ray Chest 1 View Result Date: 06/22/2017 NANCY TERRAZAS XR CHEST 1 VIEW 06/22/2017 6:29 AM History: 46 years. Female. Postop tho racotomy Technique: AP supine portable view of the chest at 0627 hours. Compared to 1430 opal rs yesterday. Findings: Left pleural drain angle towards the left lung apex is unchanged in position. No significant effusion or pneumothorax. The patchy airspace density projected ove r the left hemithorax appears unchanged persistent mild pulmonary vascular prominence in the right hemithorax no segmental infiltrate. 1. Postoperative changes of left lobectomy with life support devices unchanged in position . 2. Persistent airspace densities left hemithorax, unchanged. X-ray Chest 1 View Result Date: 06/21/2017 NANCY Lobato NINI 1970 46 years XR CHEST 1 VIEW 06/21/2017 2:19 PM INDICATION: Left lobe ctomy. COMPARISON: April 25, 2017 TECHNIQUE: Chest 1 view, AP view of the chest FINDINGS: Left chest tube overlying the pleural space with the tip near the lung apex. Small residual lower pneumothorax. Diffuse airspace disease of the residual left lung, may represent edema or atelectasis. No dense lung consolidation of the right lung. There is right interstitial edema and pulmonary vascular congestion. No acute osseous abnormality. Left chest tube in expected position. Residual small left pneumothorax. Pulmonary edema. Po ssible left associated atelectasis. 2:3 7 PM Echo Cardiac Adult Limited Result Date: 06/25/2017 Patient Name: NANCY TERRAZAS Date of : 1970 Performing Ph ysician: Pilo Ocampo MD _ INDICATIONS SHORTNESS OF BREATH, LEFT PNEUMOTHORAX, PRIOR STUDY 06/06/2017 CONCL USIONS 1. This was a technically difficult study with suboptimal views. 2. Left ventricular systolic function is hyperdynamic with an estimated EF of >70%. FINDINGS ------- - ECG rhythm: Sinus rhythm. Study: A limited 2-dimensional transthoracic echocardiogram with limited spectral and color flow Doppler was performed. Study: This was a technically diff icult study with suboptimal views. Left Ventricle: Left ventricular systolic function is hyp erdynamic with an estimated EF of >70%. Pericardium: There is no pericardial effusion. Peric ardium: Anterior echo free space present. MEASUREMENTS EDV(Teich): 53.06 ml IVSd: 1.16 cm LVIDd: 3.56 cm LVPWd: 1.05 cm %FS: 45.26 % EF(Teich): 77.52 % ESV(Te ich): 11.92 ml IVSs: 1.31 cm LVIDs: 1.94 cm LVPWs: 1.26 cm SV(Teich): 41.13 ml LVE F MOD A2C: 78.51 % SV MOD A2C: 30.77 ml LVEF MOD A4C: 71.88 % SV MOD A4C: 44.08 ml E F Biplane: 74.07 % LVEDV MOD BP: 49.54 ml LVESV MOD BP: 12.84 ml LVEDV MOD A2C: 39.2 0 ml LVLd A2C: 6.97 cm LVEDV MOD A4C: 61.33 ml LVLd A4C: 6.74 cm LVESV MOD A2C: 8.42 ml LVLs A2C: 5.17 cm LVESV MOD A4C: 17.24 ml LVLs A4C: 5.93 cm Television Engineer: RAUL Awad nticated by: Pilo Ocampo MD Report Date/Time: 06-25-2017 13:16:22 1. This was a technically difficult study with suboptimal views. 2. Left ventricular systol ic function is hyperdynamic with an estimated EF of >70%. Or General Scope Imaging Result Date: 06/21/2017 This is a non-reportable procedure without a radiologist report and is used for image [email or web address] only. Please review the OR procedure report for details on the procedure. Results Procedure Component Value Units Date/Time Respiratory Filmarray [[id number]] Collected: 06/25/17 1129 Specimen: Nasal Swab Updated: 06/25/17 1719 ADENOVIRUS Not Detected CORONAVIRUS 229E Not Detected CORONAVIRUS HKU1 Not Detected CORONAVIRUS NL63 Not Detected CORONAVIRUS OC43 Not Detected HUMAN METAPNEUMOVIRUS Not Detected HUMAN RHINO/ENTERO Not Detected INFLUENZA A Not Detected INFLUENZA B Not Detected PARAINFLUENZA 1 Not Detected PARAINFLUENZA 2 Not Detected PARAINFLUENZA 3 Not Detected PARAINFLUENZA 4 Not Detected RESP SYNCYTIAL VIRUS Not Detected BORDETELLA PERTUSSIS Not Detected CHLAMYDIAE PNEUMONIAE Not Detected MYCOPLASMA PNEUMONIAE Not Detected RESP PANEL INTERP Testing performed by Molecular Methodology ST pneumoniae AG, URI [[id number]] Collected: 06/25/17 1110 Specimen: Urine, Unspecified Source Updated: 06/25/17 1117 Urine culture [[id number]] Collected: 06/22/17 1537 Specimen: Urine, Unspecified Source Updated: 06/23/171950 Specimen Description URINE, COLLECTION NOT GIVEN SPECIAL REQUESTS REFLEX UAIF CULTURE NO GROWTH PROBLEM LIST Principal Problem: Malignant neoplasm of lower lobe of left lung (HCC) Active Problems: Coronary artery disease involving [place] coronary 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 She has been admitted to the ICU for acut e respiratory failure and has been intubated. #1 postoperative acute respiratory distress syndrome point in favor of this diagnosis or acute onset, decreased PaO2/FiO2 less than 200. Points against the diagnosis post intubation clearing of the right side. We will calculate the new PaO2/FiO2 with positive end expiratory pressure. #2 negative pressure pulmonary edema The case was discussed with the manager architectural team. Before intubation it was seen that the p atient was having very rapid shallow breathing. In a morbidly obese the patient with a rest rictive physiology and possible upper airway collapse rapid shallow breathing can lead to ne gative pressure pulmonary edema. This could explain the initial respiratory alkalosis. Maurizio atment would essentially be positive pressure ventilation. This differential diagnosis seem s more likely as there was a rapid clearing of the infiltrate which would not be seen in acu te respiratory distress syndrome. #3 aspiration pneumonia The patient was receiving morphine and complained of chest pain and tightness. There was s ome documentation regarding nausea and vomiting. Again this diagnosis seems to be less obvi ous due to Absence of infiltrate after the intubation. I do not think she has any underlying interstitial lung disease based on her CT chest. Her autoimmune workup, fungal serology all were negative at the time the cavitary lesion was di agnosed. At this time the patient will be managed by the manager architectural team. I will work with them emma chan. I will follow-up the patient when she is extubated or if the manager architectural team reques ts any kind of help Code Status: Full Code Primary Care Physician: Yuriy Cardenas Thank you for allowing me to participate in the care of this patient. Ben Bolton MD 06/25/2017 onversion Transaction , Provider Unknown - 06/24/2017 10:01 AM PDT Consults by Melissa Harris RD, CDE at 06/24/17 1001 Author: Melissa Harris RD, CDE Service: (none) Author Type: Factory Representative Filed: 06/24/17 1010 Date of Service: 06/24/17 1001 Status: Signed Indian Trader: Melissa Harris RD, CDE (Factory Representative) Consult Orders: 1. Inpatient consult to nursing educator [[id number]] ordered by RAMOS Farooq at 06/23/17 8744 Met with pt and pt's daughter - who lives with her. Reports she's had diabetes for 8 years and has been on insulin for 3 years. States she was taking 25 units of Levemir bid and Nov olog with meals, when she was diagnosed with lung cancer reports blood sugars "just jumped u p" and she had to increase her home doses of insulin to: 55 units of Levemir bid, 45 units of Novolog with meals. States her HbA1c went up as well. Reports she follows up at [facility] for her diabetes management. Has had diabetes education. S he does not tolerate metformin. She has a glucometer with strips and lancets and was checki ng faithfully prior to admit. Pt became very tearful when I asked her if she was going to discharge home today. Encourage d to talk to her RN, if she feels like she is not ready to discharge. Pt states she has all supplies needed to manage her diabetes at home and plan to continue to follow up with pcp f or insulin adjustment. Discussed the extreme importance of appropriate blood sugar control - especially in the healing process - pt states understanding and that she will be in contac t with her pcp. Insulin has been increased to 60 units of Levemir bid, 30 units of Humalog routine with jose ls, continues on endotool correctional scale. Will follow for blood sugars - anticipate she will discharge on these doses with pt keeping records and following up with pcp for adjustm ent. Melissa Harris RD, MPH, CDE, Factory Representative 06/24/2017 10:10 AM Magalis Taylor RN - 06/19/2017 2:10 PM PDT Consults by Magalis Diaz RN at 06/19/17 1410 Author: Magalis Diaz RN Service: (none) Author Type: Registered Nurse Filed: 06/19/17 1414 Date of Service: 06/19/171409 Status: Signed Indian Trader: Magalis Diaz RN (Registered Nurse) Consult Orders: 1. Inpatient consult to nursing educator [[id number]] ordered by Rufus Alvarez MD at 0909 Inpatient Factory Representative note. Pt is admitted for lung lobectomy related to lung Ca. A1C 11.1. BG's high. Recommend increa se Levemir to 55 units BID. Pt will be NPO starting 420 midnight, have surgery, then suspect pt will go to ICU on Endo tool. Will follow and see post surgery. Magalis Saint Marks, RN, Inpatient Factory Representative 06/19/2017 2:13 PM documented in t his encounter Miscellaneous Notes Plan of Care - Conversion Transaction, Provider Unknown - 07/02/2017 10:46 AM PDT Plan of Care by Martha Arriaga RN at 07/02/171045 Author: Martha Arriaga RN Service: (none) Author Type: Registered Nurse Filed: 07/02/171045 Date of Service: 07/02/171045 Status: Signed Indian Trader: Martha Arriaga RN (Registered Nurse) Problem: Pain Goal: Patient's pain/discomfort is manageable Assess and monitor patient's pain using appropriate pain scale. Collaborate with interdisci plinary team and initiate plan and interventions as ordered. Re-assess patient's pain level approximately 1-2 hours after pain management intervention. Premedicate as needed. Outcome: Progressing Pt's pain being managed with PRN medications. Problem: Safety Goal: Patient will be injury free during hospitalization Assess and monitor vitals signs, neurological status including level of consciousness and o rientation. Assess patient's risk for falls and implement fall prevention plan of care and i nterventions per hospital policy. Ensure arm band on, uncluttered walking paths in room, adequate room lighting, call light a nd overbed table within reach, bed in low position, wheels locked, side rails up per policy, and non-skid footwear provided. Outcome: Progressing Pt uses call light appropriately. Adequate room lighting and overbed table within reach. lan o f Care - Conversion Transaction, Provider Unknown - 07/02/2017 3:52 AM PDTFormatting of thi s note might be different from the original. Plan of Care by Alycia Hernandez RN at 07/02/17351 Author: Alycia Hernandez RN Service: (none) Author Type: Registered Nurse Filed: 07/02/17351 Date of Service: 07/02/17351 Status: Signed Indian Trader: Alycia Hernandez RN (Registered Nurse) Pain Patient's pain/discomfort is manageable Progressing Pain managed with oxycodone and ultram Safety Patient will be injury free during hospitalization Progressing Patient uses call light appropriately, bed locked in lowest position, non-skid socks on, fo llows safety instructions lan o f Care - Conversion Transaction, Provider Unknown - 07/01/2017 12:58 AM PDTFormatting of thi s note might be different from the original. Plan of Care by Tara Galvan RN at 07/01/1757 Author: Tara Galvan RN Service: Training And Development Director Author Type: Registered Nurse Filed: 07/01/1757 Date of Service: 07/01/1757 Status: Signed Indian Trader: Tara Galvan RN (Registered Nurse) Daily Care Daily care needs are met Progressing Hemodynamic Status Patient's vitals signs are stable Progressing Pain Patient's pain/discomfort is manageable Progressing lan o f Care - Conversion Transaction, Provider Unknown - 06/30/2017 1:50 PM PDTFormatting of thi s note might be different from the original. Plan of Care by Kasandra Mendosa RN at 06/30/171349 Author: Kasandra Mendosa RN Service: (none) Author Type: Registered Nurse Filed: 06/30/171349 Date of Service: 06/30/171349 Status: Signed Indian Trader: Kasandra Mendosa RN (Registered Nurse) Problem: Psychosocial Needs Goal: Demonstrates ability to cope with hospitalization/illness Assess and monitor patients ability to cope with his/her illness. Outcome: Not Progressing lan o f Yi - Art Ren ARNP - 06/29/2017 8:46 AM PDTFormatting of this note might be d ifferent from the original. Plan of Care by Art Ren RN at 06/29/17845 Author: Art Ren RN Service: (none) Author Type: Registered Nurse Filed: 06/29/17845 Date of Service: 06/29/17845 Status: Signed Indian Trader: Art Ren RN (Registered Nurse) Problem: Pain Goal: Patient's pain/discomfort is manageable Assess and monitor patient's pain using appropriate pain scale. Collaborate with interdisci plinary team and initiate plan and interventions as ordered. Re-assess patient's pain level approximately 1-2 hours after pain management intervention. Premedicate as needed. Outcome: Progressing Patient pain management progressing. Patient aware of pain scale, analgesics, alternative pain management options. Problem: Safety Goal: Patient will be injury free during hospitalization Assess and monitor vitals signs, neurological status including level of consciousness and o rientation. Assess patient's risk for falls and implement fall prevention plan of care and i nterventions per hospital policy. Ensure arm band on, uncluttered walking paths in room, adequate room lighting, call light a nd overbed table within reach, bed in low position, wheels locked, side rails up per policy, and non-skid footwear provided. Outcome: Progressing Patient progressing on safety measures while at [facility]. Call light reinforced, fall risk a ssessed. Room kept tidy for ambulation safety. Problem: Daily Care Goal: Daily care needs are met Assess and monitor ability to perform self care and identify potential discharge needs. Outcome: Progressing Patient progressing on daily care needs. Toileting, bathing, hygiene needs addressed. Rylan l continue to educate and encourage good hygiene and daily care practices. lan of Care - C onversion Transaction, Provider Unknown - 06/29/2017 4:47 AM PDTFormatting of this note costa ht be different from the original. Plan of Care by Logan Osborne RN at 06/29/17446 Author: Logan Osborne RN Service: (none) Author Type: Registered Nurse Filed: 06/29/17446 Date of Service: 06/29/17446 Status: Signed Indian Trader: Logan Osborne RN (Registered Nurse) Problem: Safety Goal: Patient will be injury free during hospitalization Assess and monitor vitals signs, neurological status including level of consciousness and o rientation. Assess patient's risk for falls and implement fall prevention plan of care and i nterventions per hospital policy. Ensure arm band on, uncluttered walking paths in room, adequate room lighting, call light a nd overbed table within reach, bed in low position, wheels locked, side rails up per policy, and non-skid footwear provided. Outcome: Progressing Pathway clear. Call light in reach. Calls appropriately. Remains free of injury this stay. Bed in low position. Hourly rounding. iscel jean carlosous - Conversion Transaction, Provider Unknown - 06/28/2017 9:40 AM PDTFormatting of th is note might be different from the original. Treatment Plan by Neena Li CCC-CAN MAKER at 06/28/17939 Author: TERRENCE GuajardoCAN MAKER Service: (none) Author Type: Speech and Ethics Officer ologist Filed: 06/28/17 1005 Date of Service: 06/28/17939 Status: Signed Indian Trader: TERRENCE GuajardoCAN MAKER (Speech and Language Pathologist) BEDSIDE SWALLOW CAN MAKER Last Visit CAN MAKER Received On: 06/28/17 Requires CAN MAKER Follow Up: No Recommendations Liquids Consistency Recommendations: Thin Diet Consistency Recommendation: Regular Recommendations: Set up with meals, Check on patients frequently throught out meals Compensatory Swallowing Strategies: Upright as possible for all oral intake, Remain upright for 30 minutes after meals, Swallow 2 times per bite/sip, Slow rate presentation, Small bit es/sips, Eat/feed slowly Recommended Form of Meds: Meds with recommended liquid, Meds floated in puree Summary: Pt 46 yo female seen for initial swallow assessment, dtr present at bedside. Pt in tubated 2 days and NPO d/t concern from night RN. Pt demo'd OME WFL, voice and cough strong. Pt able to independently feed self, oxygen sats 94+ throughout trials. Pt demo'd no s/sx of aspiration across trials. Recommend regular diet and thin liquids, assist with set-up. ST t o discharge at this time, tolerating baseline diet. Staff Notified: RN Plan of Care Treatment Plan: Discharge from at this time Treatment Frequency: Eval/consult only Care Duration (Days): 1 Days AVS Documentation: Yes Diet: Regular: no restrictions Liquids: Thin liquids: regular consistency CAN MAKER Ready for Discharge: Yes Swallowing Evaluation: Yes Patient Assessment Respiratory Status: O2 via nasual cannula History of Intubation: Yes Length of Intubations (days): 2 days Date extubated: 06/27/17 Behavior/Cognition: Alert, Cooperative Dentition: Adequate Vision: Functional for self-feeding Patient Positioning: Upright in chair Baseline Vocal Quality: Normal Volitional Cough: Strong, Congested Volitional Swallow: Delayed Oral Motor Exam Labial ROM: Within Functional Limits Labial Symmetry: Within Functional Limits Labial Strength: Within Functional Limits Lingual ROM: Within Functional Limits Lingual Symmetry: Within Functional Limits Lingual Strength: Within Functional Limits Facial Symmetry: Within Functional Limits Vocal Quality: Within functional limit Consistencies Consistencies Assessed: Yes Ice Chips Presentation: Spoon Oral Phase: Prolonged mastication, Increased holding time Pharyngeal Phase: No overt signs or symptoms of aspirations, Delayed swallow initiation Thin Presentation: Cup, Straw, Self Fed Oral Phase Thin: Increased hold time Pharyngeal Phase: No overt signs or symptoms of aspiration, Delayed swallow initiated Puree Presentation: Self Fed Oral Phase: Within functional limits Pharyngeal: No overt signs or symptoms of aspiration Dysphagia Mechanically Altered Presentation: Self Fed Oral Phase: Within functional limits Pharyngeal Phase: No overt signs or symptoms of aspiration Regular Presentation: Self Fed Oral Phase: Within functional limits Pharyngeal Phase: No overt signs or symptoms of aspiration Goals are progressing unless otherwise indicated. Dysphagia Goals Custodial Goals: Safe/efficient oral intake Pt will have safe/efficient oral intake : Thin liquids, Regular diet, With min cues, New/re vised goal, Goal met Short Term Goals: Follow swallow precautions Pt will follow swallow precautions : With min supervision, New/revised goal, Goal met Education Completed Education Topics: Dysphagia: Explain results of session, speech-language pathology role, plan of care, most s afe diet and swallow precautions Completed with: [x] Patient [] Spouse [] Significant other [x] Family [] Caregiver [] Other Completed by: [x] Verbal education [] Demonstration [] Handout [] Other: Response to Education: [x] Stated Understanding [] Reinforcement necessary [] Return ed demonstration [] Demonstrated understanding [] No evidence of learning [] Refused Neena Li CCC-CAN MAKER lan o f Care - Conversion Transaction, Provider Unknown - 06/27/2017 1:44 PM PDTFormatting of thi s note might be different from the original. Plan of Care by Stefany Donohue RN at 06/27/17 8993 Author: Stefany Donohue RN Service: (none) Author Type: Registered Nurse Filed: 06/27/171343 Date of Service: 06/27/171343 Status: Signed Indian Trader: Stefany Donohue RN (Registered Nurse) Problem: Hemodynamic Status Goal: Patient's vitals signs are stable Assess and monitor patient's heart rate, rhythm, respiratory rate, peripheral pulses, capil matthew refill, color, body temperature, intake and output, labs and physical activity toleranc e. Observe for signs of chest pain (note location, duration, severity, radiation and assoc iated symptoms such as diaphoresis, nausea, indigestion). Monitor for signs and symptoms of heart failure (eg. shortness of breath, edema of feet/ankles/legs, rapid irregular heart ra te, coughing, wheezing, white/pink blood tinged sputum, sudden weight gain, chest pain). Col laborate with interdisciplinary team and initiate plan and interventions as ordered. Outcome: Progressing Wean vasopressors as able to maintain MAP of 60 or greater lan o f Care - Conversion Transaction, Provider Unknown - 06/26/2017 11:52 PM PDTFormatting of thi s note might be different from the original. Plan of Care by Willy Poe RN at 06/26/172351 Author: Willy Poe RN Service: (none) Author Type: Registered Nurse Filed: 06/26/17 8957 Date of Service: 06/26/172351 Status: Signed Indian Trader: Willy Poe RN (Registered Nurse) Daily Care Daily care needs are met Progressing Discharge Barriers Patient's discharge needs are met Progressing Hemodynamic Status Patient's vitals signs are stable Progressing Inadequate Airway Clearance Patient will achieve/maintain normal respiratory rate/effort Progressing Knowledge Deficit Patient/family/caregiver demonstrates understanding of disease process, treatment plan, medications, and discharge instructions Progressing Mechanical Ventilation Ability to express needs and understand communication Progressing Mobility/activity is maintained at optimum level for patient Progressing Patient will maintain patent airway Progressing Oral health is maintained or improved Progressing ET tube will be managed safely Progressing Pain Patient's pain/discomfort is manageable Progressing Psychosocial Needs Demonstrates ability to cope with hospitalization/illness Progressing Collaborate with patient/family/caregiver to identify patient specific goals for this h ospitalization Progressing Safety Patient will be injury free during hospitalization Progressing Pt is A&O times four, intubated. Central Line started by MD for IV access. Pt has been labi le in MAP <65. Levophed drip started to maintain goal. Restraints DC'd as well for complianc e by patient lan o f Care - Conversion Transaction, Provider Unknown - 06/25/2017 11:55 PM PDTFormatting of thi s note might be different from the original. Plan of Care by Willy Poe RN at 06/25/172354 Author: Willy Poe RN Service: (none) Author Type: Registered Nurse Filed: 06/25/172354 Date of Service: 06/25/172354 Status: Signed Indian Trader: Willy Poe RN (Registered Nurse) Daily Care Daily care needs are met Progressing Discharge Barriers Patient's discharge needs are met Progressing Hemodynamic Status Patient's vitals signs are stable Progressing Inadequate Airway Clearance Patient will achieve/maintain normal respiratory rate/effort Progressing Knowledge Deficit Patient/family/caregiver demonstrates understanding of disease process, treatment plan, medications, and discharge instructions Progressing Mechanical Ventilation Ability to express needs and understand communication Progressing Mobility/activity is maintained at optimum level for patient Progressing Patient will maintain patent airway Progressing Oral health is maintained or improved Progressing ET tube will be managed safely Progressing Pain Patient's pain/discomfort is manageable Progressing Psychosocial Needs Demonstrates ability to cope with hospitalization/illness Progressing Collaborate with patient/family/caregiver to identify patient specific goals for this h ospitalization Progressing Safety Patient will be injury free during hospitalization Progressing lan o f Care - Ramiro Enciso MD - 06/25/2017 4:54 AM PDTFormatting of this note might be diffe rent from the original. Plan of Care by Ramiro Enciso MD at 06/25/17453 Author: Ramiro Enciso MD Service: Hospitalist Author Type: Physician Filed: 06/25/172153 Date of Service: 06/25/17453 Status: Addendum Indian Trader: Ramiro Enciso MD (Physician) Related Notes: Original Note by Ramiro Enciso MD (Physician) filed at 06/25/17 0723 Notified by RN patient has increased work of breathing and is hypoxic and is now on 10 L Ox ymask saturating 92 percent. Ordered BiPAP and chest x-ray. ADDENDUM: 5:49AM Evaluated the patient at the bedside. Tolerating BiPAP well. Blood pressures, vital signs stable. Chest x-ray shows bilateral inf iltrates. The patient complains of left chest pain at the surgical site. However, she seems to be comfortable and resting. Therefore we will avoid further narcotic medications. Lungs' bilateral coarse breath sounds noted worse on the left. Bilateral lower extremities have tra ce pitting edema. ASSESSMENT AND PLAN Possible fluid overload and pulmonary edema. The patient denies aspiration. Recent echocard iogram shows preserved left ventricular ejection fraction. Daughter states she has a history of congestive heart failure and she is on Lasix at home. Possibly she had diastolic heart f ailure then. The a.m. hospitalist to consult the patient's regulator tester Dr. Liu. ORDERED LASIX 40 MG IV X 1 DOSE ADDENDUM: 6:29AM X-ray chest 1 view Impression 1. Mild cardiomegaly with worsening bilateral pulmonary opacities and possible small left effusion. 2. Suspect 1 cm residual left apical pneumothorax. [facility] Electron ically signed by Eric Cochran MD on Jun 25 2017 5:54AM Referring Provider Line: [phone] 5SITE ID: [id number] LEFT APICAL PNEUMOTHORAX : RN TO NOTIFY CTS. Addendum: 7:22am EKG T prolongation of 695 with sinus tachycardia ventricular rate of 102 AL interval 154 QR S duration is normal and there are no acute STEMI.Avoid QT prolonging med's. I have signed out the case to Dr. Bj Metz lan of Care - Conve rsion Transaction, Provider Unknown - 06/25/2017 4:27 AM PDTFormatting of this note might b e different from the original. Plan of Care by Natasha Amor RN at 06/25/17426 Author: Natasha Amor RN Service: (none) Author Type: Registered Nurse Filed: 06/25/17426 Date of Service: 06/25/17426 Status: Signed Indian Trader: Natasha Amor RN (Registered Nurse) Problem: Pain Goal: Patient's pain/discomfort is manageable Assess and monitor patient's pain using appropriate pain scale. Collaborate with interdisci plinary team and initiate plan and interventions as ordered. Re-assess patient's pain level approximately 1-2 hours after pain management intervention. Premedicate as needed. Outcome: Not Progressing Pt continues to rate pain at a 7-10/10 despite oral oxycodone 10mg given q4 as ordered, oxana ng with q6 tylenol/ibuprofen. Pt was very anxious, rating pain 10/10, HR 100-110, describing pain as a burning sensation on her left side (surgical site) Dilaudid 0.5mg given once for break through relief. This RN offered ice packs, hot packs & repositioning to help alleviate pain. lan o f Care - Conversion Transaction, Provider Unknown - 06/24/2017 1:18 PM PDTFormatting of thi s note might be different from the original. Plan of Care by Drea Mixon RN at 06/24/17 1318 Author: Drea Mixon RN Service: (none) Author Type: Registered Nurse Filed: 06/24/17 1324 Date of Service: 06/24/17 1318 Status: Signed Indian Trader: Drea Mixon RN (Registered Nurse) Problem: Pain Goal: Patient's pain/discomfort is manageable Outcome: Progressing Pt medicated for pain prn, see mar. Problem: Safety Goal: Patient will be injury free during hospitalization Outcome: Progressing Pt has call light within reach and pt uses for needs and ambulation. Non skid socks on, fam latanya at bedside. Problem: Daily Care Goal: Daily care needs are met Assess and monitor ability to perform self care and identify potential discharge needs. Outcome: Progressing Hourly rounding provided, assistance provided prn lan o f Care - Conversion Transaction, Provider Unknown - 06/24/2017 2:36 AM PDTFormatting of thi s note might be different from the original. Plan of Care by Kelly Mckeon RN at 06/24/17235 Author: Kelly Mckeon RN Service: (none) Author Type: Registered Nurse Filed: 06/24/17235 Date of Service: 06/24/17235 Status: Signed Indian Trader: Kelly Mckeon RN (Registered Nurse) Problem: Pain Goal: Patient's pain/discomfort is manageable Assess and monitor patient's pain using appropriate pain scale. Collaborate with interdisci plinary team and initiate plan and interventions as ordered. Re-assess patient's pain level approximately 1-2 hours after pain management intervention. Premedicate as needed. Outcome: Progressing Pain has been managed well with PRN medication during this shift so far. WCM. lan o f Care - Conversion Transaction, Provider Unknown - 06/23/2017 8:53 AM PDTFormatting of thi s note might be different from the original. Plan of Care by Belkis Merino RN at 06/23/17 0853 Author: Belkis Merino RN Service: (none) Author Type: Registered Nurse Filed: 06/23/1754 Date of Service: 06/23/17852 Status: Signed Indian Trader: Belkis Merino RN (Registered Nurse) Pain Patient's pain/discomfort is manageable Progressing Patient continues to work with staff to fine an appropriate/adequate pain medication regime attila Merino RN 06/23/17 @ 0854 lan o f Care - Conversion Transaction, Provider Unknown - 06/22/2017 11:10 PM PDTFormatting of thi s note might be different from the original. Plan of Care by Kelly Mckeon RN at 06/22/172309 Author: Kelly Mckeon RN Service: (none) Author Type: Registered Nurse Filed: 06/22/172309 Date of Service: 06/22/172309 Status: Signed Indian Trader: Kelly Mckeon RN (Registered Nurse) Problem: Safety Goal: Patient will be injury free during hospitalization Assess and monitor vitals signs, neurological status including level of consciousness and o rientation. Assess patient's risk for falls and implement fall prevention plan of care and i nterventions per hospital policy. Ensure arm band on, uncluttered walking paths in room, adequate room lighting, call light a nd overbed table within reach, bed in low position, wheels locked, side rails up per policy, and non-skid footwear provided. Outcome: Progressing Pt arm band on, bed is low and locked, non-slip socks on, call light within reach, room yenny e of clutter. WCM. isclora falk - Conversion Transaction, Provider Unknown - 06/22/2017 3:20 PM PDTFormatting of th is note might be different from the original. Treatment Plan by VICKY Lutz at 06/22/17 1520 Author: VICKY Lutz Service: (none) Author Type: Occupational Therapist Filed: 06/22/17 7521 Date of Service: 06/22/17 1520 Status: Signed Indian Trader: VICKY Lutz (Occupational Therapist) OCCUPATIONAL THERAPY EVALUATION OT Received On: 06/22/17 Reason for Treatment: Other (comment) (L lower lobectomy, mediastinal lymphadenectomy) Requires OT Follow Up: Yes OT Eval/Reassessment Date: 06/22/17 Assistance Required: 1 person Clay Structure Builder And Servicer Needed: No Family/Caregiver Present: Yes Recommendation: Home with daytime assist, Home with nighttime assist (with assist from james mcbride) Equipment Recommended: Tub transfer bench, Shower chair with back, Technical Stenographer, Sponge long dumont dled, AD walker (4WW) Requires OT Follow Up: Yes OT Ready for Discharge: Yes Recommendation Comments Anticipate discharge home with family support when medically ready Plan Treatment Interventions: ADL retraining, IADL retraining, Functional transfer training, Fun ctional dynamic activities, AROM, Therapeutic exercises, Endurance training, Patient/Family training, Equipment eval/education, Compensatory technique education OT Frequency: 3-5 x/wk Care Duration (Days): 10 Days Requires OT Follow Up: Yes Summary OT eval orders received/verified. Chart reviewed-pt with significant past medical history of CAD with multiple stents, HTN, DM. Pt s/p VATS L lower lobectomy, mediastinal lymphadenec chris. Pt reports 5/10 (which pain was 8/10 prior to OT arrival)-RN provided medication durin g session. Pt tolerated activity. BP @ 112/69, heart rate 94. O2 sats 94. Pt continues to be nefit from acute skilled OT services to further address ADLs, AE training, ECTs/pacing, walk er technique. Focus for next session: ECTs/pacing, walker technique, AE training Follow up OT only? [] Yes [x] No Precautions Other Precautions: Fall precautions, chest tube Home Environment Type of Home: Apartment upper level Home Exterior Layout: Rail bilateral, 7-10 steps Home Interior Layout: Lives on main level with bedroom/bathroom Bathroom Shower/Tub: Tub/shower unit Bathroom Toilet: Standard Bathroom Equipment: Hand-held shower head, Raised toilet seat Bathroom Accessibility: Accessible via walker Home Equipment: Cane single point Prior Function Level of [place]: Independent with functional mobility, Independent with ADLs, Indepe ndent with IADLs, Driving in community Falls in Past Year: No Lives With: Spouse, Adult child(malinda) Receives Help From: Family ADL Assistance: Independent Home ADL's: Independent Employment: On disability Leisure: Hobbies-yes (Comment) (Walking, baking) ADL Where Eating Assessed: Chair/Table Eating Assistance: Independent (limited appetite) Grooming Assistance: Standby assist (with use of the 4WW for stability) Grooming impacted by: Endurance, Shortness of breath (SOB), Safety concerns LE Dressing Assistance: Moderate assist (dtr assisted in donning underwear) Lower body dressing impacted by: Endurance, Safety concerns, Pain Toileting Assistance with Device: Minimal assist Toileting impacted by: Endurance, Shortness of breath (SOB), Safety concerns Functional Assistance: Standby assist (with use of the 4WW) Toileting transfer impacted by: Endurance, Safety concerns Additional Comments: Pt ambulating into bathroom with use of the 4WW upon OT arrival. Pt ap pears to function better with the use of a 4WW, and appears safe when ambulating. Pt limited by pain, and RN present to provide medication. VCs for walker technique/placement. Pt was a ble to complete personal hygiene, and dadextere present to assist with management of clothing. Pt stood to wash/rinse hands at sink, and then pt ambulated to recliner. Reviewed benefits to use of AE for bathing/dressing (AE handout provided).Pt reports dtr plans to be available for ADLs prn once home. Vision-Basic Assessment Current Vision: Wears glasses Cognition Overall Cognitive Status: Within Functional Limits Orientation Level: Oriented Oriented: x 4 Sensation Additional Comments: Reports neuropathy in feet. Pt reports 5/10 pain. RN provided medicati on during OT evaluation. Perception Inattention/Neglect: Appears intact Initiation: Appears intact Motor Planning: Appears intact Perseveration: Not present RUE Assessment: Within Functional Limits LUE Assessment: Within Functional Limits Hand Function Gross Grasp: Functional Functional Gross Grasp: Able to grasp objects without difficulty Coordination: Functional Assessment Assessment: Decreased ADL status, Decreased endurance, Decreased self-care trans, Decreased high-level ADLs Prognosis: Good Goal Formulation: Patient, Family Activity Tolerance: Patient limited by pain, Patient tolerated treatment well Safety Devices in Place: Yes Type of Devices: Call lite in place (seated in bed; dtr present in room) Occupational Therapy Goals ADL Goals Pt Will Perform All ADL's: (Pt will tolerate standing act for approx 5 mins, SBA, AD) Pt Will Perform LE Dressing: At edge of bed, In chair, With min assist, Supervision, With a daptive equipment LE Dressing Adaptive Equipment: Technical Stenographer, Sock aid Functional Transfer Goals Pt Will Perform All Functional Transfers: With supervision, Mod independently, With assisti ve device Assistive Devices Functional Transfer: Walker four wheeled Barriers to d/c at this time include: [] Home environment [] Family support [x] Equipment needs see above for details [] Cognitive deficits impacting functional independence [x] Physical deficits impacting functional independence [x] Self-care deficits impacting functional independence [x] Other -stairs into upper level apartment Pain The patient reported pain rated at a 5/10. RN present to provide medication Education Completed: Education Topics: OT role, ADLs, AE recommendations Completed with: [x] Patient [] Spouse [] Significant other [x] Family [] Caregiver [] Other Completed by :[x] Verbal education [x] Demonstration [x] Handout [] Other: Response to Education: [x] Stated Understanding [x] Reinforcement necessary [x] Returned demonstration [x] Demonstrated understanding [] No evidence of learning [] Refused Low - 11044 Moderate - 90451 High - 44695 History [] Brief history including review of medical record [x] Expanded review of medica l records; additional review of physical, cognitive, or psychosocial skills [] Review of sc dical records; extensive additional review of physical, cognitive, or psychosocial skills Examination [] Identification of 1-3 performance deficits [x]Identification of 3-5 perfo rmance deficits [] Identification of 5 or more performance deficits Decision Making [] No comorbidities that affect occupational performance; modification of tasks or assistance is not needed to complete eval [x] May present with comorbidities; mini mal to moderate modification of tasks or assistance is needed to complete eval [] Presents with comorbidities; significant modification of tasks or assistance is needed to complete e blessing Clinical Decision Making Complexity: [] Low 76682 [x] Moderate 01061 [] High 28452 lan o f Care - Conversion Transaction, Provider Unknown - 06/22/2017 1:10 PM PDTFormatting of thi s note might be different from the original. Plan of Care by SN Walker at 06/22/17 1310 Author: SN Walker Service: (none) Author Type: Framer Filed: 06/22/17 1310 Date of Service: 06/22/171309 Status: Signed Indian Trader: SN Walker (Framer) Problem: Psychosocial Needs Goal: Demonstrates ability to cope with hospitalization/illness Assess and monitor patients ability to cope with his/her illness. Outcome: Progressing Patient verbalizes feelings and concerns appropriately. Patient's daughter is included in c are. lan o f Care - Conversion Transaction, Provider Unknown - 06/22/2017 1:08 PM PDTFormatting of thi s note might be different from the original. Plan of Care by SN Walker at 06/22/17 1308 Author: SN Walker Service: (none) Author Type: Framer Filed: 06/22/17 1308 Date of Service: 06/22/171307 Status: Signed Indian Trader: SN Walker (Framer) Problem: Safety Goal: Patient will be injury free during hospitalization Assess and monitor vitals signs, neurological status including level of consciousness and o rientation. Assess patient's risk for falls and implement fall prevention plan of care and i nterventions per hospital policy. Ensure arm band on, uncluttered walking paths in room, adequate room lighting, call light a nd overbed table within reach, bed in low position, wheels locked, side rails up per policy, and non-skid footwear provided. Outcome: Progressing Safety precautions are implemented per hospital policy. lan o f Care - Conversion Transaction, Provider Unknown - 06/22/2017 1:08 PM PDTFormatting of thi s note might be different from the original. Plan of Care by SN Walker at 06/22/17 1308 Author: SN Walker Service: (none) Author Type: Framer Filed: 06/22/17 130 Date of Service: 06/22/171307 Status: Signed Indian Trader: SN Walker (Framer) Problem: Pain Goal: Patient's pain/discomfort is manageable Assess and monitor patient's pain using appropriate pain scale. Collaborate with interdisci plinary team and initiate plan and interventions as ordered. Re-assess patient's pain level approximately 1-2 hours after pain management intervention. Premedicate as needed. Outcome: Progressing Patient uses the appropriate pain scale to rate pain. Interventions are implemented to keep patient's pain level at a tolerable level with medications. iscel laneous - Conversion Transaction, Provider Unknown - 06/22/2017 9:08 AM PDTFormatting of th is note might be different from the original. Treatment Plan by Raquel Guevara PT at 06/22/17 09 Author: Raquel Guevara PT Service: (none) Author Type: Physical Therapist Filed: 06/22/1754 Date of Service: 06/22/17907 Status: Signed Indian Trader: Raquel Guevara PT (Physical Therapist) PHYSICAL THERAPY EVALUATION PT Received On: 06/22/17 Reason for Treatment: Other (comment) (VATS L lower lobectomy, mediastinal lymphadenectomy) Requires PT Follow Up: Yes Follow up PT Only?: No Focus for Next Treatment: Stair Training, Equipment Trial (ongoing gait assessment with 4WW ) PT Eval/Reassessment Date: 06/22/17 Assistance Required: 1 person Clay Structure Builder And Servicer Needed: No Recommendations: Home Assist Equipment Recommended: (possibly 4WW) Recommendation Comments: Pt will likely be appropriate to discharge home with assist from h er daughter and her son. Pt's daughter does not currently work and would be available to ass ist 24/09 as needed. Pt does have 6 steps to enter her apartment; will attempt stair training at upcoming session as we were limited in attempting today due to nausea/emesis. Plan Treatment/Interventions: Assist d/c plannning, Balance training, Bed mobility training, Fam latanya training, Gait training, Monitor vital signs, Stair training, Therapeutic exercise, Louise sfer training PT Frequency: 5-7x/wk, Once per day Care Duration (# of days): 7 # of days Summary Comments: Chart reviewed, initial evaluation completed. Per H&P, pt had biopsy done of L lo wer lung lesion on 04/25/17 which showed well differentiated adeno CA. Pt presents as direct admit for L lower lung surgery. Pt supine in bed upon PT arrival, agreeable to participate. Pt reports she has 7/10 pain and had pain medication 10 min ago. Pt's daughter present kennethu marilin. Pt ambulated 60 ft with 4WW, experiencing one bout of nausea and subsequent emesis. C NA provided pt emesis bag and manual w/c placed behind pt for safety, however pt decling to sit. Pt returned to her room and stood by the sink with supervision assist as she rinsed her mouth with water. Pt notes that she is sensitive to medication, and this is a typical respo nse for her. Would like to attempt stair training at next session to assess safety and progr ess ambulation distance if appropriate. Vitals before activity: BP 118/67, HR 94. Pt with ne eds met at end of session. Precautions Other Precautions: L chest tube Cognition Overall Cognitive Status: Within Functional Limits Orientation Level: Oriented Oriented: x 4 Assessment of Patient Status Assessment of Patient Status: Decreased functional mobility, Decreased ADL status, Decreas ed endurance, Pain Prognosis: Should progress with skilled therapy intervention Home Environment Type of Home: Apartment upper level Home Exterior Layout: Rail bilateral, Flight one Home Interior Layout: Lives on main level with bedroom/bathroom Bathroom Shower/Tub: Tub/shower unit Bathroom Toilet: Standard Bathroom Equipment: Hand-held shower head Bathroom Accessibility: Accessible via walker Home Equipment: Cane single point Additional Comments: Pt reports she used SPC following lumbar spine fusion, however states that she does not currently ambulate with SPC. Prior Function Level of [place]: Independent with functional mobility, Independent with ADLs, Indepe ndent with IADLs, Driving in community, Community distance Falls in Past Year: No Lives With: Spouse, Adult child(malinda) Employment: On disability RLE Assessment: Within Functional Limits LLE Assessment: Within Functional Limits Sensation Light Touch: No apparent deficits Perception Inattention/Neglect: Appears intact Initiation: Appears intact Motor Planning: Appears intact Perseveration: Not present Proprioception Proprioception: No apparent deficit Vision Current Vision: Wears glasses FUNCTIONAL MOBILITY Bed Mobility Supine to Sit: Supervision Sit to Supine: Supervision Scooting : Supervision Transfers Sit to/from Stand: Standby assist Ambulation Maximal Ambulation Distance (feet): 60, 20 Total Ambulation Distance (feet): 80 Ambulation Assistance: Standby assist Distance limited by?: Patient's ability Pattern: Alternating, Decreased ousmane, Right step height adequate, Left step height adequ ate Assistive Device: Walker 4 wheeled Stairs Stairs Assistance: Unable to assess (Comment) THERAPEUTIC EXERCISE Activity Tolerance: Other (Comment) (limited due to nausea and emesis) Nurse Made Aware: RN present and aware Safety Devices in Place: (call light within reach) Restraints Initially in Place: No The patient reported pain rated at a 7/10. RN was notified. Pain medication administered 10 min prior to PT arrival, per pt report. Education Completed: Education Topics: [x] Rationale for PT [x] PT POC [x] DC planning [x] Precautions [] Exercises [x] Bed mobility [x] Transfer training with hand placement [x] Gait training [] Stair training [x] Use of gait belt [] Other Completed with: [x] Patient [] Spouse [] Significant other [x] Family [] Caregiver [] Other Completed by: [x] Verbal education [x] Demonstration [] Handout [] Other: Response to Education: [x] Stated Understanding [] Reinforcement necessary [] Returned demonstration [] Demonstrated understanding [] No evidence of learning [] Refused Physical Therapy Goals PT Goals Goal Formulation: With patient Pt Will Go Supine To Sit: Independently Pt Will Go Sit To Supine: Independently Pt Will Transfer Sit to Stand: Independently Pt Will Ambulate: 101-149 feet Ambulate Level Assist: With modified independence Ambulate with Assistive Device: Least restricitve device Pt Will Go Up / Down Stairs: 6-10 stairs (6 NANCY) Stairs Level of Assist: With modified independence Up/Down Stairs Technique: Step-to Low - 52429 Moderate - 83893 High - 77654 History [] no personal factors &/or comorbidities [x] 1-2 personal factors &/or comorbidit ies [] 3 or more personal factors &/or comorbidities Examination [] 1-2 elements [x] 3 elements [x] 4 or more elements Clinical Presentation [x] stable [] evolving [] unstable Clinical Decision Making Complexity: [x] Low 79402 [] Moderate 57929 [] High 9 7163 lan o f Care - Conversion Transaction, Provider Unknown - 06/22/2017 4:39 AM PDTFormatting of thi s note might be different from the original. Plan of Care by Kelly Mckeon RN at 06/22/17438 Author: Kelly Mckeon RN Service: (none) Author Type: Registered Nurse Filed: 06/22/17438 Date of Service: 06/22/17438 Status: Signed Indian Trader: Kelly Mckeon RN (Registered Nurse) Problem: Safety Goal: Patient will be injury free during hospitalization Assess and monitor vitals signs, neurological status including level of consciousness and o rientation. Assess patient's risk for falls and implement fall prevention plan of care and i nterventions per hospital policy. Ensure arm band on, uncluttered walking paths in room, adequate room lighting, call light a nd overbed table within reach, bed in low position, wheels locked, side rails up per policy, and non-skid footwear provided. Outcome: Progressing Arm band on, bed is low and locked, non-slip socks on, call light within reach, pt uses alex l light appropriately, room free of clutter. lan o f Care - Conversion Transaction, Provider Unknown - 06/21/2017 5:54 PM PDTFormatting of thi s note might be different from the original. Plan of Care by Traci Ohara RN at 06/21/171753 Author: Traci Ohara RN Service: (none) Author Type: Registered Nurse Filed: 06/21/171754 Date of Service: 06/21/171753 Status: Signed Indian Trader: Traci Ohara RN (Registered Nurse) Problem: Safety Goal: Patient will be injury free during hospitalization Assess and monitor vitals signs, neurological status including level of consciousness and o rientation. Assess patient's risk for falls and implement fall prevention plan of care and i nterventions per hospital policy. Ensure arm band on, uncluttered walking paths in room, adequate room lighting, call light a nd overbed table within reach, bed in low position, wheels locked, side rails up per policy, and non-skid footwear provided. Outcome: Progressing Sitter at bedside, frequent rounding performed, bed wheels locked, bed in low position lan o f Care - Rufus Alvarez MD - 06/21/2017 4:49 PM PDTFormatting of this note might be dif ferent from the original. Plan of Care by Rufus Alvarez MD at 06/21/171648 Author: Rufus Alvarez MD Service: (none) Author Type: Physician Filed: 06/21/171648 Date of Service: 06/21/171648 Status: Signed Indian Trader: Rufus Alvarez MD (Physician) Pt remains in PACU Per CTS note 06/18 hospitalist service to remain primary until Surgery Therefore pt would be under CTS after OR p Note - Rafael Wade MD - 06/21/2017 3:45 PM PDTFormatting of this note might be different from the o riginal. Op Note by Rafael Wade MD at 06/21/17 1578 Author: Rafael Wade MD Service: Cardiac, Thoracic, and Vascular Surgery Author Typ e: Physician Filed: 06/21/17 1610 Date of Service: 06/21/17 3419 Status: Signed Indian Trader: Rafael Wade MD (Physician) [facility] Service: Cardiothoracic Surgery Operative Note Pre-operative Diagnosis: #1 Left lower lobe lung adenocarcinoma (2.7cm), biopsy-proven #2 Coronary artery disease with history of multiple myocardial infarctions requiring multip le stents/balloon angioplasty, most recently in Feb 2017 #3 HTN #4DM #5Asthma #6History of tobacco use #7Chronic back pain Post-operative Diagnosis: Same Procedure(s): - VATS assisted left lower lobectomy - Mediastinal lymphadenectomy (LN stations 5,6,7,9, and 10) Surgeon: Rafael Wade MD Carton Catcher(s): Pardeep Zamora MD Anesthesia: General endotrachial anesthesia Estimated Blood Loss: Less Than 100 ml Indications: Treatment of lug cancer Findings: No evidence of metastasis. VATS assisted lobectomy was performed (requiring exte nsion of anterior incision few centimeters to complete dissection). Sent all specimens to pa ology. Complications: None Description of Procedure: Description of Procedure: The patient was brought to the operating room and placed in the supine position. General en dotracheal anesthesia was induced and appropriate lines were placed. The patient was then po sitioned in a right lateral decubitus position with the left side up. The chest was prepped and draped again in the usual sterile fashion. A total of three small incisions were created for thoracoscopic lobectomy; one incision posteriorly just inferior to scapular tip, one in cision inferiorly at the mid axillary line, and one incision superiorly and anteriorly at th e level of major fissure. Thoracoscopic exploration did not reveal any evidence of pleural m etastasis. Dissection was then carried down with electrocautery and bluntly taking down the inferior pulmonary ligament and sent station [address] LN topathology. The inferior pulmonary vein w as identified and dissected free. Vessel loop was passed around the inferior pulmonary vein and was divided with EndoGIA stapler (30 mm vascular load, perdomo color). Dissection was contin ued and identified the left lower lobe bronchus; vessel loop was passed around and placed st apler (45 mm extra thick load, black color). We tested before dividing the bronchus and conf ormed that the upper lob inflated well. Lymph nodes at station 5, 6, 7, and 10 were sent for pathology. We then turned our attention to the fissure. It was not complete and the PA nathan ry was not visible. Dissection was carried down on the fissure to identify the PA branches, but there was no good exposure; therefore, we extended the anterior incision few centimeters for better exposure. We identified the ongoing PA but terminal branches could not be visual ized. Several stapler loads (45 mm extra thick, black color) were used to divide the fissure at a level below the PA branches to the upper lobe. The bronchial stump was tested under wa ter with high positive pressure and there was no leak. A 28-[place] straight chest tube was p laced through the inferior incision. Hemostasis was assured. All wounds were closed with abs orbable sutures. The patient was extubated in the OR and was transferred to the recovery room in stable cond ition. Condition: Stable Electronically signed by: Rafael Wade M.D. Cardiothoracic Surgery 06/21/2017 4:08 PM lan of Care - Con version Transaction, Provider Unknown - 06/21/2017 2:58 AM PDT Plan of Care by Natasha Bethea RN at 06/21/17257 Author: Natasha Bethea RN Service: (none) Author Type: Registered Nurse Filed: 06/21/17257 Date of Service: 06/21/17257 Status: Signed Indian Trader: Natasha Bethea RN (Registered Nurse) Problem: Pain Goal: Patient's pain/discomfort is manageable Assess and monitor patient's pain using appropriate pain scale. Collaborate with interdisci plinary team and initiate plan and interventions as ordered. Re-assess patient's pain level approximately 1-2 hours after pain management intervention. Premedicate as needed. Outcome: Progressing Pt able to verbalize pain on 0-10 scale, pt pain is managed with prn's Problem: Daily Care Goal: Daily care needs are met Assess and monitor ability to perform self care and identify potential discharge needs. Outcome: Progressing Pt is independent with adl's lan o f Care - Conversion Transaction, Provider Unknown - 06/20/2017 11:22 AM PDTFormatting of thi s note might be different from the original. Plan of Care by Pavithra Sewell RN at 06/20/171121 Author: Pavithra Sewell RN Service: (none) Author Type: Registered Nurse Filed: 06/20/171123 Date of Service: 06/20/171121 Status: Signed Indian Trader: Pavithra Sewell RN (Registered Nurse) Daily Care Daily care needs are met Progressing Pain Patient's pain/discomfort is manageable Progressing Safety Patient will be injury free during hospitalization Progressing ADL needs met, pain management improving- PRN pain medication and nonpharmacologic measures in use. Remains free of injury during hospitalization, states understanding of fall prevent ion measures. Will continue to monitor. PAVITHRA SEWELL RN lan o f Care - Vale Santiago MD - 06/20/2017 7:01 AM PDT Plan of Care by Vale Santiago MD at 06/20/17700 Author: Vale Santiago MD Service: Infectious Disease Author Type: Physician Filed: 06/28/1702 Date of Service: 06/20/17700 Status: Signed Indian Trader: Vale Santiago MD (Physician) Case discussed with Dr. Patel Patient is currently on empiric Zosyn/Levaquin and vancomycin for possible HAP. Training And Development Director service will be managing patient's antibiotics at this time lan of Care - Conversion Transaction, Provider Unknown - 06/20/2017 2:04 AM PDTFormatting of this note mi ght be different from the original. Plan of Care by Alycia Hernandez RN at 06/20/17203 Author: Alycia Hernandez RN Service: (none) Author Type: Registered Nurse Filed: 06/20/17203 Date of Service: 06/20/17203 Status: Signed Indian Trader: Alycia Hernandez RN (Registered Nurse) Pain Patient's pain/discomfort is manageable Progressing Chronic back pain managed with heating pad and PRN [place] Safety Patient will be injury free during hospitalization Progressing Patient uses call light appropriately, bed locked in lowest position, non-skid socks on, fo llows safety instructions. Ambulates safely independently in room, family at bedside. lan o f Care - Conversion Transaction, Provider Unknown - 06/19/2017 5:02 PM PDTFormatting of thi s note might be different from the original. Plan of Care by Hollie Ennis RN at 06/19/171701 Author: Hollie Ennis RN Service: (none) Author Type: Registered Nurse Filed: 06/19/171703 Date of Service: 06/19/171701 Status: Signed Indian Trader: Hollie Ennis RN (Registered Nurse) Blood sugar 300s all day, pre-prandial increased to 45 units which is home dose plus SSI. K pad utilized to help with back pain. Anti-anxiety medication given and avail PRN. Integrell in cont. Hollie Ennis RN Safety Patient will be injury free during hospitalization Progressing Cont education on safety precautions lan o f Care - Conversion Transaction, Provider Unknown - 06/19/2017 6:29 AM PDTFormatting of thi s note might be different from the original. Plan of Care by Madison Flores RN at 06/19/17628 Author: Madison Flores RN Service: (none) Author Type: Registered Nurse Filed: 06/19/17628 Date of Service: 06/19/17628 Status: Signed Indian Trader: Madison Flores RN (Registered Nurse) VSS, afebrile overnight. Satting well on room air. Complains only of back pain, medicated w ith PRN norco. Hourly rounding otherwise uneventful. Madison Flores RN 06/19/2017 6:28 AM Pain Goal: Patient s pain/discomfort is manageable Assess and monitor patient s pain using appropriate pain scale. Collaborate with interdis ciplinary team and initiate plan and interventions as ordered. Re-assess patient s pain le roz approximately 1-2 hours after pain management intervention. Premedicate as needed. Outcome: Progressing Patient states pain is under control on current regimen. Will continue to monitor and provi de medication as well as comfort measures as needed. Safety Goal: Patient will be injury free during hospitalization Assess and monitor vitals signs, neurological status including level of consciousness and o rientation. Assess patient s risk for falls and implement fall prevention plan of care and interventions per hospital policy. Ensure arm band on, uncluttered walking paths in room, adequate room lighting, call light a nd overbed table within reach, bed in low position, wheels locked, side rails up per policy, and non-skid footwear provided. Outcome: Progressing Patient will remain free from falls during hospital visit. Bed in lowest position. Room yenny e from clutter. Call light within reach. Fall Prevention Goal: No Falls during Hospital Stay Outcome: Progressing Maintain bed in low, locked position at all times. [place] patient and family to hospital surroundings. Provide non-skid slippers. Call light within reach. Hourly rounding performed per standard. Discharge Goal: Patient's discharge needs are met. Outcome: Progressing Working with ancillary staff and Iron Piler to identify discharge barriers and meet patie nt's discharge needs lan o f Care - Conversion Transaction, Provider Unknown - 06/18/2017 5:52 PM PDTFormatting of thi s note might be different from the original. Plan of Care by Hollie Ennis RN at 06/18/171751 Author: Hollie Ennis RN Service: (none) Author Type: Registered Nurse Filed: 06/18/171752 Date of Service: 06/18/171751 Status: Signed Indian Trader: Hollie Ennis RN (Registered Nurse) Integrmaci gtt cont. Hourly rounding uneventful. Hollie Ennis RN Safety Patient will be injury free during hospitalization Progressing Pt educated on safety precautions lan o f Yi - Rufus Alvarez MD - 06/18/2017 4:56 PM PDTFormatting of this note might be dif ferent from the original. Plan of Care by Rufus Alvarez MD at 06/18/171655 Author: Rufus Alvarez MD Service: (none) Author Type: Physician Filed: 06/18/171656 Date of Service: 06/18/171655 Status: Addendum Indian Trader: Rufus Alvarez MD (Physician) Related Notes: Original Note by Rufus Alvarez MD (Physician) filed at 06/18/171656 Pt seen and examined VS stable Reports she takes norco 5-325 mg up to 6x aday prn for pain and since she has been lying d own she has had increasing back pain Will order for severe pain prn Otherwise, stable, awaiting surgery NPO ordered per Surgical service lan of Care - Con version Transaction, Provider Unknown - 06/18/2017 5:15 AM PDT Plan of Care by Madison Flores RN at 06/18/17514 Author: Madison Flores RN Service: (none) Author Type: Registered Nurse Filed: 06/18/17625 Date of Service: 06/18/17514 Status: Signed Indian Trader: Madison Flores RN (Registered Nurse) Pain Goal: Patient s pain/discomfort is manageable Assess and monitor patient s pain using appropriate pain scale. Collaborate with interdis ciplinary team and initiate plan and interventions as ordered. Re-assess patient s pain le roz approximately 1-2 hours after pain management intervention. Premedicate as needed. Outcome: Progressing Patient states pain is under control on current regimen. Will continue to monitor and provi de medication as well as comfort measures as needed. Safety Goal: Patient will be injury free during hospitalization Assess and monitor vitals signs, neurological status including level of consciousness and o rientation. Assess patient s risk for falls and implement fall prevention plan of care and interventions per hospital policy. Ensure arm band on, uncluttered walking paths in room, adequate room lighting, call light a nd overbed table within reach, bed in low position, wheels locked, side rails up per policy, and non-skid footwear provided. Outcome: Progressing Patient will remain free from falls during hospital visit. Bed in lowest position. Room yenny e from clutter. Call light within reach. Fall Prevention Goal: No Falls during Hospital Stay Outcome: Progressing Maintain bed in low, locked position at all times. [place] patient and family to hospital surroundings. Provide non-skid slippers. Call light within reach. Hourly rounding performed per standard. Discharge Goal: Patient's discharge needs are met. Outcome: Progressing Working with ancillary staff and Iron Piler to identify discharge barriers and meet patie nt's discharge needs docume nted in this encounter Plan of Treatment Not on filedocumented as of this encounter Procedures + +--------+ + + + | Procedure Name | Priori | Date/Time | Associated Diagnosis | Comments | | | ty | | | | + +--------+ + + + | POC GLUCOSE | Routin | 07/02/2017 | | Results for this | | | e | 11:27 AM | | procedure are in the | | | | PDT | | results section. | + +--------+ + + + | XR CHEST 1 VIEW | Routin | 07/02/2017 | | Results for this | | | e | 5:55 AM | | procedure are in the | | | | PDT | | results section. | + +--------+ + + + | EXTERNAL LAB: CBC | Routin | 07/02/2017 | | Results for this | | | e | 5:27 AM | | procedure are in the | | | | PDT | | results section. | + +--------+ + + + | MAGNESIUM | Routin | 07/02/2017 | | Results for this | | | e | 5:27 AM | | procedure are in the | | | | PDT | | results section. | + +--------+ + + + | BASIC METABOLIC | Routin | 07/02/2017 | | Results for this | | PANEL | e | 5:27 AM | | procedure are in the | | | | PDT | | results section. | + +--------+ + + + | POC GLUCOSE | Routin | 07/02/2017 | | Results for this | | | e | 5:17 AM | | procedure are in the | | | | PDT | | results section. | + +--------+ + + + | POC GLUCOSE | Routin | 07/01/2017 | | Results for this | | | e | 9:22 PM | | procedure are in the | | | | PDT | | results section. | + +--------+ + + + | POC GLUCOSE | Routin | 07/01/2017 | | Results for this | | | e | 4:10 PM | | procedure are in the | | | | PDT | | results section. | + +--------+ + + + | POC GLUCOSE | Routin | 07/01/2017 | | Results for this | | | e | 11:29 AM | | procedure are in the | | | | PDT | | results section. | + +--------+ + + + | PROCALCITONIN, SERUM | Routin | 07/01/2017 | | Results for this | | | e | 9:18 AM | | procedure are in the | | | | PDT | | results section. | + +--------+ + + + | POTASSIUM | Routin | 07/01/2017 | | Results for this | | | e | 9:18 AM | | procedure are in the | | | | PDT | | results section. | + +--------+ + + + | VANCOMYCIN, TROUGH | Routin | 07/01/2017 | | Results for this | | | e | 9:18 AM | | procedure are in the | | | | PDT | | results section. | + +--------+ + + + | POC GLUCOSE | Routin | 07/01/2017 | | Results for this | | | e | 5:53 AM | | procedure are in the | | | | PDT | | results section. | + +--------+ + + + | XR CHEST 1 VIEW | Routin | 07/01/2017 | | Results for this | | | e | 5:23 AM | | procedure are in the | | | | PDT | | results section. | + +--------+ + + + | EXTERNAL LAB: CBC | Routin | 07/01/2017 | | Results for this | | | e | 4:06 AM | | procedure are in the | | | | PDT | | results section. | + +--------+ + + + | MAGNESIUM | Routin | 07/01/2017 | | Results for this | | | e | 4:06 AM | | procedure are in the | | | | PDT | | results section. | + +--------+ + + + | BASIC METABOLIC | Routin | 07/01/2017 | | Results for this | | PANEL | e | 4:06 AM | | procedure are in the | | | | PDT | | results section. | + +--------+ + + + | POC GLUCOSE | Routin | 06/30/2017 | | Results for this | | | e | 9:06 PM | | procedure are in the | | | | PDT | | results section. | + +--------+ + + + | POTASSIUM | Routin | 06/30/2017 | | Results for this | | | e | 7:58 PM | | procedure are in the | | | | PDT | | results section. | + +--------+ + + + | PHOSPHORUS | Routin | 06/30/2017 | | Results for this | | | e | 7:58 PM | | procedure are in the | | | | PDT | | results section. | + +--------+ + + + | MAGNESIUM | Routin | 06/30/2017 | | Results for this | | | e | 7:58 PM | | procedure are in the | | | | PDT | | results section. | + +--------+ + + + | POC GLUCOSE | Routin | 06/30/2017 | | Results for this | | | e | 3:47 PM | | procedure are in the | | | | PDT | | results section. | + +--------+ + + + | POC GLUCOSE | Routin | 06/30/2017 | | Results for this | | | e | 11:51 AM | | procedure are in the | | | | PDT | | results section. | + +--------+ + + + | VANCOMYCIN, TROUGH | Routin | 06/30/2017 | | Results for this | | | e | 9:39 AM | | procedure are in the | | | | PDT | | results section. | + +--------+ + + + | POC GLUCOSE | Routin | 06/30/2017 | | Results for this | | | e | 6:01 AM | | procedure are in the | | | | PDT | | results section. | + +--------+ + + + | ECG 12 LEAD | Routin | 06/30/2017 | | Results for this | | | e | 5:13 AM | | procedure are in the | | | | PDT | | results section. | + +--------+ + + + | XR CHEST 1 VIEW | Routin | 06/30/2017 | | Results for this | | | e | 5:09 AM | | procedure are in the | | | | PDT | | results section. | + +--------+ + + + | EXTERNAL LAB: CBC | Routin | 06/30/2017 | | Results for this | | | e | 4:18 AM | | procedure are in the | | | | PDT | | results section. | + +--------+ + + + | MAGNESIUM | Routin | 06/30/2017 | | Results for this | | | e | 4:18 AM | | procedure are in the | | | | PDT | | results section. | + +--------+ + + + | BASIC METABOLIC | Routin | 06/30/2017 | | Results for this | | PANEL | e | 4:18 AM | | procedure are in the | | | | PDT | | results section. | + +--------+ + + + | POC GLUCOSE | Routin | 06/29/2017 | | Results for this | | | e | 9:38 PM | | procedure are in the | | | | PDT | | results section. | + +--------+ + + + | MAGNESIUM | Routin | 06/29/2017 | | Results for this | | | e | 4:58 PM | | procedure are in the | | | | PDT | | results section. | + +--------+ + + + | POC GLUCOSE | Routin | 06/29/2017 | | Results for this | | | e | 4:39 PM | | procedure are in the | | | | PDT | | results section. | + +--------+ + + + | POC GLUCOSE | Routin | 06/29/2017 | | Results for this | | | e | 11:31 AM | | procedure are in the | | | | PDT | | results section. | + +--------+ + + + | VANCOMYCIN, TROUGH | Routin | 06/29/2017 | | Results for this | | | e | 8:27 AM | | procedure are in the | | | | PDT | | results section. | + +--------+ + + + | POC GLUCOSE | Routin | 06/29/2017 | | Results for this | | | e | 5:40 AM | | procedure are in the | | | | PDT | | results section. | + +--------+ + + + | XR CHEST 1 VIEW | Routin | 06/29/2017 | | Results for this | | | e | 5:07 AM | | procedure are in the | | | | PDT | | results section. | + +--------+ + + + | EXTERNAL LAB: CBC | Routin | 06/29/2017 | | Results for this | | | e | 4:11 AM | | procedure are in the | | | | PDT | | results section. | + +--------+ + + + | MAGNESIUM | Routin | 06/29/2017 | | Results for this | | | e | 4:11 AM | | procedure are in the | | | | PDT | | results section. | + +--------+ + + + | BASIC METABOLIC | Routin | 06/29/2017 | | Results for this | | PANEL | e | 4:11 AM | | procedure are in the | | | | PDT | | results section. | + +--------+ + + + | POTASSIUM | Routin | 06/28/2017 | | Results for this | | | e | 11:04 PM | | procedure are in the | | | | PDT | | results section. | + +--------+ + + + | POC GLUCOSE | Routin | 06/28/2017 | | Results for this | | | e | 9:07 PM | | procedure are in the | | | | PDT | | results section. | + +--------+ + + + | POC GLUCOSE | Routin | 06/28/2017 | | Results for this | | | e | 5:31 PM | | procedure are in the | | | | PDT | | results section. | + +--------+ + + + | POTASSIUM | Routin | 06/28/2017 | | Results for this | | | e | 4:34 PM | | procedure are in the | | | | PDT | | results section. | + +--------+ + + + | POTASSIUM | Routin | 06/28/2017 | | Results for this | | | e | 10:51 AM | | procedure are in the | | | | PDT | | results section. | + +--------+ + + + | POC GLUCOSE | Routin | 06/28/2017 | | Results for this | | | e | 10:25 AM | | procedure are in the | | | | PDT | | results section. | + +--------+ + + + | POC GLUCOSE | Routin | 06/28/2017 | | Results for this | | | e | 5:32 AM | | procedure are in the | | | | PDT | | results section. | + +--------+ + + + | XR CHEST 1 VIEW | Routin | 06/28/2017 | | Results for this | | | e | 5:14 AM | | procedure are in the | | | | PDT | | results section. | + +--------+ + + + | EXTERNAL LAB: CBC | Routin | 06/28/2017 | | Results for this | | | e | 3:56 AM | | procedure are in the | | | | PDT | | results section. | + +--------+ + + + | MAGNESIUM | Routin | 06/28/2017 | | Results for this | | | e | 3:56 AM | | procedure are in the | | | | PDT | | results section. | + +--------+ + + + | BASIC METABOLIC | Routin | 06/28/2017 | | Results for this | | PANEL | e | 3:56 AM | | procedure are in the | | | | PDT | | results section. | + +--------+ + + + | POTASSIUM | Routin | 06/28/2017 | | Results for this | | | e | 12:50 AM | | procedure are in the | | | | PDT | | results section. | + +--------+ + + + | MAGNESIUM | Routin | 06/28/2017 | | Results for this | | | e | 12:50 AM | | procedure are in the | | | | PDT | | results section. | + +--------+ + + + | POC GLUCOSE | Routin | 06/27/2017 | | Results for this | | | e | 10:29 PM | | procedure are in the | | | | PDT | | results section. | + +--------+ + + + | POC GLUCOSE | Routin | 06/27/2017 | | Results for this | | | e | 8:40 PM | | procedure are in the | | | | PDT | | results section. | + +--------+ + + + | POC GLUCOSE | Routin | 06/27/2017 | | Results for this | | | e | 5:50 PM | | procedure are in the | | | | PDT | | results section. | + +--------+ + + + | POC GLUCOSE | Routin | 06/27/2017 | | Results for this | | | e | 5:26 PM | | procedure are in the | | | | PDT | | results section. | + +--------+ + + + | POTASSIUM | Routin | 06/27/2017 | | Results for this | | | e | 4:22 PM | | procedure are in the | | | | PDT | | results section. | + +--------+ + + + | POC GLUCOSE | Routin | 06/27/2017 | | Results for this | | | e | 3:21 PM | | procedure are in the | | | | PDT | | results section. | + +--------+ + + + | POC GLUCOSE | Routin | 06/27/2017 | | Results for this | | | e | 1:15 PM | | procedure are in the | | | | PDT | | results section. | + +--------+ + + + | ECHO LIMITED | Routin | 06/27/2017 | | Results for this | | | e | 11:21 AM | | procedure are in the | | | | PDT | | results section. | + +--------+ + + + | POC GLUCOSE | Routin | 06/27/2017 | | Results for this | | | e | 11:10 AM | | procedure are in the | | | | PDT | | results section. | + +--------+ + + + | POC GLUCOSE | Routin | 06/27/2017 | | Results for this | | | e | 10:05 AM | | procedure are in the | | | | PDT | | results section. | + +--------+ + + + | POC GLUCOSE | Routin | 06/27/2017 | | Results for this | | | e | 9:02 AM | | procedure are in the | | | | PDT | | results section. | + +--------+ + + + | ECG 12 LEAD | Routin | 06/27/2017 | | Results for this | | | e | 8:13 AM | | procedure are in the | | | | PDT | | results section. | + +--------+ + + + | POC GLUCOSE | Routin | 06/27/2017 | | Results for this | | | e | 7:45 AM | | procedure are in the | | | | PDT | | results section. | + +--------+ + + + | XR CHEST 1 VIEW | Routin | 06/27/2017 | | Results for this | | | e | 6:06 AM | | procedure are in the | | | | PDT | | results section. | + +--------+ + + + | POC GLUCOSE | Routin | 06/27/2017 | | Results for this | | | e | 5:50 AM | | procedure are in the | | | | PDT | | results section. | + +--------+ + + + | POC GLUCOSE | Routin | 06/27/2017 | | Results for this | | | e | 3:47 AM | | procedure are in the | | | | PDT | | results section. | + +--------+ + + + | EXTERNAL LAB: CBC | Routin | 06/27/2017 | | Results for this | | | e | 3:45 AM | | procedure are in the | | | | PDT | | results section. | + +--------+ + + + | PHOSPHORUS | Routin | 06/27/2017 | | Results for this | | | e | 3:45 AM | | procedure are in the | | | | PDT | | results section. | + +--------+ + + + | MAGNESIUM | Routin | 06/27/2017 | | Results for this | | | e | 3:45 AM | | procedure are in the | | | | PDT | | results section. | + +--------+ + + + | HEMOGLOBIN A1C | Routin | 06/27/2017 | | Results for this | | | e | 3:45 AM | | procedure are in the | | | | PDT | | results section. | + +--------+ + + + | BASIC METABOLIC | Routin | 06/27/2017 | | Results for this | | PANEL | e | 3:45 AM | | procedure are in the | | | | PDT | | results section. | + +--------+ + + + | POC GLUCOSE | Routin | 06/27/2017 | | Results for this | | | e | 1:29 AM | | procedure are in the | | | | PDT | | results section. | + +--------+ + + + | POC GLUCOSE | Routin | 06/26/2017 | | Results for this | | | e | 11:26 PM | | procedure are in the | | | | PDT | | results section. | + +--------+ + + + | XR CHEST 1 VIEW | Routin | 06/26/2017 | | Results for this | | | e | 10:16 PM | | procedure are in the | | | | PDT | | results section. | + +--------+ + + + | POC GLUCOSE | Routin | 06/26/2017 | | Results for this | | | e | 9:22 PM | | procedure are in the | | | | PDT | | results section. | + +--------+ + + + | POC GLUCOSE | Routin | 06/26/2017 | | Results for this | | | e | 6:51 PM | | procedure are in the | | | | PDT | | results section. | + +--------+ + + + | EXTERNAL LAB: CBC | Routin | 06/26/2017 | | Results for this | | | e | 6:20 PM | | procedure are in the | | | | PDT | | results section. | + +--------+ + + + | PROCALCITONIN, SERUM | Routin | 06/26/2017 | | Results for this | | | e | 6:20 PM | | procedure are in the | | | | PDT | | results section. | + +--------+ + + + | CULTURE, BLOOD, 2ND | Timed | 06/26/2017 | | Results for this | | SPECIMEN (NON-ORD) | | 6:12 PM | | procedure are in the | | | | PDT | | results section. | + +--------+ + + + | CULTURE, BLOOD | Timed | 06/26/2017 | | Results for this | | | | 6:05 PM | | procedure are in the | | | | PDT | | results section. | + +--------+ + + + | GRAM STAIN, REFLEX | Timed | 06/26/2017 | | Results for this | | SPUTUM CULTURE | | 6:00 PM | | procedure are in the | | | | PDT | | results section. | + +--------+ + + + | POC GLUCOSE | Routin | 06/26/2017 | | Results for this | | | e | 5:23 PM | | procedure are in the | | | | PDT | | results section. | + +--------+ + + + | POC GLUCOSE | Routin | 06/26/2017 | | Results for this | | | e | 3:16 PM | | procedure are in the | | | | PDT | | results section. | + +--------+ + + + | TROPONIN I | Routin | 06/26/2017 | | Results for this | | | e | 3:00 PM | | procedure are in the | | | | PDT | | results section. | + +--------+ + + + | CK-MB | Routin | 06/26/2017 | | Results for this | | | e | 3:00 PM | | procedure are in the | | | | PDT | | results section. | + +--------+ + + + | LIPASE | Routin | 06/26/2017 | | Results for this | | | e | 3:00 PM | | procedure are in the | | | | PDT | | results section. | + +--------+ + + + | CK TOTAL | Routin | 06/26/2017 | | Results for this | | | e | 3:00 PM | | procedure are in the | | | | PDT | | results section. | + +--------+ + + + | POC GLUCOSE | Routin | 06/26/2017 | | Results for this | | | e | 2:10 PM | | procedure are in the | | | | PDT | | results section. | + +--------+ + + + | POC GLUCOSE | Routin | 06/26/2017 | | Results for this | | | e | 12:51 PM | | procedure are in the | | | | PDT | | results section. | + +--------+ + + + | XR CHEST 1 VIEW | Routin | 06/26/2017 | | Results for this | | | e | 12:10 PM | | procedure are in the | | | | PDT | | results section. | + +--------+ + + + | POC GLUCOSE | Routin | 06/26/2017 | | Results for this | | | e | 11:42 AM | | procedure are in the | | | | PDT | | results section. | + +--------+ + + + | TROPONIN I | Routin | 06/26/2017 | | Results for this | | | e | 8:52 AM | | procedure are in the | | | | PDT | | results section. | + +--------+ + + + | CK-MB | Routin | 06/26/2017 | | Results for this | | | e | 8:52 AM | | procedure are in the | | | | PDT | | results section. | + +--------+ + + + | CK TOTAL | Routin | 06/26/2017 | | Results for this | | | e | 8:52 AM | | procedure are in the | | | | PDT | | results section. | + +--------+ + + + | POC GLUCOSE | Routin | 06/26/2017 | | Results for this | | | e | 8:46 AM | | procedure are in the | | | | PDT | | results section. | + +--------+ + + + | ECG 12 LEAD | Routin | 06/26/2017 | | Results for this | | | e | 8:06 AM | | procedure are in the | | | | PDT | | results section. | + +--------+ + + + | XR CHEST 1 VIEW | Routin | 06/26/2017 | | Results for this | | | e | 5:54 AM | | procedure are in the | | | | PDT | | results section. | + +--------+ + + + | EXTERNAL LAB: CBC | Routin | 06/26/2017 | | Results for this | | | e | 3:05 AM | | procedure are in the | | | | PDT | | results section. | + +--------+ + + + | MAGNESIUM | Routin | 06/26/2017 | | Results for this | | | e | 3:05 AM | | procedure are in the | | | | PDT | | results section. | + +--------+ + + + | BASIC METABOLIC | Routin | 06/26/2017 | | Results for this | | PANEL | e | 3:05 AM | | procedure are in the | | | | PDT | | results section. | + +--------+ + + + | TROPONIN I | Routin | 06/26/2017 | | Results for this | | | e | 3:04 AM | | procedure are in the | | | | PDT | | results section. | + +--------+ + + + | CK-MB | Routin | 06/26/2017 | | Results for this | | | e | 3:04 AM | | procedure are in the | | | | PDT | | results section. | + +--------+ + + + | POTASSIUM | Routin | 06/26/2017 | | Results for this | | | e | 3:04 AM | | procedure are in the | | | | PDT | | results section. | + +--------+ + + + | CK TOTAL | Routin | 06/26/2017 | | Results for this | | | e | 3:04 AM | | procedure are in the | | | | PDT | | results section. | + +--------+ + + + | POC GLUCOSE | Routin | 06/26/2017 | | Results for this | | | e | 2:52 AM | | procedure are in the | | | | PDT | | results section. | + +--------+ + + + | TROPONIN I | Routin | 06/25/2017 | | Results for this | | | e | 10:03 PM | | procedure are in the | | | | PDT | | results section. | + +--------+ + + + | CK-MB | Routin | 06/25/2017 | | Results for this | | | e | 10:03 PM | | procedure are in the | | | | PDT | | results section. | + +--------+ + + + | CK TOTAL | Routin | 06/25/2017 | | Results for this | | | e | 10:03 PM | | procedure are in the | | | | PDT | | results section. | + +--------+ + + + | GRAM STAIN, REFLEX | Timed | 06/25/2017 | | Results for this | | SPUTUM CULTURE | | 9:56 PM | | procedure are in the | | | | PDT | | results section. | + +--------+ + + + | ECG 12 LEAD | Routin | 06/25/2017 | | Results for this | | | e | 9:48 PM | | procedure are in the | | | | PDT | | results section. | + +--------+ + + + | POC GLUCOSE | Routin | 06/25/2017 | | Results for this | | | e | 9:36 PM | | procedure are in the | | | | PDT | | results section. | + +--------+ + + + | XR CHEST 1 VIEW | Routin | 06/25/2017 | | Results for this | | | e | 8:46 PM | | procedure are in the | | | | PDT | | results section. | + +--------+ + + + | TROPONIN I | Routin | 06/25/2017 | | Results for this | | | e | 6:09 PM | | procedure are in the | | | | PDT | | results section. | + +--------+ + + + | POTASSIUM | Routin | 06/25/2017 | | Results for this | | | e | 6:09 PM | | procedure are in the | | | | PDT | | results section. | + +--------+ + + + | POC GLUCOSE | Routin | 06/25/2017 | | Results for this | | | e | 2:33 PM | | procedure are in the | | | | PDT | | results section. | + +--------+ + + + | TROPONIN I | Routin | 06/25/2017 | | Results for this | | | e | 12:33 PM | | procedure are in the | | | | PDT | | results section. | + +--------+ + + + | HISTORICAL | STAT | 06/25/2017 | | Results for this | | MICROBIOLOGY RESULT | | 11:29 AM | | procedure are in the | | | | PDT | | results section. | + +--------+ + + + | DRUGS OF ABUSE | Routin | 06/25/2017 | | Results for this | | SCREEN, URINE (H) | e | 11:11 AM | | procedure are in the | | | | PDT | | results section. | + +--------+ + + + | URINALYSIS WITH | Routin | 06/25/2017 | | Results for this | | MICROSCOPIC WITH | e | 11:11 AM | | procedure are in the | | CULTURE IF INDICATED | | PDT | | results section. | + +--------+ + + + | STREPTOCOCCUS | STAT | 06/25/2017 | | Results for this | | PNEUMONIAE AG, URINE | | 11:10 AM | | procedure are in the | | | | PDT | | results section. | + +--------+ + + + | POC GLUCOSE | Routin | 06/25/2017 | | Results for this | | | e | 9:18 AM | | procedure are in the | | | | PDT | | results section. | + +--------+ + + + | ECG 12 LEAD | Routin | 06/25/2017 | | Results for this | | | e | 8:38 AM | | procedure are in the | | | | PDT | | results section. | + +--------+ + + + | ECHO LIMITED | Routin | 06/25/2017 | | Results for this | | | e | 8:15 AM | | procedure are in the | | | | PDT | | results section. | + +--------+ + + + | PROCALCITONIN, SERUM | Routin | 06/25/2017 | | Results for this | | | e | 7:00 AM | | procedure are in the | | | | PDT | | results section. | + +--------+ + + + | TROPONIN I | Routin | 06/25/2017 | | Results for this | | | e | 7:00 AM | | procedure are in the | | | | PDT | | results section. | + +--------+ + + + | ECG 12 LEAD | Routin | 06/25/2017 | | Results for this | | | e | 6:45 AM | | procedure are in the | | | | PDT | | results section. | + +--------+ + + + | HEPATIC FUNCTION | Routin | 06/25/2017 | | Results for this | | PANEL | e | 5:33 AM | | procedure are in the | | | | PDT | | results section. | + +--------+ + + + | XR CHEST 1 VIEW | Routin | 06/25/2017 | | Results for this | | | e | 5:31 AM | | procedure are in the | | | | PDT | | results section. | + +--------+ + + + | POC GLUCOSE | Routin | 06/25/2017 | | Results for this | | | e | 5:26 AM | | procedure are in the | | | | PDT | | results section. | + +--------+ + + + | EXTERNAL LAB: CBC | Routin | 06/25/2017 | | Results for this | | | e | 5:05 AM | | procedure are in the | | | | PDT | | results section. | + +--------+ + + + | MAGNESIUM | Routin | 06/25/2017 | | Results for this | | | e | 5:05 AM | | procedure are in the | | | | PDT | | results section. | + +--------+ + + + | BASIC METABOLIC | Routin | 06/25/2017 | | Results for this | | PANEL | e | 5:05 AM | | procedure are in the | | | | PDT | | results section. | + +--------+ + + + | POC GLUCOSE | Routin | 06/24/2017 | | Results for this | | | e | 9:31 PM | | procedure are in the | | | | PDT | | results section. | + +--------+ + + + | POC GLUCOSE | Routin | 06/24/2017 | | Results for this | | | e | 4:30 PM | | procedure are in the | | | | PDT | | results section. | + +--------+ + + + | POC GLUCOSE | Routin | 06/24/2017 | | Results for this | | | e | 10:42 AM | | procedure are in the | | | | PDT | | results section. | + +--------+ + + + | XR CHEST 2 VIEWS | Routin | 06/24/2017 | | Results for this | | | e | 6:59 AM | | procedure are in the | | | | PDT | | results section. | + +--------+ + + + | POC GLUCOSE | Routin | 06/24/2017 | | Results for this | | | e | 5:29 AM | | procedure are in the | | | | PDT | | results section. | + +--------+ + + + | EXTERNAL LAB: CBC | Routin | 06/24/2017 | | Results for this | | | e | 5:07 AM | | procedure are in the | | | | PDT | | results section. | + +--------+ + + + | MAGNESIUM | Routin | 06/24/2017 | | Results for this | | | e | 5:07 AM | | procedure are in the | | | | PDT | | results section. | + +--------+ + + + | BASIC METABOLIC | Routin | 06/24/2017 | | Results for this | | PANEL | e | 5:07 AM | | procedure are in the | | | | PDT | | results section. | + +--------+ + + + | TISSUE REQUEST FOR | Routin | 06/24/2017 | | Results for this | | PATHOLOGY (NON-ORD) | e | 12:00 AM | | procedure are in the | | | | PDT | | results section. | + +--------+ + + + | POC GLUCOSE | Routin | 06/23/2017 | | Results for this | | | e | 10:13 PM | | procedure are in the | | | | PDT | | results section. | + +--------+ + + + | POC GLUCOSE | Routin | 06/23/2017 | | Results for this | | | e | 4:30 PM | | procedure are in the | | | | PDT | | results section. | + +--------+ + + + | POC GLUCOSE | Routin | 06/23/2017 | | Results for this | | | e | 11:46 AM | | procedure are in the | | | | PDT | | results section. | + +--------+ + + + | POC GLUCOSE | Routin | 06/23/2017 | | Results for this | | | e | 8:04 AM | | procedure are in the | | | | PDT | | results section. | + +--------+ + + + | POC GLUCOSE | Routin | 06/23/2017 | | Results for this | | | e | 6:59 AM | | procedure are in the | | | | PDT | | results section. | + +--------+ + + + | POC GLUCOSE | Routin | 06/23/2017 | | Results for this | | | e | 5:59 AM | | procedure are in the | | | | PDT | | results section. | + +--------+ + + + | EXTERNAL LAB: CBC | Routin | 06/23/2017 | | Results for this | | | e | 5:29 AM | | procedure are in the | | | | PDT | | results section. | + +--------+ + + + | MAGNESIUM | Routin | 06/23/2017 | | Results for this | | | e | 5:29 AM | | procedure are in the | | | | PDT | | results section. | + +--------+ + + + | HEMOGLOBIN A1C | Routin | 06/23/2017 | | Results for this | | | e | 5:29 AM | | procedure are in the | | | | PDT | | results section. | + +--------+ + + + | BASIC METABOLIC | Routin | 06/23/2017 | | Results for this | | PANEL | e | 5:29 AM | | procedure are in the | | | | PDT | | results section. | + +--------+ + + + | POC GLUCOSE | Routin | 06/23/2017 | | Results for this | | | e | 4:46 AM | | procedure are in the | | | | PDT | | results section. | + +--------+ + + + | POC GLUCOSE | Routin | 06/23/2017 | | Results for this | | | e | 3:45 AM | | procedure are in the | | | | PDT | | results section. | + +--------+ + + + | XR CHEST 1 VIEW | Routin | 06/23/2017 | | Results for this | | | e | 2:16 AM | | procedure are in the | | | | PDT | | results section. | + +--------+ + + + | POC GLUCOSE | Routin | 06/23/2017 | | Results for this | | | e | 1:17 AM | | procedure are in the | | | | PDT | | results section. | + +--------+ + + + | POC GLUCOSE | Routin | 06/22/2017 | | Results for this | | | e | 11:19 PM | | procedure are in the | | | | PDT | | results section. | + +--------+ + + + | POC GLUCOSE | Routin | 06/22/2017 | | Results for this | | | e | 10:15 PM | | procedure are in the | | | | PDT | | results section. | + +--------+ + + + | POC GLUCOSE | Routin | 06/22/2017 | | Results for this | | | e | 9:09 PM | | procedure are in the | | | | PDT | | results section. | + +--------+ + + + | POC GLUCOSE | Routin | 06/22/2017 | | Results for this | | | e | 8:08 PM | | procedure are in the | | | | PDT | | results section. | + +--------+ + + + | POC GLUCOSE | Routin | 06/22/2017 | | Results for this | | | e | 7:11 PM | | procedure are in the | | | | PDT | | results section. | + +--------+ + + + | POC GLUCOSE | Routin | 06/22/2017 | | Results for this | | | e | 5:57 PM | | procedure are in the | | | | PDT | | results section. | + +--------+ + + + | POC GLUCOSE | Routin | 06/22/2017 | | Results for this | | | e | 5:16 PM | | procedure are in the | | | | PDT | | results section. | + +--------+ + + + | POC GLUCOSE | Routin | 06/22/2017 | | Results for this | | | e | 4:11 PM | | procedure are in the | | | | PDT | | results section. | + +--------+ + + + | URINALYSIS, REFLEX | Routin | 06/22/2017 | | Results for this | | MICROSCOPIC AND/OR | e | 3:37 PM | | procedure are in the | | CULTURE | | PDT | | results section. | + +--------+ + + + | URINALYSIS, | Routin | 06/22/2017 | | Results for this | | MICROSCOPIC ONLY | e | 3:37 PM | | procedure are in the | | | | PDT | | results section. | + +--------+ + + + | CULTURE, URINE | Routin | 06/22/2017 | | Results for this | | | e | 3:37 PM | | procedure are in the | | | | PDT | | results section. | + +--------+ + + + | POC GLUCOSE | Routin | 06/22/2017 | | Results for this | | | e | 2:56 PM | | procedure are in the | | | | PDT | | results section. | + +--------+ + + + | POC GLUCOSE | Routin | 06/22/2017 | | Results for this | | | e | 1:58 PM | | procedure are in the | | | | PDT | | results section. | + +--------+ + + + | POC GLUCOSE | Routin | 06/22/2017 | | Results for this | | | e | 12:47 PM | | procedure are in the | | | | PDT | | results section. | + +--------+ + + + | POC GLUCOSE | Routin | 06/22/2017 | | Results for this | | | e | 11:43 AM | | procedure are in the | | | | PDT | | results section. | + +--------+ + + + | POC GLUCOSE | Routin | 06/22/2017 | | Results for this | | | e | 7:42 AM | | procedure are in the | | | | PDT | | results section. | + +--------+ + + + | XR CHEST 1 VIEW | Routin | 06/22/2017 | | Results for this | | | e | 6:29 AM | | procedure are in the | | | | PDT | | results section. | + +--------+ + + + | EXTERNAL LAB: CBC | Routin | 06/22/2017 | | Results for this | | | e | 4:24 AM | | procedure are in the | | | | PDT | | results section. | + +--------+ + + + | MAGNESIUM | Routin | 06/22/2017 | | Results for this | | | e | 4:24 AM | | procedure are in the | | | | PDT | | results section. | + +--------+ + + + | BASIC METABOLIC | Routin | 06/22/2017 | | Results for this | | PANEL | e | 4:24 AM | | procedure are in the | | | | PDT | | results section. | + +--------+ + + + | POC GLUCOSE | Routin | 06/22/2017 | | Results for this | | | e | 4:19 AM | | procedure are in the | | | | PDT | | results section. | + +--------+ + + + | POC GLUCOSE | Routin | 06/21/2017 | | Results for this | | | e | 9:13 PM | | procedure are in the | | | | PDT | | results section. | + +--------+ + + + | EXTERNAL LAB: CBC | Routin | 06/21/2017 | | Results for this | | | e | 5:14 PM | | procedure are in the | | | | PDT | | results section. | + +--------+ + + + | MAGNESIUM | Routin | 06/21/2017 | | Results for this | | | e | 5:14 PM | | procedure are in the | | | | PDT | | results section. | + +--------+ + + + | BASIC METABOLIC | Routin | 06/21/2017 | | Results for this | | PANEL | e | 5:14 PM | | procedure are in the | | | | PDT | | results section. | + +--------+ + + + | POC GLUCOSE | Routin | 06/21/2017 | | Results for this | | | e | 5:05 PM | | procedure are in the | | | | PDT | | results section. | + +--------+ + + + | XR CHEST 1 VIEW | Routin | 06/21/2017 | | Results for this | | | e | 2:35 PM | | procedure are in the | | | | PDT | | results section. | + +--------+ + + + | POC GLUCOSE | Routin | 06/21/2017 | | Results for this | | | e | 2:04 PM | | procedure are in the | | | | PDT | | results section. | + +--------+ + + + | POC GLUCOSE | Routin | 06/21/2017 | | Results for this | | | e | 12:52 PM | | procedure are in the | | | | PDT | | results section. | + +--------+ + + + | POC GLUCOSE | Routin | 06/21/2017 | | Results for this | | | e | 12:24 PM | | procedure are in the | | | | PDT | | results section. | + +--------+ + + + | POC GLUCOSE | Routin | 06/21/2017 | | Results for this | | | e | 11:09 AM | | procedure are in the | | | | PDT | | results section. | + +--------+ + + + | POC GLUCOSE | Routin | 06/21/2017 | | Results for this | | | e | 9:52 AM | | procedure are in the | | | | PDT | | results section. | + +--------+ + + + | POC GLUCOSE | Routin | 06/21/2017 | | Results for this | | | e | 5:25 AM | | procedure are in the | | | | PDT | | results section. | + +--------+ + + + | EXTERNAL LAB: CBC | Routin | 06/21/2017 | | Results for this | | | e | 5:23 AM | | procedure are in the | | | | PDT | | results section. | + +--------+ + + + | PROTIME INR | Routin | 06/21/2017 | | Results for this | | | e | 5:23 AM | | procedure are in the | | | | PDT | | results section. | + +--------+ + + + | MAGNESIUM | Routin | 06/21/2017 | | Results for this | | | e | 5:23 AM | | procedure are in the | | | | PDT | | results section. | + +--------+ + + + | COMPREHENSIVE | Routin | 06/21/2017 | | Results for this | | METABOLIC PANEL | e | 5:23 AM | | procedure are in the | | | | PDT | | results section. | + +--------+ + + + | POC GLUCOSE | Routin | 06/20/2017 | | Results for this | | | e | 9:18 PM | | procedure are in the | | | | PDT | | results section. | + +--------+ + + + | POC GLUCOSE | Routin | 06/20/2017 | | Results for this | | | e | 4:32 PM | | procedure are in the | | | | PDT | | results section. | + +--------+ + + + | MRSA NAAT | STAT | 06/20/2017 | | Results for this | | | | 3:44 PM | | procedure are in the | | | | PDT | | results section. | + +--------+ + + + | POC GLUCOSE | Routin | 06/20/2017 | | Results for this | | | e | 12:03 PM | | procedure are in the | | | | PDT | | results section. | + +--------+ + + + | POC GLUCOSE | Routin | 06/20/2017 | | Results for this | | | e | 5:15 AM | | procedure are in the | | | | PDT | | results section. | + +--------+ + + + | EXTERNAL LAB: CBC | Routin | 06/20/2017 | | Results for this | | | e | 4:34 AM | | procedure are in the | | | | PDT | | results section. | + +--------+ + + + | PROTIME INR | Routin | 06/20/2017 | | Results for this | | | e | 4:34 AM | | procedure are in the | | | | PDT | | results section. | + +--------+ + + + | PHOSPHORUS | Routin | 06/20/2017 | | Results for this | | | e | 4:34 AM | | procedure are in the | | | | PDT | | results section. | + +--------+ + + + | MAGNESIUM | Routin | 06/20/2017 | | Results for this | | | e | 4:34 AM | | procedure are in the | | | | PDT | | results section. | + +--------+ + + + | COMPREHENSIVE | Routin | 06/20/2017 | | Results for this | | METABOLIC PANEL | e | 4:34 AM | | procedure are in the | | | | PDT | | results section. | + +--------+ + + + | POTASSIUM | Routin | 06/20/2017 | | Results for this | | | e | 12:52 AM | | procedure are in the | | | | PDT | | results section. | + +--------+ + + + | POC GLUCOSE | Routin | 06/19/2017 | | Results for this | | | e | 9:13 PM | | procedure are in the | | | | PDT | | results section. | + +--------+ + + + | POTASSIUM | Routin | 06/19/2017 | | Results for this | | | e | 7:52 PM | | procedure are in the | | | | PDT | | results section. | + +--------+ + + + | MAGNESIUM | Routin | 06/19/2017 | | Results for this | | | e | 7:52 PM | | procedure are in the | | | | PDT | | results section. | + +--------+ + + + | POC GLUCOSE | Routin | 06/19/2017 | | Results for this | | | e | 4:31 PM | | procedure are in the | | | | PDT | | results section. | + +--------+ + + + | POC GLUCOSE | Routin | 06/19/2017 | | Results for this | | | e | 11:44 AM | | procedure are in the | | | | PDT | | results section. | + +--------+ + + + | POC GLUCOSE | Routin | 06/19/2017 | | Results for this | | | e | 5:08 AM | | procedure are in the | | | | PDT | | results section. | + +--------+ + + + | POC GLUCOSE | Routin | 06/18/2017 | | Results for this | | | e | 9:05 PM | | procedure are in the | | | | PDT | | results section. | + +--------+ + + + | POC GLUCOSE | Routin | 06/18/2017 | | Results for this | | | e | 4:26 PM | | procedure are in the | | | | PDT | | results section. | + +--------+ + + + | POC GLUCOSE | Routin | 06/18/2017 | | Results for this | | | e | 11:51 AM | | procedure are in the | | | | PDT | | results section. | + +--------+ + + + | EXTERNAL LAB: CBC | Routin | 06/18/2017 | | Results for this | | | e | 5:44 AM | | procedure are in the | | | | PDT | | results section. | + +--------+ + + + | PROTIME INR | Routin | 06/18/2017 | | Results for this | | | e | 5:44 AM | | procedure are in the | | | | PDT | | results section. | + +--------+ + + + | TSH | Routin | 06/18/2017 | | Results for this | | | e | 5:44 AM | | procedure are in the | | | | PDT | | results section. | + +--------+ + + + | PHOSPHORUS | Routin | 06/18/2017 | | Results for this | | | e | 5:44 AM | | procedure are in the | | | | PDT | | results section. | + +--------+ + + + | MAGNESIUM | Routin | 06/18/2017 | | Results for this | | | e | 5:44 AM | | procedure are in the | | | | PDT | | results section. | + +--------+ + + + | HEMOGLOBIN A1C | Routin | 06/18/2017 | | Results for this | | | e | 5:44 AM | | procedure are in the | | | | PDT | | results section. | + +--------+ + + + | GLUCOSE, RANDOM | Routin | 06/18/2017 | | Results for this | | | e | 5:44 AM | | procedure are in the | | | | PDT | | results section. | + +--------+ + + + | COMPREHENSIVE | Routin | 06/18/2017 | | Results for this | | METABOLIC PANEL | e | 5:44 AM | | procedure are in the | | | | PDT | | results section. | + +--------+ + + + | POC GLUCOSE | Routin | 06/18/2017 | | Results for this | | | e | 5:26 AM | | procedure are in the | | | | PDT | | results section. | + +--------+ + + + documented in this encounter Results POC Glucose (07/02/2017 11:27 AM PDT) + + + + + + | Component | Value | Ref Range | Performed | Pathologist | | | | | At | Signature | + + + + + + | Glucose, | 193 (H)Comment: Testing | 65 - 99 mg/dL | EXTERNAL | | | Fingerstick | performed at [facility];[address] | | LAB | | | | [address];[place] | | | | | | [address] | | | | + + + + + + + + | Specimen | + + | | + + + +---------+ + + | Performing | Address | City/State/Zipcode | Phone Number | | Organization | | | | + +---------+ + + | EXTERNAL LAB | | | | + +---------+ + + XR Chest 1 Nik (07/02/2017 5:55 AM PDT) + + | Specimen | + + | | + + + + + | Impressions | Performed At | + + + | 1. Stable appearance of the chest. | | + + + + + + | Narrative | Performed At | + + + | HISTORY: Evaluate tubes and lines. Thoracotomy. COMPARISON: | | | 07/01/17. TECHNIQUE: AP portable film of the chest at 0523 hours | | | FINDINGS: Persistent small left pleural effusion. Persistent | | | diffuse reticular interstitial prominence of the lung jones. Density | | | overlying the left upper lung field perhaps due to the aortic arch | | | again noted. No new findings. Right heart border is unremarkable. | | | Left heart border is poorly defined. | | + + + + + | Procedure Note | + + | Meir, Rad Conversion - 10/15/2018 11:00 AM PDT HISTORY:Evaluate tubes and lines. | | Thoracotomy. COMPARISON:07/01/17. TECHNIQUE:AP portable film of the chest at 0523 hours | | FINDINGS:Persistent small left pleural effusion. Persistent diffuse reticular | | interstitial prominence of the lung jones. Density overlying the left upper lung field | | perhaps due to the aortic arch again noted. No new findings. Right heart border is | | unremarkable. Left heart border is poorly defined. IMPRESSION: 1. Stable appearance of | | the chest. | |AP portable film of the chest at 0523 hours | | | |FINDINGS: | |Persistent small left pleural effusion. Persistent diffuse reticular interstitial prominenc e of the lung jones. Density overlying the left upper lung field perhaps due to the aortic arch again noted. No new | |findings. Right heart border is unremarkable. | |Left heart border is poorly defined. | | | |IMPRESSION: | |1. Stable appearance of the chest. | | | | | + + External Lab: SUSAN (07/02/2017 5:27 AM PDT) + + + + + + | Component | Value | Ref Range | Performed | Pathologist | | | | | At | Signature | + + + + + + | WBC | 15.31 (H) | 3.80 - 11.00 | EXTERNAL | | | | | K/uL | LAB | | + + + + + + | Non- | 3.01 (L) | 3.70 - 5.10 | EXTERNAL | | | Red Blood | | M/uL | LAB | | | Cells | | | | | | Counted | | | | | + + + + + + | Hemoglobin | 9.0 (L) | 11.3 - 15.5 | EXTERNAL | | | | | g/dL | LAB | | + + + + + + | Hematocrit, | 26.5 (L) | 34.0 - 46.0 % | EXTERNAL | | | POC | | | LAB | | + + + + + + | MCV | 87.9 | 80.0 - 100.0 fl | EXTERNAL | | | | | | LAB | | + + + + + + | MCH | 29.7 | 27.0 - 34.0 pg | EXTERNAL | | | | | | LAB | | + + + + + + | MCHC | 33.8 | 32.0 - 35.5 | EXTERNAL | | | | | g/dL | LAB | | + + + + + + | RDW-CV | 42.9 | 37 - 53 fl | EXTERNAL | | | | | | LAB | | + + + + + + | Platelet | 418 (H) | 150 - 400 K/uL | EXTERNAL | | | Count | | | LAB | | | Plasma | | | | | + + + + + + | MPV | 8.1 | fl | EXTERNAL | | | | | | LAB | | + + + + + + | Differentia | AUTOMATED | | EXTERNAL | | | l Type | | | LAB | | + + + + + + | % Segmented | 63.00 | % | EXTERNAL | | | | | | LAB | | | Neutrophils | | | | | + + + + + + | % | 20.05 | % | EXTERNAL | | | Lymphocytes | | | LAB | | + + + + + + | % Monocytes | 8.47 | % | EXTERNAL | | | | | | LAB | | + + + + + + | % | 7.90 | % | EXTERNAL | | | Eosinophils | | | LAB | | + + + + + + | % Basophils | 0.58 | % | EXTERNAL | | | | | | LAB | | + + + + + + | Absolute | 9.64 (H) | 1.90 - 7.40 | EXTERNAL | | | Segmented | | K/uL | LAB | | | Neutrophils | | | | | + + + + + + | Absolute | 3.07 | 1.00 - 3.90 | EXTERNAL | | | Lymphocytes | | K/uL | LAB | | + + + + + + | Absolute | 1.30 (H) | 0.00 - 0.80 | EXTERNAL | | | Monocytes | | K/uL | LAB | | + + + + + + | Absolute | 1.21 (H) | 0.00 - 0.50 | EXTERNAL | | | Eosinophils | | K/uL | LAB | | + + + + + + | Absolute | 0.09Comment: Testing | 0.00 - 0.10 | EXTERNAL | | | Basophils | performed at [facility], [address] | [address] | LAB | | | | [address], | | | | | | [place] [address] | | | | + + + + + + + + | Specimen | + + | Blood specimen | | (specimen) | + + + +---------+ + + | Performing | Address | City/State/Zipcode | Phone Number | | Organization | | | | + +---------+ + + | EXTERNAL LAB | | | | + +---------+ + + Magnesium (07/02/2017 5:27 AM PDT) + + + + + + | Component | Value | Ref Range | Performed | Pathologist | | | | | At | Signature | + + + + + + | Magnesium | 1.8Comment: Testing | 1.7 - 2.4 mg/dL | EXTERNAL | | | | performed at [facility], [address] | | LAB | | | | [address], | | | | | | [place] [address] | | | | + + + + + + + + | Specimen | + + | Blood specimen | | (specimen) | + + + +---------+ + + | Performing | Address | City/State/Zipcode | Phone Number | | Organization | | | | + +---------+ + + | EXTERNAL LAB | | | | + +---------+ + + Basic Metabolic Panel (07/02/2017 5:27 AM PDT) + + + + + + | Component | Value | Ref Range | Performed | Pathologist | | | | | At | Signature | + + + + + + | Na | 141 | 135 - 145 | EXTERNAL | | | | | mmol/L | LAB | | + + + + + + | K | 4.4 | 3.5 - 4.9 | EXTERNAL | | | | | mmol/L | LAB | | + + + + + + | Cl | 101 | 99 - 109 mmol/L | EXTERNAL | | | | | | LAB | | + + + + + + | CO2 | 32 | 23 - 32 mmol/L | EXTERNAL | | | | | | LAB | | + + + + + + | Anion Gap | 12 | 5 - 20 mmol/L | EXTERNAL | | | | | | LAB | | + + + + + + | Glucose, | 210 (H) | 65 - 99 mg/dL | EXTERNAL | | | Fasting | | | LAB | | + + + + + + | BUN | 21 | 8 - 25 mg/dL | EXTERNAL | | | | | | LAB | | + + + + + + | Creatinine | 1.1 (H) | 0.50 - 1.00 | EXTERNAL | | | | | mg/dL | LAB | | + + + + + + | BUN/Creatin | 19 | | EXTERNAL | | | ine Ratio | | | LAB | | + + + + + + | Calcium | 8.8 | 8.5 - 10.5 | EXTERNAL | | | | | mg/dL | LAB | | + + + + + + | Estimated | 57 (L)Comment: GFR <60: | mL/min/1.73m2 | EXTERNAL | [...] [address], | | | | | | [place] [address] | | | | + + + + + + + + | Specimen | + + | Blood specimen | | (specimen) | + + + +---------+ + + | Performing | Address | City/State/Zipcode | Phone Number | | Organization | | | | + +---------+ + + | EXTERNAL LAB | | | | + +---------+ + + POC Glucose (07/02/2017 5:17 AM PDT) + + + + + + | Component | Value | Ref Range | Performed | Pathologist | | | | | At | Signature | + + + + + + | Glucose, | 229 (H)Comment: Testing | 65 - 99 mg/dL | EXTERNAL | | | Fingerstick | performed at [facility];[address] | | LAB | | | | [address];[place] | | | | | | [address] | | | | + + + + + + + + | Specimen | + + | | + + + +---------+ + + | Performing | Address | City/State/Zipcode | Phone Number | | Organization | | | | + +---------+ + + | EXTERNAL LAB | | | | + +---------+ + + POC Glucose (07/01/2017 9:22 PM PDT) + + + + + + | Component | Value | Ref Range | Performed | Pathologist | | | | | At | Signature | + + + + + + | Glucose, | 307 (H)Comment: Testing | 65 - 99 mg/dL | EXTERNAL | | | Fingerstick | performed at [facility];[address] | | LAB | | | | [address];[place], [place] | | | | | | [address] | | | | + + + + + + + + | Specimen | + + | | + + + +---------+ + + | Performing | Address | City/State/Zipcode | Phone Number | | Organization | | | | + +---------+ + + | EXTERNAL LAB | | | | + +---------+ + + POC Glucose (07/01/2017 4:10 PM PDT) + + + + + + | Component | Value | Ref Range | Performed | Pathologist | | | | | At | Signature | + + + + + + | Glucose, | 223 (H)Comment: Testing | 65 - 99 mg/dL | EXTERNAL | | | Fingerstick | performed at [facility];[address] | | LAB | | | | [address];[place] | | | | | | [address] | | | | + + + + + + + + | Specimen | + + | | + + + +---------+ + + | Performing | Address | City/State/Zipcode | Phone Number | | Organization | | | | + +---------+ + + | EXTERNAL LAB | | | | + +---------+ + + POC Glucose (07/01/2017 11:29 AM PDT) + + + + + + | Component | Value | Ref Range | Performed | Pathologist | | | | | At | Signature | + + + + + + | Glucose, | 324 (H)Comment: Testing | 65 - 99 mg/dL | EXTERNAL | | | Fingerstick | performed at [facility];[address] | | LAB | | | | [address];[place], [place] | | | | | | [address] | | | | + + + + + + + + | Specimen | + + | | + + + +---------+ + + | Performing | Address | City/State/Zipcode | Phone Number | | Organization | | | | + +---------+ + + | EXTERNAL LAB | | | | + +---------+ + + Procalcitonin (07/01/2017 9:18 AM PDT) + + + + + + | Component | Value | Ref Range | Performed | Pathologist | | | | | At | Signature | + + + + + + | PROCALCITON | 0.12Comment: | ng/mL | EXTERNAL | | | IN | INTERPRETIVE | | LAB | | | | INFORMATION: | | | | | | PROCALCITONIN PCT <= | | | | | | 0.5 ng/mL: Low risk | | | | | | for progression to | | | | | | severe systemic | | | | | | bacterial infection | | | | | | (severe sepsis/septic | | | | | | shock). Does not | | | | | | exclude an infection, | | | | | | because localized | | | | | | infections may be | | | | | | associated with such low | | | | | | levels. If PCT is | | | | | | measured very early | | | | | | after bacterial | | | | | | challenge (usually <6 | | | | | | hours), results may | | | | | | still be low and | | | | | | should re-assess PCT | | | | | | 6-24 hours later. PCT | | | | | | >0.5 and <= 2 ng/mL: | | | | | | Moderate risk for | | | | | | progression to severe | | | | | | systemic infection | | | | | | (severe sepsis/septic | | | | | | shock). Other | | | | | | conditions are known | | | | | | to elevate PCT, patient | | | | | | should be closely | | | | | | monitored both | | | | | | clinically and by | | | | | | re-assessing PCT | | | | | | within 6-24 hours. PCT > | | | | | | 2 ng/mL: High | | | | | | likelihood for | | | | | | progression to severe | | | | | | systemic bacterial | | | | | | infection (severe | | | | | | sepsis/septic shock). | | | | | | PCT >= 10 ng/mL: | | | | | | High likelihood of | | | | | | severe sepsis or septic | | | | | | shock.Testing performed | | | | | | at [facility];[address] [place] [address] | | | | | | [facility];[place] [address] | | | | + + + + + + + + | Specimen | + + | | + + + +---------+ + + | Performing | Address | City/State/Zipcode | Phone Number | | Organization | | | | + +---------+ + + | EXTERNAL LAB | | | | + +---------+ + + Potassium (07/01/2017 9:18 AM PDT) + + + + + + | Component | Value | Ref Range | Performed | Pathologist | | | | | At | Signature | + + + + + + | K | 4.1Comment: SLT | 3.5 - 4.9 | EXTERNAL | | | | HEMOLYSISTesting | mmol/L | LAB | | | | performed at [facility];[address] | | | | | | [address];[place] | | | | | | [address] | | | | + + + + + + + + | Specimen | + + | Blood specimen | | (specimen) | + + + +---------+ + + | Performing | Address | City/State/Zipcode | Phone Number | | Organization | | | | + +---------+ + + | EXTERNAL LAB | | | | + +---------+ + + Vancomycin, Trough (07/01/2017 9:18 AM PDT) + + + + + + | Component | Value | Ref Range | Performed | Pathologist | | | | | At | Signature | + + + + + + | Vancomycin | 21.4 ()Comment: 15 to | 10 - 20 ug/mL | EXTERNAL | | | Trough | 20 ug/mL for meningitis, | | LAB | | | | osteomyelitis, | | | | | | endocarditis, sepsis, or | | | | | | healthcare associated | | | | | | pneumonia, or an STORMY | | | | | | equal to or greater than | | | | | | 1.0 ug/mLCALLED NURSING | | | | | | KASANDRA LARSON AT | | | | | | 09:55 BY EW READ BACK | | | | | | RESULTS VERIFIEDTesting | | | | | | performed at [facility];[address] | | | | | | [address];[place], [place] | | | | | | [address] | | | | + + + + + + + + | Specimen | + + | Blood specimen | | (specimen) | + + + +---------+ + + | Performing | Address | City/State/Zipcode | Phone Number | | Organization | | | | + +---------+ + + | EXTERNAL LAB | | | | + +---------+ + + POC Glucose (07/01/2017 5:53 AM PDT) + + + + + + | Component | Value | Ref Range | Performed | Pathologist | | | | | At | Signature | + + + + + + | Glucose, | 167 (H)Comment: Testing | 65 - 99 mg/dL | EXTERNAL | | | Fingerstick | performed at [facility];[address] | | LAB | | | | [address];[place], [place] | | | | | | [address] | | | | + + + + + + + + | Specimen | + + | | + + + +---------+ + + | Performing | Address | City/State/Zipcode | Phone Number | | Organization | | | | + +---------+ + + | EXTERNAL LAB | | | | + +---------+ + + XR Chest 1 Vw (07/01/2017 5:23 AM PDT) + + | Specimen | + + | | + + + + + | Impressions | Performed At | + + + | 1. Stable appearance of the chest. | | + + + + + + | Narrative | Performed At | + + + | HISTORY: Evaluate tubes and lines. COMPARISON: 06/30/17. | | | TECHNIQUE: AP portable film of the chest at 0511 hours FINDINGS: | | | Persistent density in the medial left upper lobe perhaps due to | | | aortic arch, poorly defined. Persistent small left pleural effusion. | | | Subtle reticular interstitial prominence throughout both lung jones. | | | No pneumothorax. No new findings. No tubes or lines. Minimal | | | subcutaneous emphysema lateral lower left chest. | | + + + + + | Procedure Note | + + | Meir, Rad Conversion - 10/15/2018 11:00 AM PDT HISTORY:Evaluate tubes and lines. | | COMPARISON:06/30/17. TECHNIQUE:AP portable film of the chest at 0511 hours | | FINDINGS:Persistent density in the medial left upper lobe perhaps due to aortic arch, | | poorly defined. Persistent small left pleural effusion. Subtle reticular interstitial | | prominence throughout both lung jones. No pneumothorax. No new findings. No tubes or | | lines. Minimal subcutaneous emphysema lateral lower left chest. IMPRESSION: 1. Stable | | appearance of the chest. | |AP portable film of the chest at 0511 hours | | | |FINDINGS: | |Persistent density in the medial left upper lobe perhaps due to aortic arch, poorly defined . Persistent small left pleural effusion. Subtle reticular interstitial prominence throughou t both lung jones. No pneumothorax. No new findings. No tubes or | |lines. Minimal subcutaneous emphysema lateral lower left chest. | | | |IMPRESSION: | |1. Stable appearance of the chest. | | | | | + + External Lab: CBC (07/01/2017 4:06 AM PDT) + + + + + + | Component | Value | Ref Range | Performed | Pathologist | | | | | At | Signature | + + + + + + | WBC | 16.90 (H) | 3.80 - 11.00 | EXTERNAL | | | | | K/uL | LAB | | + + + + + + | Non- | 3.18 (L) | 3.70 - 5.10 | EXTERNAL | | | Red Blood | | M/uL | LAB | | | Cells | | | | | | Counted | | | | | + + + + + + | Hemoglobin | 9.4 (L) | 11.3 - 15.5 | EXTERNAL | | | | | g/dL | LAB | | + + + + + + | Hematocrit, | 27.9 (L) | 34.0 - 46.0 % | EXTERNAL | | | POC | | | LAB | | + + + + + + | MCV | 87.8 | 80.0 - 100.0 fl | EXTERNAL | | | | | | LAB | | + + + + + + | MCH | 29.5 | 27.0 - 34.0 pg | EXTERNAL | | | | | | LAB | | + + + + + + | MCHC | 33.6 | 32.0 - 35.5 | EXTERNAL | | | | | g/dL | LAB | | + + + + + + | RDW-CV | 42.4 | 37 - 53 fl | EXTERNAL | | | | | | LAB | | + + + + + + | Platelet | 407 (H) | 150 - 400 K/uL | EXTERNAL | | | Count | | | LAB | | | Plasma | | | | | + + + + + + | MPV | 8.3 | fl | EXTERNAL | | | | | | LAB | | + + + + + + | Differentia | AUTOMATED | | EXTERNAL | | | l Type | | | LAB | | + + + + + + | % Segmented | 63.95 | % | EXTERNAL | | | | | | LAB | | | Neutrophils | | | | | + + + + + + | % | 19.52 | % | EXTERNAL | | | Lymphocytes | | | LAB | | + + + + + + | % Monocytes | 7.76 | % | EXTERNAL | | | | | | LAB | | + + + + + + | % | 8.07 | % | EXTERNAL | | | Eosinophils | | | LAB | | + + + + + + | % Basophils | 0.70 | % | EXTERNAL | | | | | | LAB | | + + + + + + | Absolute | 10.80 (H) | 1.90 - 7.40 | EXTERNAL | | | Segmented | | K/uL | LAB | | | Neutrophils | | | | | + + + + + + | Absolute | 3.30 | 1.00 - 3.90 | EXTERNAL | | | Lymphocytes | | K/uL | LAB | | + + + + + + | Absolute | 1.31 (H) | 0.00 - 0.80 | EXTERNAL | | | Monocytes | | K/uL | LAB | | + + + + + + | Absolute | 1.36 (H) | 0.00 - 0.50 | EXTERNAL | | | Eosinophils | | K/uL | LAB | | + + + + + + | Absolute | 0.12 (H)Comment: Testing | 0.00 - 0.10 | EXTERNAL | | | Basophils | performed at [facility], [address] | LAB | | | | [address], | | | | | | [place] [address] | | | | + + + + + + + + | Specimen | + + | Blood specimen | | (specimen) | + + + +---------+ + + | Performing | Address | City/State/Zipcode | Phone Number | | Organization | | | | + +---------+ + + | EXTERNAL LAB | | | | + +---------+ + + Magnesium (07/01/2017 4:06 AM PDT) + + + + + + | Component | Value | Ref Range | Performed | Pathologist | | | | | At | Signature | + + + + + + | Magnesium | 1.7Comment: Testing | 1.7 - 2.4 mg/dL | EXTERNAL | | | | performed at [facility], [address] | | LAB | | | | [address], | | | | | | [place] [address] | | | | + + + + + + + + | Specimen | + + | Blood specimen | | (specimen) | + + + +---------+ + + | Performing | Address | City/State/Zipcode | Phone Number | | Organization | | | | + +---------+ + + | EXTERNAL LAB | | | | + +---------+ + + Basic Metabolic Panel (07/01/2017 4:06 AM PDT) + + + + + + | Component | Value | Ref Range | Performed | Pathologist | | | | | At | Signature | + + + + + + | Na | 140 | 135 - 145 | EXTERNAL | | | | | mmol/L | LAB | | + + + + + + | K | 3.6 | 3.5 - 4.9 | EXTERNAL | | | | | mmol/L | LAB | | + + + + + + | Cl | 103 | 99 - 109 mmol/L | EXTERNAL | | | | | | LAB | | + + + + + + | CO2 | 32 | 23 - 32 mmol/L | EXTERNAL | | | | | | LAB | | + + + + + + | Anion Gap | 9 | 5 - 20 mmol/L | EXTERNAL | | | | | | LAB | | + + + + + + | Glucose, | 178 (H) | 65 - 99 mg/dL | EXTERNAL | | | Fasting | | | LAB | | + + + + + + | BUN | 15 | 8 - 25 mg/dL | EXTERNAL | | | | | | LAB | | + + + + + + | Creatinine | 0.9 | 0.50 - 1.00 | EXTERNAL | | | | | mg/dL | LAB | | + + + + + + | BUN/Creatin | 17 | | EXTERNAL | | | ine Ratio | | | LAB | | + + + + + + | Calcium | 8.2 (L) | 8.5 - 10.5 | EXTERNAL | | | | | mg/dL | LAB | | + + + [...] | | | | | | at [facility], [address] | | | | | | [address], | | | | | | [place] [address] | | | | + + + + + + + + | Specimen | + + | Blood specimen | | (specimen) | + + + +---------+ + + | Performing | Address | City/State/Zipcode | Phone Number | | Organization | | | | + +---------+ + + | EXTERNAL LAB | | | | + +---------+ + + POC Glucose (06/30/2017 9:06 PM PDT) + + + + + + | Component | Value | Ref Range | Performed | Pathologist | | | | | At | Signature | + + + + + + | Glucose, | 186 (H)Comment: Testing | 65 - 99 mg/dL | EXTERNAL | | | Fingerstick | performed at [facility];[address] | | LAB | | | | [address];[place] | | | | | | [address] | | | | + + + + + + + + | Specimen | + + | | + + + +---------+ + + | Performing | Address | City/State/Zipcode | Phone Number | | Organization | | | | + +---------+ + + | EXTERNAL LAB | | | | + +---------+ + + Potassium (06/30/2017 7:58 PM PDT) + + + + + + | Component | Value | Ref Range | Performed | Pathologist | | | | | At | Signature | + + + + + + | K | 4.0Comment: Testing | 3.5 - 4.9 | EXTERNAL | | | | performed at [facility];[address] | mmol/L | LAB | | | | [address];[place], [place] | | | | | | [address] | | | | + + + + + + + + | Specimen | + + | Blood specimen | | (specimen) | + + + +---------+ + + | Performing | Address | City/State/Zipcode | Phone Number | | Organization | | | | + +---------+ + + | EXTERNAL LAB | | | | + +---------+ + + Phosphorus (06/30/2017 7:58 PM PDT) + + + + + + | Component | Value | Ref Range | Performed | Pathologist | | | | | At | Signature | + + + + + + | PHOSPHORUS | 4.1Comment: Testing | 2.3 - 4.8 mg/dL | EXTERNAL | | | | performed at [facility];[address] | | LAB | | | | [address];[place] | | | | | | [address] | | | | + + + + + + + + | Specimen | + + | Blood specimen | | (specimen) | + + + +---------+ + + | Performing | Address | City/State/Zipcode | Phone Number | | Organization | | | | + +---------+ + + | EXTERNAL LAB | | | | + +---------+ + + Magnesium (06/30/2017 7:58 PM PDT) + + + + + + | Component | Value | Ref Range | Performed | Pathologist | | | | | At | Signature | + + + + + + | Magnesium | 1.7Comment: Testing | 1.7 - 2.4 mg/dL | EXTERNAL | | | | performed at [facility];[address] | | LAB | | | | [address];[place], [place] | | | | | | [address] | | | | + + + + + + + + | Specimen | + + | Blood specimen | | (specimen) | + + + +---------+ + + | Performing | Address | City/State/Zipcode | Phone Number | | Organization | | | | + +---------+ + + | EXTERNAL LAB | | | | + +---------+ + + POC Glucose (06/30/2017 3:47 PM PDT) + + + + + + | Component | Value | Ref Range | Performed | Pathologist | | | | | At | Signature | + + + + + + | Glucose, | 124 (H)Comment: Testing | 65 - 99 mg/dL | EXTERNAL | | | Fingerstick | performed at [facility] | | LAB | | | | [address];[place], [place] | | | | | | [id number] | | | | + + + + + + + + | Specimen | + + | | + + + +---------+ + + | Performing | Address | City/State/Zipcode | Phone Number | | Organization | | | | + +---------+ + + | EXTERNAL LAB | | | | + +---------+ + + POC Glucose (06/30/2017 11:51 AM PDT) + + + + + + | Component | Value | Ref Range | Performed | Pathologist | | | | | At | Signature | + + + + + + | Glucose, | 228 (H)Comment: Testing | 65 - 99 mg/dL | EXTERNAL | | | Fingerstick | performed at [facility];[address] | | LAB | | | | [address];[place] | | | | | | [address] | | | | + + + + + + + + | Specimen | + + | | + + + +---------+ + + | Performing | Address | City/State/Zipcode | Phone Number | | Organization | | | | + +---------+ + + | EXTERNAL LAB | | | | + +---------+ + + Vancomycin, Trough (06/30/2017 9:39 AM PDT) + + + + + + | Component | Value | Ref Range | Performed | Pathologist | | | | | At | Signature | + + + + + + | Vancomycin | 13.7Comment: 15 to 20 | 10 - 20 ug/mL | EXTERNAL | | | Trough | ug/mL for meningitis, | | LAB | | | | osteomyelitis, | | | | | | endocarditis, sepsis, or | | | | | | healthcare associated | | | | | | pneumonia, or an STORMY | | | | | | equal to or greater than | | | | | | 1.0 ug/mLTesting | | | | | | performed at [facility] | | | | | | [place] Home;[place], [place] | | | | | | [address] | | | | + + + + + + + + | Specimen | + + | Blood specimen | | (specimen) | + + + +---------+ + + | Performing | Address | City/State/Zipcode | Phone Number | | Organization | | | | + +---------+ + + | EXTERNAL LAB | | | | + +---------+ + + POC Glucose (06/30/2017 6:01 AM PDT) + + + + + + | Component | Value | Ref Range | Performed | Pathologist | | | | | At | Signature | + + + + + + | Glucose, | 272 (H)Comment: Testing | 65 - 99 mg/dL | EXTERNAL | | | Fingerstick | performed at [facility];[address] | | LAB | | | | [address];[place] | | | | | | [address] | | | | + + + + + + + + | Specimen | + + | | + + + +---------+ + + | Performing | Address | City/State/Zipcode | Phone Number | | Organization | | | | + +---------+ + + | EXTERNAL LAB | | | | + +---------+ + + ECG 12 lead (06/30/2017 5:13 AM PDT) + + + + + + | Component | Value | Ref Range | Performed | Pathologist | | | | | At | Signature | + + + + + + | DIAGNOSIS: | Normal sinus | | EXTERNAL | | | | rhythmPossible Anterior | | LAB | | | | infarct (cited on or | | | | | | before | | | | | | 25-JUN-2017)Abnormal | | | | | | ECGWhen compared with | | | | | | ECG of 27-JUN-2017 | | | | | | 08:13,Serial changes of | | | | | | Anterior infarct | | | | | | PresentConfirmed by | | | | | | ABEL BULLARD ([id number]) on | | | | | | 06/30/2017 10:26:22 AM | | | | + + + + + + + + | Specimen | + + | | + + + + + | Narrative | Performed At | + + + | Historically converted procedure from [facility] environment | EXTERNAL LAB | + + + + +---------+ + + | Performing | Address | City/State/Zipcode | Phone Number | | Organization | | | | + +---------+ + + | EXTERNAL LAB | | | | + +---------+ + + XR Chest 1 Vw 06/30/2017 5:09 AM PDT) + + | Specimen | + + | | + + + + + | Impressions | Performed At | + + + | 1. Overall, no significant interval change compared with the exam | | | done the day prior. | | + + + + + + | Narrative | Performed At | + + + | NANCY TERRAZAS XR CHEST 1 VIEW 06/30/2017 5:09 AM HISTORY: | | | Follow-up status post left lower lobectomy. TECHNIQUE: AP chest | | | radiograph 0507 hours. COMPARISON: Chest radiographs, most recent | | | June 2017. FINDINGS: Unchanged left hemithorax volume loss. | | | Unchanged small to moderate left pleural effusion. Unchanged mild | | | diffuse mixed interstitial alveolar lung opacities without | | | pneumothorax. Cardiac silhouette partially obscured without gross | | | cardiomegaly. Remainder is stable. | | + + + + + | Procedure Note | + + | Meir, Rad Conversion - 10/15/2018 11:00 AM PDT NANCY NOBLE CHEST 1 | | VIEW06/30/2017 5:09 AM HISTORY:Follow-up status post left lower lobectomy. TECHNIQUE:AP | | chest radiograph 0507 hours. COMPARISON:Chest radiographs, most recent June 2017. | | FINDINGS:Unchanged left hemithorax volume loss. Unchanged small to moderate left pleural | | effusion. Unchanged mild diffuse mixed interstitial alveolar lung opacities without | | pneumothorax. Cardiac silhouette partially obscured without gross cardiomegaly. | | Remainder is stable. IMPRESSION: 1. Overall, no significant interval change compared | | with the exam done the day prior. Electronically signed by Griffin Begum MD on | | 06/30/2017 7:14 AM | | | |COMPARISON: | |Chest radiographs, most recent June 2017. | | | |FINDINGS: | |Unchanged left hemithorax volume loss. Unchanged small to moderate left pleural effusion. U nchanged mild diffuse mixed interstitial alveolar lung opacities without pneumothorax. Cardi ac silhouette partially obscured | |without gross cardiomegaly. Remainder | |is stable. | | | |IMPRESSION: | |1. Overall, no significant interval change compared with the exam done the day prior. | | | | | + + External Lab: CBC (06/30/2017 4:18 AM PDT) + + + + + + | Component | Value | Ref Range | Performed | Pathologist | | | | | At | Signature | + + + + + + | WBC | 13.28 (H) | 3.80 - 11.00 | EXTERNAL | | | | | K/uL | LAB | | + + + + + + | Non- | 2.89 (L) | 3.70 - 5.10 | EXTERNAL | | | Red Blood | | M/uL | LAB | | | Cells | | | | | | Counted | | | | | + + + + + + | Hemoglobin | 8.6 (L) | 11.3 - 15.5 | EXTERNAL | | | | | g/dL | LAB | | + + + + + + | Hematocrit, | 25.3 (L) | 34.0 - 46.0 % | EXTERNAL | | | POC | | | LAB | | + + + + + + | MCV | 87.5 | 80.0 - 100.0 fl | EXTERNAL | | | | | | LAB | | + + + + + + | MCH | 29.6 | 27.0 - 34.0 pg | EXTERNAL | | | | | | LAB | | + + + + + + | MCHC | 33.9 | 32.0 - 35.5 | EXTERNAL | | | | | g/dL | LAB | | + + + + + + | RDW-CV | 42.4 | 37 - 53 fl | EXTERNAL | | | | | | LAB | | + + + + + + | Platelet | 378 | 150 - 400 K/uL | EXTERNAL | | | Count | | | LAB | | | Plasma | | | | | + + + + + + | MPV | 8.2 | fl | EXTERNAL | | | | | | LAB | | + + + + + + | Differentia | AUTOMATED | | EXTERNAL | | | l Type | | | LAB | | + + + + + + | % Segmented | 64.56 | % | EXTERNAL | | | | | | LAB | | | Neutrophils | | | | | + + + + + + | % | 19.00 | % | EXTERNAL | | | Lymphocytes | | | LAB | | + + + + + + | % Monocytes | 8.57 | % | EXTERNAL | | | | | | LAB | | + + + + + + | % | 7.38 | % | EXTERNAL | | | Eosinophils | | | LAB | | + + + + + + | % Basophils | 0.49 | % | EXTERNAL | | | | | | LAB | | + + + + + + | Absolute | 8.57 (H) | 1.90 - 7.40 | EXTERNAL | | | Segmented | | K/uL | LAB | | | Neutrophils | | | | | + + + + + + | Absolute | 2.52 | 1.00 - 3.90 | EXTERNAL | | | Lymphocytes | | K/uL | LAB | | + + + + + + | Absolute | 1.14 (H) | 0.00 - 0.80 | EXTERNAL | | | Monocytes | | K/uL | LAB | | + + + + + + | Absolute | 0.98 (H) | 0.00 - 0.50 | EXTERNAL | | | Eosinophils | | K/uL | LAB | | + + + + + + | Absolute | 0.07Comment: Testing | 0.00 - 0.10 | EXTERNAL | | | Basophils | performed at [facility], [address] | K/[address] | LAB | | | | [address], | | | | | | [place] [address] | | | | + + + + + + + + | Specimen | + + | Blood specimen | | (specimen) | + + + +---------+ + + | Performing | Address | City/State/Zipcode | Phone Number | | Organization | | | | + +---------+ + + | EXTERNAL LAB | | | | + +---------+ + + Magnesium (06/30/2017 4:18 AM PDT) + + + + + + | Component | Value | Ref Range | Performed | Pathologist | | | | | At | Signature | + + + + + + | Magnesium | 1.8Comment: Testing | 1.7 - 2.4 mg/dL | EXTERNAL | | | | performed at [facility], [address] | | LAB | | | | [facility], | | | | | | [place] [address] | | | | + + + + + + + + | Specimen | + + | Blood specimen | | (specimen) | + + + +---------+ + + | Performing | Address | City/State/Zipcode | Phone Number | | Organization | | | | + +---------+ + + | EXTERNAL LAB | | | | + +---------+ + + Basic Metabolic Panel (06/30/2017 4:18 AM PDT) + + + + + + | Component | Value | Ref Range | Performed | Pathologist | | | | | At | Signature | + + + + + + | Na | 143 | 135 - 145 | EXTERNAL | | | | | mmol/L | LAB | | + + + + + + | K | 3.8 | 3.5 - 4.9 | EXTERNAL | | | | | mmol/L | LAB | | + + + + + + | Cl | 107 | 99 - 109 mmol/L | EXTERNAL | | | | | | LAB | | + + + + + + | CO2 | 27 | 23 - 32 mmol/L | EXTERNAL | | | | | | LAB | | + + + + + + | Anion Gap | 13 | 5 - 20 mmol/L | EXTERNAL | | | | | | LAB | | + + + + + + | Glucose, | 267 (H) | 65 - 99 mg/dL | EXTERNAL | | | Fasting | | | LAB | | + + + + + + | BUN | 10 | 8 - 25 mg/dL | EXTERNAL | | | | | | LAB | | + + + + + + | Creatinine | 0.6 | 0.50 - 1.00 | EXTERNAL | | | | | mg/dL | LAB | | + + + + + + | BUN/Creatin | 17 | | EXTERNAL | | | ine Ratio | | | LAB | | + + + + + + | Calcium | 8.1 (L) | 8.5 - 10.5 | EXTERNAL | | | | | mg/dL | LAB | | + + + [...] | | | | | | at [facility], [address] | | | | | | [facility], | | | | | | [place] [address] | | | | + + + + + + + + | Specimen | + + | Blood specimen | | (specimen) | + + + +---------+ + + | Performing | Address | City/State/Zipcode | Phone Number | | Organization | | | | + +---------+ + + | EXTERNAL LAB | | | | + +---------+ + + POC Glucose (06/29/2017 9:38 PM PDT) + + + + + + | Component | Value | Ref Range | Performed | Pathologist | | | | | At | Signature | + + + + + + | Glucose, | 311 (H)Comment: Testing | 65 - 99 mg/dL | EXTERNAL | | | Fingerstick | performed at [facility];[address] | | LAB | | | | [address];[place], [place] | | | | | | [address] | | | | + + + + + + + + | Specimen | + + | | + + + +---------+ + + | Performing | Address | City/State/Zipcode | Phone Number | | Organization | | | | + +---------+ + + | EXTERNAL LAB | | | | + +---------+ + + Magnesium (06/29/2017 4:58 PM PDT) + + + + + + | Component | Value | Ref Range | Performed | Pathologist | | | | | At | Signature | + + + + + + | Magnesium | 1.9Comment: Testing | 1.7 - 2.4 mg/dL | EXTERNAL | | | | performed at [facility];[address] | | LAB | | | | [address];[place], [place] | | | | | | [address] | | | | + + + + + + + + | Specimen | + + | Blood specimen | | (specimen) | + + + +---------+ + + | Performing | Address | City/State/Zipcode | Phone Number | | Organization | | | | + +---------+ + + | EXTERNAL LAB | | | | + +---------+ + + POC Glucose (06/29/2017 4:39 PM PDT) + + + + + + | Component | Value | Ref Range | Performed | Pathologist | | | | | At | Signature | + + + + + + | Glucose, | 272 (H)Comment: Testing | 65 - 99 mg/dL | EXTERNAL | | | Fingerstick | performed at [facility];[address] | | LAB | | | | [address];[place], [place] | | | | | | [address] | | | | + + + + + + + + | Specimen | + + | | + + + +---------+ + + | Performing | Address | City/State/Zipcode | Phone Number | | Organization | | | | + +---------+ + + | EXTERNAL LAB | | | | + +---------+ + + POC Glucose (06/29/2017 11:31 AM PDT) + + + + + + | Component | Value | Ref Range | Performed | Pathologist | | | | | At | Signature | + + + + + + | Glucose, | 314 (H)Comment: Testing | 65 - 99 mg/dL | EXTERNAL | | | Fingerstick | performed at [facility];[address] | | LAB | | | | [address];[place] | | | | | | [address] | | | | + + + + + + + + | Specimen | + + | | + + + +---------+ + + | Performing | Address | City/State/Zipcode | Phone Number | | Organization | | | | + +---------+ + + | EXTERNAL LAB | | | | + +---------+ + + Vancomycin, Trough (06/29/2017 8:27 AM PDT) + + + + + + | Component | Value | Ref Range | Performed | Pathologist | | | | | At | Signature | + + + + + + | Vancomycin | 8.3 (L)Comment: 15 to 20 | 10 - 20 ug/mL | EXTERNAL | | | Trough | ug/mL for meningitis, | | LAB | | | | osteomyelitis, | | | | | | endocarditis, sepsis, or | | | | | | healthcare associated | | | | | | pneumonia, or an STORMY | | | | | | equal to or greater than | | | | | | 1.0 ug/mLTesting | | | | | | performed at [facility] | | | | | | [address];[place], [place] | | | | | | [address] | | | | + + + + + + + + | Specimen | + + | Blood specimen | | (specimen) | + + + +---------+ + + | Performing | Address | City/State/Zipcode | Phone Number | | Organization | | | | + +---------+ + + | EXTERNAL LAB | | | | + +---------+ + + POC Glucose (06/29/2017 5:40 AM PDT) + + + + + + | Component | Value | Ref Range | Performed | Pathologist | | | | | At | Signature | + + + + + + | Glucose, | 248 (H)Comment: Testing | 65 - 99 mg/dL | EXTERNAL | | | Fingerstick | performed at [facility];[address] | | LAB | | | | [address];[place] | | | | | | [address] | | | | + + + + + + + + | Specimen | + + | | + + + +---------+ + + | Performing | Address | City/State/Zipcode | Phone Number | | Organization | | | | + +---------+ + + | EXTERNAL LAB | | | | + +---------+ + + XR Chest 1 Vw (06/29/2017 5:07 AM PDT) + + | Specimen | + + | | + + + + + | Impressions | Performed At | + + + | 1. Slightly decreased pulmonary vascular congestion since | | | yesterday. 2. Status post left lower lobectomy. 3. Small | | | left-sided effusion noted unchanged from yesterday. 4. No evidence | | | of pneumothorax post removal of left-sided central line. | | | | | + + + + + + | Narrative | Performed At | + + + | NANCY TERRAZAS XR CHEST 1 VIEW 06/29/2017 5:07 AM HISTORY: | | | 46 years. Female. Acute respiratory failure with hypoxia. 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 Patient is status post | | | thoracotomy. Patient is status post VATS-assisted left lower | | | lobectomy on 06/21/2017. TECHNIQUE: 1 view of the chest obtained | | | at 0505 hours. COMPARISON: 06/28/2017. FINDINGS: Overlying | | | EKG leads and oxygen tubing are noted. No endotracheal tube, | | | orogastric tube or central line is observed. A previously seen | | | left-sided central line has been removed. There is no evidence of | | | pneumothorax. There is volume loss in the left hemithorax | | | consistent with the history of left lower lobectomy. A small | | | left-sided pleural effusion is seen, unchanged from yesterday. There | | | is pulmonary vascular congestion noted bilaterally with a greater | | | degree of interstitial edema in the left lung. The amount of | | | interstitial pulmonary edema has slightly decreased since yesterday. | | | The osseous structures are intact. | | + + + + + | Procedure Note | + + | Ross Worley Conversion - 10/15/2018 11:00 MANDY NOBLE CHEST 1 | | VIEW06/29/2017 5:07 AM HISTORY:46 years. Female. Acute respiratory failure with | | hypoxia. 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 Patient is status post | | thoracotomy. Patient is status post VATS-assisted left lower lobectomy on 06/21/2017. | | TECHNIQUE:1 view of the chest obtained at 0505 hours. COMPARISON:06/28/2017. | | FINDINGS:Overlying EKG leads and oxygen tubing are noted. No endotracheal tube, | | orogastric tube or central line is observed. A previously seen left-sided central line | | has been removed. There is no evidence of pneumothorax. There is volume loss in the | | left hemithorax consistent with the history of left lower lobectomy. A small left-sided | | pleural effusion is seen, unchanged from yesterday. There is pulmonary vascular | | congestion noted bilaterally with a greater degree of interstitial edema in the left | | lung. The amount of interstitial pulmonary edema has slightly decreased since | | yesterday. The osseous structures are intact. IMPRESSION: 1. Slightly decreased | | pulmonary vascular congestion since yesterday.2. Status post left lower lobectomy.3. | | Small left-sided effusion noted unchanged from yesterday.4. No evidence of pneumothorax | | post removal of left-sided central line. Electronically signed by Deng Reed DO on | | 06/29/2017 7:22 AM | | | |IMPRESSION: | |1. Slightly decreased pulmonary vascular congestion since yesterday. | |2. Status post left lower lobectomy. | |3. Small left-sided effusion noted unchanged from yesterday. | |4. No evidence of pneumothorax post removal of left-sided central line. | | | | | + + External Lab: CBC (06/29/2017 4:11 AM PDT) + + + + + + | Component | Value | Ref Range | Performed | Pathologist | | | | | At | Signature | + + + + + + | WBC | 12.85 (H) | 3.80 - 11.00 | EXTERNAL | | | | | K/uL | LAB | | + + + + + + | Non- | 2.90 (L) | 3.70 - 5.10 | EXTERNAL | | | Red Blood | | M/uL | LAB | | | Cells | | | | | | Counted | | | | | + + + + + + | Hemoglobin | 8.7 (L) | 11.3 - 15.5 | EXTERNAL | | | | | g/dL | LAB | | + + + + + + | Hematocrit, | 25.8 (L) | 34.0 - 46.0 % | EXTERNAL | | | POC | | | LAB | | + + + + + + | MCV | 88.7 | 80.0 - 100.0 fl | EXTERNAL | | | | | | LAB | | + + + + + + | MCH | 30.1 | 27.0 - 34.0 pg | EXTERNAL | | | | | | LAB | | + + + + + + | MCHC | 33.9 | 32.0 - 35.5 | EXTERNAL | | | | | g/dL | LAB | | + + + + + + | RDW-CV | 42.4 | 37 - 53 fl | EXTERNAL | | | | | | LAB | | + + + + + + | Platelet | 342 | 150 - 400 K/uL | EXTERNAL | | | Count | | | LAB | | | Plasma | | | | | + + + + + + | MPV | 8.3 | fl | EXTERNAL | | | | | | LAB | | + + + + + + | Differentia | AUTOMATED | | EXTERNAL | | | l Type | | | LAB | | + + + + + + | % Segmented | 61.81 | % | EXTERNAL | | | | | | LAB | | | Neutrophils | | | | | + + + + + + | % | 20.91 | % | EXTERNAL | | | Lymphocytes | | | LAB | | + + + + + + | % Monocytes | 9.37 | % | EXTERNAL | | | | | | LAB | | + + + + + + | % | 7.42 | % | EXTERNAL | | | Eosinophils | | | LAB | | + + + + + + | % Basophils | 0.49 | % | EXTERNAL | | | | | | LAB | | + + + + + + | Absolute | 7.94 (H) | 1.90 - 7.40 | EXTERNAL | | | Segmented | | K/uL | LAB | | | Neutrophils | | | | | + + + + + + | Absolute | 2.69 | 1.00 - 3.90 | EXTERNAL | | | Lymphocytes | | K/uL | LAB | | + + + + + + | Absolute | 1.20 (H) | 0.00 - 0.80 | EXTERNAL | | | Monocytes | | K/uL | LAB | | + + + + + + | Absolute | 0.95 (H) | 0.00 - 0.50 | EXTERNAL | | | Eosinophils | | K/uL | LAB | | + + + + + + | Absolute | 0.06Comment: Testing | 0.00 - 0.10 | EXTERNAL | | | Basophils | performed at [facility], [address] | [address] | LAB | | | | [address], | | | | | | [place] [address] | | | | + + + + + + + + | Specimen | + + | Blood specimen | | (specimen) | + + + +---------+ + + | Performing | Address | City/State/Zipcode | Phone Number | | Organization | | | | + +---------+ + + | EXTERNAL LAB | | | | + +---------+ + + Magnesium (06/29/2017 4:11 AM PDT) + + + + + + | Component | Value | Ref Range | Performed | Pathologist | | | | | At | Signature | + + + + + + | Magnesium | 1.6 (L)Comment: Testing | 1.7 - 2.4 mg/dL | EXTERNAL | | | | performed at [facility], [address] | | LAB | | | | [address], | | | | | | [place] [address] | | | | + + + + + + + + | Specimen | + + | Blood specimen | | (specimen) | + + + +---------+ + + | Performing | Address | City/State/Zipcode | Phone Number | | Organization | | | | + +---------+ + + | EXTERNAL LAB | | | | + +---------+ + + Basic Metabolic Panel (06/29/2017 4:11 AM PDT) + + + + + + | Component | Value | Ref Range | Performed | Pathologist | | | | | At | Signature | + + + + + + | Na | 144 | 135 - 145 | EXTERNAL | | | | | mmol/L | LAB | | + + + + + + | K | 3.8 | 3.5 - 4.9 | EXTERNAL | | | | | mmol/L | LAB | | + + + + + + | Cl | 107 | 99 - 109 mmol/L | EXTERNAL | | | | | | LAB | | + + + + + + | CO2 | 27 | 23 - 32 mmol/L | EXTERNAL | | | | | | LAB | | + + + + + + | Anion Gap | 14 | 5 - 20 mmol/L | EXTERNAL | | | | | | LAB | | + + + + + + | Glucose, | 214 (H) | 65 - 99 mg/dL | EXTERNAL | | | Fasting | | | LAB | | + + + + + + | BUN | 9 | 8 - 25 mg/dL | EXTERNAL | | | | | | LAB | | + + + + + + | Creatinine | 0.6 | 0.50 - 1.00 | EXTERNAL | | | | | mg/dL | LAB | | + + + + + + | BUN/Creatin | 15 | | EXTERNAL | | | ine Ratio | | | LAB | | + + + + + + | Calcium | 8.1 (L) | 8.5 - 10.5 | EXTERNAL | | | | | mg/dL | LAB | | + + + [...] [address], | | | | | | [place] [address] | | | | + + + + + + + + | Specimen | + + | Blood specimen | | (specimen) | + + + +---------+ + + | Performing | Address | City/State/Zipcode | Phone Number | | Organization | | | | + +---------+ + + | EXTERNAL LAB | | | | + +---------+ + + Potassium (06/28/2017 11:04 PM PDT) + + + + + + | Component | Value | Ref Range | Performed | Pathologist | | | | | At | Signature | + + + + + + | K | 4.0Comment: Testing | 3.5 - 4.9 | EXTERNAL | | | | performed at [facility];[address] | mmol/L | LAB | | | | [address];[place] | | | | | | [address] | | | | + + + + + + + + | Specimen | + + | Blood specimen | | (specimen) | + + + +---------+ + + | Performing | Address | City/State/Zipcode | Phone Number | | Organization | | | | + +---------+ + + | EXTERNAL LAB | | | | + +---------+ + + POC Glucose (06/28/2017 9:07 PM PDT) + + + + + + | Component | Value | Ref Range | Performed | Pathologist | | | | | At | Signature | + + + + + + | Glucose, | 272 (H)Comment: Testing | 65 - 99 mg/dL | EXTERNAL | | | Fingerstick | performed at [facility];[address] | | LAB | | | | [address];[place] | | | | | | [address] | | | | + + + + + + + + | Specimen | + + | | + + + +---------+ + + | Performing | Address | City/State/Zipcode | Phone Number | | Organization | | | | + +---------+ + + | EXTERNAL LAB | | | | + +---------+ + + POC Glucose (06/28/2017 5:31 PM PDT) + + + + + + | Component | Value | Ref Range | Performed | Pathologist | | | | | At | Signature | + + + + + + | Glucose, | 326 (H)Comment: Testing | 65 - 99 mg/dL | EXTERNAL | | | Fingerstick | performed at [facility];[address] | | LAB | | | | [address];[place] | | | | | | [address] | | | | + + + + + + + + | Specimen | + + | | + + + +---------+ + + | Performing | Address | City/State/Zipcode | Phone Number | | Organization | | | | + +---------+ + + | EXTERNAL LAB | | | | + +---------+ + + Potassium (06/28/2017 4:34 PM PDT) + + + + + + | Component | Value | Ref Range | Performed | Pathologist | | | | | At | Signature | + + + + + + | K | 3.7Comment: Testing | 3.5 - 4.9 | EXTERNAL | | | | performed at [facility];[address] | mmol/L | LAB | | | | [address];[place], [place] | | | | | | [address] | | | | + + + + + + + + | Specimen | + + | Blood specimen | | (specimen) | + + + +---------+ + + | Performing | Address | City/State/Zipcode | Phone Number | | Organization | | | | + +---------+ + + | EXTERNAL LAB | | | | + +---------+ + + Potassium (06/28/2017 10:51 AM PDT) + + + + + + | Component | Value | Ref Range | Performed | Pathologist | | | | | At | Signature | + + + + + + | K | 3.7Comment: Testing | 3.5 - 4.9 | EXTERNAL | | | | performed at [facility];[address] | mmol/L | LAB | | | | [address];[place], [place] | | | | | | [address] | | | | + + + + + + + + | Specimen | + + | Blood specimen | | (specimen) | + + + +---------+ + + | Performing | Address | City/State/Zipcode | Phone Number | | Organization | | | | + +---------+ + + | EXTERNAL LAB | | | | + +---------+ + + POC Glucose (06/28/2017 10:25 AM PDT) + + + + + + | Component | Value | Ref Range | Performed | Pathologist | | | | | At | Signature | + + + + + + | Glucose, | 208 (H)Comment: Testing | 65 - 99 mg/dL | EXTERNAL | | | Fingerstick | performed at [facility];[address] | | LAB | | | | [address];[place] | | | | | | [address] | | | | + + + + + + + + | Specimen | + + | | + + + +---------+ + + | Performing | Address | City/State/Zipcode | Phone Number | | Organization | | | | + +---------+ + + | EXTERNAL LAB | | | | + +---------+ + + POC Glucose (06/28/2017 5:32 AM PDT) + + + + + + | Component | Value | Ref Range | Performed | Pathologist | | | | | At | Signature | + + + + + + | Glucose, | 159 (H)Comment: Testing | 65 - 99 mg/dL | EXTERNAL | | | Fingerstick | performed at [facility];[address] | | LAB | | | | [address];[place] | | | | | | [address] | | | | + + + + + + + + | Specimen | + + | | + + + +---------+ + + | Performing | Address | City/State/Zipcode | Phone Number | | Organization | | | | + +---------+ + + | EXTERNAL LAB | | | | + +---------+ + + XR Chest 1 Vw (06/28/2017 5:14 AM PDT) + + | Specimen | + + | | + + + + + | Impressions | Performed At | + + + | 1. Removal ET tube and NG tube, with resolution of the left apical | | | pneumothorax. Tubes and lines otherwise unchanged. 2. Persistent | | | left greater than right lung mixed interstitial and airspace | | | infiltrates, with small left effusion. | | + + + + + + | Narrative | Performed At | + + + | HISTORY: Evaluate tubes and lines. COMPARISON: 06/27/17. | | | TECHNIQUE: AP portable film of the chest at 0512 hours FINDINGS: | | | Removal of ET tube and NG tube. Left IJ central venous catheter | | | unchanged. Persistent mixed interstitial and airspace infiltrates | | | throughout both lungs. Small left effusion. Partial silhouetting left | | | hemidiaphragm. Heart size is normal. Resolution small left apical | | | pneumothorax. | | + + + + + | Procedure Note | + + | Meir, Rad Conversion - 10/15/2018 11:00 AM PDT HISTORY:Evaluate tubes and lines. | | COMPARISON:06/27/17. TECHNIQUE:AP portable film of the chest at 0512 hours | | FINDINGS:Removal of ET tube and NG tube. Left IJ central venous catheter unchanged. | | Persistent mixed interstitial and airspace infiltrates throughout both lungs. Small left | | effusion. Partial silhouetting left hemidiaphragm. Heart size is normal. Resolution | | small left apical pneumothorax. IMPRESSION: 1. Removal ET tube and NG tube, with | | resolution of the left apical pneumothorax. Tubes and lines otherwise unchanged.2. | | Persistent left greater than right lung mixed interstitial and airspace infiltrates, | | with small left effusion. | | AM | |Removal of ET tube and NG tube. Left IJ central venous catheter unchanged. Persistent mixed interstitial and airspace infiltrates throughout both lungs. Small left effusion. Partial s ilhouetting left hemidiaphragm. Heart | |size is normal. Resolution small | |left apical pneumothorax. | | | |IMPRESSION: | |1. Removal ET tube and NG tube, with resolution of the left apical pneumothorax. Tubes and lines otherwise unchanged. | |2. Persistent left greater than right lung mixed interstitial and airspace infiltrates, wi th small left effusion. | | | | | + + External Lab: CBC (06/28/2017 3:56 AM PDT) + + + + + + | Component | Value | Ref Range | Performed | Pathologist | | | | | At | Signature | + + + + + + | WBC | 14.42 (H) | 3.80 - 11.00 | EXTERNAL | | | | | K/uL | LAB | | + + + + + + | Non- | 2.99 (L) | 3.70 - 5.10 | EXTERNAL | | | Red Blood | | M/uL | LAB | | | Cells | | | | | | Counted | | | | | + + + + + + | Hemoglobin | 8.8 (L) | 11.3 - 15.5 | EXTERNAL | | | | | g/dL | LAB | | + + + + + + | Hematocrit, | 26.3 (L) | 34.0 - 46.0 % | EXTERNAL | | | POC | | | LAB | | + + + + + + | MCV | 88.1 | 80.0 - 100.0 fl | EXTERNAL | | | | | | LAB | | + + + + + + | MCH | 29.5 | 27.0 - 34.0 pg | EXTERNAL | | | | | | LAB | | + + + + + + | MCHC | 33.5 | 32.0 - 35.5 | EXTERNAL | | | | | g/dL | LAB | | + + + + + + | RDW-CV | 42.4 | 37 - 53 fl | EXTERNAL | | | | | | LAB | | + + + + + + | Platelet | 354 | 150 - 400 K/uL | EXTERNAL | | | Count | | | LAB | | | Plasma | | | | | + + + + + + | MPV | 8.5 | fl | EXTERNAL | | | | | | LAB | | + + + + + + | Differentia | AUTOMATED | | EXTERNAL | | | l Type | | | LAB | | + + + + + + | % Segmented | 72.09 | % | EXTERNAL | | | | | | LAB | | | Neutrophils | | | | | + + + + + + | % | 14.08 | % | EXTERNAL | | | Lymphocytes | | | LAB | | + + + + + + | % Monocytes | 8.23 | % | EXTERNAL | | | | | | LAB | | + + + + + + | % | 5.28 | % | EXTERNAL | | | Eosinophils | | | LAB | | + + + + + + | % Basophils | 0.32 | % | EXTERNAL | | | | | | LAB | | + + + + + + | Absolute | 10.40 (H) | 1.90 - 7.40 | EXTERNAL | | | Segmented | | K/uL | LAB | | | Neutrophils | | | | | + + + + + + | Absolute | 2.03 | 1.00 - 3.90 | EXTERNAL | | | Lymphocytes | | K/uL | LAB | | + + + + + + | Absolute | 1.19 (H) | 0.00 - 0.80 | EXTERNAL | | | Monocytes | | K/uL | LAB | | + + + + + + | Absolute | 0.76 (H) | 0.00 - 0.50 | EXTERNAL | | | Eosinophils | | K/uL | LAB | | + + + + + + | Absolute | 0.05Comment: Testing | 0.00 - 0.10 | EXTERNAL | | | Basophils | performed at [facility], [address] | K/u[address] | LAB | | | | [address], | | | | | | [place] [address] | | | | + + + + + + + + | Specimen | + + | Blood specimen | | (specimen) | + + + +---------+ + + | Performing | Address | City/State/Zipcode | Phone Number | | Organization | | | | + +---------+ + + | EXTERNAL LAB | | | | + +---------+ + + Magnesium (06/28/2017 3:56 AM PDT) + + + + + + | Component | Value | Ref Range | Performed | Pathologist | | | | | At | Signature | + + + + + + | Magnesium | 1.7Comment: Testing | 1.7 - 2.4 mg/dL | EXTERNAL | | | | performed at [facility], [address] | | LAB | | | | [address], | | | | | | [place] [address] | | | | + + + + + + + + | Specimen | + + | Blood specimen | | (specimen) | + + + +---------+ + + | Performing | Address | City/State/Zipcode | Phone Number | | Organization | | | | + +---------+ + + | EXTERNAL LAB | | | | + +---------+ + + Basic Metabolic Panel (06/28/2017 3:56 AM PDT) + + + + + + | Component | Value | Ref Range | Performed | Pathologist | | | | | At | Signature | + + + + + + | Na | 143 | 135 - 145 | EXTERNAL | | | | | mmol/L | LAB | | + + + + + + | K | 3.5 | 3.5 - 4.9 | EXTERNAL | | | | | mmol/L | LAB | | + + + + + + | Cl | 108 | 99 - 109 mmol/L | EXTERNAL | | | | | | LAB | | + + + + + + | CO2 | 27 | 23 - 32 mmol/L | EXTERNAL | | | | | | LAB | | + + + + + + | Anion Gap | 12 | 5 - 20 mmol/L | EXTERNAL | | | | | | LAB | | + + + + + + | Glucose, | 138 (H) | 65 - 99 mg/dL | EXTERNAL | | | Fasting | | | LAB | | + + + + + + | BUN | 15 | 8 - 25 mg/dL | EXTERNAL | | | | | | LAB | | + + + + + + | Creatinine | 0.5 | 0.50 - 1.00 | EXTERNAL | | | | | mg/dL | LAB | | + + + + + + | BUN/Creatin | 30 | | EXTERNAL | | | ine Ratio | | | LAB | | + + + + + + | Calcium | 8.4 (L) | 8.5 - 10.5 | EXTERNAL | | | | | mg/dL | LAB | | + + + [...] | | | | | | at [facility], [address] | | | | | | [address], | | | | | | [place] [address] | | | | + + + + + + + + | Specimen | + + | Blood specimen | | (specimen) | + + + +---------+ + + | Performing | Address | City/State/Zipcode | Phone Number | | Organization | | | | + +---------+ + + | EXTERNAL LAB | | | | + +---------+ + + Potassium (06/28/2017 12:50 AM PDT) + + + + + + | Component | Value | Ref Range | Performed | Pathologist | | | | | At | Signature | + + + + + + | K | 3.3 (L)Comment: Testing | 3.5 - 4.9 | EXTERNAL | | | | performed at [facility];[address] | mmol/L | LAB | | | | [address];[place], [place] | | | | | | [address] | | | | + + + + + + + + | Specimen | + + | Blood specimen | | (specimen) | + + + +---------+ + + | Performing | Address | City/State/Zipcode | Phone Number | | Organization | | | | + +---------+ + + | EXTERNAL LAB | | | | + +---------+ + + Magnesium (06/28/2017 12:50 AM PDT) + + + + + + | Component | Value | Ref Range | Performed | Pathologist | | | | | At | Signature | + + + + + + | Magnesium | 1.7Comment: Testing | 1.7 - 2.4 mg/dL | EXTERNAL | | | | performed at [facility];[address] | | LAB | | | | [address];[place], [place] | | | | | | [address] | | | | + + + + + + + + | Specimen | + + | Blood specimen | | (specimen) | + + + +---------+ + + | Performing | Address | City/State/Zipcode | Phone Number | | Organization | | | | + +---------+ + + | EXTERNAL LAB | | | | + +---------+ + + POC Glucose (06/27/2017 10:29 PM PDT) + + + + + + | Component | Value | Ref Range | Performed | Pathologist | | | | | At | Signature | + + + + + + | Glucose, | 154 (H)Comment: Testing | 65 - 99 mg/dL | EXTERNAL | | | Fingerstick | performed at [facility];[address] | | LAB | | | | [address];[place], [place] | | | | | | [address] | | | | + + + + + + + + | Specimen | + + | | + + + +---------+ + + | Performing | Address | City/State/Zipcode | Phone Number | | Organization | | | | + +---------+ + + | EXTERNAL LAB | | | | + +---------+ + + POC Glucose (06/27/2017 8:40 PM PDT) + + + + + + | Component | Value | Ref Range | Performed | Pathologist | | | | | At | Signature | + + + + + + | Glucose, | 110 (H)Comment: Testing | 65 - 99 mg/dL | EXTERNAL | | | Fingerstick | performed at [facility] | | LAB | | | | [address];[place] | | | | | | [address] | | | | + + + + + + + + | Specimen | + + | | + + + +---------+ + + | Performing | Address | City/State/Zipcode | Phone Number | | Organization | | | | + +---------+ + + | EXTERNAL LAB | | | | + +---------+ + + POC Glucose (06/27/2017 5:50 PM PDT) + + + + + + | Component | Value | Ref Range | Performed | Pathologist | | | | | At | Signature | + + + + + + | Glucose, | 137 (H)Comment: Testing | 65 - 99 mg/dL | EXTERNAL | | | Fingerstick | performed at [facility];[address] | | LAB | | | | [address];[place] | | | | | | [address] | | | | + + + + + + + + | Specimen | + + | | + + + +---------+ + + | Performing | Address | City/State/Zipcode | Phone Number | | Organization | | | | + +---------+ + + | EXTERNAL LAB | | | | + +---------+ + + POC Glucose (06/27/2017 5:26 PM PDT) + + + + + + | Component | Value | Ref Range | Performed | Pathologist | | | | | At | Signature | + + + + + + | Glucose, | 143 (H)Comment: Testing | 65 - 99 mg/dL | EXTERNAL | | | Fingerstick | performed at [facility];[address] | | LAB | | | | [address];[place] | | | | | | [address] | | | | + + + + + + + + | Specimen | + + | | + + + +---------+ + + | Performing | Address | City/State/Zipcode | Phone Number | | Organization | | | | + +---------+ + + | EXTERNAL LAB | | | | + +---------+ + + Potassium (06/27/2017 4:22 PM PDT) + + + + + + | Component | Value | Ref Range | Performed | Pathologist | | | | | At | Signature | + + + + + + | K | 3.2 (L)Comment: Testing | 3.5 - 4.9 | EXTERNAL | | | | performed at [facility];[address] | mmol/L | LAB | | | | [address];[place], [place] | | | | | | [address] | | | | + + + + + + + + | Specimen | + + | Blood specimen | | (specimen) | + + + +---------+ + + | Performing | Address | City/State/Zipcode | Phone Number | | Organization | | | | + +---------+ + + | EXTERNAL LAB | | | | + +---------+ + + POC Glucose (06/27/2017 3:21 PM PDT) + + + + + + | Component | Value | Ref Range | Performed | Pathologist | | | | | At | Signature | + + + + + + | Glucose, | 120 (H)Comment: Testing | 65 - 99 mg/dL | EXTERNAL | | | Fingerstick | performed at [facility];[address] | | LAB | | | | [address];[place] | | | | | | [address] | | | | + + + + + + + + | Specimen | + + | | + + + +---------+ + + | Performing | Address | City/State/Zipcode | Phone Number | | Organization | | | | + +---------+ + + | EXTERNAL LAB | | | | + +---------+ + + POC Glucose (06/27/2017 1:15 PM PDT) + + + + + + | Component | Value | Ref Range | Performed | Pathologist | | | | | At | Signature | + + + + + + | Glucose, | 132 (H)Comment: Testing | 65 - 99 mg/dL | EXTERNAL | | | Fingerstick | performed at [facility];[address] | | LAB | | | | [address];[place], [place] | | | | | | [address] | | | | + + + + + + + + | Specimen | + + | | + + + +---------+ + + | Performing | Address | City/State/Zipcode | Phone Number | | Organization | | | | + +---------+ + + | EXTERNAL LAB | | | | + +---------+ + + Echo Limited (06/27/2017 11:21 AM PDT) + + | Specimen | + + | | + + + + + | Impressions | Performed At | + + + | 1. The left ventricle is normal in size and systolic function EF | | | 65-70%. 2. There is no pericardial effusion. | | + + + + + + | Narrative | Performed At | + + + | Patient Name: NANCY TERRAZAS Date of : 1970 | | | Performing Physician: Scott Orantes | | | | | | INDICATIONS Shortness of breath CONCLUSIONS | | | 1. The left ventricle is normal in size and systolic | | | function EF 65-70%. 2. There is no pericardial effusion. FINDINGS | | | -------- ECG rhythm: Sinus rhythm. Study: A limited 2-dimensional | | | transthoracic echocardiogram with limited spectral and color flow | | | Doppler was performed. Patient supine. Study: This was a | | | technically adequate study. Left Ventricle: Overall left ventricular | | | systolic function is normal with, an EF between 65 - 70 %. Left | | | Ventricle: The left ventricle cavity size is normal. Left Ventricle: | | | No regional wall motion abnormalities. Right Ventricle: The right | | | ventricle is mildly enlarged measuring between 3.4 - 3.7 cm. Right | | | Ventricle: The right ventricular systolic function is normal. Aortic | | | Valve: The aortic valve is trileaflet. Mitral Valve: The mitral valve | | | is normal. Tricuspid Valve: The tricuspid valve appears structurally | | | normal. Pericardium: There is no pericardial effusion. Pericardium: | | | No pleural effusion seen. MEASUREMENTS | | | EDV(Teich): 143.05 ml IVSd: 1.08 cm LVIDd: 5.42 cm LVPWd: | | | 1.08 cm %FS: 48.46 % EF(Teich): 79.38 % ESV(Teich): | | | 29.49 ml IVSs: 1.51 cm LVIDs: 2.79 cm LVPWs: 1.77 cm | | | SV(Teich): 113.56 ml Television Engineer: Authenticated by: Scott | | | [place] Report Date/Time: 06-27-2017 13:21:47 | | + + + + + | Procedure Note | + + | Meir, Rad Conversion - 10/15/2018 11:00 AM PDT Patient Name: Lopez TERRAZAS of | | : 1970 Performing Physician: Scott | | Lamberto INDICATIONS------ | | -----Shortness of breath CONCLUSIONS 1. The left ventricle is normal in size | | and systolic function EF 65-70%.2. There is no pericardial effusion. FINDINGS--------ECG | | rhythm: Sinus rhythm.Study: A limited 2-dimensional transthoracic echocardiogram with | | limited spectral and color flow Doppler was performed. Patient supine.Study: This was a | | technically adequate study.Left Ventricle: Overall left ventricular systolic function | | is normal with, an EF between 65 - 70 %.Left Ventricle: The left ventricle cavity size | | is normal.Left Ventricle: No regional wall motion abnormalities.Right Ventricle: The | | right ventricle is mildly enlarged measuring between 3.4 - 3.7 cm.Right Ventricle: The | | right ventricular systolic function is normal.Aortic Valve: The aortic valve is | | trileaflet.Mitral Valve: The mitral valve is normal.Tricuspid Valve: The tricuspid valve | | appears structurally normal.Pericardium: There is no pericardial effusion.Pericardium: | | No pleural effusion seen. MEASUREMENTS EDV(Teich): 143.05 mlIVSd: 1.08 | | cmLVIDd: 5.42 cmLVPWd: 1.08 cm%FS: 48.46 %EF(Teich): 79.38 %ESV(Teich): 29.49 | | mlIVSs: 1.51 cmLVIDs: 2.79 cmLVPWs: 1.77 cmSV(Teich): 113.56 ml Television Engineer: | | JRAuthenticated by: Scott OrantesReport Date/Time: 06-27-2017 13:21:47 IMPRESSION: 1. | | The left ventricle is normal in size and systolic function EF 65-70%.2. There is no | | pericardial effusion. | |Study: A limited 2-dimensional transthoracic echocardiogram with limited spectral and color flow Doppler was performed. Patient supine. | |Study: This was a technically adequate study. | |Left Ventricle: Overall left ventricular systolic function is normal with, an EF between 65 - 70 %. | |Left Ventricle: The left ventricle cavity size is normal. | |Left Ventricle: No regional wall motion abnormalities. | |Right Ventricle: The right ventricle is mildly enlarged measuring between 3.4 - 3.7 cm. | |Right Ventricle: The right ventricular systolic function is normal. | |Aortic Valve: The aortic valve is trileaflet. | |Mitral Valve: The mitral valve is normal. | |Tricuspid Valve: The tricuspid valve appears structurally normal. | |Pericardium: There is no pericardial effusion. | |Pericardium: No pleural effusion seen. | | | |MEASUREMENTS | | | |EDV(Teich): 143.05 ml | |IVSd: 1.08 cm | |LVIDd: 5.42 cm | |LVPWd: 1.08 cm | |%FS: 48.46 % | |EF(Teich): 79.38 % | |ESV(Teich): 29.49 ml | |IVSs: 1.51 cm | |LVIDs: 2.79 cm | |LVPWs: 1.77 cm | |SV(Teich): 113.56 ml | | | |Television Engineer: JR | |Authenticated by: Scott Orantes | |Report Date/Time: 06-27-2017 13:21:47 | | | |IMPRESSION: | |1. The left ventricle is normal in size and systolic function EF 65-70%. | |2. There is no pericardial effusion. | + + POC Glucose (06/27/2017 11:10 AM PDT) + + + + + + | Component | Value | Ref Range | Performed | Pathologist | | | | | At | Signature | + + + + + + | Glucose, | 123 (H)Comment: Testing | 65 - 99 mg/dL | EXTERNAL | | | Fingerstick | performed at [facility];[address] | | LAB | | | | [address];[place] | | | | | | [address] | | | | + + + + + + + + | Specimen | + + | | + + + +---------+ + + | Performing | Address | City/State/Zipcode | Phone Number | | Organization | | | | + +---------+ + + | EXTERNAL LAB | | | | + +---------+ + + POC Glucose (06/27/2017 10:05 AM PDT) + + + + + + | Component | Value | Ref Range | Performed | Pathologist | | | | | At | Signature | + + + + + + | Glucose, | 125 (H)Comment: Testing | 65 - 99 mg/dL | EXTERNAL | | | Fingerstick | performed at [facility];[address] | | LAB | | | | [address];[place], [place] | | | | | | [address] | | | | + + + + + + + + | Specimen | + + | | + + + +---------+ + + | Performing | Address | City/State/Zipcode | Phone Number | | Organization | | | | + +---------+ + + | EXTERNAL LAB | | | | + +---------+ + + POC Glucose (06/27/2017 9:02 AM PDT) + + + + + + | Component | Value | Ref Range | Performed | Pathologist | | | | | At | Signature | + + + + + + | Glucose, | 131 (H)Comment: Testing | 65 - 99 mg/dL | EXTERNAL | | | Fingerstick | performed at [facility];[address] | | LAB | | | | [address];[place] | | | | | | [address] | | | | + + + + + + + + | Specimen | + + | | + + + +---------+ + + | Performing | Address | City/State/Zipcode | Phone Number | | Organization | | | | + +---------+ + + | EXTERNAL LAB | | | | + +---------+ + + ECG 12 lead (06/27/2017 8:13 AM PDT) + + + + + + | Component | Value | Ref Range | Performed | Pathologist | | | | | At | Signature | + + + + + + | DIAGNOSIS: | Normal sinus | | EXTERNAL | | | | rhythmCannot rule out | | LAB | | | | Inferior infarct (cited | | | | | | on or before | | | | | | 25-JUN-2017)Anterior | | | | | | infarct , age | | | | | | undeterminedAbnormal | | | | | | ECGWhen compared with | | | | | | ECG of 26-JUN-2017 | | | | | | 08:06,Vent. rate has | | | | | | decreased BY 34 | | | | | | BPMConfirmed by ALEAH | | | | | | ABEL ([id number]) on 06/27/2017 | | | | | | 11:32:17 AM | | | | + + + + + + + + | Specimen | + + | | + + + + + | Narrative | Performed At | + + + | Historically converted procedure from [facility] Epic environment | EXTERNAL LAB | + + + + +---------+ + + | Performing | Address | City/State/Zipcode | Phone Number | | Organization | | | | + +---------+ + + | EXTERNAL LAB | | | | + +---------+ + + POC Glucose (06/27/2017 7:45 AM PDT) + + + + + + | Component | Value | Ref Range | Performed | Pathologist | | | | | At | Signature | + + + + + + | Glucose, | 177 (H)Comment: Testing | 65 - 99 mg/dL | EXTERNAL | | | Fingerstick | performed at [facility];[address] | | LAB | | | | [address];[place] | | | | | | [address] | | | | + + + + + + + + | Specimen | + + | | + + + +---------+ + + | Performing | Address | City/State/Zipcode | Phone Number | | Organization | | | | + +---------+ + + | EXTERNAL LAB | | | | + +---------+ + + XR Chest 1 Vw (06/27/2017 6:06 AM PDT) + + | Specimen | + + | | + + + + + | Impressions | Performed At | + + + | 1. Tubes and lines in expected position. 2. Left apical | | | pneumothorax similar to the prior exams allowing for variation in | | | projection angle. Electronically signed by Augie Rodrigez MD on | | | 06/27/2017 7:32 AM | | + + + + + + | Narrative | Performed At | + + + | NANCY TERRAZAS 1970 46 years XR CHEST 1 VIEW 06/27/2017 | | | 6:06 AM INDICATION: Tube and line position. COMPARISON: June | | | 2017 TECHNIQUE: Chest 1 view, AP view of the chest | | | FINDINGS: Endotracheal tube 4.1 cm above the viraj. Enteric tube | | | passing below the level of the diaphragm. Left internal jugular | | | central venous catheter within the proximal right atrium. Enteric tube | | | passing below the level of diaphragm. Bilateral patchy airspace | | | disease consistent with pulmonary edema or infection. No | | | pneumothorax. Small left apical pneumothorax, similar to prior exams | | | allowing for variation in projection angle. Left basilar | | | atelectasis. | | + + + + + | Procedure Note | + + | Ross Worley - 10/15/2018 11:00 AM ROGE [id number] yearsXR | | CHEST 1 VIEW06/27/2017 6:06 AM INDICATION: Tube and line position. COMPARISON: June 26 | | 2017 TECHNIQUE: Chest 1 view, AP view of the chest FINDINGS:Endotracheal tube 4.1 cm | | above the viraj. Enteric tube passing below the level of the diaphragm. Left internal | | jugular central venous catheter within the proximal right atrium. Enteric tube passing | | below the level of diaphragm. Bilateral patchy airspace disease consistent with | | pulmonary edema or infection. No pneumothorax. Small left apical pneumothorax, similar | | to prior exams allowing for variation in projection angle. Left basilar atelectasis. | | IMPRESSION: 1. Tubes and lines in expected position.2. Left apical pneumothorax similar | | to the prior exams allowing for variation in projection angle. | | | |FINDINGS: | |Endotracheal tube 4.1 cm above the viraj. Enteric tube passing below the level of the diap hragm. Left internal jugular central venous catheter within the proximal right atrium. Enter ic tube passing below the level of diaphragm. | | | |Bilateral patchy airspace disease consistent with pulmonary edema or infection. | | | |No pneumothorax. Small left apical pneumothorax, similar to prior exams allowing for variat ion in projection angle. | | | |Left basilar atelectasis. | | | |IMPRESSION: | |1. Tubes and lines in expected position. | |2. Left apical pneumothorax similar to the prior exams allowing for variation in projection angle. | | | | | + + POC Glucose (06/27/2017 5:50 AM PDT) + + + + + + | Component | Value | Ref Range | Performed | Pathologist | | | | | At | Signature | + + + + + + | Glucose, | 130 (H)Comment: Testing | 65 - 99 mg/dL | EXTERNAL | | | Fingerstick | performed at [facility];[address] | | LAB | | | | [address];[place] | | | | | | [address] | | | | + + + + + + + + | Specimen | + + | | + + + +---------+ + + | Performing | Address | City/State/Zipcode | Phone Number | | Organization | | | | + +---------+ + + | EXTERNAL LAB | | | | + +---------+ + + POC Glucose (06/27/2017 3:47 AM PDT) + + + + + + | Component | Value | Ref Range | Performed | Pathologist | | | | | At | Signature | + + + + + + | Glucose, | 147 (H)Comment: Testing | 65 - 99 mg/dL | EXTERNAL | | | Fingerstick | performed at [facility];[address] | | LAB | | | | [address];[place] | | | | | | [address] | | | | + + + + + + + + | Specimen | + + | | + + + +---------+ + + | Performing | Address | City/State/Zipcode | Phone Number | | Organization | | | | + +---------+ + + | EXTERNAL LAB | | | | + +---------+ + + External Lab: CBC (06/27/2017 3:45 AM PDT) + + + + + + | Component | Value | Ref Range | Performed | Pathologist | | | | | At | Signature | + + + + + + | WBC | 19.42 (H) | 3.80 - 11.00 | EXTERNAL | | | | | K/uL | LAB | | + + + + + + | Non- | 2.95 (L) | 3.70 - 5.10 | EXTERNAL | | | Red Blood | | M/uL | LAB | | | Cells | | | | | | Counted | | | | | + + + + + + | Hemoglobin | 8.9 (L) | 11.3 - 15.5 | EXTERNAL | | | | | g/dL | LAB | | + + + + + + | Hematocrit, | 26.0 (L) | 34.0 - 46.0 % | EXTERNAL | | | POC | | | LAB | | + + + + + + | MCV | 88.1 | 80.0 - 100.0 fl | EXTERNAL | | | | | | LAB | | + + + + + + | MCH | 30.3 | 27.0 - 34.0 pg | EXTERNAL | | | | | | LAB | | + + + + + + | MCHC | 34.4 | 32.0 - 35.5 | EXTERNAL | | | | | g/dL | LAB | | + + + + + + | RDW-CV | 42.9 | 37 - 53 fl | EXTERNAL | | | | | | LAB | | + + + + + + | Platelet | 404 (H) | 150 - 400 K/uL | EXTERNAL | | | Count | | | LAB | | | Plasma | | | | | + + + + + + | MPV | 8.6 | fl | EXTERNAL | | | | | | LAB | | + + + + + + | Differentia | AUTOMATED | | EXTERNAL | | | l Type | | | LAB | | + + + + + + | % Segmented | 69.49 | % | EXTERNAL | | | | | | LAB | | | Neutrophils | | | | | + + + + + + | % | 17.43 | % | EXTERNAL | | | Lymphocytes | | | LAB | | + + + + + + | % Monocytes | 8.64 | % | EXTERNAL | | | | | | LAB | | + + + + + + | % | 3.80 | % | EXTERNAL | | | Eosinophils | | | LAB | | + + + + + + | % Basophils | 0.64 | % | EXTERNAL | | | | | | LAB | | + + + + + + | Absolute | 13.50 (H) | 1.90 - 7.40 | EXTERNAL | | | Segmented | | K/uL | LAB | | | Neutrophils | | | | | + + + + + + | Absolute | 3.38 | 1.00 - 3.90 | EXTERNAL | | | Lymphocytes | | K/uL | LAB | | + + + + + + | Absolute | 1.68 (H) | 0.00 - 0.80 | EXTERNAL | | | Monocytes | | K/uL | LAB | | + + + + + + | Absolute | 0.74 (H) | 0.00 - 0.50 | EXTERNAL | | | Eosinophils | | K/uL | LAB | | + + + + + + | Absolute | 0.12 (H)Comment: Testing | 0.00 - 0.10 | EXTERNAL | | | Basophils | performed at [facility], [address] | LAB | | | | [address], | | | | | | [place] [address] | | | | + + + + + + + + | Specimen | + + | Blood specimen | | (specimen) | + + + +---------+ + + | Performing | Address | City/State/Zipcode | Phone Number | | Organization | | | | + +---------+ + + | EXTERNAL LAB | | | | + +---------+ + + Phosphorus (06/27/2017 3:45 AM PDT) + + + + + + | Component | Value | Ref Range | Performed | Pathologist | | | | | At | Signature | + + + + + + | PHOSPHORUS | 2.3Comment: Testing | 2.3 - 4.8 mg/dL | EXTERNAL | | | | performed at [facility], [address] | | LAB | | | | [address], | | | | | | [place] [id number] | | | | + + + + + + + + | Specimen | + + | Blood specimen | | (specimen) | + + + +---------+ + + | Performing | Address | City/State/Zipcode | Phone Number | | Organization | | | | + +---------+ + + | EXTERNAL LAB | | | | + +---------+ + + Magnesium (06/27/2017 3:45 AM PDT) + + + + + + | Component | Value | Ref Range | Performed | Pathologist | | | | | At | Signature | + + + + + + | Magnesium | 2.1Comment: Testing | 1.7 - 2.4 mg/dL | EXTERNAL | | | | performed at [facility], [address] | | LAB | | | | [address], | | | | | | [place] [address] | | | | + + + + + + + + | Specimen | + + | Blood specimen | | (specimen) | + + + +---------+ + + | Performing | Address | City/State/Zipcode | Phone Number | | Organization | | | | + +---------+ + + | EXTERNAL LAB | | | | + +---------+ + + Hemoglobin A1C (06/27/2017 3:45 AM PDT) + + + + + + | Component | Value | Ref Range | Performed | Pathologist | | | | | At | Signature | + + + + + + | Hemoglobin | 9.2 (H)Comment: The | 4.0 - 6.0 % | EXTERNAL | | | A1c | [employer] [employer] | | LAB | | | [...] | | | | | | reference method. | | | | + + + + + + | Glycohemogl | 217Comment: The ADA | mg/dL | EXTERNAL | [...] | | | | | performed at [facility], [address] | | | | | | [facility], | | | | | | [place] [address] | | | | + + + + + + + + | Specimen | + + | Blood specimen | | (specimen) | + + + +---------+ + + | Performing | Address | City/State/Zipcode | Phone Number | | Organization | | | | + +---------+ + + | EXTERNAL LAB | | | | + +---------+ + + Basic Metabolic Panel (06/27/2017 3:45 AM PDT) + + + + + + | Component | Value | Ref Range | Performed | Pathologist | | | | | At | Signature | + + + + + + | Na | 142 | 135 - 145 | EXTERNAL | | | | | mmol/L | LAB | | + + + + + + | K | 3.3 (L) | 3.5 - 4.9 | EXTERNAL | | | | | mmol/L | LAB | | + + + + + + | Cl | 106 | 99 - 109 mmol/L | EXTERNAL | | | | | | LAB | | + + + + + + | CO2 | 29 | 23 - 32 mmol/L | EXTERNAL | | | | | | LAB | | + + + + + + | Anion Gap | 10 | 5 - 20 mmol/L | EXTERNAL | | | | | | LAB | | + + + + + + | Glucose, | 131 (H) | 65 - 99 mg/dL | EXTERNAL | | | Fasting | | | LAB | | + + + + + + | BUN | 16 | 8 - 25 mg/dL | EXTERNAL | | | | | | LAB | | + + + + + + | Creatinine | 0.5 | 0.50 - 1.00 | EXTERNAL | | | | | mg/dL | LAB | | + + + + + + | BUN/Creatin | 32 | | EXTERNAL | | | ine Ratio | | | LAB | | + + + + + + | Calcium | 8.6 | 8.5 - 10.5 | EXTERNAL | | | | | mg/dL | LAB | | + + + [...] | | | | | | at [facility], [address] | | | | | | [facility], | | | | | | [place] [address] | | | | + + + + + + + + | Specimen | + + | Blood specimen | | (specimen) | + + + +---------+ + + | Performing | Address | City/State/Zipcode | Phone Number | | Organization | | | | + +---------+ + + | EXTERNAL LAB | | | | + +---------+ + + POC Glucose (06/27/2017 1:29 AM PDT) + + + + + + | Component | Value | Ref Range | Performed | Pathologist | | | | | At | Signature | + + + + + + | Glucose, | 142 (H)Comment: Testing | 65 - 99 mg/dL | EXTERNAL | | | Fingerstick | performed at [facility];[address] | | LAB | | | | [address];[place] | | | | | | [address] | | | | + + + + + + + + | Specimen | + + | | + + + +---------+ + + | Performing | Address | City/State/Zipcode | Phone Number | | Organization | | | | + +---------+ + + | EXTERNAL LAB | | | | + +---------+ + + POC Glucose (06/26/2017 11:26 PM PDT) + + + + + + | Component | Value | Ref Range | Performed | Pathologist | | | | | At | Signature | + + + + + + | Glucose, | 157 (H)Comment: Testing | 65 - 99 mg/dL | EXTERNAL | | | Fingerstick | performed at [facility];[address] | | LAB | | | [address];[place], [place] | | | | | | [address] | | | | + + + + + + + + | Specimen | + + | | + + + +---------+ + + | Performing | Address | City/State/Zipcode | Phone Number | | Organization | | | | + +---------+ + + | EXTERNAL LAB | | | | + +---------+ + + XR Chest 1 Vw (06/26/2017 10:16 PM PDT) + + | Specimen | + + | | + + + + + | Impressions | Performed At | + + + | 1. Life-support devices as reported above. 2. Progressive | | | decrease in size of the left apical pneumothorax 3. Interval | | | improvement in the bilateral interstitial and airspace opacities edema | | | versus infiltrate. | | + + + + + + | Narrative | Performed At | + + + | NANCY TERRAZAS XR CHEST 1 VIEW 06/26/2017 10:16 PM History: | | | 46 years. Female. Critical care unit patient with respiratory | | | failure Technique: AP supine portable view of the chest at 2210 | | | hours. Compared to 1203 hours earlier today. Findings: The | | | endotracheal tube tip is 2.7 cm above the level of the viraj. | | | Nasogastric tube extends below the diaphragm and below the inferior | | | margin of the image. A central venous catheter enters from the left | | | neck region and tip is at the atriocaval junction. Small left apical | | | pneumothorax appears decreased in size compared to the prior | | | examination. Mild cardiomegaly again noted. There has been slight | | | interval improvement in the diffuse bilateral interstitial and | | | airspace densities. | | + + + + + | Procedure Note | + + | Meir, Rad Conversion - 10/15/2018 11:00 AM PDT NANCY NOBLE CHEST 1 | | VIEW06/26/2017 10:16 PM History: 46 years. Female. Critical care unit patient with | | respiratory failure Technique: AP supine portable view of the chest at 2210 hours. | | Compared to 1203 hours earlier today. Findings: The endotracheal tube tip is 2.7 cm | | above the level of the viraj. Nasogastric tube extends below the diaphragm and below | | the inferior margin of the image. A central venous catheter enters from the left neck | | region and tip is at the atriocaval junction. Small left apical pneumothorax appears | | decreased in size compared to the prior examination.Mild cardiomegaly again noted. There | | has been slight interval improvement in the diffuse bilateral interstitial and airspace | | densities. IMPRESSION: 1. Life-support devices as reported above.2. Progressive | | decrease in size of the left apical pneumothorax3. Interval improvement in the | | bilateral interstitial and airspace opacities edema versus infiltrate. Electronically | | signed by Aurelio Espinal MD on 06/26/2017 10:20 PM | |IMPRESSION: | |1. Life-support devices as reported above. | |2. Progressive decrease in size of the left apical pneumothorax | |3. Interval improvement in the bilateral interstitial and airspace opacities edema versus infiltrate. | | | | | + + POC Glucose (06/26/2017 9:22 PM PDT) + + + + + + | Component | Value | Ref Range | Performed | Pathologist | | | | | At | Signature | + + + + + + | Glucose, | 123 (H)Comment: Testing | 65 - 99 mg/dL | EXTERNAL | | | Fingerstick | performed at [facility];[address] | | LAB | | | | [address];[place] | | | | | | [address] | | | | + + + + + + + + | Specimen | + + | | + + + +---------+ + + | Performing | Address | City/State/Zipcode | Phone Number | | Organization | | | | + +---------+ + + | EXTERNAL LAB | | | | + +---------+ + + POC Glucose (06/26/2017 6:51 PM PDT) + + + + + + | Component | Value | Ref Range | Performed | Pathologist | | | | | At | Signature | + + + + + + | Glucose, | 155 (H)Comment: Testing | 65 - 99 mg/dL | EXTERNAL | | | Fingerstick | performed at [facility];[address] | | LAB | | | [address];[place] | | | | | | [address] | | | | + + + + + + + + | Specimen | + + | | + + + +---------+ + + | Performing | Address | City/State/Zipcode | Phone Number | | Organization | | | | + +---------+ + + | EXTERNAL LAB | | | | + +---------+ + + Procalcitonin (06/26/2017 6:20 PM PDT) + + + + + + | Component | Value | Ref Range | Performed | Pathologist | | | | | At | Signature | + + + + + + | PROCALCITON | 0.64 (H)Comment: | ng/mL | EXTERNAL | | | IN | INTERPRETIVE | | LAB | | | | INFORMATION: | | | | | | PROCALCITONIN PCT <= | | | | | | 0.5 ng/mL: Low risk | | | | | | for progression to | | | | | | severe systemic | | | | | | bacterial infection | | | | | | (severe sepsis/septic | | | | | | shock). Does not | | | | | | exclude an infection, | | | | | | because localized | | | | | | infections may be | | | | | | associated with such low | | | | | | levels. If PCT is | | | | | | measured very early | | | | | | after bacterial | | | | | | challenge (usually <6 | | | | | | hours), results may | | | | | | still be low and | | | | | | should re-assess PCT | | | | | | 6-24 hours later. PCT | | | | | | >0.5 and <= 2 ng/mL: | | | | | | Moderate risk for | | | | | | progression to severe | | | | | | systemic infection | | | | | | (severe sepsis/septic | | | | | | shock). Other | | | | | | conditions are known | | | | | | to elevate PCT, patient | | | | | | should be closely | | | | | | monitored both | | | | | | clinically and by | | | | | | re-assessing PCT | | | | | | within 6-24 hours. PCT > | | | | | | 2 ng/mL: High | | | | | | likelihood for | | | | | | progression to severe | | | | | | systemic bacterial | | | | | | infection (severe | | | | | | sepsis/septic shock). | | | | | | PCT >= 10 ng/mL: | | | | | | High likelihood of | | | | | | severe sepsis or septic | | | | | | shock.Testing performed | | | | | | at [facility];[address] [place] [address] | | | | | | [facility];[place] [address] | | | | + + + + + + + + | Specimen | + + | | + + + +---------+ + + | Performing | Address | City/State/Zipcode | Phone Number | | Organization | | | | + +---------+ + + | EXTERNAL LAB | | | | + +---------+ + + External Lab: SUSAN (06/26/2017 6:20 PM PDT) + + + + + + | Component | Value | Ref Range | Performed | Pathologist | | | | | At | Signature | + + + + + + | WBC | 15.60 (H) | 3.80 - 11.00 | EXTERNAL | | | | | K/uL | LAB | | + + + + + + | Non- | 3.04 (L) | 3.70 - 5.10 | EXTERNAL | | | Red Blood | | M/uL | LAB | | | Cells | | | | | | Counted | | | | | + + + + + + | Hemoglobin | 8.7 (L) | 11.3 - 15.5 | EXTERNAL | | | | | g/dL | LAB | | + + + + + + | Hematocrit, | 27.0 (L) | 34.0 - 46.0 % | EXTERNAL | | | POC | | | LAB | | + + + + + + | MCV | 88.6 | 80.0 - 100.0 fl | EXTERNAL | | | | | | LAB | | + + + + + + | MCH | 28.6 | 27.0 - 34.0 pg | EXTERNAL | | | | | | LAB | | + + + + + + | MCHC | 32.3 | 32.0 - 35.5 | EXTERNAL | | | | | g/dL | LAB | | + + + + + + | RDW-CV | 44.2 | 37 - 53 fl | EXTERNAL | | | | | | LAB | | + + + + + + | Platelet | 300 | 150 - 400 K/uL | EXTERNAL | | | Count | | | LAB | | | Plasma | | | | | + + + + + + | MPV | 8.8 | fl | EXTERNAL | | | | | | LAB | | + + + + + + | Differentia | AUTOMATED | | EXTERNAL | | | l Type | | | LAB | | + + + + + + | % Segmented | 76.34 | % | EXTERNAL | | | | | | LAB | | | Neutrophils | | | | | + + + + + + | % | 12.93 | % | EXTERNAL | | | Lymphocytes | | | LAB | | + + + + + + | % Monocytes | 7.88 | % | EXTERNAL | | | | | | LAB | | + + + + + + | % | 2.51 | % | EXTERNAL | | | Eosinophils | | | LAB | | + + + + + + | % Basophils | 0.34 | % | EXTERNAL | | | | | | LAB | | + + + + + + | Absolute | 11.91 (H) | 1.90 - 7.40 | EXTERNAL | | | Segmented | | K/uL | LAB | | | Neutrophils | | | | | + + + + + + | Absolute | 2.02 | 1.00 - 3.90 | EXTERNAL | | | Lymphocytes | | K/uL | LAB | | + + + + + + | Absolute | 1.23 (H) | 0.00 - 0.80 | EXTERNAL | | | Monocytes | | K/uL | LAB | | + + + + + + | Absolute | 0.39 | 0.00 - 0.50 | EXTERNAL | | | Eosinophils | | K/uL | LAB | | + + + + + + | Absolute | 0.05Comment: Testing | 0.00 - 0.10 | EXTERNAL | | | Basophils | performed at [facility];[address] | [address] | LAB | | | | [address];[place], [place] | | | | | | [address] | | | | + + + + + + + + | Specimen | + + | Blood specimen | | (specimen) | + + + +---------+ + + | Performing | Address | City/State/Zipcode | Phone Number | | Organization | | | | + +---------+ + + | EXTERNAL LAB | | | | + +---------+ + + Culture, Blood, 2nd Specimen (06/26/2017 6:12 PM PDT) + + | Specimen | + + | Blood specimen | | (specimen) | + + + + + | Narrative | Performed At | + + + | Specimen Description BLOOD, PERIPHERAL DRAW | EXTERNAL LAB | | SPECIAL REQUESTS RIGHT HAND CULTURE | | | NO GROWTH 6 DAYS | | + + + + +---------+ + + | Performing | Address | City/State/Zipcode | Phone Number | | Organization | | | | + +---------+ + + | EXTERNAL LAB | | | | + +---------+ + + Culture, Blood (06/26/2017 6:05 PM PDT) + + | Specimen | + + | Blood specimen | | (specimen) | + + + + + | Narrative | Performed At | + + + | Specimen Description BLOOD, PERIPHERAL DRAW | EXTERNAL LAB | | SPECIAL REQUESTS LEFT HAND CULTURE | | | NO GROWTH 6 DAYS | | + + + + +---------+ + + | Performing | Address | City/State/Zipcode | Phone Number | | Organization | | | | + +---------+ + + | EXTERNAL LAB | | | | + +---------+ + + Gram Stain, reflex Sputum Culture (06/26/2017 6:00 PM PDT) + + | Specimen | + + | Body fluid sample | | (specimen) | + + + + + | Narrative | Performed At | + + + | Specimen Description TRACHEAL ASPIRATE GRAM | EXTERNAL LAB | | STAIN GREATER THAN 10 WBCS/LPF | | | LESS THAN 10 | | | SEC/LPF NO | | | ORGANISMS SEEN CULTURE NO | | | GROWTH 2 DAYS | | + + + + +---------+ + + | Performing | Address | City/State/Zipcode | Phone Number | | Organization | | | | + +---------+ + + | EXTERNAL LAB | | | | + +---------+ + + POC Glucose (06/26/2017 5:23 PM PDT) + + + + + + | Component | Value | Ref Range | Performed | Pathologist | | | | | At | Signature | + + + + + + | Glucose, | 119 (H)Comment: Testing | 65 - 99 mg/dL | EXTERNAL | | | Fingerstick | performed at [facility];[address] | | LAB | | | | [address];[place] | | | | | | [address] | | | | + + + + + + + + | Specimen | + + | | + + + +---------+ + + | Performing | Address | City/State/Zipcode | Phone Number | | Organization | | | | + +---------+ + + | EXTERNAL LAB | | | | + +---------+ + + POC Glucose (06/26/2017 3:16 PM PDT) + + + + + + | Component | Value | Ref Range | Performed | Pathologist | | | | | At | Signature | + + + + + + | Glucose, | 140 (H)Comment: Testing | 65 - 99 mg/dL | EXTERNAL | | | Fingerstick | performed at [facility];[address] | | LAB | | | | [address];[place] | | | | | | [address] | | | | + + + + + + + + | Specimen | + + | | + + + +---------+ + + | Performing | Address | City/State/Zipcode | Phone Number | | Organization | | | | + +---------+ + + | EXTERNAL LAB | | | | + +---------+ + + CK-MB (06/26/2017 3:00 PM PDT) + + + + + + | Component | Value | Ref Range | Performed | Pathologist | | | | | At | Signature | + + + + + + | CK-MB | <1.0 | 0.5 - 3.6 ng/mL | EXTERNAL | | | | | | LAB | | + + + + + + | CK-MB Index | UNABLE TO | | EXTERNAL | | | | CALCULATEComment: | | LAB | | | | Testing performed at | | | | | | [facility];[address] | | | | | [address];[place] [address] | | | | + + + + + + + + | Specimen | + + | Blood specimen | | (specimen) | + + + +---------+ + + | Performing | Address | City/State/Zipcode | Phone Number | | Organization | | | | + +---------+ + + | EXTERNAL LAB | | | | + +---------+ + + Troponin I (06/26/2017 3:00 PM PDT) + + + + + + | Component | Value | Ref Range | Performed | Pathologist | | | | | At | Signature | + + + + + + | Troponin I, | 0.367 (H)Comment: 0.00 | 0.00 - 0.10 | EXTERNAL | | | Qual | to 0.10 CONSISTENT | ng/mL | LAB | | | | WITH NORMAL | | | | | | POPULATION0.11 to 0.60 | | | | | | CONSISTENT WITH | | | | | | INCREASED RISK FOR | | | | | | ADVERSE OUTCOMES> 0.60 | | | | | | CONSISTENT | | | | | | WITH WHO CRITERIA FOR | | | | | | ACUTE NM Testing | | | | | | performed at [facility];[address] | | | | | | [address];[place], [place] | | | | | | [address] | | | | + + + + + + + + | Specimen | + + | Blood specimen | | (specimen) | + + + +---------+ + + | Performing | Address | City/State/Zipcode | Phone Number | | Organization | | | | + +---------+ + + | EXTERNAL LAB | | | | + +---------+ + + Lipase (06/26/2017 3:00 PM PDT) + + + + + + | Component | Value | Ref Range | Performed | Pathologist | | | | | At | Signature | + + + + + + | Lipase | 51 (L)Comment: Testing | 73 - 393 U/L | EXTERNAL | | | | performed at [facility];[address] | | LAB | | | | [address];[place] | | | | | | [address] | | | | + + + + + + + + | Specimen | + + | Blood specimen | | (specimen) | + + + +---------+ + + | Performing | Address | City/State/Zipcode | Phone Number | | Organization | | | | + +---------+ + + | EXTERNAL LAB | | | | + +---------+ + + CK Total (06/26/2017 3:00 PM PDT) + + + + + + | Component | Value | Ref Range | Performed | Pathologist | | | | | At | Signature | + + + + + + | CK, Total | 62Comment: Testing | 30 - 240 U/L | EXTERNAL | | | | performed at [facility];[address] | | LAB | | | | [address];[place], [place] | | | | | | [address] | | | | + + + + + + + + | Specimen | + + | Blood specimen | | (specimen) | + + + +---------+ + + | Performing | Address | City/State/Zipcode | Phone Number | | Organization | | | | + +---------+ + + | EXTERNAL LAB | | | | + +---------+ + + POC Glucose (06/26/2017 2:10 PM PDT) + + + + + + | Component | Value | Ref Range | Performed | Pathologist | | | | | At | Signature | + + + + + + | Glucose, | 151 (H)Comment: Testing | 65 - 99 mg/dL | EXTERNAL | | | Fingerstick | performed at [facility];[address] | | LAB | | | | [address];[place] | | | | | | [address] | | | | + + + + + + + + | Specimen | + + | | + + + +---------+ + + | Performing | Address | City/State/Zipcode | Phone Number | | Organization | | | | + +---------+ + + | EXTERNAL LAB | | | | + +---------+ + + POC Glucose (06/26/2017 12:51 PM PDT) + + + + + + | Component | Value | Ref Range | Performed | Pathologist | | | | | At | Signature | + + + + + + | Glucose, | 159 (H)Comment: Testing | 65 - 99 mg/dL | EXTERNAL | | | Fingerstick | performed at [facility];[address] | | LAB | | | | [address];[place], [place] | | | | | | [address] | | | | + + + + + + + + | Specimen | + + | | + + + +---------+ + + | Performing | Address | City/State/Zipcode | Phone Number | | Organization | | | | + +---------+ + + | EXTERNAL LAB | | | | + +---------+ + + XR Chest 1 Vw (06/26/2017 12:10 PM PDT) + + | Specimen | + + | | + + + + + | Impressions | Performed At | + + + | 1. Smaller left apical pneumothorax, as above. This was relayed to | | | the requesting health care provider on the date and time of | | | dictation. 2. Unchanged left support lines and tubes, as above. | | | 3. Unchanged evidence of left upper lobectomy. 4. | | | Unchanged nonspecific bilateral airspace disease, somewhat diffuse. | | | | | + + + + + + | Narrative | Performed At | + + + | NANCY HAMMONDI XR CHEST 1 VIEW 06/26/2017 12:10 PM HISTORY: | | | Follow-up on left pneumothorax. Status post left upper lobectomy. | | | History of biopsy of a cavitary lesion in the left lung. | | | TECHNIQUE: AP view of the chest. COMPARISON: Chest radiographs, | | | most recent June 26, 2017. FINDINGS: The left apical | | | pneumothorax is smaller currently 13 mm previously 19 mm. Volume loss | | | is again seen in the left hemithorax consistent with left upper | | | lobectomy. Patchy airspace disease is again seen involving both lungs, | | | relatively unchanged. The cardiac silhouette remains at the upper | | | limits of normal in size for a low lung volume AP image. No | | | significant pleural fluid collection is found. The endotracheal tube | | | remains well-positioned. An enteric tube again courses through the | | | stomach and off the film inferiorly. | | + + + + + | Procedure Note | + + | Meir, Rad Conversion - 10/15/2018 11:00 AM PDT NANCY NOBLE CHEST 1 | | VIEW06/26/2017 12:10 PM HISTORY:Follow-up on left pneumothorax. Status post left upper | | lobectomy. History of biopsy of a cavitary lesion in the left lung. TECHNIQUE:AP view of | | the chest. COMPARISON:Chest radiographs, most recent June 26, 2017. FINDINGS:The left | | apical pneumothorax is smaller currently 13 mm previously 19 mm. Volume loss is again | | seen in the left hemithorax consistent with left upper lobectomy. Patchy airspace | | disease is again seen involving both lungs, relatively unchanged. The cardiac silhouette | | remains at the upper limits of normal in size for a low lung volume AP image. No | | significant pleural fluid collection is found. The endotracheal tube remains | | well-positioned. An enteric tube again courses through the stomach and off the film | | inferiorly. IMPRESSION: 1. Smaller left apical pneumothorax, as above. This was relayed | | to the requesting health care provider on the date and time of dictation. 2. Unchanged | | left support lines and tubes, as above. 3. Unchanged evidence of left upper lobectomy. | | 4. Unchanged nonspecific bilateral airspace disease, somewhat diffuse. Electronically | | signed by Griffin Begum MD on 06/26/2017 12:14 PM | |lungs, relatively unchanged. The cardiac | | silhouette remains at the upper limits of normal in size for a low lung volume AP image. N o significant pleural fluid collection is found. The endotracheal tube remains well-position ed. An enteric tube again courses | |through the stomach and off the film | |inferiorly. | | | |IMPRESSION: | |1. Smaller left apical pneumothorax, as above. This was relayed to the requesting [facility] provider on the date and time of dictation. | | | |2. Unchanged left support lines and tubes, as above. | | | |3. Unchanged evidence of left upper lobectomy. | | | |4. Unchanged nonspecific bilateral airspace disease, somewhat diffuse. | | | | | + + POC Glucose (06/26/2017 11:42 AM PDT) + + + + + + | Component | Value | Ref Range | Performed | Pathologist | | | | | At | Signature | + + + + + + | Glucose, | 227 (H)Comment: Testing | 65 - 99 mg/dL | EXTERNAL | | | Fingerstick | performed at [facility];[address] | | LAB | | | | [address];[place] | | | | | | [address] | | | | + + + + + + + + | Specimen | + + | | + + + +---------+ + + | Performing | Address | City/State/Zipcode | Phone Number | | Organization | | | | + +---------+ + + | EXTERNAL LAB | | | | + +---------+ + + CK-MB (06/26/2017 8:52 AM PDT) + + + + + -+ | Component | Value | Ref Range | Performed | Pathologist | | | | | At | Signature | + + + + + -+ | CK-MB | 1.8 | 0.5 - 3.6 ng/mL | EXTERNAL | | | | | | LAB | | + + + + + -+ | CK-MB Index | 2.3Comment: CK INDEX | | EXTERNAL | | [...] | + +---------+ + + Troponin I (06/26/2017 8:52 AM PDT) + + + + + + | Component | Value | Ref Range | Performed | Pathologist | | | | | At | Signature | + + + + + + | Troponin I, | 0.415 (H)Comment: 0.00 | 0.00 - 0.10 | EXTERNAL | | | Qual | to 0.10 CONSISTENT | ng/mL | LAB | | | | WITH NORMAL | | | | | | POPULATION0.11 to 0.60 | | | | | | CONSISTENT WITH | | | | | | INCREASED RISK FOR | | | | | | ADVERSE OUTCOMES> 0.60 | | | | | | CONSISTENT | | | | | | WITH WHO CRITERIA FOR | | | | | | ACUTE NM Testing | | | | | | performed at [facility] | | | | | | [address];[place], [place] | | | | | | [address] | | | | + + + + + + + + | Specimen | + + | Blood specimen | | (specimen) | + + + +---------+ + + | Performing | Address | City/State/Zipcode | Phone Number | | Organization | | | | + +---------+ + + | EXTERNAL LAB | | | | + +---------+ + + CK Total (06/26/2017 8:52 AM PDT) + + + + + + | Component | Value | Ref Range | Performed | Pathologist | | | | | At | Signature | + + + + + + | CK, Total | 78Comment: Testing | 30 - 240 U/L | EXTERNAL | | | | performed at [facility];[address] | | LAB | | | | [address];[place] | | | | | | [address] | | | | + + + + + + + + | Specimen | + + | Blood specimen | | (specimen) | + + + +---------+ + + | Performing | Address | City/State/Zipcode | Phone Number | | Organization | | | | + +---------+ + + | EXTERNAL LAB | | | | + +---------+ + + POC Glucose (06/26/2017 8:46 AM PDT) + + + + + + | Component | Value | Ref Range | Performed | Pathologist | | | | | At | Signature | + + + + + + | Glucose, | 238 (H)Comment: Testing | 65 - 99 mg/dL | EXTERNAL | | | Fingerstick | performed at [facility];[address] | | LAB | | | | [address];[place], [place] | | | | | | [address] | | | | + + + + + + + + | Specimen | + + | | + + + +---------+ + + | Performing | Address | City/State/Zipcode | Phone Number | | Organization | | | | + +---------+ + + | EXTERNAL LAB | | | | + +---------+ + + ECG 12 lead (06/26/2017 8:06 AM PDT) + + + + + + | Component | Value | Ref Range | Performed | Pathologist | | | | | At | Signature | + + + + + + | DIAGNOSIS: | Normal sinus | | EXTERNAL | | | | rhythmPossible Inferior | | LAB | | | | infarct (cited on or | | | | | | before | | | | | | 25-JUN-2017)Abnormal | | | | | | ECGWhen compared with | | | | | | ECG of 25-JUN-2017 | | | | | | 21:48,Fusion complexes | | | | | | are no longer PresentQRS | | | | | | duration has | | | | | | decreasedST no longer | | | | | | depressed in Inferior | | | | | | leadsST no longer | | | | | | elevated in Anterior | | | | | | leadsT wave inversion no | | | | | | longer evident in | | | | | | Inferior leadsT wave | | | | | | inversion no longer | | | | | | evident in Anterolateral | | | | | | leadsConfirmed by | | | | | | ABEL BULLARD ([id number]) on | | | | | | 06/26/2017 10:51:51 AM | | | | + + + + + + + + | Specimen | + + | | + + + + + | Narrative | Performed At | + + + | Historically converted procedure from [facility] environment | EXTERNAL LAB | + + + + +---------+ + + | Performing | Address | City/State/Zipcode | Phone Number | | Organization | | | | + +---------+ + + | EXTERNAL LAB | | | | + +---------+ + + XR Chest 1 Vw (06/26/2017 5:54 AM PDT) + + | Specimen | + + | | + + + + + | Impressions | Performed At | + + + | 1. Tubes and lines in expected position. 2. Bilateral unchanged | | | diffuse airspace disease, consistent with pulmonary edema versus | | | infection. 3. Possible small left apical pneumothorax. Follow-up on | | | subsequent exams. Electronically signed by Augie Rodrigez MD on | | | 06/26/2017 6:28 AM | | + + + + + + | Narrative | Performed At | + + + | NANCY TERRAZAS 1970 46 years XR CHEST 1 VIEW 06/26/2017 | | | 5:54 AM INDICATION: Tube and line position. COMPARISON: June | | | 2017 TECHNIQUE: Chest 1 view, AP view of the chest | | | FINDINGS: Endotracheal tube 4.2 cm above the viraj. Enteric tube | | | passing below the level of the diaphragm. Bilateral diffuse | | | airspace disease, consistent with pulmonary edema versus infection. | | | There is a indeterminate line at the lung apex which could represent | | | small apical pneumothorax versus skinfold. Follow-up subsequent | | | exams. | | + + + + + | Procedure Note | + + | Meir, Ross Conversion - 10/15/2018 11:00 AM PDT NANCY Lobato [id number] yearsXR | | CHEST 1 VIEW06/26/2017 5:54 AM INDICATION: Tube and line position. COMPARISON: June 25 | | 2017 TECHNIQUE: Chest 1 view, AP view of the chest FINDINGS:Endotracheal tube 4.2 cm | | above the viraj. Enteric tube passing below the level of the diaphragm. Bilateral | | diffuse airspace disease, consistent with pulmonary edema versus infection. There is a | | indeterminate line at the lung apex which could represent small apical pneumothorax | | versus skinfold. Follow-up subsequent exams. IMPRESSION: 1. Tubes and lines in expected | | position.2. Bilateral unchanged diffuse airspace disease, consistent with pulmonary | | edema versus infection.3. Possible small left apical pneumothorax. Follow-up on | | subsequent exams. | |TECHNIQUE: Chest 1 view, AP view of the chest | | | |FINDINGS: | |Endotracheal tube 4.2 cm above the viraj. Enteric tube passing below the level of the diap hragm. | | | |Bilateral diffuse airspace disease, consistent with pulmonary edema versus infection. | | | |There is a indeterminate line at the lung apex which could represent small apical pneumotho rax versus skinfold. Follow-up subsequent exams. | | | |IMPRESSION: | |1. Tubes and lines in expected position. | |2. Bilateral unchanged diffuse airspace disease, consistent with pulmonary edema versus inf ection. | |3. Possible small left apical pneumothorax. Follow-up on subsequent exams. | | | | | + + External Lab: CBC (06/26/2017 3:05 AM PDT) + + + + + + | Component | Value | Ref Range | Performed | Pathologist | | | | | At | Signature | + + + + + + | WBC | 15.71 (H) | 3.80 - 11.00 | EXTERNAL | | | | | K/uL | LAB | | + + + + + + | Non- | 3.14 (L) | 3.70 - 5.10 | EXTERNAL | | | Red Blood | | M/uL | LAB | | | Cells | | | | | | Counted | | | | | + + + + + + | Hemoglobin | 9.2 (L) | 11.3 - 15.5 | EXTERNAL | | | | | g/dL | LAB | | + + + + + + | Hematocrit, | 27.7 (L) | 34.0 - 46.0 % | EXTERNAL | | | POC | | | LAB | | + + + + + + | MCV | 88.3 | 80.0 - 100.0 fl | EXTERNAL | | | | | | LAB | | + + + + + + | MCH | 29.5 | 27.0 - 34.0 pg | EXTERNAL | | | | | | LAB | | + + + + + + | MCHC | 33.4 | 32.0 - 35.5 | EXTERNAL | | | | | g/dL | LAB | | + + + + + + | RDW-CV | 43.3 | 37 - 53 fl | EXTERNAL | | | | | | LAB | | + + + + + + | Platelet | 290 | 150 - 400 K/uL | EXTERNAL | | | Count | | | LAB | | | Plasma | | | | | + + + + + + | MPV | 9.1 | fl | EXTERNAL | | | | | | LAB | | + + + + + + | Differentia | AUTOMATED | | EXTERNAL | | | l Type | | | LAB | | + + + + + + | % Segmented | 76.51 | % | EXTERNAL | | | | | | LAB | | | Neutrophils | | | | | + + + + + + | % | 13.42 | % | EXTERNAL | | | Lymphocytes | | | LAB | | + + + + + + | % Monocytes | 8.35 | % | EXTERNAL | | | | | | LAB | | + + + + + + | % | 1.45 | % | EXTERNAL | | | Eosinophils | | | LAB | | + + + + + + | % Basophils | 0.27 | % | EXTERNAL | | | | | | LAB | | + + + + + + | Absolute | 12.02 (H) | 1.90 - 7.40 | EXTERNAL | | | Segmented | | K/uL | LAB | | | Neutrophils | | | | | + + + + + + | Absolute | 2.11 | 1.00 - 3.90 | EXTERNAL | | | Lymphocytes | | K/uL | LAB | | + + + + + + | Absolute | 1.31 (H) | 0.00 - 0.80 | EXTERNAL | | | Monocytes | | K/uL | LAB | | + + + + + + | Absolute | 0.23 | 0.00 - 0.50 | EXTERNAL | | | Eosinophils | | K/uL | LAB | | + + + + + + | Absolute | 0.04Comment: Testing | 0.00 - 0.10 | EXTERNAL | | | Basophils | performed at [facility], [address] | K/uL | LAB | | | | [address], | | | | | | [place] [address] | | | | + + + + + + + + | Specimen | + + | Blood specimen | | (specimen) | + + + +---------+ + + | Performing | Address | City/State/Zipcode | Phone Number | | Organization | | | | + +---------+ + + | EXTERNAL LAB | | | | + +---------+ + + Magnesium (06/26/2017 3:05 AM PDT) + + + + + + | Component | Value | Ref Range | Performed | Pathologist | | | | | At | Signature | + + + + + + | Magnesium | 2.1Comment: Testing | 1.7 - 2.4 mg/dL | EXTERNAL | | | | performed at [facility], [address] | | LAB | | | | [address], | | | | | | [place] [address] | | | | + + + + + + + + | Specimen | + + | Blood specimen | | (specimen) | + + + +---------+ + + | Performing | Address | City/State/Zipcode | Phone Number | | Organization | | | | + +---------+ + + | EXTERNAL LAB | | | | + +---------+ + + Basic Metabolic Panel (06/26/2017 3:05 AM PDT) + + + + + + | Component | Value | Ref Range | Performed | Pathologist | | | | | At | Signature | + + + + + + | Na | 142 | 135 - 145 | EXTERNAL | | | | | mmol/L | LAB | | + + + + + + | K | 4.0 | 3.5 - 4.9 | EXTERNAL | | | | | mmol/L | LAB | | + + + + + + | Cl | 108 | 99 - 109 mmol/L | EXTERNAL | | | | | | LAB | | + + + + + + | CO2 | 27 | 23 - 32 mmol/L | EXTERNAL | | | | | | LAB | | + + + + + + | Anion Gap | 11 | 5 - 20 mmol/L | EXTERNAL | | | | | | LAB | | + + + + + + | Glucose, | 222 (H) | 65 - 99 mg/dL | EXTERNAL | | | Fasting | | | LAB | | + + + + + + | BUN | 12 | 8 - 25 mg/dL | EXTERNAL | | | | | | LAB | | + + + + + + | Creatinine | 0.6 | 0.50 - 1.00 | EXTERNAL | | | | | mg/dL | LAB | | + + + + + + | BUN/Creatin | 20 | | EXTERNAL | | | ine Ratio | | | LAB | | + + + + + + | Calcium | 8.2 (L) | 8.5 - 10.5 | EXTERNAL | | | | | mg/dL | LAB | | + + + [...] | | | | | | at [facility], [address] | | | | | | [facility], | | | | | | [place] [address] | | | | + + + + + + + + | Specimen | + + | Blood specimen | | (specimen) | + + + +---------+ + + | Performing | Address | City/State/Zipcode | Phone Number | | Organization | | | | + +---------+ + + | EXTERNAL LAB | | | | + +---------+ + + CK-MB (06/26/2017 3:04 AM PDT) + + + + + -+ | Component | Value | Ref Range | Performed | Pathologist | | | | | At | Signature | + + + + + -+ | CK-MB | 1.8 | 0.5 - 3.6 ng/mL | EXTERNAL | | | | | | LAB | | + + + + + -+ | CK-MB Index | 1.8Comment: CK INDEX | | EXTERNAL | | [...] | + +---------+ + + Troponin I (06/26/2017 3:04 AM PDT) + + + + + + | Component | Value | Ref Range | Performed | Pathologist | | | | | At | Signature | + + + + + + | Troponin I, | 0.438 (H)Comment: 0.00 | 0.00 - 0.10 | EXTERNAL | | | Qual | to 0.10 CONSISTENT | ng/mL | LAB | | | | WITH NORMAL | | | | | | POPULATION0.11 to 0.60 | | | | | | CONSISTENT WITH | | | | | | INCREASED RISK FOR | | | | | | ADVERSE OUTCOMES> 0.60 | | | | | | CONSISTENT | | | | | | WITH WHO CRITERIA FOR | | | | | | ACUTE NM Testing | | | | | | performed at [facility];[address] | | | | | | [address];[place], [place] | | | | | | [address] | | | | + + + + + + + + | Specimen | + + | Blood specimen | | (specimen) | + + + +---------+ + + | Performing | Address | City/State/Zipcode | Phone Number | | Organization | | | | + +---------+ + + | EXTERNAL LAB | | | | + +---------+ + + Potassium (06/26/2017 3:04 AM PDT) + + + + + + | Component | Value | Ref Range | Performed | Pathologist | | | | | At | Signature | + + + + + + | K | 4.1Comment: Testing | 3.5 - 4.9 | EXTERNAL | | | | performed at [facility], [address] | mmol/L | LAB | | | | [address], | | | | | | [place] [address] | | | | + + + + + + + + | Specimen | + + | Blood specimen | | (specimen) | + + + +---------+ + + | Performing | Address | City/State/Zipcode | Phone Number | | Organization | | | | + +---------+ + + | EXTERNAL LAB | | | | + +---------+ + + CK Total (06/26/2017 3:04 AM PDT) + + + + + + | Component | Value | Ref Range | Performed | Pathologist | | | | | At | Signature | + + + + + + | CK, Total | 99Comment: Testing | 30 - 240 U/L | EXTERNAL | | | | performed at [facility];[address] | | LAB | | | | [address];[place] | | | | | | [address] | | | | + + + + + + + + | Specimen | + + | Blood specimen | | (specimen) | + + + +---------+ + + | Performing | Address | City/State/Zipcode | Phone Number | | Organization | | | | + +---------+ + + | EXTERNAL LAB | | | | + +---------+ + + POC Glucose (06/26/2017 2:52 AM PDT) + + + + + + | Component | Value | Ref Range | Performed | Pathologist | | | | | At | Signature | + + + + + + | Glucose, | 209 (H)Comment: Testing | 65 - 99 mg/dL | EXTERNAL | | | Fingerstick | performed at [facility];[address] | | LAB | | | | [address];[place] | | | | | | [address] | | | | + + + + + + + + | Specimen | + + | | + + + +---------+ + + | Performing | Address | City/State/Zipcode | Phone Number | | Organization | | | | + +---------+ + + | EXTERNAL LAB | | | | + +---------+ + + CK-MB (06/25/2017 10:03 PM PDT) + + + + + -+ | Component | Value | Ref Range | Performed | Pathologist | | | | | At | Signature | + + + + + -+ | CK-MB | 1.0 | 0.5 - 3.6 ng/mL | EXTERNAL | | | | | | LAB | | + + + + + -+ | CK-MB Index | 0.8Comment: CK INDEX | | EXTERNAL | | [...] | + +---------+ + + Troponin I (06/25/2017 10:03 PM PDT) + + + + + + | Component | Value | Ref Range | Performed | Pathologist | | | | | At | Signature | + + + + + + | Troponin I, | 0.117 (H)Comment: 0.00 | 0.00 - 0.10 | EXTERNAL | | | Qual | to 0.10 CONSISTENT | ng/mL | LAB | | | | WITH NORMAL | | | | | | POPULATION0.11 to 0.60 | | | | | | CONSISTENT WITH | | | | | | INCREASED RISK FOR | | | | | | ADVERSE OUTCOMES> 0.60 | | | | | | CONSISTENT | | | | | | WITH WHO CRITERIA FOR | | | | | | ACUTE NM Testing | | | | | | performed at [facility];[address] | | | | | | [address];[place], [place] | | | | | | [address] | | | | + + + + + + + + | Specimen | + + | Blood specimen | | (specimen) | + + + +---------+ + + | Performing | Address | City/State/Zipcode | Phone Number | | Organization | | | | + +---------+ + + | EXTERNAL LAB | | | | + +---------+ + + CK Total (06/25/2017 10:03 PM PDT) + + + + + + | Component | Value | Ref Range | Performed | Pathologist | | | | | At | Signature | + + + + + + | CK, Total | 130Comment: Testing | 30 - 240 U/L | EXTERNAL | | | | performed at [facility];[address] | | LAB | | | | [address] [facility];[place], [place] | | | | | | [address] | | | | + + + + + + + + | Specimen | + + | Blood specimen | | (specimen) | + + + +---------+ + + | Performing | Address | City/State/Zipcode | Phone Number | | Organization | | | | + +---------+ + + | EXTERNAL LAB | | | | + +---------+ + + Gram Stain, reflex Sputum Culture (06/25/2017 9:56 PM PDT) + + | Specimen | + + | Body fluid sample | | (specimen) | + + + + + | Narrative | Performed At | + + + | Specimen Description TRACHEAL ASPIRATE GRAM | EXTERNAL LAB | | STAIN NO CELLS OR ORGANISMS SEEN | | | CULTURE 1+ | | | NORMAL UPPER | | | RESPIRATORY [place] | | + + + + +---------+ + + | Performing | Address | City/State/Zipcode | Phone Number | | Organization | | | | + +---------+ + + | EXTERNAL LAB | | | | + +---------+ + + ECG 12 lead (06/25/2017 9:48 PM PDT) + + + + + + | Component | Value | Ref Range | Performed | Pathologist | | | | | At | Signature | + + + + + + | DIAGNOSIS: | Sinus tachycardia with | | EXTERNAL | | | | Fusion | | LAB | | | | complexesNon-specific | | | | | | intra-ventricular | | | | | | conduction blockInferior | | | | | | infarct (cited on or | | | | | | before | | | | | | 25-JUN-2017)Abnormal | | | | | | ECGWhen compared with | | | | | | ECG of 25-JUN-2017 | | | | | | 08:38,Significant | | | | | | changes have | | | | | | occurredConfirmed by | | | | | | ABEL BULLARD ([id number]) on | | | | | | 06/26/2017 10:51:47 AM | | | | + + + + + + + + | Specimen | + + | | + + + + + | Narrative | Performed At | + + + | Historically converted procedure from [employer] environment | EXTERNAL LAB | + + + + +---------+ + + | Performing | Address | City/State/Zipcode | Phone Number | | Organization | | | | + +---------+ + + | EXTERNAL LAB | | | | + +---------+ + + POC Glucose (06/25/2017 9:36 PM PDT) + + + + + + | Component | Value | Ref Range | Performed | Pathologist | | | | | At | Signature | + + + + + + | Glucose, | 251 (H)Comment: Testing | 65 - 99 mg/dL | EXTERNAL | | | Fingerstick | performed at [facility];[address] | | LAB | | | [address];[place], [place] | | | | | | [address] | | | | + + + + + + + + | Specimen | + + | | + + + +---------+ + + | Performing | Address | City/State/Zipcode | Phone Number | | Organization | | | | + +---------+ + + | EXTERNAL LAB | | | | + +---------+ + + XR Chest 1 Vw (06/25/2017 8:46 PM PDT) + + | Specimen | + + | | + + + + + | Impressions | Performed At | + + + | 1. Life-support devices as reported above 2. Cardiomegaly, | | | bilateral interstitial and airspace opacities and small effusion could | | | represent pulmonary edema pattern versus bilateral infiltrate. | | | Correlate clinically | | + + + + + + | Narrative | Performed At | + + + | NANCY Lobato NINI XR CHEST 1 VIEW 06/25/2017 8:46 PM History: | | | 46 years. Female. Critical care unit patient. Respiratory failure | | | Technique: AP supine portable view of the chest at 2040 hours. | | | Compared to 0522 hours earlier this morning. Findings: Interval | | | placement of a endotracheal tube the tip is in the mid trachea | | | nasogastric tube extends below the level of the image however the | | | proximal port appears to be at the level of the GE junction and | | | advancement is suggested. Left cardiac margin is obscured by | | | interstitial and airspace opacities but appears generous. Persistent | | | bilateral interstitial and airspace opacities possible small left | | | effusion. There appears to be interval improvement in the aeration of | | | the right hemithorax and left lung apex possibly technique related. | | + + + + + | Procedure Note | + + | Ross Worley Conversion - 10/15/2018 11:00 AM PDT NANCY NOBLE CHEST 1 | | VIEW06/25/2017 8:46 PM History: 46 years. Female. Critical care unit patient. | | Respiratory failure Technique: AP supine portable view of the chest at 2040 hours. | | Compared to 0522 hours earlier this morning. Findings: Interval placement of a | | endotracheal tube the tip is in the mid trachea nasogastric tube extends below the level | | of the image however the proximal port appears to be at the level of the GE junction | | and advancement is suggested. Left cardiac margin is obscured by interstitial and | | airspace opacities but appears generous. Persistent bilateral interstitial and airspace | | opacities possible small left effusion. There appears to be interval improvement in the | | aeration of the right hemithorax and left lung apex possibly technique | | related.IMPRESSION: 1. Life-support devices as reported above2. Cardiomegaly, | | bilateral interstitial and airspace opacities and small effusion could represent | | pulmonary edema pattern versus bilateral infiltrate. Correlate clinically Electronically | | signed by Aurelio Espinal MD on 06/25/2017 9:05 PM | | | | | + + Troponin I (06/25/2017 6:09 PM PDT) + + + + + + | Component | Value | Ref Range | Performed | Pathologist | | | | | At | Signature | + + + + + + | Troponin I, | 0.046Comment: 0.00 to | 0.00 - 0.10 | [...] | | | | | | ACUTE NM Testing | | | | | | performed at [facility];[address] | | | | | | [address] [facility];[place], [place] | | | | | | [address] | | | | + + + + + + + + | Specimen | + + | Blood specimen | | (specimen) | + + + +---------+ + + | Performing | Address | City/State/Zipcode | Phone Number | | Organization | | | | + +---------+ + + | EXTERNAL LAB | | | | + +---------+ + + Potassium (06/25/2017 6:09 PM PDT) + + + + + + | Component | Value | Ref Range | Performed | Pathologist | | | | | At | Signature | + + + + + + | K | 3.5Comment: Testing | 3.5 - 4.9 | EXTERNAL | | | | performed at [facility];[address] | mmol/L | LAB | | | | [address];[place], [place] | | | | | | [address] | | | | + + + + + + + + | Specimen | + + | Blood specimen | | (specimen) | + + + +---------+ + + | Performing | Address | City/State/Zipcode | Phone Number | | Organization | | | | + +---------+ + + | EXTERNAL LAB | | | | + +---------+ + + POC Glucose (06/25/2017 2:33 PM PDT) + + + + + + | Component | Value | Ref Range | Performed | Pathologist | | | | | At | Signature | + + + + + + | Glucose, | 148 (H)Comment: Testing | 65 - 99 mg/dL | EXTERNAL | | | Fingerstick | performed at [facility];[address] | | LAB | | | | [address];[place], [place] | | | | | | [address] | | | | + + + + + + + + | Specimen | + + | | + + + +---------+ + + | Performing | Address | City/State/Zipcode | Phone Number | | Organization | | | | + +---------+ + + | EXTERNAL LAB | | | | + +---------+ + + Troponin I (06/25/2017 12:33 PM PDT) + + + + + + | Component | Value | Ref Range | Performed | Pathologist | | | | | At | Signature | + + + + + + | Troponin I, | 0.055Comment: 0.00 to | 0.00 - 0.10 | [...] | | | | | | ACUTE NM Testing | | | | | | performed at [facility] | | | | | | [facility];[place], [place] | | | | | | [address] | | | | + + + + + + + + | Specimen | + + | Blood specimen | | (specimen) | + + + +---------+ + + | Performing | Address | City/State/Zipcode | Phone Number | | Organization | | | | + +---------+ + + | EXTERNAL LAB | | | | + +---------+ + + HISTORICAL MICROBIOLOGY RESULT (06/25/2017 11:29 AM PDT) + + | Specimen | + + | | + + + + + | Narrative | Performed At | + + + | ADENOVIRUS Not Detected | EXTERNAL LAB | | CORONAVIRUS 229E Not Detected CORONAVIRUS | | | HKU1 Not Detected CORONAVIRUS NL63 | | | Not Detected CORONAVIRUS OC43 | | | Not Detected HUMAN METAPNEUMOVIRUS Not | | | Detected HUMAN RHINO/ENTERO Not Detected | | | INFLUENZA A Not Detected INFLUENZA | | | B Not Detected PARAINFLUENZA 1 | | | Not Detected PARAINFLUENZA 2 | | | Not Detected PARAINFLUENZA 3 | | | Not Detected PARAINFLUENZA 4 Not | | | Detected RESP SYNCYTIAL VIRUS Not Detected | | | BORDETELLA PERTUSSIS Not Detected CHLAMYDIAE | | | PNEUMONIAE Not Detected MYCOPLASMA PNEUMONIAE | | | Not Detected RESP PANEL INTERP | | | Testing performed by Molecular Methodology Testing performed at | | | [facility], [address] [place] [address] | | + + + + +---------+ + + | Performing | Address | City/State/Zipcode | Phone Number | | Organization | | | | + +---------+ + + | EXTERNAL LAB | | | | + +---------+ + + Drugs Of ABuse Screen, Urine (H) (06/25/2017 11:11 AM PDT) + + + + + + | Component | Value | Ref Range | Performed | Pathologist | | | | | At | Signature | + + + + + + | Methampheta | NEGATIVEComment: | | EXTERNAL | | | mine/ | Positive cutoff for AMP | | LAB | | | Amphetamine | = 1000 ng/mL | | | | | Screen, | | | | | | UA, POC | | | | | + + + + + + | Barbiturate | NEGATIVEComment: | | EXTERNAL | | | s Screen, | Positive cutoff for DELBERT | | LAB | | | Urine | = 200 ng/mL | | | | + + + + + + | Benzodiazep | NEGATIVEComment: | | EXTERNAL | | | masood | Positive cutoff for | | LAB | | | Screen, | BENZO = 200 ng/mL | | | | | Urine | | | | | + + + + + + | Cocaine | NEGATIVEComment: | | EXTERNAL | | | | Positive cutoff for HIRA | | LAB | | | | = 300 ng/mL | | | | + + + + + + | Methadone | NEGATIVEComment: | | EXTERNAL | | | | Positive cutoff for MTD | | LAB | | | | = 300 ng/mL | | | | + + + + + + | Opiates | POSITIVE (A)Comment: | | EXTERNAL | | | | Positive cutoff for OPI | | LAB | | | | = 300 ng/mL | | | | + + + + + + | PCP | NEGATIVEComment: | | EXTERNAL | | | | Positive cutoff for PCP | | LAB | | | | = 25 ng/mL | | | | + + + + + + | Cannabinoid | POSITIVE (A)Comment: | | EXTERNAL | | | s Screen, | Positive cutoff for | | LAB | | | Serum | THC = 50 ng/mLThe above | | | | | | are unconfirmed | | | | | | screening results. | | | | | | These results are to | | | | | | be used only for medical | | | | | | (i.e.,treatment) | | | | | | purposes. Unconfirmed | | | | | | screening results must | | | | | | not be used for | | | | | | non-medical purposes | | | | | | (e.g., employment | | | | | | testing, legal | | | | | | testing).Testing | | | | | | performed at [facility];[address] | | | | | | [address] [facility];[place], [place] | | | | | | [address] | | | | + + + + + + + + | Specimen | + + | | + + + +---------+ + + | Performing | Address | City/State/Zipcode | Phone Number | | Organization | | | | + +---------+ + + | EXTERNAL LAB | | | | + +---------+ + + Urinalysis with Microscopic with Culture if Indicated (06/25/2017 11:11 AM PDT) + + + + + + | Component | Value | Ref Range | Performed | Pathologist | | | | | At | Signature | + + + + + + | Color | YELLOW | | EXTERNAL | | | | | | LAB | | + + + + + + | Clarity, | CLEAR | | EXTERNAL | | | Urine | | | LAB | | + + + + + + | Specific | 1.010 | 1.002 - 1.030 | EXTERNAL | | | [place], | | | LAB | | | Urine | | | | | + + + + + + | Leukocyte | NEGATIVE | | EXTERNAL | | | Esterase, | | | LAB | | | Urine | | | | | + + + + + + | Nitrite, | NEGATIVE | | EXTERNAL | | | Urine | | | LAB | | + + + + + + | Urobilinoge | NORMAL | mg/dL | EXTERNAL | | | n, Urine | | | LAB | | + + + + + + | Protein, | NEGATIVE | mg/dL | EXTERNAL | | | Urine | | | LAB | | + + + + + + | pH, Urine | 5.0 | 5.0 - 8.0 | EXTERNAL | | | | | | LAB | | + + + + + + | Blood, | NEGATIVE | | EXTERNAL | | | Urine | | | LAB | | + + + + + + | Ketones | NEGATIVE | mg/dL | EXTERNAL | | | | | | LAB | | + + + + + + | Bilirubin, | NEGATIVE | | EXTERNAL | | | Urine | | | LAB | | + + + + + + | Glucose, | NEGATIVE | mg/dL | EXTERNAL | | | Urine | | | LAB | | + + + + + + | WBC, UA | 0-2 | 0 - 5 /hpf | EXTERNAL | | | | | | LAB | | + + + + + + | RBC, UA | 0-2 | 0 - 5 /hpf | EXTERNAL | | | | | | LAB | | + + + + + + | Epithelial | 16-25 | /lpf | EXTERNAL | | | Cells | | | LAB | | + + + + + + | Bacteria, | NONE SEEN | | EXTERNAL | | | UA | | | LAB | | + + + + + + | Mucus, | 1+Comment: Testing | | EXTERNAL | | | Urine | performed at [facility], [address] | | LAB | | | | [address], | | | | | | [place] [address] | | | | + + + + + + + + | Specimen | + + | | + + + +---------+ + + | Performing | Address | City/State/Zipcode | Phone Number | | Organization | | | | + +---------+ + + | EXTERNAL LAB | | | | + +---------+ + + Streptococcus Pneumoniae Ag, Urine (06/25/2017 11:10 AM PDT) + + | Specimen | + + | | + + + + + | Narrative | Performed At | + + + | SPECIMEN SOURCE Urine STREP | EXTERNAL LAB | | PNEUMONIAE AG Negative Reference range: | | | Negative BODY FLUID CULT, STERILE Not Indicated | | | ORGANISM ID Not indicated. PLEASE | | | NOTE: (See Below) [employer] | | | [employer] standards require a culture to be performed on | | | CSF specimens submitted for bacterial antigen testing. (CAP | | | [id number]) Urine specimens will not be cultured. Testing performed by | | | [facility], [address] [place] [id number] | | + + + + +---------+ + + | Performing | Address | City/State/[facility] | Phone Number | | Organization | | | | + +---------+ + + | EXTERNAL LAB | | | | + +---------+ + + POC Glucose (06/25/2017 9:18 AM PDT) + + + + + + | Component | Value | Ref Range | Performed | Pathologist | | | | | At | Signature | + + + + + + | Glucose, | 170 (H)Comment: Testing | 65 - 99 mg/dL | EXTERNAL | | | Fingerstick | performed at [facility];[address] | | LAB | | | | [address];[place], [place] | | | | | | [address] | | | | + + + + + + + + | Specimen | + + | | + + + +---------+ + + | Performing | Address | City/State/Zipcode | Phone Number | | Organization | | | | + +---------+ + + | EXTERNAL LAB | | | | + +---------+ + + ECG 12 lead (06/25/2017 8:38 AM PDT) + + + + + + | Component | Value | Ref Range | Performed | Pathologist | | | | | At | Signature | + + + + + + | DIAGNOSIS: | Normal sinus | | EXTERNAL | | | | rhythmInferior infarct | | LAB | | | | (cited on or before | | | | | | 25-JUN-2017)Possible | | | | | | Anterior infarct (cited | | | | | | on or before | | | | | | 25-JUN-2017)Abnormal | | | | | | ECGWhen compared with | | | | | | ECG of 25-JUN-2017 | | | | | | 06:45,Serial changes of | | | | | | Anterior infarct | | | | | | PresentConfirmed by | | | | | | ABEL BULLARD ([id number]) on | | | | | | 06/25/2017 11:29:47 AM | | | | + + + + + + + + | Specimen | + + | | + + + + + | Narrative | Performed At | + + + | Historically converted procedure from [facility] Epic environment | EXTERNAL LAB | + + + + +---------+ + + | Performing | Address | City/State/Zipcode | Phone Number | | Organization | | | | + +---------+ + + | EXTERNAL LAB | | | | + +---------+ + + Echo Limited (06/25/2017 8:15 AM PDT) + + | Specimen | + + | | + + + + + | Impressions | Performed At | + + + | 1. This was a technically difficult study with suboptimal views. 2. | | | Left ventricular systolic function is hyperdynamic with an estimated | | | EF of >70%. | | + + + + + + | Narrative | Performed At | + + + | Patient Name: NANCY TERRAZAS Date of : 1970 | | | Performing Physician: Pilo Ocampo MD | | | | | | INDICATIONS SHORTNESS OF BREATH, LEFT PNEUMOTHORAX, | | | PRIOR STUDY 06/06/2017 CONCLUSIONS 1. This was a | | | technically difficult study with suboptimal views. 2. Left | | | ventricular systolic function is hyperdynamic with an estimated EF of | | | >70%. FINDINGS -------- ECG rhythm: Sinus rhythm. Study: A | | | limited 2-dimensional transthoracic echocardiogram with limited | | | spectral and color flow Doppler was performed. Study: This was a | | | technically difficult study with suboptimal views. Left Ventricle: | | | Left ventricular systolic function is hyperdynamic with an estimated | | | EF of >70%. Pericardium: There is no pericardial effusion. | | | Pericardium: Anterior echo free space present. MEASUREMENTS | | | EDV(Teich): 53.06 ml IVSd: 1.16 cm LVIDd: | | | 3.56 cm LVPWd: 1.05 cm %FS: 45.26 % EF(Teich): 77.52 % | | | ESV(Teich): 11.92 ml IVSs: 1.31 cm LVIDs: 1.94 cm LVPWs: | | | 1.26 cm SV(Teich): 41.13 ml LVEF MOD A2C: 78.51 % SV MOD | | | A2C: 30.77 ml LVEF MOD A4C: 71.88 % SV MOD A4C: 44.08 ml | | | EF Biplane: 74.07 % LVEDV MOD BP: 49.54 ml LVESV MOD BP: | | | 12.84 ml LVEDV MOD A2C: 39.20 ml LVLd A2C: 6.97 cm LVEDV MOD | | | A4C: 61.33 ml LVLd A4C: 6.74 cm LVESV MOD A2C: 8.42 ml | | | LVLs A2C: 5.17 cm LVESV MOD A4C: 17.24 ml LVLs A4C: 5.93 cm | | | Television Engineer: RAUL Authenticated by: Pilo Ocampo MD Report | | | Date/Time: 06-25-2017 13:16:22 | | + + + + ------+ | Procedure Note | + ------+ | Meir, Rad Conversion - 10/15/2018 11:00 AM PDT Patient Name: Lopez TERRAZAS of | | : 1970 Performing Physician: Pilo Ocampo | | MD INDICATIONS S | | HORTNESS OF BREATH, LEFT PNEUMOTHORAX, PRIOR STUDY 06/06/2017 CONCLUSIONS 1. | | This was a technically difficult study with suboptimal views.2. Left ventricular | | systolic function is hyperdynamic with an estimated EF of >70%. FINDINGS--------ECG | | rhythm: Sinus rhythm.Study: A limited 2-dimensional transthoracic echocardiogram with | | limited spectral and color flow Doppler was performed.Study: This was a technically | | difficult study with suboptimal views.Left Ventricle: Left ventricular systolic function | | is hyperdynamic with an estimated EF of >70%.Pericardium: There is no pericardial | | effusion.Pericardium: Anterior echo free space present. | | MEASUREMENTS EDV(Teich): 53.06 mlIVSd: 1.16 cmLVIDd: 3.56 cmLVPWd: | | 1.05 cm%FS: 45.26 %EF(Teich): 77.52 %ESV(Teich): 11.92 mlIVSs: 1.31 cmLVIDs: | | 1.94 cmLVPWs: 1.26 cmSV(Teich): 41.13 mlLVEF MOD A2C: 78.51 %SV MOD A2C: 30.77 | | mlLVEF MOD A4C: 71.88 %SV MOD A4C: 44.08 mlEF Biplane: 74.07 %LVEDV MOD BP: | | 49.54 mlLVESV MOD BP: 12.84 mlLVEDV MOD A2C: 39.20 mlLVLd A2C: 6.97 cmLVEDV MOD | | A4C: 61.33 mlLVLd A4C: 6.74 cmLVESV MOD A2C: 8.42 mlLVLs A2C: 5.17 cmLVESV MOD | | A4C: 17.24 mlLVLs A4C: 5.93 cm Television Engineer: SANDEEPuthenticated by: Pilo Ocampo | | MDReport Date/Time: 06-25-2017 13:16:22 IMPRESSION: 1. This was a technically difficult | | study with suboptimal views.2. Left ventricular systolic function is hyperdynamic with | | an estimated EF of >70%. | |Study: This was a technically difficult study with suboptimal views. | |Left Ventricle: Left ventricular systolic function is hyperdynamic with an estimated EF of >70%. | |Pericardium: There is no pericardial effusion. | |Pericardium: Anterior echo free space present. | | | |MEASUREMENTS | | | |EDV(Teich): 53.06 ml | |IVSd: 1.16 cm | |LVIDd: 3.56 cm | |LVPWd: 1.05 cm | |%FS: 45.26 % | |EF(Teich): 77.52 % | |ESV(Teich): 11.92 ml | |IVSs: 1.31 cm | |LVIDs: 1.94 cm | |LVPWs: 1.26 cm | |SV(Teich): 41.13 ml | |LVEF MOD A2C: 78.51 % | |SV MOD A2C: 30.77 ml | |LVEF MOD A4C: 71.88 % | |SV MOD A4C: 44.08 ml | |EF Biplane: 74.07 % | |LVEDV MOD BP: 49.54 ml | |LVESV MOD BP: 12.84 ml | |LVEDV MOD A2C: 39.20 ml | |LVLd A2C: 6.97 cm | |LVEDV MOD A4C: 61.33 ml | |LVLd A4C: 6.74 cm | |LVESV MOD A2C: 8.42 ml | |LVLs A2C: 5.17 cm | |LVESV MOD A4C: 17.24 ml | |LVLs A4C: 5.93 cm | | | |Television Engineer: KVW | |Authenticated by: Pilo Ocampo MD | |Report Date/Time: 06-25-2017 13:16:22 | | | |IMPRESSION: | |1. This was a technically difficult study with suboptimal views. | |2. Left ventricular systolic function is hyperdynamic with an estimated EF of >70%. | + ------+ Procalcitonin (06/25/2017 7:00 AM PDT) + + + + + + | Component | Value | Ref Range | Performed | Pathologist | | | | | At | Signature | + + + + + + | PROCALCITON | 0.19Comment: | ng/mL | EXTERNAL | | | IN | INTERPRETIVE | | LAB | | | | INFORMATION: | | | | | | PROCALCITONIN PCT <= | | | | | | 0.5 ng/mL: Low risk | | | | | | for progression to | | | | | | severe systemic | | | | | | bacterial infection | | | | | | (severe sepsis/septic | | | | | | shock). Does not | | | | | | exclude an infection, | | | | | | because localized | | | | | | infections may be | | | | | | associated with such low | | | | | | levels. If PCT is | | | | | | measured very early | | | | | | after bacterial | | | | | | challenge (usually <6 | | | | | | hours), results may | | | | | | still be low and | | | | | | should re-assess PCT | | | | | | 6-24 hours later. PCT | | | | | | >0.5 and <= 2 ng/mL: | | | | | | Moderate risk for | | | | | | progression to severe | | | | | | systemic infection | | | | | | (severe sepsis/septic | | | | | | shock). Other | | | | | | conditions are known | | | | | | to elevate PCT, patient | | | | | | should be closely | | | | | | monitored both | | | | | | clinically and by | | | | | | re-assessing PCT | | | | | | within 6-24 hours. PCT > | | | | | | 2 ng/mL: High | | | | | | likelihood for | | | | | | progression to severe | | | | | | systemic bacterial | | | | | | infection (severe | | | | | | sepsis/septic shock). | | | | | | PCT >= 10 ng/mL: | | | | | | High likelihood of | | | | | | severe sepsis or septic | | | | | | shock.Testing performed | | | | | | at [facility];[address] [place] [address] | | | | | | [facility];[place] [address] | | | | + + + + + + + + | Specimen | + + | | + + + +---------+ + + | Performing | Address | City/State/Zipcode | Phone Number | | Organization | | | | + +---------+ + + | EXTERNAL LAB | | | | + +---------+ + + Troponin I (06/25/2017 7:00 AM PDT) + + + + + + | Component | Value | Ref Range | Performed | Pathologist | | | | | At | Signature | + + + + + + | Troponin I, | 0.059Comment: 0.00 to | 0.00 - 0.10 | [...] | | | | | | ACUTE NM Testing | | | | | | performed at [facility];[address] | | | | | | [address];[place], [place] | | | | | | [address] | | | | + + + [...] + +---------+ + + ECG 12 lead (06/25/2017 6:45 AM PDT) + + + + + + | Component | Value | Ref Range | Performed | Pathologist | | | | | At | Signature | + + + + + + | DIAGNOSIS: | Sinus tachycardia with | | EXTERNAL | | | | Artifact | | LAB | | | | noted.Inferior infarct , | | | | | | age | | | | | | undeterminedAnterolatera | | | | | | l infarct (cited on or | | | | | | before | | | | | | 25-JUN-2017)Prolonged | | | | | | QTAbnormal ECGWhen | | | | | | compared with ECG of | | | | | | 03-JUN-2017 | | | | | | 11:31,Previous ECG has | | | | | | undetermined rhythm, | | | | | | needs reviewInferior | | | | | | infarct is now | | | | | | PresentSerial changes of | | | | | | Anterior infarct | | | | | | PresentConfirmed by | | | | | | ABEL BULLARD ([id number]) on | | | | | | 06/25/2017 8:00:27 AM | | | | + + + + + + + + | Specimen | + + | | + + + + + | Narrative | Performed At | + + + | Historically converted procedure from [facility] Epic environment | EXTERNAL LAB | + + + + +---------+ + + | Performing | Address | City/State/Zipcode | Phone Number | | Organization | | | | + +---------+ + + | EXTERNAL LAB | | | | + +---------+ + + Hepatic Function Panel (06/25/2017 5:33 AM PDT) + + + + + + | Component | Value | Ref Range | Performed | Pathologist | | | | | At | Signature | + + + + + + | Protein, | 6.9 | 6.3 - 8.2 g/dL | EXTERNAL | | | Total | | | LAB | | + + + + + + | Albumin | 1.5 (L) | 3.6 - 5.0 g/dL | EXTERNAL | | | | | | LAB | | + + + + + + | Bilirubin | 0.5Comment: SPECIMEN | 0.1 - 1.5 mg/dL | EXTERNAL | | | Total | MODERATELY HEMOLYZED | | LAB | | + + + + + + | Bilirubin | <0.1Comment: SPECIMEN | 0.0 - 0.3 mg/dL | EXTERNAL | | | Direct | MODERATELY HEMOLYZED | | LAB | | + + + + + + | ALP, | 150 (H) | 35 - 115 U/L | EXTERNAL | | | External | | | LAB | | + + + + + + | AST | 81 (H)Comment: SPECIMEN | 10 - 45 U/L | EXTERNAL | | | | MODERATELY HEMOLYZED | | LAB | | + + + + + + | ALT | 18Comment: Testing | 10 - 65 U/L | EXTERNAL | | | | performed at [facility], [address] | | LAB | | | | [address], | | | | | | [place] [address] | | | | + + + + + + + + | Specimen | + + | Blood specimen | | (specimen) | + + + +---------+ + + | Performing | Address | City/State/Zipcode | Phone Number | | Organization | | | | + +---------+ + + | EXTERNAL LAB | | | | + +---------+ + + XR Chest 1 Vw (06/25/2017 5:31 AM PDT) + + | Specimen | + + | | + + + + + | Impressions | Performed At | + + + | 1. Mild cardiomegaly with worsening bilateral pulmonary opacities | | | and possible small left effusion. 2. Suspect 1 cm residual left | | | apical pneumothorax. RADIA Electronically signed by Eric | | | MD Sammie on Jun 25 2017 5:54AM Referring Provider Line: | | | [phone] ID: [id number] | | + + + + + + | Narrative | Performed At | + + + | EXAM: CHEST RADIOGRAPHY EXAM DATE: 06/25/2017 05:32 AM. | | | CLINICAL HISTORY: Shortness of breath. COMPARISON: 06/24/2017. | | | TECHNIQUE: 1 view. FINDINGS: Lungs/Pleura: Worsening bilateral | | | pulmonary opacities. Possible small left pleural effusion. There may | | | be a 1 cm left apical pneumothorax. Mediastinum: Mild | | | cardiomegaly. Other: Soft tissue emphysema again seen in the left | | | chest wall. | | + + + + + | Procedure Note | + + | Ross Worley Conversion - 10/15/2018 11:00 AM PDT EXAM:CHEST RADIOGRAPHY EXAM DATE: | | 06/25/2017 05:32 AM. CLINICAL HISTORY: Shortness of breath. COMPARISON: 06/24/2017. | | TECHNIQUE: 1 view. FINDINGS:Lungs/Pleura: Worsening bilateral pulmonary opacities. | | Possible small left pleural effusion. There may be a 1 cm left apical pneumothorax. | | Mediastinum: Mild cardiomegaly. Other: Soft tissue emphysema again seen in the left | | chest wall. IMPRESSION: 1. Mild cardiomegaly with worsening bilateral pulmonary | | opacities and possible small left effusion.2. Suspect 1 cm residual left apical | | pneumothorax. RADIA Electronically signed by Eric Cochran MD on Jun 25 2017 5:54AM | | Referring Provider Line: [phone] ID: [id number] | |TECHNIQUE: 1 view. | | | |FINDINGS: | |Lungs/Pleura: Worsening bilateral pulmonary opacities. Possible small left pleural effusion . There may be a 1 cm left apical pneumothorax. | | | |Mediastinum: Mild cardiomegaly. | | | |Other: Soft tissue emphysema again seen in the left chest wall. | | | |IMPRESSION: | | | |1. Mild cardiomegaly with worsening bilateral pulmonary opacities and possible small left e ffusion. | |2. Suspect 1 cm residual left apical pneumothorax. | | | |RADIA | | | | Electronically signed by Eric Cochran MD on Jun 25 2017 5:54AM Referring Provider Line: [phone] ID: [id number] | + + POC Glucose (06/25/2017 5:26 AM PDT) + + + + + + | Component | Value | Ref Range | Performed | Pathologist | | | | | At | Signature | + + + + + + | Glucose, | 232 (H)Comment: Testing | 65 - 99 mg/dL | EXTERNAL | | | Fingerstick | performed at [facility];[address] | | LAB | | | | [address];[place] | | | | | | [address] | | | | + + + + + + + + | Specimen | + + | | + + + +---------+ + + | Performing | Address | City/State/Zipcode | Phone Number | | Organization | | | | + +---------+ + + | EXTERNAL LAB | | | | + +---------+ + + External Lab: CBC (06/25/2017 5:05 AM PDT) + + + + + + | Component | Value | Ref Range | Performed | Pathologist | | | | | At | Signature | + + + + + + | WBC | 16.44 (H) | 3.80 - 11.00 | EXTERNAL | | | | | K/uL | LAB | | + + + + + + | Non- | 3.54 (L) | 3.70 - 5.10 | EXTERNAL | | | Red Blood | | M/uL | LAB | | | Cells | | | | | | Counted | | | | | + + + + + + | Hemoglobin | 10.6 (L) | 11.3 - 15.5 | EXTERNAL | | | | | g/dL | LAB | | + + + + + + | Hematocrit, | 31.2 (L) | 34.0 - 46.0 % | EXTERNAL | | | POC | | | LAB | | + + + + + + | MCV | 88.3 | 80.0 - 100.0 fl | EXTERNAL | | | | | | LAB | | + + + + + + | MCH | 30.0 | 27.0 - 34.0 pg | EXTERNAL | | | | | | LAB | | + + + + + + | MCHC | 34.0 | 32.0 - 35.5 | EXTERNAL | | | | | g/dL | LAB | | + + + + + + | RDW-CV | 41.1 | 37 - 53 fl | EXTERNAL | | | | | | LAB | | + + + + + + | Platelet | 298 | 150 - 400 K/uL | EXTERNAL | | | Count | | | LAB | | | Plasma | | | | | + + + + + + | MPV | 9.3 | fl | EXTERNAL | | | | | | LAB | | + + + + + + | Differentia | AUTOMATED | | EXTERNAL | | | l Type | | | LAB | | + + + + + + | % Segmented | 82.89 | % | EXTERNAL | | | | | | LAB | | | Neutrophils | | | | | + + + + + + | % | 9.60 | % | EXTERNAL | | | Lymphocytes | | | LAB | | + + + + + + | % Monocytes | 4.67 | % | EXTERNAL | | | | | | LAB | | + + + + + + | % | 2.66 | % | EXTERNAL | | | Eosinophils | | | LAB | | + + + + + + | % Basophils | 0.18 | % | EXTERNAL | | | | | | LAB | | + + + + + + | Absolute | 13.63 (H) | 1.90 - 7.40 | EXTERNAL | | | Segmented | | K/uL | LAB | | | Neutrophils | | | | | + + + + + + | Absolute | 1.58 | 1.00 - 3.90 | EXTERNAL | | | Lymphocytes | | K/uL | LAB | | + + + + + + | Absolute | 0.77 | 0.00 - 0.80 | EXTERNAL | | | Monocytes | | K/uL | LAB | | + + + + + + | Absolute | 0.44 | 0.00 - 0.50 | EXTERNAL | | | Eosinophils | | K/uL | LAB | | + + + + + + | Absolute | 0.03Comment: Testing | 0.00 - 0.10 | EXTERNAL | | | Basophils | performed at [facility], [address] | K/uL | LAB | | | | [address], | | | | | | [place] [address] | | | | + + + + + + + + | Specimen | + + | Blood specimen | | (specimen) | + + + +---------+ + + | Performing | Address | City/State/Zipcode | Phone Number | | Organization | | | | + +---------+ + + | EXTERNAL LAB | | | | + +---------+ + + Magnesium (06/25/2017 5:05 AM PDT) + + + + + + | Component | Value | Ref Range | Performed | Pathologist | | | | | At | Signature | + + + + + + | Magnesium | 2.1Comment: Testing | 1.7 - 2.4 mg/dL | EXTERNAL | | | | performed at [facility], [address] | | LAB | | | | [address], | | | | | | [place] [address] | | | | + + + + + + + + | Specimen | + + | Blood specimen | | (specimen) | + + + +---------+ + + | Performing | Address | City/State/Zipcode | Phone Number | | Organization | | | | + +---------+ + + | EXTERNAL LAB | | | | + +---------+ + + Basic Metabolic Panel (06/25/2017 5:05 AM PDT) + + + + + + | Component | Value | Ref Range | Performed | Pathologist | | | | | At | Signature | + + + + + + | Na | 136 | 135 - 145 | EXTERNAL | | | | | mmol/L | LAB | | + + + + + + | K | 5.2 (H)Comment: SPECIMEN | 3.5 - 4.9 | EXTERNAL | | | | MODERATELY HEMOLYZED | mmol/L | LAB | | + + + + + + | Cl | 105 | 99 - 109 mmol/L | EXTERNAL | | | | | | LAB | | + + + + + + | CO2 | 24 | 23 - 32 mmol/L | EXTERNAL | | | | | | LAB | | + + + + + + | Anion Gap | 12 | 5 - 20 mmol/L | EXTERNAL | | | | | | LAB | | + + + + + + | Glucose, | 207 (H)Comment: SPECIMEN | 65 - 99 mg/dL | EXTERNAL | | | Fasting | MODERATELY HEMOLYZED | | LAB | | + + + + + + | BUN | 12 | 8 - 25 mg/dL | EXTERNAL | | | | | | LAB | | + + + + + + | Creatinine | 0.6Comment: SPECIMEN | 0.50 - 1.00 | EXTERNAL | | | | MODERATELY HEMOLYZED | mg/dL | LAB | | + + + + + + | BUN/Creatin | 20 | | EXTERNAL | | | ine Ratio | | | LAB | | + + + + + + | Calcium | 8.4 (L) | 8.5 - 10.5 | EXTERNAL | | | | | mg/dL | LAB | | + + + [...] | | | | | | at [facility], [address] | | | | | | [address], | | | | | | [place] [address] | | | | + + + + + + + + | Specimen | + + | Blood specimen | | (specimen) | + + + +---------+ + + | Performing | Address | City/State/Zipcode | Phone Number | | Organization | | | | + +---------+ + + | EXTERNAL LAB | | | | + +---------+ + + POC Glucose (06/24/2017 9:31 PM PDT) + + + + + + | Component | Value | Ref Range | Performed | Pathologist | | | | | At | Signature | + + + + + + | Glucose, | 218 (H)Comment: Testing | 65 - 99 mg/dL | EXTERNAL | | | Fingerstick | performed at [facility];[address] | | LAB | | | | [address];[place], [place] | | | | | | [address] | | | | + + + + + + + + | Specimen | + + | | + + + +---------+ + + | Performing | Address | City/State/Zipcode | Phone Number | | Organization | | | | + +---------+ + + | EXTERNAL LAB | | | | + +---------+ + + POC Glucose (06/24/2017 4:30 PM PDT) + + + + + + | Component | Value | Ref Range | Performed | Pathologist | | | | | At | Signature | + + + + + + | Glucose, | 112 (H)Comment: Testing | 65 - 99 mg/dL | EXTERNAL | | | Fingerstick | performed at [facility];[address] | | LAB | | | | [address];[place] | | | | | | [address] | | | | + + + + + + + + | Specimen | + + | | + + + +---------+ + + | Performing | Address | City/State/Zipcode | Phone Number | | Organization | | | | + +---------+ + + | EXTERNAL LAB | | | | + +---------+ + + POC Glucose (06/24/2017 10:42 AM PDT) + + + + + + | Component | Value | Ref Range | Performed | Pathologist | | | | | At | Signature | + + + + + + | Glucose, | 142 (H)Comment: Testing | 65 - 99 mg/dL | EXTERNAL | | | Fingerstick | performed at [facility];[address] | | LAB | | | | [address];[place], [place] | | | | | | [address] | | | | + + + + + + + + | Specimen | + + | | + + + +---------+ + + | Performing | Address | City/State/Zipcode | Phone Number | | Organization | | | | + +---------+ + + | EXTERNAL LAB | | | | + +---------+ + + XR Chest 2 Vws (06/24/2017 6:59 AM PDT) + + | Specimen | + + | | + + + + + | Impressions | Performed At | + + + | Left apical pneumothorax measuring 1.4 cm. Bilateral diffuse | | | pulmonary edema. Electronically signed by Augie Rodrigez MD on | | | 06/24/2017 7:10 AM | | + + + + + + | Narrative | Performed At | + + + | NANCY TERRAZAS 1970 46 years Female XR CHEST 2 VIEW | | | FRONTAL AND LATERAL 06/24/2017 6:59 AM INDICATION: Chest tubes | | | removed. COMPARISON: June 23, 2017 TECHNIQUE: Two view chest, | | | PA and lateral views FINDINGS: Left apical pneumothorax | | | measuring 1.4 cm. Bilateral diffuse pulmonary edema. Likely | | | left basilar atelectasis. No acute osseous abnormality. | | | Subcutaneous emphysema of the left chest wall. | | + + + + + | Procedure Note | + + | Meir, Rad Conversion - 10/15/2018 11:00 AM PDT NANCY TERRAZAS | | 1970 | | 46 years Female | | XR CHEST 2 VIEW FRONTAL AND LATERAL | | 06/24/2017 6:59 AM | | | | INDICATION: Chest tubes removed. | | | | COMPARISON: June 23, 2017 | | | | TECHNIQUE: Two view chest, PA and lateral views | | | | FINDINGS: | | Left apical pneumothorax measuring 1.4 cm. | | | | Bilateral diffuse pulmonary edema. | | | | Likely left basilar atelectasis. | | | | No acute osseous abnormality. Subcutaneous emphysema of the left chest wall. | | | | IMPRESSION: | | Left apical pneumothorax measuring 1.4 cm. Bilateral diffuse pulmonary edema. | | | | | + + POC Glucose (06/24/2017 5:29 AM PDT) + + + + + + | Component | Value | Ref Range | Performed | Pathologist | | | | | At | Signature | + + + + + + | Glucose, | 229 (H)Comment: Testing | 65 - 99 mg/dL | EXTERNAL | | | Fingerstick | performed at [facility];[address] | | LAB | | | | [address];[place] | | | | | | [address] | | | | + + + + + + + + | Specimen | + + | | + + + +---------+ + + | Performing | Address | City/State/Zipcode | Phone Number | | Organization | | | | + +---------+ + + | EXTERNAL LAB | | | | + +---------+ + + External Lab: CBC (06/24/2017 5:07 AM PDT) + + + + + + | Component | Value | Ref Range | Performed | Pathologist | | | | | At | Signature | + + + + + + | WBC | 12.13 (H) | 3.80 - 11.00 | EXTERNAL | | | | | K/uL | LAB | | + + + + + + | Non- | 3.43 (L) | 3.70 - 5.10 | EXTERNAL | | | Red Blood | | M/uL | LAB | | | Cells | | | | | | Counted | | | | | + + + + + + | Hemoglobin | 10.4 (L) | 11.3 - 15.5 | EXTERNAL | | | | | g/dL | LAB | | + + + + + + | Hematocrit, | 29.9 (L) | 34.0 - 46.0 % | EXTERNAL | | | POC | | | LAB | | + + + + + + | MCV | 87.2 | 80.0 - 100.0 fl | EXTERNAL | | | | | | LAB | | + + + + + + | MCH | 30.2 | 27.0 - 34.0 pg | EXTERNAL | | | | | | LAB | | + + + + + + | MCHC | 34.7 | 32.0 - 35.5 | EXTERNAL | | | | | g/dL | LAB | | + + + + + + | RDW-CV | 42.0 | 37 - 53 fl | EXTERNAL | | | | | | LAB | | + + + + + + | Platelet | 253 | 150 - 400 K/uL | EXTERNAL | | | Count | | | LAB | | | Plasma | | | | | + + + + + + | MPV | 9.3 | fl | EXTERNAL | | | | | | LAB | | + + + + + + | Differentia | AUTOMATED | | EXTERNAL | | | l Type | | | LAB | | + + + + + + | % Segmented | 78.83 | % | EXTERNAL | | | | | | LAB | | | Neutrophils | | | | | + + + + + + | % | 12.05 | % | EXTERNAL | | | Lymphocytes | | | LAB | | + + + + + + | % Monocytes | 6.72 | % | EXTERNAL | | | | | | LAB | | + + + + + + | % | 2.25 | % | EXTERNAL | | | Eosinophils | | | LAB | | + + + + + + | % Basophils | 0.15 | % | EXTERNAL | | | | | | LAB | | + + + + + + | Absolute | 9.56 (H) | 1.90 - 7.40 | EXTERNAL | | | Segmented | | K/uL | LAB | | | Neutrophils | | | | | + + + + + + | Absolute | 1.46 | 1.00 - 3.90 | EXTERNAL | | | Lymphocytes | | K/uL | LAB | | + + + + + + | Absolute | 0.82 (H) | 0.00 - 0.80 | EXTERNAL | | | Monocytes | | K/uL | LAB | | + + + + + + | Absolute | 0.27 | 0.00 - 0.50 | EXTERNAL | | | Eosinophils | | K/uL | LAB | | + + + + + + | Absolute | 0.02Comment: Testing | 0.00 - 0.10 | EXTERNAL | | | Basophils | performed at [facility], [address] | K/[address] | LAB | | | | [address], | | | | | | [place] [address] | | | | + + + + + + + + | Specimen | + + | Blood specimen | | (specimen) | + + + +---------+ + + | Performing | Address | City/State/Zipcode | Phone Number | | Organization | | | | + +---------+ + + | EXTERNAL LAB | | | | + +---------+ + + Magnesium (06/24/2017 5:07 AM PDT) + + + + + + | Component | Value | Ref Range | Performed | Pathologist | | | | | At | Signature | + + + + + + | Magnesium | 2.3Comment: Testing | 1.7 - 2.4 mg/dL | EXTERNAL | | | | performed at [facility], [address] | | LAB | | | | [address], | | | | | | [place] [address] | | | | + + + + + + + + | Specimen | + + | Blood specimen | | (specimen) | + + + +---------+ + + | Performing | Address | City/State/Zipcode | Phone Number | | Organization | | | | + +---------+ + + | EXTERNAL LAB | | | | + +---------+ + + Basic Metabolic Panel (06/24/2017 5:07 AM PDT) + + + + + + | Component | Value | Ref Range | Performed | Pathologist | | | | | At | Signature | + + + + + + | Na | 136 | 135 - 145 | EXTERNAL | | | | | mmol/L | LAB | | + + + + + + | K | 3.7 | 3.5 - 4.9 | EXTERNAL | | | | | mmol/L | LAB | | + + + + + + | Cl | 107 | 99 - 109 mmol/L | EXTERNAL | | | | | | LAB | | + + + + + + | CO2 | 25 | 23 - 32 mmol/L | EXTERNAL | | | | | | LAB | | + + + + + + | Anion Gap | 8 | 5 - 20 mmol/L | EXTERNAL | | | | | | LAB | | + + + + + + | Glucose, | 196 (H) | 65 - 99 mg/dL | EXTERNAL | | | Fasting | | | LAB | | + + + + + + | BUN | 21 | 8 - 25 mg/dL | EXTERNAL | | | | | | LAB | | + + + + + + | Creatinine | 0.5 | 0.50 - 1.00 | EXTERNAL | | | | | mg/dL | LAB | | + + + + + + | BUN/Creatin | 42 | | EXTERNAL | | | ine Ratio | | | LAB | | + + + + + + | Calcium | 8.1 (L) | 8.5 - 10.5 | EXTERNAL | | | | | mg/dL | LAB | | + + + [...] [address] | | | | | | [facility], | | | | | | [place] [address] | | | | + + + [...] +---------+ + + Tissue Request For Pathology (06/24/2017 12:00 AM PDT) + + | Specimen | + + | Soft tissue sample | | (specimen) | + + + + + | Narrative | Performed At | + + + | THIS IS AN AMENDED REPORT SPECIMEN(S): A LYMPH NODE, | EXTERNAL LAB | | STATION 9 Lt. SPECIMEN(S): B LYMPH NODE, STATION 10 Lt. SPECIMEN(S): | | | C LYMPH NODE, STATION 5 Lt. SPECIMEN(S): D LYMPH NODE, STATION 7 Lt. | | | SPECIMEN(S): E LYMPH NODE, STATION 6 Lt. SPECIMEN(S): F Lt. LUNG | | | LOWER LOBE SPECIMEN SOURCE: A. LYMPH NODE, STATION 9 Lt. B. | | | LYMPH NODE, STATION 10 Lt. C. LYMPH NODE, STATION 5 Lt. D. LYMPH | | | NODE, STATION 7 Lt. E. LYMPH NODE, STATION 6 Lt. F. Lt. LUNG LOWER | | | LOBE CLINICAL HISTORY: 06/21/2017 at 1326 H. Lung cancer. REASON FOR | | | AMENDMENT: Change to the TNM staging The original report | | | contained the following in the diagnosis, "pT2 pN0". This has been | | | changed to, "pT1c pN0". The remainder of the report is unchanged. | | | FINAL PATHOLOGIC DIAGNOSIS: A. Station 9 lymph nodes, excision: | | | - Two lymph nodes negative for metastatic tumor (0/2). B. | | | Station 10 lymph nodes, excision: - Seven lymph node fragments | | | negative for metastatic tumor (0/7). C. Station 5 lymph nodes, | | | excision: - Six lymph node fragments negative for metastatic | | | tumor (0/6). D. Station 7 lymph node, excision: - One lymph | | | node negative for metastatic tumor (0/1). E. Station 6 lymph | | | nodes, excision: - Three lymph node fragments negative for | | | metastatic tumor (0/3). F. Left lower lobe lung, lobectomy: | | | - Invasive adenocarcinoma with the following features: | | | - Tumor site: Left lower lobe. - Tumor size: 2.6 cm | | | greatest dimension. - Tumor focality: Single tumor. | | | - Histologic type: Mucinous adenocarcinoma. - | | | Histologic grade: Low grade (well differentiated). - | | | Visceral pleural invasion: Present, confirmed by VVG stain. | | | - Lymphovascular invasion: Not identified. - Surgical | | | margins: Uninvolved by invasive carcinoma (tumor measures 2.2 cm from | | | closest stapled margin). - Treatment effect: No known | | | presurgical therapy. - Regional lymph nodes (including | | | specimens A, B, C, D, E and F): - Number of lymph | | | nodes examined: 20. - Number of lymph nodes | | | involved by tumor: 0. - Surgical pathology stage: pT1c | | | pN0. As part of the Technical Services Coordinator Program, this case was | | | reviewed by another member of [employer] Path[facility]. (BES) AMB:rrc: | | | C1NR GROSS DESCRIPTION: Six specimens are received in six | | | containers, labeled with the patient's name: A. Received in | | | formalin designated "left lymph node station 9", consists of 2 | | | red-black soft tissue fragments that measure 0.7 cm and 0.8 cm in | | | greatest dimension. Specimen is entirely submitted in cassette A1. | | | B. Received in formalin designated "left lymph node station 10 ", | | | consists of 7 red-black soft tissue fragments that range in size from | | | 0.5 cm up to 1.1 cm in greatest dimension. Specimen is entirely | | | submitted in cassette B1. C. Received in formalin designated "left | | | lymph node station 5 ", consists of 6 red-black soft tissue fragment | | | syringes are from 0.7 cm up to 1.7 cm in greatest dimension. Specimen | | | is entirely submitted in cassette C1. D. Received in formalin | | | designated "left lymph node station 7 ", consists of one red-black | | | soft tissue fragment that is 1.3 cm in greatest dimension. The | | | specimen is bisected and entirely submitted in cassette D1. E. | | | Received in formalin designated "left lymph node station 6 ", consists | | | of 3 red-poe soft tissue fragments that range in size from 0.4 cm up | | | to 1.6 cm in greatest dimension. Largest tissue is inked and | | | bisected. The specimen is entirely submitted in cassette E1. F. | | | Received in formalin designated "left lung lower lobe ", consists of | | | 13.5 x 10.6 x 7.5 cm lobe of lung. The pleural surface is violaceous | | | and smooth with an area of puckering at the superior aspect measuring | | | 1.0 x 1.0 x 1.0 cm. The pleural surface in this area is inked black. | | | The specimen is serially sectioned to reveal a 2.6 x 2.2 x 1.7 cm pink | | | red partially cystic and ill-defined masses that is associated with | | | the previously described area of pleural puckering. The masses are 3.6 | | | cm from the bronchial resection margin, 3.5 cm from the bronchial | | | vessel resection margins, and 2.2 cm from the closest stapled | | | resection margin. This mass abuts the black inked pleural surface. The | | | uninvolved lung is a pink-red and spongy. One black possible lymph | | | node is a present measuring 0.5 cm in greatest dimension. | | | Ribbon Cleaner sections are submitted in 5 cassettes. Cassette | | | summary: (F1) bronchial resection margin, shave; (F2) bronchial vessel | | | resection margin, shave; (F3) mass to pleural surface; (F4) mass to | | | uninvolved lung; (F5) uninvolved lung and one possible lymph node, | | | submitted whole. FM The gross description section of this report | | | has been prepared using a voice recognition system. The report was | | | reviewed for accuracy, however, sound-alike word errors, addition | | | and/or deletions may occur. If there is any question about this | | | report please contact the originating pathologist. MICROSCOPIC | | | EXAMINATION: A-F. Histologic sections of all submitted blocks are | | | examined by light microscopy. These findings, together with the | | | gross examination, support the pathologic diagnosis. PERFORMING | | | LABORATORY: Professional interpretation and technical preparation was | | | performed by [employer], [facility], [facility] | | | [place] [address] (Telephone Messenger: Sharan | | | Ab Oconnor; [facility]#: [id number]). Diagnostician: Melissa Herrera MD | | | Pathologist Diagnostician: Sharan Oconnor MD Pathologist | | | Electronically Signed 07/25/2017 | | + + + + +---------+ + + | Performing | Address | City/State/Zipcode | Phone Number | | Organization | | | | + +---------+ + + | EXTERNAL LAB | | | | + +---------+ + + POC Glucose (06/23/2017 10:13 PM PDT) + + + + + + | Component | Value | Ref Range | Performed | Pathologist | | | | | At | Signature | + + + + + + | Glucose, | 364 (H)Comment: Testing | 65 - 99 mg/dL | EXTERNAL | | | Fingerstick | performed at [facility];[address] | | LAB | | | | [address];[place], [place] | | | | | | [address] | | | | + + + + + + + + | Specimen | + + | | + + + +---------+ + + | Performing | Address | City/State/Zipcode | Phone Number | | Organization | | | | + +---------+ + + | EXTERNAL LAB | | | | + +---------+ + + POC Glucose (06/23/2017 4:30 PM PDT) + + + + + + | Component | Value | Ref Range | Performed | Pathologist | | | | | At | Signature | + + + + + + | Glucose, | 293 (H)Comment: Testing | 65 - 99 mg/dL | EXTERNAL | | | Fingerstick | performed at [facility];[address] | | LAB | | | | [address];[place] | | | | | | [address] | | | | + + + + + + + + | Specimen | + + | | + + + +---------+ + + | Performing | Address | City/State/Zipcode | Phone Number | | Organization | | | | + +---------+ + + | EXTERNAL LAB | | | | + +---------+ + + POC Glucose (06/23/2017 11:46 AM PDT) + + + + + + | Component | Value | Ref Range | Performed | Pathologist | | | | | At | Signature | + + + + + + | Glucose, | 217 (H)Comment: Testing | 65 - 99 mg/dL | EXTERNAL | | | Fingerstick | performed at [facility];[address] | | LAB | | | | [address];[place] | | | | | | [address] | | | | + + + + + + + + | Specimen | + + | | + + + +---------+ + + | Performing | Address | City/State/Zipcode | Phone Number | | Organization | | | | + +---------+ + + | EXTERNAL LAB | | | | + +---------+ + + POC Glucose (06/23/2017 8:04 AM PDT) + + + + + + | Component | Value | Ref Range | Performed | Pathologist | | | | | At | Signature | + + + + + + | Glucose, | 129 (H)Comment: Testing | 65 - 99 mg/dL | EXTERNAL | | | Fingerstick | performed at [facility];[address] | | LAB | | | [address];[place], [place] | | | | | | [address] | | | | + + + + + + + + | Specimen | + + | | + + + +---------+ + + | Performing | Address | City/State/Zipcode | Phone Number | | Organization | | | | + +---------+ + + | EXTERNAL LAB | | | | + +---------+ + + POC Glucose (06/23/2017 6:59 AM PDT) + + + + + + | Component | Value | Ref Range | Performed | Pathologist | | | | | At | Signature | + + + + + + | Glucose, | 126 (H)Comment: Testing | 65 - 99 mg/dL | EXTERNAL | | | Fingerstick | performed at [facility];[address] | | LAB | | | | [address];[place] | | | | | | [address] | | | | + + + + + + + + | Specimen | + + | | + + + +---------+ + + | Performing | Address | City/State/Zipcode | Phone Number | | Organization | | | | + +---------+ + + | EXTERNAL LAB | | | | + +---------+ + + POC Glucose (06/23/2017 5:59 AM PDT) + + + + + + | Component | Value | Ref Range | Performed | Pathologist | | | | | At | Signature | + + + + + + | Glucose, | 162 (H)Comment: Testing | 65 - 99 mg/dL | EXTERNAL | | | Fingerstick | performed at [facility];[address] | | LAB | | | | [address];[place], [place] | | | | | | [address] | | | | + + + + + + + + | Specimen | + + | | + + + +---------+ + + | Performing | Address | City/State/Zipcode | Phone Number | | Organization | | | | + +---------+ + + | EXTERNAL LAB | | | | + +---------+ + + External Lab: SUSAN (06/23/2017 5:29 AM PDT) + + + + + + | Component | Value | Ref Range | Performed | Pathologist | | | | | At | Signature | + + + + + + | WBC | 12.60 (H) | 3.80 - 11.00 | EXTERNAL | | | | | K/uL | LAB | | + + + + + + | Non- | 4.09 | 3.70 - 5.10 | EXTERNAL | | | Red Blood | | M/uL | LAB | | | Cells | | | | | | Counted | | | | | + + + + + + | Hemoglobin | 12.3 | 11.3 - 15.5 | EXTERNAL | | | | | g/dL | LAB | | + + + + + + | Hematocrit, | 36.2 | 34.0 - 46.0 % | EXTERNAL | | | POC | | | LAB | | + + + + + + | MCV | 88.7 | 80.0 - 100.0 fl | EXTERNAL | | | | | | LAB | | + + + + + + | MCH | 30.0 | 27.0 - 34.0 pg | EXTERNAL | | | | | | LAB | | + + + + + + | MCHC | 33.8 | 32.0 - 35.5 | EXTERNAL | | | | | g/dL | LAB | | + + + + + + | RDW-CV | 42.9 | 37 - 53 fl | EXTERNAL | | | | | | LAB | | + + + + + + | Platelet | 285 | 150 - 400 K/uL | EXTERNAL | | | Count | | | LAB | | | Plasma | | | | | + + + + + + | MPV | 9.5 | fl | EXTERNAL | | | | | | LAB | | + + + + + + | Differentia | AUTOMATED | | EXTERNAL | | | l Type | | | LAB | | + + + + + + | % Segmented | 81.67 | % | EXTERNAL | | | | | | LAB | | | Neutrophils | | | | | + + + + + + | % | 8.73 | % | EXTERNAL | | | Lymphocytes | | | LAB | | + + + + + + | % Monocytes | 7.74 | % | EXTERNAL | | | | | | LAB | | + + + + + + | % | 1.71 | % | EXTERNAL | | | Eosinophils | | | LAB | | + + + + + + | % Basophils | 0.15 | % | EXTERNAL | | | | | | LAB | | + + + + + + | Absolute | 10.29 (H) | 1.90 - 7.40 | EXTERNAL | | | Segmented | | K/uL | LAB | | | Neutrophils | | | | | + + + + + + | Absolute | 1.10 | 1.00 - 3.90 | EXTERNAL | | | Lymphocytes | | K/uL | LAB | | + + + + + + | Absolute | 0.98 (H) | 0.00 - 0.80 | EXTERNAL | | | Monocytes | | K/uL | LAB | | + + + + + + | Absolute | 0.22 | 0.00 - 0.50 | EXTERNAL | | | Eosinophils | | K/uL | LAB | | + + + + + + | Absolute | 0.02Comment: Testing | 0.00 - 0.10 | EXTERNAL | | | Basophils | performed at [facility], [address] | [address] | LAB | | | | [address], | | | | | | [place] [address] | | | | + + + + + + + + | Specimen | + + | Blood specimen | | (specimen) | + + + +---------+ + + | Performing | Address | City/State/Zipcode | Phone Number | | Organization | | | | + +---------+ + + | EXTERNAL LAB | | | | + +---------+ + + Magnesium (06/23/2017 5:29 AM PDT) + + + + + + | Component | Value | Ref Range | Performed | Pathologist | | | | | At | Signature | + + + + + + | Magnesium | 2.4Comment: Testing | 1.7 - 2.4 mg/dL | EXTERNAL | | | | performed at [facility], [address] | | LAB | | | | [address], | | | | | | [place] [address] | | | | + + + + + + + + | Specimen | + + | Blood specimen | | (specimen) | + + + +---------+ + + | Performing | Address | City/State/Zipcode | Phone Number | | Organization | | | | + +---------+ + + | EXTERNAL LAB | | | | + +---------+ + + Hemoglobin A1C (06/23/2017 5:29 AM PDT) + + + + + + | Component | Value | Ref Range | Performed | Pathologist | | | | | At | Signature | + + + + + + | Hemoglobin | 10.9 (H)Comment: The | 4.0 - 6.0 % | EXTERNAL | | | A1c | [employer] | | LAB | | | [...] | | | | | | reference method. | | | | + + + + + + | Glycohemogl | 266Comment: The ADA | mg/dL | EXTERNAL | [...] | | | | | performed at [facility], [address] | | | | | | [facility], | | | | | | [place] [address] | | | | + + + + + + + + | Specimen | + + | Blood specimen | | (specimen) | + + + +---------+ + + | Performing | Address | City/State/Zipcode | Phone Number | | Organization | | | | + +---------+ + + | EXTERNAL LAB | | | | + +---------+ + + Basic Metabolic Panel (06/23/2017 5:29 AM PDT) + + + + + + | Component | Value | Ref Range | Performed | Pathologist | | | | | At | Signature | + + + + + + | Na | 136 | 135 - 145 | EXTERNAL | | | | | mmol/L | LAB | | + + + + + + | K | 4.2 | 3.5 - 4.9 | EXTERNAL | | | | | mmol/L | LAB | | + + + + + + | Cl | 106 | 99 - 109 mmol/L | EXTERNAL | | | | | | LAB | | + + + + + + | CO2 | 22 (L) | 23 - 32 mmol/L | EXTERNAL | | | | | | LAB | | + + + + + + | Anion Gap | 12 | 5 - 20 mmol/L | EXTERNAL | | | | | | LAB | | + + + + + + | Glucose, | 135 (H) | 65 - 99 mg/dL | EXTERNAL | | | Fasting | | | LAB | | + + + + + + | BUN | 28 (H) | 8 - 25 mg/dL | EXTERNAL | | | | | | LAB | | + + + + + + | Creatinine | 0.7 | 0.50 - 1.00 | EXTERNAL | | | | | mg/dL | LAB | | + + + + + + | BUN/Creatin | 40 | | EXTERNAL | | | ine Ratio | | | LAB | | + + + + + + | Calcium | 8.4 (L) | 8.5 - 10.5 | EXTERNAL | | | | | mg/dL | LAB | | + + + [...] [address], | | | | | | [place] [address] | | | | + + + + + + + + | Specimen | + + | Blood specimen | | (specimen) | + + + +---------+ + + | Performing | Address | City/State/Zipcode | Phone Number | | Organization | | | | + +---------+ + + | EXTERNAL LAB | | | | + +---------+ + + POC Glucose (06/23/2017 4:46 AM PDT) + + + + + + | Component | Value | Ref Range | Performed | Pathologist | | | | | At | Signature | + + + + + + | Glucose, | 131 (H)Comment: Testing | 65 - 99 mg/dL | EXTERNAL | | | Fingerstick | performed at [facility];[address] | | LAB | | | | [address];[place] | | | | | | [address] | | | | + + + + + + + + | Specimen | + + | | + + + +---------+ + + | Performing | Address | City/State/Zipcode | Phone Number | | Organization | | | | + +---------+ + + | EXTERNAL LAB | | | | + +---------+ + + POC Glucose (06/23/2017 3:45 AM PDT) + + + + + + | Component | Value | Ref Range | Performed | Pathologist | | | | | At | Signature | + + + + + + | Glucose, | 178 (H)Comment: Testing | 65 - 99 mg/dL | EXTERNAL | | | Fingerstick | performed at [facility];[address] | | LAB | | | | [facility];[place], [place] | | | | | | [address] | | | | + + + + + + + + | Specimen | + + | | + + + +---------+ + + | Performing | Address | City/State/Zipcode | Phone Number | | Organization | | | | + +---------+ + + | EXTERNAL LAB | | | | + +---------+ + + XR Chest 1 Vw (06/23/2017 2:16 AM PDT) + + | Specimen | + + | | + + + + + | Impressions | Performed At | + + + | 1. The patient is again noted to be status post left lobectomy | | | with left chest drain in stable position. Stable opacification of the | | | left hemithorax. 2. Slight interval decrease in opacification of | | | the right hemithorax, likely representing decreasing pulmonary | | | vascular congestion/decreasing pulmonary edema. 3. No pleural | | | effusion. No pneumothorax RADIA Electronically signed by | | | Joshua Waite MD on Jun 23 2017 3:38AM Referring Provider Line: | | | [phone] ID: [id number] | | + + + + + + | Narrative | Performed At | + + + | EXAM: CHEST RADIOGRAPHY EXAM DATE: 06/23/2017 02:17 AM. | | | CLINICAL HISTORY: Thoracic postoperative study COMPARISON: | | | Radiograph chest 06/22/2017 TECHNIQUE: 1 view. FINDINGS: The | | | patient is again noted to be status post left lobectomy with left | | | chest drain in stable position. Stable opacification of the left | | | hemithorax. Slight interval decrease in opacification of the right | | | hemithorax, likely representing decreasing pulmonary vascular | | | congestion/decreasing pulmonary edema. No pleural effusion. No | | | pneumothorax. Stable appearance of the cardiomediastinal | | | silhouette. Stable appearance of the osseous structures. | | + + + + + | Procedure Note | + + | Meir, Rad Conversion - 10/15/2018 11:00 AM PDT EXAM:CHEST RADIOGRAPHY EXAM DATE: | | 06/23/2017 02:17 AM. CLINICAL HISTORY: Thoracic postoperative study COMPARISON: | | Radiograph chest 06/22/2017 TECHNIQUE: 1 view. FINDINGS:The patient is again noted to be | | status post left lobectomy with left chest drain in stable position. Stable | | opacification of the left hemithorax. Slight interval decrease in opacification of the | | right hemithorax, likely representing decreasing pulmonary vascular | | congestion/decreasing pulmonary edema. No pleural effusion. No pneumothorax. Stable | | appearance of the cardiomediastinal silhouette. Stable appearance of the osseous | | structures. IMPRESSION: 1. The patient is again noted to be status post left lobectomy | | with left chest drain in stable position. Stable opacification of the left hemithorax. | | 2. Slight interval decrease in opacification of the right hemithorax, likely | | representing decreasing pulmonary vascular congestion/decreasing pulmonary edema. 3. No | | pleural effusion. No pneumothorax RADIA Electronically signed by Joshua Waite MD on | | Jun 23 2017 3:38AM Referring Provider Line: [phone] ID: [id number] | | vascular congestion/decreasing pulmonary edema. No pleural effusion. No pneumothorax. | | | |Stable appearance of the cardiomediastinal silhouette. Stable appearance of the osseous str uctures. | | | |IMPRESSION: | | | |1. The patient is again noted to be status post left lobectomy with left chest drain in sta ble position. Stable opacification of the left hemithorax. | | | |2. Slight interval decrease in opacification of the right hemithorax, likely representing d ecreasing pulmonary vascular congestion/decreasing pulmonary edema. | | | |3. No pleural effusion. No pneumothorax | | | |RADIA | | | | Electronically signed by Joshua Waite MD on Jun 23 2017 3:38AM Referring Provider Nandini e: [phone] ID: [id number] | + + POC Glucose (06/23/2017 1:17 AM PDT) + + + + + + | Component | Value | Ref Range | Performed | Pathologist | | | | | At | Signature | + + + + + + | Glucose, | 120 (H)Comment: Testing | 65 - 99 mg/dL | EXTERNAL | | | Fingerstick | performed at [facility];[address] | | LAB | | | | [address];[place], [place] | | | | | | [address] | | | | + + + + + + + + | Specimen | + + | | + + + +---------+ + + | Performing | Address | City/State/Zipcode | Phone Number | | Organization | | | | + +---------+ + + | EXTERNAL LAB | | | | + +---------+ + + POC Glucose (06/22/2017 11:19 PM PDT) + + + + + + | Component | Value | Ref Range | Performed | Pathologist | | | | | At | Signature | + + + + + + | Glucose, | 137 (H)Comment: Testing | 65 - 99 mg/dL | EXTERNAL | | | Fingerstick | performed at [facility];[address] | | LAB | | | | [address];[place] | | | | | | [address] | | | | + + + + + + + + | Specimen | + + | | + + + +---------+ + + | Performing | Address | City/State/Zipcode | Phone Number | | Organization | | | | + +---------+ + + | EXTERNAL LAB | | | | + +---------+ + + POC Glucose (06/22/2017 10:15 PM PDT) + + + + + + | Component | Value | Ref Range | Performed | Pathologist | | | | | At | Signature | + + + + + + | Glucose, | 117 (H)Comment: Testing | 65 - 99 mg/dL | EXTERNAL | | | Fingerstick | performed at [facility];[address] | | LAB | | | | [address];[place], [place] | | | | | | [address] | | | | + + + + + + + + | Specimen | + + | | + + + +---------+ + + | Performing | Address | City/State/Zipcode | Phone Number | | Organization | | | | + +---------+ + + | EXTERNAL LAB | | | | + +---------+ + + POC Glucose (06/22/2017 9:09 PM PDT) + + + + + + | Component | Value | Ref Range | Performed | Pathologist | | | | | At | Signature | + + + + + + | Glucose, | 130 (H)Comment: Testing | 65 - 99 mg/dL | EXTERNAL | | | Fingerstick | performed at [facility];[address] | | LAB | | | | [address];[place], [place] | | | | | | [address] | | | | + + + + + + + + | Specimen | + + | | + + + +---------+ + + | Performing | Address | City/State/Zipcode | Phone Number | | Organization | | | | + +---------+ + + | EXTERNAL LAB | | | | + +---------+ + + POC Glucose (06/22/2017 8:08 PM PDT) + + + + + + | Component | Value | Ref Range | Performed | Pathologist | | | | | At | Signature | + + + + + + | Glucose, | 179 (H)Comment: Testing | 65 - 99 mg/dL | EXTERNAL | | | Fingerstick | performed at [facility];[address] | | LAB | | | | [address];[place] | | | | | | [address] | | | | + + + + + + + + | Specimen | + + | | + + + +---------+ + + | Performing | Address | City/State/Zipcode | Phone Number | | Organization | | | | + +---------+ + + | EXTERNAL LAB | | | | + +---------+ + + POC Glucose (06/22/2017 7:11 PM PDT) + + + + + + | Component | Value | Ref Range | Performed | Pathologist | | | | | At | Signature | + + + + + + | Glucose, | 200 (H)Comment: Testing | 65 - 99 mg/dL | EXTERNAL | | | Fingerstick | performed at [facility];[address] | | LAB | | | | [address];[place] | | | | | | [address] | | | | + + + + + + + + | Specimen | + + | | + + + +---------+ + + | Performing | Address | City/State/Zipcode | Phone Number | | Organization | | | | + +---------+ + + | EXTERNAL LAB | | | | + +---------+ + + POC Glucose (06/22/2017 5:57 PM PDT) + + + + + + | Component | Value | Ref Range | Performed | Pathologist | | | | | At | Signature | + + + + + + | Glucose, | 144 (H)Comment: Testing | 65 - 99 mg/dL | EXTERNAL | | | Fingerstick | performed at [facility];[address] | | LAB | | | | [address];[place] | | | | | | [address] | | | | + + + + + + + + | Specimen | + + | | + + + +---------+ + + | Performing | Address | City/State/Zipcode | Phone Number | | Organization | | | | + +---------+ + + | EXTERNAL LAB | | | | + +---------+ + + POC Glucose (06/22/2017 5:16 PM PDT) + + + + + + | Component | Value | Ref Range | Performed | Pathologist | | | | | At | Signature | + + + + + + | Glucose, | 172 (H)Comment: Testing | 65 - 99 mg/dL | EXTERNAL | | | Fingerstick | performed at [facility];[address] | | LAB | | | | [address];[place], [place] | | | | | | [address] | | | | + + + + + + + + | Specimen | + + | | + + + +---------+ + + | Performing | Address | City/State/Zipcode | Phone Number | | Organization | | | | + +---------+ + + | EXTERNAL LAB | | | | + +---------+ + + POC Glucose (06/22/2017 4:11 PM PDT) + + + + + + | Component | Value | Ref Range | Performed | Pathologist | | | | | At | Signature | + + + + + + | Glucose, | 168 (H)Comment: Testing | 65 - 99 mg/dL | EXTERNAL | | | Fingerstick | performed at [facility];[address] | | LAB | | | | [address];[place], [place] | | | | | | [address] | | | | + + + + + + + + | Specimen | + + | | + + + +---------+ + + | Performing | Address | City/State/Zipcode | Phone Number | | Organization | | | | + +---------+ + + | EXTERNAL LAB | | | | + +---------+ + + Culture, Urine (06/22/2017 3:37 PM PDT) + + | Specimen | + + | | + + + + + | Narrative | Performed At | + + + | Specimen Description URINE, COLLECTION NOT | EXTERNAL LAB | | GIVEN SPECIAL REQUESTS REFLEX UAIF | | | CULTURE NO GROWTH | | + + + + +---------+ + + | Performing | Address | City/State/Zipcode | Phone Number | | Organization | | | | + +---------+ + + | EXTERNAL LAB | | | | + +---------+ + + Urinalysis, Reflex Microscopic and/or Culture (06/22/2017 3:37 PM PDT) + + + + + + | Component | Value | Ref Range | Performed | Pathologist | | | | | At | Signature | + + + + + + | Color | YELLOW | | EXTERNAL | | | | | | LAB | | + + + + + + | Clarity, | HAZY | | EXTERNAL | | | Urine | | | LAB | | + + + + + + | Specific | 1.019 | 1.002 - 1.030 | EXTERNAL | | | [place], | | | LAB | | | Urine | | | | | + + + + + + | Leukocyte | NEGATIVE | | EXTERNAL | | | Esterase, | | | LAB | | | Urine | | | | | + + + + + + | Nitrite, | NEGATIVE | | EXTERNAL | | | Urine | | | LAB | | + + + + + + | Urobilinoge | NORMAL | mg/dL | EXTERNAL | | | n, Urine | | | LAB | | + + + + + + | Protein, | NEGATIVE | mg/dL | EXTERNAL | | | Urine | | | LAB | | + + + + + + | pH, Urine | 5.0 | 5.0 - 8.0 | EXTERNAL | | | | | | LAB | | + + + + + + | Blood, | LARGE (A) | | EXTERNAL | | | Urine | | | LAB | | + + + + + + | Ketones | NEGATIVE | mg/dL | EXTERNAL | | | | | | LAB | | + + + + + + | Bilirubin, | NEGATIVE | | EXTERNAL | | | Urine | | | LAB | | + + + + + + | Glucose, | 50 (A)Comment: Testing | mg/dL | EXTERNAL | | | Urine | performed at [facility], [address] | | LAB | | | | [address], | | | | | | [place] [address] | | | | + + + + + + + + | Specimen | + + | | + + + +---------+ + + | Performing | Address | City/State/Zipcode | Phone Number | | Organization | | | | + +---------+ + + | EXTERNAL LAB | | | | + +---------+ + + Urinalysis, Microscopic Only (06/22/2017 3:37 PM PDT) + + + + + + | Component | Value | Ref Range | Performed | Pathologist | | | | | At | Signature | + + + + + + | WBC, UA | 6-10 | 0 - 5 /hpf | EXTERNAL | | | | | | LAB | | + + + + + + | RBC, UA | >100 | 0 - 5 /hpf | EXTERNAL | | | | | | LAB | | + + + + + + | Epithelial | 26-49 | /lpf | EXTERNAL | | | Cells | | | LAB | | + + + + + + | Bacteria, | NONE SEENComment: | | EXTERNAL | | | UA | CULTURE TO FOLLOW | | LAB | | + + + + + + | Transitiona | 0-2 | /hpf | EXTERNAL | | | l squamous | | | LAB | | | epithelia, | | | | | | UA | | | | | + + + + + + | Mucus, | 1+Comment: Testing | | EXTERNAL | | | Urine | performed at [facility], [address] | | LAB | | | | [address], | | | | | | [place] [address] | | | | + + + + + + + + | Specimen | + + | | + + + +---------+ + + | Performing | Address | City/State/Zipcode | Phone Number | | Organization | | | | + +---------+ + + | EXTERNAL LAB | | | | + +---------+ + + POC Glucose (06/22/2017 2:56 PM PDT) + + + + + + | Component | Value | Ref Range | Performed | Pathologist | | | | | At | Signature | + + + + + + | Glucose, | 145 (H)Comment: Testing | 65 - 99 mg/dL | EXTERNAL | | | Fingerstick | performed at [facility];[address] | | LAB | | | | [address];[place] | | | | | | [address] | | | | + + + + + + + + | Specimen | + + | | + + + +---------+ + + | Performing | Address | City/State/Zipcode | Phone Number | | Organization | | | | + +---------+ + + | EXTERNAL LAB | | | | + +---------+ + + POC Glucose (06/22/2017 1:58 PM PDT) + + + + + + | Component | Value | Ref Range | Performed | Pathologist | | | | | At | Signature | + + + + + + | Glucose, | 136 (H)Comment: Testing | 65 - 99 mg/dL | EXTERNAL | | | Fingerstick | performed at [facility];[address] | | LAB | | | | [address];[place] | | | | | | [address] | | | | + + + + + + + + | Specimen | + + | | + + + +---------+ + + | Performing | Address | City/State/Zipcode | Phone Number | | Organization | | | | + +---------+ + + | EXTERNAL LAB | | | | + +---------+ + + POC Glucose (06/22/2017 12:47 PM PDT) + + + + + + | Component | Value | Ref Range | Performed | Pathologist | | | | | At | Signature | + + + + + + | Glucose, | 161 (H)Comment: Testing | 65 - 99 mg/dL | EXTERNAL | | | Fingerstick | performed at [facility];[address] | | LAB | | | | [address];[place], [place] | | | | | | [address] | | | | + + + + + + + + | Specimen | + + | | + + + +---------+ + + | Performing | Address | City/State/Zipcode | Phone Number | | Organization | | | | + +---------+ + + | EXTERNAL LAB | | | | + +---------+ + + POC Glucose (06/22/2017 11:43 AM PDT) + + + + + + | Component | Value | Ref Range | Performed | Pathologist | | | | | At | Signature | + + + + + + | Glucose, | 167 (H)Comment: Testing | 65 - 99 mg/dL | EXTERNAL | | | Fingerstick | performed at [facility];[address] | | LAB | | | | [address];[place] | | | | | | [address] | | | | + + + + + + + + | Specimen | + + | | + + + +---------+ + + | Performing | Address | City/State/Zipcode | Phone Number | | Organization | | | | + +---------+ + + | EXTERNAL LAB | | | | + +---------+ + + POC Glucose (06/22/2017 7:42 AM PDT) + + + + + + | Component | Value | Ref Range | Performed | Pathologist | | | | | At | Signature | + + + + + + | Glucose, | 292 (H)Comment: Testing | 65 - 99 mg/dL | EXTERNAL | | | Fingerstick | performed at [facility];[address] | | LAB | | | | [address] [facility];[place], [place] | | | | | | [address] | | | | + + + + + + + + | Specimen | + + | | + + + +---------+ + + | Performing | Address | City/State/Zipcode | Phone Number | | Organization | | | | + +---------+ + + | EXTERNAL LAB | | | | + +---------+ + + XR Chest 1 Vw (06/22/2017 6:29 AM PDT) + + | Specimen | + + | | + + + + + | Impressions | Performed At | + + + | 1. Postoperative changes of left lobectomy with life support | | | devices unchanged in position. 2. Persistent airspace densities | | | left hemithorax, unchanged. | | + + + + + + | Narrative | Performed At | + + + | NANCY TERRAZAS XR CHEST 1 VIEW 06/22/2017 6:29 AM History: | | | 46 years. Female. Postop thoracotomy Technique: AP supine | | | portable view of the chest at 0627 hours. Compared to 1430 hours | | | yesterday. Findings: Left pleural drain angle towards the left | | | lung apex is unchanged in position. No significant effusion or | | | pneumothorax. The patchy airspace density projected over the left | | | hemithorax appears unchanged persistent mild pulmonary vascular | | | prominence in the right hemithorax no segmental infiltrate. | | + + + + --+ | Procedure Note | + --+ | Meir, Ross Conversion - 10/15/2018 11:00 AM PDT NANCY NOBLE CHEST 1 | | VIEW06/22/2017 6:29 AM History: 46 years. Female. Postop thoracotomy Technique: AP | | supine portable view of the chest at 0627 hours. Compared to 1430 hours yesterday. | | Findings: Left pleural drain angle towards the left lung apex is unchanged in position. | | No significant effusion or pneumothorax.The patchy airspace density projected over the | | left hemithorax appears unchanged persistent mild pulmonary vascular prominence in the | | right hemithorax no segmental infiltrate. IMPRESSION: 1. Postoperative changes of left | | lobectomy with life support devices unchanged in position.2. Persistent airspace | | densities left hemithorax, unchanged. Electronically signed by Aurelio Espinal MD on | | 06/22/2017 7:31 AM | | | |IMPRESSION: | |1. Postoperative changes of left lobectomy with life support devices unchanged in position . | |2. Persistent airspace densities left hemithorax, unchanged. | | | | | + --+ External Lab: CBC (06/22/2017 4:24 AM PDT) + + + + + + | Component | Value | Ref Range | Performed | Pathologist | | | | | At | Signature | + + + + + + | WBC | 19.39 (H) | 3.80 - 11.00 | EXTERNAL | | | | | K/uL | LAB | | + + + + + + | Non- | 4.58 | 3.70 - 5.10 | EXTERNAL | | | Red Blood | | M/uL | LAB | | | Cells | | | | | | Counted | | | | | + + + + + + | Hemoglobin | 13.8 | 11.3 - 15.5 | EXTERNAL | | | | | g/dL | LAB | | + + + + + + | Hematocrit, | 40.9 | 34.0 - 46.0 % | EXTERNAL | | | POC | | | LAB | | + + + + + + | MCV | 89.2 | 80.0 - 100.0 fl | EXTERNAL | | | | | | LAB | | + + + + + + | MCH | 30.1 | 27.0 - 34.0 pg | EXTERNAL | | | | | | LAB | | + + + + + + | MCHC | 33.7 | 32.0 - 35.5 | EXTERNAL | | | | | g/dL | LAB | | + + + + + + | RDW-CV | 44.2 | 37 - 53 fl | EXTERNAL | | | | | | LAB | | + + + + + + | Platelet | 301 | 150 - 400 K/uL | EXTERNAL | | | Count | | | LAB | | | Plasma | | | | | + + + + + + | MPV | 9.6 | fl | EXTERNAL | | | | | | LAB | | + + + + + + | Differentia | AUTOMATED | | EXTERNAL | | | l Type | | | LAB | | + + + + + + | % Segmented | 77.90 | % | EXTERNAL | | | | | | LAB | | | Neutrophils | | | | | + + + + + + | % | 12.81 | % | EXTERNAL | | | Lymphocytes | | | LAB | | + + + + + + | % Monocytes | 8.81 | % | EXTERNAL | | | | | | LAB | | + + + + + + | % | 0.09 | % | EXTERNAL | | | Eosinophils | | | LAB | | + + + + + + | % Basophils | 0.39 | % | EXTERNAL | | | | | | LAB | | + + + + + + | Absolute | 15.11 (H) | 1.90 - 7.40 | EXTERNAL | | | Segmented | | K/uL | LAB | | | Neutrophils | | | | | + + + + + + | Absolute | 2.48 | 1.00 - 3.90 | EXTERNAL | | | Lymphocytes | | K/uL | LAB | | + + + + + + | Absolute | 1.71 (H) | 0.00 - 0.80 | EXTERNAL | | | Monocytes | | K/uL | LAB | | + + + + + + | Absolute | 0.02 | 0.00 - 0.50 | EXTERNAL | | | Eosinophils | | K/uL | LAB | | + + + + + + | Absolute | 0.08Comment: Testing | 0.00 - 0.10 | EXTERNAL | | | Basophils | performed at [facility], [address] | K[address] | LAB | | | | [address], | | | | | | [place] [address] | | | | + + + + + + + + | Specimen | + + | Blood specimen | | (specimen) | + + + +---------+ + + | Performing | Address | City/State/Zipcode | Phone Number | | Organization | | | | + +---------+ + + | EXTERNAL LAB | | | | + +---------+ + + Magnesium (06/22/2017 4:24 AM PDT) + + + + + + | Component | Value | Ref Range | Performed | Pathologist | | | | | At | Signature | + + + + + + | Magnesium | 1.9Comment: Testing | 1.7 - 2.4 mg/dL | EXTERNAL | | | | performed at [facility], [address] | | LAB | | | | [address], | | | | | | [place] [address] | | | | + + + + + + + + | Specimen | + + | Blood specimen | | (specimen) | + + + +---------+ + + | Performing | Address | City/State/Zipcode | Phone Number | | Organization | | | | + +---------+ + + | EXTERNAL LAB | | | | + +---------+ + + Basic Metabolic Panel (06/22/2017 4:24 AM PDT) + + + + + + | Component | Value | Ref Range | Performed | Pathologist | | | | | At | Signature | + + + + + + | Na | 134 (L) | 135 - 145 | EXTERNAL | | | | | mmol/L | LAB | | + + + + + + | K | 5.0 (H) | 3.5 - 4.9 | EXTERNAL | | | | | mmol/L | LAB | | + + + + + + | Cl | 103 | 99 - 109 mmol/L | EXTERNAL | | | | | | LAB | | + + + + + + | CO2 | 20 (L) | 23 - 32 mmol/L | EXTERNAL | | | | | | LAB | | + + + + + + | Anion Gap | 16 | 5 - 20 mmol/L | EXTERNAL | | | | | | LAB | | + + + + + + | Glucose, | 320 (H) | 65 - 99 mg/dL | EXTERNAL | | | Fasting | | | LAB | | + + + + + + | BUN | 30 (H) | 8 - 25 mg/dL | EXTERNAL | | | | | | LAB | | + + + + + + | Creatinine | 0.9 | 0.50 - 1.00 | EXTERNAL | | | | | mg/dL | LAB | | + + + + + + | BUN/Creatin | 33 | | EXTERNAL | | | ine Ratio | | | LAB | | + + + + + + | Calcium | 8.5 | 8.5 - 10.5 | EXTERNAL | | | | | mg/dL | LAB | | + + + [...] [address], | | | | | | [place] [address] | | | | + + + + + + + + | Specimen | + + | Blood specimen | | (specimen) | + + + +---------+ + + | Performing | Address | City/State/Zipcode | Phone Number | | Organization | | | | + +---------+ + + | EXTERNAL LAB | | | | + +---------+ + + POC Glucose (06/22/2017 4:19 AM PDT) + + + + + + | Component | Value | Ref Range | Performed | Pathologist | | | | | At | Signature | + + + + + + | Glucose, | 301 (H)Comment: Testing | 65 - 99 mg/dL | EXTERNAL | | | Fingerstick | performed at [facility];[address] | | LAB | | | | [address];[place] | | | | | | [address] | | | | + + + + + + + + | Specimen | + + | | + + + +---------+ + + | Performing | Address | City/State/Zipcode | Phone Number | | Organization | | | | + +---------+ + + | EXTERNAL LAB | | | | + +---------+ + + POC Glucose (06/21/2017 9:13 PM PDT) + + + + + + | Component | Value | Ref Range | Performed | Pathologist | | | | | At | Signature | + + + + + + | Glucose, | 371 (H)Comment: Testing | 65 - 99 mg/dL | EXTERNAL | | | Fingerstick | performed at [facility];[address] | | LAB | | | | [address];[place] | | | | | | [address] | | | | + + + + + + + + | Specimen | + + | | + + + +---------+ + + | Performing | Address | City/State/Zipcode | Phone Number | | Organization | | | | + +---------+ + + | EXTERNAL LAB | | | | + +---------+ + + External Lab: CBC (06/21/2017 5:14 PM PDT) + + + + + + | Component | Value | Ref Range | Performed | Pathologist | | | | | At | Signature | + + + + + + | WBC | 33.02 ()Comment: | 3.80 - 11.00 | EXTERNAL | | | | CALLED NURSING | K/uL | LAB | | | | UNITRESULT READ BACK | | | | | | BY:NICOLLE/PAVITHRA P | | | | | | @17:41, MYV | | | | | | | | | | + + + + + + | Non- | 5.18 (H) | 3.70 - 5.10 | EXTERNAL | | | Red Blood | | M/uL | LAB | | | Cells | | | | | | Counted | | | | | + + + + + + | Hemoglobin | 14.8 | 11.3 - 15.5 | EXTERNAL | | | | | g/dL | LAB | | + + + + + + | Hematocrit, | 46.2 (H) | 34.0 - 46.0 % | EXTERNAL | | | POC | | | LAB | | + + + + + + | MCV | 89.2 | 80.0 - 100.0 fl | EXTERNAL | | | | | | LAB | | + + + + + + | MCH | 28.6 | 27.0 - 34.0 pg | EXTERNAL | | | | | | LAB | | + + + + + + | MCHC | 32.1 | 32.0 - 35.5 | EXTERNAL | | | | | g/dL | LAB | | + + + + + + | RDW-CV | 42.4 | 37 - 53 fl | EXTERNAL | | | | | | LAB | | + + + + + + | Platelet | 318 | 150 - 400 K/uL | EXTERNAL | | | Count | | | LAB | | | Plasma | | | | | + + + + + + | MPV | 9.5 | fl | EXTERNAL | | | | | | LAB | | + + + + + + | Differentia | MANUAL | | EXTERNAL | | | l Type | | | LAB | | + + + + + + | Segmented | 84 | % | EXTERNAL | | | Neutrophils | | | LAB | | | Manual | | | | | + + + + + + | % Bands | 6 | % | EXTERNAL | | | | | | LAB | | + + + + + + | Lymphocytes | 5 | % | EXTERNAL | | | Manual | | | LAB | | + + + + + + | Monocytes | 5 | % | EXTERNAL | | | Manual | | | LAB | | + + + + + + | Absolute | 27.74 (H) | 1.90 - 7.40 | EXTERNAL | | | Neutrophils | | K/uL | LAB | | + + + + + + | Bands | 1.98 (H) | 0.00 - 0.20 | EXTERNAL | | | Manual | | K/uL | LAB | | + + + + + + | Absolute | 1.65 | 1.00 - 3.90 | EXTERNAL | | | Lymphocytes | | K/uL | LAB | | + + + + + + | Absolute | 1.65 (H) | 0.00 - 0.80 | EXTERNAL | | | Monocytes | | K/uL | LAB | | + + + + + + | RBC | NORMAL | | EXTERNAL | | | Morphology | | | LAB | | + + + + + + | Differentia | PLATELETS CLUMPED, | | EXTERNAL | | | l Comments | APPEAR ADEQUATEComment: | | LAB | | | | Testing performed at | | | | | | [facility];[address] | [address] | | [address];[place] [address] | | | | + + + + + + + + | Specimen | + + | Blood specimen | | (specimen) | + + + +---------+ + + | Performing | Address | City/State/Zipcode | Phone Number | | Organization | | | | + +---------+ + + | EXTERNAL LAB | | | | + +---------+ + + Magnesium (06/21/2017 5:14 PM PDT) + + + + + + | Component | Value | Ref Range | Performed | Pathologist | | | | | At | Signature | + + + + + + | Magnesium | 1.9Comment: Testing | 1.7 - 2.4 mg/dL | EXTERNAL | | | | performed at [facility];[address] | | LAB | | | | [address];[place] | | | | | | [address] | | | | + + + + + + + + | Specimen | + + | Blood specimen | | (specimen) | + + + +---------+ + + | Performing | Address | City/State/Zipcode | Phone Number | | Organization | | | | + +---------+ + + | EXTERNAL LAB | | | | + +---------+ + + Basic Metabolic Panel (06/21/2017 5:14 PM PDT) + + + + + + | Component | Value | Ref Range | Performed | Pathologist | | | | | At | Signature | + + + + + + | Na | 136 | 135 - 145 | EXTERNAL | | | | | mmol/L | LAB | | + + + + + + | K | 5.8 (H) | 3.5 - 4.9 | EXTERNAL | | | | | mmol/L | LAB | | + + + + + + | Cl | 106 | 99 - 109 mmol/L | EXTERNAL | | | | | | LAB | | + + + + + + | CO2 | 20 (L) | 23 - 32 mmol/L | EXTERNAL | | | | | | LAB | | + + + + + + | Anion Gap | 15 | 5 - 20 mmol/L | EXTERNAL | | | | | | LAB | | + + + + + + | Glucose, | 335 (H) | 65 - 99 mg/dL | EXTERNAL | | | Fasting | | | LAB | | + + + + + + | BUN | 31 (H) | 8 - 25 mg/dL | EXTERNAL | | | | | | LAB | | + + + + + + | Creatinine | 1.2 (H) | 0.50 - 1.00 | EXTERNAL | | | | | mg/dL | LAB | | + + + + + + | BUN/Creatin | 26 | | EXTERNAL | | | ine Ratio | | | LAB | | + + + + + + | Calcium | 8.6 | 8.5 - 10.5 | EXTERNAL | | | | | mg/dL | LAB | | + + + + + + | Estimated | 51 (L)Comment: GFR <60: | mL/min/1.73m2 | EXTERNAL | [...] | | | | | | at [facility];[address] [place] [address] | | | | | | [facility];[place] [address] | | | | + + + + + + + + | Specimen | + + | Blood specimen | | (specimen) | + + + +---------+ + + | Performing | Address | City/State/Zipcode | Phone Number | | Organization | | | | + +---------+ + + | EXTERNAL LAB | | | | + +---------+ + + POC Glucose (06/21/2017 5:05 PM PDT) + + + + + + | Component | Value | Ref Range | Performed | Pathologist | | | | | At | Signature | + + + + + + | Glucose, | 316 (H)Comment: Testing | 65 - 99 mg/dL | EXTERNAL | | | Fingerstick | performed at [facility];[address] | | LAB | | | | [address];[place] | | | | | | [address] | | | | + + + + + + + + | Specimen | + + | | + + + +---------+ + + | Performing | Address | City/State/Zipcode | Phone Number | | Organization | | | | + +---------+ + + | EXTERNAL LAB | | | | + +---------+ + + XR Chest 1 Vw (06/21/2017 2:35 PM PDT) + + | Specimen | + + | | + + + + + | Impressions | Performed At | + + + | Left chest tube in expected position. Residual small left | | | pneumothorax. Pulmonary edema. Possible left associated atelectasis. | | | | | + + + + + + | Narrative | Performed At | + + + | NANCY TERRAZAS 1970 46 years XR CHEST 1 VIEW 06/21/2017 | | | 2:19 PM INDICATION: Left lobectomy. COMPARISON: April 25 | | | 2017 TECHNIQUE: Chest 1 view, AP view of the chest FINDINGS: | | | Left chest tube overlying the pleural space with the tip near the lung | | | apex. Small residual lower pneumothorax. Diffuse airspace | | | disease of the residual left lung, may represent edema or atelectasis. | | | No dense lung consolidation of the right lung. There is right | | | interstitial edema and pulmonary vascular congestion. No acute | | | osseous abnormality. | | + + + + + | Procedure Note | + + | Ross Worley Conversion - 10/15/2018 11:00 AM ROGE [id number] yearsXR | | CHEST 1 VIEW06/21/2017 2:19 PM INDICATION: Left lobectomy. COMPARISON: April 25, 2017 | | TECHNIQUE: Chest 1 view, AP view of the chest FINDINGS:Left chest tube overlying the | | pleural space with the tip near the lung apex. Small residual lower pneumothorax. | | Diffuse airspace disease of the residual left lung, may represent edema or atelectasis. | | No dense lung consolidation of the right lung. There is right interstitial edema and | | pulmonary vascular congestion. No acute osseous abnormality. IMPRESSION: Left chest | | tube in expected position. Residual small left pneumothorax. Pulmonary edema. Possible | | left associated atelectasis. | | PM | |TECHNIQUE: Chest 1 view, AP view of the chest | | | |FINDINGS: | |Left chest tube overlying the pleural space with the tip near the lung apex. | | | |Small residual lower pneumothorax. | | | |Diffuse airspace disease of the residual left lung, may represent edema or atelectasis. | | | |No dense lung consolidation of the right lung. There is right interstitial edema and pulmon shante vascular congestion. | | | |No acute osseous abnormality. | | | |IMPRESSION: | | | |Left chest tube in expected position. Residual small left pneumothorax. Pulmonary edema. Po ssible left associated atelectasis. | | | | | + + POC Glucose (06/21/2017 2:04 PM PDT) + + + + + + | Component | Value | Ref Range | Performed | Pathologist | | | | | At | Signature | + + + + + + | Glucose, | 186 (H)Comment: Testing | 65 - 99 mg/dL | EXTERNAL | | | Fingerstick | performed at [facility];[address] | | LAB | | | [address];[place], [place] | | | | | | [address] | | | | + + + + + + + + | Specimen | + + | | + + + +---------+ + + | Performing | Address | City/State/Zipcode | Phone Number | | Organization | | | | + +---------+ + + | EXTERNAL LAB | | | | + +---------+ + + POC Glucose (06/21/2017 12:52 PM PDT) + + + + + + | Component | Value | Ref Range | Performed | Pathologist | | | | | At | Signature | + + + + + + | Glucose, | 226 (H)Comment: Testing | 65 - 99 mg/dL | EXTERNAL | | | Fingerstick | performed at [facility];[address] | | LAB | | | | [address];[place], [place] | | | | | | [id number] | | | | + + + + + + + + | Specimen | + + | | + + + +---------+ + + | Performing | Address | City/State/Zipcode | Phone Number | | Organization | | | | + +---------+ + + | EXTERNAL LAB | | | | + +---------+ + + POC Glucose (06/21/2017 12:24 PM PDT) + + + + + + | Component | Value | Ref Range | Performed | Pathologist | | | | | At | Signature | + + + + + + | Glucose, | 222 (H)Comment: Testing | 65 - 99 mg/dL | EXTERNAL | | | Fingerstick | performed at [facility];[address] | | LAB | | | | [address];[place] | | | | | | [id number] | | | | + + + + + + + + | Specimen | + + | | + + + +---------+ + + | Performing | Address | City/State/Zipcode | Phone Number | | Organization | | | | + +---------+ + + | EXTERNAL LAB | | | | + +---------+ + + POC Glucose (06/21/2017 11:09 AM PDT) + + + + + + | Component | Value | Ref Range | Performed | Pathologist | | | | | At | Signature | + + + + + + | Glucose, | 238 (H)Comment: Testing | 65 - 99 mg/dL | EXTERNAL | | | Fingerstick | performed at [facility];[address] | | LAB | | | | [address];[place] | | | | | | [id number] | | | | + + + + + + + + | Specimen | + + | | + + + +---------+ + + | Performing | Address | City/State/Zipcode | Phone Number | | Organization | | | | + +---------+ + + | EXTERNAL LAB | | | | + +---------+ + + POC Glucose (06/21/2017 9:52 AM PDT) + + + + + + | Component | Value | Ref Range | Performed | Pathologist | | | | | At | Signature | + + + + + + | Glucose, | 286 (H)Comment: Testing | 65 - 99 mg/dL | EXTERNAL | | | Fingerstick | performed at [facility];[address] | | LAB | | | | [address];[place] | | | | | | [address] | | | | + + + + + + + + | Specimen | + + | | + + + +---------+ + + | Performing | Address | City/State/Zipcode | Phone Number | | Organization | | | | + +---------+ + + | EXTERNAL LAB | | | | + +---------+ + + POC Glucose (06/21/2017 5:25 AM PDT) + + + + + + | Component | Value | Ref Range | Performed | Pathologist | | | | | At | Signature | + + + + + + | Glucose, | 317 (H)Comment: Testing | 65 - 99 mg/dL | EXTERNAL | | | Fingerstick | performed at [facility];[address] | | LAB | | | | [address];[place] | | | | | | [address] | | | | + + + + + + + + | Specimen | + + | | + + + +---------+ + + | Performing | Address | City/State/Zipcode | Phone Number | | Organization | | | | + +---------+ + + | EXTERNAL LAB | | | | + +---------+ + + Protime INR (06/21/2017 5:23 AM PDT) + + + + + + | Component | Value | Ref Range | Performed | Pathologist | | | | | At | Signature | + + + + + + | INR | 0.9Comment: REFERENCE | | EXTERNAL | | | [...] | | | | | performed at [facility];[address] | | | | | | [address];[place], [place] | | | | | | [address] | | | | + + + [...] + +---------+ + + External Lab: CBC (06/21/2017 5:23 AM PDT) + + + + + + | Component | Value | Ref Range | Performed | Pathologist | | | | | At | Signature | + + + + + + | WBC | 8.41 | 3.80 - 11.00 | EXTERNAL | | | | | K/uL | LAB | | + + + + + + | Non- | 4.51 | 3.70 - 5.10 | EXTERNAL | | | Red Blood | | M/uL | LAB | | | Cells | | | | | | Counted | | | | | + + + + + + | Hemoglobin | 13.5 | 11.3 - 15.5 | EXTERNAL | | | | | g/dL | LAB | | + + + + + + | Hematocrit, | 39.9 | 34.0 - 46.0 % | EXTERNAL | | | POC | | | LAB | | + + + + + + | MCV | 88.5 | 80.0 - 100.0 fl | EXTERNAL | | | | | | LAB | | + + + + + + | MCH | 29.9 | 27.0 - 34.0 pg | EXTERNAL | | | | | | LAB | | + + + + + + | MCHC | 33.8 | 32.0 - 35.5 | EXTERNAL | | | | | g/dL | LAB | | + + + + + + | RDW-CV | 42.9 | 37 - 53 fl | EXTERNAL | | | | | | LAB | | + + + + + + | Platelet | 247 | 150 - 400 K/uL | EXTERNAL | | | Count | | | LAB | | | Plasma | | | | | + + + + + + | MPV | 9.7 | fl | EXTERNAL | | | | | | LAB | | + + + + + + | Differentia | AUTOMATED | | EXTERNAL | | | l Type | | | LAB | | + + + + + + | % Segmented | 47.07 | % | EXTERNAL | | | | | | LAB | | | Neutrophils | | | | | + + + + + + | % | 40.81 | % | EXTERNAL | | | Lymphocytes | | | LAB | | + + + + + + | % Monocytes | 8.18 | % | EXTERNAL | | | | | | LAB | | + + + + + + | % | 3.44 | % | EXTERNAL | | | Eosinophils | | | LAB | | + + + + + + | % Basophils | 0.50 | % | EXTERNAL | | | | | | LAB | | + + + + + + | Absolute | 3.96 | 1.90 - 7.40 | EXTERNAL | | | Segmented | | K/uL | LAB | | | Neutrophils | | | | | + + + + + + | Absolute | 3.43 | 1.00 - 3.90 | EXTERNAL | | | Lymphocytes | | K/uL | LAB | | + + + + + + | Absolute | 0.69 | 0.00 - 0.80 | EXTERNAL | | | Monocytes | | K/uL | LAB | | + + + + + + | Absolute | 0.29 | 0.00 - 0.50 | EXTERNAL | | | Eosinophils | | K/uL | LAB | | + + + + + + | Absolute | 0.04Comment: Testing | 0.00 - 0.10 | EXTERNAL | | | Basophils | performed at [facility], [address] | K/uL | LAB | | | | [address], | | | | | | [place] [address] | | | | + + + + + + + + | Specimen | + + | Blood specimen | | (specimen) | + + + +---------+ + + | Performing | Address | City/State/Zipcode | Phone Number | | Organization | | | | + +---------+ + + | EXTERNAL LAB | | | | + +---------+ + + Magnesium (06/21/2017 5:23 AM PDT) + + + + + + | Component | Value | Ref Range | Performed | Pathologist | | | | | At | Signature | + + + + + + | Magnesium | 1.7Comment: Testing | 1.7 - 2.4 mg/dL | EXTERNAL | | | | performed at [facility], [address] | | LAB | | | | [address], | | | | | | [place] [address] | | | | + + + [...] + +---------+ + + Comprehensive Metabolic Panel (06/21/2017 5:23 AM PDT) + + + + + + | Component | Value | Ref Range | Performed | Pathologist | | | | | At | Signature | + + + + + + | Na | 139 | 135 - 145 | EXTERNAL | | | | | mmol/L | LAB | | + + + + + + | K | 3.9 | 3.5 - 4.9 | EXTERNAL | | | | | mmol/L | LAB | | + + + + + + | Cl | 105 | 99 - 109 mmol/L | EXTERNAL | | | | | | LAB | | + + + + + + | CO2 | 23 | 23 - 32 mmol/L | EXTERNAL | | | | | | LAB | | + + + + + + | Anion Gap | 15 | 5 - 20 mmol/L | EXTERNAL | | | | | | LAB | | + + + + + + | Glucose, | 346 (H) | 65 - 99 mg/dL | EXTERNAL | | | Fasting | | | LAB | | + + + + + + | BUN | 20 | 8 - 25 mg/dL | EXTERNAL | | | | | | LAB | | + + + + + + | Creatinine | 0.7 | 0.50 - 1.00 | EXTERNAL | | | | | mg/dL | LAB | | + + + + + + | BUN/Creatin | 29 | | EXTERNAL | | | ine Ratio | | | LAB | | + + + + + + | Calcium | 8.9 | 8.5 - 10.5 | EXTERNAL | | | | | mg/dL | LAB | | + + + + + + | Protein, | 7.2 | 6.3 - 8.2 g/dL | EXTERNAL | | | Total | | | LAB | | + + + + + + | Albumin | 2.8 (L) | 3.6 - 5.0 g/dL | EXTERNAL | | | | | | LAB | | + + + + + + | Globulin | 4.4 | 1.3 - 4.9 g/dL | EXTERNAL | | | | | | LAB | | + + + + + + | A/G Ratio | 0.6 (L) | 1.0 - 2.4 | EXTERNAL | | | | | | LAB | | + + + + + + | Bilirubin | 0.2 | 0.1 - 1.5 mg/dL | EXTERNAL | | | Total | | | LAB | | + + + + + + | ALP, | 134 (H) | 35 - 115 U/L | EXTERNAL | | | External | | | LAB | | + + + + + + | AST | 13 | 10 - 45 U/L | EXTERNAL | | | | | | LAB | | + + + + + + | ALT | 10 | 10 - 65 U/L | EXTERNAL | | | | | [...] | | | | | | at [facility], [address] | | | | | | [address], | | | | | | [place] [address] | | | | + + + + + + + + | Specimen | + + | Blood specimen | | (specimen) | + + + +---------+ + + | Performing | Address | City/State/Zipcode | Phone Number | | Organization | | | | + +---------+ + + | EXTERNAL LAB | | | | + +---------+ + + POC Glucose (06/20/2017 9:18 PM PDT) + + + + + + | Component | Value | Ref Range | Performed | Pathologist | | | | | At | Signature | + + + + + + | Glucose, | 268 (H)Comment: Testing | 65 - 99 mg/dL | EXTERNAL | | | Fingerstick | performed at [facility];[address] | | LAB | | | | [address];[place] | | | | | | [address] | | | | + + + + + + + + | Specimen | + + | | + + + +---------+ + + | Performing | Address | City/State/Zipcode | Phone Number | | Organization | | | | + +---------+ + + | EXTERNAL LAB | | | | + +---------+ + + POC Glucose (06/20/2017 4:32 PM PDT) + + + + + + | Component | Value | Ref Range | Performed | Pathologist | | | | | At | Signature | + + + + + + | Glucose, | 254 (H)Comment: Testing | 65 - 99 mg/dL | EXTERNAL | | | Fingerstick | performed at [facility];[address] | | LAB | | | | [address];[place] | | | | | | [address] | | | | + + + + + + + + | Specimen | + + | | + + + +---------+ + + | Performing | Address | City/State/Zipcode | Phone Number | | Organization | | | | + +---------+ + + | EXTERNAL LAB | | | | + +---------+ + + MRSA NAAT (06/20/2017 3:44 PM PDT) + + | Specimen | + + | | + + + + + | Narrative | Performed At | + + + | SOURCE NARES(NOSE) MRSA | EXTERNAL LAB | | PCR NEGATIVE Testing | | | performed at [facility];[address] [place] [address];[place] [address] | | + + + + +---------+ + + | Performing | Address | City/State/Zipcode | Phone Number | | Organization | | | | + +---------+ + + | EXTERNAL LAB | | | | + +---------+ + + POC Glucose (06/20/2017 12:03 PM PDT) + + + + + + | Component | Value | Ref Range | Performed | Pathologist | | | | | At | Signature | + + + + + + | Glucose, | 156 (H)Comment: Testing | 65 - 99 mg/dL | EXTERNAL | | | Fingerstick | performed at [facility];[address] | | LAB | | | | [address];[place], [place] | | | | | | [address] | | | | + + + + + + + + | Specimen | + + | | + + + +---------+ + + | Performing | Address | City/State/Zipcode | Phone Number | | Organization | | | | + +---------+ + + | EXTERNAL LAB | | | | + +---------+ + + POC Glucose (06/20/2017 5:15 AM PDT) + + + + + + | Component | Value | Ref Range | Performed | Pathologist | | | | | At | Signature | + + + + + + | Glucose, | 247 (H)Comment: Testing | 65 - 99 mg/dL | EXTERNAL | | | Fingerstick | performed at [facility];[address] | | LAB | | | | [address];[place] | | | | | | [address] | | | | + + + + + + + + | Specimen | + + | | + + + +---------+ + + | Performing | Address | City/State/Zipcode | Phone Number | | Organization | | | | + +---------+ + + | EXTERNAL LAB | | | | + +---------+ + + Protime INR (06/20/2017 4:34 AM PDT) + + + + + + | Component | Value | Ref Range | Performed | Pathologist | | | | | At | Signature | + + + + + + | INR | 0.9Comment: REFERENCE | | EXTERNAL | | | [...] | | | | | performed at [facility];[address] | | | | | | [address];[place], [place] | | | | | | [address] | | | | + + + + + + + + | Specimen | + + | Blood specimen | | (specimen) | + + + +---------+ + + | Performing | Address | City/State/Zipcode | Phone Number | | Organization | | | | + +---------+ + + | EXTERNAL LAB | | | | + +---------+ + + External Lab: SUSAN (06/20/2017 4:34 AM PDT) + + + + + + | Component | Value | Ref Range | Performed | Pathologist | | | | | At | Signature | + + + + + + | WBC | 9.50 | 3.80 - 11.00 | EXTERNAL | | | | | K/uL | LAB | | + + + + + + | Non- | 4.60 | 3.70 - 5.10 | EXTERNAL | | | Red Blood | | M/uL | LAB | | | Cells | | | | | | Counted | | | | | + + + + + + | Hemoglobin | 13.6 | 11.3 - 15.5 | EXTERNAL | | | | | g/dL | LAB | | + + + + + + | Hematocrit, | 40.6 | 34.0 - 46.0 % | EXTERNAL | | | POC | | | LAB | | + + + + + + | MCV | 88.4 | 80.0 - 100.0 fl | EXTERNAL | | | | | | LAB | | + + + + + + | MCH | 29.7 | 27.0 - 34.0 pg | EXTERNAL | | | | | | LAB | | + + + + + + | MCHC | 33.5 | 32.0 - 35.5 | EXTERNAL | | | | | g/dL | LAB | | + + + + + + | RDW-CV | 41.1 | 37 - 53 fl | EXTERNAL | | | | | | LAB | | + + + + + + | Platelet | 269 | 150 - 400 K/uL | EXTERNAL | | | Count | | | LAB | | | Plasma | | | | | + + + + + + | MPV | 9.2 | fl | EXTERNAL | | | | | | LAB | | + + + + + + | Differentia | AUTOMATED | | EXTERNAL | | | l Type | | | LAB | | + + + + + + | % Segmented | 48.26 | % | EXTERNAL | | | | | | LAB | | | Neutrophils | | | | | + + + + + + | % | 38.34 | % | EXTERNAL | | | Lymphocytes | | | LAB | | + + + + + + | % Monocytes | 8.87 | % | EXTERNAL | | | | | | LAB | | + + + + + + | % | 3.75 | % | EXTERNAL | | | Eosinophils | | | LAB | | + + + + + + | % Basophils | 0.78 | % | EXTERNAL | | | | | | LAB | | + + + + + + | Absolute | 4.58 | 1.90 - 7.40 | EXTERNAL | | | Segmented | | K/uL | LAB | | | Neutrophils | | | | | + + + + + + | Absolute | 3.64 | 1.00 - 3.90 | EXTERNAL | | | Lymphocytes | | K/uL | LAB | | + + + + + + | Absolute | 0.84 (H) | 0.00 - 0.80 | EXTERNAL | | | Monocytes | | K/uL | LAB | | + + + + + + | Absolute | 0.36 | 0.00 - 0.50 | EXTERNAL | | | Eosinophils | | K/uL | LAB | | + + + + + + | Absolute | 0.07Comment: Testing | 0.00 - 0.10 | EXTERNAL | | | Basophils | performed at [facility], [address] | [address] | LAB | | | | [address], | | | | | | [place] [address] | | | | + + + + + + + + | Specimen | + + | Blood specimen | | (specimen) | + + + +---------+ + + | Performing | Address | City/State/Zipcode | Phone Number | | Organization | | | | + +---------+ + + | EXTERNAL LAB | | | | + +---------+ + + Phosphorus (06/20/2017 4:34 AM PDT) + + + + + + | Component | Value | Ref Range | Performed | Pathologist | | | | | At | Signature | + + + + + + | PHOSPHORUS | 2.6Comment: Testing | 2.3 - 4.8 mg/dL | EXTERNAL | | | | performed at [facility], [address] | | LAB | | | | [address], | | | | | | [place] [address] | | | | + + + + + + + + | Specimen | + + | Blood specimen | | (specimen) | + + + +---------+ + + | Performing | Address | City/State/Zipcode | Phone Number | | Organization | | | | + +---------+ + + | EXTERNAL LAB | | | | + +---------+ + + Magnesium (06/20/2017 4:34 AM PDT) + + + + + + | Component | Value | Ref Range | Performed | Pathologist | | | | | At | Signature | + + + + + + | Magnesium | 1.9Comment: Testing | 1.7 - 2.4 mg/dL | EXTERNAL | | | | performed at [facility], [address] | | LAB | | | | [address], | | | | | | [place] [address] | | | | + + + [...] + +---------+ + + Comprehensive Metabolic Panel (06/20/2017 4:34 AM PDT) + + + + + + | Component | Value | Ref Range | Performed | Pathologist | | | | | At | Signature | + + + + + + | Na | 137 | 135 - 145 | EXTERNAL | | | | | mmol/L | LAB | | + + + + + + | K | 4.0 | 3.5 - 4.9 | EXTERNAL | | | | | mmol/L | LAB | | + + + + + + | Cl | 104 | 99 - 109 mmol/L | EXTERNAL | | | | | | LAB | | + + + + + + | CO2 | 23 | 23 - 32 mmol/L | EXTERNAL | | | | | | LAB | | + + + + + + | Anion Gap | 14 | 5 - 20 mmol/L | EXTERNAL | | | | | | LAB | | + + + + + + | Glucose, | 293 (H) | 65 - 99 mg/dL | EXTERNAL | | | Fasting | | | LAB | | + + + + + + | BUN | 16 | 8 - 25 mg/dL | EXTERNAL | | | | | | LAB | | + + + + + + | Creatinine | 0.7 | 0.50 - 1.00 | EXTERNAL | | | | | mg/dL | LAB | | + + + + + + | BUN/Creatin | 23 | | EXTERNAL | | | ine Ratio | | | LAB | | + + + + + + | Calcium | 8.8 | 8.5 - 10.5 | EXTERNAL | | | | | mg/dL | LAB | | + + + + + + | Protein, | 7.0 | 6.3 - 8.2 g/dL | EXTERNAL | | | Total | | | LAB | | + + + + + + | Albumin | 2.7 (L) | 3.6 - 5.0 g/dL | EXTERNAL | | | | | | LAB | | + + + + + + | Globulin | 4.3 | 1.3 - 4.9 g/dL | EXTERNAL | | | | | | LAB | | + + + + + + | A/G Ratio | 0.6 (L) | 1.0 - 2.4 | EXTERNAL | | | | | | LAB | | + + + + + + | Bilirubin | 0.2 | 0.1 - 1.5 mg/dL | EXTERNAL | | | Total | | | LAB | | + + + + + + | ALP, | 147 (H) | 35 - 115 U/L | EXTERNAL | | | External | | | LAB | | + + + + + + | AST | 14 | 10 - 45 U/L | EXTERNAL | | | | | | LAB | | + + + + + + | ALT | 16 | 10 - 65 U/L | EXTERNAL | | | | | [...] [address], | | | | | | [place] [address] | | | | + + + + + + + + | Specimen | + + | Blood specimen | | (specimen) | + + + +---------+ + + | Performing | Address | City/State/Zipcode | Phone Number | | Organization | | | | + +---------+ + + | EXTERNAL LAB | | | | + +---------+ + + Potassium (06/20/2017 12:52 AM PDT) + + + + + + | Component | Value | Ref Range | Performed | Pathologist | | | | | At | Signature | + + + + + + | K | 3.9Comment: Testing | 3.5 - 4.9 | EXTERNAL | | | | performed at [facility];[address] | mmol/L | LAB | | | | [address];[place], [place] | | | | | | [address] | | | | + + + + + + + + | Specimen | + + | Blood specimen | | (specimen) | + + + +---------+ + + | Performing | Address | City/State/Zipcode | Phone Number | | Organization | | | | + +---------+ + + | EXTERNAL LAB | | | | + +---------+ + + POC Glucose (06/19/2017 9:13 PM PDT) + + + + + + | Component | Value | Ref Range | Performed | Pathologist | | | | | At | Signature | + + + + + + | Glucose, | 196 (H)Comment: Testing | 65 - 99 mg/dL | EXTERNAL | | | Fingerstick | performed at [facility];[address] | | LAB | | | | [address];[place] | | | | | | [address] | | | | + + + + + + + + | Specimen | + + | | + + + +---------+ + + | Performing | Address | City/State/Zipcode | Phone Number | | Organization | | | | + +---------+ + + | EXTERNAL LAB | | | | + +---------+ + + Potassium (06/19/2017 7:52 PM PDT) + + + + + + | Component | Value | Ref Range | Performed | Pathologist | | | | | At | Signature | + + + + + + | K | 3.5Comment: Testing | 3.5 - 4.9 | EXTERNAL | | | | performed at [facility];[address] | mmol/L | LAB | | | | [address];[place], [place] | | | | | | [address] | | | | + + + + + + + + | Specimen | + + | Blood specimen | | (specimen) | + + + +---------+ + + | Performing | Address | City/State/Zipcode | Phone Number | | Organization | | | | + +---------+ + + | EXTERNAL LAB | | | | + +---------+ + + Magnesium (06/19/2017 7:52 PM PDT) + + + + + + | Component | Value | Ref Range | Performed | Pathologist | | | | | At | Signature | + + + + + + | Magnesium | 1.9Comment: Testing | 1.7 - 2.4 mg/dL | EXTERNAL | | | | performed at [facility];[address] | | LAB | | | | [address];[place], [place] | | | | | | [address] | | | | + + + + + + + + | Specimen | + + | Blood specimen | | (specimen) | + + + +---------+ + + | Performing | Address | City/State/Zipcode | Phone Number | | Organization | | | | + +---------+ + + | EXTERNAL LAB | | | | + +---------+ + + POC Glucose (06/19/2017 4:31 PM PDT) + + + + + + | Component | Value | Ref Range | Performed | Pathologist | | | | | At | Signature | + + + + + + | Glucose, | 360 (H)Comment: Testing | 65 - 99 mg/dL | EXTERNAL | | | Fingerstick | performed at [facility] | | LAB | | | | [address];[place], [place] | | | | | | [address] | | | | + + + + + + + + | Specimen | + + | | + + + +---------+ + + | Performing | Address | City/State/Zipcode | Phone Number | | Organization | | | | + +---------+ + + | EXTERNAL LAB | | | | + +---------+ + + POC Glucose (06/19/2017 11:44 AM PDT) + + + + + + | Component | Value | Ref Range | Performed | Pathologist | | | | | At | Signature | + + + + + + | Glucose, | 305 (H)Comment: Testing | 65 - 99 mg/dL | EXTERNAL | | | Fingerstick | performed at [facility];[address] | | LAB | | | | [address];[place] | | | | | | [address] | | | | + + + + + + + + | Specimen | + + | | + + + +---------+ + + | Performing | Address | City/State/Zipcode | Phone Number | | Organization | | | | + +---------+ + + | EXTERNAL LAB | | | | + +---------+ + + POC Glucose (06/19/2017 5:08 AM PDT) + + + + + + | Component | Value | Ref Range | Performed | Pathologist | | | | | At | Signature | + + + + + + | Glucose, | 330 (H)Comment: Testing | 65 - 99 mg/dL | EXTERNAL | | | Fingerstick | performed at [facility];[address] | | LAB | | | | [address];[place] | | | | | | [address] | | | | + + + + + + + + | Specimen | + + | | + + + +---------+ + + | Performing | Address | City/State/Zipcode | Phone Number | | Organization | | | | + +---------+ + + | EXTERNAL LAB | | | | + +---------+ + + POC Glucose (06/18/2017 9:05 PM PDT) + + + + + + | Component | Value | Ref Range | Performed | Pathologist | | | | | At | Signature | + + + + + + | Glucose, | 179 (H)Comment: Testing | 65 - 99 mg/dL | EXTERNAL | | | Fingerstick | performed at [facility];[address] | | LAB | | | | [address];[place], [place] | | | | | | [address] | | | | + + + + + + + + | Specimen | + + | | + + + +---------+ + + | Performing | Address | City/State/Zipcode | Phone Number | | Organization | | | | + +---------+ + + | EXTERNAL LAB | | | | + +---------+ + + POC Glucose (06/18/2017 4:26 PM PDT) + + + + + + | Component | Value | Ref Range | Performed | Pathologist | | | | | At | Signature | + + + + + + | Glucose, | 126 (H)Comment: Testing | 65 - 99 mg/dL | EXTERNAL | | | Fingerstick | performed at [facility];[address] | | LAB | | | | [address];[place] | | | | | | [address] | | | | + + + + + + + + | Specimen | + + | | + + + +---------+ + + | Performing | Address | City/State/Zipcode | Phone Number | | Organization | | | | + +---------+ + + | EXTERNAL LAB | | | | + +---------+ + + POC Glucose (06/18/2017 11:51 AM PDT) + + + + + + | Component | Value | Ref Range | Performed | Pathologist | | | | | At | Signature | + + + + + + | Glucose, | 120 (H)Comment: Testing | 65 - 99 mg/dL | EXTERNAL | | | Fingerstick | performed at [facility];[address] | | LAB | | | | [address] [facility];[place], [place] | | | | | | [address] | | | | + + + + + + + + | Specimen | + + | | + + + +---------+ + + | Performing | Address | City/State/Zipcode | Phone Number | | Organization | | | | + +---------+ + + | EXTERNAL LAB | | | | + +---------+ + + Glucose, Random (06/18/2017 5:44 AM PDT) + + + + + + | Component | Value | Ref Range | Performed | Pathologist | | | | | At | Signature | + + + + + + | Glucose | 442 (H)Comment: Testing | 65 - 99 mg/dL | EXTERNAL | | | | performed at [facility];[address] | | LAB | | | | [address];[place] | | | | | | [address] | | | | + + + + + + + + | Specimen | + + | | + + + +---------+ + + | Performing | Address | City/State/Zipcode | Phone Number | | Organization | | | | + +---------+ + + | EXTERNAL LAB | | | | + +---------+ + + Protime INR (06/18/2017 5:44 AM PDT) + + + + + + | Component | Value | Ref Range | Performed | Pathologist | | | | | At | Signature | + + + + + + | INR | 0.9Comment: REFERENCE | | EXTERNAL | | | [...] | | | | | performed at [facility];[address] | | | | | | [address];[place], [place] | | | | | | [address] | | | | + + + [...] + +---------+ + + External Lab: CBC (06/18/2017 5:44 AM PDT) + + + + + + | Component | Value | Ref Range | Performed | Pathologist | | | | | At | Signature | + + + + + + | WBC | 12.41 (H) | 3.80 - 11.00 | EXTERNAL | | | | | K/uL | LAB | | + + + + + + | Non- | 4.79 | 3.70 - 5.10 | EXTERNAL | | | Red Blood | | M/uL | LAB | | | Cells | | | | | | Counted | | | | | + + + + + + | Hemoglobin | 14.5 | 11.3 - 15.5 | EXTERNAL | | | | | g/dL | LAB | | + + + + + + | Hematocrit, | 42.1 | 34.0 - 46.0 % | EXTERNAL | | | POC | | | LAB | | + + + + + + | MCV | 87.9 | 80.0 - 100.0 fl | EXTERNAL | | | | | | LAB | | + + + + + + | MCH | 30.3 | 27.0 - 34.0 pg | EXTERNAL | | | | | | LAB | | + + + + + + | MCHC | 34.4 | 32.0 - 35.5 | EXTERNAL | | | | | g/dL | LAB | | + + + + + + | RDW-CV | 41.6 | 37 - 53 fl | EXTERNAL | | | | | | LAB | | + + + + + + | Platelet | 253 | 150 - 400 K/uL | EXTERNAL | | | Count | | | LAB | | | Plasma | | | | | + + + + + + | MPV | 10.1 | fl | EXTERNAL | | | | | | LAB | | + + + + + + | Differentia | AUTOMATED | | EXTERNAL | | | l Type | | | LAB | | + + + + + + | % Segmented | 63.54 | % | EXTERNAL | | | | | | LAB | | | Neutrophils | | | | | + + + + + + | % | 25.36 | % | EXTERNAL | | | Lymphocytes | | | LAB | | + + + + + + | % Monocytes | 8.11 | % | EXTERNAL | | | | | | LAB | | + + + + + + | % | 2.51 | % | EXTERNAL | | | Eosinophils | | | LAB | | + + + + + + | % Basophils | 0.48 | % | EXTERNAL | | | | | | LAB | | + + + + + + | Absolute | 7.89 (H) | 1.90 - 7.40 | EXTERNAL | | | Segmented | | K/uL | LAB | | | Neutrophils | | | | | + + + + + + | Absolute | 3.15 | 1.00 - 3.90 | EXTERNAL | | | Lymphocytes | | K/uL | LAB | | + + + + + + | Absolute | 1.01 (H) | 0.00 - 0.80 | EXTERNAL | | | Monocytes | | K/uL | LAB | | + + + + + + | Absolute | 0.31 | 0.00 - 0.50 | EXTERNAL | | | Eosinophils | | K/uL | LAB | | + + + + + + | Absolute | 0.06Comment: Testing | 0.00 - 0.10 | EXTERNAL | | | Basophils | performed at [facility], [address] | K/uL | LAB | | | | [address], | | | | | | [place] [address] | | | | + + + + + + + + | Specimen | + + | Blood specimen | | (specimen) | + + + +---------+ + + | Performing | Address | City/State/Zipcode | Phone Number | | Organization | | | | + +---------+ + + | EXTERNAL LAB | | | | + +---------+ + + TSH (06/18/2017 5:44 AM PDT) + + + + + + | Component | Value | Ref Range | Performed | Pathologist | | | | | At | Signature | + + + + + + | TSH | 0.483Comment: Testing | 0.450 - 5.100 | EXTERNAL | | | | performed at [facility], [address] | uIU/mL | LAB | | | | [address], | | | | | | [place] [address] | | | | + + + + + + + + | Specimen | + + | Blood specimen | | (specimen) | + + + +---------+ + + | Performing | Address | City/State/Zipcode | Phone Number | | Organization | | | | + +---------+ + + | EXTERNAL LAB | | | | + +---------+ + + Phosphorus (06/18/2017 5:44 AM PDT) + + + + + + | Component | Value | Ref Range | Performed | Pathologist | | | | | At | Signature | + + + + + + | PHOSPHORUS | 4.4Comment: Testing | 2.3 - 4.8 mg/dL | EXTERNAL | | | | performed at [facility], [address] | | LAB | | | | [address], | | | | | | [place] [address] | | | | + + + + + + + + | Specimen | + + | Blood specimen | | (specimen) | + + + +---------+ + + | Performing | Address | City/State/Zipcode | Phone Number | | Organization | | | | + +---------+ + + | EXTERNAL LAB | | | | + +---------+ + + Magnesium (06/18/2017 5:44 AM PDT) + + + + + + | Component | Value | Ref Range | Performed | Pathologist | | | | | At | Signature | + + + + + + | Magnesium | 1.6 (L)Comment: Testing | 1.7 - 2.4 mg/dL | EXTERNAL | | | | performed at [facility], [address] | LAB | | | | [place], | | | | | | [place] [address] | | | | + + + + + + + + | Specimen | + + | Blood specimen | | (specimen) | + + + +---------+ + + | Performing | Address | City/State/Zipcode | Phone Number | | Organization | | | | + +---------+ + + | EXTERNAL LAB | | | | + +---------+ + + Hemoglobin A1C (06/18/2017 5:44 AM PDT) + + + + + + | Component | Value | Ref Range | Performed | Pathologist | | | | | At | Signature | + + + + + + | Hemoglobin | 11.1 (H)Comment: The | 4.0 - 6.0 % | EXTERNAL | | | A1c | [facility] | | LAB | | | [...] | | | | | | reference method. | | | | + + + + + + | Glycohemogl | 272Comment: The ADA | mg/dL | EXTERNAL | [...] | | | | | performed at [facility], [address] | | | | | [facility], | | | | | | [place] [address] | | | | + + + [...] + +---------+ + + Comprehensive Metabolic Panel (06/18/2017 5:44 AM PDT) + + + + + + | Component | Value | Ref Range | Performed | Pathologist | | | | | At | Signature | + + + + + + | Na | 135 | 135 - 145 | EXTERNAL | | | | | mmol/L | LAB | | + + + + + + | K | 3.5 | 3.5 - 4.9 | EXTERNAL | | | | | mmol/L | LAB | | + + + + + + | Cl | 97 (L) | 99 - 109 mmol/L | EXTERNAL | | | | | | LAB | | + + + + + + | CO2 | 26 | 23 - 32 mmol/L | EXTERNAL | | | | | | LAB | | + + + + + + | Anion Gap | 16 | 5 - 20 mmol/L | EXTERNAL | | | | | | LAB | | + + + + + + | Glucose, | 440 (H) | 65 - 99 mg/dL | EXTERNAL | | | Fasting | | | LAB | | + + + + + + | BUN | 14 | 8 - 25 mg/dL | EXTERNAL | | | | | | LAB | | + + + + + + | Creatinine | 0.8 | 0.50 - 1.00 | EXTERNAL | | | | | mg/dL | LAB | | + + + + + + | BUN/Creatin | 18 | | EXTERNAL | | | ine Ratio | | | LAB | | + + + + + + | Calcium | 9.3 | 8.5 - 10.5 | EXTERNAL | | | | | mg/dL | LAB | | + + + + + + | Protein, | 7.9 | 6.3 - 8.2 g/dL | EXTERNAL | | | Total | | | LAB | | + + + + + + | Albumin | 3.2 (L) | 3.6 - 5.0 g/dL | EXTERNAL | | | | | | LAB | | + + + + + + | Globulin | 4.7 | 1.3 - 4.9 g/dL | EXTERNAL | | | | | | LAB | | + + + + + + | A/G Ratio | 0.7 (L) | 1.0 - 2.4 | EXTERNAL | | | | | | LAB | | + + + + + + | Bilirubin | 0.3 | 0.1 - 1.5 mg/dL | EXTERNAL | | | Total | | | LAB | | + + + + + + | ALP, | 151 (H) | 35 - 115 U/L | EXTERNAL | | | External | | | LAB | | + + + + + + | AST | 13 | 10 - 45 U/L | EXTERNAL | | | | | | LAB | | + + + + + + | ALT | 14 | 10 - 65 U/L | EXTERNAL | | | | | [...] | | | | | | at [facility], [address] | | | | | | [facility], | | | | | | [place] [address] | | | | + + + + + + + + | Specimen | + + | Blood specimen | | (specimen) | + + + +---------+ + + | Performing | Address | City/State/Zipcode | Phone Number | | Organization | | | | + +---------+ + + | EXTERNAL LAB | | | | + +---------+ + + POC Glucose (06/18/2017 5:26 AM PDT) + + + + + + | Component | Value | Ref Range | Performed | Pathologist | | | | | At | Signature | + + + + + + | Glucose, | >400 (H)Comment: Testing | 65 - 99 mg/dL | EXTERNAL | | | Fingerstick | performed at [facility];[address] | | LAB | | | | [place] | | | | | | [address] | | | | + + + [...] left lung (HCC) | + + | Cavitary lesion of lung Other diseases of lung, not elsewhere classified | + + | Acute respiratory failure with hypoxia (HCC) Acute respiratory failure | + + documented in this encounter
--- OUTSIDE RECORDS SUMMARY | ~2019-10-16 | XMS | Encounter Summary ---
Demographics + + + | Address | [address] | | | [place] [address] | + + + | Home Phone [...] #[place] | | | | | [address] | | + + + + + | Bebe Terrazas | ECON | Unknown | Unavailable | + + + + + | Arden Terrazas | ECON | Unknown | | + + + + + Care Team Providers + +------+ + | Care Spanner Operator Name | Role | Phone | [...] + | 11/04/ | Telephone | Neurosurgery 0020 | Sivakumar Tanner, | Phone communication | | 2012 | | [address] | [address] | | | | | Physician's | [place], [place] | | | | | [place], [facility] floor | [address] | | | | | [place], [place] | [phone] | | | | | [address] | | | | | | [phone] | | | +--------+ + + + [...]
--- OUTSIDE RECORDS SUMMARY | ~2019-10-16 | XMS | Encounter Summary ---
Demographics + + + | Address | [address] | | | [place] [address] | + + + | Home Phone [...] #[place] | | | | | [address] | | + + + + + | Bebe Terrazas | ECON | Unknown | Unavailable | + + + + + | Arden Terrazas | ECON | Unknown | | + + + + + Care Team Providers + +------+ + | Care Health And Safety Consultant Name | Role | Phone | + +------+ + | Yuriy Cardenas PA-C | PCP | | + +------+ + Encounter Details +--------+ + + + + | Date | Type | Department | Care Team | Description | +--------+ + + + + | 09/06/ | MyChart | Cardiology General | | Referral to | | 2018 | Encounter | at [facility] [address] | | Cardiology: Please | | | | [facility] for | | call to schedule. | | | | Health and Healing, | | | | | | Building | | | | | | Floor [place], [place] | | | | | | [address] | | | | | | [phone] | | | +--------+ + + + [...]
--- OUTSIDE RECORDS SUMMARY | ~2019-10-16 | XMS | Encounter Summary ---
Demographics + + + | Address | [address] | | | [place] [address] | + + + | Home Phone [...] ST | Unavailable | | | | #[place] | | | | | [address] | | + + + + + | Bebe Terrazas | ECON | Unknown | Unavailable | + + + + + | Arden Hammondi | ECON | Unknown | | + + + + + Care Team Providers + +------+ + | Care Hand Ii Cutter Name | Role | Phone | [...]
--- OUTSIDE RECORDS SUMMARY | ~2019-10-16 | XMS | Encounter Summary ---
Demographics + + + | Address | [address] | | | [place] [address] | + + + | Home Phone [...] #[place] | | | | | [address] | | + + + + + | Bebe Terrazas | ECON | Unknown | Unavailable | + + + + + | Arden Terrazas | ECON | Unknown | | + + + + + Care Team Providers + +------+ + | Care Cattle Producers Name | Role | Phone | + [...] + + | 10/08/ | Telephone | [facility] Primary Care | Yuriy Cardenas, | DM - Diabetes | | 2017 | | at [place] [address] | PA-C [address] | mellitus | | | | [address] | [address] | | | | | [facility] [place], [place] | [place], [place] | | | | | [address] | [address] | | | | | [phone] | [phone] | | | | | | | [...]
--- OUTSIDE RECORDS SUMMARY | ~2019-10-16 | XMS | Encounter Summary ---
Demographics + + + | Address | [address] | | | [place] [address] | + + + | Home Phone [...] #[place], [place] | | | | | [address] | | + + + + + | Bebe Merino | ECON | Unknown | Unavailable | + + + + + | Arden Hammondi | ECON | Unknown | | + + + + + Care Team Providers + +------+ + | Care Tissue Specialist Name | Role | Phone | + +------+ + | Crissy Santoyo PA-C | PCP | | + +------+ + Encounter Details +--------+ + + + + | Date | Type | Department | Care Team | Description | +--------+ + + + + | 06/18/ | Office | [facility] | Other, Faculty | Progress Note | | 2013 | Visit-Trans | [address] | [phone] | | | | cribed | [place], [place] | | | | | | [address] | | | +--------+ + + + [...] a month. However, according to [facility] PDMP, she was given 360 tablets of 5 mg from [facility] on 04/17/13, which was suppose [...] etc, but I and no provider within [facility] will be prescribing her Narcotics. Review of [...] 5, Maintenance, Pharmac y: [facility] oxyCODONE 20 mg oral tablet: = 1 [...] List: Medical Moderate recurrent major depression / 61562405 / Confirmed Gastroesophageal reflux disease / 314354795 / Confirmed Back pain / 3450808850 / Confirmed Essential hypertension / 71638108 / Confirmed Asthma / 683599022 / Confirmed Type 2 diabetes mellitus / 886306485 / Confirmed Obesity / 3809348151 / Confirmed Histories Past Medical History: Include past medical history Resolved Lumbar and Lumbosacral Fusion of the Posterior Column, Posterior Technique (81.07): Resolv ed. Family History: Include family history Emphysema Mother Asthma Mother Family Sister Arrhythmia Family Anemia Sister High blood pressure Family Arthritis Mother Depression Mother DM - Diabetes mellitus Mother Glaucoma Sister Procedure/Surgery History: Include procedure/surgery history Breast reduction (866163984) in 2001 at 31 Years. Laparoscopic cholecystectomy (62338599). section (11555465). Nasal septoplasty (58669119). Social History Social history (ST). Social & Psychosocial Habits No Data Available Physical Examination VS/Measurements Vital Signs/Measurements Progress Note 06/18/2013 16:51 PDTTemperature Oral36.5 DegCPrimary PainLocationBack Primary Pain Intensit y5 Peripheral Pulse Paqs437 bpmRespiratory Rate16 breaths/minuteSystolic Blood Hzsrqhxj853 m mHg HIDiastolic Blood Bvikwjyq332 mmHg HIMean Arterial Pressure, Tyru848 mmHgWeight Measur ed101 kgHeight/Length Jpyzosta953 cm , No Vitals Data Available Vital Signs are the last 20 in the past 24 hours. General: Alert and oriented, No acute distress. Integumentary: Warm, Dry, Alexander. Neurologic: Alert, Oriented, Normal sensory. Psychiatric: Cooperative, [...] 30 tab, Refills 5, Maintenance, [facility] albuterolCFC free 90 mcg/inh inhalation aerosol: 2 puff(s), INH, QID, PRN Wheezing, # 1 EA, Refills 2, Maintenance, [facility] documented in this encounter Plan of Treatment Not on filedocumented as of this encounter Visit Diagnoses Not on filedocumented in this encounter"
--- OUTSIDE RECORDS SUMMARY | ~2019-10-16 | XMS | Encounter Summary ---
Demographics + + + | Address | [address] | | | [place] [address] | + + + | Home Phone | | + + + | Preferred Language | Unknown | + + + | Marital Status | | + + + | Mormon Affiliation | 1013 | + + + | Race | Unknown | + + + | Ethnic Group | Unknown | + + + Author + + + | Author | [facility] | | | and [place] | + + + | Organization | [facility] | | | and [place] | + + + | Address | Unknown | + + + | Phone | Unavailable | + + + Support + + + + + | Name | Relationship | Address | Phone | + + + + + | Dustin Terrazas | ECON | [place] | | | | | [address] | | + + + + + | Bebe Terrazas | ECON | [address] | | | | | [facility] [place] | | | | | [address] | | + + + + + Care Team Providers + +------+ + | Care Certified Hand Therapist Name | Role | Phone | + +------+ + | Ki Senior NP | PCP | | + +------+ + Reason for Visit +--------+--------+ + | Reason | Onset | Comments | | | Date | | +--------+--------+ + | Other | 02/15/ | plan of care | | | 2016 | | +--------+--------+ + Encounter Details +--------+ + + + + | Date | Type | Department | Care Team | Description | +--------+ + + + + | 02/15/ | Telephone | [facility] | Ewelina Grimaldo MD | Other (plan of care) | | 2016 | | CARDIOLOGY [address] | | | | | [place], | [place] | | | | | [place] [address] | [address] | | | | | [phone] | | | +--------+ + + + [...] this encounter Miscellaneous Notes Telephone Encounter - Melia Agudelo - 03/14/2017 3:11 PM PSTPer patient she already se es a Watch Commander at [facility]. She declines scheduling with our office at this time.Electronic ally signed by Melia Agudelo at 03/14/2017 3:11 PM PSTTelephone Encounter - Alba Vegas RN - 03/07/2017 12:59 PM PSTPSR's, please follow up with patient on this. Thanks, .... .......................................Marta Vegas RN on 03/07/17 at 13:00 elephone Encounter - Melia Agudelo - 02/19/2017 10:21 AM PSTLeft voicemail on patients phone to call back and schedule follow up with Dr. Grimaldo. 17 10:22 AM PSTTelephone Encounter - Marta Vegas RN - 02/15/2017 2:55 PM PSTI will as k PSR's to please coordinate an appointment in 2-4 weeks for patient to follow up in the off ice with one of the Cardiologists. Thanks ...........................................Elisha Vegas RN on 02/15/17 at 14:55 elephone Encounter - Marta Vegas RN - 02/15/2017 2:54 PM PST----- Message from Brian Carrasco RN sent at 02/15/2017 14:51 PST ----- Please call for f/u, no stent, only angioplasty, home on plavix documented in this encounter Plan of Treatment Not on filedocumented as of this encounter Visit Diagnoses Not on filedocumented in this encounter"
--- OUTSIDE RECORDS SUMMARY | ~2019-10-16 | XMS | Encounter Summary ---
Demographics + + + | Address | [address] | | | [place] [address] | + + + | Home Phone [...] #[place], [place] | | | | | [address] | | + + + + + | Bebe Terrazas | ECON | Unknown | Unavailable | + + + + + | Arden Hammondi | ECON | Unknown | | + + + + + Care Team Providers + +------+ + | Care Records Supervisor Name | Role | Phone | [address] | | | | | [place], [place] | [place] [address] | | | | | [address] | [phone] | | | | | | | [...] [address] | [place] | [phone] | | | | [address] | | + + + + + documented in this encounter Visit Diagnoses Not on filedocumented in this encounter"
--- OUTSIDE RECORDS SUMMARY | ~2019-10-16 | XMS | Encounter Summary ---
Demographics + + + | Address | [address] | | | [place] [address] | + + + | Home Phone [...] #[place] | | | | | [address] | | + + + + + | Bebe Terrazas | ECON | Unknown | Unavailable | + + + + + | Arden Terrazas | ECON | Unknown | | + + + + + Care Team Providers + +------+ + | Care Shingle Bolt Cutter Name | Role | Phone [...] + + | 04/29/ | Documentati | [facility] Comprehensive | Saurabh Rosales I, | Prior Authorization | | 2013 | on | Pain Center at | MD [address] | Request (lido patch | | | | [facility] | [address] | ) | | | | [address] | [place], [place] | | | | | [facility] | [address] | | | | | and Healing, | [phone] | | | | | | | | | | | [place], [place] | | | | | | [address] | | | | | | [phone] | | | +--------+ + + + [...]
--- OUTSIDE RECORDS SUMMARY | ~2019-10-16 | XMS | Encounter Summary ---
Demographics + + + | Address | [address] | | | [place] [address] | + + + | Home Phone | | + + + | Preferred Language | Unknown | + + + | Marital Status | | + + + | Anabaptism Affiliation | PRE | + + + [...] #[place] | | | | | [address] | | + + + + + | Bebe Terrazas | ECON | Unknown | Unavailable | + + + + + | Arden Terrazas | ECON | Unknown | | + + + + + Care Team Providers + +------+ + | Care Custom Motorcycle Painter Name | Role | Phone | + +------+ + | Yuriy Cardenas PA-C | PCP | | + +------+ + Encounter Details +--------+ + + + + | Date | Type | Department | Care Team | Description | +--------+ + + + + | 06/04/ | MyChart | [facility] Primary Care | Yuriy Cardenas, | RE: Medication | | 2019 | Encounter | at [place] [address] | PA-C [address] | refills | | | | [address] | [address] | | | | | [place], [place] | [place], [place] | | | | | [address] | [address] | | | | | [phone] | [phone] | | | | | | | [...]
--- OUTSIDE RECORDS SUMMARY | ~2019-10-16 | XMS | Encounter Summary ---
Demographics + + + | Address | [address] | | | [place] [address] | + + + | Home Phone [...] #[place] | | | | | [address] | | + + + + + | Bebe Terrazas | ECON | Unknown | Unavailable | + + + + + | Arden Terrazas | ECON | Unknown | | + + + + + Care Team Providers + +------+ + | Care Javascript Engineer Name | Role | Phone | [...] | | | | | Physician's | [place], [place] | | | | | [place], [facility] floor | [address] | | | | | [place], [place] | [phone] | | | | | [address] | | | | | | [phone] | | | +--------+ + + + [...]
--- OUTSIDE RECORDS SUMMARY | ~2019-10-16 | XMS | Encounter Summary ---
Demographics + + + | Address | [address] | | | [place] [address] | + + + | Home Phone | | + + + | Preferred Language | Unknown | + + + | Marital Status | | + + + | Hinduism Affiliation | PRE | + + + | Race | White | + + + | Ethnic Group | Not or | + + + Author + + + | Author | [facility] | + + + | Organization | [facility] | + + + | [...] #[place] | | | | | [address] | | + + + + + | Bebe Terrazas | ECON | Unknown | Unavailable | + + + + + | Arden Terrazas | ECON | Unknown | | + + + + + Care Team Providers + +------+ + | Care Appraiser Land Name | Role | Phone | + +------+ + | Yuriy Cardenas PA-C | PCP | | + +------+ + Encounter Details +--------+ + + + + | Date | Type | Department | Care Team | Description | +--------+ + + + + | 02/13/ | MyChart | [facility] Primary Care | Yuriy Cardenas, | RE: Medication | | 2018 | Encounter | at [place] [address] | PA-C [address] | Refill | | | | [address] | [address] | | | | | [place], [place] | [place], [place] | | | | | [address] | [address] | | | | | [phone] | [phone] | | | | | | | [...]
--- OUTSIDE RECORDS SUMMARY | ~2019-10-16 | XMS | Encounter Summary ---
Demographics + + + | Address | [address] | | | [place] [address] | + + + | Home Phone [...] #[place] | | | | | [address] | | + + + + + | Bebe Terrazas | ECON | Unknown | Unavailable | + + + + + | Arden Terrazas | ECON | Unknown | | + + + + + Care Team Providers + +------+ + | Care Political Organizer Name | Role | Phone | + [...] | +--------+ + + + + | 02/21/ | Telephone | [facility] Primary Care | Yuriy Cardenas, | Medication requested | | 2017 | | at [place] [address] | PA-C [address] | | | | [address] | [facility] | | | | | [facility] [place], [place] | [place], [place] | | | | | [address] | [address] | | | | | [phone] | [phone] | | | | | | | [...]
--- OUTSIDE RECORDS SUMMARY | ~2019-10-16 | XMS | Encounter Summary ---
Demographics + + + | Address | [address] | | | [place] [address] | + + + | Home Phone [...] + + + | Author | [facility] | + + + | Organization | [facility] | + + + | Address | Unknown | + + + | Phone | Unavailable | + + + Support + + + + + | Name | Relationship | Address | Phone | + + + + + | Dustin Terrazas | ECON | [address] | Unavailable | | | | #[place] | | | | | [address] | | + + + + + [...] Rd | | | | | | [place], [place] | | | | | | [address] | | | +--------+ + + + [...]
--- OUTSIDE RECORDS SUMMARY | ~2019-10-16 | XMS | Encounter Summary ---
Demographics + + + | Address | [address] | | | [place] [address] | + + + | Home Phone [...] #[place] | | | | | [address] | | + + + + + | Bebe Terrazas | ECON | Unknown | Unavailable | + + + + + | Arden Terrazas | ECON | Unknown | | + + + + + Care Team Providers + +------+ + | Care Sports Editor Name | Role | Phone | + [...] | | [address] | [address] | [facility] | | | | | ma, | [place], [place] | Rd | | | | | unspecified | [address] | [place], [place] | | | | | laterality | Phone: | [address] | | | | | ([facility]) | [phone] | Phone: | | | | | Procedures | Fax: | [phone] | | | | | CONSULT TO | [phone] | Fax: | | | | | SURGERY - | | [phone] | | | | | CARDIOTHORAC | | | | | | | IC | | | +--------+--------+ + + + + Encounter Details +--------+ + + + + | Date | Type | Department | Care Team | Description | +--------+ + + + + | 06/14/ | Commissioner Public Works | [facility] | Kirk Sawyer, | Primary lung | | 2018 | | Clinics at S | MD [address] | adenocarcinoma, | | | | [address] | [place], [place] | unspecified | | | | [facility] | [address] | laterality (HCC) | | | | Health and Healing, | [phone] | (Primary Dx) | | | | [address] | | | | | | [place], [place] | | | | | | [address] | | | | | | [phone] | | | +--------+ + + + [...]
--- OUTSIDE RECORDS SUMMARY | ~2019-10-16 | XMS | Encounter Summary ---
Demographics + + + | Address | [address] | | | [place] [address] | + + + | Home Phone [...] #[place] | | | | | [address] | | + + + + + | Bebe Terrazas | ECON | Unknown | Unavailable | + + + + + | Arden Terrazas | ECON | Unknown | | + + + + + Care Team Providers + +------+ + | Care Substance Abuse Specialist Name | Role | Phone | [...] + + | 04/03/ | Telephone | [facility] Primary Care | Yuriy Cardenas, | Lab Results | | 2019 | | at [place] [address] | PA-C [address] | | | | [address] | [facility] | | | | | [facility] [place], [place] | [place], [place] | | | | | [address] | [address] | | | | | [phone] | [phone] | | | | | | | [...]
--- OUTSIDE RECORDS SUMMARY | ~2019-10-16 | XMS | Encounter Summary ---
Demographics + + + | Address | [address] | | | [place] [address] | + + + | Home Phone | | + + + | Preferred Language | Unknown | + + + | Marital Status | | + + + | Confucianist Affiliation | PRE | + + + [...] #[place], [place] | | | | | [address] | | + + + + + | Bebe Terrazas | ECON | Unknown | Unavailable | + + + + + | Arden Hammondi | ECON | Unknown | | + + + + + Care Team Providers + +------+ + | Care Senior Foreman Name | Role | Phone | + [...] [address] | [address] [address] | | | | | [place], [place] | [address] [place], | | | | | [address] | [place] [address] | | | | | | [phone] | | | | | | | [...] RICHARD | [address] | [place] | [phone] | | | | [address] | | + + + + + [...] mL/min/1.73m2 | [facility] | | | [place] | | | | | + +---------+ [...] [facility] | [address] | [place], [place] | | | LAB | | [address] | | + + + + + | [facility] | [address] | [place], [place] | | | LAB | | [address] | | + + + + + [...] [place] | | | LAB | | [address] | | + + + + + | [facility] | [address] | [place], [place] | | | LAB | | [address] | | + + + + + [...] [place] | | | LAB | | [address] | | + + + + + | [facility] | [address] | [place], [place] | | | LAB | | [address] | | + + + + + [...] [facility] | [address] | [place], [place] | | | LAB | | [address] | | + + + + + | [facility] | [address] | [place], [place] | | | LAB | | [address] | | + + + + + [...] [place] | | | LAB | | [address] | | + + + + + | [facility] | [address] | [place] | | | LAB | | [address] | | + + + + + documented in this encounter Visit Diagnoses Not on filedocumented in this encounter"
--- OUTSIDE RECORDS SUMMARY | ~2019-10-16 | XMS | Encounter Summary ---
Demographics + + + | Address | [address] | | | [place] [address] | + + + | Home Phone [...] [place] | | | | | [address] | | + + + + + | Bebe Terrazas | ECON | Unknown | Unavailable | + + + + + | Arden Terrazas | ECON | Unknown | | + + + + + Care Team Providers + +------+ + | Care Electrocardiograph Repairer Name | Role | Phone | + [...] + + | 12/23/ | Office | [facility] | Yuriy Cardenas, | Type 2 diabetes | | 2019 | Visit | at [place] [address] | PA-C [address] | mellitus with | | | | [address] | [address] | diabetic | | | | [place] [address] [place], [place] | [place], [place] | polyneuropathy, with | | | | [address] | [address] | long-term current | | | | [phone] | [phone] | use of insulin (HCC) | | | | | | (Primary Dx); | | | | | | Coronary artery | | | | | | disease involving | | | | | | [place] coronary | | | | | | artery of [place] | | | | | | heart [...] with long-term current use of ins ulin ([facility]) E11.42 semaglutide 0.25 mg or 0.5 mg(2 mg/1.5 mL) subcutaneous pen injector Z79.4 HEMOGLOBIN A1C,POC 2. Coronary artery disease involving [place] coronary artery of [place] heart without angina pectoris I25.10 3. Chronic combined systolic and diastolic heart failure ([facility]) I50.42 4. History of myocardial infarct at age less than 60 years I25.2 5. Non-small cell cancer of left lung ([facility]) C34.92 oxyCODONE (immediate release) 5 mg oral [...] + + | [facility] | [address] [facility] | [place], [place] | [phone] | | [place] [facility] | Road | [address] | | + + + + + documented in this encounter Visit Diagnoses + + | Diagnosis | + + | Type 2 diabetes mellitus with diabetic polyneuropathy, with long-term current use of | | insulin (HCC) - Primary | + + | Coronary artery disease involving [place] coronary artery of [place] heart without | | angina pectoris | [...]
--- OUTSIDE RECORDS SUMMARY | ~2019-10-16 | XMS | Encounter Summary ---
Demographics + + + | Address | [address] | | | [place] [address] | + + + | Home Phone | | + + + | Preferred Language | Unknown | + + + | Marital Status | | + + + | Muslim Affiliation | 1013 | + + + | Race | Unknown | + + + | Ethnic Group | Unknown | + + + Author + + + | Author | [facility] | | | and [place] | + + + | Organization | [facility] | | | and [place] | + + + | Address | Unknown | + + + | Phone | Unavailable | + + + Support + + + + + | Name | Relationship | Address | Phone | + + + + + | Dustin Terrazas | ECON | [place] | | | | | [address] | | + + + + + | Bebe Terrazas | ECON | [address] | | | | [place], [place] | | | | | [address] | | + + + + + Care Team Providers + +------+ + | Care Laborer Vegetable Farm Name | Role | Phone | + +------+ + | Ki Senior NP | PCP | | + +------+ + Encounter Details +--------+ + + + + | Date | Type | Department | Care Team | Description | +--------+ + + + + | 07/09/ | Orders Only | [facility] | Madhu Liu | | | 2018 | | [address] | [address] | | | | | [place], [place] | [address] | | | | | [address] | [place] [address] | | | | | [phone] | [phone] | | | | | | | [...] | EXTERNAL LAB: CBC | Routin | 07/09/2017 | | Results for this | | | e | 1:07 PM | | procedure are in the | | | | PDT | | results section. | + +--------+ + + + | LIPID PANEL | Routin | 07/09/2017 | | Results for this | | | e | 1:07 PM | | procedure are in the | | | | PDT | | results section. | + +--------+ + + + | BASIC METABOLIC | Routin | 07/09/2017 | | Results for this | | PANEL | e | 1:07 PM | | procedure are in the | | | | PDT | | results section. | + +--------+ + + + documented in this encounter Results External Lab: CBC (07/09/2017 1:07 PM PDT) + + + + + + | Component | Value | Ref Range | Performed | Pathologist | | | | | At | Signature | + + + + + + | WBC | 10.47 | 3.80 - 11.00 | EXTERNAL | | | | | 10*3/uL | LAB | | + + + + + + | Non- | 3.46 (L) | 3.70 - 5.10 | EXTERNAL | | | Red Blood | | 10*6/uL | LAB | | | Cells | | | | | | Counted | | | | | + + + + + + | Hemoglobin | 10.3 (L) | 11.3 - 15.5 | EXTERNAL | | | | | g/dL | LAB | | + + + + + + | Hematocrit, | 29.9 (L) | 34.0 - 46.0 % | EXTERNAL | | | POC | | | LAB | | + + + + + + | MCV | 86.4 | 80.0 - 100.0 fL | EXTERNAL | | | | | | LAB | | + + + + + + | MCH | 29.6 | 27.0 - 34.0 pg | EXTERNAL | | | | | | LAB | | + + + + + + | MCHC | 34.3 | 32.0 - 35.5 | EXTERNAL | | | | | g/dL | LAB | | + + + + + + | RDW-CV | 42.0 | 37 - 53 fL | EXTERNAL | | | | | | LAB | | + + + + + + | Platelet | 535 (H) | 150 - 400 | EXTERNAL | | | Count | | 10*3/uL | LAB | | | Plasma | | | | | + + + + + + | MPV | 8.3 | fL | EXTERNAL | | | | | | LAB | | + + + + + + | Differentia | AUTOMATED | | EXTERNAL | | | l Type | | | LAB | | + + + + + + | % Segmented | 50.85 | % | EXTERNAL | | | | | | LAB | | | Neutrophils | | | | | + + + + + + | % | 26.69 | % | EXTERNAL | | | Lymphocytes | | | LAB | | + + + + + + | % Monocytes | 11.31 | % | EXTERNAL | | | | | | LAB | | + + + + + + | % | 10.08 | % | EXTERNAL | | | Eosinophils | | | LAB | | + + + + + + | % Basophils | 1.07 | % | EXTERNAL | | | | | | LAB | | + + + + + + | Absolute | 5.33 | 1.90 - 7.40 | EXTERNAL | | | Segmented | | 10*3/uL | LAB | | | Neutrophils | | | | | + + + + + + | Absolute | 2.80 | 1.00 - 3.90 | EXTERNAL | | | Lymphocytes | | 10*3/uL | LAB | | + + + + + + | Absolute | 1.18 (H) | 0.00 - 0.80 | EXTERNAL | | | Monocytes | | 10*3/uL | LAB | | + + + + + + | Absolute | 1.06 (H) | 0.00 - 0.50 | EXTERNAL | | | Eosinophils | | 10*3/uL | LAB | | + + + + + + | Absolute | 0.11 (H) | 0.00 - 0.10 | EXTERNAL | | | Basophils | | 10*3/uL | LAB | | + + + + + + + + | Specimen | + + | Blood specimen | | (specimen) | + + + +---------+ + + | Performing | Address | City/State/Zipcode | Phone Number | | Organization | | | | + +---------+ + + | EXTERNAL LAB | | | | + +---------+ + + Lipid Panel (07/09/2017 1:07 PM PDT) + +---------+ + + + | Component | Value | Ref Range | Performed | Pathologist | | | | | At | Signature | + +---------+ + + + | Cholesterol | 187 | mg/dL | EXTERNAL | | | | | | LAB | | + +---------+ + + + | Triglycerid | 393 (H) | mg/dL | EXTERNAL | | | es | | | LAB | | + +---------+ + + + | HDL | 41 | mg/dL | EXTERNAL | | | | | | LAB | | + +---------+ + + + | LDL, | 67 | mg/dL | EXTERNAL | | | Calculated | | | LAB | | + +---------+ + + + + + | Specimen | + + | Blood specimen | | (specimen) | + + + +---------+ + + | Performing | Address | City/State/Zipcode | Phone Number | | Organization | | | | + +---------+ + + | EXTERNAL LAB | | | | + +---------+ + + Basic Metabolic Panel (07/09/2017 1:07 PM PDT) + + + + + + | Component | Value | Ref Range | Performed | Pathologist | | | | | At | Signature | + + + + + + | Na | 138 | 135 - 145 | EXTERNAL | | | | | mmol/L | LAB | | + + + + + + | K | 4.5 | 3.5 - 4.9 | EXTERNAL | | | | | mmol/L | LAB | | + + + + + + | Cl | 102 | 99 - 109 mmol/L | EXTERNAL | | | | | | LAB | | + + + + + + | CO2 | 24 | 23 - 32 mmol/L | EXTERNAL | | | | | | LAB | | + + + + + + | Anion Gap | 17 | 5 - 20 mmol/L | EXTERNAL | | | | | | LAB | | + + + + + + | Glucose, | 323 (H) | 65 - 99 mg/dL | EXTERNAL | | | Fasting | | | LAB | | + + + + + + | BUN | 25 | 8 - 25 mg/dL | EXTERNAL [...] + + | Calcium | 9.5 | 8.5 - 10.5 | EXTERNAL | | | | | mg/dL | LAB | | + + + + + + | Estimated | 57 (L)Comment: GFR <60: | mL/min/1.73_m2 | EXTERNAL | | | GFR | CHRONIC KIDNEY DISEASE, | | LAB | | | | IF FOUND OVER A 3 MONTH | | | | | | PERIOD. GFR <15: KIDNEY | | | | | | FAILURE. FOR | | | | | | AMERICANS, MULTIPLY THE | | | | | | CALCULATED GFR BY 1.210. | | | | + + + [...]
--- OUTSIDE RECORDS SUMMARY | ~2019-10-16 | XMS | Encounter Summary ---
Demographics + + + | Address | [address] | | | [place] [address] | + + + | Home Phone | | + + + | Preferred Language | Unknown | + + + | Marital Status | | + + + | Yazdanism Affiliation | PRE | + + + [...] [place] | | | | | [address] | | + + + + + | Bebe Terrazas | ECON | Unknown | Unavailable | + + + + + | Arden Terrazas | ECON | Unknown | | + + + + + Care Team Providers + +------+ + | Care Mobility Architect Name | Role | Phone | [...] [facility] | [place], [place] | | | | | [facility], | [address] | | | | | [facility] | [phone] | | | | | floor [place], [place] | | | | | | [address] | | | | | | [phone] | | | +--------+ + + + [...]
--- OUTSIDE RECORDS SUMMARY | ~2019-10-16 | XMS | Encounter Summary ---
Demographics + + + | Address | [address] | | | [place] [address] | + + + | Home Phone | | + + + | Preferred Language | Unknown | + + + | Marital Status | | + + + | Bahai Affiliation | 1013 | + + + | Race | Unknown | + + + | Ethnic Group | Unknown | + + + Author + + + | Author | [facility] | | | and [place] | + + + | Organization | [facility] | | | and [place] | + + + | Address | Unknown | + + + | Phone | Unavailable | + + + Support + + + + + | Name | Relationship | Address | Phone | + + + + + | Dustin Terrazas | ECON | [place] | | | | | [address] | | + + + + + | Bebe Terrazas | ECON | [address] | | | | | [place], [place] | | | | | [address] | | + + + + + Care Team Providers + +------+ + | Care Hiv Nurse Name | Role | Phone | + +------+ + | Ki Senior NP | PCP | | + +------+ + Encounter Details +--------+ + + + + | Date | Type | Department | Care Team | Description | +--------+ + + + + | 05/28/ | Orders Only | [facility] | Baylee Milan | | | 2017 | | [facility] [place] | [address] | | | | | [address] | [address] | | | | | [place], [place] | [place] [address] | | | | | [address] | [phone] | | | | | [phone] | | | +--------+ + + + [...] + | LIPID PANEL | Routin | 05/28/2017 | | Results for this | | | e | 10:00 AM | | procedure are in the | | | | PDT | | results section. | + +--------+ + + + | COMPREHENSIVE | Routin | 05/28/2017 | | Results for this | | METABOLIC PANEL | e | 10:00 AM | | procedure are in the | | | | PDT | | results section. | + +--------+ + + + documented in this encounter Results Lipid Panel (05/28/2017 10:00 AM PDT) + +---------+ + + + | Component | Value | Ref Range | Performed | Pathologist | | | | | At | Signature | + +---------+ + + + | Cholesterol | 168 | 200 mg/dL | EXTERNAL | | | | | | LAB | | + +---------+ + + + | Triglycerid | 233 (A) | 30 - 150 mg/dL | EXTERNAL | | | es | | | LAB | | + +---------+ + + + | HDL | 45.0 | 40 mg/dl | EXTERNAL | | | | | | LAB | | + +---------+ + + + | LDL, | 76 | 100 mg/dL | EXTERNAL | | | Calculated | | | LAB | | + +---------+ + + + | LDl/HDL | | | EXTERNAL | | | Ratio | | | LAB | | + +---------+ + + + | Chol/HDL | 3.7 | 4.44 | EXTERNAL | | | Ratio | | | LAB | | + +---------+ + + + | VLDL | 47 (A) | 4 - 40 mg/dL | EXTERNAL | | | | | | LAB | | + +---------+ + + + | Non HDL | 123 | 130 | EXTERNAL | | | Chol. | | | LAB | | | (LDL+VLDL) | | | | | + +---------+ [...] + +---------+ + + Comprehensive Metabolic Panel (05/28/2017 10:00 AM PDT) + + + + + + | Component | Value | Ref Range | Performed | Pathologist | | | | | At | Signature | + + + + + + | Glucose, | 337 (A) | 70 - 100 mg/dL | EXTERNAL | | | Fasting | | | LAB | | + + + + + + | BUN | 17 | 6 - 23 mg/dL | EXTERNAL | | | | | | LAB | | + + + + + + | Creatinine | 0.56 (A) | 0.60 - 1.35 | EXTERNAL | | | | | mg/dL | LAB | | + + + + + + | BUN/Creatin | 30.4 (A) | 6.0 - 28.6 | EXTERNAL | | | ine Ratio | | | LAB | | + + + + + + | Calcium | 9.3 | 8.4 - 10.2 | EXTERNAL | | | | | mg/dL | LAB | | + + + + + + | Protein, | 6.6 | 6.0 - 8.0 g/dL | EXTERNAL | | | Total | | | LAB | | + + + + + + | Albumin | 3.4 (A) | 3.5 - 5.0 | EXTERNAL | | | | | | LAB | | + + + + + + | Globulin | 3.2 | 1.8 - 3.5 | EXTERNAL | | | | | | LAB | | + + + + + + | A/G Ratio | 1.1 | 1.1 - 2.4 | EXTERNAL | | | | | | LAB | | + + + + + + | Bilirubin | 0.2 | 0.0 - 1.2 mg/dL | EXTERNAL | | | Total | | | LAB | | + + + + + + | ALP, | 99 | 31 - 130 | EXTERNAL | | | External | | | LAB | | + + + + + + | ALT | 10 | 7 - 52 U/L | EXTERNAL | | | | | | LAB | | + + + + + + | AST | 8 (A) | 13 - 39 U/L | EXTERNAL | | | | | | LAB | | + + + + + + | Na | 138 | 132 - 143 | EXTERNAL | | | | | mmol/L | LAB | | + + + + + + | K | 4.5 | 3.6 - 5.1 | EXTERNAL | | | | | mmol/L | LAB | | + + + + + + | Cl | 102 | 95 - 112 mmol/L | EXTERNAL | | | | | | LAB | | + + + + + + | CO2 | 25 | 19 - 31 mmol/L | EXTERNAL | | | | | | LAB | | + + + + + + | Anion Gap | 15.5 | 7 - 21 mmol/L | EXTERNAL | | | | | | LAB | | + + + + + + | Estimated | 117 | 60 mg/dL | EXTERNAL | | | GFR | | | LAB | | + [...]
--- OUTSIDE RECORDS SUMMARY | ~2019-10-16 | XMS | Encounter Summary ---
Demographics + + + | Address | [address] [facility] [address] | | | [place] [address] | + + + | Home Phone | | + + + | Preferred Language | Unknown | + + + | Marital Status | | + + + | Advent Affiliation | 1013 | + + + | Race | Unknown | + + + | Ethnic Group | Unknown | + + + Author + + + | Author | [facility] | | | and [place] | + + + | Organization | [facility] | | | and [place] | + + + | Address | Unknown | + + + | Phone | Unavailable | + + + Support + + + + + | Name | Relationship | Address | Phone | + + + + + | Dustin Terrazas | ECON | [place] | | | | | [address] | | + + + + + | Bebe Terrazas | ECON | [address] | | | | [facility] [place] | | | | | [address] | | + + + + + Care Team Providers + +------+ + | Care Sock Drier Name | Role | Phone | + +------+ + PCP | Unavailable | + +------+ + Encounter Details +--------+ + + + + | Date | Type | Department | Care Team | Description | +--------+ + + + + | 07/25/ | Hospital | [facility] | Conversion | Coronary artery | | 2017 | Encounter | [facility] | Transaction, | disease involving | | | | CLINICAL DECISION | Provider Unknown | [place] coronary | | | | [address] | [phone] | artery of [place] | | | | [place], [place] | | heart with angina | | | | [address] | Madhu Liu | pectoris ([facility]); | | | | [phone] | MD Massiel [address] | Angina effort ([facility]) | | | | | [address] | | | | | | [place] [address] | | | | | | [phone] | | | | | | | [...] + + + | Blood Pressure | 114/68 | 07/25/2016 4:51 PM | | | | | PDT | | + + + + + | Pulse | 86 | 07/25/2016 4:51 PM | | | | | PDT | | + + + + + | Temperature | 36.8 C (98.2 F) | 07/25/2016 4:51 PM | | | | | PDT | | + + + + + | Respiratory Rate | 18 | 07/25/2016 4:51 PM | | | | | PDT | | + + + + + | Oxygen Saturation | - | - | | + + + + + | Inhaled Oxygen | - | - | | | Concentration | | | | + + + + + | Weight | 92.5 kg (204 lb) | 07/25/2016 4:51 PM | | | | | PDT | | + + + + + | Height | 167.6 cm (5' 5.98") | 07/25/2016 4:51 PM | | | | | PDT | | + + + + + | Body Mass Index | 32.94 | 07/25/2016 4:51 PM | | | | | PDT [...] + +---------+ + + | E-Z Natasha Bennett | 1 each by | | 0 [...] Progress Notes Conversion Transaction, Provider Unknown - 07/25/2016 4:51 PM PDTFormatting of this note m ight be different from the original. Nurse Progress Note by SN Keon at 07/25/161650 Author: SN Keon Service: (none) Author Type: Clerk To Justice Filed: 07/25/161652 Date of Service: 07/25/161650 Status: Signed Casual Shoe Inspector: SN Keon (Clerk To Justice) Discharge instructions given by RN. Patient and family state they have no questions at this time. IV removed and bandaged. Pt escorted to private vehicle via ambulation. onver mayank Transaction, Provider Unknown - 07/25/2016 3:25 PM PDT Progress Notes by Nancy Villarreal RN at 07/25/16 1525 Author: Nancy Villarreal RN Service: (none) Author Type: Registered Nurse Filed: 07/25/16 1526 Date of Service: 07/25/16 152 Status: Signed Casual Shoe Inspector: Nancy Villarreal RN (Registered Nurse) Removed last 3 cc air from TR band. No signs of bleeding. Will continue to monitor onver mayank Transaction, Provider Unknown - 07/25/2016 3:00 PM PDT Progress Notes by Nancy Villarreal RN at 07/25/16 1500 Author: Nancy Villarreal RN Service: (none) Author Type: Registered Nurse Filed: 07/25/16 1525 Date of Service: 07/25/16 1500 Status: Signed Casual Shoe Inspector: Nancy Villarreal RN (Registered Nurse) Removed 3 cc air from TR band. No signs bleeding. Will continue to monitor. onver mayank Transaction, Provider Unknown - 07/25/2016 2:32 PM PDT Progress Notes by Nancy Villarreal RN at 07/25/16 1432 Author: Nancy Villarreal RN Service: (none) Author Type: Registered Nurse Filed: 07/25/16 1503 Date of Service: 07/25/16 1432 Status: Signed Casual Shoe Inspector: Nancy Villarreal RN (Registered Nurse) 3 cc air removed from TR band. No signs of bleeding. Will continue to monitor. onver mayank Transaction, Provider Unknown - 07/25/2016 2:14 PM PDT Nurse Progress Note by SN Keon at 07/25/16 1414 Author: SN Keon Service: (none) Author Type: Clerk To Justice Filed: 07/25/16 1415 Date of Service: 07/25/16 141 Status: Signed Casual Shoe Inspector: SN Keon (Clerk To Justice) Cosigner: Nancy Villarreal RN at 07/25/16 1504 3cc air removed from TR-Band. No signs of bleeding at this time. Will continue to monitor. docume nted in this encounter H&P Notes Pilo Ocampo MD - 07/25/2016 10:27 AM PDTFormatting of this note might be diffe rent from the original. H&P by Pilo Ocampo MD at 07/25/16 1027 Author: Pilo Ocampo MD Service: Cardiology Author Type: Physician Filed: 07/25/16 1029 Date of Service: 07/25/16 1027 Status: Signed Casual Shoe Inspector: Pilo Ocampo MD (Physician) [facility] Service: Cardiology Admission History & Physical Date of Admission: 07/25/2016 Addendum Please see office vit note by Dr. Liu from 07/16/2016 below. No interval change. Author Note Status Last Update User Last Update Date/Time Madhu Liu MD Signed Madhu Liu MD 07/16/2016 5:27 PM Progress Notes by Madhu Liu MD at 07/16/161723 Author: Madhu Liu MD Service: (none) Author Type: Physician Filed: 07/16/161726 Note Time: 07/16/161723 Status: Signed Casual Shoe Inspector: Madhu Liu MD (Physician) Expand All Collapse All Date of visit: 07/16/2016 Primary Care Physician: DONG WALL CHIEF COMPLAINT: Chief Complaint Patient presents with Follow-up annual HISTORY OF PRESENT ILLNESS: 44 yr old female with h/o HTN, HLD, DM, CAD s/p PCI to pLAD 06/2013, who underwent coronary angiogram 05/2015 for angina found to be having severe ISR pLAD stent and PCI to LAD was done by Dr. Ocampo. She is lost in follow up since and now presents with exertional chest pain. Pressure like 4/10 non radiating, retrosternal relief with NGT sl. She have to take 2-3 time s a day NGT at least 2-3 times a week. She reports compliance to medications. Allergies Allergen Reactions Latex Hives Sulfa Antibiotics Rash Codeine Nausea and Vomiting No family history on file. 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 (HCC) 05/03/2015 Type 2 diabetes mellitus without complication ([facility]LY [facility]) 05/03/2015 Past Surgical History Procedure Laterality Date Cholecystectomy Tubal ligation Breast surgery Spine surgery Lithotripsy Coronary stent placement Sinus surgery Current outpatient prescriptions: albuterol (PROVENTIL HFA;VENTOLIN HFA) 108 (90 BASE) MCG/ACT inhaler, Inhale 2 puffs i nto the lungs every 4 (four) hours as needed for Wheezing., Disp: , Rfl: aspirin 81 MG tablet, Take 81 mg by mouth daily., Disp: , Rfl: insulin aspart (NOVOLOG) 100 UNIT/ML injection, Inject into the skin 3 (three) times daily before meals. Indications: Insulin-Dependent Diabetes, Disp: , Rfl: insulin detemir (LEVEMIR) 100 UNIT/ML injection, Inject 60 Units into the skin nightly ., Disp: , Rfl: losartan (COZAAR) 25 MG tablet, Take 1 tablet by mouth daily. Indications: High Blood Pressure, Disp: , Rfl: prasugrel (EFFIENT) 10 MG TABS, Take 1 tablet by mouth daily., Disp: 30 tablet, Rfl: 1 1 pregabalin (LYRICA) 75 MG capsule, Take 75 mg by mouth as needed., Disp: , Rfl: [DISCONTINUED] losartan (COZAAR) 25 MG tablet, Take 50 mg by mouth daily. Indications: High Blood Pressure, Disp: , Rfl: amLODIPine (NORVASC) 2.5 MG tablet, Take 1 tablet by mouth daily., Disp: 90 tablet, Rf l: 0 atorvastatin (LIPITOR) 40 MG tablet, Take 1 tablet by mouth nightly., Disp: 90 tablet, Rfl: 1 gemfibrozil (LOPID) 600 MG tablet, Take 1 tablet by mouth 2 (two) times daily before m eals., Disp: 30 tablet, Rfl: 0 isosorbide mononitrate (IMDUR) 60 MG 24 hr tablet, Take 0.5 tablets by mouth daily., D isp: 90 tablet, Rfl: 0 nitroGLYCERIN (NITROSTAT) 0.4 MG SL tablet, Place 1 tablet under the tongue every 5 (f marla) minutes as needed for Chest pain., Disp: 90 tablet, Rfl: 0 [DISCONTINUED] isosorbide mononitrate (IMDUR) 60 MG 24 hr tablet, Take 1 tablet by clifton th daily., Disp: 90 tablet, Rfl: 0 REVIEW OF SYSTEMS: Negative except for pertinent [...] patient is not nervous/anxious PHYSICAL EXAM: BP 108/74 mmHg | Pulse 105 | Resp 20 | Ht 1.676 m (5' 6") | Wt 92.625 kg (204 lb 3.2 oz) | BMI 32.97 kg/m2 | SpO2 98% Physical Exam Constitutional: Alert, Ox3, not in [...] tests: Lab Results Component Value Date WBC 11.03* 05/12/2015 RBC 4.36 05/12/2015 HGB 12.9 05/12/2015 HCT 39.8 05/12/2015 PLT 226 05/12/2015 Lab Results Component Value Date NA 132* 05/12/2015 K 3.7 05/12/2015 CL 104 05/12/2015 CO2 22* 05/12/2015 ANIONGAP 10 05/12/2015 GLUF 229* 05/12/2015 BUN 14 05/12/2015 CREATININE 0.48* 05/12/2015 BCR 29 05/12/2015 CA 8.6 05/12/2015 EGFR >60 05/12/2015 Lab Results Component Value Date CHOL 229* 05/04/2015 TRIG 955* 05/04/2015 LDL LDL NOT VALID WHEN TRIG >400 mg/dL 05/04/2015 GLUF 229* 05/12/2015 HGBA1C 11.5* 05/04/2015 Lab Results Component Value Date CKTOTAL 28* 05/03/2015 TSH 1.44 05/04/2015 No results found for: METF, NMETFX, TFNMFX, AALRTSS54JAP, LMOJML50EUF, TOTEPI EKG: Sinus tachycardia Possible Left atrial [...] Assessment/Plan ASSESSMENT & PLAN: Chronic Issues Addressed: Angina effort (HCC) 45 yr old female with h/o CAD s/p PCI to pLAD- HTN, DM, HLD with angina and multiple ER vis its for chest pain Lost in follow up since PCI now presents with angina on effort- she reports medication comp liance 06/23/2013- [facility]- s/p PCI to pLAD, non obstructive disease in LM, Circ and RCA Stress MPI 04/2015- Moderate to severe fixed perfusion defects in LAD territory with associa hiren regional wall motion abnormality concerning for infarct or hibernating myocardium. 05/11/2015- [facility] to severe ISR to pLAD stent, Moderate disease of the proximal left anterior d escending artery proximal to the previous stent, with insignificant FFR value of 0.87. Continue Losartan, Pasugrel, ASA Will add Norvasc 2.5mg daily and Imdur 30mg daily NGT sl prn as needed DM not well controlled- lipids not well controlled- currently not taking any statins- Will add Atorvastatin 40mg daily Strongly advised to stop smoking. Will do echo to evaluate LV function, WMA, valves Will do Lipids, BMP, CBC Discussed importance of risk factor control like tight DM, HTN, HLD control in management o f CAD- Give risk factors and hx of ISR to pLAD stent and now with exertional angina symptoms will proceed with coronary angiogram- after discussing risks, benefits and alternatives to proced ure- she want to proceed with coronary angiogram verbally expressing understanding of the pr ocedure. F/u after test Thank you for allowing me to participate in the care of this patient. Please, do not hesitate to contact me for any further questions. Madhu Liu MD Code Status: Full Code Primary Care Physician: DONG Ocampo MD 07/25/2016 documented i n this encounter Plan of Treatment Not on filedocumented as of this encounter Procedures + +--------+ + + + | Procedure Name | Priori | Date/Time | Associated Diagnosis | Comments | | | ty | | | | + +--------+ + + + | POC GLUCOSE | Routin | 07/25/2016 | | Results for this | | | e | 2:27 PM | | procedure are in the | | | | PDT | | results section. | + +--------+ + + + | EXTERNAL LAB: CBC | Routin | 07/25/2016 | | Results for this | | | e | 9:42 AM | | procedure are in the | | | | PDT | | results section. | + +--------+ + + + | LIPID PANEL | Routin | 07/25/2016 | | Results for this | | | e | 9:42 AM | | procedure are in the | | | | PDT | | results section. | + +--------+ + + + | HEPATIC FUNCTION | Routin | 07/25/2016 | | Results for this | | PANEL | e | 9:42 AM | | procedure are in the | | | | PDT | | results section. | + +--------+ + + + | BASIC METABOLIC | Routin | 07/25/2016 | | Results for this | | PANEL | e | 9:42 AM | | procedure are in the | | | | PDT | | results section. | + +--------+ + + + documented in this encounter Results POC Glucose (07/25/2016 2:27 PM PDT) + + + + + + | Component | Value | Ref Range | Performed | Pathologist | | | | | At | Signature | + + + + + + | Glucose, | 223 (H)Comment: Testing | 65 - 99 mg/dL | EXTERNAL | | | Fingerstick | performed at [facility];[address] | | LAB | | | | [address];[place], [place] | | | | | | [address] | | | | + + + + + + + + | Specimen | + + | | + + + +---------+ + + | Performing | Address | City/State/Zipcode | Phone Number | | Organization | | | | + +---------+ + + | EXTERNAL LAB | | | | + +---------+ + + External Lab: SUSAN (07/25/2016 9:42 AM PDT) + + + + + + | Component | Value | Ref Range | Performed | Pathologist | | | | | At | Signature | + + + + + + | WBC | 12.03 (H) | 3.80 - 11.00 | EXTERNAL | | | | | K/uL | LAB | | + + + + + + | Non- | 4.95 | 3.70 - 5.10 | EXTERNAL | | | Red Blood | | M/uL | LAB | | | Cells | | | | | | Counted | | | | | + + + + + + | Hemoglobin | 14.9 | 11.3 - 15.5 | EXTERNAL | | | | | g/dL | LAB | | + + + + + + | Hematocrit, | 43.5 | 34.0 - 46.0 % | EXTERNAL | | | POC | | | LAB | | + + + + + + | MCV | 88.0 | 80.0 - 100.0 fl | EXTERNAL | | | | | | LAB | | + + + + + + | MCH | 30.1 | 27.0 - 34.0 pg | EXTERNAL | | | | | | LAB | | + + + + + + | MCHC | 34.2 | 32.0 - 35.5 | EXTERNAL | | | | | g/dL | LAB | | + + + + + + | RDW-CV | 42.0 | 37 - 53 fl | EXTERNAL | | | | | | LAB | | + + + + + + | Platelet | 274 | 150 - 400 K/uL | EXTERNAL | | | Count | | | LAB | | | Plasma | | | | | + + + + + + | MPV | 8.9 | fl | EXTERNAL | | | | | | LAB | | + + + + + + | Differentia | AUTOMATED | | EXTERNAL | | | l Type | | | LAB | | + + + + + + | % Segmented | 61.58 | % | EXTERNAL | | | | | | LAB | | | Neutrophils | | | | | + + + + + + | % | 25.63 | % | EXTERNAL | | | Lymphocytes | | | LAB | | + + + + + + | % Monocytes | 7.19 | % | EXTERNAL | | | | | | LAB | | + + + + + + | % | 4.61 | % | EXTERNAL | | | Eosinophils | | | LAB | | + + + + + + | % Basophils | 0.99 | % | EXTERNAL | | | | | | LAB | | + + + + + + | Absolute | 7.41 (H) | 1.90 - 7.40 | EXTERNAL | | | Segmented | | K/uL | LAB | | | Neutrophils | | | | | + + + + + + | Absolute | 3.08 | 1.00 - 3.90 | EXTERNAL | | | Lymphocytes | | K/uL | LAB | | + + + + + + | Absolute | 0.87 (H) | 0.00 - 0.80 | EXTERNAL | | | Monocytes | | K/uL | LAB | | + + + + + + | Absolute | 0.56 (H) | 0.00 - 0.50 | EXTERNAL | | | Eosinophils | | K/uL | LAB | | + + + + + + | Absolute | 0.12 (H)Comment: Testing | 0.00 - 0.10 | EXTERNAL | | | Basophils | performed at [facility];[address] | K[address]L | LAB | | | | [address];[place], [place] | | | | | | [address] | | | | + + + [...] + +---------+ + + Hepatic Function Panel (07/25/2016 9:42 AM PDT) + + + + + + | Component | Value | Ref Range | Performed | Pathologist | | | | | At | Signature | + + + + + + | Protein, | 7.5 | 6.3 - 8.2 g/dL | EXTERNAL | | | Total | | | LAB | | + + + + + + | Albumin | 3.1 (L) | 3.6 - 5.0 g/dL | EXTERNAL | | | | | | LAB | | + + + + + + | Bilirubin | 0.2 | 0.1 - 1.5 mg/dL | EXTERNAL | | | Total | | | LAB | | + + + + + + | Bilirubin | <0.1 | 0.0 - 0.3 mg/dL | EXTERNAL | | | Direct | | | LAB | | + + + + + + | ALP, | 139 (H) | 35 - 115 U/L | EXTERNAL | | | External | | | LAB | | + + + + + + | AST | 19Comment: SLT HEMOLYSIS | 10 - 45 U/L | EXTERNAL | | | | | | LAB | | + + + + + + | ALT | 26Comment: Testing | 10 - 65 U/L | EXTERNAL | | | | performed at [facility];[address] | | LAB | | | | [address];[place] | | | | | | [address] | | | | + + + + + + + + | Specimen | + + | Blood specimen | | (specimen) | + + + +---------+ + + | Performing | Address | City/State/Zipcode | Phone Number | | Organization | | | | + +---------+ + + | EXTERNAL LAB | | | | + +---------+ + + Lipid Panel (07/25/2016 9:42 AM PDT) + + + + + + | Component | Value | Ref Range | Performed | Pathologist | | | | | At | Signature | + + + + + + | Cholesterol | 212 (H)Comment: SPECIMEN | mg/dL | EXTERNAL | | | | SLIGHTLY HEMOLYZED | | LAB | | + + + + + + | Triglycerid | 399 (H)Comment: SPECIMEN | mg/dL | EXTERNAL | | | es | SLIGHTLY HEMOLYZED | | LAB | | + + + + + + | HDL | 37 (L) | mg/dL | EXTERNAL | | | | | | LAB | | + + + + + + | LDL, | 95Comment: Testing | mg/dL | EXTERNAL | | | Calculated | performed at [facility], [address] | | LAB | | | | [address], | | | | | | [place] [address] | | | | + + + [...] + +---------+ + + Basic Metabolic Panel (07/25/2016 9:42 AM PDT) + + + + + [...] 4.9 | EXTERNAL | | | | HEMOLYSIS | mmol/L | LAB | | + [...] + + + + | Glucose, | 271 (H) | 65 - 99 mg/dL | EXTERNAL | | | Fasting | | | LAB | | + + + + + + | BUN | 13 | 8 - 25 mg/dL | EXTERNAL | | | | | | LAB | | + + + + + + | Creatinine | 0.74 | 0.50 - 1.00 | EXTERNAL | | | | | mg/dL | LAB | | + + + + + + | BUN/Creatin | 18 | | EXTERNAL | | | ine Ratio | | | LAB | | + + + + + + | Calcium | 9.0 | 8.5 - 10.5 | EXTERNAL | [...] | | | | | | at [facility];[address] [place] [address] | | | | | | [facility];[place] [address] | | | | + + + [...] + + | Coronary artery disease involving [place] coronary artery of [place] heart with angina | | pectoris (HCC) | + + | Angina effort Other and unspecified angina pectoris | + + documented in this encounter
--- OUTSIDE RECORDS SUMMARY | ~2019-10-16 | XMS | Encounter Summary ---
Demographics + + + | Address | [address] | | | [place] [address] | + + + | Home Phone [...] #[id number] | | | | | [address] | | + + + + + | Bebe Terrazas | ECON | Unknown | Unavailable | + + + + + | Arden Terrazas | ECON | Unknown | | + + + + + Care Team Providers + +------+ + | Care Purchasing Analyst Name | Role | Phone | [...] + + + + | 04/10/ | Telephone | [facility] Primary Care | Yuriy Cardenas, | Lab Results | | 2019 | | at [place] [address] | PA-C [address] | | | | [address] | [facility] | | | | | [facility] [place], [place] | [place], [place] | | | | | [address] | [address] | | | | | [phone] | [phone] | | | | | | | [...]
--- OUTSIDE RECORDS SUMMARY | ~2019-10-16 | XMS | Encounter Summary ---
Demographics + + + | Address | [address] [facility] [address] | | | [place] [address] | + + + | Home Phone | | + + + | Preferred Language | Unknown | + + + | Marital Status | | + + + | Baptism Affiliation | [id number] | + + + | Race | Unknown | + + + | Ethnic Group | Unknown | + + + Author + + + | Author | [facility] | | | and [place] | + + + | Organization | [facility] | | | and [place] | + + + | Address | Unknown | + + + | Phone | Unavailable | + + + Support + + + + + | Name | Relationship | Address | Phone | + + + + + | Dustin Terrazas | ECON | [place] | | | | | [address] | | + + + + + | Bebe Terrazas | ECON | [address] | | | | [place], [place] | | | | | [address] | | + + + + + Care Team Providers + +------+ + | Care Lining Printer Name | Role | Phone | + +------+ + | Ki Senior NP | PCP | | + +------+ + Encounter Details +--------+ + + + + | Date | Type | Department | Care Team | Description | +--------+ + + + + | 05/23/ | Emergency | [facility] | | Back pain, | | 2017 | | [facility] | | unspecified back | | | | [facility] | | location, | | | | [address] | | unspecified back | | | | [place] | | pain laterality, | | | | [address] | | unspecified | | | | [phone] | | chronicity | +--------+ + + + + Social [...] + + + | Blood Pressure | 155/91 | 05/23/2017 2:36 PM | | | | | PDT | | + + + + + | Pulse | 107 | 05/23/2017 2:36 PM | | | | | PDT | | + + + + + | Temperature | 36.9 C (98.4 F) | 05/23/2017 2:36 PM | | | | | PDT | | + + + + + | Respiratory Rate | 16 | 05/23/2017 2:36 PM | | | | | PDT | | + + + + + | Oxygen Saturation | - | - | | + + + + + | Inhaled Oxygen | - | - | | | Concentration | | | | + + + + + | Weight | 85.3 kg (188 lb 0.8 | 05/23/2017 2:36 PM | | | | oz) | PDT | | + + + + + | Height | 165.1 cm (5' 5") | 05/23/2017 2:36 PM | | | | | PDT | | + + + + + | Body Mass Index | 31.29 | 05/23/2017 2:36 PM | | | | | PDT [...] + + + +---------+ + + | EAustin Bennett | 1 each by | | [...] ED Notes Conversion Transaction, Provider Unknown - 05/23/2017 2:43 PM PDTFormatting of this note m ight be different from the original. ED Notes by Andry Esquivel RN at 05/23/171442 Author: Andry Esquivel RN Service: (none) Author Type: Registered Nurse Filed: 05/23/171442 Date of Service: 05/23/171442 Status: Signed Tech Ed/Woodshop Teacher: Andry Esquivel RN (Registered Nurse) Call light within reach and one side rail up. Daughter at bedside. Andry Esquivel RN 05/23/171442 Tu Tracy PA-C - 05/23/2017 2:40 PM PDTFormatting of this note might be different from the orig inal. ED Provider Notes by Tu Page PA-C at 05/23/171439 Author: Tu Page PA-C Service: Emergency Department Author Type: Physician Benefits Processor - Certified Filed: 05/23/17 1335 Date of Service: 05/23/171439 Status: Attested Tech Ed/Woodshop Teacher: Tu Page PA-C (Physician Benefits Processor - Certified) Cosigner: Antonio De MD at 05/24/17603 Attestation signed by Antonio De MD at 05/24/17603 I have reviewed the note and supervised the APC. Procedures [facility] EMERGENCY [facility]MENT [facility] [place] History of Present Illness Patient Identification Nancy Terrazas is a 46 y.o. female. Patient information was obtained from patient. History/Exam limitations: none. 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 Onset of symptoms was ongoing for the past several months and years with multiple surgeries, with a recurrent course since jamel t time. The symptoms are described to be of mild to moderate in severity. The patient also complains of new onset left lower lobe lung cancer and is scheduled for lobectomy however, t kat[place]kay also relate that they found a lesion along T12 on MRI and is now having worsening back p ain. The patient describes the quality and location of the symptoms as the following: Acute on chronic mid back pain that radiates up and down her spine. Care prior to arrival consist ed of rest, with out relief. She relates that she is scheduled to follow up with her PCP in 3 weeks for pain management however is been unable to follow-up in a timely fashion after th e new diagnoses. She relates that her specialist do not handle pain management. 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 CT SINUS SURGERY SPINE SURGERY [...] tablet by mouth daily. 03/13/17 PRICE Wilkes DULoxetine (CYMBALTA) 30 MG capsule Take 1 capsule by mouth daily. 05/16/17 05/16/18 Na marquez MD furosemide (LASIX) 40 MG tablet Take 1 tablet by mouth daily. 03/13/17 03/13/18 PRICE Carlisle gemfibrozil (LOPID) 600 MG tablet Take 1 tablet by mouth 2 (two) times daily before meals. 03/13/17 03/13/18 PRICE Silvestre insulin aspart (NOVOLOG) 100 UNIT/ML injection Inject into the skin 3 (three) times daily before meals. Indications: Insulin-Dependent Diabetes Historical Provider insulin detemir (LEVEMIR) 100 UNIT/ML injection Inject 60 Units into the skin nightly. H istorical Provider isosorbide mononitrate (IMDUR) 30 MG 24 hr tablet Take 1 tablet by mouth daily. 03/13/1703/04 PRICE Silvesrte losartan (COZAAR) 25 MG tablet Take 1 [...] Take 75 mg by mouth as needed. Historical Provider varenicline (CHANTIX STARTING MONTH ) 0.5 MG X 11 & 1 MG X 42 tablet Take 0.5 mg by mout h 2 (two) times daily. Take one 0.5mg tablet by mouth once daily for 3 days, then increase t o one 0.5mg tablet twice daily for 3 days, then increase to one 1mg tablet twice daily. H istorical Provider Allergies Allergen Reactions Latex Hives Sulfa Antibiotics [...] Failure Maternal Grandmother Uterine cancer Maternal Aunt ROS Review of Systems Constitutional: Negative for: fever, chills, fatigue, sweats or weight loss Eyes: Negative for: decreased vision or irritated eyes Nose: Negative for: nosebleed Throat: Negative for: mouth sores Cardiovascular/Respiratory: Negative for: chest pain, shortness of breath, cough Gastrointestinal: Negative for: abdominal pain, vomiting, diarrhea, black or bloody stools Genitourinary: Negative for: dysuria, hematuria, urinary problems Musculoskeletal: Negative for: myalgias and arthralgias Positive for: Back pain Skin: Negative for: laceration or lesion Neuro and psych: Negative for: fainting, head injury, seizure, trouble walking, saddle par esthesias, incontinence Endocrine/Heme/Lymph: Negative for: swollen lymph nodes, easy bruising Physical Exam BP (!) 155/91 (BP Location: Right upper arm) | Pulse 107 | Temp 98.4 F (36.9 C) (Oral ) | Resp 16 | Ht 1.651 m (5' 5") | Wt 85.3 kg (188 lb 0.8 oz) | SpO2 96% | BMI 31.29 kg /m Pulse Oximetry interpretation: Normal General: Alert, in no apparent distress Eyes: Normal inspection, pupils equal and round, non-icteric Cardiovascular: Rate and rhythm normal No murmurs Respiratory: Breath sounds normal bilaterally Abdomen: Soft, non-tender, non-distended No guarding or rebound Back: Pain with Palpation about 2 years 8 through 12 without chronic tissue texture change s, crepitus, step-off, Skin: Color normal Warm and dry No rash Neuro: No motor deficit No sensory deficit Normal gait ED Course Medical Decision Making and Emergency Department Course ED Department Course 1435: Examined and spoke to the patient relates a history of acute on chronic mid back pain . Patient is hoping for possible pain management until she is able to follow up with her PCP . Discussed the plan for Her a pain management until she is able to follow up with her PCP f or pain management for her new-onset cancer. I do not feel further emergent labs and imaging are needed at this time as patient has had a thorough workup. She denies any new symptoms a t this time. I discussed the plan for follow-up with her PCP as scheduled. I discussed with her the treatment plan and what would constitute a return to emergency department. The patie nt is currently afebrile and nontoxic-appearing at this time. Records Reviewed Nursing notes. Labs & Radiology Results Laboratory Evaluation Results None Radiology and EKG Evaluation Imaging Results None Diagnosis & Disposition ED Diagnosis Final diagnosis Back pain, unspecified back location, unspecified back pain laterality, unspecified chroni city Disposition: ED Disposition ED Disposition Condition Comment Discharge Stable Follow-up Information Follow up With Specialties Details Why Contact SHIRA Green NURSE PRACTITIONER - FAMILY Schedule an appointment as soon as martinez salvador for a visit [address] [place] [id number] [facility] Emergency Department in [place] [facility] If symptoms worsen [address] [address] Discharge Medications: Discharge Medication List as of 05/23/2017 2:51 PM START taking these medications Details HYDROcodone-acetaminophen (NORCO) 7.5-325 MG per tablet Take 1 tablet by mouth every 6 (six ) hours as needed for up to 10 days., Starting Marissa 05/23/2017, Until 06/02/2017, Print ibuprofen (MOTRIN) 800 MG tablet Take 1 tablet by mouth every 6 (six) hours as needed for P ain for up to 10 days., Starting [place] 05/23/2017, Until 06/02/2017, Print tiZANidine (ZANAFLEX) 4 MG tablet Take 1 tablet by mouth every 6 (six) hours as needed for up to 10 days., Starting [place] 05/23/2017, Until 06/02/2017, Print Tu Page PA-C 05/23/17 9330 Antonio De MD 05/24/17 0604 onversion Transaction, Provider Unknown - 05/23/2017 2:37 PM PDTFormatting of this note might be different from t [place] original. ED Notes by Andry Esquivel RN at 05/23/171436 Author: Andry Esquivel RN Service: (none) Author Type: Registered Nurse Filed: 05/23/171436 Date of Service: 05/23/171436 Status: Signed Tech Ed/Woodshop Teacher: Andry Esquivel RN (Registered Nurse) Tu SAMAYOA at bedside. Andry Esquivel RN 05/23/171436 docume nted in this encounter Plan of Treatment Not on filedocumented as of this encounter Visit Diagnoses + + | Diagnosis | + + | Back pain, unspecified back location, unspecified back pain laterality, unspecified | | chronicity | + + documented in this encounter
--- OUTSIDE RECORDS SUMMARY | ~2019-10-16 | XMS | Encounter Summary ---
Demographics + + + | Address | [address] | | | [place] [address] | + + + | Home Phone [...] [address] | | | | | [address] | | + + + + + | Bebe Terrazas | ECON | Unknown | Unavailable | + + + + + | Arden Terrazas | ECON | Unknown | | + + + + + Care Team Providers + +------+ + | Care Pharmacist Manager Name | Role | Phone | [...] | | | | | Procedures | [place], [place] | [facility] | | | CT SPINE | [address] | [address] | | | | | LUMBAR WO | Phone: | [place], [place] | | | | | CONTRAST | [phone] | [address] | | | | | | Fax: | Phone: | | | | | | [phone] | [phone] | | | | | | | Fax: | | | | | | | [phone] | +--------+--------+ + + + + Reason [...] | | | | | Procedures | [place], [place] | Hospital, | | | | | CT SPINE | [address] | [address] Floor | | | | | LUMBAR WO | Phone: | [place], [place] | | | | | CONTRAST | [phone] | [address] | | | | | | Fax: | Phone: | | | | | | [phone] | [phone] | | | | | | | Fax: | | | | | | | [phone] | +--------+--------+ + + + + Encounter Details +--------+ + + + + | Date | Type | Department | Care Team | Description | +--------+ + + + + | 04/15/ | Hospital | Diagnostic Imaging | | | | 2013 | Encounter | Services at [facility] | | | | | | [address] | | | | | | [address] [facility] | | | | | | Hospital, 10th Floor | | | | | | [place], [place] | | | | | | [address] | | | | | | [phone] | | | +--------+ + + + [...]
--- OUTSIDE RECORDS SUMMARY | ~2019-10-16 | XMS | Encounter Summary ---
Demographics + + + | Address | [address] | | | [place] [address] | + + + | Home Phone [...] #[id number] [place] | | | | | [address] | | + + + + + | Bebe Terrazas | ECON | Unknown | Unavailable | + + + + + | Arden Terrazas | ECON | Unknown | | + + + + + Care Team Providers + +------+ + | Care Radial Arm Saw Operator Name | Role | Phone | + +------+ + | Yuriy aCrdenas PA-C | PCP | | + +------+ [...] + + | 07/12/ | Emergency | [facility] Emergency | Kang Caba, | | | 2018 | | Department [address] | [address] | | | | | [address] | [address] | | | | | [facility] | [place], [place] | | | | | [place], [place] | [address] | | | | | [address] | [phone] | | | | | [phone] | | | | | | | Raúl Hill, | | | | | | YAO [address] | | | | | | [address] | | | | | | [place], [place] | | | | | | [address] | | | | | | [phone] | | | | | | | | | | | | Antonio Rodriguez, | | | | | | YAO [address] [facility] | | | | | | [facility] | | | | | | [place], [place] | | | | | | [address] | | | | | | [phone] | | | | | | | [...] 0.62 0.60 - 1.10 mg/dL EGFR - WALLISIAN >60 >60 mL/min EGFR NON -WALLISIAN >60 >60 mL/min SODIUM, PLASMA (LAB) 135 [...] [facility] | [address] | [place], [place] | | | RONAN MARSHALL OF CARE | [facility] | [address] | | | TESTS | | | [...] [facility] | [address] | [place] [address] | | | SERVICES, CORE | EDITH [...] (H) | 70 - 99 mg/dL | [facility] [...] WHITE | [address] | [place], [place] | | | RONAN MARSHALL OF CARE | [address] | [address] | | | TESTS | | | [...] | + + + + + | [facility] | [address] | [place] [address] | | | SERVICES, CORE | EDITH [...] DEPT OF | [address] | [place], [place] | | | CARDIOLOGY | [address] | [address] | | + + + + + [...] DEPT OF | [address] | [place], [place] | | | CARDIOLOGY | [address] | [address] | | + + + + + [...] at | | | 3:53 AM by bank president Dr. Kamara I have personally | | | reviewed the images and, if necessary, edited the report. I agree | | | with the report as now presented. | | + + + + + | Procedure Note | + + | Service Account, RadiPivot Res In Interface - 07/12/2017 8:03 AM [...] the emergency department at 3:53 AM by bank president . | | Speedy have personally reviewed [...] | + + + + + | [facility] | [address] | [place] [address] | | | SERVICES, TIMMY | EDITH [...] Note | + + | Service Account, MakeSpace In Interface - 07/12/2017 9:07 AM PDT [...] CINDY | [address] | [place], [place] | | | RONAN MARSHALL OF BRAEDEN | [address] | [address] | | | TESTS | | | [...] | + + + + + | [facility] | [address] | [place] [address] | | | SERVICES, CORE | EDITH [...] DEPT OF | [address] | [place], [place] | | | CARDIOLOGY | [address] | [address] | | + + + + + [...] [facility] | [address] | [place] [address] | | | QUANG, TIMMY | [address] | | | + + + + + MAGNESIUM, PLASMA (07/12/2017 12:22 AM PDT) + +-------+ + + + | Component | Value | Ref Range | Performed | Pathologist | | | | | At | Signature | + +-------+ + + + | MAGNESIUM,P | 2.1 | 1.6 - 2.6 mg/dL | [facility] | | | LASMA | | | [...] [facility] | [address] | [place] [address] | | | SERVICES, CORE | EDITH [...] [facility] | [address] | [place] [address] | | | SERVICES, CORE | [address] | | | + + + + + INR (07/12/2017 12:22 AM PDT) + +-------+ + + + | Component | Value | Ref Range | Performed | Pathologist | | | | | At | Signature | + +-------+ + + + | INR | 0.91 | 0.90 - 1.20 INR | [facility] | | | | | | LABORATORY [...] | [facility] | [address] | [place] [address] | | | SERVICES, CORE | EDITH [...] | | | LABORATORY | | | [place] | | | SERVICES, | | | [...] | + + + + + | [facility] | [address] | [place] [address] | | | QUANG, TIMMY | [address] | | | + + + + + ED INFORMATION EXCHANGE (07/12/2017 12:20 AM PDT) + + | Specimen | + + | | + + + + + | Narrative | Performed At | + + + | [id number] This patient has registered at the | [facility] | | [facility] Emergency Department For more | MEDICAL | | information visit: | TECHNOLOGIES | | [email or web address] | | | [email or web address] Security Events No recent Security Events currently on file | | | ED Care Guidelines There are currently no ED Care Guidelines in | | | KIMANI for this patient. Please check your facility's medical records | | | system. Care History Medical/Surgical 05/01/17 12:00 AM [facility] Pelayo | | | [facility] Recommendation: This patient has had 5 or [...] | | | Community Health WorkerDora at [phone]. These are | | | guidelines and the provider should exercise clinical judgment when | | | providing care. Recent Emergency Department Visit Summary | | | Admit Date Facility City State Type Major Type Diagnoses or Chief | | | Complaint July 12, 2017 [facility] [place] | | | [place] Emergency Emergency 10,800. CP May 23, 2017 [facility] | | | [facility]. [place] Emergency Emergency back pain | | | [...] | | | diabetes mellitus without complications FDC (current) use | | | of insulin Essential (primary) hypertension Latex allergy | | | status Apr 10, 2017 [facility]. [place] Emergency | | | Emergency dental pain Dental caries, unspecified | | | Mar 01, 2017 [facility] [place] [place] Emergency Emergency | | | Precordial pain Other nonspecific abnormal finding of lung | | | field Nicotine dependence, unspecified, uncomplicated Long | | | term (current) use of insulin Old myocardial infarction | | | Allergy status to narcotic agent status FDC (current) use | | | of aspirin Essential (primary) hypertension Unspecified | | | asthma, uncomplicated Other nursing home (current) drug therapy | | | Nov 22, 2016 [facility] [place] [place] Emergency Emergency | | | Acquired absence of other specified parts of digestive tract | | | FDC (current) use of insulin Other nursing home (current) | | | drug therapy Presence of coronary angioplasty implant and graft | | | gas brazer (current) use of aspirin Essential (primary) | | | hypertension Latex allergy status Unspecified asthma, | | | uncomplicated Dental caries, unspecified Allergy status to | | | narcotic agent status Nov 17, 2016 [facility]. [place] | | | Emergency Emergency Nicotine dependence, unspecified, | | | uncomplicated Acquired absence of other specified parts of | | | digestive tract OVEREXERTION FROM STRENUOUS MOVEMENT OR LOAD, | | | INIT FDC (current) use of insulin Allergy status to | | | narcotic agent status Type 2 diabetes mellitus without | | | complications Other tour manager (current) drug therapy Type | | | 1 diabetes mellitus without complications Strain of muscle, | | | fascia and tendon at neck level, initial encounter Allergy | | | status to sulfonamides status Aug 15, 2016 [facility] ED | | | [place] Emergency Emergency dental pain Other | | | specified disorders of teeth and supporting structures | | | Recent Inpatient Visit Summary Admit Date Facility [facility] State Type | | | Major Type Diagnoses or Chief Complaint Jun 18, 2017 [facility] | | | [facility] anti coagulation | | | [place] Malignant neoplasm of lower lobe, left bronchus or lung | | | Other specified postprocedural states Other disorders of | | | lung Acute respiratory failure with hypoxia Jun 04[facility] 2017 [facility] Inpatient Left lower | | | lobe carcinoma Feb 13, 2017 [facility] | | | Intensive Care Inpatient ST elevation (STEMI) myocardial | | | infarction of unspecified site Abnormal levels of other serum | | | enzymes Essential (primary) hypertension Type 2 diabetes | | | mellitus with other specified complication gas brazer (current) | | | use of insulin Chest pain, unspecified Acute on chronic | | | systolic (congestive) heart failure ST elevation (STEMI) | | | myocardial infarction involving left anterior descending coronary | | | artery E.D. Visit Count (12 mo.) Facility Visits [place] | | | [facility] 1 [facility] ED 3 [facility] | | | [facility] 4 Total 8 Note: Visits indicate [...] | | facilities for additional information. 2018 [employer] | | | [employer] - [place], [place] - | | | [email or web address] | | + + + + + | Procedure Note | + + | Service Account, Rtf Results Inbound - 07/12/2017 12:22 AM PDT Formatting of this | | note might be different from the original.KIMANI?NOTIFICATION?07/12/2017 00:20?WILBER, | | MARY Lobato? patient has registered at the [facility] [place] | | [facility] Department For more information visit: | | [email or web address] Security | | EventsNo recent Security Events [...] Community Health Worker | | Dora at [phone].These are guidelines and the provider should exercise clinical | | judgment when providing care.Recent Emergency Department Visit SummaryAdmit Date | | Facility City State Type Major Type Diagnoses or Chief Complaint July 12, 2017 [place] | | [facility] [place] Emergency Emergency 10,800. CP May 23, 2017 | | [facility] [place] [place] Emergency Emergency back pain Dorsalgia, | | unspecified Apr 30, 2017 [facility] [place] Emergency Emergency Allergy | | status to sulfonamides status Nicotine dependence, unspecified, uncomplicated | | Other nursing home (current) drug therapy Anxiety disorder, unspecified Allergy | | status to other drugs, medicaments and biological substances status Allergy status to | | narcotic agent status Type 2 diabetes mellitus without complications gas brazer | | (current) use of insulin Essential (primary) hypertension Latex allergy status | | Apr 10, 2017 [facility] ED [facility] Emergency Emergency dental pain | | Dental caries, unspecified Mar 01, 2017 [facility] [place] [place] Emergency | | Emergency Precordial pain Other nonspecific abnormal finding of lung field | | Nicotine dependence, unspecified, uncomplicated FDC (current) use of insulin | | Old myocardial infarction Allergy status to narcotic agent status FDC | | (current) use of aspirin Essential (primary) hypertension Unspecified asthma, | | uncomplicated Other tour manager (current) drug therapy Nov 22, 2016 [facility] | | [place] Emergency Emergency Acquired absence of other specified parts of | | digestive tract gas brazer (current) use of insulin Other tour manager (current) drug | | therapy Presence of coronary angioplasty implant and graft [facility]DC (current) use | | of aspirin Essential (primary) hypertension Latex allergy status Unspecified | | asthma, uncomplicated Dental caries, unspecified Allergy status to narcotic agent | | status Nov 17, 2016 [facility] [place] [place] Emergency Emergency Nicotine | | dependence, unspecified, uncomplicated Acquired absence of other specified parts of | | digestive tract OVEREXERTION FROM STRENUOUS MOVEMENT OR LOAD, INIT gas brazer | | (current) use of insulin Allergy status to narcotic agent status Type 2 diabetes | | mellitus without complications Other nursing home (current) drug therapy Type 1 | | diabetes mellitus without complications Strain of muscle, fascia and tendon at neck | | level, initial encounter Allergy status to sulfonamides status Aug 15, 2016 [facility] | | [facility] ED [facility] Emergency Emergency dental pain Other specified | | disorders of teeth and supporting structures Recent Inpatient Visit SummaryAdmit Date | | Facility [facility] State Type Major Type Diagnoses or Chief Complaint Jun 18, 2017 [facility] | | Anthony Guerrero [place] Cardiology Inpatient anti coagulation [place] Malignant | | neoplasm of lower lobe, left bronchus or lung Other specified postprocedural states | | Other disorders of lung Acute respiratory failure with hypoxia Jun 04, 2017 [facility] | | Anthony Guerrero [place] Surgery Inpatient Left lower lobe carcinoma Feb 13, 2017 | | [facility] Bahman Lakhani. [place] Intensive Care Inpatient ST elevation (STEMI) | | myocardial infarction of unspecified site Abnormal levels of other serum enzymes | | Essential (primary) hypertension Type 2 diabetes mellitus with other specified | | complication gas brazer (current) use of insulin Chest pain, unspecified Acute | | on chronic systolic (congestive) heart failure ST elevation (STEMI) myocardial | | infarction involving left anterior descending coronary artery E.D. Visit Count (12 | | mo.)Facility Visits [facility] 1 [facility] ED 3 [facility] | | [facility] 4 Total 8 Note: Visits indicate [...] for additional information. ? | | 2018 [facility]. [place], [place] - | | [email or web address] | | Essential (primary) hypertension | | Latex allergy status | | Unspecified asthma, uncomplicated | | Dental caries, unspecified | | Allergy status to narcotic agent status | | | |Nov 17, 2016 [facility]. [place] Emergency Emergency | | Nicotine dependence, unspecified, uncomplicated | | Acquired absence of other specified parts of digestive tract | | OVEREXERTION FROM STRENUOUS MOVEMENT OR LOAD, INIT | | gas brazer (current) use of insulin | | Allergy status to narcotic agent status | | Type 2 diabetes mellitus without complications | | Other tour manager (current) drug therapy | | Type 1 diabetes mellitus without complications | | Strain of muscle, fascia and tendon at neck level, initial encounter | | Allergy status to sulfonamides status | | | |Aug 15, 2016 [facility] [place] [place] Emergency Emergency | | dental pain | | Other specified disorders of teeth and supporting structures | | | | | | | |Recent Inpatient Visit Summary | |Admit Date Facility City State Type Major Type Diagnoses or Chief Complaint | |Jun 18, 2017 [facility] Bahman Morales. [place] Cardiology Inpatient | | anti coagulation | | [place] | | Malignant neoplasm of lower lobe, left bronchus or lung | | Other specified postprocedural states | | Other disorders of lung | | Acute respiratory failure with hypoxia | | | |Jun 04, 2017 [facility] Anthony Morales. [place] Surgery Inpatient | | Left lower lobe carcinoma | | | |[facility] [place] [facility] | | ST elevation (STEMI) myocardial infarction of unspecified site | | Abnormal levels of other serum enzymes | | Essential (primary) hypertension | | Type 2 diabetes mellitus with other specified complication | | gas brazer (current) use of insulin | | Chest pain, unspecified | | Acute on chronic systolic (congestive) heart failure | | ST elevation (STEMI) myocardial infarction involving left anterior descending coronary a rtery | | | | | | | |E.D. Visit Count (12 mo.) | |Facility Visits | |[facility] 1 | |[facility] ED 3 | |[facility] 4 | |Total 8 | |Note: [...] facilities for additional information. | |? 2018 [facility]. - [place], [place] - [email or web address] | + + + + + + + | Performing | Address | City/State/Zipcode | Phone Number | | Organization | | | | + + + + + | [facility] | [address] | [place], [place] | [phone] | | TECH[employer]OLOGIES | [address] | [address] | | + + + + + [...] | | | | ONCE, 1 dose, [facility] 07/12/17 at 0215 | | AM PDT | | | | + +---------+ + +---+---+ +---+---+ | | | +---+---+ documented in this encounter"
--- OUTSIDE RECORDS SUMMARY | ~2019-10-16 | XMS | Encounter Summary ---
Demographics + + + | Address | [address] [facility] [address] | | | [place] [address] | + + + | Home Phone | | + + + | Preferred Language | Unknown | + + + | Marital Status | | + + + | Worship Affiliation | 1013 | + + + | Race | Unknown | + + + | Ethnic Group | Unknown | + + + Author + + + | Author | [facility] | | | and Juan Joséana | + + + | Organization | [facility] [...] [place] | | | | | [address] | | + + + + + | Bebe Merino | ECON | [address] | | | | [place], [place] | | | | | [address] | | + + + + + Care Team Providers + +------+ + | Care Order Clerk Name | Role | Phone | + +------+ + | Ki Senior NP | PCP | | + +------+ + Encounter Details +--------+ + + + + | Date | Type | Department | Care Team | Description | +--------+ + + + + | 05/10/ | Orders Only | [facility] | Madhu Pineda | | | 2015 | | [place] | MD [address] | | | | | ECHO [address] | [address] | | | | | DR [place], [place] | [place] [address] | | | | | [address] | [phone] | | | | | [phone] | | | +--------+ + + + [...] + | ECHO COMPLETE | Routin | 05/11/2015 | | Results for this | | | e | 2:30 PM | | procedure are in the | | | | PST | | results section. | + +--------+ + + + documented in this encounter Results ECHO Complete (05/11/2015 2:30 PM PST) + + | Specimen | + + | | + + + + + | Impressions | Performed At | + + + | 1. This was a technically difficult study with suboptimal views. 2. | | | Overall left ventricular systolic function is normal with, an EF | | | between 55 - 60 %. | | + + + + + + | Narrative | Performed At | + + + | Patient Name: MARY MERINO Date of : 1970 | | | Performing Physician: MADHU PINEDA MD | | | | | | INDICATIONS Angina, CAD CONCLUSIONS 1. | | | This was a technically difficult study with suboptimal views. 2. | | | Overall left ventricular systolic function is normal with, an EF | | | between 55 - 60 %. FINDINGS -------- ECG rhythm: Sinus rhythm. | | | Study: A 2-dimensional transthoracic echocardiogram with m-mode, | | | spectral and color flow Doppler was perfomed. Study: This was a | | | technically difficult study with suboptimal views. Left Ventricle: | | | Overall left ventricular systolic function is normal with, an EF | | | between 55 - 60 %. Left Ventricle: The left ventricle cavity size is | | | normal. Left Ventricle: Left ventricular wall thickness is normal. | | | Left Ventricle: No regional wall motion abnormalities. Left | | | Ventricle: The diastolic filling pattern is normal for the age of the | | | patient. Right Ventricle: The right ventricle is normal in size and | | | function. Left Atrium: The left atrial size is normal. Right Atrium: | | | The right atrial size is normal. Aortic Valve: The aortic valve is | | | trileaflet and appears structurally normal. Aortic Valve: There is no | | | evidence of aortic regurgitation. Aortic Valve: There is no evidence | | | of aortic stenosis. Mitral Valve: The mitral valve is normal. | | | Mitral Valve: There is trace mitral regurgitation. Tricuspid Valve: | | | The tricuspid valve appears structurally normal. Tricuspid Valve: | | | Pulmonary artery systolic pressure could not be assessed due to the | | | absence of adequate TR jet. Pulmonic Valve: The pulmonic valve was | | | not well visualized. Pericardium: There is no pericardial effusion. | | | IVC/Hepatic Veins: The IVC was not well visualized. Aorta: The aortic | | | root, ascending aorta and aortic arch are normal. Mass: No mass | | | visualized Thrombus: No clot visualized Thrombus: No vegetation | | | visualized. Septum: No ASD observed. Septum: No VSD observed. | | | MEASUREMENTS Ao asc: 3.27 cm LA Major: 4.95 cm | | | EDV(Teich): 121.75 ml IVSd: 1.07 cm LVIDd: 5.06 cm LVPWd: | | | 0.98 cm LVOT Area: 3.85 cm2 LVOT Diam: 2.21 cm %FS: | | | 28.64 % EF(Teich): 54.91 % ESV(Teich): 54.89 ml LVIDs: | | | 3.61 cm SV(Teich): 66.85 ml RA Major: 4.59 cm RVIDd: 2.82 | | | cm LVEF MOD A2C: 54.48 % SV MOD A2C: 33.18 ml LVEF MOD A4C: | | | 56.10 % SV MOD A4C: 37.42 ml EF Biplane: 54.76 % LVEDV MOD | | | BP: 63.85 ml LVESV MOD BP: 28.88 ml LVEDV MOD A2C: 60.90 | | | ml LVLd A2C: 7.54 cm LVEDV MOD A4C: 66.69 ml LVLd A4C: | | | 7.50 cm LVESV MOD A2C: 27.72 ml LVLs A2C: 6.84 cm LVESV MOD | | | A4C: 29.27 ml LVLs A4C: 6.56 cm LAESV(A-L): 46.31 ml LAESV | | | Index (A-L): 23.04 ml/m2 LAAs A2C: 15.03 cm2 LAESV A-L A2C: | | | 41.72 ml LALs A2C: 4.59 cm LAAs A4C: 16.29 cm2 LAESV A-L | | | A4C: 50.19 ml LALs A4C: 4.48 cm Ao Diam: 2.95 cm LA Diam: | | | 4.20 cm LA/Ao: 1.42 AV maxP.66 mmHg AV meanP.32 | | | mmHg AV Vmax: 1.29 m/s AV Vmean: 0.83 m/s AV VTI: 20.00 | | | cm MATILDA Vmax: 3.26 cm2 MATILDA (VTI): 3.60 cm2 LVOT maxP.79 | | | mmHg LVOT meanP.48 mmHg LVSI Dopp: 35.91 ml/m2 LVSV | | | Dopp: 72.19 ml LVOT Vmax: 1.09 m/s LVOT Vmean: 0.74 m/s | | | LVOT VTI: 18.73 cm MV A Kenny: 0.69 m/s MV Dec [place]: 3.89 | | | m/s2 MV DecT: 180.65 ms MV E Kenny: 0.70 m/s MV E/A Ratio: | | | 1.01 MV PHT: 52.38 ms MVA By PHT: 4.19 cm2 Septal e': 0.09 | | | m/s Septal E/e': 7.45 Lateral e': 0.08 m/s Lateral E/e': | | | 8.36 RAP: 5 mmHg Set Up And Charger: BRENT Authenticated by: MADHU | | | MIRIAM ADLER Report Date/Time: 05-13-2015 10:56:32 | | + + + + + | Procedure Note | + + | Ross Worley Conversion - 10/23/2018 9:04 PM PDT Patient Name: Lopez MERINO of | | : 1970 Performing Physician: MADHU PINEDA | | INDICATIONS A | | YONI villarreal CONCLUSIONS 1. This was a technically difficult study with | | suboptimal views.2. Overall left ventricular systolic function is normal with, an EF | | between 55 - 60 %. FINDINGS--------ECG rhythm: Sinus rhythm.Study: A 2-dimensional | | transthoracic echocardiogram with m-mode, spectral and color flow Doppler was | | perfomed.Study: This was a technically difficult study with suboptimal views.Left | | Ventricle: Overall left ventricular systolic function is normal with, an EF between 55 - | | 60 %.Left Ventricle: The left ventricle cavity size is normal.Left Ventricle: Left | | ventricular wall thickness is normal.Left Ventricle: No regional wall motion | | abnormalities.Left Ventricle: The diastolic filling pattern is normal for the age of the | | patient.Right Ventricle: The right ventricle is normal in size and function.Left | | Atrium: The left atrial size is normal.Right Atrium: The right atrial size is | | normal.Aortic Valve: The aortic valve is trileaflet and appears structurally | | normal.Aortic Valve: There is no evidence of aortic regurgitation.Aortic Valve: There is | | no evidence of aortic stenosis.Mitral Valve: The mitral valve is normal.Mitral Valve: | | There is trace mitral regurgitation.Tricuspid Valve: The tricuspid valve appears | | structurally normal.Tricuspid Valve: Pulmonary artery systolic pressure could not be | | assessed due to the absence of adequate TR jet.Pulmonic Valve: The pulmonic valve was | | not well visualized.Pericardium: There is no pericardial effusion.IVC/Hepatic Veins: The | | IVC was not well visualized.Aorta: The aortic root, ascending aorta and aortic arch are | | normal.Mass: No mass visualizedThrombus: No clot visualizedThrombus: No vegetation | | visualized.Septum: No ASD observed.Septum: No VSD observed. MEASUREMENTS Ao | | asc: 3.27 cmLA Major: 4.95 cmEDV(Teich): 121.75 mlIVSd: 1.07 cmLVIDd: 5.06 | | cmLVPWd: 0.98 cmLVOT Area: 3.85 gw6MVPM Diam: 2.21 cm%FS: 28.64 %EF(Teich): | | 54.91 %ESV(Teich): 54.89 mlLVIDs: 3.61 cmSV(Teich): 66.85 mlRA Major: 4.59 | | cmRVIDd: 2.82 cmLVEF MOD A2C: 54.48 %SV MOD A2C: 33.18 mlLVEF MOD A4C: 56.10 %SV | | MOD A4C: 37.42 mlEF Biplane: 54.76 %LVEDV MOD BP: 63.85 mlLVESV MOD BP: 28.88 | | mlLVEDV MOD A2C: 60.90 mlLVLd A2C: 7.54 cmLVEDV MOD A4C: 66.69 mlLVLd A4C: 7.50 | | cmLVESV MOD A2C: 27.72 mlLVLs A2C: 6.84 cmLVESV MOD A4C: 29.27 mlLVLs A4C: 6.56 | | cmLAESV(A-L): 46.31 mlLAESV Index (A-L): 23.04 ml/m2LAAs A2C: 15.03 [id number] A-L | | A2C: 41.72 mlLALs A2C: 4.59 cmLAAs A4C: 16.29 fv2JJWOX A-L A4C: 50.19 mlLALs | | A4C: 4.48 cmAo Diam: 2.95 cmLA Diam: 4.20 cmLA/Ao: 1.42AV maxP.66 mmHgAV | | meanP.32 mmHgAV Vmax: 1.29 m/Eddie Vmean: 0.83 m/Eddie VTI: 20.00 cmAVA Vmax: | | 3.26 cm2AVA (VTI): 3.60 eq4PHGV maxP.79 mmHgLVOT meanP.48 mmHgLVSI Dopp: | | 35.91 ml/m2LVSV Dopp: 72.19 mlLVOT Vmax: 1.09 m/sLVOT Vmean: 0.74 m/sLVOT VTI: | | 18.73 cmMV A Kenny: 0.69 m/sMV Dec [place]: 3.89 m/s2MV DecT: 180.65 msMV E Kenny: | | 0.70 m/sMV E/A Ratio: 1.01MV PHT: 52.38 msMVA By PHT: 4.19 bj9Ozyigy e': 0.09 | | m/sSeptal E/e': 7.45Lateral e': 0.08 m/sLateral E/e': 8.36RAP: 5 mmHg | | Set Up And Charger: TONYuthenticated by: MADHU Hess Date/Time: 05-13-2015 | | 10:56:32 IMPRESSION: 1. This was a technically difficult study with suboptimal views.2. | | Overall left ventricular systolic function is normal with, an EF between 55 - 60 %. | |Thrombus: No vegetation visualized. | |Septum: No ASD observed. | |Septum: No VSD observed. | | | |MEASUREMENTS | | | |Ao asc: 3.27 cm | |LA Major: 4.95 cm | |EDV(Teich): 121.75 ml | |IVSd: 1.07 cm | |LVIDd: 5.06 cm | |LVPWd: 0.98 cm | |LVOT Area: 3.85 cm2 | |LVOT Diam: 2.21 cm | |%FS: 28.64 % | |EF(Teich): 54.91 % | |ESV(Teich): 54.89 ml | |LVIDs: 3.61 cm | |SV(Teich): 66.85 ml | |RA Major: 4.59 cm | |RVIDd: 2.82 cm | |LVEF MOD A2C: 54.48 % | |SV MOD A2C: 33.18 ml | |LVEF MOD A4C: 56.10 % | |SV MOD A4C: 37.42 ml | |EF Biplane: 54.76 % | |LVEDV MOD BP: 63.85 ml | |LVESV MOD BP: 28.88 ml | |LVEDV MOD A2C: 60.90 ml | |LVLd A2C: 7.54 cm | |LVEDV MOD A4C: 66.69 ml | |LVLd A4C: 7.50 cm | |LVESV MOD A2C: 27.72 ml | |LVLs A2C: 6.84 cm | |LVESV MOD A4C: 29.27 ml | |LVLs A4C: 6.56 cm | |LAESV(A-L): 46.31 ml | |LAESV Index (A-L): 23.04 ml/m2 | |LAAs A2C: 15.03 cm2 | |LAESV A-L A2C: 41.72 ml | |LALs A2C: 4.59 cm | |LAAs A4C: 16.29 cm2 | |LAESV A-L A4C: 50.19 ml | |LALs A4C: 4.48 cm | |Ao Diam: 2.95 cm | |LA Diam: 4.20 cm | |LA/Ao: 1.42 | |AV maxP.66 mmHg | |AV meanP.32 mmHg | |AV Vmax: 1.29 m/s | |AV Vmean: 0.83 m/s | |AV VTI: 20.00 cm | |MATILDA Vmax: 3.26 cm2 | |MATILDA (VTI): 3.60 cm2 | |LVOT maxP.79 mmHg | |LVOT meanP.48 mmHg | |LVSI Dopp: 35.91 ml/m2 | |LVSV Dopp: 72.19 ml | |LVOT Vmax: 1.09 m/s | |LVOT Vmean: 0.74 m/s | |LVOT VTI: 18.73 cm | |MV A Kenny: 0.69 m/s | |MV Dec [place]: 3.89 m/s2 | |MV DecT: 180.65 ms | |MV E Kenny: 0.70 m/s | |MV E/A Ratio: 1.01 | |MV PHT: 52.38 ms | |MVA By PHT: 4.19 cm2 | |Septal e': 0.09 m/s | |Septal E/e': 7.45 | |Lateral e': 0.08 m/s | |Lateral E/e': 8.36 | |RAP: 5 mmHg | | | |Set Up And Charger: BRENT | |Authenticated by: MADHU PINEDA MD | |Report Date/Time: 05-13-2015 10:56:32 | | | |IMPRESSION: | |1. This was a technically difficult study with suboptimal views. | |2. Overall left ventricular systolic function is normal with, an EF between 55 - 60 %. | + + documented in this encounter Visit Diagnoses Not on filedocumented in this encounter"
--- OUTSIDE RECORDS SUMMARY | ~2019-10-16 | XMS | Encounter Summary ---
Demographics + + + | Address | [address] | | | [place] [address] | + + + | Home Phone [...] #[place] | | | | | [address] | | + + + + + | Bebe Terrazas | ECON | Unknown | Unavailable | + + + + + | Arden Terrazas | ECON | Unknown | | + + + + + Care Team Providers + +------+ + | Care Dry Ice Machine Operator Name | Role | Phone [...] + + | 01/08/ | Telephone | [facility] | Yuriy Cardenas, | [employer] | | 2019 | | at [place] [address] | PA-C [address] | | | | [facility] | [facility] | | | | | [facility] [place], [place] | [place], [place] | | | | | [address] | [address] | | | | | [phone] | [phone] | | | | | | | [...]
--- OUTSIDE RECORDS SUMMARY | ~2019-10-16 | XMS | Encounter Summary ---
Demographics + + + | Address | [address] | | | [place] [address] | + + + | Home Phone [...] #[place] | | | | | [address] | | + + + + + | Bebe Terrazas | ECON | Unknown | Unavailable | + + + + + | Arden Terrazas | ECON | Unknown | | + + + + + Care Team Providers + +------+ + | Care End Frazer Name | Role | Phone | + [...] | | | [facility] | [place], [place] | | | | | [facility], | [address] | | | | | [facility] | [phone] | | | | | [place], [place] | | | | | | [address] | | | | | | [phone] | | | +--------+ + + + [...]
--- OUTSIDE RECORDS SUMMARY | ~2019-10-16 | XMS | Encounter Summary ---
Demographics + + + | Address | [address] | | | [place] [address] | + + + | Home Phone | | + + + | Preferred Language | Unknown | + + + | Marital Status | | + + + | Amish Affiliation | 1013 | + + + | Race | Unknown | + + + | Ethnic Group | Unknown | + + + Author + + + | Author | [facility] | | | and [place] | + + + | Organization | [facility] | | | and [place] | + + + | Address | Unknown | + + + | Phone | Unavailable | + + + Support + + + + + | Name | Relationship | Address | Phone | + + + + + | Dustin Terrazas | ECON | [place] | | | | | [address] | | + + + + + | Bebe Terrazas | ECON | [address] | | | | | [place], [place] | | | | | [address] | | + + + + + Care Team Providers + +------+ + | Care Sr. Manager Corporate Communications Name | Role | Phone | + +------+ + PCP | Unavailable | + +------+ + Encounter Details +--------+ + + + + | Date | Type | Department | Care Team | Description | +--------+ + + + + | 08/15/ | Emergency | [facility] | [place], | Pain, dental | | 2017 | | [facility] | Amanda Christina PA-C [address] | | | | | [facility] [place] | [address] [place], | | | | | [address] | [place] [address] | | | | | [place], [place] | [phone] | | | | | [address] | | | | | | [phone] | | | +--------+ + + + [...] + + + | Blood Pressure | 141/83 | 08/15/2016 7:37 PM | | | | | PDT | | + + + + + | Pulse | 99 | 08/15/2016 7:37 PM | | | | | PDT | | + + + + + | Temperature | 36.7 C (98.1 F) | 08/15/2016 7:37 PM | | | | | PDT | | + + + + + | Respiratory Rate | 20 | 08/15/2016 7:37 PM | | | | | PDT | | + + + + + | Oxygen Saturation | - | - | | + + + + + | Inhaled Oxygen | - | - | | | Concentration | | | | + + + + + | Weight | 93.4 kg (205 lb 14.6 | 08/15/2016 7:37 PM | | | | oz) | PDT | | + + + + + | Height | 167.6 cm (5' 6") | 08/15/2016 7:37 PM | | | | | PDT | | + + + + + | Body Mass Index | 33.24 | 08/15/2016 7:37 PM | | | | | PDT [...] Inhale 1-2 puffs | | 0 | //20 | | | mcg/puff inhaler | into [...] documented as of this encounter ED Notes Amanda Negron PA-C - 08/15/2016 7:25 PM PDTFormatting of this note might be diffe rent from the original. ED Provider Notes by Amanda Negron PA-C at 08/15/161924 Author: Amanda Negron PA-C Service: Emergency Department Author Type: Physician A ssistant - Certified Filed: 08/15/161941 Date of Service: 08/15/161924 Status: Attested Sql Data Architect: Amanda Negron PA-C (Physician Residential Collections - Certified) Cosigner: Antonio timmons MD at 08/15/162006 Attestation signed by Antonio De MD at 08/15/162006 I have reviewed the note and supervised the APC. Procedures [facility] [place] History of Present Illness Patient Identification Nancy Terrazas is a 45 y.o. female. Patient information was obtained from patient. History/Exam limitations: none. Patient presented to the Emergency Department by: Car Chief Complaint Chief Complaint Patient presents with Dental Pain 45 year old female to the ED for treatment of dental pain. Patient reports symptoms starte d 2 to 3 days ago to the right lower jaw. She describes the pain as throbbing that is const ant and worsening. No fever or facial swelling. She states that she has no dental insuranc e and "can't get anyone to see me." Pain has not been relieved with over the counter medica tions. 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 Authorizing Provider amLODIPine (NORVASC) 2.5 MG tablet Take 1 tablet by mouth daily. 07/16/16 07/16/17 Yes Kari Liu MD aspirin 81 MG tablet Take 81 mg by mouth daily. Yes Historical Provider atorvastatin (LIPITOR) 40 MG tablet Take 1 tablet by mouth nightly. 07/16/16 07/16/17 Yes Garfield Liu MD insulin aspart (NOVOLOG) 100 UNIT/ML injection Inject into the skin 3 (three) times daily before meals. Indications: Insulin-Dependent Diabetes Yes Historical Provider insulin detemir (LEVEMIR) 100 UNIT/ML injection Inject 60 Units into the skin nightly. Ye s Historical Provider losartan (COZAAR) 25 MG tablet Take 1 tablet by mouth daily. Indications: High Blood Pressu re 07/16/16 Yes Madhu Liu MD nitroGLYCERIN (NITROSTAT) 0.[address] 1 tablet under the tongue every 5 (five) m inutes as needed for Chest pain. 07/25/16 07/25/17 Yes Pilo Ocampo MD prasugrel (EFFIENT) 10 MG TABS Take 1 tablet by mouth daily. 07/16/16 Yes Madhu diaz MD albuterol (PROVENTIL HFA;VENTOLIN HFA) 108 (90 BASE) MCG/ACT inhaler Inhale 2 puffs into th e lungs every 4 (four) hours as needed for Wheezing. Historical Provider gemfibrozil (LOPID) 600 MG tablet Take 1 tablet by mouth 2 (two) times daily before meals. 05/04/15 07/25/16 Jordan Smiley MD isosorbide mononitrate (IMDUR) 60 MG 24 hr tablet Take 0.5 tablets by mouth daily. 07/16/16 07/16/17 Madhu Liu MD pregabalin (LYRICA) 75 MG capsule Take 75 mg by mouth as needed. Historical Provider Allergies Allergen Reactions Latex Hives Sulfa Antibiotics Rash Codeine Nausea and Vomiting Social History Social History Marital Status: Spouse Name: N/A Number of Children: N/A Years of Education: N/A Occupational History Not on file. Social History Main Topics Smoking status: Current Every Day Smoker -- 1.00 packs/day for 20 years Smokeless tobacco: Never Used Alcohol Use: No Drug Use: Yes Special: Marijuana Comment: occasional Sexual Activity: Partners: Male Control/ Protection: Surgical-Self Other Topics Concern Not on file Social History Narrative History reviewed. No pertinent family history. ROS Review of Systems Constitutional: Negative for fever and chills. HENT: Dental pain All other systems reviewed and are negative. Physical Exam BP 141/83 mmHg | Pulse 99 | Temp(Src) 98.1 F (36.7 C) (Oral) | Resp 20 | Ht 1.676 m (5' 6") | Wt 93.4 kg (205 lb 14.6 oz) | BMI 33.25 kg/m2 | SpO2 97% Pulse Oximetry interpretation: Normal General: Alert, in no apparent distress with normal vitals as above. Eyes: Normal inspection, pupils equal and round ENT: Molars missing from lower right, but large filling noted to remaining teeth that are tender to percussion. NO obvious gingival swelling or abscess. Neck: Normal inspection Supple No lymphadenopathy No meningismus Cardiovascular: Rate and rhythm normal No murmurs Respiratory: Breath sounds normal bilaterally. Respirations are non-labored Genitourinary: Deferred Rectal exam: Deferred Skin: Color normal Warm and dry No rash Neuro: No motor deficit No sensory deficit Normal gait. Alert and oriented. Purposeful movement. ED Course Medical Decision Making and Emergency Department Course No obvious dental abscess but review of records reveals that the patient does not have an E alert and has not been seen here for dental pain in the past. I will start her on antib iotics, steroids and a few pain pills. Advised her that she will have to see a dentist for definitive care. She has verbalized understanding of these instructions. ED Department Course Records Reviewed Old medical records.reviewed are nrelated to today's visit. Labs & Radiology Results Laboratory Evaluation Results None Radiology and EKG Evaluation Imaging Results None Diagnosis & Disposition ED Diagnosis Final diagnosis Pain, dental Disposition: ED Disposition Discharge Condition at discharge: Stable Follow-up Information Follow up With Details Comments Contact Info [facility] [address] [place] [address] [facility] [address] [place] [phone] [facility] Schedule an appointment as soon as possible for a visit first availabl [place] [address] [facility] [id number] Discharge Medications: Discharge Medication List as of 08/15/2016 7:32 PM START taking these medications Details HYDROcodone-acetaminophen (NORCO) 5-325 MG per tablet Take 1 tablet by mouth every 4 (four) hours as needed for Pain., Starting 08/15/2016, Until 08/25/16, Print penicillin v potassium (VEETID) 500 MG tablet Take 1 tablet by mouth 4 (four) times daily., Starting 08/15/2016, Until Discontinued, Print predniSONE (DELTASONE) 20 MG tablet Take 2 tablets by mouth daily., Starting 08/15/2016, Unt il 08/20/16, Print Amanda Negron PA-C 08/15/161941 Antonio De MD 08/15/162006 onversion T angel, Provider Unknown - 08/15/2016 7:12 PM PDTFormatting of this note might be diffe rent from the original. ED Notes by Kristin Baugh RN at 08/15/161911 Author: Kristin Baugh RN Service: (none) Author Type: Registered Nurse Filed: 08/15/161911 Date of Service: 08/15/161911 Status: Signed Sql Data Architect: Kristin Baugh RN (Registered Nurse) Left lower jaw pain for the last week, one molar broken off. Kristin Baugh RN 08/15/161911 docume nted in this encounter Plan of Treatment Not on filedocumented as of this encounter Visit Diagnoses + + | Diagnosis | + + | Pain, dental Unspecified disorder of the teeth and supporting structures | + + documented in this encounter
--- OUTSIDE RECORDS SUMMARY | ~2019-10-16 | XMS | Encounter Summary ---
Demographics + + + | Address | [address] | | | [place] [address] | + + + | Home Phone [...] [place] | | | | | [address] | | + + + + + | Bebe Terrazas | ECON | Unknown | Unavailable | + + + + + | Arden Terrazas | ECON | Unknown | | + + + + + Care Team Providers + +------+ + | Care Stitch Bonder Machine Operator Helper Name | Role | Phone [...] + + | 09/26/ | Office | [facility] Primary Care | Yuriy Cardenas, | Type 2 diabetes | | 2018 | Visit | at [place] [address] | PA-C [address] Old | mellitus with | | | | [address] | [address] | diabetic | | | | [facility] [place], [place] | [place], [place] | polyneuropathy, with | | | | [address] | [address] | long-term current | | | | [phone] | [phone] | use of insulin (HCC) | | | | | | (Primary Dx); | | | | | | Atherosclerosis of | | | | | | atka coronary | | | | | | artery of atka | | | | | | heart [...] - 09/26/2018 2:20 PM PDTIn accordance with department of veterans affairs [...] check home BP's regularly. Met with new back up scan coordinator. Has had to use NTG about 3x per month for chest pain, was told by back up scan coordinator this was a r easonable range given her issues. Saw oncologist at [facility] but he is having to leave [...] Z79.4 HEMOGLOBIN A1C, BLOOD 2. 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 | | | [...] | + + + + + | [facility] | [address] | [place] [address] | | | SERVICES, CORE | PARK [...] | [facility] | | considered for monitoring watermelon inspector glycemic control in patients with: | LABORATORY [...] [facility] | [address] | [place] [address] | | | SERVICES, SPECIAL | PARK [...] | | | LABORATORY | | | [facility] | | | SERVICES, | | | [...] MDRD equation recommended by the National | [facility] | | Kidney Disease Education [...] [facility] | [address] | [place] [address] | | | SERVICES, CORE | [address] | | | + + + + + documented in this encounter Visit Diagnoses + + | Diagnosis | + + | Type 2 diabetes mellitus with diabetic polyneuropathy, with long-term current use of | | insulin (HCC) - Primary | + + | 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
--- OUTSIDE RECORDS SUMMARY | ~2019-10-16 | XMS | Encounter Summary ---
Demographics + + + | Address | [address] | | | [place] [address] | + + + | Home Phone | | + + + | Preferred Language | Unknown | + + + | Marital Status | | + + + | Gnosticist Affiliation | PRE | + + + [...] [place], [place] | | | | | [address] | | + + + + + | Bebe Merino | ECON | Unknown | Unavailable | + + + + + | Arden Hammondi | ECON | Unknown | | + + + + + Care Team Providers + +------+ + | Care Office Administrator Name | Role | Phone | [...] [address] | [address] [facility] | | | | | [place], [place] | [address] [place], | | | | | [address] | [place] [address] | | | | | | [phone] | | | | | | | [...] [facility] | [address] | [place], [place] | | | LAB | | [address] | | + + + + + | [facility] | [address] | [place] | | | LAB | | [address] | | + + + + + [...] [place] | | | LAB | | [address] | | + + + + + | [facility] | [address] | [place], [place] | | | LAB | | [address] | | + + + + + LAB OTHER (08/22/2012 1:15 PM PDT) + + + + + + | Component | Value | Ref Range | Performed | Pathologist | | | | | At | Signature | + + + + + + | MISC REF | 68492 dap 10-50 | | [facility] | | | TEST NAME | | | [facility] | | + + + + + + | MISC REF | See NoteComment: Test | | [facility] | | | TEST RESULT | name: DRUG ABUSE PANEL | | [facility] | | | | [...] [facility] | [address] | [place], [place] | | | LAB | | [address] | | + + + + + | [facility] | [address] | [place], [place] | | | LAB | | [address] | | + + + + + [...] | + + | Interface, [facility] 5:[address] [...] RADIOLOGY | [address] | [place] | [phone] | | | | [address] | | + + + + + [...] [facility] | [address] | [place], [place] | | | LAB | | [address] | | + + + + + | [facility] | [address] | [place], [place] | | | LAB | | [address] | | + + + + + [...] [facility] | [address] | [place], [place] | | | LAB | | [address] | | + + + + + | [facility] | [address] | [place], [place] | | | LAB | | [address] | | + + + + + [...] | + + + + + | [facility] | [address] | [place], [place] | | | LAB | | [address] | | + + + + + | [facility] | [address] | [place], [place] | | | LAB | | [address] | | + + + + + [...] | | RESULT | EUFEMIA | | [facility] | | | | [...] | | | | | | | [id number] SITE: | | | | | | [...] at: | | | | | | [facility] | | | | + + + + + + + + | Specimen | + + | | + + + + + + + | Performing | Address | City/State/Zipcode | Phone Number | | Organization | | | | + + + + + | [facility] | [address] | [place], [place] | | | LAB | | [address] | | + + + + + | [facility] | [address] | [place], [place] | | | LAB | | [address] | | + + + + + CULTURE, FUNGUS (08/14/2012 8:58 AM PDT) + + + + + + | Component | Value | Ref Range | Performed | Pathologist | | | | | At | Signature | + + + + + + | CULTURE | Patient:THELMA MERINOLY | | [facility] | | | RESULT | EUFEMIA | | [facility] | | | | [...] | | | | | | | [id number] SITE: | | | | | | [...] at: | | | | | | [facility] | | | | + + [...] [place] | | | LAB | | [address] | | + + + + + | [facility] | [address] | [place], [place] | | | LAB | | [address] | | + + + + + [...] | | | | | | | [id number] SITE: | | | | | | [...] at: | | | | | | [facility] | | | | + + + + + + + + | Specimen | + + | | + + + + + + + | Performing | Address | City/State/Zipcode | Phone Number | | Organization | | | | + + + + + | [facility] | [address] | [place], [place] | | | LAB | | [address] | | + + + + + | [facility] | [address] | [place], [place] | | | LAB | | [address] | | + + + + + documented in this encounter Visit Diagnoses Not on filedocumented in this encounter"
--- OUTSIDE RECORDS SUMMARY | ~2019-10-16 | XMS | Encounter Summary ---
Demographics + + + | Address | [address] | | | [place] [address] | + + + | Home Phone [...] [place] | | | | | [address] | | + + + + + | Bebe Terrazas | ECON | Unknown | Unavailable | + + + + + | Arden Terrazas | ECON | Unknown | | + + + + + Care Team Providers + +------+ + | Care Netsuite Developer Name | Role | Phone | [...] | | | at [facility] | [facility] | | | | | [address] | [place] [address] | | | | | [address] | | | | | | [place], [address] [place] [place] [address] | | | | | | [place], [place] | | | | | | [address] | | | | | | [phone] | | | +--------+ + + + [...] view image for the detailed interpretation from op5 results. | CARDIOLOGY | + + + + + | Procedure Note | + + | Interface, Cardiology Results - 12/24/2012 9:50 PM PDT Please click on view image | | for the detailed interpretation from [employer] results. | + + + + + + + | Performing | Address | City/State/Zipcode | Phone Number | | Organization | | | | + + + + + | [facility] | [address] | [place], [place] | | | CARDIOLOGY | [address] | [address] | | + + + + + documented in this encounter Visit Diagnoses + + | Diagnosis | + + | Preop examination - Primary Preoperative examination, unspecified | + + documented in this encounter"
--- OUTSIDE RECORDS SUMMARY | ~2019-10-16 | XMS | Encounter Summary ---
Demographics + + + | Address | [address] | | | [place] [address] | + + + | Home Phone [...] #[place] | | | | | [address] | | + + + + + | Bebe Terrazas | ECON | Unknown | Unavailable | + + + + + | Arden Nini | ECON | Unknown | | + + + + + Care Team Providers + +------+ + | Care Master Deputy Sheriff Court Security Name | Role | Phone | + [...] | | | [address], [address]nd floor | [place], [place] | | | | | [place], [place] | [address] | | | | | [address] | [phone] | | | | | [phone] | | | +--------+ + + + [...]
--- OUTSIDE RECORDS SUMMARY | ~2019-10-16 | XMS | Encounter Summary ---
Demographics + + + | Address | [address] | | | [place] [address] | + + + | Home Phone [...] [address] | Unavailable | | | | #[place], [place] | | | | | [address] | | + + + + + | Bebe Terrazas | ECON | Unknown | Unavailable | + + + + + | Arden Hammondi | ECON | Unknown | | + + + + + Care Team Providers + +------+ + | Care Veterans Contact Representative Name | Role | Phone | [...] | [address] | [address] | | | | | [place], [place] | [facility] | | | | | [address] | [place], [place] | | | | | | [address] | | | | | | [phone] | | | | | | | [...] + + documented in this encounter Results [facility] VENOUS DUPLEX LOWER EXTREMITY LT (07/25/2012 [...] + + | [facility] | [address] | [place], [place] | [phone] | | | | [address] | | + + + + + documented in this encounter Visit Diagnoses Not on filedocumented in this encounter"
--- OUTSIDE RECORDS SUMMARY | ~2019-10-16 | XMS | Encounter Summary ---
Demographics + + + | Address | [address] | | | [place] [address] | + + + | Home Phone [...] [place] | | | | | [address] | | + + + + + | Bebe Terrazas | ECON | Unknown | Unavailable | + + + + + | Arden Terrazas | ECON | Unknown | | + + + + + Care Team Providers + +------+ + | Care Charge Coordinator Name | Role | Phone | [...] | | | [address] | | [place], [place] | | | | | CONTR | | [address] | | | | | | | Phone: | | | | | | | [phone] | | | | | | | Fax: | | | | | | | [phone] | +--------+--------+ + + + + Encounter Details +--------+ + + + + | Date | Type | Department | Care Team | Description | +--------+ + + + + | 10/02/ | Hospital | Diagnostic Imaging | | | | 2012 | Encounter | Services at [facility] | | | | | | [address] | | | | | | [address] | | | | | | [facility] | | | | | | [place], [place] | | | | | | [address] | | | | | | [phone] | | | +--------+ + + + [...] [facility] | 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
--- OUTSIDE RECORDS SUMMARY | ~2019-10-16 | XMS | Encounter Summary ---
Demographics + + + | Address | [address] | | | [place] [address] | + + + | Home Phone [...] [place] | | | | | [address] | | + + + + + | Bebe Terrazas | ECON | Unknown | Unavailable | + + + + + | Arden Nini | ECON | Unknown | | + + + + + Care Team Providers + +------+ + | Care Polishing Machine Operator Name | Role | Phone [...] | +--------+ + + + + | 01/14/ | Telephone | Neurosurgery [address] | Sivakumar Tanner, | Medication | | 2012 | | [address] | [address] | | | | | Physician's | [place], [place] | | | | | [address], [facility] floor | [address] | | | | | [place], [place] | [phone] | | | | | [address] | | | | | | [phone] | | | +--------+ + + + [...]
--- OUTSIDE RECORDS SUMMARY | ~2019-10-16 | XMS | Encounter Summary ---
Demographics + + + | Address | [address] | | | [place] [address] | + + + | Home Phone [...] [place] | | | | | [address] | | + + + + + | Bebe Terrazas | ECON | Unknown | Unavailable | + + + + + | Arden Terrazas | ECON | Unknown | | + + + + + Care Team Providers + +------+ + | Care Pearl Diver Name | Role | Phone | + [...] + + + + | 12/23/ | Anesthesia | 6A Intra Op 3181 | Trev Aguillon, | | | 2012 | Event | [address] [address] | ,PhD [address] | | | | | [facility] | [address] | | | | | Hospital Admitting | [place], [place] | | | | | Desk Located on the | [address] | | | | | 9th floor | [phone] | | | | | [place], [place] | | | | | | [address] | Hollie Small MD | | | | | | [address] | | | | | | [address] | | | | | | [place], [place] | | | | | | [address] | | | | | | [phone] | | | | | | | | +--------+ + + + + Anesthesia Record + + + + + | Procedure Name | Responsible | Anesthesia Start | Anesthesia Stop Time | | | Anesthesiologist | Time | | + + + + + | EXTREME LATERAL | Per Rahul Aguillon, | 12/23/12 1032 | 12/23/12 1815 | | INTERBODY FUSION | , | | | | L3-4 L3-4 | [...] Fentanyl 300 mcg Hydromorphone 2mg To kopacek business intelligence manager | | | 7 | Handoff | [...] | Meds | +------+ + + + | Name | Total | + + + | midazolam | 2 mg | + + + | fentaNYL | 500 mcg | + + + | propofol | 295 mg | + + + | lidocaine 2% | 100 mg | + + + | succinylcholine | 140 mg | + + + | PHENYLephrine | 400 mcg | + + + | ceFAZolin | 4,000 mg | + + + | dexamethasone | 4 mg | + + + | scopolamine (TRANSDERM-SCOPE) 1.5 | 1 patch | | mg 1 patch | | + + + | ePHEDrine | 20 mg | + + + | vasopressin | 2 Units | + + + | HYDROmorphone | 4 mg | + + + | rocuronium | 30 mg | + + + | ondansetron | 4 mg | + + + | LR | 4,600 mL | + + + + + | Name | + + | Insp Osvaldo | + + | Et Osvaldo | + + | Insp Sevo | + + | Et Sevo | + + | O2 Flow Rate (Total Liters) | + + | Air Flow rate (L/min) | + + + + | No [...] 151 | 12/23/12 0000 by | 12/26/12 151 by Saul | | D - | | More Calzada, | Crystal Fernandez RN | | Incisi | | RN | | | on | | | | +--------+ + + + | RETIRE | 12/23/12; 08; 12/26/12; 151; | 12/23/12 08 by | 12/26/121514 by Saul | | D - | [...] Diagnoses Not on filedocumented in this encounter Administered Medications + +--------+ + +------+------+ | Medication Order | MAR | Action | Dose | Rate | Site | | | Action | Date | | | | + +--------+ + +------+------+ | ceFAZolin (ANCEF) injection | Given | 12/24/19 | 2,000 mg | | | | intravenous, INTRAPROCEDURE PRN, | | 13 3:50 | | | | | Starting Sat12/23/12 at 1126, | | PM PDT | | | | | Until Sat12/23/12 at 1807 | | | | | | + +--------+ + +------+------+ +-------+ + +---+---+ | Given | 12/24/19 | 2,000 mg | | | | | 13 11:26 | | | | | | AM PDT | | | | +-------+ + +---+---+ +---+---+ | | | +---+---+ + +-------+ +------+---+---+ | dexamethasone (DECADRON) | Given | 12/24/19 | 4 mg | | | | injection intravenous, | | 13 11:26 | | | | | INTRAPROCEDURE PRN, Starting Tue | | AM PDT | | | | | 12/23/12 at 1126, Until Tue | | | | | | | 12/23/12 at 1807 | | | | | | + +-------+ +------+---+---+ +---+---+ | | | +---+---+ + +-------+ +-------+---+---+ | ePHEDrine injection | Given | 12/24/19 | 10 mg | | | | intravenous, INTRAPROCEDURE PRN, | | 13 12:04 | | | | | Starting 12/23/12 at 1158, | | PM PDT | | | | | Until 12/23/12 at 1807 | | | | | | + +-------+ +-------+---+---+ +-------+ +-------+---+---+ | Given | 12/24/19 | 10 mg | | | | | 13 11:58 | | | | | | AM PDT | | | | +-------+ +-------+---+---+ +---+---+ | | | +---+---+ + +-------+ +--------+---+---+ | fentaNYL citrate (PF) | Given | 12/24/19 | 50 mcg | | | | (SUBLIMAZE) injection | | 13 6:07 | | | | | INTRAPROCEDURE PRN, Starting Tue | | PM PDT | | | | | 12/23/12 at 1038, Until Tue | | | | | | | 12/23/12 at 1807, sedation | | | | | | + +-------+ +--------+---+---+ +-------+ +--------+---+---+ | Given | 12/24/19 | 50 mcg | | | | | 13 1:40 | | | | | | PM PDT | | | | +-------+ +--------+---+---+ | Given | 12/24/19 | 50 mcg | | | | | 13 1:22 | | | | | | PM PDT | | | | +-------+ +--------+---+---+ +---+---+ | | | +---+---+ + +-------+ +--------+---+---+ | HYDROmorphone (DILAUDID) | Given | 12/24/19 | 0.4 mg | | | | injection INTRAPROCEDURE PRN, | | 13 6:17 | | | | | Starting Sat12/23/12 at 1259, | | PM PDT | | | | | Until Sat12/23/12 at 1807, | | | | | | | sedation | | | | | | + +-------+ +--------+---+---+ +-------+ +--------+---+---+ | Given | 12/24/19 | 0.6 mg | | | | | 13 6:15 | | | | | | PM PDT | | | | +-------+ +--------+---+---+ | Given | 12/24/19 | 1 mg | | | | | 13 6:13 | | | | | | PM PDT | | | | +-------+ +--------+---+---+ +---+---+ | | | +---+---+ + + + +---+---+---+ | lactated ringers IV | given by | 12/24/19 | | | | | INTRAPROCEDURE CONTINUOUS PRN, | | 13 6:17 | | | | | Starting 12/23/12 at 1032, | anesthes | PM PDT | | | | | Until 12/23/12 at 1807 | iology | | | | | + + + +---+---+---+ + + +---+---+---+ | New Bag | 12/24/19 | | | | | | 13 5:28 | | | | | | PM PDT | | | | + + +---+---+---+ | given by anesthesiology | 12/24/19 | | | | | | 13 4:50 | | | | | | PM PDT | | | | + + +---+---+---+ +---+---+ | | | +---+---+ + +-------+ +--------+---+---+ | lidocaine PF (XYLOCAINE MPF) 20 | Given | 12/24/19 | 100 mg | | | | mg/mL (2 %) injection | | 13 10:42 | | | | | INTRAPROCEDURE PRN, Starting Tue | | AM PDT | | | | | 12/23/12 at 1042, Until Tue | | | | | | | 12/23/12 at 1807 | | | | | | + +-------+ +--------+---+---+ +---+---+ | | | +---+---+ + +-------+ +------+---+---+ | midazolam (VERSED) injection | Given | 12/24/19 | 2 mg | | | | INTRAPROCEDURE PRN, Starting Tue | | 13 10:27 | | | | | 12/23/12 at 1027, Until Tue | | AM PDT | | | | | 12/23/12 at 1807, sedation | | | | | | + +-------+ +------+---+---+ +---+---+ | | | +---+---+ + +-------+ +------+---+---+ | ondansetron (ZOFRAN) injection | Given | 12/24/19 | 4 mg | | | | INTRAPROCEDURE PRN, Starting Tue | | 13 6:17 | | | | | 12/23/12 at 1817, Until Wed | | PM PDT | | | | | 12/24/12 at 0100 | | | | | | + +-------+ +------+---+---+ +---+---+ | | | +---+---+ + +-------+ +---------+---+---+ | phenylePHrine 100 mcg/mL | Given | 12/24/19 | 100 mcg | | | | injection (OR syringe) | | 13 12:22 | | | | | intravenous, INTRAPROCEDURE PRN, | | PM PDT | | | | | Starting 12/23/12 at 1113, | | | | | | | Until 12/23/12 at 1807 | | | | | | + +-------+ +---------+---+---+ +-------+ +---------+---+---+ | Given | 12/24/19 | 100 mcg | | | | | 13 11:54 | | | | | | AM PDT | | | | +-------+ +---------+---+---+ | Given | 12/24/19 | 100 mcg | | | | | 13 11:50 | | | | | | AM PDT | | | | +-------+ +---------+---+---+ +---+---+ | | | +---+---+ + +-------+ +-------+---+---+ | propofol INTRAPROCEDURE PRN, | Given | 12/24/19 | 20 mg | | | | Starting 12/23/12 at 1042, | | 13 5:52 | | | | | Until 12/23/12 at 1807 | | PM PDT | | | | + +-------+ +-------+---+---+ +-------+ +-------+---+---+ | Given | 12/24/19 | 15 mg | | | | | 13 5:50 | | | | | | PM PDT | | | | +-------+ +-------+---+---+ | Given | 12/24/19 | 20 mg | | | | | 13 1:41 | | | | | | PM PDT | | | | +-------+ +-------+---+---+ +---+---+ | | | +---+---+ + +-------+ +-------+---+---+ | rocuronium (ZEMURON) injection | Given | 12/24/19 | 30 mg | | | | INTRAPROCEDURE PRN, Starting Sat | | 2:41 | | | | | 12/23/12 at 1441, Until e | | PM PDT | | | | | 12/23/12 at 1807, Neuromuscular | | | | | | | block | | | | | | + +-------+ +-------+---+---+ +---+---+ | | | +---+---+ + + [...] | | +---+---+ + +-------+ +--------+---+---+ | SUCCINYLCHOLINE CHLORIDE 20 | Given | 12/24/19 | 140 mg | | | | MG/ML INJ (PROSED/RSI) | | 13 10:44 | | | | | INTRAPROCEDURE PRN, Starting Tue | | AM PDT | | | | | 12/23/12 at 1044, Until Tue | | | | | | | 12/23/12 at 1807, Neuromuscular | | | | | | | block | | | | | | + +-------+ +--------+---+---+ +---+---+ | | | +---+---+ + +-------+ +---------+---+---+ | vasopressin (PITRESSIN) | Given | 12/24/19 | 1 Units | | | | injection INTRAPROCEDURE PRN, | | 13 12:17 | | | | | Starting 12/23/12 at 1210, | | PM PDT | | | | | Until 12/23/12 at 1807 | | | | | | + +-------+ +---------+---+---+ +-------+ +---------+---+---+ | Given | 12/24/19 | 1 Units | | | | | 13 12:10 | | | | | | PM PDT | | | | +-------+ +---------+---+---+ +---+---+ | | | +---+---+ documented in this encounter"
--- OUTSIDE RECORDS SUMMARY | ~2019-10-16 | XMS | Encounter Summary ---
Demographics + + + | Address | [address] | | | [place] [address] | + + + | Home Phone [...] [address] | | | | | [address] | | + + + + + | Bebe Terrazas | ECON | Unknown | Unavailable | + + + + + | Arden Terrazas | ECON | Unknown | | + + + + + Care Team Providers + +------+ + | Care Technology Solutions Architect Name | Role | Phone | [...] Visit | Medicine Clinic at | T, CHANNEL CEMENTER-C,MPH | lumbosacral neuritis | | | | MPV Day | | or radiculitis, | | | | Stay [address] | | unspecified (Primary | | | | [address] | | Dx); Preop | | | | Mailcode: [id number] | | examination; Spinal | | | | [facility] | | stenosis, lumbar | | | | [address] [place], [place] | | region, without | | | | [address] | | neurogenic | | | | [phone] | | claudication; | | | | [...] Fentanyl 300 mcg Hydromorphone 2mg To kopacek machinist wood | | | 7 | Handoff | [...] or walk. Surgery Check in Locations Admitting [facility], ninth floor [facility] Surgery Check in Time: The Preoperative [...] it is after office hours, call the [facility] bending press operator at [phone] and ask them to page him or h er. Preparing For Your Surgery Video -- 7 minutes of instructions! Access the [facility] website [email or web address] --> POPULAR RESOURCES --> Patient Guide --> [...] Body mass index is 36. 66 kg/(m^2). [facility] ROS Last edited 12/22/122040 by JUANCHO Palencia,MPH [...] was repeated and fine. She saw a rug washer reportedly and was found to be fine ([facility], [place], [place]). She says that she checked out [...] further investigation and manageme nt. A. Acute KS within 7 days: no B. Unstable angina/Recent KS (7- 30 days): no C. Decompensated CHF: [...] no Rate of cardiac , non fatal KS, non fatal cardiac arrest (RCRI) 0 risk factors - 0.4% 1 risk factors - 1%, 2 risk factors - 7%, Risk Factor Recommendations: Up to 1-2 risk factors- proceed with planned surgery with HR c ontrol or consider noninvasive testing if it will pattern changer Surgery Risk: Unavailable Patient-related risk: Estimated ASA [...] was repeated and fine. She saw a rug washer reportedly and was found to be fine ([facility], [place], [place]). She says that she checked out [...] of symptoms and hx of tachycardia in [facility] with back surgery. Dr. Small noted that [...] contribute to this patient's care. JUANCHO BAER,MPH [facility] [address] [phone] Felecia Burgess MA - 12/22/2012 4:49 PM [...] | + +--------+ + + + | ND COLLECTION VENOUS | Routin | 12/22/2012 | [...] ALFONSO | | | | | | ([id number]) on 12/24/2012 | | | | | | 9:46:22 PM | | | | + + + + + + + + | Specimen | + + | | + + + + + | Narrative | Performed At | + + + | Please click | [facility] | | on view image for the detailed interpretation from [employer] results. | CARDIOLOGY | + + + + + | Procedure Note | + + | Interface, Cardiology Results - 12/24/2012 9:50 PM PDT Please click on view image | | for the detailed interpretation from [employer] results. | + + + + + + + | Performing | Address | City/State/Zipcode | Phone Number | | Organization | | | | + + + + + | [facility] | [address] | [place], [place] | | | CARDIOLOGY | [address] | [address] | | + + + + + [...] | + + + + + | [facility] | [address] | [place] [address] | | | SERVICES, CORE | EDITH [...] | | If you are | | [place] | | | | screening for diabetes: [...] + | [facility] - | [address] | [place] [address] | | | [place] | | | [...] [facility] | [address] | [place] [address] | | | SERVICES, CORE | EDITH [...] + + + + | [facility] | [address] | [place] [address] | | | [place] | [...] | | | LABORATORY | | | [place] | | | SERVICES, | | | [...] the MDRD equation recommended by the | [facility] | | National Kidney Disease Education Program. Estimated GFR | LABORATORY | | Interpretive Information: <60 mL/min/1.73 sq m | SERVICES, [facility] | | Chronic Kidney Disease <15 mL/min/1.73 [...] + + + + | [facility] | [address] | [place] [address] | | | SERVICES, [facility] | [address] | | | + [...]
--- OUTSIDE RECORDS SUMMARY | ~2019-10-16 | XMS | Encounter Summary ---
Demographics + + + | Address | [address] | | | [place] [address] | + + + | Home Phone [...] [address] | | | | | [address] | | + + + + + | Bebe Terrazas | ECON | Unknown | Unavailable | + + + + + | Arden Terrazas | ECON | Unknown | | + + + + + Care Team Providers + +------+ + | Care Security Site Supervisor Name | Role | Phone | [...] | | | | | Procedures | [place], [place] | [place], [place] | | | | | CONSULT TO | [address] | [address] | | | | | PAIN CENTER | Phone: | | | | | | | [phone] | | | | | | | Fax: | | | | | | | [phone] | | +--------+--------+ + + + + Encounter Details +--------+---------+ + + + | Date | Type | Department | Care Team | Description | +--------+---------+ + + + | 02/19/ | Office | [facility] Comprehensive | Barbara Carlin, | Lumbar | | 2012 | Visit | Pain Center at | ANP | post-laminectomy | | | | [facility] | | syndrome (Primary | | | | [address] | | Dx); Overweight | | | | [facility] | | | | | | and Healing, | | | | | | Building | | | | | | Floor [place], [place] | | | | | | [address] | | | | | | [phone] | | | +--------+---------+ + + + [...] Nutrition: I recommend you meet with a assistant portfolio manager for dietary advice for weight loss. Getting [...] you have questions or concerns. LEANNE DIAS [facility] [address] [place] [address] Mail Code: [address] [address] documented in this encounter Progress [...] for pain management consultation by [facility] [place] [address] [place] [id number] Chief Complaint Patient presents with New patient consultation LBP - Low back pain Overweight Post Surgical Pain History of Present Illness: Nancy Terrazas is a 42 year old female with pain located in lower back, hips, legs and toe numbness. She has been diagnosed with lumbar radiculopath y. She is referred to [facility] for consultation regarding this [...] lis hiren below by Dr. Sivakumar Tanner [facility]: Postoperative Diagnoses: 1. Adjacent level degenerative disk disease at L3-4. 2. L4 radiculopathy. 3. Spondylosis. 4. Herniated nucleus pulposus at L3-4. Procedures Performed: 1. Direct lateral interbody fusion using Bard of L3-4 on the left lateral approach. [...] treatment plan. [facility] and was to return to [...] and heat applications help control the pain assisted living care manager made her back pain worse Orthotics did not change her back pain TENS unit: no change Relaxation does not change her pain level DENTAL RECEPTIONIST Brief Pain Inventory: (ten= worst possible pain [...] weighted sequences were performed as per the [facility] protocol. Series were obtained both pre-and [...] facet arthropathy. There is mild left and fcmj-bs-[id number] right foraminal narrowing. At L4-5, there is [...] AM As part of today's visit the [facility] new patient questionnaire was [...] you expect from your visits to the [facility] ? Don't know and [...] during Madalyn's post-surgical period. We discussed the [facility] post-spine surgery recovery period of 8-12 weeks [...] will check with Lety BEASLEY in Dr. Tanenr's office to see if Madalyn can st art physical therapy. I would like Madalyn to start a walking program of 15 minutes a day at a s low pace. If she is cleared to start PT now, they can begin a stretching and strengthening p rogram for her low back and legs. 3. Nutrition: I recommend you meet with a assistant portfolio manager for dietary advice for weight loss and [...] improve peripheral nerve pain. It is an ceqf-nsf-vkci ter supplement. 4. Mental health counseling: Madalyn [...] six weeks. Call or check in by [employer] if you have any ques tions. I [...] you have questions or concerns. LEANNE DIAS [facility] [address] [facility] [place] Mail Code: [place] [address] documented in this en counter Plan of Treatment Not on filedocumented as of this encounter Visit Diagnoses + + | Diagnosis | + + | Lumbar post-laminectomy syndrome - Primary Postlaminectomy syndrome, lumbar region | + + | Overweight(278.02) Overweight | + + documented in this encounter
--- OUTSIDE RECORDS SUMMARY | ~2019-10-16 | XMS | Encounter Summary ---
Demographics + + + | Address | [address] | | | [place] [address] | + + + | Home Phone [...] ST | Unavailable | | | | [address], [place] | | | | | [address] | | + + + + + | Bebe Terrazas | ECON | Unknown | Unavailable | + + + + + | Arden Hammondi | ECON | Unknown | | + + + + + Care Team Providers + +------+ + | Care Well Logger Name | Role | Phone | + [...]
--- OUTSIDE RECORDS SUMMARY | ~2019-10-16 | XMS | Encounter Summary ---
Demographics + + + | Address | [address] | | | [place] [address] | + + + | Home Phone [...] [address] | | | | | [address] | | + + + + + | Bebe Terrazas | ECON | Unknown | Unavailable | + + + + + | Arden Terrazas | ECON | Unknown | | + + + + + Care Team Providers + +------+ + | Care Screen Printing Machine Operator Name | Role | Phone [...] | | | | VASC LAB | [place], [place] | Mailcode: | | | | | VENOUS | [address] | [id number] | | | | | [address] | Phone: | Physician's | | | | | EXTREMITY | [phone] | Pavilion | | | | | BILAT COMP | Fax: | [place], [place] | | | | | | [phone] | [address] | | | | | | | Phone: | | | | | | | [phone] | | | | | | | Fax: | | | | | | | [phone] | +--------+--------+ + + + + Reason [...] | | | Pavilion, 2nd floor | [place], [place] | | | | | [place], [place] | [address] | | | | | [address] | [phone] | | | | | [phone] | | | +--------+---------+ + + + [...] for DVT. Patient informed. [facility] [address] [place] [address] Mailcode: [id number] [place] [address] documented in t his encounter [...]
--- OUTSIDE RECORDS SUMMARY | ~2019-10-16 | XMS | Encounter Summary ---
Demographics + + + | Address | [address] [facility] [address] | | | [place] [address] | + + + | Home Phone | | + + + | Preferred Language | Unknown | + + + | Marital Status | | + + + | Evangelical Affiliation | 1013 | + + + | Race | Unknown | + + + | Ethnic Group | Unknown | + + + Author + + + | Author | [facility] | | | and Juan Joséana | + + + | Organization | [facility] | | | and [place] | + + + | Address | Unknown | + + + | Phone | Unavailable | + + + Support + + + + + | Name | Relationship | Address | Phone | + + + + + | Dustin Terrazas | ECON | [place] | | | | | [address] | | + + + + + | Bebe Terrazas | ECON | [address] | | | | | [place], [place] | | | | | [address] | | + + + + + Care Team Providers + +------+ + | Care Professor Of Violin Name | Role | Phone | + [...] Description | +--------+---------+ + + + | 02/13/ | Surgery | [facility] | Allan Amato MD | CV Cor Ang[facility] | | 2017 | | MED CTR CV INTRA OP | [address] | | | | | [address] | [place], [place] | | | | | [place], [place] | [address] | | | | | [address] | | | | | | [phone] | | | +--------+---------+ + + + [...] + + + | Blood Pressure | 116/88 | 02/13/2017 5:45 AM | | | | | PST | | + + + + + | Pulse | 107 | 02/13/2017 5:45 AM | | | | | PST | | + + + + + | Temperature | - | - | | + + + + + | Respiratory Rate | 29 | 02/13/2017 5:45 AM | | | | | PST | | + + + + + | Oxygen Saturation | 98% | 02/13/2017 5:30 AM | | | | | PST | | + + + + + | Inhaled Oxygen | - | - | | | Concentration | | | | + + + + + | Weight | 95.3 kg (210 lb) | 02/13/2017 5:11 AM | | | | | PST [...] Physician Discharge Summary Patient Id: Nancy Terrazas [id number] 46 y.o. 1970 Admit date: 02/13/2017 Discharge [...] findings were suggestive of an ST elevation SD. Her initial troponin was 3.60. She was referred to Cardiology service for a n emergent left heart cath. She was found to have a thrombus of the proximal LAD stent resul juan alberto in 99% occlusion. Dr. Amato used a [...] days of discharge and with her primary line lead in 2 weeks at [facility]. Consults: Cardiology Significant Diagnostic Studies: labs: see reports, radiology: CXR: pulmonary edema and card iac graphics: ECG: Normal sinus rhythm Low voltage QRS Possible Anterolateral infarct , age undetermined :consider acute/subacute/evolving SD Abnormal ECG No previous ECGs available Confirmed by BREANNA VILLAGOMEZ MD ([id number]) on 02/13/2017 7:10:33 AM Echocardiogram: Summary: 1. [...] Take 1 tablet by mouth Daily. aka: PRINIVIL,ZESTRIL Start: 02/16/2017 nitroglycerin 0.4 mg SL tablet [...] heartbeat or fast pulse. Date Last Reviewed: 12/03/201519997047-26[address] [facility] [place] [address], [place] [id number]. All righ ts reserved. This information is [...] than one risk factor. Date Last Reviewed: 05/30/201519999106-4838 [employer]. [address] [place] [address], [place] [address]. All righ ts reserved. This information is [...] easily through the arteries. Date Last Reviewed: 06/09/201519995644-7309 [employer]. [address] [place] [address], [place] [address]. All righ ts reserved. This information is [...] and need help quitting, talk to your [facility] team. Testing your blood sugar is the [...] cut down on salt. A dietitian or medical educator can help form a meal plan that works for you even if you are on a low budget. Being activecan help reduce your weight, strengthen your heart, and lower your lipid l evels and blood pressure. Exercise and activity are good for your whole body. Talk to your [facility] team about increasing your activity safely over time. Keeping your appointmentswith your healthcare provider helps you stay healthy. Go in f or checkups and lab tests as scheduled. Date Last Reviewed: 07/21/201519997881-4698 [employer]. [address] [place] [address]. All righ ts reserved. This information is [...] returned to your target range, contact your [facility] are provider or seek emergency care. Once [...] and what you eat, learn how to martin e the time and dose of your [...] your healthcare moise solorzano. Date Last Reviewed: 07/03/201519997960-9336 [employer]. [address] [place] [address]. All righ ts reserved. This information is not intended as a substitute for professional medical care. Always follow your healthcare professional's instructions. AttachmentsThe following attachments cannot be sent through Care Everywhere.Clopidogrel Bis ulfate Oral tablet (Qatari)Smoking,Tips for Quitting (Cardiovascular) (Qatari)Your Heart Risk Action Plan (Qatari)documented in this encounter Medications at Time of [...] as of this encounter Progress Notes Monica Reno PharmD - 02/15/2017 2:05 PM PSTNancy Terrazas was admitted for STEMI and discharged home today (02/15/2017) Taught AVS education to patient and family. Education was focused on new medications and/or changed medications. I explained indication, how to take, possible side effects, when to co ntact physician, and monitor parameters. The patient was encouraged to make a follow-up appointment with line lead. The patient verbalized understanding of the above and all questions were answered. Pharmaci will follow-up with patient in one to two business days. Patient was provided with a sultana nciled discharge medication list as part of their AVS instructions. Encouraged patient to sh are medication list with healthcare providers and keep list current. Monica Reno PharmD 02/15/2017 14:05 Yadira Jonas si, MD - 02/14/2017 2:25 PM PST . [facility] HOSPITALIST PROGRESS NOTE Patient: Nancy Terrazas : 1970: Age: 46 y.o. MedRec: [id number] PCP: Ki Senior NP Admission date: 02/13/2017 [...] HS Continuous Infusions: nitroglycerin in dextrose Stopped (02/13/172204) PRN Meds: Hypoglycemia Management AND POCT Glucose AND dextrose, HYDROmorphone, morphine, nit roglycerin, ondansetron, oxyCODONE VITALS: Temp: 36.6 C (97.9 F), Pulse: 87, Resp: 16, BP: 138/84, SpO2 96 % on room air at flow r ate 2L/min Temp Min: 35.9 C (96.6 F) Max: 36.8 C (98.2 F) Weight: 95.3 kg (210 lb) I/O last 3 completed shifts: In: 4292 [P.O.:2040; I.V.:2252] Out: 450 [Urine:450] I/O this shift: [...] has resolved Confirmed by BREANNA VILLAGOMEZ MD ([id number]) on 02/14/2017 6:39:08 AM ECHO Complete Result [...] on is anticipated Maico Rodriguez 02/14/2017 14:26 [facility] Allan Gipson MD - 02/14/2017 10:06 [...] IV INFUSIONS: heparin infusion 1,200 Units/hr (02/14/17 0415) nitroglycerin in dextrose Stopped (02/13/17 1296) OBJECTIVE: PHYSICAL EXAM Latest VS: BP 114/80 [...] has resolved Confirmed by DAHLIA ADLER, BREANNA ([id number]) on 02/14/2017 6:39:08 AM ECHO Complete Collection [...] go home tomorrow with f/u with her line lead at [facility] in 1-2 wks and on Plavix 7 5/d and ASA 81/d. Portions of this report were transcribed using voice recognition software. Every effort wa s made to ensure accuracy; however, inadvertent computerized is/it project manager errors may be pre sent. Electronically signed [...] strength, and directions X Pharmacy list names: [facility] [place] [facility] [place] INSURANCE SOLICITOR (Prescription Monitoring Program) X [employer] insurance reported [...] performed and electronically signed by Jessy Goetz, Pump Station Operator 02/13 19:16 Josette Silverman 02/13/2017 19:24 documented in this encounter H&P Notes Maico Rodriguez MD - 02/13/2017 12:46 PM PST [facility] HISTORY AND PHYSICAL Pt. Name/Age/: Nancy Terrazas 46 y.o. 1970 Date of admission: 02/13/2017 Admitting Physician: Maico Rodrgiuez MD Primary Care Provider: Ki Senior NP [...] consistent with an acute ST elevat ion SD. She was immediately referred to Cardiology service [...] in the LAD. She had her first SD in June 2013 and a sten t was placed in the LAD. The second PCI was in 06/2015 per the patient, but she may have jose nt 2017 as I see that she had a cath done in [facility] in July 2016. The LAD stent [...] Continuous Infusions: heparin infusion 700 Units/hr (02/13/17 0936) nitroglycerin in dextrose 5 mcg/min (02/13/17 0760) PRN Meds: Hypoglycemia Management AND POCT Glucose [...] Anterolateral infarct , age undetermined :consider acute/subacute/evolving SD Abnormal ECG No previous ECGs available Confirmed by BREANNA VILLAGOMEZ MD ([id number]) on 02/13/2017 7:10:33 AM CBC with Differential [...] infarct (cited on or before 13-FEB-2017) ACUTE SD / STEMI Abnormal ECG When compared with ECG of 13-FEB-2017 05:12, (Unconfirmed) Significant changes have occurred Confirmed by DAHLIA ADLER, BREANNA ([id number]) on 02/13/2017 7:11:33 AM Extra Blue Top [...] her usual BP medications and follow the christiane barrett 4. Leucocytosis: Her elevated WBC is likely due to stress rather than infection. Follow wbc trend over the next couple of days 5. Pulmonary edema: probably related to the acute SD and was possibly a anginal equivalent (flash pulmonary edema). I will repeat a CXR tomorrow and continue to follow her clinically . She may require gentle diuresis. I will order an Echo to evaluate her LVSF. Further recommendations regarding Ms. Terrazas would depend on her response to the current int erventions, on the results of further testing and/or imaging, and on recommendations from [facility] cardiology service. DVT Prophylaxis heparin and SCD's while in bed Code Status Full Code. CMS Documentation I expect this patient will be hospitalized for greater than 2-midnights and expect the post -hospital plan to be discharge to home or to an adult foster home. Total of 45 minutes were required to complete the admission process. Reviewed and summariz ed past medical records. Medical Decisionmaker: Patient Electronically signed by: Maico Rodriguez MD 02/13/2017 12:46 [facility] Portions of this chart may have been created with [employer] voice recognition software. Occasi onal wrong-word or [...] 02/13/2017 PRIMARY CARE PROVIDER: Ki Senior NP QUALITY ASSURANCE CALIBRATOR: Allan Amato MD. PRE-PROCEDURE DIAGNOSIS: Possible Anterior [...] site was anesthetized with 1% lidocaine. A 6-Peruvian sheath was inserted into the radial artery. [...] Continue other cardiac meds. F/u with primary line lead in 2 wks at [facility]. Allan Amato MD [facility] DATE/TIME: 02/13/2017 7:55 02/13/2017 7:55 documented in [...] outpatient visit after discharge. She lives in [place] and says jamel t transportation is an [...] OF CONSULTATION: 02/13/2017 (Hospital Day: 1) CONSULTING SCOOTER MECHANIC: Sachin Amato MD HISTORY OF PRESENT ILLNESS: 46 y.o. female presented to a local hospital with about an hour of SSCP with radiation to t he R arm and equivocal EKG changes and [facility] and scr eaming at everyone. She has had 2 cor stents before and last saw her line lead in 07/2016 in [facility]. She denies exertional angina, syncope, chf and has quite a few risks for CAD incl uding smoking. Current EKG shows some anterior ST elevation which may be chronic c/w previou s anterior SD. Trop is 0.05 ASSESSMENT/PLAN: The pertinent data [...] MEDICATIONS: IV: heparin infusion 1,000 Units/hr (02/13/17 4290) nitroglycerin in dextrose 5 mcg/min (02/13/17 0910) PRN: [MAY Hold] heparin, [MAY Hold] HYDROmorphone, [MAY Hold] morphine, [MAY Hold] ondansetron Allergies: Allergies Allergen Reactions Codeine [...] ago . Patient was transported here by [facility]. She is from [place]. They transpor hiren her here because her initial ECG was concerning for possible anteroseptal ST elevation. Patient received 324 mg of aspirin, 2 doses of sublingual nitroglycerin and a total of 200 g of fentanyl and is continuing to writhe in pain while hyperventilating and moaning. She r eports a previous history of SD, diabetes, and smoking. PAST MEDICAL HISTORY History [...] Bilateral external ears normal, Oral mucosa moist, mimeographer ior pharynx no exudates, Nose normal. Neck-supple, [...] no acute findings EKG Interpretation Interpreted by ok Rhythm: normal sinus Rate: normal [place]: normal Ectopy: none Conduction: normal ST Segments: no acute change T Waves: no acute change Q Waves: V1 through V5 Clinical Impression: Normal sinus, Q waves in V1 through V5 EKG Interpretation Interpreted by ok Rhythm: Sinus tachycardia Rate:1104 [place]: normal Ectopy: PVCs Conduction: normal ST Segments: Anterior ST segment elevations T Waves: no acute change Q Waves: V1 through V5 Clinical Impression: Acute ST elevation SD ED COURSE & MEDICAL DECISION MAKING Pertinent [...] ECG did not show evidence of acute SD. Repeat ECG 15 minutes later did s how evidence of acute SD. At that time I activated the laborer hoisting and interventional cardiolog ist came to take the patient to the Physician Scribe. She was started on nitroglycerin and heparin i nfusions. Last Set of Vital Signs: Pulse: 107 Resp: 29 SpO2: 98 % BP: 116/[address] elevation myocardial infarction (STEMI), unspecified artery (HCC) PLAN to laborer hoisting for PCI There are no discharge medications [...] Met: 02/15/17 See inpatient consult completed today. eITim Restrepo RN - 02/15/2017 12:00 AM PSTVenous device lab draw for troponin level.Electronical ly signed by Radha Garcia RN at 02/15/2017 12:41 AM PSTPlan [...] steady gait. Will continue to monitor . eIVaughn Restrepo RN - 02/13/2017 3:34 PM PSTPt complains [...] plan. She reports that she lives in [place] with her spouse and 2 college age young adults who help a lot at home. She was transported directly here from her home since she was having an SD and [facility]'s had no cardiology. Patient states that she has been on disability Medicare due to her back injuries and severa l back surgeries. Otherwise, she is totally independent and uses her cane only prn for her mobility. She confirmed her PCP is Ki Senior NP, and her pharmacy is [facility], both in [facility]. Her spouse will be her transport back home when discharged. Patient confirmed she does not use any home 02 or home CPAP and still drives. No needs identified. Dispo plan: Return home to [place] with spouse transporting when discharged with no needs. Electronically signed by: Linda Heard RN 02/13/2017 13:12 lan of Yi - Won Mcneil Chaplain - 02/13/2017 11:49 AM PSTProblem: Patient Care Overview (Adult) Goal: Care Team Goals & Evaluation PROBLEM-RELATED GOALS: STRATEGY TO ACHIEVE GOALS: RESTRAINT-RELATED GOALS: STRATEGIES TO ACHIEVE RESTRAINT GOALS: Spiritual Care Nancy Terrazas is a 46 y.o. female who is admitted for ST elevation myocardial infarct ion (STEMI), unspecified artery (HCC) [I21.3]. Die Trouble Shooter visit was part of routine rounding. Spiritual [...] She initially seemed neutral about having a watch electrician visit, but quickly w armed to the situation, and was smiling and grateful for the time I spent with her. She tess eves in God, was baptized as a child, still maintains a personal spirituality, but is not af filiated with any particular moravian or crista group. Spiritual Interventions: I offered supportive listening, ministry of presence, and words of encouragement. Spiritual Outcomes: Nancy expressed appreciation for the visit, but declined an offer for spiritual care. Spiritual Goals/Follow-up: Follow up with regular visits, emotional and spiritual support. eICU Prerna - Radha Pearl RN - 02/13/2017 11:00 AM PSTBlood drawn by RN eIYARELIS Graff - Radha Garcia RN - 017 8:00 AM PSTBlood lab draw by RNElectronically signed by Radha Garcia RN at 02/13 5:07 PM PSTdocumented [...] + +--------+ + + + | EXTRA ALLENENDER TOP | Routin | 02/14/2017 | | [...] | | | | | | [employer] | | | | | [...] [address] | [place] | [phone] | | [facility] | | [address] | | | - LABORATORY | | [...] [address] | [place] | [phone] | | [facility] | | [address] | | | - LABORATORY | | [...] | | Lavender | | | [facility] | | [...] [address] | [place] | [phone] | | [facility] | | [address] | | | - LABORATORY | | [...] LDL | 35 - 160 mg/dL | [facility] | | | es | unable to calculate due | | [facility] | | | | to high triglyceride | | MEDICAL | | | | value | | CENTER - | | | | | | LABORATORY | | + + + + + + | Cholesterol | 212 (H) | 150 - 200 mg/dL | [facility] | | | | | | [facility] | | | | | | MEDICAL | | | | | | CENTER - | | | | | | LABORATORY | | + + + + + + | HDL | 38Comment: New HDL | 28 - 83 mg/dL | [facility] | | | | Reference Range as [...] | | | Ratio | | | [facility] | | [...] + | [facility] | [address] | [place] | [phone] | | [facility] | | [address] | | | - LABORATORY | | | | + + + + + Troponin I (02/14/2017 11:51 PM PST) + + + + + + | Component | Value | Ref Range | Performed | Pathologist | | | | | At | Signature | + + + + + + | Troponin I | 4.86 ()Comment: | <0.06 ng/mL | [facility] | | | | Consistent with previous | | [facility] | | | | results. Reference [...] | | | | | | [employer] | | | | | [...] | + + + + + | [facility] | [address] | [place] | [phone] | | [facility] | | [address] | | | - LABORATORY | | [...] [address] | [place] | [phone] | | [facility] | | [address] | | | - LABORATORY | | [...] [address] | [place] | [phone] | | [facility] | | [address] | | | - LABORATORY | | [...] | | Cells, | | | [facility] | | | Urine | | | [...] | | Comment | Indicated | | [facility] | | | [...] [address] | [place] | [phone] | | [facility] | | [address] | | | - LABORATORY | | [...] | | | | | results. [employer] | | | | | | [employer] [...] + | [facility] | [address] | [place] | [phone] | | [facility] | | [address] | | | - LABORATORY | | [...] | + + + + + | [facility] | [address] | [place] | [phone] | | [facility] | | [address] | | | - LABORATORY | | [...] | + + + + + | [facility] | [address] | [place] | [phone] | | [facility] | | [address] | | | - LABORATORY | | [...] BRUNAE | | | | | | ST. [...] + | [facility] | [address] | [place], [place] | [phone] | | [facility] | | [address] | | | - LABORATORY | | [...] | | POC | | | [facility] | | | | | | MEDICAL | | | | | | CENTER - | | | | | | LABORATORY | | + +---------+ + + + + + | Specimen | + + | Blood | + + + + + + + | Performing | Address | City/State/[facility] | Phone Number | | Organization | | | | + + + + + | [facility] | [address] | [place] | [phone] | | [facility] | | [address] | | | - LABORATORY | | [...] | | Lavender | | | [facility] | | | Top Tube | | [...] ST. | [address] | [place] | [phone] | | [facility] | | [address] | | | - LABORATORY | | [...] | | | | Reference | | . [facility] | | | | Ranges:0.00-0.06 = [...] | | | | | | [employer] | | | | | [...] + + | Performing | Address | City/State/[facility] | Phone Number | | Organization | | | | + + + + + | [facility] | [address] | [place] | [phone] | | [facility] | | [address] | | | - LABORATORY | | [...] ST. | [address] | [place] | [phone] | | [facility] | | [address] | | | - LABORATORY | | [...] 33 | 22 - 36 seconds | [facility] [...] + | [facility] | [address] | [place] | [phone] | | [facility] | | [address] | | | - LABORATORY | | | | + + + + + B Type Natriuretic Peptide (02/14/2017 3:04 AM PST) + +---------+ + + + | Component | Value | Ref Range | Performed | Pathologist | | | | | At | Signature | + +---------+ + + + | BNP | 174 (H) | <100 pg/mL | [facility] | | | | | [...] + | [facility] | [address] | [place] | [phone] | | [facility] | | [address] | | | - LABORATORY | | | | + + + + + Hemoglobin A1C (02/14/2017 3:04 AM PST) + + + + + + | Component | Value | Ref Range | Performed | Pathologist | | | | | At | Signature | + + + + + + | Hemoglobin | 10.6 (H) | 4.3 - 6.0 % | [facility] | | | A1c | | | [facility] | | | | | | MEDICAL | | | | | | CENTER - | | | | | | LABORATORY | | + + + + + + | Estimated | 258 | mg/dL | [facility] | | | Average | | | [facility] | | | Glucose | | | [...] [address] | [place] | [phone] | | [facility] | | [address] | | | - LABORATORY | | | | + + + + + Phosphorus (02/14/2017 3:04 AM PST) + +-------+ + + + | Component | Value | Ref Range | Performed | Pathologist | | | | | At | Signature | + +-------+ + + + | Phosphorus | 4.0 | 2.5 - 4.6 mg/dL | [facility] | | | | [...] + | [facility] | [address] | [place] | [phone] | | [facility] | | [address] | | | - LABORATORY | | | | + + + + + Magnesium (02/14/2017 3:04 AM PST) + +---------+ + + + | Component | Value | Ref Range | Performed | Pathologist | | | | | At | Signature | + +---------+ + + + | Magnesium | 1.7 (L) | 1.8 - 2.5 mg/dL | [facility] | | | | [...] [address] | [place] | [phone] | | [facility] | | [address] | | | - LABORATORY | | [...] | | | | | mg/dL | [facility] | | | | | | MEDICAL | | | | | | CENTER - | | | | | | LABORATORY | | + + + + + + | eGFR, | >60Comment: GLOMERULAR | >=60 | [facility] | | | non- | FILTRATION | mL/min/1.73m2 | [facility] | | | [place] | RATE,ESTIMATED | | MEDICAL | | | | mL/min/1.93g1Rpth than | | CENTER - | | [...] | 8.7 | 8.3 - 10.5 | [facility] | | | | | mg/dL | [facility] | | | | | | MEDICAL [...] + | [facility] | [address] | [place] | [phone] | | [facility] | | [address] | | | - LABORATORY | | [...] | | | Cells | | | [facility] | | | | | | MEDICAL | | | | | | CENTER - | | | | | | LABORATORY | | + + + + + + | Red Blood | 4.35 | 3.70 - 5.20 | [facility] | | | Cells | | M/uL | . [facility] | | | | | | [...] [facility] | | | | | | . [facility] | | | | | | [...] | | Neutrophils | | K/uL | [facility] | | | | [...] | + + + + + | [facility] | [address] | [place] | [phone] | | [facility] | | [address] | | | - LABORATORY | | | | + + + + + Troponin I (02/14/2017 12:02 AM PST) + + + + + + | Component | Value | Ref Range | Performed | Pathologist | | | | | At | Signature | + + + + + + | Troponin I | 12.56 ()Comment: | <0.06 ng/mL | [facility] | | | | Reference | | [...] | | | | | results. [employer] [place] | | | | | | [employer] [...] + | [facility] | [address] | [place] | [phone] | | [facility] | | [address] | | | - LABORATORY | | [...] | | | | | mg/dL | [facility] | | | | | | MEDICAL | | | | | | CENTER - | | | | | | LABORATORY | | + + + + + + | eGFR, | >60Comment: GLOMERULAR | >=60 | [facility] | | | non- | FILTRATION | mL/min/1.73m2 | [facility] | | | [place] | RATE,ESTIMATED | | MEDICAL | | | | mL/min/1.39p2Huty than | | CENTER - | | [...] | | | | | mg/dL | [facility] | | | | | | MEDICAL [...] [address] | [place] | [phone] | | [facility] | | [address] | | | - LABORATORY | | [...] | | | | g/dL | [facility] | | | | | | MEDICAL [...] | | Neutrophils | | K/uL | [facility] | | | | | | MEDICAL | | | | | | CENTER - | | | | | | LABORATORY | | + + + + + + | Absolute | 3.90 (H) | 0.60 - 3.20 | [facility] | | | Lymphocytes | | K/uL | [facility] | | | | | | MEDICAL | | | | | | CENTER - | | | | | | LABORATORY | | + + + + + + | Absolute | 0.90 | 0.00 - 1.00 | [facility] | | | Monocytes | | K/uL | [facility] | | | | [...] + | [facility] | [address] | [place] | [phone] | | [facility] | | [address] | | | - LABORATORY | | [...] [address] | [place] | [phone] | | [facility] | | [address] | | | - LABORATORY | | | | + + + + + PTT (02/13/2017 8:45 PM PST) + +-------+ + + + | Component | Value | Ref Range | Performed | Pathologist | | | | | At | Signature | + +-------+ + + + | aPTT | 28 | 22 - 36 seconds | [facility] | | | | | | ST. [...] [address] | [place] | [phone] | | [facility] | | [address] | | | - LABORATORY | | | | + + + + + PTT (02/13/2017 7:08 PM PST) + +-------+ + + + | Component | Value | Ref Range | Performed | Pathologist | | | | | At | Signature | + +-------+ + + + | aPTT | 30 | 22 - 36 seconds | [facility] [...] [address] | [place] | [phone] | | [facility] | | [address] | | | - LABORATORY | | [...] | + + + + + | [facility] | [address] | [place] | [phone] | | [facility] | | [address] | | | - LABORATORY | | [...] | | Critical Result called | | [facility] | | | | to and [...] | | | | | | [employer] | | | | | [...] ST. | [address] | [place], [place] | [phone] | | [facility] | | [address] | | | - LABORATORY | | [...] 456 | | | EUFEMIA Patient Number [id number] Date of Study | | | 02/13/2017 Visit Number [id number] | | | Referring Physician ALLAN AMATO MD Number Date of | | | 1970 Theatrical Agent SAMANTHA | | | NICKTONIORAMÓN, | | | [place] Age 46 year(s) | | | Interpreting ALLAN AMATO MD | | | [employer] Windows Engineer MONIKA | | | AMINATA, | | | Gender Female | | | Nurse Stress | | | Line Fisher Procedure Type of Study TTE procedure: ECHO [...] Volume: 31.68 ml | | | EF Fhucbbfxv49% Left Ventricle | | | Diastolic Dimension: [...] Volume: 31.68 ml | | | EF Qhpogfygn56% | | | | | | Left [...] | Meir, Rad Results In - 02/14/2017 6:32 AM [facility] Transthoracic Echocardiography Report | | (TTE) Demographics Patient Name WILBER HERNANDEZ Room Number 456 | | EUFEMIA Patient Number [id number] Date of Study 02/13/2017 Visit Number | | [id number] Referring Physician ALLAN AMATO MD | | Number Date of 1970 Theatrical Agent SAMANTHA JUAREZ, | | [place] Age 46 year(s) | | Interpreting ALLAN AMATO MD [employer] Windows Engineer | | MONIKA COATES MD Gender | [...] LA Volume: 31.68 ml | | EF Whxqbpfob83% Left Ventricle Diastolic Dimension: | | 4.04 [...] LA Volume: 31.68 ml | | EF Mfffxuhga67% | | | | Left Ventricle | [...] | | | | | | BREANNA ([id number]) on | | | | | | [...] + | [facility] | [address] | [place] | [phone] | | [facility] | | [address] | | | - LABORATORY | | | | + + + + + PTT (02/13/2017 11:35 AM PST) + +--------+ + + + | Component | Value | Ref Range | Performed | Pathologist | | | | | At | Signature | + +--------+ + + + | aPTT | 38 (H) | 22 - 36 seconds | [facility] [...] [address] | [place] | [phone] | | [facility] | | [address] | | | - LABORATORY | | [...] [address] | [place] | [phone] | | [facility] | | [address] | | | - LABORATORY | | [...] | | | Lavender | | | [facility] | | | Top Tube | | [...] [address] | [place] | [phone] | | [facility] | | [address] | | | - LABORATORY | | [...] by | | | | | | Radha Garcia on | | | | | | 02/13/2017 at 10:35 by | | | | | | Angel Banuelos. [employer] | | | | | | [employer] | | | | | [...] [address] | [place] | [phone] | | [facility] | | [address] | | | - LABORATORY | | [...] | | | | | BREANNA ADLER ([id number]) on | | | | | | [...] : | | | 1970MEDICAL RECORD NUMBER: [id number] OF PROCEDURE: | | | 02/13/2017 | | | PRIMARY CARE | | | PROVIDER: LESLEE Cline SANITARIAN AIDE: Allan Amato MD. | | | PRE-PROCEDURE [...] site was anesthetized with 1% lidocaine. A 6-Peruvian sheath | | | was inserted into [...] 6 mos.Continue other cardiac meds.F/u with primary line lead in 2 | | | wks at [facility]. Allan Amato MD [facility] | | | CenterDATE/TIME: 02/13/2017 7:5502/13/2017 7:55 | | |was used to cut [...] cardiac meds. | | |F/u with primary line lead in 2 wks at [facility]. | | | | | |Allan Amato MD | | |[facility] | | |DATE/TIME: 02/13/2017 7:55 | | [...] ST. | [address] | [place], [place] | [phone] | | [facility] | | [address] | | | - LABORATORY | | [...] [address] | [place] | [phone] | | [facility] | | [address] | | | - LABORATORY | | [...] [address] | [place] | | | [facility] | | [address] | | | - BLOOD BANK | [...] | Top Tube | | | [facility] | | [...] [address] | [place] | [phone] | | [facility] | | [address] | | | - LABORATORY | | [...] | Top Tube | | | [facility] | | [...] [address] | [place] | [phone] | | [facility] | | [address] | | | - LABORATORY | | [...] + | [facility] | [address] | [place] | [phone] | | [facility] | | [address] | | | - LABORATORY | | [...] [address] | [place] | [phone] | | [facility] | | [address] | | | - LABORATORY | | [...] + | [facility] | [address] | [place], [place] | [phone] | | [facility] | | [address] | | | - LABORATORY | | [...] ACUTE | | | | | | SD / STEMI Abnormal | | | | | | ECGWhen compared with | | | | | | ECG of 13-FEB-2017 | | | | | | 05:12, | | | | | | (Unconfirmed)Significant | | | | | | changes have | | | | | | occurredConfirmed by | | | | | | BREANNA VILLAGOMEZ MD ([id number]) | | | | | | on [...] Note | + + | Meir, Ross Results In - 02/13/2017 9:01 AM PST [...] 23 | 22 - 36 seconds | [facility] [...] [address] | [place] | [phone] | | [facility] | | [address] | | | - LABORATORY | | [...] | Time | | seconds | [facility] | | | | | | MEDICAL | | | | | | CENTER - | | | | | | LABORATORY | | + + + + + + | INR | 0.82 (L)Comment: Usual | 0.90 - 1.10 | [facility] | | | | Oral Anticoagulation | | [facility] | | | | Range: 2.0 - [...] [address] | [place] | [phone] | | [facility] | | [address] | | | - LABORATORY | | [...] ST. | [address] | [place] | [phone] | | [facility] | | [address] | | | - LABORATORY | | [...] | | | | | | [employer] | | | | | [...] [address] | [place] | [phone] | | [facility] | | [address] | | | - LABORATORY | | [...] 18 | 7 - 18 mg/dL | [facility] | | | | | | [facility] | | | | | | MEDICAL | | | | | | CENTER - | | | | | | LABORATORY | | + + + + + + | Creatinine | 0.78 | 0.60 - 1.30 | [facility] | | | | | mg/dL | [facility] | | | | | | MEDICAL | | | | | | CENTER - | | | | | | LABORATORY | | + + + + + + | eGFR, | >60Comment: GLOMERULAR | >=60 | [place] | | | non- | FILTRATION | mL/min/1.73m2 | [facility] | | | [place] | RATE,ESTIMATED | | MEDICAL | | | | mL/min/1.89s7Onsj than | | CENTER - | | [...] | appended report. These | | [facility] | | | | results have been [...] | appended report. These | | [facility] | | | | results have been [...] | an appended report. | | [facility] | | | | These results have [...] + + + + + | [facility] | [address] | [place] | [phone] | | [facility] | | [address] | | | - LABORATORY | | [...] | | | | | g/dL | . [facility] | | | | | | [...] | Neutrophils | | K/uL | [facility] | | | | | | MEDICAL | | | | | | CENTER - | | | | | | LABORATORY | | + + + + + + | Absolute | 4.80 (H) | 0.60 - 3.20 | [facility] | | | Lymphocytes | | K/uL | [facility] | | | | | | MEDICAL | | | | | | CENTER - | | | | | | LABORATORY | | + + + + + + | Absolute | 1.10 (H) | 0.00 - 1.00 | [facility] | | | Monocytes | | K/uL | [facility] | | | | | | MEDICAL | | | | | | CENTER - | | | | | | LABORATORY | | + + + + + + | Absolute | 0.30 | 0.00 - 0.40 | [facility] | | | Eosinophils | | K/uL | [facility] | | | | | | MEDICAL | | | | | | CENTER - | | | | | | LABORATORY | | + + + + + + | Absolute | 0.20 (H) | 0.00 - 0.10 | [facility] | | | Basophils | | K/uL | [facility] | | | | [...] [address] | [place] | [phone] | | [facility] | | [address] | | | - LABORATORY | | [...] | | | | BREANNA VILLAGOMEZ MD ([id number]) | | | | | | on [...] 17 8:57 | | | | | [facility] 02/14/17 at 0900, Do not | | [...] dose on Marissa 02/14/17 at | | PM PST | | | | | 2100 | | | | | | + +-------+ +-------+---+---+ +---+---+ | | | +---+---+ + +-------+ +------+---+---+ | bumetanide (BUMEX) injection 1 | Given | 02/16/20 | 1 mg | | | | mg 1 mg, Intravenous, 2 TIMES | | 17 8:57 | | | | | DAILY, First dose on [facility] 02/14/17 | | AM PST | | [...] | | | | | dose on [place] 02/14/17 at 0900, Do | | AM PST [...] | + +---+ + +-------+ +--------+---+---+ | eptifibatide (INTEGRILIN) 2 | Given | 02/14/20 | 8.577 | | | | mg/mL injection ONCE PRN, | | 17 7:20 | mLs | | | | Starting Sat02/13/17 at 0710, | | AM PST | | | | | Intra-op | | | | | | + +-------+ +--------+---+---+ +-------+ +--------+---+---+ | Given | 02/14/20 | 8.577 | | | | | 17 7:10 | mLs | | | | | AM PST | | | | +-------+ +--------+---+---+ +---+---+ | | | +---+---+ + +-------+ +--------+---+---+ | fentaNYL (PF) injection ONCE | Given | 02/14/20 | 50 mcg | | | | PRN, Starting Sat02/13/17 at | | 17 7:39 | | | | | 0613, Intra-op | | AM PST | | | | + +-------+ +--------+---+---+ +-------+ +--------+---+---+ | Given | 02/14/20 | 50 mcg | | | | | 17 7:17 | | | | | | AM PST | | | | +-------+ +--------+---+---+ | Given | 02/14/20 | 25 mcg | | | | | 17 6:38 | | | | | | AM PST | | | | +-------+ +--------+---+---+ +---+---+ | | | +---+---+ + +-------+ +--------+---+---+ | heparin 1,000 units/mL | Given | 02/14/20 | 3,000 | | | | injection ONCE PRN, Starting Wed | | 17 6:52 | Units | | | | 02/13/17 at 0630, Intra-op | | AM PST | | | | + +-------+ +--------+---+---+ +-------+ +--------+---+---+ | Given | 02/14/20 | 4,000 | | | | | 17 6:30 | Units | | | | | AM PST | | | | +-------+ +--------+---+---+ +---+---+ | | | +---+---+ + +---------+ + + +---+ | heparin in half-normal saline | New Bag | 02/14/20 | 700 | 14 mL/hr | | | 50 units/mL infusion CONTINUOUS | | 17 7:44 | Units/hr | | | | PRN, Starting 02/13/17 at | | AM PST | | | | | 0744, Intra-op | | | | | | + [...] | | | | | | | 6379-3859 Use NIGHT DOSE for | | | | | | | doses scheduled: HS, 3AM, | | | | | | | Nighttime 7643-3377, | | | | | | + [...] | | +---+---+ + +-------+ +---------+---+---+ | iohexol (OMNIPAQUE 350) 350 | Given | 02/14/20 | 110 mLs | | | | mg/mL injection ONCE PRN, | | 17 7:38 | | | | | Starting 02/13/17 at 0738, | | AM PST | | | | | Intra-op | | | | | | + +-------+ +---------+---+---+ +---+---+ | | | +---+---+ + +-------+ +------+---+ + | lidocaine 1% injection ONCE | Given | 02/14/20 | 1 mL | | Surgical | | PRN, Starting 02/13/17 at | | 17 6:17 | | | Site | | 0617, Intra-op | | AM PST | | | | + +-------+ +------+---+ + +---+---+ | | | +---+---+ + +-------+ +--------+---+---+ | lisinopril (PRINIVIL, ZESTRIL) | Given | 02/16/20 | 2.5 mg | | | | tablet 2.5 mg 2.5 mg, Oral, | | 17 8:48 | | | | | DAILY, First dose on [facility] 02/14/17 | | AM PST | | | | | at 1530 | | | | | | + +-------+ +--------+---+---+ +-------+ +--------+---+---+ | Given | 02/15/20 | 2.5 mg | | | | | 17 4:16 | | | | | | PM PST | | | | +-------+ +--------+---+---+ +---+---+ | | | +---+---+ + +-------+ +------+---+---+ | midazolam (VERSED) 1 mg/mL | Given | 02/14/20 | 1 mg | | | | injection ONCE PRN, Starting Wed | | 17 6:51 | | | | | 02/13/17 at 0613, Intra-op | | AM PST | | | | + +-------+ +------+---+---+ +-------+ +--------+---+---+ | Given | 02/14/20 | 0.5 mg | | | | | 17 6:38 | | | | | | AM PST | | | | +-------+ +--------+---+---+ | Given | 02/14/20 | 1 mg | | | | | 17 6:26 | | | | | | AM PST | | | | +-------+ +--------+---+---+ +---+---+ | | | +---+---+ + +-------+ +--------+---+---+ | midazolam (VERSED) 1 mg/mL | Given | 02/14/20 | 0.5 mg | | | | injection ONCE PRN, Starting Wed | | 17 7:20 | | | | | 02/13/17 at 0720, Intra-op | | AM PST | | | | + +-------+ +--------+---+---+ [...] PST | | | | +-------+ +------+---+---+ + +---+ | | | + +---+ [...] | | | + +---+ + +-------+ +---------+---+---+ | nitroglycerin 100 mcg/mL | Given | 02/14/20 | 200 mcg | | | | syringe ONCE PRN, Starting Wed | | 17 7:27 | | | | | 02/13/17 at 0727, Intra-op | | AM PST | | | | + +-------+ +---------+---+---+ +---+---+ | | | +---+---+ + + + +---------+---------+---+ | nitroglycerin in [...] +---+---+ | | | +---+---+ + +-------+ +---+---+---+ | nitroglycerin in dextrose 200 | Given | 02/14/20 | | | | | mcg, verapamil 2 mg in heparin | | 17 6:16 | | | | | 2,000 Units CVL mixture ONCE | | AM PST | | | | | PRN, Starting 02/13/17 at | | | | | | | 0616, Intra-op | | | | | | + +-------+ +---+---+---+ +---+---+ | | | +---+---+ + +-------+ +------+---+---+ | ondansetron (ZOFRAN) injection | Given | 02/14/20 | 4 mg | | | | 4 mg 4 mg, Intravenous, EVERY 6 | | 17 2:52 | | | | | HOURS PRN, Nausea, Vomiting, | | PM PST | | | | | Starting [facility] 02/13/17 at 1344 | | | | | | + +-------+ +------+---+---+ +---+---+ | | | +---+---+ + +-------+ +-------+---+---+ | oxyCODONE (ROXICODONE) tablet | Given | 02/16/20 | 10 mg | | | | 10 mg 10 mg, Oral, EVERY 6 HOURS | | 17 1:09 | | | | | PRN, Pain, Starting [facility] 02/14/17 | | PM PST | | [...] | | +---+---+ + +-------+ +-------+---+---+ | ticagrelor (BRILINTA) tablet | Given | 02/14/20 | 90 mg | | | | ONCE PRN, Starting 02/13/17 | | 17 7:50 | | | | | at 0750, Intra-op | | AM PST | | | | + +-------+ +-------+---+---+ +---+---+ | | | +---+---+ documented in this encounter
--- OUTSIDE RECORDS SUMMARY | ~2019-10-16 | XMS | Encounter Summary ---
Demographics + + + | Address | [address] | | | [place] [address] | + + + | Home Phone [...] [place] | | | | | [address] | | + + + + + | Bebe Terrazas | ECON | Unknown | Unavailable | + + + + + | Arden Terrazas | ECON | Unknown | | + + + + + Care Team Providers + +------+ + | Care Delivery Route Driver Name | Role | Phone | + +------+ + | Crissy Santoyo PA-C | PCP | | + +------+ + Encounter Details +--------+ + + + + | Date | Type | Department | Care Team | Description | +--------+ + + + + | 06/03/ | Business Reporter | [facility] | Kirk Sawyer, | Malignant neoplasm | | 2018 | | Clinics at S | MD [address] | of lung, unspecified | | | | [facility] [address] | [place], [place] | laterality, | | | | [facility] for | [address] | unspecified part of | | | | Health and Healing, | [phone] | lung (HCC) (Primary | | | | [address] | | Dx) | | | | [place], [place] | | | | | | [address] | | | | | | [phone] | | | +--------+ + + + [...] OF | R Deric, | | | ([id number], | | PATHOLOGY | ,PhD on | [...] at | | | | | | [facility] | | | | | | [...] [facility] | | | Received | Institution: [facility] | | DEPARTMENT | | | | [facility], | | OF | | | | [place], [place] | | PATHOLOGY | | | | [id number] Accession | | | | | | Number: [id number] | | | | | | Collection [...] | + + + + + | [facility] | [address] | [place] [address] | | | PATHOLOGY | [address] | | | + + + + + documented in this encounter Visit Diagnoses + + | Diagnosis | + + | Malignant neoplasm of lung, unspecified laterality, unspecified part of lung (HCC) - | | Primary | + + documented in this encounter"
--- OUTSIDE RECORDS SUMMARY | ~2019-10-16 | XMS | Encounter Summary ---
Demographics + + + | Address | [address] | | | [place] [address] | + + + | Home Phone [...] [place] | | | | | [address] | | + + + + + | Bebe Terrazas | ECON | Unknown | Unavailable | + + + + + | Arden Terrazas | ECON | Unknown | | + + + + + Care Team Providers + +------+ + | Care Griddle Attendant Name | Role | Phone | [...] Record | | 2018 | | at [facility] [address] | | Review | | | | [facility] | | | | | | Health and Healing, | | | | | | [facility] | | | | | | Floor [place], [place] | | | | | | [address] | | | | | | [phone] | | | +--------+ + + + [...] needed if being seen for abnormal ECG [facility] 07/2017 Epic N/A Last Echo images and report [facility] 06/2017 Attached Last Stress Test images and report n/a n/a Last Cardiac Catheterization images and report Kris Campos 06/2013 Cew Last Holter or Event monitor report only n/a n/a N/A Labs (BMP, Lipids, TSH, Hemoglobin A1C in last 6 months) [facility] 07/2017 attached N/A Last Device Check (schedule [...]
--- OUTSIDE RECORDS SUMMARY | ~2019-10-16 | XMS | Encounter Summary ---
Demographics + + + | Address | [address] | | | [place] [address] | + + + | Home Phone [...] [place] | | | | | [address] | | + + + + + | Bebe Terrazas | ECON | Unknown | Unavailable | + + + + + | Arden Terrazas | ECON | Unknown | | + + + + + Care Team Providers + +------+ + | Care Enterprise Sales Person Name | Role | Phone | + [...] + + | 06/09/ | Telephone | [facility] Primary Care | Yuriy Cardenas, | Medication | | 2019 | | at [place] [address] | [place] [address] | management (insulin | | | | [address] | [address] | syringe) | | | | [place], [place] | [place], [place] | | | | | [address] | [address] | | | | | [phone] | [phone] | | | | | | | [...]
--- OUTSIDE RECORDS SUMMARY | ~2019-10-16 | XMS | Encounter Summary ---
Demographics + + + | Address | [address] | | | [place] [address] | + + + | Home Phone [...] + + + | Author | [facility] | + + + | Organization | [facility] | + + + | Address [...] #[address] | | | | | [address] | | + + + + + | Bebe Terrazas | ECON | Unknown | Unavailable | + + + + + | Arden Terrazas | ECON | Unknown | | + + + + + Care Team Providers + +------+ + | Care Social Media Designer Name | Role | Phone | + +------+ + | Yuriy Cardenas PA-C | PCP | | + +------+ + Encounter Details +--------+ + + + + | Date | Type | Department | Care Team | Description | +--------+ + + + + | 07/17/ | Telephone | [facility] Primary Care | Yuriy Cardenas, | | | 2018 | | at [place] [address] | PA-C [address] | | | | [address] | [address] | | | | | [facility] [place], [place] | [place], [place] | | | | | [address] | [address] | | | | | [phone] | [phone] | | | | | | | [...]
--- OUTSIDE RECORDS SUMMARY | ~2019-10-16 | XMS | Encounter Summary ---
Demographics + + + | Address | [address] | | | [place] [address] | + + + | Home Phone [...] [place] | | | | | [address] | | + + + + + | Bebe Terrazas | ECON | Unknown | Unavailable | + + + + + | Arden Terrazas | ECON | Unknown | | + + + + + Care Team Providers + +------+ + | Care Rolled Glass Crosscutter Name | Role | Phone | + [...] [address] | | | | | [facility] for | [place], [place] | | | | | Health and Healing, | [address] | | | | | [facility] | [phone] | | | | | [place], [place] | | | | | | [address] | | | | | | [phone] | | | +--------+--------+ + + + [...]
--- OUTSIDE RECORDS SUMMARY | ~2019-10-16 | XMS | Encounter Summary ---
Demographics + + + | Address | [address] | | | [place] [address] | + + + | Home Phone [...] [place] | | | | | [address] | | + + + + + | Bebe Terrazas | ECON | Unknown | Unavailable | + + + + + | Arden Terrazas | ECON | Unknown | | + + + + + Care Team Providers + +------+ + | Care Front End Loader Driver Name | Role | Phone | [...] | Malignant | Yuriy Mcgill PA-C | [facility] [address] | | | | | neoplasm of | [address] | | | | | unspecified | [address] | Center for | | | | | part of left | Rd | Health and | | | | | bronchus or | [place], | Healing, | | | | | lung | [place] | [address] | | | | | | [address] | [place], [place] | | | | | | Phone: | [address] | | | | | | [phone] | Phone: | | | | | | Fax: | [phone] | | | | | | [phone] | Fax: | | | | | | | [phone] | +--------+--------+ + + + + Encounter [...] | | | [facility] [address] | [place], [place] | (HCC) (Primary Dx) | | | | [facility] for | [address] | | | | | Health and Healing, | [phone] | | | | | [address] | | | | | | [place], [place] | | | | | | [address] | | | | | | [phone] | | | +--------+---------+ + + + [...] ectomy (LN stations 5,6,7,9, and 10) at [place], [place]. She received no adjuvant chemo or [...] believe this is related t o previous SC and intentional weight loss rather than tumor [...] Surgery took p kim on 06/22/2017 at [facility] in [place], [place] with final path showing pT1c pN0, M0 and she received no adjuvant chemotherapy. She has been under surveillance wit h her PCP and has no evidence of disease recurrence. Most recent chest and abdomen CT I spent 21 minutes with the patient and her . I explained the rationale for long-te rm survival. More than 50% of my time was spent in ohum-vm-xhzs counseling with the patient as well as coordination of care. 1 0:54 AM PDTdocumented in this encounter Plan of Treatment Not on filedocumented as of this encounter Visit Diagnoses + + | Diagnosis | + + | Non-small cell cancer of left lung (HCC) - Primary | + + documented in this encounter"
--- OUTSIDE RECORDS SUMMARY | ~2019-10-16 | XMS | Encounter Summary ---
Demographics + + + | Address | [address] | | | [place] [address] | + + + | Home Phone [...] [place] | | | | | [address] | | + + + + + | Bebe Terrazas | ECON | Unknown | Unavailable | + + + + + | Arden Terrazas | ECON | Unknown | | + + + + + Care Team Providers + +------+ + | Care Knockup Worker Name | Role | Phone | [...] + + | 02/16/ | Telephone | [facility] Primary Care | Yuriy Cardenas, | Refill Request | | 2017 | | at [place] [address] | [facility] [address] | | | | | [facility] | [facility] | | | | | [facility] [place], [place] | [place], [place] | | | | | [address] | [address] | | | | | [phone] | [phone] | | | | | | | [...]
--- OUTSIDE RECORDS SUMMARY | ~2019-10-16 | XMS | Encounter Summary ---
Demographics + + + | Address | [address] | | | [place] [address] | + + + | Home Phone [...] [id number] [place] | | | | | [address] | | + + + + + | Bebe Terrazas | ECON | Unknown | Unavailable | + + + + + | Arden Terrazas | ECON | Unknown | | + + + + + Care Team Providers + +------+ + | Care Plastic Installer Name | Role | Phone | [...] [address] | | | | | [facility] | [address] | | | | | Hospital Admitting | [place], [place] | | | | | Desk Located on the | [address] | | | | | 9th floor | [phone] | | | | | [place], [place] | | | | | | [address] | Hollie Small MD | | | | | | [address] | | | | | | [address] | | | | | | [place], [place] | | | | | | [address] | | | | | | [phone] | | | | | | | [...] Fentanyl 300 mcg Hydromorphone 2mg To [employer] medical device sales consultant | | | 7 | Handoff | [...]
--- OUTSIDE RECORDS SUMMARY | ~2019-10-16 | XMS | Encounter Summary ---
Demographics + + + | Address | [address] | | | [place] [address] | + + + | Home Phone [...] [place] | | | | | [address] | | + + + + + | Bebe Terrazas | ECON | Unknown | Unavailable | + + + + + | Arden Terrazas | ECON | Unknown | | + + + + + Care Team Providers + +------+ + | Care Taxi Truck Driver Name | Role | Phone | [...] Sadie | | | | | | [place], [place] | | | | | | [address] | | | +--------+ + + + [...]
--- OUTSIDE RECORDS SUMMARY | ~2019-10-16 | XMS | Encounter Summary ---
Demographics + + + | Address | [address] | | | [place] [address] | + + + | Home Phone [...] #[place], [place] | | | | | [address] | | + + + + + | Bebe Merino | ECON | Unknown | Unavailable | + + + + + | Arden Hammondi | ECON | Unknown | | + + + + + Care Team Providers + +------+ + | Care Luncheonette Operator Name | Role | Phone | + +------+ + | Crissy Santoyo PA-C | PCP | | + +------+ + Encounter Details +--------+ + + + + | Date | Type | Department | Care Team | Description | +--------+ + + + + | 05/21/ | Office | [facility] | Other, Faculty | Progress Note | | 2013 | Visit-Trans | [address] | [phone] | | | | cribed | [place], [place] | | | | | | [address] | | | +--------+ + + + [...] Barger. Recently had an L3-L4-L5 fusion by [facility] 12/23/2013, Dr. Amin. Has a follow up [...] oxycodone [address] [place] in [place] previouslyprescribed. Denies sedati on, constipation, or negative [...] Oral TID Problem List: Medical Obesity / [id number] / Confirmed Histories Past Medical History: Include past medical history Resolved Lumbar and Lumbosacral Fusion of the Posterior Column, Posterior Technique (81.07): [facility] ed. Family History: Include family history Emphysema Mother Asthma Mother Family Sister Arrhythmia Family Anemia Sister High blood pressure Family Arthritis Mother Depression Mother DM - Diabetes mellitus Mother Glaucoma Sister Procedure/Surgery History: Include procedure/surgery history Breast reduction (736784280) in 2001 at 31 Years. Laparoscopic cholecystectomy (69151033). section (74073870). Nasalseptoplasty (28119477). Social History Social history (ST). Social & Psychosocial Habits No Data Available Smoking Status : Exposure to Tobacco Smoke. 05/21/2013 14:21 PDT Exposure to Tobacco Smoke Never smoker Physical Examination VS/Measurements Vital Signs/Measurement Progress Note-PN 05/21/2013 14:21 PDTHeight/Length Anicqovm061 cmWeight Gqxlxnzr092 kgTemperature Oral36.6 D egCPeripheral Pulse Rate89 bpmRespiratory Rate14 breaths/minuteSystolic Blood Jozfigiu259 mm Hg HIDiastolic Blood Uuoeexsz19 mmHg HIMean Arterial Pressure, Lmvz327 mmHgPrimary Pain Lo cationBack Primary Pain Intensity6 , , Vitals Temp BP MAP Pulse RR SpO2 FIO2 05/21 14:21 36.6 150/96 114 89 14 --- --- Vital Signs are the last 20 in the past 24 hours. Measurements from flowsheet : Measurements 05/21/2013 14:21 PDTHeight/Length Wfxbvwpo745 cmWeight Vonlmkvx341 kgBody Mass Index Measur ed35.86 m2 General: [...] No deformity. Normal gait. Integumentary: Warm, Dry, Vander[place]. Neurologic: Alert, Oriented, Cranial Nerves II-XIIare grossly [...] Custom Preventative Care for Adults - Female ([id number]), Ronna Rodriguez Within 3 months Schedule for PAP. Counseled: Patient, Spouse, Regarding diagnosis, Regarding treatment, Regarding medicatio ns, Diet, Verbalized understanding. 12:0 6 PM PDTdocumented in this encounter Plan of Treatment Not on filedocumented as of this encounter Visit Diagnoses Not on filedocumented in this encounter
--- OUTSIDE RECORDS SUMMARY | ~2019-10-16 | XMS | Encounter Summary ---
Demographics + + + | Address | [address] | | | [place] [address] | + + + | Home Phone [...] #[place] | | | | | [address] | | + + + + + | Bebe Terrazas | ECON | Unknown | Unavailable | + + + + + | Arden Terrazas | ECON | Unknown | | + + + + + Care Team Providers + +------+ + | Care Accountant Supervisor Name | Role | Phone | [...] + + | 04/10/ | Telephone | [facility] | Yuriy Cardenas, | Lab Results | | 2019 | | at [place] [address] | PA-C [address] | | | | [address] | [facility] | | | | | [facility] [place], [place] | [place], [place] | | | | | [address] | [address] | | | | | [phone] | [phone] | | | | | | | [...]
--- OUTSIDE RECORDS SUMMARY | ~2019-10-16 | XMS | Encounter Summary ---
Demographics + + + | Address | [address] | | | [place] [address] | + + + | Home Phone [...] #[place] | | | | | [address] | | + + + + + | Bebe Terrazas | ECON | Unknown | Unavailable | + + + + + | Arden Terrazas | ECON | Unknown | | + + + + + Care Team Providers + +------+ + | Care Film Washer Name | Role | Phone | [...] + + | 02/21/ | Telephone | [facility] | Yuriy Cardenas, | Medication requested | | 2017 | | at [place] [address] | PA-C [address] | | | [address] | [facility] | | | | | [facility] [place], [place] | [place], [place] | | | | | [address] | [address] | | | | | [phone] | [phone] | | | | | | | [...]
--- OUTSIDE RECORDS SUMMARY | ~2019-10-16 | XMS | Encounter Summary ---
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[place], [place] | | | | | chris | [place], | [address] | | | | | syndrome | [place] | Phone: | | | | | Procedures | [address] | [phone] | | | | | CONSULT TO | Phone: | Fax: | | | | | NEUROSURGERY | [phone] | [phone] | | | | | IN NEW | Fax: | | | | | | PATIENT | [phone] | | | | | | LEVEL V IN | | | | | | | [...] + + | 07/09/ | Telephone-S | [facility] | Yuriy Cardenas, | Diabetes mellitus; | | 2020 | cheduled | at [place] [address] | PA-C [id number] | HTN - Hypertension; | | | | [address] | [address] | Chronic pain | | | | [place], [place] | [place], [place] | | | | | [address] | [address] | | | | | [phone] | [phone] | | | | | | | [...] Chronic pain HPI: Because of being in [place] dealing with her sister's and cleaning out [...] with long-term current use of ins andrew ([facility]) E11.42 LEVEMIR U-100 INSULIN 100 unit/mL subcutaneous solution Z79.4 insulin aspart U-100 100 unit/mL subcutaneous solution losartan 50 mg oral tablet 2. Atherosclerosis of [place] coronary artery of [place] heart with stable angina pectoris (H CC) [...] due to in family, [place] in [place] due to follow up from this, and [...] Primary | + + | Atherosclerosis of [place] coronary artery of [place] heart with stable angina pectoris | | [...]
--- OUTSIDE RECORDS SUMMARY | ~2019-10-16 | XMS | Encounter Summary ---
Demographics + + + | Address | [address] | | | [place] [address] | + + + | Home Phone | | + + + | Preferred Language | Unknown | + + + | Marital Status | | + + + | Catholic Affiliation | PRE | + + + | Race | White | + + + | Ethnic Group | Not or | + + + Author + + + | Author | [facility] | + + + | Organization | [facility] | + + + | Address [...] #[address] | | | | | [address] | | + + + + + | Bebe Terrazas | ECON | Unknown | Unavailable | + + + + + | Arden Nini | ECON | Unknown | | + + + + + Care Team Providers + +------+ + | Care Permastone Mechanic Name | Role | Phone | [...] | | | | | [address] [facility] | [place], [place] | | | | | Health and Healing, | [address] | | | | | [facility] | [phone] | | | | | floor [place], [place] | | | | | | [address] | | | | | | [phone] | | | +--------+ + + + [...]
--- OUTSIDE RECORDS SUMMARY | ~2019-10-16 | XMS | Encounter Summary ---
Demographics + + + | Address | [address] | | | [place] [address] | + + + | Home Phone [...] #[place] | | | | | [address] | | + + + + + | Bebe Terrazas | ECON | Unknown | Unavailable | + + + + + | Arden Nini | ECON | Unknown | | + + + + + Care Team Providers + +------+ + | Care Repair Department Manager Name | Role | Phone | [...] | | | | | Physician's | [place], [place] | | | | | [place], [facility] floor | [address] | | | | | [place], [place] | [phone] | | | | | [address] | | | | | | [phone] | | | +--------+ + + + [...]
--- OUTSIDE RECORDS SUMMARY | ~2019-10-16 | XMS | Encounter Summary ---
Demographics + + + | Address | [address] | | | [place] [address] | + + + | Home Phone [...] [address] | Unavailable | | | | #[place], [place] | | | | | [address] | | + + + + + | Bebe Terrazas | ECON | Unknown | Unavailable | + + + + + | Arden Hammondi | ECON | Unknown | | + + + + + Care Team Providers + +------+ + | Care Part Time Receptionist Name | Role | Phone | + [...]
--- OUTSIDE RECORDS SUMMARY | ~2019-10-16 | XMS | Encounter Summary ---
Demographics + + + | Address | [address] | | | [place] [address] | + + + | Home Phone [...] #[place] | | | | | [address] | | + + + + + | Bebe Terrazas | ECON | Unknown | Unavailable | + + + + + | Arden Terrazas | ECON | Unknown | | + + + + + Care Team Providers + +------+ + | Care Manager Music Name | Role | Phone | + [...] | Radiology | Diagnoses | [place], | [place] | | | | | Lumbar | Sivakumar Hernandez MD | Health & | | | | | radiculopath | [address] | [employer] | | | | | y Lumbar | Ave | [address] | | | | | disc | [place], [place] | [facility] | | | | | herniation | [address] | ROAD | | | | | with | Phone: | [place], [place] | | | | | radiculopath | [phone] | [address] | | | | | y | Fax: | Phone: | | | | | Procedures | [phone] | [phone] | | | | | MRI SPINE [...] | | | [facility] for | [place], [place] | | | | | Health and Healing, | [address] | | | | | [facility] | [phone] | | | | | floor [place], [place] | | | | | | [address] | | | | | | [phone] | | | +--------+ + + + [...]
[~2019-10-16 23:55] MED LIST changes: +AUGMENTIN 875-1 EACH PO; +CEFPODOXIME PR200 MG PO; +TESSALON PERLE100 MG PO
--- OUTSIDE RECORDS SUMMARY | 2019-10-16 23:58 | XMS ---
PreManage Notification: MARY MERINO Security Chief Safety Officer Events No recent Security Events currently on file CRITERIA MET - Group Notification - PDMP CARE PROVIDERS DONG WALL Nurse Practitioner: Family 02/17/2018-Current PHONE: [phone] Dayanna has no Care Guidelines for this patient. Care History Medical/Surgical 02/17/2018 [facility] - PLEASE REFER PATIENT TO THE WALK CLINIC- PATIENT HAS NO SHOWED TO MULTIPLE PCP APTS AND THEN COMES INTO THE ED AND OR WALK IN. - Patient is currently established with [facility]. If patient is seen in the ED during business hours. Please contact CHWs at [facility]. Care Recommendation: This patient has had 5 or more Emergency Department visits in the last 12 months.\T\nbsp; Patient requires education on the scope and purpose of the ED as an acute care provider not a Primary Care Provider and should not be utilized for chronic conditions.\T\nbsp; These are guidelines and the provider should exercise clinical judgment when providing care. 05/01/2017 [facility] Care Recommendation: This patient has had 5 or more Emergency Department visits in the last 12 months. Patient requires education on the scope and purpose of the ED as an acute care provider not a Primary Care Provider and should not be utilized for chronic conditions. If patient returns to ED please contact Community Health WorkerDora at [phone]. These are guidelines and the provider should exercise clinical judgment when providing care. E.D. VISIT COUNT (12 MO.) 1 [facility] TOTAL 1 NOTE: Visits indicate total known visits. ED/UCC VISIT TRACKING (12 MO.) 10/16/2019 23:56 [facility] [place] TYPE: Emergency COMPLAINT: - SOB,COUGH INPATIENT VISIT TRACKING (12 MO.) No inpatient visits to display in this time frame [email or web address]
--- NOTE | 2019-10-17 17:36 | EKG ---
[facility] [address] [place] [address] Signed Sinus tachycardia Possible Inferior infarct (cited on or before 01-MAR-2017) Anterior infarct (cited on or before 01-MAR-2017) Abnormal ECG When compared with ECG of 01-MAR-2017 10:22, Questionable change in QRS axis T wave inversion no longer evident in Anterolateral leads Confirmed by MARCIAL SABA DO ([id number]) on 10/17/2019 5:35:52 PM Electronically Signed By: MARCIAL SABA DO 10/17/19 1736 PATIENT NAME: MARY MERINO Electrocardiogram DATE OF : 70 PHYSICIAN: MARCIAL SABA DO REPORT #: [id number] REPORT IS CONFIDENTIAL AND NOT TO BE RELEASED WITHOUT AUTHORIZATION
== END 2019-10-17 01:50 | disposition home or self-care (01) ==
LOC: ED 23:55
DX: J06.9 Acute upper respiratory infection, unspecified (principal); M79.671 Pain in right foot; M79.672 Pain in left foot; E11.9 Type 2 diabetes mellitus without complications; I10 Essential (primary) hypertension; J45.909 Unspecified asthma, uncomplicated; Z20.828 Contact with and (suspected) exposure to other viral communicable diseases; Z87.891 Personal history of nicotine dependence; Z88.8 Allergy status to other drugs, medicaments and biological substances; Z91.040 Latex allergy status; Z88.5 Allergy status to narcotic agent; Z88.2 Allergy status to sulfonamides; Z79.899 Other long term (current) drug therapy; Z79.4 Long term (current) use of insulin; Z79.82 Long term (current) use of aspirin; Z79.01 Long term (current) use of anticoagulants
CPT/HCPCS: 71045; 80053; 83735; 83880; 84484; 85025; 93005; 93010; 99285-25; C9803